=== PATIENT | female | born 1975 | race Caucasian/White ===

== ENCOUNTER 2019-09-23 14:25 | Emergency (ER) | payer OTHER, SELFPAY ==
--- NOTE | ~2019-09-23 | XR_ITS ---
EXAMINATION: XR chest 1V portable INDICATION: Chest pain and cough TECHNIQUE: Portable AP chest at 1846 hours COMPARISON: 08/21/2019 FINDINGS: The lungs are free of acute opacities. There is no pleural effusion or pneumothorax. The ca rdiac silhouette is normal for technique. A dual-lead cardiac pacemaker of the left chest wall ends w ith leads in expected locations. IMPRESSION: 1. No acute cardiopulmonary abnormality. Reviewed, dictated and finalized at location A. RANCE OFFICER
[2019-09-23 14:37] VITALS: BP 123/66; PULSE 94; RESP 16; TEMP 36.4; O2SAT 100
--- NOTE | 2019-09-23 16:01 | ED.URI ---
HPI - URI/Sore Throat General Chief Complaint: Upper Respiratory Infection Stated Complaint: Cough/congestion Time Seen by Provider: 09/23/19 16:01 Source: patient Mode of arrival: ambulatory Limitations: no limitations History of Present Illness HPI Narrative: A 43 y/o female presents to the ED with c/o upper CP that radiates to her right and left side of her body that began 30 minutes prior to her arrival. Pt states it feels like an elephant is sitting on my chest. Pt was seen in the ED for the same complaints on 08/21/2019 but her pain now is worse. 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 Pt notes that she has a PSHx of pacemaker placement 5 years ago after pt had an episode in April 2015 where her heartbeat dropped below 25 BPM and she went unconscious. Pt states that she has had a cough for 5 years since her pacemaker was placed. Pt notes that she had a normal angiogram in the past. Pt also has a PMHx of a PE and is on Warfarin. She reports hot and cold flashes, but denies smoking, alcohol use, and drug use. Pt's LNMP was Thursday (4 days ago). Pt also c/o SI stating that she wants to hurt herself with whatever I can get a hold of like pills. Pt does not see a psychiatrist. Pt was seen in 2005 at [place] for SI and has also been seen at [facility]. Related Data Home Medications Medication Instructions Recorded Confirmed alprazolam 1 mg PO TID 06/15/19 06/15/19 gabapentin 600 mg PO TID 06/15/19 06/15/19 lisinopril 20 mg PO DAILY 06/15/19 06/15/19 oxycodone-acetaminophen 1 tablet PO TID 06/15/19 06/15/19 albuterol sulfate [ProAir HFA] INHALATION 08/21/19 atorvastatin 20 mg PO DAILY 08/21/19 gabapentin 300 mg PO TID 08/21/19 glipizide 20 mg PO BID 08/21/19 omeprazole 20 mg PO DAILY 08/21/19 Allergies Allergy/AdvReac Type Severity Reaction Status Date / Time lidocaine Allergy Intermediate HIVES Verified 08/21/19 10:23 nitroglycerin Allergy Intermediate HIVES Verified 08/21/19 10:23 aspirin Allergy Mild Hives Verified 08/21/19 10:23 ibuprofen Allergy Mild Hives Verified 08/21/19 10:23 Penicillins Allergy Mild HIVES PER Verified 08/21/19 10:23 UNCODED ALLERGIES 08/27/12 tramadol Allergy Mild Hives Verified 08/21/19 10:23 doxycycline Allergy Unknown Hives Verified 08/21/19 10:23 meloxicam Allergy Unknown HIVES Verified 08/21/19 10:23 Sulfa (Sulfonamide Allergy Unknown HIVES PER Verified 08/21/19 10:23 Antibiotics) UNCODED ALLERGIES 08/27/12 sulfamethoxazole Allergy Unknown Hives Verified 08/21/19 10:23 trimethoprim Allergy Unknown Hives Verified 08/21/19 10:23 adhesive AdvReac Unknown SILK TAPE= Verified 08/21/19 10:23 HIVES CITALOPRAM HYDROBROMIDE Allergy Mild RASH Uncoded 08/21/19 10:23 ESCITALOPRAM OXALATE Allergy Mild Hives Uncoded 08/21/19 10:23 PROCAINE HCL Allergy Mild Hives Uncoded 08/21/19 10:23 PROPOXYPHENE NAPSYLATE Allergy Mild RASH/HIVES Uncoded 08/21/19 10:23 [facility] Past Medical History Medical History (Updated 08/22/19 @ 00:01 by Junior Richter) Diabetes mellitus GERD (gastroesophageal reflux disease) Hyperlipidemia Obesity Pulmonary embolism Social History Social History Smoking status: Never smoker Alcohol intake: never Gender identity (if verbalized by the patient): Female Course Vital Signs Vital signs: Vital Signs Temperature 36.4 C L 09/23/19 14:37 Pulse Rate 94 09/23/19 14:37 Respiratory Rate 16 09/23/19 14:37 Blood Pressure 123/66 09/23/19 14:37 Pulse Oximetry 100 09/23/19 14:37 Temperature 36.4 C L 09/23/19 14:37 Pulse Rate 94 09/23/19 14:37 Respiratory Rate 16 09/23/19 14:37 Blood Pressure 123/66 09/23/19 14:37 Pulse Oximetry 100 09/23/19 14:37 Discharge Plan Discharge Prescriptions: No Action alprazolam 1 mg tablet 1 mg PO TID RF: 0 lisinopril 20 mg tablet 20 mg PO DAILY RF: 0 oxycodone-acetaminophen 5-325 mg tablet
--- NOTE | 2019-09-23 16:11 | ECG_ITS ---
Measurements Intervals [place] Rate: 84 P: 54 NC: 152 QRS: 19 QRSD: 94 T: 17 QT: 348 QTc: 412 Interpretive Statements SINUS RHYTHM BORDERLINE R WAVE PROGRESSION, ANTERIOR LEADS BASELINE ARTIFACT- I, II, III, V6 BORDERLINE ECG Electronically Signed On 09-23-2019 17:17:37 WAREHOUSE CLERK by Kalin Castorena D.O.
--- NOTE | 2019-09-23 16:24 | ED.CHESTPAIN ---
HPI - Chest Pain General Chief Complaint: Psychiatric Symptoms <Keyla Kenny MD - Last Filed: 09/24/19 18:19> Stated Complaint: Cough/congestion <Keyla Kenny MD - Last Filed: 09/24/19 18:19> Time Seen by Provider: 09/23/19 16:01 <Keyla Kenny MD - Last Filed: 09/24/19 18:19> Source: patient <Keyla Kenny MD - Last Filed: 09/24/19 18:19> Mode of arrival: ambulatory <Keyla Kenny MD - Last Filed: 09/24/19 18:19> Limitations: no limitations <Keyla Kenny MD - Last Filed: 09/24/19 18:19> History of Present Illness HPI narrative: A 43 y/o female presents to the ED with c/o upper CP that radiates to her right and left side of her body that began 30 minutes prior to her arrival. Pt states it feels like an elephant is sitting on my chest. Pt was seen in the ED for the same complaints on 08/21/2019 but her pain now is worse. 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 Pt notes that she has a PSHx of pacemaker placement 5 years ago after pt had an episode in April 2015 where her heartbeat dropped below 25 BPM and she went unconscious. Pt states that she has had a cough for 5 years since her pacemaker was placed. Pt notes that she had a normal angiogram in the past. Pt also has a PMHx of a PE and is on Warfarin. She reports hot and cold flashes, but denies smoking, alcohol use, and drug use. Pt's LNMP was Thursday (4 days ago). Pt also c/o SI stating that she wants to hurt herself with whatever I can get a hold of like pills. Pt does not see a psychiatrist. Pt was seen in 2005 at [place] for SI and has also been seen at [facility]. <Keyla Kenny MD - Last Filed: 09/24/19 18:19> Pertinent past history: other (pacemaker) <Keyla Kenny MD - Last Filed: 09/24/19 18:19> Pain location: other (upper) <Keyla Kenny MD - Last Filed: 09/24/19 18:19> Pain radiation: other (right and left side of body) <Keyla Kenny MD - Last Filed: 09/24/19 18:19> Related Data Home Medications: Home Medications Medication Instructions Recorded Confirmed alprazolam 1 mg PO TID 06/15/19 06/15/19 gabapentin 600 mg PO TID 06/15/19 06/15/19 lisinopril 20 mg PO DAILY 06/15/19 06/15/19 oxycodone-acetaminophen 1 tablet PO TID 06/15/19 06/15/19 albuterol sulfate [ProAir HFA] INHALATION 08/21/19 atorvastatin 20 mg PO DAILY 08/21/19 gabapentin 300 mg PO TID 08/21/19 glipizide 20 mg PO BID 08/21/19 omeprazole 20 mg PO DAILY 08/21/19 sitagliptin [Januvia] 100 mg PO BID 09/24/19 <Keyla Kenny MD - Last Filed: 09/24/19 18:19> Allergies/Adverse Reactions: Allergies Allergy/AdvReac Type Severity Reaction Status Date / Time lidocaine Allergy Intermediate HIVES Verified 09/23/19 16:28 nitroglycerin Allergy Intermediate HIVES Verified 09/23/19 16:28 aspirin Allergy Mild Hives Verified 09/23/19 16:28 ibuprofen Allergy Mild Hives Verified 09/23/19 16:28 Penicillins Allergy Mild HIVES PER Verified 09/23/19 16:28 UNCODED ALLERGIES 08/27/12 tramadol Allergy Mild Hives Verified 09/23/19 16:28 doxycycline Allergy Unknown Hives Verified 09/23/19 16:28 meloxicam Allergy Unknown HIVES Verified 09/23/19 16:28 Sulfa (Sulfonamide Allergy Unknown HIVES PER Verified 09/23/19 16:28 Antibiotics) UNCODED ALLERGIES 08/27/12 sulfamethoxazole Allergy Unknown Hives Verified 09/23/19 16:28 trimethoprim Allergy Unknown Hives Verified 09/23/19 16:28 adhesive AdvReac Unknown SILK TAPE= Verified 09/23/19 16:28 HIVES CITALOPRAM HYDROBROMIDE Allergy Mild RASH Uncoded 08/21/19 10:23 ESCITALOPRAM OXALATE Allergy Mild Hives Uncoded 08/21/19 10:23 PROCAINE HCL Allergy Mild Hives Uncoded 08/21/19 10:23 PROPOXYPHENE NAPSYLATE Allergy Mild RASH/HIVES Uncoded 08/21/19 10:23 <Keyla Kenny MD - Last Filed: 09/24/19 18:19> Review of Systems Review of Systems: All systems reviewed & are unremarkable except as noted in HPI and below <Jm
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
[2019-09-23 17:14] LABS: Basophils Absolute Auto 0.1 K/mm3 (0.0-0.1); Basophils Percent Auto 0.7 % (0.2-1.2); Eosinophils Absolute Auto 0.2 K/mm3 (0-0.3); Eosinophils Percent Auto 2.2 % (0-4.4); Hematocrit 44.7 % (37.0-47.0); Hemoglobin 14.6 g/dL (12.0-15.0); Immature Granulocyte Absolute 0.04 K/mm3 (0.00-0.031); Immature Granulocyte Percent A 0.6 % (0-0.5); Lymphocytes Absolute Auto 1.78 K/mm3 (0.9-3.2); Lymphocytes Percent Auto 24.5 % (18.3-44.2); Mean Corpuscular HGB Conc 32.7 g/dl (32-36); Mean Corpuscular Hemoglobin 28.7 pg (26-34); Mean Corpuscular Volume 87.8 fl (80-100); Mean Platelet Volume 10.9 fl (7.4-10.4); Monocytes Absolute Auto 0.4 K/mm3 (0.1-0.6); Monocytes Percent Auto 5.1 % (2.6-8.5); Neutrophils Absolute Auto 4.9 K/mm3 (1.3-6.7); Neutrophils Percent Auto 66.9 % (45.5-73.1); Platelet Count Result 295 k/mm3 (150-375); Red Blood Count 5.09 M/mm3 (4.2-5.4); Red Cell Distribution Width 12.9 % (11.5-14.5); White Blood Count 7.3 K/mm3 (4.5-10.0)
--- NOTE | 2019-09-23 17:15 | PC.NURSE ---
met with pt to asses situation. pt says she has SI with a plan to overdose on pills if he had them no access to pills pt noted to be malingering and loitering around the hospital prior to arrival to ED.
[2019-09-23 17:28] LABS: Alanine Aminotransferase 15 U/L (4-35); Albumin Level 4.2 g/dL (3.5-5.1); Alkaline Phosphatase 81 U/L (38-126); Aspartate Amino Transferase 17 U/L (14-36); Bilirubin,Total 0.3 mg/dL (0.2-1.3); Blood Urea Nitrogen 26 mg/dL (7-17); Calcium 9.9 mg/dL (8.4-10.2); Carbon Dioxide 25 mmol/L (22-30); Chloride 96 mmol/L (98-107); Estimated Glomerular Filt Rate > 60; Glucose 494 mg/dL (65-105); INR 0.8; Potassium 5.1 mmol/L (3.4-5.0); Sodium 136 mmol/L (137-145)
[2019-09-23 17:29] LABS: Partial Thromboplastin Time 22.4 SECONDS (22.3-36.8)
[2019-09-23 17:40] LABS: Troponin I < 0.012 ng/mL (0.000-0.034)
[2019-09-23 17:42] LABS: Ethanol < 10 mg/dL (<10)
--- NOTE | 2019-09-23 18:15 | PC.NURSE ---
pt in room, eating dinner, no other needs at this time sitter at bedside
[2019-09-23 18:17] LABS: Amphetamine Screen Urine Negative (Negative); Barbiturate Screen Urine Negative (Negative); Benzodiazepines Screen Urine Negative (Negative); Cannabinoid Screen Urine Negative (Negative); Cocaine Screen Urine Negative (Negative); Methadone Screen Urine Negative (Negative); Opiate Screen Urine Negative (Negative); Phencyclidine Screen Urine Negative (Negative)
[2019-09-23 19:00] VITALS: BP 142/78; PULSE 88; RESP 16; O2SAT 98
[2019-09-23] MEDS: glipiZIDE 5 MG TABLET 20 MG PO (19:00)
--- NOTE | 2019-09-23 19:10 | PC.NURSE ---
lights dimmed, watching tv, no needs at this time sitter at bedside
--- NOTE | 2019-09-23 19:36 | PC.NURSE ---
called crisis [phone] they will send someone out to evaluate pt.
[2019-09-23 19:50] LABS: Troponin I < 0.012 ng/mL (0.000-0.034)
--- NOTE | 2019-09-23 20:20 | PC.NURSE ---
awaiting crisis, in room calm, asked for pain med new order for tylenol 650 mg po one time from dr vilchis
--- NOTE | 2019-09-23 20:54 | PC.NURSE ---
assumed care of the pt at 1700
[2019-09-23] MEDS: ACETAMINOPHEN 325 MG TABLET 650 MG (21:36)
--- NOTE | 2019-09-23 23:02 | PC.NURSE ---
awaiting response from [facility] labs and ekg sent to [facility] per their request. pt in room resting, chest rise and fall noted, sitter at bedside
--- NOTE | 2019-09-23 23:45 | PC.NURSE ---
Intake nurse from [facility] called to gather more information on pt.
--- NOTE | 2019-09-23 23:56 | PC.NURSE ---
Makenna at [facility] stated that Dr. Prater will not accept pt.
[2019-09-24 01:35] LABS: Glucose Point of Care 315 (65-105)
[2019-09-24 02:08] VITALS: BP 106/68; PULSE 72; RESP 18; O2SAT 99
--- NOTE | 2019-09-24 03:22 | PC.NURSE ---
assumed care of pt at this time, recieved report from melany goldstein
--- NOTE | 2019-09-24 03:26 | PC.NURSE ---
ekg done 09/23/2019 1755 prior to this rn getting here, not documented.
--- NOTE | 2019-09-24 03:29 | PC.NURSE ---
pt states she just urinated, not able to give urine sample at this time. sitter at bedside.
--- NOTE | 2019-09-24 04:27 | PC.NURSE ---
pt states she isn't able to urinate at this time. notified. sitter at bedside.
--- NOTE | 2019-09-24 05:06 | PC.NURSE ---
pt still unable to give urine sample at this time. refused straight cath.
--- NOTE | 2019-09-24 05:48 | PC.NURSE ---
[facility] called to check on pt status. this rn informed them we are waiting on pt to urinate so we can run a UA and bedside preg and then fax them over the results. pt in bed at this time. sitter at bedside. pt states she isn't able to urinate. refused straight cath.
[2019-09-24 06:00] VITALS: BP 116/82; PULSE 75; RESP 16; O2SAT 95
--- NOTE | 2019-09-24 06:42 | PC.NURSE ---
[facility] called this rn and states they don't have any beds available. notified.
--- NOTE | 2019-09-24 06:42 | PC.NURSE ---
pt in room at this time. sitter at bedside.
--- NOTE | 2019-09-24 07:03 | PC.NURSE ---
this rn called room service for tray at this time.
[2019-09-24 07:21] LABS: Glucose Point of Care 204 (65-105)
[2019-09-24] MEDS: glipiZIDE 5 MG TABLET 20 MG PO (07:44)
[2019-09-24 08:36] LABS: Add Urine Microscopic? YES; Appearance Urine Clear (Clear); Bilirubin Urine Negative (Negative); Blood Urine Negative (Negative); Color Urine Straw (Yellow); Glucose Urine UA 3+ mg/dL (Negative); Ketones Urine Negative (Negative); Leukocyte Esterase Ur Negative LEU/UL (Negative); Mucus Urine Rare /lpf; Nitrate Urine Negative (Negative); Protein Urine Negative (Negative); Specific Grav Ur 1.021 (1.001-1.035); Urobilinogen Urine Negative mg/dL (<2.0); WBC Urine 0-3 /hpf
--- NOTE | 2019-09-24 09:24 | PC.NURSE ---
[facility] notified that pt has been denied by [facility].
--- NOTE | 2019-09-24 13:07 | PC.NURSE ---
called to patients room and asked what the wait was. Patient denies suicidal or homicidal ideations at this time.
== END 2019-09-24 16:35 | disposition home or self-care (01) ==
PROVIDERS: General Practice; Emergency Provider Emergency Medicine; PCP Internal Medicine
DX: R07.89 Other chest pain (principal); R45.851 Suicidal ideations; F41.9 Anxiety disorder, unspecified; M19.90 Unspecified osteoarthritis, unspecified site; F31.9 Bipolar disorder, unspecified; J44.9 Chronic obstructive pulmonary disease, unspecified; Z86.718 Personal history of other venous thrombosis and embolism; G40.909 Epilepsy, unspecified, not intractable, without status epilepticus; K21.9 Gastro-esophageal reflux disease without esophagitis; I10 Essential (primary) hypertension; E78.5 Hyperlipidemia, unspecified; Z86.14 Personal history of Methicillin resistant Staphylococcus aureus infection; Z95.0 Presence of cardiac pacemaker; E11.42 Type 2 diabetes mellitus with diabetic polyneuropathy; E66.9 Obesity, unspecified; Z68.34 Body mass index [BMI] 34.0-34.9, adult; G47.30 Sleep apnea, unspecified; Z87.440 Personal history of urinary (tract) infections; Z96.653 Presence of artificial knee joint, bilateral; Z79.84 Long term (current) use of oral hypoglycemic drugs; R94.31 Abnormal electrocardiogram [ECG] [EKG]
CPT/HCPCS: 36415; 71045; 80053; 80307; 81001; 81025; 82948; 84443; 84484; 85025; 85610; 85730; 93005; 99284; A9270

== ENCOUNTER 2019-11-14 14:41 | Emergency (ER) | payer OTHER, SELFPAY ==
[2019-11-14 14:48] VITALS: BP 148/75; PULSE 94; RESP 18; TEMP 36.2; O2SAT 98
--- NOTE | 2019-11-14 15:06 | ED.GENADULT ---
HPI - General Adult General Chief complaint: Unspecified <SASHA Shrestha Last Filed: 11/14/19 15:21> Stated complaint: toothache on right jaw. <SASHA Shrestha Last Filed: 11/14/19 15:21> Time Seen by Provider: 11/14/19 14:55 <SASHA Shrestha Last Filed: 11/14/19 15:21> Source: patient <SASHA Shrestha Last Filed: 11/14/19 15:21> Mode of arrival: ambulatory <SASHA Shrestha Last Filed: 11/14/19 15:21> Limitations: no limitations <SASHA Shrestha Last Filed: 11/14/19 15:21> History of Present Illness HPI narrative: Patient is a 43-year-old who presents with several days duration of right lower dental pain where she has a history of decay patient denies any fever chills nausea vomiting patient notes moderate aching pain worse with eating patient took cods-hwn-nrfbrwi medications with minimal improvement and notes that she has a scheduled dental appointment in the near future <SASHA Shrestha Last Filed: 11/14/19 15:21> Related Data Home medications: Home Medications Medication Instructions Recorded Confirmed alprazolam 1 mg PO TID 06/15/19 06/15/19 gabapentin 600 mg PO TID 06/15/19 06/15/19 lisinopril 20 mg PO DAILY 06/15/19 06/15/19 oxycodone-acetaminophen 1 tablet PO TID 06/15/19 06/15/19 albuterol sulfate [ProAir HFA] INHALATION 08/21/19 atorvastatin 20 mg PO DAILY 08/21/19 gabapentin 300 mg PO TID 08/21/19 glipizide 20 mg PO BID 08/21/19 omeprazole 20 mg PO DAILY 08/21/19 sitagliptin [Januvia] 100 mg PO BID 09/24/19 <SASHA Shrestha Last Filed: 11/14/19 15:21> Allergies/adverse reactions: Allergies Allergy/AdvReac Type Severity Reaction Status Date / Time lidocaine Allergy Intermediate HIVES Verified 09/23/19 16:28 nitroglycerin Allergy Intermediate HIVES Verified 09/23/19 16:28 aspirin Allergy Mild Hives Verified 09/23/19 16:28 ibuprofen Allergy Mild Hives Verified 09/23/19 16:28 Penicillins Allergy Mild HIVES PER Verified 09/23/19 16:28 UNCODED ALLERGIES 08/27/12 tramadol Allergy Mild Hives Verified 09/23/19 16:28 doxycycline Allergy Unknown Hives Verified 09/23/19 16:28 meloxicam Allergy Unknown HIVES Verified 09/23/19 16:28 Sulfa (Sulfonamide Allergy Unknown HIVES PER Verified 09/23/19 16:28 Antibiotics) UNCODED ALLERGIES 08/27/12 sulfamethoxazole Allergy Unknown Hives Verified 09/23/19 16:28 trimethoprim Allergy Unknown Hives Verified 09/23/19 16:28 adhesive AdvReac Unknown SILK TAPE= Verified 09/23/19 16:28 HIVES CITALOPRAM HYDROBROMIDE Allergy Mild RASH Uncoded 08/21/19 10:23 ESCITALOPRAM OXALATE Allergy Mild Hives Uncoded 08/21/19 10:23 PROCAINE HCL Allergy Mild Hives Uncoded 08/21/19 10:23 PROPOXYPHENE NAPSYLATE Allergy Mild RASH/HIVES Uncoded 08/21/19 10:23 <Gregorio Austin PA-C - Last Filed: 11/14/19 15:21> Review of Systems Review of Systems: All systems reviewed & are unremarkable except as noted in HPI and below <Gregorio Austin PA-C - Last Filed: 11/14/19 15:21> PMFSH Past Medical History Medical History: Medical History Anemia Anxiety Arthritis Asthma Bipolar disorder COPD (chronic obstructive pulmonary disease) Depression Diabetes mellitus DVT (deep venous thrombosis) Eczema Epilepsy Foot fracture, right GERD (gastroesophageal reflux disease) Herniated disc HTN (hypertension) Hyperlipidemia MRSA (methicillin resistant staph aureus) culture positive Obesity Pacemaker Peripheral neuropathy Pulmonary embolism Seizures Sleep apnea Suicide attempt Ulcer UTI (urinary tract infection) <Gregorio Austin PA-C - Last Filed: 11/14/19 15:21> Social History Social History: Social History Smoking status: Former smoker Alcohol intake: never Substance use: former Gender identity (if verbalized b
[2019-11-14 15:27] VITALS: BP 129/78; PULSE 78; RESP 18; O2SAT 96
== END 2019-11-14 15:28 | disposition home or self-care (01) ==
PROVIDERS: Emergency Provider General Practice; PCP Internal Medicine
DX: K08.89 Other specified disorders of teeth and supporting structures (principal); E11.42 Type 2 diabetes mellitus with diabetic polyneuropathy; J44.9 Chronic obstructive pulmonary disease, unspecified; G40.909 Epilepsy, unspecified, not intractable, without status epilepticus; I10 Essential (primary) hypertension; E78.5 Hyperlipidemia, unspecified; K21.9 Gastro-esophageal reflux disease without esophagitis; G47.30 Sleep apnea, unspecified; F31.9 Bipolar disorder, unspecified; F41.9 Anxiety disorder, unspecified; Z86.14 Personal history of Methicillin resistant Staphylococcus aureus infection; M19.90 Unspecified osteoarthritis, unspecified site; Z86.718 Personal history of other venous thrombosis and embolism; Z95.0 Presence of cardiac pacemaker; Z86.711 Personal history of pulmonary embolism; Z87.440 Personal history of urinary (tract) infections; Z86.2 Personal history of diseases of the blood and blood-forming organs and certain disorders involving the immune mechanism; Z87.891 Personal history of nicotine dependence; E66.9 Obesity, unspecified; Z68.35 Body mass index [BMI] 35.0-35.9, adult; Z79.84 Long term (current) use of oral hypoglycemic drugs
CPT/HCPCS: 99283

== ENCOUNTER 2020-01-05 15:15 | Emergency (ER) | payer OTHER, SELFPAY ==
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
[2020-01-05 15:16] VITALS: BP 136/80; PULSE 94; RESP 16; TEMP 37; O2SAT 98
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
[2020-01-05] MEDS: ACETAMINOPHEN 500 MG TABLET 1000 MG PO (15:39)
[2020-01-05] MEDS: DIAZEPAM 5 MG TABLET PO (15:39)
== END 2020-01-05 17:34 | disposition home or self-care (01) ==
PROVIDERS: Emergency Provider Emergency Medicine; PCP Internal Medicine
DX: S16.1XXA Strain of muscle, fascia and tendon at neck level, initial encounter (principal); S39.012A Strain of muscle, fascia and tendon of lower back, initial encounter; Z79.84 Long term (current) use of oral hypoglycemic drugs; E11.42 Type 2 diabetes mellitus with diabetic polyneuropathy; I10 Essential (primary) hypertension; F41.9 Anxiety disorder, unspecified; F31.9 Bipolar disorder, unspecified; J45.909 Unspecified asthma, uncomplicated; Z96.653 Presence of artificial knee joint, bilateral; Z87.891 Personal history of nicotine dependence; V63.6XXA Passenger in heavy transport vehicle injured in collision with car, pick-up truck or van in traffic accident, initial encounter
CPT/HCPCS: 99284; 72100; 72125; A9270

== ENCOUNTER 2020-01-20 14:58 | Emergency (ER) | payer OTHER, SELFPAY ==
--- NOTE | ~2020-01-20 | CT_ITS ---
EXAMINATION: CT lumbar spine wo con DATE: 01/20/2020 17:09 INDICATION: Low back pain. TECHNIQUE: Computed tomography (CT) of the lumbar spine was performed without intravenous contrast. A utomated exposure control and iterative reconstruction technique were employed. The dose-length produ ct was 1075.63 mGy-cm. COMPARISON: CT abdomen and pelvis 06/15/2019, lumbar spine radiographs 01/05/2020 FINDINGS: Bone alignment is normal. There are Schmorl's nodes of the superior endplates of T12-L3. In tervertebral disc heights are normal. The osseous central spinal canal is developmentally small from L2 to L4. The following disc levels are specifically discussed: L1-L2: The disc does not extend beyond the endplate margin. There is mild bilateral facet joint osteo arthritis. There is no neural foraminal stenosis. There is no central canal stenosis. L2-L3: The disc is bulging. There is mild bilateral facet joint osteoarthritis. There is mild bilater al neural foraminal stenosis. There is mild central canal stenosis. L3-L4: The disc is bulging. There is mild bilateral facet joint osteoarthritis. There is mild bilater al neural foraminal stenosis. There is mild central canal stenosis. L4-L5: The disc is bulging. There is mild bilateral facet joint osteoarthritis. There is mild left ne ural foraminal stenosis. There is no central canal stenosis. L5-S1: The disc is bulging. There is mild bilateral facet joint osteoarthritis. There is mild left ne ural foraminal stenosis. There is mild central canal stenosis. IMPRESSION: 1. Mild lumbar spondylosis. Reviewed, dictated and finalized at location A. IMPRESSION: 1. Mild lumbar spondylosis.
--- NOTE | ~2020-01-20 | XR_ITS ---
EXAMINATION: XR hip LT min 3V w AP pelvis DATE: 01/20/2020 17:20 INDICATION: Left hip pain. TECHNIQUE: An anteroposterior view of the pelvis and 3 views of left hip were obtained. COMPARISON: None. FINDINGS: Bone alignment is normal. No fracture. There is mild osteoarthritis of the hips. IMPRESSION: 1. Mild osteoarthritis of the hips. Reviewed, dictated and finalized at location A.
[2020-01-20 15:07] VITALS: BP 151/90; PULSE 80; TEMP 36.8; O2SAT 99
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
[2020-01-20] MEDS: ACETAMINOPHEN 500 MG TABLET 1000 MG PO (17:22)
== END 2020-01-20 18:44 | disposition home or self-care (01) ==
PROVIDERS: Emergency Provider Emergency Medicine; PCP Internal Medicine
DX: S39.012A Strain of muscle, fascia and tendon of lower back, initial encounter (principal); E11.42 Type 2 diabetes mellitus with diabetic polyneuropathy; J44.9 Chronic obstructive pulmonary disease, unspecified; Z86.718 Personal history of other venous thrombosis and embolism; K21.9 Gastro-esophageal reflux disease without esophagitis; I10 Essential (primary) hypertension; E78.5 Hyperlipidemia, unspecified; G47.30 Sleep apnea, unspecified; F41.9 Anxiety disorder, unspecified; F31.9 Bipolar disorder, unspecified; E66.9 Obesity, unspecified; Z68.34 Body mass index [BMI] 34.0-34.9, adult; G40.909 Epilepsy, unspecified, not intractable, without status epilepticus; Z86.14 Personal history of Methicillin resistant Staphylococcus aureus infection; Z79.84 Long term (current) use of oral hypoglycemic drugs; Z87.440 Personal history of urinary (tract) infections; Z95.0 Presence of cardiac pacemaker; Z86.711 Personal history of pulmonary embolism; Z96.653 Presence of artificial knee joint, bilateral; Z87.891 Personal history of nicotine dependence; M47.816 Spondylosis without myelopathy or radiculopathy, lumbar region; M16.0 Bilateral primary osteoarthritis of hip; V63.6XXA Passenger in heavy transport vehicle injured in collision with car, pick-up truck or van in traffic accident, initial encounter
CPT/HCPCS: 72131; 73502; 96372; 99284; A9270; J3360

== ENCOUNTER 2020-02-12 16:03 | Inpatient (IN) | payer OTHER, SELFPAY ==
[2020-02-12] VITALS (11 sets, daily range): BP systolic 100–143; BP diastolic 54–87; PULSE 72–91; RESP 15–22; TEMP 36.6–36.8; O2SAT 97–99; BMI 34.7
--- NOTE | ~2020-02-12 | NM_ITS ---
EXAMINATION: NM pulmonary perfusion DATE: 02/13/2020 11:56 INDICATION: Dyspnea. Prior pulmonary embolism. TECHNIQUE: 5.5 mCi Tc-99m MAA by intravenous route. Scintigraphic images of the chest were obtained . COMPARISON: FINDINGS: There is relatively homogeneous perfusion throughout the lungs with no discrete perfusion defects. IMPRESSION: 1. Normal study. Reviewed, dictated and finalized at location A. IMPRESSION: 1. Normal study.
--- NOTE | ~2020-02-12 | XR_ITS ---
XR chest 1V portable DATE: 02/12/2020 17:29 INDICATION: Chest pain. TECHNIQUE: Portable upright AP chest on 02/12/2020 at 1722 hours COMPARISON: 09/23/2019 portable AP chest FINDINGS: Left-sided pacemaker with leads overlying right atrium and right ventricle. Heart size is not optimally evaluated on AP projection because of magnification. The lungs are clear of infiltrate or consolidation. No pleural effusion or pulmonary vascular congestion or pneumothorax. IMPRESSION: Left-sided pacemaker device No active pulmonary disease Reviewed, dictated and finalized at location A.
--- NOTE | ~2020-02-12 | US_ITS ---
EXAMINATION: US carotid duplex BI DATE: 02/16/2020 16:47 INDICATION: Ataxia TECHNIQUE: Grayscale, color Doppler, and pulsed Doppler images of the cervical carotid arteries were obtained. The degree of vessel stenosis is placed in one of the following categories: normal, <50%, 5 0-69%, >=70% but less than near-occlusion, near-occlusion, or total occlusion. Note that percent sten osis relative to normal distal artery lumen diameter is indirectly measured from velocity measurement s as described by Gerardo, et al. Radiology 2003; 229:340-346. Notes: Normal: Peak systolic velocity <125 centimeters/sec and no plaque <50%. Peak systolic velocity <125 ( EDV <40; ICA/CCA PSV ratio <2.0; used these factors only a tandem lesions or low cardiac output or co ntralateral disease) 50-69 %: PSV 125-230 (EDV 40-100; ratio 2-4) >= 70% but less than near occlusion: PSV greater than 230 (EDV > 100; ratio> 4.0) Near Occlusion: PSV that is variable; markedly narrowed lumen Occlusion: Absent flow on color/spectral Doppler and no lumen on maguire scale. COMPARISON: None. FINDINGS: RIGHT: The right common carotid artery (CCA) peak systolic velocity (PSV) is 70 cm/s. The right internal car otid artery (ICA) PSV is 73 cm/s. The right ICA end-diastolic velocity (EDV) is 19 cm/s. The right IC A/CCA PSV ratio is 1. The external carotid artery (ECA) PSV is 68 cm/s. There is antegrade flow in th e right vertebral artery. LEFT: The left CCA PSV is 90 cm/s. The left ICA PSV is 79 cm/s. The left ICA EDV is 27 cm/s. The left ICA/C CA PSV ratio is 0.9. The ECA PSV is 87 cm/s. There is antegrade flow in the left vertebral artery. IMPRESSION: 1. Less than 50% stenosis in the right internal carotid artery by sonographic criteria. 2. Less than 50% stenosis in the left internal carotid artery by sonographic criteria. Reviewed, dictated and finalized at location A. IMPRESSION: 1. Less than 50% stenosis in the right internal carotid artery by sonographic jose frank. 2. Less than 50% stenosis in the left internal carotid artery by sonographic crista berry.
--- NOTE | ~2020-02-12 | CT_ITS ---
EXAMINATION: CT brain wo con DATE: 02/17/2020 13:26 INDICATION: Dizziness. TECHNIQUE: Computed tomography (CT) of the head was performed without intravenous contrast. The mA wa s adjusted according to patient size. Iterative reconstruction technique was employed. The dose-lengt h product was 605.33 mGy-cm. COMPARISON: Head CT 04/13/2019 FINDINGS: There is no intracranial hemorrhage, acute infarction, or abnormal intracranial mass lesion . The ventricles are normal in size. There is mild mucosal thickening in the ethmoid sinuses. The orb its are normal. The mastoid air cells are normal. IMPRESSION: 1. Normal brain. Reviewed, dictated and finalized at location A. IMPRESSION: 1. Normal brain.
--- NOTE | 2020-02-12 16:41 | ED.GENADULT ---
HPI - General Adult General Chief complaint: Chest Pain <Gerardo Lawrence MD - Last Filed: 02/21/20 14:53> Stated complaint: cp/abd pain/diarrhea <Gerardo Lawrence MD - Last Filed: 02/21/20 14:53> Time Seen by Provider: 02/12/20 16:26 <Gerardo Lawrence MD - Last Filed: 02/21/20 14:53> History of Present Illness HPI narrative: She reports that she is falling apart . Shortly before coming in she developed chest pain, abdominal pain, nausea, vomiting, diarrhea. She has been seen with similar complaints on a number of occasions. She also c/o a spider bite on her left heal. <Gerardo Lawrence MD - Last Filed: 02/21/20 14:53> Related Data Home medications: Home Medications Medication Instructions Recorded Confirmed lisinopril 20 mg PO DAILY 06/15/19 02/12/20 albuterol sulfate [ProAir HFA] 2 puff INHALATION Q4H PRN 08/21/19 02/12/20 atorvastatin 20 mg PO DAILY 08/21/19 02/12/20 glipizide 10 mg PO DAILY 08/21/19 02/12/20 omeprazole 20 mg PO DAILY 08/21/19 02/12/20 Januvia 100 mg PO DAILY 09/24/19 02/12/20 fluticasone propionate 1 spray INTRANASAL BID 02/12/20 02/12/20 gabapentin 800 mg PO QID 02/12/20 02/12/20 glycopyrrolate 1 mg PO DAILY PRN 02/12/20 02/12/20 pioglitazone 30 mg PO DAILY 02/12/20 02/12/20 levetiracetam [Keppra] 500 mg PO BID 02/14/20 02/14/20 <Gerardo Lawrence MD - Last Filed: 02/21/20 14:53> Allergies/adverse reactions: Allergies Allergy/AdvReac Type Severity Reaction Status Date / Time lidocaine Allergy Intermediate HIVES Verified 02/12/20 16:20 nitroglycerin Allergy Intermediate HIVES Verified 02/12/20 16:20 aspirin Allergy Mild Hives Verified 02/12/20 16:20 citalopram Allergy Mild Rash Verified 02/15/20 20:35 escitalopram Allergy Mild Hives Verified 02/15/20 20:38 ibuprofen Allergy Mild Hives Verified 02/12/20 16:20 Penicillins Allergy Mild HIVES PER Verified 02/12/20 16:20 UNCODED ALLERGIES 08/27/12 procaine Allergy Mild Hives Verified 02/15/20 20:39 propoxyphene Allergy Mild Hives Verified 02/15/20 20:41 tramadol Allergy Mild Hives Verified 02/12/20 16:20 doxycycline Allergy Unknown Hives Verified 02/12/20 16:20 meloxicam Allergy Unknown HIVES Verified 02/12/20 16:20 Sulfa (Sulfonamide Allergy Unknown HIVES PER Verified 02/12/20 16:20 Antibiotics) UNCODED ALLERGIES 08/27/12 sulfamethoxazole Allergy Unknown Hives Verified 02/12/20 16:20 trimethoprim Allergy Unknown Hives Verified 02/12/20 16:20 adhesive AdvReac Unknown SILK TAPE= Verified 02/12/20 16:20 HIVES <Gerardo Lawrence MD - Last Filed: 02/21/20 14:53> Review of Systems Review of Systems: All systems reviewed & are unremarkable except as noted in HPI and below <Gerardo Lawrence MD - Last Filed: 02/21/20 14:53> Constitutional: Constitutional: Denies fever(s) <Gerardo Lawrence MD - Last Filed: 02/21/20 14:53> Cardiovascular: Cardiovascular: Reports chest pain and Denies radiating jaw, neck or arm pain <Gerardo Lawrence MD - Last Filed: 02/21/20 14:53> Respiratory: Respiratory: Reports dyspnea <Gerardo Lawrence MD - Last Filed: 02/21/20 14:53> Gastrointestinal: Gastrointestinal: Reports abdominal pain, Reports diarrhea, Reports nausea and Reports vomiting <Gerardo Lawrence MD - Last Filed: 02/21/20 14:53> Genitourinary: Genitourinary: Reports dysuria <Gerardo Lawrence MD - Last Filed: 02/21/20 14:53> Neurologic: Reports weakness <Gerardo Lawrence MD - Last Filed: 02/21/20 14:53> PMFSH Past Medical History Medical History: Medical History Anemia Anxiety Arthritis Asthma Bipolar disorder COPD (chronic obstructive pulmonary disease) Depression Diabetes mellitus DVT (deep venous thrombosis) Eczema Epilepsy Foot fracture, right GERD (gastroesophageal reflux disease) Herniated disc HTN (hypertension) Hyperlipidemia MRSA (methicillin resistant staph aureus) culture
[2020-02-12] MEDS: CLINDAMYCIN HCL 150 MG CAP 300 MG PO (17:00)
[2020-02-12 17:51] LABS: Basophils Percent Auto 0.3 % (0.2-1.2); Eosinophils Absolute Auto 0.3 K/mm3 (0-0.3); Eosinophils Percent Auto 1.8 % (0-4.4); Hematocrit 42.7 % (37.0-47.0); Hemoglobin 14.4 g/dL (12.0-15.0); Immature Granulocyte Absolute 0.07 K/mm3 (0.00-0.031); Immature Granulocyte Percent A 0.5 % (0-0.5); Lymphocytes Absolute Auto 1.84 K/mm3 (0.9-3.2); Lymphocytes Percent Auto 13.2 % (18.3-44.2); Mean Corpuscular HGB Conc 33.7 g/dl (32-36); Mean Corpuscular Hemoglobin 28.8 pg (26-34); Mean Corpuscular Volume 85.4 fl (80-100); Monocytes Absolute Auto 0.9 K/mm3 (0.1-0.6); Monocytes Percent Auto 6.2 % (2.6-8.5); Neutrophils Absolute Auto 10.9 K/mm3 (1.3-6.7); Platelet Count Result 255 k/mm3 (150-375)
[2020-02-12 17:59] LABS: INR 0.9; Prothrombin Time 11.3 Seconds (11.1-14.7)
[2020-02-12 18:00] LABS: Partial Thromboplastin Time 21.1 SECONDS (22.3-36.8)
[2020-02-12 18:06] LABS: Alanine Aminotransferase 13 U/L (4-35); Albumin Level 3.9 g/dL (3.5-5.1); Alkaline Phosphatase 86 U/L (38-126); Aspartate Amino Transferase 16 U/L (14-36); Bilirubin,Total 0.2 mg/dL (0.2-1.3); Blood Urea Nitrogen 20 mg/dL (7-17); Calcium 9.2 mg/dL (8.4-10.2); Carbon Dioxide 22 mmol/L (22-30); Chloride 100 mmol/L (98-107); Estimated Glomerular Filt Rate > 60; Glucose 515 mg/dL (65-105); Lipase 101 U/L (23-300); Potassium 4.5 mmol/L (3.4-5.0); Sodium 130 mmol/L (137-145)
[2020-02-12] MEDS: LOPERAMIDE HCL 2 MG CAPSULE 4 MG PO (18:07)
[2020-02-12 18:13] LABS: Troponin I < 0.012 ng/mL (0.000-0.034)
[2020-02-12] MEDS: INSULIN HUMAN REGULAR (*BKC) 100 UNITS/ML 10 UNITS IV PUSH (18:16)
[2020-02-12] MEDS: SODIUM CHLORIDE 0.9% IV 1,000 ML 999 ML IV CONT (18:17)
[2020-02-12 19:34] LABS: Glucose Point of Care 254 (65-105)
[2020-02-12 19:35] LABS: Magnesium 1.9 mg/dL (1.6-2.3)
--- NOTE | 2020-02-12 19:37 | ECG_ITS ---
Measurements Intervals [place] Rate: 89 P: 50 MT: 155 QRS: 14 QRSD: 81 T: 24 QT: 346 QTc: 422 Interpretive Statements SINUS RHYTHM LOW QRS VOLTAGE IN PRECORDIAL LEADS BASELINE ARTIFACT- I, III, AVR, AVL, AVF BORDERLINE ECG Electronically Signed On 02-12-2020 20:45:43 CDT by Kalin Castorena D.O.
[2020-02-12] MEDS: AMIODARONE 150 MG/D5W 100 ML 150 MG/100 ML BAG 600 MG IV CONT (19:45)
--- NOTE | 2020-02-12 19:54 | PC.NURSE ---
PT STATES SHE THINKS HER PACER IS METRONIC. ATTEMPTED TO INTERROGATE, UNABLE TO FIND HER DEVICE. STATES SHE DOES NOT HAVE HER PACER CARD. DR RAE NOTIFIED
[2020-02-12] MEDS: AMIODARONE 360 MG/D5W 200 ML 360 MG/200 ML BAG 33.3 MG IV CONT (20:02)
[2020-02-12] MEDS: ENOXAPARIN 80 MG/0.8 ML SYRINGE 79 MG SUB-Q (20:03)
--- NOTE | 2020-02-12 20:47 | PC.NURSE ---
PT HAD A SHORT RUN OF VTACH. ALERT AND ORIENTED ASYMPTOMATIC. DR RAE NOTIFIED
[2020-02-12 20:51] LABS: Troponin I < 0.012 ng/mL (0.000-0.034)
--- NOTE | 2020-02-12 21:25 | PM.IMHP ---
H&P: HPI History of Present Illness Chief complaint: Chest pain, abd pain, diarrhea Narrative: This is a 44 year old morbidly obese Diabetic female on chronic coumadin therapy secondary to pulmonary emboli who presented to the hospital today with a complaint of chest pain while sitting at her friends house. She also complains of having abdominal cramping today with associated diarrhea, nausea, and vomiting. The patient claims she has been taking her medications as prescribed. Today she also reports a sore on her left heal which she believes is secondary to a spider bite. While in the ER the patient had several runs of Vtach on telemetry. The patient is known to have a pacemaker that was placed secondary to bradycardia. She was also found to have an elevated blood glucose of 151. Her INR came back at 0.9. Cardiology was consulted by ER provider and Amiodarone was started. She also received a dose of clindamycin. She is complaining of diffuse body aches. She denies any fevers, chills, shortness of breath, dysuria, hematuria, rectal bleeding or worsening LE swelling. No other complaints. Review of Systems Review of Systems: All systems reviewed & are unremarkable except as noted in HPI and below PMFSH Past Medical History Medical History Anemia Anxiety Arthritis Asthma Bipolar disorder COPD (chronic obstructive pulmonary disease) Depression Diabetes mellitus DVT (deep venous thrombosis) Eczema Epilepsy Foot fracture, right GERD (gastroesophageal reflux disease) Herniated disc HTN (hypertension) Hyperlipidemia MRSA (methicillin resistant staph aureus) culture positive Obesity Pacemaker Peripheral neuropathy Pulmonary embolism Seizures Sleep apnea Suicide attempt Ulcer UTI (urinary tract infection) Surgical History Surgical History History of bilateral knee replacement History of cholecystectomy Family History Family History Mother Heart disease Acute myocardial infarction Uterine cancer Social History Social History Smoking packs per day: 2.5 Smoking cigarettes per day: 50.0 Years smoked: 9 Smoking pack-years: 22.50 Smoking status: Former smoker Tobacco type: cigarettes Second hand tobacco smoke exposure: Yes Alcohol intake: never Substance use: never Gender identity (if verbalized by the patient): Female Spiritual care concerns: Yes (Father Adriano (anglican)) Meds Home Medications and Allergies Home Medications Medication Instructions Recorded Confirmed Type alprazolam 1 mg PO TID PRN 06/15/19 02/12/20 History lisinopril 20 mg PO DAILY 06/15/19 02/12/20 History oxycodone-acetaminophen 1 tablet PO TID PRN 06/15/19 02/12/20 History albuterol sulfate [ProAir HFA] 2 puff INHALATION Q4H PRN 08/21/19 02/12/20 History atorvastatin 20 mg PO DAILY 08/21/19 02/12/20 History glipizide 10 mg PO DAILY 08/21/19 02/12/20 History omeprazole 20 mg PO DAILY 08/21/19 02/12/20 History sitagliptin [Januvia] 100 mg PO DAILY 09/24/19 02/12/20 History acetaminophen 500 mg PO Q4-6H PRN #7 tablet 11/14/19 02/12/20 Rx clindamycin HCl 150 mg PO Q8H 10 Days #30 cap 11/14/19 02/12/20 Rx fluticasone propionate 1 spray INTRANASAL BID 02/12/20 02/12/20 History gabapentin 400 mg PO TID 02/12/20 02/12/20 History gabapentin 800 mg PO QID 02/12/20 02/12/20 History glycopyrrolate 1 mg PO DAILY PRN 02/12/20 02/12/20 History pioglitazone 30 mg PO DAILY 02/12/20 02/12/20 History topiramate 100 mg PO DAILY 02/12/20 02/12/20 History warfarin 7.5 mg PO DAILY 02/12/20 02/12/20 History Allergies Allergy/AdvReac Type Severity Reaction Status Date / Time lidocaine Allergy Intermediate HIVES Verified 02/12/20 16:20 nitroglycerin Allergy Intermediate HIVES Verified 02/12/20 16:20 aspirin Allergy Mild Hives Verified 02/11
[2020-02-12 22:17] LABS: Glucose Point of Care 259 (65-105)
--- NOTE | 2020-02-12 22:21 | ADMGEN ---
This patient, Valerie Nguyen, was admitted to Intensive Care Unit-7 on 02/12/2020 at 2155. Patient/family oriented to hospital policies and general routines including ID bracelet, bed and alarms, visiting hours, pain management, procedures, bathroom and other care routines, personal items, smoking policy, room service/diet, and visiting hours. Valuables list has been completed. Information on how to activate the Rapid Response Team has been discussed. Patient/Family are encouraged to report perceived risks to care and to ask questions if they do not understand what they are told or what they should do.
[2020-02-12] MEDS: SODIUM CHLORIDE 0.9% IV 1,000 ML 125 ML IV CONT (22:52)
[2020-02-12 23:52] LABS: Troponin I < 0.012 ng/mL (0.000-0.034)
[2020-02-13] VITALS (13 sets, daily range): BP systolic 98–141; BP diastolic 53–76; PULSE 70–78; RESP 12–18; TEMP 36.4–37.2; O2SAT 97–99
--- NOTE | 2020-02-13 01:32 | PC.NURSE ---
Patient noted to be in asystole on groundskeeping maintenance at 0122. Found to have removed all electrode stickers as well as defibrillator pads and was standing at the bedside. Patient teaching on fall precautions and no ambulation without assistance reinforced. distribution driver and defib pads reapplied. Patient assisted onto commode and then back to bed.
[2020-02-13 01:59] LABS: Add Urine Microscopic? YES; Appearance Urine Clear (Clear); Bacteria Urine Trace /hpf; Bilirubin Urine Negative (Negative); Blood Urine 3+ (Negative); Color Urine Straw (Yellow); Glucose Urine UA 3+ mg/dL (Negative); Ketones Urine Negative (Negative); Leukocyte Esterase Ur Trace LEU/UL (Negative); Mucus Urine Rare /lpf; Nitrate Urine Negative (Negative); Protein Urine Negative (Negative); Squamous Epithelial Cell Urine Few /hpf (Few); Urobilinogen Urine Negative mg/dL (<2.0); WBC Urine 16-20 /hpf
[2020-02-13 02:00] LABS: Specific Grav Ur 1.031 (1.001-1.035)
[2020-02-13] MEDS: AMIODARONE 360 MG/D5W 200 ML 360 MG/200 ML BAG 16.7 MG IV CONT ×2 (02:00→12:05)
[2020-02-13 03:01] LABS: Blood Urea Nitrogen 18 mg/dL (7-17); Calcium 7.8 mg/dL (8.4-10.2); Carbon Dioxide 21 mmol/L (22-30); Chloride 103 mmol/L (98-107); Estimated Glomerular Filt Rate > 60; Glucose 399 mg/dL (65-105); Potassium 3.6 mmol/L (3.4-5.0); Sodium 132 mmol/L (137-145)
[2020-02-13 03:02] LABS: Basophils Percent Auto 0.3 % (0.2-1.2); Eosinophils Absolute Auto 0.3 K/mm3 (0-0.3); Eosinophils Percent Auto 3.7 % (0-4.4); Hematocrit 36.7 % (37.0-47.0); Hemoglobin 12.2 g/dL (12.0-15.0); Immature Granulocyte Absolute 0.04 K/mm3 (0.00-0.031); Immature Granulocyte Percent A 0.4 % (0-0.5); Lymphocytes Absolute Auto 2.47 K/mm3 (0.9-3.2); Lymphocytes Percent Auto 27.1 % (18.3-44.2); Mean Corpuscular HGB Conc 33.2 g/dl (32-36); Mean Corpuscular Hemoglobin 28.7 pg (26-34); Mean Corpuscular Volume 86.4 fl (80-100); Mean Platelet Volume 10.3 fl (7.4-10.4); Monocytes Absolute Auto 0.6 K/mm3 (0.1-0.6); Monocytes Percent Auto 6.1 % (2.6-8.5); Neutrophils Absolute Auto 5.7 K/mm3 (1.3-6.7); Neutrophils Percent Auto 62.4 % (45.5-73.1); Platelet Count Result 202 k/mm3 (150-375); Red Blood Count 4.25 M/mm3 (4.2-5.4); Red Cell Distribution Width 13.1 % (11.5-14.5); White Blood Count 9.1 K/mm3 (4.5-10.0)
[2020-02-13 03:12] LABS: Troponin I < 0.012 ng/mL (0.000-0.034)
[2020-02-13] MEDS: SODIUM CHLORIDE 0.9% IV 1,000 ML 125 ML IV CONT (06:22)
[2020-02-13] MEDS: INSULIN ASPART (*BKC) 100 UNITS/ML SUB-Q ×3 (08:12→17:00)
[2020-02-13] MEDS: ENOXAPARIN 80 MG/0.8 ML SYRINGE SUB-Q ×2 (08:19→20:07)
[2020-02-13 08:21] LABS: Glucose Point of Care 375 (65-105)
[2020-02-13] MEDS: POTASSIUM CHLORIDE 20 MEQ TABLET 40 MEQ PO (08:23)
[2020-02-13] MEDS: INSULIN DETEMIR 100 UNITS/ML SUB-Q (08:24)
--- NOTE | 2020-02-13 08:45 | WPDCNINT ---
Assessment and Plan Assessment and plan (1) Ventricular tachycardia: Code(s): I47.2 - Ventricular tachycardia Status: Acute Assessment and Plan: Patient presented with chest pain, nausea, vomiting. Patient was found to have runs of V-tach in the ED on the monitor, cardiology was notified and recommended starting amiodarone infusion. -patient remains on amiodarone at 0.5 mg infusion -no more V-tach episodes overnight -patient has a pacemaker which needs to be interrogated -will optimize potassium close to 4.0 (2) Chest pain: Qualifiers: Chest pain type: unspecified Qualified Code(s): R07.9 - Chest pain, unspecified Code(s): R07.9 - Chest pain, unspecified Status: Acute Assessment and Plan: Resolved -could be related to ventricular tachycardia -troponins negative x3 -patient also has history of pulmonary embolism, INR is subtherapeutic, patient started on therapeutic Lovenox. Is allergic to contrast dye therefore V/Q scan has been ordered (3) Diabetes mellitus: Qualifiers: Diabetes mellitus type: type 2 Diabetes mellitus fci insulin use: without terminologist use Diabetes mellitus complication status: without complication Qualified Code(s): E11.9 - Type 2 diabetes mellitus without complications Code(s): E11.9 - Type 2 diabetes mellitus without complications Status: Acute Assessment and Plan: Patient hyperglycemic in the ED with blood sugars of 515 -patient given IV fluids, stone sliding-scale insulin. -added detemir this morning (4) Subtherapeutic anticoagulation: Code(s): Z51.81 - Encounter for therapeutic drug level monitoring; Z79.01 - skilled nursing (current) use of anticoagulants Status: Acute Assessment and Plan: Patient on Coumadin for pulmonary embolism, INR is subtherapeutic -started on therapeutic Lovenox (5) Pressure sore on heel, left, unstageable: Code(s): L89.620 - Pressure ulcer of left heel, unstageable Status: Acute Assessment and Plan: Patient states that the wound left heel is probably an insect bite which could be a spider bite. -wound Care has been consulted and await recommendations (6) DVT prophylaxis: Code(s): Z29.9 - Encounter for prophylactic measures, unspecified Status: Acute Assessment and Plan: Therapeutic Lovenox Additional Plan Discussed with patient updated with her condition and plan of care. She is aware that cardiology will be evaluating at this morning Code status: Full code Critical care time spent: 42 minutes Due to a high probability of clinically significant, life threatening deterioration, the patient required my highest level of preparedness to intervene emergently and I personally spent this critical care time directly and personally managing the patient. This critical care time included obtaining a history; examining the patient; pulse oximetry; ordering and review of studies; arranging urgent treatment with development of a management plan; evaluation of patient's response to treatment; frequent reassessment; and discussions with other providers. It was exclusive of separately billable procedures and treating other patients and teaching time. Please see Assessment and Plan section and the rest of the note for further information on patient assessment and treatment [place] Consult Note Consult date: 02/13/20 Time Seen: 07:04 Reason for consult: Nausea, vomiting, body aches, elevated blood sugar, V-tach HPI: Valerie Nguyen is a 44 year old female with past medical history COPD, DVT, seizures, GERD, essential hypertension, asthma, arthritis, anemia, anxiety and depression, hyperlipidemia, sleep apnea, UTI presented to the ED on 02/12/2020 with complains of chest pain, nausea, abdominal pain and vomiting. Symptoms started when she was sitting at her friend's has. In the ED patient was found to have several runs of V-tach on the telemetry, also staci
[2020-02-13 09:44] LABS: Hemoglobin A1C > 14.0 % (<5.7)
[2020-02-13 12:03] LABS: Glucose Point of Care 251 (65-105)
--- NOTE | 2020-02-13 13:27 | PM.CNCAR ---
Assessment and Plan Additional Plan 44-year-old female with: Erroneous diagnosis of ventricular tachycardia. Careful review of the rhythm strips in question demonstrate sinus rhythm and sinus activity persisting through these runs of ventricular tachycardia . Since it is impossible for the heart to have 2 rhythms simultaneously it is my impression that these are artifactual in nature and not legitimate runs of ventricular tachycardia. Furthermore she had a complete cardiac workup at [place] several months ago demonstrating normal left ventricular systolic function, no evidence of coronary or valvular heart disease therefore really no substrate for these kinds of ventricular arrhythmias. I would discontinue IV amiodarone, discontinue telemetry. No further cardio workup of this is necessary Timmy Mcelroy MD [facility] History of Present Illness History of Present Illness Consult date/time: 02/13/20 13:27 Reason For Visit: Chest pain, abd pain, diarrhea Narrative: This is a 44-year-old female that I am seeing at the request of the hospitalist because of ventricular tachycardia which according to the chart occurred last evening when she was being evaluated in the emergency room. The patient came to the emergency room with a variety of clinic complaints including nausea abdominal pain diarrhea chest pain and according to the records when she was in the emergency room it was felt she was having runs of ventricular tachycardia. If she was having ventricular tachycardia she was asymptomatic with it but this triggered a call to my partner who was school transportation supervisor last night started the patient on intravenous amiodarone infusion and she was admitted into the intensive care unit. In this setting I am seeing her in consultation this afternoon. She is asymptomatic currently with respect to any cardiac complaints and does not have any other history to report from last night. She is a lady who has a history of a arrhythmias according to the record she has a chronically implanted pacemaker which was implanted by 1 of the physicians at [facility] and is followed by them. She also has a history of chest pain/arrhythmia evaluation that occurred at [facility] in September and October of this past year. Apparently she was transferred there from [place] with a concern regarding chest pain she was intoxicated with cocaine at that time. Evaluation included echocardiography as well as coronary angiography with negative findings. The patient has an EKG here at [facility] that either shows intrinsic sinus rhythm or atrial pacing but otherwise is an unremarkable electrocardiogram. The telemetry strips that were being interpreted as ventricular tachycardia are clearly sinus rhythm with motion artifact. Review of Systems Constitutional: Constitutional: Reports no additional constitutional complaints Eyes: Eyes: Reports no additional eye complaints ENT: Reports system reviewed and no additional complaints, except as documented Cardiovascular: Cardiovascular: Reports as per HPI Respiratory: Respiratory: Reports no additional respiratory complaints Gastrointestinal: Gastrointestinal: Reports as per HPI Genitourinary: Genitourinary: Reports no additional female genitourinary complaints Musculoskeletal: Musculoskeletal: Reports no additional musculoskeletal complaints Integumentary/Breasts: Skin/Breast: Reports system reviewed and no additional complaints, except as docu Neurologic: Reports system reviewed and no additional complaints, except as documented Psychiatric: Psychiatric: Reports as per HPI Endocrine: Endocrine: Reports no additional endocrine complaints Hematologic/Lymphatic: Hematologic/Lymphatic: Reports no additional hematologic/lymphatic complaints Allergic/Immunologic: Allergic/Immunologic: Reports no additional allergic/immunologic complaints [facility] Past Medical History Medical History (Reviewed 02/13/20 @ 06:
--- NOTE | 2020-02-13 14:00 | PC.NURSE ---
Call placed to [employer] for pacer interrogation @ [phone] 02/13/20. Cancelled call per MD order @ [phone]
[2020-02-13 14:37] LABS: Basophils Absolute Auto 0.1 K/mm3 (0.0-0.1); Basophils Percent Auto 0.7 % (0.2-1.2); Eosinophils Absolute Auto 0.3 K/mm3 (0-0.3); Eosinophils Percent Auto 4.4 % (0-4.4); Hematocrit 37.5 % (37.0-47.0); Hemoglobin 12.7 g/dL (12.0-15.0); Immature Granulocyte Absolute 0.04 K/mm3 (0.00-0.031); Immature Granulocyte Percent A 0.6 % (0-0.5); Lymphocytes Absolute Auto 2.06 K/mm3 (0.9-3.2); Lymphocytes Percent Auto 28.9 % (18.3-44.2); Mean Corpuscular HGB Conc 33.9 g/dl (32-36); Mean Corpuscular Hemoglobin 29.3 pg (26-34); Mean Corpuscular Volume 86.6 fl (80-100); Mean Platelet Volume 10.1 fl (7.4-10.4); Monocytes Absolute Auto 0.5 K/mm3 (0.1-0.6); Neutrophils Absolute Auto 4.2 K/mm3 (1.3-6.7); Neutrophils Percent Auto 58.4 % (45.5-73.1); Platelet Count Result 232 k/mm3 (150-375); Red Blood Count 4.33 M/mm3 (4.2-5.4); Red Cell Distribution Width 13.2 % (11.5-14.5); White Blood Count 7.1 K/mm3 (4.5-10.0)
[2020-02-13] MEDS: ACETAMINOPHEN 325 MG TABLET 650 MG PO (15:46)
[2020-02-13 17:01] LABS: Glucose Point of Care 283 (65-105)
[2020-02-13] MEDS: WARFARIN (*PBKC) 7.5 MG TABLET PO (17:01)
--- NOTE | 2020-02-13 18:07 | PM.IMPN ---
Progress Note: A&P Assessment and Plan (1) Ventricular tachycardia: Code(s): I47.2 - Ventricular tachycardia Status: Acute Assessment and Plan: ACS. Ruled out with negative troponins. Cardiology has has seen and feels that there was no malignant arrhythmia and patient has had recent evaluation at [place] with no further intervention needed. (2) Chest pain: Qualifiers: Chest pain type: unspecified Qualified Code(s): R07.9 - Chest pain, unspecified Code(s): R07.9 - Chest pain, unspecified Status: Acute Assessment and Plan: As above troponin. Negative. Had V/Q lung scan done since patient is sensitive to IV a dying contrast and results are low probability (3) Subtherapeutic anticoagulation: Code(s): Z51.81 - Encounter for therapeutic drug level monitoring; Z79.01 - retirement (current) use of anticoagulants Status: Acute Assessment and Plan: Continue Lovenox, full dose for now. Continue coumadin. At usual dose because there is question as to whether patient was even taking her warfarin. Follow INR (4) Pressure sore on heel, left, unstageable: Code(s): L89.620 - Pressure ulcer of left heel, unstageable Status: Acute Assessment and Plan: Wound care has assessed and small diabetic ulcer (5) Diabetes mellitus: Qualifiers: Diabetes mellitus type: type 2 Diabetes mellitus watermelon harvesting supervisor insulin use: without watermelon harvesting supervisor use Diabetes mellitus complication status: without complication Qualified Code(s): E11.9 - Type 2 diabetes mellitus without complications Code(s): E11.9 - Type 2 diabetes mellitus without complications Status: Acute Assessment and Plan: A1c greater than 14 and with degree of hyperglycemia insulin has been started and oral hypoglycemics held Subjective Date/time seen: 02/13/20 18:07 Interval history: Date of visit 02/12. 44-year-old hypertensive type 2 diabetic with history of pulmonary emboli admitted with chest discomfort, subtherapeutic INR, and what was thought to be ventricular tachycardia. Seen by Cardiology and rhythm was not ventricular tachycardia. Ventilation perfusion lung scan was negative and has had cardiac evaluation [place] recently as enumerated by Cardiology. Feels better at present time with no shortness of breath or chest pain Exam Narrative: Exam Narrative: Blood pressure 118/64 pulse 70 and regular afebrile Lungs clear CV regular rate rhythm Abdomen is soft nontender Extremities without edema good distal pulses, right heel medial aspect small about 1-2 cm clean diabetic ulcer seen by wound care Neuro alert no focal deficits Objective Data Vital Signs Vital Signs: Vital Signs - 24 hr 02/12/20 19:09 02/12/20 19:45 02/12/20 19:55 Temperature Pulse Rate 90 90 91 Respiratory Rate 20 22 H Blood Pressure 122/55 L 123/87 123/87 Pulse Oximetry 99 98 02/12/20 20:02 02/12/20 20:22 02/12/20 20:47 Temperature Pulse Rate 86 83 79 Respiratory Rate 20 20 Blood Pressure 104/62 109/66 103/54 L Pulse Oximetry 99 98 02/12/20 21:03 02/12/20 21:41 02/12/20 21:55 Temperature 36.6 C Pulse Rate 79 73 72 Respiratory Rate 20 20 15 Blood Pressure 118/65 100/61 116/76 Pulse Oximetry 98 97 98 02/12/20 22:00 02/13/20 00:00 02/13/20 02:00 Temperature 36.4 C Pulse Rate 74 70 70 Respiratory Rate 19 12 12 Blood Pressure 108/67 110/61 102/53 L Pulse Oximetry 98 99 98 02/13/20 04:00 02/13/20 06:00 02/13/20 06:27 Temperature Pulse Rate 70 70 70 Respiratory Rate 12 12 Blood Pressure 113/71 98/70 L 98/70 L Pulse Oximetry 99 97 02/13/20 08:00 02/13/20 10:03 02/13/20 10:04 Temperature 37.1 C Pulse Rate 71 70 70 Respiratory Rate 14 16 Blood Pressure 117/67 117/67 Pulse Oximetry 97 02/13/20 12:00 02/13/20 12:05 02/13/20 14:00 Temperature 37.2 C Pulse Rate 70 76 70 Respiratory Rate 16 16 Blood Pressure 121/66 119/67 Pulse Oximetry 97
[2020-02-13] MEDS: GABAPENTIN 400 MG CAPSULE 800 MG PO (20:06)
[2020-02-13] MEDS: INSULIN DETEMIR 100 UNITS/ML 10 UNITS SUB-Q (20:07)
[2020-02-13 20:14] LABS: Glucose Point of Care 280 (65-105)
--- NOTE | 2020-02-13 21:00 | PC.NURSE ---
This patient, Valerie Nguyen, was transferred to [[id number]] on 02/13/20 at 2100. Personal belongings sent with patient. Belongings list checked and signed with receiving Simran. Report given to Simran. Appropriate documentation sent with patient.
--- NOTE | 2020-02-13 21:05 | PC.NURSE ---
This patient, Valerie Nguyen, was received from [ICU ] on 02/13/20 at 2105. Personal belongings list checked and signed. Patient/family oriented to unit policies and routines
[2020-02-14 05:50] LABS: Glucose Point of Care 257 (65-105)
[2020-02-14 06:00] VITALS: BP 136/73; PULSE 72; RESP 18; TEMP 36.4; O2SAT 100
[2020-02-14 06:45] LABS: Blood Urea Nitrogen 22 mg/dL (7-17); Calcium 8.9 mg/dL (8.4-10.2); Carbon Dioxide 24 mmol/L (22-30); Chloride 103 mmol/L (98-107); Estimated Glomerular Filt Rate > 60; Glucose 284 mg/dL (65-105); Potassium 3.9 mmol/L (3.4-5.0); Sodium 135 mmol/L (137-145)
[2020-02-14 07:00] LABS: INR 0.9
[2020-02-14 08:15] LABS: Glucose Point of Care 271 (65-105)
[2020-02-14] MEDS: FLUTICASONE PROPIONATE 0.05% NA SPR 16 GM BTL (*BKC) 1 SPRAY NASAL ×2 (08:54→18:02)
[2020-02-14] MEDS: PANTOPRAZOLE 40 MG TABLET PO (08:55)
[2020-02-14] MEDS: lisinopriL 20 MG TABLET PO (08:56)
[2020-02-14] MEDS: GABAPENTIN 400 MG CAPSULE 800 MG PO ×4 (08:56→20:29)
[2020-02-14] MEDS: TOPIRAMATE 100 MG TABLET PO (08:56)
[2020-02-14] MEDS: ENOXAPARIN 80 MG/0.8 ML SYRINGE SUB-Q ×2 (08:57→20:29)
[2020-02-14] MEDS: INSULIN ASPART (*BKC) 100 UNITS/ML SUB-Q ×3 (09:00→18:03)
[2020-02-14] MEDS: INSULIN DETEMIR 100 UNITS/ML 10 UNITS SUB-Q (09:01)
[2020-02-14] MEDS: oxyCODONE/ACETAMINOPHEN 5-325 MG TABLET 1 TABLET PO ×2 (09:07→18:03)
[2020-02-14 12:22] LABS: Glucose Point of Care 346 (65-105)
--- NOTE | 2020-02-14 12:38 | PC.NURSE ---
Called the wound care clinic at the request of the patient. I spoke with TYRELL Benton regarding the patient's closed scab on her left heel. The wound is to be kept open to air per Wound Care, RN.
[2020-02-14 14:00] VITALS: BP 138/74; PULSE 87; RESP 18; TEMP 36.5; O2SAT 99
[2020-02-14] MEDS: polyethylene glycoL 3350 17 GM POWD.PACK PO (15:23)
[2020-02-14] MEDS: GABAPENTIN 400 MG CAPSULE PO ×2 (15:24→22:15)
--- NOTE | 2020-02-14 16:14 | PM.IMPN ---
Progress Note: A&P Assessment and Plan (1) Ventricular tachycardia: Code(s): I47.2 - Ventricular tachycardia Status: Acute Assessment and Plan: It was felt that the concerning cardiac rhythm was artifact. Cardiology has has seen and feels that there was no malignant arrhythmia and patient has had recent evaluation at [place] with no further intervention needed. Amiodarone stopped. Telemetry stopped. (2) Chest pain: Qualifiers: Chest pain type: unspecified Qualified Code(s): R07.9 - Chest pain, unspecified Code(s): R07.9 - Chest pain, unspecified Status: Acute Assessment and Plan: Atypical chest pain. Troponins negative x3. EKG showing no acute findings. Patient with a normal V/Q scan. Chest x-ray was clear. (3) Subtherapeutic anticoagulation: Code(s): Z51.81 - Encounter for therapeutic drug level monitoring; Z79.01 - nursing home (current) use of anticoagulants Status: Acute Assessment and Plan: Patient currently on full-dose Lovenox. She has no history of atrial fibrillation. She relates to me that she has had multiple pulmonary emboli and that her last pulmonary embolism was in August. Patient appears to be high risk for recurrent VTE. It is unclear if she is taking her Coumadin. INR remains subtherapeutic. I have discussed with case management about obtaining Eliquis since patient has failed Coumadin. Continue coumadin. Follow INR. Home with Lovenox injections if unable to get Eliquis. (4) Pressure sore on heel, left, unstageable: Code(s): L89.620 - Pressure ulcer of left heel, unstageable Status: Acute Assessment and Plan: Wound care has assessed and small diabetic ulcer. Continue to monitor. Will add triple antibiotic ointment. Consider oral antibiotics if the erythema spreads further. (5) Diabetes mellitus: Qualifiers: Diabetes mellitus complication status: without complication Diabetes mellitus jail insulin use: without termite treater helper use Diabetes mellitus type: type 2 Qualified Code(s): E11.9 - Type 2 diabetes mellitus without complications Code(s): E11.9 - Type 2 diabetes mellitus without complications Status: Acute Assessment and Plan: A1c greater than 14. Reviewed on 02/14/2020. Glucose mostly in the 200 range. On Levemir. 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 Continue Accu-Cheks and sliding scale protocol. Subjective Date/time seen: 02/14/20 16:14 Interval history: Date of visit 02/13. 44-year-old hypertensive type 2 diabetic with history of pulmonary emboli admitted with chest discomfort, subtherapeutic INR, and what was thought to be ventricular tachycardia. Seen by Cardiology and rhythm was not ventricular tachycardia. Ventilation perfusion lung scan was negative and has had cardiac evaluation [place] recently as enumerated by Cardiology. Assuming care. Chart reviewed. Patient feels constipated. Last bowel movement was yesterday. She denies chest pain shortness of breath. She does have dyspnea on exertion when she does mild activity. She quit tobacco about 19 years ago. Exam Narrative: Exam Narrative: AF 97.7 138/74 87 18 99% ra Gen - NARD Chest - CTA bilaterally, nml RR CV - RRR S1/S2 Abd - Soft, NT/ND, Positive BS Ext - No pedal edema Psych - Nml mood with odd affect Skin - Warm and dry; left heel medial aspect with small about 1 cm clean diabetic ulcer with mild surrounding erythema Objective Data Vital Signs Vital Signs: Vital Signs - 24 hr 02/13/20 21:05 02/14/20 06:00 02/14/20 14:00 Temperature 97.8 F 97.6 F 97.7 F Pulse Rate 78 72 87 Respiratory Rate 18 18 18 Blood Pressure 141/70 H 136/73 138/74 Pulse Oximetry 98 100 99 Intake/Output Intake/Output: Intake & Output 02/11/20 02/12/20 02/13/20 02/14/20 23:59 23:59 23:59 23:59 Intake Total 1200 2722 3360 Output Total 650 Balance 1200 2072 3360 Meds/Results Medications: Act
[2020-02-14 17:45] LABS: Glucose Point of Care 240 (65-105)
[2020-02-14] MEDS: WARFARIN (*PBKC) 7.5 MG TABLET PO (18:02)
[2020-02-14] MEDS: levETIRAcetam 500 MG TABLET PO ×2 (18:03→20:29)
[2020-02-14] MEDS: TRIAMCINOLONE ACET 0.1% CREAM 15 GM TUBE 1 APPLIC TOPICAL (20:30)
[2020-02-14] MEDS: INSULIN DETEMIR 100 UNITS/ML 20 UNITS SUB-Q (20:34)
[2020-02-14 21:22] LABS: Glucose Point of Care 282 (65-105)
[2020-02-14 21:31] VITALS: BP 112/63; PULSE 85; RESP 16; TEMP 36.7; O2SAT 98
[2020-02-15] MEDS: GABAPENTIN 400 MG CAPSULE PO (05:41)
[2020-02-15 06:00] VITALS: BP 99/58; PULSE 85; RESP 16; TEMP 36.6; O2SAT 99
[2020-02-15 06:25] LABS: INR 0.9; Prothrombin Time 11.9 Seconds (11.1-14.7)
[2020-02-15] MEDS: GABAPENTIN 400 MG CAPSULE 800 MG PO ×3 (09:05→19:33)
[2020-02-15] MEDS: lisinopriL 20 MG TABLET PO (09:06)
[2020-02-15] MEDS: levETIRAcetam 500 MG TABLET PO ×2 (09:06→20:19)
[2020-02-15] MEDS: PANTOPRAZOLE 40 MG TABLET PO (09:06)
[2020-02-15] MEDS: FLUTICASONE PROPIONATE 0.05% NA SPR 16 GM BTL (*BKC) 1 SPRAY NASAL ×2 (09:09→19:32)
[2020-02-15] MEDS: INSULIN ASPART (*BKC) 100 UNITS/ML SUB-Q ×2 (09:10→12:34)
[2020-02-15] MEDS: ENOXAPARIN 80 MG/0.8 ML SYRINGE SUB-Q ×2 (09:10→20:19)
[2020-02-15] MEDS: oxyCODONE/ACETAMINOPHEN 5-325 MG TABLET 1 TABLET PO ×2 (09:18→14:43)
[2020-02-15] MEDS: TRIAMCINOLONE ACET 0.1% CREAM 15 GM TUBE 1 APPLIC TOPICAL ×2 (09:20→20:21)
[2020-02-15] MEDS: PIOGLITAZONE HCL 30 MG TABLET PO (09:26)
[2020-02-15] MEDS: ATORVASTATIN 20 MG TABLET PO (09:26)
[2020-02-15] MEDS: INSULIN DETEMIR 100 UNITS/ML 25 UNITS SUB-Q ×2 (09:27→20:20)
[2020-02-15 09:59] LABS: Glucose Point of Care 221 (65-105)
[2020-02-15 12:00] VITALS: BP 105/42; PULSE 96; RESP 20; TEMP 36.3; O2SAT 100
[2020-02-15 12:10] LABS: Glucose Point of Care 291 (65-105)
--- NOTE | 2020-02-15 12:22 | PM.IMPN ---
Progress Note: A&P Assessment and Plan (1) Dizzy: Code(s): R42 - Dizziness and giddiness Status: Acute Assessment and Plan: Etiolgoy unclear. No focal findings on exam. Did increase her Gabapentin back to her home dose but she may not have been taking this dose regularly. Will check orthostatic BP. Check HH and BMP. Consider CT or MRI. Cut Marlena dose back and monitor. Orthostatic BP showing BP low while lying and better when she stands. CBC normal. BMP showing Na 134 and BUN 41 with glucose 361. Continue to monitor. (2) Chest pain: Qualifiers: Chest pain type: unspecified Qualified Code(s): R07.9 - Chest pain, unspecified Code(s): R07.9 - Chest pain, unspecified Status: Acute Assessment and Plan: Atypical chest pain. Troponins negative x3. EKG showing no acute findings. Patient with a normal V/Q scan. Chest x-ray was clear. (3) Subtherapeutic anticoagulation: Code(s): Z51.81 - Encounter for therapeutic drug level monitoring; Z79.01 - retirement (current) use of anticoagulants Status: Acute Assessment and Plan: Patient currently on full-dose Lovenox. She has no history of atrial fibrillation. She relates to me that she has had multiple pulmonary emboli and that her last pulmonary embolism was in August. Discussed with PCP who felt patient does not need to be bridged with Coumadin. Long hx of noncompliance with the Coumadin. Patient's INR 0.9 on admission. She has received two days of Warfarin 7.5mg with INR unchanged. Will advance to 10mg daily. Follow INR. Continue with Lovenox injections while hospitalized but no plans for home injections. (4) Pressure sore on heel, left, unstageable: Code(s): L89.620 - Pressure ulcer of left heel, unstageable Status: Acute Assessment and Plan: Wound care has assessed and small diabetic ulcer. Continue to monitor. Plan is to keep open to air. (5) Diabetes mellitus: Qualifiers: Diabetes mellitus complication status: without complication Diabetes mellitus termite treater helper insulin use: without shelter use Diabetes mellitus type: type 2 Qualified Code(s): E11.9 - Type 2 diabetes mellitus without complications Code(s): E11.9 - Type 2 diabetes mellitus without complications Status: Acute Assessment and Plan: A1c greater than 14. Glucose reviewed on 02/15/2020. Glucose mostly in the 200 range still. On Levemir. Will advance Levemir dose again. Januvia and Actos to be resumed today. Continue Accu-Cheks and sliding scale protocol. inclusion paraeducator. (6) Ventricular tachycardia: Code(s): I47.2 - Ventricular tachycardia Status: Acute Assessment and Plan: It was felt that the concerning cardiac rhythm was artifact. Cardiology has has seen and feels that there was no malignant arrhythmia and patient has had recent evaluation at [place] with no further intervention needed. Amiodarone stopped. Telemetry stopped. Subjective Date/time seen: 02/15/20 12:22 Interval history: Date of visit 02/14. 44yo female with HTN, hx of PE and DM here for chest pain and what thought to be ventricular tachycardia. Seen by Cardiology and rhythm was not ventricular tachycardia. Has had cardiac evaluation [place] recently as enumerated by Cardiology. Patient feels weak and dizzy since waking up this morning. She is also having bilateral blurry visiion and feels off-balance when walking. She feels weak all over but no focal weakness. Eating okay and no problems with swallowing. Slight chest pain but more of a chronic symptom. Exam Narrative: Exam Narrative: AF 97.9 99/58 85 16 99% ra Gen - NARD sitting at the side of the bed feeding herself Chest - CTA bilaterally, nml RR CV - RRR S1/S2 Abd - Soft, NT/ND, Positive BS Ext - No pedal edema Neuro - AOx4, CN intact, nml strength. Heel to hare okay. mildly unsteady when walking but
[2020-02-15 14:00] VITALS: BP 132/80; PULSE 100; RESP 20; TEMP 36.4; O2SAT 100
[2020-02-15 14:00] LABS: Hematocrit 41.7 % (37.0-47.0); Hemoglobin 13.6 g/dL (12.0-15.0); Mean Corpuscular HGB Conc 32.6 g/dl (32-36); Mean Corpuscular Hemoglobin 28.8 pg (26-34); Mean Corpuscular Volume 88.3 fl (80-100); Mean Platelet Volume 11.1 fl (7.4-10.4); Platelet Count Result 219 k/mm3 (150-375); Red Blood Count 4.72 M/mm3 (4.2-5.4); Red Cell Distribution Width 13.7 % (11.5-14.5); White Blood Count 7.7 K/mm3 (4.5-10.0)
[2020-02-15 14:19] LABS: Blood Urea Nitrogen 41 mg/dL (7-17); Calcium 9.1 mg/dL (8.4-10.2); Carbon Dioxide 22 mmol/L (22-30); Chloride 103 mmol/L (98-107); Estimated Glomerular Filt Rate > 60; Glucose 361 mg/dL (65-105); Potassium 4.8 mmol/L (3.4-5.0); Sodium 134 mmol/L (137-145)
[2020-02-15 16:42] VITALS: BP 86/43
[2020-02-15 16:43] VITALS: BP 101/51; BP 115/64
--- NOTE | 2020-02-15 19:11 | PC.NURSE ---
Pt is A&O x4. Pt has been yelling and cussing at all staff, due to not getting a second dinner tray. Pt has been complaining her meal trays have been wrong throughout the day, then ordering a second tray and eating both. Kitchen notified to provide pt with one tray, due to pt being diabetic and having a high blood sugar. Pt has been calling all different numbers throughout the hospital, including security, to complain that she was given a chicken potpie, but wants a salad. The kitchen was already closed when pt started yelling. Pt stated we were trying to starve her. Pt continues to call the manager fixed income, and scream from down in her room, over her food tray. Pt has been very disruptive to the other pt's and staff. Pt has been difficult to re-direct and will not allow staff to talk, she just continues to argue and yell over us. Pt has now called the house director over her meal tray.
[2020-02-15] MEDS: WARFARIN (*PBKC) 10 MG TABLET PO (19:33)
[2020-02-15 20:35] LABS: Glucose Point of Care 323 (65-105)
[2020-02-15] MEDS: ALPRAZolam 0.5 MG TABLET 1 MG PO (21:24)
[2020-02-15 22:00] VITALS: BP 158/47; PULSE 100; RESP 18; TEMP 36.5; O2SAT 99
[2020-02-15] MEDS: NEOMYCIN/POLYMYXIN/BACITRACIN OINTMENT 15 GM TUBE 1 APPLIC TOPICAL (23:21)
--- NOTE | 2020-02-16 | ECHO_ITS ---
Patient Info Name: Valerie Nguyen Age: 44 years : 1975 Gender: Female Ht: 59 in Wt: 179 lbs BSA: 1.88 m2 HR: 93 bpm BP: 153 / 51 mmHg Heart Rhythm: Sinus Rhythm Technical Quality: Fair Exam Date: 02/16/2020 2:48 PM Exam Location: [facility] Exam Room: 309 Patient Status: Inpatient Admit Date: 02/12/2020 Staff Ordering Physician: Manas Gaytan MD [employer] Curer: Caitlin Lombardo RCS Attending Provider: Manas Gaytan MD Exam Type: CA echo dop bubble study w con Study Info Indications - ataxia hx/o ppm Complete two-dimensional, color flow and Doppler transthoracic echocardiogram is performed with contrast to opacify the left ventricle and to improve the deliniation of the left ventricle endocardial borders. Complete two-dimensional, color flow and Doppler transthoracic echocardiogram is performed with agitated saline. Contrast/Agitated Saline Contrast/Ag. Saline: Definity Amount: 2.00 ml Administered By: Lenin Ty RN Existing IV Access: Yes IV Access Condition: patent with no signs of infiltration Contrast/Ag. Saline: Agitated Saline Amount: 20.00 ml Summary 1. Left ventricular systolic function is hyperdynamic, estimated at 75%. 2. There is no increased left ventricular wall thickness. 3. The left ventricular diastolic function is normal. 4. Left ventricular chamber dimension is normal. 5. No evidence of intracardiac shunt with injection of agitated saline with and without Valsalva. 6. There is no aortic valve stenosis. 7. There is mild tricuspid valve regurgitation. 8. Mild pulmonary hypertension, estimated pulmonary arterial systolic pressure is 36 mmHg. 9. Normal inferior vena cava with >50% collapse upon inspiration consistent with normal right atrial pressure, 5 mmHg. Left Ventricle Left ventricular chamber dimension is normal. Left ventricular systolic function is hyperdynamic, estimated at 75%. There is no increased left ventricular wall thickness. The left ventricular diastolic function is normal. Right Ventricle Right ventricular chamber dimension is normal. Right ventricular systolic function is normal. Linear artifact in right ventricle suggestive of catheter(s), pacemaker lead(s), or ICD lead(s). Left Atria Left atrial chamber dimension is normal. Right Atria Right atrial chamber dimension is normal. Linear artifact in the right atrium suggestive of catheter(s), pacemaker lead(s), or ICD lead(s). Atrial Septum No evidence of intracardiac shunt with injection of agitated saline with and without Valsalva. Aortic Valve The aortic valve is probable trileaflet. There is no aortic valve stenosis. There is no aortic valve regurgitation. Pulmonic Valve The pulmonic valve is not well visualized. There is trace pulmonic regurgitation. Mitral Valve The mitral valve has normal leaflets. There is trace mitral valve regurgitation. Tricuspid Valve The tricuspid valve leaflets are normal. There is mild tricuspid valve regurgitation. Mild pulmonary hypertension, estimated pulmonary arterial systolic pressure is 36 mmHg. Pericardium/Pleural The pericardium appears normal. There is no pericardial effusion. Inferior Vena Cava Normal inferior vena cava with >50% collapse upon inspiration consistent with normal right atrial pressure, 5 mmHg. Aorta The aortic root size at the sinus of Valsal
[2020-02-16 06:00] VITALS: BP 153/51; PULSE 92; RESP 18; TEMP 36.5; O2SAT 100
[2020-02-16] MEDS: oxyCODONE/ACETAMINOPHEN 5-325 MG TABLET 1 TABLET PO ×2 (06:31→17:45)
[2020-02-16] MEDS: FLUTICASONE PROPIONATE 0.05% NA SPR 16 GM BTL (*BKC) 1 SPRAY NASAL ×2 (06:33→17:40)
[2020-02-16 06:51] LABS: INR 1.2; Prothrombin Time 14.7 Seconds (11.1-14.7)
[2020-02-16] MEDS: ENOXAPARIN 80 MG/0.8 ML SYRINGE SUB-Q ×2 (08:42→21:36)
[2020-02-16] MEDS: PANTOPRAZOLE 40 MG TABLET PO (08:42)
[2020-02-16] MEDS: GABAPENTIN 400 MG CAPSULE 800 MG PO ×4 (08:42→21:33)
[2020-02-16] MEDS: ATORVASTATIN 20 MG TABLET PO (08:42)
[2020-02-16 08:43] LABS: Glucose Point of Care 290 (65-105)
[2020-02-16] MEDS: NEOMYCIN/POLYMYXIN/BACITRACIN OINTMENT 15 GM TUBE 1 APPLIC TOPICAL (08:43)
[2020-02-16] MEDS: TRIAMCINOLONE ACET 0.1% CREAM 15 GM TUBE 1 APPLIC TOPICAL ×2 (08:43→21:38)
[2020-02-16] MEDS: lisinopriL 20 MG TABLET PO (08:43)
[2020-02-16] MEDS: levETIRAcetam 500 MG TABLET PO ×2 (08:43→21:33)
[2020-02-16] MEDS: PIOGLITAZONE HCL 30 MG TABLET PO (08:43)
[2020-02-16] MEDS: ALPRAZolam 0.5 MG TABLET 1 MG PO (08:47)
[2020-02-16] MEDS: INSULIN DETEMIR 100 UNITS/ML 25 UNITS SUB-Q (08:49)
[2020-02-16] MEDS: INSULIN ASPART (*BKC) 100 UNITS/ML SUB-Q ×3 (08:49→17:40)
--- NOTE | 2020-02-16 10:23 | PM.IMPN ---
Progress Note: A&P Assessment and Plan (1) Dizzy: Code(s): R42 - Dizziness and giddiness Status: Acute Assessment and Plan: Etiology unclear. Seems better. Did increase her Gabapentin back to her home dose but she may not have been taking this dose regularly so Marlena dose decreased. Orthostatic BP showing BP low while lying and better when she stands. CBC normal. BMP showing Na 134 and BUN 41. Consider CVA but also consider malingering (no place to live until tomorrow and has concerns about discharge). Will check MRI brain to exclude cerebellar CVA. Check carotids and Echo. Tele. Allergic to ASA. Add Plavix if +CVA. (2) Chest pain: Qualifiers: Chest pain type: unspecified Qualified Code(s): R07.9 - Chest pain, unspecified Code(s): R07.9 - Chest pain, unspecified Status: Acute Assessment and Plan: Atypical chest pain. Troponins negative x3. EKG showing no acute findings. Patient with a normal V/Q scan. Chest x-ray was clear. New left flank pain is musculoskeletal. Treat symptomatically. Watch for evidence of shingles. 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 She has no history of atrial fibrillation. She relates to me that she has had multiple pulmonary emboli and that her last pulmonary embolism was in August. Discussed with PCP who felt patient does not need to be bridged with Coumadin. Long hx of noncompliance with the Coumadin. Patient's INR 0.9 on admission. She has received two days of Warfarin 7.5mg with INR unchanged so Coumadin advanced to 10mg. INR 1.2 today. Continue with Lovenox injections while hospitalized but no plans for home injections. (4) Pressure sore on heel, left, unstageable: Code(s): L89.620 - Pressure ulcer of left heel, unstageable Status: Acute Assessment and Plan: Wound care has assessed and small diabetic ulcer. Continue to monitor. Plan is to keep open to air. (5) Diabetes mellitus: Qualifiers: Diabetes mellitus type: type 2 Diabetes mellitus assisted insulin use: without assisted use Diabetes mellitus complication status: without complication Qualified Code(s): E11.9 - Type 2 diabetes mellitus without complications Code(s): E11.9 - Type 2 diabetes mellitus without complications Status: Acute Assessment and Plan: A1c greater than 14. Glucose reviewed on 02/16/2020. Glucose mostly in the 200 range still. On Levemir, Januvia and Actos. 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 (6) Ventricular tachycardia: Code(s): I47.2 - Ventricular tachycardia Status: Acute Assessment and Plan: It was felt that the concerning cardiac rhythm was artifact. Cardiology has has seen and feels that there was no malignant arrhythmia and patient has had recent evaluation at [place] with no further intervention needed. Amiodarone stopped. (7) HTN (hypertension): Code(s): I10 - Essential (primary) hypertension Status: Acute Assessment and Plan: BP reviewed on 02/16/20. BP up and down at times. Continue lisinopril. Subjective Date/time seen: 02/16/20 10:23 Interval history: 44yo female with HTN, hx of PE and DM here for chest pain and what thought to be ventricular tachycardia. Seen by Cardiology and rhythm was not ventricular tachycardia. Has had cardiac evaluation [facility] recently as enumerated by Cardiology. Date of visit 02/15: Patient still feels weak and dizzy. still with bilateral blurry vision but she states she may have glaucoma. She continues to feel off balance. also now complains of left flank pain brought on by movement/activity. nml BMs now. No dysuria or h
[2020-02-16 12:00] VITALS: PULSE 82
[2020-02-16 14:00] VITALS: BP 92/48; PULSE 92; RESP 16; TEMP 37.2; O2SAT 100
[2020-02-16] MEDS: PERFLUTREN LIPID MICROSPHERES 1.5 ML VIAL DILUTED TO 10 ML TOTAL VOLUME IV PUSH (15:43)
[2020-02-16 16:26] VITALS: BP 125/63; PULSE 97; TEMP 36.3; O2SAT 100
[2020-02-16 17:10] LABS: Glucose Point of Care 300 (65-105)
[2020-02-16] MEDS: WARFARIN (*PBKC) 10 MG TABLET PO (17:37)
[2020-02-16 17:51] LABS: Glucose Point of Care 212 (65-105)
[2020-02-16 20:00] VITALS: PULSE 92
[2020-02-16] MEDS: INSULIN DETEMIR 100 UNITS/ML 32 UNITS SUB-Q (21:37)
[2020-02-16 22:00] VITALS: BP 94/59; PULSE 88; RESP 16; TEMP 36.4; O2SAT 99
[2020-02-16 22:45] LABS: Glucose Point of Care 262 (65-105)
[2020-02-17] VITALS (7 sets, daily range): BP systolic 105–145; BP diastolic 47–76; PULSE 82–107; RESP 16; TEMP 36.3–36.5; O2SAT 95–100
[2020-02-17] MEDS: oxyCODONE/ACETAMINOPHEN 5-325 MG TABLET 1 TABLET PO ×2 (05:25→12:53)
[2020-02-17 06:47] LABS: Hematocrit 37.5 % (37.0-47.0); Mean Corpuscular Hemoglobin 28.7 pg (26-34); Mean Corpuscular Volume 89.7 fl (80-100); Mean Platelet Volume 10.7 fl (7.4-10.4); Platelet Count Result 205 k/mm3 (150-375); Red Blood Count 4.18 M/mm3 (4.2-5.4); Red Cell Distribution Width 14.2 % (11.5-14.5); White Blood Count 7.4 K/mm3 (4.5-10.0)
[2020-02-17 06:54] LABS: INR 1.4; Prothrombin Time 16.5 Seconds (11.1-14.7)
[2020-02-17 08:21] LABS: Albumin Level 3.6 g/dL (3.5-5.1); Blood Urea Nitrogen 53 mg/dL (7-17); Carbon Dioxide 23 mmol/L (22-30); Chloride 105 mmol/L (98-107); Estimated Glomerular Filt Rate > 60; Glucose 299 mg/dL (65-105); Magnesium 2.1 mg/dL (1.6-2.3); Phosphorus 5.6 mg/dL (2.5-4.5); Potassium 4.9 mmol/L (3.4-5.0); Sodium 135 mmol/L (137-145)
[2020-02-17 08:37] LABS: Glucose Point of Care 366 (65-105)
[2020-02-17] MEDS: INSULIN ASPART (*BKC) 100 UNITS/ML SUB-Q ×2 (08:47→12:47)
[2020-02-17] MEDS: INSULIN DETEMIR 100 UNITS/ML 32 UNITS SUB-Q (08:48)
[2020-02-17] MEDS: ENOXAPARIN 80 MG/0.8 ML SYRINGE SUB-Q ×2 (08:52→21:20)
[2020-02-17] MEDS: FLUTICASONE PROPIONATE 0.05% NA SPR 16 GM BTL (*BKC) 1 SPRAY NASAL ×2 (08:54→17:00)
[2020-02-17] MEDS: lisinopriL 20 MG TABLET PO (08:54)
[2020-02-17] MEDS: GABAPENTIN 400 MG CAPSULE 800 MG PO ×4 (08:54→21:20)
[2020-02-17] MEDS: ATORVASTATIN 20 MG TABLET PO (08:54)
[2020-02-17] MEDS: levETIRAcetam 500 MG TABLET PO ×2 (08:54→21:20)
[2020-02-17] MEDS: NEOMYCIN/POLYMYXIN/BACITRACIN OINTMENT 15 GM TUBE 1 APPLIC TOPICAL (08:55)
[2020-02-17] MEDS: PIOGLITAZONE HCL 30 MG TABLET PO (08:56)
[2020-02-17] MEDS: PANTOPRAZOLE 40 MG TABLET PO (08:56)
[2020-02-17] MEDS: TRIAMCINOLONE ACET 0.1% CREAM 15 GM TUBE 1 APPLIC TOPICAL ×2 (08:59→21:22)
[2020-02-17] MEDS: ALPRAZolam 0.5 MG TABLET 1 MG PO (09:10)
[2020-02-17 09:43] LABS: Folic Acid 9.1 ng/mL (2.76->20)
[2020-02-17 12:46] LABS: Glucose Point of Care 289 (65-105)
--- NOTE | 2020-02-17 15:39 | PM.DS ---
DS: Admitting Diagnosis Admitting Diagnosis Admitting Diagnosis: Ventricular tachycardia DS: Discharge Diagnosis Discharge Diagnosis (1) Dizzy: Code(s): R42 - Dizziness and giddiness Status: Acute Assessment and Plan: Etiology unclear. CT brain showing no acute findings. Carotid US showing no significant stenosis. Echo showing EF 75% without evidence of shunt. She was resumed on Gabapentin 800mg TID but later she stated she should be on 1200mg TID so dose increased (after verified by pharmacy). Her symptoms came on shortly after the change iin dose so Marlena dose cut back to 800mg TID. SHe may be nocompliant and not use to the higher dose consistently. Her dizziness improved. She was up walking in the halls unassisted. Today, she walked up to the nurses station asking for linens so she can make her own bed. Tele showing no significnat dysrhythmias. (2) Chest pain: Qualifiers: Chest pain type: unspecified Qualified Code(s): R07.9 - Chest pain, unspecified Code(s): R07.9 - Chest pain, unspecified Status: Acute Assessment and Plan: Atypical chest pain. Troponins negative x3. EKG showing no acute findings. Patient with a normal V/Q scan. Chest x-ray was clear. New left flank pain is musculoskeletal. 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 Patient has hx of noncompliance with treatment. Patient started on full-dose Lovenox. She has no history of atrial fibrillation. She relates to me that she has had multiple pulmonary emboli and that her last pulmonary embolism was in August. Discussed with PCP who felt patient does not need to be bridged with Coumadin. Long hx of noncompliance with the Coumadin. She was started on Warfarin 7.5mg with INR unchanged so advanced to 10mg. INR 1.4 today. BUN higher at 55 but Hgb remained normal and no evidence of GI bleed. Continue Warfarin at current dose with repeat INR as outpatient. (4) Pressure sore on heel, left, unstageable: Code(s): L89.620 - Pressure ulcer of left heel, unstageable Status: Acute Assessment and Plan: Wound care has assessed and small diabetic ulcer. Not topical treatment recommended but only to keep open to air. (5) Diabetes mellitus: Qualifiers: Diabetes mellitus type: type 2 Diabetes mellitus skilled nursing insulin use: without exterminator termite use Diabetes mellitus complication status: without complication Qualified Code(s): E11.9 - Type 2 diabetes mellitus without complications Code(s): E11.9 - Type 2 diabetes mellitus without complications Status: Acute Assessment and Plan: A1c greater than 14. Glucose monitored closely. She was started on Levemir and dose advanced daily. Glucose still in the 200 range. Home Januvia and Actos resumed. Monitored with Accu-Cheks and sliding scale protocol. She was educated about the benefits of diabetic diet. RN states patient with multiple snacks in the room including regular soda. (6) Ventricular tachycardia: Code(s): I47.2 - Ventricular tachycardia Status: Acute Assessment and Plan: It was felt that the concerning cardiac rhythm was artifact. Cardiology did evaluate and felt that there was no malignant arrhythmia and patient has had recent evaluation at [facility] with no further intervention needed. Amiodarone stopped. (7) HTN (hypertension): Code(s): I10 - Essential (primary) hypertension Status: Acute Assessment and Plan: BP monitored closely. BP mostly well controlled. We continued lisinopril. DS: Summary Hospital Course Reason for hospitalization: 44yo female with DM here for chest pain and possible ventricular tachycardia. Please see H&P for details. Hospital Course
[2020-02-17] MEDS: WARFARIN (*PBKC) 10 MG TABLET PO (17:00)
[2020-02-17 17:32] LABS: Glucose Point of Care 198 (65-105)
[2020-02-17] MEDS: INSULIN DETEMIR 100 UNITS/ML 35 UNITS SUB-Q (21:21)
[2020-02-17 21:33] LABS: Glucose Point of Care 171 (65-105)
[2020-02-18 06:00] VITALS: BP 117/74; PULSE 96; RESP 20; TEMP 36.4; O2SAT 100
[2020-02-18] MEDS: oxyCODONE/ACETAMINOPHEN 5-325 MG TABLET 1 TABLET PO (06:27)
[2020-02-18 07:01] LABS: INR 1.6; Prothrombin Time 18.5 Seconds (11.1-14.7)
[2020-02-18 07:39] LABS: Glucose Point of Care 176 (65-105)
[2020-02-18] MEDS: INSULIN DETEMIR 100 UNITS/ML 35 UNITS SUB-Q (09:32)
[2020-02-18] MEDS: ALPRAZolam 0.5 MG TABLET 1 MG PO (09:34)
[2020-02-18] MEDS: ENOXAPARIN 80 MG/0.8 ML SYRINGE SUB-Q (09:34)
[2020-02-18] MEDS: lisinopriL 20 MG TABLET PO (09:35)
[2020-02-18] MEDS: GABAPENTIN 400 MG CAPSULE 800 MG PO (09:35)
[2020-02-18] MEDS: levETIRAcetam 500 MG TABLET PO (09:35)
[2020-02-18] MEDS: PANTOPRAZOLE 40 MG TABLET PO (09:35)
[2020-02-18] MEDS: ATORVASTATIN 20 MG TABLET PO (09:35)
[2020-02-18] MEDS: PIOGLITAZONE HCL 30 MG TABLET PO (09:38)
[2020-02-18] MEDS: polyethylene glycoL 3350 17 GM POWD.PACK PO (09:38)
--- NOTE | 2020-02-18 11:01 | PM.DS ---
DS: Admitting Diagnosis Admitting Diagnosis Admitting Diagnosis: Ventricular tachycardia DS: Discharge Diagnosis Discharge Diagnosis (1) Dizzy: Code(s): R42 - Dizziness and giddiness Status: Acute Assessment and Plan: Etiology unclear. CT brain showing no acute findings. Carotid US showing no significant stenosis. Echo showing EF 75% without evidence of shunt. She was resumed on Gabapentin 800mg but later stated she should be on a higher dose so Marlena was increased (after verified by pharmacy). Her symptoms came on shortly after the increase in Marlena dose so this was cut back. She may be noncompliant and not use to the higher dose consistently. Her dizziness improved. She was up walking in the halls unassisted and asking for linens so she can make her own bed. Tele showing no significant dysrhythmias. After discharge was complete, patient had recurrent dizzy spell. RN states patient walked to the BR with steady gait and sat on toilet. While RN in the BR, the patient fell forward but was caught by the RN and lowered to the ground. No LOC. No head injury. She was eventually able to stand with two person assist. Glucose 198 and BP and pulse normal. Patient able to ambulate back to her bed without standby assist. Patient's discharge was held and she was monitored overnight without issue. She has been up walking in the room. (2) Chest pain: Qualifiers: Chest pain type: unspecified Qualified Code(s): R07.9 - Chest pain, unspecified Code(s): R07.9 - Chest pain, unspecified Status: Acute Assessment and Plan: Atypical chest pain. Troponins negative x3. EKG showing no acute findings. Patient with a normal V/Q scan. Chest x-ray was clear. New left flank pain is musculoskeletal. (3) Subtherapeutic anticoagulation: Code(s): Z51.81 - Encounter for therapeutic drug level monitoring; Z79.01 - intermediate (current) use of anticoagulants Status: Acute Assessment and Plan: INR 0.9 on admission. Patient has hx of noncompliance with treatment. Patient started on full-dose Lovenox. She has no history of atrial fibrillation. She relates to me that she has had multiple pulmonary emboli and that her last pulmonary embolism was in August. Discussed with PCP who felt patient does not need to be bridged with Coumadin. Long hx of noncompliance with the Coumadin. She was started on Warfarin 7.5mg with INR unchanged so advanced to 10mg. INR 1.6 today. BUN higher at 55 but Hgb remained normal and no evidence of GI bleed. Stools are brown in color without evidence of blood loss. Continue Warfarin at current dose with repeat INR, CBC, BMP as outpatient. (4) Pressure sore on heel, left, unstageable: Code(s): L89.620 - Pressure ulcer of left heel, unstageable Status: Acute Assessment and Plan: Wound care has assessed and small diabetic ulcer. Not topical treatment recommended but only to keep open to air. (5) Diabetes mellitus: Qualifiers: Diabetes mellitus type: type 2 Diabetes mellitus custodial insulin use: without custodial use Diabetes mellitus complication status: without complication Qualified Code(s): E11.9 - Type 2 diabetes mellitus without complications Code(s): E11.9 - Type 2 diabetes mellitus without complications Status: Acute Assessment and Plan: A1c greater than 14. Glucose monitored closely. She was started on Levemir and dose advanced daily. Glucose still in the 200 range. Home Januvia and Actos resumed. Monitored with Accu-Cheks and sliding scale protocol. She was educated about the benefits of diabetic diet. RN states patient with multiple snacks in the room including regular soda. (6) Ventricular tachycardia: Code(s): I47.2 - Ventricular tachycardia Status: Acute Assessment and Plan: It was felt that the concerning cardiac rhythm was artifact. Cardiology did evalu
[2020-02-18] MEDS: NEOMYCIN/POLYMYXIN/BACITRACIN OINTMENT 15 GM TUBE 1 APPLIC TOPICAL (11:16)
[2020-02-18] MEDS: FLUTICASONE PROPIONATE 0.05% NA SPR 16 GM BTL (*BKC) 1 SPRAY NASAL (11:16)
[2020-02-18] MEDS: TRIAMCINOLONE ACET 0.1% CREAM 15 GM TUBE 1 APPLIC TOPICAL (11:16)
[2020-02-18] MEDS: INSULIN ASPART (*BKC) 100 UNITS/ML SUB-Q (11:30)
[2020-02-18 11:32] LABS: Glucose Point of Care 294 (65-105)
--- NOTE | 2020-02-20 07:04 | PC.NURSE ---
Outpatient referral for Initial DSMT and MNT initiated. [facility] and to Dr. Painter.
== END 2020-02-18 11:57 | disposition home or self-care (01) | DRG 201 ==
LOC: ANHED 20:23 → ANHIMU 20:55 → ANHICU 02-13 05:04 → ANH3MEDSUR 02-13 22:31 → ANHICU 02-21 14:42 → ANHIMU 02-21 14:42
PROVIDERS: Emergency Medicine; Internal Medicine; Admitting Provider Family Medicine; Emergency Provider Emergency Medicine; PCP Internal Medicine; Visit Provider Internal Medicine
DX: I47.2 Ventricular tachycardia (principal); E11.65 Type 2 diabetes mellitus with hyperglycemia; E66.01 Morbid (severe) obesity due to excess calories; Z68.41 Body mass index [BMI] 40.0-44.9, adult; R07.89 Other chest pain; L89.620 Pressure ulcer of left heel, unstageable; I10 Essential (primary) hypertension; Z95.0 Presence of cardiac pacemaker; Z86.711 Personal history of pulmonary embolism; Z79.01 Long term (current) use of anticoagulants; J44.9 Chronic obstructive pulmonary disease, unspecified; G40.909 Epilepsy, unspecified, not intractable, without status epilepticus; E78.5 Hyperlipidemia, unspecified; K21.9 Gastro-esophageal reflux disease without esophagitis; F31.9 Bipolar disorder, unspecified; F41.9 Anxiety disorder, unspecified; Z96.653 Presence of artificial knee joint, bilateral; Z87.891 Personal history of nicotine dependence; R42 Dizziness and giddiness
CPT/HCPCS: 36415; 70450; 71045; 78580; 80048; 80053; 80069; 81001; 82607; 82746; 82948; 83036; 83690; 83735; 84443; 84484; 85025; 85027; 85610; 85730; 87086; 87088; 87147; 93005; 93880; 96361; 96365; 96367; 96372; 96375; 99285; A9270; A9540; C8929; J0131; J0282; J1650; J1815; J7030; Q9957

== ENCOUNTER 2020-02-28 16:21 | Emergency (ER) | payer OTHER, SELFPAY ==
--- NOTE | ~2020-02-28 | XR_ITS ---
EXAMINATION: XR chest 2V DATE: 02/28/2020 17:59 INDICATION: Generalized chest pain TECHNIQUE: AP and lateral views of the chest are obtained. COMPARISON: 02/12/2020 FINDINGS: There are opacities of the mid and lower lung zones. There is no pleural effusion or pneumo thorax. The heart size is normal for technique. A dual-lead cardiac pacemaker of the left chest wall ends with leads in expected locations. IMPRESSION: 1. Opacities of the mid and lower lung zones which may reflect atelectasis and/or pneumonia and/or pu lmonary edema. Reviewed, dictated and finalized at location A. IMPRESSION: 1. Opacities of the mid and lower lung zones which may reflect atelectasis and/ or pneumonia and/or pulmonary edema.
[2020-02-28 16:36] VITALS: BP 125/63; PULSE 75; RESP 18; TEMP 36.8; O2SAT 100
--- NOTE | 2020-02-28 16:41 | ECG_ITS ---
Measurements Intervals [place] Rate: 72 P: 42 MA: 163 QRS: 24 QRSD: 75 T: 6 QT: 368 QTc: 405 Interpretive Statements SINUS RHYTHM LOW QRS VOLTAGE IN PRECORDIAL LEADS ANTEROSEPTAL INFARCT, AGE INDETERMINATE BASELINE WANDER- AVL, AVF ABNORMAL ECG Electronically Signed On 02-29-2020 7:21:06 CDT by Kalin Castorena D.O.
[2020-02-28 17:05] LABS: Basophils Percent Auto 0.6 % (0.2-1.2); Eosinophils Absolute Auto 0.2 K/mm3 (0-0.3); Eosinophils Percent Auto 2.9 % (0-4.4); Hematocrit 31.7 % (37.0-47.0); Hemoglobin 10.2 g/dL (12.0-15.0); Immature Granulocyte Absolute 0.03 K/mm3 (0.00-0.031); Immature Granulocyte Percent A 0.6 % (0-0.5); Lymphocytes Absolute Auto 1.45 K/mm3 (0.9-3.2); Lymphocytes Percent Auto 27.9 % (18.3-44.2); Mean Corpuscular HGB Conc 32.2 g/dl (32-36); Mean Corpuscular Hemoglobin 28.9 pg (26-34); Mean Corpuscular Volume 89.8 fl (80-100); Monocytes Absolute Auto 0.6 K/mm3 (0.1-0.6); Platelet Count Result 278 k/mm3 (150-375); Red Blood Count 3.53 M/mm3 (4.2-5.4); Red Cell Distribution Width 14.1 % (11.5-14.5); White Blood Count 5.2 K/mm3 (4.5-10.0)
[2020-02-28 17:15] LABS: Partial Thromboplastin Time 23.2 SECONDS (22.3-36.8); Prothrombin Time 13.3 Seconds (11.1-14.7)
[2020-02-28 17:16] LABS: Blood Urea Nitrogen 11 mg/dL (7-17); Calcium 8.2 mg/dL (8.4-10.2); Carbon Dioxide 29 mmol/L (22-30); Chloride 103 mmol/L (98-107); Estimated Glomerular Filt Rate > 60; Glucose 291 mg/dL (65-105); Potassium 3.8 mmol/L (3.4-5.0); Sodium 135 mmol/L (137-145)
[2020-02-28 17:28] LABS: NT Pro B Type Natriuretic Pept 327 PG/ML (5-100); Troponin I < 0.012 ng/mL (0.000-0.034)
--- NOTE | 2020-02-28 17:41 | PC.NURSE ---
PT IN WAITING ROOM W/ SHOES OFF, LEANED BACK IN WHEELCHAIR C/O INCREASING ABD PAIN. INFORMED PT THAT WE HAVE SENT BLOOD AND ARE AWAITING RESULTS, SHE WILL BE COLLECTED FOR A CHEST XRAY, VSS AT THIS TIME.
[2020-02-28 17:42] VITALS: BP 136/80; PULSE 73; RESP 19; TEMP 36.6; O2SAT 99
--- NOTE | 2020-02-28 19:13 | ED.GENADULT ---
HPI - General Adult General Chief complaint: Unspecified Stated complaint: everything Time Seen by Provider: 02/28/20 19:10 History of Present Illness HPI narrative: She reports that she hurts everywhere from her ankles to her chest. She says that she has had that pain since she was discharged from the hospital 4 days ago. On chart review she was admitted at that time for possible arrythmia, although this was later determined to be artifact. Related Data Home Medications Medication Instructions Recorded Confirmed lisinopril 20 mg PO DAILY 06/15/19 02/12/20 albuterol sulfate [ProAir HFA] 2 puff INHALATION Q4H PRN 08/21/19 02/12/20 atorvastatin 20 mg PO DAILY 08/21/19 02/12/20 glipizide 10 mg PO DAILY 08/21/19 02/12/20 omeprazole 20 mg PO DAILY 08/21/19 02/12/20 Januvia 100 mg PO DAILY 09/24/19 02/12/20 fluticasone propionate 1 spray INTRANASAL BID 02/12/20 02/12/20 gabapentin 800 mg PO QID 02/12/20 02/12/20 glycopyrrolate 1 mg PO DAILY PRN 02/12/20 02/12/20 pioglitazone 30 mg PO DAILY 02/12/20 02/12/20 levetiracetam [Keppra] 500 mg PO BID 02/14/20 02/14/20 Allergies Allergy/AdvReac Type Severity Reaction Status Date / Time lidocaine Allergy Intermediate HIVES Verified 02/12/20 16:20 nitroglycerin Allergy Intermediate HIVES Verified 02/12/20 16:20 aspirin Allergy Mild Hives Verified 02/12/20 16:20 citalopram Allergy Mild Rash Verified 02/15/20 20:35 escitalopram Allergy Mild Hives Verified 02/15/20 20:38 ibuprofen Allergy Mild Hives Verified 02/12/20 16:20 Penicillins Allergy Mild HIVES PER Verified 02/12/20 16:20 UNCODED ALLERGIES 08/27/12 procaine Allergy Mild Hives Verified 02/15/20 20:39 propoxyphene Allergy Mild Hives Verified 02/15/20 20:41 tramadol Allergy Mild Hives Verified 02/12/20 16:20 doxycycline Allergy Unknown Hives Verified 02/12/20 16:20 meloxicam Allergy Unknown HIVES Verified 02/12/20 16:20 Sulfa (Sulfonamide Allergy Unknown HIVES PER Verified 02/12/20 16:20 Antibiotics) UNCODED ALLERGIES 08/27/12 sulfamethoxazole Allergy Unknown Hives Verified 02/12/20 16:20 trimethoprim Allergy Unknown Hives Verified 02/12/20 16:20 adhesive AdvReac Unknown SILK TAPE= Verified 02/12/20 16:20 HIVES Review of Systems Review of Systems: All systems reviewed & are unremarkable except as noted in HPI and below Constitutional: Constitutional: Reports weakness Cardiovascular: Cardiovascular: Reports chest pain and Reports rapid heart rate Respiratory: Respiratory: Reports dyspnea Gastrointestinal: Gastrointestinal: Reports abdominal pain Musculoskeletal: Musculoskeletal: Reports back pain Neurologic: Reports weakness PMFSH Past Medical History Medical History Anemia Anxiety Arthritis Asthma Bipolar disorder COPD (chronic obstructive pulmonary disease) Depression Diabetes mellitus DVT (deep venous thrombosis) Eczema Epilepsy Foot fracture, right GERD (gastroesophageal reflux disease) Herniated disc HTN (hypertension) Hyperlipidemia MRSA (methicillin resistant staph aureus) culture positive Obesity Pacemaker Peripheral neuropathy Pulmonary embolism Seizures Sleep apnea Suicide attempt Ulcer UTI (urinary tract infection) Surgical History Surgical History History of bilateral knee replacement History of cholecystectomy Family History Family History Mother Heart disease Acute myocardial infarction Uterine cancer Social History Social History Smoking packs per day: 2.5 Smoking cigarettes per day: 50.0 Years smoked: 9 Smoking pack-years: 22.50 Smoking status: Former smoker Tobacco type: cigarettes Second hand tobacco smoke exposure: Yes Alcohol intake: never Substance use: never Gender identity (if verbalized by the evelia
[2020-02-28 19:30] VITALS: BP 123/69; PULSE 78; RESP 15; O2SAT 99
[2020-02-28 20:18] VITALS: PULSE 83
[2020-02-28 20:32] LABS: Troponin I < 0.012 ng/mL (0.000-0.034)
--- NOTE | 2020-02-28 20:51 | PC.NURSE ---
Due to monitor showing pt in V-tach and having HR in upper 170s then falling down to having a HR in the 80's, this nurse went to assess the Pt. Upon entering room pt looked to have been rubbing hand against area where her pacemaker is located. This nurse stayed in Pt room for about 10 min asking questions about pain and updating vitals, while in the room Pt states her legs back and stomach hurts, she denies feel any chest pain or feeling her heart race at any time. MD Chaparro notified, he assessed rhythm and states it looked inaccurate due to the P wave being shown.
--- NOTE | 2020-02-28 20:55 | PC.NURSE ---
ERP in room to talk to pt before discharge at this time.
[2020-02-28 20:59] VITALS: BP 133/68; PULSE 78; RESP 18; O2SAT 99
[2020-02-28 21:15] VITALS: BP 133/77; PULSE 78; RESP 18; O2SAT 98
== END 2020-02-28 21:15 | disposition home or self-care (01) ==
PROVIDERS: Emergency Medicine; Emergency Provider Emergency Medicine; PCP Internal Medicine
DX: E11.42 Type 2 diabetes mellitus with diabetic polyneuropathy (principal); J44.9 Chronic obstructive pulmonary disease, unspecified; M19.90 Unspecified osteoarthritis, unspecified site; Z86.718 Personal history of other venous thrombosis and embolism; G40.909 Epilepsy, unspecified, not intractable, without status epilepticus; K21.9 Gastro-esophageal reflux disease without esophagitis; I10 Essential (primary) hypertension; E78.5 Hyperlipidemia, unspecified; Z95.0 Presence of cardiac pacemaker; Z86.711 Personal history of pulmonary embolism; G47.30 Sleep apnea, unspecified
CPT/HCPCS: 36415; 71046; 80048; 83880; 84484; 85025; 85610; 85730; 93005; 99284

== ENCOUNTER 2020-03-06 18:24 | Observation (INO) | payer OTHER, SELFPAY ==
[2020-03-06] VITALS (11 sets, daily range): BP systolic 110–171; BP diastolic 56–98; PULSE 70–83; RESP 13–22; TEMP 36.4–36.7; O2SAT 94–100; BMI 42.6
--- NOTE | ~2020-03-06 | CT_ITS ---
EXAMINATION: CT cervical spine wo con DATE: 03/06/2020 19:35 INDICATION: Syncope. Head and neck pain. TECHNIQUE: Computed tomography (CT) of the cervical spine was performed without intravenous contrast. The dose-length product was 525 mGy-cm. Automated exposure control and iterative reconstruction tech nique were employed. COMPARISON: None FINDINGS: No acute fracture or traumatic malalignment. Vertebral body and disc heights are preserved. There are bilateral pleural effusions. Odontoid process is normal. Mild levocurvature of the cervica l spine. No significant paraspinal soft tissue abnormality. IMPRESSION: 1. No acute abnormality of the cervical spine. 2: Small pleural effusions. Reviewed, dictated and finalized at location A.
--- NOTE | ~2020-03-06 | CT_ITS ---
EXAMINATION: CT BRAIN W/O DATE: 03/06/2020 19:35 INDICATION: Headache after fall TECHNIQUE: Computed tomography (CT) of the head was performed without intravenous contrast. The dose- length product was 605.33 mGy-cm. The mA was adjusted according to patient size. Iterative reconstruc tion technique was employed. COMPARISON: CT dated 02/17/2020 FINDINGS: Normal brain parenchymal volume for age. Normal maguire-white differentiation. No acute intrac ranial hemorrhage, infarction, mass or mass effect. No ventriculomegaly or midline shift. Midline sagittal images demonstrate a normal corpus callosum, c raniovertebral junction and sella turcica. Basilar cisterns are patent. Paranasal sinuses and mastoids are pneumatized. No depressed skull fractures. IMPRESSION: 1. No acute intracranial abnormality. Reviewed, dictated and finalized at location A.
--- NOTE | ~2020-03-06 | XR_ITS ---
XR chest 1V portable 03/06/2020 20:49 Indication: Syncope. Hypertension. Ventricular tachycardia. Procedure: AP portable chest Comparison: 02/28/2020 Findings: Pacemaker leads are stable. There is mild interstitial edema. Stable cardiomediastinal silh ouette. No pleural effusion or pneumothorax. Impression: 1: Mild interstitial edema. Reviewed, dictated and finalized at location A. Impression: 1: Mild interstitial edema.
--- NOTE | 2020-03-06 08:31 | ECG_ITS ---
Measurements Intervals [place] Rate: 80 P: 46 [place]: 155 QRS: 22 QRSD: 78 T: 16 QT: 360 QTc: 418 Interpretive Statements SINUS RHYTHM LOW QRS VOLTAGE IN PRECORDIAL LEADS BORDERLINE ECG Electronically Signed On 03-07-2020 6:46:33 CDT by Kalin Castorena D.O.
[2020-03-06 18:54] LABS: Basophils Percent Auto 0.3 % (0.2-1.2); Eosinophils Absolute Auto 0.1 K/mm3 (0-0.3); Eosinophils Percent Auto 2.6 % (0-4.4); Hematocrit 37.3 % (37.0-47.0); Immature Granulocyte Absolute 0.02 K/mm3 (0.00-0.031); Immature Granulocyte Percent A 0.6 % (0-0.5); Lymphocytes Absolute Auto 1.33 K/mm3 (0.9-3.2); Lymphocytes Percent Auto 38.1 % (18.3-44.2); Mean Corpuscular HGB Conc 32.2 g/dl (32-36); Mean Corpuscular Hemoglobin 29.1 pg (26-34); Mean Corpuscular Volume 90.3 fl (80-100); Mean Platelet Volume 10.4 fl (7.4-10.4); Monocytes Absolute Auto 0.4 K/mm3 (0.1-0.6); Monocytes Percent Auto 10.9 % (2.6-8.5); Neutrophils Absolute Auto 1.7 K/mm3 (1.3-6.7); Neutrophils Percent Auto 47.5 % (45.5-73.1); Platelet Count Result 195 k/mm3 (150-375); Red Blood Count 4.13 M/mm3 (4.2-5.4); Red Cell Distribution Width 14.1 % (11.5-14.5); White Blood Count 3.5 K/mm3 (4.5-10.0)
[2020-03-06 18:57] LABS: Add Urine Microscopic? YES; Appearance Urine Clear (Clear); Bacteria Urine Trace /hpf; Bilirubin Urine Negative (Negative); Blood Urine Negative (Negative); Color Urine Colorless (Yellow); Glucose Urine UA 3+ mg/dL (Negative); Ketones Urine Negative (Negative); Leukocyte Esterase Ur Trace LEU/UL (Negative); Mucus Urine Rare /lpf; Nitrate Urine Negative (Negative); Protein Urine 1+ mg/dL (Negative); RBC Urine 0-2 /hpf (0-2); Squamous Epithelial Cell Urine Occasional /hpf (Few); Urobilinogen Urine Negative mg/dL (<2.0); WBC Urine 0-3 /hpf
--- NOTE | 2020-03-06 18:58 | PC.NURSE ---
185 PT NOTED TO BE IN VTACH ON MONITOR, SELF CONVERTED BACK TO NORMAL SR IN 10 SECONDS, PT PLACED ON PADS AND CRASH CART AT BEDSIDE, MEGAN MOLINA INFORMED, STATES HE WILL PLACE ORDER FOR AMIODARONE.
[2020-03-06] MEDS: AMIODARONE 150 MG/D5W 100 ML 150 MG/100 ML BAG 600 MG IV CONT (19:02)
[2020-03-06 19:04] LABS: Anion Gap 9.6 mmol/L (7-16); Blood Urea Nitrogen 19 mg/dL (7-17); Calcium 8.8 mg/dL (8.4-10.2); Carbon Dioxide 32 mmol/L (22-30); Chloride 101 mmol/L (98-107); Estimated Glomerular Filt Rate > 60; Glucose 230 mg/dL (65-105); Potassium 4.6 mmol/L (3.4-5.0); Sodium 138 mmol/L (137-145)
[2020-03-06] MEDS: AMIODARONE 360 MG/D5W 200 ML 360 MG/200 ML BAG 33.3 MG IV CONT (19:06)
--- NOTE | 2020-03-06 19:09 | ED.SYNCOPE ---
HPI - Syncope General Chief Complaint: Syncope Stated Complaint: SYNCOPE Time Seen by Provider: 03/06/20 18:50 Source: patient History of Present Illness HPI narrative: 44 years old white female found un[place] In the emergency room patient denying any symptoms except chronic back pain. Patient does not recall any pain. MD complaint: loss of consciousness Related Data Home Medications Medication Instructions Recorded Confirmed lisinopril 20 mg PO DAILY 06/15/19 02/12/20 albuterol sulfate [ProAir HFA] 2 puff INHALATION Q4H PRN 08/21/19 02/12/20 atorvastatin 20 mg PO DAILY 08/21/19 02/12/20 glipizide 10 mg PO DAILY 08/21/19 02/12/20 omeprazole 20 mg PO DAILY 08/21/19 02/12/20 Januvia 100 mg PO DAILY 09/24/19 02/12/20 fluticasone propionate 1 spray INTRANASAL BID 02/12/20 02/12/20 gabapentin 800 mg PO QID 02/12/20 02/12/20 glycopyrrolate 1 mg PO DAILY PRN 02/12/20 02/12/20 pioglitazone 30 mg PO DAILY 02/12/20 02/12/20 levetiracetam [Keppra] 500 mg PO BID 02/14/20 02/14/20 furosemide 20 mg PO BID 03/06/20 potassium chloride 8 meq PO DAILY 03/06/20 Allergies Allergy/AdvReac Type Severity Reaction Status Date / Time lidocaine Allergy Intermediate HIVES Verified 03/06/20 18:59 nitroglycerin Allergy Intermediate HIVES Verified 03/06/20 18:59 aspirin Allergy Mild Hives Verified 03/06/20 18:59 citalopram Allergy Mild Rash Verified 03/06/20 18:59 escitalopram Allergy Mild Hives Verified 03/06/20 18:59 ibuprofen Allergy Mild Hives Verified 03/06/20 18:59 Penicillins Allergy Mild HIVES PER Verified 03/06/20 18:59 UNCODED ALLERGIES 08/27/12 procaine Allergy Mild Hives Verified 03/06/20 18:59 propoxyphene Allergy Mild Hives Verified 03/06/20 18:59 tramadol Allergy Mild Hives Verified 03/06/20 18:59 doxycycline Allergy Unknown Hives Verified 03/06/20 18:59 meloxicam Allergy Unknown HIVES Verified 03/06/20 18:59 Sulfa (Sulfonamide Allergy Unknown HIVES PER Verified 03/06/20 18:59 Antibiotics) UNCODED ALLERGIES 08/27/12 sulfamethoxazole Allergy Unknown Hives Verified 03/06/20 18:59 trimethoprim Allergy Unknown Hives Verified 03/06/20 18:59 adhesive AdvReac Unknown SILK TAPE= Verified 03/06/20 18:59 HIVES Review of Systems Review of Systems: Narrative: CONSTITUTIONAL: Denies fever, chills, or sweats. EYES: Denies visual changes, redness, or discharge. ENT: Denies rhinorrhea, congestion, sore throat, or otalgia. CARDIOVASCULAR: Denies chest pain, palpitations, or edema. RESPIRATORY: Denies cough or dyspnea. GASTROINTESTINAL: Denies abdominal pain, nausea, vomiting, or diarrhea. GENITOURINARY: Denies dysuria or hematuria. SKIN: Denies rash or itching. MUSCULOSKELETAL: Denies back pain, joint pain, or myalgia. NEUROLOGIC: Denies headache, numbness, or weakness. PSYCHIATRIC: Denies anxiety or depression. [facility] Past Medical History Medical History Anemia Anxiety Arthritis Asthma Bipolar disorder COPD (chronic obstructive pulmonary disease) Depression Diabetes mellitus DVT (deep venous thrombosis) Eczema Epilepsy Foot fracture, right GERD (gastroesophageal reflux disease) Herniated disc HTN (hypertension) Hyperlipidemia MRSA (methicillin resistant staph aureus) culture positive Obesity Pacemaker Peripheral neuropathy Pulmonary embolism Seizures Sleep apnea Suicide attempt Ulcer UTI (urinary tract infection) Surgical History Surgical History History of bilateral knee replacement History of cholecystectomy Family History Family History Mother Heart disease Acute myocardial infarction Uterine cancer Social History Social History Smoking packs per day: 2.5 Smoking cigarettes per day: 50.0 Years smoked: 9 Smoking pack-years: 22.[address]
--- NOTE | 2020-03-06 19:16 | PC.NURSE ---
PT REPORT GIVEN TO TYRELL CHANEY AT THIS TIME, SHE HAS ASSUMED PT CARE.
[2020-03-06] MEDS: MORPHINE SULFATE 4 MG/ML INJ IV PUSH (20:03)
[2020-03-06] MEDS: ONDANSETRON INJ 4 MG/2 ML VIAL IV PUSH (20:03)
--- NOTE | 2020-03-06 22:36 | ADMGEN ---
This patient, Valerie Nguyen, was admitted to IMU Room 203-01 from ER 03/06/20 [id number].. Patient/family oriented to hospital policies and general routines including ID bracelet, bed and alarms, visiting hours, pain management, procedures, bathroom and other care routines, personal items, smoking policy, room service/diet, and visiting hours. Valuables list has been completed. Information on how to activate the Rapid Response Team has been discussed. Patient/Family are encouraged to report perceived risks to care and to ask questions if they do not understand what they are told or what they should do.
[2020-03-06] MEDS: AMIODARONE 360 MG/D5W 200 ML 360 MG/200 ML BAG 16.7 MG IV CONT (23:45)
[2020-03-07] VITALS (10 sets, daily range): BP systolic 111–145; BP diastolic 59–87; PULSE 70–71; RESP 14–20; TEMP 36.2–36.7; O2SAT 96–100
[2020-03-07] MEDS: oxyCODONE/ACETAMINOPHEN 5-325 MG TABLET 1 TABLET PO (05:10)
[2020-03-07 08:08] LABS: Glucose Point of Care 223 (65-105)
[2020-03-07] MEDS: diphenhydrAMINE HCl CAP 25 MG CAPSULE PO (09:01)
--- NOTE | 2020-03-07 09:35 | PM.CNCAR ---
Assessment and Plan Assessment and plan (1) Ventricular tachycardia (paroxysmal): Code(s): I47.2 - Ventricular tachycardia Status: Acute Assessment and Plan: Reported ventricular tachycardia is again artifact. This is not real. Last hospitalization early February with consult for the same reason also confirm arrhythmia. We have no documentation of a ventricular arrhythmia today. Interrogation of pacemaker once again today also confirms the absence of any tachyarrhythmias (SVT or VT), 58% AP, no OCCUPATIONAL THERAPY DIRECTOR, HR <100bpm overall. Review of telemetry strips in question clearly show sinus mechanism marching through artifact with appropriately corresponding plethysmography with an unchanged consistent sinus rhythm emerging upon clearing of the artifact. DISCONTINUE AMIODARONE. There needs to be more careful assessment of telemetry strips. No further workup or evaluation in this regard. She has had multiple cardiac evaluations including Echo and LHC which were unremarkable with preserved LV systolic function without significant valvular pathology or outflow tract obstruction. There is no clear cardiac contribution, other than possible orthostasis. (2) Syncope: Qualifiers: Syncope type: unspecified Qualified Code(s): R55 - Syncope and collapse Code(s): R55 - Syncope and collapse Status: Acute Assessment and Plan: Questionable syncopal episode. Patient account variable and inconsistent. Patient states she initially has no recollection of any preceding events in states she had previously been feeling dizzy but not right before this episode. She later admits she was sat down on a bench and next thing she recalls is EMS waking her up. EMS reports she was alert and orient x3 upon arrival lying on her right side. Lasix is not advised. Check orthostatics. (3) Pacemaker: Code(s): Z95.0 - Presence of cardiac pacemaker Status: Acute Assessment and Plan: Implanted for reported bradyarrhythmia with associated loss of consciousness. Followed by with heart and vascular Dr. Felton. She will return to his care upon discharge. PPM interrogation Normal. She has had multiple device interrogations in the past few weeks which have all been unremarkable. 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 (4) Frequent falls: Code(s): R29.6 - Repeated falls Status: Acute Assessment and Plan: Deferred to primary service. Clearly, this is a problem given systemic anticoagulation. I discussed this with the patient in detail. Clinically, I feel her risk far outweighs benefit but as she is on anticoagulation for DVT/PE history I will defer this to the primary service regarding appropriate ongoing use of anticoagulation in this patient. (5) Chronic anticoagulation: Code(s): Z79.01 - long term care pharmacist (current) use of anticoagulants Status: Acute Assessment and Plan: As above. Patient switched to Eliquis due to noncompliance with warfarin. (6) History of pulmonary embolism: Code(s): Z86.711 - Personal history of pulmonary embolism Status: Acute Assessment and Plan: She has had 2 normal ventilation perfusion scans so far this year in our system. Defer to primary service. (7) Noncompliance: Code(s): Z91.19 - Patient's noncompliance with other medical treatment and regimen Status: Acute Assessment and Plan: There has been report patient is homeless and patient indicates she was just discharged from inpatient psychiatric care 2 days prior to admission and now reports once again to the ER. She has multiple margin department visits here at [facility] as well as several other hospitals and emergency departments including [facility] (where she was apparently intoxicated with cocaine) she has visited spans a fairly large swath of the surrounding area. 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 History of Pr
[2020-03-07 10:15] LABS: Hematocrit 33.3 % (37.0-47.0); Hemoglobin 10.5 g/dL (12.0-15.0); Mean Corpuscular HGB Conc 31.5 g/dl (32-36); Mean Corpuscular Hemoglobin 28.6 pg (26-34); Mean Corpuscular Volume 90.7 fl (80-100); Mean Platelet Volume 10.4 fl (7.4-10.4); Platelet Count Result 158 k/mm3 (150-375); Red Blood Count 3.67 M/mm3 (4.2-5.4); Red Cell Distribution Width 14.6 % (11.5-14.5); White Blood Count 2.4 K/mm3 (4.5-10.0)
[2020-03-07 11:54] LABS: Glucose Point of Care 311 (65-105)
--- NOTE | 2020-03-07 14:53 | PM.IMHP ---
H&P: HPI History of Present Illness Chief complaint: Syncope, paroxysman V. tach Narrative: Valerie Nguyen is a 44 year old female patient is a 44 year old unfortunate female with history of diabetes, coronary artery disease, history of ventricle tachycardia, homelessness, history of drug abuse including cocaine, patient was found at the bus stop laying down there was a concern the patient was unresponsive and and ventricle tachycardia will brought to emergency department further evaluate, started on amiodarone drip, patient was seen by Cardiology and did not suspect the patient had ventricular tachycardia, and amiodarone was stopped, patient clinically stable at the present denies any complaint of chest pain shortness of breath palpitation fever or chills. [facility] Past Medical History Medical History Anemia Anxiety Arthritis Asthma Bipolar disorder COPD (chronic obstructive pulmonary disease) Depression Diabetes mellitus DVT (deep venous thrombosis) Eczema Epilepsy Foot fracture, right GERD (gastroesophageal reflux disease) Herniated disc HTN (hypertension) Hyperlipidemia MRSA (methicillin resistant staph aureus) culture positive Obesity Pacemaker Peripheral neuropathy Pulmonary embolism Seizures Sleep apnea Suicide attempt Ulcer UTI (urinary tract infection) Surgical History Surgical History History of bilateral knee replacement History of cholecystectomy Family History Family History Mother Heart disease Acute myocardial infarction Uterine cancer Social History Social History Smoking packs per day: 2.5 Smoking cigarettes per day: 50.0 Years smoked: 9 Smoking pack-years: 22.50 Smoking status: Former smoker Tobacco type: cigarettes Second hand tobacco smoke exposure: Yes Smoking end date: 08/10/19 Alcohol intake: never Substance use: never Gender identity (if verbalized by the patient): Female Spiritual care concerns: Yes (Father Adriano (christianity)) Meds Home Medications and Allergies Home Medications Medication Instructions Recorded Confirmed Type lisinopril 20 mg PO DAILY 06/15/19 03/07/20 History albuterol sulfate [ProAir HFA] 2 puff INHALATION Q4H PRN 08/21/19 03/07/20 History atorvastatin 20 mg PO DAILY 08/21/19 03/07/20 History glipizide 10 mg PO DAILY 08/21/19 03/07/20 History omeprazole 20 mg PO DAILY 08/21/19 03/07/20 History Januvia 100 mg PO DAILY 09/24/19 03/07/20 History acetaminophen 500 mg PO Q4-6H PRN #7 tablet 11/14/19 03/07/20 Rx fluticasone propionate 1 spray INTRANASAL BID 02/12/20 03/07/20 History gabapentin 800 mg PO QID 02/12/20 03/07/20 History glycopyrrolate 1 mg PO DAILY PRN 02/12/20 03/07/20 History pioglitazone 30 mg PO DAILY 02/12/20 03/07/20 History levetiracetam [Keppra] 500 mg PO BID 02/14/20 03/07/20 History blood sugar diagnostic [Pharmacist #10 each 02/17/20 03/07/20 Rx Choice] pen needle, diabetic #30 each 02/17/20 03/07/20 Rx alprazolam 1 mg PO TID PRN #10 tablet 02/18/20 03/07/20 Rx furosemide 20 mg PO BID 03/06/20 03/07/20 History potassium chloride 20 meq PO DAILY 03/06/20 03/06/20 History oxycodone-acetaminophen 1 tablet PO TID PRN 03/07/20 03/07/20 History Allergies Allergy/AdvReac Type Severity Reaction Status Date / Time lidocaine Allergy Intermediate HIVES Verified 03/06/20 18:59 nitroglycerin Allergy Intermediate HIVES Verified 03/06/20 18:59 aspirin Allergy Mild Hives Verified 03/06/20 18:59 citalopram Allergy Mild Rash Verified 03/06/20 18:59 escitalopram Allergy Mild Hives Verified 03/06/20 18:59 ibuprofen Allergy Mild Hives Verified 03/06/20 18:59 Penicillins Allergy Mild HIVES PER Verified 03/06/20 18:59 UNCODED ALLERGIES 08/27/12 procaine Allergy Mild Hives Verified 03/06/20 18:59 propoxyp
[2020-03-07 15:59] LABS: Glucose Point of Care 284 (65-105)
[2020-03-07] MEDS: FUROSEMIDE 20 MG TABLET PO (16:10)
[2020-03-07] MEDS: GABAPENTIN 400 MG CAPSULE 800 MG PO ×3 (16:10→21:45)
[2020-03-07] MEDS: FLUTICASONE PROPIONATE 0.05% NA SPR 16 GM BTL (*BKC) 1 SPRAY NASAL (16:11)
[2020-03-07] MEDS: INSULIN ASPART (*BKC) 100 UNITS/ML SUB-Q (16:11)
[2020-03-07 21:06] LABS: Glucose Point of Care 332 (65-105)
[2020-03-07] MEDS: levETIRAcetam 500 MG TABLET PO (21:45)
[2020-03-07] MEDS: APIXABAN 5 MG TABLET PO (21:45)
[2020-03-07] MEDS: ALPRAZolam 0.5 MG TABLET 1 MG PO (21:47)
[2020-03-08] VITALS: PULSE 70
[2020-03-08 04:00] VITALS: BP 143/90; PULSE 70; PULSE 71; RESP 20; TEMP 36.6; O2SAT 97
[2020-03-08 04:59] LABS: Hematocrit 33.2 % (37.0-47.0); Hemoglobin 10.2 g/dL (12.0-15.0); Mean Corpuscular HGB Conc 30.7 g/dl (32-36); Mean Corpuscular Hemoglobin 27.9 pg (26-34); Mean Corpuscular Volume 90.7 fl (80-100); Mean Platelet Volume 10.3 fl (7.4-10.4); Platelet Count Result 174 k/mm3 (150-375); Red Blood Count 3.66 M/mm3 (4.2-5.4); Red Cell Distribution Width 14.2 % (11.5-14.5); White Blood Count 2.3 K/mm3 (4.5-10.0)
[2020-03-08 05:18] LABS: Anion Gap 8.1 mmol/L (7-16); Blood Urea Nitrogen 17 mg/dL (7-17); Calcium 8.7 mg/dL (8.4-10.2); Carbon Dioxide 32 mmol/L (22-30); Chloride 101 mmol/L (98-107); Estimated Glomerular Filt Rate > 60; Glucose 320 mg/dL (65-105); Potassium 4.1 mmol/L (3.4-5.0); Sodium 137 mmol/L (137-145)
[2020-03-08] MEDS: glipiZIDE 5 MG TABLET 10 MG PO (06:46)
[2020-03-08 08:00] VITALS: BP 149/68; PULSE 71; PULSE 72; RESP 16; TEMP 36.5; O2SAT 99
[2020-03-08 08:09] LABS: Glucose Point of Care 343 (65-105)
[2020-03-08] MEDS: INSULIN ASPART (*BKC) 100 UNITS/ML 6 UNITS SUB-Q (08:26)
[2020-03-08] MEDS: POTASSIUM CHLORIDE 20 MEQ TABLET PO (08:27)
[2020-03-08] MEDS: GABAPENTIN 400 MG CAPSULE 800 MG PO ×2 (08:27→12:51)
[2020-03-08] MEDS: PANTOPRAZOLE 40 MG TABLET PO (08:27)
[2020-03-08] MEDS: levETIRAcetam 500 MG TABLET PO (08:27)
[2020-03-08] MEDS: GLYCOPYRROLATE 1 MG TABLET PO (08:27)
[2020-03-08] MEDS: PIOGLITAZONE HCL 30 MG TABLET PO (08:28)
[2020-03-08] MEDS: APIXABAN 5 MG TABLET PO (08:28)
[2020-03-08] MEDS: lisinopriL 20 MG TABLET PO (08:28)
[2020-03-08] MEDS: ATORVASTATIN 20 MG TABLET PO (08:28)
[2020-03-08] MEDS: FUROSEMIDE 20 MG TABLET PO (08:28)
[2020-03-08] MEDS: FLUTICASONE PROPIONATE 0.05% NA SPR 16 GM BTL (*BKC) 1 SPRAY NASAL (08:28)
[2020-03-08] MEDS: oxyCODONE/ACETAMINOPHEN 5-325 MG TABLET 1 TABLET PO (08:33)
[2020-03-08 10:00] VITALS: PULSE 77
--- NOTE | 2020-03-08 11:48 | PM.DS ---
DS: Admitting Diagnosis Admitting Diagnosis Admitting Diagnosis: Ventricular tachycardia DS: Discharge Diagnosis Discharge Diagnosis (1) Ventricular tachycardia (paroxysmal): Code(s): I47.2 - Ventricular tachycardia Status: Acute Assessment and Plan: Valerie Nguyen is a 44 year old female patient is a 44 year old unfortunate female with history of diabetes, coronary artery disease, history of ventricle tachycardia, homelessness, history of drug abuse including cocaine, patient was found at the bus stop laying down there was a concern the patient was unresponsive and and ventricle tachycardia will brought to emergency department further evaluate, started on amiodarone drip, patient was seen by Cardiology and did not suspect the patient had ventricular tachycardia, and amiodarone was stopped, patient clinically stable at the present denies any complaint of chest pain shortness of breath palpitation fever or chills. (2) Pacemaker: Code(s): Z95.0 - Presence of cardiac pacemaker Status: Acute Assessment and Plan: patient pacemaker was interrogated is functioning normally (3) Syncope: Qualifiers: Syncope type: unspecified Qualified Code(s): R55 - Syncope and collapse Code(s): R55 - Syncope and collapse Status: Acute Assessment and Plan: etiology uncertain most likely secondary to brief ventricular tachycardia patient has history frequent fall (4) Diabetes mellitus: Qualifiers: Diabetes mellitus type: type 2 Diabetes mellitus exterminator helper insulin use: without exterminator helper use Diabetes mellitus complication status: without complication Qualified Code(s): E11.9 - Type 2 diabetes mellitus without complications Code(s): E11.9 - Type 2 diabetes mellitus without complications Status: Acute Assessment and Plan: will continue home regimen and monitor (5) History of pulmonary embolism: Code(s): Z86.711 - Personal history of pulmonary embolism Status: Acute Assessment and Plan: did not see Rhonda in her medication will get more details and if needed will add to her medication DS: Summary Hospital Course Reason for hospitalization: Chief complaint: Syncope, paroxysman V. tach Narrative: Valerie Nguyen is a 44 year old female patient is a 44 year old unfortunate female with history of diabetes, coronary artery disease, history of ventricle tachycardia, homelessness, history of drug abuse including cocaine, patient was found at the bus stop laying down there was a concern the patient was unresponsive and and ventricle tachycardia will brought to emergency department further evaluate, started on amiodarone drip, patient was seen by Cardiology and did not suspect the patient had ventricular tachycardia, and amiodarone was stopped, patient clinically stable at the present denies any complaint of chest pain shortness of breath palpitation fever or chills. Hospital Course: Valerie gNuyen is a 44 year old female patient is a 44 year old unfortunate female with history of diabetes, coronary artery disease, history of ventricle tachycardia, homelessness, history of drug abuse including cocaine, patient was found at the bus stop laying down there was a concern the patient was unresponsive and and ventricle tachycardia will brought to emergency department further evaluate, started on amiodarone drip, patient was seen by Cardiology and did not suspect the patient had ventricular tachycardia, and amiodarone was stopped, patient clinically stable at the present denies any complaint of chest pain shortness of breath palpitation fever or chills. today patient is clinically stable heart rate is controlled will discharge her today Status at Discharge Functional status at discharge: independent ambulation Overall status at discharge: patient is back to baseline Time Spent with Patient Time attestation: Total time spent providing and/or coordinating d
== END 2020-03-08 13:06 | disposition home or self-care (01) ==
LOC: ANHED 22:06 → ANHIMU 23:14
PROVIDERS: Emergency Medicine; Admitting Provider Internal Medicine; Emergency Provider Emergency Medicine; PCP Internal Medicine; Visit Provider Family Medicine
DX: I47.2 Ventricular tachycardia (principal); R55 Syncope and collapse; E11.9 Type 2 diabetes mellitus without complications; J90 Pleural effusion, not elsewhere classified; R29.6 Repeated falls; R51 Headache; Z86.711 Personal history of pulmonary embolism; Z91.19 Patient's noncompliance with other medical treatment and regimen; Z95.0 Presence of cardiac pacemaker; Z96.653 Presence of artificial knee joint, bilateral; Z79.01 Long term (current) use of anticoagulants; Z87.891 Personal history of nicotine dependence; Z79.4 Long term (current) use of insulin
CPT/HCPCS: 36415; 70450; 71045; 72125; 80048; 80299; 81001; 81025; 83036; 85025; 85027; 93005; 96360; 96361; 96365; 96366; 96375; 97161; 99285; A9270; G0378; G0379; J0282; J1815; J2270; J2405

== ENCOUNTER 2020-03-20 14:54 | Emergency (ER) | payer OTHER, SELFPAY ==
--- NOTE | ~2020-03-20 | XR_ITS ---
EXAMINATION: XR chest 2V EXAM DATE: 03/20/2020 16:39 INDICATION: Mid chest pain. Diarrhea and dizziness. History of hypertension. TECHNIQUE: Portable AP frontal chest x-ray was obtained. Comparison is made to prior examination from 03/06/2020. FINDINGS: There is a dual lead pacemaker/AICD seen with leads projecting over the expected locations of the right atrial appendage and right ventricle. The lungs are clear. There are no pleural effusio ns. Cardiac silhouette is prominent but magnified on this AP technique. There is no pneumothorax s uspected. The bones and soft tissues are unremarkable. IMPRESSION: No acute cardiopulmonary findings. Reviewed, dictated and finalized at location A.
--- NOTE | ~2020-03-20 | CT_ITS ---
EXAMINATION: CT brain wo con EXAM DATE: 03/20/2020 18:05 INDICATION: Right-sided paresthesia. TECHNIQUE: Spiral CT of the head was performed without contrast. Axial, coronal and sagittal images were reviewed. The dose-length product (DLP) for this examination was 605.33 mGy-cm. The exposure w as tailored according to patient size, and iterative reconstruction (ASIR) was used as additional dos e reduction technique. Comparison is made to prior examination from 03/06/2020. FINDINGS: There is no acute intraparenchymal hemorrhage. No evidence of intraparenchymal brain mass lesion. No evidence of acute infarction. There is no mass effect or midline shift. The ventricles are normal in size. There are no extra-axial collections. There are no acute calvarial fractures. T he orbits are unremarkable. Soft tissue is unremarkable. The visualized sinuses and mastoid air parish ls are well aerated. IMPRESSION: 1. Normal head CT examination. Reviewed, dictated and finalized at location A.
[2020-03-20 15:26] VITALS: BP 139/70; PULSE 91; RESP 16; TEMP 36.8; O2SAT 100
--- NOTE | 2020-03-20 15:39 | ECG_ITS ---
Measurements Intervals [place] Rate: 87 P: 43 TN: 158 QRS: 17 QRSD: 84 T: 13 QT: 366 QTc: 441 Interpretive Statements SINUS RHYTHM CANNOT RULE OUT SEPTAL INFARCT, AGE INDETERMINATE BASELINE ARTIFACT- I, III, AVL ABNORMAL ECG Electronically Signed On 03-20-2020 19:35:42 CDT by Kalin Castorena D.O.
[2020-03-20 15:59] LABS: Basophils Percent Auto 0.5 % (0.2-1.2); Eosinophils Absolute Auto 0.1 K/mm3 (0-0.3); Eosinophils Percent Auto 0.9 % (0-4.4); Hematocrit 45.6 % (37.0-47.0); Immature Granulocyte Absolute 0.03 K/mm3 (0.00-0.031); Immature Granulocyte Percent A 0.4 % (0-0.5); Lymphocytes Absolute Auto 1.57 K/mm3 (0.9-3.2); Lymphocytes Percent Auto 21.2 % (18.3-44.2); Mean Corpuscular HGB Conc 32.9 g/dl (32-36); Mean Corpuscular Hemoglobin 28.5 pg (26-34); Mean Corpuscular Volume 86.5 fl (80-100); Mean Platelet Volume 11.1 fl (7.4-10.4); Monocytes Absolute Auto 0.7 K/mm3 (0.1-0.6); Monocytes Percent Auto 9.6 % (2.6-8.5); Neutrophils Percent Auto 67.4 % (45.5-73.1); Platelet Count Result 282 k/mm3 (150-375); Red Blood Count 5.27 M/mm3 (4.2-5.4); Red Cell Distribution Width 13.6 % (11.5-14.5); White Blood Count 7.4 K/mm3 (4.5-10.0)
[2020-03-20 16:10] LABS: Anion Gap 9 mmol/L (8-16); Blood Urea Nitrogen 18 mg/dL (7-17); Calcium 8.9 mg/dL (8.4-10.2); Carbon Dioxide 26 mmol/L (22-30); Chloride 98 mmol/L (98-107); Estimated Glomerular Filt Rate > 60; Glucose 442 mg/dL (65-105); Potassium 4.5 mmol/L (3.4-5.0); Sodium 133 mmol/L (137-145)
[2020-03-20 16:14] LABS: Prothrombin Time 12.4 Seconds (11.1-14.7)
[2020-03-20 16:22] LABS: Troponin I < 0.012 ng/mL (0.000-0.034)
[2020-03-20 17:01] VITALS: PULSE 98; RESP 18; O2SAT 100
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
[2020-03-20] MEDS: SODIUM CHLORIDE 0.9% IV 500 ML 999 ML IV CONT (17:38)
[2020-03-20 18:07] VITALS: TEMP 36.8
[2020-03-20 18:18] LABS: NT Pro B Type Natriuretic Pept 179 PG/ML (5-100)
[2020-03-20 18:47] VITALS: BP 152/70; PULSE 82; RESP 18; O2SAT 98
[2020-03-20 18:49] LABS: Add Urine Microscopic? YES; Appearance Urine Clear (Clear); Bacteria Urine Trace /hpf; Bilirubin Urine Negative (Negative); Blood Urine 1+ (Negative); Color Urine Yellow (Yellow); Glucose Urine UA 3+ mg/dL (Negative); Ketones Urine Trace mg/dL (Negative); Leukocyte Esterase Ur Negative LEU/UL (Negative); Mucus Urine Rare /lpf; Nitrate Urine Negative (Negative); Protein Urine 2+ mg/dL (Negative); Squamous Epithelial Cell Urine Moderate /hpf (Few); Urobilinogen Urine Negative mg/dL (<2.0)
[2020-03-20 18:50] LABS: Specific Grav Ur 1.038 (1.001-1.035)
[2020-03-20 19:10] LABS: Troponin I < 0.012 ng/mL (0.000-0.034)
[2020-03-20 19:43] VITALS: BP 122/75; PULSE 76; RESP 20; O2SAT 99
== END 2020-03-20 20:04 | disposition home or self-care (01) ==
PROVIDERS: Physician Assistant; Emergency Provider Emergency Medicine; PCP Internal Medicine
DX: R20.2 Paresthesia of skin (principal); R07.9 Chest pain, unspecified; Z87.891 Personal history of nicotine dependence; I50.9 Heart failure, unspecified; Z86.711 Personal history of pulmonary embolism; Z79.01 Long term (current) use of anticoagulants; Z79.84 Long term (current) use of oral hypoglycemic drugs; S29.9XXD Unspecified injury of thorax, subsequent encounter; V69.9XXD Occupant (driver) (passenger) of heavy transport vehicle injured in unspecified traffic accident, subsequent encounter
CPT/HCPCS: 36415; 70450; 71046; 80048; 81001; 81025; 83880; 84484; 85025; 85610; 85730; 87086; 87088; 93005; 96361; 96365; 96375; 99284; J0131; J3360; J7040

== ENCOUNTER 2020-06-25 11:54 | Emergency (ER) | payer OTHER, SELFPAY ==
--- NOTE | ~2020-06-25 | US_ITS ---
EXAMINATION: US venous doppler [facility] EXAM DATE: 06/25/2020 15:03 INDICATION: lower extremity swelling, elevated dimer TECHNIQUE: Multiple grayscale, color flow and Doppler images of the lower extremity deep venous syste ms bilaterally were obtained and reviewed. Comparison is made to prior examination from 02/06/2018. FINDINGS: Right side: The right common femoral, femoral and profunda veins demonstrate normal color flow, respi ratory variation, augmentation and compressibility. Compressibility, color flow confirmed within the right popliteal, posterior tibial, peroneal, and greater saphenous veins. Left side: The left common femoral, femoral and profunda veins demonstrate normal color flow, respira tory variation, augmentation and compressibility. Compressibility, color flow confirmed within the l eft popliteal, posterior tibial, peroneal, and greater saphenous veins. IMPRESSION: 1. No lower extremity deep venous thrombosis bilaterally. Reviewed, dictated and finalized at location A. ICULTURE PROFESSOR
--- NOTE | ~2020-06-25 | CT_ITS ---
EXAMINATION: CTA chest PE protocol EXAM DATE: 06/25/2020 17:14 INDICATION: Pleuritic chest pain, elevated dimer, hx PE . TECHNIQUE: Spiral CTA of the chest (pulmonary arteries) was performed with 100 cc Omnipaque 350 intr avenous contrast injection. Images were acquired during the pulmonary arterial phase. Coronal maxi mum intensity projection 3D-reconstructions were created by the technologist on dedicated workstation . Axial, coronal and sagittal reformatted images were reviewed. The dose-length product (DLP) for t his examination was 596.37 mGy-cm. The exposure was tailored according to patient size (auto mA exp osure control), and iterative reconstruction (ASIR) was used as additional dose reduction technique. Comparison is made to prior examination from 04/13/2019. FINDINGS: There are no pulmonary emboli in the 1st through 3rd order (central and interlobar) pulmon chirag arteries. Some loss of attenuation in the segmental pulmonary arteries due to respiratory motion , but no intraluminal filling defects suspected. No thoracic aortic dissection. The lungs are samantha r. There are no pleural or pericardial effusions. Tracheobronchial tree is patent. There is no mediastinal, hilar or axillary lymphadenopathy. There is no pneumothorax. Pacemaker/AICD device. Th ere is cardiomegaly. No evidence of coronary arterial calcification. There are cholecystectomy clip s. There is thoracic spondylosis without osteoblastic or osteolytic lesions identified. IMPRESSION: 1. Limited segmental evaluation, but no pulmonary emboli are suspected. 2. Mild cardiomegaly. Reviewed, dictated and finalized at location A. IALTY DEPARTMENT SUPERVISOR
--- NOTE | ~2020-06-25 | XR_ITS ---
EXAMINATION: XR chest 2V EXAM DATE: 06/25/2020 13:16 INDICATION: Anterior chest pain, dizziness, history COPD and asthma. Hypertension. TECHNIQUE: Frontal and lateral projections of the chest obtained and reviewed. Comparison is made to prior examination from 03/20/2020. FINDINGS: The lungs are clear. There are no pleural effusions. The cardiomediastinal silhouette is within normal limits. There is no pneumothorax suspected. The bones and soft tissues are unremarkab le. There is a dual lead pacemaker/AICD seen with leads projecting over the expected locations of t he right atrial appendage and right ventricle. There are cholecystectomy clips. There is no signific ant interval change. IMPRESSION: No acute cardiopulmonary findings. Reviewed, dictated and finalized at location A. ET TRIMMER
--- NOTE | 2020-06-25 11:57 | ECG_ITS ---
Measurements Intervals [place] Rate: 96 P: 47 MN: 150 QRS: 7 QRSD: 94 T: 9 QT: 358 QTc: 454 Interpretive Statements SINUS RHYTHM CONSIDER ANTERIOR INFARCT, AGE INDETERMINATE ABNORMAL ECG Electronically Signed On 06-25-2020 14:54:39 ENGINE ROOM HELPER by Kalin Castorena D.O.
[2020-06-25 12:11] VITALS: BP 140/92; PULSE 99; RESP 15; TEMP 36.2; O2SAT 100
[2020-06-25 12:41] LABS: Basophils Absolute Auto 0.1 K/mm3 (0.0-0.1); Basophils Percent Auto 0.9 % (0.2-1.2); Eosinophils Absolute Auto 0.2 K/mm3 (0-0.3); Eosinophils Percent Auto 2.8 % (0-4.4); Hematocrit 46.2 % (37.0-47.0); Hemoglobin 15.7 g/dL (12.0-15.0); Immature Granulocyte Absolute 0.03 K/mm3 (0.00-0.031); Immature Granulocyte Percent A 0.4 % (0-0.5); Lymphocytes Absolute Auto 1.75 K/mm3 (0.9-3.2); Lymphocytes Percent Auto 24.8 % (18.3-44.2); Mean Corpuscular Hemoglobin 29.3 pg (26-34); Mean Corpuscular Volume 86.4 fl (80-100); Mean Platelet Volume 10.7 fl (7.4-10.4); Monocytes Absolute Auto 0.4 K/mm3 (0.1-0.6); Monocytes Percent Auto 5.7 % (2.6-8.5); Neutrophils Absolute Auto 4.6 K/mm3 (1.3-6.7); Neutrophils Percent Auto 65.4 % (45.5-73.1); Platelet Count Result 257 k/mm3 (150-375); Red Blood Count 5.35 M/mm3 (4.2-5.4); Red Cell Distribution Width 13.4 % (11.5-14.5); White Blood Count 7.1 K/mm3 (4.5-10.0)
[2020-06-25 12:50] LABS: Add Urine Microscopic? YES; Appearance Urine Cloudy (Clear); Bacteria Urine 1+ /hpf; Bilirubin Urine Negative (Negative); Blood Urine 1+ (Negative); Budding Yeast Urine Present /hpf; Color Urine Straw (Yellow); Glucose Urine UA 3+ mg/dL (Negative); Ketones Urine Negative (Negative); Leukocyte Esterase Ur 2+ LEU/UL (Negative); Mucus Urine Rare /lpf; Nitrate Urine Negative (Negative); Protein Urine Negative (Negative); Squamous Epithelial Cell Urine Many /hpf (Few); Urobilinogen Urine Negative mg/dL (<2.0)
[2020-06-25 12:57] LABS: Specific Grav Ur 1.032 (1.001-1.035)
[2020-06-25 13:26] LABS: INR 0.8; Prothrombin Time 11.6 Seconds (11.1-14.7)
--- NOTE | 2020-06-25 13:41 | ED.CHESTPAIN ---
HPI - Chest Pain General Chief Complaint: Chest Pain Stated Complaint: my chest is hurting Time Seen by Provider: 06/25/20 13:12 Source: patient Mode of arrival: ambulatory Limitations: no limitations History of Present Illness HPI narrative: This is a 44 year old female that presents to the ER for left sided chest pain x 1 week. Reports the pain is constant. Worse with breathing. Also reports swelling in her legs. Denies fever, cough or shortness of breath. Related Data Home Medications Medication Instructions Recorded Confirmed lisinopril 20 mg PO DAILY 06/15/19 03/07/20 albuterol sulfate [ProAir HFA] 2 puff INHALATION Q4H PRN 08/21/19 03/07/20 atorvastatin 20 mg PO DAILY 08/21/19 03/07/20 glipizide 10 mg PO DAILY 08/21/19 03/07/20 omeprazole 20 mg PO DAILY 08/21/19 03/07/20 Januvia 100 mg PO DAILY 09/24/19 03/07/20 fluticasone propionate 1 spray INTRANASAL BID 02/12/20 03/07/20 gabapentin 800 mg PO QID 02/12/20 03/07/20 glycopyrrolate 1 mg PO DAILY PRN 02/12/20 03/07/20 pioglitazone 30 mg PO DAILY 02/12/20 03/07/20 levetiracetam [Keppra] 500 mg PO BID 02/14/20 03/07/20 potassium chloride 20 meq PO DAILY 03/06/20 03/06/20 oxycodone-acetaminophen 1 tablet PO TID PRN 03/07/20 03/07/20 Allergies Allergy/AdvReac Type Severity Reaction Status Date / Time lidocaine Allergy Intermediate HIVES Verified 03/06/20 18:59 nitroglycerin Allergy Intermediate HIVES Verified 03/06/20 18:59 aspirin Allergy Mild Hives Verified 03/06/20 18:59 citalopram Allergy Mild Rash Verified 03/06/20 18:59 escitalopram Allergy Mild Hives Verified 03/06/20 18:59 ibuprofen Allergy Mild Hives Verified 03/06/20 18:59 Penicillins Allergy Mild HIVES PER Verified 03/06/20 18:59 UNCODED ALLERGIES 08/27/12 procaine Allergy Mild Hives Verified 03/06/20 18:59 propoxyphene Allergy Mild Hives Verified 03/06/20 18:59 tramadol Allergy Mild Hives Verified 03/06/20 18:59 doxycycline Allergy Unknown Hives Verified 03/06/20 18:59 meloxicam Allergy Unknown HIVES Verified 03/06/20 18:59 Sulfa (Sulfonamide Allergy Unknown HIVES PER Verified 03/06/20 18:59 Antibiotics) UNCODED ALLERGIES 08/27/12 sulfamethoxazole Allergy Unknown Hives Verified 03/06/20 18:59 trimethoprim Allergy Unknown Hives Verified 03/06/20 18:59 adhesive AdvReac Unknown SILK TAPE= Verified 03/06/20 18:59 HIVES Review of Systems Review of Systems: Narrative: CONSTITUTIONAL: Denies fever CARDIOVASCULAR: Reports chest pain, edema. RESPIRATORY: Denies cough or dyspnea. MUSCULOSKELETAL: Reports back pain, joint pain, and myalgia. NEUROLOGIC: Denies numbness, or weakness. All systems reviewed & are unremarkable except as noted in HPI and below PMFSH Past Medical History Medical History (Updated 06/25/20 @ 18:07 by Jayne Gomez PA-C) Anemia Anxiety Arthritis Asthma Bipolar disorder COPD (chronic obstructive pulmonary disease) Depression Diabetes mellitus DVT (deep venous thrombosis) Eczema Epilepsy Foot fracture, right GERD (gastroesophageal reflux disease) Herniated disc HTN (hypertension) Hyperlipidemia MRSA (methicillin resistant staph aureus) culture positive Obesity Pacemaker Peripheral neuropathy Pulmonary embolism Seizures Sleep apnea Suicide attempt Ulcer UTI (urinary tract infection) Surgical History Surgical History History of bilateral knee replacement History of cholecystectomy Family History Family History Mother Heart disease Acute myocardial infarction Uterine cancer Social History Social History Smoking packs per day: 2.5 Smoking cigarettes per day: 50.0 Years smoked: 9 Smoking pack-years: 22.50 Smoking status: Former smoker Tobacco type: cigarettes Second hand tobacco smoke exposure: Yes Smoking end date: 08/10/19 Alcohol intake: never Sub
--- NOTE | 2020-06-25 13:43 | PC.NURSE ---
Called [email or web address] and spoke with Zenaida. States she will interrogate pacemaker and have an agent call back. Gave Zenaida Gomez's name and phone number to ED.
[2020-06-25 13:48] LABS: Anion Gap 8 mmol/L (8-16); Blood Urea Nitrogen 16 mg/dL (7-17); Calcium 8.4 mg/dL (8.4-10.2); Carbon Dioxide 27 mmol/L (22-30); Chloride 98 mmol/L (98-107); Estimated Glomerular Filt Rate > 60; Glucose 603 mg/dL (65-105); Potassium 4.2 mmol/L (3.4-5.0); Sodium 133 mmol/L (137-145)
[2020-06-25 13:53] LABS: NT Pro B Type Natriuretic Pept 115 PG/ML (5-100)
[2020-06-25 13:58] LABS: Troponin I < 0.012 ng/mL (0.000-0.034)
[2020-06-25 14:08] LABS: D Dimer 15.31 ug/mL (<0.48)
[2020-06-25] MEDS: SODIUM CHLORIDE 0.9% IV 1,000 ML 999 ML IV CONT (14:23)
[2020-06-25] MEDS: INSULIN HUMAN REGULAR (*BKC) 100 UNITS/ML 12 UNITS IV PUSH (14:24)
--- NOTE | 2020-06-25 14:36 | PC.NURSE ---
[employer] member here, IN pts room
[2020-06-25 15:30] VITALS: BP 126/84; PULSE 78; RESP 16; O2SAT 98
[2020-06-25 15:50] LABS: Troponin I < 0.012 ng/mL (0.000-0.034)
[2020-06-25] MEDS: diphenhydrAMINE HCl INJ 50 MG/ML VIAL IV PUSH (15:56)
[2020-06-25 16:06] VITALS: BP 117/54; PULSE 84; RESP 17; O2SAT 98
[2020-06-25 16:07] VITALS: PULSE 83
[2020-06-25 16:39] VITALS: BP 112/72; PULSE 83; RESP 16; O2SAT 97
[2020-06-25 17:51] LABS: Glucose Point of Care 342 (65-105)
[2020-06-25 18:01] VITALS: BP 129/83; PULSE 78; RESP 16; O2SAT 97
[2020-06-25] MEDS: FLUCONAZOLE 150 MG TABLET PO (18:13)
== END 2020-06-25 18:10 | disposition home or self-care (01) ==
PROVIDERS: Emergency Medicine; Family Medicine; Physician Assistant; Emergency Provider Emergency Medicine; PCP Internal Medicine
DX: E11.65 Type 2 diabetes mellitus with hyperglycemia (principal); N30.00 Acute cystitis without hematuria; R07.89 Other chest pain; B37.3 Candidiasis of vulva and vagina; J44.9 Chronic obstructive pulmonary disease, unspecified; G40.909 Epilepsy, unspecified, not intractable, without status epilepticus; E78.5 Hyperlipidemia, unspecified; I10 Essential (primary) hypertension; K21.9 Gastro-esophageal reflux disease without esophagitis; E11.42 Type 2 diabetes mellitus with diabetic polyneuropathy; G47.30 Sleep apnea, unspecified; Z79.01 Long term (current) use of anticoagulants; Z79.84 Long term (current) use of oral hypoglycemic drugs; M19.90 Unspecified osteoarthritis, unspecified site; Z86.14 Personal history of Methicillin resistant Staphylococcus aureus infection; Z86.718 Personal history of other venous thrombosis and embolism; Z86.711 Personal history of pulmonary embolism; Z95.0 Presence of cardiac pacemaker; Z86.2 Personal history of diseases of the blood and blood-forming organs and certain disorders involving the immune mechanism; Z96.653 Presence of artificial knee joint, bilateral; Z87.891 Personal history of nicotine dependence; I51.7 Cardiomegaly; R94.31 Abnormal electrocardiogram [ECG] [EKG]
CPT/HCPCS: 36415; 71046; 71275; 80048; 81001; 81025; 82948; 83880; 84484; 85025; 85380; 85610; 85730; 93005; 93970; 96365; 96375; 99284; A9270; J0131; J1200; J1815; J7030; Q9967

== ENCOUNTER 2020-09-01 10:09 | Emergency (ER) | payer OTHER, SELFPAY ==
--- NOTE | ~2020-09-01 | XR_ITS ---
EXAMINATION: XR chest 1V portable INDICATION: Cough TECHNIQUE: Portable AP chest at 1058 hours COMPARISON: 06/25/2020 FINDINGS: There are opacities of the mid and lower lung zones. The heart size is upper limits of norm al for technique. No pleural effusion or pneumothorax is identified. A dual-lead cardiac pacemaker of the left chest wall ends with leads in expected locations. Surgical clips in the right upper quadran t are likely from prior cholecystectomy. IMPRESSION: 1. Opacities of the mid and lower lung zones which could reflect pneumonia and/or pulmonary edema. Reviewed, dictated and finalized at location A. N ORGANISER IMPRESSION: 1. Opacities of the mid and lower lung zones which could reflect pneumonia and/ or pulmonary edema.
[2020-09-01 10:11] VITALS: BP 118/87; PULSE 92; RESP 20; TEMP 36.8; O2SAT 100
[2020-09-01 10:31] VITALS: O2SAT 99
--- NOTE | 2020-09-01 10:35 | ECG_ITS ---
Measurements Intervals Surveyor Rate: 91 P: 50 IL: 153 QRS: 19 QRSD: 84 T: 42 QT: 364 QTc: 450 Interpretive Statements SINUS RHYTHM BORDERLINE R WAVE PROGRESSION, ANTERIOR LEADS BASELINE ARTIFACT- I, II, III, AVR, AVL, V1-V3 BORDERLINE ECG Electronically Signed On 09-01-2020 15:52:49 CHARGE ENTRY CLERK by Kalin Castorena D.O.
[2020-09-01 11:09] LABS: Basophils Absolute Auto 0.1 K/mm3 (0.0-0.1); Eosinophils Absolute Auto 0.2 K/mm3 (0-0.3); Eosinophils Percent Auto 3.1 % (0-4.4); Hematocrit 38.7 % (37.0-47.0); Hemoglobin 12.5 g/dL (12.0-15.0); Immature Granulocyte Absolute 0.01 K/mm3 (0.00-0.031); Immature Granulocyte Percent A 0.2 % (0-0.5); Lymphocytes Absolute Auto 1.69 K/mm3 (0.9-3.2); Lymphocytes Percent Auto 27.3 % (18.3-44.2); Mean Corpuscular HGB Conc 32.3 g/dl (32-36); Mean Corpuscular Volume 86.8 fl (80-100); Mean Platelet Volume 9.9 fl (7.4-10.4); Monocytes Absolute Auto 0.4 K/mm3 (0.1-0.6); Monocytes Percent Auto 6.6 % (2.6-8.5); Neutrophils Absolute Auto 3.8 K/mm3 (1.3-6.7); Neutrophils Percent Auto 61.8 % (45.5-73.1); Platelet Count Result 315 k/mm3 (150-375); Red Blood Count 4.46 M/mm3 (4.2-5.4); Red Cell Distribution Width 13.6 % (11.5-14.5); White Blood Count 6.2 K/mm3 (4.5-10.0)
[2020-09-01 11:22] LABS: INR 0.9; Prothrombin Time 12.4 Seconds (11.1-14.7)
[2020-09-01 11:23] LABS: Add Urine Microscopic? YES; Appearance Urine Clear (Clear); Bilirubin Urine Negative (Negative); Blood Urine 1+ (Negative); Color Urine Colorless (Yellow); Glucose Urine UA 3+ mg/dL (Negative); Ketones Urine Negative (Negative); Leukocyte Esterase Ur Negative LEU/UL (Negative); Mucus Urine Rare /lpf; Nitrate Urine Negative (Negative); Partial Thromboplastin Time 23.5 SECONDS (22.3-36.8); Protein Urine 2+ mg/dL (Negative); RBC Urine 0-2 /hpf (0-2); Specific Grav Ur 1.029 (1.001-1.035); Squamous Epithelial Cell Urine Few /hpf (Few); Urobilinogen Urine Negative mg/dL (<2.0); WBC Urine 0-3 /hpf
[2020-09-01 11:25] LABS: Alanine Aminotransferase 13 U/L (4-35); Albumin Level 3.7 g/dL (3.5-5.1); Alkaline Phosphatase 62 U/L (38-126); Anion Gap 7 mmol/L (8-16); Aspartate Amino Transferase 21 U/L (14-36); Bilirubin,Total 0.4 mg/dL (0.2-1.3); Blood Urea Nitrogen 22 mg/dL (7-17); CRP 1.2 mg/dL (<1.0); Calcium 8.7 mg/dL (8.4-10.2); Carbon Dioxide 25 mmol/L (22-30); Chloride 103 mmol/L (98-107); Estimated Glomerular Filt Rate > 60; Glucose 417 mg/dL (65-105); Potassium 4.5 mmol/L (3.4-5.0); Sodium 135 mmol/L (137-145)
--- NOTE | 2020-09-01 11:31 | ED.GENADULT ---
HPI - General Adult General Chief complaint: Upper Respiratory Infection Stated complaint: MULTIPLE C/O Time Seen by Provider: 09/01/20 10:14 Source: patient Mode of arrival: ambulatory Limitations: no limitations History of Present Illness HPI narrative: Patient is a 44-year-old female who presents to emergency department for evaluation of upper respiratory symptoms for the last 2 days patient notes cough congestion rhinorrhea body aches with some mild shortness of breath patient also admits to having smoked crack cocaine with a friend prior evening patient on arrival to emergency department is not distressed does not appear uncomfortable patient denies any current pain but notes that she does get some discomfort with coughing in the chest described as clear phlegm Related Data Home Medications Medication Instructions Recorded Confirmed lisinopril 20 mg PO DAILY 06/15/19 03/07/20 albuterol sulfate [ProAir HFA] 2 puff INHALATION Q4H PRN 08/21/19 03/07/20 atorvastatin 20 mg PO DAILY 08/21/19 03/07/20 glipizide 10 mg PO DAILY 08/21/19 03/07/20 omeprazole 20 mg PO DAILY 08/21/19 03/07/20 Januvia 100 mg PO DAILY 09/24/19 03/07/20 fluticasone propionate 1 spray INTRANASAL BID 02/12/20 03/07/20 gabapentin 800 mg PO QID 02/12/20 03/07/20 glycopyrrolate 1 mg PO DAILY PRN 02/12/20 03/07/20 pioglitazone 30 mg PO DAILY 02/12/20 03/07/20 levetiracetam [Keppra] 500 mg PO BID 02/14/20 03/07/20 insulin glargine [Basaglar KwikPen 30 unit SUBCUT QPM 09/01/20 U-100 Insulin] metoprolol succinate PO 09/01/20 oxycodone-acetaminophen [Percocet] 1 tablet PO Q6H PRN 09/01/20 Allergies Allergy/AdvReac Type Severity Reaction Status Date / Time lidocaine Allergy Intermediate HIVES Verified 03/06/20 18:59 nitroglycerin Allergy Intermediate HIVES Verified 03/06/20 18:59 aspirin Allergy Mild Hives Verified 03/06/20 18:59 citalopram Allergy Mild Rash Verified 03/06/20 18:59 escitalopram Allergy Mild Hives Verified 03/06/20 18:59 ibuprofen Allergy Mild Hives Verified 03/06/20 18:59 Penicillins Allergy Mild HIVES PER Verified 03/06/20 18:59 UNCODED ALLERGIES 08/27/12 procaine Allergy Mild Hives Verified 03/06/20 18:59 propoxyphene Allergy Mild Hives Verified 03/06/20 18:59 doxycycline Allergy Unknown Hives Verified 03/06/20 18:59 meloxicam Allergy Unknown HIVES Verified 03/06/20 18:59 Sulfa (Sulfonamide Allergy Unknown HIVES PER Verified 03/06/20 18:59 Antibiotics) UNCODED ALLERGIES 08/27/12 sulfamethoxazole Allergy Unknown Hives Verified 03/06/20 18:59 trimethoprim Allergy Unknown Hives Verified 03/06/20 18:59 codeine Allergy Hives Verified 09/01/20 13:06 adhesive AdvReac Unknown SILK TAPE= Verified 03/06/20 18:59 HIVES Review of Systems Review of Systems: All systems reviewed & are unremarkable except as noted in HPI and below PMFSH Past Medical History Medical History (Updated 09/01/20 @ 13:28 by Gregorio Austin PA-C) Anemia Anxiety Arthritis Asthma Bipolar disorder COPD (chronic obstructive pulmonary disease) Depression Diabetes mellitus DVT (deep venous thrombosis) Eczema Epilepsy Foot fracture, right GERD (gastroesophageal reflux disease) Herniated disc HTN (hypertension) Hyperlipidemia MRSA (methicillin resistant staph aureus) culture positive Obesity Pacemaker Peripheral neuropathy Pulmonary embolism Seizures Sleep apnea Suicide attempt Ulcer UTI (urinary tract infection) Surgical History Surgical History History of bilateral knee replacement History of cholecystectomy Family History Family History Mother Heart disease Acute myocardial infarction Uterine cancer Social History Social History Smoking packs per day: 2.5 Smoking cigarettes per day: 50.0 Years smoked: 9 Smoking pack-years: 22.50 Smoking sta
[2020-09-01 11:34] LABS: Troponin I < 0.012 ng/mL (0.000-0.034)
[2020-09-01 11:52] LABS: Lactic Acid Reflex 1.4 mmol/L (0.7-2.1)
[2020-09-01 13:00] VITALS: BP 125/72; PULSE 92; RESP 18; TEMP 36.7; O2SAT 98
--- NOTE | 2020-09-01 13:16 | PC.NURSE ---
EDPA in room to discuss plan to discharge patient. Pain medication was requested and order received. Patient in agreement with EDPA on plan to discharge home.
[2020-09-01 13:41] VITALS: BP 135/53; PULSE 88; RESP 18; O2SAT 99
--- NOTE | 2020-09-01 13:43 | PC.NURSE ---
Pt asking while appearing in no distress watching TV is the dr going to give me anything stronger for pain this RN states that there are no other orders
[2020-09-02 00:20] LABS: SARS-CoV-2 RNA PCR Negative
== END 2020-09-01 13:49 | disposition home or self-care (01) ==
PROVIDERS: Emergency Medicine Emergency Medical Services; Emergency Provider Family Medicine; Family Provider Family Medicine; PCP Internal Medicine
DX: J18.9 Pneumonia, unspecified organism (principal); J06.9 Acute upper respiratory infection, unspecified; E11.65 Type 2 diabetes mellitus with hyperglycemia; Z20.822 Contact with and (suspected) exposure to COVID-19; J44.9 Chronic obstructive pulmonary disease, unspecified; G40.909 Epilepsy, unspecified, not intractable, without status epilepticus; K21.9 Gastro-esophageal reflux disease without esophagitis; E78.5 Hyperlipidemia, unspecified; G47.30 Sleep apnea, unspecified; E11.42 Type 2 diabetes mellitus with diabetic polyneuropathy; M19.90 Unspecified osteoarthritis, unspecified site; E66.9 Obesity, unspecified; Z68.34 Body mass index [BMI] 34.0-34.9, adult; Z86.14 Personal history of Methicillin resistant Staphylococcus aureus infection; Z86.2 Personal history of diseases of the blood and blood-forming organs and certain disorders involving the immune mechanism; Z87.440 Personal history of urinary (tract) infections; Z86.711 Personal history of pulmonary embolism; Z86.718 Personal history of other venous thrombosis and embolism; Z95.0 Presence of cardiac pacemaker; Z96.653 Presence of artificial knee joint, bilateral; Z87.891 Personal history of nicotine dependence; Z79.4 Long term (current) use of insulin; R94.31 Abnormal electrocardiogram [ECG] [EKG]
CPT/HCPCS: 36415; 71045; 80053; 81001; 81025; 83605; 84484; 85025; 85610; 85730; 86140; 93005; 96365; 99284; C9803; J0131; U0003; U0005

== ENCOUNTER 2020-09-24 12:04 | Observation (INO) | payer OTHER, SELFPAY ==
[2020-09-24] VITALS (12 sets, daily range): BP systolic 111–154; BP diastolic 69–101; PULSE 68–100; RESP 14–25; TEMP 36.1–36.6; O2SAT 97–100; BMI 34.2
--- NOTE | ~2020-09-24 | XR_ITS ---
EXAMINATION: XR chest 2V DATE: 09/24/2020 13:22 INDICATION: Chest pain and shortness of breath TECHNIQUE: AP and lateral views of the chest are obtained. COMPARISON: 09/01/2020 FINDINGS: There are minimal opacities of the mid and lower lung zones. There is no pleural effusion o r pneumothorax. The heart size is normal. A dual-lead cardiac pacemaker of the left chest wall ends w ith leads in expected locations. There is mild thoracic spondylosis. IMPRESSION: 1. Minimal opacities of the mid and lower lung zones, consistent with pulmonary edema and/or pneumoni a. Reviewed, dictated and finalized at location A. WORK CIGAR MACHINE OPERATOR IMPRESSION: 1. Minimal opacities of the mid and lower lung zones, consistent with pulmonary edema and/or pneumonia.
--- NOTE | ~2020-09-24 | NM_ITS ---
EXAMINATION: NM hannah stress w perfusion DATE: 09/25/2020 15:17 INDICATION: Epigastric pain in a diabetic. TECHNIQUE: Rest images were obtained following intravenous administration of 8.86 mCi Tc99m tetrofosm in (Myoview). The patient was infused intravenously with Lexiscan (Regadenoson). Then, 29.9 mCi Tc99m tetrofosmin (Myoview) was administered intravenously, and stress images were obtained. Data was kassandra nstructed into short axis and horizontal and vertical long axis SPECT images. Gated SPECT images were also obtained. COMPARISON: None. FINDINGS: There is no definite reversible or fixed perfusion abnormality to suggest ischemia or infar ction. There is normal left ventricular chamber size, wall motion and ejection fraction. Left ventr icular ejection fraction measures 48%. IMPRESSION: 1. Normal myocardial perfusion at rest and during stress. 2. Left ventricular ejection fraction measuring 48%. Reviewed, dictated and finalized at location A. ETIC TRAINING INTERNSHIP
--- NOTE | ~2020-09-24 | CT_ITS ---
EXAMINATION: CTA chest abdomen pelvis EXAM DATE: 09/24/2020 15:09 INDICATION: Chest pain, shortness of breath. Abdominal pain. TECHNIQUE: Spiral CT of the chest, abdomen and pelvis was performed following intravenous injection o f 100 mL Omnipaque 350. Axial, coronal and sagittal images were reviewed. Maximum intensity projecti on 3-D reconstructions of the aorta were created by the technologist on dedicated workstation. Coron al maximum intensity pixel images of chest reviewed. The dose-length product (DLP) for this examinat ion was 1483.84 mGy-cm. The exposure was tailored according to patient size (auto mA exposure contro l), and iterative reconstruction (ASIR) was used as additional dose reduction technique. Correlation is made to pulmonary CT 06/25/2020. FINDINGS: Study is limited due to patient motion. AORTA: Normal in caliber and there is no dissection. Mesenteric arteries widely patent. CHEST: Main pulmonary arteries are without filling defects. The lungs are clear. There are no pleur al or pericardial effusions. Tracheobronchial tree is patent. There is no mediastinal, hilar or a xillary lymphadenopathy. There is no pneumothorax. Heart is within normal size less. There is a p acemaker/AICD device. No evidence of coronary arterial calcification. ABDOMEN PELVIS: The liver, spleen, adrenal glands and pancreas are unremarkable. There are cholecyst ectomy clips. Portal and splenic veins are patent. Kidneys enhance symmetrically. There is no hydr onephrosis. The uterus is unremarkable. The bladder is unremarkable. There is no retroperitoneal or pelvic lymphadenopathy. Small umbilical fat-containing hernia. There are no findings to suggest appendicitis. Stomach is significantly distended to the duodenal bu lb. Could be that patient is recently postprandial. Difficult to exclude duodenal edema/peptic ulcer disease causing this appearance. There is expected amount of colonic stool. No free intraperitonea l gas. There are no osteoblastic or osteolytic lesions identified. IMPRESSION: 1. Distended stomach, could be from postprandial status with duodenum collapsed and can't exclude wa ll edema from peptic ulcer disease. 2. Small umbilical fat-containing hernia. 3. Unremarkable aorta. Reviewed, dictated and finalized at location G. PATROL OFFICER IMPRESSION: 1. Distended stomach, could be from postprandial status with duodenum collapse d and can't exclude wall edema from peptic ulcer disease. 2. Small umbilical fat-containing hernia. 3. Unremarkable aorta.
--- NOTE | 2020-09-24 12:23 | ECG_ITS ---
Measurements Intervals [place] Rate: 94 P: 55 DC: 141 QRS: 11 QRSD: 94 T: 43 QT: 365 QTc: 458 Interpretive Statements SINUS RHYTHM BORDERLINE R WAVE PROGRESSION, ANTERIOR LEADS BASELINE WANDER- I, II, III, AVF, V4-V6 BORDERLINE ECG Electronically Signed On 09-24-2020 13:51:30 TEACHER ADVENTURE EDUCATION by Kalin Castorena D.O.
--- NOTE | 2020-09-24 12:33 | PC.NURSE ---
Difficulty with EKG due to pt shaking. EDP at bedside. New machine used in order to capture reading.
--- NOTE | 2020-09-24 13:49 | PC.NURSE ---
Mult attempts for IV unsuccessful, called Ron[facility] w/ IV access.
[2020-09-24 13:50] LABS: Add Urine Microscopic? YES; Appearance Urine Clear (Clear); Bilirubin Urine Negative (Negative); Blood Urine Negative (Negative); Color Urine Colorless (Yellow); Glucose Urine UA 3+ mg/dL (Negative); Ketones Urine Negative (Negative); Leukocyte Esterase Ur Negative LEU/UL (Negative); Mucus Urine Rare /lpf; Nitrate Urine Negative (Negative); Protein Urine 1+ mg/dL (Negative); RBC Urine 0-2 /hpf (0-2); Squamous Epithelial Cell Urine Rare /hpf (Few); Urobilinogen Urine Negative mg/dL (<2.0); WBC Urine 0-3 /hpf
[2020-09-24 13:54] LABS: Specific Grav Ur 1.033 (1.001-1.035)
[2020-09-24 14:20] LABS: Basophils Percent Auto 0.5 % (0.2-1.2); Eosinophils Absolute Auto 0.1 K/mm3 (0-0.3); Eosinophils Percent Auto 2.2 % (0-4.4); Hematocrit 41.3 % (37.0-47.0); Hemoglobin 14.2 g/dL (12.0-15.0); Immature Granulocyte Absolute 0.03 K/mm3 (0.00-0.031); Immature Granulocyte Percent A 0.5 % (0-0.5); Lymphocytes Absolute Auto 1.32 K/mm3 (0.9-3.2); Lymphocytes Percent Auto 20.7 % (18.3-44.2); Mean Corpuscular HGB Conc 34.4 g/dl (32-36); Mean Corpuscular Hemoglobin 28.9 pg (26-34); Mean Corpuscular Volume 83.9 fl (80-100); Mean Platelet Volume 10.4 fl (7.4-10.4); Monocytes Absolute Auto 0.3 K/mm3 (0.1-0.6); Monocytes Percent Auto 5.2 % (2.6-8.5); Neutrophils Absolute Auto 4.5 K/mm3 (1.3-6.7); Neutrophils Percent Auto 70.9 % (45.5-73.1); Platelet Count Result 252 k/mm3 (150-375); Red Blood Count 4.92 M/mm3 (4.2-5.4); Red Cell Distribution Width 12.9 % (11.5-14.5); White Blood Count 6.4 K/mm3 (4.5-10.0)
[2020-09-24 14:28] LABS: INR 0.8; Prothrombin Time 11.9 Seconds (11.1-14.7)
[2020-09-24 14:29] LABS: Partial Thromboplastin Time 22.4 SECONDS (22.3-36.8)
--- NOTE | 2020-09-24 14:29 | PC.NURSE ---
EDP to room 12 w/ crash cart for runs of VTACH, crash cart taken to room. Pt alert and talking at this time.
[2020-09-24] MEDS: MORPHINE SULFATE (*CRX) 4 MG/ML INJ IV PUSH (14:30)
[2020-09-24 14:32] LABS: Alanine Aminotransferase 14 U/L (4-35); Albumin Level 3.3 g/dL (3.5-5.1); Alkaline Phosphatase 67 U/L (38-126); Aspartate Amino Transferase 17 U/L (14-36); Bilirubin,Total 0.3 mg/dL (0.2-1.3); Lipase 97 U/L (23-300)
[2020-09-24 14:35] LABS: Anion Gap 8 mmol/L (8-16); Blood Urea Nitrogen 16 mg/dL (7-17); Calcium 8.2 mg/dL (8.4-10.2); Carbon Dioxide 24 mmol/L (22-30); Chloride 103 mmol/L (98-107); Estimated Glomerular Filt Rate > 60; Potassium 4.3 mmol/L (3.4-5.0); Sodium 135 mmol/L (137-145)
[2020-09-24 14:43] LABS: Troponin I < 0.012 ng/mL (0.000-0.034)
--- NOTE | 2020-09-24 14:44 | PC.NURSE ---
Pt to CT scan via stretcher, pt on surveillance monitor.
[2020-09-24 14:48] LABS: Glucose 620 mg/dL (65-105)
[2020-09-24] MEDS: INSULIN HUMAN REGULAR (*BKC) 100 UNITS/ML 10 UNITS IV PUSH (15:26)
[2020-09-24] MEDS: SODIUM CHLORIDE 0.9% IV 1,000 ML 999 ML IV CONT (15:27)
--- NOTE | 2020-09-24 16:05 | ED.GENADULT ---
HPI - General Adult General Chief complaint: Chest Pain Stated complaint: abd pain, chest pain and numbness Time Seen by Provider: 09/24/20 12:18 History of Present Illness HPI narrative: Patient is a 44-year-old female who presents ER with multiple medical issues. Patient reports she developed epigastric pain today that is sharp nonradiating. Is worse with palpation. She then began to walk to get her diabetic medication from her pharmacy when she began to develop central chest pain that was sharp and radiating down her right side. She became short of breath with this as well. Patient has a pacemaker for a slow heart rate. Her primary buckle wire inserter is located at [facility]. Patient also reports that she has not been on her Coumadin for over a month because her doctor was [facility] but her insurance would not cover it. Related Data Home Medications Medication Instructions Recorded Confirmed lisinopril 20 mg PO DAILY 06/15/19 03/07/20 albuterol sulfate [ProAir HFA] 2 puff INHALATION Q4H PRN 08/21/19 03/07/20 atorvastatin 20 mg PO DAILY 08/21/19 03/07/20 glipizide 10 mg PO DAILY 08/21/19 03/07/20 omeprazole 20 mg PO DAILY 08/21/19 03/07/20 Januvia 100 mg PO DAILY 09/24/19 03/07/20 fluticasone propionate 1 spray INTRANASAL BID 02/12/20 03/07/20 gabapentin 800 mg PO QID 02/12/20 03/07/20 glycopyrrolate 1 mg PO DAILY PRN 02/12/20 03/07/20 pioglitazone 30 mg PO DAILY 02/12/20 03/07/20 levetiracetam [Keppra] 500 mg PO BID 02/14/20 03/07/20 insulin glargine [Basaglar KwikPen 30 unit SUBCUT QPM 09/01/20 U-100 Insulin] metoprolol succinate PO 09/01/20 oxycodone-acetaminophen [Percocet] 1 tablet PO Q6H PRN 09/01/20 Allergies Allergy/AdvReac Type Severity Reaction Status Date / Time lidocaine Allergy Intermediate HIVES Verified 09/24/20 12:29 nitroglycerin Allergy Intermediate HIVES Verified 09/24/20 12:29 aspirin Allergy Mild Hives Verified 09/24/20 12:29 citalopram Allergy Mild Rash Verified 09/24/20 12:29 escitalopram Allergy Mild Hives Verified 09/24/20 12:29 ibuprofen Allergy Mild Hives Verified 09/24/20 12:29 Penicillins Allergy Mild HIVES PER Verified 09/24/20 12:29 UNCODED ALLERGIES 08/27/12 procaine Allergy Mild Hives Verified 09/24/20 12:29 propoxyphene Allergy Mild Hives Verified 09/24/20 12:29 doxycycline Allergy Unknown Hives Verified 09/24/20 12:29 meloxicam Allergy Unknown HIVES Verified 09/24/20 12:29 Sulfa (Sulfonamide Allergy Unknown HIVES PER Verified 09/24/20 12:29 Antibiotics) UNCODED ALLERGIES 08/27/12 sulfamethoxazole Allergy Unknown Hives Verified 09/24/20 12:29 trimethoprim Allergy Unknown Hives Verified 09/24/20 12:29 codeine Allergy Hives Verified 09/24/20 12:29 adhesive AdvReac Unknown SILK TAPE= Verified 09/24/20 12:29 HIVES Review of Systems Review of Systems: All systems reviewed & are unremarkable except as noted in HPI and below Constitutional: Constitutional: Denies chills, Denies fever(s) and Denies weakness ENT: Denies nasal congestion and Denies sore throat Cardiovascular: Cardiovascular: Reports chest pain, Denies rapid heart rate and Reports radiating jaw, neck or arm pain Respiratory: Respiratory: Denies cough, Reports dyspnea and Denies wheezing Gastrointestinal: Gastrointestinal: Reports abdominal pain, Denies diarrhea, Denies nausea and Denies vomiting Genitourinary: Genitourinary: Denies nocturia and Denies dysuria Neurologic: Denies syncope, Denies focal weakness and Denies numbness [facility] Past Medical History Medical History (Updated 09/24/20 @ 16:51 by John An MD) Anemia Anxiety Arthritis Asthma Bipolar disorder COPD (chronic obstructive pulmonary disease) Depression Diabetes mellitus DVT (deep venous thrombosis) Eczema Epilepsy Foot fracture, right GERD (gastroesophageal reflux disease) Herniated disc HTN (hypertension) Hyperlipidemia MRSA (methicillin resistant staph aureus)
[2020-09-24 16:34] LABS: Glucose Point of Care 368 (65-105)
[2020-09-24 16:51] LABS: Magnesium 2.1 mg/dL (1.6-2.3)
[2020-09-24 17:01] LABS: Troponin I < 0.012 ng/mL (0.000-0.034)
--- NOTE | 2020-09-24 19:02 | PC.NURSE ---
Patient arrived 1837. This patient, Valerie Nguyen, was admitted to IMU Room 200-01. Patient/family oriented to hospital policies and general routines including ID bracelet, bed and alarms, visiting hours, pain management, procedures, bathroom and other care routines, personal items, smoking policy, room service/diet, and visiting hours. Information on how to activate the Rapid Response Team has been discussed. Patient/Family are encouraged to report perceived risks to care and to ask questions if they do not understand what they are told or what they should do.
[2020-09-24 19:51] LABS: Troponin I < 0.012 ng/mL (0.000-0.034)
--- NOTE | 2020-09-24 20:55 | PM.IMHP ---
H&P: HPI History of Present Illness Date/Time: 09/24/20 20:55 Chief Complaint: Chest pain Narrative: Valerie Nguyen is a 44 year old female who came to the emergency room due to epigastric discomfort. Worse with palpation. The patient was walking to get her diabetic medication and she developed central chest pain that was radiating down her right side. She became short of breath. Patient stated that she was going to get a stress test in the past but was not able to tolerate being on a treadmill and stated that she is going to have a chemical induced stress test. She tells me she had a heart attack in the past but did not have any cardiac stents. She states that she has a pacemaker because she has had a myocardial infarction per patient. Her mainspring strip inspector is at [facility]. The patient tells me that she sees Dr. Hathaway at [facility] and that she was told to stop taking her Coumadin and start taking Eliquis however her Eliquis has not been covered by her insurance. She has not been able to get her Eliquis. She tells me that she has had PEs and DVTs in the past and she is not able to take her blood thinners because it is not covered by her insurance. She stated that Dr. Hathaway attempted to get her qualified for it but was not able to do so as of yet. She tells me that her pain is sharp today and and is nonradiating. Troponins are negative so far. Borderline R-wave progression. There was a moment in the emergency room were her heart rate appeared to be fast but it looks like it was most likely interference a not true tachycardia. The patient stated that her chest pain started in the epigastric area and radiated down the middle of her abdomen went to her lower pelvic area. She states that she has been having frequent periods as well. CTA of the chest abdomen and pelvis was read by radiology as distended stomach, could be from postprandial status with duodenum collapse and can't exclude wall edema from peptic ulcer disease. Small umbilical fat containing hernia. Unremarkable aorta. Place disease of the mid and lower lung zones consistent with pulmonary edema and or pneumonia. The patient does tell me that she has congestive heart failure. She states that her feet do swell. Was given IV insulin, and Protonix. Blood sugar was 620 and then 368 and then greater than 500. The patient had been started on IV fluids due to the high blood sugar. Magnesium was normal at 2.1. Admitted to observation on the date of service of 09/24/2020. Review of Systems Review of Systems: All systems reviewed & are unremarkable except as noted in HPI and below Constitutional: Constitutional: Reports as per HPI and Reports no additional constitutional complaints Eyes: Eyes: Reports as per HPI and Reports no additional eye complaints ENT: Reports system reviewed and no additional complaints, except as documented and Reports Normal hearing present Cardiovascular: Cardiovascular: Reports no additional cardiovascular complaints Respiratory: Respiratory: Reports no additional respiratory complaints and Reports no additional respiratory complaints Gastrointestinal: Gastrointestinal: Reports as per HPI and Reports no additional gastrointestinal complaints Musculoskeletal: Musculoskeletal: Reports no additional musculoskeletal complaints Integumentary/Breasts: Skin/Breast: Reports system reviewed and no additional complaints, except as docu and Reports as per HPI Neurologic: Reports system reviewed and no additional complaints, except as documented, Reports as per HPI and Reports Normal hearing present Psychiatric: Psychiatric: Reports no additional psychiatric complaints and Reports as per HPI Endocrine: Endocrine: Reports no additional endocrine complaints Hematologic/Lymphatic: Hematologic/Lymphatic: Reports no additional hematologic/lymphatic complaints Allergic/Immunologic: Allergic/Immunologic: Reports no additional allergic/immunologic complai
[2020-09-24 21:00] LABS: Glucose Point of Care > 500 (65-105)
[2020-09-24] MEDS: SUCRALFATE 1 GM TABLET PO (21:50)
[2020-09-24] MEDS: FAMOTIDINE 20 MG/2 ML VIAL IV PUSH (21:50)
[2020-09-24] MEDS: INSULIN ASPART (*BKC) 100 UNITS/ML 10 UNITS SUB-Q (21:50)
[2020-09-24] MEDS: ENOXAPARIN 80 MG/0.8 ML SYRINGE 78 MG SUB-Q (21:51)
[2020-09-24] MEDS: HYDROcodone/acetaminophen (*CRX) 5-325 MG TABLET 1 TAB PO (22:18)
[2020-09-25] VITALS (24 sets, daily range): BP systolic 59–145; BP diastolic 27–80; PULSE 70–90; RESP 10–20; TEMP 36.1–36.6; O2SAT 97–100
[2020-09-25] MEDS: HYDROcodone/acetaminophen (*CRX) 5-325 MG TABLET 1 TAB PO ×2 (02:24→09:47)
[2020-09-25 02:32] LABS: Glucose Point of Care 190 (65-105)
[2020-09-25 05:00] LABS: Basophils Absolute Auto 0.1 K/mm3 (0.0-0.1); Basophils Percent Auto 0.8 % (0.2-1.2); Eosinophils Absolute Auto 0.2 K/mm3 (0-0.3); Eosinophils Percent Auto 3.7 % (0-4.4); Hematocrit 35.7 % (37.0-47.0); Immature Granulocyte Absolute 0.01 K/mm3 (0.00-0.031); Immature Granulocyte Percent A 0.2 % (0-0.5); Lymphocytes Absolute Auto 2.32 K/mm3 (0.9-3.2); Lymphocytes Percent Auto 35.9 % (18.3-44.2); Mean Corpuscular HGB Conc 33.6 g/dl (32-36); Mean Corpuscular Volume 83.2 fl (80-100); Mean Platelet Volume 10.3 fl (7.4-10.4); Monocytes Absolute Auto 0.5 K/mm3 (0.1-0.6); Monocytes Percent Auto 7.7 % (2.6-8.5); Neutrophils Absolute Auto 3.4 K/mm3 (1.3-6.7); Neutrophils Percent Auto 51.7 % (45.5-73.1); Platelet Count Result 246 k/mm3 (150-375); Red Blood Count 4.29 M/mm3 (4.2-5.4); Red Cell Distribution Width 12.9 % (11.5-14.5); White Blood Count 6.5 K/mm3 (4.5-10.0)
[2020-09-25 05:12] LABS: Lactic Acid Reflex 1.2 mmol/L (0.7-2.1)
[2020-09-25 05:13] LABS: Magnesium 1.8 mg/dL (1.6-2.3)
[2020-09-25 05:19] LABS: Hemoglobin A1C 11.6 % (<5.7)
[2020-09-25] MEDS: SUCRALFATE 1 GM TABLET PO ×2 (06:12→12:36)
[2020-09-25 09:02] LABS: Glucose Point of Care 346 (65-105)
[2020-09-25] MEDS: levETIRAcetam 500 MG TABLET PO (09:48)
[2020-09-25] MEDS: GABAPENTIN 400 MG CAPSULE 800 MG PO ×2 (09:48→12:36)
[2020-09-25] MEDS: METOPROLOL SUCCINATE EXT REL 50 MG TABCR PO (09:48)
[2020-09-25] MEDS: FAMOTIDINE 20 MG/2 ML VIAL IV PUSH ×2 (09:48→21:59)
[2020-09-25] MEDS: ENOXAPARIN 80 MG/0.8 ML SYRINGE 78 MG SUB-Q ×2 (09:49→21:56)
[2020-09-25] MEDS: POTASSIUM CHLORIDE 20 MEQ TABLET.ER PO (09:49)
[2020-09-25] MEDS: glipiZIDE 5 MG TABLET 10 MG PO (09:49)
[2020-09-25] MEDS: lisinopriL 20 MG TABLET PO (09:50)
[2020-09-25] MEDS: LORATADINE 10 MG TABLET PO (09:50)
[2020-09-25] MEDS: ATORVASTATIN 20 MG TABLET PO (09:50)
[2020-09-25] MEDS: GLYCOPYRROLATE 1 MG TABLET PO (09:50)
[2020-09-25] MEDS: FUROSEMIDE 20 MG TABLET PO (09:50)
[2020-09-25] MEDS: PIOGLITAZONE HCL 30 MG TABLET PO (09:50)
[2020-09-25] MEDS: FLUTICASONE PROPIONATE 0.05% NA SPR 16 GM BTL (*BKC) 2 SPRAY NASAL (09:51)
--- NOTE | 2020-09-25 09:54 | EST_ITS ---
Patient Info Name: Valerie Nguyen Age: 44 years : 1975 Gender: Female Ht: 59 in Wt: 169 lbs BSA: 1.82 m2 HR: 72 bpm BP: 85 / 51 mmHg Exam Date: 09/25/2020 1:51 PM Exam Location: [facility] Stress Patient Status: Inpatient Admit Date: 09/24/2020 Staff Ordering Physician: Gurjit Feliciano MD Attending Provider: Manas Gaytan MD Exercise Technologist: Salome Díaz NICKI Exercise Physician: Kalin Castorena DO Exam Type: CA stress hannah w NM Study Info Indications - EPIGASTRIC PAIN IN DIABETIC A regadenoson stress test was performed. Summary 1. 1. Negative lexiscan stress test for ischemic ST changes by ECG criteria. 2. 2. Relative hypotension. 3. 3. Nuclear scan to follow and will be reported separately. Please correlate with it. 4. 4. Patient informed of the above results. Protocol: Lexiscan Stress ECG Details Stage: REST Duration (min): 1 min : 15 sec HR (bpm): 70 SBP (mmHg): 82 DBP (mmHg): 51 Stage: REST Duration (min): 4 min : 7 sec HR (bpm): 70 SBP (mmHg): 82 DBP (mmHg): 51 Stage: STAGE 1 Duration (min): 0 min : 59 sec HR (bpm): 75 SBP (mmHg): 91 DBP (mmHg): 58 Stage: RECOVERY Duration (min): 1 min : 0 sec HR (bpm): 87 SBP (mmHg): 75 DBP (mmHg): 56 Stage: RECOVERY Duration (min): 2 min : 0 sec HR (bpm): 83 SBP (mmHg): 75 DBP (mmHg): 56 Stage: RECOVERY Duration (min): 3 min : 0 sec HR (bpm): 80 SBP (mmHg): 75 DBP (mmHg): 56 Stage: RECOVERY Duration (min): 3 min : 18 sec HR (bpm): --- SBP (mmHg): 75 DBP (mmHg): 56 Rest HR: 70 bpm Peak HR: 87 bpm Rest Sys BP: 82 mmHg Peak Sys BP: 91 mmHg Max Pred HR: 176 bpm % Max Pred HR: 49 % Target HR: 150 bpm Max RPP: 7,917 bpm*mmHg Termination Reason: Completed protocol Cardiac Symptoms: Shortness of breath, Dizziness Total Time: 1 min : 0 sec Rest Puente BP: 51 mmHg Peak Puente BP: 58 mmHg Total Dose: 0.4 mg Resting ECG Electronic atrial pacemaker, IRBBB, low voltage in precordia leads. Stress ECG No ST changes. Arrhythmias None. Report Signatures
[2020-09-25] MEDS: INSULIN ASPART (*BKC) 100 UNITS/ML SUB-Q (10:01)
[2020-09-25] MEDS: ALPRAZolam (*CRX) 0.5 MG TABLET 1 MG PO (10:09)
[2020-09-25 12:34] LABS: Glucose Point of Care 263 (65-105)
--- NOTE | 2020-09-25 15:02 | WPDGICN ---
Assessment and Plan Assessment and plan (1) Acute epigastric pain: Code(s): R10.13 - Epigastric pain Status: Acute Assessment and Plan: with abnormal CT scan, will assess with egd tomorrow (2) Uncontrolled diabetes mellitus: Code(s): E11.65 - Type 2 diabetes mellitus with hyperglycemia Status: Acute Assessment and Plan: by primary team, history of non-compliance (3) Family history of colon cancer in father: Code(s): Z80.0 - Family history of malignant neoplasm of digestive organs Status: Acute Assessment and Plan: will do a colonoscopy tomorrow also intermittent abdominal pain (4) Pacemaker: Code(s): Z95.0 - Presence of cardiac pacemaker Status: Acute GI Consult Note Consult date/time: 09/25/20 15:02 Reason for consult: abdominal pain, abnormal CT scan abdomen HPI: Valerie Nguyen is a 44 year old female with history of diabetes, coronary artery disease, history of ventricular tachycardia s/p pacemaker, non-compliance (she was supposed to be on anticoagulation but could not afford it), history of drug abuse including cocaine who came here with chest pain that started in the epigastric area and radiated down the middle of her abdomen went to her lower pelvic area, moderate intensity, more frequent last 2-3 days. ER evaluation had CT scan reviewed and showed distended stomach, could be from postprandial status with duodenum collapsed and can't exclude wall edema from peptic ulcer disease, small umbilical fat-containing hernia. Recent stress test was negative. She also says that father had colon cancer at early 50's, she never had scopes. She is worried about cancer. Review of Systems Constitutional: Constitutional: Denies lethargy Eyes: Eyes: Reports no additional eye complaints ENT: Reports system reviewed and no additional complaints, except as documented Cardiovascular: Cardiovascular: Denies lightheadedness Respiratory: Respiratory: Denies cough Gastrointestinal: Gastrointestinal: Reports abdominal pain and Denies hematochezia Genitourinary: Genitourinary: Denies hematuria Musculoskeletal: Musculoskeletal: Denies neck pain Integumentary/Breasts: Skin/Breast: Denies dry skin Neurologic: Reports system reviewed and no additional complaints, except as documented Psychiatric: Psychiatric: Reports anxiety [facility] Past Medical History Medical History (Updated 09/25/20 @ 15:20 by Yvan Marinelli MD) Anemia Anxiety Arthritis Asthma Bipolar disorder COPD (chronic obstructive pulmonary disease) Depression Diabetes mellitus DVT (deep venous thrombosis) Eczema Of the scalp Epilepsy Family history of colon cancer in father Foot fracture, right GERD (gastroesophageal reflux disease) Herniated disc HTN (hypertension) Hyperlipidemia MRSA (methicillin resistant staph aureus) culture positive Obesity Pacemaker Peripheral neuropathy Pulmonary embolism Seizures Sleep apnea Suicide attempt Ulcer Uncontrolled diabetes mellitus UTI (urinary tract infection) Surgical History Surgical History History of bilateral knee replacement History of cholecystectomy Family History Family History Mother Heart disease Acute myocardial infarction Uterine cancer COVID-19 Diabetes mellitus Hypertension Kidney disease Father Heart disease Social History Social History (Updated 09/24/20 @ 21:19 by Misty Holman NP) Social History: The patient is . She has 4 children. She is living with her ex [id number]. Her children are being raised by her sister. She does not have a durable power civil attorney for healthcare. She was noted to smoke crack in the past. She said she quit smoking cigarettes. She denies any drug involvement at this time. Smoking packs per day: 2.5 Smoking cigarettes per day: 50.0 Years smok
--- NOTE | 2020-09-25 15:30 | PC.NURSE ---
RECEIVED TO CHIEF CARDIOPULMONARY TECHNOLOGIST 6 VIA WC FROM IMU 200.1 MED/SURG STATUS OVERFLOW. REPORT HAS BEEN RECEIVED FROM FERN SANTILLAN. ON ARRIVAL, PT DROWSY, AROUSABLE TO NAME. ASSISTED TO BED, LEANING SITTING EDGE OF BED. ORIENTED TO NEW ROOM AND PLAN OF CARE. SLOW TO RESPOND TO QUESTIONS. PLACED ON BEDSIDE MONITOR. MONITOR IS APACED AT 70. SAT 100% ON ROOM AIR, BUT RR 12. BP 79/53 FAR LEFT SIDE-LYING. DENIES PAIN OR SOB OR ABDOMINAL PAIN. WILL REPOSITION, ASSESS, AND RECHECK BP.
--- NOTE | 2020-09-25 15:50 | PC.NURSE ---
REMAINS SLEEPY AND LETHARGIC. ASSESSMENT COMPLETE. LUNGS CLEAR. SAT 100% ON ROOM AIR, BUT RR SLOW. REQUESTED RESPIRATORY TO COME PLACE BIPAP ON PT DUE TO SLEEPINESS. REPOSITIONED AND ATTEMPTED TO STIMULATE. PUPILS EQUAL AND SLUGGISH. HAND REELING AND TUBING MACHINE OPERATOR EQUAL AND WEAK. SKIN COOL.
--- NOTE | 2020-09-25 16:10 | PC.NURSE ---
NOTIFIED DR. PARSONS OF PT'S ARRIVAL TO [facility] AT 1530 AND HAVING CONTINUED LOW BP AND LETHARGY DESPITE REPOSITION OF PT, STIMULATION, RECHECKS OF BP, FULL ASSESSMENT. BLOOD GLUCOSE CHECK AT 1607 IS 68. LAST NOTED PAIN MED AND ANXIETY MED GIVEN AT 0947 AND 1009 RESPECTIVELY. ORDERS RECEIVED FOR 0.4MG NARCAN IVP AND START 1L NS BOLUS IV AT 999ML/HR. DR. PARSONS TO BE OVER TO SEE PT.
[2020-09-25 16:13] LABS: Glucose Point of Care 68 (65-105)
--- NOTE | 2020-09-25 16:25 | PC.NURSE ---
DR. PARSONS HERE AT BEDSIDE. NARCAN 0.4MG IVP JUST GIVEN AND NS BOLUS STARTED AT 999ML/HR. PT. BECAME ANIMATED AND AGITATED, VERBAL. PULLED BIPAP MASK OFF FACE. BP TO 85/60. PT. VOIDED AND HAD BM. REASSURANCE GIVEN. WILL CONTINUE TO MONITOR.
--- NOTE | 2020-09-25 16:35 | PC.NURSE ---
NOTIFIED SOCIAL MEDIA CONTENT SPECIALIST DIRECTOR GENOVEVA NÚÑEZ RN OF PT'S CONDITION SINCE ARRIVAL AND IS NOT DESCRIBED IN RECEIVED REPORT FROM PREVIOUS RN. HOSPITAL ENVIRONMENTAL CONTROL ADMINISTRATOR ALSO NOTIFIED. 120ML APPLE JUICE GIVEN FOR BLOOD GLUCOSE OF 68
--- NOTE | 2020-09-25 16:38 | PC.NURSE ---
This patient, Valerie Nguyen, was transferred to [facility] Bed 6 on 09/25/20 at 1530. Personal belongings sent with patient. Report given to Jeanie. Appropriate documentation sent with patient.
--- NOTE | 2020-09-25 16:45 | PC.NURSE ---
CONDITION UPDATE AGAIN CALLED TO DR. PARSONS. PT. HAS BECOME LETHARGIC AND SLEEPY AGAIN. BP AT 67/47. ORDERS AND PLAN REQUESTED. ORDERS RECEIVED TO GIVE 0.4MG NARCAN IVP AGAIN AND ASK RESPIRATORY TO PLACE BACK ON BIPAP. TRANSFER PT. TO ICU. HOSPITAL MOLECULAR BIOLOGY PROFESSOR NOTIFIED.
[2020-09-25] MEDS: NALOXONE HCL 0.4 MG/ML VIAL 0.1 MG IV PUSH ×2 (16:55→17:59)
[2020-09-25] MEDS: NALOXONE HCL 0.4 MG/ML VIAL IV PUSH (16:57)
--- NOTE | 2020-09-25 17:00 | PC.NURSE ---
NARCAN 0.4MG IVP HAS BEEN GIVEN AT 1657. REPORT CALLED TO TORIBIO Sahu RN IN ICU. PT. IS TO TRANSFER TO ICU 9. IVF BOLUS CONTINUES.
[2020-09-25] MEDS: NALOXONE HCL 0.4 MG/ML VIAL 0.8 MG IV PUSH (17:10)
--- NOTE | 2020-09-25 17:10 | PC.NURSE ---
DR. PARSONS, ICU CHARGE NURSE AND DIRECTOR AT BEDSIDE. 0.8MG NARCAN IV GIVEN AT THIS TIME. RESP THERAPY ATTEMPTING ABG'S. AFTER NARCAN, PT. AWAKE, AGITATED, CUSSING, RESTLESS. BP NOW AT 101/80.
--- NOTE | 2020-09-25 17:20 | PC.NURSE ---
TRANSFERRED TO ICU 9 VIA BED ON MONITOR PER ORDER FROM DR. PARSONS. REPORT UPDATES GIVEN TO TORIBIO Sahu RN ON ARRIVAL
[2020-09-25] MEDS: DEXTROSE 50% 25 GM/50 ML SYRINGE IV PUSH (17:26)
--- NOTE | 2020-09-25 17:28 | PM.IMPN ---
Progress Note: A&P Assessment and Plan (1) Altered mental status: Code(s): R41.82 - Altered mental status, unspecified Status: Acute Assessment and Plan: Patient became obtunded Responded to Narcan 0.4 mg first then had another episode for which she was given another 0.4 mg of Narcan to receive a total of 1.6 of Narcan. All opiates have been discontinued Suspect meds as patient on various psychotropics which have been discontinued for now Caution when re starting. Transferred to ICU. CMP, CBC, Lactic acid, ABG. Discussed with Int/CC (2) Hypotension: Code(s): I95.9 - Hypotension, unspecified Status: Acute Assessment and Plan: Likely secondary to meds Doubtful of sepsis Will send blood cx as well. (3) Ventricular tachycardia (paroxysmal): Code(s): I47.2 - Ventricular tachycardia Status: Acute Assessment and Plan: Patient has pacemaker in situ. ECG and Telemetry with paced rhythm spikes (4) Sleep apnea: Code(s): G47.30 - Sleep apnea, unspecified Status: Acute Assessment and Plan: On CPAP (5) COPD (chronic obstructive pulmonary disease): Code(s): J44.9 - Chronic obstructive pulmonary disease, unspecified Status: Acute Assessment and Plan: Continue breathing treatments. Pulse ox is good. Defending airway CPAP for back up and sleep (6) Peripheral neuropathy: Code(s): G62.9 - Polyneuropathy, unspecified Status: Acute Assessment and Plan: Holding Gabapentin (7) Epilepsy: Code(s): G40.909 - Epilepsy, unspecified, not intractable, without status epilepticus Status: Acute Assessment and Plan: Seizure free while on this admission and according to history at home (8) Acute epigastric pain: Code(s): R10.13 - Epigastric pain Status: Acute Assessment and Plan: Patient had Lexiscan today which did not showed any ischemia. GI consult has been obtained Patient was supposed to get EGD in am but will hold off due to 1 Appreciate GI note. (9) Chronic anticoagulation: Code(s): Z79.01 - outsole tacker (current) use of anticoagulants Status: Acute Assessment and Plan: INR noted Patient not on anticoagulation as per home meds. (10) Frequent falls: Code(s): R29.6 - Repeated falls Status: Acute Assessment and Plan: No complains while on this admission No signs at physical exam either (11) Eczema: Code(s): L30.9 - Dermatitis, unspecified Status: Acute Assessment and Plan: Psoriasis Follow up in the outpatient setting. (12) Anxiety: Code(s): F41.9 - Anxiety disorder, unspecified Status: Chronic Assessment and Plan: Holding Xanax Subjective Date/time seen: 09/25/20 17:28 Unresponsive at this time. When seen earlier today patient was awake, alert Ox 3 Review of Systems Review of Systems: Narrative: Initially presented to hospital due to epigastric pain now she is obtunded upon arrival to the room Exam Narrative: Exam Narrative: Lying in bed, obtunded. Const: General: patient obtunded Orientation/consciousness: patient obtunded Limitations: altered mental status HENMT: Head: normal to inspection and normocephalic Ears: hearing grossly normal bilaterally General nose exam: Normal external nose present Face and sinus: normal facial exam Teeth and gingiva: dentition normal Eyes: General: appearance normal, both eyes and all related structures Pupils: Equal, round and reactive pupils present EOM: EOMs intact bilaterally Neck: Neck: normal visual inspection, no lymphadenopathy, supple and no JVD Resp: Auscultation: clear to auscultation bilaterally Cardio: Jugular venous distension: no JVD Rate: regular rate Rhythm: regular rhythm and other (paced rhythm.) GI: Inspection: normal to inspection GI Palp: Yes Soft to palpation and Yes No hepatosplenomegaly present Skin: General skin exa
[2020-09-25 17:36] LABS: Alveolar/Arterial O2 Gradient 21.8 mmHg; Base Excess ABG -3.3 mEq/l (+/-2.0); Fractional Inspired Oxygen 21 %; HCO3 ABG 21.9 mEq/l (22.0-26.0); Oxygen Content ABG 16.5 %vol (16.0-22.0); Oxygen Saturation ABG 95.4 % (95.0-100.0); Oxyhemoglobin 94.1 % THb (90.0-100.0); PO2 FiO2 Ratio Arterial Blood 3.81 %; Total Hemoglobin 12.4 g/dL (12.0-18.0); pH ABG 7.357 (7.350-7.450)
[2020-09-25 17:37] LABS: Device ROOM AIR; Site Drawn RIGHT BRACHIAL
[2020-09-25 18:01] LABS: Glucose Point of Care 65 (65-105)
[2020-09-25 18:01] LABS: Glucose Point of Care 131 (65-105)
[2020-09-25 18:01] LABS: Glucose Point of Care 134 (65-105)
[2020-09-25] MEDS: SODIUM CHLORIDE 0.9% IV 1,000 ML 999 ML IV CONT ×2 (18:15→18:29)
[2020-09-25 18:30] LABS: Lactic Acid Reflex 1.3 mmol/L (0.7-2.1)
[2020-09-25] MEDS: flumazeniL 0.5 MG/5 ML VIAL 0.1 MG IV PUSH ×2 (18:30→18:37)
[2020-09-25 18:32] LABS: Alanine Aminotransferase 9 U/L (4-35); Albumin Level 2.5 g/dL (3.5-5.1); Alkaline Phosphatase 46 U/L (38-126); Anion Gap 2 mmol/L (8-16); Aspartate Amino Transferase 19 U/L (14-36); Bilirubin,Total 0.2 mg/dL (0.2-1.3); Blood Urea Nitrogen 22 mg/dL (7-17); Calcium 7.6 mg/dL (8.4-10.2); Carbon Dioxide 25 mmol/L (22-30); Chloride 108 mmol/L (98-107); Estimated Glomerular Filt Rate > 60; Glucose 112 mg/dL (65-105); Sodium 135 mmol/L (137-145)
--- NOTE | 2020-09-25 18:38 | PC.NURSE ---
This patient, Valerie Nguyen, was received from [[facility] ] on 09/25/20 at 1715. Patient/family oriented to unit policies and routines. Narcan and bolus given prior to arrival.
[2020-09-25 21:32] LABS: Glucose Point of Care 93 (65-105)
[2020-09-25] MEDS: SODIUM CHLORIDE 0.9% IV 1,000 ML 75 ML IV CONT (23:25)
[2020-09-26] VITALS: BP 93/64; PULSE 70; RESP 15; TEMP 36.9; O2SAT 99
[2020-09-26 00:27] LABS: Glucose Point of Care 78 (65-105)
[2020-09-26 02:00] VITALS: BP 88/56; PULSE 70; RESP 10; O2SAT 100
[2020-09-26 02:05] LABS: Glucose Point of Care 67 (65-105)
[2020-09-26] MEDS: DEXTROSE 50% 25 GM/50 ML SYRINGE IV PUSH (02:06)
[2020-09-26 02:30] LABS: Glucose Point of Care 124 (65-105)
[2020-09-26 03:36] LABS: Glucose Point of Care 93 (65-105)
[2020-09-26 04:00] VITALS: BP 96/68; PULSE 76; RESP 12; TEMP 36.6; O2SAT 100
[2020-09-26 06:00] VITALS: BP 90/64; PULSE 77; RESP 14; O2SAT 99
[2020-09-26 06:25] LABS: Glucose Point of Care 70 (65-105)
[2020-09-26 07:55] LABS: Glucose Point of Care 73 (65-105)
[2020-09-26 08:00] VITALS: BP 97/75; PULSE 85; RESP 11; TEMP 36.1; O2SAT 97
[2020-09-26] MEDS: SODIUM CHLORIDE 0.9% IV 1,000 ML 999 ML IV CONT (08:17)
--- NOTE | 2020-09-26 08:44 | WPDCNINT ---
Assessment and Plan Assessment and plan (1) Encephalopathy: Code(s): G93.40 - Encephalopathy, unspecified Status: Acute Assessment and Plan: Encephalopathy of unknown etiology -could be related to pain medications, Xanax other psychotropic medication -patient was hydrated, will give additional IV fluids at this time -patient did respond to Narcan. -currently awake, alert, oriented x3, nonfocal -will check urine tox screen (2) Hypotension: Code(s): I95.9 - Hypotension, unspecified Status: Acute Assessment and Plan: Hypotension could be related to medications, sepsis, infection -patient has normal white blood cell count, normal lactic acid level. -blood cultures have been obtained and pending (3) Chest pain: Code(s): R07.9 - Chest pain, unspecified Status: Acute Assessment and Plan: Chest pain status post Lexiscan stress test on 09/24/2020: Negative Lexiscan test for ischemic ST changes by EKG criteria normal myocardial perfusion at rest and during stress. LV ejection fraction measuring 48% -cardiology following the patient -will order echocardiogram (4) COPD (chronic obstructive pulmonary disease): Code(s): J44.9 - Chronic obstructive pulmonary disease, unspecified Status: Acute Assessment and Plan: Continue bronchodilators (5) Anxiety: Code(s): F41.9 - Anxiety disorder, unspecified Status: Chronic Assessment and Plan: Hold all psychotropic medications (6) Pacemaker: Code(s): Z95.0 - Presence of cardiac pacemaker Status: Acute Assessment and Plan: History of pacemaker Additional Plan Discussed with patient updated with her condition and plan of care. I answered all questions Code status: Full code Critical care time spent: 38 minutes Due to a high probability of clinically significant, life threatening deterioration, the patient required my highest level of preparedness to intervene emergently and I personally spent this critical care time directly and personally managing the patient. This critical care time included obtaining a history; examining the patient; pulse oximetry; ordering and review of studies; arranging urgent treatment with development of a management plan; evaluation of patient's response to treatment; frequent reassessment; and discussions with other providers. It was exclusive of separately billable procedures and treating other patients and teaching time. Please see Assessment and Plan section and the rest of the note for further information on patient assessment and treatment Studio Camera Operator Consult Note Consult date: 09/26/20 Time Seen: 07:22 Reason for consult: Encephalopathy, hypotension HPI: Valerie Nguyen is a 44 year old female With past medical history of anemia, anxiety, asthma, bipolar disorder, COPD, depression, diabetes, DVT, eczema, GERD, essential hypertension, hyperlipidemia, pacemaker, peripheral neuropathy, history of pulmonary embolism, seizures, suicide attempt, UTIs presented the ED on 09/24/2020 with complains of chest pain, abdominal pain. Patient stated she developed epigastric pain on the day of admission which was sharp and nonradiating. Worse with palpation. She also complained of central chest pain that was sharp and radiating down the right side. Also complained of some dyspnea. Troponins were negative CT of the chest abdomen and pelvis showed distended stomach, we from postprandial status with duodenal collapse, cannot exclude wall edema from peptic ulcer disease. Small umbilical fat containing hernia. Unremarkable aorta. Pulmonary arteries are without filling defects. The lungs are clear. Lexiscan stress test on 09/25/2020: Negative Lexiscan test for ischemic ST changes by EKG criteria normal myocardial perfusion at rest and during stress. LV ejection fraction measuring 48%. patient was scheduled for an EGD today, but on the evening of 09/25/2020, patient was fou
[2020-09-26] MEDS: GABAPENTIN 400 MG CAPSULE 800 MG PO (08:52)
[2020-09-26] MEDS: FAMOTIDINE 20 MG/2 ML VIAL IV PUSH (08:52)
[2020-09-26] MEDS: ATORVASTATIN 20 MG TABLET PO (08:52)
[2020-09-26] MEDS: POTASSIUM CHLORIDE 20 MEQ TABLET.ER PO (08:52)
[2020-09-26] MEDS: ENOXAPARIN 80 MG/0.8 ML SYRINGE 78 MG SUB-Q (08:53)
[2020-09-26] MEDS: FLUTICASONE PROPIONATE 0.05% NA SPR 16 GM BTL (*BKC) 2 SPRAY NASAL (08:54)
[2020-09-26] MEDS: METOPROLOL SUCCINATE EXT REL 50 MG TABCR PO (08:55)
[2020-09-26] MEDS: levETIRAcetam 500 MG TABLET PO (08:55)
[2020-09-26 12:39] LABS: Glucose Point of Care 179 (65-105)
[2020-09-26] MEDS: SUCRALFATE 1 GM TABLET PO (13:06)
--- NOTE | 2020-09-26 15:39 | WPDGIPROGNO ---
Progress Note: A&P Assessment and Plan (1) Acute epigastric pain: Code(s): R10.13 - Epigastric pain Status: Acute Assessment and Plan: she is eating now, no much of abdominal pain she does not want to have scopes yet. She does not need to stay in the hospital, I can see her in office as outpatient and then schedule at a later time. will sign off (2) Encephalopathy: Code(s): G93.40 - Encephalopathy, unspecified Status: Acute Assessment and Plan: resolved, ? narcotic/bipolar meds related she is back to her baseline (3) Uncontrolled diabetes mellitus: Code(s): E11.65 - Type 2 diabetes mellitus with hyperglycemia Status: Acute (4) Family history of colon cancer in father: Code(s): Z80.0 - Family history of malignant neoplasm of digestive organs Status: Acute Assessment and Plan: colonoscopy as outpatient (5) Bipolar disorder: Code(s): F31.9 - Bipolar disorder, unspecified Status: Acute Subjective Date/time seen: 09/26/20 15:39 Interval history: she was found almost unresponsive yesterday, transferred to icu (apparently responded to narcan). Now she is fully awake, ate regular diet. Review of Systems Review of Systems: All systems reviewed & are unremarkable except as noted in HPI and below Exam Const: General: comfortable and no acute distress HENMT: General nose exam: Normal nares present Eyes: General: appearance normal, both eyes and all related structures Neck: Neck: no JVD Resp: Auscultation: clear to auscultation bilaterally Cardio: Rate: regular rate Rhythm: regular rhythm GI: Inspection: non-distended GI Palp: Yes Soft to palpation Skin: General skin exam: normal color Neuro: Speech: normal speech Motor exam (neuro): Normal motor muscle tone present throughout Extrem: General: normal to inspection Psych: Affect: Anxious affect present Objective Data Vital Signs Vital Signs: Vital Signs - 24 hr 09/25/20 15:45 09/25/20 15:50 09/25/20 16:00 Temperature Pulse Rate 70 70 Respiratory Rate 10 L 16 Blood Pressure 80/51 L 81/53 L Pulse Oximetry 100 100 100 09/25/20 16:15 09/25/20 16:30 09/25/20 16:45 Temperature Pulse Rate 70 70 70 Respiratory Rate 14 12 10 L Blood Pressure 75/52 L 85/60 L 70/38 L Pulse Oximetry 100 100 97 09/25/20 16:55 09/25/20 17:01 09/25/20 17:10 Temperature Pulse Rate 70 73 73 Respiratory Rate 16 20 16 Blood Pressure 59/27 L 90/58 L 101/80 Pulse Oximetry 98 100 100 09/25/20 17:33 09/25/20 17:53 09/25/20 18:00 Temperature 97.1 F L Pulse Rate 70 70 70 Respiratory Rate 12 10 L 10 L Blood Pressure 145/52 H 70/47 L 76/58 L Pulse Oximetry 100 100 100 09/25/20 20:00 09/25/20 22:00 09/25/20 22:10 Temperature 97.6 F Pulse Rate 70 70 Respiratory Rate 18 12 Blood Pressure 86/52 L 81/54 L Pulse Oximetry 97 99 99 09/26/20 00:00 09/26/20 02:00 09/26/20 04:00 Temperature 98.4 F 97.9 F Pulse Rate 70 70 76 Respiratory Rate 15 10 L 12 Blood Pressure 93/64 L 88/56 L 96/68 L Pulse Oximetry 99 100 100 09/26/20 06:00 09/26/20 08:00 Temperature 97 F L Pulse Rate 77 85 Respiratory Rate 14 11 L Blood Pressure 90/64 L 97/75 L Pulse Oximetry 99 97 Intake/Output Intake/Output: Intake & Output 09/23/20 09/24/20 09/25/20 09/26/20 23:59 23:59 23:59 23:59 Intake Total 1000 2480 1750 Output Total 1350 500 Balance 1000 1130 1250 Meds/Results Medications: Active Medications Generic Name Dose Route Start Last Admin Trade Name Freq PRN Reason Stop Dose Admin Acetaminophen 650 mg 09/24/20 16:05 Acetaminophen 325 Mg Tablet PO Q4H PRN Mild Pain (1-3) or Fever Albuterol 2 puff 09/25/20 00:12 Albuterol Sulfate (*Sp) Aerosol 1 Puff INHALATION QID PRN shortness of breath or wheezing Atorvastatin Calcium 20 mg 09/25/20 09:00 09/26/20 08:52 Atorvastatin 20 Mg Tablet PO 20 mg DAILY RAMONE Adminis
--- NOTE | 2020-09-26 15:43 | PM.DS ---
DS: Admitting Diagnosis Admitting Diagnosis Admitting Diagnosis: (1) Acute epigastric pain: (2) History of pulmonary embolism: (3) Diabetes mellitus: . (4) HTN (hypertension): (5) Anxiety: DS: Discharge Diagnosis Discharge Diagnosis (1) Acute epigastric pain: Code(s): R10.13 - Epigastric pain Status: Acute Assessment and Plan: Patient was ruled out for MT A GI consult was requested (2) Encephalopathy: Code(s): G93.40 - Encephalopathy, unspecified Status: Acute Assessment and Plan: Secondary to drug toxicity (3) Altered mental status: Code(s): R41.82 - Altered mental status, unspecified Status: Acute Assessment and Plan: Resolved at time of discharge (4) COPD (chronic obstructive pulmonary disease): Code(s): J44.9 - Chronic obstructive pulmonary disease, unspecified Status: Acute Assessment and Plan: Stable Patient a current every day smoker (5) Sleep apnea: Code(s): G47.30 - Sleep apnea, unspecified Status: Acute Assessment and Plan: On CPAP at night time (6) Peripheral neuropathy: Code(s): G62.9 - Polyneuropathy, unspecified Status: Acute Assessment and Plan: Unchanged. (7) Chronic anticoagulation: Code(s): Z79.01 - half-way (current) use of anticoagulants Status: Acute Assessment and Plan: Continue to monitor (8) Frequent falls: Code(s): R29.6 - Repeated falls Status: Acute Assessment and Plan: Likely secondary to polypharmacy (9) Pacemaker: Code(s): Z95.0 - Presence of cardiac pacemaker Status: Acute Assessment and Plan: Continue to monitor (10) Ventricular tachycardia (paroxysmal): Code(s): I47.2 - Ventricular tachycardia Status: Acute Assessment and Plan: S/p pacemaker placement (11) Bipolar disorder: Code(s): F31.9 - Bipolar disorder, unspecified Status: Acute Assessment and Plan: Continue home meds DS: Summary Hospital Course Reason for hospitalization: Epigastric discomfort. Hospital Course: Valerie Nguyen is a 44 year old female who came to the emergency room due to epigastric discomfort. Worse with palpation. The patient was walking to get her diabetic medication and she developed central chest pain that was radiating down her right side. She became short of breath. She was supposed to get a stress test in the past but was not able to tolerate being on a treadmill then was scheduled for chemical induced stress test. Has had a heart attack in the past but did not have any cardiac stents. She states that she has a pacemaker because she has had a myocardial infarction per patient. Her class b driver is at [facility]. The patient sees Dr. Hathaway at [facility] and that she was told to stop taking her Coumadin and start taking Eliquis however her Eliquis has not been covered by her insurance. She has not been able to get her Eliquis. She has had PEs and DVTs in the past and she is not able to take her blood thinners because it is not covered by her insurance. She stated that Dr. Hathaway attempted to get her qualified for it but was not able to do so as of yet. Pain is sharp today and and is nonradiating. Troponins are wnl. Patient was ruled out for MT with serial cardiac enzymes and had a nuclear stress test done which did not showed any acute abnormalities for perfusion and was sent to chest pain center post test when she became unresponsive shortly after and received Narcan x 1 about 1/2 hour later I was called to patient's bedside due to unresponsiveness as well and had Narcan a total of 1.6 mg and was transferred to the ICU for close monitoring overnight while in the unit she required Romazicom x 2 . She was back to her usual in the morning, all her opiates had being held up to this point. GI consult was requested for epiga
--- NOTE | 2020-09-26 15:51 | PC.NURSE ---
This patient, Valerie Nguyen, was transferred to [facility] on 09/26/20 at 1530. Personal belongings sent with patient. Report given to Ruth SANTILLAN. Appropriate documentation sent with patient.
== END 2020-09-26 18:10 | disposition home or self-care (01) ==
LOC: ANHED 16:51 → ANHIMU 09-25 02:58 → ANHICU 09-26 10:43 → ANH3MEDSUR 09-26 15:32 → ANHCPC 09-27 14:15 → ANHICU 09-27 14:15 → ANHIMU 09-27 14:15
PROVIDERS: Nurse Practitioner; Admitting Provider Internal Medicine; Emergency Provider Emergency Medicine; PCP Internal Medicine; Visit Provider Internal Medicine
DX: R10.13 Epigastric pain (principal); G93.40 Encephalopathy, unspecified; T50.905A Adverse effect of unspecified drugs, medicaments and biological substances, initial encounter; I95.9 Hypotension, unspecified; R07.9 Chest pain, unspecified; J44.9 Chronic obstructive pulmonary disease, unspecified; I47.2 Ventricular tachycardia; R29.6 Repeated falls; L30.9 Dermatitis, unspecified; E11.65 Type 2 diabetes mellitus with hyperglycemia; R06.02 Shortness of breath; R20.0 Anesthesia of skin; E11.42 Type 2 diabetes mellitus with diabetic polyneuropathy; I10 Essential (primary) hypertension; E78.5 Hyperlipidemia, unspecified; G40.909 Epilepsy, unspecified, not intractable, without status epilepticus; D64.9 Anemia, unspecified; F41.9 Anxiety disorder, unspecified; F31.9 Bipolar disorder, unspecified; K21.9 Gastro-esophageal reflux disease without esophagitis; G47.30 Sleep apnea, unspecified; F14.90 Cocaine use, unspecified, uncomplicated; F17.200 Nicotine dependence, unspecified, uncomplicated; Z95.0 Presence of cardiac pacemaker; Z79.4 Long term (current) use of insulin; Z86.718 Personal history of other venous thrombosis and embolism; Z86.711 Personal history of pulmonary embolism; Z86.14 Personal history of Methicillin resistant Staphylococcus aureus infection; Z91.5 Personal history of self-harm; Z80.0 Family history of malignant neoplasm of digestive organs; Z91.120 Patient's intentional underdosing of medication regimen due to financial hardship; Z79.01 Long term (current) use of anticoagulants
CPT/HCPCS: 36415; 36600; 71046; 71275; 74174; 78452; 80048; 80053; 80076; 81001; 82805; 82948; 83036; 83605; 83690; 83735; 84443; 84484; 85025; 85610; 85730; 87040; 93005; 93017; 96361; 96372; 96374; 96375; 96376; 99285; A9270; A9502; G0378; G0379; J1650; J1815; J2270; J2310; J2785; J7030; Q9967

== ENCOUNTER 2020-10-18 11:40 | Emergency (ER) | payer OTHER, SELFPAY ==
[2020-10-18] VITALS (11 sets, daily range): BP systolic 117–131; BP diastolic 42–80; PULSE 83–93; RESP 12–22; TEMP 35.9; O2SAT 97–100
--- NOTE | ~2020-10-18 | XR_ITS ---
EXAMINATION: XR chest 2V EXAM DATE: 10/18/2020 12:15 INDICATION: Mid chest pain. TECHNIQUE: Frontal and lateral projections of the chest obtained and reviewed. Comparison is made to prior examination from 09/24/2020. FINDINGS: There is a dual lead pacemaker/AICD seen with leads projecting over the expected locations of the right atrial appendage and right ventricle. Loop in the ventricular lead is unchanged. The nilson ngs are clear. There are no pleural effusions. Cardiac silhouette is prominent but magnified on thi s AP technique. There is no pneumothorax suspected. The bones and soft tissues are unremarkable. There is no significant interval change. IMPRESSION: No acute cardiopulmonary findings. Reviewed, dictated and finalized at location B. CLOSURE CLERK
--- NOTE | 2020-10-18 11:43 | ECG_ITS ---
Measurements Intervals [place] Rate: 89 P: 41 RI: 145 QRS: -3 QRSD: 92 T: 7 QT: 357 QTc: 437 Interpretive Statements SINUS RHYTHM LOW QRS VOLTAGE IN PRECORDIAL LEADS BORDERLINE R WAVE PROGRESSION, ANTERIOR LEADS BORDERLINE ST-T WAVE ABNORMALITY- INF/HIGH LAT LEADS BASELINE ARTIFACT- I, III, AVR, AVL, AVF, V1-V4 BORDERLINE ECG Electronically Signed On 10-18-2020 11:57:00 MUSIC VIDEO PRODUCER by Kalin Castorena D.O.
--- NOTE | 2020-10-18 12:12 | PC.NURSE ---
Pt refusing blood draw, requests IV and labs at same time. Called IV Access (Ronit SANTILLAN) and requested u/s placement due to pt PMH of difficultly gaining access and pt request.
[2020-10-18 12:46] LABS: Basophils Percent Auto 0.4 % (0.2-1.2); Eosinophils Absolute Auto 0.2 K/mm3 (0-0.3); Eosinophils Percent Auto 2.7 % (0-4.4); Hematocrit 40.2 % (37.0-47.0); Hemoglobin 13.5 g/dL (12.0-15.0); Immature Granulocyte Absolute 0.03 K/mm3 (0.00-0.031); Immature Granulocyte Percent A 0.4 % (0-0.5); Lymphocytes Absolute Auto 1.72 K/mm3 (0.9-3.2); Lymphocytes Percent Auto 25.7 % (18.3-44.2); Mean Corpuscular HGB Conc 33.6 g/dl (32-36); Mean Corpuscular Hemoglobin 28.8 pg (26-34); Mean Corpuscular Volume 85.9 fl (80-100); Mean Platelet Volume 10.1 fl (7.4-10.4); Monocytes Absolute Auto 0.5 K/mm3 (0.1-0.6); Monocytes Percent Auto 7.3 % (2.6-8.5); Neutrophils Absolute Auto 4.2 K/mm3 (1.3-6.7); Neutrophils Percent Auto 63.5 % (45.5-73.1); Platelet Count Result 250 k/mm3 (150-375); Red Blood Count 4.68 M/mm3 (4.2-5.4); Red Cell Distribution Width 13.6 % (11.5-14.5); White Blood Count 6.7 K/mm3 (4.5-10.0)
[2020-10-18 12:58] LABS: INR 0.8; Prothrombin Time 11.4 Seconds (11.1-14.7)
[2020-10-18 12:59] LABS: Partial Thromboplastin Time 21.3 SECONDS (22.3-36.8)
[2020-10-18 13:12] LABS: Anion Gap 5 mmol/L (8-16); Blood Urea Nitrogen 19 mg/dL (7-17); Calcium 9.1 mg/dL (8.4-10.2); Carbon Dioxide 32 mmol/L (22-30); Chloride 96 mmol/L (98-107); Estimated Glomerular Filt Rate > 60; Glucose 515 mg/dL (65-105); Potassium 4.3 mmol/L (3.4-5.0); Sodium 133 mmol/L (137-145)
[2020-10-18 13:19] LABS: Troponin I < 0.012 ng/mL (0.000-0.034)
[2020-10-18] MEDS: INSULIN HUMAN REGULAR (*BKC) 100 UNITS/ML 10 UNITS IV PUSH (14:00)
[2020-10-18 14:13] LABS: Alveolar/Arterial O2 Gradient 17.3 mmHg; Base Excess ABG 0.6 mEq/l (+/-2.0); Carboxyhemoglobin 0.5 % THb (0-2.0); Fractional Inspired Oxygen 21 %; Methemoglobin ABG 0.4 %THb (0-1.5); Oxygen Content ABG 17.5 %vol (16.0-22.0); Oxygen Saturation ABG 96.6 % (95.0-100.0); Oxyhemoglobin 94.9 % THb (90.0-100.0); PCO2 ABG 39.3 mmHg (35.0-45.0); PO2 ABG 85.4 mmHg (80.0-100.0); PO2 FiO2 Ratio Arterial Blood 4.07 %; Reduced Hemoglobin 4.2 %THb (0-5.0); Total Hemoglobin 13.1 g/dL (12.0-18.0); pH ABG 7.421 (7.350-7.450)
[2020-10-18 14:14] LABS: Device ROOM AIR; Site Drawn LEFT BRACHIAL
[2020-10-18 15:33] LABS: Troponin I < 0.012 ng/mL (0.000-0.034)
--- NOTE | 2020-10-18 15:39 | ED.CHESTPAIN ---
HPI - Chest Pain General Chief Complaint: Chest Pain Stated Complaint: chest pain Time Seen by Provider: 10/18/20 11:59 History of Present Illness HPI narrative: Patient is a 44-year-old female who presents ER with reports of chest pain. Reports it occurred 2030 minutes prior to arrival in the ER while she was coming to the hospital anyways to pecan picker some imaging reports. Pain is in the center of her chest and goes to both of her shoulders. No fevers or sweats or chills. No nausea/vomiting/dyspnea. Patient recently hospitalized and had a negative stress test. Patient has history of noncompliance with medications. Related Data Home Medications Medication Instructions Recorded Confirmed lisinopril 20 mg PO DAILY 06/15/19 09/24/20 albuterol sulfate [ProAir HFA] 2 puff INHALATION Q4H PRN 08/21/19 09/24/20 atorvastatin 20 mg PO DAILY 08/21/19 09/24/20 glipizide 10 mg PO DAILY 08/21/19 09/24/20 omeprazole 20 mg PO DAILY 08/21/19 09/24/20 Januvia 100 mg PO DAILY 09/24/19 09/24/20 gabapentin 800 mg PO QID 02/12/20 09/24/20 glycopyrrolate 1 mg PO DAILY PRN 02/12/20 09/24/20 pioglitazone 30 mg PO DAILY 02/12/20 09/24/20 levetiracetam [Keppra] 500 mg PO BID 02/14/20 09/24/20 Basaglar KwikPen U-100 Insulin 30 unit SUBCUT QPM 09/01/20 09/24/20 metoprolol succinate 50 mg PO DAILY 09/01/20 09/24/20 oxycodone-acetaminophen [Percocet] 1 tablet PO Q6H PRN 09/01/20 09/24/20 Allergies Allergy/AdvReac Type Severity Reaction Status Date / Time lidocaine Allergy Intermediate HIVES Verified 10/18/20 12:30 nitroglycerin Allergy Intermediate HIVES Verified 10/18/20 12:30 aspirin Allergy Mild Hives Verified 10/18/20 12:30 citalopram Allergy Mild Rash Verified 10/18/20 12:30 escitalopram Allergy Mild Hives Verified 10/18/20 12:30 ibuprofen Allergy Mild Hives Verified 10/18/20 12:30 Penicillins Allergy Mild HIVES PER Verified 10/18/20 12:30 UNCODED ALLERGIES 08/27/12 procaine Allergy Mild Hives Verified 10/18/20 12:30 propoxyphene Allergy Mild Hives Verified 10/18/20 12:30 doxycycline Allergy Unknown Hives Verified 10/18/20 12:30 meloxicam Allergy Unknown HIVES Verified 10/18/20 12:30 Sulfa (Sulfonamide Allergy Unknown HIVES PER Verified 10/18/20 12:30 Antibiotics) UNCODED ALLERGIES 08/27/12 sulfamethoxazole Allergy Unknown Hives Verified 10/18/20 12:30 trimethoprim Allergy Unknown Hives Verified 10/18/20 12:30 codeine Allergy Hives Verified 10/18/20 12:30 adhesive AdvReac Unknown SILK TAPE= Verified 10/18/20 12:30 HIVES Review of Systems Review of Systems: All systems reviewed & are unremarkable except as noted in HPI and below Constitutional: Constitutional: Denies chills, Denies fever(s) and Denies weakness ENT: Denies nasal congestion and Denies sore throat Cardiovascular: Cardiovascular: Reports chest pain, Denies rapid heart rate and Reports radiating jaw, neck or arm pain Respiratory: Respiratory: Denies cough and Denies dyspnea Gastrointestinal: Gastrointestinal: Denies abdominal pain, Denies nausea and Denies vomiting PMFSH Past Medical History Medical History (Updated 10/18/20 @ 16:21 by John An MD) Anemia Anxiety Arthritis Asthma Bipolar disorder COPD (chronic obstructive pulmonary disease) Depression Diabetes mellitus DVT (deep venous thrombosis) Eczema Of the scalp Epilepsy Family history of colon cancer in father Foot fracture, right GERD (gastroesophageal reflux disease) Herniated disc HTN (hypertension) Hyperlipidemia MRSA (methicillin resistant staph aureus) culture positive Obesity Pacemaker Peripheral neuropathy Pulmonary embolism Seizures Sleep apnea Suicide attempt Ulcer Uncontrolled diabetes mellitus UTI (urinary tract infection) Surgical History Surgical History History of bilateral knee replacement History of cholecystectomy Family History Family History (Reviewed 09/24/20 @ 22:14 by Jayne Reaves
[2020-10-18 15:42] LABS: Glucose Point of Care 264 (65-105)
== END 2020-10-18 16:38 | disposition home or self-care (01) ==
PROVIDERS: General Practice; Emergency Provider Emergency Medicine; PCP Internal Medicine
DX: R07.9 Chest pain, unspecified (principal); E11.65 Type 2 diabetes mellitus with hyperglycemia; J44.9 Chronic obstructive pulmonary disease, unspecified; G40.909 Epilepsy, unspecified, not intractable, without status epilepticus; K21.9 Gastro-esophageal reflux disease without esophagitis; E78.5 Hyperlipidemia, unspecified; I10 Essential (primary) hypertension; E66.9 Obesity, unspecified; Z68.35 Body mass index [BMI] 35.0-35.9, adult; Z95.0 Presence of cardiac pacemaker; Z86.14 Personal history of Methicillin resistant Staphylococcus aureus infection; Z86.2 Personal history of diseases of the blood and blood-forming organs and certain disorders involving the immune mechanism; Z86.718 Personal history of other venous thrombosis and embolism; Z86.711 Personal history of pulmonary embolism; Z87.440 Personal history of urinary (tract) infections; Z96.653 Presence of artificial knee joint, bilateral; F17.210 Nicotine dependence, cigarettes, uncomplicated; Z79.4 Long term (current) use of insulin
CPT/HCPCS: 36415; 36600; 71046; 80048; 82375; 82805; 82948; 83050; 84484; 85025; 85610; 85730; 93005; 96365; 96375; 99284; J0131; J1815

== ENCOUNTER 2020-11-06 12:06 | Emergency (ER) | payer OTHER, SELFPAY ==
--- NOTE | ~2020-11-06 | US_ITS ---
EXAMINATION: US venous doppler [facility] DATE: 11/06/2020 17:08 INDICATION: Lower limb swelling. TECHNIQUE: Grayscale ultrasound images without and with compression and Doppler ultrasound images of the bilateral lower extremity veins were obtained. COMPARISON: Ultrasound 06/25/2020 FINDINGS: The visualized portions of right common femoral vein, profunda (deep) femoral vein, femoral vein, pop liteal vein, peroneal veins, posterior tibial veins, and greater saphenous vein outflow are patent. The visualized portions of left common femoral vein, profunda femoral vein, femoral vein, popliteal v ein, peroneal veins, posterior tibial veins, and greater saphenous vein outflow are patent. There is a small left Mejia's cyst. IMPRESSION: 1. No deep venous thrombosis. 2. Small left Mejia's cyst. Reviewed, dictated and finalized at location A.
--- NOTE | ~2020-11-06 | XR_ITS ---
EXAMINATION: XR chest 2V 11/06/2020 13:49 INDICATION: Chest and abdomen pain. PROCEDURE: PA and lateral views of the chest COMPARISON: Comparison to multiple prior studies sequentially, with oldest reviewed study dated 06/10. FINDINGS: The lungs are clear. The cardiomediastinal silhouette is within normal limits. There are no pleural effusions. There is no pneumothorax suspected. Pacemaker lead appearance is unchanged. IMPRESSION: 1: NO ACUTE CARDIOPULMONARY DISEASE. Reviewed, dictated and finalized at location B.
--- NOTE | ~2020-11-06 | NM_ITS ---
EXAMINATION: NM pulmonary perfusion DATE: 11/06/2020 19:52 INDICATION: Chest pain. TECHNIQUE: 2.54 mCi Tc-99m MAA was administered intravenously for perfusion images. Scintigraphic im ages of the chest were obtained. COMPARISON: Chest 2 views 11/06/2020 FINDINGS: Perfusion images show no defects. IMPRESSION: 1. Normal pulmonary perfusion. Pulmonary embolism absent. Reviewed, dictated and finalized at location A.
[2020-11-06 13:23] VITALS: BP 149/71; PULSE 82; RESP 18; TEMP 35.7; O2SAT 100
--- NOTE | 2020-11-06 13:29 | ECG_ITS ---
Measurements Intervals [place] Rate: 81 P: 43 OR: 152 QRS: -18 QRSD: 102 T: 37 QT: 380 QTc: 441 Interpretive Statements SINUS RHYTHM BORDERLINE R WAVE PROGRESSION, ANTERIOR LEADS BASELINE ARTIFACT- I, II, III, AVR, AVL, AVF, V1-V6 BORDERLINE ECG Electronically Signed On 11-06-2020 14:02:12 CDT by Kalin Castorena D.O.
--- NOTE | 2020-11-06 13:42 | PC.NURSE ---
Attempt x2 to draw blood unsuccessful.
--- NOTE | 2020-11-06 15:33 | PC.NURSE ---
Ambulatory to exam room accompanied by social worker delinquency prevention.
[2020-11-06 16:01] LABS: Basophils Percent Auto 0.5 % (0.2-1.2); Eosinophils Absolute Auto 0.2 K/mm3 (0-0.3); Eosinophils Percent Auto 2.6 % (0-4.4); Hematocrit 40.5 % (37.0-47.0); Hemoglobin 13.5 g/dL (12.0-15.0); Immature Granulocyte Absolute 0.04 K/mm3 (0.00-0.031); Immature Granulocyte Percent A 0.6 % (0-0.5); Lymphocytes Percent Auto 24.3 % (18.3-44.2); Mean Corpuscular HGB Conc 33.3 g/dl (32-36); Mean Corpuscular Hemoglobin 28.8 pg (26-34); Mean Corpuscular Volume 86.4 fl (80-100); Monocytes Absolute Auto 0.4 K/mm3 (0.1-0.6); Neutrophils Absolute Auto 4.1 K/mm3 (1.3-6.7); Platelet Count Result 270 k/mm3 (150-375); Red Blood Count 4.69 M/mm3 (4.2-5.4); Red Cell Distribution Width 13.2 % (11.5-14.5); White Blood Count 6.2 K/mm3 (4.5-10.0)
--- NOTE | 2020-11-06 16:03 | ED.GENADULT ---
HPI - General Adult General Chief complaint: Unspecified Stated complaint: abd pain/chest/back/leg pain/wants to see social w Time Seen by Provider: 11/06/20 16:01 Source: patient Mode of arrival: ambulatory Limitations: no limitations History of Present Illness HPI narrative: Patient is a 44-year-old female with a history of type 2 diabetes, asthma, hypertension who presents for evaluation of multiple complaints. She was reporting chest pain that began approximately 9:45 AM this morning and has been constant, described as a pressure like sensation in her chest. No radiation to the jaw, arm, shoulder, back or lower flanks. No associated nausea or vomiting. She reports chills without fever. She denies rhinorrhea, or congestion. She does report dry cough. She states this is consistent with her history of asthma. Patient states she is homeless and has not had much food today. She has been without her anticoagulation since September, previously had been on warfarin for history of DVT and PE. Patient states she has been having leg swelling and leg pain. She denies any redness, denies fall or injury. The chest pain is not exacerbated by anything. No current shortness of breath. Related Data Home Medications Medication Instructions Recorded Confirmed lisinopril 20 mg PO DAILY 06/15/19 09/24/20 albuterol sulfate [ProAir HFA] 2 puff INHALATION Q4H PRN 08/21/19 09/24/20 atorvastatin 20 mg PO DAILY 08/21/19 09/24/20 glipizide 10 mg PO DAILY 08/21/19 09/24/20 omeprazole 20 mg PO DAILY 08/21/19 09/24/20 Januvia 100 mg PO DAILY 09/24/19 09/24/20 gabapentin 800 mg PO QID 02/12/20 09/24/20 glycopyrrolate 1 mg PO DAILY PRN 02/12/20 09/24/20 pioglitazone 30 mg PO DAILY 02/12/20 09/24/20 levetiracetam [Keppra] 500 mg PO BID 02/14/20 09/24/20 Basaglar KwikPen U-100 Insulin 30 unit SUBCUT QPM 09/01/20 09/24/20 metoprolol succinate 50 mg PO DAILY 09/01/20 09/24/20 oxycodone-acetaminophen [Percocet] 1 tablet PO Q6H PRN 09/01/20 09/24/20 Allergies Allergy/AdvReac Type Severity Reaction Status Date / Time lidocaine Allergy Intermediate HIVES Verified 11/06/20 17:22 nitroglycerin Allergy Intermediate HIVES Verified 11/06/20 17:22 aspirin Allergy Mild Hives Verified 11/06/20 17:22 citalopram Allergy Mild Rash Verified 11/06/20 17:22 escitalopram Allergy Mild Hives Verified 11/06/20 17:22 ibuprofen Allergy Mild Hives Verified 11/06/20 17:22 Penicillins Allergy Mild HIVES PER Verified 11/06/20 17:22 UNCODED ALLERGIES 08/27/12 procaine Allergy Mild Hives Verified 11/06/20 17:22 propoxyphene Allergy Mild Hives Verified 11/06/20 17:22 doxycycline Allergy Unknown Hives Verified 11/06/20 17:22 meloxicam Allergy Unknown HIVES Verified 11/06/20 17:22 Sulfa (Sulfonamide Allergy Unknown HIVES PER Verified 11/06/20 17:22 Antibiotics) UNCODED ALLERGIES 08/27/12 sulfamethoxazole Allergy Unknown Hives Verified 11/06/20 17:22 trimethoprim Allergy Unknown Hives Verified 11/06/20 17:22 codeine Allergy Hives Verified 11/06/20 17:22 iohexol Allergy Hives Verified 11/06/20 17:29 [From contrast - CT, X-RAY] adhesive AdvReac Unknown SILK TAPE= Verified 11/06/20 17:22 HIVES Review of Systems Review of Systems: Narrative: CONSTITUTIONAL: Denies fever, reports chills EYES: Denies visual changes, redness, or discharge. ENT: Denies rhinorrhea, congestion, sore throat, or otalgia. CARDIOVASCULAR: Reports chest pain without palpitations RESPIRATORY: Reports chronic cough, denies dyspnea GASTROINTESTINAL: Denies abdominal pain, nausea, vomiting, or diarrhea. GENITOURINARY: Reports dysuria SKIN: Reports psoriasis type rash which she has chronically MUSCULOSKELETAL: Denies back pain, joint pain, reports myalgias NEUROLOGIC: Denies headache, numbness, or weakness. [facility] Past Medical History Medical History Anemia Anxiety Arthritis Asthma Bipolar disorder COPD (chronic obstructive
[2020-11-06 16:06] LABS: INR 0.8; Prothrombin Time 11.2 Seconds (11.1-14.7)
[2020-11-06 16:07] LABS: Partial Thromboplastin Time 21.6 SECONDS (22.3-36.8)
--- NOTE | 2020-11-06 16:14 | PCCCNOTE ---
Received call from sugar house supervisor that pt. requested [facility] [employer] while waiting in the ED waiting room. Met with pt. who said she was homeless and needed a place to stay. She is known to Care Coordination and has been homeless for quite sometime. I asked her about her appointment with [facility] for housing that was supposed to be at the beginning of October. She reports that it was rescheduled for tomorrow. Called [facility] and she confirmed her appointment for 1300 on Thursday. She also said she had called the [facility] hotline this morning but had not received a call back. She was wanting to go to the [facility] in [place], but a referral was required from the [facility] Hotline. I called the [facility] and confirmed this. I was able to get a call back from the hotline and pt. spoke with them for referral. She then went through intake with the [facility]. They told her that she would need 30 days of medication and would have to be there by 1400 (this was around 1530). I called back to [facility] and they made a referral for the [facility]. I called and left message at the [facility] but did not receive a call back. I called [facility] for availability at the Crisis Unit, but they are full with a waiting list. I called [facility] in [facility] and they did not have any resources to assist pt. at this time, but did suggest the [facility] at [facility] in [place]. Pt. was given this information. A cab voucher has also been given to pt.'s nurse, in the event that she chooses to go there [place]. Pt. is aware that she will need to call back to the hotline tomorrow after her appointment at [facility] for a new referral for the [facility].
[2020-11-06 16:20] LABS: Anion Gap 4 mmol/L (8-16); Blood Urea Nitrogen 14 mg/dL (7-17); Calcium 8.9 mg/dL (8.4-10.2); Carbon Dioxide 31 mmol/L (22-30); Chloride 101 mmol/L (98-107); Estimated Glomerular Filt Rate > 60; Glucose 520 mg/dL (65-105); Lipase 168 U/L (23-300); Potassium 3.7 mmol/L (3.4-5.0); Sodium 136 mmol/L (137-145)
[2020-11-06 16:28] LABS: Troponin I < 0.012 ng/mL (0.000-0.034)
[2020-11-06 16:59] LABS: D Dimer 0.86 ug/mL (<0.48)
[2020-11-06] MEDS: SODIUM CHLORIDE 0.9% IV 1,000 ML 999 ML IV CONT (17:11)
[2020-11-06] MEDS: INSULIN HUMAN REGULAR (*BKC) 100 UNITS/ML 7 UNITS SUB-Q (17:12)
[2020-11-06 17:20] VITALS: PULSE 84
[2020-11-06 17:23] LABS: Creatine Kinase 53 U/L (30-135)
[2020-11-06 17:47] VITALS: BP 152/86; PULSE 86; RESP 16; O2SAT 97
[2020-11-06 18:12] LABS: Glucose 526 mg/dL (65-105)
[2020-11-06 18:34] LABS: Glucose Point of Care 295 (65-105)
[2020-11-06 19:59] LABS: Troponin I < 0.012 ng/mL (0.000-0.034)
== END 2020-11-06 21:11 | disposition home or self-care (01) ==
PROVIDERS: Emergency Medicine; Emergency Provider Emergency Medicine; PCP Internal Medicine
DX: R07.89 Other chest pain (principal); M79.10 Myalgia, unspecified site; E11.65 Type 2 diabetes mellitus with hyperglycemia; I10 Essential (primary) hypertension; J44.9 Chronic obstructive pulmonary disease, unspecified; M19.90 Unspecified osteoarthritis, unspecified site; G40.909 Epilepsy, unspecified, not intractable, without status epilepticus; E78.5 Hyperlipidemia, unspecified; E11.42 Type 2 diabetes mellitus with diabetic polyneuropathy; K21.9 Gastro-esophageal reflux disease without esophagitis; Z86.14 Personal history of Methicillin resistant Staphylococcus aureus infection; Z87.440 Personal history of urinary (tract) infections; Z86.718 Personal history of other venous thrombosis and embolism; Z86.711 Personal history of pulmonary embolism; Z95.0 Presence of cardiac pacemaker; Z86.2 Personal history of diseases of the blood and blood-forming organs and certain disorders involving the immune mechanism; Z79.4 Long term (current) use of insulin; G47.30 Sleep apnea, unspecified; Z96.653 Presence of artificial knee joint, bilateral; F17.210 Nicotine dependence, cigarettes, uncomplicated
CPT/HCPCS: 36415; 71046; 78580; 80048; 81025; 82550; 82947; 82948; 83690; 84484; 85025; 85380; 85610; 85730; 93005; 93970; 96360; 99284; A9540; J1815; J7030

== ENCOUNTER 2020-11-21 17:49 | Emergency (ER) | payer OTHER, SELFPAY ==
--- NOTE | ~2020-11-21 | XR_ITS ---
XR chest 2V DATE: 11/21/2020 18:48 INDICATION: Left-sided chest pain, left facial swelling TECHNIQUE: AP and lateral views COMPARISON: 11/06/2020 2 view chest 11/06/2020 pulmonary perfusion scan FINDINGS: Left-sided pacemaker with leads overlying right atrium and right ventricle. There is suboptimal expansion of the lungs with likely associated atelectasis at the lung bases. Othe rwise no pulmonary consolidation, pleural effusion, pulmonary vascular congestion or pneumothorax is evident. IMPRESSION: Suboptimal expansion of lungs; no significant abnormality or change otherwise since 2020 Reviewed, dictated and finalized at location A. IMPRESSION: Suboptimal expansion of lungs; no significant abnormality or change otherwise since 11/06/2020
--- NOTE | 2020-11-21 17:51 | ECG_ITS ---
Measurements Intervals [place] Rate: 93 P: 47 OR: 151 QRS: -3 QRSD: 88 T: 30 QT: 362 QTc: 451 Interpretive Statements SINUS RHYTHM BORDERLINE R WAVE PROGRESSION, ANTERIOR LEADS BORDERLINE ECG Electronically Signed On 11-21-2020 20:00:19 CDT by Kalin Castorena D.O.
[2020-11-21 17:52] VITALS: BP 149/82; PULSE 93; RESP 16; TEMP 36.3; O2SAT 100
--- NOTE | 2020-11-21 18:08 | PC.NURSE ---
Unable to get blood after attempts. Pt will only allow nurse to look in certain areas.
[2020-11-21 20:02] VITALS: BP 101/86; PULSE 96; RESP 18; TEMP 36.9; O2SAT 100; O2SAT 98
--- NOTE | 2020-11-21 20:07 | PC.NURSE ---
Pt presents to ED with complaints of right chest pain that radiates across and down left arm. Pt also complains of left jaw pain. Pt states both onset approx 4 days ago. Pt rates pain to chest and jaw 10/10 and states she tx with 800mg ibuprofen at 1400 with no relief. Pt states chest pain can not be reproduced. Left jaw pain with eating and drinking cold items. Pt noted with multiple dental caries. Vitals are stable and pt in no obvious distress. Pt alert and oriented x4. Breathing even and unlabored. Pt resting with call button and personal items within reach. Pt advised to press call button for assistance.
--- NOTE | 2020-11-21 20:18 | PC.NURSE ---
Pt refuses to take Aspirin and states that she has an allergy that results in hives and itching.
--- NOTE | 2020-11-21 21:19 | ED.CHESTPAIN ---
HPI - Chest Pain General Chief Complaint: Chest Pain Stated Complaint: chest pain, facial pain Time Seen by Provider: 11/21/20 17:53 History of Present Illness HPI narrative: Patient is a 44-year-old female who presents ER for multiple issues. She reports treatments prior to arrival in the ER by ambulance which was over 3 hours ago. Pain is central nonradiating. No aggravating or alleviating factors. It has come down on its own. Patient also reports left side face shoulder pain that she thinks is related to infected tooth. She has pain with eating and drinking. No swelling. No drainage. Denies fevers or chills or sweats. Patient is well-known to [facility]. Related Data Home Medications Medication Instructions Recorded Confirmed lisinopril 20 mg PO DAILY 06/15/19 09/24/20 albuterol sulfate [ProAir HFA] 2 puff INHALATION Q4H PRN 08/21/19 09/24/20 atorvastatin 20 mg PO DAILY 08/21/19 09/24/20 glipizide 10 mg PO DAILY 08/21/19 09/24/20 omeprazole 20 mg PO DAILY 08/21/19 09/24/20 Januvia 100 mg PO DAILY 09/24/19 09/24/20 gabapentin 800 mg PO QID 02/12/20 09/24/20 glycopyrrolate 1 mg PO DAILY PRN 02/12/20 09/24/20 pioglitazone 30 mg PO DAILY 02/12/20 09/24/20 levetiracetam [Keppra] 500 mg PO BID 02/14/20 09/24/20 Basaglar ReynaldoPen U-100 Insulin 30 unit SUBCUT QPM 09/01/20 09/24/20 metoprolol succinate 50 mg PO DAILY 09/01/20 09/24/20 oxycodone-acetaminophen [Percocet] 1 tablet PO Q6H PRN 09/01/20 09/24/20 Allergies Allergy/AdvReac Type Severity Reaction Status Date / Time lidocaine Allergy Intermediate HIVES Verified 11/06/20 17:22 nitroglycerin Allergy Intermediate HIVES Verified 11/06/20 17:22 aspirin Allergy Mild Hives Verified 11/06/20 17:22 citalopram Allergy Mild Rash Verified 11/06/20 17:22 escitalopram Allergy Mild Hives Verified 11/06/20 17:22 ibuprofen Allergy Mild Hives Verified 11/06/20 17:22 Penicillins Allergy Mild HIVES PER Verified 11/06/20 17:22 UNCODED ALLERGIES 08/27/12 procaine Allergy Mild Hives Verified 11/06/20 17:22 propoxyphene Allergy Mild Hives Verified 11/06/20 17:22 doxycycline Allergy Unknown Hives Verified 11/06/20 17:22 meloxicam Allergy Unknown HIVES Verified 11/06/20 17:22 Sulfa (Sulfonamide Allergy Unknown HIVES PER Verified 11/06/20 17:22 Antibiotics) UNCODED ALLERGIES 08/27/12 sulfamethoxazole Allergy Unknown Hives Verified 11/06/20 17:22 trimethoprim Allergy Unknown Hives Verified 11/06/20 17:22 codeine Allergy Hives Verified 11/06/20 17:22 iohexol Allergy Hives Verified 11/06/20 17:29 [From contrast - CT, X-RAY] adhesive AdvReac Unknown SILK TAPE= Verified 11/06/20 17:22 HIVES Review of Systems Review of Systems: All systems reviewed & are unremarkable except as noted in HPI and below Constitutional: Constitutional: Denies chills, Denies fever(s) and Denies weakness ENT: Comments: Dental pain Cardiovascular: Cardiovascular: Reports chest pain, Denies rapid heart rate and Denies radiating jaw, neck or arm pain Respiratory: Respiratory: Denies cough, Denies dyspnea and Denies wheezing PMFSH Past Medical History Medical History Anemia Anxiety Arthritis Asthma Bipolar disorder COPD (chronic obstructive pulmonary disease) Depression Diabetes mellitus DVT (deep venous thrombosis) Eczema Of the scalp Epilepsy Family history of colon cancer in father Foot fracture, right GERD (gastroesophageal reflux disease) Herniated disc HTN (hypertension) Hyperlipidemia MRSA (methicillin resistant staph aureus) culture positive Obesity Pacemaker Peripheral neuropathy Pulmonary embolism Seizures Sleep apnea Suicide attempt Ulcer Uncontrolled diabetes mellitus UTI (urinary tract infection) Surgical History Surgical History History of bilateral knee replacement History of cholecystectomy Family History Family History (Reviewed
[2020-11-21 21:33] LABS: Basophils Percent Auto 0.6 % (0.2-1.2); Eosinophils Absolute Auto 0.2 K/mm3 (0-0.3); Hematocrit 38.7 % (37.0-47.0); Hemoglobin 12.8 g/dL (12.0-15.0); Immature Granulocyte Absolute 0.04 K/mm3 (0.00-0.031); Immature Granulocyte Percent A 0.6 % (0-0.5); Lymphocytes Absolute Auto 1.89 K/mm3 (0.9-3.2); Lymphocytes Percent Auto 26.9 % (18.3-44.2); Mean Corpuscular HGB Conc 33.1 g/dl (32-36); Mean Corpuscular Hemoglobin 28.6 pg (26-34); Mean Corpuscular Volume 86.4 fl (80-100); Mean Platelet Volume 10.3 fl (7.4-10.4); Monocytes Absolute Auto 0.6 K/mm3 (0.1-0.6); Monocytes Percent Auto 7.8 % (2.6-8.5); Neutrophils Absolute Auto 4.3 K/mm3 (1.3-6.7); Neutrophils Percent Auto 61.1 % (45.5-73.1); Platelet Count Result 219 k/mm3 (150-375); Red Blood Count 4.48 M/mm3 (4.2-5.4); Red Cell Distribution Width 13.3 % (11.5-14.5)
[2020-11-21 21:41] LABS: INR 0.8; Prothrombin Time 11.7 Seconds (11.1-14.7)
[2020-11-21 21:43] LABS: Anion Gap 2 mmol/L (8-16); Blood Urea Nitrogen 22 mg/dL (7-17); Carbon Dioxide 31 mmol/L (22-30); Chloride 99 mmol/L (98-107); Estimated Glomerular Filt Rate > 60; Glucose 408 mg/dL (65-105); Potassium 4.9 mmol/L (3.4-5.0); Sodium 132 mmol/L (137-145)
[2020-11-21 21:44] VITALS: BP 121/64; PULSE 83; RESP 18; O2SAT 98
[2020-11-21] MEDS: HYDROcodone/acetaminophen (*CRX) 5-325 MG TABLET 1 TAB PO (21:45)
[2020-11-21] MEDS: CLINDAMYCIN HCL 150 MG CAP 300 MG PO (21:46)
[2020-11-21 21:56] LABS: Troponin I < 0.012 ng/mL (0.000-0.034)
== END 2020-11-21 22:31 | disposition home or self-care (01) ==
PROVIDERS: Emergency Provider Emergency Medicine; PCP Internal Medicine
DX: R07.9 Chest pain, unspecified (principal); K08.89 Other specified disorders of teeth and supporting structures; J44.9 Chronic obstructive pulmonary disease, unspecified; E11.42 Type 2 diabetes mellitus with diabetic polyneuropathy; G40.909 Epilepsy, unspecified, not intractable, without status epilepticus; I10 Essential (primary) hypertension; E78.5 Hyperlipidemia, unspecified; K21.9 Gastro-esophageal reflux disease without esophagitis; F31.9 Bipolar disorder, unspecified; F41.9 Anxiety disorder, unspecified; Z86.14 Personal history of Methicillin resistant Staphylococcus aureus infection; Z86.718 Personal history of other venous thrombosis and embolism; Z86.711 Personal history of pulmonary embolism; Z87.440 Personal history of urinary (tract) infections; G47.30 Sleep apnea, unspecified; E66.9 Obesity, unspecified; Z68.35 Body mass index [BMI] 35.0-35.9, adult; Z79.4 Long term (current) use of insulin
CPT/HCPCS: 36415; 71046; 80048; 84484; 85025; 85610; 85730; 93005; 99284; A9270

== ENCOUNTER 2021-01-07 19:13 | Emergency (ER) | payer OTHER, SELFPAY ==
[2021-01-07] VITALS (11 sets, daily range): BP systolic 110–141; BP diastolic 60–83; PULSE 87–97; RESP 14–20; TEMP 36.7; O2SAT 95–100
--- NOTE | ~2021-01-07 | XR_ITS ---
XR chest 2V 01/07/2021 20:19 Indication: Right-sided chest pain. History of CHF and asthma. Procedure: AP and lateral views of the chest Comparison: Comparison to multiple prior studies sequentially, with oldest reviewed study dated 09/24. Findings: Right basilar airspace disease. Pacemaker leads are stable. Stable cardiomediastinal silhou ette. No significant effusion or pneumothorax. Impression: 1: Right basilar airspace disease, consistent with pneumonia. Reviewed, dictated and finalized at location A. Impression: 1: Right basilar airspace disease, consistent with pneumonia.
--- NOTE | 2021-01-07 19:45 | ECG_ITS ---
Measurements Intervals [place] Rate: 93 P: 49 MT: 151 QRS: 12 QRSD: 92 T: 3 QT: 380 QTc: 474 Interpretive Statements SINUS RHYTHM BORDERLINE ST-T WAVE ABNORMALITY- INFERIOR LEADS BASELINE ARTIFACT- I, III, AVR, AVL, AVF BORDERLINE ECG Electronically Signed On 01-10-2021 15:50:55 CDT by Kalin Castorena D.O.
[2021-01-07 19:53] LABS: Basophils Percent Auto 0.4 % (0.2-1.2); Eosinophils Absolute Auto 0.2 K/mm3 (0-0.3); Eosinophils Percent Auto 3.2 % (0-4.4); Hematocrit 37.5 % (37.0-47.0); Hemoglobin 12.2 g/dL (12.0-15.0); Immature Granulocyte Absolute 0.02 K/mm3 (0.00-0.031); Immature Granulocyte Percent A 0.3 % (0-0.5); Lymphocytes Absolute Auto 1.51 K/mm3 (0.9-3.2); Lymphocytes Percent Auto 21.7 % (18.3-44.2); Mean Corpuscular HGB Conc 32.5 g/dl (32-36); Mean Corpuscular Hemoglobin 28.8 pg (26-34); Mean Corpuscular Volume 88.4 fl (80-100); Monocytes Absolute Auto 0.5 K/mm3 (0.1-0.6); Monocytes Percent Auto 7.5 % (2.6-8.5); Neutrophils Absolute Auto 4.7 K/mm3 (1.3-6.7); Neutrophils Percent Auto 66.9 % (45.5-73.1); Platelet Count Result 276 k/mm3 (150-375); Red Blood Count 4.24 M/mm3 (4.2-5.4); Red Cell Distribution Width 13.5 % (11.5-14.5)
[2021-01-07 20:03] LABS: INR 0.9; Prothrombin Time 12.2 Seconds (11.1-14.7)
[2021-01-07 20:05] LABS: Partial Thromboplastin Time 22.7 SECONDS (22.3-36.8)
[2021-01-07 20:15] LABS: Anion Gap 10 mmol/L (8-16); Blood Urea Nitrogen 11 mg/dL (7-17); Calcium 9.7 mg/dL (8.4-10.2); Carbon Dioxide 26 mmol/L (22-30); Chloride 100 mmol/L (98-107); Estimated Glomerular Filt Rate > 60; Potassium 3.9 mmol/L (3.4-5.0); Sodium 136 mmol/L (137-145); Troponin I < 0.012 ng/mL (0.000-0.034)
[2021-01-07 20:25] LABS: Glucose 630 mg/dL (65-105)
[2021-01-07] MEDS: INSULIN HUMAN REGULAR (*BKC) 100 UNITS/ML 10 UNITS IV PUSH (20:40)
[2021-01-07 20:52] LABS: Glucose Point of Care 493 mg/dl (65-105)
[2021-01-07 21:29] LABS: Glucose Point of Care 372 mg/dl (65-105)
--- NOTE | 2021-01-07 22:46 | PC.NURSE ---
2 unsuccessful attempts to collect blood sample at this time. Will get another RN to attempt.
--- NOTE | 2021-01-07 22:52 | PC.NURSE ---
TYRELL Del Angel to attempt collecting troponin level at this time.
--- NOTE | 2021-01-07 22:57 | ED.GENADULT ---
HPI - General Adult General Chief complaint: Chest Pain Stated complaint: CP X 30 MINUTES MEDIAL AND RADIATES LEFT ARM Time Seen by Provider: 01/07/21 19:26 History of Present Illness HPI narrative: Patient is a 45-year-old female who presents ER by EMS with reports of chest pain. For me she reports no chest pain reports she has had a cough for over a week that is productive of green sputum and she is concerned she has pneumonia. No fevers or chills or sweats. No exertional dyspnea. She reports that her blood sugar is high but she did take her insulin earlier in the day. No additional complaints at this time. Related Data Home Medications Medication Instructions Recorded Confirmed lisinopril 20 mg PO DAILY 06/15/19 09/24/20 albuterol sulfate [ProAir HFA] 2 puff INHALATION Q4H PRN 08/21/19 09/24/20 atorvastatin 20 mg PO DAILY 08/21/19 09/24/20 glipizide 10 mg PO DAILY 08/21/19 09/24/20 omeprazole 20 mg PO DAILY 08/21/19 09/24/20 Januvia 100 mg PO DAILY 09/24/19 09/24/20 gabapentin 800 mg PO QID 02/12/20 09/24/20 glycopyrrolate 1 mg PO DAILY PRN 02/12/20 09/24/20 pioglitazone 30 mg PO DAILY 02/12/20 09/24/20 levetiracetam [Keppra] 500 mg PO BID 02/14/20 09/24/20 Basaglar KwikPen U-100 Insulin 30 unit SUBCUT QPM 09/01/20 09/24/20 metoprolol succinate 50 mg PO DAILY 09/01/20 09/24/20 oxycodone-acetaminophen [Percocet] 1 tablet PO Q6H PRN 09/01/20 09/24/20 Allergies Allergy/AdvReac Type Severity Reaction Status Date / Time lidocaine Allergy Intermediate HIVES Verified 11/06/20 17:22 nitroglycerin Allergy Intermediate HIVES Verified 11/06/20 17:22 aspirin Allergy Mild Hives Verified 11/06/20 17:22 citalopram Allergy Mild Rash Verified 11/06/20 17:22 escitalopram Allergy Mild Hives Verified 11/06/20 17:22 ibuprofen Allergy Mild Hives Verified 11/06/20 17:22 Penicillins Allergy Mild HIVES PER Verified 11/06/20 17:22 UNCODED ALLERGIES 08/27/12 procaine Allergy Mild Hives Verified 11/06/20 17:22 propoxyphene Allergy Mild Hives Verified 11/06/20 17:22 doxycycline Allergy Unknown Hives Verified 11/06/20 17:22 meloxicam Allergy Unknown HIVES Verified 11/06/20 17:22 Sulfa (Sulfonamide Allergy Unknown HIVES PER Verified 11/06/20 17:22 Antibiotics) UNCODED ALLERGIES 08/27/12 sulfamethoxazole Allergy Unknown Hives Verified 11/06/20 17:22 trimethoprim Allergy Unknown Hives Verified 11/06/20 17:22 codeine Allergy Hives Verified 11/06/20 17:22 iohexol Allergy Hives Verified 11/06/20 17:29 [From contrast - CT, X-RAY] adhesive AdvReac Unknown SILK TAPE= Verified 11/06/20 17:22 HIVES Review of Systems Review of Systems: All systems reviewed & are unremarkable except as noted in HPI and below Constitutional: Constitutional: Denies chills, Denies fever(s) and Denies weakness ENT: Denies nasal congestion and Denies sore throat Cardiovascular: Cardiovascular: Denies chest pain and Denies radiating jaw, neck or arm pain Respiratory: Respiratory: Reports chest congestion, Reports cough, Denies dyspnea and Denies wheezing Gastrointestinal: Gastrointestinal: Denies abdominal pain, Denies nausea and Denies vomiting PMFSH Past Medical History Medical History Anemia Anxiety Arthritis Asthma Bipolar disorder COPD (chronic obstructive pulmonary disease) Depression Diabetes mellitus DVT (deep venous thrombosis) Eczema Of the scalp Epilepsy Family history of colon cancer in father Foot fracture, right GERD (gastroesophageal reflux disease) Herniated disc HTN (hypertension) Hyperlipidemia MRSA (methicillin resistant staph aureus) culture positive Obesity Pacemaker Peripheral neuropathy Pulmonary embolism Seizures Sleep apnea Suicide attempt Ulcer Uncontrolled diabetes mellitus UTI (urinary tract infection) Surgical History Surgical History History of bilateral knee replacement History of cho
[2021-01-07 23:29] LABS: Troponin I < 0.012 ng/mL (0.000-0.034)
[2021-01-08 06:03] LABS: Glucose Point of Care 248 mg/dl (65-105)
== END 2021-01-07 23:59 | disposition home or self-care (01) ==
PROVIDERS: Emergency Provider Emergency Medicine; PCP Internal Medicine
DX: J18.9 Pneumonia, unspecified organism (principal); J44.9 Chronic obstructive pulmonary disease, unspecified; G40.909 Epilepsy, unspecified, not intractable, without status epilepticus; E11.42 Type 2 diabetes mellitus with diabetic polyneuropathy; I10 Essential (primary) hypertension; E78.5 Hyperlipidemia, unspecified; G47.30 Sleep apnea, unspecified; K21.9 Gastro-esophageal reflux disease without esophagitis; F17.210 Nicotine dependence, cigarettes, uncomplicated; Z95.0 Presence of cardiac pacemaker; Z86.2 Personal history of diseases of the blood and blood-forming organs and certain disorders involving the immune mechanism; Z86.718 Personal history of other venous thrombosis and embolism; Z79.84 Long term (current) use of oral hypoglycemic drugs; Z86.14 Personal history of Methicillin resistant Staphylococcus aureus infection; Z79.899 Other long term (current) drug therapy; Z87.440 Personal history of urinary (tract) infections; R94.31 Abnormal electrocardiogram [ECG] [EKG]
CPT/HCPCS: 36415; 71046; 80048; 82948; 84484; 85025; 85610; 85730; 93005; 96374; 99284; J1815

== ENCOUNTER 2021-03-11 17:31 | Emergency (ER) | payer OTHER, SELFPAY ==
--- NOTE | ~2021-03-11 | XR_ITS ---
EXAMINATION: XR chest 2V DATE: 03/11/2021 18:20 INDICATION: Upper chest pain. TECHNIQUE: Frontal and lateral views of the chest were obtained. COMPARISON: Chest 2 views 01/07/2021 FINDINGS: The chest demonstrates clear lungs without pneumonia, pleural effusion, or pneumothorax. Th e heart size is normal. There is a left chest wall pacer with leads in the right atrium and right rachel tricle. Surgical clips in the right upper quadrant are likely from cholecystectomy. IMPRESSION: 1. No acute cardiopulmonary disease. Reviewed, dictated and finalized at location A.
[2021-03-11 17:52] VITALS: BP 130/66; PULSE 93; RESP 14; TEMP 36.6; O2SAT 99
--- NOTE | 2021-03-11 17:54 | ECG_ITS ---
Measurements Intervals [place] Rate: 90 P: 47 OR: 155 QRS: 0 QRSD: 85 T: 12 QT: 349 QTc: 428 Interpretive Statements SINUS RHYTHM BORDERLINE R WAVE PROGRESSION, ANTERIOR LEADS BORDERLINE T WAVE ABNORMALITY- INFERIOR LEADS BASELINE ARTIFACT- I, III, AVR, AVL, AVF BORDERLINE ECG Electronically Signed On 03-11-2021 21:08:33 CDT by Kalin Castorena D.O.
[2021-03-11 19:59] VITALS: BP 145/49; PULSE 87
[2021-03-11 20:01] VITALS: BP 131/67; PULSE 83; RESP 11
[2021-03-11 20:05] VITALS: BP 131/67; PULSE 81; PULSE 87; RESP 12; TEMP 36.8; O2SAT 99
--- NOTE | 2021-03-11 20:10 | PC.NURSE ---
Sitter not required
[2021-03-11 20:34] LABS: Basophils Percent Auto 0.4 % (0.2-1.2); Eosinophils Absolute Auto 0.1 K/mm3 (0-0.3); Eosinophils Percent Auto 1.8 % (0-4.4); Hematocrit 41.9 % (37.0-47.0); Hemoglobin 13.7 g/dL (12.0-15.0); Immature Granulocyte Absolute 0.02 K/mm3 (0.00-0.031); Immature Granulocyte Percent A 0.4 % (0-0.5); Lymphocytes Absolute Auto 1.29 K/mm3 (0.9-3.2); Lymphocytes Percent Auto 22.9 % (18.3-44.2); Mean Corpuscular HGB Conc 32.7 g/dl (32-36); Mean Corpuscular Volume 85.7 fl (80-100); Monocytes Absolute Auto 0.4 K/mm3 (0.1-0.6); Monocytes Percent Auto 6.9 % (2.6-8.5); Neutrophils Absolute Auto 3.8 K/mm3 (1.3-6.7); Neutrophils Percent Auto 67.6 % (45.5-73.1); Platelet Count Result 210 k/mm3 (150-375); Red Blood Count 4.89 M/mm3 (4.2-5.4); Red Cell Distribution Width 12.9 % (11.5-14.5); White Blood Count 5.6 K/mm3 (4.5-10.0)
[2021-03-11 20:42] LABS: INR 0.8; Prothrombin Time 10.9 Seconds (11.1-14.7)
[2021-03-11 20:43] LABS: Partial Thromboplastin Time 20.5 SECONDS (22.3-36.8)
[2021-03-11 20:54] LABS: Anion Gap 8 mmol/L (8-16); Blood Urea Nitrogen 19 mg/dL (7-17); Calcium 8.8 mg/dL (8.4-10.2); Carbon Dioxide 23 mmol/L (22-30); Chloride 103 mmol/L (98-107); Estimated Glomerular Filt Rate > 60; Glucose 549 mg/dL (65-110); Potassium 4.3 mmol/L (3.4-5.0); Sodium 134 mmol/L (137-145)
[2021-03-11 20:57] LABS: Troponin I < 0.012 ng/mL (0.000-0.034)
[2021-03-11] MEDS: SODIUM CHLORIDE 0.9% IV 1,000 ML 999 ML IV CONT (21:37)
[2021-03-11 22:52] LABS: Add Urine Microscopic? YES; Appearance Urine Clear (Clear); Bilirubin Urine Negative (Negative); Blood Urine 1+ (Negative); Color Urine Straw (Yellow); Glucose Urine UA 3+ mg/dL (Negative); Ketones Urine Trace mg/dL (Negative); Leukocyte Esterase Ur 1+ LEU/UL (Negative); Mucus Urine Rare /lpf; Nitrate Urine Negative (Negative); Protein Urine 1+ mg/dL (Negative); RBC Urine 0-2 /hpf (0-2); Squamous Epithelial Cell Urine Rare /hpf (Few); Urobilinogen Urine Negative mg/dL (<2.0); WBC Urine 0-3 /hpf
[2021-03-11 22:53] LABS: Specific Grav Ur 1.031 (1.001-1.035)
[2021-03-11 23:12] LABS: Amphetamine Screen Urine Negative (Negative); Barbiturate Screen Urine Negative (Negative); Benzodiazepines Screen Urine Negative (Negative); Cannabinoid Screen Urine Negative (Negative); Cocaine Screen Urine Positive (Negative); Methadone Screen Urine Negative (Negative); Opiate Screen Urine Negative (Negative); Phencyclidine Screen Urine Negative (Negative)
[2021-03-11 23:12] LABS: Troponin I < 0.012 ng/mL (0.000-0.034)
[2021-03-11 23:14] VITALS: BP 137/83; PULSE 82; RESP 14; O2SAT 99
[2021-03-11 23:18] LABS: Ethanol < 10 mg/dL (<10)
--- NOTE | 2021-03-11 23:20 | PC.NURSE ---
Pt had bowel movement, enema no longer needed.
--- NOTE | 2021-03-11 23:31 | ED.GENADULT ---
HPI - General Adult General Chief complaint: Unspecified Stated complaint: constipated, posssible syncopal Time Seen by Provider: 03/11/21 21:17 History of Present Illness HPI narrative: Patient is a 45-year-old female who presents the emergency department with chief complaint of constipation. The patient states that she has been constipated and has not had a bowel movements over several days she was to have trying to have a bowel movement this evening and was straining forcefully and noticed that she then started having chest discomfort whenever she was straining hard. The patient states that she is also been feeling lightheaded at times and reports that she is also been depressed and has intermittent thoughts of harming herself the patient does not have an actual plan patient also reports that she has been extremely hungry and is requesting food. Related Data Home Medications Medication Instructions Recorded Confirmed lisinopril 20 mg PO DAILY 06/15/19 09/24/20 albuterol sulfate [ProAir HFA] 2 puff INHALATION Q4H PRN 08/21/19 09/24/20 atorvastatin 20 mg PO DAILY 08/21/19 09/24/20 glipizide 10 mg PO DAILY 08/21/19 09/24/20 omeprazole 20 mg PO DAILY 08/21/19 09/24/20 Januvia 100 mg PO DAILY 09/24/19 09/24/20 gabapentin 800 mg PO QID 02/12/20 09/24/20 glycopyrrolate 1 mg PO DAILY PRN 02/12/20 09/24/20 pioglitazone 30 mg PO DAILY 02/12/20 09/24/20 levetiracetam [Keppra] 500 mg PO BID 02/14/20 09/24/20 Basaglar KwikPen U-100 Insulin 30 unit SUBCUT QPM 09/01/20 09/24/20 metoprolol succinate 50 mg PO DAILY 09/01/20 09/24/20 oxycodone-acetaminophen [Percocet] 1 tablet PO Q6H PRN 09/01/20 09/24/20 Allergies Allergy/AdvReac Type Severity Reaction Status Date / Time lidocaine Allergy Intermediate HIVES Verified 03/11/21 20:13 nitroglycerin Allergy Intermediate HIVES Verified 03/11/21 20:13 aspirin Allergy Mild Hives Verified 03/11/21 20:13 citalopram Allergy Mild Rash Verified 03/11/21 20:13 escitalopram Allergy Mild Hives Verified 03/11/21 20:13 ibuprofen Allergy Mild Hives Verified 03/11/21 20:13 Penicillins Allergy Mild HIVES PER Verified 03/11/21 20:13 UNCODED ALLERGIES 08/27/12 procaine Allergy Mild Hives Verified 03/11/21 20:13 propoxyphene Allergy Mild Hives Verified 03/11/21 20:13 doxycycline Allergy Unknown Hives Verified 03/11/21 20:13 meloxicam Allergy Unknown HIVES Verified 03/11/21 20:13 Sulfa (Sulfonamide Allergy Unknown HIVES PER Verified 03/11/21 20:13 Antibiotics) UNCODED ALLERGIES 08/27/12 sulfamethoxazole Allergy Unknown Hives Verified 03/11/21 20:13 trimethoprim Allergy Unknown Hives Verified 03/11/21 20:13 codeine Allergy Hives Verified 03/11/21 20:13 iohexol Allergy Hives Verified 03/11/21 20:13 [From contrast - CT, X-RAY] adhesive AdvReac Unknown SILK TAPE= Verified 03/11/21 20:13 HIVES Review of Systems Review of Systems: A 10 system review of systems was completed on the patient and is negative except for what is stated in the HPI. Nursing and ancillary documentation was reviewed. [facility] Past Medical History Medical History Anemia Anxiety Arthritis Asthma Bipolar disorder COPD (chronic obstructive pulmonary disease) Depression Diabetes mellitus DVT (deep venous thrombosis) Eczema Of the scalp Epilepsy Family history of colon cancer in father Foot fracture, right GERD (gastroesophageal reflux disease) Herniated disc HTN (hypertension) Hyperlipidemia MRSA (methicillin resistant staph aureus) culture positive Obesity Pacemaker Peripheral neuropathy Pulmonary embolism Seizures Sleep apnea Suicide attempt Ulcer Uncontrolled diabetes mellitus UTI (urinary tract infection) Surgical History Surgical History History of bilateral knee replacement History of cholecystectomy Family History Family History (Reviewed 03/12/21 @ 02:28 by
[2021-03-11 23:46] VITALS: BP 144/77; PULSE 87; RESP 22
[2021-03-11 23:47] LABS: Acetaminophen < 10 ug/mL (10-30); Salicylate < 1.0 mg/dL (2-20)
[2021-03-12] LABS: Glucose Point of Care 372 mg/dl (65-105)
[2021-03-12 00:01] VITALS: BP 129/83; PULSE 109; RESP 29
--- NOTE | 2021-03-12 00:24 | PC.NURSE ---
Crisis to room at this time.
[2021-03-12 00:31] VITALS: BP 138/69; PULSE 86; RESP 19
[2021-03-12 00:46] VITALS: BP 138/72; PULSE 83; RESP 17
[2021-03-12 01:53] LABS: Troponin I < 0.012 ng/mL (0.000-0.034)
[2021-03-12 02:01] VITALS: BP 149/84; PULSE 82; RESP 17
--- NOTE | 2021-03-12 02:22 | PC.NURSE ---
Touche requesting more information from pt chart at this time. Info to be faxed over.
[2021-03-12 03:05] VITALS: BP 143/78; PULSE 77; RESP 12; O2SAT 98
--- NOTE | 2021-03-12 03:46 | PC.NURSE ---
Call from [facility]ady at [phone]. Accepting physician Dr. Torres, nurse to call ED for report shortly.
[2021-03-12 04:45] VITALS: BP 137/82; PULSE 76; RESP 13; O2SAT 99
--- NOTE | 2021-03-12 05:12 | PC.NURSE ---
Spoke with Giselle at [phone] for report. Giselle is having charge nurse give us a call due to COVID swab. Will be receiving phone call shortly.
--- NOTE | 2021-03-12 05:18 | PC.NURSE ---
IV removed at this time. Cannula intact, covered in gauze and tape.
--- NOTE | 2021-03-12 05:19 | PC.NURSE ---
Giselle Shrestha called, rapid COVID swab ordered at this time.
--- NOTE | 2021-03-12 05:57 | PC.NURSE ---
Final report given to Giselle at [facility] at [phone]. COVID results faxed to facility.
--- NOTE | 2021-03-12 06:04 | PC.NURSE ---
Called [facility] to transport patient to [facility] (trip #[id number])...ETA approximately [phone]
--- NOTE | 2021-03-12 06:12 | PC.NURSE ---
Belongings do not need to be removed at this time due to current [place] scoring guidelines.
== END 2021-03-12 07:05 ==
PROVIDERS: Emergency Medicine; Emergency Provider Emergency Medicine; PCP Internal Medicine
DX: K59.00 Constipation, unspecified (principal); E11.65 Type 2 diabetes mellitus with hyperglycemia; R07.89 Other chest pain; F31.9 Bipolar disorder, unspecified; F14.10 Cocaine abuse, uncomplicated; Z91.14 Patient's other noncompliance with medication regimen; Z20.822 Contact with and (suspected) exposure to COVID-19; M19.90 Unspecified osteoarthritis, unspecified site; J44.9 Chronic obstructive pulmonary disease, unspecified; E11.42 Type 2 diabetes mellitus with diabetic polyneuropathy; G40.909 Epilepsy, unspecified, not intractable, without status epilepticus; I10 Essential (primary) hypertension; E78.5 Hyperlipidemia, unspecified; G47.30 Sleep apnea, unspecified; F41.9 Anxiety disorder, unspecified; Z86.718 Personal history of other venous thrombosis and embolism; Z86.711 Personal history of pulmonary embolism; Z86.2 Personal history of diseases of the blood and blood-forming organs and certain disorders involving the immune mechanism; Z86.14 Personal history of Methicillin resistant Staphylococcus aureus infection; Z95.0 Presence of cardiac pacemaker; Z96.653 Presence of artificial knee joint, bilateral; Z87.440 Personal history of urinary (tract) infections; Z79.4 Long term (current) use of insulin; Z79.899 Other long term (current) drug therapy; Z87.891 Personal history of nicotine dependence; R94.31 Abnormal electrocardiogram [ECG] [EKG]
CPT/HCPCS: 36415; 71046; 80048; 80307; 81001; 81025; 82948; 84443; 84484; 85025; 85610; 85730; 87426; 93005; 96360; 96361; 99285; C9803; J7030

== ENCOUNTER 2021-04-17 13:22 | Emergency (ER) | payer OTHER, SELFPAY ==
--- NOTE | ~2021-04-17 | CT_ITS ---
EXAMINATION: CT brain wo con DATE: 04/17/2021 14:17 INDICATION: Syncope. TECHNIQUE: Computed tomography (CT) of the head was performed without intravenous contrast. The mA wa s adjusted according to patient size. Iterative reconstruction technique was employed. The dose-lengt h product was 529.67 mGy-cm. COMPARISON: Head CT 03/20/2020 FINDINGS: There is no intracranial hemorrhage, acute infarction, or abnormal intracranial mass lesion . The ventricles are normal in size. The orbits are normal. There is mucosal thickening in the parana steffi sinuses. The mastoid air cells are normal. IMPRESSION: 1. Normal brain. Reviewed, dictated and finalized at location A. IMPRESSION: 1. Normal brain.
--- NOTE | ~2021-04-17 | XR_ITS ---
EXAMINATION: XR chest 2V EXAM DATE: 04/17/2021 14:14 INDICATION: syncope, HX: COPD, asthma. TECHNIQUE: Frontal and lateral projections of the chest obtained and reviewed. Comparison is made to prior examination from 03/11/2021. FINDINGS: Dual lead pacemaker with some redundancy in the right ventricular lead. Appearance is uncha nged compared to prior study. There is mild cardiomegaly. Pulmonary vascular congestion. No confluent consolidation, pneumothorax or pleural effusion suspected. There are mild bony degenerative changes. There are cholecystectomy clips. IMPRESSION: 1. No acute cardiopulmonary findings. Reviewed, dictated and finalized at location A.
[2021-04-17 13:48] LABS: Glucose Point of Care > 500 mg/dl (65-105)
--- NOTE | 2021-04-17 13:49 | ECG_ITS ---
Measurements Intervals [place] Rate: 88 P: 45 GA: 159 QRS: 21 QRSD: 82 T: 16 QT: 338 QTc: 409 Interpretive Statements SINUS RHYTHM LOW QRS VOLTAGE IN PRECORDIAL LEADS BASELINE ARTIFACT- I, II, III, AVR, AVL, V1 BORDERLINE ECG Electronically Signed On 04-18-2021 10:00:45 CDT by Kalin Castorena D.O.
[2021-04-17 13:54] VITALS: BP 119/97; PULSE 102; RESP 23; TEMP 36.9; O2SAT 100
[2021-04-17 13:58] VITALS: PULSE 96; RESP 22; O2SAT 100
[2021-04-17 14:00] VITALS: PULSE 96; RESP 24; O2SAT 100
[2021-04-17] MEDS: SODIUM CHLORIDE 0.9% IV 1,000 ML 999 ML IV CONT ×2 (14:00→16:59)
[2021-04-17 14:01] VITALS: BP 135/76; PULSE 94; PULSE 95; RESP 18; O2SAT 100
--- NOTE | 2021-04-17 14:07 | PC.NURSE ---
Pt off floor to radiology
[2021-04-17 14:36] LABS: Add Urine Microscopic? YES; Appearance Urine Clear (Clear); Bacteria Urine Trace /hpf; Bilirubin Urine Negative (Negative); Blood Urine 1+ (Negative); Color Urine Straw (Yellow); Glucose Urine UA 3+ mg/dL (Negative); Ketones Urine Trace mg/dL (Negative); Leukocyte Esterase Ur Negative LEU/UL (Negative); Mucus Urine Rare /lpf; Nitrate Urine Negative (Negative); Protein Urine 1+ mg/dL (Negative); Squamous Epithelial Cell Urine Occasional /hpf (Few); Urobilinogen Urine Negative mg/dL (<2.0); WBC Urine 0-3 /hpf
[2021-04-17 14:57] LABS: Amphetamine Screen Urine Negative (Negative); Barbiturate Screen Urine Negative (Negative); Benzodiazepines Screen Urine Negative (Negative); Cannabinoid Screen Urine Negative (Negative); Cocaine Screen Urine Positive (Negative); Methadone Screen Urine Negative (Negative); Opiate Screen Urine Negative (Negative); Phencyclidine Screen Urine Negative (Negative); Specific Grav Ur 1.031 (1.001-1.035)
[2021-04-17 15:20] LABS: Alanine Aminotransferase 16 U/L (4-35); Albumin Level 3.3 g/dL (3.5-5.1); Alkaline Phosphatase 87 U/L (38-126); Anion Gap 5 mmol/L (8-16); Aspartate Amino Transferase 25 U/L (14-36); Bilirubin,Total 0.4 mg/dL (0.2-1.3); Blood Urea Nitrogen 23 mg/dL (7-17); Calcium 8.3 mg/dL (8.4-10.2); Carbon Dioxide 25 mmol/L (22-30); Chloride 96 mmol/L (98-107); Estimated Glomerular Filt Rate > 60; Potassium 4.9 mmol/L (3.4-5.0); Sodium 126 mmol/L (137-145)
[2021-04-17 15:34] LABS: Glucose 673 mg/dL (65-110)
[2021-04-17 15:43] LABS: Glucose Point of Care > 500 mg/dl (65-105)
--- NOTE | 2021-04-17 16:06 | ED.GENADULT ---
HPI - General Adult General Chief complaint: Syncope Stated complaint: syncopal episode - high blood sugar Time Seen by Provider: 04/17/21 13:39 History of Present Illness HPI narrative: Patient is a 45-year-old female who presents ER with syncope. She was inside a local gas station when she walked outside down on the ground and laid backwards and was reportedly unconscious until EMS arrived. Patient has been seen recurrently for episodes like this. She was found to be hyperglycemic which also tends to be her basic presentation as she is quite noncompliant with her medication. Chart review shows patient is frequently positive for cocaine. Patient has no reports of pain at this time. Is unsure why she may have lost consciousness. Related Data Home Medications Medication Instructions Recorded Confirmed lisinopril 20 mg PO DAILY 06/15/19 09/24/20 albuterol sulfate [ProAir HFA] 2 puff INHALATION Q4H PRN 08/21/19 09/24/20 atorvastatin 20 mg PO DAILY 08/21/19 09/24/20 glipizide 10 mg PO DAILY 08/21/19 09/24/20 omeprazole 20 mg PO DAILY 08/21/19 09/24/20 Januvia 100 mg PO DAILY 09/24/19 09/24/20 gabapentin 800 mg PO QID 02/12/20 09/24/20 glycopyrrolate 1 mg PO DAILY PRN 02/12/20 09/24/20 pioglitazone 30 mg PO DAILY 02/12/20 09/24/20 levetiracetam [Keppra] 500 mg PO BID 02/14/20 09/24/20 Basaglshadia Sun U-100 Insulin 30 unit SUBCUT QPM 09/01/20 09/24/20 metoprolol succinate 50 mg PO DAILY 09/01/20 09/24/20 oxycodone-acetaminophen [Percocet] 1 tablet PO Q6H PRN 09/01/20 09/24/20 Allergies Allergy/AdvReac Type Severity Reaction Status Date / Time lidocaine Allergy Intermediate HIVES Verified 03/11/21 20:13 nitroglycerin Allergy Intermediate HIVES Verified 03/11/21 20:13 aspirin Allergy Mild Hives Verified 03/11/21 20:13 citalopram Allergy Mild Rash Verified 03/11/21 20:13 escitalopram Allergy Mild Hives Verified 03/11/21 20:13 ibuprofen Allergy Mild Hives Verified 03/11/21 20:13 Penicillins Allergy Mild HIVES PER Verified 03/11/21 20:13 UNCODED ALLERGIES 08/27/12 procaine Allergy Mild Hives Verified 03/11/21 20:13 propoxyphene Allergy Mild Hives Verified 03/11/21 20:13 doxycycline Allergy Unknown Hives Verified 03/11/21 20:13 meloxicam Allergy Unknown HIVES Verified 03/11/21 20:13 Sulfa (Sulfonamide Allergy Unknown HIVES PER Verified 03/11/21 20:13 Antibiotics) UNCODED ALLERGIES 08/27/12 sulfamethoxazole Allergy Unknown Hives Verified 03/11/21 20:13 trimethoprim Allergy Unknown Hives Verified 03/11/21 20:13 codeine Allergy Hives Verified 03/11/21 20:13 iohexol Allergy Hives Verified 03/11/21 20:13 [From contrast - CT, X-RAY] adhesive AdvReac Unknown SILK TAPE= Verified 03/11/21 20:13 HIVES Review of Systems Review of Systems: All systems reviewed & are unremarkable except as noted in HPI and below Constitutional: Constitutional: Denies chills, Denies fever(s) and Reports weakness ENT: Denies nasal congestion and Denies sore throat Cardiovascular: Cardiovascular: Denies chest pain and Denies radiating jaw, neck or arm pain Respiratory: Respiratory: Denies cough, Denies dyspnea and Denies wheezing Gastrointestinal: Gastrointestinal: Denies abdominal pain, Denies nausea and Denies vomiting Neurologic: Reports syncope, Denies headache(s), Denies focal weakness and Denies numbness PMFSH Past Medical History Medical History Anemia Anxiety Arthritis Asthma Bipolar disorder COPD (chronic obstructive pulmonary disease) Depression Diabetes mellitus DVT (deep venous thrombosis) Eczema Of the scalp Epilepsy Family history of colon cancer in father Foot fracture, right GERD (gastroesophageal reflux disease) Herniated disc HTN (hypertension) Hyperlipidemia MRSA (methicillin resistant staph aureus) culture positive Obesity Pacemaker Peripheral neuropathy Pulmonary embolism Seizures Sleep apnea Suicide attempt Ulcer Uncontrolle
[2021-04-17] MEDS: ACETAMINOPHEN 500 MG TABLET 1000 MG PO (16:26)
[2021-04-17 16:35] LABS: Glucose Point of Care > 500 mg/dl (65-105)
[2021-04-17] MEDS: INSULIN HUMAN REGULAR (*BKC) 100 UNITS/ML IV PUSH ×2 (17:32→17:48)
[2021-04-17 17:43] LABS: Glucose Point of Care 441 mg/dl (65-105)
[2021-04-17 17:46] LABS: Basophils Absolute Auto 0.1 K/mm3 (0.0-0.1); Basophils Percent Auto 0.6 % (0.2-1.2); Eosinophils Absolute Auto 0.1 K/mm3 (0-0.3); Eosinophils Percent Auto 1.6 % (0-4.4); Hematocrit 38.2 % (37.0-47.0); Hemoglobin 12.5 g/dL (12.0-15.0); Immature Granulocyte Absolute 0.04 K/mm3 (0.00-0.031); Immature Granulocyte Percent A 0.5 % (0-0.5); Lymphocytes Absolute Auto 1.72 K/mm3 (0.9-3.2); Lymphocytes Percent Auto 21.3 % (18.3-44.2); Mean Corpuscular HGB Conc 32.7 g/dl (32-36); Mean Corpuscular Hemoglobin 27.8 pg (26-34); Mean Corpuscular Volume 84.9 fl (80-100); Mean Platelet Volume 10.8 fl (7.4-10.4); Monocytes Absolute Auto 0.5 K/mm3 (0.1-0.6); Monocytes Percent Auto 6.2 % (2.6-8.5); Neutrophils Absolute Auto 5.6 K/mm3 (1.3-6.7); Neutrophils Percent Auto 69.8 % (45.5-73.1); Platelet Count Result 259 k/mm3 (150-375); Red Cell Distribution Width 13.2 % (11.5-14.5); White Blood Count 8.1 K/mm3 (4.5-10.0)
--- NOTE | 2021-04-17 17:58 | PC.NURSE ---
called to room by pt - Pt upset that nobody cares and nothing has been done for her and nobody has seen her. Explained to pt that she has had a medical exam per Dr An, labs drawn, and IV fluids and medications given. Pt remains upset. House Sup at bedside to witness interaction
--- NOTE | 2021-04-17 18:12 | PC.NURSE ---
Pt upset, refusing further treatment and wanting to leave immediately. Pt told her blood sugar will be check in 10min but she does not want to wait. Pt signed AMA paperwork and verbalized understanding of risks of leaving. Pt ambulatory on d/c. IV removed.
== END 2021-04-17 18:06 | disposition left against medical advice (07) ==
LOC: ANHED 14:52
PROVIDERS: Emergency Provider Emergency Medicine; PCP Internal Medicine
DX: E11.65 Type 2 diabetes mellitus with hyperglycemia (principal); J44.9 Chronic obstructive pulmonary disease, unspecified; G40.909 Epilepsy, unspecified, not intractable, without status epilepticus; K21.9 Gastro-esophageal reflux disease without esophagitis; I10 Essential (primary) hypertension; E78.5 Hyperlipidemia, unspecified; E11.42 Type 2 diabetes mellitus with diabetic polyneuropathy; M19.90 Unspecified osteoarthritis, unspecified site; Z86.2 Personal history of diseases of the blood and blood-forming organs and certain disorders involving the immune mechanism; Z95.0 Presence of cardiac pacemaker; Z86.718 Personal history of other venous thrombosis and embolism; Z86.711 Personal history of pulmonary embolism; Z79.4 Long term (current) use of insulin; G47.30 Sleep apnea, unspecified; Z87.440 Personal history of urinary (tract) infections; Z86.14 Personal history of Methicillin resistant Staphylococcus aureus infection; Z96.653 Presence of artificial knee joint, bilateral; F17.210 Nicotine dependence, cigarettes, uncomplicated; R94.31 Abnormal electrocardiogram [ECG] [EKG]
CPT/HCPCS: 36415; 70450; 71046; 80053; 80307; 81001; 82948; 85025; 93005; 96361; 96374; 99284; A9270; J1815; J7030

== ENCOUNTER 2021-06-01 02:21 | Emergency (ER) | payer OTHER, SELFPAY ==
--- NOTE | ~2021-06-01 | CT_ITS ---
EXAMINATION: CT abdomen pelvis wo con DATE: 06/01/2021 03:44 INDICATION: Generalized abdominal pain TECHNIQUE: Computed tomography (CT) of the abdomen and pelvis was performed without intravenous contr ast. The dose-length product (DLP) was 1047.52 mGy-cm. Automated exposure control and iterative recon struction technique were employed. COMPARISON: 09/24/2020 FINDINGS: Cardiomegaly is noted. Pacemaker leads are noted in the heart. The gallbladder is surgicall y absent. There is mild enlargement of the common bile duct and central intrahepatic ducts which is l ikely due to post cholecystectomy state. The spleen, pancreas, and adrenal glands are normal. The kid neys are unremarkable. No pathologically enlarged abdominal or pelvic lymph nodes are identified. The re is no free intraperitoneal gas or evidence of bowel obstruction. The appendix is normal. There is a fat-containing umbilical hernia. IMPRESSION: 1. No CT correlate for the patient's symptoms. Reviewed, dictated and finalized at location A.
[2021-06-01 02:25] VITALS: BP 163/76; PULSE 97; RESP 16; TEMP 36.6; O2SAT 96
--- NOTE | 2021-06-01 02:42 | PC.NURSE ---
BS High in ED.
[2021-06-01 02:44] LABS: Glucose Point of Care > 500 mg/dl (65-105)
[2021-06-01 03:05] LABS: Basophils Absolute Auto 0.1 K/mm3 (0.0-0.1); Basophils Percent Auto 0.7 % (0.2-1.2); Eosinophils Absolute Auto 0.2 K/mm3 (0-0.3); Eosinophils Percent Auto 2.2 % (0-4.4); Hematocrit 41.8 % (37.0-47.0); Hemoglobin 13.4 g/dL (12.0-15.0); Immature Granulocyte Absolute 0.03 K/mm3 (0.00-0.031); Immature Granulocyte Percent A 0.4 % (0-0.5); Lymphocytes Absolute Auto 0.98 K/mm3 (0.9-3.2); Lymphocytes Percent Auto 14.1 % (18.3-44.2); Mean Corpuscular HGB Conc 32.1 g/dl (32-36); Mean Corpuscular Hemoglobin 28.6 pg (26-34); Mean Corpuscular Volume 89.3 fl (80-100); Mean Platelet Volume 10.4 fl (7.4-10.4); Monocytes Absolute Auto 0.6 K/mm3 (0.1-0.6); Monocytes Percent Auto 7.9 % (2.6-8.5); Neutrophils Absolute Auto 5.2 K/mm3 (1.3-6.7); Neutrophils Percent Auto 74.7 % (45.5-73.1); Platelet Count Result 263 k/mm3 (150-375); Red Blood Count 4.68 M/mm3 (4.2-5.4); White Blood Count 6.9 K/mm3 (4.5-10.0)
[2021-06-01] MEDS: ONDANSETRON INJ 4 MG/2 ML VIAL IV PUSH (03:06)
[2021-06-01] MEDS: MORPHINE SULFATE (*CRX) 4 MG/ML INJ IV PUSH (03:07)
--- NOTE | 2021-06-01 03:07 | ED.GENADULT ---
HPI - General Adult General Chief complaint: Abdominal Pain Stated complaint: abd pain, BS > 600 Time Seen by Provider: 06/01/21 02:35 History of Present Illness HPI narrative: Patient 45-year-old female presents the emergency department with chief complaint of abdominal pain constipation and hyperglycemia. The patient has a long running history of diabetes and has problems with hyperglycemia today she presented to the emergency department if she has not been amount of bowel movement and is attempted to strain to have a bowel movement. Patient reports she had a bowel movement this had some blood with it and reports that she has pain in her abdomen. Incidentally the patient has noticed that her blood sugars been running extremely high patient denies fever denies chills reports that the pain is cramping throughout her entire abdomen. Related Data Home Medications Medication Instructions Recorded Confirmed lisinopril 20 mg PO DAILY 06/15/19 09/24/20 albuterol sulfate [ProAir HFA] 2 puff INHALATION Q4H PRN 08/21/19 09/24/20 atorvastatin 20 mg PO DAILY 08/21/19 09/24/20 glipizide 10 mg PO DAILY 08/21/19 09/24/20 omeprazole 20 mg PO DAILY 08/21/19 09/24/20 Januvia 100 mg PO DAILY 09/24/19 09/24/20 gabapentin 800 mg PO QID 02/12/20 09/24/20 glycopyrrolate 1 mg PO DAILY PRN 02/12/20 09/24/20 pioglitazone 30 mg PO DAILY 02/12/20 09/24/20 levetiracetam [Keppra] 500 mg PO BID 02/14/20 09/24/20 Irajaglshadia Sun U-100 Insulin 30 unit SUBCUT QPM 09/01/20 09/24/20 metoprolol succinate 50 mg PO DAILY 09/01/20 09/24/20 oxycodone-acetaminophen [Percocet] 1 tablet PO Q6H PRN 09/01/20 09/24/20 Allergies Allergy/AdvReac Type Severity Reaction Status Date / Time lidocaine Allergy Intermediate HIVES Verified 06/01/21 02:58 nitroglycerin Allergy Intermediate HIVES Verified 06/01/21 02:58 aspirin Allergy Mild Hives Verified 06/01/21 02:58 citalopram Allergy Mild Rash Verified 06/01/21 02:58 escitalopram Allergy Mild Hives Verified 06/01/21 02:58 ibuprofen Allergy Mild Hives Verified 06/01/21 02:58 Penicillins Allergy Mild HIVES PER Verified 06/01/21 02:58 UNCODED ALLERGIES 08/27/12 procaine Allergy Mild Hives Verified 06/01/21 02:58 propoxyphene Allergy Mild Hives Verified 06/01/21 02:58 doxycycline Allergy Unknown Hives Verified 06/01/21 02:58 meloxicam Allergy Unknown HIVES Verified 06/01/21 02:58 Sulfa (Sulfonamide Allergy Unknown HIVES PER Verified 06/01/21 02:58 Antibiotics) UNCODED ALLERGIES 08/27/12 sulfamethoxazole Allergy Unknown Hives Verified 06/01/21 02:58 trimethoprim Allergy Unknown Hives Verified 06/01/21 02:58 codeine Allergy Hives Verified 06/01/21 02:58 iohexol Allergy Hives Verified 06/01/21 02:58 [From contrast - CT, X-RAY] adhesive AdvReac Unknown SILK TAPE= Verified 06/01/21 02:58 HIVES Review of Systems Review of Systems: A 10 system review of systems was completed on the patient and is negative except for what is stated in the HPI. Nursing and ancillary documentation was reviewed. PMFSH Past Medical History Medical History Anemia Anxiety Arthritis Asthma Bipolar disorder COPD (chronic obstructive pulmonary disease) Depression Diabetes mellitus DVT (deep venous thrombosis) Eczema Of the scalp Epilepsy Family history of colon cancer in father Foot fracture, right GERD (gastroesophageal reflux disease) Herniated disc HTN (hypertension) Hyperlipidemia MRSA (methicillin resistant staph aureus) culture positive Obesity Pacemaker Peripheral neuropathy Pulmonary embolism Seizures Sleep apnea Suicide attempt Ulcer Uncontrolled diabetes mellitus UTI (urinary tract infection) Surgical History Surgical History History of bilateral knee replacement History of cholecystectomy Family History Family History (Reviewed 06/01/21 @ 03:08 by Manas Dean
[2021-06-01 03:08] LABS: Add Urine Microscopic? YES; Appearance Urine Clear (Clear); Bilirubin Urine Negative (Negative); Blood Urine 1+ (Negative); Color Urine Straw (Yellow); Glucose Urine UA 3+ mg/dL (Negative); Ketones Urine Negative (Negative); Leukocyte Esterase Ur Negative LEU/UL (Negative); Mucus Urine Rare /lpf; Nitrate Urine Negative (Negative); Protein Urine 1+ mg/dL (Negative); RBC Urine 0-2 /hpf (0-2); Squamous Epithelial Cell Urine Rare /hpf (Few); Urobilinogen Urine Negative mg/dL (<2.0); WBC Urine 0-3 /hpf
[2021-06-01] MEDS: SODIUM CHLORIDE 0.9% IV 1,000 ML 999 ML IV CONT ×2 (03:08→03:56)
[2021-06-01 03:13] LABS: Specific Grav Ur 1.031 (1.001-1.035)
[2021-06-01 03:20] LABS: Lactic Acid Reflex 1.2 mmol/L (0.7-2.1)
[2021-06-01 03:30] LABS: Alanine Aminotransferase 15 U/L (4-35); Albumin Level 3.6 g/dL (3.5-5.1); Alkaline Phosphatase 87 U/L (38-126); Anion Gap 5 mmol/L (8-16); Aspartate Amino Transferase 27 U/L (14-36); Bilirubin,Total 0.5 mg/dL (0.2-1.3); Blood Urea Nitrogen 24 mg/dL (7-17); Calcium 9.1 mg/dL (8.4-10.2); Carbon Dioxide 30 mmol/L (22-30); Chloride 94 mmol/L (98-107); Estimated Glomerular Filt Rate > 60; Lipase 308 U/L (23-300); Sodium 129 mmol/L (137-145)
[2021-06-01 03:34] LABS: Beta-Hydroxybutyrate/Acetoacetate 0.18 mmol/L (0.02-0.27)
[2021-06-01 03:49] LABS: Glucose 796 mg/dL (65-110); Potassium 4.9 mmol/L (3.4-5.0)
[2021-06-01] MEDS: INSULIN HUMAN REGULAR (*BKC) 100 UNITS/ML 8 UNITS IV PUSH (03:55)
[2021-06-01 03:57] VITALS: BP 145/94; PULSE 88; RESP 14; O2SAT 95
[2021-06-01 04:37] LABS: Glucose Point of Care > 500 mg/dl (65-105)
[2021-06-01 04:44] VITALS: BP 159/84; PULSE 95; RESP 14; O2SAT 99
[2021-06-01 05:42] LABS: Glucose Point of Care 356 mg/dl (65-105)
[2021-06-01 06:11] VITALS: BP 144/81; PULSE 90; RESP 18; O2SAT 98
== END 2021-06-01 06:13 | disposition home or self-care (01) ==
PROVIDERS: Emergency Provider Emergency Medicine; PCP Internal Medicine
DX: E11.65 Type 2 diabetes mellitus with hyperglycemia (principal); R10.84 Generalized abdominal pain; J44.9 Chronic obstructive pulmonary disease, unspecified; E11.42 Type 2 diabetes mellitus with diabetic polyneuropathy; G40.909 Epilepsy, unspecified, not intractable, without status epilepticus; K21.9 Gastro-esophageal reflux disease without esophagitis; I10 Essential (primary) hypertension; E78.5 Hyperlipidemia, unspecified; E66.9 Obesity, unspecified; Z68.33 Body mass index [BMI] 33.0-33.9, adult; M19.90 Unspecified osteoarthritis, unspecified site; Z95.0 Presence of cardiac pacemaker; Z86.718 Personal history of other venous thrombosis and embolism; Z86.711 Personal history of pulmonary embolism; Z86.14 Personal history of Methicillin resistant Staphylococcus aureus infection; Z87.440 Personal history of urinary (tract) infections; Z79.4 Long term (current) use of insulin; Z79.84 Long term (current) use of oral hypoglycemic drugs; Z96.653 Presence of artificial knee joint, bilateral; Z87.891 Personal history of nicotine dependence
CPT/HCPCS: 36415; 74176; 80053; 81001; 81025; 82010; 82948; 83605; 83690; 85025; 96361; 96374; 96375; 99284; J1815; J2270; J2405; J7030

== ENCOUNTER 2021-06-12 17:34 | Emergency (ER) | payer OTHER, SELFPAY ==
--- NOTE | ~2021-06-12 | XR_ITS ---
XR chest 2V DATE: 06/12/2021 18:11 INDICATION: Mid sternal chest pain, shortness of breath TECHNIQUE: AP and lateral views COMPARISON: 04/17/2021 AP and lateral chest FINDINGS: Left sided pacemaker with 2 pacemaker leads are noted. Heart size appears prominent but is not optimally evaluated on AP projection because of magnification. No pulmonary infiltrate or consolidation, pulmonary vascular congestion or pleural effusion or pneumo thorax. IMPRESSION: No active pulmonary disease Reviewed, dictated and finalized at location A. IMPRESSION: No active pulmonary disease
[2021-06-12 17:38] VITALS: BP 139/75; PULSE 90; RESP 18; TEMP 36.8; O2SAT 99
[2021-06-12 17:50] VITALS: PULSE 88
[2021-06-12 17:51] VITALS: BP 139/75; PULSE 88; RESP 18; O2SAT 99
[2021-06-12] MEDS: ACETAMINOPHEN 500 MG TABLET 1000 MG PO (17:59)
--- NOTE | 2021-06-12 18:00 | PC.NURSE ---
Pt gone to Xray
[2021-06-12 18:40] LABS: Basophils Percent Auto 0.3 % (0.2-1.2); Eosinophils Absolute Auto 0.2 K/mm3 (0-0.3); Eosinophils Percent Auto 2.1 % (0-4.4); Hematocrit 38.3 % (37.0-47.0); Hemoglobin 12.5 g/dL (12.0-15.0); Immature Granulocyte Absolute 0.03 K/mm3 (0.00-0.031); Immature Granulocyte Percent A 0.4 % (0-0.5); Lymphocytes Absolute Auto 1.64 K/mm3 (0.9-3.2); Lymphocytes Percent Auto 22.7 % (18.3-44.2); Mean Corpuscular HGB Conc 32.6 g/dl (32-36); Mean Corpuscular Hemoglobin 28.4 pg (26-34); Mean Platelet Volume 10.1 fl (7.4-10.4); Monocytes Absolute Auto 0.4 K/mm3 (0.1-0.6); Monocytes Percent Auto 5.9 % (2.6-8.5); Neutrophils Percent Auto 68.6 % (45.5-73.1); Platelet Count Result 202 k/mm3 (150-375); Red Cell Distribution Width 13.1 % (11.5-14.5); White Blood Count 7.2 K/mm3 (4.5-10.0)
--- NOTE | 2021-06-12 18:49 | PC.NURSE ---
Pt states to call Father Adriano [phone] to inform him she is in the hospital, informed pt there was no answer
[2021-06-12 18:53] LABS: Acetaminophen 12 ug/mL (10-30)
[2021-06-12 19:01] LABS: Anion Gap 7 mmol/L (8-16); Blood Urea Nitrogen 12 mg/dL (7-17); Calcium 8.5 mg/dL (8.4-10.2); Carbon Dioxide 25 mmol/L (22-30); Chloride 100 mmol/L (98-107); Estimated Glomerular Filt Rate > 60; Glucose 606 mg/dL (65-110); Potassium 4.6 mmol/L (3.4-5.0); Sodium 132 mmol/L (137-145)
--- NOTE | 2021-06-12 19:13 | PC.NURSE ---
lab states they will add on trop to blood that was recently sent down
--- NOTE | 2021-06-12 19:21 | ED.GENADULT ---
HPI - General Adult General Chief complaint: Chest Pain Stated complaint: CHEST PAIN History of Present Illness HPI narrative: Patient is a 45-year-old female who presents to the ER with chest pain. She was on a motor scooter at a local grocery store when she developed central chest pain. Sharp nonradiating. No nausea or vomiting. No shortness of breath. Patient does not have history of coronary disease. She had a negative stress test in the last year and has had a negative heart catheterization last 2 years. She does have a pacemaker for low heart rate. Patient also reports total compliance with her medications at home and assures me that she will not have an elevated blood sugar despite the fact that she usually ends up your with a critically elevated blood sugar. Patient has a long history of noncompliance and is well-known to this facility. Related Data Home Medications Medication Instructions Recorded Confirmed lisinopril 20 mg PO DAILY 06/15/19 09/24/20 albuterol sulfate [ProAir HFA] 2 puff INHALATION Q4H PRN 08/21/19 09/24/20 atorvastatin 20 mg PO DAILY 08/21/19 09/24/20 glipizide 10 mg PO DAILY 08/21/19 09/24/20 omeprazole 20 mg PO DAILY 08/21/19 09/24/20 Januvia 100 mg PO DAILY 09/24/19 09/24/20 gabapentin 800 mg PO QID 02/12/20 09/24/20 glycopyrrolate 1 mg PO DAILY PRN 02/12/20 09/24/20 pioglitazone 30 mg PO DAILY 02/12/20 09/24/20 levetiracetam [Keppra] 500 mg PO BID 02/14/20 09/24/20 Basaglar KwikPen U-100 Insulin 30 unit SUBCUT QPM 09/01/20 09/24/20 metoprolol succinate 50 mg PO DAILY 09/01/20 09/24/20 oxycodone-acetaminophen [Percocet] 1 tablet PO Q6H PRN 09/01/20 09/24/20 Allergies Allergy/AdvReac Type Severity Reaction Status Date / Time lidocaine Allergy Intermediate HIVES Verified 06/01/21 02:58 nitroglycerin Allergy Intermediate HIVES Verified 06/01/21 02:58 aspirin Allergy Mild Hives Verified 06/01/21 02:58 citalopram Allergy Mild Rash Verified 06/01/21 02:58 escitalopram Allergy Mild Hives Verified 06/01/21 02:58 ibuprofen Allergy Mild Hives Verified 06/01/21 02:58 Penicillins Allergy Mild HIVES PER Verified 06/01/21 02:58 UNCODED ALLERGIES 08/27/12 procaine Allergy Mild Hives Verified 06/01/21 02:58 propoxyphene Allergy Mild Hives Verified 06/01/21 02:58 doxycycline Allergy Unknown Hives Verified 06/01/21 02:58 meloxicam Allergy Unknown HIVES Verified 06/01/21 02:58 Sulfa (Sulfonamide Allergy Unknown HIVES PER Verified 06/01/21 02:58 Antibiotics) UNCODED ALLERGIES 08/27/12 sulfamethoxazole Allergy Unknown Hives Verified 06/01/21 02:58 trimethoprim Allergy Unknown Hives Verified 06/01/21 02:58 codeine Allergy Hives Verified 06/01/21 02:58 iohexol Allergy Hives Verified 06/01/21 02:58 [From contrast - CT, X-RAY] adhesive AdvReac Unknown SILK TAPE= Verified 06/01/21 02:58 HIVES Review of Systems Review of Systems: All systems reviewed & are unremarkable except as noted in HPI and below Constitutional: Constitutional: Denies chills, Denies fever(s) and Denies weakness ENT: Denies nasal congestion and Denies sore throat Cardiovascular: Cardiovascular: Reports chest pain, Denies rapid heart rate and Denies radiating jaw, neck or arm pain Respiratory: Respiratory: Denies cough, Denies dyspnea and Denies wheezing Gastrointestinal: Gastrointestinal: Denies abdominal pain, Denies nausea and Denies vomiting PMFSH Past Medical History Medical History Anemia Anxiety Arthritis Asthma Bipolar disorder COPD (chronic obstructive pulmonary disease) Depression Diabetes mellitus DVT (deep venous thrombosis) Eczema Of the scalp Epilepsy Family history of colon cancer in father Foot fracture, right GERD (gastroesophageal reflux disease) Herniated disc HTN (hypertension) Hyperlipidemia MRSA (methicillin resistant staph aureus) culture positive Obesity Pacemaker Peripheral neuropathy Pulmonary embolism
[2021-06-12 19:37] LABS: Troponin I < 0.012 ng/mL (0.000-0.034)
[2021-06-12] MEDS: SODIUM CHLORIDE 0.9% IV 1,000 ML 999 ML IV CONT (19:47)
[2021-06-12] MEDS: INSULIN HUMAN REGULAR (*BKC) 100 UNITS/ML 8 UNITS IV PUSH (19:48)
--- NOTE | 2021-06-12 19:59 | PC.NURSE ---
During intial introduction and medication administration patient was very rude and continued to belittle and yell at this nurse multiple times.
[2021-06-12 20:26] VITALS: BP 136/78; PULSE 78; RESP 18; O2SAT 99
[2021-06-12 20:48] LABS: Glucose Point of Care 475 mg/dl (65-105)
--- NOTE | 2021-06-12 21:27 | ECG_ITS ---
Measurements Intervals [place] Rate: 84 P: 49 [place]: 152 QRS: 19 QRSD: 90 T: 27 QT: 366 QTc: 434 Interpretive Statements SINUS RHYTHM DELAYED PRECORDIAL R/S TRANSITION BORDERLINE ECG Electronically Signed On 06-13-2021 6:34:41 CDT by Kalin Castorena D.O.
[2021-06-12 22:03] LABS: Troponin I < 0.012 ng/mL (0.000-0.034)
[2021-06-12 23:09] VITALS: BP 130/70; PULSE 78; RESP 16; O2SAT 99
== END 2021-06-12 23:10 | disposition home or self-care (01) ==
PROVIDERS: Emergency Provider Emergency Medicine; PCP Internal Medicine
DX: R07.9 Chest pain, unspecified (principal); E11.65 Type 2 diabetes mellitus with hyperglycemia; Z79.4 Long term (current) use of insulin; D64.9 Anemia, unspecified; F41.9 Anxiety disorder, unspecified; M19.90 Unspecified osteoarthritis, unspecified site; J45.909 Unspecified asthma, uncomplicated; F31.9 Bipolar disorder, unspecified; G40.909 Epilepsy, unspecified, not intractable, without status epilepticus; K21.9 Gastro-esophageal reflux disease without esophagitis; I10 Essential (primary) hypertension; E78.5 Hyperlipidemia, unspecified; G47.30 Sleep apnea, unspecified; Z95.0 Presence of cardiac pacemaker
CPT/HCPCS: 36415; 71046; 80048; 80307; 82948; 84484; 85025; 93005; 96361; 96374; 99284; A9270; J1815; J7030

== ENCOUNTER 2021-09-11 16:54 | Emergency (ER) | payer OTHER, SELFPAY ==
[2021-09-11 16:52] VITALS: BP 150/89; PULSE 89; RESP 16; O2SAT 98
[2021-09-11 16:57] VITALS: PULSE 90
--- NOTE | 2021-09-11 16:58 | ECG_ITS ---
Measurements Intervals [place] Rate: 85 P: 48 [place]: 163 QRS: -2 QRSD: 89 T: 12 QT: 357 QTc: 425 Interpretive Statements SINUS RHYTHM BORDERLINE R WAVE PROGRESSION, ANTERIOR LEADS BASELINE ARTIFACT- I, II, III, AVR, AVF, V1, V3-V6 BORDERLINE ECG Electronically Signed On 09-11-2021 20:02:36 [employer]PER[employer] by Kalin Castorena D.O.
[2021-09-11 17:13] LABS: Basophils Absolute Auto 0.1 K/mm3 (0.0-0.1); Basophils Percent Auto 0.9 % (0.2-1.2); Eosinophils Absolute Auto 0.2 K/mm3 (0-0.3); Eosinophils Percent Auto 2.4 % (0-4.4); Hematocrit 38.5 % (37.0-47.0); Hemoglobin 12.9 g/dL (12.0-15.0); Immature Granulocyte Absolute 0.02 K/mm3 (0.00-0.031); Immature Granulocyte Percent A 0.3 % (0-0.5); Lymphocytes Absolute Auto 1.77 K/mm3 (0.9-3.2); Lymphocytes Percent Auto 26.9 % (18.3-44.2); Mean Corpuscular HGB Conc 33.5 g/dl (32-36); Mean Corpuscular Hemoglobin 29.3 pg (26-34); Mean Corpuscular Volume 87.3 fl (80-100); Mean Platelet Volume 10.4 fl (7.4-10.4); Monocytes Absolute Auto 0.4 K/mm3 (0.1-0.6); Monocytes Percent Auto 6.7 % (2.6-8.5); Neutrophils Absolute Auto 4.1 K/mm3 (1.3-6.7); Neutrophils Percent Auto 62.8 % (45.5-73.1); Platelet Count Result 250 k/mm3 (150-375); Red Blood Count 4.41 M/mm3 (4.2-5.4); Red Cell Distribution Width 12.7 % (11.5-14.5); White Blood Count 6.6 K/mm3 (4.5-10.0)
[2021-09-11 17:26] LABS: Alanine Aminotransferase 16 U/L (4-35); Albumin Level 3.2 g/dL (3.5-5.1); Alkaline Phosphatase 81 U/L (38-126); Anion Gap 3 mmol/L (8-16); Aspartate Amino Transferase 18 U/L (14-36); Bilirubin,Total 0.3 mg/dL (0.2-1.3); Blood Urea Nitrogen 20 mg/dL (7-17); Calcium 8.7 mg/dL (8.4-10.2); Carbon Dioxide 28 mmol/L (22-30); Chloride 97 mmol/L (98-107); Estimated Glomerular Filt Rate 60; Glucose 618 mg/dL (65-110); Potassium 4.4 mmol/L (3.4-5.0); Sodium 128 mmol/L (137-145)
[2021-09-11 17:34] LABS: Troponin I < 0.012 ng/mL (0.000-0.034)
[2021-09-11 17:53] LABS: Amphetamine Screen Urine Negative (Negative); Barbiturate Screen Urine Negative (Negative); Benzodiazepines Screen Urine Negative (Negative); Cannabinoid Screen Urine Negative (Negative); Cocaine Screen Urine Positive (Negative); Methadone Screen Urine Negative (Negative); Opiate Screen Urine Negative (Negative); Phencyclidine Screen Urine Negative (Negative)
[2021-09-11] MEDS: INSULIN HUMAN REGULAR (*BKC) 100 UNITS/ML 12 UNITS IV PUSH (18:24)
[2021-09-11] MEDS: SODIUM CHLORIDE 0.9% IV 1,000 ML 150 ML IV CONT (18:24)
[2021-09-11 18:37] LABS: Add Urine Microscopic? YES; Appearance Urine Cloudy (Clear); Bacteria Urine Trace /hpf; Bilirubin Urine Negative (Negative); Blood Urine 1+ (Negative); Budding Yeast Urine Present /hpf; Color Urine Straw (Yellow); Glucose Urine UA 3+ mg/dL (Negative); Ketones Urine Negative (Negative); Leukocyte Esterase Ur 3+ LEU/UL (Negative); Mucus Urine Rare /lpf; Nitrate Urine Negative (Negative); Protein Urine 2+ mg/dL (Negative); RBC Urine 21-50 /hpf (0-2); Specific Grav Ur 1.029 (1.001-1.035); Squamous Epithelial Cell Urine Moderate /hpf (Few); Urobilinogen Urine Negative mg/dL (<2.0); WBC Urine >75 /hpf
[2021-09-11 19:30] LABS: Glucose Point of Care 294 mg/dl (65-105)
--- NOTE | 2021-09-11 19:33 | ED.CHESTPAIN ---
HPI - Chest Pain General Chief Complaint: Chest Pain Stated Complaint: CP Time Seen by Provider: 09/11/21 16:55 Source: patient Mode of arrival: EMS Limitations: no limitations History of Present Illness HPI narrative: 45-year-old with a history of hypertension, diabetes, asthma, peripheral neuropathy here with complaints of chest pain started this morning which is ongoing, right arm and leg tingling numbness. She denies any headache, shortness of breath no history of fever or chills. Denies drug use. MD complaint: chest pain Pertinent past history: coronary artery disease Onset (ago): day(s) (1) Timing of current episode: constant Pain location: left chest Pain radiation: none Severity: moderate Pain scale (0-10): 9 Risk Factors Coronary artery disease risk factors: diabetes and cocaine use Related Data Home Medications Medication Instructions Recorded Confirmed lisinopril 20 mg PO DAILY 06/15/19 09/24/20 albuterol sulfate [ProAir HFA] 2 puff INHALATION Q4H PRN 08/21/19 09/24/20 atorvastatin 20 mg PO DAILY 08/21/19 09/24/20 glipizide 10 mg PO DAILY 08/21/19 09/24/20 omeprazole 20 mg PO DAILY 08/21/19 09/24/20 Januvia 100 mg PO DAILY 09/24/19 09/24/20 gabapentin 800 mg PO QID 02/12/20 09/24/20 glycopyrrolate 1 mg PO DAILY PRN 02/12/20 09/24/20 pioglitazone 30 mg PO DAILY 02/12/20 09/24/20 levetiracetam [Keppra] 500 mg PO BID 02/14/20 09/24/20 Basaglar KwikPen U-100 Insulin 30 unit SUBCUT QPM 09/01/20 09/24/20 metoprolol succinate 50 mg PO DAILY 09/01/20 09/24/20 oxycodone-acetaminophen [Percocet] 1 tablet PO Q6H PRN 09/01/20 09/24/20 Allergies Allergy/AdvReac Type Severity Reaction Status Date / Time lidocaine Allergy Intermediate HIVES Verified 06/01/21 02:58 nitroglycerin Allergy Intermediate HIVES Verified 06/01/21 02:58 aspirin Allergy Mild Hives Verified 06/01/21 02:58 citalopram Allergy Mild Rash Verified 06/01/21 02:58 escitalopram Allergy Mild Hives Verified 06/01/21 02:58 ibuprofen Allergy Mild Hives Verified 06/01/21 02:58 Penicillins Allergy Mild HIVES PER Verified 06/01/21 02:58 UNCODED ALLERGIES 08/27/12 procaine Allergy Mild Hives Verified 06/01/21 02:58 propoxyphene Allergy Mild Hives Verified 06/01/21 02:58 doxycycline Allergy Unknown Hives Verified 06/01/21 02:58 meloxicam Allergy Unknown HIVES Verified 06/01/21 02:58 Sulfa (Sulfonamide Allergy Unknown HIVES PER Verified 06/01/21 02:58 Antibiotics) UNCODED ALLERGIES 08/27/12 sulfamethoxazole Allergy Unknown Hives Verified 06/01/21 02:58 trimethoprim Allergy Unknown Hives Verified 06/01/21 02:58 codeine Allergy Hives Verified 06/01/21 02:58 iohexol Allergy Hives Verified 06/01/21 02:58 [From contrast - CT, X-RAY] adhesive AdvReac Unknown SILK TAPE= Verified 06/01/21 02:58 HIVES Review of Systems Review of Systems: All systems reviewed & are unremarkable except as noted in HPI and below Constitutional: Constitutional: Reports no additional constitutional complaints Eyes: Eyes: Reports no additional eye complaints ENT: Reports system reviewed and no additional complaints, except as documented Cardiovascular: Cardiovascular: Reports as per HPI Respiratory: Respiratory: Reports no additional respiratory complaints Gastrointestinal: Gastrointestinal: Reports no additional gastrointestinal complaints Genitourinary: Genitourinary: Reports no additional female genitourinary complaints Musculoskeletal: Musculoskeletal: Reports no additional musculoskeletal complaints Neurologic: Reports as per HPI Psychiatric: Psychiatric: Reports no additional psychiatric complaints [facility] Past Medical History Medical History Anemia Anxiety Arthritis Asthma Bipolar disorder COPD (chronic obstructive pulmonary disease) Depression Diabetes mellitus DVT (deep venous thrombosis) Eczema Of the scalp Epilepsy Family history of colon cancer in father Foot fracture, ri
[2021-09-11 20:01] VITALS: BP 97/68; PULSE 93; RESP 16; O2SAT 98
== END 2021-09-11 20:03 | disposition home or self-care (01) ==
PROVIDERS: Emergency Provider Family Medicine; PCP Internal Medicine
DX: E11.65 Type 2 diabetes mellitus with hyperglycemia (principal); F14.10 Cocaine abuse, uncomplicated; R07.9 Chest pain, unspecified; G62.89 Other specified polyneuropathies; D64.9 Anemia, unspecified; F41.9 Anxiety disorder, unspecified; M19.90 Unspecified osteoarthritis, unspecified site; J45.909 Unspecified asthma, uncomplicated; F32.9 Major depressive disorder, single episode, unspecified; G40.909 Epilepsy, unspecified, not intractable, without status epilepticus; I10 Essential (primary) hypertension; E78.5 Hyperlipidemia, unspecified; Z95.0 Presence of cardiac pacemaker
CPT/HCPCS: 36415; 80053; 80307; 81001; 82948; 84484; 85025; 87086; 87088; 93005; 96374; 99284; J1815; J7030

== ENCOUNTER 2021-12-16 14:34 | Emergency (ER) | payer OTHER, SELFPAY ==
--- NOTE | ~2021-12-16 | CT_ITS ---
EXAMINATION: CT cervical spine wo con DATE: 12/16/2021 15:43 INDICATION: fall, back pain TECHNIQUE: Computed tomography (CT) of the cervical spine was performed without intravenous contrast. Automated exposure control and iterative reconstruction technique were employed. The dose-length pro duct was 435.13 mGy-cm. COMPARISON: None FINDINGS: Counting reference: Craniocervical junction. There are seven cervical type vertebral bodies. Anatomic Variants: None. Vertebral Body Alignment: Straightening of the lower cervical spine as can occur with spasm or pos itioning. Stable trace C4 on C5 anterolisthesis, likely degenerative. Craniocervical junction: Mild degenerative change. Alignment intact. Base of skull/C1 fusion. Osseous structures/fracture: No evidence of a lytic or blastic process in the visualized spine. N o evidence of acute fracture. Cervical soft tissues: The paraspinal soft tissues planes are maintained. Patulous esophagus. Degenerative changes: Degenerative changes, without severe neural foraminal or central canal narrowin g. IMPRESSION: No acute fracture or traumatic malalignment in the cervical spine. Reviewed, dictated and finalized at location K.
--- NOTE | ~2021-12-16 | CT_ITS ---
EXAMINATION: CT brain wo con DATE: 12/16/2021 15:43 INDICATION: head injury, on xarelto TECHNIQUE: Computed tomography (CT) of the head was performed without intravenous contrast. The mA wa s adjusted according to patient size. Iterative reconstruction technique was employed. The dose-lengt h product was 529.67 mGy-cm. COMPARISON: 04/17/2021. FINDINGS: No acute intracranial hemorrhage or extra-axial fluid collection. No hydrocephalus, mass, or herniation. No acute ischemic infarct. Unremarkable dural venous sinus attenuation. No acute osseous abnormality. The aerated spaces are clear. IMPRESSION: No acute intracranial process. Reviewed, dictated and finalized at location K.
--- NOTE | ~2021-12-16 | CT_ITS ---
EXAMINATION: CT thoracic spine wo con DATE: 12/16/2021 15:43 INDICATION: Pain, status post fall. TECHNIQUE: Computed tomography (CT) of the thoracic spine was performed without intravenous contrast. Automated exposure control and iterative reconstruction technique were employed. The dose-length pro duct was 1111.34 mGy-cm. COMPARISON: None FINDINGS: Pedicles intact. Normal vertebral body alignment. Vertebral body heights preserved, with mi ld physiologic thoracolumbar wedging. Multilevel disc space narrowing, with prominent marginal osteop hytosis at multiple levels. Nondisplaced fracture of the right inferior articulating facet of T11. No other fracture. Otherwise normal facets and posterior elements. Incompletely visualized pacemaker le ads. Patulous esophagus. IMPRESSION: 1. Nondisplaced fracture of the right T11 inferior articulating facet. 2. No other acute fracture or traumatic malalignment detected in the thoracic spine. Reviewed, dictated and finalized at location K. IMPRESSION: 1. Nondisplaced fracture of the right T11 inferior articulating facet. 2. No other acute fracture or traumatic malalignment detected in the thoracic s pine.
[2021-12-16 14:35] VITALS: BP 147/72; PULSE 85; RESP 18; TEMP 36.6; O2SAT 96
--- NOTE | 2021-12-16 15:24 | ECG_ITS ---
Measurements Intervals Epes Rate: 82 P: 46 AR: 146 QRS: 9 QRSD: 91 T: 40 QT: 372 QTc: 435 Interpretive Statements SINUS RHYTHM BORDERLINE R WAVE PROGRESSION, ANTERIOR LEADS BORDERLINE ECG Electronically Signed On 12-16-2021 15:28:03 CDT by Kalin Castorena D.O.
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
--- NOTE | 2021-12-16 17:16 | PC.NURSE ---
house sup notified of bls transfer to [facility] er per house sup eta would be after 1800
[2021-12-16] MEDS: HYDROcodone/acetaminophen (*CRX) 7.5-325 MG TABLET 1 TAB PO (17:23)
[2021-12-16 17:26] VITALS: BP 108/79; PULSE 91; RESP 18; O2SAT 97
[2021-12-16 18:30] VITALS: BP 160/93; PULSE 60; RESP 18; O2SAT 100
== END 2021-12-16 18:38 | disposition short-term general hospital (02) ==
PROVIDERS: Emergency Provider Emergency Medicine; PCP Internal Medicine
DX: S22.081A Stable burst fracture of T11-T12 vertebra, initial encounter for closed fracture (principal); J44.9 Chronic obstructive pulmonary disease, unspecified; G40.909 Epilepsy, unspecified, not intractable, without status epilepticus; E78.5 Hyperlipidemia, unspecified; I10 Essential (primary) hypertension; E11.42 Type 2 diabetes mellitus with diabetic polyneuropathy; G47.30 Sleep apnea, unspecified; Z87.440 Personal history of urinary (tract) infections; F41.9 Anxiety disorder, unspecified; F32.A Depression, unspecified; Z86.2 Personal history of diseases of the blood and blood-forming organs and certain disorders involving the immune mechanism; Z86.14 Personal history of Methicillin resistant Staphylococcus aureus infection; Z86.718 Personal history of other venous thrombosis and embolism; Z86.711 Personal history of pulmonary embolism; Z95.0 Presence of cardiac pacemaker; Z79.01 Long term (current) use of anticoagulants; Z79.4 Long term (current) use of insulin; Z79.84 Long term (current) use of oral hypoglycemic drugs; Z96.653 Presence of artificial knee joint, bilateral; F17.210 Nicotine dependence, cigarettes, uncomplicated; R94.31 Abnormal electrocardiogram [ECG] [EKG]; W18.39XA Other fall on same level, initial encounter
CPT/HCPCS: 70450; 72125; 72128; 81025; 93005; 99285; A9270

== ENCOUNTER 2021-12-18 14:24 | Emergency (ER) | payer OTHER, SELFPAY ==
--- NOTE | 2021-12-18 15:14 | PC.NURSE ---
when calling pt name she states she changed her mind and does not want to be seen.
== END 2021-12-19 00:43 | disposition left against medical advice (07) ==
PROVIDERS: PCP Internal Medicine
DX: Z53.21 Procedure and treatment not carried out due to patient leaving prior to being seen by health care provider (principal)
CPT/HCPCS: 99199

== ENCOUNTER 2021-12-22 10:10 | Emergency (ER) | payer OTHER, SELFPAY ==
[2021-12-22 10:13] VITALS: BP 144/72; PULSE 90; RESP 18; TEMP 36.5; O2SAT 100
[2021-12-22 10:46] VITALS: O2SAT 100
[2021-12-22 10:48] VITALS: O2SAT 100
[2021-12-22 10:49] VITALS: BP 145/98; PULSE 87; RESP 18; O2SAT 100
[2021-12-22 12:13] LABS: Basophils Absolute Auto 0.1 K/mm3 (0.0-0.1); Basophils Percent Auto 0.7 % (0.2-1.2); Eosinophils Absolute Auto 0.2 K/mm3 (0-0.3); Eosinophils Percent Auto 2.2 % (0-4.4); Hemoglobin 12.5 g/dL (12.0-15.0); Immature Granulocyte Absolute 0.05 K/mm3 (0.00-0.031); Immature Granulocyte Percent A 0.7 % (0-0.5); Lymphocytes Absolute Auto 1.41 K/mm3 (0.9-3.2); Lymphocytes Percent Auto 19.6 % (18.3-44.2); Mean Corpuscular HGB Conc 33.8 g/dl (32-36); Mean Corpuscular Hemoglobin 28.8 pg (26-34); Mean Corpuscular Volume 85.3 fl (80-100); Mean Platelet Volume 10.3 fl (7.4-10.4); Monocytes Absolute Auto 0.5 K/mm3 (0.1-0.6); Monocytes Percent Auto 6.8 % (2.6-8.5); Platelet Count Result 222 k/mm3 (150-375); Red Blood Count 4.34 M/mm3 (4.2-5.4); Red Cell Distribution Width 12.8 % (11.5-14.5); White Blood Count 7.2 K/mm3 (4.5-10.0)
[2021-12-22 12:28] LABS: Anion Gap 2 mmol/L (8-16); Blood Urea Nitrogen 15 mg/dL (7-17); Calcium 8.4 mg/dL (8.4-10.2); Carbon Dioxide 30 mmol/L (22-30); Chloride 98 mmol/L (98-107); Estimated Glomerular Filt Rate > 60; Glucose 571 mg/dL (65-110); Potassium 3.8 mmol/L (3.4-5.0); Sodium 130 mmol/L (137-145)
[2021-12-22 14:11] LABS: Appearance Urine Cloudy (Clear); Bilirubin Urine Negative (Negative); Blood Urine 3+ (Negative); Glucose Urine UA 3+ mg/dL (Negative); Ketones Urine Negative (Negative); Leukocyte Esterase Ur 1+ LEU/UL (Negative); Nitrate Urine Negative (Negative); Protein Urine 2+ mg/dL (Negative); Urobilinogen Urine 0.2 mg/dL (<2.0)
[2021-12-22 14:22] LABS: Bacteria Urine 1+ /hpf; RBC Urine >75 /hpf (0-2); Squamous Epithelial Cell Urine Many /hpf (Few); WBC Urine >75 /hpf
[2021-12-22 14:25] LABS: Add Urine Microscopic? YES; Color Urine Light Yellow (Yellow)
--- NOTE | 2021-12-22 14:34 | ED.GENADULT ---
HPI - General Adult General Chief complaint: Shortness of Breath/Dyspnea Stated complaint: can't breathe Time Seen by Provider: 12/22/21 11:01 History of Present Illness HPI narrative: Patient is a 46-year-old female who presents ER for general fatigue. She reports she has been feeling tired over the last couple days. Reports when she exerts herself she will feel short of breath. No fevers sweats or chills. No productive cough. No chest pain or chest pressure. She does report some residual back pain from a recent fracture. It was a T11 articulating facet that was fractured. She was seen at a tertiary care center and no intervention was required. Patient has no new numbness or tingling arms or legs. She does report occasional urinary incontinence and is having some dysuria. She reports she has a sensation to urinate but she will accidentally go before she makes it to the bathroom. No saddle anesthesia. No incontinence of stool. Related Data Home Medications Medication Instructions Recorded Confirmed lisinopril 20 mg PO DAILY 06/15/19 09/24/20 albuterol sulfate [ProAir HFA] 2 puff INHALATION Q4H PRN 08/21/19 09/24/20 atorvastatin 20 mg PO DAILY 08/21/19 09/24/20 glipizide 10 mg PO DAILY 08/21/19 09/24/20 omeprazole 20 mg PO DAILY 08/21/19 09/24/20 Januvia 100 mg PO DAILY 09/24/19 09/24/20 gabapentin 800 mg PO QID 02/12/20 09/24/20 glycopyrrolate 1 mg PO DAILY PRN 02/12/20 09/24/20 pioglitazone 30 mg PO DAILY 02/12/20 09/24/20 levetiracetam [Keppra] 500 mg PO BID 02/14/20 09/24/20 Basaglar KwikPen U-100 Insulin 30 unit SUBCUT QPM 09/01/20 09/24/20 metoprolol succinate 50 mg PO DAILY 09/01/20 09/24/20 oxycodone-acetaminophen [Percocet] 1 tablet PO Q6H PRN 09/01/20 09/24/20 Allergies Allergy/AdvReac Type Severity Reaction Status Date / Time lidocaine Allergy Intermediate HIVES Verified 12/22/21 10:45 nitroglycerin Allergy Intermediate HIVES Verified 12/22/21 10:45 aspirin Allergy Mild Hives Verified 12/22/21 10:45 citalopram Allergy Mild Rash Verified 12/22/21 10:45 escitalopram Allergy Mild Hives Verified 12/22/21 10:45 ibuprofen Allergy Mild Hives Verified 12/22/21 10:45 Penicillins Allergy Mild HIVES PER Verified 12/22/21 10:45 UNCODED ALLERGIES 08/27/12 procaine Allergy Mild Hives Verified 12/22/21 10:45 propoxyphene Allergy Mild Hives Verified 12/22/21 10:45 doxycycline Allergy Unknown Hives Verified 12/22/21 10:45 meloxicam Allergy Unknown HIVES Verified 12/22/21 10:45 Sulfa (Sulfonamide Allergy Unknown HIVES PER Verified 12/22/21 10:45 Antibiotics) UNCODED ALLERGIES 08/27/12 sulfamethoxazole Allergy Unknown Hives Verified 12/22/21 10:45 trimethoprim Allergy Unknown Hives Verified 12/22/21 10:45 codeine Allergy Hives Verified 12/22/21 10:45 iohexol Allergy Hives Verified 12/22/21 10:45 [From contrast - CT, X-RAY] adhesive AdvReac Unknown SILK TAPE= Verified 12/22/21 10:45 HIVES Review of Systems Review of Systems: All systems reviewed & are unremarkable except as noted in HPI and below Constitutional: Constitutional: Denies chills, Reports fatigue, Denies fever(s) and Reports weakness Cardiovascular: Cardiovascular: Denies chest pain, Denies rapid heart rate and Denies radiating jaw, neck or arm pain Respiratory: Respiratory: Denies cough and Denies dyspnea Gastrointestinal: Gastrointestinal: Denies abdominal pain, Denies nausea and Denies vomiting Genitourinary: Genitourinary: Reports nocturia, Reports dysuria, Denies flank pain and Reports urinary incontinence Musculoskeletal: Musculoskeletal: Reports back pain Neurologic: Denies focal weakness and Denies numbness PMFSH Past Medical History Medical History Anemia Anxiety Arthritis Asthma Bipolar disorder COPD (chronic obstructive pulmonary disease) Depression Diabetes mellitus DVT (deep venous thrombosis) Eczema Of the scalp Epilepsy Family histor
[2021-12-22] MEDS: NITROFURANTOIN MONOHYD MACROCR 100 MG CAP PO (15:01)
== END 2021-12-22 15:05 | disposition home or self-care (01) ==
PROVIDERS: Emergency Provider Emergency Medicine; PCP Internal Medicine
DX: N39.0 Urinary tract infection, site not specified (principal); E11.65 Type 2 diabetes mellitus with hyperglycemia; T38.3X6A Underdosing of insulin and oral hypoglycemic [antidiabetic] drugs, initial encounter; J44.9 Chronic obstructive pulmonary disease, unspecified; G40.909 Epilepsy, unspecified, not intractable, without status epilepticus; E78.5 Hyperlipidemia, unspecified; I10 Essential (primary) hypertension; E11.42 Type 2 diabetes mellitus with diabetic polyneuropathy; Z95.0 Presence of cardiac pacemaker; E66.9 Obesity, unspecified; Z68.34 Body mass index [BMI] 34.0-34.9, adult; K21.9 Gastro-esophageal reflux disease without esophagitis; Z87.440 Personal history of urinary (tract) infections; Z86.14 Personal history of Methicillin resistant Staphylococcus aureus infection; Z86.718 Personal history of other venous thrombosis and embolism; Z86.2 Personal history of diseases of the blood and blood-forming organs and certain disorders involving the immune mechanism; Z79.4 Long term (current) use of insulin; Z79.84 Long term (current) use of oral hypoglycemic drugs; Z96.653 Presence of artificial knee joint, bilateral; Z87.891 Personal history of nicotine dependence
CPT/HCPCS: 36415; 80048; 81001; 85025; 87086; 87088; 99283; A9270

== ENCOUNTER 2021-12-29 06:45 | Inpatient (IN) | payer OTHER, SELFPAY ==
[2021-12-29] VITALS (12 sets, daily range): BP systolic 89–153; BP diastolic 45–76; PULSE 62–103; RESP 9–19; TEMP 35.7–36.9; O2SAT 92–100; BMI 34.7
--- NOTE | ~2021-12-29 | US_ITS ---
US breast LT limited DATE: 12/29/2021 08:03 INDICATION: Palpable red painful left breast mass TECHNIQUE: Real-time imaging was performed on 12/29/2021, targeted to the area of clinical complaint a t the left breast at 2-4:00 COMPARISON: None FINDINGS: There is prominent communicating serpiginous fluid accumulation within the soft tissues of the left breast at 2-4:00. No soft tissue mass or suspicious shadowing is identified. Differential diagnosis includes edema, hematoma, seroma, abscess. No current or past mammograms are available for comparison. Diagnostic mammography should be consider ed. IMPRESSION: BI-RADS Category 0: Incomplete; need additional imaging evaluation Recommendations: Diagnostic mammography should be considered. Reviewed, dictated and finalized at [facility]. Reviewed, dictated and finalized at [facility].
--- NOTE | ~2021-12-29 | CT_ITS ---
EXAMINATION: CT brain wo con DATE: 12/29/2021 22:08 INDICATION: Unresponsive. TECHNIQUE: Computed tomography (CT) of the head was performed without intravenous contrast. The mA wa s adjusted according to patient size. Iterative reconstruction technique was employed. The dose-lengt h product was 529.67 mGy-cm. COMPARISON: Head CT 12/16/2021 FINDINGS: There is no intracranial hemorrhage, acute infarction, or abnormal intracranial mass lesion . The ventricles are normal in size. The orbits are normal. There is mild mucosal thickening in the p aranasal sinuses. The mastoid air cells are normal. IMPRESSION: 1. Normal brain. Reviewed, dictated and finalized at [facility]. IMPRESSION: 1. Normal brain.
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
[2021-12-29] MEDS: ONDANSETRON INJ 4 MG/2 ML VIAL IV PUSH (08:53)
[2021-12-29] MEDS: SODIUM CHLORIDE 0.9% IV 1,000 ML 999 ML IV CONT ×3 (08:54→13:19)
[2021-12-29 08:56] LABS: Basophils Absolute Auto 0.1 K/mm3 (0.0-0.1); Basophils Percent Auto 0.4 % (0.2-1.2); Eosinophils Absolute Auto 0.1 K/mm3 (0-0.3); Eosinophils Percent Auto 0.5 % (0-4.4); Hemoglobin 12.7 g/dL (12.0-15.0); Immature Granulocyte Absolute 0.07 K/mm3 (0.00-0.031); Immature Granulocyte Percent A 0.6 % (0-0.5); Lymphocytes Absolute Auto 0.76 K/mm3 (0.9-3.2); Lymphocytes Percent Auto 6.1 % (18.3-44.2); Mean Corpuscular HGB Conc 32.6 g/dl (32-36); Mean Corpuscular Hemoglobin 28.8 pg (26-34); Mean Corpuscular Volume 88.4 fl (80-100); Mean Platelet Volume 11.1 fl (7.4-10.4); Monocytes Absolute Auto 0.7 K/mm3 (0.1-0.6); Monocytes Percent Auto 5.4 % (2.6-8.5); Neutrophils Absolute Auto 10.8 K/mm3 (1.3-6.7); Platelet Count Result 201 k/mm3 (150-375); Red Blood Count 4.41 M/mm3 (4.2-5.4); Red Cell Distribution Width 12.8 % (11.5-14.5); White Blood Count 12.4 K/mm3 (4.5-10.0)
[2021-12-29 09:08] LABS: Lactic Acid Reflex 1.4 mmol/L (0.7-2.0)
[2021-12-29 09:10] LABS: Alanine Aminotransferase 14 U/L (6-35); Albumin Level 3.1 g/dL (3.5-5.1); Alkaline Phosphatase 156 U/L (38-126); Anion Gap 7 mmol/L (8-16); Aspartate Amino Transferase 20 U/L (14-36); Bilirubin,Total 0.4 mg/dL (0.2-1.3); Blood Urea Nitrogen 15 mg/dL (7-17); Calcium 8.3 mg/dL (8.4-10.2); Carbon Dioxide 30 mmol/L (22-30); Chloride 89 mmol/L (98-107); Estimated Glomerular Filt Rate > 60; Partial Thromboplastin Time 22.7 SECONDS (22.3-36.8); Potassium 4.5 mmol/L (3.4-5.0); Sodium 126 mmol/L (137-145)
[2021-12-29 09:14] LABS: Prothrombin Time 12.3 Seconds (11.1-14.7)
[2021-12-29 09:22] LABS: Glucose 1040 mg/dL (65-110)
--- NOTE | 2021-12-29 09:29 | PM.CNGS ---
Assessment and Plan Assessment and plan (1) Cellulitis of left breast: Code(s): N61.0 - Mastitis without abscess Status: Acute Assessment and Plan: Ultrasound reviewed with Radiology, no drainable collections noted, will need IV antibiotics and serial exams, will ask Wound Care to see regarding bilateral yeast infection (2) Uncontrolled diabetes mellitus: Code(s): E11.65 - Type 2 diabetes mellitus with hyperglycemia Status: Acute Assessment and Plan: will be managed by primary team, will need tight control given infection History of Present Illness Consult details Consult date: 12/29/21 Reason for consult: other ( Left breast cellulitis) Requesting physician: Tra Bunch DO Narrative: The patient is a 46 year female with multiple medical issues including diabetes presenting to the emergency complaining left breast pain, swelling, redness over the last few days. The patient reports that the pain and swelling have been progressively worsening. The patient denies any draining or open wounds. The patient does describe a bilateral fungal infection in her inframammary folds. The patient reports that she has felt generalized malaise and has had subjective fevers and chills at home. Review of Systems Constitutional: Constitutional: Reports as per HPI, Denies anorexia, Reports chills, Reports fatigue, Reports fever(s), Reports lethargy, Reports malaise, Reports poor appetite, Reports weakness, Denies weight gain and Denies weight loss Eyes: Eyes: Reports no additional eye complaints ENT: Reports system reviewed and no additional complaints, except as documented Cardiovascular: Cardiovascular: Reports no additional cardiovascular complaints Respiratory: Respiratory: Reports no additional respiratory complaints Gastrointestinal: Gastrointestinal: Reports as per HPI, Reports nausea and Reports vomiting Genitourinary: Genitourinary: Reports no additional female genitourinary complaints Musculoskeletal: Musculoskeletal: Reports no additional musculoskeletal complaints Integumentary/Breasts: Skin/Breast: Reports as per HPI Neurologic: Reports system reviewed and no additional complaints, except as documented Psychiatric: Psychiatric: Reports no additional psychiatric complaints Endocrine: Endocrine: Reports no additional endocrine complaints Hematologic/Lymphatic: Hematologic/Lymphatic: Reports no additional hematologic/lymphatic complaints Allergic/Immunologic: Allergic/Immunologic: Reports no additional allergic/immunologic complaints PMFSH Past Medical History Medical History Anemia Anxiety Arthritis Asthma Bipolar disorder COPD (chronic obstructive pulmonary disease) Depression Diabetes mellitus DVT (deep venous thrombosis) Eczema Of the scalp Epilepsy Family history of colon cancer in father Foot fracture, right GERD (gastroesophageal reflux disease) Herniated disc HTN (hypertension) Hyperlipidemia MRSA (methicillin resistant staph aureus) culture positive Obesity Pacemaker Peripheral neuropathy Pulmonary embolism Seizures Sleep apnea Suicide attempt Ulcer Uncontrolled diabetes mellitus UTI (urinary tract infection) Surgical History Surgical History History of bilateral knee replacement History of cholecystectomy Family History Family History Mother Heart disease Acute myocardial infarction Uterine cancer COVID-19 Diabetes mellitus Hypertension Kidney disease Father Heart disease Social History Social History Social History: The patient is . She has 4 children. She is living with her ex [id number]. Her children are being raised by her sister. 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 She was noted to smo
[2021-12-29] MEDS: diphenhydrAMINE HCl INJ 50 MG/ML VIAL 25 MG IV PUSH (09:36)
[2021-12-29] MEDS: INSULIN HUMAN REGULAR (*BKC) 100 UNITS/ML 8 UNITS IV PUSH (09:38)
[2021-12-29 09:40] LABS: SARS-CoV-2 RNA PCR Negative
[2021-12-29] MEDS: FAMOTIDINE 20 MG/2 ML VIAL IV PUSH (10:42)
[2021-12-29] MEDS: SODIUM CHLORIDE 0.9% IV 1,000 ML 125 ML IV CONT ×2 (10:42→19:30)
[2021-12-29] MEDS: INSULIN HUMAN REGULAR (*BKC) 100 UNITS in SODIUM CHLORIDE 0.9% IV 99 ML 19.6 UNITS IV CONT (10:46)
[2021-12-29 11:02] LABS: Glucose Point of Care > 500 mg/dl (65-105)
--- NOTE | 2021-12-29 11:46 | WPDCNINT ---
Assessment and Plan Assessment and plan (1) Cellulitis of left breast: Code(s): N61.0 - Mastitis without abscess Status: Acute Assessment and Plan: Cellulitis of the left breast, ultrasound of the left breast did not show any drainable fluid collection. Surgery following the patient -continue vancomycin and aztreonam (patient allergic to multiple medications/antibiotics) -blood cultures have been obtained and pending -since he will continue to follow (2) Acute hyperglycemia: Code(s): R73.9 - Hyperglycemia, unspecified Status: Acute Assessment and Plan: Acute hyperglycemia likely related to hyperosmolar hyperglycemic state secondary to infection and control diabetes -patient given 2 L IV fluids in the ER and started on insulin infusion -will give additional IV fluid bolus as patient looks hypovolemic -continue insulin infusion for hyperglycemia protocol (3) Acute hyponatremia: Code(s): E87.1 - Hypo-osmolality and hyponatremia Status: Acute Assessment and Plan: Pseudohyponatremia is likely secondary to significant hyperglycemia, with blood sugars of 1040 -continue to monitor BMP and sodium levels (4) COPD (chronic obstructive pulmonary disease): Code(s): J44.9 - Chronic obstructive pulmonary disease, unspecified Status: Acute Assessment and Plan: Will add home bronchodilators (5) Bipolar disorder: Code(s): F31.9 - Bipolar disorder, unspecified Status: Acute Assessment and Plan: Continue p.r.n. Xanax, which the patient takes at home (6) Peripheral neuropathy: Qualifiers: Peripheral neuropathy type: polyneuropathy, other Qualified Code(s): G62.89 - Other specified polyneuropathies Code(s): G62.9 - Polyneuropathy, unspecified Status: Acute Assessment and Plan: Continue gabapentin and Percocet p.r.n. (7) Epilepsy: Code(s): G40.909 - Epilepsy, unspecified, not intractable, without status epilepticus Status: Acute Assessment and Plan: Will continue Keppra which patient takes at home (8) Uncontrolled diabetes mellitus: Code(s): E11.65 - Type 2 diabetes mellitus with hyperglycemia Status: Acute Assessment and Plan: Obtain hemoglobin A1c -patient is on oral hypoglycemics and Basaglar at home, will hold for now and once patient is ready for transition will start her on home meds - (9) Pacemaker: Code(s): Z95.0 - Presence of cardiac pacemaker Status: Acute Assessment and Plan: Patient has a pacemaker for paroxysmal ventricular arrhythmia/tachycardia (10) History of pulmonary embolism: Code(s): Z86.711 - Personal history of pulmonary embolism Status: Acute Assessment and Plan: History of pulmonary embolism and DVTs -continue home Eliquis (11) DVT prophylaxis: Code(s): Z29.9 - Encounter for prophylactic measures, unspecified Status: Acute Assessment and Plan: On Eliquis Additional Plan Stress ulcer prophylaxis: Famotidine Nutrition: NPO except ice chips and sips with meds for now until patient is on insulin infusion Code status: Full code Critical care time spent: 44 minutes This dictation may have been done utilizing a voice recognition system. Attempts have been made to correct errors. However, there may be uncorrected grammatical, spelling, and recognition errors present. Due to a high probability of clinically significant, life threatening deterioration, the patient required my highest level of preparedness to intervene emergently and I personally spent this critical care time directly and personally managing the patient. This critical care time included obtaining a history; examining the patient; pulse oximetry; ordering and review of studies; arranging urgent treatment with development of a management plan; evaluation of patient's response to treatment; frequent reassessment; and discussions with oth
[2021-12-29 12:22] LABS: Glucose Point of Care 416 mg/dl (65-105)
--- NOTE | 2021-12-29 12:30 | PC.NURSE ---
This patient, Valerie Nguyen, was admitted to Intensive Care Unit-7. Patient/family oriented to hospital policies and general routines including ID bracelet, bed and alarms, visiting hours, pain management, procedures, bathroom and other care routines, personal items, smoking policy, room service/diet, and visiting hours. Information on how to activate the Rapid Response Team has been discussed. Patient/Family are encouraged to report perceived risks to care and to ask questions if they do not understand what they are told or what they should do.
[2021-12-29 13:19] LABS: Glucose Point of Care 288 mg/dl (65-105)
[2021-12-29] MEDS: oxyCODONE/ACETAMINOPHEN (*CRX) 5-325 MG TABLET 1 TABLET PO (13:24)
[2021-12-29] MEDS: oxyCODONE HCL (*CRX) 2.5 MG TAB IR PO (13:24)
[2021-12-29] MEDS: ATORVASTATIN 20 MG TABLET PO (13:25)
[2021-12-29] MEDS: APIXABAN 5 MG TABLET PO (13:25)
[2021-12-29] MEDS: lisinopriL 20 MG TABLET PO (13:25)
[2021-12-29] MEDS: GABAPENTIN 400 MG CAPSULE 800 MG PO (13:25)
[2021-12-29] MEDS: METOPROLOL SUCCINATE EXT REL 50 MG TABCR PO (13:26)
[2021-12-29 13:42] LABS: Anion Gap 5 mmol/L (8-16); Blood Urea Nitrogen 11 mg/dL (7-17); Calcium 7.7 mg/dL (8.4-10.2); Carbon Dioxide 28 mmol/L (22-30); Chloride 103 mmol/L (98-107); Estimated Glomerular Filt Rate > 60; Glucose 214 mg/dL (65-110); Potassium 3.4 mmol/L (3.4-5.0); Sodium 136 mmol/L (137-145)
[2021-12-29 13:47] LABS: Hemoglobin A1C > 14.0 % (<5.7)
[2021-12-29] MEDS: AZTREONAM 2 GM in SODIUM CHLORIDE 0.9% IV 100 ML 200 ML IVPB ×2 (14:07→22:11)
[2021-12-29 14:24] LABS: Glucose Point of Care 197 mg/dl (65-105)
[2021-12-29 15:19] LABS: Glucose Point of Care 163 mg/dl (65-105)
[2021-12-29] MEDS: SODIUM CHLORIDE 0.9% IV 500 ML IV CONT (17:08)
--- NOTE | 2021-12-29 17:15 | PM.IMHP ---
H&P: HPI History of Present Illness Date/Time: 12/29/21 17:15 Chief Complaint: Left breast redness and tenderness. Narrative: This is 46-year-old female with multiple medical problems including poorly-controlled insulin-dependent diabetes, hypertension, GERD, seizures, DVT and PE on chronic anticoagulation, bipolar disorder, sleep apnea, noncompliance, and other comorbidities who presented to the emergency department from home for evaluation of left breast redness and tenderness. Currently the patient is unable to provide an accurate history and as such all of the following is obtained via a review of her electronic medical records. She reportedly presented to triage today for evaluation of a painful lump on her left breast that she 1st noted approximately 4 days ago. She was apparently also complaining of numbness throughout her whole body which has been ongoing for 1 year or more. Pertinent labs today include a white blood cell count of 12.4, sodium 126, potassium 4.5, glucose 1040! On exam she was noted to have cellulitis of the left breast; no organizing abscess was noted on ultrasound. She was admitted to the ICU on insulin drip due to her severe hyperglycemia and she has also been started on broad-spectrum antibiotics. According to the nurse, the patient was awake and talking on admission. She was given Percocet 7.5/325 mg (reported as a home medication however she has never been prescribed this medication on review of her PMDP) after rating her pain 10/10. On reassessment she reports significant improvement in her pain and she slept off and on for couple of hours. She had a visitor in her room at 16:30 and fell back asleep. A proximally 45 minutes thereafter I came to evaluate her at which time she was asleep with a respiratory rate ranging between 8 and 10 breaths per minute. She was not responsive to deep sternal rub but I was able to get her to open her eyes and talk briefly with 0.4 mg of Narcan. Another 0.4 mg of Narcan was given and she did become more responsive though fell back asleep when she was no longer being asked questions. She had witnessed episodes of apnea and was placed on her CPAP with improvement in both her breathing and alertness. ABG and brain CT were unremarkable. Urine was sent for toxicology screen and came back positive for cocaine. Review of Systems Review of Systems: Unable to assess at this time. ROS unobtainable: Yes unobtainable due to medical condition [facility] Past Medical History Medical History (Updated 12/30/21 @ 00:49 by Suzy Melgar PA-C) Anemia Anxiety Arthritis Asthma Bipolar disorder Chronic anticoagulation For history of DVT and PE. Chronic obstructive pulmonary disease Chronic pain syndrome Deep venous thrombosis Depression Eczema Gastroesophageal reflux disease Herniated disc History of MRSA infection Hyperlipidemia Hypertension Insulin dependent diabetes mellitus Historically poorly controlled. Obesity Obstructive sleep apnea Non compliant with treatment. Peripheral neuropathy Pulmonary embolism Seizures Sleep apnea Suicide attempt T11 vertebral fracture Nondisplaced fracture of the right T11 inferior articulating facet. No surgical intervention required. Surgical History Surgical History (Updated 12/29/21 @ 13:45 by Suzy Melgar PA-C) History of bilateral knee replacement History of cardiac catheterization History of cardiac pacemaker For paroxysmal ventricular arrhythmia/tachycardia. History of cholecystectomy Family History Family History Mother Heart disease Acute myocardial infarction Uterine cancer COVID-19 Diabetes mellitus Hypertension Kidney disease Father Heart disease Social History Social History (Updated 12/30/21 @ 00:45 by Suzy Melgar PA-C) Social History: Code status: Full code. Smoking packs per day: 3 Smoking cigarettes per day: 60.0 Years smoked: 9 Smoking
[2021-12-29] MEDS: NALOXONE HCL 0.4 MG/ML VIAL (17:25)
[2021-12-29] MEDS: NALOXONE HCL 0.4 MG/ML VIAL IV PUSH (17:44)
[2021-12-29 17:55] LABS: Alveolar/Arterial O2 Gradient 20.4 mmHg; Base Excess ABG -1.6 mEq/l (+/-2.0); Fractional Inspired Oxygen 21 %; HCO3 ABG 23.6 mEq/l (22.0-26.0); Oxygen Content ABG 16.6 %vol (16.0-22.0); Oxygen Saturation ABG 95.6 % (95.0-100.0); PCO2 ABG 41.3 mmHg (35.0-45.0); PO2 ABG 79.9 mmHg (80.0-100.0); Total Hemoglobin 12.4 g/dL (12.0-18.0); pH ABG 7.374 (7.350-7.450)
[2021-12-29 17:57] LABS: Modified Allen's Test Pass; Site Drawn LEFT RADIAL
[2021-12-29 18:00] LABS: Glucose Point of Care 71 mg/dl (65-105)
[2021-12-29 18:00] LABS: Glucose Point of Care 97 mg/dl (65-105)
[2021-12-29 18:07] LABS: Glucose Point of Care 94 mg/dl (65-105)
[2021-12-29] MEDS: DEXTROSE 50% 25 GM/50 ML SYRINGE IV PUSH (18:16)
[2021-12-29 18:17] LABS: Anion Gap 2 mmol/L (8-16); Blood Urea Nitrogen 12 mg/dL (7-17); Calcium 7.2 mg/dL (8.4-10.2); Carbon Dioxide 27 mmol/L (22-30); Chloride 104 mmol/L (98-107); Estimated Glomerular Filt Rate > 60; Glucose 59 mg/dL (65-110); Potassium 3.7 mmol/L (3.4-5.0); Sodium 133 mmol/L (137-145)
[2021-12-29 18:35] LABS: Glucose Point of Care 150 mg/dl (65-105)
[2021-12-29 19:23] LABS: Glucose Point of Care 200 mg/dl (65-105)
[2021-12-29] MEDS: hetaSTARCH 6%/NACL 500 ML 250 ML IV CONT (21:10)
[2021-12-29] MEDS: levETIRAcetam 500MG/NACL 100ML 500 MG/100 ML BAG 400 MG IVPB (21:31)
[2021-12-29 21:37] LABS: Anion Gap 6 mmol/L (8-16); Blood Urea Nitrogen 13 mg/dL (7-17); Calcium 6.8 mg/dL (8.4-10.2); Carbon Dioxide 25 mmol/L (22-30); Chloride 100 mmol/L (98-107); Estimated Glomerular Filt Rate 60; Glucose 212 mg/dL (65-110); Potassium 4.2 mmol/L (3.4-5.0); Sodium 131 mmol/L (137-145)
[2021-12-29 21:38] LABS: Lactic Acid Reflex 1.5 mmol/L (0.7-2.0)
[2021-12-29 21:43] LABS: Appearance Urine Slightly Cloudy (Clear); Bilirubin Urine Negative (Negative); Blood Urine Trace-lysed (Negative); Color Urine Yellow (Yellow); Glucose Urine UA 2+ mg/dL (Negative); Ketones Urine Negative (Negative); Leukocyte Esterase Ur Negative LEU/UL (Negative); Nitrate Urine Negative (Negative); Protein Urine 2+ mg/dL (Negative); Specific Grav Ur <= 1.005 (1.001-1.035); Urobilinogen Urine 0.2 mg/dL (<2.0)
[2021-12-29 21:48] LABS: Amorphous Sediment Urine Few; Bacteria Urine Trace /hpf; Mucus Urine Rare /lpf; Squamous Epithelial Cell Urine Few /hpf (Few)
[2021-12-29 21:49] LABS: Add Urine Microscopic? YES
[2021-12-29 22:00] LABS: Amphetamine Screen Urine Negative (Negative); Barbiturate Screen Urine Negative (Negative); Benzodiazepines Screen Urine Negative (Negative); Cannabinoid Screen Urine Negative (Negative); Cocaine Screen Urine Positive (Negative); Methadone Screen Urine Negative (Negative); Opiate Screen Urine Negative (Negative); Phencyclidine Screen Urine Negative (Negative)
[2021-12-30] VITALS (19 sets, daily range): BP systolic 94–137; BP diastolic 5–86; PULSE 69–94; RESP 9–20; TEMP 36.6–37.8; O2SAT 91–100; BMI 11.0
[2021-12-30] MEDS: INSULIN ASPART (*BKC) 100 UNITS/ML SUB-Q ×2 (01:07→05:15)
[2021-12-30 01:13] LABS: Glucose Point of Care 317 mg/dl (65-105)
[2021-12-30 05:02] LABS: Basophils Absolute Auto 0.1 K/mm3 (0.0-0.1); Basophils Percent Auto 0.4 % (0.2-1.2); Eosinophils Absolute Auto 0.1 K/mm3 (0-0.3); Hematocrit 32.7 % (37.0-47.0); Hemoglobin 10.4 g/dL (12.0-15.0); Immature Granulocyte Absolute 0.07 K/mm3 (0.00-0.031); Immature Granulocyte Percent A 0.5 % (0-0.5); Lymphocytes Absolute Auto 1.52 K/mm3 (0.9-3.2); Lymphocytes Percent Auto 11.1 % (18.3-44.2); Mean Corpuscular HGB Conc 31.8 g/dl (32-36); Mean Corpuscular Hemoglobin 28.9 pg (26-34); Mean Corpuscular Volume 90.8 fl (80-100); Mean Platelet Volume 10.9 fl (7.4-10.4); Monocytes Absolute Auto 1.1 K/mm3 (0.1-0.6); Monocytes Percent Auto 7.9 % (2.6-8.5); Neutrophils Absolute Auto 10.9 K/mm3 (1.3-6.7); Neutrophils Percent Auto 79.1 % (45.5-73.1); Platelet Count Result 215 k/mm3 (150-375); Red Cell Distribution Width 13.2 % (11.5-14.5); White Blood Count 13.8 K/mm3 (4.5-10.0)
[2021-12-30] MEDS: SODIUM CHLORIDE 0.9% IV 1,000 ML 125 ML IV CONT ×3 (05:03→22:40)
[2021-12-30 05:14] LABS: Lactic Acid Reflex 1.6 mmol/L (0.7-2.0)
[2021-12-30] MEDS: AZTREONAM 2 GM in SODIUM CHLORIDE 0.9% IV 100 ML 200 ML IVPB ×3 (05:15→21:36)
[2021-12-30 05:17] LABS: Alanine Aminotransferase 16 U/L (6-35); Albumin Level 2.3 g/dL (3.5-5.1); Alkaline Phosphatase 126 U/L (38-126); Anion Gap 7 mmol/L (8-16); Aspartate Amino Transferase 34 U/L (14-36); Bilirubin,Total 0.2 mg/dL (0.2-1.3); Blood Urea Nitrogen 15 mg/dL (7-17); Calcium 6.4 mg/dL (8.4-10.2); Carbon Dioxide 22 mmol/L (22-30); Chloride 102 mmol/L (98-107); Estimated Glomerular Filt Rate 48; Glucose 259 mg/dL (65-110); Magnesium 2.1 mg/dL (1.6-2.3); Potassium 3.9 mmol/L (3.4-5.0); Sodium 131 mmol/L (137-145)
[2021-12-30 05:22] LABS: Glucose Point of Care 273 mg/dl (65-105)
--- NOTE | 2021-12-30 08:06 | PCRCNOTE ---
Unable to obtain ABG at this time, Physician aware.
[2021-12-30 08:11] LABS: Glucose Point of Care 185 mg/dl (65-105)
[2021-12-30] MEDS: CALCIUM GLUC 2,000 MG/NS 100ML 2,000 MG/100 ML BAG 100 MG IVPB (08:19)
[2021-12-30] MEDS: INSULIN GLARGINE (*BKC) 100 UNITS/ML 20 UNITS SUB-Q (09:30)
[2021-12-30] MEDS: levETIRAcetam 500MG/NACL 100ML 500 MG/100 ML BAG 400 MG IVPB ×2 (09:31→22:39)
--- NOTE | 2021-12-30 11:02 | PCOTNOTE ---
Attempted OT evaluation, unable to arouse patient at this time, will follow and attempt at later time.
[2021-12-30] MEDS: SODIUM CHLORIDE 0.9% XX (11:40)
[2021-12-30] MEDS: DIPHENHYDRAMINE HCL 50 MG XX (11:40)
[2021-12-30] MEDS: LIDOCAINE HCL 1% PF INJ 5 ML VIAL INFILTRATE (11:43)
[2021-12-30] MEDS: TOLNAFTATE 1% POWDER 45 GM BTL 1 APPLIC TOPICAL ×2 (13:00→22:39)
[2021-12-30 13:02] LABS: Glucose Point of Care 199 mg/dl (65-105)
[2021-12-30 13:11] LABS: Ammonia < 9 umol/L (9-30)
--- NOTE | 2021-12-30 13:11 | PM.IMPN ---
Progress Note: A&P Assessment and Plan (1) Cellulitis of left breast: Code(s): N61.0 - Mastitis without abscess Status: Acute Assessment and Plan: On aztreonam and vancomycin. Wound nurse consulted for recommendations regarding yeast. (2) Diabetes mellitus with hyperglycemia: Code(s): E11.65 - Type 2 diabetes mellitus with hyperglycemia Status: Acute Assessment and Plan: bs improved non compliant (3) Hyponatremia: Code(s): E87.1 - Hypo-osmolality and hyponatremia Status: Acute Assessment and Plan: improved (4) Chronic anticoagulation: Code(s): Z79.01 - custodial (current) use of anticoagulants Status: Acute Assessment and Plan: continue AC (5) Accidental overdose: Code(s): T50.901A - Poisoning by unspecified drugs, medicaments and biological substances, accidental (unintentional), initial encounter Status: Acute Assessment and Plan: Possible accidental overdose. Patient report taking Percocet 7.5/325 mg when medications were being reconciled. was more responsive this am but when i saw her she was sleeping (6) Obstructive sleep apnea: Code(s): G47.33 - Obstructive sleep apnea (adult) (pediatric) Status: Acute Assessment and Plan: CPAP will be provided for the patient to use while hospitalized. (7) COPD (chronic obstructive pulmonary disease): Code(s): J44.9 - Chronic obstructive pulmonary disease, unspecified Status: Acute Assessment and Plan: No acute issues. Continue maintenance inhalers. (8) Epilepsy: Code(s): G40.909 - Epilepsy, unspecified, not intractable, without status epilepticus Status: Acute Assessment and Plan: Continue levetiracetam. Subjective Date/time seen: 12/30/21 13:11 sleeping when i saw patient Exam Narrative: General: Unresponsive to deep sternal rub. HEENT: Pinpoint pupils. Tacky mucous membranes. Neck: Supple. Exam difficult due to neck circumference. Respiratory: 9-12 respirations a minute. Cardiovascular: Paced at 70. Chest: Left lateral breast is red, warm, and indurated. Gastrointestinal: Abdomen is soft and obese. Positive bowel sounds. Skin: Warm and dry. Yeast underneath breasts and inguinal creases. Dirty between toes. Extremities: No cyanosis, clubbing, or edema. Peripheral pulses intact. Neurological: Unresponsive to deep sternal rub. Not withdrawing to pain. Psychiatric: Unable to assess as she is unresponsive. Objective Data Vital Signs Vital Signs: Vital Signs - 24 hr 12/29/21 13:26 12/29/21 14:00 12/29/21 16:00 Temperature 96.2 F L 96.2 F L Pulse Rate 79 70 70 Respiratory Rate 18 12 Blood Pressure 90/55 L Pulse Oximetry 96 98 12/29/21 18:00 12/29/21 18:10 12/29/21 20:00 Temperature 97.4 F L Pulse Rate 79 62 70 Respiratory Rate 10 L 19 10 L Blood Pressure 89/52 L 92/45 L Pulse Oximetry 97 100 12/29/21 20:05 12/29/21 22:00 12/29/21 23:42 Temperature 98.5 F Pulse Rate 70 79 72 Respiratory Rate 12 12 9 L Blood Pressure 117/67 Pulse Oximetry 99 100 100 12/30/21 00:00 12/30/21 02:00 12/30/21 02:36 Temperature 98 F 98.2 F Pulse Rate 70 78 70 Respiratory Rate 11 L 11 L 11 L Blood Pressure 118/64 115/66 Pulse Oximetry 100 100 100 12/30/21 04:00 12/30/21 05:35 12/30/21 06:00 Temperature 98.7 F 99.4 F Pulse Rate 73 69 70 Respiratory Rate 15 9 L 11 L Blood Pressure 105/86 94/53 L Pulse Oximetry 100 100 100 12/30/21 08:00 12/30/21 08:09 12/30/21 10:00 Temperature 99.7 F H 100.0 F H Pulse Rate 73 75 75 Respiratory Rate 18 15 13 Blood Pressure 101/75 121/63 Pulse Oximetry 100 100 100 12/30/21 10:46 12/30/21 11:13 Temperature Pulse Rate 70 76 Respiratory Rate Blood Pressure Pulse Oximetry 100 Intake/Output Intake/Output: Intake & Output 12/27/21 12/28/21 12/29/21 12/30/21 23:59 23:59 23:59 23:59 Intake
--- NOTE | 2021-12-30 13:54 | WPDINTPN ---
Progress Note: A&P Assessment and Plan (1) Cellulitis of left breast: Code(s): N61.0 - Mastitis without abscess Status: Acute Assessment and Plan: Cellulitis of the left breast, ultrasound of the left breast did not show any drainable fluid collection. Surgery following the patient -continue vancomycin and aztreonam (patient allergic to multiple medications/antibiotics) -blood cultures have been obtained and pending -since he will continue to follow (2) Acute hyperglycemia: Code(s): R73.9 - Hyperglycemia, unspecified Status: Acute Assessment and Plan: Acute hyperglycemia likely related to hyperosmolar hyperglycemic state secondary to infection and control diabetes -patient given 2 L IV fluids in the ER and started on insulin infusion -will give additional IV fluid bolus as patient looks hypovolemic -patient was transition to long-acting insulin and sliding scale insulin on 12/29/2021. (3) Acute hyponatremia: Code(s): E87.1 - Hypo-osmolality and hyponatremia Status: Acute Assessment and Plan: Pseudohyponatremia is likely secondary to significant hyperglycemia, with blood sugars of 1040 -sodium levels improving -continue to monitor BMP and sodium levels (4) COPD (chronic obstructive pulmonary disease): Code(s): J44.9 - Chronic obstructive pulmonary disease, unspecified Status: Acute Assessment and Plan: Continue bronchodilators (5) Bipolar disorder: Code(s): F31.9 - Bipolar disorder, unspecified Status: Acute Assessment and Plan: Continue p.r.n. Xanax, which the patient takes at home (6) Peripheral neuropathy: Qualifiers: Peripheral neuropathy type: polyneuropathy, other Qualified Code(s): G62.89 - Other specified polyneuropathies Code(s): G62.9 - Polyneuropathy, unspecified Status: Acute Assessment and Plan: Patient states that her gabapentin makes her very sleepy, will continue to hold gabapentin and Percocet (7) Epilepsy: Code(s): G40.909 - Epilepsy, unspecified, not intractable, without status epilepticus Status: Acute Assessment and Plan: Continue Keppra which patient takes at home (8) Uncontrolled diabetes mellitus: Code(s): E11.65 - Type 2 diabetes mellitus with hyperglycemia Status: Acute Assessment and Plan: Hemoglobin A1c is >14., seems like patient is noncompliant -patient is on oral hypoglycemics and Basaglar at home, will hold for now and once patient is ready to take p.o. will start her on home meds - (9) Pacemaker: Code(s): Z95.0 - Presence of cardiac pacemaker Status: Acute Assessment and Plan: Patient has a pacemaker for paroxysmal ventricular arrhythmia/tachycardia (10) History of pulmonary embolism: Code(s): Z86.711 - Personal history of pulmonary embolism Status: Acute Assessment and Plan: History of pulmonary embolism and DVTs -continue home Eliquis (11) DVT prophylaxis: Code(s): Z29.9 - Encounter for prophylactic measures, unspecified Status: Acute Assessment and Plan: On Eliquis Additional Plan Stress ulcer prophylaxis: Famotidine Nutrition: Diabetic diet has been ordered but patient has been somnolent again this morning Code status: Full code Critical care time spent: 34 minutes This dictation may have been done utilizing a voice recognition system. Attempts have been made to correct errors. However, there may be uncorrected grammatical, spelling, and recognition errors present. Due to a high probability of clinically significant, life threatening deterioration, the patient required my highest level of preparedness to intervene emergently and I personally spent this critical care time directly and personally managing the patient. This critical care time included obtaining a history; examining the patient; pulse oximetry; ordering and review of studies; arranging urgent t
--- NOTE | 2021-12-30 15:12 | PM.PNGS ---
Progress Note: A&P Assessment and Plan (1) Cellulitis of left breast: Code(s): N61.0 - Mastitis without abscess Status: Acute Assessment and Plan: cont IV abx and serial exams, no drainable collection on exam today (2) Diabetes mellitus with hyperglycemia: Code(s): E11.65 - Type 2 diabetes mellitus with hyperglycemia Status: Acute Assessment and Plan: needs good control given infection Subjective Subjective Date/Time Seen: 12/30/21 15:12 no acute issues yesterday, L breast pain, swelling better Review of Systems Review of Systems: All systems reviewed & are unremarkable except as noted in HPI and below Exam Const: General: ill appearing Nutritional Appearance: obese Chest: Other: L breast cellulitis - improved, decreased pain Resp: Auscultation: clear to auscultation bilaterally Cardio: Rate: regular rate Rhythm: regular rhythm GI: Inspection: normal to inspection GI Palp: Yes Soft to palpation and No Tenderness to palpation present (GI) Objective Data Vital Signs Vital Signs: Vital Signs - 24 hr 12/29/21 16:00 12/29/21 18:00 12/29/21 18:10 Temperature 35.7 C L Pulse Rate 70 79 62 Respiratory Rate 12 10 L 19 Blood Pressure 90/55 L 89/52 L Pulse Oximetry 98 97 12/29/21 20:00 12/29/21 20:05 12/29/21 22:00 Temperature 36.3 C L 36.9 C Pulse Rate 70 70 79 Respiratory Rate 10 L 12 12 Blood Pressure 92/45 L 117/67 Pulse Oximetry 100 99 100 12/29/21 23:42 12/30/21 00:00 12/30/21 02:00 Temperature 36.6 C 36.8 C Pulse Rate 72 70 78 Respiratory Rate 9 L 11 L 11 L Blood Pressure 118/64 115/66 Pulse Oximetry 100 100 100 12/30/21 02:36 12/30/21 04:00 12/30/21 05:35 Temperature 37.1 C Pulse Rate 70 73 69 Respiratory Rate 11 L 15 9 L Blood Pressure 105/86 Pulse Oximetry 100 100 100 12/30/21 06:00 12/30/21 08:00 12/30/21 08:09 Temperature 37.4 C 37.6 C H Pulse Rate 70 73 75 Respiratory Rate 11 L 18 15 Blood Pressure 94/53 L 101/75 Pulse Oximetry 100 100 100 12/30/21 10:00 12/30/21 10:46 12/30/21 11:13 Temperature 37.8 C H Pulse Rate 75 70 76 Respiratory Rate 13 Blood Pressure 121/63 Pulse Oximetry 100 100 12/30/21 12:00 12/30/21 14:00 Temperature 37.7 C H Pulse Rate 77 79 Respiratory Rate 12 Blood Pressure 108/79 Pulse Oximetry 100 Intake/Output Intake/Output: Intake & Output 12/27/21 12/28/21 12/29/21 12/30/21 23:59 23:59 23:59 23:59 Intake Total 5500 2100 Output Total 650 Balance 5500 1450 Meds/Results Medications: Active Medications Generic Name Dose Route Start Last Admin Trade Name Freq PRN Reason Stop Dose Admin Albuterol 2 puff 12/29/21 12:32 Albuterol Sulfate (*Sp) Aerosol 1 Puff INHALATION Q6H PRN shortness of breath or wheezing Alprazolam 1 mg 12/29/21 12:32 Alprazolam (*Crx) 0.5 Mg Tablet PO TID PRN Anxiety Apixaban 5 mg 12/29/21 12:50 12/29/21 13:25 Apixaban 5 Mg Tablet PO 5 mg DAILY RAMONE Administration Atorvastatin Calcium 20 mg 12/29/21 12:50 12/29/21 13:25 Atorvastatin 20 Mg Tablet PO 20 mg DAILY RAMONE Administration Dextrose 12.5 gm 12/29/21 18:04 12/29/21 18:16 Dextrose 50% 25 Gm/50 Ml Syringe IV PUSH 12.5 gm PRN PRN Administration Hypoglycemia Protocol Famotidine 20 mg 12/29/21 17:00 12/29/21 19:20 Famotidine 20 Mg Tablet PO Not Given BID RAMONE Fluticasone Propionate 2 spray 12/29/21 12:50 12/29/21 13:25 Fluticasone Propionate 0.05% Na Spr 16 Gm Btl (*Bkc) NASAL Not Given DAILY RAMONE Gabapentin 800 mg 12/29/21 13:00 12/30/21 11:13 Gabapentin 400 Mg Capsule PO Not Given QID RAMONE Glucagon 1 mg 12/29/21 18:04 Glucagon For Inj 1 Mg Vial IM PRN PRN Hypoglycemia Protocol Glucose 15 gm 12/29/21 18:04 Glucose Oral Gel 15 Gm Of Glucse In 37.5 Gm Tube PO PRN PRN Hypoglycemia Protocol Sodium Chloride 1,000 mls @ 125 mls/h
[2021-12-30] MEDS: ATORVASTATIN 20 MG TABLET PO (16:17)
[2021-12-30] MEDS: APIXABAN 5 MG TABLET PO (16:17)
[2021-12-30] MEDS: FAMOTIDINE 20 MG TABLET PO (16:18)
[2021-12-30] MEDS: CENTRAL LINE FLUSH 10 ML IV PUSH ×2 (16:18→22:41)
[2021-12-30 17:25] LABS: Glucose Point of Care 167 mg/dl (65-105)
[2021-12-30 20:09] LABS: Glucose Point of Care 272 mg/dl (65-105)
--- NOTE | 2021-12-30 20:27 | PC.NURSE ---
patients o2 sat dropped down into the upper 30's and 40's on room air. patient is lethargic. called respiratory to place patient on c-pap. patient started screaming and yelling, cursing. patient was refusing to wear c-pap. but then she would become lethargic again. every time we tried to place c-pap she would refuse. had the talk about dnr status since patient was being uncooperative. patient was stating that she didn't want to . wanted us to do everything for her but was refusing to wear c-pap. finally convinced her to wear for a while. will continue to monitor. 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
--- NOTE | 2021-12-30 22:42 | PCRCNOTE ---
Rt got called into room due to Patients 02 saturation dropping into the 40's while sleeping. Patient was very lethargic & CPAP mask was attempted due to the patients sleep apnea, Patient then showed singes of aggression by screaming and cursing out that she did not want the help and would not wear CPAP. Patient eventually agreed to the CPAP, but did not stay on long. Since refusing CPAP, a 2 L NC was placed for oxygenation at this time. Nurse & notified at this time.
[2021-12-31] VITALS (13 sets, daily range): BP systolic 102–131; BP diastolic 46–61; PULSE 62–92; RESP 16–21; TEMP 36.1–36.8; O2SAT 96–100
[2021-12-31] MEDS: AZTREONAM 2 GM in SODIUM CHLORIDE 0.9% IV 100 ML 200 ML IVPB ×3 (06:05→20:26)
[2021-12-31] MEDS: CENTRAL LINE FLUSH 10 ML IV PUSH ×3 (06:06→20:25)
[2021-12-31 06:10] LABS: Basophils Percent Auto 0.3 % (0.2-1.2); Eosinophils Absolute Auto 0.1 K/mm3 (0-0.3); Eosinophils Percent Auto 0.8 % (0-4.4); Hematocrit 28.9 % (37.0-47.0); Hemoglobin 9.3 g/dL (12.0-15.0); Immature Granulocyte Absolute 0.06 K/mm3 (0.00-0.031); Immature Granulocyte Percent A 0.6 % (0-0.5); Lymphocytes Absolute Auto 1.25 K/mm3 (0.9-3.2); Lymphocytes Percent Auto 12.5 % (18.3-44.2); Mean Corpuscular HGB Conc 32.2 g/dl (32-36); Mean Corpuscular Hemoglobin 29.1 pg (26-34); Mean Corpuscular Volume 90.3 fl (80-100); Mean Platelet Volume 10.7 fl (7.4-10.4); Monocytes Absolute Auto 0.7 K/mm3 (0.1-0.6); Neutrophils Absolute Auto 7.9 K/mm3 (1.3-6.7); Neutrophils Percent Auto 78.8 % (45.5-73.1); Platelet Count Result 208 k/mm3 (150-375); Red Cell Distribution Width 13.3 % (11.5-14.5)
[2021-12-31 06:16] LABS: Alanine Aminotransferase 12 U/L (6-35); Alkaline Phosphatase 112 U/L (38-126); Ammonia < 9 umol/L (9-30); Anion Gap 2 mmol/L (8-16); Aspartate Amino Transferase 15 U/L (14-36); Bilirubin,Total 0.1 mg/dL (0.2-1.3); Blood Urea Nitrogen 24 mg/dL (7-17); Carbon Dioxide 20 mmol/L (22-30); Chloride 108 mmol/L (98-107); Estimated Glomerular Filt Rate 48; Glucose 282 mg/dL (65-110); Magnesium 1.9 mg/dL (1.6-2.3); Phosphorus 2.8 mg/dL (2.5-4.5); Potassium 4.1 mmol/L (3.4-5.0); Sodium 130 mmol/L (137-145)
[2021-12-31] MEDS: INSULIN ASPART (*BKC) 100 UNITS/ML SUB-Q ×3 (06:45→17:30)
[2021-12-31 07:59] LABS: Glucose Point of Care 290 mg/dl (65-105)
[2021-12-31] MEDS: FAMOTIDINE 20 MG TABLET PO ×2 (09:35→17:30)
[2021-12-31] MEDS: APIXABAN 5 MG TABLET PO (09:37)
[2021-12-31] MEDS: ATORVASTATIN 20 MG TABLET PO (09:37)
[2021-12-31] MEDS: levETIRAcetam 500MG/NACL 100ML 500 MG/100 ML BAG 400 MG IVPB ×2 (09:37→20:24)
[2021-12-31] MEDS: INSULIN GLARGINE (*BKC) 100 UNITS/ML 20 UNITS SUB-Q (09:38)
[2021-12-31] MEDS: TOLNAFTATE 1% POWDER 45 GM BTL 1 APPLIC TOPICAL ×2 (09:38→20:27)
[2021-12-31] MEDS: FLUTICASONE PROPIONATE 0.05% NA SPR 16 GM BTL (*BKC) 2 SPRAY NASAL (09:40)
--- NOTE | 2021-12-31 10:52 | PM.PNGS ---
Progress Note: A&P Assessment and Plan (1) Cellulitis of left breast: Code(s): N61.0 - Mastitis without abscess Status: Acute Assessment and Plan: improving, ok to change to po abx and plan for discharge, cont local wound care Subjective Subjective Date/Time Seen: 12/31/21 10:52 c/o weakness, swelling Review of Systems Review of Systems: All systems reviewed & are unremarkable except as noted in HPI and below Exam Const: General: cooperative, comfortable, no acute distress and ill appearing Chest: Other: L breast - induration and cellulitis improved, mod TTP Resp: Auscultation: clear to auscultation bilaterally Cardio: Rate: regular rate Rhythm: regular rhythm GI: Inspection: normal to inspection and non-distended Objective Data Vital Signs Vital Signs: Vital Signs - 24 hr 12/30/21 11:13 12/30/21 12:00 12/30/21 12:00 Temperature 37.7 C H Pulse Rate 76 77 77 Respiratory Rate 12 Blood Pressure 108/79 Pulse Oximetry 100 Oxygen Delivery Oxygen Flow Rate Fraction of Inspired Oxygen 12/30/21 12:00 12/30/21 14:00 12/30/21 15:10 Temperature Pulse Rate 79 Respiratory Rate Blood Pressure Pulse Oximetry 100 Oxygen Delivery CPAP Room Air Oxygen Flow Rate Fraction of Inspired Oxygen 12/30/21 15:10 12/30/21 16:00 12/30/21 16:00 Temperature 37.2 C Pulse Rate 84 72 Respiratory Rate 18 Blood Pressure 137/62 Pulse Oximetry 98 Oxygen Delivery Nasal Cannula Oxygen Flow Rate 2 Fraction of Inspired Oxygen 12/30/21 16:00 12/30/21 18:00 12/30/21 19:59 Temperature Pulse Rate 93 Respiratory Rate 14 Blood Pressure Pulse Oximetry 100 97 Oxygen Delivery CPAP CPAP Oxygen Flow Rate Fraction of Inspired Oxygen 12/30/21 20:12 12/30/21 20:00 12/30/21 20:00 Temperature 36.7 C Pulse Rate 88 94 Respiratory Rate 20 20 Blood Pressure 102/5 L Pulse Oximetry 96 91 96 Oxygen Delivery Room Air Room Air Oxygen Flow Rate Fraction of Inspired Oxygen 12/30/21 20:00 12/30/21 22:00 12/31/21 00:00 Temperature Pulse Rate 94 85 81 Respiratory Rate Blood Pressure Pulse Oximetry Oxygen Delivery Oxygen Flow Rate Fraction of Inspired Oxygen 12/31/21 00:00 12/31/21 00:00 12/31/21 02:00 Temperature 36.7 C Pulse Rate 81 62 78 Respiratory Rate 20 18 Blood Pressure 110/61 Pulse Oximetry 96 96 Oxygen Delivery Nasal Cannula Oxygen Flow Rate 2 Fraction of Inspired Oxygen 12/31/21 02:38 12/31/21 02:42 12/31/21 04:00 Temperature 36.5 C Pulse Rate 77 77 77 Respiratory Rate 18 20 Blood Pressure 106/58 L Pulse Oximetry 96 98 Oxygen Delivery Nasal Cannula Oxygen Flow Rate 2 Fraction of Inspired Oxygen 12/31/21 06:00 12/31/21 08:17 Temperature 36.3 C L Pulse Rate 72 74 Respiratory Rate 21 H Blood Pressure 102/60 Pulse Oximetry 100 Oxygen Delivery Oxygen Flow Rate Fraction of Inspired Oxygen Intake/Output Intake/Output: Intake & Output 12/28/21 12/29/21 12/30/21 12/31/21 23:59 23:59 23:59 23:59 Intake Total 5500 3870 490 Output Total 800 250 Balance 5500 3070 240 Meds/Results Medications: Active Medications Generic Name Dose Route Start Last Admin Trade Name Freq PRN Reason Stop Dose Admin Albuterol 2 puff 12/29/21 12:32 Albuterol Sulfate (*Sp) Aerosol 1 Puff INHALATION Q6H PRN shortness of breath or wheezing Alprazolam 1 mg 12/29/21 12:32 Alprazolam (*Crx) 0.5 Mg Tablet PO TID PRN Anxiety Apixaban 5 mg 12/29/21 12:50 12/31/21 09:37 Apixaban 5 Mg Tablet PO 5 mg DAILY RAMONE Administration Atorvastatin Calcium 20 mg 12/29/21 12:50 12/31/21 09:37 Atorvastatin 20 Mg Tablet PO 20 mg DAILY RAMONE Administration Dextrose 12.5 gm 12/29/21 18:04 12/29/21 18:16 Dextrose 50% 25 Gm/50 Ml Syringe IV PUSH 12.5 gm PRN PRN Administration Hypoglyce
[2021-12-31 12:07] LABS: Glucose Point of Care 298 mg/dl (65-105)
--- NOTE | 2021-12-31 12:14 | PM.IMPN ---
Progress Note: A&P Assessment and Plan (1) Cellulitis of left breast: Code(s): N61.0 - Mastitis without abscess Status: Acute Assessment and Plan: Cellulitis of the left breast, ultrasound of the left breast did not show any drainable fluid collection. Surgery following the patient -continue vancomycin and aztreonam (patient allergic to multiple medications/antibiotics) -blood cultures have been obtained and pending -since he will continue to follow - Monitor labs leukocytosis improved (2) Acute hyperglycemia: Code(s): R73.9 - Hyperglycemia, unspecified Status: Acute Assessment and Plan: improved, monitor blood sugars and give insulin as needed. (3) Acute hyponatremia: Code(s): E87.1 - Hypo-osmolality and hyponatremia Status: Acute Assessment and Plan: Pseudohyponatremia is likely secondary to significant hyperglycemia, with blood sugars of 1040 -sodium levels improving -continue to monitor BMP and sodium levels (4) COPD (chronic obstructive pulmonary disease): Code(s): J44.9 - Chronic obstructive pulmonary disease, unspecified Status: Acute Assessment and Plan: Continue bronchodilators (5) Bipolar disorder: Code(s): F31.9 - Bipolar disorder, unspecified Status: Acute Assessment and Plan: Continue p.r.n. Xanax, which the patient takes at home (6) Peripheral neuropathy: Qualifiers: Peripheral neuropathy type: polyneuropathy, other Qualified Code(s): G62.89 - Other specified polyneuropathies Code(s): G62.9 - Polyneuropathy, unspecified Status: Acute Assessment and Plan: Patient states that her gabapentin makes her very sleepy, will continue to hold gabapentin and Percocet (7) Epilepsy: Code(s): G40.909 - Epilepsy, unspecified, not intractable, without status epilepticus Status: Acute Assessment and Plan: Continue Keppra which patient takes at home (8) Uncontrolled diabetes mellitus: Code(s): E11.65 - Type 2 diabetes mellitus with hyperglycemia Status: Acute Assessment and Plan: Hemoglobin A1c is >14., seems like patient is noncompliant -patient is on oral hypoglycemics and Basaglar at home, will hold for now and once patient is ready to take p.o. will start her on home meds - (9) Pacemaker: Code(s): Z95.0 - Presence of cardiac pacemaker Status: Acute Assessment and Plan: Patient has a pacemaker for paroxysmal ventricular arrhythmia/tachycardia (10) History of pulmonary embolism: Code(s): Z86.711 - Personal history of pulmonary embolism Status: Acute Assessment and Plan: History of pulmonary embolism and DVTs -continue home Eliquis (11) DVT prophylaxis: Code(s): Z29.9 - Encounter for prophylactic measures, unspecified Status: Acute Assessment and Plan: On Eliquis Additional Plan Stress ulcer prophylaxis: Famotidine Nutrition: Diabetic diet has been ordered but patient has been somnolent again this morning Code status: Full code Critical care time spent: 34 minutes This dictation may have been done utilizing a voice recognition system. Attempts have been made to correct errors. However, there may be uncorrected grammatical, spelling, and recognition errors present. Due to a high probability of clinically significant, life threatening deterioration, the patient required my highest level of preparedness to intervene emergently and I personally spent this critical care time directly and personally managing the patient. This critical care time included obtaining a history; examining the patient; pulse oximetry; ordering and review of studies; arranging urgent treatment with development of a management plan; evaluation of patient's response to treatment; frequent reassessment; and discussions with other providers. It was exclusive of separately billable procedures and treating other patients and tea
--- NOTE | 2021-12-31 15:16 | PC.NURSE ---
This patient, Valerie Nguyen, was transferred to [[id number] ] on 12/31/21 at 1447. Personal belongings sent with patient. Report given to [Spencer SANTILLAN ]. Appropriate documentation sent with patient.
[2021-12-31] MEDS: FUROSEMIDE 20 MG TABLET PO (15:18)
[2021-12-31 16:38] LABS: Glucose Point of Care 328 mg/dl (65-105)
[2021-12-31] MEDS: HYDROcodone/acetaminophen (*CRX) 5-325 MG TABLET 1 TAB PO (19:01)
[2021-12-31 21:15] LABS: Glucose Point of Care 334 mg/dl (65-105)
[2022-01-01 04:22] VITALS: BP 102/78; PULSE 89; RESP 18; TEMP 36.6; O2SAT 100
[2022-01-01] MEDS: AZTREONAM 2 GM in SODIUM CHLORIDE 0.9% IV 100 ML 200 ML IVPB (06:54)
[2022-01-01] MEDS: CENTRAL LINE FLUSH 10 ML IV PUSH ×2 (06:54→20:25)
[2022-01-01 07:33] LABS: Glucose Point of Care 262 mg/dl (65-105)
[2022-01-01] MEDS: ALPRAZolam (*CRX) 0.5 MG TABLET 1 MG PO ×2 (07:46→20:06)
[2022-01-01] MEDS: INSULIN ASPART (*BKC) 100 UNITS/ML SUB-Q (08:24)
[2022-01-01] MEDS: INSULIN GLARGINE (*BKC) 100 UNITS/ML 20 UNITS SUB-Q (08:25)
[2022-01-01] MEDS: TOLNAFTATE 1% POWDER 45 GM BTL 1 APPLIC TOPICAL ×2 (08:25→20:04)
[2022-01-01] MEDS: APIXABAN 5 MG TABLET PO (08:26)
[2022-01-01] MEDS: FAMOTIDINE 20 MG TABLET PO (08:26)
[2022-01-01] MEDS: FLUTICASONE PROPIONATE 0.05% NA SPR 16 GM BTL (*BKC) 2 SPRAY NASAL (08:26)
[2022-01-01] MEDS: ATORVASTATIN 20 MG TABLET PO (08:26)
[2022-01-01] MEDS: levETIRAcetam 500MG/NACL 100ML 500 MG/100 ML BAG 400 MG IVPB (09:27)
--- NOTE | 2022-01-01 09:54 | PM.PNGS ---
Progress Note: A&P Assessment and Plan (1) Cellulitis of left breast: Code(s): N61.0 - Mastitis without abscess Status: Acute Assessment and Plan: improved, cont abx as outpt, f/u 2 wks p dc Subjective Subjective Date/Time Seen: 01/01/22 09:54 feels better today, less pain, swelling Review of Systems Review of Systems: All systems reviewed & are unremarkable except as noted in HPI and below Exam Chest: Other: L breast - induration largely unchanged, cellulitis better, decreased TTP, no fluctuance Resp: Auscultation: clear to auscultation bilaterally Cardio: Rate: regular rate Rhythm: regular rhythm GI: Other: soft, NT Objective Data Vital Signs Vital Signs: Vital Signs - 24 hr 12/31/21 10:00 12/31/21 12:10 12/31/21 12:00 Temperature 36.1 C L Pulse Rate 82 86 75 Respiratory Rate 18 Blood Pressure 112/58 L Pulse Oximetry 100 12/31/21 16:00 12/31/21 20:18 01/01/22 04:22 Temperature 36.5 C 36.8 C 36.6 C Pulse Rate 92 80 89 Respiratory Rate 16 16 18 Blood Pressure 131/46 L 111/57 L 102/78 Pulse Oximetry 98 99 100 Intake/Output Intake/Output: Intake & Output 12/29/21 12/30/21 12/31/21 01/01/22 23:59 23:59 23:59 23:59 Intake Total 5500 3870 2260 730 Output Total 800 850 950 Balance 5500 3070 1410 -220 Meds/Results Medications: Active Medications Generic Name Dose Route Start Last Admin Trade Name Freq PRN Reason Stop Dose Admin Albuterol 2 puff 12/29/21 12:32 Albuterol Sulfate (*Sp) Aerosol 1 Puff INHALATION Q6H PRN shortness of breath or wheezing Alprazolam 1 mg 12/29/21 12:32 01/01/22 07:46 Alprazolam (*Crx) 0.5 Mg Tablet PO 1 mg TID PRN Administration Anxiety Apixaban 5 mg 12/29/21 12:50 01/01/22 08:26 Apixaban 5 Mg Tablet PO 5 mg DAILY RAMONE Administration Atorvastatin Calcium 20 mg 12/29/21 12:50 01/01/22 08:26 Atorvastatin 20 Mg Tablet PO 20 mg DAILY RAMONE Administration Dextrose 12.5 gm 12/29/21 18:04 12/29/21 18:16 Dextrose 50% 25 Gm/50 Ml Syringe IV PUSH 12.5 gm PRN PRN Administration Hypoglycemia Protocol Famotidine 20 mg 12/29/21 17:00 01/01/22 08:26 Famotidine 20 Mg Tablet PO 20 mg BID RAMONE Administration Fluticasone Propionate 2 spray 12/29/21 12:50 01/01/22 08:26 Fluticasone Propionate 0.05% Na Spr 16 Gm Btl (*Bkc) NASAL 2 spray DAILY RAMONE Administration Gabapentin 800 mg 12/29/21 13:00 12/30/21 11:13 Gabapentin 400 Mg Capsule PO Not Given QID RAMONE Glucagon 1 mg 12/29/21 18:04 Glucagon For Inj 1 Mg Vial IM PRN PRN Hypoglycemia Protocol Glucose 15 gm 12/29/21 18:04 Glucose Oral Gel 15 Gm Of Glucse In 37.5 Gm Tube PO PRN PRN Hypoglycemia Protocol Aztreonam 2 gm/ Sodium 100 mls @ 200 mls/hr 12/29/21 14:00 01/01/22 06:54 Chloride IVPB 200 mls/hr Q8H RAMONE Administration Dextrose 1,000 mls @ 100 mls/hr 12/29/21 18:04 Dextrose 5% 1,000 Ml IVPB PRN PRN Hypoglycemia Protocol Levetiracetam 500 mg in 100 mls @ 400 mls/hr 12/29/21 21:00 01/01/22 09:27 Keppra Iv IVPB 400 mls/hr Q12HR RAMONE Administration Vancomycin HCl 1,250 mg in 250 mls @ 200 mls/hr 12/30/21 23:00 12/31/21 17:31 Vancomycin 1,250 Mg/D5w 250 Ml IVPB 250 mls/hr Q18H RAMONE Administration Insulin Aspart 3 - 6 units 12/31/21 17:00 01/01/22 08:24 Insulin Aspart (*Bkc) 100 Units/Ml SUB-Q 4 units TIDWM RAMONE Administration Protocol Insulin Glargine 20 units 12/30/21 09:00 01/01/22 08:25 Insulin Glargine (*Bkc) 100 Units/Ml SUB-Q 20 units DAILY RAMONE Administration Lisinopril 20 mg 12/29/21 12:50 12/30/21 11:13 Lisinopril 20 Mg Tablet PO Not Given DAILY RAMONE Loratadine 10 mg 12/29/21 12:32 Loratadine 10 Mg Tablet PO DAILY PRN allergy symptoms Metoprolol Succinate 50 mg 12/29/21 12:50 12/30/21 11:13 Metoprolol Succinate Ext Rel
--- NOTE | 2022-01-01 13:26 | PCPTNOTE ---
Patient very verbally agitated cursing at staff when staff attempts to educate and explain medical and safety concerns with patient. 35 min spent with patient trying to educate patient and instruct patient in safety while patient continuously made phone calls, cursed at staff, and c/o not being discharge. PUBLIC HEALTH ASSISTANT and Personal Caregiver also present at this time.
[2022-01-01 14:00] VITALS: BP 149/83; PULSE 109; RESP 16; TEMP 36.6; O2SAT 100
[2022-01-01 14:17] LABS: Glucose Point of Care 179 mg/dl (65-105)
--- NOTE | 2022-01-01 16:30 | PM.IMPN ---
Progress Note: A&P Assessment and Plan (1) Cellulitis of left breast: Code(s): N61.0 - Mastitis without abscess Status: Acute Assessment and Plan: Cellulitis of the left breast, ultrasound of the left breast did not show any drainable fluid collection. Surgery following the patient -continue vancomycin and aztreonam (patient allergic to multiple medications/antibiotics) -blood cultures have been obtained and pending -since he will continue to follow - Monitor labs leukocytosis improved 01/01/2022 interval history: patient remains clinically stable, seen by surgery there is no abscess in the left breast, blood culture culture is not growing so far seen by surgery service recommended to deescalate antibiotic to oral, will stop aztreonam and vancomycin,will start the patient on Levaquin, patient blood sugars are trending down and control, now on now on long-acting Lantus 20 units at the bedtime, and sliding scale plan was to discharge the patient home today, however patient is very unsteady in her feet and patient is not very keen to work with Physical exam nor patient wants to be discharged to [facility]iary, will continue to monitor and further recommendation to follow (2) Acute hyperglycemia: Code(s): R73.9 - Hyperglycemia, unspecified Status: Acute Assessment and Plan: improved, monitor blood sugars and give insulin as needed. (3) Acute hyponatremia: Code(s): E87.1 - Hypo-osmolality and hyponatremia Status: Acute Assessment and Plan: Pseudohyponatremia is likely secondary to significant hyperglycemia, with blood sugars of 1040 -sodium levels improving -continue to monitor BMP and sodium levels (4) COPD (chronic obstructive pulmonary disease): Code(s): J44.9 - Chronic obstructive pulmonary disease, unspecified Status: Acute Assessment and Plan: Continue bronchodilators (5) Bipolar disorder: Code(s): F31.9 - Bipolar disorder, unspecified Status: Acute Assessment and Plan: Continue p.r.n. Xanax, which the patient takes at home (6) Peripheral neuropathy: Qualifiers: Peripheral neuropathy type: polyneuropathy, other Qualified Code(s): G62.89 - Other specified polyneuropathies Code(s): G62.9 - Polyneuropathy, unspecified Status: Acute Assessment and Plan: Patient states that her gabapentin makes her very sleepy, will continue to hold gabapentin and Percocet (7) Epilepsy: Code(s): G40.909 - Epilepsy, unspecified, not intractable, without status epilepticus Status: Acute Assessment and Plan: Continue Keppra which patient takes at home (8) Uncontrolled diabetes mellitus: Code(s): E11.65 - Type 2 diabetes mellitus with hyperglycemia Status: Acute Assessment and Plan: Hemoglobin A1c is >14., seems like patient is noncompliant -patient is on oral hypoglycemics and Basaglar at home, will hold for now and once patient is ready to take p.o. will start her on home meds - (9) Pacemaker: Code(s): Z95.0 - Presence of cardiac pacemaker Status: Acute Assessment and Plan: Patient has a pacemaker for paroxysmal ventricular arrhythmia/tachycardia (10) History of pulmonary embolism: Code(s): Z86.711 - Personal history of pulmonary embolism Status: Acute Assessment and Plan: History of pulmonary embolism and DVTs -continue home Eliquis (11) DVT prophylaxis: Code(s): Z29.9 - Encounter for prophylactic measures, unspecified Status: Acute Assessment and Plan: On Eliquis Subjective Date/time seen: 01/01/22 16:31 Cellulitis of the left breast, ultrasound of the left breast did not show any drainable fluid collection.? Surgery following the patient -continue vancomycin and aztreonam (patient allergic to multiple medications/antibiotics) -blood cultures have been obtained and pending -since he will continue to follow -? M
[2022-01-01 16:38] LABS: Glucose Point of Care 196 mg/dl (65-105)
[2022-01-01 19:57] VITALS: BP 135/67; PULSE 111; RESP 18; TEMP 36.2; O2SAT 96
[2022-01-01] MEDS: levETIRAcetam 500 MG TABLET PO (20:02)
[2022-01-01 20:09] VITALS: O2SAT 96
--- NOTE | 2022-01-01 20:11 | PCRCNOTE ---
Pt refusing CPAP. Nurse is aware that pt is refusing and will call if CPAP becomes necessary due to overnight O2 desaturation.
[2022-01-01 20:51] LABS: Glucose Point of Care 203 mg/dl (65-105)
[2022-01-02 04:44] VITALS: BP 143/66; PULSE 87; RESP 18; TEMP 36.6; O2SAT 96
[2022-01-02] MEDS: CENTRAL LINE FLUSH 20 ML IV PUSH (04:53)
[2022-01-02] MEDS: CENTRAL LINE FLUSH 10 ML IV PUSH ×2 (04:53→13:45)
[2022-01-02 05:22] LABS: Estimated Glomerular Filt Rate > 60
[2022-01-02 07:43] LABS: Glucose Point of Care 164 mg/dl (65-105)
[2022-01-02] MEDS: LORATADINE 10 MG TABLET PO (09:35)
[2022-01-02] MEDS: FAMOTIDINE 20 MG TABLET PO (09:35)
[2022-01-02] MEDS: levoFLOXacin 500 MG TABLET PO (09:35)
[2022-01-02] MEDS: levETIRAcetam 500 MG TABLET PO (09:35)
[2022-01-02] MEDS: ATORVASTATIN 20 MG TABLET PO (09:36)
[2022-01-02] MEDS: APIXABAN 5 MG TABLET PO (09:36)
[2022-01-02] MEDS: FLUTICASONE PROPIONATE 0.05% NA SPR 16 GM BTL (*BKC) 2 SPRAY NASAL (09:37)
[2022-01-02] MEDS: TOLNAFTATE 1% POWDER 45 GM BTL 1 APPLIC TOPICAL (09:37)
[2022-01-02] MEDS: INSULIN GLARGINE (*BKC) 100 UNITS/ML 20 UNITS SUB-Q (09:40)
[2022-01-02 11:37] LABS: Glucose Point of Care 204 mg/dl (65-105)
[2022-01-02] MEDS: INSULIN ASPART (*BKC) 100 UNITS/ML SUB-Q (11:57)
--- NOTE | 2022-01-02 12:56 | PM.PNGS ---
Progress Note: A&P Assessment and Plan (1) Cellulitis of left breast: Code(s): N61.0 - Mastitis without abscess Status: Acute Assessment and Plan: improved, cont local wound care, abx as outpt, f/u 2 wks (2) Insulin dependent diabetes mellitus: Status: Acute Assessment and Plan: will need better control, mgmt per PCP Subjective Subjective Date/Time Seen: 01/02/22 12:56 feels ok, still c some breast pain but improved Review of Systems Review of Systems: All systems reviewed & are unremarkable except as noted in HPI and below Exam Const: General: comfortable, no acute distress and ill appearing Chest: Other: R breast - area of induration still present but sl improved, cellulitis largely resolved, mild TTP, no fluctuance Resp: Auscultation: clear to auscultation bilaterally Cardio: Rate: regular rate Rhythm: regular rhythm GI: Inspection: normal to inspection Objective Data Vital Signs Vital Signs: Vital Signs - 24 hr 01/01/22 14:00 01/01/22 19:57 01/01/22 20:09 Temperature 36.6 C 36.2 C L Pulse Rate 109 H 111 H Respiratory Rate 16 18 Blood Pressure 149/83 H 135/67 Pulse Oximetry 100 96 96 Oxygen Delivery Room Air 01/02/22 04:44 01/02/22 09:49 Temperature 36.6 C Pulse Rate 87 Respiratory Rate 18 Blood Pressure 143/66 H Pulse Oximetry 96 Oxygen Delivery Room Air Intake/Output Intake/Output: Intake & Output 12/30/21 12/31/21 01/01/22 01/02/22 23:59 23:59 23:59 23:59 Intake Total 3870 2260 1730 920 Output Total 800 850 950 Balance 3070 1410 780 920 Meds/Results Medications: Active Medications Generic Name Dose Route Start Last Admin Trade Name Freq PRN Reason Stop Dose Admin Albuterol 2 puff 12/29/21 12:32 Albuterol Sulfate (*Sp) Aerosol 1 Puff INHALATION Q6H PRN shortness of breath or wheezing Alprazolam 1 mg 12/29/21 12:32 01/01/22 20:06 Alprazolam (*Crx) 0.5 Mg Tablet PO 1 mg TID PRN Administration Anxiety Apixaban 5 mg 12/29/21 12:50 01/02/22 09:36 Apixaban 5 Mg Tablet PO 5 mg DAILY RAMONE Administration Atorvastatin Calcium 20 mg 12/29/21 12:50 01/02/22 09:36 Atorvastatin 20 Mg Tablet PO 20 mg DAILY RAMONE Administration Dextrose 12.5 gm 12/29/21 18:04 12/29/21 18:16 Dextrose 50% 25 Gm/50 Ml Syringe IV PUSH 12.5 gm PRN PRN Administration Hypoglycemia Protocol Famotidine 20 mg 12/29/21 17:00 01/02/22 09:35 Famotidine 20 Mg Tablet PO 20 mg BID RAMONE Administration Fluticasone Propionate 2 spray 12/29/21 12:50 01/02/22 09:37 Fluticasone Propionate 0.05% Na Spr 16 Gm Btl (*Bkc) NASAL 2 spray DAILY RAMONE Administration Gabapentin 800 mg 12/29/21 13:00 12/30/21 11:13 Gabapentin 400 Mg Capsule PO Not Given QID RAMONE Glucagon 1 mg 12/29/21 18:04 Glucagon For Inj 1 Mg Vial IM PRN PRN Hypoglycemia Protocol Glucose 15 gm 12/29/21 18:04 Glucose Oral Gel 15 Gm Of Glucse In 37.5 Gm Tube PO PRN PRN Hypoglycemia Protocol Dextrose 1,000 mls @ 100 mls/hr 12/29/21 18:04 Dextrose 5% 1,000 Ml IVPB PRN PRN Hypoglycemia Protocol Insulin Aspart 3 - 6 units 12/31/21 17:00 01/02/22 11:57 Insulin Aspart (*Bkc) 100 Units/Ml SUB-Q 3 units TIDWM RAMONE Administration Protocol Insulin Glargine 20 units 12/30/21 09:00 01/02/22 09:40 Insulin Glargine (*Bkc) 100 Units/Ml SUB-Q 20 units DAILY RAMONE Administration Levetiracetam 500 mg 01/01/22 21:00 01/02/22 09:35 Levetiracetam 500 Mg Tablet PO 500 mg Q12HR RAMONE Administration Levofloxacin 500 mg 01/02/22 09:00 01/02/22 09:35 Levofloxacin 500 Mg Tablet PO 500 mg DAILY RAMONE Administration Lisinopril 20 mg 12/29/21 12:50 12/30/21 11:13 Lisinopril 20 Mg Tablet PO Not Given DAILY RAMONE Loratadine 10 mg 12/29/21 12:32 01/02/22 09:35 Loratadine 10 Mg Tablet PO 10 mg DAILY PRN Adm
--- NOTE | 2022-01-02 15:11 | PM.DS ---
DS: Admitting Diagnosis Discharge Date 01/02/2022 Admitting Diagnosis left breast pain, DKA DS: Discharge Diagnosis Discharge Diagnosis (1) Cellulitis of left breast: Code(s): N61.0 - Mastitis without abscess Status: Acute Assessment and Plan: Cellulitis of the left breast, ultrasound of the left breast did not show any drainable fluid collection. Surgery following the patient -continue vancomycin and aztreonam (patient allergic to multiple medications/antibiotics) -blood cultures have been obtained and pending -since he will continue to follow - Monitor labs leukocytosis improved 01/01/2022 interval history: patient remains clinically stable, seen by surgery there is no abscess in the left breast, blood culture culture is not growing so far seen by surgery service recommended to deescalate antibiotic to oral, will stop aztreonam and vancomycin,will start the patient on Levaquin, patient blood sugars are trending down and control, now on now on long-acting Lantus 20 units at the bedtime, and sliding scale plan was to discharge the patient home today, however patient is very unsteady in her feet and patient is not very keen to work with Physical exam nor patient wants to be discharged to alf, will continue to monitor and further recommendation to follow (2) Acute hyperglycemia: Code(s): R73.9 - Hyperglycemia, unspecified Status: Acute Assessment and Plan: improved, monitor blood sugars and give insulin as needed. (3) Acute hyponatremia: Code(s): E87.1 - Hypo-osmolality and hyponatremia Status: Acute Assessment and Plan: Pseudohyponatremia is likely secondary to significant hyperglycemia, with blood sugars of 1040 -sodium levels improving -continue to monitor BMP and sodium levels (4) COPD (chronic obstructive pulmonary disease): Code(s): J44.9 - Chronic obstructive pulmonary disease, unspecified Status: Acute Assessment and Plan: Continue bronchodilators (5) Bipolar disorder: Code(s): F31.9 - Bipolar disorder, unspecified Status: Acute Assessment and Plan: Continue p.r.n. Xanax, which the patient takes at home (6) Peripheral neuropathy: Qualifiers: Peripheral neuropathy type: polyneuropathy, other Qualified Code(s): G62.89 - Other specified polyneuropathies Code(s): G62.9 - Polyneuropathy, unspecified Status: Acute Assessment and Plan: Patient states that her gabapentin makes her very sleepy, will continue to hold gabapentin and Percocet (7) Epilepsy: Code(s): G40.909 - Epilepsy, unspecified, not intractable, without status epilepticus Status: Acute Assessment and Plan: Continue Keppra which patient takes at home (8) Uncontrolled diabetes mellitus: Code(s): E11.65 - Type 2 diabetes mellitus with hyperglycemia Status: Acute Assessment and Plan: Hemoglobin A1c is >14., seems like patient is noncompliant -patient is on oral hypoglycemics and Basaglar at home, will hold for now and once patient is ready to take p.o. will start her on home meds - (9) Pacemaker: Code(s): Z95.0 - Presence of cardiac pacemaker Status: Acute Assessment and Plan: Patient has a pacemaker for paroxysmal ventricular arrhythmia/tachycardia (10) History of pulmonary embolism: Code(s): Z86.711 - Personal history of pulmonary embolism Status: Acute Assessment and Plan: History of pulmonary embolism and DVTs -continue home Eliquis (11) DVT prophylaxis: Code(s): Z29.9 - Encounter for prophylactic measures, unspecified Status: Acute Assessment and Plan: On Eliquis DS: Summary Hospital Course Reason for hospitalization: Chief Complaint: Left breast redness and tenderness. Narrative: This is 46-year-old female with multiple medical problems including poorly-controlled insulin-dependent diabetes, hypertension, GERD,
[2022-01-02] MEDS: NEOMYCIN/POLYMYXIN/BACITRACIN OINTMENT PACKET 1 PACKET (15:24)
== END 2022-01-02 15:55 | disposition home or self-care (01) | DRG 385 ==
LOC: ANHED 08:27 → ANHICU 10:31 → ANH3MED 01-01 08:22 → ANHICU 01-03 13:56 → ANHIMU 01-03 13:56
PROVIDERS: Internal Medicine; Physician Assistant; Admitting Provider Family Medicine; Emergency Provider Emergency Medicine; PCP Internal Medicine; Visit Provider Family Medicine
DX: N61.0 Mastitis without abscess (principal); Z20.822 Contact with and (suspected) exposure to COVID-19; E11.65 Type 2 diabetes mellitus with hyperglycemia; E11.42 Type 2 diabetes mellitus with diabetic polyneuropathy; K21.9 Gastro-esophageal reflux disease without esophagitis; J44.9 Chronic obstructive pulmonary disease, unspecified; I10 Essential (primary) hypertension; G89.4 Chronic pain syndrome; E78.5 Hyperlipidemia, unspecified; G40.909 Epilepsy, unspecified, not intractable, without status epilepticus; G47.33 Obstructive sleep apnea (adult) (pediatric); F41.9 Anxiety disorder, unspecified; F31.9 Bipolar disorder, unspecified; R82.5 Elevated urine levels of drugs, medicaments and biological substances; Z79.01 Long term (current) use of anticoagulants; Z79.4 Long term (current) use of insulin; Z79.84 Long term (current) use of oral hypoglycemic drugs; Z86.14 Personal history of Methicillin resistant Staphylococcus aureus infection; Z86.711 Personal history of pulmonary embolism; Z86.718 Personal history of other venous thrombosis and embolism; Z87.891 Personal history of nicotine dependence; Z88.0 Allergy status to penicillin; Z88.2 Allergy status to sulfonamides; Z88.8 Allergy status to other drugs, medicaments and biological substances; Z91.19 Patient's noncompliance with other medical treatment and regimen; Z95.0 Presence of cardiac pacemaker
CPT/HCPCS: 36415; 36569; 36600; 70450; 76642; 80048; 80053; 80202; 80307; 81001; 82140; 82565; 82805; 82948; 83036; 83605; 83735; 84100; 85025; 85610; 85730; 87040; 87086; 87088; 94002; 94003; 96361; 96365; 96366; 96367; 96375; 97116; 97162; 97166; 97530; 97535; 99285; A9270; C1751; C9803; G0378; G0379; J0131; J0610; J0743; J1200; J1815; J1953; J2310; J2405; J3370; J7030; J7040; U0003; U0005

== ENCOUNTER 2022-01-03 12:23 | Emergency (ER) | payer OTHER, SELFPAY ==
[2022-01-03] VITALS (14 sets, daily range): BP systolic 130–159; BP diastolic 68–89; PULSE 78–91; RESP 11–27; TEMP 37.1; O2SAT 98–100
--- NOTE | ~2022-01-03 | XR_ITS ---
EXAMINATION: XR hand LT min 3V DATE: 01/03/2022 13:39 INDICATION: Left hand pain and swelling post fall from couch. TECHNIQUE: Posteroanterior, oblique and lateral views of the left hand were obtained. COMPARISON: None. FINDINGS: Alignment is normal. No fracture. Joint spaces are normal. Prominent soft tissue swelling throughout the left hand most prominent over the dorsum of the hand. IMPRESSION: 1. No osseous abnormality. Reviewed, dictated and finalized at location B. IMPRESSION: 1. No osseous abnormality.
--- NOTE | ~2022-01-03 | CT_ITS ---
EXAMINATION: CT thoracic spine wo con DATE: 01/03/2022 13:49 INDICATION: Mid back pain. Fall. TECHNIQUE: Computed tomography (CT) of the thoracic spine was performed without intravenous contrast. Automated exposure control and iterative reconstruction technique were employed. The dose-length pro duct was 1348.02 mGy-cm. COMPARISON: Thoracic spine CT 12/16/2021 FINDINGS: There are small pleural effusions. There is a left chest wall pacer with leads in the right atrium and right ventricle. There is 4 degrees levocurvature of cervicothoracic spine. There is 5 de grees dextrocurvature of thoracic spine. There is 9 degrees levocurvature of thoracolumbar spine. The re is mild chronic anterior wedging of T11 vertebral body. There are Schmorl's nodes at T11-T12. Inte rvertebral disc heights are normal. There are bridging endplate osteophytes at T8-T9. There is multil evel mild facet joint osteoarthritis. On the left, there is mild neural foraminal stenosis at T10-T11 . There is a nondisplaced fracture of right T11 pars interarticularis. IMPRESSION: 1. Nondisplaced subacute fracture of right T11 pars interarticularis again seen. 2. Mild thoracic spondylosis. 3. Small pleural effusions. Reviewed, dictated and finalized at location A. IMPRESSION: 1. Nondisplaced subacute fracture of right T11 pars interarticularis again seen . 2. Mild thoracic spondylosis. 3. Small pleural effusions.
--- NOTE | ~2022-01-03 | CT_ITS ---
EXAMINATION: CT brain wo con DATE: 01/03/2022 13:48 INDICATION: Head injury. TECHNIQUE: Computed tomography (CT) of the head was performed without intravenous contrast. The mA wa s adjusted according to patient size. Iterative reconstruction technique was employed. The dose-lengt h product was 605.33 mGy-cm. COMPARISON: Head CT 12/29/2021 FINDINGS: There is no intracranial hemorrhage, acute infarction, or abnormal intracranial mass lesion . The ventricles are normal in size. There is mucosal thickening in the paranasal sinuses. There are old fracture deformities of the nasal bones. The mastoid air cells are normal. There are multiple are as of skin thickening. IMPRESSION: 1. Normal brain. Reviewed, dictated and finalized at location A. IMPRESSION: 1. Normal brain.
--- NOTE | 2022-01-03 13:28 | ED.FALL ---
HPI - Fall General Chief Complaint: Fall Stated Complaint: arm leg numbness after back surgery Time Seen by Provider: 01/03/22 12:29 History of Present Illness HPI Narrative: Patient is a 46-year-old female complaining of head pain, mid back pain and left hand pain after she rolled off the couch and fell on a carpeted floor. Patient denies any symptoms prior to fall, states that she was sleeping and rolled off. Patient states that her pain is a 7 out of 10, dull, nonradiating. Patient is on Eliquis due to her history of PE. Patient denies neck, chest, abdomen, back or any extremity pain/injury. Related Data Home Medications Medication Instructions Recorded Confirmed lisinopril 20 mg tablet 20 mg PO DAILY 06/15/19 12/29/21 albuterol sulfate 90 mcg/actuation 2 puff inhalation Q4H PRN Wheezing 08/21/19 12/29/21 aerosol inhaler (ProAir HFA) atorvastatin 20 mg tablet 20 mg PO DAILY 08/21/19 12/29/21 glipizide 10 mg tablet 10 mg PO DAILY 08/21/19 12/29/21 omeprazole 20 mg capsule,delayed 20 mg PO DAILY 08/21/19 12/29/21 release sitagliptin 100 mg tablet (Januvia) 100 mg PO DAILY 09/24/19 12/29/21 gabapentin 800 mg tablet 800 mg PO QID 02/12/20 12/29/21 glycopyrrolate 1 mg tablet 1 mg PO DAILY PRN Diarrhea 02/12/20 12/29/21 pioglitazone 30 mg tablet 30 mg PO DAILY 02/12/20 12/29/21 levetiracetam 500 mg tablet 500 mg PO BID 02/14/20 12/29/21 (Keppra) insulin glargine 100 unit/mL (3 30 unit subcut QPM 09/01/20 12/29/21 mL) subcutaneous pen (Basaglar KwikPen U-100 Insulin) metoprolol succinate 50 mg 50 mg PO DAILY 09/01/20 12/29/21 tablet,extended release 24 hr apixaban 5 mg tablet (Eliquis) 5 mg PO DAILY 12/29/21 12/29/21 Allergies Allergy/AdvReac Type Severity Reaction Status Date / Time lidocaine Allergy Intermediate HIVES Verified 01/03/22 12:52 nitroglycerin Allergy Intermediate HIVES Verified 01/03/22 12:52 aspirin Allergy Mild Hives Verified 01/03/22 12:52 citalopram Allergy Mild Rash Verified 01/03/22 12:52 escitalopram Allergy Mild Hives Verified 01/03/22 12:52 ibuprofen Allergy Mild Hives Verified 01/03/22 12:52 Penicillins Allergy Mild HIVES PER Verified 01/03/22 12:52 UNCODED ALLERGIES 08/27/12 procaine Allergy Mild Hives Verified 01/03/22 12:52 propoxyphene Allergy Mild Hives Verified 01/03/22 12:52 doxycycline Allergy Unknown Hives Verified 01/03/22 12:52 meloxicam Allergy Unknown HIVES Verified 01/03/22 12:52 Sulfa (Sulfonamide Allergy Unknown HIVES PER Verified 01/03/22 12:52 Antibiotics) UNCODED ALLERGIES 08/27/12 sulfamethoxazole Allergy Unknown Hives Verified 01/03/22 12:52 trimethoprim Allergy Unknown Hives Verified 01/03/22 12:52 codeine Allergy Hives Verified 01/03/22 12:52 iohexol Allergy Hives Verified 01/03/22 12:52 [From contrast - CT, X-RAY] adhesive AdvReac Unknown SILK TAPE= Verified 01/03/22 12:52 HIVES imipenem AdvReac Itching Verified 01/03/22 12:52 Review of Systems Review of Systems: All systems reviewed & are unremarkable except as noted in HPI and below Constitutional: Constitutional: Denies body ache(s), Denies chills, Denies excessive sweating, Denies fatigue, Denies fever(s), Denies headache(s), Denies lethargy, Denies malaise, Denies weakness and Denies weight loss Eyes: Eyes: Denies blurry vision, Denies change in vision and Denies loss of vision ENT: Denies dizziness, Denies ear discharge, Denies lip swelling, Denies epistaxis, Denies nasal congestion, Denies neck pain, Denies throat swelling and Denies tongue swelling Cardiovascular: Cardiovascular: Denies chest pain, Denies chest pain at rest, Denies chest pain with activity, Denies diaphoresis, Denies rapid heart rate, Denies edema, Denies irregular heart rhythm, Denies lightheadedness, Denies palpitations, Denies dyspnea and Denies dyspnea on exertion Respiratory: Respiratory: Denies chest congestion, Denies cough, Denies hemoptysis, Denies dyspnea and Denies dyspnea on exertion Ga
--- NOTE | 2022-01-03 13:36 | PC.NURSE ---
Pt in xray
[2022-01-03] MEDS: HYDROcodone/acetaminophen (*CRX) 5-325 MG TABLET 1 TAB PO (13:50)
--- NOTE | 2022-01-03 14:34 | PC.NURSE ---
Upon attempting to dc pt, pt reports not feeling safe to go home, pt asking for placement, Care Coordinatory Carmen informed and is on her way to bedside.
--- NOTE | 2022-01-03 14:49 | PC.NURSE ---
Care Coordination working on placing pt.
--- NOTE | 2022-01-03 14:58 | PC.NURSE ---
Lunch tray requested for pt.
--- NOTE | 2022-01-03 15:38 | PC.NURSE ---
pt sitting up eating meal tray
[2022-01-03 15:42] LABS: SARS-CoV-2 RNA PCR Negative
--- NOTE | 2022-01-03 16:28 | PCCCNOTE ---
met with patient bedside, patient is alert and oriented x 4, patient lives with friend, patient was dc yesterday, to home with a wheeled walker. patient would like to dc to [facility], CC cancelled rep Maggie patient has been accepted to facility.
--- NOTE | 2022-01-03 16:44 | PC.NURSE ---
Pt report called to TYRELL Metcalf at this time.
--- NOTE | 2022-01-03 16:45 | PC.NURSE ---
EDP filling out pt orders for [facility] at this time.
--- NOTE | 2022-01-03 16:55 | PC.NURSE ---
Pt awaiting transport.
--- NOTE | 2022-01-03 17:00 | PC.NURSE ---
per house sup eta for [facility] is approx 1.5hrs
--- NOTE | 2022-01-03 17:01 | PCCCNOTE ---
patient has been accepted by [facility]. patient will dc and travel via ambulance as patient has no family to transport her.
--- NOTE | 2022-01-03 17:32 | PC.NURSE ---
Pt dressed and awaiting transport.
== END 2022-01-03 18:54 ==
PROVIDERS: Emergency Provider Emergency Medicine; PCP Internal Medicine
DX: S09.90XA Unspecified injury of head, initial encounter (principal); S29.012A Strain of muscle and tendon of back wall of thorax, initial encounter; S63.92XA Sprain of unspecified part of left wrist and hand, initial encounter; F41.9 Anxiety disorder, unspecified; M19.90 Unspecified osteoarthritis, unspecified site; F31.9 Bipolar disorder, unspecified; J44.9 Chronic obstructive pulmonary disease, unspecified; K21.9 Gastro-esophageal reflux disease without esophagitis; E78.5 Hyperlipidemia, unspecified; I10 Essential (primary) hypertension; G40.909 Epilepsy, unspecified, not intractable, without status epilepticus; E11.9 Type 2 diabetes mellitus without complications; Z79.4 Long term (current) use of insulin; W08.XXXA Fall from other furniture, initial encounter
CPT/HCPCS: 70450; 72128; 73130; 81025; 99284; A9270; C9803; U0003; U0005

== ENCOUNTER 2022-01-04 04:44 | Emergency (ER) | payer OTHER, SELFPAY ==
--- NOTE | ~2022-01-04 | CT_ITS ---
EXAMINATION: CT brain wo con DATE: 01/04/2022 05:11 INDICATION: Head injury from fall TECHNIQUE: Computed tomography (CT) of the head was performed without intravenous contrast. The mA wa s adjusted according to patient size. Iterative reconstruction technique was employed. Exam dose: 60 5.33 mGy-cm total exam DLP. COMPARISON: 01/03/2022 CT brain FINDINGS: No intracranial mass lesion or hemorrhage or cerebrovascular accident. No midline shift or mass effect. No subdural or epidural hematoma. No fracture or bone destruction of the cranial vault. Mild mucoperiosteal thickening of the maxillary sinuses and ethmoid air cells. IMPRESSION: No significant abnormality Reviewed, dictated and finalized at Location A. Reviewed, dictated and finalized at location A. IMPRESSION: No significant abnormality
[2022-01-04 04:28] VITALS: BP 158/84; PULSE 87; RESP 16; TEMP 36.1; O2SAT 100
--- NOTE | 2022-01-04 06:11 | ED.FALL ---
HPI - Fall General Chief Complaint: Fall Stated Complaint: GLF , HIT HEAD, TAKES ELIQUIS Time Seen by Provider: 01/04/22 04:45 History of Present Illness HPI Narrative: Patient is a 46-year-old female who presents ER status post fall. Patient was sent to a shelter yesterday. Apparently she got up and was walking around got dressed and then had a fall. She did not lose consciousness. She did hit her head. She takes Eliquis. Facility was concerned patient could have a head bleed so they sent her here for further evaluation. Patient denies change in vision or hearing. No focal weakness or numbness in arm or leg. No neck pain or other concerns. Related Data Home Medications Medication Instructions Recorded Confirmed lisinopril 20 mg tablet 20 mg PO DAILY 06/15/19 12/29/21 albuterol sulfate 90 mcg/actuation 2 puff inhalation Q4H PRN Wheezing 08/21/19 12/29/21 aerosol inhaler (ProAir HFA) atorvastatin 20 mg tablet 20 mg PO DAILY 08/21/19 12/29/21 glipizide 10 mg tablet 10 mg PO DAILY 08/21/19 12/29/21 omeprazole 20 mg capsule,delayed 20 mg PO DAILY 08/21/19 12/29/21 release sitagliptin 100 mg tablet (Januvia) 100 mg PO DAILY 09/24/19 12/29/21 gabapentin 800 mg tablet 800 mg PO QID 02/12/20 12/29/21 glycopyrrolate 1 mg tablet 1 mg PO DAILY PRN Diarrhea 02/12/20 12/29/21 pioglitazone 30 mg tablet 30 mg PO DAILY 02/12/20 12/29/21 levetiracetam 500 mg tablet 500 mg PO BID 02/14/20 12/29/21 (Keppra) insulin glargine 100 unit/mL (3 30 unit subcut QPM 09/01/20 12/29/21 mL) subcutaneous pen (Basaglar KwikPen U-100 Insulin) metoprolol succinate 50 mg 50 mg PO DAILY 09/01/20 12/29/21 tablet,extended release 24 hr apixaban 5 mg tablet (Eliquis) 5 mg PO DAILY 12/29/21 12/29/21 Allergies Allergy/AdvReac Type Severity Reaction Status Date / Time lidocaine Allergy Intermediate HIVES Verified 01/04/22 04:48 nitroglycerin Allergy Intermediate HIVES Verified 01/04/22 04:48 aspirin Allergy Mild Hives Verified 01/04/22 04:48 citalopram Allergy Mild Rash Verified 01/04/22 04:48 escitalopram Allergy Mild Hives Verified 01/04/22 04:48 ibuprofen Allergy Mild Hives Verified 01/04/22 04:48 Penicillins Allergy Mild HIVES PER Verified 01/04/22 04:48 UNCODED ALLERGIES 08/27/12 procaine Allergy Mild Hives Verified 01/04/22 04:48 propoxyphene Allergy Mild Hives Verified 01/04/22 04:48 doxycycline Allergy Unknown Hives Verified 01/04/22 04:48 meloxicam Allergy Unknown HIVES Verified 01/04/22 04:48 Sulfa (Sulfonamide Allergy Unknown HIVES PER Verified 01/04/22 04:48 Antibiotics) UNCODED ALLERGIES 08/27/12 sulfamethoxazole Allergy Unknown Hives Verified 01/04/22 04:48 trimethoprim Allergy Unknown Hives Verified 01/04/22 04:48 codeine Allergy Hives Verified 01/04/22 04:48 iohexol Allergy Hives Verified 01/04/22 04:48 [From contrast - CT, X-RAY] adhesive AdvReac Unknown SILK TAPE= Verified 01/04/22 04:48 HIVES imipenem AdvReac Itching Verified 01/04/22 04:48 Review of Systems Review of Systems: All systems reviewed & are unremarkable except as noted in HPI and below Constitutional: Constitutional: Denies chills and Denies fever(s) Gastrointestinal: Gastrointestinal: Denies abdominal pain Musculoskeletal: Musculoskeletal: Denies myalgias, Denies arthralgias and Denies joint swelling Neurologic: Denies syncope, Denies headache(s), Denies focal weakness and Denies numbness PMFSH Past Medical History Medical History (Updated 01/04/22 @ 06:35 by John An MD) Anemia Anxiety Arthritis Asthma Bipolar disorder Chronic anticoagulation For history of DVT and PE. Chronic obstructive pulmonary disease Chronic pain syndrome Deep venous thrombosis Depression Eczema Gastroesophageal reflux disease Herniated disc History of MRSA infection Hyperlipidemia Hypertension Insulin dependent diabetes mellitus Historically poorly controlled. Obesity Obstructive sleep apnea Non compliant w
[2022-01-04 07:15] VITALS: BP 150/80; PULSE 84; RESP 18; O2SAT 98
== END 2022-01-04 07:00 ==
PROVIDERS: Emergency Provider Emergency Medicine; PCP Internal Medicine
DX: E11.42 Type 2 diabetes mellitus with diabetic polyneuropathy (principal); D64.9 Anemia, unspecified; J44.9 Chronic obstructive pulmonary disease, unspecified; G89.4 Chronic pain syndrome; K21.9 Gastro-esophageal reflux disease without esophagitis; E66.9 Obesity, unspecified; Z68.34 Body mass index [BMI] 34.0-34.9, adult; M19.90 Unspecified osteoarthritis, unspecified site; G47.30 Sleep apnea, unspecified; Z86.14 Personal history of Methicillin resistant Staphylococcus aureus infection; Z86.718 Personal history of other venous thrombosis and embolism; Z86.711 Personal history of pulmonary embolism; Z96.653 Presence of artificial knee joint, bilateral; Z95.0 Presence of cardiac pacemaker; Z87.891 Personal history of nicotine dependence; Z79.84 Long term (current) use of oral hypoglycemic drugs; Z79.01 Long term (current) use of anticoagulants; Z79.4 Long term (current) use of insulin; W19.XXXA Unspecified fall, initial encounter
CPT/HCPCS: 70450; 99284

== ENCOUNTER 2022-01-07 13:27 | Emergency (ER) | payer OTHER, SELFPAY ==
--- NOTE | ~2022-01-07 | CT_ITS ---
EXAMINATION: CT brain wo con INDICATION: Witnessed fall, history of seizures, head injury COMPARISON: 01/04/2022 TECHNIQUE: Standard unenhanced head CT. The dose-length product (DLP) was 605.33 mGy-cm. The mA was a djusted according to patient size. Iterative reconstruction technique was employed. FINDINGS: There is no intracranial hemorrhage, acute infarction, or abnormal mass lesion. The ventric les are normal. There is no abnormal mass effect or midline shift. The maguire-white matter differentiat ion is normal. The basal cisterns are patent. The orbits are normal. There is mild mucosal thickening of the paranasal sinuses. IMPRESSION: 1. No acute intracranial abnormality. Reviewed, dictated and finalized at location F.
--- NOTE | ~2022-01-07 | XR_ITS ---
EXAMINATION: XR chest 1V portable INDICATION: Transient alteration of awareness, history of asthma TECHNIQUE: Portable AP chest at 1525 hours COMPARISON: 06/12/2021 FINDINGS: There is a mild diffuse interstitial pattern. A small left pleural effusion is suggested. T here is no pneumothorax. The heart size is upper limits of normal for technique. A dual-lead cardiac pacemaker of the left chest wall ends with leads in expected locations. IMPRESSION: 1. Mild diffuse interstitial pattern, possible pulmonary edema. 2. Possible small left pleural effusion. Reviewed, dictated and finalized at location F.
[2022-01-07 13:27] VITALS: BP 148/91; PULSE 88; RESP 17; TEMP 37.1; O2SAT 100
--- NOTE | 2022-01-07 13:34 | PC.NURSE ---
PT REMOVED OWN C COLLAR. REFUSING TO WEAR.
[2022-01-07] MEDS: ACETAMINOPHEN 325 MG TABLET 650 MG PO (14:37)
[2022-01-07 15:49] VITALS: BP 137/84; PULSE 81; RESP 15; O2SAT 99
--- NOTE | 2022-01-07 16:14 | ED.FALL ---
HPI - Fall General Chief Complaint: Fall Stated Complaint: fall, hi glucose Time Seen by Provider: 01/07/22 14:00 History of Present Illness HPI Narrative: 46yoF h/o freq presentations to ER for falls presents today after falling at her rehab facility, she had been trying to use her walker but it slid away from her and she landed on the ground, she states that she has pain in her head and neck and her ribs especially on her left side. Denies any pain in her chest, abd, legs. Claims she had LOC. Related Data Home Medications Medication Instructions Recorded Confirmed lisinopril 20 mg tablet 20 mg PO DAILY 06/15/19 12/29/21 albuterol sulfate 90 mcg/actuation 2 puff inhalation Q4H PRN Wheezing 08/21/19 12/29/21 aerosol inhaler (ProAir HFA) atorvastatin 20 mg tablet 20 mg PO DAILY 08/21/19 12/29/21 glipizide 10 mg tablet 10 mg PO DAILY 08/21/19 12/29/21 omeprazole 20 mg capsule,delayed 20 mg PO DAILY 08/21/19 12/29/21 release sitagliptin 100 mg tablet (Januvia) 100 mg PO DAILY 09/24/19 12/29/21 gabapentin 800 mg tablet 800 mg PO QID 02/12/20 12/29/21 glycopyrrolate 1 mg tablet 1 mg PO DAILY PRN Diarrhea 02/12/20 12/29/21 pioglitazone 30 mg tablet 30 mg PO DAILY 02/12/20 12/29/21 levetiracetam 500 mg tablet 500 mg PO BID 02/14/20 12/29/21 (Keppra) insulin glargine 100 unit/mL (3 30 unit subcut QPM 09/01/20 12/29/21 mL) subcutaneous pen (Basaglar KwikPen U-100 Insulin) metoprolol succinate 50 mg 50 mg PO DAILY 09/01/20 12/29/21 tablet,extended release 24 hr apixaban 5 mg tablet (Eliquis) 5 mg PO DAILY 12/29/21 12/29/21 Allergies Allergy/AdvReac Type Severity Reaction Status Date / Time lidocaine Allergy Intermediate HIVES Verified 01/07/22 13:35 nitroglycerin Allergy Intermediate HIVES Verified 01/07/22 13:35 aspirin Allergy Mild Hives Verified 01/07/22 13:35 citalopram Allergy Mild Rash Verified 01/07/22 13:35 escitalopram Allergy Mild Hives Verified 01/07/22 13:35 ibuprofen Allergy Mild Hives Verified 01/07/22 13:35 Penicillins Allergy Mild HIVES PER Verified 01/07/22 13:35 UNCODED ALLERGIES 08/27/12 procaine Allergy Mild Hives Verified 01/07/22 13:35 propoxyphene Allergy Mild Hives Verified 01/07/22 13:35 doxycycline Allergy Unknown Hives Verified 01/07/22 13:35 meloxicam Allergy Unknown HIVES Verified 01/07/22 13:35 Sulfa (Sulfonamide Allergy Unknown HIVES PER Verified 01/07/22 13:35 Antibiotics) UNCODED ALLERGIES 08/27/12 sulfamethoxazole Allergy Unknown Hives Verified 01/07/22 13:35 trimethoprim Allergy Unknown Hives Verified 01/07/22 13:35 codeine Allergy Hives Verified 01/07/22 13:35 iohexol Allergy Hives Verified 01/07/22 13:35 [From contrast - CT, X-RAY] adhesive AdvReac Unknown SILK TAPE= Verified 01/07/22 13:35 HIVES imipenem AdvReac Itching Verified 01/07/22 13:35 Review of Systems Review of Systems: CONST: No fever. HEENT: Head trauma C/V:? No chest pain RESP: Rib pain GI: No nausea : No dysuria. M/S: Chronic arm/leg pain. SKIN: Old abrasions NEURO: [Headache without focal numbness or weakness] PSYCH: [No depression] [facility] Past Medical History Medical History Anemia Anxiety Arthritis Asthma Bipolar disorder Chronic anticoagulation For history of DVT and PE. Chronic obstructive pulmonary disease Chronic pain syndrome Deep venous thrombosis Depression Eczema Gastroesophageal reflux disease Herniated disc History of MRSA infection Hyperlipidemia Hypertension Insulin dependent diabetes mellitus Historically poorly controlled. Obesity Obstructive sleep apnea Non compliant with treatment. Peripheral neuropathy Pulmonary embolism Seizures Sleep apnea Suicide attempt T11 vertebral fracture Nondisplaced fracture of the right T11 inferior articulating facet. No surgical intervention required. Surgical History Surgical History (Reviewed 01/08/22 @ 20:44 by Juhi Maher
== END 2022-01-07 17:00 ==
PROVIDERS: Emergency Provider Emergency Medicine; PCP Internal Medicine
DX: R07.81 Pleurodynia (principal); E11.9 Type 2 diabetes mellitus without complications; E78.5 Hyperlipidemia, unspecified; J44.9 Chronic obstructive pulmonary disease, unspecified; Z79.4 Long term (current) use of insulin; Z86.718 Personal history of other venous thrombosis and embolism; Z87.891 Personal history of nicotine dependence; W19.XXXA Unspecified fall, initial encounter
CPT/HCPCS: 70450; 71045; 99284; A9270

== ENCOUNTER 2022-01-11 02:11 | Emergency (ER) | payer OTHER, SELFPAY ==
[2022-01-11] VITALS (9 sets, daily range): BP systolic 94–115; BP diastolic 45–62; PULSE 70–103; RESP 13–18; TEMP 36.8; O2SAT 96–99
--- NOTE | ~2022-01-11 | XR_ITS ---
EXAMINATION: XR chest 2V DATE: 01/11/2022 03:16 INDICATION: Chest pain TECHNIQUE: Frontal and lateral views of the chest are obtained COMPARISON: 01/07/2022 FINDINGS: A mild diffuse interstitial pattern persists but has improved. There is no pleural effusion or pneumothorax. The cardiomediastinal silhouette is stable. A dual-lead cardiac pacemaker of the le ft chest wall ends with leads in expected locations. There is mild thoracic spondylosis. IMPRESSION: 1. Mild diffuse interstitial pattern with improvement, likely improving pulmonary edema. Reviewed, dictated and finalized at location A. IMPRESSION: 1. Mild diffuse interstitial pattern with improvement, likely improving pulmona ry edema.
--- NOTE | 2022-01-11 02:27 | ECG_ITS ---
Measurements Intervals [place] Rate: 100 P: 47 NH: 153 QRS: 13 QRSD: 90 T: 33 QT: 336 QTc: 435 Interpretive Statements SINUS TACHYCARDIA LOW QRS VOLTAGE IN PRECORDIAL LEADS [QRS DEFLECTION < 1.0 mV IN CHEST LEADS] POOR R-WAVE PROGRESSION, CANNOT RULE OUT OLD ANTEROSEPTAL KS SINUS TACHYCARDIA NOW PRESENT Electronically Signed On 01-11-2022 9:27:22 CDT by Aletha Harrison M.D.
[2022-01-11 02:54] LABS: Basophils Percent Auto 0.4 % (0.2-1.2); Eosinophils Absolute Auto 0.2 K/mm3 (0-0.3); Eosinophils Percent Auto 3.3 % (0-4.4); Hematocrit 31.5 % (37.0-47.0); Hemoglobin 9.6 g/dL (12.0-15.0); Immature Granulocyte Absolute 0.09 K/mm3 (0.00-0.031); Immature Granulocyte Percent A 1.2 % (0-0.5); Lymphocytes Absolute Auto 1.22 K/mm3 (0.9-3.2); Lymphocytes Percent Auto 16.9 % (18.3-44.2); Mean Corpuscular HGB Conc 30.5 g/dl (32-36); Mean Corpuscular Hemoglobin 28.2 pg (26-34); Mean Corpuscular Volume 92.6 fl (80-100); Mean Platelet Volume 9.5 fl (7.4-10.4); Monocytes Absolute Auto 0.5 K/mm3 (0.1-0.6); Monocytes Percent Auto 7.3 % (2.6-8.5); Neutrophils Absolute Auto 5.1 K/mm3 (1.3-6.7); Neutrophils Percent Auto 70.9 % (45.5-73.1); Platelet Count Result 339 k/mm3 (150-375); Red Cell Distribution Width 13.2 % (11.5-14.5); White Blood Count 7.2 K/mm3 (4.5-10.0)
[2022-01-11 03:05] LABS: Alanine Aminotransferase 12 U/L (6-35); Albumin Level 2.9 g/dL (3.5-5.1); Alkaline Phosphatase 110 U/L (38-126); Anion Gap 3 mmol/L (8-16); Aspartate Amino Transferase 20 U/L (14-36); Bilirubin,Total 0.1 mg/dL (0.2-1.3); Blood Urea Nitrogen 28 mg/dL (7-17); Calcium 8.3 mg/dL (8.4-10.2); Carbon Dioxide 34 mmol/L (22-30); Chloride 102 mmol/L (98-107); Estimated CRCL calculation 77 ml/min; Estimated Glomerular Filt Rate > 60; Glucose 369 mg/dL (65-110); Lipase 79 U/L (23-300); Potassium 4.3 mmol/L (3.4-5.0); Sodium 139 mmol/L (137-145)
[2022-01-11 03:16] LABS: Troponin I < 0.012 ng/mL (0.000-0.034)
--- NOTE | 2022-01-11 03:34 | ED.CHESTPAIN ---
HPI - Chest Pain General Chief Complaint: Chest Pain Stated Complaint: chest pain Time Seen by Provider: 01/11/22 03:15 Source: patient, RN notes reviewed and old records reviewed Mode of arrival: EMS Limitations: no limitations History of Present Illness HPI narrative: This is a 46 year old female with history of chronic pain, DM, hypertension who presents for evaluation of chest pain. PAtient reports chest pain that starts on left chest and goes across to her right. She also reports pain radiates to her left leg. She thinks she may have shortness of breath. PAtient frequently comes to ER with complaint of chest pain. she also reports non productive cough and congestion. She denies fever, chills, nausea, vomiting. She states she has been started on lasix for leg edema. Patient reports pain woke her up. She does not appear to be in distress. Patient had cardiac catherization in 2014 that was normal with no disease. She had stress test 1 year ago that was negative. Timing of current episode: episodic Related Data Home Medications Medication Instructions Recorded Confirmed lisinopril 20 mg tablet 20 mg PO DAILY 06/15/19 12/29/21 albuterol sulfate 90 mcg/actuation 2 puff inhalation Q4H PRN Wheezing 08/21/19 12/29/21 aerosol inhaler (ProAir HFA) atorvastatin 20 mg tablet 20 mg PO DAILY 08/21/19 12/29/21 glipizide 10 mg tablet 10 mg PO DAILY 08/21/19 12/29/21 omeprazole 20 mg capsule,delayed 20 mg PO DAILY 08/21/19 12/29/21 release sitagliptin 100 mg tablet (Januvia) 100 mg PO DAILY 09/24/19 12/29/21 gabapentin 800 mg tablet 800 mg PO QID 02/12/20 12/29/21 glycopyrrolate 1 mg tablet 1 mg PO DAILY PRN Diarrhea 02/12/20 12/29/21 pioglitazone 30 mg tablet 30 mg PO DAILY 02/12/20 12/29/21 levetiracetam 500 mg tablet 500 mg PO BID 02/14/20 12/29/21 (Keppra) insulin glargine 100 unit/mL (3 30 unit subcut QPM 09/01/20 12/29/21 mL) subcutaneous pen (Mina Sun U-100 Insulin) metoprolol succinate 50 mg 50 mg PO DAILY 09/01/20 12/29/21 tablet,extended release 24 hr apixaban 5 mg tablet (Eliquis) 5 mg PO DAILY 12/29/21 12/29/21 Allergies Allergy/AdvReac Type Severity Reaction Status Date / Time lidocaine Allergy Intermediate HIVES Verified 01/07/22 13:35 nitroglycerin Allergy Intermediate HIVES Verified 01/07/22 13:35 aspirin Allergy Mild Hives Verified 01/07/22 13:35 citalopram Allergy Mild Rash Verified 01/07/22 13:35 escitalopram Allergy Mild Hives Verified 01/07/22 13:35 ibuprofen Allergy Mild Hives Verified 01/07/22 13:35 Penicillins Allergy Mild HIVES PER Verified 01/07/22 13:35 UNCODED ALLERGIES 08/27/12 procaine Allergy Mild Hives Verified 01/07/22 13:35 propoxyphene Allergy Mild Hives Verified 01/07/22 13:35 doxycycline Allergy Unknown Hives Verified 01/07/22 13:35 meloxicam Allergy Unknown HIVES Verified 01/07/22 13:35 Sulfa (Sulfonamide Allergy Unknown HIVES PER Verified 01/07/22 13:35 Antibiotics) UNCODED ALLERGIES 08/27/12 sulfamethoxazole Allergy Unknown Hives Verified 01/07/22 13:35 trimethoprim Allergy Unknown Hives Verified 01/07/22 13:35 codeine Allergy Hives Verified 01/07/22 13:35 iohexol Allergy Hives Verified 01/07/22 13:35 [From contrast - CT, X-RAY] adhesive AdvReac Unknown SILK TAPE= Verified 01/07/22 13:35 HIVES imipenem AdvReac Itching Verified 01/07/22 13:35 Review of Systems Review of Systems: All systems reviewed & are unremarkable except as noted in HPI and below Constitutional: Constitutional: Denies chills, Denies fatigue and Denies fever(s) ENT: Reports nasal congestion Cardiovascular: Cardiovascular: Reports chest pain and Denies radiating jaw, neck or arm pain Respiratory: Respiratory: Reports cough Gastrointestinal: Gastrointestinal: Denies abdominal pain, Denies nausea and Denies vomiting PMFSH Past Medical History Medical History Anemia Anxiety Arthritis
[2022-01-11 03:38] LABS: INR 1.1; Partial Thromboplastin Time 30.5 SECONDS (22.3-36.8); Prothrombin Time 13.4 Seconds (11.1-14.7)
[2022-01-11 03:59] LABS: NT Pro B Type Natriuretic Pept 375 pg/mL (5-100)
[2022-01-11 05:57] LABS: Troponin I < 0.012 ng/mL (0.000-0.034)
--- NOTE | 2022-01-11 06:49 | PC.NURSE ---
Maricruz Lopez RN gave report to [facility] to Leeann SANTILLAN.
[2022-01-11 10:02] LABS: SARS-CoV-2 RNA PCR Negative
== END 2022-01-11 07:29 ==
PROVIDERS: Emergency Provider General Practice; PCP Internal Medicine
DX: R07.89 Other chest pain (principal); E11.65 Type 2 diabetes mellitus with hyperglycemia; Z20.822 Contact with and (suspected) exposure to COVID-19; J44.9 Chronic obstructive pulmonary disease, unspecified; E78.5 Hyperlipidemia, unspecified; I10 Essential (primary) hypertension; E11.42 Type 2 diabetes mellitus with diabetic polyneuropathy; D64.9 Anemia, unspecified; M19.90 Unspecified osteoarthritis, unspecified site; G89.4 Chronic pain syndrome; K21.9 Gastro-esophageal reflux disease without esophagitis; G47.30 Sleep apnea, unspecified; E66.9 Obesity, unspecified; Z68.25 Body mass index [BMI] 25.0-25.9, adult; F31.9 Bipolar disorder, unspecified; F41.9 Anxiety disorder, unspecified; Z96.653 Presence of artificial knee joint, bilateral; Z95.0 Presence of cardiac pacemaker; Z86.14 Personal history of Methicillin resistant Staphylococcus aureus infection; Z86.718 Personal history of other venous thrombosis and embolism; Z86.711 Personal history of pulmonary embolism; Z87.891 Personal history of nicotine dependence; Z79.4 Long term (current) use of insulin; Z79.01 Long term (current) use of anticoagulants; Z79.84 Long term (current) use of oral hypoglycemic drugs
CPT/HCPCS: 36415; 71046; 80053; 83690; 83880; 84484; 85025; 85610; 85730; 93005; 96365; 99284; C9803; J0131; U0003; U0005

== ENCOUNTER 2022-01-18 20:10 | Emergency (ER) | payer OTHER, SELFPAY ==
[2022-01-18 20:10] VITALS: BP 129/62; PULSE 94; RESP 18; TEMP 36.7; O2SAT 97
[2022-01-18 20:11] LABS: Glucose Point of Care 287 mg/dl (65-105)
--- NOTE | 2022-01-18 20:40 | PC.NURSE ---
This RN called [facility], where EMS reports they picked pt up in front of today. Per facility staff, pt has not been a resident there for over 1 week. They report she signed AMA and they sent pt to [place] for psych, and pt signed herself out of that facility but did not return to half-way. She wound up at [facility] ER today, where she was d/c in a cab and gave them [facility]'s address, however they would not let her in as she is no longer a resident. She then called EMS, who brought her to [place] ED.
--- NOTE | 2022-01-18 20:57 | PC.NURSE ---
Pt upon introduction states she wants to hurt someone, but not me , because your Nice ERMD wale advised. ER Charge moved Pt to room 15 after removing all her personal belongings.
--- NOTE | 2022-01-18 21:08 | ED.RECABL ---
HPI - Recheck/Abnormal Lab/Rx General Chief Complaint: Psychiatric Symptoms <All Tello MD - Last Filed: 01/19/22 08:04> Stated Complaint: high blood sugar <All Tello MD - Last Filed: 01/19/22 08:04> Time Seen by Provider: 01/18/22 20:43 <All Tello MD - Last Filed: 01/19/22 08:04> Source: patient <All Tello MD - Last Filed: 01/19/22 08:04> History of Present Illness HPI narrative: Patient presents with high blood sugar. Patient reports she fell earlier today went to [facility] had imaging and blood test and she was discharged. She presented to [facility] where she signed out AMA approximately 1 week ago EMS was called and she was transferred to the ER for further evaluation. Patient ports some back pain but reports sensation versus that her imaging was normal. Patient also reports she has been having elevated blood sugars. Patient also states she wants to hurt people and states she wants to hurt anyone in her way. She denies any suicidal ideation. <All Tello MD - Last Filed: 01/19/22 08:04> Related Data Home Medications: Home Medications Medication Instructions Recorded Confirmed atorvastatin 20 mg tablet 20 mg PO DAILY 08/21/19 12/29/21 glipizide 10 mg tablet 10 mg PO DAILY 08/21/19 12/29/21 gabapentin 800 mg tablet 800 mg PO DAILY 02/12/20 12/29/21 levetiracetam 500 mg tablet 500 mg PO BID 02/14/20 12/29/21 (Keppra) apixaban 5 mg tablet (Eliquis) 5 mg PO DAILY 12/29/21 12/29/21 furosemide 20 mg tablet 40 mg PO DAILY 01/18/22 glycopyrrolate 1 mg tablet 1 mg PO DAILY 01/18/22 linagliptin 5 mg tablet (Tradjenta) 1 tablet PO DAILY 01/18/22 pioglitazone 30 mg tablet 1 tablet PO DAILY 01/18/22 clindamycin HCl 150 mg capsule cap 01/19/22 insulin glargine 100 unit/mL (3 ea subcut 01/19/22 mL) subcutaneous pen (Basaglar KwikPen U-100 Insulin) metoprolol succinate 50 mg 50 mg PO DAILY 01/19/22 tablet,extended release 24 hr potassium chloride 20 mEq 1 tablet PO DAILY 01/19/22 tablet,extended release(part/cryst) quetiapine 100 mg tablet 100 mg PO DAILY 01/19/22 <All Tello MD - Last Filed: 01/19/22 08:04> Allergies/Adverse Reactions: Allergies Allergy/AdvReac Type Severity Reaction Status Date / Time lidocaine Allergy Intermediate HIVES Verified 01/18/22 20:14 nitroglycerin Allergy Intermediate HIVES Verified 01/18/22 20:14 aspirin Allergy Mild Hives Verified 01/18/22 20:14 citalopram Allergy Mild Rash Verified 01/18/22 20:14 escitalopram Allergy Mild Hives Verified 01/18/22 20:14 ibuprofen Allergy Mild Hives Verified 01/18/22 20:14 Penicillins Allergy Mild HIVES PER Verified 01/18/22 20:14 UNCODED ALLERGIES 08/27/12 procaine Allergy Mild Hives Verified 01/18/22 20:14 propoxyphene Allergy Mild Hives Verified 01/18/22 20:14 doxycycline Allergy Unknown Hives Verified 01/18/22 20:14 meloxicam Allergy Unknown HIVES Verified 01/18/22 20:14 Sulfa (Sulfonamide Allergy Unknown HIVES PER Verified 01/18/22 20:14 Antibiotics) UNCODED ALLERGIES 08/27/12 sulfamethoxazole Allergy Unknown Hives Verified 01/18/22 20:14 trimethoprim Allergy Unknown Hives Verified 01/18/22 20:14 codeine Allergy Hives Verified 01/18/22 20:14 iohexol Allergy Hives Verified 01/18/22 20:14 [From contrast - CT, X-RAY] adhesive AdvReac Unknown SILK TAPE= Verified 01/18/22 20:14 HIVES imipenem AdvReac Itching Verified 01/18/22 20:14 <All Tello MD - Last Filed: 01/19/22 08:04> Review of Systems Review of Systems: CONSTITUTIONAL: Denies fever, chills, or sweats. EYES: Denies visual changes, redness, or discharge. ENT: Denies rhinorrhea, congestion, sore throat, or otalgia. CARDIOVASCULAR: Denies chest pain, palpitations, or edema. RESPIRATORY: Denies cough or dyspnea. GASTROINTESTINAL: Denies abdominal pain, nausea, vomiting, or diarrhea. GENITOURINARY: Denies dysuria or hematuria. SKIN:
[2022-01-18 21:42] LABS: Basophils Percent Auto 0.7 % (0.2-1.2); Eosinophils Absolute Auto 0.1 K/mm3 (0-0.3); Eosinophils Percent Auto 2.5 % (0-4.4); Hematocrit 28.5 % (37.0-47.0); Hemoglobin 8.7 g/dL (12.0-15.0); Immature Granulocyte Absolute 0.02 K/mm3 (0.00-0.031); Immature Granulocyte Percent A 0.5 % (0-0.5); Lymphocytes Absolute Auto 0.71 K/mm3 (0.9-3.2); Lymphocytes Percent Auto 16.1 % (18.3-44.2); Mean Corpuscular HGB Conc 30.5 g/dl (32-36); Mean Corpuscular Hemoglobin 27.9 pg (26-34); Mean Corpuscular Volume 91.3 fl (80-100); Mean Platelet Volume 9.6 fl (7.4-10.4); Monocytes Absolute Auto 0.6 K/mm3 (0.1-0.6); Monocytes Percent Auto 13.2 % (2.6-8.5); Platelet Count Result 255 k/mm3 (150-375); Red Blood Count 3.12 M/mm3 (4.2-5.4); Red Cell Distribution Width 13.2 % (11.5-14.5); White Blood Count 4.4 K/mm3 (4.5-10.0)
[2022-01-18 21:51] LABS: Acetaminophen < 10 ug/mL (10-30); Ethanol < 10 mg/dL (<10); Salicylate < 1.0 mg/dL (2-20)
[2022-01-18 21:52] LABS: Alanine Aminotransferase 20 U/L (6-35); Albumin Level 3.1 g/dL (3.5-5.1); Alkaline Phosphatase 117 U/L (38-126); Anion Gap 5 mmol/L (8-16); Aspartate Amino Transferase 24 U/L (14-36); Bilirubin,Total 0.3 mg/dL (0.2-1.3); Blood Urea Nitrogen 17 mg/dL (7-17); Calcium 8.1 mg/dL (8.4-10.2); Carbon Dioxide 30 mmol/L (22-30); Chloride 104 mmol/L (98-107); Estimated Glomerular Filt Rate > 60; Glucose 306 mg/dL (65-110); Potassium 3.8 mmol/L (3.4-5.0); Sodium 139 mmol/L (137-145)
[2022-01-18 22:04] LABS: Beta-Hydroxybutyrate/Acetoacetate 0.79 mmol/L (0.02-0.27)
[2022-01-18 22:36] LABS: Appearance Urine Clear (Clear); Bilirubin Urine 1+ (Negative); Blood Urine 2+ (Negative); Color Urine Yellow (Yellow); Glucose Urine UA 3+ mg/dL (Negative); Ketones Urine Trace mg/dL (Negative); Leukocyte Esterase Ur 1+ LEU/UL (Negative); Nitrate Urine Negative (Negative); Protein Urine 3+ mg/dL (Negative); Specific Grav Ur >= 1.030 (1.001-1.035); Urobilinogen Urine 0.2 mg/dL (<2.0)
[2022-01-18 22:43] LABS: Bacteria Urine Trace /hpf; Mucus Urine Few /lpf; RBC Urine >75 /hpf (0-2); Squamous Epithelial Cell Urine Many /hpf (Few); WBC Clumps Urine Present /HPF; WBC Urine >75 /hpf
[2022-01-18 22:51] LABS: Amphetamine Screen Urine Negative (Negative); Barbiturate Screen Urine Negative (Negative); Benzodiazepines Screen Urine Positive (Negative); Cannabinoid Screen Urine Negative (Negative); Cocaine Screen Urine Negative (Negative); Methadone Screen Urine Negative (Negative); Opiate Screen Urine Positive (Negative); Phencyclidine Screen Urine Negative (Negative)
--- NOTE | 2022-01-18 22:52 | PC.NURSE ---
Per EDP Dr. Tello, pt medically clear for eval. by crisis who is present in ED at this time.
--- NOTE | 2022-01-18 23:12 | PC.NURSE ---
Mental Health at the bedside for assessment at this time.
[2022-01-18 23:18] LABS: Add Urine Microscopic? YES
--- NOTE | 2022-01-18 23:22 | PC.NURSE ---
Mental Health left at this time. They demed Pt dose not meet Criteria for involuntary Addmission. However Pt has agreeded to Voluntarily admit herself. Looking for placemet.
--- NOTE | 2022-01-18 23:42 | PC.NURSE ---
Per JULIA Tello, pt does NOT require environmental health and safety intern.
--- NOTE | 2022-01-19 00:35 | PC.NURSE ---
This RN updated pt's med rec using external medication hx: Parvin.
--- NOTE | 2022-01-19 01:58 | PC.NURSE ---
[facility] called to talk to Pt. at this time.
[2022-01-19 02:14] LABS: Glucose Point of Care 305 mg/dl (65-105)
--- NOTE | 2022-01-19 05:03 | PC.NURSE ---
[facility] called for brief report on pt, which this RN provided. She reports she will speak with her attending and get back to us.
--- NOTE | 2022-01-19 05:58 | PC.NURSE ---
Accu Checks thru the night 305 and this AM Now 291.
[2022-01-19 05:59] LABS: Glucose Point of Care 291 mg/dl (65-105)
[2022-01-19] MEDS: INSULIN HUMAN NPH (*BKC) 100 UNITS/ML 11 UNITS SUB-Q ×2 (06:11→17:50)
[2022-01-19 06:44] LABS: SARS-CoV-2 RNA PCR Negative
--- NOTE | 2022-01-19 07:27 | PC.NURSE ---
ordered pt diabetic breakfast tray.
[2022-01-19] MEDS: glipiZIDE 5 MG TABLET 10 MG PO (07:37)
[2022-01-19] MEDS: lisinopriL 20 MG TABLET PO (07:38)
[2022-01-19] MEDS: PIOGLITAZONE HCL 30 MG TABLET PO (07:38)
[2022-01-19 07:42] LABS: Glucose Point of Care 262 mg/dl (65-105)
[2022-01-19 09:24] LABS: Glucose Point of Care 246 mg/dl (65-105)
[2022-01-19] MEDS: CEPHALEXIN 500 MG CAPSULE PO ×2 (09:44→21:55)
[2022-01-19 11:04] LABS: Glucose Point of Care 193 mg/dl (65-105)
--- NOTE | 2022-01-19 11:14 | PC.NURSE ---
[facility] requesting pt's blood sugar to be below 200. pt's blood sugar is now at 193. faxed over results per their request.
[2022-01-19 12:05] VITALS: BP 129/67; PULSE 91; RESP 17; O2SAT 97
--- NOTE | 2022-01-19 13:29 | PC.NURSE ---
Called [facility] to see if they received Voluntary Paperwork and labs. They state they received the fax and have no beds available at this time. She is on the waitlist.
--- NOTE | 2022-01-19 15:29 | PC.NURSE ---
[facility] called and states [facility] denied pt. pt's chart faxed over to [facility] per request.
[2022-01-19 15:46] LABS: Glucose Point of Care 132 mg/dl (65-105)
--- NOTE | 2022-01-19 16:17 | PC.NURSE ---
ordered pt diabetic dinner tray.
[2022-01-19 17:30] LABS: Glucose Point of Care 154 mg/dl (65-105)
--- NOTE | 2022-01-19 19:05 | PC.NURSE ---
This RN called [facility] for update on pt being accepted. Per Intake @ [phone] pt has been accepted and they are currently waiting an available bed. Per facility, no likely acceptance tonight, but possibly tomorrow (Saturday 01/20).
--- NOTE | 2022-01-19 19:49 | PC.NURSE ---
When pt asked about homicidal thoughts, she stated she will hurt anyone who gets in her way . She does not currently have a plan for said actions.
[2022-01-19 19:52] VITALS: BP 130/68; PULSE 86; RESP 16; TEMP 36.6; O2SAT 96
--- NOTE | 2022-01-19 20:01 | PC.NURSE ---
Patient face sheet faxed to [facility] upon Crisis request. Faxed to [phone].
--- NOTE | 2022-01-19 21:29 | PC.NURSE ---
Bedside glucose is 116.
[2022-01-19 21:31] LABS: Glucose Point of Care 116 mg/dl (65-105)
[2022-01-19] MEDS: FUROSEMIDE 20 MG TABLET PO (21:55)
[2022-01-19] MEDS: levETIRAcetam 500 MG TABLET PO (21:55)
--- NOTE | 2022-01-19 22:00 | PC.NURSE ---
[facility] called and requested that we fax pt's entire chart for review. Done by ED paralegal legal secretary.
--- NOTE | 2022-01-19 23:00 | PC.NURSE ---
Report received from TYRELL Morales. This nurse assumed care of patient at this time.
--- NOTE | 2022-01-19 23:08 | PC.NURSE ---
[id number] Called Crisis to have them come re-evaluate patient, she stated she will come to evaluate the patient.
--- NOTE | 2022-01-20 00:19 | PC.NURSE ---
Crisis arrives for patient.
[2022-01-20 06:15] VITALS: BP 110/69; PULSE 80; RESP 14; TEMP 36.8; O2SAT 97
--- NOTE | 2022-01-20 06:16 | PC.NURSE ---
Bedside glucose is 117.
[2022-01-20 06:17] LABS: Glucose Point of Care 117 mg/dl (65-105)
--- NOTE | 2022-01-20 07:30 | PC.NURSE ---
Report received from the psychological science professor nurse, assumed care, pt sleeping at this me, no s/s of distress.
[2022-01-20 07:48] LABS: Glucose Point of Care 112 mg/dl (65-105)
[2022-01-20 09:55] LABS: Glucose Point of Care 114 mg/dl (65-105)
[2022-01-20] MEDS: INSULIN HUMAN NPH (*BKC) 100 UNITS/ML 11 UNITS SUB-Q ×2 (10:02→17:28)
[2022-01-20] MEDS: APIXABAN 5 MG TABLET PO (10:04)
[2022-01-20] MEDS: CEPHALEXIN 500 MG CAPSULE PO (10:04)
[2022-01-20] MEDS: FUROSEMIDE 20 MG TABLET PO ×2 (10:04→18:08)
[2022-01-20] MEDS: levETIRAcetam 500 MG TABLET PO (10:04)
--- NOTE | 2022-01-20 12:21 | PC.NURSE ---
Blood sugar 170
[2022-01-20 12:33] LABS: Glucose Point of Care 170 mg/dl (65-105)
--- NOTE | 2022-01-20 13:01 | PC.NURSE ---
lunch ordered for the pt
[2022-01-20 13:07] VITALS: BP 136/70; PULSE 79; RESP 18; O2SAT 98
[2022-01-20 17:06] LABS: Glucose Point of Care 166 mg/dl (65-105)
[2022-01-20 19:18] VITALS: BP 139/89; PULSE 91; RESP 18; O2SAT 96
== END 2022-01-20 18:45 ==
PROVIDERS: Emergency Medicine; Emergency Provider General Practice; PCP Internal Medicine
DX: N39.0 Urinary tract infection, site not specified (principal); R45.850 Homicidal ideations; E11.65 Type 2 diabetes mellitus with hyperglycemia; Z20.822 Contact with and (suspected) exposure to COVID-19; E78.5 Hyperlipidemia, unspecified; I10 Essential (primary) hypertension; Z79.01 Long term (current) use of anticoagulants; Z79.4 Long term (current) use of insulin; Z86.718 Personal history of other venous thrombosis and embolism
CPT/HCPCS: 36415; 80053; 80307; 81001; 81025; 82010; 82948; 85025; 87086; 87088; 99285; A9270; C9803; J1815; U0003; U0005

== ENCOUNTER 2022-03-08 06:56 | Emergency (ER) | payer OTHER, SELFPAY ==
--- NOTE | ~2022-03-08 | CT_ITS ---
EXAMINATION: CT brain wo con DATE: 03/08/2022 07:23 INDICATION: Patient fell backwards and struck head on floor TECHNIQUE: Computed tomography (CT) of the head was performed without intravenous contrast. The mA wa s adjusted according to patient size. Iterative reconstruction technique was employed. Exam dose: 60 5.33 mGy-cm total exam DLP. COMPARISON: 01/07/2022 CT brain FINDINGS: There is posterior midline cephalohematoma relatively high over the convexity. No skull fra cture. Chronic right nasal plate fracture, present on 01/07/2022. No coup or contrecoup intracranial injury is noted. No intracranial mass lesion or hemorrhage or cerebrovascular accident, midline shift or mass effect. Normal ventricular size. No subdural or epidural hematoma. IMPRESSION: High posterior midline cephalohematoma; no skull fracture or acute intracranial finding Reviewed, dictated and finalized at [facility]. Reviewed, dictated and finalized at [facility].
--- NOTE | ~2022-03-08 | XR_ITS ---
XR chest 1V DATE: 03/08/2022 07:25 INDICATION: Dyspnea TECHNIQUE: Portable AP chest on 03/08/2022 at 0723 hours COMPARISON: 01/2022 2 view chest FINDINGS: Limited portable study. Bibasilar infiltrate or atelectasis, greater on the left and blunti ng of the costophrenic angles, suggesting small pleural effusions. No pneumothorax is noted. Left-sided dual-lead pacemaker device with leads overlying right atrium and right ventricle. Heart si ze is likely within normal range. Osteopenia. IMPRESSION: Bibasilar infiltrate or atelectasis, left greater than right and small bilateral pleural effusions Reviewed, dictated and finalized at location [facility]. IMPRESSION: Bibasilar infiltrate or atelectasis, left greater than right and sm all bilateral pleural effusions
[2022-03-08 06:55] VITALS: BP 147/105; PULSE 93; RESP 20; TEMP 37.1; O2SAT 97
--- NOTE | 2022-03-08 07:05 | PC.NURSE ---
Pt states that fell yesterday. States she was at [facility] and lost balance and fell backwards hitting her head on the floor. Pt has matted dried blood to the back of her head with some swelling.
--- NOTE | 2022-03-08 07:07 | ECG_ITS ---
Measurements Intervals [place] Rate: 93 P: 69 OK: 165 QRS: 31 QRSD: 71 T: 7 QT: 331 QTc: 413 Interpretive Statements SINUS RHYTHM LOW QRS VOLTAGE IN PRECORDIAL LEADS CONSIDER ANTERIOR INFARCT, AGE INDETERMINATE BORDERLINE ST-T WAVE ABNORMALITY- INFERIOR LEADS BASELINE ARTIFACT- I, II, III, AVR, AVL, AVF, V1-V2, V4-V6 ABNORMAL ECG Electronically Signed On 03-08-2022 11:19:36 CDT by Kalin Castorena D.O.
--- NOTE | 2022-03-08 07:36 | ED.GENADULT ---
HPI - General Adult General Chief complaint: Anxiety Stated complaint: SOB Time Seen by Provider: 03/08/22 07:00 Source: RN notes reviewed History of Present Illness HPI narrative: Patient presents emergency department from the bus for shortness of breath. Patient states shortness of breath began approximate 45 minutes prior to arrival states that shortness of breath with exertion states she is feeling better at this time states she has a history of heart failure was recently admitted to the hospital for her CHF she denies any fevers or chills chest pain abdominal pain nausea or vomiting states she did fall yesterday and hit the back of her head and was seen at [facility] but states she is still having pain in her head states she has been taking her medications as prescribed Related Data Home Medications Medication Instructions Recorded Confirmed atorvastatin 20 mg tablet 20 mg PO DAILY 08/21/19 12/29/21 glipizide 10 mg tablet 10 mg PO DAILY 08/21/19 12/29/21 gabapentin 800 mg tablet 800 mg PO DAILY 02/12/20 12/29/21 levetiracetam 500 mg tablet 500 mg PO BID 02/14/20 12/29/21 (Keppra) apixaban 5 mg tablet (Eliquis) 5 mg PO DAILY 12/29/21 12/29/21 furosemide 20 mg tablet 40 mg PO DAILY 01/18/22 glycopyrrolate 1 mg tablet 1 mg PO DAILY 01/18/22 linagliptin 5 mg tablet (Tradjenta) 1 tablet PO DAILY 01/18/22 pioglitazone 30 mg tablet 1 tablet PO DAILY 01/18/22 clindamycin HCl 150 mg capsule cap 01/19/22 insulin glargine 100 unit/mL (3 ea subcut 01/19/22 mL) subcutaneous pen (Basaglar KwikPen U-100 Insulin) metoprolol succinate 50 mg 50 mg PO DAILY 01/19/22 tablet,extended release 24 hr potassium chloride 20 mEq 1 tablet PO DAILY 01/19/22 tablet,extended release(part/cryst) quetiapine 100 mg tablet 100 mg PO DAILY 01/19/22 Allergies Allergy/AdvReac Type Severity Reaction Status Date / Time lidocaine Allergy Intermediate HIVES Verified 01/18/22 20:14 nitroglycerin Allergy Intermediate HIVES Verified 01/18/22 20:14 aspirin Allergy Mild Hives Verified 01/18/22 20:14 citalopram Allergy Mild Rash Verified 01/18/22 20:14 escitalopram Allergy Mild Hives Verified 01/18/22 20:14 ibuprofen Allergy Mild Hives Verified 01/18/22 20:14 Penicillins Allergy Mild HIVES PER Verified 01/18/22 20:14 UNCODED ALLERGIES 08/27/12 procaine Allergy Mild Hives Verified 01/18/22 20:14 propoxyphene Allergy Mild Hives Verified 01/18/22 20:14 doxycycline Allergy Unknown Hives Verified 01/18/22 20:14 meloxicam Allergy Unknown HIVES Verified 01/18/22 20:14 Sulfa (Sulfonamide Allergy Unknown HIVES PER Verified 01/18/22 20:14 Antibiotics) UNCODED ALLERGIES 08/27/12 sulfamethoxazole Allergy Unknown Hives Verified 01/18/22 20:14 trimethoprim Allergy Unknown Hives Verified 01/18/22 20:14 codeine Allergy Hives Verified 01/18/22 20:14 iohexol Allergy Hives Verified 01/18/22 20:14 [From contrast - CT, X-RAY] adhesive AdvReac Unknown SILK TAPE= Verified 01/18/22 20:14 HIVES imipenem AdvReac Itching Verified 01/18/22 20:14 Review of Systems Review of Systems: Gen.: Denies fevers or chills Eyes: Denies eye pain or visual change ENT: See HPI Respiratory: Reports shortness of breath CV: Denies chest pain or palpitations GI: Denies abdominal pain nausea, emesis or diarrhea Musculoskeletal: Denies back pain or muscle pain Neuro: Denies numbness, tingling, weakness or focal weakness Skin: Denies rash Except as documented, all other systems reviewed and negative PMFSH Past Medical History Medical History Anemia Anxiety Arthritis Asthma Bipolar disorder Chronic anticoagulation For history of DVT and PE. Chronic obstructive pulmonary disease Chronic pain syndrome Deep venous thrombosis Depression Eczema Gastroesophageal reflux disease Herniated disc History of MRSA infection Hyperlipidemia Hypertension Insulin dependent diabetes mellit
[2022-03-08 08:19] LABS: Basophils Percent Auto 0.7 % (0.2-1.2); Eosinophils Absolute Auto 0.3 K/mm3 (0-0.3); Eosinophils Percent Auto 5.6 % (0-4.4); Hematocrit 30.8 % (37.0-47.0); Hemoglobin 9.2 g/dL (12.0-15.0); Immature Granulocyte Absolute 0.01 K/mm3 (0.00-0.031); Immature Granulocyte Percent A 0.2 % (0-0.5); Lymphocytes Absolute Auto 1.09 K/mm3 (0.9-3.2); Lymphocytes Percent Auto 20.3 % (18.3-44.2); Mean Corpuscular HGB Conc 29.9 g/dl (32-36); Mean Corpuscular Hemoglobin 27.1 pg (26-34); Mean Corpuscular Volume 90.6 fl (80-100); Mean Platelet Volume 9.9 fl (7.4-10.4); Monocytes Absolute Auto 0.5 K/mm3 (0.1-0.6); Monocytes Percent Auto 9.5 % (2.6-8.5); Neutrophils Absolute Auto 3.4 K/mm3 (1.3-6.7); Neutrophils Percent Auto 63.7 % (45.5-73.1); Platelet Count Result 228 k/mm3 (150-375); Red Cell Distribution Width 14.4 % (11.5-14.5); White Blood Count 5.4 K/mm3 (4.5-10.0)
[2022-03-08 08:27] LABS: Alanine Aminotransferase 17 U/L (6-35); Albumin Level 3.7 g/dL (3.5-5.1); Alkaline Phosphatase 132 U/L (38-126); Anion Gap 3 mmol/L (8-16); Aspartate Amino Transferase 26 U/L (14-36); Bilirubin,Total 0.7 mg/dL (0.2-1.3); Blood Urea Nitrogen 20 mg/dL (7-17); Calcium 8.4 mg/dL (8.4-10.2); Carbon Dioxide 36 mmol/L (22-30); Chloride 104 mmol/L (98-107); Estimated Glomerular Filt Rate > 60; Glucose 178 mg/dL (65-110); Potassium 3.8 mmol/L (3.4-5.0); Sodium 143 mmol/L (137-145)
[2022-03-08 08:39] LABS: NT Pro B Type Natriuretic Pept 1160 pg/mL (5-100); Troponin I < 0.012 ng/mL (0.000-0.034)
[2022-03-08 08:42] LABS: Anisocytosis 1+ (NORMAL); Hypochromasia 1+ (NORMAL); Ovalocytes 1+ (NORMAL); Platelet Estimate Adequate (Adequate)
[2022-03-08] MEDS: FUROSEMIDE 40 MG TABLET PO (10:58)
--- NOTE | 2022-03-08 12:04 | PCCCNOTE ---
Late entry: Phone call received from ER to meet the patient about safety. Met with patient at bedside Room 1 ER. Met with patient she states that she feels unsafe at home. Asked her what home is - [facility] [place] [facility] [facility]). Asked about Caitlin Al that she has stayed with before and she states that she has too much going on at her house and she cannot go there. Patient has not been able to get a hold of Father Adriano [place]. Asked her about discharge plan as she states she was at [facility] and Discharged Thursday. She states that they discharged her back to the streets of [place]. Asked if they had given her any resources for homeless shelters and she states no. Called resources [facility] homeless hotline is only available -Thursday 8:30-4:30. [facility] to [facility], no answer, called to [facility] no answer. Called to [place] [facility] they do not have any openings for today but encouraged for patient to call daily. Called to [facility] she states that she has an availability at 3pm -3:30 for a patient. Confirmed address and that patient can be there as a single woman, which she confirms. Asked for her name to confirm her name but she states just to write down [facility]. Update provided to ER Dr. Bunch, and bedside TYRELL Bello. Met with patient and provided written homeless residential resources. Advised that we can cab her to the [facility] walk in residential [facility] that is both genders. If she would prefer women only [facility] has a spot at 3pm. Patient has address for [facility] and provided bus tokens if needed. Advised that if she feels comfortable at [facility] she can certainly stay there. Patient verbalized understanding. Provided cab voucher to bedside TYRELL Jay.
[2022-03-08 12:29] VITALS: BP 140/77; PULSE 95; RESP 14; O2SAT 95
== END 2022-03-08 12:45 | disposition home or self-care (01) ==
PROVIDERS: Emergency Provider Emergency Medicine; PCP Internal Medicine
DX: I11.0 Hypertensive heart disease with heart failure (principal); I50.9 Heart failure, unspecified; S00.93XA Contusion of unspecified part of head, initial encounter; E11.42 Type 2 diabetes mellitus with diabetic polyneuropathy; D64.9 Anemia, unspecified; J44.9 Chronic obstructive pulmonary disease, unspecified; E78.5 Hyperlipidemia, unspecified; K21.9 Gastro-esophageal reflux disease without esophagitis; G89.4 Chronic pain syndrome; G47.33 Obstructive sleep apnea (adult) (pediatric); E66.9 Obesity, unspecified; Z68.41 Body mass index [BMI] 40.0-44.9, adult; Z86.14 Personal history of Methicillin resistant Staphylococcus aureus infection; Z86.711 Personal history of pulmonary embolism; Z86.718 Personal history of other venous thrombosis and embolism; Z79.4 Long term (current) use of insulin; Z79.01 Long term (current) use of anticoagulants; Z79.84 Long term (current) use of oral hypoglycemic drugs; Z96.653 Presence of artificial knee joint, bilateral; Z95.0 Presence of cardiac pacemaker; Z87.891 Personal history of nicotine dependence; R94.31 Abnormal electrocardiogram [ECG] [EKG]; W19.XXXA Unspecified fall, initial encounter
CPT/HCPCS: 36415; 70450; 71045; 80053; 83880; 84484; 85025; 93005; 99284; A9270

== ENCOUNTER 2022-03-26 13:32 | Emergency (ER) | payer OTHER, SELFPAY ==
[2022-03-26] VITALS (8 sets, daily range): BP systolic 135–149; BP diastolic 76–106; PULSE 91–100; RESP 11–17; TEMP 36.4; O2SAT 97–98
--- NOTE | ~2022-03-26 | CT_ITS ---
EXAMINATION: CT brain wo con INDICATION: Head injury COMPARISON: 03/08/2022 TECHNIQUE: Standard unenhanced head CT. The dose-length product (DLP) was 605.33 mGy-cm. The mA was a djusted according to patient size. Iterative reconstruction technique was employed. FINDINGS: There is a midline posterior scalp hematoma. There is no intracranial hemorrhage, acute inf arction, or abnormal mass lesion. The ventricles are normal. There is no abnormal mass effect or midl ine shift. The maguire-white matter differentiation is normal. The basal cisterns are patent. The orbits are normal. The paranasal sinuses, mastoids and calvarium are normal. IMPRESSION: 1. Posterior scalp hematoma without acute intracranial abnormality. Reviewed, dictated and finalized at location [facility].
--- NOTE | 2022-03-26 14:31 | ED.FALL ---
HPI - Fall General Chief Complaint: Fall Stated Complaint: back/neck pain s/p fall out of bed Time Seen by Provider: 03/26/22 13:46 History of Present Illness HPI Narrative: 46-year-old female with history of frequent falls on Eliquis presents after she slipped and fell at her facility from standing, she states that she did hit the back of her head and has some tenderness there otherwise denies any new focal numbness or or neck pain. Related Data Home Medications Medication Instructions Recorded Confirmed atorvastatin 20 mg tablet 20 mg PO DAILY 08/21/19 12/29/21 glipizide 10 mg tablet 10 mg PO DAILY 08/21/19 12/29/21 gabapentin 800 mg tablet 800 mg PO DAILY 02/12/20 12/29/21 levetiracetam 500 mg tablet 500 mg PO BID 02/14/20 12/29/21 (Keppra) apixaban 5 mg tablet (Eliquis) 5 mg PO DAILY 12/29/21 12/29/21 furosemide 20 mg tablet 40 mg PO DAILY 01/18/22 glycopyrrolate 1 mg tablet 1 mg PO DAILY 01/18/22 linagliptin 5 mg tablet (Tradjenta) 1 tablet PO DAILY 01/18/22 pioglitazone 30 mg tablet 1 tablet PO DAILY 01/18/22 clindamycin HCl 150 mg capsule cap 01/19/22 insulin glargine 100 unit/mL (3 ea subcut 01/19/22 mL) subcutaneous pen (Basaglar KwikPen U-100 Insulin) metoprolol succinate 50 mg 50 mg PO DAILY 01/19/22 tablet,extended release 24 hr potassium chloride 20 mEq 1 tablet PO DAILY 01/19/22 tablet,extended release(part/cryst) quetiapine 100 mg tablet 100 mg PO DAILY 01/19/22 Allergies Allergy/AdvReac Type Severity Reaction Status Date / Time lidocaine Allergy Intermediate HIVES Verified 01/18/22 20:14 nitroglycerin Allergy Intermediate HIVES Verified 01/18/22 20:14 aspirin Allergy Mild Hives Verified 01/18/22 20:14 citalopram Allergy Mild Rash Verified 01/18/22 20:14 escitalopram Allergy Mild Hives Verified 01/18/22 20:14 ibuprofen Allergy Mild Hives Verified 01/18/22 20:14 Penicillins Allergy Mild HIVES PER Verified 01/18/22 20:14 UNCODED ALLERGIES 08/27/12 procaine Allergy Mild Hives Verified 01/18/22 20:14 propoxyphene Allergy Mild Hives Verified 01/18/22 20:14 doxycycline Allergy Unknown Hives Verified 01/18/22 20:14 meloxicam Allergy Unknown HIVES Verified 01/18/22 20:14 Sulfa (Sulfonamide Allergy Unknown HIVES PER Verified 01/18/22 20:14 Antibiotics) UNCODED ALLERGIES 08/27/12 sulfamethoxazole Allergy Unknown Hives Verified 01/18/22 20:14 trimethoprim Allergy Unknown Hives Verified 01/18/22 20:14 codeine Allergy Hives Verified 01/18/22 20:14 iohexol Allergy Hives Verified 01/18/22 20:14 [From contrast - CT, X-RAY] adhesive AdvReac Unknown SILK TAPE= Verified 01/18/22 20:14 HIVES imipenem AdvReac Itching Verified 01/18/22 20:14 Review of Systems Review of Systems: CONST: No fever. HEENT: Head trauma C/V: No chest pain RESP: No cough GI: No nausea vomiting : No dysuria. M/S: No new joint pain. SKIN: No rash. NEURO: [Headache without focal numbness or weakness] PSYCH: [No depression] PMFSH Past Medical History Medical History Anemia Anxiety Arthritis Asthma Bipolar disorder Chronic anticoagulation For history of DVT and PE. Chronic obstructive pulmonary disease Chronic pain syndrome Deep venous thrombosis Depression Eczema Gastroesophageal reflux disease Herniated disc History of MRSA infection Hyperlipidemia Hypertension Insulin dependent diabetes mellitus Historically poorly controlled. Obesity Obstructive sleep apnea Non compliant with treatment. Peripheral neuropathy Pulmonary embolism Seizures Sleep apnea Suicide attempt T11 vertebral fracture Nondisplaced fracture of the right T11 inferior articulating facet. No surgical intervention required. Surgical History Surgical History History of bilateral knee replacement History of cardiac catheterization History of cardiac pacemaker For paroxysmal ventricular arrhythmia/
[2022-03-26] MEDS: ACETAMINOPHEN 500 MG TABLET 1000 MG PO (15:31)
--- NOTE | 2022-03-26 15:34 | PC.NURSE ---
pt asking to not go back to [facility], does not have a reason to be admitted here. pt angry about about her Percocet prescriptions. angry that she can not have Percocet on her demand. educated the pt to speak to her staff at [facility] about her complaints and come up with a solution.
== END 2022-03-26 15:48 | disposition home or self-care (01) ==
PROVIDERS: Emergency Provider Emergency Medicine; PCP Internal Medicine
DX: S09.90XA Unspecified injury of head, initial encounter (principal); R29.6 Repeated falls; E11.42 Type 2 diabetes mellitus with diabetic polyneuropathy; J44.9 Chronic obstructive pulmonary disease, unspecified; E78.5 Hyperlipidemia, unspecified; I10 Essential (primary) hypertension; G47.33 Obstructive sleep apnea (adult) (pediatric); K21.9 Gastro-esophageal reflux disease without esophagitis; E66.9 Obesity, unspecified; Z68.42 Body mass index [BMI] 45.0-49.9, adult; F41.9 Anxiety disorder, unspecified; F31.9 Bipolar disorder, unspecified; Z95.0 Presence of cardiac pacemaker; Z96.653 Presence of artificial knee joint, bilateral; Z86.2 Personal history of diseases of the blood and blood-forming organs and certain disorders involving the immune mechanism; Z86.718 Personal history of other venous thrombosis and embolism; Z86.14 Personal history of Methicillin resistant Staphylococcus aureus infection; Z86.711 Personal history of pulmonary embolism; Z79.4 Long term (current) use of insulin; Z79.84 Long term (current) use of oral hypoglycemic drugs; Z79.01 Long term (current) use of anticoagulants; Z87.891 Personal history of nicotine dependence; W06.XXXA Fall from bed, initial encounter
CPT/HCPCS: 70450; 99284; A9270

== ENCOUNTER 2022-04-09 13:59 | Emergency (ER) | payer OTHER, SELFPAY ==
[2022-04-09] VITALS (24 sets, daily range): BP systolic 123–167; BP diastolic 61–100; PULSE 63–95; RESP 11–22; TEMP 36.6–36.8; O2SAT 90–99
--- NOTE | ~2022-04-09 | XR_ITS ---
EXAMINATION: XR chest 2V Exam Date/Time: 04/09/2022 14:20 CDT HISTORY: DULL NON RADIATING chest pain Comparison: 03/08/2022. RESULT: Lines, tubes, and devices: Left chest pacer with intact leads. Lungs and pleura: Diffuse mild groundglass and reticular opacities. Left basilar consolidation. Left lateral costophrenic angle blunting Cardiomediastinal silhouette: Stable. Possible moderate hiatal hernia. Other: No acute osseous or upper abdominal finding. IMPRESSION: Small left pleural effusion with left basilar atelectasis or consolidation. Diffuse opacities may rep resent mild interstitial edema versus crowding and summation artifact. Reviewed, dictated and finalized at location K. IMPRESSION: Small left pleural effusion with left basilar atelectasis or consolidation. Dif fuse opacities may represent mild interstitial edema versus crowding and summat ion artifact.
--- NOTE | 2022-04-09 14:00 | ECG_ITS ---
Measurements Intervals [place] Rate: 89 P: 53 IA: 155 QRS: 47 QRSD: 89 T: 28 QT: 373 QTc: 454 Interpretive Statements SINUS RHYTHM WITH OCCASIONAL VENTRICULAR PREMATURE COMPLEXES LOW QRS VOLTAGE [QRS DEFLECTION < 0.5/1.0 mV IN LIMB/CHEST LEADS] POOR R-WAVE PROGRESSION COMPARED TO ECG 03/08/2022 07:32:56 NO SIGNIFICANT CHANGES Electronically Signed On 04-09-2022 20:01:25 CDT by Aletha Harrison M.D.
--- NOTE | 2022-04-09 16:41 | ED.CHESTPAIN ---
HPI - Chest Pain General Chief Complaint: Chest Pain <Lily Cox MD - Last Filed: 04/09/22 19:56> Stated Complaint: chest pain <Lily Cox MD - Last Filed: 04/09/22 19:56> Time Seen by Provider: 04/09/22 16:41 <Lily Cox MD - Last Filed: 04/09/22 19:56> Source: patient <Lily Cox MD - Last Filed: 04/09/22 19:56> Mode of arrival: ambulatory <Lily Cox MD - Last Filed: 04/09/22 19:56> Limitations: no limitations <Lily Cox MD - Last Filed: 04/09/22 19:56> History of Present Illness HPI narrative: The patient is a 46 year old female who is well known to our facility with history of chronic pain, insulin dependent diabetes, hypertension, presenting to our facility for evaluation of chest pain and shortness of breath. Patient states that she has been compliant with her medications aside from her Lasix which she states that the nursing care facility is refusing to administer to her. She denies fever, chills, she reports dry cough and shortness of breath. She reports leg swelling that is chronic. She denies redness, lesions or rashes. She denies abdominal pain. She states that she has had significant chest pain over the past 30 minutes. <Lily Cox MD - Last Filed: 04/09/22 19:56> Related Data Home Medications: Home Medications Medication Instructions Recorded Confirmed atorvastatin 20 mg tablet 20 mg PO DAILY 08/21/19 12/29/21 glipizide 10 mg tablet 10 mg PO DAILY 08/21/19 12/29/21 gabapentin 800 mg tablet 800 mg PO DAILY 02/12/20 12/29/21 levetiracetam 500 mg tablet 500 mg PO BID 02/14/20 12/29/21 (Keppra) apixaban 5 mg tablet (Eliquis) 5 mg PO DAILY 12/29/21 12/29/21 furosemide 20 mg tablet 40 mg PO DAILY 01/18/22 glycopyrrolate 1 mg tablet 1 mg PO DAILY 01/18/22 linagliptin 5 mg tablet (Tradjenta) 1 tablet PO DAILY 01/18/22 pioglitazone 30 mg tablet 1 tablet PO DAILY 01/18/22 clindamycin HCl 150 mg capsule cap 01/19/22 insulin glargine 100 unit/mL (3 ea subcut 01/19/22 mL) subcutaneous pen (Basaglar KwikPen U-100 Insulin) metoprolol succinate 50 mg 50 mg PO DAILY 01/19/22 tablet,extended release 24 hr potassium chloride 20 mEq 1 tablet PO DAILY 01/19/22 tablet,extended release(part/cryst) quetiapine 100 mg tablet 100 mg PO DAILY 01/19/22 <Lily Cox MD - Last Filed: 04/09/22 19:56> Allergies/Adverse Reactions: Allergies Allergy/AdvReac Type Severity Reaction Status Date / Time lidocaine Allergy Intermediate HIVES Verified 04/09/22 19:00 nitroglycerin Allergy Intermediate HIVES Verified 04/09/22 19:00 aspirin Allergy Mild Hives Verified 04/09/22 19:00 citalopram Allergy Mild Rash Verified 04/09/22 19:00 escitalopram Allergy Mild Hives Verified 04/09/22 19:00 ibuprofen Allergy Mild Hives Verified 04/09/22 19:00 Penicillins Allergy Mild HIVES PER Verified 04/09/22 19:00 UNCODED ALLERGIES 08/27/12 procaine Allergy Mild Hives Verified 04/09/22 19:00 propoxyphene Allergy Mild Hives Verified 04/09/22 19:00 doxycycline Allergy Unknown Hives Verified 04/09/22 19:00 meloxicam Allergy Unknown HIVES Verified 04/09/22 19:00 Sulfa (Sulfonamide Allergy Unknown HIVES PER Verified 04/09/22 19:00 Antibiotics) UNCODED ALLERGIES 08/27/12 sulfamethoxazole Allergy Unknown Hives Verified 04/09/22 19:00 trimethoprim Allergy Unknown Hives Verified 04/09/22 19:00 codeine Allergy Hives Verified 04/09/22 19:00 iohexol Allergy Hives Verified 04/09/22 19:00 [From contrast - CT, X-RAY] adhesive AdvReac Unknown SILK TAPE= Verified 04/09/22 19:00 HIVES imipenem AdvReac Itching Verified 04/09/22 19:00 <Lily Cox MD - Last Filed: 04/09/22 19:56> Review of Systems Review of Systems: CONSTITUTIONAL: Denies fever, chills, or sweats. CARDIOVASCULAR: Reports chest pain and leg edema RESPIRATORY: She reports cough and dyspnea GASTROINTESTINAL: Denies abdominal pain, n
[2022-04-09 17:12] LABS: Basophils Percent Auto 0.4 % (0.2-1.2); Eosinophils Absolute Auto 0.4 K/mm3 (0-0.3); Eosinophils Percent Auto 6.5 % (0-4.4); Hematocrit 29.7 % (37.0-47.0); Immature Granulocyte Absolute 0.02 K/mm3 (0.00-0.031); Immature Granulocyte Percent A 0.4 % (0-0.5); Lymphocytes Absolute Auto 1.34 K/mm3 (0.9-3.2); Lymphocytes Percent Auto 23.7 % (18.3-44.2); Mean Corpuscular HGB Conc 30.3 g/dl (32-36); Mean Corpuscular Hemoglobin 26.3 pg (26-34); Mean Corpuscular Volume 86.8 fl (80-100); Mean Platelet Volume 10.2 fl (7.4-10.4); Monocytes Absolute Auto 0.5 K/mm3 (0.1-0.6); Neutrophils Absolute Auto 3.4 K/mm3 (1.3-6.7); Platelet Count Result 199 k/mm3 (150-375); Red Blood Count 3.42 M/mm3 (4.2-5.4); Red Cell Distribution Width 14.5 % (11.5-14.5); White Blood Count 5.7 K/mm3 (4.5-10.0)
[2022-04-09 17:24] LABS: Alanine Aminotransferase 20 U/L (6-35); Albumin Level 3.6 g/dL (3.5-5.1); Alkaline Phosphatase 121 U/L (38-126); Anion Gap 8 mmol/L (8-16); Aspartate Amino Transferase 29 U/L (14-36); Bilirubin,Total 0.4 mg/dL (0.2-1.3); Blood Urea Nitrogen 42 mg/dL (7-17); Calcium 8.8 mg/dL (8.4-10.2); Carbon Dioxide 33 mmol/L (22-30); Chloride 102 mmol/L (98-107); Estimated Glomerular Filt Rate > 60; Glucose 149 mg/dL (65-110); Lipase 75 U/L (23-300); Potassium 4.3 mmol/L (3.4-5.0); Sodium 143 mmol/L (137-145)
[2022-04-09 17:36] LABS: NT Pro B Type Natriuretic Pept 918 pg/mL (5-100); Troponin I < 0.012 ng/mL (0.000-0.034)
[2022-04-09] MEDS: FUROSEMIDE INJ 40 MG/4 ML VIAL IV PUSH (17:39)
[2022-04-09 17:46] LABS: INR 1.2; Prothrombin Time 14.7 Seconds (11.1-14.7)
[2022-04-09 17:48] LABS: Partial Thromboplastin Time 26.7 SECONDS (22.3-36.8)
[2022-04-09 20:19] LABS: Troponin I < 0.012 ng/mL (0.000-0.034)
[2022-04-09 21:01] LABS: Appearance Urine Clear (Clear); Bilirubin Urine Negative (Negative); Blood Urine 1+ (Negative); Color Urine Yellow (Yellow); Glucose Urine UA Negative (Negative); Ketones Urine Negative (Negative); Leukocyte Esterase Ur 1+ LEU/UL (Negative); Nitrate Urine Negative (Negative); Protein Urine 2+ mg/dL (Negative); Specific Grav Ur 1.015 (1.001-1.035); Urobilinogen Urine 0.2 mg/dL (<2.0); pH Urine 5.5 (5.0-9.0)
[2022-04-09 21:09] LABS: Add Urine Microscopic? YES; WBC Urine 21-30 /hpf
[2022-04-09] MEDS: CEPHALEXIN 500 MG CAPSULE PO (21:22)
--- NOTE | 2022-04-09 22:54 | PC.NURSE ---
[facility]
--- NOTE | 2022-04-09 23:09 | PC.NURSE ---
Fernanda called and notified of rx paperwork and dx. Spoke to TYRELL Aguilar at this time.
== END 2022-04-09 23:06 ==
PROVIDERS: Emergency Medicine; Emergency Provider Emergency Medicine; PCP Internal Medicine
DX: R07.89 Other chest pain (principal); N39.0 Urinary tract infection, site not specified; R33.9 Retention of urine, unspecified; N31.9 Neuromuscular dysfunction of bladder, unspecified; E11.42 Type 2 diabetes mellitus with diabetic polyneuropathy; J44.9 Chronic obstructive pulmonary disease, unspecified; E78.5 Hyperlipidemia, unspecified; I10 Essential (primary) hypertension; G47.33 Obstructive sleep apnea (adult) (pediatric); K21.9 Gastro-esophageal reflux disease without esophagitis; E66.9 Obesity, unspecified; Z68.42 Body mass index [BMI] 45.0-49.9, adult; F41.9 Anxiety disorder, unspecified; F31.9 Bipolar disorder, unspecified; Z95.0 Presence of cardiac pacemaker; Z96.653 Presence of artificial knee joint, bilateral; Z86.2 Personal history of diseases of the blood and blood-forming organs and certain disorders involving the immune mechanism; Z86.718 Personal history of other venous thrombosis and embolism; Z86.14 Personal history of Methicillin resistant Staphylococcus aureus infection; Z86.711 Personal history of pulmonary embolism; Z79.4 Long term (current) use of insulin; Z79.84 Long term (current) use of oral hypoglycemic drugs; Z79.01 Long term (current) use of anticoagulants; Z87.891 Personal history of nicotine dependence; R94.31 Abnormal electrocardiogram [ECG] [EKG]
CPT/HCPCS: 36415; 51702; 71046; 80053; 81001; 83690; 83880; 84484; 85025; 85610; 85730; 87086; 93005; 96374; 99284; A9270; J1940

== ENCOUNTER 2022-04-21 15:04 | Inpatient (IN) | payer OTHER, SELFPAY ==
[2022-04-21] VITALS (7 sets, daily range): BP systolic 118–169; BP diastolic 60–91; PULSE 80–85; RESP 16–18; TEMP 36.3–36.8; O2SAT 94–100
--- NOTE | ~2022-04-21 | XR_ITS ---
XR chest 2V DATE: 04/28/2022 14:46 INDICATION: Congestive heart failure, hypertension, COPD, asthma TECHNIQUE: AP and lateral chest views COMPARISON: 04/21/2022 portable AP chest FINDINGS: Examination is limited, partly 2 2 body habitus and suboptimal lung expansion. Infiltrates and/atelectasis are suggested in the lower lung zones. Borderline or increased heart size. Left-sided transvenous pacemaker with leads overlying right atriu m and right ventricle. No pneumothorax. IMPRESSION: Limited examination suggesting infiltrate or atelectasis in the lower lung zones Reviewed, dictated and finalized at location B. IMPRESSION: Limited examination suggesting infiltrate or atelectasis in the low er lung zones
--- NOTE | ~2022-04-21 | XR_ITS ---
XR abdomen/kub 1V 04/28/2022 14:46 INDICATION: Abdominal pain and distention TECHNIQUE: KUB COMPARISON: 04/22/2022 FINDINGS: Bowel gas pattern is normal. There is no evidence of free air, mass, organomegaly, ascites or obstruction. No abnormal calculi are seen. The bones appear intact. Moderate gastric distention . There are cholecystectomy clips. Moderate colonic fecal loading. IMPRESSION: 1: No acute abdominal abnormality identified. Reviewed, dictated and finalized at location A.
--- NOTE | ~2022-04-21 | US_ITS ---
EXAMINATION: US venous doppler [facility] DATE: 04/24/2022 08:43 INDICATION: Bilateral lower limb edema TECHNIQUE: Rooney scale images without and with compression and Doppler images of the bilateral lower e xtremity veins were obtained. COMPARISON: 11/06/2020 FINDINGS: The right common femoral vein, profunda femoral vein, femoral vein, popliteal vein, peroneal trunk, p osterior tibial veins, and greater saphenous vein are patent. The left common femoral vein, profunda femoral vein, femoral vein, popliteal vein, peroneal trunk, po sterior tibial veins, and greater saphenous vein are patent. IMPRESSION: 1. Patent bilateral lower extremity veins. No evidence of deep venous thrombosis. Reviewed, dictated and finalized at location B. IMPRESSION: 1. Patent bilateral lower extremity veins. No evidence of deep venous thrombosi s.
--- NOTE | ~2022-04-21 | XR_ITS ---
EXAMINATION: XR abdomen/kub 1V INDICATION: Abdominal pain and distention TECHNIQUE: Supine views of the abdomen were obtained on 2 radiographs. COMPARISON: None FINDINGS: Surgical clips in the right upper quadrant are likely from prior cholecystectomy. The exami nation is limited by the patient's body habitus. No dilated loops of bowel are identified. A moderat e volume of colonic stool is present. There is moderate osteoarthritis of the hips. IMPRESSION: 1. Moderate volume of colonic stool. Reviewed, dictated and finalized at location B.
--- NOTE | ~2022-04-21 | XR_ITS ---
EXAMINATION: XR chest 1V portable Exam Date/Time: 04/21/2022 20:05 CDT HISTORY: weakness, HX COPD, HX PE, HX TACHYCARDIA Comparison: 04/09/2022. RESULT: Exam limited by rotation and degree of inspiration. Lines, tubes, and devices: Left chest pacer with intact leads. Lungs and pleura: Diffuse hazy groundglass opacities and indistinct vessels. Patchy left lower lobe airspace disease. Blunting of the left lateral costophrenic angle. Cardiomediastinal silhouette: Stable. Other: No acute osseous or upper abdominal finding. IMPRESSION: Limited exam. Persistent left basilar atelectasis/consolidation. Likely interstitial pulmonary edema. Likely small left pleural effusion. Reviewed, dictated and finalized at location K. IMPRESSION: Limited exam. Persistent left basilar atelectasis/consolidation. Likely interst itial pulmonary edema. Likely small left pleural effusion.
[2022-04-21 16:25] LABS: Basophils Percent Auto 0.5 % (0.2-1.2); Eosinophils Absolute Auto 0.4 K/mm3 (0-0.3); Hemoglobin 8.5 g/dL (12.0-15.0); Immature Granulocyte Absolute 0.01 K/mm3 (0.00-0.031); Immature Granulocyte Percent A 0.2 % (0-0.5); Lymphocytes Absolute Auto 1.06 K/mm3 (0.9-3.2); Lymphocytes Percent Auto 17.2 % (18.3-44.2); Mean Corpuscular HGB Conc 29.3 g/dl (32-36); Mean Corpuscular Volume 88.7 fl (80-100); Mean Platelet Volume 9.6 fl (7.4-10.4); Monocytes Absolute Auto 0.6 K/mm3 (0.1-0.6); Monocytes Percent Auto 9.7 % (2.6-8.5); Neutrophils Absolute Auto 4.1 K/mm3 (1.3-6.7); Neutrophils Percent Auto 66.4 % (45.5-73.1); Platelet Count Result 201 k/mm3 (150-375); Red Blood Count 3.27 M/mm3 (4.2-5.4); Red Cell Distribution Width 14.5 % (11.5-14.5); White Blood Count 6.2 K/mm3 (4.5-10.0)
[2022-04-21 16:38] LABS: Alanine Aminotransferase 17 U/L (6-35); Albumin Level 3.4 g/dL (3.5-5.1); Alkaline Phosphatase 104 U/L (38-126); Anion Gap 8 mmol/L (8-16); Aspartate Amino Transferase 27 U/L (14-36); Bilirubin,Total 0.4 mg/dL (0.2-1.3); Blood Urea Nitrogen 47 mg/dL (7-17); Calcium 8.5 mg/dL (8.4-10.2); Carbon Dioxide 34 mmol/L (22-30); Chloride 100 mmol/L (98-107); Estimated Glomerular Filt Rate > 60; Glucose 182 mg/dL (65-110); Lipase 54 U/L (23-300); Potassium 3.9 mmol/L (3.4-5.0); Sodium 142 mmol/L (137-145)
[2022-04-21 16:49] LABS: NT Pro B Type Natriuretic Pept 1050 pg/mL (5-100)
[2022-04-21 16:57] LABS: Hypochromasia 1+ (NORMAL); Platelet Estimate Adequate (Adequate)
--- NOTE | 2022-04-21 18:03 | PC.NURSE ---
patiet was no answer x2 at triage
[2022-04-21] MEDS: FUROSEMIDE INJ 40 MG/4 ML VIAL IV PUSH (20:33)
[2022-04-21 20:47] LABS: Appearance Urine Clear (Clear); Bilirubin Urine Negative (Negative); Blood Urine 2+ (Negative); Color Urine Yellow (Yellow); Glucose Urine UA Negative (Negative); Ketones Urine Negative (Negative); Leukocyte Esterase Ur 1+ LEU/UL (Negative); Nitrate Urine Negative (Negative); Protein Urine 2+ mg/dL (Negative); Urobilinogen Urine 0.2 mg/dL (<2.0); pH Urine 5.5 (5.0-9.0)
[2022-04-21 20:54] LABS: Add Urine Microscopic? YES; Bacteria Urine Trace /hpf; Mucus Urine Rare /lpf; Squamous Epithelial Cell Urine Rare /hpf (Few); WBC Clumps Urine Present /HPF; WBC Urine 31-50 /hpf
--- NOTE | 2022-04-21 21:09 | ED.GENADULT ---
HPI - General Adult General Chief complaint: Abdominal Pain Stated complaint: epigastic pain Time Seen by Provider: 04/21/22 19:27 History of Present Illness HPI narrative: Patient is a 46-year-old female who presents ER with concerns that she may be having a heart failure exacerbation. Patient sent here by her [facility] due to includes fluid retention. Patient reports she is taking 60 of Lasix. No chest pain or chest pressure. Reports some abdominal discomfort due to the edema. No fevers or chills or sweats. No new cough. Short breath with laying back. Related Data Home Medications Medication Instructions Recorded Confirmed atorvastatin 20 mg tablet 20 mg PO DAILY 08/21/19 12/29/21 glipizide 10 mg tablet 10 mg PO DAILY 08/21/19 12/29/21 gabapentin 800 mg tablet 800 mg PO DAILY 02/12/20 12/29/21 levetiracetam 500 mg tablet 500 mg PO BID 02/14/20 12/29/21 (Keppra) apixaban 5 mg tablet (Eliquis) 5 mg PO DAILY 12/29/21 12/29/21 furosemide 20 mg tablet 40 mg PO DAILY 01/18/22 glycopyrrolate 1 mg tablet 1 mg PO DAILY 01/18/22 linagliptin 5 mg tablet (Tradjenta) 1 tablet PO DAILY 01/18/22 pioglitazone 30 mg tablet 1 tablet PO DAILY 01/18/22 clindamycin HCl 150 mg capsule cap 01/19/22 insulin glargine 100 unit/mL (3 ea subcut 01/19/22 mL) subcutaneous pen (Basaglar KwikPen U-100 Insulin) metoprolol succinate 50 mg 50 mg PO DAILY 01/19/22 tablet,extended release 24 hr potassium chloride 20 mEq 1 tablet PO DAILY 01/19/22 tablet,extended release(part/cryst) quetiapine 100 mg tablet 100 mg PO DAILY 01/19/22 Allergies Allergy/AdvReac Type Severity Reaction Status Date / Time lidocaine Allergy Intermediate HIVES Verified 04/09/22 19:00 nitroglycerin Allergy Intermediate HIVES Verified 04/09/22 19:00 aspirin Allergy Mild Hives Verified 04/09/22 19:00 citalopram Allergy Mild Rash Verified 04/09/22 19:00 escitalopram Allergy Mild Hives Verified 04/09/22 19:00 ibuprofen Allergy Mild Hives Verified 04/09/22 19:00 Penicillins Allergy Mild HIVES PER Verified 04/09/22 19:00 UNCODED ALLERGIES 08/27/12 procaine Allergy Mild Hives Verified 04/09/22 19:00 propoxyphene Allergy Mild Hives Verified 04/09/22 19:00 doxycycline Allergy Unknown Hives Verified 04/09/22 19:00 meloxicam Allergy Unknown HIVES Verified 04/09/22 19:00 Sulfa (Sulfonamide Allergy Unknown HIVES PER Verified 04/09/22 19:00 Antibiotics) UNCODED ALLERGIES 08/27/12 sulfamethoxazole Allergy Unknown Hives Verified 04/09/22 19:00 trimethoprim Allergy Unknown Hives Verified 04/09/22 19:00 codeine Allergy Hives Verified 04/09/22 19:00 iohexol Allergy Hives Verified 04/09/22 19:00 [From contrast - CT, X-RAY] adhesive AdvReac Unknown SILK TAPE= Verified 04/09/22 19:00 HIVES imipenem AdvReac Itching Verified 04/09/22 19:00 Review of Systems Review of Systems: All systems reviewed & are unremarkable except as noted in HPI and below Constitutional: Constitutional: Denies chills, Reports fatigue and Denies fever(s) ENT: Denies nasal congestion and Denies sore throat Cardiovascular: Cardiovascular: Denies chest pain, Denies rapid heart rate and Denies radiating jaw, neck or arm pain Respiratory: Respiratory: Denies cough, Reports dyspnea and Denies wheezing Gastrointestinal: Gastrointestinal: Denies abdominal pain, Denies nausea and Denies vomiting PMFSH Past Medical History Medical History Anemia Anxiety Arthritis Asthma Bipolar disorder Chronic anticoagulation For history of DVT and PE. Chronic obstructive pulmonary disease Chronic pain syndrome Deep venous thrombosis Depression Eczema Gastroesophageal reflux disease Herniated disc History of MRSA infection Hyperlipidemia Hypertension Insulin dependent diabetes mellitus Historically poorly controlled. Obesity Obstructive sleep apnea Non compliant with treatment. Peripheral neuropathy Pulmonary
--- NOTE | 2022-04-21 21:28 | PC.NURSE ---
Pt was sleeping and SPO2 dropped to 78% O2 applied at 2L/NC SPO2 now 100
--- NOTE | 2022-04-21 21:29 | PM.IMHP ---
H&P: HPI History of Present Illness Date/Time: 04/21/22 21:29 Chief Complaint: epigastric pain Narrative: This is a 46-year-old female with past medical history significant for congestive heart failure, type 2 diabetes mellitus, bipolar disorder, drug abuse, obstructive sleep apnea, morbid obesity, hypertension. patient is currently residing at a residential. She was brought for evaluation of epigastric pain clear at the time of my visit I was unable to give any history from the patient most of the history has been obtained upon reviewing medical records and speaking with emergency room physician preliminary workup was significant for urine with many wbc's present. a chest x-ray was reported as: IMPRESSION: Limited exam. Persistent left basilar atelectasis/consolidation. Likely interstitial pulmonary edema. Likely small left pleural effusion. patient had a BNP of 1050 Review of Systems Review of Systems: ROS unobtainable: Yes unobtainable due to mental status ( obtunded) PMFSH Past Medical History Medical History Anemia Anxiety Arthritis Asthma Bipolar disorder Chronic anticoagulation For history of DVT and PE. Chronic obstructive pulmonary disease Chronic pain syndrome Deep venous thrombosis Depression Eczema Gastroesophageal reflux disease Herniated disc History of MRSA infection Hyperlipidemia Hypertension Insulin dependent diabetes mellitus Historically poorly controlled. Obesity Obstructive sleep apnea Non compliant with treatment. Peripheral neuropathy Pulmonary embolism Seizures Sleep apnea Suicide attempt T11 vertebral fracture Nondisplaced fracture of the right T11 inferior articulating facet. No surgical intervention required. Surgical History Surgical History History of bilateral knee replacement History of cardiac catheterization History of cardiac pacemaker For paroxysmal ventricular arrhythmia/tachycardia. History of cholecystectomy Family History Family History Mother Heart disease Acute myocardial infarction Uterine cancer COVID-19 Diabetes mellitus Hypertension Kidney disease Father Heart disease Social History Social History Social History: Code status: Full code. Smoking packs per day: 3 Smoking cigarettes per day: 60.0 Years smoked: 9 Smoking pack-years: 27.00 Smoking status: Never smoker Tobacco type: cigarettes Second hand tobacco smoke exposure: Yes Smoking end date: 01/07/01 Alcohol intake: never Substance use: never Substance use type: does not use Additional living arrangements comments: . Four children being raised by her sister. Additional occupation/education comments: Disabled. Spiritual care concerns: No Meds Home Medications and Allergies Home Medications Medication Instructions Recorded Confirmed Type atorvastatin 20 mg tablet 20 mg PO HS 08/21/19 04/22/22 History glipizide 10 mg tablet 10 mg PO DAILY 08/21/19 04/22/22 History gabapentin 800 mg tablet 300 mg PO TID 02/12/20 04/22/22 History levetiracetam 500 mg tablet 500 mg PO BID 02/14/20 04/22/22 History (Keppra) apixaban 5 mg tablet (Eliquis) 5 mg PO BID 12/29/21 04/22/22 History furosemide 20 mg tablet 60 mg PO BID 01/18/22 04/22/22 History insulin glargine 100 unit/mL (3 30 unit subcut HS 01/19/22 04/22/22 History mL) subcutaneous pen (Irajaglar Dino U-100 Insulin) albuterol sulfate 90 mcg/actuation 2 puff inhalation Q4H PRN 04/22/22 04/22/22 History aerosol inhaler Shortness Of Breath alprazolam 0.5 mg tablet 0.5 mg PO TID 04/22/22 04/22/22 History buspirone 7.5 mg tablet 7.5 mg PO BID 04/22/22 04/22/22 History docusate sodium 100 mg capsule 100 mg PO DAILY 04/22/22 04/22/22 History famotidine 20 mg tablet (Pepci
[2022-04-22] VITALS (16 sets, daily range): BP systolic 133–148; BP diastolic 59–85; PULSE 72–100; RESP 12–21; TEMP 36.1–37.1; O2SAT 92–100
--- NOTE | 2022-04-22 | ECHO_ITS ---
Patient Info Name: Valerie Nguyen Age: 46 years : 1975 Gender: Female Ht: 50 in Wt: 220 lbs BSA: 1.97 m2 HR: 74 bpm BP: 133 / 74 mmHg Heart Rhythm: Sinus Rhythm Technical Quality: Fair Exam Date: 04/22/2022 9:34 AM Exam Location: [facility] Pulmonary Patient Status: Inpatient Admit Date: 04/22/2022 Staff Ordering Physician: Fredy Pressley Gameplay Engineer: Rena Pettit RDCS Attending Provider: Gurjit Feliciano MD Referring Physician: Huan GARCIA; Exam Type: CA echo doppler color flow Study Info Indications - edema Complete two-dimensional, color flow and Doppler transthoracic echocardiogram is performed with contrast to opacify the left ventricle and to improve the deliniation of the left ventricle endocardial borders. Contrast/Agitated Saline Contrast/Ag. Saline: Definity Amount: 2.00 ml Administered By: Rena Pettit RDCS Existing IV Access: Yes IV Access Condition: patent with no signs of infiltration Summary 1. Left ventricular chamber dimension is normal. 2. Left ventricular systolic function is probably normal, estimated at 60-65%. 3. There is mildly increased left ventricular wall thickness. 4. The left ventricular diastolic function is normal. 5. Technically difficult study with limited views. Regional wall motion assessment limited due to poor endomyocardial border definition despite definity contrast enhancement. 6. There is mild tricuspid valve regurgitation. 7. Mild pulmonary hypertension, estimated pulmonary arterial systolic pressure is 37 mmHg. Left Ventricle Technically difficult study with limited views. Regional wall motion assessment limited due to poor endomyocardial border definition despite definity contrast enhancement. Left ventricular chamber dimension is normal. Left ventricular systolic function is probably normal, estimated at 60-65%. There is mildly increased left ventricular wall thickness. The left ventricular diastolic function is normal. Right Ventricle Right ventricular chamber dimension is not well visualized. Linear artifact in right ventricle suggestive of catheter(s), pacemaker lead(s), or ICD lead(s). Left Atria Left atrial chamber dimension is not well visualized. Right Atria Right atrial chamber dimension is not well visualized. Aortic Valve The aortic valve is not well visualized. There is no aortic valve stenosis. There is no aortic valve regurgitation. Pulmonic Valve The pulmonic valve is not well visualized. Mitral Valve The mitral valve has not well visualized. There is no mitral valve regurgitation. Tricuspid Valve The tricuspid valve leaflets are not well visualized. There is mild tricuspid valve regurgitation. Mild pulmonary hypertension, estimated pulmonary arterial systolic pressure is 37 mmHg. Pericardium/Pleural The pericardium appears not well visualized. There is trivial pericardial effusion. Aorta The aortic root size at the sinus of Valsalva is normal. Left Ventricular Outflow Tract Name Value Normal LVOT 2D LVOT Diameter 2.0 cm LVOT Doppler
--- NOTE | 2022-04-22 00:28 | ADMGEN ---
This patient, Valerie Nguyen, was admitted to Medical Room 248-. Patient/family oriented to hospital policies and general routines including ID bracelet, bed and alarms, visiting hours, pain management, procedures, bathroom and other care routines, personal items, smoking policy, room service/diet, and visiting hours. Information on how to activate the Rapid Response Team has been discussed. Patient/Family are encouraged to report perceived risks to care and to ask questions if they do not understand what they are told or what they should do.
[2022-04-22] MEDS: HYDROcodone/acetaminophen (*CRX) 5-325 MG TABLET 1 TAB PO ×4 (06:36→21:33)
[2022-04-22] MEDS: ALPRAZolam (*CRX) 0.5 MG TABLET PO ×3 (07:59→17:00)
[2022-04-22] MEDS: FAMOTIDINE 20 MG TABLET PO (08:00)
[2022-04-22] MEDS: APIXABAN 5 MG TABLET PO ×2 (08:00→17:01)
[2022-04-22] MEDS: DOCUSATE SODIUM 100 MG CAPSULE PO (08:00)
[2022-04-22] MEDS: LORATADINE 10 MG TABLET PO (08:00)
[2022-04-22] MEDS: lisinopriL 20 MG TABLET PO (08:00)
[2022-04-22] MEDS: busPIRone HCL 2.5 MG TABLET PO ×2 (08:00→17:00)
[2022-04-22] MEDS: GABAPENTIN 300 MG CAPSULE PO ×3 (08:00→17:00)
[2022-04-22] MEDS: busPIRone HCL 5 MG TABLET PO ×2 (08:01→17:01)
[2022-04-22] MEDS: METOPROLOL TARTRATE 25 MG TABLET PO ×2 (08:01→21:33)
[2022-04-22] MEDS: levETIRAcetam 500 MG TABLET PO ×2 (08:01→17:01)
[2022-04-22 08:09] LABS: Basophils Percent Auto 0.8 % (0.2-1.2); Eosinophils Absolute Auto 0.3 K/mm3 (0-0.3); Eosinophils Percent Auto 7.6 % (0-4.4); Hematocrit 27.6 % (37.0-47.0); Hemoglobin 7.9 g/dL (12.0-15.0); Immature Granulocyte Absolute 0.01 K/mm3 (0.00-0.031); Immature Granulocyte Percent A 0.3 % (0-0.5); Lymphocytes Absolute Auto 0.91 K/mm3 (0.9-3.2); Lymphocytes Percent Auto 23.7 % (18.3-44.2); Mean Corpuscular HGB Conc 28.6 g/dl (32-36); Mean Corpuscular Hemoglobin 25.6 pg (26-34); Mean Corpuscular Volume 89.3 fl (80-100); Mean Platelet Volume 9.6 fl (7.4-10.4); Monocytes Absolute Auto 0.4 K/mm3 (0.1-0.6); Monocytes Percent Auto 9.6 % (2.6-8.5); Neutrophils Absolute Auto 2.2 K/mm3 (1.3-6.7); Platelet Count Result 180 k/mm3 (150-375); Red Blood Count 3.09 M/mm3 (4.2-5.4); Red Cell Distribution Width 14.6 % (11.5-14.5); White Blood Count 3.8 K/mm3 (4.5-10.0)
[2022-04-22 08:42] LABS: Hypochromasia 1+ (NORMAL); Microcytosis 1+ (NORMAL); Ovalocytes 1+ (NORMAL); Platelet Estimate Adequate (Adequate)
[2022-04-22 08:52] LABS: Glucose Point of Care 92 mg/dl (65-105)
[2022-04-22 09:02] LABS: Hemoglobin A1C 7.9 % (<5.7)
[2022-04-22 09:37] LABS: Iron 37 ug/dL (37-170)
[2022-04-22 09:39] LABS: Alanine Aminotransferase 15 U/L (6-35); Albumin Level 2.9 g/dL (3.5-5.1); Alkaline Phosphatase 90 U/L (38-126); Anion Gap 7 mmol/L (8-16); Aspartate Amino Transferase 20 U/L (14-36); Bilirubin,Total 0.4 mg/dL (0.2-1.3); Blood Urea Nitrogen 43 mg/dL (7-17); Calcium 8.5 mg/dL (8.4-10.2); Carbon Dioxide 33 mmol/L (22-30); Chloride 103 mmol/L (98-107); Estimated Glomerular Filt Rate > 60; Glucose 104 mg/dL (65-110); Potassium 3.9 mmol/L (3.4-5.0); Sodium 143 mmol/L (137-145)
[2022-04-22 09:47] LABS: Transferrin 241 mg/dL (206-381)
[2022-04-22 09:48] LABS: Percent Iron Saturation 11 % (20-50)
[2022-04-22] MEDS: PERFLUTREN LIPID MICROSPHERES 1.5 ML VIAL DILUTED TO 10 ML TOTAL VOLUME IV PUSH (10:11)
--- NOTE | 2022-04-22 10:11 | IVDEFINITY ---
Prior to administration of IV Definity the patient was educated on the risks and benefits of the imaging enhancing agent including potential adverse side effects. The patient verbalized understanding. Allergies were verified. No exclusion criteria were identified and at least one of the following inclusion criteria were met: 1) physician request, 2) patient technically difficult to image (per the [place] [employer] Echocardi[employer] guidelines of two or more segments not discernable within the apical view), or 3) questionable left ventricular function. ?
[2022-04-22] MEDS: FUROSEMIDE INJ 40 MG/4 ML VIAL IV PUSH (10:39)
[2022-04-22 10:45] LABS: Folic Acid 19.6 ng/mL (2.76->20)
--- NOTE | 2022-04-22 11:30 | P.PNIM_ITS ---
Progress Note: A&P Assessment and Plan (1) Acute exacerbation of CHF (congestive heart failure): Code(s): I50.9 - Heart failure, unspecified Status: Acute Assessment and Plan: * Appears to be acute on chronic diastolic heart failure * BNP 1050 * Daily weights * Repeat Echo * Lasix 60mg IV BID, take 60mg PO BID at home * Trend output * Chest xray indicates pulmonary edema with pleural effusions * Supplemental oxygen (2) Obstructive sleep apnea: Code(s): G47.33 - Obstructive sleep apnea (adult) (pediatric) Status: Acute Assessment and Plan: * continue CPAP at nighttime (3) Insulin dependent diabetes mellitus: Status: Acute Assessment and Plan: * Current glucose 182 * Continue glipizide 10mg PO daily, Lantus 30 units HS * Trend glucose * A1c 7.9 * Adjust therapy as indicated * Diabetic diet * Accu cheks AC/HS * hypoglycemic protocol (4) Gastroesophageal reflux disease: Code(s): K21.9 - Gastro-esophageal reflux disease without esophagitis Status: Acute Assessment and Plan: * PPI as needed (5) COPD (chronic obstructive pulmonary disease): Code(s): J44.9 - Chronic obstructive pulmonary disease, unspecified Status: Acute Assessment and Plan: * stable * Does not appear to be in acute exacerbation * Continue albuterol inhaler (6) UTI (urinary tract infection): Code(s): N39.0 - Urinary tract infection, site not specified Status: Acute Assessment and Plan: * UA appears infectious * Continue Levaquin for now * Trend urine output * Adjust antibiotics to culture results (7) Morbidly obese: Code(s): E66.01 - Morbid (severe) obesity due to excess calories Status: Acute Assessment and Plan: * lifestyle and diet modifications (8) Infiltrate of lung present on chest x-ray: Code(s): R91.8 - Other nonspecific abnormal finding of lung field Status: Acute Assessment and Plan: * Chest xray found ground glass opacities * Continue levaquin for now * WBC ok * Trend labs * Sputum culture ordered (9) Anemia: Code(s): D64.9 - Anemia, unspecified Status: Acute Assessment and Plan: * H/H 8.5/29.0 * Anemia labs iron 37, TIBC 349,% saturation 11, transferrin 214, ferritin 22.50, B12 607 folate 19.6 * Supplement ferrous sulfate 324mg p.o. b.i.d. * Trend labs * Transfuse as indicated Plan Patient is complaining of some abdominal pain. KUB ordered. Time Spent With Patient Time with patient: Greater than 35 minutes Subjective Date/time seen: 04/22/22 1130 Interval history: 04/22/22 113 Patient stated that she is having a lot of pain. She stated that sent her legs in her thighs. She does state that she still having abdominal pain which is in the middle of her belly. She complains of chest pain however she states that is from her congestive heart failure. She denies any nausea, vomiting, diarrhea, constipation. She stated that she has been working with PT and OT at the other place and would like to continue. She also stated that she has been short of breath however that is nothing new for her. It was noted that upon examination patient does have edema up to the middle of her abdomen that is pitting. 04/21/22?
--- NOTE | 2022-04-22 11:30 | PM.IMPN ---
Progress Note: A&P Assessment and Plan (1) Acute exacerbation of CHF (congestive heart failure): Code(s): I50.9 - Heart failure, unspecified Status: Acute Assessment and Plan: Appears to be acute on chronic diastolic heart failure BNP 1050 Daily weights Repeat Echo Lasix 60mg IV BID, take 60mg PO BID at home Trend output Chest xray indicates pulmonary edema with pleural effusions Supplemental oxygen (2) Obstructive sleep apnea: Code(s): G47.33 - Obstructive sleep apnea (adult) (pediatric) Status: Acute Assessment and Plan: continue CPAP at nighttime (3) Insulin dependent diabetes mellitus: Status: Acute Assessment and Plan: Current glucose 182 Continue glipizide 10mg PO daily, Lantus 30 units HS Trend glucose A1c 7.9 Adjust therapy as indicated Diabetic diet Accu cheks AC/HS hypoglycemic protocol (4) Gastroesophageal reflux disease: Code(s): K21.9 - Gastro-esophageal reflux disease without esophagitis Status: Acute Assessment and Plan: PPI as needed (5) COPD (chronic obstructive pulmonary disease): Code(s): J44.9 - Chronic obstructive pulmonary disease, unspecified Status: Acute Assessment and Plan: stable Does not appear to be in acute exacerbation Continue albuterol inhaler (6) UTI (urinary tract infection): Code(s): N39.0 - Urinary tract infection, site not specified Status: Acute Assessment and Plan: UA appears infectious Continue Levaquin for now Trend urine output Adjust antibiotics to culture results (7) Morbidly obese: Code(s): E66.01 - Morbid (severe) obesity due to excess calories Status: Acute Assessment and Plan: lifestyle and diet modifications (8) Infiltrate of lung present on chest x-ray: Code(s): R91.8 - Other nonspecific abnormal finding of lung field Status: Acute Assessment and Plan: Chest xray found ground glass opacities Continue levaquin for now WBC ok Trend labs Sputum culture ordered (9) Anemia: Code(s): D64.9 - Anemia, unspecified Status: Acute Assessment and Plan: H/H 8.5/29.0 Anemia labs iron 37, TIBC 349,% saturation 11, transferrin 214, ferritin 22.50, B12 607 folate 19.6 Supplement ferrous sulfate 324mg p.o. b.i.d. Trend labs Transfuse as indicated Plan Patient is complaining of some abdominal pain. KUB ordered. Time Spent With Patient Time with patient: Greater than 35 minutes Subjective Date/time seen: 04/22/22 113 Interval history: 04/22/221129 Patient stated that she is having a lot of pain. She stated that sent her legs in her thighs. She does state that she still having abdominal pain which is in the middle of her belly. She complains of chest pain however she states that is from her congestive heart failure. She denies any nausea, vomiting, diarrhea, constipation. She stated that she has been working with PT and OT at the other place and would like to continue. She also stated that she has been short of breath however that is nothing new for her. It was noted that upon examination patient does have edema up to the middle of her abdomen that is pitting. 04/21/22? 21:29 ?This is a 46-year-old female with past medical history significant for congestive heart failure, type 2 diabetes mellitus, bipolar disorder, drug abuse, obstructive sleep apnea, morbid obesity, hypertension. patient is currently residing at a alf.? She was brought for evaluation of epigastric pain clear at the time of my visit I was unable to give any history from the patient most of the history has been obtained upon reviewing medical records and speaking with emergency room physician preliminary workup was significant for? urine with many wbc's present. a chest x-ray was reported as: IM
[2022-04-22 11:52] LABS: Glucose Point of Care 160 mg/dl (65-105)
[2022-04-22] MEDS: FERROUS SULFATE 324 MG TABLET PO (17:00)
[2022-04-22 17:14] LABS: Glucose Point of Care 220 mg/dl (65-105)
[2022-04-22 20:56] LABS: Glucose Point of Care 181 mg/dl (65-105)
[2022-04-22] MEDS: INSULIN GLARGINE (*BKC) 100 UNITS/ML 30 UNITS SUB-Q (21:23)
[2022-04-22] MEDS: FUROSEMIDE INJ 100 MG/10 ML VIAL 60 MG IV PUSH (21:31)
[2022-04-22] MEDS: ATORVASTATIN 20 MG TABLET PO (21:33)
[2022-04-22] MEDS: MELATONIN 5 MG TABLET PO (21:33)
[2022-04-23] VITALS (11 sets, daily range): BP systolic 112–135; BP diastolic 58–75; PULSE 70–74; RESP 14–18; TEMP 36–36.5; O2SAT 91–99
[2022-04-23] MEDS: HYDROcodone/acetaminophen (*CRX) 5-325 MG TABLET 1 TAB PO ×5 (02:01→21:03)
[2022-04-23] MEDS: levETIRAcetam 500 MG TABLET PO ×2 (08:02→16:48)
[2022-04-23] MEDS: FAMOTIDINE 20 MG TABLET PO (08:02)
[2022-04-23] MEDS: GABAPENTIN 300 MG CAPSULE PO ×3 (08:03→16:48)
[2022-04-23] MEDS: METOPROLOL TARTRATE 25 MG TABLET PO ×2 (08:03→20:56)
[2022-04-23] MEDS: DOCUSATE SODIUM 100 MG CAPSULE PO (08:03)
[2022-04-23] MEDS: APIXABAN 5 MG TABLET PO ×2 (08:03→16:48)
[2022-04-23] MEDS: busPIRone HCL 2.5 MG TABLET PO ×2 (08:03→16:48)
[2022-04-23] MEDS: LORATADINE 10 MG TABLET PO (08:03)
[2022-04-23] MEDS: busPIRone HCL 5 MG TABLET PO ×2 (08:03→16:48)
[2022-04-23] MEDS: FUROSEMIDE INJ 100 MG/10 ML VIAL 60 MG IV PUSH ×2 (08:04→20:57)
[2022-04-23] MEDS: ALPRAZolam (*CRX) 0.5 MG TABLET PO ×3 (08:04→16:48)
[2022-04-23] MEDS: FERROUS SULFATE 324 MG TABLET PO ×2 (08:04→16:48)
[2022-04-23] MEDS: lisinopriL 20 MG TABLET PO (08:04)
[2022-04-23 08:40] LABS: Glucose Point of Care 171 mg/dl (65-105)
[2022-04-23 08:46] LABS: Basophils Percent Auto 0.4 % (0.2-1.2); Eosinophils Absolute Auto 0.3 K/mm3 (0-0.3); Eosinophils Percent Auto 6.8 % (0-4.4); Hematocrit 27.8 % (37.0-47.0); Hemoglobin 8.1 g/dL (12.0-15.0); Immature Granulocyte Absolute 0.02 K/mm3 (0.00-0.031); Immature Granulocyte Percent A 0.4 % (0-0.5); Lymphocytes Absolute Auto 1.07 K/mm3 (0.9-3.2); Lymphocytes Percent Auto 22.9 % (18.3-44.2); Mean Corpuscular HGB Conc 29.1 g/dl (32-36); Mean Corpuscular Hemoglobin 25.6 pg (26-34); Mean Platelet Volume 10.2 fl (7.4-10.4); Monocytes Absolute Auto 0.5 K/mm3 (0.1-0.6); Monocytes Percent Auto 11.5 % (2.6-8.5); Neutrophils Absolute Auto 2.7 K/mm3 (1.3-6.7); Platelet Count Result 196 k/mm3 (150-375); Red Blood Count 3.16 M/mm3 (4.2-5.4); Red Cell Distribution Width 14.4 % (11.5-14.5); White Blood Count 4.7 K/mm3 (4.5-10.0)
[2022-04-23 08:57] LABS: Alanine Aminotransferase 13 U/L (6-35); Albumin Level 3.3 g/dL (3.5-5.1); Alkaline Phosphatase 85 U/L (38-126); Anion Gap 10 mmol/L (8-16); Aspartate Amino Transferase 16 U/L (14-36); Bilirubin,Total 0.2 mg/dL (0.2-1.3); Blood Urea Nitrogen 45 mg/dL (7-17); Calcium 7.9 mg/dL (8.4-10.2); Carbon Dioxide 35 mmol/L (22-30); Chloride 97 mmol/L (98-107); Estimated Glomerular Filt Rate 60; Glucose 176 mg/dL (65-110); Magnesium 2.1 mg/dL (1.6-2.3); Sodium 142 mmol/L (137-145)
[2022-04-23 10:58] LABS: Hypochromasia 1+ (NORMAL); Platelet Estimate Adequate (Adequate)
[2022-04-23 10:59] LABS: Anisocytosis 1+ (NORMAL); Ovalocytes 1+ (NORMAL)
[2022-04-23 11:40] LABS: Glucose Point of Care 176 mg/dl (65-105)
--- NOTE | 2022-04-23 16:20 | PM.IMPN ---
Progress Note: A&P Assessment and Plan (1) Acute exacerbation of CHF (congestive heart failure): Code(s): I50.9 - Heart failure, unspecified Status: Acute Assessment and Plan: questionable. Imaging and physical exam consistent with pulmonary edema and hypervolemia, however echocardiogram shows normal systolic and diastolic function. Continue to diurese with Lasix 60 mg IV b.i.d. monitor intake and output and daily weights (2) Obstructive sleep apnea: Code(s): G47.33 - Obstructive sleep apnea (adult) (pediatric) Status: Acute Assessment and Plan: Continue CPAP at nighttime (3) Insulin dependent diabetes mellitus: Status: Acute Assessment and Plan: A1c is 7.9 genu Accu-Cheks, sliding scale insulin, hypoglycemic protocol continue home Lantus 30 units q.h.s. continue home glipizide (4) Gastroesophageal reflux disease: Code(s): K21.9 - Gastro-esophageal reflux disease without esophagitis Status: Acute Assessment and Plan: no acute issues PPI as needed (5) COPD (chronic obstructive pulmonary disease): Code(s): J44.9 - Chronic obstructive pulmonary disease, unspecified Status: Acute Assessment and Plan: not in acute exacerbation Continue albuterol inhaler (6) UTI (urinary tract infection): Code(s): N39.0 - Urinary tract infection, site not specified Status: Acute Assessment and Plan: ruled out. Urine culture is negative discontinue levofloxacin (7) Infiltrate of lung present on chest x-ray: Code(s): R91.8 - Other nonspecific abnormal finding of lung field Status: Acute Assessment and Plan: CXR demonstrated left basilar atelectasis versus consolidation no indication of pneumonia. No indication for antibiotics continue incentive spirometry likely related to pulmonary edema (8) Anemia: Code(s): D64.9 - Anemia, unspecified Status: Acute Assessment and Plan: H&H remaining stable Supplement ferrous sulfate 324mg p.o. b.i.d. monitor H&H Subjective Date/time seen: 04/23/22 16:20 Interval history: date of service: 04/23/2022 Valerie Nguyen is a 46-year-old female with a history of asthma, anemia, bipolar disorder, COPD, DVT and PE on chronic anticoagulation, seizure disorder, EAMON, multiple other medical problems who is seen in follow-up for edema. She states she has had no improvement of her swelling in her legs, or stomach, or feet. States she is short of breath and this is worse at night. She does endorse orthopnea. she denies chest pain or palpitations. No nausea or vomiting. States her appetite is good. Denies fevers but does endorse chills. States she has not had a bowel movement in 2 days. No issues with her Jenkins catheter. She had a mild headache yesterday but this has resolved today. Review of Systems Review of Systems: All systems reviewed & are unremarkable except as noted in HPI and below Exam Narrative: General: Obese, chronically ill-appearing 46-year-old female, sitting up in bed, comfortable, NARD Neuro: awake, alert and oriented x4, speech clear, no focal neuro deficits noted HEENMT: normocephalic, atraumatic, EOMI, sclerae anicteric Respiratory: clear to auscultation bilaterally, nonlabored breathing Cardio: regular rate, regular rhythm with S1-S2 Abdomen: nondistended, normoactive bowel sounds, soft, nontender to palpation Extremities: bilateral lower extremities are taut, 1+ pitting edema, no erythema or tenderness to palpation, DP pulses 2+ bilaterally Skin: no rashes or lesions, warm and dry Psych: appropriate mood and affect, judgment and insight intact Objective Data Vital Signs Vital Signs: Vital Signs - 24 hr 04/22/22 20:40 04/22/22 21:33 04/22/22 20:45 Temperature 97.6 F Pulse Rate 84 84 84 Respiratory Rate 16 Blood Pressure 145/85 H Pulse Oximetry 9
[2022-04-23 16:54] LABS: Glucose Point of Care 253 mg/dl (65-105)
[2022-04-23] MEDS: INSULIN ASPART (*BKC) 100 UNITS/ML SUB-Q (17:19)
[2022-04-23] MEDS: ATORVASTATIN 20 MG TABLET PO (20:56)
[2022-04-23] MEDS: MELATONIN 5 MG TABLET PO (20:57)
[2022-04-23] MEDS: INSULIN GLARGINE (*BKC) 100 UNITS/ML 30 UNITS SUB-Q (21:13)
[2022-04-23 21:20] LABS: Glucose Point of Care 212 mg/dl (65-105)
[2022-04-24] VITALS (7 sets, daily range): BP systolic 100–137; BP diastolic 55–84; PULSE 77–81; RESP 16–18; TEMP 36.5–37.1; O2SAT 90–97
[2022-04-24 05:52] LABS: Hematocrit 31.4 % (37.0-47.0); Hemoglobin 8.9 g/dL (12.0-15.0); Mean Corpuscular HGB Conc 28.3 g/dl (32-36); Mean Corpuscular Hemoglobin 25.7 pg (26-34); Mean Corpuscular Volume 90.8 fl (80-100); Mean Platelet Volume 10.6 fl (7.4-10.4); Platelet Count Result 210 k/mm3 (150-375); Red Blood Count 3.46 M/mm3 (4.2-5.4); Red Cell Distribution Width 14.7 % (11.5-14.5); White Blood Count 5.6 K/mm3 (4.5-10.0)
[2022-04-24 06:03] LABS: Anion Gap 13 mmol/L (8-16); Blood Urea Nitrogen 57 mg/dL (7-17); Calcium 7.9 mg/dL (8.4-10.2); Carbon Dioxide 32 mmol/L (22-30); Chloride 94 mmol/L (98-107); Estimated Glomerular Filt Rate 37; Glucose 138 mg/dL (65-110); Potassium 4.9 mmol/L (3.4-5.0); Sodium 139 mmol/L (137-145)
[2022-04-24] MEDS: ALPRAZolam (*CRX) 0.5 MG TABLET PO ×3 (08:03→17:03)
[2022-04-24] MEDS: HYDROcodone/acetaminophen (*CRX) 5-325 MG TABLET 1 TAB PO ×3 (08:03→17:45)
[2022-04-24] MEDS: busPIRone HCL 2.5 MG TABLET PO ×2 (08:04→17:04)
[2022-04-24] MEDS: LORATADINE 10 MG TABLET PO (08:04)
[2022-04-24] MEDS: GABAPENTIN 300 MG CAPSULE PO ×3 (08:04→17:05)
[2022-04-24] MEDS: busPIRone HCL 5 MG TABLET PO ×2 (08:04→17:04)
[2022-04-24] MEDS: DOCUSATE SODIUM 100 MG CAPSULE PO (08:04)
[2022-04-24] MEDS: levETIRAcetam 500 MG TABLET PO ×2 (08:04→17:05)
[2022-04-24] MEDS: APIXABAN 5 MG TABLET PO ×2 (08:05→17:03)
[2022-04-24] MEDS: FERROUS SULFATE 324 MG TABLET PO ×2 (08:05→17:05)
[2022-04-24] MEDS: FAMOTIDINE 20 MG TABLET PO (08:05)
[2022-04-24] MEDS: polyethylene glycoL 3350 17 GM POWD.PACK PO (08:05)
[2022-04-24] MEDS: METOPROLOL TARTRATE 25 MG TABLET PO ×2 (08:08→22:04)
[2022-04-24] MEDS: lisinopriL 20 MG TABLET PO (08:08)
[2022-04-24 09:09] LABS: Glucose Point of Care 131 mg/dl (65-105)
[2022-04-24 12:12] LABS: Glucose Point of Care 160 mg/dl (65-105)
--- NOTE | 2022-04-24 15:46 | P.PNIM_ITS ---
Progress Note: A&P Assessment and Plan (1) Acute exacerbation of CHF (congestive heart failure): Code(s): I50.9 - Heart failure, unspecified Status: Acute Assessment and Plan: Imaging and physical exam consistent with pulmonary edema and hypervolemia, however echocardiogram shows normal systolic and diastolic function. * Will obtain records including recent echocardiogram from her collection analyst Dr. Diaz * Continue to diurese with Lasix 60 mg daily (reduced dose due to kidney injury) * Minimal diuresis thus far. Will implement 1200 cc fluid restriction. * monitor intake and output and daily weights (2) Obstructive sleep apnea: Code(s): G47.33 - Obstructive sleep apnea (adult) (pediatric) Status: Acute Assessment and Plan: Continue CPAP at nighttime (3) Insulin dependent diabetes mellitus: Status: Acute Assessment and Plan: A1c is 7.9 * continue Accu-Cheks, sliding scale insulin, hypoglycemic protocol * continue home Lantus 30 units q.h.s. * continue home glipizide (4) Gastroesophageal reflux disease: Code(s): K21.9 - Gastro-esophageal reflux disease without esophagitis Status: Acute Assessment and Plan: no acute issues * PPI as needed (5) COPD (chronic obstructive pulmonary disease): Code(s): J44.9 - Chronic obstructive pulmonary disease, unspecified Status: Acute Assessment and Plan: not in acute exacerbation * Continue albuterol inhaler (6) Infiltrate of lung present on chest x-ray: Code(s): R91.8 - Other nonspecific abnormal finding of lung field Status: Acute Assessment and Plan: CXR demonstrated left basilar atelectasis versus consolidation * no signs/symptoms to suggest pneumonia. No indication for antibiotics * continue incentive spirometry * likely related to pulmonary edema (7) Anemia: Code(s): D64.9 - Anemia, unspecified Status: Acute Assessment and Plan: H&H remaining stable * Supplement ferrous sulfate 324mg p.o. b.i.d. * monitor H&H (8) Acute kidney injury: Code(s): N17.9 - Acute kidney failure, unspecified Status: Acute Assessment and Plan: Increase in creatinine to 1.5 today * likely due to need for diuresis * decrease Lasix dose to 60 mg daily * monitor renal function closely * consider renal ultrasound and nephrology consultation if no improvement/worsening Subjective Date/time seen: 09/15/22 15:46 Interval history: date of service: 04/23/2022 Valerie Nguyen is a 46-year-old female with a history of asthma, anemia, bipolar disorder, COPD, DVT and PE on chronic anticoagulation, seizure disorder, EAMON, CHF, CAD, and multiple other medical problems who is seen in follow-up for CHF. She states that her lower extremity edema is worse today. She endorses abdominal discomfort due to swelling in her abdomen. Reports having a regular bowel movement yesterday. Denies nausea or vomiting. She is tolerating her appetite. She endorses shortness of breath and occasional wh eezing. Denies cough or chest pain. Review of Systems Review of Systems: All systems reviewed & are unremarkable except as noted in HPI and below Exam Narrative: General: Obese, chronically ill-appearing 46-year-old female, sitting up in bed, comfortable, NARD Neuro: awake, alert and oriented x4, speech clear, no focal neuro deficits noted HEENMT: norm
--- NOTE | 2022-04-24 15:46 | PM.IMPN ---
Progress Note: A&P Assessment and Plan (1) Acute exacerbation of CHF (congestive heart failure): Code(s): I50.9 - Heart failure, unspecified Status: Acute Assessment and Plan: Imaging and physical exam consistent with pulmonary edema and hypervolemia, however echocardiogram shows normal systolic and diastolic function. 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 Diaz Continue to diurese with Lasix 60 mg daily (reduced dose due to kidney injury) Minimal diuresis thus far. Will implement 1200 cc fluid restriction. monitor intake and output and daily weights (2) Obstructive sleep apnea: Code(s): G47.33 - Obstructive sleep apnea (adult) (pediatric) Status: Acute Assessment and Plan: Continue CPAP at nighttime (3) Insulin dependent diabetes mellitus: Status: Acute Assessment and Plan: A1c is 7.9 continue Accu-Cheks, sliding scale insulin, hypoglycemic protocol continue home Lantus 30 units q.h.s. continue home glipizide (4) Gastroesophageal reflux disease: Code(s): K21.9 - Gastro-esophageal reflux disease without esophagitis Status: Acute Assessment and Plan: no acute issues PPI as needed (5) COPD (chronic obstructive pulmonary disease): Code(s): J44.9 - Chronic obstructive pulmonary disease, unspecified Status: Acute Assessment and Plan: not in acute exacerbation Continue albuterol inhaler (6) Infiltrate of lung present on chest x-ray: Code(s): R91.8 - Other nonspecific abnormal finding of lung field Status: Acute Assessment and Plan: CXR demonstrated left basilar atelectasis versus consolidation no signs/symptoms to suggest pneumonia. No indication for antibiotics continue incentive spirometry likely related to pulmonary edema (7) Anemia: Code(s): D64.9 - Anemia, unspecified Status: Acute Assessment and Plan: H&H remaining stable Supplement ferrous sulfate 324mg p.o. b.i.d. monitor H&H (8) Acute kidney injury: Code(s): N17.9 - Acute kidney failure, unspecified Status: Acute Assessment and Plan: Increase in creatinine to 1.5 today likely due to need for diuresis decrease Lasix dose to 60 mg daily monitor renal function closely consider renal ultrasound and nephrology consultation if no improvement/worsening Subjective Date/time seen: 04/24/22 15:46 Interval history: date of service: 04/23/2022 Valerie Nguyen is a 46-year-old female with a history of asthma, anemia, bipolar disorder, COPD, DVT and PE on chronic anticoagulation, seizure disorder, EAMON, CHF, CAD, and multiple other medical problems who is seen in follow-up for CHF. She states that her lower extremity edema is worse today. She endorses abdominal discomfort due to swelling in her abdomen. Reports having a regular bowel movement yesterday. Denies nausea or vomiting. She is tolerating her appetite. She endorses shortness of breath and occasional wheezing. Denies cough or chest pain. Review of Systems Review of Systems: All systems reviewed & are unremarkable except as noted in HPI and below Exam Narrative: General: Obese, chronically ill-appearing 46-year-old female, sitting up in bed, comfortable, NARD Neuro: awake, alert and oriented x4, speech clear, no focal neuro deficits noted HEENMT: normocephalic, atraumatic, EOMI, sclerae anicteric Respiratory: clear to auscultation bilaterally, nonlabored breathing Cardio: regular rate, regular rhythm with S1-S2 Abdomen: nondistended, normoactive bowel sounds, soft, nontender to palpation Extremities: bilateral lower extremities are taut, 1+ pitting edema, no erythema or tenderness to palpation, DP pulses 2+ bilaterally Skin: no rashes or lesions, warm and dry Psych: appropriate mood and affect, judgment and insight intact Objective [place]
[2022-04-24] MEDS: INSULIN ASPART (*BKC) 100 UNITS/ML SUB-Q (17:45)
[2022-04-24 17:58] LABS: Glucose Point of Care 217 mg/dl (65-105)
[2022-04-24] MEDS: MELATONIN 5 MG TABLET PO (22:04)
[2022-04-24] MEDS: INSULIN GLARGINE (*BKC) 100 UNITS/ML 30 UNITS SUB-Q (22:05)
[2022-04-24] MEDS: ATORVASTATIN 20 MG TABLET PO (22:05)
[2022-04-24 22:24] LABS: Glucose Point of Care 220 mg/dl (65-105)
[2022-04-25] VITALS (7 sets, daily range): BP systolic 110–152; BP diastolic 53–83; PULSE 70–79; RESP 15–21; TEMP 36.7–37.1; O2SAT 88–98
[2022-04-25 06:08] LABS: Hematocrit 30.1 % (37.0-47.0); Hemoglobin 8.9 g/dL (12.0-15.0); Mean Corpuscular HGB Conc 29.6 g/dl (32-36); Mean Corpuscular Hemoglobin 25.8 pg (26-34); Mean Corpuscular Volume 87.2 fl (80-100); Mean Platelet Volume 10.4 fl (7.4-10.4); Platelet Count Result 216 k/mm3 (150-375); Red Blood Count 3.45 M/mm3 (4.2-5.4); Red Cell Distribution Width 14.7 % (11.5-14.5); White Blood Count 5.2 K/mm3 (4.5-10.0)
[2022-04-25 08:19] LABS: Glucose Point of Care 194 mg/dl (65-105)
[2022-04-25] MEDS: METOPROLOL TARTRATE 25 MG TABLET PO ×2 (08:50→20:21)
[2022-04-25] MEDS: FAMOTIDINE 20 MG TABLET PO (08:50)
[2022-04-25] MEDS: polyethylene glycoL 3350 17 GM POWD.PACK PO (08:50)
[2022-04-25] MEDS: busPIRone HCL 2.5 MG TABLET PO ×2 (08:50→17:57)
[2022-04-25] MEDS: APIXABAN 5 MG TABLET PO ×2 (08:50→17:57)
[2022-04-25] MEDS: busPIRone HCL 5 MG TABLET PO ×2 (08:50→17:58)
[2022-04-25] MEDS: GABAPENTIN 300 MG CAPSULE PO ×3 (08:50→17:57)
[2022-04-25] MEDS: levETIRAcetam 500 MG TABLET PO ×2 (08:51→17:57)
[2022-04-25] MEDS: HYDROcodone/acetaminophen (*CRX) 5-325 MG TABLET 1 TAB PO ×3 (08:51→20:21)
[2022-04-25] MEDS: LORATADINE 10 MG TABLET PO (08:51)
[2022-04-25] MEDS: FERROUS SULFATE 324 MG TABLET PO ×2 (08:51→17:58)
[2022-04-25] MEDS: lisinopriL 20 MG TABLET PO (08:51)
[2022-04-25] MEDS: DOCUSATE SODIUM 100 MG CAPSULE PO (08:51)
[2022-04-25] MEDS: ALPRAZolam (*CRX) 0.5 MG TABLET PO ×3 (08:52→17:56)
[2022-04-25] MEDS: FUROSEMIDE INJ 100 MG/10 ML VIAL 60 MG IV PUSH (09:24)
[2022-04-25 12:32] LABS: Glucose Point of Care 222 mg/dl (65-105)
[2022-04-25] MEDS: INSULIN ASPART (*BKC) 100 UNITS/ML SUB-Q ×2 (12:53→17:48)
--- NOTE | 2022-04-25 13:24 | PM.IMPN ---
Progress Note: A&P Assessment and Plan (1) Acute exacerbation of CHF (congestive heart failure): Code(s): I50.9 - Heart failure, unspecified Status: Acute Assessment and Plan: Imaging and physical exam consistent with pulmonary edema and hypervolemia, however echocardiogram shows normal systolic and diastolic function. 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 Diaz Continue to diurese with Lasix 60 mg daily (reduced dose due to kidney injury) Minimal diuresis thus far. Continue 1200 cc fluid restriction. Monitor intake and output and daily weights Consider cardiology consultation if no improvement (2) Obstructive sleep apnea: Code(s): G47.33 - Obstructive sleep apnea (adult) (pediatric) Status: Acute Assessment and Plan: Continue CPAP at nighttime (3) Insulin dependent diabetes mellitus: Status: Acute Assessment and Plan: A1c is 7.9. Blood sugars slightly elevated this admission continue Accu-Cheks, sliding scale insulin, hypoglycemic protocol continue home Lantus 30 units q.h.s. add scheduled novolog 6 units with meals continue home glipizide (4) Gastroesophageal reflux disease: Code(s): K21.9 - Gastro-esophageal reflux disease without esophagitis Status: Acute Assessment and Plan: no acute issues PPI as needed (5) COPD (chronic obstructive pulmonary disease): Code(s): J44.9 - Chronic obstructive pulmonary disease, unspecified Status: Acute Assessment and Plan: not in acute exacerbation Continue albuterol inhaler (6) Anemia: Code(s): D64.9 - Anemia, unspecified Status: Acute Assessment and Plan: H&H remaining stable Supplement ferrous sulfate 324mg p.o. b.i.d. monitor H&H (7) Acute kidney injury: Code(s): N17.9 - Acute kidney failure, unspecified Status: Acute Assessment and Plan: Improving. Creatinine 1.3 today likely due to need for diuresis decreased Lasix dose to 60 mg daily monitor renal function closely consider renal ultrasound and nephrology consultation if no improvement/worsening Subjective Date/time seen: 04/25/22 13:24 Interval history: date of service: 04/23/2022 Valerie Nguyen is a 46-year-old female with a history of asthma, anemia, bipolar disorder, COPD, DVT and PE on chronic anticoagulation, seizure disorder, EAMON, CHF, CAD, and multiple other medical problems who is seen in follow-up for CHF. She continues to endorse unchanged swelling in her legs and abdomen. Otherwise has no concerns. Denies shortness of breath. No cough. Appetite is good. She endorses discomfort related to Garner catheter and would like to have this removed. Explained need for monitoring of urine output and patient agreeable to proceed with Garner. Review of Systems Review of Systems: All systems reviewed & are unremarkable except as noted in HPI and below Exam Narrative: General: Obese, chronically ill-appearing 46-year-old female, sitting up in bed eating lunch (spilled lots of food on herself), comfortable, NARD Neuro: awake, alert and oriented x4, speech clear, no focal neuro deficits noted HEENMT: normocephalic, atraumatic, EOMI, sclerae anicteric Respiratory: clear to auscultation bilaterally, nonlabored breathing Cardio: regular rate, regular rhythm with S1-S2 Abdomen: Protuberant, normoactive bowel sounds, soft, nontender to palpation : garner catheter patent and draining straw colored urine Extremities: bilateral lower extremities are taut, 1+ pitting edema, no erythema or tenderness to palpation, DP pulses 2+ bilaterally Skin: no rashes or lesions, warm and dry Psych: appropriate mood and affect, judgment and insight intact Objective Data Vital Signs Vital Signs: Vital Signs - 24 hr 04/24/22 16:55 04/24/22 19:50 04/24/22 22:04 Temperature 98.7 F 97.8 F Puls
[2022-04-25 13:46] LABS: Alanine Aminotransferase 15 U/L (6-35); Albumin Level 3.5 g/dL (3.5-5.1); Alkaline Phosphatase 102 U/L (38-126); Anion Gap 12 mmol/L (8-16); Aspartate Amino Transferase 30 U/L (14-36); Bilirubin,Total 0.5 mg/dL (0.2-1.3); Blood Urea Nitrogen 63 mg/dL (7-17); Carbon Dioxide 33 mmol/L (22-30); Chloride 95 mmol/L (98-107); Estimated Glomerular Filt Rate 44; Glucose 192 mg/dL (65-110); Magnesium 2.4 mg/dL (1.6-2.3); Potassium 4.8 mmol/L (3.4-5.0); Sodium 140 mmol/L (137-145)
[2022-04-25] MEDS: TOLNAFTATE 1% POWDER 45 GM BTL 1 APPLIC TOPICAL ×2 (13:57→20:22)
[2022-04-25 17:26] LABS: Glucose Point of Care 223 mg/dl (65-105)
[2022-04-25] MEDS: INSULIN ASPART (*BKC) 100 UNITS/ML 6 UNITS SUB-Q (17:47)
[2022-04-25] MEDS: ATORVASTATIN 20 MG TABLET PO (20:21)
[2022-04-25] MEDS: MELATONIN 5 MG TABLET PO (20:21)
[2022-04-25] MEDS: INSULIN GLARGINE (*BKC) 100 UNITS/ML 30 UNITS SUB-Q (20:22)
[2022-04-25 20:47] LABS: Glucose Point of Care 203 mg/dl (65-105)
[2022-04-26] VITALS (8 sets, daily range): BP systolic 111–140; BP diastolic 60–100; PULSE 72–98; RESP 18–20; TEMP 36.9–37.1; O2SAT 95–99
[2022-04-26 05:52] LABS: Hematocrit 30.8 % (37.0-47.0); Hemoglobin 8.9 g/dL (12.0-15.0); Mean Corpuscular HGB Conc 28.9 g/dl (32-36); Mean Corpuscular Hemoglobin 25.7 pg (26-34); Platelet Count Result 212 k/mm3 (150-375); Red Blood Count 3.46 M/mm3 (4.2-5.4); Red Cell Distribution Width 14.6 % (11.5-14.5); White Blood Count 5.3 K/mm3 (4.5-10.0)
[2022-04-26 06:03] LABS: Anion Gap 8 mmol/L (8-16); Blood Urea Nitrogen 70 mg/dL (7-17); Calcium 8.5 mg/dL (8.4-10.2); Carbon Dioxide 35 mmol/L (22-30); Chloride 98 mmol/L (98-107); Estimated Glomerular Filt Rate 48; Glucose 125 mg/dL (65-110); Potassium 4.8 mmol/L (3.4-5.0); Sodium 141 mmol/L (137-145)
[2022-04-26 08:49] LABS: Glucose Point of Care 104 mg/dl (65-105)
[2022-04-26] MEDS: INSULIN ASPART (*BKC) 100 UNITS/ML 6 UNITS SUB-Q (09:07)
[2022-04-26] MEDS: TOLNAFTATE 1% POWDER 45 GM BTL 1 APPLIC TOPICAL ×2 (09:09→21:10)
[2022-04-26] MEDS: polyethylene glycoL 3350 17 GM POWD.PACK PO (09:09)
[2022-04-26] MEDS: LORATADINE 10 MG TABLET PO (09:09)
[2022-04-26] MEDS: busPIRone HCL 5 MG TABLET PO ×2 (09:09→17:04)
[2022-04-26] MEDS: FERROUS SULFATE 324 MG TABLET PO ×2 (09:10→17:03)
[2022-04-26] MEDS: busPIRone HCL 2.5 MG TABLET PO ×2 (09:10→17:03)
[2022-04-26] MEDS: lisinopriL 20 MG TABLET PO (09:10)
[2022-04-26] MEDS: DOCUSATE SODIUM 100 MG CAPSULE PO (09:10)
[2022-04-26] MEDS: GABAPENTIN 300 MG CAPSULE PO ×3 (09:11→17:03)
[2022-04-26] MEDS: METOPROLOL TARTRATE 25 MG TABLET PO ×2 (09:11→21:25)
[2022-04-26] MEDS: levETIRAcetam 500 MG TABLET PO ×2 (09:11→17:04)
[2022-04-26] MEDS: FUROSEMIDE INJ 100 MG/10 ML VIAL 60 MG IV PUSH (09:12)
[2022-04-26] MEDS: APIXABAN 5 MG TABLET PO ×2 (09:13→17:03)
[2022-04-26] MEDS: methocarbamoL 750 MG TABLET PO (09:13)
[2022-04-26] MEDS: FAMOTIDINE 20 MG TABLET PO (09:13)
[2022-04-26] MEDS: ALPRAZolam (*CRX) 0.5 MG TABLET PO ×3 (09:17→17:03)
--- NOTE | 2022-04-26 11:06 | PM.IMPN ---
Progress Note: A&P Assessment and Plan (1) Acute exacerbation of CHF (congestive heart failure): Code(s): I50.9 - Heart failure, unspecified Status: Acute Assessment and Plan: Imaging and physical exam consistent with pulmonary edema and hypervolemia, however echocardiogram shows normal systolic and diastolic function. 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 Diaz Continue to diurese with IV Lasix 60 mg daily (reduced dose due to kidney injury) Has had very poor diuresis thus far. Finally yesterday made some progress and diuresed about 1 L. Pt feels slightly improved and lower extremity edema also appears better. Continue 1200 cc fluid restriction. Monitor intake and output and daily weights Consider cardiology consultation if no improvement (2) Obstructive sleep apnea: Code(s): G47.33 - Obstructive sleep apnea (adult) (pediatric) Status: Acute Assessment and Plan: Continue CPAP at nighttime (3) Insulin dependent diabetes mellitus: Status: Acute Assessment and Plan: A1c is 7.9. Blood sugars stable today 104-125 continue Accu-Cheks, sliding scale insulin, hypoglycemic protocol continue home Lantus 30 units q.h.s. blood sugars had been running high so scheduled novolog 6 units with meals was added. Continue and monitor glucose trends closely continue home glipizide (4) COPD (chronic obstructive pulmonary disease): Code(s): J44.9 - Chronic obstructive pulmonary disease, unspecified Status: Acute Assessment and Plan: not in acute exacerbation Continue albuterol inhaler (5) Anemia: Code(s): D64.9 - Anemia, unspecified Status: Acute Assessment and Plan: H&H remaining stable Supplement ferrous sulfate 324mg p.o. b.i.d. monitor H&H (6) Acute kidney injury: Code(s): N17.9 - Acute kidney failure, unspecified Status: Acute Assessment and Plan: Improving. Creatinine 1.2 today likely due to need for diuresis decreased Lasix dose to 60 mg daily monitor renal function closely consider renal ultrasound and nephrology consultation if no improvement/worsening Subjective Date/time seen: 04/26/22 11:06 Interval history: date of service: 04/24/2022 Valerie Nguyen is a 46-year-old female with a history of asthma, anemia, bipolar disorder, COPD, DVT and PE on chronic anticoagulation, seizure disorder, EAMON, CHF, CAD, and multiple other medical problems who is seen in follow-up for CHF. she is feeling poorly today. She states I just don't feel good. she did become tearful during my encounter but was not able to elaborate on was making her feel upset. she states that her breathing is a bit better today. She also feels that her lower extremity swelling might be just a bit improved. She denies chest pain. denies abdominal pain. States she has not had a bowel movement because she is not able to get up and go on the toilet. She has no issues with her Garner. She denies nausea, vomiting, fever, or chills. Review of Systems Review of Systems: All systems reviewed & are unremarkable except as noted in HPI and below Exam Narrative: General: Obese, chronically ill-appearing 46-year-old female, sitting up in bed eating breakfast, comfortable, NARD Neuro: awake, alert and oriented x4, speech clear, no focal neuro deficits noted HEENMT: normocephalic, atraumatic, EOMI, sclerae anicteric Respiratory: clear to auscultation bilaterally, nonlabored breathing Cardio: regular rate, regular rhythm with S1-S2 Abdomen: Protuberant, normoactive bowel sounds, soft, nontender to palpation : garner catheter patent and draining straw colored urine Extremities: bilateral lower extremities are taut, 1+ pitting edema, no erythema or tenderness to palpation, DP pulses 2+ bilaterally Skin: no rashes or lesions, warm and dry Psych: appropriate mood a
[2022-04-26] MEDS: HYDROcodone/acetaminophen (*CRX) 5-325 MG TABLET 1 TAB PO (12:01)
[2022-04-26 12:17] LABS: Glucose Point of Care 88 mg/dl (65-105)
[2022-04-26 17:13] LABS: Glucose Point of Care 42 mg/dl (65-105)
[2022-04-26] MEDS: DEXTROSE 50% 25 GM/50 ML SYRINGE IV PUSH (17:15)
--- NOTE | 2022-04-26 17:20 | PC.NURSE ---
Dr Winn notified of blood sugar of 42 and 12.5 mg of Dextrose 50% administered IV.
[2022-04-26 17:55] LABS: Glucose Point of Care 90 mg/dl (65-105)
[2022-04-26] MEDS: ATORVASTATIN 20 MG TABLET PO (21:09)
[2022-04-26] MEDS: MELATONIN 5 MG TABLET PO (21:09)
[2022-04-26 21:16] LABS: Glucose Point of Care 104 mg/dl (65-105)
[2022-04-27] MEDS: HYDROcodone/acetaminophen (*CRX) 5-325 MG TABLET 1 TAB PO ×4 (01:07→16:43)
[2022-04-27 04:20] VITALS: BP 122/89; PULSE 70; RESP 20; TEMP 36.6; O2SAT 92
[2022-04-27 05:31] LABS: Hematocrit 30.8 % (37.0-47.0); Hemoglobin 9.1 g/dL (12.0-15.0); Mean Corpuscular HGB Conc 29.5 g/dl (32-36); Platelet Count Result 214 k/mm3 (150-375); White Blood Count 4.3 K/mm3 (4.5-10.0)
[2022-04-27 06:02] LABS: Alanine Aminotransferase 16 U/L (6-35); Alkaline Phosphatase 109 U/L (38-126); Anion Gap 10 mmol/L (8-16); Aspartate Amino Transferase 21 U/L (14-36); Bilirubin,Total 0.2 mg/dL (0.2-1.3); Blood Urea Nitrogen 63 mg/dL (7-17); Calcium 8.3 mg/dL (8.4-10.2); Carbon Dioxide 33 mmol/L (22-30); Chloride 99 mmol/L (98-107); Estimated Glomerular Filt Rate 60; Glucose 72 mg/dL (65-110); Potassium 4.1 mmol/L (3.4-5.0); Sodium 142 mmol/L (137-145)
[2022-04-27 08:48] LABS: Glucose Point of Care 50 mg/dl (65-105)
[2022-04-27] MEDS: GLUCOSE ORAL GEL 15 GM OF GLUCSE IN 37.5 GM TUBE PO (08:49)
[2022-04-27] MEDS: ALPRAZolam (*CRX) 0.5 MG TABLET PO ×3 (08:50→16:44)
[2022-04-27] MEDS: APIXABAN 5 MG TABLET PO ×2 (08:50→16:44)
[2022-04-27] MEDS: DOCUSATE SODIUM 100 MG CAPSULE PO (08:51)
[2022-04-27] MEDS: FAMOTIDINE 20 MG TABLET PO (08:51)
[2022-04-27] MEDS: busPIRone HCL 5 MG TABLET PO ×2 (08:51→16:45)
[2022-04-27] MEDS: lisinopriL 20 MG TABLET PO (08:51)
[2022-04-27] MEDS: GABAPENTIN 300 MG CAPSULE PO ×3 (08:51→16:44)
[2022-04-27] MEDS: busPIRone HCL 2.5 MG TABLET PO ×2 (08:51→16:45)
[2022-04-27] MEDS: FUROSEMIDE INJ 100 MG/10 ML VIAL 60 MG IV PUSH (08:52)
[2022-04-27] MEDS: polyethylene glycoL 3350 17 GM POWD.PACK PO (08:52)
[2022-04-27] MEDS: FERROUS SULFATE 324 MG TABLET PO ×2 (08:52→16:44)
[2022-04-27 08:53] VITALS: PULSE 70
[2022-04-27] MEDS: METOPROLOL TARTRATE 25 MG TABLET PO ×2 (08:53→21:08)
[2022-04-27] MEDS: levETIRAcetam 500 MG TABLET PO ×2 (08:53→16:45)
[2022-04-27] MEDS: LORATADINE 10 MG TABLET PO (08:53)
[2022-04-27 08:54] VITALS: RESP 20; O2SAT 92
[2022-04-27] MEDS: TOLNAFTATE 1% POWDER 45 GM BTL 1 APPLIC TOPICAL ×2 (08:54→21:06)
[2022-04-27 09:18] LABS: Glucose Point of Care 84 mg/dl (65-105)
--- NOTE | 2022-04-27 11:13 | PM.IMPN ---
Progress Note: A&P Assessment and Plan (1) Acute exacerbation of CHF (congestive heart failure): Code(s): I50.9 - Heart failure, unspecified Status: Acute Assessment and Plan: Imaging and physical exam consistent with pulmonary edema and hypervolemia, however echocardiogram shows normal systolic and diastolic function. 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 Diaz Continue to diurese with IV Lasix 60 mg daily (reduced dose due to kidney injury) Has had very poor diuresis thus far. 04/25 made some progress and diuresed about 1 L. Yesterday one additional liter. Pt feels slightly improved and lower extremity edema also appears better. Continue 1200 cc fluid restriction. Monitor intake and output and daily weights (2) Obstructive sleep apnea: Code(s): G47.33 - Obstructive sleep apnea (adult) (pediatric) Status: Acute Assessment and Plan: Continue CPAP at nighttime (3) Insulin dependent diabetes mellitus: Status: Acute Assessment and Plan: A1c is 7.9. Hypoglycemic episode today, pt was asymptomatic. continue Accu-Cheks, sliding scale insulin, hypoglycemic protocol hold Lantus discontinue scheduled novolog (added bc blood sugars had been running quite high - now too low). hold home glipizide due to hypoglycemia (4) COPD (chronic obstructive pulmonary disease): Code(s): J44.9 - Chronic obstructive pulmonary disease, unspecified Status: Acute Assessment and Plan: not in acute exacerbation Continue albuterol inhaler (5) Anemia: Code(s): D64.9 - Anemia, unspecified Status: Acute Assessment and Plan: H&H remaining stable Supplement ferrous sulfate 324mg p.o. b.i.d. monitor H&H (6) Acute kidney injury: Code(s): N17.9 - Acute kidney failure, unspecified Status: Acute Assessment and Plan: Resolved. Creatinine 1.0 today likely due to need for diuresis decreased Lasix dose to 60 mg daily monitor renal function closely Subjective Date/time seen: 04/27/22 11:13 Interval history: date of service: 04/27/2022 Valerie Nguyen is a 46-year-old female with a history of asthma, anemia, bipolar disorder, COPD, DVT and PE on chronic anticoagulation, seizure disorder, EAMON, CHF, CAD, and multiple other medical problems who is seen in follow-up for CHF. she states she is doing okay today. She did have an episode of hypoglycemia this morning but states she was asymptomatic with this. She states that her breathing is better. She feels that her lower extremity edema is worse today. Notes no change an abdominal swelling. Denies chest pain. No palpitations. No nausea or vomiting. No urinary symptoms. Review of Systems Review of Systems: All systems reviewed & are unremarkable except as noted in HPI and below Exam Narrative: General: Obese, chronically ill-appearing 46-year-old female, sitting up in bed eating breakfast, comfortable, NARD Neuro: awake, alert and oriented x4, speech clear, no focal neuro deficits noted HEENMT: normocephalic, atraumatic, EOMI, sclerae anicteric Respiratory: clear to auscultation bilaterally, nonlabored breathing Cardio: regular rate, regular rhythm with S1-S2 Abdomen: Distended, normoactive bowel sounds, soft, nontender to palpation Extremities: bilateral lower extremities are taut, 1+ pitting edema, no erythema or tenderness to palpation, DP pulses 2+ bilaterally Skin: no rashes or lesions, warm and dry Psych: appropriate mood and affect, judgment and insight intact Objective Data Vital Signs Vital Signs: Vital Signs - 24 hr 04/26/22 12:00 04/26/22 16:00 04/26/22 20:00 Temperature 98.7 F 98.7 F 98.5 F Pulse Rate 88 72 98 Respiratory Rate 20 18 20 Blood Pressure 114/62 111/60 140/100 H Pulse Oximetry 99 98 95 04/26/22 21:25 04/27/22 04:20 04/27/22 08:53 Temperature 97.9 F Puls
[2022-04-27 12:23] LABS: Glucose Point of Care 158 mg/dl (65-105)
[2022-04-27 14:31] VITALS: BP 150/77; PULSE 75; RESP 18; TEMP 36.5; O2SAT 92
[2022-04-27] MEDS: methocarbamoL 750 MG TABLET PO (16:02)
[2022-04-27 17:10] LABS: Glucose Point of Care 202 mg/dl (65-105)
[2022-04-27 17:41] LABS: Glucose Point of Care 233 mg/dl (65-105)
[2022-04-27] MEDS: INSULIN ASPART (*BKC) 100 UNITS/ML SUB-Q (17:47)
[2022-04-27 21:05] VITALS: BP 108/61; PULSE 73; RESP 20; TEMP 36.4; O2SAT 92
[2022-04-27] MEDS: ATORVASTATIN 20 MG TABLET PO (21:06)
[2022-04-27] MEDS: MELATONIN 5 MG TABLET PO (21:06)
[2022-04-27 21:08] VITALS: PULSE 73
[2022-04-27 21:15] LABS: Glucose Point of Care 232 mg/dl (65-105)
[2022-04-28] MEDS: HYDROcodone/acetaminophen (*CRX) 5-325 MG TABLET 1 TAB PO ×3 (05:30→23:03)
[2022-04-28 05:36] VITALS: BP 123/64; PULSE 74; RESP 20; TEMP 36.6; O2SAT 95
[2022-04-28 07:37] LABS: Hematocrit 29.9 % (37.0-47.0); Hemoglobin 8.9 g/dL (12.0-15.0); Mean Corpuscular HGB Conc 29.8 g/dl (32-36); Mean Corpuscular Hemoglobin 26.2 pg (26-34); Mean Corpuscular Volume 87.9 fl (80-100); Mean Platelet Volume 10.5 fl (7.4-10.4); Platelet Count Result 218 k/mm3 (150-375); Red Cell Distribution Width 15.6 % (11.5-14.5); White Blood Count 5.1 K/mm3 (4.5-10.0)
[2022-04-28 07:49] LABS: Anion Gap 11 mmol/L (8-16); Blood Urea Nitrogen 61 mg/dL (7-17); Calcium 8.2 mg/dL (8.4-10.2); Carbon Dioxide 34 mmol/L (22-30); Chloride 99 mmol/L (98-107); Estimated Glomerular Filt Rate 53; Glucose 248 mg/dL (65-110); Potassium 4.1 mmol/L (3.4-5.0); Sodium 144 mmol/L (137-145)
[2022-04-28] MEDS: FERROUS SULFATE 324 MG TABLET PO ×2 (08:01→17:35)
[2022-04-28] MEDS: busPIRone HCL 2.5 MG TABLET PO ×2 (08:02→17:34)
[2022-04-28] MEDS: ALPRAZolam (*CRX) 0.5 MG TABLET PO ×3 (08:02→17:34)
[2022-04-28] MEDS: busPIRone HCL 5 MG TABLET PO ×2 (08:02→17:34)
[2022-04-28] MEDS: DOCUSATE SODIUM 100 MG CAPSULE PO (08:02)
[2022-04-28] MEDS: APIXABAN 5 MG TABLET PO ×2 (08:02→17:34)
[2022-04-28] MEDS: FUROSEMIDE INJ 100 MG/10 ML VIAL 60 MG IV PUSH (08:03)
[2022-04-28] MEDS: FAMOTIDINE 20 MG TABLET PO (08:03)
[2022-04-28] MEDS: GABAPENTIN 300 MG CAPSULE PO ×3 (08:04→17:35)
[2022-04-28] MEDS: LORATADINE 10 MG TABLET PO (08:04)
[2022-04-28] MEDS: levETIRAcetam 500 MG TABLET PO ×2 (08:04→17:36)
[2022-04-28] MEDS: lisinopriL 20 MG TABLET PO (08:05)
[2022-04-28] MEDS: polyethylene glycoL 3350 17 GM POWD.PACK PO (08:05)
[2022-04-28 08:06] VITALS: PULSE 74
[2022-04-28] MEDS: TOLNAFTATE 1% POWDER 45 GM BTL 1 APPLIC TOPICAL ×2 (08:06→20:57)
[2022-04-28] MEDS: METOPROLOL TARTRATE 25 MG TABLET PO ×2 (08:06→20:56)
[2022-04-28 08:47] LABS: Glucose Point of Care 283 mg/dl (65-105)
[2022-04-28] MEDS: INSULIN ASPART (*BKC) 100 UNITS/ML SUB-Q ×3 (09:12→17:35)
[2022-04-28 12:19] LABS: Glucose Point of Care 294 mg/dl (65-105)
[2022-04-28 14:00] VITALS: BP 119/61; PULSE 72; RESP 20; TEMP 36.6; O2SAT 94
--- NOTE | 2022-04-28 16:58 | PM.IMPN ---
Progress Note: A&P Assessment and Plan (1) Acute exacerbation of CHF (congestive heart failure): Code(s): I50.9 - Heart failure, unspecified Status: Acute Assessment and Plan: Imaging and physical exam consistent with pulmonary edema and hypervolemia, however echocardiogram shows normal systolic and diastolic function. 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 Diaz Some improvement following IV diuresis Will transition back to home Lasix 60 mg b.i.d. Continue 1200 cc fluid restriction. Repeat CXR today with resolution of jason left pleural effusion, no evidence of pulmonary edema. Monitor intake and output and daily weights (2) Obstructive sleep apnea: Code(s): G47.33 - Obstructive sleep apnea (adult) (pediatric) Status: Acute Assessment and Plan: Continue CPAP at nighttime (3) Insulin dependent diabetes mellitus: Status: Acute Assessment and Plan: A1c is 7.9. Hypoglycemic episode 04/27, pt was asymptomatic. continue Accu-Cheks, sliding scale insulin, hypoglycemic protocol blood suars running high today after lantus held (due to hypoglycemic episode) resume Lantus at reduced dose, 20 mg HS hold home glipizide due to hypoglycemia (4) COPD (chronic obstructive pulmonary disease): Code(s): J44.9 - Chronic obstructive pulmonary disease, unspecified Status: Acute Assessment and Plan: not in acute exacerbation Continue albuterol inhaler (5) Anemia: Code(s): D64.9 - Anemia, unspecified Status: Acute Assessment and Plan: H&H remaining stable Supplement ferrous sulfate 324mg p.o. b.i.d. monitor H&H (6) Acute kidney injury: Code(s): N17.9 - Acute kidney failure, unspecified Status: Acute Assessment and Plan: Resolved. likely due to need for diuresis resume home PO lasix monitor renal function closely Plan Pt with abdominal distension. KUB unremarkable. Moderate colonic fecal loading. Continue miralax and colace. Subjective Date/time seen: 04/28/22 16:58 Interval history: date of service: 04/28/2022 Valerie Nguyen is a 46-year-old female with a history of asthma, anemia, bipolar disorder, COPD, DVT and PE on chronic anticoagulation, seizure disorder, EAMON, CHF, CAD, and multiple other medical problems who is seen in follow-up for CHF. She states she does not feel well today but does not elaborate on this. She states she has not had a bowel movement, however it is noted that she had 2 bowel movements yesterday. She also states she did not get breakfast, however she had brown sugar and potato crumbs on her gown. she has nausea or vomiting. Endorses shortness breath. States no change in her lower extremity edema. Review of Systems Review of Systems: All systems reviewed & are unremarkable except as noted in HPI and below Exam Narrative: General: Obese, chronically ill-appearing 46-year-old female, sitting up in bed eating breakfast, comfortable, NARD Neuro: awake, alert and oriented x4, speech clear, no focal neuro deficits noted HEENMT: normocephalic, atraumatic, EOMI, sclerae anicteric Respiratory: clear to auscultation bilaterally, nonlabored breathing Cardio: regular rate, regular rhythm with S1-S2 Abdomen: Protuberant, normoactive bowel sounds, soft, nontender to palpation Extremities: bilateral lower extremities with 1+ pitting edema (seems improved from prior exams, skin is less taut), no erythema or tenderness to palpation, DP pulses 2+ bilaterally Skin: no rashes or lesions, warm and dry Psych: appropriate mood and affect, judgment and insight fair Objective Data Vital Signs Vital Signs: Vital Signs - 24 hr 04/27/22 21:05 04/27/22 21:08 04/28/22 05:36 Temperature 97.6 F 97.8 F Pulse Rate 73 73 74 Respiratory Rate 20 20 Blood Pressure 108/61 123/64 Pulse Oximetry 92 95 Oxygen Elizabet
[2022-04-28 17:24] LABS: Glucose Point of Care 377 mg/dl (65-105)
[2022-04-28 20:56] VITALS: PULSE 75
[2022-04-28] MEDS: ATORVASTATIN 20 MG TABLET PO (20:56)
[2022-04-28] MEDS: MELATONIN 5 MG TABLET PO (20:57)
[2022-04-28] MEDS: INSULIN GLARGINE (*BKC) 100 UNITS/ML 20 UNITS SUB-Q (20:57)
[2022-04-28 21:05] LABS: Glucose Point of Care 334 mg/dl (65-105)
[2022-04-28 21:17] VITALS: BP 100/46; PULSE 75; RESP 12; TEMP 37.6; O2SAT 95
[2022-04-29 06:00] VITALS: BP 100/58; PULSE 70; RESP 16; TEMP 36.5; O2SAT 90
[2022-04-29 07:51] LABS: Hematocrit 31.3 % (37.0-47.0); Hemoglobin 9.1 g/dL (12.0-15.0); Mean Corpuscular HGB Conc 29.1 g/dl (32-36); Mean Corpuscular Hemoglobin 25.9 pg (26-34); Mean Corpuscular Volume 88.9 fl (80-100); Platelet Count Result 210 k/mm3 (150-375); Red Blood Count 3.52 M/mm3 (4.2-5.4); Red Cell Distribution Width 15.9 % (11.5-14.5); White Blood Count 5.1 K/mm3 (4.5-10.0)
[2022-04-29 08:09] LABS: Anion Gap 9 mmol/L (8-16); Blood Urea Nitrogen 62 mg/dL (7-17); Calcium 8.2 mg/dL (8.4-10.2); Carbon Dioxide 33 mmol/L (22-30); Chloride 99 mmol/L (98-107); Estimated Glomerular Filt Rate 53; Glucose 249 mg/dL (65-110); Potassium 4.4 mmol/L (3.4-5.0); Sodium 141 mmol/L (137-145)
[2022-04-29 08:44] LABS: Glucose Point of Care 244 mg/dl (65-105)
[2022-04-29] MEDS: INSULIN ASPART (*BKC) 100 UNITS/ML SUB-Q ×2 (08:45→12:42)
[2022-04-29] MEDS: FERROUS SULFATE 324 MG TABLET PO (08:47)
[2022-04-29] MEDS: ALPRAZolam (*CRX) 0.5 MG TABLET PO ×2 (08:48→12:45)
[2022-04-29] MEDS: APIXABAN 5 MG TABLET PO (08:48)
[2022-04-29] MEDS: DOCUSATE SODIUM 100 MG CAPSULE PO (08:49)
[2022-04-29] MEDS: busPIRone HCL 2.5 MG TABLET PO (08:49)
[2022-04-29] MEDS: FAMOTIDINE 20 MG TABLET PO (08:49)
[2022-04-29] MEDS: busPIRone HCL 5 MG TABLET PO (08:49)
[2022-04-29] MEDS: GABAPENTIN 300 MG CAPSULE PO ×2 (08:50→12:45)
[2022-04-29] MEDS: levETIRAcetam 500 MG TABLET PO (08:50)
[2022-04-29] MEDS: FUROSEMIDE 20 MG TABLET 60 MG PO (08:50)
[2022-04-29 08:51] VITALS: PULSE 72
[2022-04-29] MEDS: LORATADINE 10 MG TABLET PO (08:51)
[2022-04-29] MEDS: METOPROLOL TARTRATE 25 MG TABLET PO (08:51)
[2022-04-29] MEDS: lisinopriL 20 MG TABLET PO (08:51)
[2022-04-29] MEDS: TOLNAFTATE 1% POWDER 45 GM BTL 1 APPLIC TOPICAL (08:53)
[2022-04-29] MEDS: polyethylene glycoL 3350 17 GM POWD.PACK PO (08:53)
[2022-04-29] MEDS: HYDROcodone/acetaminophen (*CRX) 5-325 MG TABLET 1 TAB PO (09:23)
--- NOTE | 2022-04-29 10:22 | PCNWS ---
Weekly nutritional screen. Patient is tolerating current diet with adequate intake. No weight loss reported. No nutritional needs at this time.
[2022-04-29 12:22] LABS: Glucose Point of Care 296 mg/dl (65-105)
--- NOTE | 2022-04-29 12:42 | PM.DS ---
DS: Admitting Diagnosis Discharge Date 04/29/2022 Admitting Diagnosis CHF exacerbation DS: Discharge Diagnosis Discharge Diagnosis (1) Acute exacerbation of CHF (congestive heart failure): Code(s): I50.9 - Heart failure, unspecified Status: Acute Assessment and Plan: Imaging and physical exam consistent with pulmonary edema and hypervolemia, however echocardiogram (technically difficult with limited views) shows normal systolic and diastolic function. 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 Diaz, however not received during admission. Pt had clinical improvement following IV diuresis following fluid restriction diet Continue fluid restriction diet 1500 cc daily Conintue PO lasix 60 mg BID Repeat CXR with resolution of jason left pleural effusion, no evidence of pulmonary edema. Monitor daily weights at nursing facility Outpt follow up with rolled seat trimmer (2) Obstructive sleep apnea: Code(s): G47.33 - Obstructive sleep apnea (adult) (pediatric) Status: Acute Assessment and Plan: Continue CPAP at nighttime (3) Insulin dependent diabetes mellitus: Status: Acute Assessment and Plan: A1c is 7.9. Hypoglycemic episode 04/27, pt was asymptomatic. managed during admission with Accu-Cheks, sliding scale insulin, hypoglycemic protocol continue home lantus glipizide held due to hypoglycemic episode. blood sugar will be monitored at outside facility and will need follow up with PCP for review. (4) COPD (chronic obstructive pulmonary disease): Code(s): J44.9 - Chronic obstructive pulmonary disease, unspecified Status: Acute Assessment and Plan: not in acute exacerbation Continue albuterol inhaler (5) Anemia: Code(s): D64.9 - Anemia, unspecified Status: Acute Assessment and Plan: H&H remained stable ferrous sulfate 324mg p.o. b.i.d. monitor H&H (6) Acute kidney injury: Code(s): N17.9 - Acute kidney failure, unspecified Status: Acute Assessment and Plan: Resolved. likely due to need for IV diuresis continue home PO lasix DS: Summary Hospital Course Hospital Course: date of admission: 04/21/2022 date of discharge: 04/29/2022 Valerie Gay is a 46-year-old female with a history of asthma, anemia, bipolar disorder, COPD, DVT and PE on chronic anticoagulation, seizure disorder, EAMON, CHF, CAD, and multiple other medical problems who presented to the emergency department from her senior living due to concerns of CHF exacerbation. reportedly patient was retaining fluid in her lower extremities and abdomen and had orthopnea. On presentation to the ED, her vital signs were stable, she was afebrile, BNP 1050, and CXR showed left basilar atelectasis vs consolidation with interstitial pulmonary edema and likely small left pleural effusion. She was admitted to the hospitalist service for further evaluation and management. She was diuresed with IV Lasix and had very slow improvement with this. Eventually, may progress with diuresis and had some symptomatic improvement. Repeat CXR showed improvement of edema. Based on this, she was determined to no longer require inpatient care and was discharged in hemodynamically stable condition on 04/29/2022. Status at Discharge Overall status at discharge: patient is progressing back to baseline Time Spent with Patient Time attestation: Total time spent providing and/or coordinating discharge services: 42 minutes Time spent: Greater than 30 minutes Exam Narrative: General: Obese, chronically ill-appearing 46-year-old female, sitting up in bed, comfortable, NARD Neuro: awake, alert and oriented x4, speech clear, no focal neuro deficits noted HEENMT: normocephalic, atraumatic, EOMI, sclerae anicteric Respiratory: clear to auscultation bilaterally, nonlabored breathing Cardio: regular rat
[2022-04-29 14:14] LABS: EDCOVIDSCREEN Negative (Negative)
[2022-04-29 14:46] VITALS: BP 109/61; PULSE 80; RESP 16; TEMP 36.2; O2SAT 99
== END 2022-04-29 15:09 | DRG 194 ==
LOC: ANHED 22:17 → ANH2MED 23:58
PROVIDERS: Emergency Medicine; Nurse Practitioner; Physician Assistant; Admitting Provider Internal Medicine; Emergency Provider Emergency Medicine; PCP Internal Medicine; Visit Provider Family Medicine
DX: I11.0 Hypertensive heart disease with heart failure (principal); N17.9 Acute kidney failure, unspecified; E66.01 Morbid (severe) obesity due to excess calories; Z79.01 Long term (current) use of anticoagulants; D64.9 Anemia, unspecified; E11.9 Type 2 diabetes mellitus without complications; F31.9 Bipolar disorder, unspecified; E78.5 Hyperlipidemia, unspecified; I50.9 Heart failure, unspecified; F41.9 Anxiety disorder, unspecified; G40.909 Epilepsy, unspecified, not intractable, without status epilepticus; G47.33 Obstructive sleep apnea (adult) (pediatric); M19.90 Unspecified osteoarthritis, unspecified site; J44.9 Chronic obstructive pulmonary disease, unspecified; G89.4 Chronic pain syndrome; Z20.822 Contact with and (suspected) exposure to COVID-19; I25.10 Atherosclerotic heart disease of native coronary artery without angina pectoris; K21.9 Gastro-esophageal reflux disease without esophagitis; R91.8 Other nonspecific abnormal finding of lung field; Z96.653 Presence of artificial knee joint, bilateral; Z86.718 Personal history of other venous thrombosis and embolism; Z86.711 Personal history of pulmonary embolism; Z68.42 Body mass index [BMI] 45.0-49.9, adult; Z91.19 Patient's noncompliance with other medical treatment and regimen; Z90.49 Acquired absence of other specified parts of digestive tract; Z95.0 Presence of cardiac pacemaker
CPT/HCPCS: 36415; 71045; 71046; 74018; 80048; 80053; 81001; 81025; 82607; 82728; 82746; 82948; 83036; 83540; 83550; 83690; 83735; 83880; 84443; 84466; 85025; 85027; 87086; 87426; 93970; 96365; 96374; 99285; A9270; C8929; C9803; G0378; G0379; J1815; J1940; J1956; Q9957

== ENCOUNTER 2022-08-05 18:27 | Emergency (ER) | payer OTHER, SELFPAY ==
--- NOTE | ~2022-08-05 | XR_ITS ---
EXAMINATION: XR chest 2V Exam Date/Time: 08/05/2022 19:00 ASSEMBLY INSPECTOR HISTORY: MID CHEST PAIN Comparison: 04/28/2022. RESULT: Lines, tubes, and devices: Left chest pacer with intact leads. Lungs and pleura: Low lung volumes with crowding and bibasilar atelectasis. Cardiomediastinal silhouette: Stable. Other: No acute osseous or upper abdominal finding. IMPRESSION: No acute cardiopulmonary process. Reviewed, dictated and finalized at location K. MBLY INSPECTOR
[2022-08-05 18:31] VITALS: BP 118/43; PULSE 73; RESP 17; TEMP 37.2; O2SAT 98
[2022-08-05 18:33] VITALS: BP 118/43; RESP 23; O2SAT 99
--- NOTE | 2022-08-05 18:38 | ECG_ITS ---
Measurements Intervals [place] Rate: 69 P: 93 TX: 171 QRS: 24 QRSD: 81 T: 29 QT: 368 QTc: 397 Interpretive Statements ELECTRONIC ATRIAL PACEMAKER LOW QRS VOLTAGE IN PRECORDIAL LEADS [QRS DEFLECTION < 1.0 mV IN CHEST LEADS] COMPARED TO ECG 04/09/2022 14:39:26 ATRIAL-PACED RHYTHM IS NOW PRESENT Electronically Signed On 08-06-2022 13:14:15 OPAL MINER by Lilli Monet M.D.
[2022-08-05 18:39] VITALS: PULSE 71
[2022-08-05 19:06] LABS: Basophils Percent Auto 0.5 % (0.2-1.2); Eosinophils Absolute Auto 0.4 K/mm3 (0-0.3); Eosinophils Percent Auto 5.2 % (0-4.4); Hemoglobin 11.4 g/dL (12.0-15.0); Immature Granulocyte Absolute 0.07 K/mm3 (0.00-0.031); Immature Granulocyte Percent A 0.9 % (0-0.5); Lymphocytes Absolute Auto 1.78 K/mm3 (0.9-3.2); Lymphocytes Percent Auto 23.8 % (18.3-44.2); Mean Corpuscular HGB Conc 31.7 g/dl (32-36); Mean Corpuscular Hemoglobin 27.3 pg (26-34); Mean Corpuscular Volume 86.1 fl (80-100); Mean Platelet Volume 10.2 fl (7.4-10.4); Monocytes Absolute Auto 0.5 K/mm3 (0.1-0.6); Monocytes Percent Auto 6.2 % (2.6-8.5); Neutrophils Absolute Auto 4.7 K/mm3 (1.3-6.7); Neutrophils Percent Auto 63.4 % (45.5-73.1); Platelet Count Result 256 k/mm3 (150-375); Red Blood Count 4.18 M/mm3 (4.2-5.4); Red Cell Distribution Width 15.4 % (11.5-14.5); White Blood Count 7.5 K/mm3 (4.5-10.0)
[2022-08-05 19:22] LABS: Partial Thromboplastin Time 20.7 SECONDS (22.3-36.8); Prothrombin Time 13.2 Seconds (11.1-14.7)
--- NOTE | 2022-08-05 19:29 | PC.NURSE ---
Pt placed on bed alarm as precaution
[2022-08-05 19:52] LABS: Alanine Aminotransferase 31 U/L (6-35); Albumin Level 3.8 g/dL (3.5-5.1); Alkaline Phosphatase 91 U/L (38-126); Anion Gap 3 mmol/L (8-16); Aspartate Amino Transferase 30 U/L (14-36); Bilirubin,Total 0.4 mg/dL (0.2-1.3); Blood Urea Nitrogen 57 mg/dL (7-17); Calcium 8.5 mg/dL (8.4-10.2); Carbon Dioxide 23 mmol/L (22-30); Chloride 110 mmol/L (98-107); Estimated Glomerular Filt Rate 60; Glucose 283 mg/dL (65-110); Lipase 64 U/L (23-300); Potassium 5.9 mmol/L (3.4-5.0); Sodium 136 mmol/L (137-145)
[2022-08-05 20:02] LABS: Troponin I < 0.012 ng/mL (0.000-0.034)
[2022-08-05] MEDS: INSULIN HUMAN REGULAR (*BKC) 100 UNITS/ML IV PUSH (20:56)
[2022-08-05] MEDS: ACETAMINOPHEN 325 MG TABLET 650 MG PO (20:57)
[2022-08-05] MEDS: SODIUM CHLORIDE 0.9% IV 1,000 ML 999 ML IV CONT (20:57)
--- NOTE | 2022-08-05 21:52 | ED.CHESTPAIN ---
HPI - Chest Pain General Chief Complaint: Chest Pain Stated Complaint: CHEST PAIN Time Seen by Provider: 08/05/22 19:07 History of Present Illness HPI narrative: Patient is a 46-year-old female who presents ER with chest pain. Began 30 minutes prior to arrival here. Central. Pressure. No radiation. No association with nausea or vomiting or sweats. Has history of heart failure but no coronary disease. Denies epigastric pain. Related Data Home Medications Medication Instructions Recorded Confirmed atorvastatin 20 mg tablet 20 mg PO HS 08/21/19 04/22/22 glipizide 10 mg tablet 10 mg PO DAILY 08/21/19 04/22/22 gabapentin 800 mg tablet 300 mg PO TID 02/12/20 04/22/22 levetiracetam 500 mg tablet 500 mg PO BID 02/14/20 04/22/22 (Keppra) apixaban 5 mg tablet (Eliquis) 5 mg PO BID 12/29/21 04/22/22 furosemide 20 mg tablet 60 mg PO BID 01/18/22 04/22/22 insulin glargine 100 unit/mL (3 30 unit subcut HS 01/19/22 04/22/22 mL) subcutaneous pen (Basaglar KwikPen U-100 Insulin) albuterol sulfate 90 mcg/actuation 2 puff inhalation Q4H PRN 04/22/22 04/22/22 aerosol inhaler Shortness Of Breath alprazolam 0.5 mg tablet 0.5 mg PO TID 04/22/22 04/22/22 buspirone 7.5 mg tablet 7.5 mg PO BID 04/22/22 04/22/22 docusate sodium 100 mg capsule 100 mg PO DAILY 04/22/22 04/22/22 famotidine 20 mg tablet (Pepcid) 20 mg PO DAILY 04/22/22 04/22/22 lisinopril 20 mg tablet 20 mg PO DAILY 04/22/22 04/22/22 loratadine 10 mg tablet 10 mg PO DAILY 04/22/22 04/22/22 melatonin 5 mg tablet 5 mg PO HS 04/22/22 04/22/22 methocarbamol 750 mg tablet 750 mg PO Q8H PRN Muscle Pain 04/22/22 04/22/22 metoprolol tartrate 25 mg tablet 25 mg PO BID 04/22/22 04/22/22 Allergies Allergy/AdvReac Type Severity Reaction Status Date / Time lidocaine Allergy Intermediate HIVES Verified 08/05/22 18:30 nitroglycerin Allergy Intermediate HIVES Verified 08/05/22 18:30 aspirin Allergy Mild Hives Verified 08/05/22 18:30 citalopram Allergy Mild Rash Verified 08/05/22 18:30 escitalopram Allergy Mild Hives Verified 08/05/22 18:30 ibuprofen Allergy Mild Hives Verified 08/05/22 18:30 Penicillins Allergy Mild HIVES PER Verified 08/05/22 18:30 UNCODED ALLERGIES 08/27/12 procaine Allergy Mild Hives Verified 08/05/22 18:30 propoxyphene Allergy Mild Hives Verified 08/05/22 18:30 doxycycline Allergy Unknown Hives Verified 08/05/22 18:30 meloxicam Allergy Unknown HIVES Verified 08/05/22 18:30 Sulfa (Sulfonamide Allergy Unknown HIVES PER Verified 08/05/22 18:30 Antibiotics) UNCODED ALLERGIES 08/27/12 sulfamethoxazole Allergy Unknown Hives Verified 08/05/22 18:30 trimethoprim Allergy Unknown Hives Verified 08/05/22 18:30 codeine Allergy Hives Verified 08/05/22 18:30 iohexol Allergy Hives Verified 08/05/22 18:30 [From contrast - CT, X-RAY] adhesive AdvReac Unknown SILK TAPE= Verified 08/05/22 18:30 HIVES imipenem AdvReac Itching Verified 08/05/22 18:30 Review of Systems Review of Systems: All systems reviewed & are unremarkable except as noted in HPI and below Constitutional: Constitutional: Denies chills, Denies fatigue and Denies fever(s) ENT: Denies nasal congestion and Denies sore throat Cardiovascular: Cardiovascular: Reports chest pain, Denies rapid heart rate and Denies radiating jaw, neck or arm pain Respiratory: Respiratory: Denies cough and Denies dyspnea Gastrointestinal: Gastrointestinal: Denies abdominal pain, Denies nausea and Denies vomiting PMFSH Past Medical History Medical History Anemia Anxiety Arthritis Asthma Bipolar disorder Chronic anticoagulation For history of DVT and PE. Chronic obstructive pulmonary disease Chronic pain syndrome Deep venous thrombosis Depression Eczema Gastroesophageal reflux disease Herniated disc History of MRSA infection Hyperlipidemia Hypertension Insulin dependent diabetes mellitus Historically poorly controlled. Obesity Obs
[2022-08-05 21:56] LABS: Influenza A QL RT-PCR Negative (Negative); Influenza B QL RT-PCR Negative (Negative); RSV RNA, RT-PCR Negative (Negative); SARS-CoV-2 RNA PCR Negative
[2022-08-05 22:02] VITALS: BP 106/70; PULSE 70; RESP 13; O2SAT 97
[2022-08-05 22:07] LABS: Troponin I < 0.012 ng/mL (0.000-0.034)
[2022-08-06 01:00] VITALS: BP 117/71; PULSE 78; RESP 24; O2SAT 98
[2022-08-06 01:24] LABS: Troponin I < 0.012 ng/mL (0.000-0.034)
[2022-08-06 02:44] VITALS: BP 113/68; PULSE 78; RESP 18; O2SAT 100
== END 2022-08-06 03:14 ==
PROVIDERS: Family Medicine; Emergency Provider Emergency Medicine; PCP Internal Medicine
DX: R07.9 Chest pain, unspecified (principal); Z20.822 Contact with and (suspected) exposure to COVID-19; Z87.891 Personal history of nicotine dependence; D64.9 Anemia, unspecified; F41.9 Anxiety disorder, unspecified; M19.90 Unspecified osteoarthritis, unspecified site; J45.909 Unspecified asthma, uncomplicated; F31.9 Bipolar disorder, unspecified; Z79.01 Long term (current) use of anticoagulants; I10 Essential (primary) hypertension; E78.5 Hyperlipidemia, unspecified; K21.9 Gastro-esophageal reflux disease without esophagitis; E11.9 Type 2 diabetes mellitus without complications; Z79.4 Long term (current) use of insulin; G47.30 Sleep apnea, unspecified; G40.909 Epilepsy, unspecified, not intractable, without status epilepticus
CPT/HCPCS: 36415; 71046; 80053; 83690; 84484; 85025; 85610; 85730; 87637; 93005; 96361; 96374; 99284; A9270; J1815; J7030

== ENCOUNTER 2022-08-10 12:19 | Inpatient (IN) | payer OTHER, SELFPAY ==
--- NOTE | ~2022-08-10 | XR_ITS ---
Clinical Indication: Fever AP and lateral views of the chest: Comparison: 08/10/2022 Findings: The lungs are clear, without evidence of focal consolidation or pleural effusion. Cardiome diastinal silhouette is stable, with pacemaker device. Bones and soft tissues are unremarkable. Impression: Clear lungs. Reviewed, dictated and finalized at [facility]. IAL SERVICES SUPERVISOR Impression: Clear lungs.
--- NOTE | ~2022-08-10 | US_ITS ---
EXAMINATION: US renal BI DATE: 08/11/2022 09:51 INDICATION: Acute kidney injury. TECHNIQUE: Multiple ultrasound grayscale images of the kidneys were obtained. COMPARISON: CT abdomen and pelvis 06/01/2021 FINDINGS: The right kidney measures 11.3 x 4.9 x 4.7 cm. The left kidney measures 12.0 x 5.3 x 5.1 cm. The kidn eys demonstrate normal parenchymal echogenicity. There is no hydronephrosis. The bladder is normal. IMPRESSION: 1. Normal kidney sizes. No hydronephrosis. Reviewed, dictated and finalized at location A. MASTER/MISTRESS
--- NOTE | ~2022-08-10 | XR_ITS ---
EXAMINATION: XR chest 1V portable DATE: 08/10/2022 13:00 INDICATION: Cough. TECHNIQUE: A single frontal view of the chest was obtained. COMPARISON: Chest 2 views 08/05/2022 FINDINGS: There is no pneumonia, pleural effusion, or pneumothorax. Cardiomegaly is noted. There is a left chest wall pacer with leads in the right atrium and right ventricle. IMPRESSION: 1. Cardiomegaly. Reviewed, dictated and finalized at location A. OGRAPHIC ENGINEER IMPRESSION: 1. Cardiomegaly.
--- NOTE | ~2022-08-10 | CT_ITS ---
EXAMINATION: CT abdomen pelvis wo con DATE: 08/12/2022 17:47 INDICATION: rlq pain and emesis TECHNIQUE: Computed tomography (CT) of the abdomen and pelvis was performed without intravenous contr ast. Automated exposure control and iterative reconstruction technique were employed. The dose-length product was 1405.26 mGy-cm. COMPARISON: 06/01/2021. FINDINGS: Lower thorax: Dependent atelectasis. Partially visualized pacing wires. Liver: Normal. Biliary/Gallbladder: Gallbladder is absent. No bile duct dilation. Pancreas: Fatty infiltration. Spleen: Normal. Adrenals:No mass. Kidneys: No mass, stone, or hydronephrosis. Mild bilateral perinephric stranding. GI tract: No small or large bowel dilation. Normal appendix. Mesentery/Peritoneum: No ascites, mass, or free air. Retroperitoneum: No mass. Pelvis: Bladder wall thickening. Normal uterus and ovaries. Small volume free pelvic fluid, within ph ysiologic range.. Soft Tissues: Uncomplicated small fat-containing umbilical hernia. Mild subcutaneous edema in the bhavya nk. Bones: No acute osseous finding. IMPRESSION: Bladder wall thickening as can be seen with cystitis. Otherwise, no acute abdominopelvic process dete cted. Reviewed, dictated and finalized at location K. RE CLERK IMPRESSION: Bladder wall thickening as can be seen with cystitis. Otherwise, no acute abdom inopelvic process detected.
[2022-08-10 12:20] VITALS: BP 123/60; PULSE 82; RESP 18; TEMP 37.3; O2SAT 100
[2022-08-10 12:25] VITALS: O2SAT 100
--- NOTE | 2022-08-10 13:04 | ED.URI ---
HPI - URI/Sore Throat General Chief Complaint: Upper Respiratory Infection Stated Complaint: fever, body aches History of Present Illness HPI Narrative: 46-year-old female who presents the ER with concerns for COVID-19. She reports over the last day she has developed fever and body aches as well as some cough. No chest pain or chest pressure. No hypoxia. She was sent from her retirement for evaluation. Patient denies orthopnea. Related Data Home Medications Medication Instructions Recorded Confirmed atorvastatin 20 mg tablet 20 mg PO HS 08/21/19 04/22/22 glipizide 10 mg tablet 10 mg PO DAILY 08/21/19 04/22/22 gabapentin 800 mg tablet 300 mg PO TID 02/12/20 04/22/22 levetiracetam 500 mg tablet 500 mg PO BID 02/14/20 04/22/22 (Keppra) apixaban 5 mg tablet (Eliquis) 5 mg PO BID 12/29/21 04/22/22 furosemide 20 mg tablet 60 mg PO BID 01/18/22 04/22/22 insulin glargine 100 unit/mL (3 30 unit subcut HS 01/19/22 04/22/22 mL) subcutaneous pen (Basaglar KwikPen U-100 Insulin) albuterol sulfate 90 mcg/actuation 2 puff inhalation Q4H PRN 04/22/22 04/22/22 aerosol inhaler Shortness Of Breath alprazolam 0.5 mg tablet 0.5 mg PO TID 04/22/22 04/22/22 buspirone 7.5 mg tablet 7.5 mg PO BID 04/22/22 04/22/22 docusate sodium 100 mg capsule 100 mg PO DAILY 04/22/22 04/22/22 famotidine 20 mg tablet (Pepcid) 20 mg PO DAILY 04/22/22 04/22/22 lisinopril 20 mg tablet 20 mg PO DAILY 04/22/22 04/22/22 loratadine 10 mg tablet 10 mg PO DAILY 04/22/22 04/22/22 melatonin 5 mg tablet 5 mg PO HS 04/22/22 04/22/22 methocarbamol 750 mg tablet 750 mg PO Q8H PRN Muscle Pain 04/22/22 04/22/22 metoprolol tartrate 25 mg tablet 25 mg PO BID 04/22/22 04/22/22 Allergies Allergy/AdvReac Type Severity Reaction Status Date / Time lidocaine Allergy Intermediate HIVES Verified 08/10/22 12:26 nitroglycerin Allergy Intermediate HIVES Verified 08/10/22 12:26 aspirin Allergy Mild Hives Verified 08/10/22 12:26 citalopram Allergy Mild Rash Verified 08/10/22 12:26 escitalopram Allergy Mild Hives Verified 08/10/22 12:26 ibuprofen Allergy Mild Hives Verified 08/10/22 12:26 Penicillins Allergy Mild HIVES PER Verified 08/10/22 12:26 UNCODED ALLERGIES 08/27/12 procaine Allergy Mild Hives Verified 08/10/22 12:26 propoxyphene Allergy Mild Hives Verified 08/10/22 12:26 doxycycline Allergy Unknown Hives Verified 08/10/22 12:26 meloxicam Allergy Unknown HIVES Verified 08/10/22 12:26 Sulfa (Sulfonamide Allergy Unknown HIVES PER Verified 08/10/22 12:26 Antibiotics) UNCODED ALLERGIES 08/27/12 sulfamethoxazole Allergy Unknown Hives Verified 08/10/22 12:26 trimethoprim Allergy Unknown Hives Verified 08/10/22 12:26 codeine Allergy Hives Verified 08/10/22 12:26 iohexol Allergy Hives Verified 08/10/22 12:26 [From contrast - CT, X-RAY] adhesive AdvReac Unknown SILK TAPE= Verified 08/10/22 12:26 HIVES imipenem AdvReac Itching Verified 08/10/22 12:26 Review of Systems Constitutional: Constitutional: Reports no additional constitutional complaints ENT: Reports system reviewed and no additional complaints, except as documented Cardiovascular: Cardiovascular: Reports no additional cardiovascular complaints Respiratory: Respiratory: Reports no additional respiratory complaints [facility] Past Medical History Medical History Anemia Anxiety Arthritis Asthma Bipolar disorder Chronic anticoagulation For history of DVT and PE. Chronic obstructive pulmonary disease Chronic pain syndrome Deep venous thrombosis Depression Eczema Gastroesophageal reflux disease Herniated disc History of MRSA infection Hyperlipidemia Hypertension Insulin dependent diabetes mellitus Historically poorly controlled. Obesity Obstructive sleep apnea Non compliant with treatment. Peripheral neuropathy Pulmonary embolism Seizures Sleep apnea Suicide attempt T11 vertebral fracture Nondisplaced fracture of t
[2022-08-10 13:37] LABS: Basophils Percent Auto 0.3 % (0.2-1.2); Eosinophils Absolute Auto 0.1 K/mm3 (0-0.3); Eosinophils Percent Auto 0.8 % (0-4.4); Hemoglobin 11.4 g/dL (12.0-15.0); Immature Granulocyte Absolute 0.09 K/mm3 (0.00-0.031); Immature Granulocyte Percent A 0.7 % (0-0.5); Immature Platelet Fraction Pct 2.8 % (0.9-11.2); Lymphocytes Absolute Auto 1.13 K/mm3 (0.9-3.2); Lymphocytes Percent Auto 8.5 % (18.3-44.2); Mean Corpuscular HGB Conc 32.6 g/dl (32-36); Mean Corpuscular Hemoglobin 27.7 pg (26-34); Mean Platelet Volume 9.8 fl (7.4-10.4); Monocytes Absolute Auto 0.7 K/mm3 (0.1-0.6); Monocytes Percent Auto 5.6 % (2.6-8.5); Neutrophils Absolute Auto 11.1 K/mm3 (1.3-6.7); Neutrophils Percent Auto 84.1 % (45.5-73.1); Platelet Count Result 216 k/mm3 (150-375); Red Blood Count 4.12 M/mm3 (4.2-5.4); Red Cell Distribution Width 14.9 % (11.5-14.5); White Blood Count 13.2 K/mm3 (4.5-10.0)
[2022-08-10 13:54] LABS: Anion Gap 10 mmol/L (8-16); Blood Urea Nitrogen 64 mg/dL (7-17); Calcium 8.5 mg/dL (8.4-10.2); Carbon Dioxide 19 mmol/L (22-30); Chloride 102 mmol/L (98-107); Estimated Glomerular Filt Rate 27; Glucose 121 mg/dL (65-110); Potassium 5.3 mmol/L (3.4-5.0); Sodium 131 mmol/L (137-145)
[2022-08-10 14:11] LABS: Influenza A QL RT-PCR Negative (Negative); Influenza B QL RT-PCR Negative (Negative); SARS-CoV-2 RNA PCR Negative
[2022-08-10] MEDS: SODIUM CHLORIDE 0.9% IV 1,000 ML 999 ML IV CONT (14:23)
[2022-08-10 14:56] VITALS: BP 108/55; PULSE 86; RESP 18; O2SAT 100
[2022-08-10] MEDS: ACETAMINOPHEN 325 MG TABLET 650 MG PO ×2 (15:00→17:27)
[2022-08-10 15:04] LABS: Add Urine Microscopic? YES; Appearance Urine Clear (Clear); Bilirubin Urine Negative (Negative); Blood Urine Negative (Negative); Color Urine Yellow (Yellow); Glucose Urine UA Negative (Negative); Ketones Urine Negative (Negative); Leukocyte Esterase Ur Trace LEU/UL (Negative); Nitrate Urine Negative (Negative); Protein Urine Negative (Negative); Specific Grav Ur 1.015 (1.001-1.035); Urobilinogen Urine 0.2 mg/dL (<2.0); pH Urine 5.5 (5.0-9.0)
[2022-08-10 15:29] LABS: Hyaline Casts Urine 20-29 /lpf; Mucus Urine Rare /lpf; RBC Urine 0-2 /hpf (0-2); Squamous Epithelial Cell Urine Rare /hpf (Few); WBC Urine 0-3 /hpf
--- NOTE | 2022-08-10 16:34 | PC.NURSE ---
heart health food dinner tray ordered
[2022-08-10 16:52] VITALS: BP 103/57; PULSE 80; RESP 18; O2SAT 100
[2022-08-10 17:00] VITALS: BMI 32.5
--- NOTE | 2022-08-10 17:16 | ADMGEN ---
This patient, Valerie Nguyen, was admitted to Medical Room 344-01. Patient/family oriented to hospital policies and general routines including ID bracelet, bed and alarms, visiting hours, pain management, procedures, bathroom and other care routines, personal items, smoking policy, room service/diet, and visiting hours. Information on how to activate the Rapid Response Team has been discussed. Patient/Family are encouraged to report perceived risks to care and to ask questions if they do not understand what they are told or what they should do.
[2022-08-10 17:18] VITALS: BP 102/55; PULSE 81; RESP 16; TEMP 37.1; O2SAT 100
[2022-08-10] MEDS: SODIUM CHLORIDE 0.9% IV 1,000 ML 125 ML IV CONT (17:27)
[2022-08-10 17:40] LABS: Glucose Point of Care 134 mg/dl (65-105)
[2022-08-10 19:40] VITALS: BP 97/45; PULSE 75; RESP 16; TEMP 36.6; O2SAT 99
[2022-08-10 22:10] LABS: Glucose Point of Care 257 mg/dl (65-105)
--- NOTE | 2022-08-10 23:49 | PM.IMHP ---
H&P: HPI History of Present Illness Date/Time: 08/10/22 23:49 Chief Complaint: Upper respiratory infection the body Narrative: this is a 46-year-old patient who resides at [facility]. She presented to the emergency room with concern for COVID. The patient has been complaining of fever chills and body aches for the last day. No chest pain. The patient stated that she had nausea and vomiting and diarrhea. He is on room air and denies any shortness of breath . White count is 13.2. H&H is 11.4 And 35.0. sodium is 131. Potassium 5.3. BUN 64 creatinine 2.0. Blood sugar was 257. Urine is negative. The patient was negative for influenza A/B and COVID. The patient was started on IV fluids and given Tylenol in the emergency room. The patient is being admitted to observation status on the date of service of 08/10/2022. Review of Systems Review of Systems: See HPI All systems reviewed & are unremarkable except as noted in HPI and below Constitutional: Constitutional: Reports as per HPI and Reports no additional constitutional complaints Eyes: Eyes: Reports as per HPI and Reports no additional eye complaints ENT: Reports system reviewed and no additional complaints, except as documented and Reports Normal hearing present Cardiovascular: Cardiovascular: Reports no additional cardiovascular complaints Respiratory: Respiratory: Reports no additional respiratory complaints and Reports no additional respiratory complaints Gastrointestinal: Gastrointestinal: Reports as per HPI and Reports no additional gastrointestinal complaints Musculoskeletal: Musculoskeletal: Reports no additional musculoskeletal complaints Integumentary/Breasts: Skin/Breast: Reports system reviewed and no additional complaints, except as docu and Reports as per HPI Neurologic: Reports system reviewed and no additional complaints, except as documented, Reports as per HPI and Reports Normal hearing present Psychiatric: Psychiatric: Reports no additional psychiatric complaints and Reports as per HPI Endocrine: Endocrine: Reports no additional endocrine complaints Hematologic/Lymphatic: Hematologic/Lymphatic: Reports no additional hematologic/lymphatic complaints Allergic/Immunologic: Allergic/Immunologic: Reports no additional allergic/immunologic complaints [facility] Past Medical History Medical History (Updated 08/11/22 @ 00:14 by Misty Holman NP) Anemia Anxiety Arthritis Asthma Bipolar disorder Chronic anticoagulation For history of DVT and PE. Chronic obstructive pulmonary disease Chronic pain syndrome Deep venous thrombosis Depression Eczema Gastroesophageal reflux disease Herniated disc History of MRSA infection Hyperlipidemia Hypertension Insulin dependent diabetes mellitus Historically poorly controlled. Obesity Obstructive sleep apnea Non compliant with treatment. Peripheral neuropathy Pulmonary embolism Seizures Sleep apnea Suicide attempt T11 vertebral fracture Nondisplaced fracture of the right T11 inferior articulating facet. No surgical intervention required. Surgical History Surgical History History of bilateral knee replacement History of cardiac catheterization History of cardiac pacemaker For paroxysmal ventricular arrhythmia/tachycardia. History of cholecystectomy Family History Family History Mother Heart disease Acute myocardial infarction Uterine cancer COVID-19 Diabetes mellitus Hypertension Kidney disease Father Heart disease Social History Social History (Updated 08/10/22 @ 23:59 by Misty Holman NP) Social History: The patient is disabled. The patient resides at [facility]. She is a former smoker. She has also used drugs in the past. Code status: Full code. Smoking packs per day: 1.5 Smoking cigarettes per day: 30.0 Years smoked: 9 Smok
[2022-08-11] VITALS (7 sets, daily range): BP systolic 100–123; BP diastolic 53–76; PULSE 74–99; RESP 16–18; TEMP 36.7–38.1; O2SAT 97–100
[2022-08-11] MEDS: MELATONIN 5 MG TABLET PO ×2 (00:33→21:01)
[2022-08-11] MEDS: METOPROLOL TARTRATE 25 MG TABLET PO ×3 (00:33→21:01)
[2022-08-11] MEDS: ATORVASTATIN 20 MG TABLET PO ×2 (00:33→21:02)
[2022-08-11] MEDS: OXYBUTYNIN CHLORIDE 5 MG TABLET PO ×2 (00:33→21:01)
[2022-08-11] MEDS: SODIUM CHLORIDE 0.9% IV 1,000 ML 125 ML IV CONT ×3 (00:35→17:54)
[2022-08-11] MEDS: traMADol HCL (*CRX) 50 MG TABLET PO (02:51)
[2022-08-11] MEDS: ONDANSETRON INJ 4 MG/2 ML VIAL IV PUSH (05:29)
[2022-08-11 05:51] LABS: Basophils Percent Auto 0.2 % (0.2-1.2); Eosinophils Absolute Auto 0.1 K/mm3 (0-0.3); Eosinophils Percent Auto 0.5 % (0-4.4); Hematocrit 28.4 % (37.0-47.0); Hemoglobin 9.5 g/dL (12.0-15.0); Immature Granulocyte Absolute 0.04 K/mm3 (0.00-0.031); Immature Granulocyte Percent A 0.4 % (0-0.5); Lymphocytes Absolute Auto 0.84 K/mm3 (0.9-3.2); Lymphocytes Percent Auto 9.1 % (18.3-44.2); Mean Corpuscular HGB Conc 33.5 g/dl (32-36); Mean Corpuscular Hemoglobin 27.8 pg (26-34); Mean Platelet Volume 9.8 fl (7.4-10.4); Monocytes Absolute Auto 0.5 K/mm3 (0.1-0.6); Monocytes Percent Auto 5.7 % (2.6-8.5); Neutrophils Absolute Auto 7.8 K/mm3 (1.3-6.7); Neutrophils Percent Auto 84.1 % (45.5-73.1); Platelet Count Result 181 k/mm3 (150-375); Red Blood Count 3.42 M/mm3 (4.2-5.4); Red Cell Distribution Width 14.9 % (11.5-14.5); White Blood Count 9.3 K/mm3 (4.5-10.0)
[2022-08-11 05:57] LABS: Alanine Aminotransferase 17 U/L (6-35); Albumin Level 3.4 g/dL (3.5-5.1); Alkaline Phosphatase 83 U/L (38-126); Anion Gap 6 mmol/L (8-16); Aspartate Amino Transferase 15 U/L (14-36); Bilirubin,Total 0.3 mg/dL (0.2-1.3); Blood Urea Nitrogen 52 mg/dL (7-17); Calcium 8.3 mg/dL (8.4-10.2); Carbon Dioxide 20 mmol/L (22-30); Chloride 106 mmol/L (98-107); Estimated Glomerular Filt Rate 44; Glucose 236 mg/dL (65-110); Lactic Acid Reflex 0.8 mmol/L (0.7-2.0); Magnesium 1.7 mg/dL (1.6-2.3); Potassium 4.2 mmol/L (3.4-5.0); Sodium 132 mmol/L (137-145)
[2022-08-11 06:38] LABS: Thyroid Stimulating Hormone Reflex 0.904 uIU/mL (0.465-4.68)
[2022-08-11] MEDS: polyethylene glycoL 3350 17 GM POWD.PACK PO (08:40)
[2022-08-11 08:41] LABS: Glucose Point of Care 232 mg/dl (65-105)
[2022-08-11] MEDS: TOLNAFTATE 1% POWDER 45 GM BTL 1 APPLIC TOPICAL ×2 (08:41→21:06)
[2022-08-11] MEDS: FERROUS SULFATE 324 MG TABLET PO ×2 (08:41→17:55)
[2022-08-11] MEDS: busPIRone HCL 5 MG TABLET PO ×2 (08:42→21:01)
[2022-08-11] MEDS: FAMOTIDINE 20 MG TABLET PO (08:42)
[2022-08-11] MEDS: busPIRone HCL 2.5 MG TABLET PO ×2 (08:42→21:01)
[2022-08-11] MEDS: ZIPRASIDONE HCL 20 MG CAPSULE PO ×2 (08:42→21:02)
[2022-08-11] MEDS: ALPRAZolam (*CRX) 0.5 MG TABLET PO ×3 (08:42→17:55)
[2022-08-11] MEDS: LORATADINE 10 MG TABLET PO (08:42)
[2022-08-11] MEDS: DOCUSATE SODIUM 100 MG CAPSULE PO (08:42)
[2022-08-11] MEDS: INSULIN ASPART (*BKC) 100 UNITS/ML SUB-Q ×2 (09:31→17:57)
[2022-08-11 11:21] LABS: Hemoglobin A1C 9.3 % (<5.7)
[2022-08-11 13:09] LABS: Glucose Point of Care 179 mg/dl (65-105)
[2022-08-11] MEDS: ACETAMINOPHEN 325 MG TABLET 650 MG PO (13:28)
--- NOTE | 2022-08-11 14:13 | PM.IMPN ---
Progress Note: A&P Assessment and Plan (1) Abdominal pain: Code(s): R10.9 - Unspecified abdominal pain Status: Acute Assessment and Plan: Check CT abdomen and pelvis, unsure of etiology, could be inflammatory versus infectious (2) Acute kidney injury: Code(s): N17.9 - Acute kidney failure, unspecified Status: Acute Assessment and Plan: Hold Lasix lisinopril, renal ultrasound within normal limits Improving with IV fluids (3) Anemia: Code(s): D64.9 - Anemia, unspecified Status: Acute Assessment and Plan: Stable (4) Bipolar disorder: Code(s): F31.9 - Bipolar disorder, unspecified Status: Acute Assessment and Plan: Continue home meds, stable (5) Chronic anticoagulation: Code(s): Z79.01 - FDC (current) use of anticoagulants Status: Acute Assessment and Plan: Continue Xarelto, history of PE/DVT (6) COPD (chronic obstructive pulmonary disease): Code(s): J44.9 - Chronic obstructive pulmonary disease, unspecified Status: Acute Assessment and Plan: Stable (7) Diabetes mellitus: Qualifiers: Diabetes mellitus complication status: without complication Diabetes mellitus usp insulin use: with usp use Diabetes mellitus type: type 2 Qualified Code(s): E11.9 - Type 2 diabetes mellitus without complications; Z79.4 - FDC (current) use of insulin Code(s): E11.9 - Type 2 diabetes mellitus without complications Status: Chronic Assessment and Plan: Accu-Cheks, sliding scale insulin, continue home long-acting insulin, A1c is 9.3 (8) Eczema: Code(s): L30.9 - Dermatitis, unspecified Status: Acute Assessment and Plan: Stable (9) HTN (hypertension): Code(s): I10 - Essential (primary) hypertension Status: Acute Assessment and Plan: Stable, hold lisinopril (10) Epilepsy: Code(s): G40.909 - Epilepsy, unspecified, not intractable, without status epilepticus Status: Acute Assessment and Plan: Continue Keppra (11) Hyperlipidemia: Code(s): E78.5 - Hyperlipidemia, unspecified Status: Acute Assessment and Plan: Continue statin Plan DVT prophylaxis with Xarelto GI prophylaxis with Pepcid Code status full code Subjective Date/time seen: 01/02/23 14:13 Interval history: No overnight events noted. No chest pain or shortness of breath. No nausea, vomiting or diarrhea. No fevers or chills. Complaining of right lower quadrant abdominal pain. Review of Systems Review of Systems: 12 point review of systems was assessed and was negative except as noted in the HPI Exam Narrative: General: No acute distress, alert and oriented per baseline HEENT: Atraumatic, normocephalic, mucous membranes moist CV: Regular rate and rhythm, S1, S2 Lungs: Clear to auscultation bilaterally, no rales or crackles noted, no wheezes, good air entry Abdomen: Soft, tender to palpation diffusely, especially right lower quadrant, no rebounding or guarding Extremities: Normal to inspection Skin: No rashes noted, no lesions or wounds seen Psych: Euthymic, normal affect Objective Data Vital Signs Vital Signs: Vital Signs - 24 hr 08/10/22 14:56 08/10/22 16:52 08/10/22 17:18 Temperature 98.7 F Pulse Rate 86 80 81 Respiratory Rate 18 18 16 Blood Pressure 108/55 L 103/57 L 102/55 L Pulse Oximetry 100 100 100 Oxygen Delivery 08/10/22 19:40 08/10/22 20:00 08/11/22 00:33 Temperature 97.9 F Pulse Rate 75 74 Respiratory Rate 16 Blood Pressure 97/45 L Pulse Oximetry 99 Oxygen Delivery Room Air 08/11/22 05:19 08/11/22 09:31 Temperature 100.6 F H Pulse Rate 99 98 Respiratory Rate 18 Blood Pressure 100/70 Pulse Oximetry 97 Oxygen Delivery Intake/Output Intake/Output: Intake & Output 08/08/22 08/09/22 08/10/22 08/11/22 23:59 23:59 23:59 23:59 Intake Total 124
[2022-08-11 17:31] LABS: Glucose Point of Care 264 mg/dl (65-105)
[2022-08-11] MEDS: RIVAROXABAN 10 MG TABLET PO (17:56)
[2022-08-11 20:20] LABS: Glucose Point of Care 232 mg/dl (65-105)
[2022-08-11] MEDS: levETIRAcetam 500 MG TABLET PO (21:01)
[2022-08-11] MEDS: methocarbamoL 750 MG TABLET PO (21:01)
[2022-08-11] MEDS: INSULIN GLARGINE (*BKC) 100 UNITS/ML 30 UNITS SUB-Q (21:02)
[2022-08-12] MEDS: traMADol HCL (*CRX) 50 MG TABLET PO ×2 (00:10→22:33)
[2022-08-12 06:00] VITALS: BP 110/74; PULSE 90; RESP 16; TEMP 36.7; O2SAT 99
[2022-08-12 08:51] LABS: Glucose Point of Care 137 mg/dl (65-105)
[2022-08-12 08:57] LABS: Basophils Percent Auto 0.3 % (0.2-1.2); Eosinophils Percent Auto 0.1 % (0-4.4); Hematocrit 26.4 % (37.0-47.0); Hemoglobin 8.6 g/dL (12.0-15.0); Immature Granulocyte Absolute 0.04 K/mm3 (0.00-0.031); Immature Granulocyte Percent A 0.4 % (0-0.5); Lymphocytes Percent Auto 15.5 % (18.3-44.2); Mean Corpuscular HGB Conc 32.6 g/dl (32-36); Mean Corpuscular Hemoglobin 27.9 pg (26-34); Mean Corpuscular Volume 85.7 fl (80-100); Mean Platelet Volume 9.6 fl (7.4-10.4); Monocytes Percent Auto 11.1 % (2.6-8.5); Neutrophils Absolute Auto 6.6 K/mm3 (1.3-6.7); Neutrophils Percent Auto 72.6 % (45.5-73.1); Platelet Count Result 155 k/mm3 (150-375); Red Blood Count 3.08 M/mm3 (4.2-5.4); Red Cell Distribution Width 15.1 % (11.5-14.5); White Blood Count 9.1 K/mm3 (4.5-10.0)
[2022-08-12] MEDS: levETIRAcetam 500 MG TABLET PO ×2 (09:11→20:08)
[2022-08-12] MEDS: LORATADINE 10 MG TABLET PO (09:11)
[2022-08-12] MEDS: busPIRone HCL 2.5 MG TABLET PO ×2 (09:11→20:08)
[2022-08-12] MEDS: busPIRone HCL 5 MG TABLET PO ×2 (09:11→20:08)
[2022-08-12] MEDS: FERROUS SULFATE 324 MG TABLET PO ×2 (09:11→17:00)
[2022-08-12] MEDS: polyethylene glycoL 3350 17 GM POWD.PACK PO (09:11)
[2022-08-12] MEDS: DOCUSATE SODIUM 100 MG CAPSULE PO (09:11)
[2022-08-12] MEDS: FAMOTIDINE 20 MG TABLET PO (09:11)
[2022-08-12] MEDS: ZIPRASIDONE HCL 20 MG CAPSULE PO ×2 (09:12→20:08)
[2022-08-12] MEDS: TOLNAFTATE 1% POWDER 45 GM BTL 1 APPLIC TOPICAL ×2 (09:12→20:09)
[2022-08-12] MEDS: SODIUM CHLORIDE 0.9% IV 1,000 ML 125 ML IV CONT ×2 (09:13→20:14)
[2022-08-12 09:14] VITALS: PULSE 72
[2022-08-12] MEDS: ALPRAZolam (*CRX) 0.5 MG TABLET PO ×3 (09:14→17:00)
[2022-08-12] MEDS: METOPROLOL TARTRATE 25 MG TABLET PO ×2 (09:14→20:08)
--- NOTE | 2022-08-12 11:08 | PM.IMPN ---
Progress Note: A&P Assessment and Plan (1) Abdominal pain: Code(s): R10.9 - Unspecified abdominal pain Status: Acute Assessment and Plan: Check CT abdomen and pelvis, unsure of etiology, could be inflammatory versus infectious Cannot rule out infection, no leukocytosis, no fevers or chills, vital signs stable, will continue to observe off antibiotics until CT comes back Will check CRP, lactate and procalcitonin for possible infectious etiology (2) Acute kidney injury: Code(s): N17.9 - Acute kidney failure, unspecified Status: Acute Assessment and Plan: Hold Lasix, lisinopril, renal ultrasound within normal limits Improving with IV fluids (3) Anemia: Code(s): D64.9 - Anemia, unspecified Status: Acute Assessment and Plan: Stable (4) Bipolar disorder: Code(s): F31.9 - Bipolar disorder, unspecified Status: Acute Assessment and Plan: Continue home meds, stable (5) Chronic anticoagulation: Code(s): Z79.01 - computer terminal operator (current) use of anticoagulants Status: Acute Assessment and Plan: Continue Xarelto, history of PE/DVT (6) COPD (chronic obstructive pulmonary disease): Code(s): J44.9 - Chronic obstructive pulmonary disease, unspecified Status: Acute Assessment and Plan: Stable (7) Diabetes mellitus: Qualifiers: Diabetes mellitus complication status: without complication Diabetes mellitus jail insulin use: with supervisor long goods use Diabetes mellitus type: type 2 Qualified Code(s): E11.9 - Type 2 diabetes mellitus without complications; Z79.4 - senior living (current) use of insulin Code(s): E11.9 - Type 2 diabetes mellitus without complications Status: Chronic Assessment and Plan: Accu-Cheks, sliding scale insulin, continue home long-acting insulin, A1c is 9.3 (8) Eczema: Code(s): L30.9 - Dermatitis, unspecified Status: Acute Assessment and Plan: Stable (9) HTN (hypertension): Code(s): I10 - Essential (primary) hypertension Status: Acute Assessment and Plan: Stable, hold lisinopril (10) Epilepsy: Code(s): G40.909 - Epilepsy, unspecified, not intractable, without status epilepticus Status: Acute Assessment and Plan: Continue Keppra (11) Hyperlipidemia: Code(s): E78.5 - Hyperlipidemia, unspecified Status: Acute Assessment and Plan: Continue statin Plan DVT prophylaxis with Xarelto GI prophylaxis with Pepcid Code status full code Subjective Date/time seen: 08/12/22 11:08 Interval history: No overnight events noted. No chest pain or shortness of breath. No nausea, vomiting or diarrhea. No fevers, but she is intermittently chilled. Complaining of right lower quadrant abdominal pain. States she feels much worse today than yesterday. Review of Systems Review of Systems: 12 point review of systems was assessed and was negative except as noted in the HPI Exam Narrative: General: No acute distress, alert and oriented per baseline HEENT: Atraumatic, normocephalic, mucous membranes moist CV: Regular rate and rhythm, S1, S2 Lungs: Clear to auscultation bilaterally, no rales or crackles noted, no wheezes, good air entry Abdomen: Soft, tender to mild palpation, no rebounding or guarding or peritoneal signs noted Extremities: Normal to inspection Skin: No rashes noted, no lesions or wounds seen Psych: Euthymic, normal affect Objective Data Vital Signs Vital Signs: Vital Signs - 24 hr 08/11/22 14:00 08/11/22 21:01 08/11/22 21:37 Temperature 98.9 F 98.0 F Pulse Rate 88 80 98 Respiratory Rate 16 16 Blood Pressure 123/53 L 107/76 Pulse Oximetry 100 100 Oxygen Delivery 08/11/22 20:00 08/12/22 06:00 08/12/22 09:14 Temperature 98.0 F Pulse Rate 98 90 72 Respiratory Rate 16 16 Blood Pressure 110/74 Pulse Oximetry 100 99 Oxygen Delivery Room Air Intake/Outpu
--- NOTE | 2022-08-12 12:10 | PC.NURSE ---
Callisthenics Instructor called Hospitalist Ngozi regarding physician to nurse communication. No answer. Will call again.
[2022-08-12 12:48] LABS: Glucose Point of Care 220 mg/dl (65-105)
[2022-08-12 12:48] LABS: Alanine Aminotransferase 14 U/L (6-35); Albumin Level 2.9 g/dL (3.5-5.1); Alkaline Phosphatase 65 U/L (38-126); Anion Gap 5 mmol/L (8-16); Aspartate Amino Transferase 17 U/L (14-36); Bilirubin,Total 0.4 mg/dL (0.2-1.3); Blood Urea Nitrogen 35 mg/dL (7-17); Calcium 8.2 mg/dL (8.4-10.2); Carbon Dioxide 20 mmol/L (22-30); Chloride 110 mmol/L (98-107); Estimated Glomerular Filt Rate 44; Glucose 133 mg/dL (65-110); Potassium 4.1 mmol/L (3.4-5.0); Sodium 135 mmol/L (137-145)
[2022-08-12] MEDS: INSULIN ASPART (*BKC) 100 UNITS/ML SUB-Q (13:38)
[2022-08-12] MEDS: ACETAMINOPHEN 325 MG TABLET 650 MG PO (13:42)
[2022-08-12 14:00] VITALS: BP 100/50; PULSE 80; RESP 16; TEMP 36.8; O2SAT 100
--- NOTE | 2022-08-12 15:13 | PC.NURSE ---
Patient ripped IV access out. Commercial Lines Sales Executive will attempt to regain access.
[2022-08-12 15:54] LABS: Pregnancy On Board Control Positive; Urine Pregnancy Test Negative
[2022-08-12] MEDS: RIVAROXABAN 10 MG TABLET PO (17:00)
[2022-08-12 17:11] LABS: Lactic Acid Reflex 1.2 mmol/L (0.7-2.0)
[2022-08-12 17:28] LABS: Procalcitonin 0.2 ng/mL
[2022-08-12 17:41] LABS: CRP 22.9 mg/dL (<1.0)
[2022-08-12 18:28] LABS: Glucose Point of Care 181 mg/dl (65-105)
[2022-08-12 20:00] VITALS: PULSE 80; RESP 16; O2SAT 100
[2022-08-12 20:04] LABS: Glucose Point of Care 203 mg/dl (65-105)
[2022-08-12 20:08] VITALS: PULSE 80
[2022-08-12] MEDS: ATORVASTATIN 20 MG TABLET PO (20:08)
[2022-08-12] MEDS: MELATONIN 5 MG TABLET PO (20:08)
[2022-08-12] MEDS: methocarbamoL 750 MG TABLET PO (20:09)
[2022-08-12] MEDS: INSULIN GLARGINE (*BKC) 100 UNITS/ML 30 UNITS SUB-Q (20:09)
[2022-08-12] MEDS: OXYBUTYNIN CHLORIDE 5 MG TABLET PO (20:09)
[2022-08-12] MEDS: PROMETHAZINE HCL 25 MG TABLET PO (20:09)
[2022-08-12 21:54] VITALS: BP 110/62; PULSE 80; RESP 16; TEMP 36.8; O2SAT 95
[2022-08-13] MEDS: ONDANSETRON INJ 4 MG/2 ML VIAL IV PUSH (01:54)
[2022-08-13] MEDS: ACETAMINOPHEN 325 MG TABLET 650 MG PO (03:53)
[2022-08-13] MEDS: SODIUM CHLORIDE 0.9% IV 1,000 ML 125 ML IV CONT ×2 (03:53→11:53)
[2022-08-13 09:00] VITALS: BP 94/52; PULSE 69; RESP 16; TEMP 35.6; O2SAT 100
[2022-08-13 09:00] LABS: Glucose Point of Care 118 mg/dl (65-105)
[2022-08-13] MEDS: FERROUS SULFATE 324 MG TABLET PO ×2 (10:12→18:32)
[2022-08-13] MEDS: busPIRone HCL 5 MG TABLET PO ×2 (10:13→20:30)
[2022-08-13] MEDS: ALPRAZolam (*CRX) 0.5 MG TABLET PO ×2 (10:13→18:32)
[2022-08-13] MEDS: busPIRone HCL 2.5 MG TABLET PO ×2 (10:14→20:29)
[2022-08-13] MEDS: DOCUSATE SODIUM 100 MG CAPSULE PO (10:14)
[2022-08-13] MEDS: LORATADINE 10 MG TABLET PO (10:15)
[2022-08-13] MEDS: FAMOTIDINE 20 MG TABLET PO (10:15)
[2022-08-13] MEDS: TOLNAFTATE 1% POWDER 45 GM BTL 1 APPLIC TOPICAL ×2 (10:15→20:30)
[2022-08-13] MEDS: ZIPRASIDONE HCL 20 MG CAPSULE PO ×2 (10:15→20:30)
[2022-08-13] MEDS: polyethylene glycoL 3350 17 GM POWD.PACK PO (10:15)
[2022-08-13] MEDS: levETIRAcetam 500 MG TABLET PO ×2 (10:15→20:30)
[2022-08-13 10:19] VITALS: BP 101/53; PULSE 70
[2022-08-13 12:00] LABS: Basophils Percent Auto 0.3 % (0.2-1.2); Eosinophils Absolute Auto 0.1 K/mm3 (0-0.3); Eosinophils Percent Auto 0.8 % (0-4.4); Hematocrit 23.5 % (37.0-47.0); Hemoglobin 7.7 g/dL (12.0-15.0); Immature Granulocyte Absolute 0.02 K/mm3 (0.00-0.031); Immature Granulocyte Percent A 0.3 % (0-0.5); Lymphocytes Absolute Auto 1.05 K/mm3 (0.9-3.2); Lymphocytes Percent Auto 13.6 % (18.3-44.2); Mean Corpuscular HGB Conc 32.8 g/dl (32-36); Mean Corpuscular Hemoglobin 27.6 pg (26-34); Mean Corpuscular Volume 84.2 fl (80-100); Mean Platelet Volume 9.9 fl (7.4-10.4); Monocytes Absolute Auto 0.9 K/mm3 (0.1-0.6); Monocytes Percent Auto 11.5 % (2.6-8.5); Neutrophils Absolute Auto 5.7 K/mm3 (1.3-6.7); Neutrophils Percent Auto 73.5 % (45.5-73.1); Platelet Count Result 136 k/mm3 (150-375); Red Blood Count 2.79 M/mm3 (4.2-5.4); Red Cell Distribution Width 15.1 % (11.5-14.5); White Blood Count 7.7 K/mm3 (4.5-10.0)
[2022-08-13 12:12] LABS: Anion Gap 6 mmol/L (8-16); Blood Urea Nitrogen 32 mg/dL (7-17); Calcium 7.5 mg/dL (8.4-10.2); Carbon Dioxide 17 mmol/L (22-30); Chloride 110 mmol/L (98-107); Estimated Glomerular Filt Rate 53; Glucose 124 mg/dL (65-110); Potassium 3.7 mmol/L (3.4-5.0); Sodium 133 mmol/L (137-145)
[2022-08-13 14:00] VITALS: BP 103/56; PULSE 90; RESP 18; TEMP 36; O2SAT 100
--- NOTE | 2022-08-13 15:29 | PM.IMPN ---
Progress Note: A&P Assessment and Plan (1) Abdominal pain: Code(s): R10.9 - Unspecified abdominal pain Status: Acute Assessment and Plan: Patient with abdominal pain. White count is normal but CRP is 23; Procalcitonin 0.2 with a normal lactate. CT the abdomen pelvis showing bladder wall thickening. No urinary symptoms. CXR was clear. Urinalysis on admission was essentially negative. now having diarrhea. Not having evidence of bacterial infection but could have gastroenteritis. Follow off abx. If labs improve tomorrow, plan dischrage (2) Acute kidney injury: Code(s): N17.9 - Acute kidney failure, unspecified Status: Acute Assessment and Plan: Cr 2.0 with normal baseline. Lasix, lisinopril held, renal ultrasound within normal limits. Cr 1.1 and she is eating well. Metabolic acidosis noted but probably related to recovery of renal function. Okay to stop IV fluids. Follow. (3) Anemia: Code(s): D64.9 - Anemia, unspecified Status: Acute Assessment and Plan: Hgb low but stable. Iron studies few months ago showing very mild iron deficiency. She is currently on iron. No evidence of acute blood loss. Will continue to follow. (4) Bipolar disorder: Code(s): F31.9 - Bipolar disorder, unspecified Status: Acute Assessment and Plan: Mood stable. Continue home medications. (5) Chronic anticoagulation: Code(s): Z79.01 - manager intermediate (current) use of anticoagulants Status: Acute Assessment and Plan: Continue Xarelto, history of PE/DVT (6) COPD (chronic obstructive pulmonary disease): Code(s): J44.9 - Chronic obstructive pulmonary disease, unspecified Status: Acute Assessment and Plan: Stable (7) Diabetes mellitus: Qualifiers: Diabetes mellitus type: type 2 Diabetes mellitus exterminator termite insulin use: with group home use Diabetes mellitus complication status: without complication Qualified Code(s): E11.9 - Type 2 diabetes mellitus without complications; Z79.4 - manager intermediate (current) use of insulin Code(s): E11.9 - Type 2 diabetes mellitus without complications Status: Chronic Assessment and Plan: A1c is 9.3. The patient's blood glucose was reviewed on 08/13 Glucose remains well controlled at 118 this morning. Continue AccuCheks covering with sliding scale. Hypoglycemia protocol available as needed. Continue to folow (8) Eczema: Code(s): L30.9 - Dermatitis, unspecified Status: Acute Assessment and Plan: Stable (9) HTN (hypertension): Code(s): I10 - Essential (primary) hypertension Status: Acute Assessment and Plan: Patient's blood pressure was reviewed on 08/13 Blood pressure remains well controlled. Will continue current medications. (10) Epilepsy: Code(s): G40.909 - Epilepsy, unspecified, not intractable, without status epilepticus Status: Acute Assessment and Plan: Stable Continue Keppra (11) Hyperlipidemia: Code(s): E78.5 - Hyperlipidemia, unspecified Status: Acute Assessment and Plan: Continue statin Plan DVT prophylaxis with Xarelto GI prophylaxis with Pepcid Code status full code Subjective Date/time seen: 08/13/22 15:29 Interval history: 46yo female with COPD, DM and bipolar disorder [facility] Assuming care. Chart reviewed. Patient states her abdominal pain is improved. She had 2 loose stools today. No nausea or vomiting. Eating better. No urinary sx. Exam Narrative: AF 103/56 90 18 100% ra Gen - NARD Chest - CTA bilaterally, nml RR CV - RRR S1/S2 Abd - Soft, ND, obese, mild diffuse tenderness without guarding. Positive bowel sounds Ext - No pedal edema Psych - Nml mood and affect Skin - Warm and dry. hyper pigmented area noted in her groin. Objective Data Vital Signs Vital Signs: Vital Signs -
[2022-08-13 17:30] LABS: Glucose Point of Care 156 mg/dl (65-105)
[2022-08-13] MEDS: RIVAROXABAN 10 MG TABLET PO (18:32)
[2022-08-13 20:00] VITALS: PULSE 107; RESP 18; O2SAT 100
[2022-08-13 20:28] VITALS: PULSE 107
[2022-08-13] MEDS: METOPROLOL TARTRATE 25 MG TABLET PO (20:28)
[2022-08-13] MEDS: MELATONIN 5 MG TABLET PO (20:29)
[2022-08-13] MEDS: OXYBUTYNIN CHLORIDE 5 MG TABLET PO (20:30)
[2022-08-13] MEDS: ATORVASTATIN 20 MG TABLET PO (20:30)
[2022-08-13] MEDS: INSULIN GLARGINE (*BKC) 100 UNITS/ML 30 UNITS SUB-Q (20:30)
[2022-08-13] MEDS: methocarbamoL 750 MG TABLET PO (20:30)
[2022-08-13 20:39] LABS: Glucose Point of Care 171 mg/dl (65-105)
[2022-08-13 22:00] VITALS: BP 91/64; PULSE 102; RESP 20; TEMP 37.5; O2SAT 99
[2022-08-14] VITALS (7 sets, daily range): BP systolic 97–126; BP diastolic 52–80; PULSE 72–89; RESP 18–22; TEMP 36.5–38.3; O2SAT 99–100
[2022-08-14] MEDS: ACETAMINOPHEN 325 MG TABLET 650 MG PO (02:41)
[2022-08-14] MEDS: traMADol HCL (*CRX) 50 MG TABLET PO ×2 (04:37→23:12)
[2022-08-14] MEDS: PROMETHAZINE HCL 25 MG TABLET PO ×2 (04:55→23:13)
[2022-08-14 05:45] LABS: Hematocrit 23.9 % (37.0-47.0); Hemoglobin 7.6 g/dL (12.0-15.0); Mean Corpuscular HGB Conc 31.8 g/dl (32-36); Mean Corpuscular Hemoglobin 27.2 pg (26-34); Mean Corpuscular Volume 85.7 fl (80-100); Mean Platelet Volume 10.3 fl (7.4-10.4); Platelet Count Result 144 k/mm3 (150-375); Red Blood Count 2.79 M/mm3 (4.2-5.4); Red Cell Distribution Width 15.1 % (11.5-14.5); White Blood Count 8.1 K/mm3 (4.5-10.0)
[2022-08-14 06:03] LABS: Albumin Level 2.7 g/dL (3.5-5.1); Anion Gap 7 mmol/L (8-16); Blood Urea Nitrogen 38 mg/dL (7-17); Calcium 7.5 mg/dL (8.4-10.2); Carbon Dioxide 15 mmol/L (22-30); Chloride 112 mmol/L (98-107); Estimated Glomerular Filt Rate 48; Glucose 168 mg/dL (65-110); Phosphorus 2.5 mg/dL (2.5-4.5); Potassium 4.1 mmol/L (3.4-5.0); Sodium 134 mmol/L (137-145)
[2022-08-14 06:11] LABS: CRP 22.8 mg/dL (<1.0)
[2022-08-14 09:26] LABS: Glucose Point of Care 142 mg/dl (65-105)
[2022-08-14 09:55] LABS: Lactic Acid Reflex 0.9 mmol/L (0.7-2.0)
[2022-08-14] MEDS: FERROUS SULFATE 324 MG TABLET PO ×2 (10:04→17:53)
[2022-08-14] MEDS: busPIRone HCL 2.5 MG TABLET PO ×2 (10:04→23:13)
[2022-08-14] MEDS: levETIRAcetam 500 MG TABLET PO ×2 (10:04→23:13)
[2022-08-14] MEDS: busPIRone HCL 5 MG TABLET PO ×2 (10:04→23:13)
[2022-08-14] MEDS: SODIUM BICARBONATE TAB 650 MG TABLET PO ×2 (10:04→17:53)
[2022-08-14] MEDS: DOCUSATE SODIUM 100 MG CAPSULE PO (10:05)
[2022-08-14] MEDS: LORATADINE 10 MG TABLET PO (10:05)
[2022-08-14] MEDS: FAMOTIDINE 20 MG TABLET PO (10:05)
[2022-08-14] MEDS: TOLNAFTATE 1% POWDER 45 GM BTL 1 APPLIC TOPICAL ×2 (10:06→23:20)
[2022-08-14] MEDS: ZIPRASIDONE HCL 20 MG CAPSULE PO ×2 (10:06→23:12)
[2022-08-14 10:08] LABS: Procalcitonin 1.1 ng/mL
[2022-08-14] MEDS: ALPRAZolam (*CRX) 0.5 MG TABLET PO ×3 (10:11→17:55)
[2022-08-14] MEDS: METOPROLOL TARTRATE 25 MG TABLET PO ×2 (10:16→23:13)
[2022-08-14 11:47] LABS: Influenza A QL RT-PCR Negative (Negative); Influenza B QL RT-PCR Negative (Negative); RSV RNA, RT-PCR Negative (Negative); SARS-CoV-2 RNA PCR Negative
--- NOTE | 2022-08-14 12:16 | PM.IMPN ---
Progress Note: A&P Assessment and Plan (1) Fever: Code(s): R50.9 - Fever, unspecified Status: Acute Assessment and Plan: Patient with fever now. White count is normal. CRP was elevated at 23 yesterday and unchanged today. Chest x-ray was reviewed personally is clear. Cultures obtained. Will check a viral illness given her cough. Will monitor overnight. Hold on antibiotics at this time. (2) Abdominal pain: Code(s): R10.9 - Unspecified abdominal pain Status: Acute Assessment and Plan: Patient with abdominal pain. White count is normal but CRP is 23; Procalcitonin 0.2 with a normal lactate. CT the abdomen pelvis showing bladder wall thickening. No urinary symptoms. Urinalysis on admission was essentially negative. Now having loose stools. As above. Follow off abx. Follow up on results. (3) Acute kidney injury: Code(s): N17.9 - Acute kidney failure, unspecified Status: Acute Assessment and Plan: Cr 2.0 with normal baseline. Lasix, lisinopril held, renal ultrasound within normal limits. Cr 1.2 today. Metabolic acidosis again noted but probably related to recovery of renal function. IV fluids have been stopped. Add Bicarb. Follow. (4) Anemia: Code(s): D64.9 - Anemia, unspecified Status: Acute Assessment and Plan: Hgb low but stable. Iron studies few months ago showing very mild iron deficiency. She is currently on iron. No evidence of acute blood loss. Will continue to follow. (5) Bipolar disorder: Code(s): F31.9 - Bipolar disorder, unspecified Status: Acute Assessment and Plan: Mood stable. Continue home medications. (6) Chronic anticoagulation: Code(s): Z79.01 - keno terminal operator (current) use of anticoagulants Status: Acute Assessment and Plan: History of PE/DVT. Continue Xarelto. (7) COPD (chronic obstructive pulmonary disease): Code(s): J44.9 - Chronic obstructive pulmonary disease, unspecified Status: Acute Assessment and Plan: No wheezing. Stable (8) Diabetes mellitus: Qualifiers: Diabetes mellitus type: type 2 Diabetes mellitus termite control technician insulin use: with termite control technician use Diabetes mellitus complication status: without complication Qualified Code(s): E11.9 - Type 2 diabetes mellitus without complications; Z79.4 - keno terminal operator (current) use of insulin Code(s): E11.9 - Type 2 diabetes mellitus without complications Status: Chronic Assessment and Plan: A1c is 9.3. The patient's blood glucose was reviewed on 08/14 Glucose remains well controlled Continue AccuCheks covering with sliding scale. Hypoglycemia protocol available as needed. Continue to follow (9) HTN (hypertension): Code(s): I10 - Essential (primary) hypertension Status: Acute Assessment and Plan: Patient's blood pressure was reviewed on 08/14 Blood pressure soft today. Will Continue to monitor (10) Epilepsy: Code(s): G40.909 - Epilepsy, unspecified, not intractable, without status epilepticus Status: Acute Assessment and Plan: Stable Continue Keppra Plan DVT prophylaxis with Xarelto Code status full code Subjective Date/time seen: 08/14/22 12:16 Interval history: 46yo female with COPD, DM and bipolar disorder bright in from the skilled nursing for SOB. Patient had fever last night. She is eating well. She does complain of cough productive green sputum. No chest pain or shortness of breath. No nausea or vomiting. She does have some dyspnea on exertion however. She denies any dysuria or hematuria. She had 2 loose stools today but not justyna diarrhea. Exam Narrative: Tm 101.0 98.0 97/52 72 18 99% ra Gen - NARD Chest - Decreased breath sounds in the right base otherwise clear. normal respiratory rate CV - RRR S1/S2 Abd - soft. Obese. Mild mid abdominal pain. no rebound or guarding. Ext
[2022-08-14 12:35] LABS: Glucose Point of Care 257 mg/dl (65-105)
[2022-08-14] MEDS: INSULIN ASPART (*BKC) 100 UNITS/ML SUB-Q ×2 (12:46→17:53)
[2022-08-14 17:48] LABS: Glucose Point of Care 205 mg/dl (65-105)
[2022-08-14] MEDS: RIVAROXABAN 10 MG TABLET PO (17:53)
[2022-08-14] MEDS: ATORVASTATIN 20 MG TABLET PO (23:12)
[2022-08-14] MEDS: MELATONIN 5 MG TABLET PO (23:13)
[2022-08-14] MEDS: INSULIN GLARGINE (*BKC) 100 UNITS/ML 30 UNITS SUB-Q (23:13)
[2022-08-14] MEDS: OXYBUTYNIN CHLORIDE 5 MG TABLET PO (23:13)
[2022-08-14 23:22] LABS: Glucose Point of Care 163 mg/dl (65-105)
[2022-08-15] VITALS (7 sets, daily range): BP systolic 91–139; BP diastolic 58–79; PULSE 72–114; RESP 16–18; TEMP 36.5–37; O2SAT 98–100
[2022-08-15 00:24] LABS: Add Urine Microscopic? YES; Appearance Urine Clear (Clear); Bilirubin Urine Negative (Negative); Blood Urine 1+ (Negative); Color Urine Yellow (Yellow); Glucose Urine UA Negative (Negative); Ketones Urine Negative (Negative); Leukocyte Esterase Ur 1+ LEU/UL (Negative); Nitrate Urine Negative (Negative); Protein Urine 2+ mg/dL (Negative); Urobilinogen Urine 0.2 mg/dL (<2.0)
[2022-08-15 00:35] LABS: Bacteria Urine Trace /hpf; Mucus Urine Rare /lpf; WBC Urine 31-50 /hpf
[2022-08-15] MEDS: ACETAMINOPHEN 325 MG TABLET 650 MG PO (03:51)
[2022-08-15] MEDS: DIPHENHYDRAMINE 1%/ZINC 0.1% CREAM 30 GM TUBE 1 APPLIC TOPICAL ×2 (05:08→17:46)
[2022-08-15 06:35] LABS: Basophils Percent Auto 0.3 % (0.2-1.2); Hematocrit 24.7 % (37.0-47.0); Hemoglobin 7.7 g/dL (12.0-15.0); Immature Granulocyte Absolute 0.11 K/mm3 (0.00-0.031); Immature Granulocyte Percent A 1.1 % (0-0.5); Lymphocytes Absolute Auto 1.01 K/mm3 (0.9-3.2); Lymphocytes Percent Auto 10.5 % (18.3-44.2); Mean Corpuscular HGB Conc 31.2 g/dl (32-36); Mean Corpuscular Volume 89.8 fl (80-100); Mean Platelet Volume 10.6 fl (7.4-10.4); Monocytes Absolute Auto 0.8 K/mm3 (0.1-0.6); Monocytes Percent Auto 8.3 % (2.6-8.5); Neutrophils Absolute Auto 7.7 K/mm3 (1.3-6.7); Neutrophils Percent Auto 79.8 % (45.5-73.1); Platelet Count Result 181 k/mm3 (150-375); Red Blood Count 2.75 M/mm3 (4.2-5.4); Red Cell Distribution Width 15.4 % (11.5-14.5); White Blood Count 9.6 K/mm3 (4.5-10.0)
[2022-08-15 06:43] LABS: Potassium 3.7 mmol/L (3.4-5.0)
[2022-08-15 06:49] LABS: Anion Gap 7 mmol/L (8-16); Blood Urea Nitrogen 39 mg/dL (7-17); Calcium 7.8 mg/dL (8.4-10.2); Carbon Dioxide 17 mmol/L (22-30); Chloride 112 mmol/L (98-107); Estimated Glomerular Filt Rate 44; Glucose 125 mg/dL (65-110); Sodium 136 mmol/L (137-145)
[2022-08-15 07:31] LABS: CRP 31.1 mg/dL (<1.0)
[2022-08-15 08:49] LABS: Glucose Point of Care 137 mg/dl (65-105)
[2022-08-15] MEDS: busPIRone HCL 5 MG TABLET PO ×2 (09:09→20:35)
[2022-08-15] MEDS: METOPROLOL TARTRATE 25 MG TABLET PO (09:10)
[2022-08-15] MEDS: levETIRAcetam 500 MG TABLET PO ×2 (09:11→20:35)
[2022-08-15] MEDS: busPIRone HCL 2.5 MG TABLET PO ×2 (09:11→20:35)
[2022-08-15] MEDS: DOCUSATE SODIUM 100 MG CAPSULE PO (09:11)
[2022-08-15] MEDS: FERROUS SULFATE 324 MG TABLET PO ×2 (09:11→17:45)
[2022-08-15] MEDS: FAMOTIDINE 20 MG TABLET PO (09:12)
[2022-08-15] MEDS: ZIPRASIDONE HCL 20 MG CAPSULE PO ×2 (09:12→20:34)
[2022-08-15] MEDS: LORATADINE 10 MG TABLET PO (09:12)
[2022-08-15] MEDS: SODIUM BICARBONATE TAB 650 MG TABLET PO ×2 (09:12→17:45)
[2022-08-15] MEDS: TOLNAFTATE 1% POWDER 45 GM BTL 1 APPLIC TOPICAL ×2 (09:13→20:39)
[2022-08-15] MEDS: ALPRAZolam (*CRX) 0.5 MG TABLET PO ×3 (09:17→17:45)
[2022-08-15 12:49] LABS: Glucose Point of Care 109 mg/dl (65-105)
[2022-08-15] MEDS: CIPROFLOXACIN 500 MG TAB PO ×2 (13:03→20:35)
--- NOTE | 2022-08-15 14:24 | PM.IMPN ---
Progress Note: A&P Assessment and Plan (1) Fever: Code(s): R50.9 - Fever, unspecified Status: Acute Assessment and Plan: Patient still with fever now. White count is normal. CRP up to 31 now. Chest x-ray was clear. BCx NGTD. UA consistent with UTI so will start abx. Resp viral illness panel negative. Fever probably from UTI. (2) Abdominal pain: Code(s): R10.9 - Unspecified abdominal pain Status: Acute Assessment and Plan: Patient with abdominal pain. White count is normal but CRP elevated; Procalcitonin 0.2 with a normal lactate. CT the abdomen pelvis showing bladder wall thickening. No urinary symptoms. Urinalysis on admission was essentially negative but repeat c/w UTI. As above (3) Acute kidney injury: Code(s): N17.9 - Acute kidney failure, unspecified Status: Acute Assessment and Plan: Cr 2.0 with normal baseline. Lasix, lisinopril held, renal ultrasound within normal limits. Cr 1.3 today. Metabolic acidosis again noted but probably related to recovery of renal function. Continue Bicarb. Follow. (4) Anemia: Code(s): D64.9 - Anemia, unspecified Status: Acute Assessment and Plan: Hgb low but stable. Iron studies few months ago showing very mild iron deficiency. She is currently on iron. No evidence of acute blood loss. Will continue to follow. (5) Bipolar disorder: Code(s): F31.9 - Bipolar disorder, unspecified Status: Acute Assessment and Plan: Mood stable. Continue home medications. (6) Chronic anticoagulation: Code(s): Z79.01 - correction (current) use of anticoagulants Status: Acute Assessment and Plan: History of PE/DVT. Continue Xarelto. (7) COPD (chronic obstructive pulmonary disease): Code(s): J44.9 - Chronic obstructive pulmonary disease, unspecified Status: Acute Assessment and Plan: No wheezing. 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 The patient's blood glucose was reviewed on 08/15 Glucose remains well controlled Continue AccuCheks covering with sliding scale. Hypoglycemia protocol available as needed. Continue to follow (9) HTN (hypertension): Code(s): I10 - Essential (primary) hypertension Status: Acute Assessment and Plan: Patient's blood pressure was reviewed on 08/15 Blood pressure soft today. Not on anti-HTN meds except metoprolol Decrease metoprolol. Will continue to monitor (10) Epilepsy: Code(s): G40.909 - Epilepsy, unspecified, not intractable, without status epilepticus Status: Acute Assessment and Plan: Stable Continue Keppra Plan DVT prophylaxis with Xarelto Code status full code Subjective Date/time seen: 08/15/22 14:24 Interval history: 46yo female with COPD, DM and bipolar disorder bright in from the correction for SOB. Patient again had fever last night. RN states she had fever all night but only documented once with temp 100.0 at 11pm. Pateint slept poorly. no chest pain or shortness of breath. No cough. She has had poor oral intake today. abdominal pain is better today. Exam Narrative: Tm 100.0 97.7 91/58 72 16 100% ra Gen - NARD Chest - Distant but clear breath sounds CV - RRR S1/S2 Abd - soft. Obese. Nontender. positive bowel sounds Ext - No pedal edema Psych - Nml mood and affect. sleepy but arouses easily and answers questions appropriately. Skin - Warm and dry. Objective Data Vital Signs Vital Signs: Vital Sig
[2022-08-15] MEDS: RIVAROXABAN 10 MG TABLET PO (17:45)
[2022-08-15 17:53] LABS: Glucose Point of Care 130 mg/dl (65-105)
[2022-08-15] MEDS: MELATONIN 5 MG TABLET PO (20:35)
[2022-08-15] MEDS: OXYBUTYNIN CHLORIDE 5 MG TABLET PO (20:35)
[2022-08-15] MEDS: ATORVASTATIN 20 MG TABLET PO (20:36)
[2022-08-15] MEDS: PROMETHAZINE HCL 25 MG TABLET PO (20:37)
[2022-08-15] MEDS: METOPROLOL TARTRATE 12.5 MG TABLET PO (20:42)
[2022-08-15] MEDS: INSULIN GLARGINE (*BKC) 100 UNITS/ML 30 UNITS SUB-Q (21:49)
[2022-08-15 22:03] LABS: Glucose Point of Care 186 mg/dl (65-105)
[2022-08-16] VITALS (7 sets, daily range): BP systolic 106–108; BP diastolic 55–64; PULSE 67–75; RESP 18–20; TEMP 36.2–36.6; O2SAT 99–100
[2022-08-16] MEDS: PROMETHAZINE HCL 25 MG TABLET PO ×2 (06:54→08:20)
[2022-08-16] MEDS: ACETAMINOPHEN 325 MG TABLET 650 MG PO (06:55)
[2022-08-16] MEDS: METOPROLOL TARTRATE 12.5 MG TABLET PO ×2 (08:18→20:48)
[2022-08-16] MEDS: ALPRAZolam (*CRX) 0.5 MG TABLET PO ×3 (08:18→17:32)
[2022-08-16] MEDS: LORATADINE 10 MG TABLET PO (08:19)
[2022-08-16] MEDS: methocarbamoL 750 MG TABLET PO (08:19)
[2022-08-16] MEDS: SODIUM BICARBONATE TAB 650 MG TABLET PO ×2 (08:19→17:32)
[2022-08-16] MEDS: busPIRone HCL 5 MG TABLET PO ×2 (08:20→20:48)
[2022-08-16] MEDS: CIPROFLOXACIN 500 MG TAB PO ×2 (08:20→20:47)
[2022-08-16] MEDS: FERROUS SULFATE 324 MG TABLET PO ×2 (08:20→17:33)
[2022-08-16] MEDS: busPIRone HCL 2.5 MG TABLET PO ×2 (08:20→20:48)
[2022-08-16] MEDS: ZIPRASIDONE HCL 20 MG CAPSULE PO ×2 (08:20→20:48)
[2022-08-16] MEDS: FAMOTIDINE 20 MG TABLET PO (08:20)
[2022-08-16] MEDS: levETIRAcetam 500 MG TABLET PO ×2 (08:21→20:48)
[2022-08-16] MEDS: DOCUSATE SODIUM 100 MG CAPSULE PO (08:21)
[2022-08-16] MEDS: TOLNAFTATE 1% POWDER 45 GM BTL 1 APPLIC TOPICAL ×2 (08:22→20:48)
[2022-08-16 09:32] LABS: Glucose Point of Care 186 mg/dl (65-105)
[2022-08-16 09:48] LABS: Basophils Percent Auto 0.2 % (0.2-1.2); Eosinophils Absolute Auto 0.2 K/mm3 (0-0.3); Eosinophils Percent Auto 1.6 % (0-4.4); Hematocrit 23.9 % (37.0-47.0); Hemoglobin 7.7 g/dL (12.0-15.0); Immature Granulocyte Absolute 0.12 K/mm3 (0.00-0.031); Immature Granulocyte Percent A 1.3 % (0-0.5); Lymphocytes Absolute Auto 1.29 K/mm3 (0.9-3.2); Mean Corpuscular HGB Conc 32.2 g/dl (32-36); Mean Corpuscular Volume 86.9 fl (80-100); Mean Platelet Volume 10.6 fl (7.4-10.4); Monocytes Absolute Auto 0.6 K/mm3 (0.1-0.6); Monocytes Percent Auto 6.3 % (2.6-8.5); Neutrophils Absolute Auto 7.1 K/mm3 (1.3-6.7); Neutrophils Percent Auto 76.6 % (45.5-73.1); Platelet Count Result 205 k/mm3 (150-375); Red Blood Count 2.75 M/mm3 (4.2-5.4); Red Cell Distribution Width 15.4 % (11.5-14.5); White Blood Count 9.2 K/mm3 (4.5-10.0)
[2022-08-16 10:24] LABS: Albumin Level 2.8 g/dL (3.5-5.1); Anion Gap 8 mmol/L (8-16); Blood Urea Nitrogen 46 mg/dL (7-17); Carbon Dioxide 17 mmol/L (22-30); Chloride 110 mmol/L (98-107); Estimated Glomerular Filt Rate 44; Glucose 183 mg/dL (65-110); Phosphorus 3.6 mg/dL (2.5-4.5); Potassium 4.1 mmol/L (3.4-5.0); Sodium 135 mmol/L (137-145)
[2022-08-16 10:34] LABS: CRP 26.4 mg/dL (<1.0)
[2022-08-16 12:22] LABS: Glucose Point of Care 179 mg/dl (65-105)
--- NOTE | 2022-08-16 16:18 | PM.IMPN ---
Progress Note: A&P Assessment and Plan (1) Fever: Code(s): R50.9 - Fever, unspecified Status: Acute Assessment and Plan: UA noted and now UCx positive. Abx started yesterday and no longer having fevers. White count is normal and abd pain better. CRP trending down. Chest x-ray was clear. BCx NGTD. Resp viral illness panel negative. Fever probably from UTI. Follow up on UCx results. (2) Abdominal pain: Code(s): R10.9 - Unspecified abdominal pain Status: Acute Assessment and Plan: Patient with abdominal pain. CT the abdomen pelvis showing bladder wall thickening. No urinary symptoms but repeat Urinalysis c/w UTI. Abdominal pain better since starting abx. As above (3) Acute kidney injury: Code(s): N17.9 - Acute kidney failure, unspecified Status: Acute Assessment and Plan: Cr 2.0 with normal baseline. Lasix and lisinopril held. Renal ultrasound within normal limits. Cr 1.3 today and stable. Metabolic acidosis related to recovery of renal function. Continue Bicarb. Elevated Cr could be related to UTI. Follow. (4) Anemia: Code(s): D64.9 - Anemia, unspecified Status: Acute Assessment and Plan: Hgb low but stable. Iron studies few months ago showing very mild iron deficiency. She is currently on iron. No evidence of acute blood loss. Will continue to follow. (5) Bipolar disorder: Code(s): F31.9 - Bipolar disorder, unspecified Status: Acute Assessment and Plan: Mood stable. Continue home medications. (6) Chronic anticoagulation: Code(s): Z79.01 - watermaster (current) use of anticoagulants Status: Acute Assessment and Plan: History of PE/DVT. Continue Xarelto. (7) COPD (chronic obstructive pulmonary disease): Code(s): J44.9 - Chronic obstructive pulmonary disease, unspecified Status: Acute Assessment and Plan: No wheezing. 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 The patient's blood glucose was reviewed on 08/16 Glucose remains well controlled Continue AccuCheks covering with sliding scale. Hypoglycemia protocol available as needed. Continue to follow (9) HTN (hypertension): Code(s): I10 - Essential (primary) hypertension Status: Acute Assessment and Plan: Patient's blood pressure was reviewed on 08/16 Blood pressure soft today. Not on anti-HTN meds except metoprolol Decreased metoprolol and BP remaining stable. Will continue to monitor (10) Epilepsy: Code(s): G40.909 - Epilepsy, unspecified, not intractable, without status epilepticus Status: Acute Assessment and Plan: Stable Continue Keppra Plan DVT prophylaxis with Xarelto Code status full code Subjective Date/time seen: 08/16/22 16:18 Interval history: 46yo female with COPD, DM and bipolar disorder brought in from the [facility] for SOB. Abd pain better. She is sleepy today. No n/v. Exam Narrative: AF 97.1 106/64 67 18 100% ra Gen - NARD Chest - clear BS anteriorly. nml RR CV - RRR S1/S2 Abd - soft. Obese. Nontender. positive bowel sounds Ext - No pedal edema Psych - Nml mood and affect. Skin - Warm and dry. Objective Data Vital Signs Vital Signs: Vital Signs - 24 hr 08/15/22 16:35 08/15/22 20:42 08/15/22 20:40 Temperature 98.1 F Pulse Rate 77 77 Respiratory Rate 18 Blood Pressure 111/70 Pulse Oximetry 98 100 Oxygen Delivery Room Air 08/15/22 20:00 08/16/22 05:03 08/16/22 08:18 Temp
[2022-08-16 16:54] LABS: Glucose Point of Care 162 mg/dl (65-105)
[2022-08-16] MEDS: RIVAROXABAN 10 MG TABLET PO (17:33)
[2022-08-16 17:59] LABS: Glucose Point of Care 149 mg/dl (65-105)
[2022-08-16] MEDS: MELATONIN 5 MG TABLET PO (20:47)
[2022-08-16] MEDS: OXYBUTYNIN CHLORIDE 5 MG TABLET PO (20:47)
[2022-08-16] MEDS: ATORVASTATIN 20 MG TABLET PO (20:48)
[2022-08-16 20:50] LABS: Glucose Point of Care 205 mg/dl (65-105)
[2022-08-16] MEDS: INSULIN GLARGINE (*BKC) 100 UNITS/ML 30 UNITS SUB-Q (20:51)
[2022-08-17 04:40] VITALS: BP 121/71; PULSE 73; RESP 20; TEMP 36.5; O2SAT 97
[2022-08-17] MEDS: ACETAMINOPHEN 325 MG TABLET 650 MG PO (05:24)
[2022-08-17 06:16] LABS: Anion Gap 6 mmol/L (8-16); Blood Urea Nitrogen 37 mg/dL (7-17); Calcium 8.2 mg/dL (8.4-10.2); Carbon Dioxide 21 mmol/L (22-30); Chloride 108 mmol/L (98-107); Estimated Glomerular Filt Rate > 60; Glucose 186 mg/dL (65-110); Sodium 135 mmol/L (137-145)
[2022-08-17 07:40] VITALS: PULSE 70; O2SAT 100
[2022-08-17] MEDS: PROMETHAZINE HCL 25 MG TABLET PO (07:59)
[2022-08-17 08:50] VITALS: BP 118/58; PULSE 70; O2SAT 100
[2022-08-17 08:54] LABS: Glucose Point of Care 171 mg/dl (65-105)
[2022-08-17] MEDS: ALPRAZolam (*CRX) 0.5 MG TABLET PO ×3 (08:54→16:16)
[2022-08-17] MEDS: busPIRone HCL 5 MG TABLET PO (08:54)
[2022-08-17] MEDS: LORATADINE 10 MG TABLET PO (08:54)
[2022-08-17] MEDS: SODIUM BICARBONATE TAB 650 MG TABLET PO ×2 (08:56→16:16)
[2022-08-17] MEDS: CIPROFLOXACIN 500 MG TAB PO (08:56)
[2022-08-17] MEDS: busPIRone HCL 2.5 MG TABLET PO (08:56)
[2022-08-17] MEDS: FAMOTIDINE 20 MG TABLET PO (08:56)
[2022-08-17] MEDS: FERROUS SULFATE 324 MG TABLET PO ×2 (08:56→16:16)
[2022-08-17] MEDS: levETIRAcetam 500 MG TABLET PO (08:56)
[2022-08-17] MEDS: TOLNAFTATE 1% POWDER 45 GM BTL 1 APPLIC TOPICAL (08:58)
[2022-08-17 09:04] VITALS: PULSE 70
[2022-08-17] MEDS: METOPROLOL TARTRATE 12.5 MG TABLET PO (09:04)
[2022-08-17 11:58] LABS: Glucose Point of Care 205 mg/dl (65-105)
[2022-08-17] MEDS: INSULIN ASPART (*BKC) 100 UNITS/ML SUB-Q ×2 (12:35→18:24)
[2022-08-17 12:40] LABS: Glucose Point of Care 240 mg/dl (65-105)
[2022-08-17 14:00] VITALS: BP 119/69; PULSE 100; RESP 20; TEMP 36.3; O2SAT 94
--- NOTE | 2022-08-17 15:20 | PM.IMPN ---
Progress Note: A&P Assessment and Plan (1) UTI (urinary tract infection): Code(s): N39.0 - Urinary tract infection, site not specified Status: Acute Assessment and Plan: UA noted and now UCx positive. Abx started and no longer having fevers. White count is normal and abd pain better. CRP trending down. Chest x-ray was clear. BCx NGTD. Resp viral illness panel negative. Fever probably from UTI. UCx positive with final result pending. (2) Fever: Code(s): R50.9 - Fever, unspecified Status: Acute Assessment and Plan: As above (3) Abdominal pain: Code(s): R10.9 - Unspecified abdominal pain Status: Acute Assessment and Plan: Patient with abdominal pain. CT the abdomen pelvis showing bladder wall thickening. No urinary symptoms but repeat Urinalysis c/w UTI. Abdominal pain better since starting abx. As above. (4) Acute kidney injury: Code(s): N17.9 - Acute kidney failure, unspecified Status: Acute Assessment and Plan: Cr 2.0 with normal baseline. Lasix and lisinopril held. Renal ultrasound within normal limits. Elevated Cr could be related to UTI and/or possibly from HoTN. Cr 0.9 today and stable. Metabolic acidosis better. Continue Bicarb. Follow. (5) Anemia: Code(s): D64.9 - Anemia, unspecified Status: Acute Assessment and Plan: Hgb low but stable. Iron studies few months ago showing very mild iron deficiency. She is currently on iron. No evidence of acute blood loss. Will continue to follow. (6) Bipolar disorder: Code(s): F31.9 - Bipolar disorder, unspecified Status: Acute Assessment and Plan: Mood stable. Continue home medications. (7) Chronic anticoagulation: Code(s): Z79.01 - care home (current) use of anticoagulants Status: Acute Assessment and Plan: History of PE/DVT. Continue Xarelto. (8) COPD (chronic obstructive pulmonary disease): Code(s): J44.9 - Chronic obstructive pulmonary disease, unspecified Status: Acute Assessment and Plan: No wheezing. Stable (9) Diabetes mellitus: Qualifiers: Diabetes mellitus complication status: without complication Diabetes mellitus residential insulin use: with termite treater use Diabetes mellitus type: type 2 Qualified Code(s): E11.9 - Type 2 diabetes mellitus without complications; Z79.4 - care home (current) use of insulin Code(s): E11.9 - Type 2 diabetes mellitus without complications Status: Chronic Assessment and Plan: A1c is 9.3. The patient's blood glucose was reviewed on 08/17 Glucose elevated at times. Continue AccuCheks covering with sliding scale. Hypoglycemia protocol available as needed. Continue to follow (10) HTN (hypertension): Code(s): I10 - Essential (primary) hypertension Status: Acute Assessment and Plan: Patient's blood pressure was reviewed on 08/17 Blood pressure better today. Not on anti-HTN meds except metoprolol at half her home dose. Lisinopril has been held. Will continue to monitor (11) Epilepsy: Code(s): G40.909 - Epilepsy, unspecified, not intractable, without status epilepticus Status: Acute Assessment and Plan: Stable Continue Keppra Plan DVT prophylaxis with Xarelto Code status full code Subjective Date/time seen: 08/17/22 15:20 Interval history: 46yo female with COPD, DM and bipolar disorder brought [facility] for SOB. Still with occasional nausea. No vomiting. Able to tolerate oral intake. No headache. Complains of malaise. No dirrhea. No abd pain. Complains of low back pain but chronic. No CP or SOB. Mild sore throat. Exam Narrative: AF 97.4 119/69 100 20 94% ra Gen - NARD Chest - clear BS anteriorly. nml RR CV - RRR S1/S2 Abd - soft. Obese. Nontender. positive bowel sounds Ext - No pedal edema Psych - Nml mood and affect. Skin - Warm
[2022-08-17 17:07] LABS: Glucose Point of Care 251 mg/dl (65-105)
[2022-08-17 17:55] LABS: Glucose Point of Care 279 mg/dl (65-105)
[2022-08-17] MEDS: RIVAROXABAN 10 MG TABLET PO (18:22)
[2022-08-17] MEDS: ERTAPENEM 1 GM/NS 50 ML 1 GM/50 ML BAG IVPB (18:26)
--- NOTE | 2022-08-17 19:10 | PC.NURSE ---
Patient requesting to be discharged due to cultures resulting. Dr. Gaytan stated patient needed to stay overnight to get IV antibiotics and come up with treatment plan outpatient. I notified him that patient was threatening to leave AMA. She stated she was going home and was not going to the long-term. He requested I try to convince patient to stay one more night. I spoke with patient's and notified him that the patient needed to stay for IV antibiotics and was not being discharged. I notified him that the patient wanted to leave AMA and he stated he will NOT pick patient up because he wants her to stay overnight. The patient stated she will call a cab and the stated he would talk to her. Patient agreed to stay and evening meds were given. Patient received first dose of ertapenem. Patient later decided that she was not going to stay and called a cab. Patient stated she was leaving AMA. Melody SANTILLAN, gave patient AMA form which she signed and was taken to the lobby.
--- NOTE | 2022-08-17 20:07 | PC.NURSE ---
Pt called RN into room IV is beeping. Pt is alert and oriented to self , time, and place. Pt is demanding to sign out AMA, Pt has called a cab and cab is here and pt is wanting to leave now. IV site Dc'ed and AMA papers signed. When pt arrived to [facility] and the cab had already left. stationary engineer supervisor was notified pt was wanting to leave AMA and that she could as long as she is alert and oriented. Pt is now in the lobby and has again called for a cab which her will pay for.
--- NOTE | 2022-08-19 18:49 | PM.DS ---
DS: Admitting Diagnosis Discharge Date 08/17/22 Admitting Diagnosis Shortness of breath DS: Discharge Diagnosis Discharge Diagnosis (1) UTI (urinary tract infection): Code(s): N39.0 - Urinary tract infection, site not specified Status: Acute (2) Fever: Code(s): R50.9 - Fever, unspecified Status: Acute (3) Abdominal pain: Code(s): R10.9 - Unspecified abdominal pain Status: Acute (4) Acute kidney injury: Code(s): N17.9 - Acute kidney failure, unspecified Status: Acute (5) Anemia: Code(s): D64.9 - Anemia, unspecified Status: Acute (6) Bipolar disorder: Code(s): F31.9 - Bipolar disorder, unspecified Status: Acute (7) Chronic anticoagulation: Code(s): Z79.01 - 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 of anticoagulants Status: Acute (8) COPD (chronic obstructive pulmonary disease): Code(s): J44.9 - Chronic obstructive pulmonary disease, unspecified Status: Acute (9) Diabetes mellitus: Qualifiers: Diabetes mellitus type: type 2 Diabetes mellitus fci insulin use: with fci use Diabetes mellitus complication status: without complication Qualified Code(s): E11.9 - Type 2 diabetes mellitus without complications; Z79.4 - intermediate (current) use of insulin Code(s): E11.9 - Type 2 diabetes mellitus without complications Status: Chronic (10) HTN (hypertension): Code(s): I10 - Essential (primary) hypertension Status: Acute (11) Epilepsy: Code(s): G40.909 - Epilepsy, unspecified, not intractable, without status epilepticus Status: Acute DS: Summary Hospital Course Reason for hospitalization: 46yo female with COPD, DM and bipolar [facility] Please see H&P for details Hospital Course: Patient presented with shortness of breath. She was found to have acute kidney injury. Lasix and lisinopril were held. Renal ultrasound was normal. Creatinine normalized. She also metabolic acidosis requiring oral bicarb. She developed abdominal pain then fevers. First urinalysis on admission was not consistent with UTI. Second urinalysis however was consistent with UTI. Urine culture grew Proteus that was had significant resistance pattern. She was switched to ertapenem. Patient left against medical advice on the evening hours of 08/17/2022. I was unavailable to inform the patient of the risks of doing so. Status at Discharge Cognitive/behavioral status at discharge: stable Time Spent with Patient Time attestation: Total time spent providing and/or coordinating discharge services: 34 minutes Time spent: Greater than 30 minutes Exam Narrative: AF 97.4 119/69 100 20 94% ra Gen - NARD Chest - clear BS anteriorly. nml RR CV - RRR S1/S2 Abd - soft. Obese. Nontender. positive bowel sounds Ext - No pedal edema Psych - Nml mood and affect. Skin - Warm and dry. DS: Data Data Completed and Pending Labs on day of discharge: Preliminary micro results at discharge 08/14/22 09:29 Blood Culture - Preliminary Blood 08/14/22 09:27 Blood Culture - Preliminary Blood Discharge Plan Discharge Attending physician on discharge: Manas Gaytan Consulting providers: Misty Holman ; Talha Perez ; Mattie Melvin ; Nnamdi Leo V. ; Lenin Gonzales Discharging Clinician: Manas Gaytan Patient Disposition: Left Against Medical Advice Patient Instructions: Rivaroxaban (By mouth), Heart Failure (DC) Discharge Medications: No Action levetiracetam [Keppra] 500 mg Tablet 500 mg PO BID furosemide 20 mg tablet 40 mg PO BID insulin glargine [Basaglar KwikPen U-100 Insulin] 100 unit/mL (3 mL) insulin pen 30 unit SUBCUT HS atorvastatin 20 mg tablet 20 mg PO HS lisinopril 20 mg tablet 20 mg PO DAILY alprazolam 0.5 mg tablet 0.5 mg PO TID methocarbam
== END 2022-08-17 19:30 | disposition left against medical advice (07) | DRG 469 ==
LOC: ANHED 12:43 → ANH3MED 16:14
PROVIDERS: Nurse Practitioner; Student in an Organized Health Care Education/Training Program; Admitting Provider Internal Medicine; Emergency Provider Emergency Medicine; PCP Internal Medicine; Visit Provider Internal Medicine
DX: N17.9 Acute kidney failure, unspecified (principal); E87.20 Acidosis, unspecified; G62.9 Polyneuropathy, unspecified; N39.0 Urinary tract infection, site not specified; B96.4 Proteus (mirabilis) (morganii) as the cause of diseases classified elsewhere; E11.9 Type 2 diabetes mellitus without complications; D50.9 Iron deficiency anemia, unspecified; E66.9 Obesity, unspecified; E78.5 Hyperlipidemia, unspecified; F31.9 Bipolar disorder, unspecified; F41.9 Anxiety disorder, unspecified; G40.909 Epilepsy, unspecified, not intractable, without status epilepticus; Z20.822 Contact with and (suspected) exposure to COVID-19; J44.9 Chronic obstructive pulmonary disease, unspecified; M19.90 Unspecified osteoarthritis, unspecified site; L30.9 Dermatitis, unspecified; E86.0 Dehydration; K21.9 Gastro-esophageal reflux disease without esophagitis; G47.33 Obstructive sleep apnea (adult) (pediatric); G89.4 Chronic pain syndrome; Z96.653 Presence of artificial knee joint, bilateral; Z79.01 Long term (current) use of anticoagulants; Z79.4 Long term (current) use of insulin; Z86.718 Personal history of other venous thrombosis and embolism; Z86.711 Personal history of pulmonary embolism; Z68.32 Body mass index [BMI] 32.0-32.9, adult; Z91.199 Patient's noncompliance with other medical treatment and regimen due to unspecified reason; Z95.0 Presence of cardiac pacemaker; Z90.49 Acquired absence of other specified parts of digestive tract; Z87.891 Personal history of nicotine dependence
CPT/HCPCS: 36415; 71045; 71046; 74176; 76775; 80048; 80053; 80069; 81001; 81025; 82948; 83036; 83605; 83735; 84145; 84443; 85025; 85027; 85055; 86140; 87040; 87077; 87086; 87186; 87636; 87637; 96360; 96361; 96374; 99285; A9270; G0378; G0379; J1335; J1815; J2405; J7030

== ENCOUNTER 2022-09-20 22:17 | Observation (INO) | payer OTHER, SELFPAY ==
--- NOTE | ~2022-09-20 | XR_ITS ---
XR chest 2V DATE: 09/20/2022 23:05 INDICATION: Shortness of breath, congestive heart failure TECHNIQUE: PA and lateral views COMPARISON: 08/14/2022 2 view chest FINDINGS: Left transvenous pacemaker device with leads overlying right atrium and right ventricle. Th ere is cardiomegaly. Borderline pulmonary vascular prominence. Mild blunting of the right costophreni c angle may indicate mild right pleural effusion. Minimal infiltrate or atelectasis is suggested at the lung bases. Status post cholecystectomy. IMPRESSION: Cardiomegaly, borderline pulmonary vascular congestion, small right pleural effusion. Con compounder sterile products mild congestive heart failure Minimal infiltrate or atelectasis is suggested at the lung bases Left dual-lead pacemaker Reviewed, dictated and finalized at location A. SE DRIVER IMPRESSION: Cardiomegaly, borderline pulmonary vascular congestion, small right pleural effusion. Consider mild congestive heart failure Minimal infiltrate or atelectasis is suggested at the lung bases Left dual-lead pacemaker
--- NOTE | 2022-09-20 22:18 | ECG_ITS ---
Measurements Intervals [place] Rate: 92 P: 55 [place]: 153 QRS: 34 QRSD: 91 T: -4 QT: 382 QTc: 473 Interpretive Statements SINUS RHYTHM LOW QRS VOLTAGE IN PRECORDIAL LEADS [QRS DEFLECTION < 1.0 mV IN CHEST LEADS] NONSPECIFIC ST CHANGES COMPARED TO ECG 08/05/2022 18:36:40 [address] NOW PRESENT [address] (T WAVE) DEVIATION NOW PRESENT Electronically Signed On 09-21-2022 8:28:25 SCIENTIFIC LINGUIST by Aletha Harrison M.D.
[2022-09-20 22:28] VITALS: BP 138/54; PULSE 94; RESP 20; TEMP 36.3; O2SAT 97
[2022-09-20 23:35] VITALS: O2SAT 92
--- NOTE | 2022-09-20 23:37 | PC.NURSE ---
This RN attempted IV access x2, no success. Another RN to try
[2022-09-21] VITALS (16 sets, daily range): BP systolic 131–160; BP diastolic 60–108; PULSE 76–97; RESP 16–20; TEMP 36.2–36.6; O2SAT 88–100; BMI 46.6
[2022-09-21 00:06] LABS: Basophils Percent Auto 0.7 % (0.2-1.2); Eosinophils Absolute Auto 0.2 K/mm3 (0-0.3); Eosinophils Percent Auto 2.5 % (0-4.4); Hematocrit 28.5 % (37.0-47.0); Hemoglobin 8.9 g/dL (12.0-15.0); Immature Granulocyte Absolute 0.02 K/mm3 (0.00-0.031); Immature Granulocyte Percent A 0.3 % (0-0.5); Lymphocytes Percent Auto 14.9 % (18.3-44.2); Mean Corpuscular HGB Conc 31.2 g/dl (32-36); Mean Corpuscular Hemoglobin 28.6 pg (26-34); Mean Corpuscular Volume 91.6 fl (80-100); Mean Platelet Volume 10.7 fl (7.4-10.4); Monocytes Absolute Auto 0.6 K/mm3 (0.1-0.6); Monocytes Percent Auto 10.4 % (2.6-8.5); Neutrophils Absolute Auto 4.3 K/mm3 (1.3-6.7); Neutrophils Percent Auto 71.2 % (45.5-73.1); Platelet Count Result 259 k/mm3 (150-375); Red Blood Count 3.11 M/mm3 (4.2-5.4); Red Cell Distribution Width 15.5 % (11.5-14.5); White Blood Count 6.1 K/mm3 (4.5-10.0)
[2022-09-21 00:19] LABS: INR 1.1; Prothrombin Time 13.6 Seconds (11.1-14.7)
[2022-09-21 00:20] LABS: Partial Thromboplastin Time 20.7 SECONDS (22.3-36.8)
[2022-09-21] MEDS: FUROSEMIDE INJ 100 MG/10 ML VIAL 80 MG IV PUSH (00:20)
[2022-09-21 00:36] LABS: NT Pro B Type Natriuretic Pept 2940 pg/mL (19.9-100); Troponin I < 0.012 ng/mL (0.000-0.034)
[2022-09-21 00:43] LABS: Alanine Aminotransferase 14 U/L (6-35); Albumin Level 3.2 g/dL (3.5-5.1); Alkaline Phosphatase 103 U/L (38-126); Anion Gap 4 mmol/L (8-16); Aspartate Amino Transferase 18 U/L (14-36); Bilirubin,Total 0.9 mg/dL (0.2-1.3); Blood Urea Nitrogen 17 mg/dL (7-17); Carbon Dioxide 34 mmol/L (22-30); Chloride 96 mmol/L (98-107); Estimated Glomerular Filt Rate > 60; Glucose 598 mg/dL (65-110); Potassium 3.5 mmol/L (3.4-5.0); Sodium 134 mmol/L (137-145)
--- NOTE | 2022-09-21 00:56 | PM.IMHP ---
H&P: HPI History of Present Illness Date/Time: 09/21/22 00:56 Chief Complaint: sob PMFSH Past Medical History Medical History Anemia Anxiety Arthritis Asthma Bipolar disorder Chronic anticoagulation For history of DVT and PE. Chronic obstructive pulmonary disease Chronic pain syndrome Deep venous thrombosis Depression Eczema Gastroesophageal reflux disease Herniated disc History of MRSA infection Hyperlipidemia Hypertension Insulin dependent diabetes mellitus Historically poorly controlled. Obesity Obstructive sleep apnea Non compliant with treatment. Peripheral neuropathy Pulmonary embolism Seizures Sleep apnea Suicide attempt T11 vertebral fracture Nondisplaced fracture of the right T11 inferior articulating facet. No surgical intervention required. Surgical History Surgical History History of bilateral knee replacement History of cardiac catheterization History of cardiac pacemaker For paroxysmal ventricular arrhythmia/tachycardia. History of cholecystectomy Family History Family History Mother Heart disease Acute myocardial infarction Uterine cancer COVID-19 Diabetes mellitus Hypertension Kidney disease Father Heart disease Social History Social History Social History: The patient is disabled. The patient resides [facility]. She is a former smoker. She has also used drugs in the past. Code status: Full code. Smoking packs per day: 1.5 Smoking cigarettes per day: 30.0 Years smoked: 9 Smoking pack-years: 13.50 Smoking status: Former smoker Tobacco type: cigarettes Second hand tobacco smoke exposure: Yes Smoking end date: 01/07/01 Alcohol intake: never Substance use: never Substance use type: does not use Lack of Transportation: No Lack of Food: Never True Current Housing: I Have Housing Concerned About Future Housing: Decline to Answer Difficulty Paying Gas/Electric Bills: Decline to Answer Difficulty Paying for Meds: Decline to Answer Currently Unemployed: Decline to Answer Education: Don't Know Difficulty w/ Childcare or Family Care: Decline to Answer Living arrangements: with family Additional living arrangements comments: . Four children being raised by her sister. Additional occupation/education comments: Disabled. Spiritual care concerns: No Meds Home Medications and Allergies Home Medications Medication Instructions Recorded Confirmed Type atorvastatin 20 mg tablet 20 mg PO HS 08/21/19 08/10/22 History furosemide 20 mg tablet 40 mg PO BID 01/18/22 08/10/22 History insulin glargine 100 unit/mL (3 30 unit subcut HS 01/19/22 08/10/22 History mL) subcutaneous pen (Basaglar MckennaikPen U-100 Insulin) albuterol sulfate 90 mcg/actuation 2 puff inhalation Q4H PRN 04/22/22 08/10/22 History aerosol inhaler Shortness Of Breath alprazolam 0.5 mg tablet 0.5 mg PO TID 04/22/22 08/10/22 History docusate sodium 100 mg capsule 100 mg PO DAILY 04/22/22 08/10/22 History famotidine 20 mg tablet (Pepcid) 20 mg PO DAILY 04/22/22 08/10/22 History lisinopril 20 mg tablet 20 mg PO DAILY 04/22/22 08/10/22 History loratadine 10 mg tablet 10 mg PO DAILY 04/22/22 08/10/22 History melatonin 5 mg tablet 5 mg PO HS 04/22/22 08/10/22 History methocarbamol 750 mg tablet 750 mg PO Q8H PRN Muscle Pain 04/22/22 08/10/22 History metoprolol tartrate 25 mg tablet 25 mg PO BID 04/22/22 08/10/22 History ferrous sulfate 325 mg (65 mg 324 mg PO BIDWM #30 tabs 04/29/22 08/10/22 Rx iron) tablet tolnaftate 1 % topical powder 1 applic topical Q12HR #45 grams 04/29/22 08/10/22 Rx promethazine 25 mg tablet 25 mg PO TID PRN Nausea 08/10/22 08/10/22 History apixaban 5 mg tablet (Eliquis) 5 mg PO DAILY 09/21/22 09/21/22 Histor
--- NOTE | 2022-09-21 00:59 | ED.GENADULT ---
HPI - General Adult General Chief complaint: Shortness of Breath/Dyspnea Stated complaint: CHF, SOB Time Seen by Provider: 09/20/22 23:21 History of Present Illness HPI narrative: Is a 46-year-old female history of congestive heart failure presenting to ED with chief complaint of Difficulty breathing andlower extremity edema that has been steadily getting worse over last 4 days. patient says she has been taking her Lasix as directed but she is still having progressively worse swelling of her legs hips and belly. She also has shortness of breath when she lays flat. She denies fever, chills, nausea vomiting, chest pain, abdominal pain or urinary symptoms. Related Data Home Medications Medication Instructions Recorded Confirmed atorvastatin 20 mg tablet 20 mg PO HS 08/21/19 08/10/22 levetiracetam 500 mg tablet 500 mg PO BID 02/14/20 08/10/22 (Keppra) furosemide 20 mg tablet 40 mg PO BID 01/18/22 08/10/22 insulin glargine 100 unit/mL (3 30 unit subcut HS 01/19/22 08/10/22 mL) subcutaneous pen (Basaglar KwikPen U-100 Insulin) albuterol sulfate 90 mcg/actuation 2 puff inhalation Q4H PRN 04/22/22 08/10/22 aerosol inhaler Shortness Of Breath alprazolam 0.5 mg tablet 0.5 mg PO TID 04/22/22 08/10/22 buspirone 7.5 mg tablet 7.5 mg PO BID 04/22/22 08/10/22 docusate sodium 100 mg capsule 100 mg PO DAILY 04/22/22 08/10/22 famotidine 20 mg tablet (Pepcid) 20 mg PO DAILY 04/22/22 08/10/22 lisinopril 20 mg tablet 20 mg PO DAILY 04/22/22 08/10/22 loratadine 10 mg tablet 10 mg PO DAILY 04/22/22 08/10/22 melatonin 5 mg tablet 5 mg PO HS 04/22/22 08/10/22 methocarbamol 750 mg tablet 750 mg PO Q8H PRN Muscle Pain 04/22/22 08/10/22 metoprolol tartrate 25 mg tablet 25 mg PO BID 04/22/22 08/10/22 Xarelto 10 mg PO DAILY 08/10/22 08/10/22 oxybutynin chloride 5 mg tablet 5 mg PO HS 08/10/22 08/10/22 promethazine 25 mg tablet 25 mg PO TID PRN Nausea 08/10/22 08/10/22 tramadol 50 mg tablet 50 mg PO BID PRN Pain 08/10/22 08/10/22 ziprasidone HCl 20 mg capsule 20 mg PO BID 08/10/22 08/10/22 Allergies Allergy/AdvReac Type Severity Reaction Status Date / Time lidocaine Allergy Intermediate HIVES Verified 09/20/22 22:30 nitroglycerin Allergy Intermediate HIVES Verified 09/20/22 22:30 aspirin Allergy Mild Hives Verified 09/20/22 22:30 citalopram Allergy Mild Rash Verified 09/20/22 22:30 escitalopram Allergy Mild Hives Verified 09/20/22 22:30 ibuprofen Allergy Mild Hives Verified 09/20/22 22:30 Penicillins Allergy Mild HIVES PER Verified 09/20/22 22:30 UNCODED ALLERGIES 08/27/12 procaine Allergy Mild Hives Verified 09/20/22 22:30 propoxyphene Allergy Mild Hives Verified 09/20/22 22:30 doxycycline Allergy Unknown Hives Verified 09/20/22 22:30 meloxicam Allergy Unknown HIVES Verified 09/20/22 22:30 Sulfa (Sulfonamide Allergy Unknown HIVES PER Verified 09/20/22 22:30 Antibiotics) UNCODED ALLERGIES 08/27/12 sulfamethoxazole Allergy Unknown Hives Verified 09/20/22 22:30 trimethoprim Allergy Unknown Hives Verified 09/20/22 22:30 codeine Allergy Hives Verified 09/20/22 22:30 iohexol Allergy Hives Verified 09/20/22 22:30 [From contrast - CT, X-RAY] adhesive AdvReac Unknown SILK TAPE= Verified 09/20/22 22:30 HIVES imipenem AdvReac Itching Verified 09/20/22 22:30 PMFSH Past Medical History Medical History Anemia Anxiety Arthritis Asthma Bipolar disorder Chronic anticoagulation For history of DVT and PE. Chronic obstructive pulmonary disease Chronic pain syndrome Deep venous thrombosis Depression Eczema Gastroesophageal reflux disease Herniated disc History of MRSA infection Hyperlipidemia Hypertension Insulin dependent diabetes mellitus Historically poorly controlled. Obesity Obstructive sleep apnea Non compliant with treatment. Peripheral neuropathy Pulmonary embolism Seizures Sleep apnea Suicide attempt T11 vertebral fracture Nondisplaced fractur
--- NOTE | 2022-09-21 01:15 | PC.NURSE ---
Pt requesting pain medication for generalized pain, EDP notified. No new orders
[2022-09-21] MEDS: INSULIN HUMAN REGULAR (*BKC) 100 UNITS/ML 10 UNITS IV PUSH (01:20)
[2022-09-21] MEDS: ACETAMINOPHEN 500 MG TABLET 1000 MG PO (01:31)
[2022-09-21 02:12] LABS: Glucose Point of Care 445 mg/dl (65-105)
--- NOTE | 2022-09-21 03:07 | ADMGEN ---
This patient, Valerie Nguyen, was admitted to [facility] Surg Room 328-01. Patient/family oriented to hospital policies and general routines including ID bracelet, bed and alarms, visiting hours, pain management, procedures, bathroom and other care routines, personal items, smoking policy, room service/diet, and visiting hours. Information on how to activate the Rapid Response Team has been discussed. Patient/Family are encouraged to report perceived risks to care and to ask questions if they do not understand what they are told or what they should do.
[2022-09-21] MEDS: traMADol HCL (*CRX) 50 MG TABLET PO ×3 (05:50→23:04)
[2022-09-21 06:55] LABS: Glucose Point of Care 394 mg/dl (65-105)
[2022-09-21 08:02] LABS: Basophils Percent Auto 0.5 % (0.2-1.2); Eosinophils Absolute Auto 0.2 K/mm3 (0-0.3); Eosinophils Percent Auto 2.9 % (0-4.4); Hematocrit 27.4 % (37.0-47.0); Hemoglobin 8.6 g/dL (12.0-15.0); Immature Granulocyte Absolute 0.03 K/mm3 (0.00-0.031); Immature Granulocyte Percent A 0.5 % (0-0.5); Lymphocytes Absolute Auto 1.11 K/mm3 (0.9-3.2); Mean Corpuscular HGB Conc 31.4 g/dl (32-36); Mean Corpuscular Hemoglobin 28.4 pg (26-34); Mean Corpuscular Volume 90.4 fl (80-100); Mean Platelet Volume 9.9 fl (7.4-10.4); Monocytes Absolute Auto 0.6 K/mm3 (0.1-0.6); Monocytes Percent Auto 10.8 % (2.6-8.5); Neutrophils Absolute Auto 3.6 K/mm3 (1.3-6.7); Neutrophils Percent Auto 65.3 % (45.5-73.1); Platelet Count Result 257 k/mm3 (150-375); Red Blood Count 3.03 M/mm3 (4.2-5.4); Red Cell Distribution Width 15.9 % (11.5-14.5); White Blood Count 5.5 K/mm3 (4.5-10.0)
[2022-09-21 08:11] LABS: Hemoglobin A1C 9.9 % (<5.7)
[2022-09-21 08:21] LABS: Alanine Aminotransferase 14 U/L (6-35); Albumin Level 3.2 g/dL (3.5-5.1); Alkaline Phosphatase 98 U/L (38-126); Anion Gap 2 mmol/L (8-16); Aspartate Amino Transferase 18 U/L (14-36); Bilirubin,Total 0.8 mg/dL (0.2-1.3); Blood Urea Nitrogen 15 mg/dL (7-17); Calcium 8.1 mg/dL (8.4-10.2); Carbon Dioxide 36 mmol/L (22-30); Chloride 94 mmol/L (98-107); Estimated Glomerular Filt Rate > 60; Glucose 413 mg/dL (65-110); Potassium 3.2 mmol/L (3.4-5.0); Sodium 132 mmol/L (137-145)
[2022-09-21] MEDS: INSULIN ASPART (*BKC) 100 UNITS/ML SUB-Q ×3 (08:25→17:16)
[2022-09-21] MEDS: INSULIN ASPART (*BKC) 100 UNITS/ML 6 UNITS SUB-Q ×3 (08:25→17:16)
[2022-09-21] MEDS: FUROSEMIDE INJ 40 MG/4 ML VIAL IV PUSH ×3 (08:26→23:06)
[2022-09-21] MEDS: ALPRAZolam (*CRX) 0.5 MG TABLET 1 MG PO ×3 (08:27→19:42)
[2022-09-21] MEDS: LORATADINE 10 MG TABLET PO (08:27)
[2022-09-21] MEDS: METOPROLOL SUCCINATE EXT REL 25 MG TABCR PO (08:27)
[2022-09-21] MEDS: methocarbamoL 750 MG TABLET PO (08:27)
[2022-09-21] MEDS: FERROUS SULFATE 324 MG TABLET PO ×2 (08:27→15:30)
[2022-09-21] MEDS: APIXABAN 5 MG TABLET PO ×2 (08:28→19:46)
[2022-09-21] MEDS: lisinopriL 20 MG TABLET PO (08:28)
[2022-09-21] MEDS: FAMOTIDINE 20 MG TABLET PO (08:28)
[2022-09-21 11:51] LABS: Glucose Point of Care 357 mg/dl (65-105)
--- NOTE | 2022-09-21 11:53 | PM.IMPN ---
Progress Note: A&P Assessment and Plan (1) Acute exacerbation of CHF (congestive heart failure): Code(s): I50.9 - Heart failure, unspecified Status: Acute Assessment and Plan: IV diuresis with Lasix 40 mg q.8 hours Daily weights, strict I&Os Cardiology consultation not ordered at this time, consider if patient does not improve or echo significantly worsened from previous Echo ordered and pending Echo from April 2022 showed an EF of 60-65% with normal diastolic function and mild pulmonary hypertension, no significant valvular abnormality noted but the study was technically difficult (2) Diabetes: Code(s): E11.9 - Type 2 diabetes mellitus without complications Status: Acute Assessment and Plan: Accu-Cheks, sliding scale insulin, continue home long-acting insulin at 30 units daily plus 6 units with meals as well as Januvia 100 mg twice daily, Actos 10 mg twice daily, hold glipizide A1c 9.9 (3) Morbidly obese: Code(s): E66.01 - Morbid (severe) obesity due to excess calories Status: Acute Assessment and Plan: Diet and exercise modifications recommended (4) Gastroesophageal reflux disease: Code(s): K21.9 - Gastro-esophageal reflux disease without esophagitis Status: Acute Assessment and Plan: Continue home Pepcid (5) Bipolar disorder: Code(s): F31.9 - Bipolar disorder, unspecified Status: Acute Assessment and Plan: Continue home Xanax (6) COPD (chronic obstructive pulmonary disease): Code(s): J44.9 - Chronic obstructive pulmonary disease, unspecified Status: Acute Assessment and Plan: Currently not on any inhalers at home, no PFTs available, current chest x-ray does not appear hyperinflated, pleural effusions noted Unsure of the veracity of diagnosis 100% on 2 L nasal cannula, likely can be weaned (7) Sleep apnea: Code(s): G47.30 - Sleep apnea, unspecified Status: Acute Assessment and Plan: Oxygen started last night, will check an ApneaLink tonight, suspect sleep apnea Plan DVT prophylaxis with Eliquis GI prophylaxis not indicated Code status full code Subjective Date/time seen: 09/21/22 11:53 Interval history: No overnight events noted. No chest pain or shortness of breath. No nausea, vomiting or diarrhea. No fevers or chills. She is complaining of pain all over and states this always happens when she goes into heart failure. She is requesting Percocet. Review of Systems Review of Systems: 12 point review of systems was assessed and was negative except as noted in the HPI Exam Narrative: General: No acute distress, alert and oriented per baseline HEENT: Atraumatic, normocephalic, mucous membranes moist CV: Regular rate and rhythm, S1, S2 Lungs: Diminished throughout with moderate air entry, scattered bibasilar crackles noted Abdomen: Soft, nontender, nondistended Extremities: Normal to inspection, non pitting edema B/L LE Skin: No rashes noted, no lesions or wounds seen Psych: Euthymic, normal affect Objective Data Vital Signs Vital Signs: Vital Signs - 24 hr 09/20/22 22:28 09/20/22 23:35 09/21/22 00:18 Temperature 97.4 F L Pulse Rate 94 97 Respiratory Rate 20 20 Blood Pressure 138/54 L 160/75 H Pulse Oximetry 97 92 95 Oxygen Delivery Room Air Room Air Oxygen Flow Rate 09/21/22 00:56 09/21/22 00:56 09/21/22 01:03 Temperature Pulse Rate 89 Respiratory Rate 18 Blood Pressure 139/75 Pulse Oximetry 88 L 97 99 Oxygen Delivery Nasal Cannula Oxygen Flow Rate 2 09/21/22 02:05 09/21/22 02:34 09/21/22 03:48 Temperature Pulse Rate 91 85 85 Respiratory Rate 16 18 Blood Pressure 144/65 H 133/69 Pulse Oximetry 100 100 Oxygen Delivery Oxygen Flow Rate 09/21/22 03:10 09/21/22 04:00 09/21/22 05:48 Temperature 97.4 F L 97.6 F Pulse Rate 89 85 84 Respiratory Rate 18 18 Blood
[2022-09-21 16:02] LABS: Appearance Urine Slightly Cloudy (Clear); Bilirubin Urine Negative (Negative); Blood Urine Trace-lysed (Negative); Color Urine Yellow (Yellow); Glucose Urine UA 3+ mg/dL (Negative); Ketones Urine Negative (Negative); Leukocyte Esterase Ur Negative LEU/UL (NEGATIVE); Nitrate Urine Negative (Negative); Protein Urine 3+ mg/dL (Negative); Specific Grav Ur 1.015 (1.001-1.035); Urobilinogen Urine 0.2 mg/dL (<2.0); pH Urine 5.5 (5.0-9.0)
[2022-09-21 16:07] LABS: Bacteria Urine Trace /hpf; Mucus Urine Rare /lpf; Squamous Epithelial Cell Urine Moderate /hpf (Few)
[2022-09-21 16:32] LABS: Add Urine Microscopic? YES
[2022-09-21 16:50] LABS: Glucose Point of Care 297 mg/dl (65-105)
[2022-09-21] MEDS: diphenhydrAMINE HCl CAP 25 MG CAPSULE PO (19:42)
[2022-09-21] MEDS: GABAPENTIN 300 MG CAPSULE PO (19:43)
[2022-09-21] MEDS: ATORVASTATIN 20 MG TABLET PO (19:45)
[2022-09-21] MEDS: MELATONIN 5 MG TABLET 10 MG PO (19:46)
[2022-09-21] MEDS: POTASSIUM CHLORIDE 20 MEQ TABLET 40 MEQ PO (23:03)
[2022-09-21] MEDS: HYDROCORTISONE 1% 30 GM CREAM 1 APPLIC TOPICAL (23:05)
[2022-09-21] MEDS: TOLNAFTATE 1% POWDER 45 GM BTL 1 APPLIC TOPICAL (23:06)
[2022-09-21] MEDS: INSULIN GLARGINE (*BKC) 100 UNITS/ML 30 UNITS SUB-Q (23:18)
--- NOTE | 2022-09-21 23:33 | PCRCNOTE ---
unable to perform sleep study on 09/21 due to pt being on IV lasix
[2022-09-22] VITALS (10 sets, daily range): BP systolic 96–123; BP diastolic 55–62; PULSE 70–82; RESP 18; TEMP 35.6–36.2; O2SAT 92–100
--- NOTE | 2022-09-22 | ECHO_ITS ---
Patient Info Name: Valerie Nguyen Age: 46 years : 1975 Gender: Female Ht: 59 in Wt: 231 lbs BSA: 2.16 m2 HR: 75 bpm BP: 108 / 55 mmHg Technical Quality: Poor Exam Date: 09/22/2022 12:49 PM Exam Location: [facility] Pulmonary Exam Room: [facility] Patient Status: Inpatient Admit Date: 09/21/2022 Staff Ordering Physician: Mattie Melvin DO [employer] Wagon Driver: Caitlin Lombardo RDCS Attending Provider: Gurjit Feliciano MD Referring Physician: gNozi RAUSCH; Exam Type: CA echo dop color flow w con Study Info Indications - sob Complete two-dimensional, color flow and Doppler transthoracic echocardiogram is performed with contrast to opacify the left ventricle and to improve the deliniation of the left ventricle endocardial borders. Contrast/Agitated Saline Contrast/Ag. Saline: Definity Amount: 3.00 ml Administered By: Caitlin Lombardo [facility] Existing IV Access: Yes IV Access Condition: patent with no signs of infiltration Summary 1. Technically suboptimal study due to poor sonographic images. 2. Definity contrast administered improved wall motion interpretation. 3. Left ventricular chamber dimension is normal. 4. Left ventricular systolic function is normal, estimated at 60-65%. 5. There is mild concentric increased left ventricular wall thickness. 6. The left ventricular diastolic function is abnormal. 7. E/e' 19 is elevated. 8. There is mild aortic valve sclerosis. 9. The mitral valve has mildly calcified annulus. 10. No pulmonary hypertension, estimated pulmonary arterial systolic pressure is 27 mmHg. 11. There is trivial pericardial effusion. Left Ventricle E/e' 19 is elevated. Definity contrast administered improved wall motion interpretation. Technically suboptimal study due to poor sonographic images. Left ventricular chamber dimension is normal. Left ventricular systolic function is normal, estimated at 60-65%. There is mild concentric increased left ventricular wall thickness. The left ventricular diastolic function is abnormal. Right Ventricle Right ventricular chamber dimension is normal. Right ventricular systolic function is normal. Left Atria Left atrial chamber dimension is normal. Right Atria Right atrial chamber dimension is normal. Aortic Valve The aortic valve is trileaflet. There is mild aortic valve sclerosis. There is no aortic valve stenosis. There is no aortic valve regurgitation. Pulmonic Valve There is no pulmonic regurgitation. Mitral Valve The mitral valve has mildly calcified annulus. There is no mitral valve stenosis. There is no mitral valve regurgitation. Tricuspid Valve There is no tricuspid valve regurgitation. No pulmonary hypertension, estimated pulmonary arterial systolic pressure is 27 mmHg. Pericardium/Pleural There is trivial pericardial effusion. Inferior Vena Cava Normal inferior vena cava with >50% collapse upon inspiration consistent with normal right atrial pressure, 5 mmHg. Aorta The aortic root size at the sinus of Valsalva is normal. Left Ventricular Outflow Tract Name Value Normal LVOT 2D LVOT Diameter 2.03 cm Pulmonic Valve
[2022-09-22 03:09] LABS: Glucose Point of Care 229 mg/dl (65-105)
[2022-09-22] MEDS: GABAPENTIN 300 MG CAPSULE PO (06:10)
[2022-09-22] MEDS: FUROSEMIDE INJ 40 MG/4 ML VIAL IV PUSH ×2 (06:10→14:50)
[2022-09-22 06:20] LABS: Basophils Percent Auto 0.7 % (0.2-1.2); Eosinophils Absolute Auto 0.2 K/mm3 (0-0.3); Eosinophils Percent Auto 4.3 % (0-4.4); Hematocrit 28.3 % (37.0-47.0); Hemoglobin 8.7 g/dL (12.0-15.0); Immature Granulocyte Absolute 0.03 K/mm3 (0.00-0.031); Immature Granulocyte Percent A 0.5 % (0-0.5); Lymphocytes Absolute Auto 1.44 K/mm3 (0.9-3.2); Lymphocytes Percent Auto 25.7 % (18.3-44.2); Mean Corpuscular HGB Conc 30.7 g/dl (32-36); Mean Corpuscular Hemoglobin 28.8 pg (26-34); Mean Corpuscular Volume 93.7 fl (80-100); Mean Platelet Volume 10.5 fl (7.4-10.4); Monocytes Absolute Auto 0.6 K/mm3 (0.1-0.6); Monocytes Percent Auto 10.5 % (2.6-8.5); Neutrophils Absolute Auto 3.3 K/mm3 (1.3-6.7); Neutrophils Percent Auto 58.3 % (45.5-73.1); Platelet Count Result 277 k/mm3 (150-375); Red Blood Count 3.02 M/mm3 (4.2-5.4); Red Cell Distribution Width 16.1 % (11.5-14.5); White Blood Count 5.6 K/mm3 (4.5-10.0)
[2022-09-22 06:23] LABS: Potassium 3.4 mmol/L (3.4-5.0)
[2022-09-22 06:38] LABS: Alanine Aminotransferase 11 U/L (6-35); Alkaline Phosphatase 75 U/L (38-126); Anion Gap 6 mmol/L (8-16); Aspartate Amino Transferase 18 U/L (14-36); Bilirubin,Total 0.6 mg/dL (0.2-1.3); Blood Urea Nitrogen 22 mg/dL (7-17); Calcium 7.7 mg/dL (8.4-10.2); Carbon Dioxide 33 mmol/L (22-30); Chloride 95 mmol/L (98-107); Estimated Glomerular Filt Rate 53; Glucose 240 mg/dL (65-110); Sodium 134 mmol/L (137-145)
[2022-09-22 07:39] LABS: Glucose Point of Care 247 mg/dl (65-105)
--- NOTE | 2022-09-22 08:10 | PM.IMPN ---
Progress Note: A&P Assessment and Plan (1) Acute exacerbation of CHF (congestive heart failure): Code(s): I50.9 - Heart failure, unspecified Status: Acute Assessment and Plan: IV diuresis with Lasix 40 mg q.8 hours, now appears improved, will transition back to home po lasix 40 mg BID Appreciate cardiology consultation, repeat echo pending Echo from April 2022 showed an EF of 60-65% with normal diastolic function and mild pulmonary hypertension, no significant valvular abnormality noted but the study was technically difficult (2) Diabetes: Code(s): E11.9 - Type 2 diabetes mellitus without complications Status: Acute Assessment and Plan: Accu-Cheks, sliding scale insulin, continue home long-acting insulin at 30 units daily plus 6 units with meals as well as Januvia 100 mg twice daily, Actos 10 mg twice daily, hold glipizide A1c 9.9 09/22: Uncontrolled, will increase lantus to 35 units daily, FBG 240 (3) Morbidly obese: Code(s): E66.01 - Morbid (severe) obesity due to excess calories Status: Acute Assessment and Plan: Diet and exercise modifications recommended (4) Gastroesophageal reflux disease: Code(s): K21.9 - Gastro-esophageal reflux disease without esophagitis Status: Acute Assessment and Plan: Continue home Pepcid (5) Bipolar disorder: Code(s): F31.9 - Bipolar disorder, unspecified Status: Acute Assessment and Plan: Continue home Xanax (6) COPD (chronic obstructive pulmonary disease): Code(s): J44.9 - Chronic obstructive pulmonary disease, unspecified Status: Acute Assessment and Plan: Currently not on any inhalers at home, no PFTs available, current chest x-ray does not appear hyperinflated, pleural effusions noted Unsure of the veracity of diagnosis Weaned to room air today (7) Sleep apnea: Code(s): G47.30 - Sleep apnea, unspecified Status: Acute Assessment and Plan: Oxygen weaned, will check an ApneaLink tonight Plan DVT prophylaxis with Eliquis GI prophylaxis not indicated Code status full code Subjective Date/time seen: 09/22/22 08:10 Interval history: No overnight events noted. No chest pain or shortness of breath. No nausea, vomiting or diarrhea. No fevers or chills. States she feels much better than when she came in. Review of Systems Review of Systems: 12 point review of systems was assessed and was negative except as noted in the HPI Exam Narrative: General: No acute distress, alert and oriented per baseline HEENT: Atraumatic, normocephalic, mucous membranes moist CV: Regular rate and rhythm, S1, S2 Lungs: Improved air entry, scattered crackles at bases, somewhat diminished Abdomen: Soft, nontender, nondistended Extremities: Normal to inspection, non pitting edema B/L LE Skin: No rashes noted, no lesions or wounds seen Psych: Euthymic, normal affect Objective Data Vital Signs Vital Signs: Vital Signs - 24 hr 09/21/22 08:27 09/21/22 12:00 09/21/22 14:00 Temperature 97.1 F L Pulse Rate 84 80 76 Respiratory Rate 20 Blood Pressure 144/68 H Pulse Oximetry 100 09/21/22 16:00 09/21/22 21:56 09/21/22 19:50 Temperature 97.9 F Pulse Rate 80 88 88 Respiratory Rate 18 Blood Pressure 155/62 H Pulse Oximetry 100 09/22/22 00:00 09/22/22 03:09 09/22/22 05:57 Temperature 97.1 F L Pulse Rate 75 75 75 Respiratory Rate 18 Blood Pressure 108/55 L Pulse Oximetry 95 Intake/Output Intake/Output: Intake & Output 09/19/22 09/20/22 09/21/22 09/22/22 23:59 23:59 23:59 23:59 Intake Total 1722 100 Output Total 1000 Balance 722 100 Meds/Results Medications: Active Medications Generic Name Dose Route Start Last Admin Trade Name Freq PRN Reason Stop Dose Admin Albuterol 2 puff 09/21/22 04:00 Albuterol Sulfate (*Sp) Aerosol 1 Puff INHALATION Q4H PRN
[2022-09-22] MEDS: APIXABAN 5 MG TABLET PO (08:35)
[2022-09-22] MEDS: POTASSIUM CHLORIDE 20 MEQ TABLET.ER 40 MEQ PO (08:35)
[2022-09-22] MEDS: lisinopriL 20 MG TABLET PO (08:35)
[2022-09-22] MEDS: FAMOTIDINE 20 MG TABLET PO (08:35)
[2022-09-22] MEDS: ALPRAZolam (*CRX) 0.5 MG TABLET 1 MG PO ×3 (08:35→17:41)
[2022-09-22] MEDS: FERROUS SULFATE 324 MG TABLET PO ×2 (08:35→17:41)
[2022-09-22] MEDS: glipiZIDE 5 MG TABLET 10 MG PO ×2 (08:35→17:41)
[2022-09-22] MEDS: LORATADINE 10 MG TABLET PO (08:35)
[2022-09-22] MEDS: INSULIN ASPART (*BKC) 100 UNITS/ML 6 UNITS SUB-Q ×3 (08:36→17:41)
[2022-09-22] MEDS: INSULIN ASPART (*BKC) 100 UNITS/ML SUB-Q ×2 (08:36→12:29)
[2022-09-22] MEDS: HYDROCORTISONE 1% 30 GM CREAM 1 APPLIC TOPICAL (08:39)
[2022-09-22] MEDS: METOPROLOL SUCCINATE EXT REL 25 MG TABCR PO (08:39)
[2022-09-22] MEDS: TOLNAFTATE 1% POWDER 45 GM BTL 1 APPLIC TOPICAL (08:46)
--- NOTE | 2022-09-22 11:30 | PM.CNCAR ---
Assessment and Plan Assessment and plan (1) Fluid overload: Code(s): E87.70 - Fluid overload, unspecified Status: Acute Plan This is a 46-year-old woman with a complicated medical history cardiac sevilla she is known to have some sort of bradyarrhythmia for which she has received a pacemaker implant which is being followed by service car driver elsewhere. There has been no other significant documented cardiac pathology in her chart as far as I can tell. She now presents with some edema and dyspnea. History is very difficult if not impossible to obtain a as her mental status is suboptimal at this time. She had an echocardiogram ordered by the hospitalist which is appropriate and has not yet been performed. She is receiving some intravenous furosemide which I think is indicated since she does have some volume overload noted 1st on her chest x-ray. We will follow her with you during this hospital stay and review her echocardiogram once it is performed but at this point there are no other specific cardiac recommendations other than diuresis. Timmy Mcelroy MD [facility] History of Present Illness History of Present Illness Consult date/time: 09/22/22 11:30 Reason For Visit: CHF Narrative: This is a 46-year-old woman I am seeing today at the request of the hospitalist to assist with the management of CHF. The patient does not normally follow with our practice it looks like I have seen her couple of years ago when she was in the hospital here there was concern regarding arrhythmias that were artifactually noted on telemetry. The patient has been in the hospital here with some frequency and follows with a service car driver elsewhere because she has a chronically implanted pacemaker device for reasons that we do not have any information here at [place]. She apparently lives in a skilled care facility and was brought to the hospital at the request of her fiance because of shortness of breath. The patient upon entering room today was sleeping soundly in bed with the head of the bed slightly elevated on room air upon awakening she is very lethargic and difficult to per to obtain any direct history from. She says she has been having more difficulty lately with shortness of breath and some lower extremity edema. No symptoms of significant chest pain. The patient has a history of morbid obesity, diabetes, hypertension, sleep apnea as well as DVT and PE. She also has a history of a chronic pain syndrome including chest pain which was evaluated back in 2019 at [facility] with negative coronary angiograms. She was admitted to the hospital in August of this year with a urinary infection and some abdominal pain looks like she left the hospital against medical advice in the middle of the month. In addition to her previous negative coronary angiograms as mentioned above she has had echocardiograms that have not demonstrated significant cardiac pathology. Once again she is lethargic arousable but very hard to obtain any direct history from. Her chart interestingly claims a multitude of medical allergies all resulting in urticaria. It should also be mention she has a history of illicit drug use with previous cocaine intoxication. Review of Systems Review of Systems: ROS unobtainable: Yes unobtainable due to mental status PMFSH Past Medical History Medical History Anemia Anxiety Arthritis Asthma Bipolar disorder Chronic anticoagulation For history of DVT and PE. Chronic obstructive pulmonary disease Chronic pain syndrome Deep venous thrombosis Depression Eczema Gastroesophageal reflux disease Herniated disc History of MRSA infection Hyperlipidemia Hypertension Insulin dependent diabetes mellitus Historically poorly controlled. Obesity Obstructive sleep apnea Non compliant with treatment. Peripheral neuropathy Pulmonary embolism Seizures Sleep apnea Suicide attempt T11 vertebral fract
[2022-09-22 11:54] LABS: Glucose Point of Care 244 mg/dl (65-105)
[2022-09-22] MEDS: PERFLUTREN LIPID MICROSPHERES 1.5 ML VIAL DILUTED TO 10 ML TOTAL VOLUME IV PUSH (12:30)
[2022-09-22 16:34] LABS: Glucose Point of Care 161 mg/dl (65-105)
--- NOTE | 2022-09-22 19:38 | PC.NURSE ---
Pt has not been completely compliant with medication. Pt would not wake up to take afternoon medication. Pt refused to take potassium this afternoon and spit out the morning dose. Pt educated on importance of taking medication. Will continue to monitor pt.
[2022-09-22 21:06] LABS: Glucose Point of Care 126 mg/dl (65-105)
--- NOTE | 2022-09-22 22:10 | PCRCNOTE ---
Patient refused apnea link. Patient was very agitated.
[2022-09-23] VITALS (7 sets, daily range): BP systolic 128–150; BP diastolic 62–83; PULSE 70–95; RESP 16–20; TEMP 35.9–36.4; O2SAT 95–99
[2022-09-23 07:39] LABS: Basophils Percent Auto 0.3 % (0.2-1.2); Eosinophils Absolute Auto 0.2 K/mm3 (0-0.3); Hematocrit 29.5 % (37.0-47.0); Immature Granulocyte Absolute 0.02 K/mm3 (0.00-0.031); Immature Granulocyte Percent A 0.3 % (0-0.5); Lymphocytes Absolute Auto 1.54 K/mm3 (0.9-3.2); Lymphocytes Percent Auto 23.1 % (18.3-44.2); Mean Corpuscular HGB Conc 30.5 g/dl (32-36); Mean Corpuscular Hemoglobin 28.6 pg (26-34); Mean Corpuscular Volume 93.7 fl (80-100); Mean Platelet Volume 10.2 fl (7.4-10.4); Monocytes Absolute Auto 0.6 K/mm3 (0.1-0.6); Monocytes Percent Auto 8.7 % (2.6-8.5); Neutrophils Absolute Auto 4.3 K/mm3 (1.3-6.7); Neutrophils Percent Auto 64.6 % (45.5-73.1); Platelet Count Result 287 k/mm3 (150-375); Red Blood Count 3.15 M/mm3 (4.2-5.4); Red Cell Distribution Width 16.5 % (11.5-14.5); White Blood Count 6.7 K/mm3 (4.5-10.0)
[2022-09-23 07:50] LABS: Alanine Aminotransferase 11 U/L (6-35); Alkaline Phosphatase 78 U/L (38-126); Anion Gap 1 mmol/L (8-16); Aspartate Amino Transferase 16 U/L (14-36); Bilirubin,Total 0.5 mg/dL (0.2-1.3); Blood Urea Nitrogen 33 mg/dL (7-17); Calcium 7.8 mg/dL (8.4-10.2); Carbon Dioxide 34 mmol/L (22-30); Chloride 94 mmol/L (98-107); Estimated Glomerular Filt Rate 40; Glucose 123 mg/dL (65-110); Potassium 4.2 mmol/L (3.4-5.0); Sodium 129 mmol/L (137-145)
--- NOTE | 2022-09-23 08:17 | PM.DS ---
DS: Admitting Diagnosis Discharge Date 09/23/22 Admitting Diagnosis sob DS: Discharge Diagnosis Discharge Diagnosis (1) Acute exacerbation of CHF (congestive heart failure): Code(s): I50.9 - Heart failure, unspecified Status: Acute Assessment and Plan: IV diuresis with Lasix 40 mg q.8 hours, now appears improved, will transition back to home po lasix 40 mg BID Appreciate cardiology consultation, repeat echo pending Echo from April 2022 showed an EF of 60-65% with normal diastolic function and mild pulmonary hypertension, no significant valvular abnormality noted but the study was technically difficult 09/23: Repeat echo showed EF 60-65% and abnormal diastolic dysfunction, no pulm HTN, no significant valvular abnormalities (2) Diabetes: Code(s): E11.9 - Type 2 diabetes mellitus without complications Status: Acute Assessment and Plan: Accu-Cheks, sliding scale insulin, continue home long-acting insulin at 30 units daily plus 6 units with meals as well as Januvia 100 mg twice daily, Actos 10 mg twice daily, hold glipizide A1c 9.9 09/22: Uncontrolled, will increase lantus to 35 units daily, FBG 240 09/23: BG much better controlled today on lantus 35 units daily, FBG 123 (3) Morbidly obese: Code(s): E66.01 - Morbid (severe) obesity due to excess calories Status: Acute Assessment and Plan: Diet and exercise modifications recommended (4) Gastroesophageal reflux disease: Code(s): K21.9 - Gastro-esophageal reflux disease without esophagitis Status: Acute Assessment and Plan: Continue home Pepcid (5) Bipolar disorder: Code(s): F31.9 - Bipolar disorder, unspecified Status: Acute Assessment and Plan: Continue home Xanax (6) COPD (chronic obstructive pulmonary disease): Code(s): J44.9 - Chronic obstructive pulmonary disease, unspecified Status: Acute Assessment and Plan: Currently not on any inhalers at home, no PFTs available, current chest x-ray does not appear hyperinflated, pleural effusions noted Unsure of the veracity of diagnosis Weaned to room air today (7) Sleep apnea: Code(s): G47.30 - Sleep apnea, unspecified Status: Acute Assessment and Plan: Oxygen weaned, will check an ApneaLink tonight Plan DVT prophylaxis with Eliquis GI prophylaxis not indicated Code status full code DS: Summary Hospital Course Hospital Course: 46-year-old female with past medical history significant for congestive heart failure, type 2 diabetes mellitus, bipolar disorder, chronic obstructive pulmonary disease, chronic pain syndrome, gastroesophageal reflux disease, obstructive sleep apnea.? Patient presents to the emergency room due to worsening bilateral lower extremity edema, abdominal edema, shortness of breath, PND, orthopnea.? Denies chest pain, denies fevers, rigors, chills, no nausea, no vomiting, no abdominal pain, has cough but is nonproductive.? Preliminary workup was significant for brain natriuretic peptide 2940. IV diuresis with Lasix 40 mg q.8 hours, now appears improved, will transition back to home po lasix 40 mg BID and did well. Appreciate cardiology consultation. Echo from April 2022 showed an EF of 60-65% with normal diastolic function and mild pulmonary hypertension, no significant valvular abnormality noted but the study was technically difficult 09/23: Repeat echo showed EF 60-65% and abnormal diastolic dysfunction, no pulm HTN, no significant valvular abnormalities Accu-Cheks, sliding scale insulin, continue home long-acting insulin at 30 units daily plus 6 units with meals as well as Januvia 100 mg twice daily, Actos 10 mg twice daily, hold glipizide, A1c 9.9 09/22: Uncontrolled, will increase lantus to 35 units daily, FBG 240, BG much improved, FBG 126 on lantus 35 units. Patient stable on home meds. Will be d/c today and close outpatient follow up with PCP and car
[2022-09-23 08:19] LABS: Glucose Point of Care 138 mg/dl (65-105)
[2022-09-23] MEDS: lisinopriL 20 MG TABLET PO (09:20)
[2022-09-23] MEDS: METOPROLOL SUCCINATE EXT REL 25 MG TABCR PO (09:21)
[2022-09-23] MEDS: FERROUS SULFATE 324 MG TABLET PO (09:21)
[2022-09-23] MEDS: LORATADINE 10 MG TABLET PO (09:21)
[2022-09-23] MEDS: FAMOTIDINE 20 MG TABLET PO (09:21)
[2022-09-23] MEDS: GABAPENTIN 300 MG CAPSULE PO ×2 (09:21→13:15)
[2022-09-23] MEDS: glipiZIDE 5 MG TABLET 10 MG PO (09:21)
[2022-09-23] MEDS: APIXABAN 5 MG TABLET PO (09:21)
[2022-09-23] MEDS: ALPRAZolam (*CRX) 0.5 MG TABLET 1 MG PO ×2 (09:21→13:15)
[2022-09-23] MEDS: HYDROCORTISONE 1% 30 GM CREAM 1 APPLIC TOPICAL (09:22)
[2022-09-23] MEDS: POTASSIUM CHLORIDE 20 MEQ TABLET.ER 40 MEQ PO (09:25)
[2022-09-23] MEDS: TOLNAFTATE 1% POWDER 45 GM BTL 1 APPLIC TOPICAL (09:27)
[2022-09-23] MEDS: INSULIN ASPART (*BKC) 100 UNITS/ML 6 UNITS SUB-Q ×2 (09:40→13:15)
[2022-09-23] MEDS: SODIUM CHLORIDE 0.9% IV 1,000 ML 250 ML IV CONT (09:42)
--- NOTE | 2022-09-23 10:55 | P.CDI_ITS ---
CDI Query Clarified Diagnosis Clarified Diagnosis: Documented history of CHF. CHF noted on assessment and plan. Elevated BNP on 09/20/22 lab work. Chest Xray from 09/21/22 shows pulmonary vascular congestion/ CHF. Please specify type and acuity of heart failure if known. * Acute * Chronic * Acute on Chronic * Unknown * Systolic * Diastolic * Combined Systolic and Diastolic * Unknown
[2022-09-23 12:04] LABS: Glucose Point of Care 217 mg/dl (65-105)
[2022-09-23 12:57] LABS: Anion Gap 2 mmol/L (8-16); Blood Urea Nitrogen 34 mg/dL (7-17); Carbon Dioxide 36 mmol/L (22-30); Chloride 92 mmol/L (98-107); Estimated Glomerular Filt Rate 40; Glucose 216 mg/dL (65-110); Potassium 4.4 mmol/L (3.4-5.0); Sodium 130 mmol/L (137-145)
[2022-09-23] MEDS: INSULIN ASPART (*BKC) 100 UNITS/ML SUB-Q (13:16)
== END 2022-09-23 17:15 | disposition home or self-care (01) ==
LOC: ANHED 09-21 01:14 → ANH3MEDSUR 09-21 03:43
PROVIDERS: Admitting Provider Internal Medicine; Emergency Provider Emergency Medicine; PCP Internal Medicine; Visit Provider Student in an Organized Health Care Education/Training Program
DX: I11.0 Hypertensive heart disease with heart failure (principal); I50.9 Heart failure, unspecified; E11.9 Type 2 diabetes mellitus without complications; E66.01 Morbid (severe) obesity due to excess calories; K21.9 Gastro-esophageal reflux disease without esophagitis; J44.9 Chronic obstructive pulmonary disease, unspecified; G47.30 Sleep apnea, unspecified; R06.02 Shortness of breath; R60.0 Localized edema; D64.9 Anemia, unspecified; M19.90 Unspecified osteoarthritis, unspecified site; J45.909 Unspecified asthma, uncomplicated; F31.9 Bipolar disorder, unspecified; R41.9 Unspecified symptoms and signs involving cognitive functions and awareness; Z95.0 Presence of cardiac pacemaker; G89.4 Chronic pain syndrome; R19.00 Intra-abdominal and pelvic swelling, mass and lump, unspecified site; Z68.42 Body mass index [BMI] 45.0-49.9, adult; E87.70 Fluid overload, unspecified; E78.5 Hyperlipidemia, unspecified; Z86.718 Personal history of other venous thrombosis and embolism; Z87.891 Personal history of nicotine dependence; Z79.4 Long term (current) use of insulin; Z79.51 Long term (current) use of inhaled steroids; Z79.01 Long term (current) use of anticoagulants; Z79.84 Long term (current) use of oral hypoglycemic drugs; Z79.891 Long term (current) use of opiate analgesic; Z79.899 Other long term (current) drug therapy; Z82.49 Family history of ischemic heart disease and other diseases of the circulatory system
CPT/HCPCS: 36415; 71046; 80048; 80053; 81001; 82948; 83036; 83880; 84484; 85025; 85610; 85730; 93005; 96374; 96375; 96376; 97161; 97165; 99285; A9270; C8929; G0378; G0379; J1815; J1940; J7030; Q9957

== ENCOUNTER 2022-10-15 10:09 | Inpatient (IN) | payer OTHER, SELFPAY ==
[2022-10-15] VITALS (35 sets, daily range): BP systolic 120–169; BP diastolic 42–141; PULSE 78–98; RESP 6–20; TEMP 37–37.1; O2SAT 92–100; BMI 53.4
--- NOTE | ~2022-10-15 | XR_ITS ---
Portable chest x-ray Comparison: 10/15/2022 Clinical History: Weakness, somnolent Findings: Lungs are clear, without focal consolidation or pleural effusion. Cardiomediastinal silho uette is stable, with pacemaker device. Bones and soft tissues are unremarkable. Impression: Clear lungs. Reviewed, dictated and finalized at location . Impression: Clear lungs.
--- NOTE | ~2022-10-15 | XR_ITS ---
EXAMINATION: XR chest 1V portable DATE: 10/15/2022 12:14 INDICATION: Chest pain. TECHNIQUE: A single frontal view of the chest was obtained. COMPARISON: Chest 2 views 09/20/2022, CT abdomen and pelvis 08/12/2022 FINDINGS: Sensitivity is decreased by obesity. There are mild airspace opacities in the perihilar reg ions. There is a small right pleural effusion. No pneumothorax. Cardiomegaly is noted. There is a lef t chest wall pacer with leads in the right atrium and right ventricle. IMPRESSION: 1. Mild airspace opacities in the perihilar regions, consistent with atelectasis versus mild pulmonar y edema. 2. Small right pleural effusion. 3. Cardiomegaly. Reviewed, dictated and finalized at location A. GE MANAGEMENT SPECIALIST IMPRESSION: 1. Mild airspace opacities in the perihilar regions, consistent with atelectasi s versus mild pulmonary edema. 2. Small right pleural effusion. 3. Cardiomegaly.
--- NOTE | ~2022-10-15 | US_ITS ---
EXAMINATION: US retroperitoneal limited DATE: 10/20/2022 15:51 INDICATION: renal failure TECHNIQUE: Multiple grayscale and Doppler ultrasound images of limited portions of the retroperitoneu m were obtained. COMPARISON: CT CAP 10/20/2022. FINDINGS: The right kidney measures 11.7 x 5.3 x 6.4 cm. The left kidney measures 13.2 x 6.1 x 6.9 cm. The kidn eys demonstrate normal parenchymal echogenicity. There is mild right hydronephrosis. The bladder is d ecompressed by Jenkins catheter and therefore not well evaluated. IMPRESSION: Mild right hydronephrosis. Reviewed, dictated and finalized at location K. IMPRESSION: Mild right hydronephrosis.
--- NOTE | ~2022-10-15 | CT_ITS ---
EXAMINATION: CT chest abdomen pelvis wo con DATE: 10/15/2022 13:53 INDICATION: Chest pain, abdominal pain, generalized soft tissue swelling TECHNIQUE: Computed tomography (CT) of the chest, abdomen, and pelvis was performed without intraveno us contrast. Automated exposure control and iterative reconstruction technique were employed. Exam do se: 1748.65 mGy-cm total exam DLP. COMPARISON: 10/15/2022 portable AP chest 09/20/2022 PA and lateral chest 08/12/2022 CT abdomen pelvis FINDINGS: There is morbid obesity. CHEST CT: Left-sided transvenous pacemaker device with leads in right atrium and right ventricle. Cardiomegaly. Trace pericardial effusion. No thoracic aortic aneurysm. No hilar or mediastinal mass lesion or lymp hadenopathy is evident on this limited noncontrast examination. Small bilateral pleural effusions. Mild bilateral patchy groundglass pulmonary opacities densities, possibly due to small airways diseas e, atelectasis or pulmonary edema. Mild discoid atelectasis or scarring at the base of the left lower lobe. There is edema of the chest wall. There is asymmetric soft tissue density of the left breast and asym metric thickening of the skin of the left breast. Diagnostic mammography is recommended; no record of mammograms is found here on PACS. ABDOMEN/PELVIS CT: Status post cholecystectomy. No hepatic, splenic, pancreatic, and adrenal or renal space-occupying ma ss lesion is detected. No bile duct or pancreatic duct dilatation. No urinary tract calculus or hydro ureteronephrosis is detected. The urinary bladder is prominently distended but otherwise unremarkable . Uterus and adnexal areas are unremarkable. Normal caliber of the abdominal aorta. No intraperitoneal or retroperitoneal or pelvic mass lesion or adenopathy or ascites is noted. Normal appendix. No bowel obstruction or intraperitoneal free air. Diffuse idiopathic skeletal hyperostosis of the thoracic spine. Mild degenerative changes of the lumb ar spine. Bilateral hip osteoarthritis. No suspicious osteolytic or osteoblastic lesions are noted. IMPRESSION: Cardiomegaly, edema of the chest, abdominal and pelvic [place], mild bilateral pleural eff usions and small pericardial effusion. Findings suggest congestive heart failure Asymmetric soft tissue density and skin thickening of the left breast. No indication of prior mammogr ams is evident on PACS. Mammography is recommended when patient condition permits Reviewed, dictated and finalized at Location A. Reviewed, dictated and finalized at location B. LIBRARY DIRECTOR IMPRESSION: Cardiomegaly, edema of the chest, abdominal and pelvic cam[place], mild bilateral pleural effusions and small pericardial effusion. Findings suggest c ongestive heart failure Asymmetric soft tissue density and skin thickening of the left breast. No indic ation of prior mammograms is evident on PACS. Mammography is recommended when p atient condition permits
--- NOTE | ~2022-10-15 | US_ITS ---
EXAMINATION: US venous doppler [facility] DATE: 10/16/2022 17:19 INDICATION: Lower limb pain and swelling TECHNIQUE: Grayscale ultrasound images without and with compression and Doppler ultrasound images of the bilateral lower extremity veins were obtained. COMPARISON: None. FINDINGS: The visualized portions of right common femoral vein, profunda (deep) femoral vein, femoral vein, pop liteal vein, posterior tibial veins, peroneal veins, gastrocnemius vein and greater saphenous vein ou tflow are patent. The visualized portions of left common femoral vein, profunda femoral vein, femoral vein, popliteal v ein, gastrocnemius vein and greater saphenous vein outflow are patent. The left posterior tibial and peroneal veins are unable to be visualized due to patient body habitus and shadowing from subcutaneou s edema at the left calf. IMPRESSION: 1. No deep venous thrombosis in either lower limb. The veins at the left calf were however unable to be visualized. Reviewed, dictated and finalized at location A. VISION CAMERAMAN
--- NOTE | ~2022-10-15 | XR_ITS ---
EXAMINATION: XR chest port-a-cath/central DATE: 10/23/2022 14:07 INDICATION: Central line placement. TECHNIQUE: A single frontal view of the chest was obtained. COMPARISON: Chest single view 10/21/2022, chest CT 10/15/2022 FINDINGS: There is no pneumonia, pleural effusion, of pneumothorax. Cardiomegaly is noted. Surgical c lips in the right upper quadrant are likely from cholecystectomy. There is a left chest wall pacer wi th leads in the right atrium and right ventricle. A right internal jugular central venous catheter is seen with tip in the right atrium. IMPRESSION: 1. Central line tip in right atrium. 2. Cardiomegaly. Reviewed, dictated and finalized at location A.
--- NOTE | 2022-10-15 10:18 | ECG_ITS ---
Measurements Intervals [place] Rate: 90 P: 42 NV: 169 QRS: 41 QRSD: 69 T: 7 QT: 348 QTc: 426 Interpretive Statements SINUS RHYTHM LOW QRS VOLTAGE IN PRECORDIAL LEADS ANTEROSEPTAL INFARCT, AGE INDETERMINATE BASELINE ARTIFACT- I, II, III, AVR, AVL, AVF, V1-V2 ABNORMAL ECG MYOCARDIAL INFARCT FINDING NOW PRESENT Electronically Signed On 10-15-2022 10:45:53 [employer]OR [employer] by Kalin Castorena D.O.
[2022-10-15 10:45] LABS: Basophils Percent Auto 0.7 % (0.2-1.2); Eosinophils Absolute Auto 0.4 K/mm3 (0-0.3); Eosinophils Percent Auto 6.6 % (0-4.4); Hematocrit 30.1 % (37.0-47.0); Hemoglobin 9.1 g/dL (12.0-15.0); Immature Granulocyte Absolute 0.01 K/mm3 (0.00-0.031); Immature Granulocyte Percent A 0.2 % (0-0.5); Lymphocytes Absolute Auto 0.99 K/mm3 (0.9-3.2); Lymphocytes Percent Auto 16.7 % (18.3-44.2); Mean Corpuscular HGB Conc 30.2 g/dl (32-36); Mean Corpuscular Hemoglobin 28.4 pg (26-34); Mean Corpuscular Volume 94.1 fl (80-100); Mean Platelet Volume 9.3 fl (7.4-10.4); Monocytes Absolute Auto 0.5 K/mm3 (0.1-0.6); Monocytes Percent Auto 8.4 % (2.6-8.5); Neutrophils Percent Auto 67.4 % (45.5-73.1); Platelet Count Result 297 k/mm3 (150-375); Red Cell Distribution Width 15.1 % (11.5-14.5); White Blood Count 5.9 K/mm3 (4.5-10.0)
[2022-10-15 10:53] LABS: Alanine Aminotransferase 23 U/L (6-35); Albumin Level 3.6 g/dL (3.5-5.1); Alkaline Phosphatase 118 U/L (38-126); Anion Gap 5 mmol/L (8-16); Aspartate Amino Transferase 27 U/L (14-36); Bilirubin,Total 0.5 mg/dL (0.2-1.3); Blood Urea Nitrogen 43 mg/dL (7-17); Calcium 8.6 mg/dL (8.4-10.2); Carbon Dioxide 36 mmol/L (22-30); Chloride 103 mmol/L (98-107); Estimated Glomerular Filt Rate > 60; Glucose 129 mg/dL (65-110); Lipase 147 U/L (23-300); Potassium 3.9 mmol/L (3.4-5.0); Sodium 144 mmol/L (137-145)
--- NOTE | 2022-10-15 11:29 | ED.ABDPAIN ---
HPI - Abdominal Pain General Chief Complaint: Abdominal Pain Stated Complaint: pain all over Time Seen by Provider: 10/15/22 11:29 Source: patient and EMS Mode of arrival: EMS Limitations: no limitations History of Present Illness HPI narrative: Patient is 46 years old white female came to the ED by ambulance complaining of swelling all over from congestive heart failure complication. Patient was discharged from [facility] yesterday with congestive heart failure. She denies any fever, chills, nausea, vomiting, shortness of breath. She reports having pain all over her body mainly chest and abdomen for the last 4 days. Related Data Home Medications Medication Instructions Recorded Confirmed atorvastatin 20 mg tablet 20 mg PO HS 08/21/19 09/21/22 furosemide 20 mg tablet 40 mg PO BID 01/18/22 09/21/22 albuterol sulfate 90 mcg/actuation 2 puff inhalation Q4H PRN 04/22/22 09/21/22 aerosol inhaler Shortness Of Breath alprazolam 0.5 mg tablet 1 mg PO TID 04/22/22 09/21/22 docusate sodium 100 mg capsule 100 mg PO DAILY PRN Constipation 04/22/22 09/21/22 famotidine 20 mg tablet (Pepcid) 20 mg PO DAILY 04/22/22 09/21/22 lisinopril 20 mg tablet 20 mg PO DAILY 04/22/22 09/21/22 loratadine 10 mg tablet 10 mg PO DAILY 04/22/22 09/21/22 melatonin 5 mg tablet 10 mg PO HS 04/22/22 09/21/22 methocarbamol 750 mg tablet 750 mg PO Q8H PRN Muscle Pain 04/22/22 09/21/22 metoprolol tartrate 25 mg tablet 15 mg PO BID 04/22/22 09/21/22 promethazine 25 mg tablet 25 mg PO TID PRN Nausea 08/10/22 09/21/22 apixaban 5 mg tablet (Eliquis) 5 mg PO DAILY 09/21/22 09/21/22 gabapentin 300 mg capsule 300 mg PO TID 09/21/22 09/21/22 glipizide 10 mg tablet 10 mg PO BID 09/21/22 09/21/22 insulin lispro 100 unit/mL 6 unit subcut TIDWMEAL 09/21/22 09/21/22 subcutaneous cartridge (Humalog U-100 Insulin) pioglitazone 30 mg tablet (Actos) 10 mg PO BID 09/21/22 09/21/22 polyethylene glycol 3350 17 gram 17 g PO QAM PRN Constipation 09/21/22 09/21/22 oral powder packet (Miralax) sitagliptin phosphate 100 mg 100 mg PO BID 09/21/22 09/21/22 tablet (Januvia) tramadol 50 mg tablet 50 mg PO Q6H PRN Pain 09/21/22 09/21/22 Allergies Allergy/AdvReac Type Severity Reaction Status Date / Time lidocaine Allergy Intermediate HIVES Verified 09/21/22 03:12 nitroglycerin Allergy Intermediate HIVES Verified 09/21/22 03:12 aspirin Allergy Mild Hives Verified 09/21/22 03:12 citalopram Allergy Mild Rash Verified 09/21/22 03:12 escitalopram Allergy Mild Hives Verified 09/21/22 03:12 ibuprofen Allergy Mild Hives Verified 09/21/22 03:12 Penicillins Allergy Mild HIVES PER Verified 09/21/22 03:12 UNCODED ALLERGIES 08/27/12 procaine Allergy Mild Hives Verified 09/21/22 03:12 propoxyphene Allergy Mild Hives Verified 09/21/22 03:12 doxycycline Allergy Unknown Hives Verified 09/21/22 03:12 meloxicam Allergy Unknown HIVES Verified 09/21/22 03:12 Sulfa (Sulfonamide Allergy Unknown HIVES PER Verified 09/21/22 03:12 Antibiotics) UNCODED ALLERGIES 08/27/12 sulfamethoxazole Allergy Unknown Hives Verified 09/21/22 03:12 trimethoprim Allergy Unknown Hives Verified 09/21/22 03:12 codeine Allergy Hives Verified 09/21/22 03:12 iohexol Allergy Hives Verified 09/21/22 03:12 [From contrast - CT, X-RAY] adhesive AdvReac Unknown SILK TAPE= Verified 09/21/22 03:12 HIVES imipenem AdvReac Itching Verified 09/21/22 03:12 Review of Systems Review of Systems: All systems reviewed & are unremarkable except as noted in HPI and below PMFSH Past Medical History Medical History Anemia Anxiety Arthritis Asthma Bipolar disorder Chronic anticoagulation For history of DVT and PE. Chronic obstructive pulmonary disease Chronic pain syndrome Deep venous thrombosis Depression Eczema Gastroesophageal reflux disease Herniated disc History of MRSA infection Hyperlipidemia Hypertension Insulin dependent diabetes
[2022-10-15] MEDS: ONDANSETRON INJ 4 MG/2 ML VIAL IV PUSH (12:07)
[2022-10-15] MEDS: SODIUM CHLORIDE 0.9% IV 1,000 ML 999 ML IV CONT (12:07)
[2022-10-15 12:15] LABS: INR 1.3; Partial Thromboplastin Time 29.2 SECONDS (22.3-36.8); Prothrombin Time 15.6 Seconds (11.1-14.7)
[2022-10-15 12:27] LABS: NT Pro B Type Natriuretic Pept 1590 pg/mL (19.9-100); Troponin I < 0.012 ng/mL (0.000-0.034)
[2022-10-15 12:56] LABS: Appearance Urine Clear (Clear); Bacteria Urine None Seen /hpf; Bilirubin Urine Negative (Negative); Blood Urine 1+ (Negative); Color Urine Yellow (Yellow); Glucose Urine UA Negative (Negative); Hyaline Casts Urine Present /lpf; Ketones Urine Negative (Negative); Leukocyte Esterase Ur Negative LEU/UL (Negative); Nitrate Urine Negative (Negative); Protein Urine 3+ mg/dL (Negative); Specific Grav Ur 1.015 (1.001-1.035); Squamous Epithelial Cell Urine Few /hpf (Few); Urobilinogen Urine 0.2 mg/dL (<2.0); WBC Urine 0-5 /hpf; pH Urine 5.5 (5.0-9.0)
[2022-10-15 13:02] LABS: Add Urine Microscopic? YES
[2022-10-15] MEDS: FUROSEMIDE INJ 100 MG/10 ML VIAL 60 MG IV PUSH (13:10)
[2022-10-15 13:15] LABS: Glucose Point of Care 128 mg/dl (65-105)
[2022-10-15 13:32] LABS: Pregnancy On Board Control Positive; Urine Pregnancy Test Negative
--- NOTE | 2022-10-15 16:22 | PM.IMHP ---
H&P: HPI History of Present Illness Date/Time: 10/15/22 16:22 Chief Complaint: Abdominal pain Narrative: This is a 46-year-old female patient who has a history of CHF. The patient has edema to her abdomen her hands and lower extremities. The patient was discharged from [facility] yesterday with congestive heart failure.She previously was discharged from here on 09/23/2022 due to CHF as well. Her echo from 09/22/2022 was read as the following 1. Technically suboptimal study due to poor sonographic images. ? 2. Definity contrast administered improved wall motion interpretation. ? 3. Left ventricular chamber dimension is normal. ? 4. Left ventricular systolic function is normal, estimated at 60-65%. ? 5. There is mild concentric increased left ventricular wall thickness. ? 6. The left ventricular diastolic function is abnormal. ? 7. E/e' 19 is elevated. ? 8. There is mild aortic valve sclerosis. ? 9. The mitral valve has mildly calcified annulus. ? 10. No pulmonary hypertension, estimated pulmonary arterial systolic pressure is 27 mmHg. ? 11. There is trivial pericardial effusion. Her chest abdomen pelvis CT today was read as Cardiomegaly, edema of the chest, abdominal and pelvic [place], mild bilateral pleural effusions and small pericardial effusion. Findings suggest congestive heart failure Asymmetric soft tissue density and skin thickening of the left breast. No indication of prior mammograms is evident on PACS. Mammography is recommended when patient condition permits The patient was given Ativan, Zofran, and Tylenol in the emergency room. She was also given IV Lasix in the emergency room. The patient is being admitted to observation status on the date of service of 10/15/2022. Review of Systems Review of Systems: See HPI All systems reviewed & are unremarkable except as noted in HPI and below Constitutional: Constitutional: Reports as per HPI and Reports no additional constitutional complaints Eyes: Eyes: Reports as per HPI and Reports no additional eye complaints ENT: Reports system reviewed and no additional complaints, except as documented and Reports Normal hearing present Cardiovascular: Cardiovascular: Reports no additional cardiovascular complaints Respiratory: Respiratory: Reports no additional respiratory complaints and Reports no additional respiratory complaints Gastrointestinal: Gastrointestinal: Reports as per HPI and Reports no additional gastrointestinal complaints Musculoskeletal: Musculoskeletal: Reports no additional musculoskeletal complaints Integumentary/Breasts: Skin/Breast: Reports system reviewed and no additional complaints, except as docu and Reports as per HPI Neurologic: Reports system reviewed and no additional complaints, except as documented, Reports as per HPI and Reports Normal hearing present Psychiatric: Psychiatric: Reports no additional psychiatric complaints and Reports as per HPI Endocrine: Endocrine: Reports no additional endocrine complaints Hematologic/Lymphatic: Hematologic/Lymphatic: Reports no additional hematologic/lymphatic complaints Allergic/Immunologic: Allergic/Immunologic: Reports no additional allergic/immunologic complaints [facility] Past Medical History Medical History (Updated 10/15/22 @ 23:04 by Misty Holman NP) Anemia Anxiety Arthritis Asthma Bipolar disorder Chronic anticoagulation For history of DVT and PE. Chronic obstructive pulmonary disease Chronic pain syndrome Deep venous thrombosis Depression Eczema Gastroesophageal reflux disease Herniated disc History of DVT (deep vein thrombosis) History of MRSA infection History of seizures Hyperlipidemia Hypertension Insulin dependent diabetes mellitus Historically poorly controlled. Obesity Obstructive sleep apnea Non compliant with treatment. Peripheral neuropathy Pulmonary embolism Seizures Sleep apnea Suicide attempt T11 vertebral fracture Nondisplaced fracture of the right T11 inferi
[2022-10-15] MEDS: LORazepam INJ (*CRX) 2 MG/ML VIAL 0.5 MG IV PUSH (16:41)
--- NOTE | 2022-10-15 17:54 | ADMGEN ---
This patient, Valerie Nguyen, was admitted to Medical Room 340-01. Patient/family oriented to hospital policies and general routines including ID bracelet, bed and alarms, visiting hours, pain management, procedures, bathroom and other care routines, personal items, smoking policy, room service/diet, and visiting hours. Information on how to activate the Rapid Response Team has been discussed. Patient/Family are encouraged to report perceived risks to care and to ask questions if they do not understand what they are told or what they should do.
[2022-10-15] MEDS: FUROSEMIDE INJ 40 MG/4 ML VIAL IV PUSH (20:03)
[2022-10-15 21:32] LABS: Glucose Point of Care 332 mg/dl (65-105)
[2022-10-15] MEDS: METOPROLOL TARTRATE 25 MG TABLET PO (23:35)
[2022-10-15] MEDS: levETIRAcetam 500 MG TABLET PO (23:35)
[2022-10-15] MEDS: APIXABAN 5 MG TABLET PO (23:35)
[2022-10-15] MEDS: traMADol HCL (*CRX) 50 MG TABLET PO (23:35)
[2022-10-15] MEDS: MELATONIN 5 MG TABLET 10 MG PO (23:36)
[2022-10-15] MEDS: ATORVASTATIN 20 MG TABLET PO (23:36)
[2022-10-15] MEDS: methocarbamoL 750 MG TABLET PO (23:36)
[2022-10-15] MEDS: INSULIN GLARGINE (*BKC) 100 UNITS/ML 40 UNITS SUB-Q (23:40)
[2022-10-16] VITALS (10 sets, daily range): BP systolic 130–150; BP diastolic 63–76; PULSE 68–86; RESP 16–20; TEMP 36.6–36.9; O2SAT 96–100
[2022-10-16 06:23] LABS: Basophils Percent Auto 0.9 % (0.2-1.2); Eosinophils Absolute Auto 0.3 K/mm3 (0-0.3); Eosinophils Percent Auto 7.1 % (0-4.4); Hematocrit 26.1 % (37.0-47.0); Hemoglobin 7.6 g/dL (12.0-15.0); Immature Granulocyte Absolute 0.02 K/mm3 (0.00-0.031); Immature Granulocyte Percent A 0.4 % (0-0.5); Lymphocytes Absolute Auto 1.05 K/mm3 (0.9-3.2); Lymphocytes Percent Auto 23.3 % (18.3-44.2); Mean Corpuscular HGB Conc 29.1 g/dl (32-36); Mean Corpuscular Hemoglobin 27.9 pg (26-34); Mean Platelet Volume 9.4 fl (7.4-10.4); Monocytes Absolute Auto 0.5 K/mm3 (0.1-0.6); Neutrophils Absolute Auto 2.6 K/mm3 (1.3-6.7); Neutrophils Percent Auto 58.3 % (45.5-73.1); Platelet Count Result 237 k/mm3 (150-375); Red Blood Count 2.72 M/mm3 (4.2-5.4); Red Cell Distribution Width 15.3 % (11.5-14.5); White Blood Count 4.5 K/mm3 (4.5-10.0)
[2022-10-16 06:37] LABS: Lactic Acid Reflex 0.8 mmol/L (0.7-2.0)
[2022-10-16 06:39] LABS: Alanine Aminotransferase 21 U/L (6-35); Albumin Level 3.4 g/dL (3.5-5.1); Alkaline Phosphatase 97 U/L (38-126); Anion Gap 1 mmol/L (8-16); Aspartate Amino Transferase 27 U/L (14-36); Bilirubin,Total 0.5 mg/dL (0.2-1.3); Blood Urea Nitrogen 39 mg/dL (7-17); Calcium 8.6 mg/dL (8.4-10.2); Carbon Dioxide 36 mmol/L (22-30); Chloride 101 mmol/L (98-107); Estimated Glomerular Filt Rate 48; Glucose 159 mg/dL (65-110); Lipase 72 U/L (23-300); Magnesium 2.3 mg/dL (1.6-2.3); Phosphorus 4.1 mg/dL (2.5-4.5); Potassium 3.9 mmol/L (3.4-5.0); Sodium 138 mmol/L (137-145)
[2022-10-16 08:06] LABS: Anisocytosis 1+ (NORMAL); Platelet Estimate Adequate (Adequate)
[2022-10-16 08:07] LABS: Hypochromasia 3+ (NORMAL); Schistocytes None Seen (NORMAL)
[2022-10-16 08:22] LABS: Hemoglobin A1C 8.5 % (<5.7)
[2022-10-16 08:30] LABS: Glucose Point of Care 102 mg/dl (65-105)
[2022-10-16] MEDS: FERROUS SULFATE 324 MG TABLET PO ×2 (09:39→18:07)
[2022-10-16] MEDS: FUROSEMIDE INJ 40 MG/4 ML VIAL IV PUSH ×2 (09:39→20:45)
[2022-10-16] MEDS: LORATADINE 10 MG TABLET PO (09:39)
[2022-10-16] MEDS: TOLNAFTATE 1% POWDER 45 GM BTL 1 APPLIC TOPICAL (09:39)
[2022-10-16] MEDS: ALPRAZolam (*CRX) 0.5 MG TABLET 1 MG PO ×3 (09:39→18:07)
[2022-10-16] MEDS: APIXABAN 5 MG TABLET PO ×2 (09:39→20:47)
[2022-10-16] MEDS: lisinopriL 20 MG TABLET PO (09:39)
[2022-10-16] MEDS: GABAPENTIN 300 MG CAPSULE PO ×3 (09:39→18:07)
[2022-10-16] MEDS: FAMOTIDINE 20 MG/2 ML VIAL IV PUSH ×2 (09:39→20:45)
[2022-10-16] MEDS: levETIRAcetam 500 MG TABLET PO ×2 (09:40→20:47)
[2022-10-16] MEDS: METOPROLOL TARTRATE 25 MG TABLET PO ×2 (09:40→20:46)
--- NOTE | 2022-10-16 12:00 | PC.NURSE ---
Radiology called. recommending that pt do a complete workup outpatient for her left breast including mammogram. They are canceling the left breast ultrasound for now. I made them aware that she would more than likely not follow up out patient as she is unable to walk at this time. Radiologist aware. Still recommending outpatient work up.
--- NOTE | 2022-10-16 12:30 | PC.NURSE ---
Pt refusing to let us take her blood sugar. Pt states that she is not a guinea pig I informed the patient that she has diabetes and that blood sugar checks are an important part of maintaining her health. Education provided on how we check them before each meal and at bedtime and I asked her if she checks them at home like she should be. Pt states oh here we go again with the preaching . Pt unwilling to listen to anything else this nurse was trying to tell her. Pt yelling and finally said that we could check her blood sugar but to hurry the hell up with it.
[2022-10-16 12:46] LABS: Glucose Point of Care 134 mg/dl (65-105)
--- NOTE | 2022-10-16 14:30 | PC.NURSE ---
Pt tele leads changed. Monitor not appropriately picking up reading. Pt screamed at nurse to leave her alone.
--- NOTE | 2022-10-16 14:41 | PM.IMPN ---
Progress Note: A&P Assessment and Plan (1) CHF (congestive heart failure): Code(s): I50.9 - Heart failure, unspecified Status: Acute Assessment and Plan: Started on IV Lasix 40 b.i.d. Echo from . Technically suboptimal study due to poor sonographic images. ? 2. Definity contrast administered improved wall motion interpretation. ? 3. Left ventricular chamber dimension is normal. ? 4. Left ventricular systolic function is normal, estimated at 60-65%. ? 5. There is mild concentric increased left ventricular wall thickness. ? 6. The left ventricular diastolic function is abnormal. ? 7. E/e' 19 is elevated. ? 8. There is mild aortic valve sclerosis. ? 9. The mitral valve has mildly calcified annulus. ? 10. No pulmonary hypertension, estimated pulmonary arterial systolic pressure is 27 mmHg. ? 11. There is trivial pericardial effusion. Continue lisinopril Continue with metoprolol (2) Diabetes: Code(s): E11.9 - Type 2 diabetes mellitus without complications Status: Acute Assessment and Plan: Accu-Cheks AC and HS with sliding scale insulin and hypoglycemic protocol Continue with Januvia Continue with Lantus Continue with glipizide (3) Hyperlipidemia: Code(s): E78.5 - Hyperlipidemia, unspecified Status: Acute Assessment and Plan: Continue with atorvastatin (4) Obstructive sleep apnea: Code(s): G47.33 - Obstructive sleep apnea (adult) (pediatric) Status: Acute Assessment and Plan: The patient is noncompliant with her CPAP (5) Gastroesophageal reflux disease: Code(s): K21.9 - Gastro-esophageal reflux disease without esophagitis Status: Acute Assessment and Plan: IV Pepcid (6) Bipolar disorder: Code(s): F31.9 - Bipolar disorder, unspecified Status: Acute Assessment and Plan: Continue with alprazolam (7) Anxiety: Code(s): F41.9 - Anxiety disorder, unspecified Status: Chronic Assessment and Plan: Continue with alprazolam Plan Abnormal growth to her left breast needs outpatient mammogram and ultrasound. Anemia drop today with no obvious bleeding.: Recheck in a.m.. Chronic anemia baseline hemoglobin between 8-9 Status post pacemaker implantation DVT prophylaxis on Eliquis Peripheral neuropathy on gabapentin Subjective Date/time seen: 10/16/22 14:41 Interval history: This is a 46-year-old female patient who has a history of CHF.? The patient has edema to her abdomen her hands and lower extremities.? The patient was discharged from [facility] yesterday with congestive heart failure.She??previously was discharged from here on 09/23/2022 due to CHF as well. ? Her echo from 09/22/2022 was read as the following?1. Technically suboptimal study due to poor sonographic images. ? 2. Definity contrast administered improved wall motion interpretation. ? 3. Left ventricular chamber dimension is normal. ? 4. Left ventricular systolic function is normal, estimated at 60-65%. ? 5. There is mild concentric increased left ventricular wall thickness. ? 6. The left ventricular diastolic function is abnormal. ? 7. E/e' 19 is elevated. ? 8. There is mild aortic valve sclerosis. ? 9. The mitral valve has mildly calcified annulus. ? 10. No pulmonary hypertension, estimated pulmonary arterial systolic pressure is 27 mmHg. ? 11. There is trivial pericardial effusion.? Her chest abdomen pelvis CT today was read as Cardiomegaly, edema of the chest, abdominal and pelvic [place], mild bilateral pleural effusions and small pericardial effusion. Findings suggest congestive heart failure Asymmetric soft tissue density and skin thickening of the left breast. No indication of prior mammograms is evident on PACS. Mammography is recommended when patient condition permits The patient was given Ativan, Zofran, and Tylenol in the emergency room.? She was also given IV Lasix in the emergency room.? The patient is being admitted to ob
[2022-10-16 17:19] LABS: Glucose Point of Care 115 mg/dl (65-105)
[2022-10-16] MEDS: LORazepam INJ (*CRX) 2 MG/ML VIAL 0.5 MG IV PUSH (20:45)
[2022-10-16] MEDS: traMADol HCL (*CRX) 50 MG TABLET PO (20:46)
[2022-10-16] MEDS: MELATONIN 5 MG TABLET 10 MG PO (20:46)
[2022-10-16] MEDS: ATORVASTATIN 20 MG TABLET PO (20:47)
[2022-10-16] MEDS: INSULIN GLARGINE (*BKC) 100 UNITS/ML 40 UNITS SUB-Q (20:53)
[2022-10-16 21:06] LABS: Glucose Point of Care 149 mg/dl (65-105)
[2022-10-17] VITALS (7 sets, daily range): BP systolic 143–151; BP diastolic 63–85; PULSE 68–74; RESP 18–22; TEMP 36.6–36.8; O2SAT 95–99
[2022-10-17 08:31] LABS: Glucose Point of Care 55 mg/dl (65-105)
[2022-10-17] MEDS: methocarbamoL 750 MG TABLET PO (08:36)
[2022-10-17] MEDS: GABAPENTIN 300 MG CAPSULE PO ×3 (08:37→17:12)
[2022-10-17] MEDS: ALPRAZolam (*CRX) 0.5 MG TABLET 1 MG PO ×3 (08:37→17:13)
[2022-10-17] MEDS: FERROUS SULFATE 324 MG TABLET PO ×2 (08:37→17:12)
[2022-10-17] MEDS: APIXABAN 5 MG TABLET PO ×2 (08:37→20:17)
[2022-10-17] MEDS: METOPROLOL TARTRATE 25 MG TABLET PO ×2 (08:37→20:17)
[2022-10-17] MEDS: lisinopriL 20 MG TABLET PO (08:38)
[2022-10-17] MEDS: LORATADINE 10 MG TABLET PO (08:38)
[2022-10-17] MEDS: FAMOTIDINE 20 MG/2 ML VIAL IV PUSH ×2 (08:39→20:17)
[2022-10-17] MEDS: TOLNAFTATE 1% POWDER 45 GM BTL 1 APPLIC TOPICAL ×2 (08:39→20:16)
[2022-10-17] MEDS: FUROSEMIDE INJ 40 MG/4 ML VIAL IV PUSH ×2 (08:39→20:17)
[2022-10-17 08:43] LABS: Basophils Percent Auto 0.8 % (0.2-1.2); Eosinophils Absolute Auto 0.4 K/mm3 (0-0.3); Eosinophils Percent Auto 10.7 % (0-4.4); Hematocrit 28.8 % (37.0-47.0); Hemoglobin 8.7 g/dL (12.0-15.0); Immature Granulocyte Absolute 0.01 K/mm3 (0.00-0.031); Immature Granulocyte Percent A 0.3 % (0-0.5); Lymphocytes Absolute Auto 1.14 K/mm3 (0.9-3.2); Mean Corpuscular HGB Conc 30.2 g/dl (32-36); Mean Corpuscular Hemoglobin 28.4 pg (26-34); Mean Corpuscular Volume 94.1 fl (80-100); Mean Platelet Volume 9.5 fl (7.4-10.4); Monocytes Absolute Auto 0.4 K/mm3 (0.1-0.6); Monocytes Percent Auto 11.5 % (2.6-8.5); Neutrophils Absolute Auto 1.6 K/mm3 (1.3-6.7); Neutrophils Percent Auto 44.7 % (45.5-73.1); Platelet Count Result 243 k/mm3 (150-375); Red Blood Count 3.06 M/mm3 (4.2-5.4); Red Cell Distribution Width 15.1 % (11.5-14.5); White Blood Count 3.6 K/mm3 (4.5-10.0)
[2022-10-17] MEDS: levETIRAcetam 500 MG TABLET PO ×2 (08:52→20:17)
--- NOTE | 2022-10-17 08:52 | PM.IMPN ---
Progress Note: A&P Assessment and Plan (1) CHF (congestive heart failure): Code(s): I50.9 - Heart failure, unspecified Status: Acute Assessment and Plan: Started on IV Lasix 40 b.i.d. urine output not charted. Patient would be weighed daily. Echo from . Technically suboptimal study due to poor sonographic images. ? 2. Definity contrast administered improved wall motion interpretation. ? 3. Left ventricular chamber dimension is normal. ? 4. Left ventricular systolic function is normal, estimated at 60-65%. ? 5. There is mild concentric increased left ventricular wall thickness. ? 6. The left ventricular diastolic function is abnormal. ? 7. E/e' 19 is elevated. ? 8. There is mild aortic valve sclerosis. ? 9. The mitral valve has mildly calcified annulus. ? 10. No pulmonary hypertension, estimated pulmonary arterial systolic pressure is 27 mmHg. ? 11. There is trivial pericardial effusion. Continue lisinopril Continue with metoprolol (2) Diabetes: Code(s): E11.9 - Type 2 diabetes mellitus without complications Status: Acute Assessment and Plan: Accu-Cheks AC and HS with sliding scale insulin and hypoglycemic protocol Continue with Januvia Continue with Lantus Continue with glipizide Lower Lantus glipizide Januvia on hold currently will hold her Lantus (3) Hyperlipidemia: Code(s): E78.5 - Hyperlipidemia, unspecified Status: Acute Assessment and Plan: Continue with atorvastatin (4) Obstructive sleep apnea: Code(s): G47.33 - Obstructive sleep apnea (adult) (pediatric) Status: Acute Assessment and Plan: The patient is noncompliant with her CPAP (5) Gastroesophageal reflux disease: Code(s): K21.9 - Gastro-esophageal reflux disease without esophagitis Status: Acute Assessment and Plan: IV Pepcid (6) Bipolar disorder: Code(s): F31.9 - Bipolar disorder, unspecified Status: Acute Assessment and Plan: Continue with alprazolam (7) Anxiety: Code(s): F41.9 - Anxiety disorder, unspecified Status: Chronic Assessment and Plan: Continue with alprazolam Plan Abnormal growth to her left breast needs outpatient mammogram and ultrasound. Anemia drop 10/16/2022 with no obvious bleeding.: Labs reviewed 10/17/2022 with stable H&H. Chronic anemia baseline hemoglobin between 8-9 Status post pacemaker implantation DVT prophylaxis on Eliquis Peripheral neuropathy on gabapentin Subjective Date/time seen: 10/17/22 08:52 Interval history: This is a 46-year-old female patient who has a history of CHF.? The patient has edema to her abdomen her hands and lower extremities.? The patient was discharged from [facility] yesterday with congestive heart failure.She??previously was discharged from here on 09/23/2022 due to CHF as well. ? Her echo from 09/22/2022 was read as the following?1. Technically suboptimal study due to poor sonographic images. ? 2. Definity contrast administered improved wall motion interpretation. ? 3. Left ventricular chamber dimension is normal. ? 4. Left ventricular systolic function is normal, estimated at 60-65%. ? 5. There is mild concentric increased left ventricular wall thickness. ? 6. The left ventricular diastolic function is abnormal. ? 7. E/e' 19 is elevated. ? 8. There is mild aortic valve sclerosis. ? 9. The mitral valve has mildly calcified annulus. ? 10. No pulmonary hypertension, estimated pulmonary arterial systolic pressure is 27 mmHg. ? 11. There is trivial pericardial effusion.? Her chest abdomen pelvis CT today was read as Cardiomegaly, edema of the chest, abdominal and pelvic [place], mild bilateral pleural effusions and small pericardial effusion. Findings suggest congestive heart failure Asymmetric soft tissue density and skin thickening of the left breast. No indication of prior mammograms is evident on PACS. Mammography is recommended when patient condition permits T
[2022-10-17 08:59] LABS: Alanine Aminotransferase 20 U/L (6-35); Albumin Level 3.5 g/dL (3.5-5.1); Alkaline Phosphatase 98 U/L (38-126); Anion Gap 3 mmol/L (8-16); Aspartate Amino Transferase 26 U/L (14-36); Bilirubin,Total 0.5 mg/dL (0.2-1.3); Blood Urea Nitrogen 44 mg/dL (7-17); Calcium 8.6 mg/dL (8.4-10.2); Carbon Dioxide 39 mmol/L (22-30); Chloride 102 mmol/L (98-107); Estimated Glomerular Filt Rate 60; Glucose 47 mg/dL (65-110); Magnesium 2.4 mg/dL (1.6-2.3); Sodium 144 mmol/L (137-145)
[2022-10-17 09:07] LABS: Atypical Lymphocytes Present; Platelet Estimate Adequate (Adequate); Schistocytes None Seen (NORMAL)
[2022-10-17 09:09] LABS: Glucose Point of Care 101 mg/dl (65-105)
[2022-10-17 12:51] LABS: Glucose Point of Care 73 mg/dl (65-105)
[2022-10-17 17:28] LABS: Glucose Point of Care 60 mg/dl (65-105)
[2022-10-17 19:07] LABS: Glucose Point of Care 82 mg/dl (65-105)
[2022-10-17] MEDS: MELATONIN 5 MG TABLET 10 MG PO (20:17)
[2022-10-17] MEDS: ATORVASTATIN 20 MG TABLET PO (20:17)
[2022-10-17] MEDS: INSULIN GLARGINE (*BKC) 100 UNITS/ML 30 UNITS SUB-Q (20:18)
[2022-10-17 21:23] LABS: Glucose Point of Care 83 mg/dl (65-105)
[2022-10-17] MEDS: traMADol HCL (*CRX) 50 MG TABLET PO (23:26)
[2022-10-17] MEDS: LORazepam INJ (*CRX) 2 MG/ML VIAL 0.5 MG IV PUSH (23:54)
[2022-10-18 05:38] VITALS: BP 134/72; PULSE 70; RESP 20; TEMP 36.6; O2SAT 97
[2022-10-18 06:44] LABS: Glucose Point of Care 24 mg/dl (65-105)
[2022-10-18] MEDS: DEXTROSE 50% 25 GM/50 ML SYRINGE IV PUSH (06:48)
[2022-10-18 07:43] LABS: Glucose Point of Care 66 mg/dl (65-105)
[2022-10-18] MEDS: GLUCAGON FOR INJ 1 MG VIAL IM (08:28)
[2022-10-18 08:30] VITALS: PULSE 69; RESP 20; O2SAT 97
[2022-10-18] MEDS: DEXTROSE 5% 1,000 ML 1,000 ML 50 ML IVPB (08:30)
[2022-10-18 08:34] LABS: Glucose Point of Care 61 mg/dl (65-105)
[2022-10-18 08:50] LABS: Glucose Point of Care 101 mg/dl (65-105)
[2022-10-18 09:02] LABS: Glucose Point of Care 130 mg/dl (65-105)
--- NOTE | 2022-10-18 09:42 | PM.IMPN ---
Progress Note: A&P Assessment and Plan (1) CHF (congestive heart failure): Code(s): I50.9 - Heart failure, unspecified Status: Acute Assessment and Plan: Started on IV Lasix 40 b.i.d. urine output not charted. Patient would be weighed daily. Echo from . Technically suboptimal study due to poor sonographic images. ? 2. Definity contrast administered improved wall motion interpretation. ? 3. Left ventricular chamber dimension is normal. ? 4. Left ventricular systolic function is normal, estimated at 60-65%. ? 5. There is mild concentric increased left ventricular wall thickness. ? 6. The left ventricular diastolic function is abnormal. ? 7. E/e' 19 is elevated. ? 8. There is mild aortic valve sclerosis. ? 9. The mitral valve has mildly calcified annulus. ? 10. No pulmonary hypertension, estimated pulmonary arterial systolic pressure is 27 mmHg. ? 11. There is trivial pericardial effusion. Continue lisinopril Continue with metoprolol (2) Diabetes: Code(s): E11.9 - Type 2 diabetes mellitus without complications Status: Acute Assessment and Plan: Accu-Cheks AC and HS with sliding scale insulin and hypoglycemic protocol Continue with Januvia Continue with Lantus Continue with glipizide Lower Lantus glipizide Januvia on hold currently will hold her Lantus Continues to be hypoglycemic on home insulin doses will hold insulin continue to monitor Start dextrose drip today for hypoglycemia (3) Hyperlipidemia: Code(s): E78.5 - Hyperlipidemia, unspecified Status: Acute Assessment and Plan: Continue with atorvastatin (4) Obstructive sleep apnea: Code(s): G47.33 - Obstructive sleep apnea (adult) (pediatric) Status: Acute Assessment and Plan: The patient is noncompliant with her CPAP (5) Gastroesophageal reflux disease: Code(s): K21.9 - Gastro-esophageal reflux disease without esophagitis Status: Acute Assessment and Plan: IV Pepcid (6) Bipolar disorder: Code(s): F31.9 - Bipolar disorder, unspecified Status: Acute Assessment and Plan: Continue with alprazolam (7) Anxiety: Code(s): F41.9 - Anxiety disorder, unspecified Status: Chronic Assessment and Plan: Continue with alprazolam Plan Abnormal growth to her left breast needs outpatient mammogram and ultrasound. Anemia drop 10/16/2022 with no obvious bleeding.: Labs reviewed 10/17/2022 with stable H&H. Chronic anemia baseline hemoglobin between 8-9 Status post pacemaker implantation DVT prophylaxis on Eliquis Peripheral neuropathy on gabapentin Subjective Date/time seen: 10/18/22 09:42 Interval history: This is a 46-year-old female patient who has a history of CHF.? The patient has edema to her abdomen her hands and lower extremities.? The patient was discharged from [facility] yesterday with congestive heart failure.She??previously was discharged from here on 09/23/2022 due to CHF as well. ? Her echo from 09/22/2022 was read as the following?1. Technically suboptimal study due to poor sonographic images. ? 2. Definity contrast administered improved wall motion interpretation. ? 3. Left ventricular chamber dimension is normal. ? 4. Left ventricular systolic function is normal, estimated at 60-65%. ? 5. There is mild concentric increased left ventricular wall thickness. ? 6. The left ventricular diastolic function is abnormal. ? 7. E/e' 19 is elevated. ? 8. There is mild aortic valve sclerosis. ? 9. The mitral valve has mildly calcified annulus. ? 10. No pulmonary hypertension, estimated pulmonary arterial systolic pressure is 27 mmHg. ? 11. There is trivial pericardial effusion.? Her chest abdomen pelvis CT today was read as Cardiomegaly, edema of the chest, abdominal and pelvic [place], mild bilateral pleural effusions and small pericardial effusion. Findings suggest congestive heart failure Asymmetric soft tissue density and skin thickening
[2022-10-18] MEDS: TOLNAFTATE 1% POWDER 45 GM BTL 1 APPLIC TOPICAL ×2 (10:12→21:15)
[2022-10-18] MEDS: FUROSEMIDE INJ 40 MG/4 ML VIAL IV PUSH ×2 (10:13→21:11)
[2022-10-18] MEDS: FAMOTIDINE 20 MG/2 ML VIAL IV PUSH ×2 (10:13→21:11)
[2022-10-18 10:23] LABS: Glucose Point of Care 128 mg/dl (65-105)
[2022-10-18 10:51] LABS: Base Excess ABG 9.4 mEq/l (+/-2.0); Device ROOM AIR; Fractional Inspired Oxygen 21 %; HCO3 ABG 35.2 mEq/l (22.0-26.0); Modified Allen's Test Pass; Oxygen Content ABG 13.2 %vol (16.0-22.0); Oxygen Saturation ABG 95.2 % (95.0-100.0); Oxyhemoglobin 93.3 % THb (90.0-100.0); PCO2 ABG 54.9 mmHg (35.0-45.0); PO2 FiO2 Ratio Arterial Blood 3.62 %; Site Drawn RIGHT RADIAL; pH ABG 7.425 (7.350-7.450)
[2022-10-18] MEDS: ALPRAZolam (*CRX) 0.5 MG TABLET 1 MG PO ×3 (11:08→17:53)
[2022-10-18] MEDS: lisinopriL 20 MG TABLET PO (11:09)
[2022-10-18 11:10] VITALS: PULSE 69
[2022-10-18] MEDS: METOPROLOL TARTRATE 25 MG TABLET PO ×2 (11:10→21:12)
[2022-10-18] MEDS: GABAPENTIN 300 MG CAPSULE PO ×3 (11:10→17:49)
[2022-10-18] MEDS: levETIRAcetam 500 MG TABLET PO ×2 (11:10→21:12)
[2022-10-18] MEDS: APIXABAN 5 MG TABLET PO ×2 (11:11→21:12)
[2022-10-18 12:39] LABS: Glucose Point of Care 118 mg/dl (65-105)
[2022-10-18 14:00] VITALS: BP 141/81; PULSE 69; RESP 20; TEMP 35.9; O2SAT 98
[2022-10-18 16:48] LABS: Glucose Point of Care 80 mg/dl (65-105)
[2022-10-18 21:01] VITALS: BP 110/54; PULSE 70; RESP 22; TEMP 36.5; O2SAT 96
[2022-10-18 21:08] LABS: Glucose Point of Care 93 mg/dl (65-105)
[2022-10-18 21:12] VITALS: PULSE 70
[2022-10-18] MEDS: MELATONIN 5 MG TABLET 10 MG PO (21:14)
[2022-10-18] MEDS: ATORVASTATIN 20 MG TABLET PO (21:14)
[2022-10-19] VITALS (7 sets, daily range): BP systolic 90–117; BP diastolic 48–72; PULSE 70–76; RESP 10–20; TEMP 35.7–36.6; O2SAT 99–100
[2022-10-19 01:45] LABS: Glucose Point of Care 50 mg/dl (65-105)
[2022-10-19] MEDS: GLUCOSE ORAL GEL 15 GM OF GLUCSE IN 37.5 GM TUBE PO (01:51)
[2022-10-19] MEDS: DEXTROSE 50% 25 GM/50 ML SYRINGE IV PUSH (03:50)
--- NOTE | 2022-10-19 04:04 | PCDIET ---
Daylight Savings Time For Daylight Savings Time Ending in the Fall - Clocks are moved back. For Daylight Savings Time Beginning in the Spring - Clocks are moved ahead. For [facility], the time of change occurs at 0200 hrs. Time is taken from the counter server. This entry on the patient's chart recognizes the change in time reflected during documentation. Example: 2 entries for vital signs may be charted for 0200 hrs.
[2022-10-19 04:36] LABS: Glucose Point of Care 47 mg/dl (65-105)
[2022-10-19 04:36] LABS: Glucose Point of Care 39 mg/dl (65-105)
[2022-10-19 04:36] LABS: Glucose Point of Care 98 mg/dl (65-105)
[2022-10-19 05:28] LABS: Basophils Percent Auto 0.8 % (0.2-1.2); Eosinophils Absolute Auto 0.5 K/mm3 (0-0.3); Eosinophils Percent Auto 8.7 % (0-4.4); Hematocrit 31.7 % (37.0-47.0); Hemoglobin 8.9 g/dL (12.0-15.0); Immature Granulocyte Absolute 0.02 K/mm3 (0.00-0.031); Immature Granulocyte Percent A 0.4 % (0-0.5); Lymphocytes Absolute Auto 1.59 K/mm3 (0.9-3.2); Lymphocytes Percent Auto 30.9 % (18.3-44.2); Mean Corpuscular HGB Conc 28.1 g/dl (32-36); Mean Corpuscular Hemoglobin 28.6 pg (26-34); Mean Corpuscular Volume 101.9 fl (80-100); Mean Platelet Volume 9.6 fl (7.4-10.4); Monocytes Absolute Auto 0.5 K/mm3 (0.1-0.6); Monocytes Percent Auto 9.5 % (2.6-8.5); Neutrophils Absolute Auto 2.6 K/mm3 (1.3-6.7); Neutrophils Percent Auto 49.7 % (45.5-73.1); Platelet Count Result 253 k/mm3 (150-375); Red Blood Count 3.11 M/mm3 (4.2-5.4); Red Cell Distribution Width 15.6 % (11.5-14.5); White Blood Count 5.2 K/mm3 (4.5-10.0)
[2022-10-19 05:57] LABS: Alanine Aminotransferase 16 U/L (6-35); Alkaline Phosphatase 87 U/L (38-126); Anion Gap 5 mmol/L (8-16); Aspartate Amino Transferase 24 U/L (14-36); Bilirubin,Total 0.5 mg/dL (0.2-1.3); Blood Urea Nitrogen 48 mg/dL (7-17); Calcium 8.1 mg/dL (8.4-10.2); Carbon Dioxide 32 mmol/L (22-30); Chloride 102 mmol/L (98-107); Estimated Glomerular Filt Rate 60; Glucose 101 mg/dL (65-110); Magnesium 2.4 mg/dL (1.6-2.3); Potassium 4.3 mmol/L (3.4-5.0); Sodium 139 mmol/L (137-145)
[2022-10-19 08:56] LABS: Glucose Point of Care 83 mg/dl (65-105)
[2022-10-19] MEDS: FERROUS SULFATE 324 MG TABLET PO ×2 (09:23→17:43)
[2022-10-19] MEDS: ALPRAZolam (*CRX) 0.5 MG TABLET 1 MG PO ×3 (09:24→17:46)
[2022-10-19] MEDS: FUROSEMIDE INJ 40 MG/4 ML VIAL IV PUSH ×3 (09:25→20:14)
[2022-10-19] MEDS: FAMOTIDINE 20 MG/2 ML VIAL IV PUSH ×2 (09:25→20:14)
[2022-10-19] MEDS: METOPROLOL TARTRATE 25 MG TABLET PO ×2 (09:25→20:14)
[2022-10-19] MEDS: levETIRAcetam 500 MG TABLET PO ×2 (09:25→20:14)
[2022-10-19] MEDS: lisinopriL 20 MG TABLET PO (09:26)
[2022-10-19] MEDS: LORATADINE 10 MG TABLET PO (09:26)
[2022-10-19] MEDS: GABAPENTIN 300 MG CAPSULE PO ×3 (09:27→17:43)
[2022-10-19] MEDS: APIXABAN 5 MG TABLET PO ×2 (09:28→20:15)
[2022-10-19] MEDS: TOLNAFTATE 1% POWDER 45 GM BTL 1 APPLIC TOPICAL ×2 (09:40→20:15)
--- NOTE | 2022-10-19 10:15 | PM.IMPN ---
Progress Note: A&P Assessment and Plan (1) CHF (congestive heart failure): Code(s): I50.9 - Heart failure, unspecified Status: Acute Assessment and Plan: Started on IV Lasix 40 b.i.d. urine output not charted. Patient would be weighed daily. Echo from . Technically suboptimal study due to poor sonographic images. ? 2. Definity contrast administered improved wall motion interpretation. ? 3. Left ventricular chamber dimension is normal. ? 4. Left ventricular systolic function is normal, estimated at 60-65%. ? 5. There is mild concentric increased left ventricular wall thickness. ? 6. The left ventricular diastolic function is abnormal. ? 7. E/e' 19 is elevated. ? 8. There is mild aortic valve sclerosis. ? 9. The mitral valve has mildly calcified annulus. ? 10. No pulmonary hypertension, estimated pulmonary arterial systolic pressure is 27 mmHg. ? 11. There is trivial pericardial effusion. Continue lisinopril Continue with metoprolol (2) Diabetes: Code(s): E11.9 - Type 2 diabetes mellitus without complications Status: Acute Assessment and Plan: Accu-Cheks AC and HS with sliding scale insulin and hypoglycemic protocol Continue with Januvia Continue with Lantus Continue with glipizide Lower Lantus glipizide Januvia on hold currently will hold her Lantus Continues to be hypoglycemic on home insulin doses will hold insulin continue to monitor Started dextrose refer hypoglycemia. Off insulin continue dextrose and monitor Accu-Chek (3) Hyperlipidemia: Code(s): E78.5 - Hyperlipidemia, unspecified Status: Acute Assessment and Plan: Continue with atorvastatin (4) Obstructive sleep apnea: Code(s): G47.33 - Obstructive sleep apnea (adult) (pediatric) Status: Acute Assessment and Plan: The patient is noncompliant with her CPAP ABG with chronic hypercapnia (5) Gastroesophageal reflux disease: Code(s): K21.9 - Gastro-esophageal reflux disease without esophagitis Status: Acute Assessment and Plan: IV Pepcid (6) Bipolar disorder: Code(s): F31.9 - Bipolar disorder, unspecified Status: Acute Assessment and Plan: Continue with alprazolam (7) Anxiety: Code(s): F41.9 - Anxiety disorder, unspecified Status: Chronic Assessment and Plan: Continue with alprazolam Plan Abnormal growth to her left breast needs outpatient mammogram and ultrasound. Anemia drop 10/16/2022 with no obvious bleeding.: Labs reviewed 10/17/2022 with stable H&H. Chronic anemia baseline hemoglobin between 8-9 Status post pacemaker implantation DVT prophylaxis on Eliquis Peripheral neuropathy on gabapentin Subjective Date/time seen: 10/19/22 10:15 Interval history: This is a 46-year-old female patient who has a history of CHF.? The patient has edema to her abdomen her hands and lower extremities.? The patient was discharged from [facility] yesterday with congestive heart failure.She??previously was discharged from here on 09/23/2022 due to CHF as well. ? Her echo from 09/22/2022 was read as the following?1. Technically suboptimal study due to poor sonographic images. ? 2. Definity contrast administered improved wall motion interpretation. ? 3. Left ventricular chamber dimension is normal. ? 4. Left ventricular systolic function is normal, estimated at 60-65%. ? 5. There is mild concentric increased left ventricular wall thickness. ? 6. The left ventricular diastolic function is abnormal. ? 7. E/e' 19 is elevated. ? 8. There is mild aortic valve sclerosis. ? 9. The mitral valve has mildly calcified annulus. ? 10. No pulmonary hypertension, estimated pulmonary arterial systolic pressure is 27 mmHg. ? 11. There is trivial pericardial effusion.? Her chest abdomen pelvis CT today was read as Cardiomegaly, edema of the chest, abdominal and pelvic [place], mild bilateral pleural effusions and small pericardial effusion. Findings suggest co
[2022-10-19 12:00] LABS: Glucose Point of Care 127 mg/dl (65-105)
--- NOTE | 2022-10-19 12:02 | PCPTNOTE ---
The patient treatment was not able to be completed at this time. The pt was yelling out saying It hurts . RN aware. Will plan to continue treatment per plan of care.
[2022-10-19] MEDS: traMADol HCL (*CRX) 50 MG TABLET PO (12:14)
--- NOTE | 2022-10-19 15:33 | PCPTNOTE ---
The patient treatment was not able to be completed at this time. Upon entering the room the pt was sleeping and wouldn't awaken. Per the RN the pt had just received some medication that would make her tired. Will continue per PT plan of care.
[2022-10-19 17:53] LABS: Glucose Point of Care 155 mg/dl (65-105)
[2022-10-19] MEDS: ATORVASTATIN 20 MG TABLET PO (20:15)
[2022-10-19 20:24] LABS: Glucose Point of Care 157 mg/dl (65-105)
[2022-10-20 06:00] VITALS: BP 96/56; PULSE 66; RESP 18; TEMP 36.6; O2SAT 99
[2022-10-20 06:05] LABS: Glucose Point of Care 124 mg/dl (65-105)
[2022-10-20 06:17] LABS: Basophils Percent Auto 0.9 % (0.2-1.2); Eosinophils Absolute Auto 0.5 K/mm3 (0-0.3); Eosinophils Percent Auto 9.6 % (0-4.4); Hematocrit 32.3 % (37.0-47.0); Hemoglobin 9.5 g/dL (12.0-15.0); Lymphocytes Absolute Auto 1.67 K/mm3 (0.9-3.2); Lymphocytes Percent Auto 35.7 % (18.3-44.2); Mean Corpuscular HGB Conc 29.4 g/dl (32-36); Mean Corpuscular Hemoglobin 27.9 pg (26-34); Mean Corpuscular Volume 94.7 fl (80-100); Mean Platelet Volume 9.5 fl (7.4-10.4); Monocytes Absolute Auto 0.5 K/mm3 (0.1-0.6); Monocytes Percent Auto 10.7 % (2.6-8.5); Neutrophils Percent Auto 43.1 % (45.5-73.1); Platelet Count Result 256 k/mm3 (150-375); Red Blood Count 3.41 M/mm3 (4.2-5.4); Red Cell Distribution Width 15.2 % (11.5-14.5); White Blood Count 4.7 K/mm3 (4.5-10.0)
[2022-10-20] MEDS: FUROSEMIDE INJ 40 MG/4 ML VIAL IV PUSH ×3 (06:20→20:26)
[2022-10-20 06:29] LABS: Alanine Aminotransferase 16 U/L (6-35); Albumin Level 3.5 g/dL (3.5-5.1); Alkaline Phosphatase 99 U/L (38-126); Anion Gap 4 mmol/L (8-16); Aspartate Amino Transferase 28 U/L (14-36); Bilirubin,Total 0.6 mg/dL (0.2-1.3); Blood Urea Nitrogen 44 mg/dL (7-17); Calcium 8.6 mg/dL (8.4-10.2); Carbon Dioxide 34 mmol/L (22-30); Chloride 99 mmol/L (98-107); Estimated Glomerular Filt Rate 53; Glucose 120 mg/dL (65-110); Magnesium 2.6 mg/dL (1.6-2.3); Potassium 4.7 mmol/L (3.4-5.0); Sodium 137 mmol/L (137-145)
[2022-10-20 07:17] LABS: Anisocytosis 1+ (NORMAL); Platelet Estimate Adequate (Adequate); Schistocytes None Seen (NORMAL)
[2022-10-20 08:00] VITALS: PULSE 78; RESP 18; O2SAT 99
[2022-10-20] MEDS: traMADol HCL (*CRX) 50 MG TABLET PO ×2 (08:01→14:22)
[2022-10-20] MEDS: ALPRAZolam (*CRX) 0.5 MG TABLET 1 MG PO ×3 (08:02→17:36)
--- NOTE | 2022-10-20 08:02 | P.CDI_ITS ---
CDI Query Clarified Diagnosis Clarified Diagnosis: Elevated BNP on 10/15/22 lab work. Documented history of CHF. CHF noted on the assessment and plan. Pt receiving IV Furosemide. Furosemide listed as a home medication. Edema noted in the documentation. Please specify type and acuity of heart failure if known. * Acute * Chronic * Acute on Chronic * Unknown * Systolic * Diastolic * Combined Systolic and Diastolic * Unknown
[2022-10-20] MEDS: APIXABAN 5 MG TABLET PO ×2 (08:03→20:23)
[2022-10-20] MEDS: LORATADINE 10 MG TABLET PO (08:03)
[2022-10-20] MEDS: FAMOTIDINE 20 MG/2 ML VIAL IV PUSH ×2 (08:03→20:22)
[2022-10-20] MEDS: GABAPENTIN 300 MG CAPSULE PO ×3 (08:03→17:37)
[2022-10-20] MEDS: levETIRAcetam 500 MG TABLET PO ×2 (08:03→20:23)
[2022-10-20] MEDS: FERROUS SULFATE 324 MG TABLET PO ×2 (08:03→17:37)
[2022-10-20 08:04] VITALS: PULSE 78
[2022-10-20] MEDS: TOLNAFTATE 1% POWDER 45 GM BTL 1 APPLIC TOPICAL ×2 (08:04→20:25)
[2022-10-20] MEDS: lisinopriL 20 MG TABLET PO (08:04)
[2022-10-20] MEDS: METOPROLOL TARTRATE 25 MG TABLET PO (08:04)
[2022-10-20 08:21] LABS: Glucose Point of Care 126 mg/dl (65-105)
--- NOTE | 2022-10-20 12:16 | PM.CNNEP ---
Assessment and Plan Assessment and plan (1) Anasarca: Code(s): R60.1 - Generalized edema Status: Acute Assessment and Plan: Ms. Nguyen has severe edema. This is been going on for a while. She has had a few test to check on this. Echocardiogram shows normal LV function and no pulmonary hypertension. It does show mild LV wall thickness, however I do not think we can blame this on her sleep apnea or on congestive heart failure. She has had scans of her abdomen pelvis and chest does not look like there is a retroperitoneal process impeding flow of the veins or lymphatics. She does have a urinalysis showing 3+ protein so she could have white open proteinuria causing this. Strangely her albumin level in the blood is normal. Gabapentin can cause swelling sometimes. Will try stopping this. She is not on any other medication that would cause swelling. At this point I am going to check on the quantitative measurement of the urine protein. I am going to increase the amount of diuretics that she is getting. Patient has a GFR that has been up and down ranging from the 40s to 60s. This is probably related to diuresis. She could have kidney disease from her hypertension or diabetes as well. Other causes include inflammatory diseases or infiltrative diseases as well as obstruction. Will evaluate all this with serology, immunofixation, renal ultrasound. 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 This has been historically not well controlled. (3) HTN (hypertension): Code(s): I10 - Essential (primary) hypertension Status: Acute Assessment and Plan: Blood pressure is up and down. Lately it has been on the soft side. (4) COPD (chronic obstructive pulmonary disease): Code(s): J44.9 - Chronic obstructive pulmonary disease, unspecified Status: Acute Assessment and Plan: She is getting supportive care (5) Sleep apnea: Code(s): G47.30 - Sleep apnea, unspecified Status: Acute Assessment and Plan: She does not use a CPAP machine. (6) Bipolar disorder: Code(s): F31.9 - Bipolar disorder, unspecified Status: Acute Assessment and Plan: She is treated with medications for this (7) Hyperlipidemia: Code(s): E78.5 - Hyperlipidemia, unspecified Status: Acute Assessment and Plan: She is on atorvastatin for this History of Present Illness Reason for Consult Consult date: 10/20/22 Chief Complaint Chief complaint: chf,noncompliance with medications History of Present Illness Narrative: Vlaerie is an unfortunate 46-year-old lady who has multiple medical problems including diabetes, hypertension, hyperlipidemia, high BMI, sleep apnea but does not use a machine, history of seizures, DVT, GERD, anemia, anxiety, arthritis, bipolar, chronic anticoagulation due to DVT and pulmonary emboli, depression, COPD, chronic pain. The patient has been in an out of the hospital 3 times this year because of swelling. This time she came in with abdominal pain. She has severe edema in her upper and lower limbs as well as chest and abdominal wall. The tightness from the swelling is so bad that she has abdominal discomfort. She was discharged from [facility] the day before admission here with a diagnosis of congestive heart failure. In September she did have an echocardiogram which showed good LV function and no pulmonary hypertension but mild concentric LV wall thickness. Since admission she is been g
[2022-10-20 12:37] LABS: Glucose Point of Care 160 mg/dl (65-105)
--- NOTE | 2022-10-20 13:36 | PCPTNOTE ---
The patient treatment was not able to be completed. Patient not responding initially and then opened eyes and shook her head no when asked to participate in therapy. Will plan to continue treatment per plan of care.
[2022-10-20 14:00] VITALS: BP 144/81; PULSE 71; RESP 18; TEMP 36.2; O2SAT 97
[2022-10-20 15:10] LABS: Creatine Kinase 29 U/L (30-135)
[2022-10-20 15:18] LABS: Complement C3 109 mg/dL (88-165)
[2022-10-20 15:27] LABS: Erythrocyte Sedimentation Rate 136 mm/hr (0-20)
--- NOTE | 2022-10-20 16:02 | PM.IMPN ---
Progress Note: A&P Assessment and Plan (1) CHF (congestive heart failure): Code(s): I50.9 - Heart failure, unspecified Status: Acute Assessment and Plan: Started on IV Lasix 40 b.i.d. urine output not charted. Patient would be weighed daily. Echo from . Technically suboptimal study due to poor sonographic images. ? 2. Definity contrast administered improved wall motion interpretation. ? 3. Left ventricular chamber dimension is normal. ? 4. Left ventricular systolic function is normal, estimated at 60-65%. ? 5. There is mild concentric increased left ventricular wall thickness. ? 6. The left ventricular diastolic function is abnormal. ? 7. E/e' 19 is elevated. ? 8. There is mild aortic valve sclerosis. ? 9. The mitral valve has mildly calcified annulus. ? 10. No pulmonary hypertension, estimated pulmonary arterial systolic pressure is 27 mmHg. ? 11. There is trivial pericardial effusion. Continue lisinopril Continue with metoprolol 10/20/2022 interval history: patient remains somnolent, she is notresponding to verbal instruction and just moans, she appears quite edematous thought she is getting Lasix 40mg IV q8, has anasarca however her albumin is low normal, will consult capsule maker for further recommendation, will monitor, (2) Diabetes: Code(s): E11.9 - Type 2 diabetes mellitus without complications Status: Acute Assessment and Plan: Accu-Cheks AC and HS with sliding scale insulin and hypoglycemic protocol Continue with Januvia Continue with Lantus Continue with glipizide Lower Lantus glipizide Januvia on hold currently will hold her Lantus Continues to be hypoglycemic on home insulin doses will hold insulin continue to monitor Started dextrose refer hypoglycemia. Off insulin continue dextrose and monitor Accu-Chek (3) Hyperlipidemia: Code(s): E78.5 - Hyperlipidemia, unspecified Status: Acute Assessment and Plan: Continue with atorvastatin (4) Obstructive sleep apnea: Code(s): G47.33 - Obstructive sleep apnea (adult) (pediatric) Status: Acute Assessment and Plan: The patient is noncompliant with her CPAP ABG with chronic hypercapnia (5) Gastroesophageal reflux disease: Code(s): K21.9 - Gastro-esophageal reflux disease without esophagitis Status: Acute Assessment and Plan: IV Pepcid (6) Bipolar disorder: Code(s): F31.9 - Bipolar disorder, unspecified Status: Acute Assessment and Plan: Continue with alprazolam (7) Anxiety: Code(s): F41.9 - Anxiety disorder, unspecified Status: Chronic Assessment and Plan: Continue with alprazolam Plan Abnormal growth to her left breast needs outpatient mammogram and ultrasound. Anemia drop 10/16/2022 with no obvious bleeding.: Labs reviewed 10/17/2022 with stable H&H. Chronic anemia baseline hemoglobin between 8-9 Status post pacemaker implantation DVT prophylaxis on Eliquis Peripheral neuropathy on gabapentin Subjective Date/time seen: 10/20/22 16:02 Interval history: This is a 46-year-old female patient who has a history of CHF.? The patient has edema to her abdomen her hands and lower extremities.? The patient was discharged from [facility] yesterday with congestive heart failure.She??previously was discharged from here on 09/23/2022 due to CHF as well. ? Her echo from 09/22/2022 was read as the following?1. Technically suboptimal study due to poor sonographic images. ? 2. Definity contrast administered improved wall motion interpretation. ? 3. Left ventricular chamber dimension is normal. ? 4. Left ventricular systolic function is normal, estimated at 60-65%. ? 5. There is mild concentric increased left ventricular wall thickness. ? 6. The left ventricular diastolic function is abnormal. ? 7. E/e' 19 is elevated. ? 8. There is mild aortic valve sclerosis. ? 9. The mitral valve has mildly calcified annulus. ? 10. No pulmonary hyperte
[2022-10-20 17:10] LABS: Total Protein Urine Random 33 mg/dL
[2022-10-20 17:15] LABS: Urea Random Urine 201 MG/DL
[2022-10-20 17:16] LABS: Creatinine Urine 12.5 mg/dL; Ur Ttl Prot Creatinine Ratio 2.64 mg/mg (0-0.20)
[2022-10-20 17:20] LABS: Sodium Urine Random 127 meq/L
[2022-10-20 17:25] LABS: Glucose Point of Care 171 mg/dl (65-105)
[2022-10-20] MEDS: BUMETANIDE INJ 1 MG/4 ML VIAL IV PUSH (17:37)
[2022-10-20 18:12] LABS: Glucose Point of Care 185 mg/dl (65-105)
[2022-10-20 20:00] VITALS: PULSE 71; RESP 18; O2SAT 97
[2022-10-20] MEDS: MELATONIN 5 MG TABLET 10 MG PO (20:23)
[2022-10-20] MEDS: ATORVASTATIN 20 MG TABLET PO (20:23)
[2022-10-20] MEDS: methocarbamoL 750 MG TABLET PO (20:23)
[2022-10-20 21:05] LABS: Glucose Point of Care 175 mg/dl (65-105)
[2022-10-20 22:00] VITALS: BP 96/54; PULSE 62; RESP 16; TEMP 36.9; O2SAT 98
[2022-10-21] MEDS: FUROSEMIDE INJ 40 MG/4 ML VIAL IV PUSH ×3 (05:44→20:05)
[2022-10-21 06:00] VITALS: BP 99/56; PULSE 60; RESP 16; TEMP 36.7; O2SAT 96
[2022-10-21 08:42] LABS: Glucose Point of Care 143 mg/dl (65-105)
[2022-10-21 08:48] LABS: Hematocrit 31.8 % (37.0-47.0); Hemoglobin 9.5 g/dL (12.0-15.0); Mean Corpuscular HGB Conc 29.9 g/dl (32-36); Mean Corpuscular Hemoglobin 28.7 pg (26-34); Mean Corpuscular Volume 96.1 fl (80-100); Mean Platelet Volume 9.4 fl (7.4-10.4); Platelet Count Result 232 k/mm3 (150-375); Red Blood Count 3.31 M/mm3 (4.2-5.4); White Blood Count 4.3 K/mm3 (4.5-10.0)
--- NOTE | 2022-10-21 08:55 | PCOTNOTE ---
Attempted to see patient this am, however patient sleeping soundly upon entering and unable to arouse at this time.
[2022-10-21 09:00] LABS: Albumin Level 3.5 g/dL (3.5-5.1); Anion Gap 5 mmol/L (8-16); Blood Urea Nitrogen 39 mg/dL (7-17); Carbon Dioxide 37 mmol/L (22-30); Chloride 96 mmol/L (98-107); Estimated Glomerular Filt Rate 48; Glucose 147 mg/dL (65-110); Magnesium 2.5 mg/dL (1.6-2.3); Phosphorus 5.1 mg/dL (2.5-4.5); Potassium 4.3 mmol/L (3.4-5.0); Sodium 138 mmol/L (137-145)
[2022-10-21 09:30] VITALS: BP 152/81; PULSE 72; RESP 7; TEMP 36.6; O2SAT 100
[2022-10-21] MEDS: TOLNAFTATE 1% POWDER 45 GM BTL 1 APPLIC TOPICAL ×2 (09:31→20:08)
[2022-10-21] MEDS: BUMETANIDE INJ 1 MG/4 ML VIAL IV PUSH ×2 (09:31→16:40)
[2022-10-21] MEDS: FAMOTIDINE 20 MG/2 ML VIAL IV PUSH ×2 (09:31→23:22)
[2022-10-21 09:57] LABS: Alveolar/Arterial O2 Gradient 29.3 mmHg; Base Excess ABG 9.8 mEq/l (+/-2.0); Fractional Inspired Oxygen 21 %; HCO3 ABG 34.3 mEq/l (22.0-26.0); Oxygen Content ABG 16.3 %vol (16.0-22.0); Oxygen Saturation ABG 94.1 % (95.0-100.0); PCO2 ABG 46.1 mmHg (35.0-45.0); PO2 ABG 65.2 mmHg (80.0-100.0); Total Hemoglobin 12.7 g/dL (12.0-18.0)
[2022-10-21 09:58] LABS: Modified Allen's Test Pass; Site Drawn RIGHT RADIAL
--- NOTE | 2022-10-21 11:46 | PC.NURSE ---
Pt somnolent this morning. Only moaning to light pain. Hospitalist, Pa, notified. PO meds on hold per hospitalist until pt more alert.
[2022-10-21 12:15] LABS: Glucose Point of Care 130 mg/dl (65-105)
--- NOTE | 2022-10-21 13:22 | PCPTNOTE ---
The patient treatment was not able to be completed today. RN reports patient is very somnolent and not responding to staff. Pt unable to participate in therapy. Will plan to continue treatment per plan of care.
[2022-10-21 14:00] VITALS: BP 152/78; PULSE 77; RESP 8; TEMP 37.2; O2SAT 97
--- NOTE | 2022-10-21 14:28 | PM.PNNEP ---
Progress Note: A&P Assessment and Plan (1) Anasarca: Code(s): R60.1 - Generalized edema Status: Acute Assessment and Plan: The patient has severe edema. Not a whole lot of protein in the urine. Echo was okay. Lungs are clear Possibly urinary retention was the main issue? Now has a Jenkins catheter in and is making urine. She is getting diuretics (2) HTN (hypertension): Code(s): I10 - Essential (primary) hypertension Status: Acute Assessment and Plan: Blood pressure ranging from 90s to 150s (3) Diabetes mellitus: Qualifiers: Diabetes mellitus type: type 2 Diabetes mellitus superintendent terminal insulin use: with superintendent terminal use Diabetes mellitus complication status: without complication Qualified Code(s): E11.9 - Type 2 diabetes mellitus without complications; Z79.4 - continuous churn buttermaker (current) use of insulin Code(s): E11.9 - Type 2 diabetes mellitus without complications Status: Chronic Assessment and Plan: On Accu-Cheks and sliding-scale insulin (4) Sleep apnea: Code(s): G47.30 - Sleep apnea, unspecified Status: Acute Assessment and Plan: She does not use a CPAP machine (5) COPD (chronic obstructive pulmonary disease): Code(s): J44.9 - Chronic obstructive pulmonary disease, unspecified Status: Acute Subjective Date/time seen: 10/21/22 14:28 Interval history: Patient is still sleepy. Looks more comfortable today. Peer week did not work so Jenkins catheter was placed this morning and 1900cc were in the bladder. Exam Narrative: WDWN sleepy but in NAD skin no rash head ncat lungs clear cor reg no rub abd BS+ nontender and soft ext 2 to3+ diffuse edema. Objective Data Vital Signs Vital Signs: Vital Signs - 24 hr 10/20/22 20:00 10/20/22 22:00 10/21/22 06:00 Temperature 98.4 F 98.0 F Pulse Rate 71 62 60 Respiratory Rate 18 16 16 Blood Pressure 96/54 L 99/56 L Pulse Oximetry 97 98 96 Oxygen Delivery Room Air 10/21/22 09:30 10/21/22 09:15 10/21/22 14:00 Temperature 98 F 98.9 F Pulse Rate 72 77 Respiratory Rate 7 L 8 L Blood Pressure 152/81 H 152/78 H Pulse Oximetry 100 97 Oxygen Delivery Room Air Intake/Output Intake/Output: Intake & Output 10/18/22 10/19/22 10/20/22 10/21/22 22:59 23:59 23:59 23:59 Intake Total 360 0 Output Total 300 2450 Balance 60 -2450 Meds/Results Medications: Active Medications Generic Name Dose Route Start Last Admin Trade Name Freq PRN Reason Stop Dose Admin Acetaminophen 650 mg 10/15/22 16:40 Acetaminophen 325 Mg Tablet PO Q4H PRN Mild Pain (1-3) or Fever Albuterol 2 puff 10/15/22 22:51 Albuterol Sulfate (*Sp) Aerosol 1 Puff INHALATION Q4H PRN Shortness Of Breath Alprazolam 1 mg 10/16/22 09:00 10/21/22 12:40 Alprazolam (*Crx) 0.5 Mg Tablet PO Not Given TID RAMONE Apixaban 5 mg 10/15/22 23:10 10/21/22 11:46 Apixaban 5 Mg Tablet PO Not Given Q12HR RAMONE Atorvastatin Calcium 20 mg 10/15/22 23:10 10/20/22 20:23 Atorvastatin 20 Mg Tablet PO 20 mg HS RAMONE Administration Bumetanide 1 mg 10/20/22 17:00 10/21/22 09:31 Bumetanide Inj 1 Mg/4 Ml Vial IV PUSH 1 mg BID RAMONE Administration Dextrose 12.5 gm 10/15/22 22:52 10/19/22 03:50 Dextrose 50% 25 Gm/50 Ml Syringe IV PUSH 12.5 gm PRN PRN Administration Hypoglycemia Protocol Docusate Sodium 100 mg 10/15/22 22:51 Docusate Sodium 100 Mg Capsule PO DAILY PRN Constipation Famotidine 20 mg 10/16/22 09:00 10/21/22 09:31 Famotidine 20 Mg/2 Ml Vial IV PUSH 20 mg Q12HR RAMONE Administration Ferrous Sulfate 324 mg 10/16/22 08:00 10/21/22 11:46 Ferrous Sulfate 324 Mg Tablet PO Not Given BIDWM RAMONE Furosemide 40 mg 10/19/22 14:00 10/21/22 13:54 Furosemide Inj 40 Mg/4 Ml Vial IV PUSH 40 mg Q8HR RAMONE Administration Gabapentin 300 mg 10/16/22 09:00 10/21/22 12:40
--- NOTE | 2022-10-21 15:44 | PM.IMPN ---
Progress Note: A&P Assessment and Plan (1) CHF (congestive heart failure): Code(s): I50.9 - Heart failure, unspecified Status: Acute Assessment and Plan: Started on IV Lasix 40 b.i.d. urine output not charted. Patient would be weighed daily. Echo from . Technically suboptimal study due to poor sonographic images. ? 2. Definity contrast administered improved wall motion interpretation. ? 3. Left ventricular chamber dimension is normal. ? 4. Left ventricular systolic function is normal, estimated at 60-65%. ? 5. There is mild concentric increased left ventricular wall thickness. ? 6. The left ventricular diastolic function is abnormal. ? 7. E/e' 19 is elevated. ? 8. There is mild aortic valve sclerosis. ? 9. The mitral valve has mildly calcified annulus. ? 10. No pulmonary hypertension, estimated pulmonary arterial systolic pressure is 27 mmHg. ? 11. There is trivial pericardial effusion. Continue lisinopril Continue with metoprolol 10/21/2022 interval history: patient remains somnolent, she is not responding to verbal instruction and just moans, she appears quite edematous thought she is getting Lasix 40mg IV q8, has anasarca however her albumin is low normal, patient was seen by tenter, added Bumetanide, today we placed Jenkins catheter and she had 1900cc out, and continue to urinate, Also called more the patient's contact Meño and give update requested to come visit the patient so far no show, for further recommendation, will monitor, (2) Diabetes: Code(s): E11.9 - Type 2 diabetes mellitus without complications Status: Acute Assessment and Plan: Accu-Cheks AC and HS with sliding scale insulin and hypoglycemic protocol Continue with Januvia Continue with Lantus Continue with glipizide Lower Lantus glipizide Januvia on hold currently will hold her Lantus Continues to be hypoglycemic on home insulin doses will hold insulin continue to monitor Started dextrose refer hypoglycemia. Off insulin continue dextrose and monitor Accu-Chek (3) Hyperlipidemia: Code(s): E78.5 - Hyperlipidemia, unspecified Status: Acute Assessment and Plan: Continue with atorvastatin (4) Obstructive sleep apnea: Code(s): G47.33 - Obstructive sleep apnea (adult) (pediatric) Status: Acute Assessment and Plan: The patient is noncompliant with her CPAP ABG with chronic hypercapnia (5) Gastroesophageal reflux disease: Code(s): K21.9 - Gastro-esophageal reflux disease without esophagitis Status: Acute Assessment and Plan: IV Pepcid (6) Bipolar disorder: Code(s): F31.9 - Bipolar disorder, unspecified Status: Acute Assessment and Plan: Continue with alprazolam (7) Anxiety: Code(s): F41.9 - Anxiety disorder, unspecified Status: Chronic Assessment and Plan: Continue with alprazolam Plan Abnormal growth to her left breast needs outpatient mammogram and ultrasound. Anemia drop 10/16/2022 with no obvious bleeding.: Labs reviewed 10/17/2022 with stable H&H. Chronic anemia baseline hemoglobin between 8-9 Status post pacemaker implantation DVT prophylaxis on Eliquis Peripheral neuropathy on gabapentin Subjective Date/time seen: 10/21/22 15:44 Started on IV Lasix 40 b.i.d. urine output not charted. Patient would be weighed daily. Echo from . Technically suboptimal study due to poor sonographic images. ? 2. Definity contrast administered improved wall motion interpretation. ? 3. Left ventricular chamber dimension is normal. ? 4. Left ventricular systolic function is normal, estimated at 60-65%. ? 5. There is mild concentric increased left ventricular wall thickness. ? 6. The left ventricular diastolic function is abnormal. ? 7. E/e' 19 is elevated. ? 8. There is mild aortic valve sclerosis. ? 9. The mitral valve has mildly calcified annulus. ? 10. No pulmonary hypertension, estimated pulmonary arterial systo
[2022-10-21 16:29] LABS: Glucose Point of Care 136 mg/dl (65-105)
[2022-10-21] MEDS: levETIRAcetam 500MG/NACL 100ML 500 MG/100 ML BAG 400 MG IVPB ×2 (16:39→20:05)
[2022-10-21 21:00] LABS: Glucose Point of Care 149 mg/dl (65-105)
[2022-10-21 22:00] VITALS: BP 157/81; PULSE 88; RESP 12; TEMP 36.7; O2SAT 89
[2022-10-22] MEDS: FUROSEMIDE INJ 40 MG/4 ML VIAL IV PUSH ×3 (05:28→20:27)
[2022-10-22 06:00] VITALS: BP 156/82; PULSE 90; RESP 16; TEMP 36.7; O2SAT 89
[2022-10-22 08:00] VITALS: O2SAT 96
[2022-10-22] MEDS: FAMOTIDINE 20 MG/2 ML VIAL IV PUSH ×2 (08:14→20:13)
[2022-10-22] MEDS: levETIRAcetam 500MG/NACL 100ML 500 MG/100 ML BAG 400 MG IVPB ×2 (08:14→20:14)
[2022-10-22] MEDS: BUMETANIDE INJ 1 MG/4 ML VIAL IV PUSH ×3 (08:14→20:13)
[2022-10-22] MEDS: TOLNAFTATE 1% POWDER 45 GM BTL 1 APPLIC TOPICAL ×2 (08:21→20:27)
[2022-10-22 08:24] LABS: Hematocrit 33.9 % (37.0-47.0); Hemoglobin 10.4 g/dL (12.0-15.0); Mean Corpuscular HGB Conc 30.7 g/dl (32-36); Mean Corpuscular Hemoglobin 28.5 pg (26-34); Mean Corpuscular Volume 92.9 fl (80-100); Mean Platelet Volume 9.4 fl (7.4-10.4); Platelet Count Result 243 k/mm3 (150-375); Red Blood Count 3.65 M/mm3 (4.2-5.4); Red Cell Distribution Width 14.7 % (11.5-14.5); White Blood Count 5.3 K/mm3 (4.5-10.0)
[2022-10-22 08:27] LABS: Glucose Point of Care 131 mg/dl (65-105)
[2022-10-22 08:42] LABS: Blood Urea Nitrogen 37 mg/dL (7-17); Calcium 9.5 mg/dL (8.4-10.2); Carbon Dioxide > 40 mmol/L (22-30); Chloride 94 mmol/L (98-107); Estimated Glomerular Filt Rate 53; Glucose 139 mg/dL (65-110); Magnesium 2.2 mg/dL (1.6-2.3); Potassium 4.3 mmol/L (3.4-5.0); Sodium 139 mmol/L (137-145)
--- NOTE | 2022-10-22 11:00 | PC.NURSE ---
Pt very drowsy this morning, but opens eyes to light touch. notified hospitalist, Pa. Continue to hold PO meds until pt is more alert.
[2022-10-22] MEDS: LORazepam INJ (*CRX) 2 MG/ML VIAL 0.5 MG IV PUSH (12:35)
[2022-10-22 12:53] LABS: Glucose Point of Care 130 mg/dl (65-105)
[2022-10-22 14:00] VITALS: BP 151/65; PULSE 80; RESP 10; TEMP 36.6; O2SAT 98
--- NOTE | 2022-10-22 14:15 | PCOTNOTE ---
Attempted to see patient this pm, however not appropriate at this time. Per RN, She's doing better. She's awake now. She ate lunch, but now she's down there just screaming.
--- NOTE | 2022-10-22 15:11 | PM.IMPN ---
Progress Note: A&P Assessment and Plan (1) CHF (congestive heart failure): Code(s): I50.9 - Heart failure, unspecified Status: Acute Assessment and Plan: Started on IV Lasix 40 b.i.d. urine output not charted. Patient would be weighed daily. Echo from . Technically suboptimal study due to poor sonographic images. ? 2. Definity contrast administered improved wall motion interpretation. ? 3. Left ventricular chamber dimension is normal. ? 4. Left ventricular systolic function is normal, estimated at 60-65%. ? 5. There is mild concentric increased left ventricular wall thickness. ? 6. The left ventricular diastolic function is abnormal. ? 7. E/e' 19 is elevated. ? 8. There is mild aortic valve sclerosis. ? 9. The mitral valve has mildly calcified annulus. ? 10. No pulmonary hypertension, estimated pulmonary arterial systolic pressure is 27 mmHg. ? 11. There is trivial pericardial effusion. Continue lisinopril Continue with metoprolol 10/22/2022 interval history: patient remains somnolent, she is responding to verbal instruction by opening her eyes and just moans, she appears quite edematous thought she is getting Lasix 40mg IV q8, has anasarca however her albumin is low normal, patient was seen by dehydrogenation converter operator, added Bumetanide, on 10/21 we placed Jenkins catheter and she had 4400cc out, and continue to urinate, Also called the patient's contact Meño and give update requested to come visit the patient so far no show, for further recommendation, will monitor, (2) Diabetes: Code(s): E11.9 - Type 2 diabetes mellitus without complications Status: Acute Assessment and Plan: Accu-Cheks AC and HS with sliding scale insulin and hypoglycemic protocol Continue with Januvia Continue with Lantus Continue with glipizide Lower Lantus glipizide Januvia on hold currently will hold her Lantus Continues to be hypoglycemic on home insulin doses will hold insulin continue to monitor Started dextrose refer hypoglycemia. Off insulin continue dextrose and monitor Accu-Chek (3) Hyperlipidemia: Code(s): E78.5 - Hyperlipidemia, unspecified Status: Acute Assessment and Plan: Continue with atorvastatin (4) Obstructive sleep apnea: Code(s): G47.33 - Obstructive sleep apnea (adult) (pediatric) Status: Acute Assessment and Plan: The patient is noncompliant with her CPAP ABG with chronic hypercapnia (5) Gastroesophageal reflux disease: Code(s): K21.9 - Gastro-esophageal reflux disease without esophagitis Status: Acute Assessment and Plan: IV Pepcid (6) Bipolar disorder: Code(s): F31.9 - Bipolar disorder, unspecified Status: Acute Assessment and Plan: Continue with alprazolam (7) Anxiety: Code(s): F41.9 - Anxiety disorder, unspecified Status: Chronic Assessment and Plan: Continue with alprazolam Plan Abnormal growth to her left breast needs outpatient mammogram and ultrasound. Anemia drop 10/16/2022 with no obvious bleeding.: Labs reviewed 10/17/2022 with stable H&H. Chronic anemia baseline hemoglobin between 8-9 Status post pacemaker implantation DVT prophylaxis on Eliquis Peripheral neuropathy on gabapentin Subjective Date/time seen: 10/22/22 15:11 Started on IV Lasix 40 b.i.d. urine output not charted. Patient would be weighed daily. Echo from . Technically suboptimal study due to poor sonographic images. ? 2. Definity contrast administered improved wall motion interpretation. ? 3. Left ventricular chamber dimension is normal. ? 4. Left ventricular systolic function is normal, estimated at 60-65%. ? 5. There is mild concentric increased left ventricular wall thickness. ? 6. The left ventricular diastolic function is abnormal. ? 7. E/e' 19 is elevated. ? 8. There is mild aortic valve sclerosis. ? 9. The mitral valve has mildly calcified annulus. ? 10. No pulmonary hypertension, estimated pulmonary
[2022-10-22] MEDS: ALPRAZolam (*CRX) 0.5 MG TABLET 1 MG PO (17:13)
[2022-10-22] MEDS: GABAPENTIN 300 MG CAPSULE PO (17:13)
[2022-10-22] MEDS: FERROUS SULFATE 324 MG TABLET PO (17:13)
[2022-10-22 17:33] LABS: Glucose Point of Care 151 mg/dl (65-105)
[2022-10-22 20:00] VITALS: PULSE 80; RESP 10; O2SAT 98
[2022-10-22 20:20] LABS: ANCA Screen Negative (Negative); Anti Glomerular Basement Memb <1.0 AI (<1.0)
[2022-10-22] MEDS: methocarbamoL 750 MG TABLET PO (20:21)
[2022-10-22] MEDS: APIXABAN 5 MG TABLET PO (20:21)
[2022-10-22 21:24] LABS: Glucose Point of Care 207 mg/dl (65-105)
[2022-10-22 21:48] VITALS: BP 152/53; PULSE 83; RESP 20; TEMP 36.1; O2SAT 99
[2022-10-23] MEDS: FUROSEMIDE INJ 40 MG/4 ML VIAL IV PUSH ×3 (05:57→20:38)
[2022-10-23 06:00] VITALS: BP 142/69; PULSE 77; RESP 20; TEMP 36.1; O2SAT 98
[2022-10-23 06:11] LABS: Hematocrit 29.6 % (37.0-47.0); Hemoglobin 9.2 g/dL (12.0-15.0); Mean Corpuscular HGB Conc 31.1 g/dl (32-36); Mean Corpuscular Hemoglobin 27.8 pg (26-34); Mean Corpuscular Volume 89.4 fl (80-100); Mean Platelet Volume 9.4 fl (7.4-10.4); Platelet Count Result 218 k/mm3 (150-375); Red Blood Count 3.31 M/mm3 (4.2-5.4); Red Cell Distribution Width 14.6 % (11.5-14.5); White Blood Count 4.2 K/mm3 (4.5-10.0)
[2022-10-23 06:55] LABS: Blood Urea Nitrogen 30 mg/dL (7-17); Calcium 9.3 mg/dL (8.4-10.2); Carbon Dioxide > 40 mmol/L (22-30); Chloride 91 mmol/L (98-107); Estimated Glomerular Filt Rate 48; Glucose 172 mg/dL (65-110); Magnesium 1.9 mg/dL (1.6-2.3); Potassium 3.5 mmol/L (3.4-5.0); Sodium 137 mmol/L (137-145)
[2022-10-23 08:28] LABS: Glucose Point of Care 173 mg/dl (65-105)
[2022-10-23] MEDS: POTASSIUM CHLORIDE INJ 40 MEQ in SODIUM CHLORIDE 0.9% IV 500 ML 130 MEQ IVPB (09:23)
[2022-10-23] MEDS: GABAPENTIN 300 MG CAPSULE PO ×3 (09:23→17:40)
[2022-10-23] MEDS: levETIRAcetam 500MG/NACL 100ML 500 MG/100 ML BAG 400 MG IVPB (09:23)
[2022-10-23] MEDS: FERROUS SULFATE 324 MG TABLET PO ×2 (09:24→17:40)
[2022-10-23] MEDS: FAMOTIDINE 20 MG/2 ML VIAL IV PUSH ×2 (09:24→20:37)
[2022-10-23] MEDS: APIXABAN 5 MG TABLET PO ×2 (09:24→20:38)
[2022-10-23] MEDS: LORATADINE 10 MG TABLET PO (09:25)
[2022-10-23] MEDS: TOLNAFTATE 1% POWDER 45 GM BTL 1 APPLIC TOPICAL ×2 (09:25→20:38)
[2022-10-23] MEDS: ALPRAZolam (*CRX) 0.5 MG TABLET 1 MG PO ×3 (09:32→17:39)
--- NOTE | 2022-10-23 11:27 | PCOTNOTE ---
Attempted to see pt for Occupational therapy treatment. Pt was unable to open eyes and respond to therapist despite verbal/sternal rubbing. Pt was able to turn her head towards therapist and moaned but did not open her eyes, etc. Due to pt's decrease alertness and lack of participation, will speak with OTR in regards to d/c pt from therapy. Spoke with RN about possible d/c and verbally agreed with NOLASCO and states that when pt is more appropriate the doctor can re order occupational therapy.
[2022-10-23 12:10] LABS: Glucose Point of Care 211 mg/dl (65-105)
[2022-10-23] MEDS: INSULIN ASPART (*BKC) 100 UNITS/ML SUB-Q ×2 (12:17→17:38)
[2022-10-23] MEDS: POTASSIUM CHLORIDE 20 MEQ PACKET (FOR LIQUID) 40 MEQ PO (12:18)
[2022-10-23] MEDS: DIPHENHYDRAMINE HCL 50 MG XX (13:20)
[2022-10-23] MEDS: SODIUM CHLORIDE 0.9% XX (13:20)
[2022-10-23 13:22] LABS: Lambda Light Chain 46.4 mg/L (5.7-26.3)
--- NOTE | 2022-10-23 15:01 | PM.IMPN ---
Progress Note: A&P Assessment and Plan (1) CHF (congestive heart failure): Code(s): I50.9 - Heart failure, unspecified Status: Acute Assessment and Plan: Started on IV Lasix 40 b.i.d. urine output not charted. Patient would be weighed daily. Echo from . Technically suboptimal study due to poor sonographic images. ? 2. Definity contrast administered improved wall motion interpretation. ? 3. Left ventricular chamber dimension is normal. ? 4. Left ventricular systolic function is normal, estimated at 60-65%. ? 5. There is mild concentric increased left ventricular wall thickness. ? 6. The left ventricular diastolic function is abnormal. ? 7. E/e' 19 is elevated. ? 8. There is mild aortic valve sclerosis. ? 9. The mitral valve has mildly calcified annulus. ? 10. No pulmonary hypertension, estimated pulmonary arterial systolic pressure is 27 mmHg. ? 11. There is trivial pericardial effusion. Continue lisinopril Continue with metoprolol 10/23/2022 interval history: patient remains somnolent, she is responding to verbal instruction by opening her eyes and just moans, today patient is little more cooperative and able to take her medication by mouth, she appears quite edematous thought she was getting Lasix 40mg IV q8, has anasarca however her albumin is low normal, patient was seen by airplane flight attendant, added Bumetanide, on 10/21 we placed Jenkins catheter and since then she has urinated 8800cc out,and continue to urinate,Patient be seen by Nephrology and further recommendation to follow, Also called the patient's contact Meño and give update requested to come visit the patient so far no show, for further recommendation, will monitor, (2) Diabetes: Code(s): E11.9 - Type 2 diabetes mellitus without complications Status: Acute Assessment and Plan: Accu-Cheks AC and HS with sliding scale insulin and hypoglycemic protocol Continue with Januvia Continue with Lantus Continue with glipizide Lower Lantus glipizide Januvia on hold currently will hold her Lantus Continues to be hypoglycemic on home insulin doses will hold insulin continue to monitor Started dextrose refer hypoglycemia. Off insulin continue dextrose and monitor Accu-Chek (3) Hyperlipidemia: Code(s): E78.5 - Hyperlipidemia, unspecified Status: Acute Assessment and Plan: Continue with atorvastatin (4) Obstructive sleep apnea: Code(s): G47.33 - Obstructive sleep apnea (adult) (pediatric) Status: Acute Assessment and Plan: The patient is noncompliant with her CPAP ABG with chronic hypercapnia (5) Gastroesophageal reflux disease: Code(s): K21.9 - Gastro-esophageal reflux disease without esophagitis Status: Acute Assessment and Plan: IV Pepcid (6) Bipolar disorder: Code(s): F31.9 - Bipolar disorder, unspecified Status: Acute Assessment and Plan: Continue with alprazolam (7) Anxiety: Code(s): F41.9 - Anxiety disorder, unspecified Status: Chronic Assessment and Plan: Continue with alprazolam Plan Abnormal growth to her left breast needs outpatient mammogram and ultrasound. Anemia drop 10/16/2022 with no obvious bleeding.: Labs reviewed 10/17/2022 with stable H&H. Chronic anemia baseline hemoglobin between 8-9 Status post pacemaker implantation DVT prophylaxis on Eliquis Peripheral neuropathy on gabapentin Subjective Date/time seen: 10/23/22 15:01 Started on IV Lasix 40 b.i.d. urine output not charted. Patient would be weighed daily. Echo from . Technically suboptimal study due to poor sonographic images. ? 2. Definity contrast administered improved wall motion interpretation. ? 3. Left ventricular chamber dimension is normal. ? 4. Left ventricular systolic function is normal, estimated at 60-65%. ? 5. There is mild concentric increased left ventricular wall thickness. ? 6. The left ventricular diastolic function is abnormal. ? 7.
[2022-10-23 15:06] VITALS: BP 150/65; PULSE 78; RESP 18; TEMP 36.7; O2SAT 92
--- NOTE | 2022-10-23 15:40 | PM.PNNEP ---
Progress Note: A&P Assessment and Plan (1) Anasarca: Code(s): R60.1 - Generalized edema Status: Acute Assessment and Plan: The patient has severe edema. Not a whole lot of protein in the urine. Echo was okay. Lungs are clear Possibly urinary retention was the main issue? Now has a Jenkins catheter in and is making urine. Output on Thursday was 3000, yesterday 2100, and overnight 3700. She is getting Furosemide. She cannot get metolazone due to sulfa allergy (2) HTN (hypertension): Code(s): I10 - Essential (primary) hypertension Status: Acute Assessment and Plan: Blood pressure ranging from 90s to 150s this should improve as the fluid comes off (3) Diabetes mellitus: Qualifiers: Diabetes mellitus type: type 2 Diabetes mellitus [facility] insulin use: with [facility] use Diabetes mellitus complication status: without complication Qualified Code(s): E11.9 - Type 2 diabetes mellitus without complications; Z79.4 - technician terminal and repeater (current) use of insulin Code(s): E11.9 - Type 2 diabetes mellitus without complications Status: Chronic Assessment and Plan: On Accu-Cheks and sliding-scale insulin (4) Sleep apnea: Code(s): G47.30 - Sleep apnea, unspecified Status: Acute Assessment and Plan: She does not use a CPAP machine (5) COPD (chronic obstructive pulmonary disease): Code(s): J44.9 - Chronic obstructive pulmonary disease, unspecified Status: Acute Subjective Date/time seen: 10/23/22 15:40 Interval history: Patient is more awake today. She is uncomfortable. She just had a JACC placed. This is causing some discomfort. Exam Narrative: WDWN sleepy but in NAD skin no rash head ncat lungs clear cor reg no rub abd BS+ nontender and soft ext 2 to3+ diffuse edema. Objective Data Vital Signs Vital Signs: Vital Signs - 24 hr 10/22/22 20:00 10/22/22 21:48 10/23/22 06:00 Temperature 96.9 F L 97.0 F L Pulse Rate 80 83 77 Respiratory Rate 10 L 20 20 Blood Pressure 152/53 H 142/69 H Pulse Oximetry 98 99 98 Oxygen Delivery Room Air 10/23/22 09:30 10/23/22 15:06 Temperature 98.1 F Pulse Rate 78 Respiratory Rate 18 Blood Pressure 150/65 H Pulse Oximetry 92 Oxygen Delivery Room Air Intake/Output Intake/Output: Intake & Output 10/20/22 10/21/22 10/22/22 10/23/22 23:59 23:59 23:59 23:59 Intake Total 270 856 8370 580 Output Total 300 3000 2100 3700 Balance 56 -4189 -711 -8159 Meds/Results Medications: Active Medications Generic Name Dose Route Start Last Admin Trade Name Freq PRN Reason Stop Dose Admin Albuterol 2 puff 10/15/22 22:51 Albuterol Sulfate (*Sp) Aerosol 1 Puff INHALATION Q4H PRN Shortness Of Breath Alprazolam 1 mg 10/16/22 09:00 10/23/22 12:18 Alprazolam (*Crx) 0.5 Mg Tablet PO 1 mg TID RAMONE Administration Apixaban 5 mg 10/15/22 23:10 10/23/22 09:24 Apixaban 5 Mg Tablet PO 5 mg Q12HR RAMONE Administration Atorvastatin Calcium 20 mg 10/15/22 23:10 10/22/22 20:26 Atorvastatin 20 Mg Tablet PO Not Given HS RAMONE Bumetanide 1 mg 10/20/22 17:00 10/22/22 20:13 Bumetanide Inj 1 Mg/4 Ml Vial IV PUSH 1 mg BID RAMONE Administration Dextrose 12.5 gm 10/15/22 22:52 10/19/22 03:50 Dextrose 50% 25 Gm/50 Ml Syringe IV PUSH 12.5 gm PRN PRN Administration Hypoglycemia Protocol Docusate Sodium 100 mg 10/15/22 22:51 Docusate Sodium 100 Mg Capsule PO DAILY PRN Constipation Famotidine 20 mg 10/16/22 09:00 10/23/22 09:24 Famotidine 20 Mg/2 Ml Vial IV PUSH 20 mg Q12HR RAMONE Administration Ferrous Sulfate 324 mg 10/16/22 08:00 10/23/22 09:24 Ferrous Sulfate 324 Mg Tablet PO 324 mg BIDWM RAMONE Administration Furosemide 40 mg 10/19/22 14:00 10/23/22 14:50 Furosemide Inj 40 Mg/4 Ml Vial IV PUSH 40 mg Q8HR RAMONE Administration Gabapentin 300 mg 10/16/22
[2022-10-23 17:10] LABS: Glucose Point of Care 241 mg/dl (65-105)
[2022-10-23] MEDS: BUMETANIDE INJ 1 MG/4 ML VIAL IV PUSH (17:40)
[2022-10-23] MEDS: CENTRAL LINE FLUSH 10 ML IV PUSH ×2 (17:40→20:39)
[2022-10-23 18:22] LABS: Complement Total CH50 >60 U/mL (31-60)
[2022-10-23] MEDS: ATORVASTATIN 20 MG TABLET PO (20:38)
[2022-10-23] MEDS: levETIRAcetam 500 MG TABLET PO (20:38)
[2022-10-23 20:44] LABS: Glucose Point of Care 193 mg/dl (65-105)
[2022-10-23 22:25] VITALS: BP 153/72; PULSE 74; RESP 21; TEMP 36.1; O2SAT 100
[2022-10-24] MEDS: CENTRAL LINE FLUSH 10 ML IV PUSH ×4 (05:39→20:41)
[2022-10-24] MEDS: CENTRAL LINE FLUSH 20 ML IV PUSH (05:39)
[2022-10-24] MEDS: FUROSEMIDE INJ 40 MG/4 ML VIAL IV PUSH ×3 (05:39→20:41)
[2022-10-24 06:00] VITALS: BP 160/73; PULSE 77; RESP 18; TEMP 36.1; O2SAT 96
[2022-10-24 06:06] LABS: Hematocrit 31.7 % (37.0-47.0); Hemoglobin 9.9 g/dL (12.0-15.0); Mean Corpuscular HGB Conc 31.2 g/dl (32-36); Mean Corpuscular Hemoglobin 28.9 pg (26-34); Mean Corpuscular Volume 92.4 fl (80-100); Mean Platelet Volume 9.7 fl (7.4-10.4); Platelet Count Result 223 k/mm3 (150-375); Red Blood Count 3.43 M/mm3 (4.2-5.4); Red Cell Distribution Width 14.7 % (11.5-14.5); White Blood Count 4.5 K/mm3 (4.5-10.0)
[2022-10-24 06:17] LABS: Blood Urea Nitrogen 27 mg/dL (7-17); Calcium 9.1 mg/dL (8.4-10.2); Carbon Dioxide > 40 mmol/L (22-30); Chloride 95 mmol/L (98-107); Estimated Glomerular Filt Rate 60; Glucose 172 mg/dL (65-110); Magnesium 1.8 mg/dL (1.6-2.3); Potassium 4.3 mmol/L (3.4-5.0); Sodium 141 mmol/L (137-145)
--- NOTE | 2022-10-24 07:42 | PCPTNOTE ---
PT has attempted to see patient for treatment daily from 10/19/2022 trough 10/23/2022 without success due to patient somnolent state and in ability to participate in therapy. Will discharge from PT services and await new orders when patient is able to participate.
[2022-10-24 08:35] LABS: Glucose Point of Care 182 mg/dl (65-105)
--- NOTE | 2022-10-24 08:46 | PM.PNNEP ---
Progress Note: A&P Assessment and Plan (1) Anasarca: Code(s): R60.1 - Generalized edema Status: Acute Assessment and Plan: The patient has severe edema. Not a whole lot of protein in the urine. Echo was okay. Lungs are clear Possibly urinary retention was the main issue? Now has a Jenkins catheter in and is making urine. Intake/output is 820/6050 She is getting furosemide 40 mg IV Q 8. CO2 is high. Potassium BUN and creatinine are okay. CO2 is high of so will add Diamox. There is a small chance of cross reactivity but recommendation stay just to observe for 2-4 hours if started as an outpatient. Her allergy to sulfa was hives not anaphylaxis. Discussed with Dr. Winn (2) HTN (hypertension): Code(s): I10 - Essential (primary) hypertension Status: Acute Assessment and Plan: Blood pressure ranging from 90s to 160s this should improve as the fluid comes off She met a lot of urine yesterday. Hopefully blood pressure will come down since (3) Diabetes mellitus: Qualifiers: Diabetes mellitus type: type 2 Diabetes mellitus custodial insulin use: with termite exterminator use Diabetes mellitus complication status: without complication Qualified Code(s): E11.9 - Type 2 diabetes mellitus without complications; Z79.4 - snf (current) use of insulin Code(s): E11.9 - Type 2 diabetes mellitus without complications Status: Chronic Assessment and Plan: On Accu-Cheks and sliding-scale insulin (4) Sleep apnea: Code(s): G47.30 - Sleep apnea, unspecified Status: Acute Assessment and Plan: She does not use a CPAP machine (5) COPD (chronic obstructive pulmonary disease): Code(s): J44.9 - Chronic obstructive pulmonary disease, unspecified Status: Acute Subjective Date/time seen: 10/24/22 08:46 Interval history: Patient is sleepy today. She was up at night more conversive. Breathing comfortably Exam Narrative: WDWN sleepy but in NAD skin no rash or subQ nodules head ncat lungs clear cor reg no rub abd BS+ nontender ext 2 to 3+ diffuse edema. Objective Data Vital Signs Vital Signs: Vital Signs - 24 hr 10/23/22 09:30 10/23/22 15:06 10/23/22 22:25 Temperature 98.1 F 97.0 F L Pulse Rate 78 74 Respiratory Rate 18 21 H Blood Pressure 150/65 H 153/72 H Pulse Oximetry 92 100 Oxygen Delivery Room Air 10/23/22 20:00 10/24/22 06:00 Temperature 97.0 F L Pulse Rate 77 Respiratory Rate 18 Blood Pressure 160/73 H Pulse Oximetry 96 Oxygen Delivery Room Air Intake/Output Intake/Output: Intake & Output 10/21/22 10/22/22 10/23/22 10/24/22 23:59 23:59 23:59 23:59 Intake Total 100 1442 820 300 Output Total 3000 2100 6050 1900 [facility]2900 -658 -5230 -1600 Meds/Results Medications: Active Medications Generic Name Dose Route Start Last Admin Trade Name Freq PRN Reason Stop Dose Admin Albuterol 2 puff 10/15/22 22:51 Albuterol Sulfate (*Sp) Aerosol 1 Puff INHALATION Q4H PRN Shortness Of Breath Alprazolam 1 mg 10/16/22 09:00 10/23/22 17:39 Alprazolam (*Crx) 0.5 Mg Tablet PO 1 mg TID RAMONE Administration Apixaban 5 mg 10/15/22 23:10 10/23/22 20:38 Apixaban 5 Mg Tablet PO 5 mg Q12HR RAMONE Administration Atorvastatin Calcium 20 mg 10/15/22 23:10 10/23/22 20:38 Atorvastatin 20 Mg Tablet PO 20 mg HS RAMONE Administration Bumetanide 1 mg 10/20/22 17:00 10/23/22 17:40 Bumetanide Inj 1 Mg/4 Ml Vial IV PUSH 1 mg BID RAMONE Administration Dextrose 12.5 gm 10/15/22 22:52 10/19/22 03:50 Dextrose 50% 25 Gm/50 Ml Syringe IV PUSH 12.5 gm PRN PRN Administration Hypoglycemia Protocol Docusate Sodium 100 mg 10/15/22 22:51 Docusate Sodium 100 Mg Capsule PO DAILY PRN Constipation Famotidine 20 mg 10/16/22 09:00 10/23/22 20:37 Famotidine 20 Mg/2 Ml Vial IV PUSH 20 mg Q12HR RAMONE Administration
[2022-10-24] MEDS: ALPRAZolam (*CRX) 0.5 MG TABLET 1 MG PO ×3 (09:24→17:36)
[2022-10-24] MEDS: BUMETANIDE INJ 1 MG/4 ML VIAL IV PUSH ×2 (09:25→17:36)
[2022-10-24] MEDS: FERROUS SULFATE 324 MG TABLET PO ×2 (09:25→17:36)
[2022-10-24] MEDS: TOLNAFTATE 1% POWDER 45 GM BTL 1 APPLIC TOPICAL ×2 (09:25→20:41)
[2022-10-24] MEDS: levETIRAcetam 500 MG TABLET PO ×2 (09:25→20:40)
[2022-10-24] MEDS: FAMOTIDINE 20 MG/2 ML VIAL IV PUSH ×2 (09:25→20:41)
[2022-10-24] MEDS: LORATADINE 10 MG TABLET PO (09:25)
[2022-10-24] MEDS: APIXABAN 5 MG TABLET PO ×2 (09:25→20:40)
[2022-10-24] MEDS: GABAPENTIN 300 MG CAPSULE PO ×3 (09:25→17:36)
--- NOTE | 2022-10-24 10:52 | PCNWS ---
Weekly nutritional screen. Patient is tolerating current diet with adequate intake. No weight loss reported. No nutritional needs at this time.
[2022-10-24 12:32] LABS: Glucose Point of Care 251 mg/dl (65-105)
[2022-10-24] MEDS: INSULIN ASPART (*BKC) 100 UNITS/ML SUB-Q ×2 (12:54→17:40)
[2022-10-24 14:00] VITALS: BP 145/69; PULSE 80; RESP 14; TEMP 36.7; O2SAT 95
--- NOTE | 2022-10-24 15:08 | PM.IMPN ---
Progress Note: A&P Assessment and Plan (1) CHF (congestive heart failure): Code(s): I50.9 - Heart failure, unspecified Status: Acute Assessment and Plan: Started on IV Lasix 40 b.i.d. urine output not charted. Patient would be weighed daily. Echo from . Technically suboptimal study due to poor sonographic images. ? 2. Definity contrast administered improved wall motion interpretation. ? 3. Left ventricular chamber dimension is normal. ? 4. Left ventricular systolic function is normal, estimated at 60-65%. ? 5. There is mild concentric increased left ventricular wall thickness. ? 6. The left ventricular diastolic function is abnormal. ? 7. E/e' 19 is elevated. ? 8. There is mild aortic valve sclerosis. ? 9. The mitral valve has mildly calcified annulus. ? 10. No pulmonary hypertension, estimated pulmonary arterial systolic pressure is 27 mmHg. ? 11. There is trivial pericardial effusion. Continue lisinopril Continue with metoprolol 10/24/2022 interval history: patient remains somnolent, she is responding to verbal instruction by opening her eyes and just moans, today patient is little more cooperative and able to take her medication by mouth, she appears quite edematous thought she was getting Lasix 40mg IV q8, has anasarca however her albumin is low normal, patient was seen by analyst business analysis, added Bumetanide, on 10/21 we placed Jenkins catheter and since then she has urinated [id number] out,and continue to urinate,Patient will be seen by Nephrology and further recommendation to follow, today patient is more alert states she is hungry wants eat will start on diabetic diet, Also called the patient's contact Meño and give update requested to come visit the patient so far no show, for further recommendation, will monitor, (2) Diabetes: Code(s): E11.9 - Type 2 diabetes mellitus without complications Status: Acute Assessment and Plan: Accu-Cheks AC and HS with sliding scale insulin and hypoglycemic protocol Continue with Januvia Continue with Lantus Continue with glipizide Lower Lantus glipizide Januvia on hold currently will hold her Lantus Continues to be hypoglycemic on home insulin doses will hold insulin continue to monitor Started dextrose refer hypoglycemia. Off insulin continue dextrose and monitor Accu-Chek (3) Hyperlipidemia: Code(s): E78.5 - Hyperlipidemia, unspecified Status: Acute Assessment and Plan: Continue with atorvastatin (4) Obstructive sleep apnea: Code(s): G47.33 - Obstructive sleep apnea (adult) (pediatric) Status: Acute Assessment and Plan: The patient is noncompliant with her CPAP ABG with chronic hypercapnia (5) Gastroesophageal reflux disease: Code(s): K21.9 - Gastro-esophageal reflux disease without esophagitis Status: Acute Assessment and Plan: IV Pepcid (6) Bipolar disorder: Code(s): F31.9 - Bipolar disorder, unspecified Status: Acute Assessment and Plan: Continue with alprazolam (7) Anxiety: Code(s): F41.9 - Anxiety disorder, unspecified Status: Chronic Assessment and Plan: Continue with alprazolam Plan Abnormal growth to her left breast needs outpatient mammogram and ultrasound. Anemia drop 10/16/2022 with no obvious bleeding.: Labs reviewed 10/17/2022 with stable H&H. Chronic anemia baseline hemoglobin between 8-9 Status post pacemaker implantation DVT prophylaxis on Eliquis Peripheral neuropathy on gabapentin Subjective Date/time seen: 10/24/22 15:08 Started on IV Lasix 40 b.i.d. urine output not charted. Patient would be weighed daily. Echo from . Technically suboptimal study due to poor sonographic images. ? 2. Definity contrast administered improved wall motion interpretation. ? 3. Left ventricular chamber dimension is normal. ? 4. Left ventricular systolic function is normal, estimated at 60-65%. ? 5. There is mild concentric increased le
[2022-10-24 17:15] LABS: Glucose Point of Care 278 mg/dl (65-105)
[2022-10-24 20:28] VITALS: BP 135/67; PULSE 76; RESP 16; TEMP 36.4; O2SAT 99
[2022-10-24] MEDS: ATORVASTATIN 20 MG TABLET PO (20:40)
[2022-10-24] MEDS: MELATONIN 5 MG TABLET 10 MG PO (20:41)
[2022-10-24] MEDS: INSULIN ASPART (*BKC) 100 UNITS/ML 8 UNITS SUB-Q (21:07)
[2022-10-25 00:37] LABS: Glucose Point of Care 223 mg/dl (65-105)
[2022-10-25 00:37] LABS: Glucose Point of Care 336 mg/dl (65-105)
[2022-10-25 05:06] VITALS: BP 115/60; PULSE 73; RESP 14; TEMP 36.6; O2SAT 95
[2022-10-25] MEDS: FUROSEMIDE INJ 40 MG/4 ML VIAL IV PUSH (05:16)
[2022-10-25] MEDS: CENTRAL LINE FLUSH 10 ML IV PUSH ×4 (05:17→21:11)
[2022-10-25 05:38] LABS: Hematocrit 34.3 % (37.0-47.0); Hemoglobin 10.7 g/dL (12.0-15.0); Mean Corpuscular HGB Conc 31.2 g/dl (32-36); Mean Corpuscular Hemoglobin 28.5 pg (26-34); Mean Corpuscular Volume 91.2 fl (80-100); Mean Platelet Volume 9.7 fl (7.4-10.4); Platelet Count Result 240 k/mm3 (150-375); Red Blood Count 3.76 M/mm3 (4.2-5.4); Red Cell Distribution Width 14.8 % (11.5-14.5); White Blood Count 6.4 K/mm3 (4.5-10.0)
[2022-10-25 06:40] LABS: Blood Urea Nitrogen 35 mg/dL (7-17); Calcium 8.8 mg/dL (8.4-10.2); Carbon Dioxide > 40 mmol/L (22-30); Chloride 92 mmol/L (98-107); Estimated Glomerular Filt Rate 28; Glucose 204 mg/dL (65-110); Magnesium 1.8 mg/dL (1.6-2.3); Sodium 138 mmol/L (137-145)
[2022-10-25 08:47] LABS: Glucose Point of Care 201 mg/dl (65-105)
[2022-10-25] MEDS: FERROUS SULFATE 324 MG TABLET PO ×2 (08:59→16:48)
[2022-10-25 09:00] VITALS: PULSE 73; RESP 14; O2SAT 95
[2022-10-25] MEDS: levETIRAcetam 500 MG TABLET PO ×2 (09:00→21:11)
[2022-10-25] MEDS: LORATADINE 10 MG TABLET PO (09:00)
[2022-10-25] MEDS: APIXABAN 5 MG TABLET PO ×2 (09:00→21:11)
[2022-10-25] MEDS: GABAPENTIN 300 MG CAPSULE PO ×3 (09:00→16:48)
[2022-10-25] MEDS: FAMOTIDINE 20 MG/2 ML VIAL IV PUSH ×2 (09:02→21:11)
[2022-10-25] MEDS: INSULIN ASPART (*BKC) 100 UNITS/ML SUB-Q ×3 (09:02→17:30)
[2022-10-25] MEDS: ALPRAZolam (*CRX) 0.5 MG TABLET 1 MG PO ×3 (09:06→16:48)
[2022-10-25] MEDS: TOLNAFTATE 1% POWDER 45 GM BTL 1 APPLIC TOPICAL ×2 (09:06→21:11)
--- NOTE | 2022-10-25 09:49 | PM.PNNEP ---
Progress Note: A&P Assessment and Plan (1) Anasarca: Code(s): R60.1 - Generalized edema Status: Acute Assessment and Plan: The patient has severe edema. Not a whole lot of protein in the urine. Echo was okay. Lungs are clear Possibly urinary retention was the main issue? Now has a Jenkins catheter in and is making urine. Intake/output is 1460/4600 She is getting furosemide 40 mg IV Q 8. Her creatinine neida to 1.9. Sodium and potassium are okay. Will hold off on the diuretics. CO2 is high but we are cutting back on diuretics so will hold the Diamox as well. Repeat labs tomorrow Discussed with Dr. Winn (2) HTN (hypertension): Code(s): I10 - Essential (primary) hypertension Status: Acute Assessment and Plan: Blood pressure ranging from 110 to 160. 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 Swelling looks better Exam Narrative: WDWN sleepy but in NAD skin no rash or subQ nodules head ncat lungs clear cor reg no rub abd BS+ nontender ext 2+ diffuse edema. Less in the presacral area Objective Data Vital Signs Vital Signs: Vital Signs - 24 hr 10/24/22 14:00 10/24/22 20:28 10/24/22 20:00 Temperature 98.1 F 97.6 F Pulse Rate 80 76 Respiratory Rate 14 16 Blood Pressure 145/69 H 135/67 Pulse Oximetry 95 99 Oxygen Delivery Room Air 03/18/23 05:06 Temperature 97.9 F Pulse Rate 73 Respiratory Rate 14 Blood Pressure 115/60 Pulse Oximetry 95 Oxygen Delivery Intake/Output Intake/Output: Intake & Output 10/22/22 10/23/22 10/24/22 10/25/22 23:59 23:59 23:59 23:59 Intake Total 4261 652 3933 Output Total 2100 9777 0502 2602 [facility]708 -[phone] Meds/Results Medications: Active Medications Generic Name Dose Route Start Last Admin Trade Name Freq PRN Reason Stop Dose Admin Albuterol 2 puff 10/15/22 22:51 Albuterol Sulfate (*Sp) Aerosol 1 Puff INHALATION Q4H PRN Shortness Of Breath Alprazolam 1 mg 10/16/22 09:00 10/25/22 09:06 Alprazolam (*Crx) 0.5 Mg Tablet PO 1 mg TID RAMONE Administration Apixaban 5 mg 10/15/22 23:10 10/25/22 09:00 Apixaban 5 Mg Tablet PO 5 mg Q12HR RAMONE Administration Atorvastatin Calcium 20 mg 10/15/22 23:10 10/24/22 20:40 Atorvastatin 20 Mg Tablet PO 20 mg HS RAMONE Administration Dextrose 12.5 gm 10/15/22 22:52 10/19/22 03:50 Dextrose 50% 25 Gm/50 Ml Syringe IV PUSH 12.5 gm PRN PRN Administration Hypoglycemia Protocol Docusate Sodium 100 mg 10/15/22 22:51 Docusate Sodium 100 Mg Capsule PO DAILY PRN Constipation Famotidine 20 mg 10/16/22 09:00 10/25/22 09:02 Famotidine 20 Mg/2 Ml Vial IV PUSH 20 mg Q12HR RAMONE Administration Ferrous Sulfate 324 mg 10/16/22 08:00 10/25/22 08:59 Ferrous Sulfate 324 Mg Tablet PO 324 mg BIDWM RAMONE Administration Gabapentin 300 mg 10/16/22 09:00 10/25/22 09:00 Gabapentin 300 Mg Capsule PO 300 mg TID RAMONE Administration Glucagon 1 mg 10/15/22 22:52 10/18/22 08:28 Glucagon For Inj 1 Mg Vial IM 1 mg PRN PRN A
[2022-10-25 12:21] LABS: Glucose Point of Care 213 mg/dl (65-105)
--- NOTE | 2022-10-25 13:07 | PM.IMPN ---
Progress Note: A&P Assessment and Plan (1) CHF (congestive heart failure): Code(s): I50.9 - Heart failure, unspecified Status: Acute Assessment and Plan: Started on IV Lasix 40 b.i.d. urine output not charted. Patient would be weighed daily. Echo from . Technically suboptimal study due to poor sonographic images. ? 2. Definity contrast administered improved wall motion interpretation. ? 3. Left ventricular chamber dimension is normal. ? 4. Left ventricular systolic function is normal, estimated at 60-65%. ? 5. There is mild concentric increased left ventricular wall thickness. ? 6. The left ventricular diastolic function is abnormal. ? 7. E/e' 19 is elevated. ? 8. There is mild aortic valve sclerosis. ? 9. The mitral valve has mildly calcified annulus. ? 10. No pulmonary hypertension, estimated pulmonary arterial systolic pressure is 27 mmHg. ? 11. There is trivial pericardial effusion. Continue lisinopril Continue with metoprolol 10/25/2022 interval history: patient remains somnolent, she is responding to verbal instruction by opening her eyes and just moans, today patient is little more cooperative and able to take her medication by mouth, she appears quite edematous thought she was getting Lasix 40mg IV q8, has anasarca however her albumin is low normal, patient was seen by military education coordinator, added Bumetanide, on 10/21 we placed Jenkins catheter and since then she has urinated [id number] out,and continue to urinate,today patient Scr is rising, discussed with her military education coordinator, Patient will be seen by Nephrology and further recommendation to follow, on 10/24 patient was more alert states she is hungry wants eat, startedt on diabetic diet, today patient is somnolent, Also called the patient's contact Meño and give update requested to come visit the patient so far no show, for further recommendation, will monitor, (2) Diabetes: Code(s): E11.9 - Type 2 diabetes mellitus without complications Status: Acute Assessment and Plan: Accu-Cheks AC and HS with sliding scale insulin and hypoglycemic protocol Continue with Januvia Continue with Lantus Continue with glipizide Lower Lantus glipizide Januvia on hold currently will hold her Lantus Continues to be hypoglycemic on home insulin doses will hold insulin continue to monitor Started dextrose refer hypoglycemia. Off insulin continue dextrose and monitor Accu-Chek (3) Hyperlipidemia: Code(s): E78.5 - Hyperlipidemia, unspecified Status: Acute Assessment and Plan: Continue with atorvastatin (4) Obstructive sleep apnea: Code(s): G47.33 - Obstructive sleep apnea (adult) (pediatric) Status: Acute Assessment and Plan: The patient is noncompliant with her CPAP ABG with chronic hypercapnia (5) Gastroesophageal reflux disease: Code(s): K21.9 - Gastro-esophageal reflux disease without esophagitis Status: Acute Assessment and Plan: IV Pepcid (6) Bipolar disorder: Code(s): F31.9 - Bipolar disorder, unspecified Status: Acute Assessment and Plan: Continue with alprazolam (7) Anxiety: Code(s): F41.9 - Anxiety disorder, unspecified Status: Chronic Assessment and Plan: Continue with alprazolam Plan Abnormal growth to her left breast needs outpatient mammogram and ultrasound. Anemia drop 10/16/2022 with no obvious bleeding.: Labs reviewed 10/17/2022 with stable H&H. Chronic anemia baseline hemoglobin between 8-9 Status post pacemaker implantation DVT prophylaxis on Eliquis Peripheral neuropathy on gabapentin Subjective Date/time seen: 10/25/22 13:07 Started on IV Lasix 40 b.i.d. urine output not charted. Patient would be weighed daily. Echo from . Technically suboptimal study due to poor sonographic images. ? 2. Definity contrast administered improved wall motion interpretation. ? 3. Left ventricular chamber dimension is normal. ? 4. Left ventricular
[2022-10-25 14:00] VITALS: BP 126/60; PULSE 72; RESP 20; TEMP 35.7; O2SAT 93
[2022-10-25 17:09] LABS: Glucose Point of Care 304 mg/dl (65-105)
[2022-10-25 20:42] VITALS: BP 116/59; PULSE 72; RESP 14; TEMP 36.4; O2SAT 96
[2022-10-25] MEDS: ATORVASTATIN 20 MG TABLET PO (21:11)
[2022-10-25] MEDS: MELATONIN 5 MG TABLET 10 MG PO (21:11)
[2022-10-25 21:41] LABS: Glucose Point of Care 343 mg/dl (65-105)
[2022-10-26 04:21] VITALS: BP 123/63; PULSE 87; RESP 16; TEMP 36.3; O2SAT 95
[2022-10-26] MEDS: INSULIN ASPART (*BKC) 100 UNITS/ML 8 UNITS SUB-Q (05:01)
[2022-10-26] MEDS: CENTRAL LINE FLUSH 10 ML IV PUSH (06:22)
[2022-10-26 06:31] LABS: Basophils Absolute Auto 0.1 K/mm3 (0.0-0.1); Basophils Percent Auto 0.8 % (0.2-1.2); Eosinophils Absolute Auto 0.5 K/mm3 (0-0.3); Eosinophils Percent Auto 7.6 % (0-4.4); Hematocrit 32.7 % (37.0-47.0); Hemoglobin 10.1 g/dL (12.0-15.0); Immature Granulocyte Absolute 0.01 K/mm3 (0.00-0.031); Immature Granulocyte Percent A 0.2 % (0-0.5); Lymphocytes Absolute Auto 1.49 K/mm3 (0.9-3.2); Lymphocytes Percent Auto 24.2 % (18.3-44.2); Mean Corpuscular HGB Conc 30.9 g/dl (32-36); Mean Corpuscular Hemoglobin 27.7 pg (26-34); Mean Corpuscular Volume 89.8 fl (80-100); Mean Platelet Volume 9.9 fl (7.4-10.4); Monocytes Absolute Auto 0.6 K/mm3 (0.1-0.6); Monocytes Percent Auto 9.8 % (2.6-8.5); Neutrophils Absolute Auto 3.5 K/mm3 (1.3-6.7); Neutrophils Percent Auto 57.4 % (45.5-73.1); Platelet Count Result 225 k/mm3 (150-375); Red Blood Count 3.64 M/mm3 (4.2-5.4); Red Cell Distribution Width 14.6 % (11.5-14.5); White Blood Count 6.2 K/mm3 (4.5-10.0)
[2022-10-26 06:43] LABS: Albumin Level 3.3 g/dL (3.5-5.1); Blood Urea Nitrogen 50 mg/dL (7-17); Calcium 8.3 mg/dL (8.4-10.2); Carbon Dioxide > 40 mmol/L (22-30); Chloride 92 mmol/L (98-107); Estimated Glomerular Filt Rate 37; Glucose 320 mg/dL (65-110); Magnesium 2.1 mg/dL (1.6-2.3); Phosphorus 4.5 mg/dL (2.5-4.5); Potassium 4.8 mmol/L (3.4-5.0); Sodium 137 mmol/L (137-145)
[2022-10-26] MEDS: GABAPENTIN 300 MG CAPSULE PO ×3 (08:22→17:09)
[2022-10-26] MEDS: FAMOTIDINE 20 MG/2 ML VIAL IV PUSH ×2 (08:22→21:08)
[2022-10-26] MEDS: APIXABAN 5 MG TABLET PO ×2 (08:23→21:08)
[2022-10-26] MEDS: levETIRAcetam 500 MG TABLET PO ×2 (08:23→23:36)
[2022-10-26] MEDS: FERROUS SULFATE 324 MG TABLET PO ×2 (08:23→17:09)
[2022-10-26] MEDS: LORATADINE 10 MG TABLET PO (08:23)
[2022-10-26] MEDS: TOLNAFTATE 1% POWDER 45 GM BTL 1 APPLIC TOPICAL ×2 (08:24→23:40)
[2022-10-26 08:28] LABS: Glucose Point of Care 305 mg/dl (65-105)
[2022-10-26 08:40] VITALS: PULSE 79; RESP 16; O2SAT 95
--- NOTE | 2022-10-26 08:40 | PM.PNNEP ---
Progress Note: A&P Assessment and Plan (1) Anasarca: Code(s): R60.1 - Generalized edema Status: Acute Assessment and Plan: The patient has severe edema. Not a whole lot of protein in the urine. Echo was okay. Lungs are clear Possibly urinary retention was the main issue? Now has a Jenkins catheter in and is making urine. Intake/output is 1100/1800 Off diuretics. Her creatinine fell to 1.5 off the diuretics. Will restart diuretics tomorrow at a lower dose. Sodium and potassium are okay. CO2 is high but we are cutting back on diuretics so will hold the Diamox as well. (2) HTN (hypertension): Code(s): I10 - Essential (primary) hypertension Status: Acute Assessment and Plan: Blood pressure ranging from 110 to 150. She came in on metoprolol and lisinopril. 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 Swelling is about the same. Resting comfortably in bed Exam Narrative: WDWN sleepy but in NAD skin no rash or subQ nodules head ncat lungs clear bilaterally cor reg no rub abd BS+ nontender Objective Data Vital Signs Vital Signs: Vital Signs - 24 hr 10/25/22 09:00 10/25/22 14:00 10/25/22 20:42 Temperature 96.2 F L 97.6 F Pulse Rate 73 72 72 Respiratory Rate 14 20 14 Blood Pressure 126/60 116/59 L Pulse Oximetry 95 93 96 Oxygen Delivery Room Air 10/25/22 20:00 10/26/22 04:21 Temperature 97.4 F L Pulse Rate 87 Respiratory Rate 16 Blood Pressure 123/63 Pulse Oximetry 95 Oxygen Delivery Room Air Intake/Output Intake/Output: Intake & Output 10/23/22 10/24/22 10/25/22 10/26/22 23:59 23:59 23:59 23:59 Intake Total 820 1462 1140 50 Output Total 6050 4600 1800 350 [facility]5230 -[phone] Meds/Results Medications: Active Medications Generic Name Dose Route Start Last Admin Trade Name Freq PRN Reason Stop Dose Admin Albuterol 2 puff 10/15/22 22:51 Albuterol Sulfate (*Sp) Aerosol 1 Puff INHALATION Q4H PRN Shortness Of Breath Alprazolam 1 mg 10/16/22 09:00 10/25/22 16:48 Alprazolam (*Crx) 0.5 Mg Tablet PO 1 mg TID RAMONE Administration Apixaban 5 mg 10/15/22 23:10 10/26/22 08:23 Apixaban 5 Mg Tablet PO 5 mg Q12HR RAMONE Administration Atorvastatin Calcium 20 mg 10/15/22 23:10 10/25/22 21:11 Atorvastatin 20 Mg Tablet PO 20 mg HS RAMONE Administration Dextrose 12.5 gm 10/15/22 22:52 10/19/22 03:50 Dextrose 50% 25 Gm/50 Ml Syringe IV PUSH 12.5 gm PRN PRN Administration Hypoglycemia Protocol Docusate Sodium 100 mg 10/15/22 22:51 Docusate Sodium 100 Mg Capsule PO DAILY PRN Constipation Famotidine 20 mg 10/16/22 09:00 10/26/22 08:22 Famotidine 20 Mg/2 Ml Vial IV PUSH 20 mg Q12HR RAMONE Administration Ferrous Sulfate 324 mg 10/16/22 08:00 10/26/22 08:23 Ferrous Sulfate 324 Mg Tablet PO 324 mg BIDWM RAMONE Administration Gabapentin 300 mg 10/16/22 09:00 10/26/22 08:22 Gabapentin 300 Mg Capsule PO 300 mg TID RAMONE Administration Glucagon 1 mg
[2022-10-26] MEDS: INSULIN ASPART (*BKC) 100 UNITS/ML SUB-Q ×3 (08:46→17:40)
[2022-10-26] MEDS: INSULIN GLARGINE (*BKC) 100 UNITS/ML 20 UNITS SUB-Q (08:53)
[2022-10-26 09:55] VITALS: PULSE 79
[2022-10-26] MEDS: METOPROLOL TARTRATE 25 MG TABLET PO ×2 (09:55→23:37)
[2022-10-26] MEDS: NEOMYCIN/POLYMYXIN/BACITRACIN OINTMENT PACKET 1 PACKET (11:20)
[2022-10-26 12:31] LABS: Glucose Point of Care 336 mg/dl (65-105)
--- NOTE | 2022-10-26 13:34 | PM.IMPN ---
Progress Note: A&P Assessment and Plan (1) CHF (congestive heart failure): Code(s): I50.9 - Heart failure, unspecified Status: Acute Assessment and Plan: Started on IV Lasix 40 b.i.d. urine output not charted. Patient would be weighed daily. Echo from . Technically suboptimal study due to poor sonographic images. ? 2. Definity contrast administered improved wall motion interpretation. ? 3. Left ventricular chamber dimension is normal. ? 4. Left ventricular systolic function is normal, estimated at 60-65%. ? 5. There is mild concentric increased left ventricular wall thickness. ? 6. The left ventricular diastolic function is abnormal. ? 7. E/e' 19 is elevated. ? 8. There is mild aortic valve sclerosis. ? 9. The mitral valve has mildly calcified annulus. ? 10. No pulmonary hypertension, estimated pulmonary arterial systolic pressure is 27 mmHg. ? 11. There is trivial pericardial effusion. Continue lisinopril Continue with metoprolol 10/26/2022 interval history: patient remains somnolent, she is responding to verbal instruction by opening her eyes and just moans, today patient is little more cooperative and able to take her medication by mouth, she appears quite edematous thought she was getting Lasix 40mg IV q8, has anasarca however her albumin is low normal, patient was seen by solar resource assessor, added Bumetanide, on 10/21 we placed Jenkins catheter and since then she has urinated [id number] out,and continue to urinate,today patient Scr is rising, discussed with her solar resource assessor, patient is off iv lasix and PO metalozone, currnetly on lasix 40mg PO, Patient will be seen by Nephrology and further recommendation to follow, on 10/24 patient was more alert states she is hungry wants eat, started on diabetic diet,, Also called the patient's contact Meño and give update requested to come visit the patient so far no show, for further recommendation, will monitor, (2) Diabetes: Code(s): E11.9 - Type 2 diabetes mellitus without complications Status: Acute Assessment and Plan: Accu-Cheks AC and HS with sliding scale insulin and hypoglycemic protocol Continue with Januvia Continue with Lantus Continue with glipizide Lower Lantus glipizide Januvia on hold currently will hold her Lantus Continues to be hypoglycemic on home insulin doses will hold insulin continue to monitor Started dextrose refer hypoglycemia. Off insulin continue dextrose and monitor Accu-Chek (3) Hyperlipidemia: Code(s): E78.5 - Hyperlipidemia, unspecified Status: Acute Assessment and Plan: Continue with atorvastatin (4) Obstructive sleep apnea: Code(s): G47.33 - Obstructive sleep apnea (adult) (pediatric) Status: Acute Assessment and Plan: The patient is noncompliant with her CPAP ABG with chronic hypercapnia (5) Gastroesophageal reflux disease: Code(s): K21.9 - Gastro-esophageal reflux disease without esophagitis Status: Acute Assessment and Plan: IV Pepcid (6) Bipolar disorder: Code(s): F31.9 - Bipolar disorder, unspecified Status: Acute Assessment and Plan: Continue with alprazolam (7) Anxiety: Code(s): F41.9 - Anxiety disorder, unspecified Status: Chronic Assessment and Plan: Continue with alprazolam Plan Abnormal growth to her left breast needs outpatient mammogram and ultrasound. Anemia drop 10/16/2022 with no obvious bleeding.: Labs reviewed 10/17/2022 with stable H&H. Chronic anemia baseline hemoglobin between 8-9 Status post pacemaker implantation DVT prophylaxis on Eliquis Peripheral neuropathy on gabapentin Subjective Date/time seen: 10/26/22 13:34 Started on IV Lasix 40 b.i.d. urine output not charted. Patient would be weighed daily. Echo from . Technically suboptimal study due to poor sonographic images. ? 2. Definity contrast administered improved wall motion interpretation. ? 3. Left ventricular chamber
[2022-10-26 14:00] VITALS: BP 123/63; PULSE 72; RESP 18; TEMP 36.3; O2SAT 99
[2022-10-26 17:02] LABS: Glucose Point of Care 353 mg/dl (65-105)
[2022-10-26 20:09] VITALS: BP 127/58; PULSE 74; RESP 16; TEMP 36.2; O2SAT 100
[2022-10-26] MEDS: ATORVASTATIN 20 MG TABLET PO (21:08)
[2022-10-26 22:10] LABS: Glucose Point of Care 330 mg/dl (65-105)
[2022-10-26] MEDS: MELATONIN 5 MG TABLET 10 MG PO (23:36)
[2022-10-26 23:37] VITALS: PULSE 79
[2022-10-27 04:28] VITALS: BP 141/68; PULSE 73; RESP 16; TEMP 36.6; O2SAT 95
[2022-10-27 05:12] LABS: Hematocrit 33.3 % (37.0-47.0); Hemoglobin 10.6 g/dL (12.0-15.0); Mean Corpuscular HGB Conc 31.8 g/dl (32-36); Mean Corpuscular Hemoglobin 28.3 pg (26-34); Mean Platelet Volume 10.1 fl (7.4-10.4); Platelet Count Result 220 k/mm3 (150-375); Red Blood Count 3.74 M/mm3 (4.2-5.4); Red Cell Distribution Width 14.4 % (11.5-14.5); White Blood Count 7.5 K/mm3 (4.5-10.0)
[2022-10-27 05:19] LABS: Albumin Level 3.5 g/dL (3.5-5.1); Anion Gap 2 mmol/L (8-16); Blood Urea Nitrogen 49 mg/dL (7-17); Calcium 8.5 mg/dL (8.4-10.2); Carbon Dioxide 38 mmol/L (22-30); Chloride 96 mmol/L (98-107); Estimated Glomerular Filt Rate 37; Glucose 279 mg/dL (65-110); Magnesium 2.1 mg/dL (1.6-2.3); Phosphorus 3.5 mg/dL (2.5-4.5); Potassium 3.9 mmol/L (3.4-5.0); Sodium 136 mmol/L (137-145)
[2022-10-27 08:39] VITALS: PULSE 69
[2022-10-27] MEDS: METOPROLOL TARTRATE 25 MG TABLET PO ×2 (08:39→20:15)
[2022-10-27 08:40] VITALS: PULSE 69; RESP 16; O2SAT 95
[2022-10-27] MEDS: APIXABAN 5 MG TABLET PO ×2 (08:42→20:15)
[2022-10-27] MEDS: FUROSEMIDE 40 MG TABLET PO (08:42)
[2022-10-27] MEDS: GABAPENTIN 300 MG CAPSULE PO ×3 (08:42→16:51)
[2022-10-27] MEDS: FERROUS SULFATE 324 MG TABLET PO ×2 (08:43→16:50)
[2022-10-27] MEDS: LORATADINE 10 MG TABLET PO (08:43)
[2022-10-27] MEDS: FAMOTIDINE 20 MG/2 ML VIAL IV PUSH ×2 (08:43→20:15)
[2022-10-27] MEDS: levETIRAcetam 500 MG TABLET PO ×2 (08:43→20:15)
[2022-10-27] MEDS: TOLNAFTATE 1% POWDER 45 GM BTL 1 APPLIC TOPICAL ×2 (08:46→20:15)
[2022-10-27 08:53] LABS: Glucose Point of Care 286 mg/dl (65-105)
[2022-10-27] MEDS: INSULIN ASPART (*BKC) 100 UNITS/ML SUB-Q ×3 (09:29→17:04)
[2022-10-27] MEDS: INSULIN GLARGINE (*BKC) 100 UNITS/ML 20 UNITS SUB-Q (09:31)
--- NOTE | 2022-10-27 10:28 | P.PNNP_ITS ---
Progress Note: A&P Assessment and Plan (1) Anasarca: Code(s): R60.1 - Generalized edema Status: Acute Assessment and Plan: * clinically improving * evaluation to date noted: * no significant proteinuria * Echo looks okay * clear lungs * suspect urinary retention may have been the major issue.... 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 Subjective Date/time seen: 10/27/22 10:28 Chart reviewed -- assuming care from Dr. White; per patient, swelling and edema is improving with current therapy; renal function relatively stable and or al diuretics started today; asking me when garner catheter can be removed; no other acute issues/complaints voiced at this time. Exam Narrative: General: WD/WN female in NAD Heart: normal S1 and S2; no rub Lungs: clear to auscultation Abdomen: soft, nontender, nondistended, positive bowel sounds Extremities: no cyanosis or clubbing; trace edema Skin: warm and dry Objective Data Vital Signs Vital Signs: Vital Signs Temp Pulse Resp BP Pulse Ox O2 Del Method 10/27/22 08:40 69 16 95 Room Air 10/27/22 08:39 69 10/27/22 04:28 98 F 73 16 141/68 H 95 10/26/22 23:37 79 10/26/22 20:00 Room Air 10/26/22 20:09 97.1 F L 74 16 127/58 L 100 10/26/22 14:00 97.3 F L 72 18 123/63 99 Intake/Output Intake/Output: Intake & Output 03/1710/25/22 10/26/22 10/27/22 23:59 23:59 23:59 23:59 Intake Total 1462 1140 1410 540 Output Total 4600 1800 1450 500 [facility]3138 -660 [phone] 40 Meds/Results Medications: Active Medications Generic Name Dose Route Start Last Admin Trade Name Freq PRN Reason Stop Dose Admin Albuterol 2 puff 10/15/22 22:51 Albuterol Sulfate (*Sp) Aerosol 1 Puff INHALATION Q4H PRN Shortness Of Breath Apixaban 5 mg 10/15/22 23:10 10/27/22 08:42 Apixaban 5 Mg Tablet PO 5 mg Q12HR RAMONE Administration Atorvastatin Calcium 20 mg 10/15/22 23:10 10/26/22 21:08 Atorvastatin 20 Mg Tablet PO 20 mg HS RAMONE Administration Dextrose 12.5 gm 10/15/22 22:52 10/19/22 03:50 Dextrose 50% 25 Gm/50 Ml Syringe IV PUSH 12.5 gm PRN PRN Administration Hypoglycemia Protocol Docusate Sodium 100 mg 10/15/22 22:51 Docusate Sodium 100 Mg Capsule PO
--- NOTE | 2022-10-27 10:28 | PM.PNNEP ---
Progress Note: A&P Assessment and Plan (1) Anasarca: Code(s): R60.1 - Generalized edema Status: Acute Assessment and Plan: clinically improving evaluation to date noted: no significant proteinuria Echo looks okay clear lungs suspect urinary retention may have been the major issue.... 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 Subjective Date/time seen: 10/27/22 10:28 Chart reviewed -- assuming care from Dr. White; per patient, swelling and edema is improving with current therapy; renal function relatively stable and oral diuretics started today; asking me when garner catheter can be removed; no other acute issues/complaints voiced at this time. Exam Narrative: General: WD/WN female in NAD Heart: normal S1 and S2; no rub Lungs: clear to auscultation Abdomen: soft, nontender, nondistended, positive bowel sounds Extremities: no cyanosis or clubbing; trace edema Skin: warm and dry Objective Data Vital Signs Vital Signs: Vital Signs Temp Pulse Resp BP Pulse Ox O2 Del Method 10/27/22 08:40 69 16 95 Room Air 10/27/22 08:39 69 10/27/22 04:28 98 F 73 16 141/68 H 95 10/26/22 23:37 79 10/26/22 20:00 Room Air 10/26/22 20:09 97.1 F L 74 16 127/58 L 100 10/26/22 14:00 97.3 F L 72 18 123/63 99 Intake/Output Intake/Output: Intake & Output 10/24/22 10/25/22 10/26/22 10/27/22 23:59 23:59 23:59 23:59 Intake Total 1462 1140 1410 540 Output Total 4600 1800 1450 500 [facility] -[phone] -[phone] 40 Meds/Results Medications: Active Medications Generic Name Dose Route Start Last Admin Trade Name Freq PRN Reason Stop Dose Admin Albuterol 2 puff 10/15/22 22:51 Albuterol Sulfate (*Sp) Aerosol 1 Puff INHALATION Q4H PRN Shortness Of Breath Apixaban 5 mg 10/15/22 23:10 10/27/22 08:42 Apixaban 5 Mg Tablet PO 5 mg Q12HR RAMONE Administration Atorvastatin Calcium 20 mg 10/15/22 23:10 10/26/22 21:08 Atorvastatin 20 Mg Tablet PO 20 mg HS RAMONE Administration Dextrose 12.5 gm 10/15/22 22:52 10/19/22 03:50 Dextrose 50% 25 Gm/50 Ml Syringe IV PUSH 12.5 gm PRN PRN Administration Hypoglycemia Protocol Docusate Sodium 100 mg 10/15/22 22:51 Docusate Sodium 100 Mg Capsule PO DAILY PRN Constipation Famotidine 20 mg 10/16/22 09:00 10/27/22 08:43 Famotidine 20 Mg/2 Ml Vial IV PUSH 20 mg Q12HR RAMONE Administration Ferrous Sulfate 324 mg 10/16/22 08:00 10/27/22 08:43 Ferrous Sulfate 324 Mg Tablet PO 324 mg BIDWM RAMONE Administration Furosemide 40 mg 10/27/22 09:00 10/27/22 08:42 Furosemide 40 Mg Tablet PO 40 mg DAILY RAMONE Administration Gabapentin 300 mg 10/16/22 09:00 10/27/22 08:42 Gabapentin 300 Mg Capsule PO 300 mg TID RAMONE Administration Glucagon 1 mg 10/15/22 22:52 10/18/22 08:28 Glucagon For Inj 1 Mg Vial IM 1 mg PRN PRN Administration Hypoglycemia Protocol Glucose 15 gm 10/15/22 22:52 10/19/22 01:51 Glucose Oral Gel 15 Gm Of Glucse In 37.5 Gm Tube PO 15 gm PRN PRN Administration Hypoglycemia Protocol Dex
[2022-10-27 11:59] LABS: Glucose Point of Care 309 mg/dl (65-105)
[2022-10-27 14:00] VITALS: BP 141/70; PULSE 77; RESP 18; TEMP 36.4; O2SAT 96
--- NOTE | 2022-10-27 16:37 | PM.IMPN ---
Progress Note: A&P Assessment and Plan (1) CHF (congestive heart failure): Code(s): I50.9 - Heart failure, unspecified Status: Acute Assessment and Plan: Started on IV Lasix 40 b.i.d. urine output not charted. Patient would be weighed daily. Echo from . Technically suboptimal study due to poor sonographic images. ? 2. Definity contrast administered improved wall motion interpretation. ? 3. Left ventricular chamber dimension is normal. ? 4. Left ventricular systolic function is normal, estimated at 60-65%. ? 5. There is mild concentric increased left ventricular wall thickness. ? 6. The left ventricular diastolic function is abnormal. ? 7. E/e' 19 is elevated. ? 8. There is mild aortic valve sclerosis. ? 9. The mitral valve has mildly calcified annulus. ? 10. No pulmonary hypertension, estimated pulmonary arterial systolic pressure is 27 mmHg. ? 11. There is trivial pericardial effusion. Continue lisinopril Continue with metoprolol 10/27/2022 interval history: patient remains somnolent, she is responding to verbal instruction by opening her eyes and just moans, today patient is little more cooperative and able to take her medication by mouth, she appears quite edematous thought she was getting Lasix 40mg IV q8, has anasarca however her albumin is low normal, patient was seen by child day care provider, added Bumetanide, on 10/21 we placed Jenkins catheter and since then she has urinated [id number] out,and continue to urinate,today patient Scr is rising, discussed with her child day care provider, patient is off iv lasix and PO metalozone, currnetly on lasix 40mg PO, Patient will be seen by Nephrology and further recommendation to follow, on 10/24 patient was more alert states she is hungry wants eat, started on diabetic diet,, today patient is little more awake was able to work with the PT sat in the chair, patient clinical symptoms are improved will continue PT/OT, Also called the patient's contact Meño and give update requested to come visit the patient so far no show, for further recommendation, will monitor, (2) Diabetes: Code(s): E11.9 - Type 2 diabetes mellitus without complications Status: Acute Assessment and Plan: Accu-Cheks AC and HS with sliding scale insulin and hypoglycemic protocol Continue with Januvia Continue with Lantus Continue with glipizide Lower Lantus glipizide Januvia on hold currently will hold her Lantus Continues to be hypoglycemic on home insulin doses will hold insulin continue to monitor Started dextrose refer hypoglycemia. Off insulin continue dextrose and monitor Accu-Chek (3) Hyperlipidemia: Code(s): E78.5 - Hyperlipidemia, unspecified Status: Acute Assessment and Plan: Continue with atorvastatin (4) Obstructive sleep apnea: Code(s): G47.33 - Obstructive sleep apnea (adult) (pediatric) Status: Acute Assessment and Plan: The patient is noncompliant with her CPAP ABG with chronic hypercapnia (5) Gastroesophageal reflux disease: Code(s): K21.9 - Gastro-esophageal reflux disease without esophagitis Status: Acute Assessment and Plan: IV Pepcid (6) Bipolar disorder: Code(s): F31.9 - Bipolar disorder, unspecified Status: Acute Assessment and Plan: Continue with alprazolam (7) Anxiety: Code(s): F41.9 - Anxiety disorder, unspecified Status: Chronic Assessment and Plan: Continue with alprazolam Plan Abnormal growth to her left breast needs outpatient mammogram and ultrasound. Anemia drop 10/16/2022 with no obvious bleeding.: Labs reviewed 10/17/2022 with stable H&H. Chronic anemia baseline hemoglobin between 8-9 Status post pacemaker implantation DVT prophylaxis on Eliquis Peripheral neuropathy on gabapentin Subjective Date/time seen: 10/27/22 16:37 Started on IV Lasix 40 b.i.d. urine output not charted. Patient would be weighed daily. Echo from . Technically suboptima
[2022-10-27 16:54] LABS: Glucose Point of Care 407 mg/dl (65-105)
[2022-10-27 17:34] LABS: Glucose Point of Care 428 mg/dl (65-105)
[2022-10-27] MEDS: INSULIN ASPART (*BKC) 100 UNITS/ML 8 UNITS SUB-Q (17:38)
[2022-10-27] MEDS: INSULIN GLARGINE (*BKC) 100 UNITS/ML 10 UNITS SUB-Q (17:39)
[2022-10-27 20:15] VITALS: PULSE 70
[2022-10-27] MEDS: MELATONIN 5 MG TABLET 10 MG PO (20:15)
[2022-10-27] MEDS: ATORVASTATIN 20 MG TABLET PO (20:15)
[2022-10-27 20:59] LABS: Glucose Point of Care 385 mg/dl (65-105)
[2022-10-27 21:13] VITALS: BP 102/53; PULSE 72; RESP 18; TEMP 36.4; O2SAT 97
[2022-10-28 05:03] VITALS: BP 144/69; PULSE 70; RESP 18; TEMP 36.7; O2SAT 100
[2022-10-28 05:47] LABS: Hematocrit 35.5 % (37.0-47.0); Hemoglobin 10.9 g/dL (12.0-15.0); Mean Corpuscular HGB Conc 30.7 g/dl (32-36); Mean Corpuscular Hemoglobin 28.4 pg (26-34); Mean Corpuscular Volume 92.4 fl (80-100); Mean Platelet Volume 10.6 fl (7.4-10.4); Platelet Count Result 214 k/mm3 (150-375); Red Blood Count 3.84 M/mm3 (4.2-5.4); Red Cell Distribution Width 14.6 % (11.5-14.5); White Blood Count 5.7 K/mm3 (4.5-10.0)
[2022-10-28 05:58] LABS: Anion Gap 2 mmol/L (8-16); Blood Urea Nitrogen 58 mg/dL (7-17); Calcium 8.5 mg/dL (8.4-10.2); Carbon Dioxide 37 mmol/L (22-30); Chloride 95 mmol/L (98-107); Estimated Glomerular Filt Rate 44; Glucose 358 mg/dL (65-110); Magnesium 2.4 mg/dL (1.6-2.3); Potassium 3.7 mmol/L (3.4-5.0); Sodium 134 mmol/L (137-145)
[2022-10-28 08:25] LABS: Glucose Point of Care 332 mg/dl (65-105)
[2022-10-28 08:50] VITALS: PULSE 72
[2022-10-28] MEDS: METOPROLOL TARTRATE 25 MG TABLET PO ×2 (08:50→20:38)
[2022-10-28] MEDS: FAMOTIDINE 20 MG/2 ML VIAL IV PUSH ×2 (08:50→20:38)
[2022-10-28] MEDS: FERROUS SULFATE 324 MG TABLET PO ×2 (08:50→17:46)
[2022-10-28] MEDS: levETIRAcetam 500 MG TABLET PO ×2 (08:51→20:37)
[2022-10-28] MEDS: GABAPENTIN 300 MG CAPSULE PO ×3 (08:51→17:46)
[2022-10-28] MEDS: FUROSEMIDE 40 MG TABLET PO (08:51)
[2022-10-28] MEDS: LORATADINE 10 MG TABLET PO (08:51)
[2022-10-28] MEDS: APIXABAN 5 MG TABLET PO ×2 (08:52→20:38)
[2022-10-28] MEDS: TOLNAFTATE 1% POWDER 45 GM BTL 1 APPLIC TOPICAL ×2 (08:53→20:40)
[2022-10-28] MEDS: INSULIN GLARGINE (*BKC) 100 UNITS/ML 20 UNITS SUB-Q ×3 (08:54→21:32)
[2022-10-28 08:55] VITALS: PULSE 72; RESP 18; O2SAT 100
[2022-10-28] MEDS: INSULIN ASPART (*BKC) 100 UNITS/ML SUB-Q ×3 (08:55→17:48)
--- NOTE | 2022-10-28 10:25 | P.PNNP_ITS ---
Progress Note: A&P Assessment and Plan (1) Anasarca: Code(s): R60.1 - Generalized edema Status: Acute Assessment and Plan: * clinically improving * evaluation to date noted: * no significant proteinuria * Echo looks okay * clear lungs * suspect urinary retention may have been the major issue.... 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 Subjective Date/time seen: 10/28/22 10:25 Swelling/edema seems stable if not better; improvement in renal function noted in the last 24 - 48 hours; tolerating oral diuretic therapy; no other acute issues or problems voiced. Exam Narrative: General: WD/WN female in NAD Heart: normal S1 and S2; no rub Lungs: clear to auscultation Abdomen: soft, nontender, nondistended, positive bowel sounds Extremities: no cyanosis or clubbing; trace edema Skin: warm and intact Objective Data Vital Signs Vital Signs: Vital Signs Temp Pulse Resp BP Pulse Ox O2 Del Method 10/28/22 08:55 72 18 100 Room Air 10/28/22 08:50 72 10/28/22 05:03 98.0 F 70 18 144/69 H 100 10/27/22 21:13 97.5 F L 72 18 102/53 L 97 10/27/22 20:00 Room Air 10/27/22 20:15 70 10/27/22 14:22 Room Air 10/27/22 14:00 97.6 F 77 18 141/70 H 96 Intake/Output Intake/Output: Intake & Output 10/25/22 10/26/22 10/27/2210/28/23 23:59 23:59 23:59 23:59 Intake Total 1140 1410 1500 910 Output Total 1800 1450 1000 550 Balance -660 -40 500 360 Meds/Results Medications: Active Medications Generic Name Dose Route Start Last Admin Trade Name Freq PRN Reason Stop Dose Admin Albuterol 2 puff 10/15/22 22:51 Albuterol Sulfate (*Sp) Aerosol 1 Puff INHALATION Q4H PRN Shortness Of Breath Apixaban 5 mg 10/15/22 23:10 10/28/22 08:52 Apixaban 5 Mg Tablet PO 5 mg Q12HR RAMONE Administration Atorvastatin Calcium 20 mg 10/15/22 23:10 10/27/22 20:15 Atorvastatin 20 Mg Tablet PO 20 mg HS RAMONE Administration Dextrose 12.5 gm 10/15/22 22:52 10/19/22 03:50 Dextrose 50% 25 Gm/50 Ml Syringe IV PUSH 12.5 gm PRN PRN Administration Hypoglycemia Protocol Docusate Sodium 100 mg 10/15/22 22:51 Docusate Sodium 100 Mg Capsule PO DAILY PRN Constip
--- NOTE | 2022-10-28 10:25 | PM.PNNEP ---
Progress Note: A&P Assessment and Plan (1) Anasarca: Code(s): R60.1 - Generalized edema Status: Acute Assessment and Plan: clinically improving evaluation to date noted: no significant proteinuria Echo looks okay clear lungs suspect urinary retention may have been the major issue.... 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 Subjective Date/time seen: 10/28/22 10:25 Swelling/edema seems stable if not better; improvement in renal function noted in the last 24 - 48 hours; tolerating oral diuretic therapy; no other acute issues or problems voiced. Exam Narrative: General: WD/WN female in NAD Heart: normal S1 and S2; no rub Lungs: clear to auscultation Abdomen: soft, nontender, nondistended, positive bowel sounds Extremities: no cyanosis or clubbing; trace edema Skin: warm and intact Objective Data Vital Signs Vital Signs: Vital Signs Temp Pulse Resp BP Pulse Ox O2 Del Method 10/28/22 08:55 72 18 100 Room Air 10/28/22 08:50 72 10/28/22 05:03 98.0 F 70 18 144/69 H 100 10/27/22 21:13 97.5 F L 72 18 102/53 L 97 10/27/22 20:00 Room Air 10/27/22 20:15 70 10/27/22 14:22 Room Air 10/27/22 14:00 97.6 F 77 18 141/70 H 96 Intake/Output Intake/Output: Intake & Output 10/25/22 10/26/22 10/27/22 10/28/22 23:59 23:59 23:59 23:59 Intake Total 1140 1410 1500 910 Output Total 1800 1450 1000 550 Balance -660 -40 500 360 Meds/Results Medications: Active Medications Generic Name Dose Route Start Last Admin Trade Name Freq PRN Reason Stop Dose Admin Albuterol 2 puff 10/15/22 22:51 Albuterol Sulfate (*Sp) Aerosol 1 Puff INHALATION Q4H PRN Shortness Of Breath Apixaban 5 mg 10/15/22 23:10 10/28/22 08:52 Apixaban 5 Mg Tablet PO 5 mg Q12HR RAMONE Administration Atorvastatin Calcium 20 mg 10/15/22 23:10 10/27/22 20:15 Atorvastatin 20 Mg Tablet PO 20 mg HS RAMONE Administration Dextrose 12.5 gm 10/15/22 22:52 10/19/22 03:50 Dextrose 50% 25 Gm/50 Ml Syringe IV PUSH 12.5 gm PRN PRN Administration Hypoglycemia Protocol Docusate Sodium 100 mg 10/15/22 22:51 Docusate Sodium 100 Mg Capsule PO DAILY PRN Constipation Famotidine 20 mg 10/16/22 09:00 10/28/22 08:50 Famotidine 20 Mg/2 Ml Vial IV PUSH 20 mg Q12HR RAMONE Administration Ferrous Sulfate 324 mg 10/16/22 08:00 10/28/22 08:50 Ferrous Sulfate 324 Mg Tablet PO 324 mg BIDWM RAMONE Administration Furosemide 40 mg 10/27/22 09:00 10/28/22 08:51 Furosemide 40 Mg Tablet PO 40 mg DAILY RAMONE Administration Gabapentin 300 mg 10/16/22 09:00 10/28/22 08:51 Gabapentin 300 Mg Capsule PO 300 mg TID RAMONE Administration Glucagon 1 mg 10/15/22 22:52 10/18/22 08:28 Glucagon For Inj 1 Mg Vial IM 1 mg PRN PRN Administration Hypoglycemia Protocol Glucose 15 gm 10/15/22 22:52 10/19/22 01:51 Glucose Oral Gel 15 Gm Of Glucse In 37.5 Gm Tube PO 15 gm PRN PRN Administration Hypoglycemia Protocol Dextrose 1,000 mls @ 100 mls/hr 10/15/22 22:52 10/19/22 0
[2022-10-28 11:56] LABS: Glucose Point of Care 372 mg/dl (65-105)
[2022-10-28] MEDS: polyethylene glycoL 3350 17 GM POWD.PACK PO (12:33)
[2022-10-28 14:00] VITALS: BP 149/79; PULSE 73; RESP 16; TEMP 36.2; O2SAT 100
[2022-10-28 17:09] LABS: Glucose Point of Care 282 mg/dl (65-105)
--- NOTE | 2022-10-28 18:13 | PM.IMPN ---
Progress Note: A&P Assessment and Plan (1) CHF (congestive heart failure): Code(s): I50.9 - Heart failure, unspecified Status: Acute Assessment and Plan: Started on IV Lasix 40 b.i.d. urine output not charted. Patient would be weighed daily. Echo from . Technically suboptimal study due to poor sonographic images. ? 2. Definity contrast administered improved wall motion interpretation. ? 3. Left ventricular chamber dimension is normal. ? 4. Left ventricular systolic function is normal, estimated at 60-65%. ? 5. There is mild concentric increased left ventricular wall thickness. ? 6. The left ventricular diastolic function is abnormal. ? 7. E/e' 19 is elevated. ? 8. There is mild aortic valve sclerosis. ? 9. The mitral valve has mildly calcified annulus. ? 10. No pulmonary hypertension, estimated pulmonary arterial systolic pressure is 27 mmHg. ? 11. There is trivial pericardial effusion. Continue lisinopril Continue with metoprolol 10/28/2022 interval history: patient remains somnolent, she is responding to verbal instruction by opening her eyes and just moans, today patient is little more cooperative and able to take her medication by mouth, she appears quite edematous thought she was getting Lasix 40mg IV q8, has anasarca however her albumin is low normal, patient was seen by test boring crew chief, added Bumetanide, on 10/21 we placed Jenkins catheter and since then she has urinated [id number] out,and continue to urinate,today patient Scr is rising, discussed with her test boring crew chief, patient is off iv lasix and PO metalozone, currnetly on lasix 40mg PO, Patient will be seen by Nephrology and further recommendation to follow, on 10/24 patient was more alert states she is hungry wants eat, started on diabetic diet,, on 10/27 patient was little more awake was able to work with the PT sat in the chair, patient clinical symptoms are improved will continue PT/OT, today discuss with patient nurse, patient's blood sugars trending up as patient eating more currently on lantus 20units am and 10 units at bedtime moderate sliding scale, Also called the patient's contact Meño and lizandro update requested to come visit the patient so far no show, for further recommendation, will monitor, (2) Diabetes: Code(s): E11.9 - Type 2 diabetes mellitus without complications Status: Acute Assessment and Plan: Accu-Cheks AC and HS with sliding scale insulin and hypoglycemic protocol Continue with Januvia Continue with Lantus Continue with glipizide Lower Lantus glipizide Januvia on hold currently will hold her Lantus Continues to be hypoglycemic on home insulin doses will hold insulin continue to monitor Started dextrose refer hypoglycemia. Off insulin continue dextrose and monitor Accu-Chek (3) Hyperlipidemia: Code(s): E78.5 - Hyperlipidemia, unspecified Status: Acute Assessment and Plan: Continue with atorvastatin (4) Obstructive sleep apnea: Code(s): G47.33 - Obstructive sleep apnea (adult) (pediatric) Status: Acute Assessment and Plan: The patient is noncompliant with her CPAP ABG with chronic hypercapnia (5) Gastroesophageal reflux disease: Code(s): K21.9 - Gastro-esophageal reflux disease without esophagitis Status: Acute Assessment and Plan: IV Pepcid (6) Bipolar disorder: Code(s): F31.9 - Bipolar disorder, unspecified Status: Acute Assessment and Plan: Continue with alprazolam (7) Anxiety: Code(s): F41.9 - Anxiety disorder, unspecified Status: Chronic Assessment and Plan: Continue with alprazolam Plan Abnormal growth to her left breast needs outpatient mammogram and ultrasound. Anemia drop 10/16/2022 with no obvious bleeding.: Labs reviewed 10/17/2022 with stable H&H. Chronic anemia baseline hemoglobin between 8-9 Status post pacemaker implantation DVT prophylaxis on Eliquis Peripheral neuropathy on gabapentin Sub
[2022-10-28 20:38] VITALS: PULSE 72
[2022-10-28] MEDS: MELATONIN 5 MG TABLET 10 MG PO (20:38)
[2022-10-28] MEDS: ATORVASTATIN 20 MG TABLET PO (20:38)
[2022-10-28 20:59] LABS: Glucose Point of Care 291 mg/dl (65-105)
[2022-10-28] MEDS: methocarbamoL 750 MG TABLET PO (21:45)
[2022-10-28 22:00] VITALS: BP 134/52; PULSE 82; RESP 17; TEMP 36.6; O2SAT 99
[2022-10-29 05:57] LABS: Hematocrit 29.6 % (37.0-47.0); Hemoglobin 9.4 g/dL (12.0-15.0); Mean Corpuscular HGB Conc 31.8 g/dl (32-36); Mean Corpuscular Hemoglobin 27.9 pg (26-34); Mean Corpuscular Volume 87.8 fl (80-100); Mean Platelet Volume 10.6 fl (7.4-10.4); Platelet Count Result 229 k/mm3 (150-375); Red Blood Count 3.37 M/mm3 (4.2-5.4); Red Cell Distribution Width 14.2 % (11.5-14.5); White Blood Count 6.8 K/mm3 (4.5-10.0)
[2022-10-29 06:14] LABS: Anion Gap 4 mmol/L (8-16); Blood Urea Nitrogen 58 mg/dL (7-17); Carbon Dioxide 34 mmol/L (22-30); Chloride 92 mmol/L (98-107); Estimated Glomerular Filt Rate 48; Glucose 330 mg/dL (65-110); Magnesium 2.4 mg/dL (1.6-2.3); Potassium 4.3 mmol/L (3.4-5.0); Sodium 130 mmol/L (137-145)
[2022-10-29 08:54] LABS: Glucose Point of Care 296 mg/dl (65-105)
[2022-10-29] MEDS: INSULIN ASPART (*BKC) 100 UNITS/ML SUB-Q ×2 (09:34→17:30)
[2022-10-29] MEDS: FAMOTIDINE 20 MG/2 ML VIAL IV PUSH ×2 (09:35→20:48)
[2022-10-29] MEDS: GABAPENTIN 300 MG CAPSULE PO ×3 (09:35→17:30)
[2022-10-29] MEDS: FUROSEMIDE 40 MG TABLET PO (09:35)
[2022-10-29] MEDS: FERROUS SULFATE 324 MG TABLET PO ×2 (09:35→17:30)
[2022-10-29] MEDS: levETIRAcetam 500 MG TABLET PO ×2 (09:35→20:48)
[2022-10-29] MEDS: APIXABAN 5 MG TABLET PO ×2 (09:35→20:48)
[2022-10-29 09:36] VITALS: PULSE 82
[2022-10-29] MEDS: LORATADINE 10 MG TABLET PO (09:36)
[2022-10-29] MEDS: TOLNAFTATE 1% POWDER 45 GM BTL 1 APPLIC TOPICAL ×2 (09:36→20:49)
[2022-10-29] MEDS: METOPROLOL TARTRATE 25 MG TABLET PO ×2 (09:36→20:48)
[2022-10-29] MEDS: methocarbamoL 750 MG TABLET PO (09:42)
[2022-10-29] MEDS: INSULIN ASPART (*BKC) 100 UNITS/ML 12 UNITS SUB-Q (12:35)
--- NOTE | 2022-10-29 12:39 | PM.IMPN ---
Progress Note: A&P Assessment and Plan (1) CHF (congestive heart failure): Code(s): I50.9 - Heart failure, unspecified Status: Acute Assessment and Plan: Started on IV Lasix 40 b.i.d. urine output not charted. Patient would be weighed daily. Echo from . Technically suboptimal study due to poor sonographic images. ? 2. Definity contrast administered improved wall motion interpretation. ? 3. Left ventricular chamber dimension is normal. ? 4. Left ventricular systolic function is normal, estimated at 60-65%. ? 5. There is mild concentric increased left ventricular wall thickness. ? 6. The left ventricular diastolic function is abnormal. ? 7. E/e' 19 is elevated. ? 8. There is mild aortic valve sclerosis. ? 9. The mitral valve has mildly calcified annulus. ? 10. No pulmonary hypertension, estimated pulmonary arterial systolic pressure is 27 mmHg. ? 11. There is trivial pericardial effusion. Continue lisinopril Continue with metoprolol 10/28/2022 interval history: patient remains somnolent, she is responding to verbal instruction by opening her eyes and just moans, today patient is little more cooperative and able to take her medication by mouth, she appears quite edematous thought she was getting Lasix 40mg IV q8, has anasarca however her albumin is low normal, patient was seen by certified master safecracker, added Bumetanide, on 10/21 we placed Jenkins catheter and since then she has urinated [id number] out,and continue to urinate,today patient Scr is rising, discussed with her certified master safecracker, patient is off iv lasix and PO metalozone, currnetly on lasix 40mg PO, Patient will be seen by Nephrology and further recommendation to follow, on 10/24 patient was more alert states she is hungry wants eat, started on diabetic diet,, on 10/27 patient was little more awake was able to work with the PT sat in the chair, patient clinical symptoms are improved will continue PT/OT, today discuss with patient nurse, patient's blood sugars trending up as patient eating more currently on lantus 20units am and 10 units at bedtime moderate sliding scale, Also called the patient's contact Meño and lizandro update requested to come visit the patient so far no show, for further recommendation, will monitor, (2) Diabetes: Code(s): E11.9 - Type 2 diabetes mellitus without complications Status: Acute Assessment and Plan: Accu-Cheks AC and HS with sliding scale insulin and hypoglycemic protocol Continue with Januvia Continue with Lantus Continue with glipizide Lower Lantus glipizide Januvia on hold currently will hold her Lantus Continues to be hypoglycemic on home insulin doses will hold insulin continue to monitor Started dextrose refer hypoglycemia. Off insulin continue dextrose and monitor Accu-Chek (3) Hyperlipidemia: Code(s): E78.5 - Hyperlipidemia, unspecified Status: Acute Assessment and Plan: Continue with atorvastatin (4) Obstructive sleep apnea: Code(s): G47.33 - Obstructive sleep apnea (adult) (pediatric) Status: Acute Assessment and Plan: The patient is noncompliant with her CPAP ABG with chronic hypercapnia (5) Gastroesophageal reflux disease: Code(s): K21.9 - Gastro-esophageal reflux disease without esophagitis Status: Acute Assessment and Plan: IV Pepcid (6) Bipolar disorder: Code(s): F31.9 - Bipolar disorder, unspecified Status: Acute Assessment and Plan: Continue with alprazolam (7) Anxiety: Code(s): F41.9 - Anxiety disorder, unspecified Status: Chronic Assessment and Plan: Continue with alprazolam Plan Abnormal growth to her left breast needs outpatient mammogram and ultrasound. Anemia drop 10/16/2022 with no obvious bleeding.: Labs reviewed 10/17/2022 with stable H&H. Chronic anemia baseline hemoglobin between 8-9 Status post pacemaker implantation DVT prophylaxis on Eliquis Peripheral neuropathy on gabapentin Sub
--- NOTE | 2022-10-29 12:49 | PM.PNNEP ---
Progress Note: A&P Assessment and Plan (1) Anasarca: Code(s): R60.1 - Generalized edema Status: Acute Assessment and Plan: clinically improving evaluation to date noted: no significant proteinuria Echo looks okay clear lungs suspect urinary retention may have been the major issue.... garner catheter in place -- remove and voiding trial? on oral diuretics follow trend of repeat labs and UOP (2) HTN (hypertension): Code(s): I10 - Essential (primary) hypertension Status: Chronic Assessment and Plan: reasonable control resumed on low dose metoprolol follow trend of hemodynamics (3) Diabetes mellitus: Qualifiers: Diabetes mellitus type: type 2 Diabetes mellitus buttermaker continuous churn insulin use: with mcc use Diabetes mellitus complication status: without complication Qualified Code(s): E11.9 - Type 2 diabetes mellitus without complications; Z79.4 - long-term (current) use of insulin Code(s): E11.9 - Type 2 diabetes mellitus without complications Status: Chronic Assessment and Plan: follow accuchecks glycemic control per hospitalists Not much else to add at this time --- will continue to follow intermittently. Subjective Date/time seen: 10/29/22 12:49 Appears to be doing reasonably well; swelling/edema stable if not better at this time; renal function continues to improve as well; no apparent distress voiced at this time. Exam Narrative: General: WD/WN female in NAD Heart: normal S1 and S2; no rub Lungs: clear to auscultation Abdomen: soft, nontender, nondistended, positive bowel sounds Extremities: no cyanosis or clubbing; trace edema Skin: no rash Objective Data Vital Signs Vital Signs: Vital Signs Temp Pulse Resp BP Pulse Ox O2 Del Method 10/29/22 12:00 97.6 F 74 18 120/73 100 10/29/22 09:45 Room Air 10/29/22 09:36 82 10/28/22 22:00 98 F 82 17 134/52 L 99 10/28/22 20:00 Room Air 10/28/22 20:38 72 Intake/Output Intake/Output: Intake & Output 10/26/22 10/27/22 10/28/22 10/29/22 23:59 23:59 23:59 23:59 Intake Total 1410 1500 1990 840 Output Total 1450 1000 1850 900 Balance -40 500 140 -60 Meds/Results Medications: Active Medications Generic Name Dose Route Start Last Admin Trade Name Freq PRN Reason Stop Dose Admin Albuterol 2 puff 10/15/22 22:51 Albuterol Sulfate (*Sp) Aerosol 1 Puff INHALATION Q4H PRN Shortness Of Breath Apixaban 5 mg 10/15/22 23:10 10/29/22 09:35 Apixaban 5 Mg Tablet PO 5 mg Q12HR RAMONE Administration Atorvastatin Calcium 20 mg 10/15/22 23:10 10/28/22 20:38 Atorvastatin 20 Mg Tablet PO 20 mg HS RAMONE Administration Dextrose 12.5 gm 10/15/22 22:52 10/19/22 03:50 Dextrose 50% 25 Gm/50 Ml Syringe IV PUSH 12.5 gm PRN PRN Administration Hypoglycemia Protocol Docusate Sodium 100 mg 10/15/22 22:51 Docusate Sodium 100 Mg Capsule PO DAILY PRN Constipation Famotidine 20 mg 10/16/22 09:00 10/29/22 09:35 Famotidine 20 Mg/2 Ml Vial IV PUSH 20 mg Q12HR RAMONE Administration Ferrous Sulfate 324 mg 10/16/22 08:00 10/29/22 09:35 Ferrous Sulfate 324 Mg Tablet PO 324 mg BIDWM RAMONE Administration Furosemide 40 mg 10/27/22 09:00 10/29/22 09:35 Furosemide 40 Mg Tablet PO 40 mg DAILY RAMONE Administration Gabapentin 300 mg 10/16/22 09:00 10/29/22 12:36 Gabapentin 300 Mg Capsule PO 300 mg TID RAMONE Administration Glucagon 1 mg 10/15/22 22:52 10/18/22 08:28 Glucagon For Inj 1 Mg Vial IM 1 mg PRN PRN Administration Hypoglycemia Protocol Glucose 15 gm 10/15/22 22:52 10/19/22 01:51 Glucose Oral Gel 15 Gm Of Glucse In 37.5 Gm Tube PO 15 gm PRN PRN Administration Hypoglycemia Protocol Dextrose 1,000 mls @ 100 mls/hr 10/15/22 22:52 10/19/22 06:37 Dextrose 5% 1,000 Ml IVPB 50 mls/hr P
[2022-10-29 12:54] LABS: Glucose Point of Care 413 mg/dl (65-105)
[2022-10-29 14:00] VITALS: BP 120/73; PULSE 74; RESP 18; TEMP 36.4; O2SAT 100
--- NOTE | 2022-10-29 15:58 | PC.NURSE ---
Pt asking to get up to go to the bathroom. Orders for tenzin stedy per therapy. Pt confused and stating that she wants to use the walker. Pt unable to even stand up for the tenzin stedy, let alone use a walker. Pt yelling and arguing about what she should be doing. Pt opted to stay in her recliner instead of using the tenzin stedy to get up.
[2022-10-29 17:36] LABS: Glucose Point of Care 293 mg/dl (65-105)
[2022-10-29 20:00] VITALS: PULSE 76; RESP 18; O2SAT 100
[2022-10-29 20:48] VITALS: PULSE 78
[2022-10-29] MEDS: MELATONIN 5 MG TABLET 10 MG PO (20:48)
[2022-10-29] MEDS: ATORVASTATIN 20 MG TABLET PO (20:48)
[2022-10-29 21:24] VITALS: BP 131/62; PULSE 76; RESP 18; TEMP 36.6; O2SAT 100
[2022-10-29 21:40] LABS: Glucose Point of Care 402 mg/dl (65-105)
[2022-10-29] MEDS: INSULIN GLARGINE (*BKC) 100 UNITS/ML 20 UNITS SUB-Q (21:54)
[2022-10-30 05:25] VITALS: BP 143/66; PULSE 72; RESP 18; TEMP 36.6; O2SAT 100
[2022-10-30 08:32] LABS: Glucose Point of Care 366 mg/dl (65-105)
[2022-10-30] MEDS: INSULIN ASPART (*BKC) 100 UNITS/ML SUB-Q ×2 (09:04→11:57)
[2022-10-30 09:05] VITALS: PULSE 72
[2022-10-30] MEDS: FUROSEMIDE 40 MG TABLET PO (09:05)
[2022-10-30] MEDS: GABAPENTIN 300 MG CAPSULE PO ×2 (09:05→12:00)
[2022-10-30] MEDS: TOLNAFTATE 1% POWDER 45 GM BTL 1 APPLIC TOPICAL (09:05)
[2022-10-30] MEDS: FERROUS SULFATE 324 MG TABLET PO (09:05)
[2022-10-30] MEDS: levETIRAcetam 500 MG TABLET PO (09:05)
[2022-10-30] MEDS: METOPROLOL TARTRATE 25 MG TABLET PO (09:05)
[2022-10-30] MEDS: LORATADINE 10 MG TABLET PO (09:05)
[2022-10-30] MEDS: APIXABAN 5 MG TABLET PO (09:05)
[2022-10-30] MEDS: FAMOTIDINE 20 MG/2 ML VIAL IV PUSH (09:05)
[2022-10-30] MEDS: INSULIN GLARGINE (*BKC) 100 UNITS/ML 20 UNITS SUB-Q (09:06)
--- NOTE | 2022-10-30 11:24 | PM.DS ---
DS: Admitting Diagnosis Discharge Date October 30, 2022 Admitting Diagnosis Noncompliance in CHF exacerbation, acute on chronic diastolic DS: Discharge Diagnosis Discharge Diagnosis (1) CHF (congestive heart failure): Code(s): I50.9 - Heart failure, unspecified Status: Acute Assessment and Plan: Started on IV Lasix 40 b.i.d. urine output not charted. Patient would be weighed daily. Echo from . Technically suboptimal study due to poor sonographic images. ? 2. Definity contrast administered improved wall motion interpretation. ? 3. Left ventricular chamber dimension is normal. ? 4. Left ventricular systolic function is normal, estimated at 60-65%. ? 5. There is mild concentric increased left ventricular wall thickness. ? 6. The left ventricular diastolic function is abnormal. ? 7. E/e' 19 is elevated. ? 8. There is mild aortic valve sclerosis. ? 9. The mitral valve has mildly calcified annulus. ? 10. No pulmonary hypertension, estimated pulmonary arterial systolic pressure is 27 mmHg. ? 11. There is trivial pericardial effusion. Continue lisinopril Continue with metoprolol 10/28/2022 interval history: patient remains somnolent, she is responding to verbal instruction by opening her eyes and just moans, today patient is little more cooperative and able to take her medication by mouth, she appears quite edematous thought she was getting Lasix 40mg IV q8, has anasarca however her albumin is low normal, patient was seen by shadowgraph scale operator, added Bumetanide, on 10/21 we placed Jenkins catheter and since then she has urinated 95615lb out,and continue to urinate,today patient Scr is rising, discussed with her shadowgraph scale operator, patient is off iv lasix and PO metalozone, currnetly on lasix 40mg PO, Patient will be seen by Nephrology and further recommendation to follow, on 10/24 patient was more alert states she is hungry wants eat, started on diabetic diet,, on 10/27 patient was little more awake was able to work with the PT sat in the chair, patient clinical symptoms are improved will continue PT/OT, today discuss with patient nurse, patient's blood sugars trending up as patient eating more currently on lantus 20units am and 10 units at bedtime moderate sliding scale, Also called the patient's contact Meño and give update requested to come visit the patient so far no show, for further recommendation, will monitor, (2) Diabetes: Code(s): E11.9 - Type 2 diabetes mellitus without complications Status: Acute Assessment and Plan: Accu-Cheks AC and HS with sliding scale insulin and hypoglycemic protocol Continue with Januvia Continue with Lantus Continue with glipizide Lower Lantus glipizide Januvia on hold currently will hold her Lantus Continues to be hypoglycemic on home insulin doses will hold insulin continue to monitor Started dextrose refer hypoglycemia. Off insulin continue dextrose and monitor Accu-Chek (3) Hyperlipidemia: Code(s): E78.5 - Hyperlipidemia, unspecified Status: Acute Assessment and Plan: Continue with atorvastatin (4) Obstructive sleep apnea: Code(s): G47.33 - Obstructive sleep apnea (adult) (pediatric) Status: Acute Assessment and Plan: The patient is noncompliant with her CPAP ABG with chronic hypercapnia (5) Gastroesophageal reflux disease: Code(s): K21.9 - Gastro-esophageal reflux disease without esophagitis Status: Acute Assessment and Plan: IV Pepcid (6) Bipolar disorder: Code(s): F31.9 - Bipolar disorder, unspecified Status: Acute Assessment and Plan: Continue with alprazolam (7) Anxiety: Code(s): F41.9 - Anxiety disorder, unspecified Status: Chronic Assessment and Plan: Continue with alprazolam Plan Abnormal growth to her left breast needs outpatient mammogram and ultrasound. Anemia drop 10/16/2022 with no obvious bleeding.: Labs reviewed 10/17/2022 with stable H&H. Chroni
[2022-10-30 12:39] LABS: Glucose Point of Care 288 mg/dl (65-105)
[2022-10-30 15:02] LABS: Creat 24 Hr 0.77 g/24 h (0.50-2.15); Measured Kappa Chains <1.00 mg/dL (<2.00); Measured Lambda Chains <1.00 mg/dL (<2.00); Pro/Creat Ratio 1164 mg/g creat (<150); Protein,total, 24 Hr Ur 901 mg/24 h (<150)
--- NOTE | 2022-10-30 19:31 | PC.NURSE ---
Nurse from [facility] called to verify metoprolol order per discharge paperwork 15 mg bid & stated no script for tramadol 50 mg PO q6h given at discharge, called Misty Holman PLATING MACHINE OPERATOR occasional babysitter about situation.
== END 2022-10-30 16:24 | DRG 194 ==
LOC: ANHED 15:27 → ANH3MED 16:54
PROVIDERS: Family Medicine; Internal Medicine Nephrology; Nurse Practitioner; Admitting Provider Internal Medicine; Emergency Provider Emergency Medicine; PCP Internal Medicine; Visit Provider Chiropractor
DX: I11.0 Hypertensive heart disease with heart failure (principal); E11.42 Type 2 diabetes mellitus with diabetic polyneuropathy; Z79.01 Long term (current) use of anticoagulants; I50.33 Acute on chronic diastolic (congestive) heart failure; G47.33 Obstructive sleep apnea (adult) (pediatric); F32.9 Major depressive disorder, single episode, unspecified; F41.9 Anxiety disorder, unspecified; K21.9 Gastro-esophageal reflux disease without esophagitis; E78.5 Hyperlipidemia, unspecified; Z86.718 Personal history of other venous thrombosis and embolism; Z86.711 Personal history of pulmonary embolism; Z79.4 Long term (current) use of insulin; Z91.14 Patient's other noncompliance with medication regimen; Z88.0 Allergy status to penicillin; Z87.891 Personal history of nicotine dependence; Z88.2 Allergy status to sulfonamides; Z88.5 Allergy status to narcotic agent
CPT/HCPCS: 36415; 36556; 36600; 71045; 71250; 74176; 76775; 80048; 80053; 80069; 81001; 81025; 82040; 82533; 82550; 82570; 82805; 82948; 83036; 83520; 83605; 83690; 83735; 83880; 83883; 84100; 84156; 84300; 84443; 84484; 84540; 85025; 85027; 85610; 85652; 85730; 86036; 86038; 86039; 86160; 86162; 86225; 86334; 86335; 93005; 93970; 96361; 96372; 96374; 96375; 96376; 97110; 97161; 97166; 97530; 97535; 99285; A9270; C1751; G0378; G0379; J0131; J1610; J1815; J1940; J1953; J2060; J2405; J3480; J7030; J7040; J7070

== ENCOUNTER 2022-11-02 21:30 | Inpatient (IN) | payer OTHER, SELFPAY ==
--- NOTE | ~2022-11-02 | XR_ITS ---
Portable chest x-ray Comparison: 10/23/2022 Clinical History: Weakness Findings: Lungs are clear, without focal consolidation or pleural effusion. Cardiomediastinal silho uette is stable, with pacemaker device. Bones and soft tissues are unremarkable. Impression: Clear lungs. Pacemaker device. Reviewed, dictated and finalized at location M. Impression: Clear lungs. Pacemaker device.
--- NOTE | ~2022-11-02 | US_ITS ---
US breast LT limited INDICATION: Left breast skin thickening seen on prior CT examination. TECHNIQUE: Dedicated Limited left breast ultrasound COMPARISON: CT dated 10/15/2022 FINDINGS: The left breast is composed of normal heterogeneous echotexture without focal solid or cyst ic mass. There is mild skin thickening. IMPRESSION: 1: Mild skin thickening of the left breast. No discrete mass. Correlation with diagnostic bilateral m ammogram recommended. BI-RADS CATEGORY 0 - INCOMPLETE STUDY, NEED ADDITIONAL IMAGING EVALUATION. Reviewed, dictated and finalized at location A. IMPRESSION: 1: Mild skin thickening of the left breast. No discrete mass. Correlation with diagnostic bilateral mammogram recommended. BI-RADS CATEGORY 0 - INCOMPLETE STUDY, NEED ADDITIONAL IMAGING EVALUATION.
[2022-11-02 21:35] VITALS: BP 94/60; PULSE 79; RESP 13; O2SAT 100
[2022-11-02 21:38] LABS: Glucose Point of Care 91 mg/dl (65-105)
[2022-11-02 22:01] VITALS: BP 71/41; PULSE 72; RESP 10; O2SAT 100
--- NOTE | 2022-11-02 22:02 | ECG_ITS ---
Measurements Intervals [place] Rate: 71 P: 9 LA: 173 QRS: 22 QRSD: 79 T: 22 QT: 386 QTc: 422 Interpretive Statements SINUS RHYTHM LOW QRS VOLTAGE IN PRECORDIAL LEADS CANNOT RULE OUT SEPTAL INFARCT, AGE INDETERMINATE BASELINE ARTIFACT- I, II, III, AVR, AVL, AVF, V1 ABNORMAL ECG COMPARED TO ECG 10/15/2022 10:42:22 NO SIGNIFICANT CHANGES Electronically Signed On 11-03-2022 6:45:52 CDT by Kalin Castorena D.O.
[2022-11-02 22:10] LABS: Glucose Point of Care 134 mg/dl (65-105)
[2022-11-02 22:46] LABS: Basophils Absolute Auto 0.1 K/mm3 (0.0-0.1); Basophils Percent Auto 0.4 % (0.2-1.2); Eosinophils Absolute Auto 0.3 K/mm3 (0-0.3); Eosinophils Percent Auto 2.3 % (0-4.4); Hematocrit 32.8 % (37.0-47.0); Hemoglobin 10.3 g/dL (12.0-15.0); Immature Granulocyte Absolute 0.06 K/mm3 (0.00-0.031); Immature Granulocyte Percent A 0.5 % (0-0.5); Lymphocytes Absolute Auto 1.61 K/mm3 (0.9-3.2); Lymphocytes Percent Auto 13.4 % (18.3-44.2); Mean Corpuscular HGB Conc 31.4 g/dl (32-36); Mean Corpuscular Hemoglobin 28.9 pg (26-34); Mean Corpuscular Volume 92.1 fl (80-100); Mean Platelet Volume 9.8 fl (7.4-10.4); Monocytes Absolute Auto 1.2 K/mm3 (0.1-0.6); Monocytes Percent Auto 10.2 % (2.6-8.5); Neutrophils Absolute Auto 8.8 K/mm3 (1.3-6.7); Neutrophils Percent Auto 73.2 % (45.5-73.1); Platelet Count Result 316 k/mm3 (150-375); Red Blood Count 3.56 M/mm3 (4.2-5.4); Red Cell Distribution Width 14.2 % (11.5-14.5)
[2022-11-02 23:00] LABS: Alanine Aminotransferase 20 U/L (6-35); Albumin Level 3.6 g/dL (3.5-5.1); Alkaline Phosphatase 90 U/L (38-126); Anion Gap 6 mmol/L (8-16); Aspartate Amino Transferase 24 U/L (14-36); Bilirubin,Total 0.6 mg/dL (0.2-1.3); Blood Urea Nitrogen 104 mg/dL (7-17); Calcium 8.1 mg/dL (8.4-10.2); Carbon Dioxide 27 mmol/L (22-30); Chloride 100 mmol/L (98-107); Estimated Glomerular Filt Rate 18; Glucose 129 mg/dL (65-110); Potassium 5.8 mmol/L (3.4-5.0); Sodium 133 mmol/L (137-145)
--- NOTE | 2022-11-02 23:35 | ED.GENADULT ---
HPI - General Adult General Chief complaint: Recheck/Abnormal Lab/Rx Stated complaint: LOW BLOOD GLUCOSE Time Seen by Provider: 11/02/22 21:41 History of Present Illness HPI narrative: Patient 46-year-old female who presents the emergency department with chief complaint of hypoglycemia. Patient has history of diabetes and was recently in the hospital the patient was discharged back to the care facility where she lives at and today was found to be hypoglycemic the patient was given glucagon and then given D10 by EMS. On arrival to the emergency department the patient just complains of generalized achiness and not feeling well. Related Data Home Medications Medication Instructions Recorded Confirmed atorvastatin 20 mg tablet 20 mg PO HS 08/21/19 10/15/22 furosemide 20 mg tablet 40 mg PO BID 01/18/22 10/15/22 albuterol sulfate 90 mcg/actuation 2 puff inhalation Q4H PRN 04/22/22 10/15/22 aerosol inhaler Shortness Of Breath alprazolam 0.5 mg tablet 1 mg PO TID 04/22/22 10/15/22 docusate sodium 100 mg capsule 100 mg PO DAILY PRN Constipation 04/22/22 10/15/22 famotidine 20 mg tablet (Pepcid) 20 mg PO DAILY 04/22/22 10/15/22 lisinopril 20 mg tablet 20 mg PO DAILY 04/22/22 10/15/22 loratadine 10 mg tablet 10 mg PO DAILY 04/22/22 10/15/22 melatonin 5 mg tablet 10 mg PO HS 04/22/22 10/15/22 methocarbamol 750 mg tablet 750 mg PO Q8H PRN Muscle Pain 04/22/22 10/15/22 metoprolol tartrate 25 mg tablet 15 mg PO BID 04/22/22 10/15/22 promethazine 25 mg tablet 25 mg PO TID PRN Nausea 08/10/22 10/15/22 apixaban 5 mg tablet (Eliquis) 5 mg PO BID 09/21/22 10/15/22 gabapentin 300 mg capsule 300 mg PO TID 09/21/22 10/15/22 glipizide 10 mg tablet 10 mg PO BID 09/21/22 10/15/22 insulin lispro 100 unit/mL 6 unit subcut TIDWMEAL 09/21/22 10/15/22 subcutaneous cartridge (Humalog U-100 Insulin) pioglitazone 30 mg tablet (Actos) 10 mg PO BID 09/21/22 10/15/22 polyethylene glycol 3350 17 gram 17 g PO QAM PRN Constipation 09/21/22 10/15/22 oral powder packet (Miralax) sitagliptin phosphate 100 mg 100 mg PO BID 09/21/22 10/15/22 tablet (Januvia) insulin glargine 100 unit/mL 40 unit subcut HS 10/15/22 10/15/22 subcutaneous solution (Lantus U-100 Insulin) levetiracetam 500 mg tablet 500 mg PO BID 10/15/22 10/15/22 Allergies Allergy/AdvReac Type Severity Reaction Status Date / Time lidocaine Allergy Intermediate HIVES Verified 10/15/22 18:06 nitroglycerin Allergy Intermediate HIVES Verified 10/15/22 18:06 aspirin Allergy Mild Hives Verified 10/15/22 18:06 citalopram Allergy Mild Rash Verified 10/15/22 18:06 escitalopram Allergy Mild Hives Verified 10/15/22 18:06 ibuprofen Allergy Mild Hives Verified 10/15/22 18:06 Penicillins Allergy Mild HIVES PER Verified 10/15/22 18:06 UNCODED ALLERGIES 08/27/12 procaine Allergy Mild Hives Verified 10/15/22 18:06 propoxyphene Allergy Mild Hives Verified 10/15/22 18:06 doxycycline Allergy Unknown Hives Verified 10/15/22 18:06 meloxicam Allergy Unknown HIVES Verified 10/15/22 18:06 Sulfa (Sulfonamide Allergy Unknown HIVES PER Verified 10/15/22 18:06 Antibiotics) UNCODED ALLERGIES 08/27/12 sulfamethoxazole Allergy Unknown Hives Verified 10/15/22 18:06 trimethoprim Allergy Unknown Hives Verified 10/15/22 18:06 amoxicillin Allergy Hives Verified 10/15/22 18:07 codeine Allergy Hives Verified 10/15/22 18:06 iohexol Allergy Hives Verified 10/15/22 18:06 [From contrast - CT, X-RAY] adhesive AdvReac Unknown SILK TAPE= Verified 10/15/22 18:06 HIVES imipenem AdvReac Itching Verified 10/15/22 18:06 Review of Systems Review of Systems: A 10 system review of systems was completed on the patient and is negative except for what is stated in the HPI. Nursing and ancillary documentation was reviewed. [facility] Past Medical History Medical History Anemia Anxiety Arthritis Asthma Bipolar disorder Chronic anticoagulation For
--- NOTE | 2022-11-02 23:49 | PM.IMHP ---
H&P: HPI History of Present Illness Date/Time: 11/02/22 23:49 Chief Complaint: Abnormal labs Narrative: This is a 46-year-old female patient who presented to the emergency department with chief complaint of hypoglycemia. The patient was discharged from this hospital on 10/30/2022. The patient had been on metolazone and Lasix. Nephrology had been consulted at that time. On her discharge summary it was noted that Lantus glipizide and Januvia were to be lowered hold Lantus. According to her discharge sheet the patient was discharged to home. However according to the ER records the patient was at a skilled facility and she was found to be hypoglycemic and given glucagon and D10 by EMS. The patient was complaining of generalized achiness and not feeling well. The patient was given calcium gluconate 50) dextrose sodium bicarb Kayexalate and IV insulin. Her potassium was 5.8. Sodium 133. Creatinine 2.8 with a baseline of 1.2-1.9. Sodium is 133. Blood sugar Accu-Chek was 129. The patient was ordered a L of IV fluids. Blood pressure was charted as 71/41. The patient was somewhat somnolent 1 I spoke to her however she was easily awakened with tactile stimulation. The patient had no complaints except for her feet being cold. The patient is being admitted to observation status on the date of service of 11/02/2022. Review of Systems Review of Systems: The patient is a poor historian All systems reviewed & are unremarkable except as noted in HPI and below Constitutional: Constitutional: Reports as per HPI and Reports no additional constitutional complaints Eyes: Eyes: Reports as per HPI and Reports no additional eye complaints ENT: Reports system reviewed and no additional complaints, except as documented and Reports Normal hearing present Cardiovascular: Cardiovascular: Reports no additional cardiovascular complaints Respiratory: Respiratory: Reports no additional respiratory complaints and Reports no additional respiratory complaints Gastrointestinal: Gastrointestinal: Reports as per HPI and Reports no additional gastrointestinal complaints Musculoskeletal: Musculoskeletal: Reports no additional musculoskeletal complaints Integumentary/Breasts: Skin/Breast: Reports system reviewed and no additional complaints, except as docu and Reports as per HPI Neurologic: Reports system reviewed and no additional complaints, except as documented, Reports as per HPI and Reports Normal hearing present Psychiatric: Psychiatric: Reports no additional psychiatric complaints and Reports as per HPI Endocrine: Endocrine: Reports no additional endocrine complaints Hematologic/Lymphatic: Hematologic/Lymphatic: Reports no additional hematologic/lymphatic complaints Allergic/Immunologic: Allergic/Immunologic: Reports no additional allergic/immunologic complaints [facility] Past Medical History Medical History Anemia Anxiety Arthritis Asthma Bipolar disorder Chronic anticoagulation For history of DVT and PE. Chronic obstructive pulmonary disease Chronic pain syndrome Deep venous thrombosis Depression Eczema Gastroesophageal reflux disease Herniated disc History of DVT (deep vein thrombosis) History of MRSA infection History of seizures Hyperlipidemia Hypertension Insulin dependent diabetes mellitus Historically poorly controlled. Obesity Obstructive sleep apnea Non compliant with treatment. Peripheral neuropathy Pulmonary embolism Seizures Sleep apnea Suicide attempt T11 vertebral fracture Nondisplaced fracture of the right T11 inferior articulating facet. No surgical intervention required. Surgical History Surgical History History of bilateral knee replacement History of cardiac catheterization History of cardiac pacemaker For paroxysmal ventricular arrhythmia/tachycardia. History of cholecystectomy Family History Fami
[2022-11-03] VITALS (21 sets, daily range): BP systolic 79–132; BP diastolic 44–102; PULSE 70–93; RESP 10–22; TEMP 36.1–36.9; O2SAT 92–100; BMI 42.0
[2022-11-03] MEDS: INSULIN HUMAN REGULAR (*BKC) 100 UNITS/ML 10 UNITS IV PUSH (00:12)
[2022-11-03] MEDS: SODIUM BICARBONATE 8.4% 50 MEQ/50 ML SYRINGE IV PUSH (00:13)
[2022-11-03] MEDS: DEXTROSE 50% 25 GM/50 ML SYRINGE IV PUSH ×2 (00:15→03:55)
[2022-11-03] MEDS: CALCIUM GLUCONATE 1,000 MG/10 ML VIAL 1000 MG IV PUSH (00:18)
[2022-11-03] MEDS: SODIUM POLYSTYRENE SULFONONATE 15 GM/60 ML BTL 30 GM PO (00:20)
[2022-11-03] MEDS: SODIUM CHLORIDE 0.9% IV 1,000 ML 999 ML IV CONT (00:20)
--- NOTE | 2022-11-03 01:05 | PC.NURSE ---
0105 Called IMU, spoke with Emily. Kortney RN. Will return call. Questions regarding pt. Updated on recent blood pressure.
--- NOTE | 2022-11-03 01:35 | ADMGEN ---
This patient, Valerie Nguyen, was admitted to IMU Room 212-01 at 0130. Patient/family oriented to hospital policies and general routines including ID bracelet, bed and alarms, visiting hours, pain management, procedures, bathroom and other care routines, personal items, smoking policy, room service/diet, and visiting hours. Information on how to activate the Rapid Response Team has been discussed. Patient/Family are encouraged to report perceived risks to care and to ask questions if they do not understand what they are told or what they should do.
[2022-11-03 01:40] LABS: Appearance Urine Turbid (Clear); Bacteria Urine 4+ /hpf; Bilirubin Urine Negative (Negative); Blood Urine 2+ (Negative); Color Urine Yellow (Yellow); Glucose Urine UA Negative (Negative); Ketones Urine Negative (Negative); Leukocyte Esterase Ur 3+ LEU/UL (Negative); Need Manual Microscopic Reviewed; Nitrate Urine Negative (Negative); Protein Urine 2+ mg/dL (Negative); RBC Urine 0-2 /hpf (0-2); Specific Grav Ur 1.012 (1.001-1.035); Squamous Epithelial Cell Urine None seen /hpf (Few); Urobilinogen Urine 0.2 mg/dL (<2.0); WBC Urine >100 /hpf
[2022-11-03 01:42] LABS: Glucose Point of Care 88 mg/dl (65-105)
[2022-11-03 01:43] LABS: Add Urine Microscopic? YES
[2022-11-03 03:45] LABS: Anion Gap 6 mmol/L (8-16); Blood Urea Nitrogen 112 mg/dL (7-17); Calcium 8.3 mg/dL (8.4-10.2); Carbon Dioxide 28 mmol/L (22-30); Chloride 104 mmol/L (98-107); Estimated Glomerular Filt Rate 22; Glucose 40 mg/dL (65-110); Potassium 5.8 mmol/L (3.4-5.0); Sodium 138 mmol/L (137-145)
[2022-11-03] MEDS: DEXTROSE 10% 1,000 ML 75 ML IV CONT (03:56)
[2022-11-03 04:17] LABS: Glucose Point of Care 117 mg/dl (65-105)
[2022-11-03 04:17] LABS: Glucose Point of Care 25 mg/dl (65-105)
[2022-11-03 05:35] LABS: Basophils Percent Auto 0.5 % (0.2-1.2); Eosinophils Absolute Auto 0.3 K/mm3 (0-0.3); Eosinophils Percent Auto 4.1 % (0-4.4); Hemoglobin 9.9 g/dL (12.0-15.0); Immature Granulocyte Absolute 0.02 K/mm3 (0.00-0.031); Immature Granulocyte Percent A 0.3 % (0-0.5); Lymphocytes Absolute Auto 1.58 K/mm3 (0.9-3.2); Mean Corpuscular HGB Conc 30.9 g/dl (32-36); Mean Corpuscular Hemoglobin 28.4 pg (26-34); Mean Platelet Volume 10.3 fl (7.4-10.4); Monocytes Absolute Auto 0.7 K/mm3 (0.1-0.6); Monocytes Percent Auto 10.9 % (2.6-8.5); Neutrophils Percent Auto 60.2 % (45.5-73.1); Platelet Count Result 274 k/mm3 (150-375); Red Blood Count 3.48 M/mm3 (4.2-5.4); Red Cell Distribution Width 13.9 % (11.5-14.5); White Blood Count 6.6 K/mm3 (4.5-10.0)
[2022-11-03 05:46] LABS: Lactic Acid Reflex 0.8 mmol/L (0.7-2.0)
[2022-11-03 05:48] LABS: Alanine Aminotransferase 18 U/L (6-35); Albumin Level 3.6 g/dL (3.5-5.1); Alkaline Phosphatase 84 U/L (38-126); Anion Gap 7 mmol/L (8-16); Aspartate Amino Transferase 25 U/L (14-36); Bilirubin,Total 0.6 mg/dL (0.2-1.3); Blood Urea Nitrogen 106 mg/dL (7-17); Calcium 8.3 mg/dL (8.4-10.2); Carbon Dioxide 27 mmol/L (22-30); Chloride 101 mmol/L (98-107); Estimated Glomerular Filt Rate 22; Glucose 116 mg/dL (65-110); Potassium 5.3 mmol/L (3.4-5.0); Sodium 135 mmol/L (137-145)
[2022-11-03 10:12] LABS: Glucose Point of Care 123 mg/dl (65-105)
[2022-11-03 11:10] LABS: Glucose Point of Care 127 mg/dl (65-105)
--- NOTE | 2022-11-03 14:39 | PM.IMPN ---
Progress Note: A&P Assessment and Plan (1) Hypoglycemia: Code(s): E16.2 - Hypoglycemia, unspecified Status: Acute Assessment and Plan: Is reported that the patient had hypoglycemia at the facility. Continue with Accu-Cheks every 2 hours. Hypoglycemic protocol Hold all diabetic medication at this time. (2) Acute kidney injury: Code(s): N17.9 - Acute kidney failure, unspecified Status: Acute Assessment and Plan: Creatinine is 2.8 with a creatinine of 1.2 just 4 days ago. The patient had been on diuretics. Hold diuretics at this time. Nephrology did see the patient with her last admission. Gently hydrate she has CHF. (3) Diabetes mellitus: Qualifiers: Diabetes mellitus type: type 2 Diabetes mellitus [facility] insulin use: with roasterman use Diabetes mellitus complication status: without complication Qualified Code(s): E11.9 - Type 2 diabetes mellitus without complications; Z79.4 - termite treater helper (current) use of insulin Code(s): E11.9 - Type 2 diabetes mellitus without complications Status: Chronic Assessment and Plan: Patient was found to be hypoglycemic I did place an order for hypoglycemic protocol for now we will check Accu-Cheks every 2 hours. I am holding all of her diabetic medications at this time. (4) Hyperlipidemia: Code(s): E78.5 - Hyperlipidemia, unspecified Status: Acute Assessment and Plan: Continue with home medication when the patient is more awake. (5) Peripheral neuropathy: Qualifiers: Peripheral neuropathy type: polyneuropathy, other Qualified Code(s): G62.89 - Other specified polyneuropathies Code(s): G62.9 - Polyneuropathy, unspecified Status: Acute Assessment and Plan: Continue with home medication when she is more awake. Her medication reconciliation has not been completed at this time. (6) Epilepsy: Code(s): G40.909 - Epilepsy, unspecified, not intractable, without status epilepticus Status: Acute Assessment and Plan: Continue with home medication. It looks like the patient is on oral Keppra b.i.d. (7) HTN (hypertension): Code(s): I10 - Essential (primary) hypertension Status: Chronic Assessment and Plan: Holding all hypertensive medications at this time due to current hypotension (8) COPD (chronic obstructive pulmonary disease): Code(s): J44.9 - Chronic obstructive pulmonary disease, unspecified Status: Acute Assessment and Plan: Continue with her home inhaler (9) Sleep apnea: Code(s): G47.30 - Sleep apnea, unspecified Status: Acute Assessment and Plan: The patient is noncompliant with her CPAP (10) Bipolar disorder: Code(s): F31.9 - Bipolar disorder, unspecified Status: Acute Assessment and Plan: Continue with home medications. (11) Anxiety: Code(s): F41.9 - Anxiety disorder, unspecified Status: Chronic Assessment and Plan: Patient is somnolent at this time. (12) History of pulmonary embolism: Code(s): Z86.711 - Personal history of pulmonary embolism Status: Acute Assessment and Plan: Continue with her Eliquis Subjective Date/time seen: 11/03/22 14:39 no new complaints today Exam Const: General: cooperative, healthy appearing, comfortable, no acute distress, well developed, ill appearing, tired appearing, overweight and edematous Nutritional Appearance: overweight and edematous Orientation/consciousness: oriented to person and oriented to place HENMT: Head: normal to inspection, No palpable skull fracture present, normocephalic and atraumatic Ears: hearing grossly normal bilaterally and external ears normal Face/Nose/Sinus: Normal external nose present and Normal nares present Eyes: General: appearance normal, both eyes and all related structures Alignment and Position: alignment normal Periorbital: periorbital findings norm
[2022-11-03] MEDS: traMADol HCL (*CRX) 50 MG TABLET PO (15:52)
[2022-11-03] MEDS: APIXABAN 5 MG TABLET PO (15:53)
[2022-11-03] MEDS: METOPROLOL TARTRATE 12.5 MG TABLET PO (15:53)
[2022-11-03] MEDS: ALPRAZolam (*CRX) 0.5 MG TABLET 1 MG PO (15:53)
[2022-11-03] MEDS: levETIRAcetam 500 MG TABLET PO (15:53)
[2022-11-03] MEDS: FERROUS SULFATE 324 MG TABLET PO (15:54)
[2022-11-03] MEDS: FAMOTIDINE 20 MG TABLET PO (15:54)
[2022-11-03 16:46] LABS: Glucose Point of Care 161 mg/dl (65-105)
[2022-11-03 17:47] LABS: Glucose Point of Care 145 mg/dl (65-105)
[2022-11-03 20:07] LABS: Glucose Point of Care 182 mg/dl (65-105)
[2022-11-03] MEDS: ATORVASTATIN 20 MG TABLET PO (21:26)
[2022-11-03] MEDS: TOLNAFTATE 1% POWDER 45 GM BTL 1 APPLIC TOPICAL ×2 (21:27)
[2022-11-03] MEDS: MELATONIN 5 MG TABLET 10 MG PO (21:27)
[2022-11-04] VITALS (8 sets, daily range): BP systolic 125–136; BP diastolic 59–78; PULSE 79–85; RESP 16–18; TEMP 36.3–36.7; O2SAT 96–100
--- NOTE | 2022-11-04 07:59 | PC.NURSE ---
Notified Dr. Ulloa of patient's blood glucose of 382. Pt is not currently on any medication for her diabetes d/t arriving to ED with hypoglycemia. New order for 15 units SQ NPH insulin now, start moderate dose sliding scale with meals, and resume home Lantus SQ at HS, but decrease the dose to 30 units SQ from 40 units.
[2022-11-04] MEDS: LORATADINE 10 MG TABLET PO (08:27)
[2022-11-04] MEDS: INSULIN ASPART (*BKC) 100 UNITS/ML SUB-Q ×2 (08:27→11:46)
[2022-11-04] MEDS: INSULIN HUMAN NPH (*BKC) 100 UNITS/ML 15 UNITS SUB-Q (08:27)
[2022-11-04] MEDS: traMADol HCL (*CRX) 50 MG TABLET PO ×2 (08:27→20:45)
[2022-11-04] MEDS: APIXABAN 5 MG TABLET PO ×2 (08:27→18:36)
[2022-11-04] MEDS: ALPRAZolam (*CRX) 0.5 MG TABLET 1 MG PO ×3 (08:27→18:35)
[2022-11-04] MEDS: METOPROLOL TARTRATE 12.5 MG TABLET PO ×2 (08:28→18:35)
[2022-11-04] MEDS: FERROUS SULFATE 324 MG TABLET PO ×2 (08:28→18:35)
[2022-11-04] MEDS: FAMOTIDINE 20 MG TABLET PO (08:28)
[2022-11-04] MEDS: levETIRAcetam 500 MG TABLET PO ×2 (08:28→18:35)
[2022-11-04] MEDS: TOLNAFTATE 1% POWDER 45 GM BTL 1 APPLIC TOPICAL ×4 (08:30→20:50)
[2022-11-04 08:42] LABS: Glucose Point of Care 382 mg/dl (65-105)
[2022-11-04 10:02] LABS: Anion Gap 6 mmol/L (8-16); Blood Urea Nitrogen 99 mg/dL (7-17); Calcium 8.2 mg/dL (8.4-10.2); Carbon Dioxide 31 mmol/L (22-30); Chloride 102 mmol/L (98-107); Estimated Glomerular Filt Rate 35; Glucose 420 mg/dL (65-110); Potassium 5.2 mmol/L (3.4-5.0); Sodium 139 mmol/L (137-145)
[2022-11-04 11:01] LABS: Glucose Point of Care 379 mg/dl (65-105)
--- NOTE | 2022-11-04 12:49 | PM.IMPN ---
Progress Note: A&P Assessment and Plan (1) Hypoglycemia: Code(s): E16.2 - Hypoglycemia, unspecified Status: Acute Assessment and Plan: Hypoglycemia now resolved. Blood sugars now elevated, patient eating. Will resume some of her diabetic medications. Monitor blood sugar. (2) Acute kidney injury: Code(s): N17.9 - Acute kidney failure, unspecified Status: Acute Assessment and Plan: Secondary to diuretic therapy. Kidney function is improving. Volume status is okay today. Monitor (3) Diabetes mellitus: Qualifiers: Diabetes mellitus type: type 2 Diabetes mellitus rn long term care insulin use: with fci use Diabetes mellitus complication status: without complication Qualified Code(s): E11.9 - Type 2 diabetes mellitus without complications; Z79.4 - alf (current) use of insulin Code(s): E11.9 - Type 2 diabetes mellitus without complications Status: Chronic Assessment and Plan: Will resume some of her diabetic medications as blood sugar is going up. (4) Hyperlipidemia: Code(s): E78.5 - Hyperlipidemia, unspecified Status: Acute Assessment and Plan: Continue with home medication when the patient is more awake. (5) Peripheral neuropathy: Qualifiers: Peripheral neuropathy type: polyneuropathy, other Qualified Code(s): G62.89 - Other specified polyneuropathies Code(s): G62.9 - Polyneuropathy, unspecified Status: Acute Assessment and Plan: Continue with home medication when she is more awake. Her medication reconciliation has not been completed at this time. (6) Epilepsy: Code(s): G40.909 - Epilepsy, unspecified, not intractable, without status epilepticus Status: Acute Assessment and Plan: Continue with home medication. It looks like the patient is on oral Keppra b.i.d. (7) HTN (hypertension): Code(s): I10 - Essential (primary) hypertension Status: Chronic Assessment and Plan: Holding all hypertensive medications at this time due to current hypotension (8) COPD (chronic obstructive pulmonary disease): Code(s): J44.9 - Chronic obstructive pulmonary disease, unspecified Status: Acute Assessment and Plan: Continue with her home inhaler (9) Sleep apnea: Code(s): G47.30 - Sleep apnea, unspecified Status: Acute Assessment and Plan: The patient is noncompliant with her CPAP (10) Bipolar disorder: Code(s): F31.9 - Bipolar disorder, unspecified Status: Acute Assessment and Plan: Continue with home medications. (11) Anxiety: Code(s): F41.9 - Anxiety disorder, unspecified Status: Chronic Assessment and Plan: Patient is somnolent at this time. (12) History of pulmonary embolism: Code(s): Z86.711 - Personal history of pulmonary embolism Status: Acute Assessment and Plan: Continue with her Eliquis Plan Likely discharge in 1-2 days. Will need adjustment of her diabetic medications. Subjective Date/time seen: 11/04/22 12:49 No complaints Exam Const: General: cooperative, healthy appearing, comfortable, no acute distress, well developed, ill appearing, tired appearing, overweight and edematous Nutritional Appearance: overweight and edematous Orientation/consciousness: oriented to person and oriented to place HENMT: Head: normal to inspection, No palpable skull fracture present, normocephalic and atraumatic Ears: hearing grossly normal bilaterally and external ears normal Face/Nose/Sinus: Normal external nose present and Normal nares present Eyes: General: appearance normal, both eyes and all related structures Alignment and Position: alignment normal Periorbital: periorbital findings normal Eyelids: eyelids normal Sclera: sclerae normal Pupils: Equal, round and reactive pupils present EOM: EOMs intact bilaterally Neck: Neck: normal visual inspection, full R
--- NOTE | 2022-11-04 15:38 | PC.NURSE ---
This patient, Valerie Nguyen, was transferred to [[id number] ] on 11/04/22 at 1530. Personal belongings sent with patient. Report given to [TYRELL Cruz @ [phone] ]. Appropriate documentation sent with patient.
[2022-11-04 17:10] LABS: Glucose Point of Care 173 mg/dl (65-105)
[2022-11-04] MEDS: INSULIN GLARGINE (*BKC) 100 UNITS/ML 30 UNITS SUB-Q (20:43)
[2022-11-04] MEDS: ATORVASTATIN 20 MG TABLET PO (20:45)
[2022-11-04] MEDS: MELATONIN 5 MG TABLET 10 MG PO (20:46)
[2022-11-04 20:52] LABS: Glucose Point of Care 185 mg/dl (65-105)
[2022-11-05 04:43] VITALS: BP 113/48; PULSE 70; RESP 20; TEMP 35.8; O2SAT 100
[2022-11-05] MEDS: levETIRAcetam 500 MG TABLET PO ×2 (08:31→16:42)
[2022-11-05] MEDS: APIXABAN 5 MG TABLET PO ×2 (08:31→16:42)
[2022-11-05] MEDS: FAMOTIDINE 20 MG TABLET PO (08:31)
[2022-11-05] MEDS: FERROUS SULFATE 324 MG TABLET PO ×2 (08:31→16:42)
[2022-11-05] MEDS: ALPRAZolam (*CRX) 0.5 MG TABLET 1 MG PO ×3 (08:31→16:45)
[2022-11-05] MEDS: LORATADINE 10 MG TABLET PO (08:31)
[2022-11-05 08:37] LABS: Glucose Point of Care 195 mg/dl (65-105)
[2022-11-05] MEDS: TOLNAFTATE 1% POWDER 45 GM BTL 1 APPLIC TOPICAL ×4 (08:38→21:00)
[2022-11-05 09:06] VITALS: PULSE 60
[2022-11-05] MEDS: METOPROLOL TARTRATE 12.5 MG TABLET PO ×2 (09:06→16:42)
[2022-11-05] MEDS: traMADol HCL (*CRX) 50 MG TABLET PO ×2 (10:19→20:53)
[2022-11-05] MEDS: methocarbamoL 750 MG TABLET PO (10:42)
[2022-11-05 12:02] LABS: Glucose Point of Care 206 mg/dl (65-105)
[2022-11-05] MEDS: INSULIN ASPART (*BKC) 100 UNITS/ML SUB-Q ×2 (12:07→16:49)
[2022-11-05 15:05] VITALS: BP 112/78; PULSE 68; RESP 18; TEMP 36.4; O2SAT 100
--- NOTE | 2022-11-05 16:09 | PM.IMPN ---
Progress Note: A&P Assessment and Plan (1) Hypoglycemia: Code(s): E16.2 - Hypoglycemia, unspecified Status: Acute Assessment and Plan: Hypoglycemia now resolved. Blood sugars now elevated, patient eating. Will resume some of her diabetic medications. Monitor blood sugar. 11/05/2022 interval history: Patient is a 46-year-old female with history of diabetes was just recently discharged and presented the hospital with hypoglycemia most likely secondary to poor p.o. dietary intake patient blood sugars are now normalized, patient remains clinically, will have a PT OT evaluate the patient and further recommendation to follow. (2) Acute kidney injury: Code(s): N17.9 - Acute kidney failure, unspecified Status: Acute Assessment and Plan: Secondary to diuretic therapy. Kidney function is improving. Volume status is okay today. Monitor (3) Diabetes mellitus: Qualifiers: Diabetes mellitus type: type 2 Diabetes mellitus terminal manager insulin use: with terminal manager use Diabetes mellitus complication status: without complication Qualified Code(s): E11.9 - Type 2 diabetes mellitus without complications; Z79.4 - prison (current) use of insulin Code(s): E11.9 - Type 2 diabetes mellitus without complications Status: Chronic Assessment and Plan: Will resume some of her diabetic medications as blood sugar is going up. (4) Hyperlipidemia: Code(s): E78.5 - Hyperlipidemia, unspecified Status: Acute Assessment and Plan: Continue with home medication when the patient is more awake. (5) Peripheral neuropathy: Qualifiers: Peripheral neuropathy type: polyneuropathy, other Qualified Code(s): G62.89 - Other specified polyneuropathies Code(s): G62.9 - Polyneuropathy, unspecified Status: Acute Assessment and Plan: Continue with home medication when she is more awake. Her medication reconciliation has not been completed at this time. (6) Epilepsy: Code(s): G40.909 - Epilepsy, unspecified, not intractable, without status epilepticus Status: Acute Assessment and Plan: Continue with home medication. It looks like the patient is on oral Keppra b.i.d. (7) HTN (hypertension): Code(s): I10 - Essential (primary) hypertension Status: Chronic Assessment and Plan: Holding all hypertensive medications at this time due to current hypotension (8) COPD (chronic obstructive pulmonary disease): Code(s): J44.9 - Chronic obstructive pulmonary disease, unspecified Status: Acute Assessment and Plan: Continue with her home inhaler (9) Sleep apnea: Code(s): G47.30 - Sleep apnea, unspecified Status: Acute Assessment and Plan: The patient is noncompliant with her CPAP (10) Bipolar disorder: Code(s): F31.9 - Bipolar disorder, unspecified Status: Acute Assessment and Plan: Continue with home medications. (11) Anxiety: Code(s): F41.9 - Anxiety disorder, unspecified Status: Chronic Assessment and Plan: Patient is somnolent at this time. (12) History of pulmonary embolism: Code(s): Z86.711 - Personal history of pulmonary embolism Status: Acute Assessment and Plan: Continue with her Eliquis Plan Likely discharge in 1-2 days. Will need adjustment of her diabetic medications. Subjective Date/time seen: 11/05/22 16:09 11/05/2022 interval history: Patient is a 46-year-old female with history of diabetes was just recently discharged and presented the hospital with hypoglycemia most likely secondary to poor p.o. dietary intake patient blood sugars are now normalized, patient remains clinically, will have a PT OT evaluate the patient and further recommendation to follow. Review of Systems Review of Systems: All systems reviewed & are unremarkable except as noted in HPI and below Exam Narrative: Morbidly obese Vivian
[2022-11-05 16:42] VITALS: PULSE 68
[2022-11-05 16:48] LABS: Glucose Point of Care 216 mg/dl (65-105)
[2022-11-05] MEDS: INSULIN GLARGINE (*BKC) 100 UNITS/ML 30 UNITS SUB-Q (20:48)
[2022-11-05] MEDS: ATORVASTATIN 20 MG TABLET PO (20:53)
[2022-11-05] MEDS: MELATONIN 5 MG TABLET 10 MG PO (20:54)
[2022-11-05 20:57] VITALS: BP 140/73; PULSE 75; RESP 18; TEMP 36.3; O2SAT 100
[2022-11-05 21:16] LABS: Glucose Point of Care 234 mg/dl (65-105)
[2022-11-06 08:03] LABS: Glucose Point of Care 133 mg/dl (65-105)
[2022-11-06 08:55] VITALS: BP 115/77; PULSE 70; RESP 17; TEMP 36.1; O2SAT 100
[2022-11-06] MEDS: ALPRAZolam (*CRX) 0.5 MG TABLET 1 MG PO ×3 (10:37→20:18)
[2022-11-06] MEDS: FERROUS SULFATE 324 MG TABLET PO ×2 (10:37→20:18)
[2022-11-06] MEDS: LORATADINE 10 MG TABLET PO (10:38)
[2022-11-06] MEDS: levETIRAcetam 500 MG TABLET PO ×2 (10:38→20:18)
[2022-11-06] MEDS: FAMOTIDINE 20 MG TABLET PO (10:38)
[2022-11-06] MEDS: APIXABAN 5 MG TABLET PO ×2 (10:38→20:18)
[2022-11-06] MEDS: METOPROLOL TARTRATE 12.5 MG TABLET PO ×2 (10:39→20:17)
[2022-11-06] MEDS: TOLNAFTATE 1% POWDER 45 GM BTL 1 APPLIC TOPICAL ×2 (10:45)
[2022-11-06 10:50] LABS: Glucose Point of Care 115 mg/dl (65-105)
--- NOTE | 2022-11-06 11:02 | PCPTNOTE ---
Spoke with hospitalist - BARRETT to discharge pt from Therapy services due to pt being at baseline.
[2022-11-06 12:20] LABS: Glucose Point of Care 141 mg/dl (65-105)
--- NOTE | 2022-11-06 13:04 | PM.DS ---
DS: Admitting Diagnosis Discharge Date 11/06/2022 Admitting Diagnosis Abnormal labs DS: Discharge Diagnosis Discharge Diagnosis (1) Hypoglycemia: Code(s): E16.2 - Hypoglycemia, unspecified Status: Acute Assessment and Plan: Hypoglycemia now resolved. Blood sugars now elevated, patient eating. Will resume some of her diabetic medications. Monitor blood sugar. 11/05/2022 interval history: Patient is a 46-year-old female with history of diabetes was just recently discharged and presented the hospital with hypoglycemia most likely secondary to poor p.o. dietary intake patient blood sugars are now normalized, patient remains clinically, will have a PT OT evaluate the patient and further recommendation to follow. (2) Acute kidney injury: Code(s): N17.9 - Acute kidney failure, unspecified Status: Acute Assessment and Plan: Secondary to diuretic therapy. Kidney function is improving. Volume status is okay today. Monitor (3) Diabetes mellitus: Qualifiers: Diabetes mellitus type: type 2 Diabetes mellitus long chain quiller tender insulin use: with senior care use Diabetes mellitus complication status: without complication Qualified Code(s): E11.9 - Type 2 diabetes mellitus without complications; Z79.4 - [facility] (current) use of insulin Code(s): E11.9 - Type 2 diabetes mellitus without complications Status: Chronic Assessment and Plan: Will resume some of her diabetic medications as blood sugar is going up. (4) Hyperlipidemia: Code(s): E78.5 - Hyperlipidemia, unspecified Status: Acute Assessment and Plan: Continue with home medication when the patient is more awake. (5) Peripheral neuropathy: Qualifiers: Peripheral neuropathy type: polyneuropathy, other Qualified Code(s): G62.89 - Other specified polyneuropathies Code(s): G62.9 - Polyneuropathy, unspecified Status: Acute Assessment and Plan: Continue with home medication when she is more awake. Her medication reconciliation has not been completed at this time. (6) Epilepsy: Code(s): G40.909 - Epilepsy, unspecified, not intractable, without status epilepticus Status: Acute Assessment and Plan: Continue with home medication. It looks like the patient is on oral Keppra b.i.d. (7) HTN (hypertension): Code(s): I10 - Essential (primary) hypertension Status: Chronic Assessment and Plan: Holding all hypertensive medications at this time due to current hypotension (8) COPD (chronic obstructive pulmonary disease): Code(s): J44.9 - Chronic obstructive pulmonary disease, unspecified Status: Acute Assessment and Plan: Continue with her home inhaler (9) Sleep apnea: Code(s): G47.30 - Sleep apnea, unspecified Status: Acute Assessment and Plan: The patient is noncompliant with her CPAP (10) Bipolar disorder: Code(s): F31.9 - Bipolar disorder, unspecified Status: Acute Assessment and Plan: Continue with home medications. (11) Anxiety: Code(s): F41.9 - Anxiety disorder, unspecified Status: Chronic Assessment and Plan: Patient is somnolent at this time. (12) History of pulmonary embolism: Code(s): Z86.711 - Personal history of pulmonary embolism Status: Acute Assessment and Plan: Continue with her Eliquis Plan Likely discharge in 1-2 days. Will need adjustment of her diabetic medications. DS: Summary Hospital Course Reason for hospitalization: Abnormal labs Narrative: This is a 46-year-old female patient who presented to the emergency department with chief complaint of hypoglycemia.? The patient was discharged from this hospital on 10/30/2022.? The patient had been on metolazone and Lasix.? Nephrology had been consulted at that time.? On her discharge summary it was noted that Lantus glipizide and Januvia were to be lowered? hold? Lantus.? A
[2022-11-06 13:45] LABS: EDCOVIDSCREEN Negative (Negative)
[2022-11-06 14:43] VITALS: BP 115/51; PULSE 70; RESP 17; TEMP 36.6; O2SAT 98
[2022-11-06] MEDS: LINEZOLID 600 MG TABLET PO ×2 (14:57→20:18)
[2022-11-06 20:17] VITALS: PULSE 78
[2022-11-06] MEDS: ATORVASTATIN 20 MG TABLET PO (20:18)
[2022-11-06] MEDS: MELATONIN 5 MG TABLET 10 MG PO (20:18)
[2022-11-06 20:55] LABS: Glucose Point of Care 162 mg/dl (65-105)
[2022-11-06 21:46] VITALS: BP 134/72; PULSE 79; RESP 18; TEMP 36.8; O2SAT 100
== END 2022-11-06 22:00 | DRG 420 ==
LOC: ANHED 11-03 00:22 → ANHIMU 11-03 00:59 → ANH2MED 11-04 15:35
PROVIDERS: Chiropractor; Nurse Practitioner; Admitting Provider Internal Medicine; Emergency Provider Emergency Medicine; PCP Internal Medicine; Visit Provider Family Medicine
DX: E11.649 Type 2 diabetes mellitus with hypoglycemia without coma (principal); N17.9 Acute kidney failure, unspecified; Z79.4 Long term (current) use of insulin; E78.5 Hyperlipidemia, unspecified; E11.42 Type 2 diabetes mellitus with diabetic polyneuropathy; I10 Essential (primary) hypertension; J44.9 Chronic obstructive pulmonary disease, unspecified; G47.30 Sleep apnea, unspecified; F31.9 Bipolar disorder, unspecified; G40.909 Epilepsy, unspecified, not intractable, without status epilepticus; F41.9 Anxiety disorder, unspecified; G89.4 Chronic pain syndrome; Z20.822 Contact with and (suspected) exposure to COVID-19; Z86.711 Personal history of pulmonary embolism; Z95.0 Presence of cardiac pacemaker; Z79.01 Long term (current) use of anticoagulants; Z87.891 Personal history of nicotine dependence
CPT/HCPCS: 36415; 71045; 76642; 80048; 80053; 81001; 82948; 83605; 85025; 87086; 87147; 87181; 87186; 87426; 93005; 96361; 96365; 96366; 96375; 96376; 99285; A9270; C9803; G0378; G0379; J0610; J1815; J7030

== ENCOUNTER 2022-11-20 09:27 | Inpatient (IN) | payer OTHER, SELFPAY ==
[2022-11-20] VITALS (15 sets, daily range): BP systolic 85–130; BP diastolic 45–96; PULSE 58–90; RESP 12–20; TEMP 36.4–37.2; O2SAT 96–100; BMI 44.0
--- NOTE | ~2022-11-20 | XR_ITS ---
EXAMINATION: XR chest 1V DATE: 11/20/2022 11:40 INDICATION: Unresponsive. TECHNIQUE: A single frontal view of the chest was obtained. COMPARISON: Chest single view 11/02/2022, chest CT 10/15/2022 FINDINGS: Sensitivity is decreased by obesity. There is no pneumonia, pleural effusion, or pneumothor ax. Cardiomegaly is noted. There is a left chest wall pacer with leads in the right atrium and right ventricle. Surgical clips in the right upper quadrant are likely from cholecystectomy. IMPRESSION: 1. Cardiomegaly. Reviewed, dictated and finalized at location A. IMPRESSION: 1. Cardiomegaly.
--- NOTE | ~2022-11-20 | CT_ITS ---
EXAMINATION: CT brain wo con DATE: 11/20/2022 11:35 INDICATION: Unresponsive. TECHNIQUE: Computed tomography (CT) of the head was performed without intravenous contrast. The mA wa s adjusted according to patient size. Iterative reconstruction technique was employed. The dose-lengt h product was 605.33 mGy-cm. COMPARISON: Head CT 03/26/2022 FINDINGS: There is no intracranial hemorrhage, acute infarction, or abnormal intracranial mass lesion . The ventricles are normal in size. There is multifocal dental disease. The mastoid air cells are no rmal. There is mild mucosal thickening in the ethmoid sinuses. The orbits are normal. IMPRESSION: 1. Normal brain. Reviewed, dictated and finalized at location A. IMPRESSION: 1. Normal brain.
[2022-11-20 09:36] LABS: Glucose Point of Care 78 mg/dl (65-105)
--- NOTE | 2022-11-20 09:41 | ECG_ITS ---
Measurements Intervals [place] Rate: 70 P: 222 MO: 196 QRS: 44 QRSD: 102 T: 44 QT: 418 QTc: 451 Interpretive Statements ELECTRONIC ATRIAL PACEMAKER LOW QRS VOLTAGE CANNOT RULE OUT SEPTAL INFARCT, AGE INDETERMINATE ABNORMAL ECG COMPARED TO ECG 11/02/2022 23:10:16 NO SIGNIFICANT CHANGES Electronically Signed On 11-21-2022 16:17:25 CDT by Nawaf Odonnell M.D.
--- NOTE | 2022-11-20 09:49 | ED.GENADULT ---
HPI - General Adult General Chief complaint: Recheck/Abnormal Lab/Rx Stated complaint: unresponsive/ low BG Time Seen by Provider: 11/20/22 09:49 Source: patient and EMS Mode of arrival: EMS History of Present Illness HPI narrative: Patient is 46 years old white female brought to the emergency room by ambulance because of unresponsiveness. For at least 40 minutes before EMT arrival. Initially blood glucose was 60, patient remained unresponsive for EMS in the ambulance, placed on 100% nonrebreather because of hypoxia, patient was responsive to painful stimuli at that time. On arrival to the ED patient is awake, audible noisy breathing, is telling me that she is full code. Related Data Home Medications Medication Instructions Recorded Confirmed atorvastatin 20 mg tablet 20 mg PO HS 08/21/19 11/03/22 furosemide 20 mg tablet 40 mg PO BID 01/18/22 11/03/22 albuterol sulfate 90 mcg/actuation 2 puff inhalation Q4H PRN 04/22/22 11/03/22 aerosol inhaler Shortness Of Breath docusate sodium 100 mg capsule 100 mg PO DAILY PRN Constipation 04/22/22 11/03/22 famotidine 20 mg tablet (Pepcid) 20 mg PO DAILY 04/22/22 11/03/22 lisinopril 20 mg tablet 20 mg PO DAILY 04/22/22 11/03/22 loratadine 10 mg tablet 10 mg PO DAILY 04/22/22 11/03/22 melatonin 5 mg tablet 10 mg PO HS 04/22/22 11/03/22 methocarbamol 750 mg tablet 750 mg PO Q8H PRN Muscle Pain 04/22/22 11/03/22 metoprolol tartrate 25 mg tablet 12.5 mg PO BID 04/22/22 11/03/22 promethazine 25 mg tablet 25 mg PO TID PRN Nausea 08/10/22 11/03/22 apixaban 5 mg tablet (Eliquis) 5 mg PO BID 09/21/22 11/03/22 gabapentin 300 mg capsule 300 mg PO TID 09/21/22 11/03/22 insulin lispro 100 unit/mL 5 unit subcut TIDWMEAL 09/21/22 11/03/22 subcutaneous cartridge (Humalog U-100 Insulin) pioglitazone 30 mg tablet (Actos) 10 mg PO BID 09/21/22 11/03/22 polyethylene glycol 3350 17 gram 17 g PO QAM PRN Constipation 09/21/22 11/03/22 oral powder packet (Miralax) sitagliptin phosphate 100 mg 100 mg PO BID 09/21/22 11/03/22 tablet (Januvia) insulin glargine 100 unit/mL 40 unit subcut HS 10/15/22 11/03/22 subcutaneous solution (Lantus U-100 Insulin) levetiracetam 500 mg tablet 500 mg PO BID 10/15/22 11/03/22 Allergies Allergy/AdvReac Type Severity Reaction Status Date / Time lidocaine Allergy Intermediate HIVES Verified 10/15/22 18:06 nitroglycerin Allergy Intermediate HIVES Verified 10/15/22 18:06 aspirin Allergy Mild Hives Verified 10/15/22 18:06 citalopram Allergy Mild Rash Verified 10/15/22 18:06 escitalopram Allergy Mild Hives Verified 10/15/22 18:06 ibuprofen Allergy Mild Hives Verified 10/15/22 18:06 Penicillins Allergy Mild HIVES PER Verified 10/15/22 18:06 UNCODED ALLERGIES 08/27/12 procaine Allergy Mild Hives Verified 10/15/22 18:06 propoxyphene Allergy Mild Hives Verified 10/15/22 18:06 doxycycline Allergy Unknown Hives Verified 10/15/22 18:06 meloxicam Allergy Unknown HIVES Verified 10/15/22 18:06 Sulfa (Sulfonamide Allergy Unknown HIVES PER Verified 10/15/22 18:06 Antibiotics) UNCODED ALLERGIES 08/27/12 sulfamethoxazole Allergy Unknown Hives Verified 10/15/22 18:06 trimethoprim Allergy Unknown Hives Verified 10/15/22 18:06 amoxicillin Allergy Hives Verified 10/15/22 18:07 codeine Allergy Hives Verified 10/15/22 18:06 iohexol Allergy Hives Verified 10/15/22 18:06 [From contrast - CT, X-RAY] adhesive AdvReac Unknown SILK TAPE= Verified 10/15/22 18:06 HIVES imipenem AdvReac Itching Verified 10/15/22 18:06 Review of Systems Review of Systems: ROS unobtainable: Yes unobtainable due to medical condition and unobtainable due to mental status PMFSH Past Medical History Medical History Anemia Anxiety Arthritis Asthma Bipolar disorder Chronic anticoagulation For history of DVT and PE. Chronic obstructive pulmonary disease Chronic pain syndrome Deep venous thrombosis Depression Eczema Karin
--- NOTE | 2022-11-20 09:50 | ECG_ITS ---
Measurements Intervals [place] Rate: 70 P: 222 [place]: 196 QRS: 44 QRSD: 102 T: 44 QT: 418 QTc: 451 Interpretive Statements ELECTRONIC ATRIAL PACEMAKER LOW QRS VOLTAGE CANNOT RULE OUT SEPTAL INFARCT AGE INDETERMINATE ABNORMAL ECG COMPARED TO ECG 11/02/2022 23:10:16 NO SIGNIFICANT CHANGES Electronically Signed On 11-21-2022 16:17:06 CDT by Nawaf Odonnell M.D.
[2022-11-20 10:28] LABS: Appearance Urine Cloudy (Clear); Bacteria Urine None Seen /hpf; Bilirubin Urine Negative (Negative); Blood Urine Negative (Negative); Calcium Oxalate Crystals Urine Present /hpf; Color Urine Yellow (Yellow); Glucose Urine UA Negative (Negative); Hyaline Casts Urine Present /lpf; Ketones Urine Negative (Negative); Leukocyte Esterase Ur 3+ LEU/UL (Negative); Need Manual Microscopic Reviewed; Nitrate Urine Negative (Negative); Non Pathogenic Casts >20; Protein Urine Negative (Negative); RBC Urine 0-2 /hpf (0-2); Squamous Epithelial Cell Urine Moderate /hpf (Few); Transitional Epi Cells Urine Present /hpf (None Seen); Urobilinogen Urine 0.2 mg/dL (<2.0); WBC Urine 51-100 /hpf
--- NOTE | 2022-11-20 10:44 | PC.NURSE ---
multiple attempts at IV access and blood draw without success. Judi SANTILLAN at bedside for ultrasound placement.
[2022-11-20 11:05] LABS: Add Urine Microscopic? YES
[2022-11-20 11:06] LABS: WBC Clumps Urine Present /HPF
--- NOTE | 2022-11-20 11:06 | PC.NURSE ---
TYRELL Cottrell at bedside for ultrasound IV placement.
[2022-11-20 11:45] LABS: Basophils Percent Auto 0.4 % (0.2-1.2); Eosinophils Absolute Auto 0.2 K/mm3 (0-0.3); Eosinophils Percent Auto 2.2 % (0-4.4); Hematocrit 28.2 % (37.0-47.0); Hemoglobin 8.8 g/dL (12.0-15.0); Immature Granulocyte Absolute 0.05 K/mm3 (0.00-0.031); Immature Granulocyte Percent A 0.5 % (0-0.5); Lymphocytes Absolute Auto 1.29 K/mm3 (0.9-3.2); Mean Corpuscular HGB Conc 31.2 g/dl (32-36); Mean Corpuscular Hemoglobin 28.2 pg (26-34); Mean Corpuscular Volume 90.4 fl (80-100); Mean Platelet Volume 10.2 fl (7.4-10.4); Monocytes Absolute Auto 0.7 K/mm3 (0.1-0.6); Neutrophils Percent Auto 75.9 % (45.5-73.1); Platelet Count Result 178 k/mm3 (150-375); Red Blood Count 3.12 M/mm3 (4.2-5.4); Red Cell Distribution Width 14.1 % (11.5-14.5); White Blood Count 9.2 K/mm3 (4.5-10.0)
--- NOTE | 2022-11-20 11:47 | PC.NURSE ---
per MD pt give 1L of ns at a time. 1L started on pt at this time
[2022-11-20 11:58] LABS: INR 1.3; Prothrombin Time 16.1 Seconds (11.1-14.7)
[2022-11-20 11:59] LABS: Partial Thromboplastin Time 26.8 SECONDS (22.3-36.8)
[2022-11-20 12:01] LABS: Lactic Acid Reflex 0.8 mmol/L (0.7-2.0)
[2022-11-20 12:19] LABS: Troponin I < 0.012 ng/mL (0.000-0.034)
[2022-11-20 12:22] LABS: Alanine Aminotransferase 17 U/L (6-35); Albumin Level 3.5 g/dL (3.5-5.1); Alkaline Phosphatase 66 U/L (38-126); Anion Gap 6 mmol/L (8-16); Aspartate Amino Transferase 23 U/L (14-36); Bilirubin,Total 0.5 mg/dL (0.2-1.3); Blood Urea Nitrogen 106 mg/dL (7-17); CRP 1.4 mg/dL (<1.0); Calcium 8.5 mg/dL (8.4-10.2); Carbon Dioxide 30 mmol/L (22-30); Chloride 97 mmol/L (98-107); Estimated Glomerular Filt Rate 23; Glucose 70 mg/dL (65-110); Potassium 6.2 mmol/L (3.4-5.0); Sodium 133 mmol/L (137-145)
[2022-11-20 12:40] LABS: Fractional Inspired Oxygen 32 %; HCO3 VBG 25.4 mEq/l (24.0-30.0); PCO2 VBG 58.4 mmHg (42.0-48.0); pH VBG 7.257 (7.300-7.400)
[2022-11-20 12:41] LABS: Device NASAL CANNULA; PO2 VBG < 27.0 mmHg (35.0-45.0)
[2022-11-20 12:48] LABS: Alveolar/Arterial O2 Gradient 60.3 mmHg; Base Excess ABG -4.3 mEq/l (+/-2.0); Device NASAL CANNULA; Fractional Inspired Oxygen 32 %; HCO3 ABG 21.5 mEq/l (22.0-26.0); Modified Allen's Test Pass; Oxygen Content ABG 13.9 %vol (16.0-22.0); Oxyhemoglobin 97.1 % THb (90.0-100.0); PCO2 ABG 42.6 mmHg (35.0-45.0); PO2 FiO2 Ratio Arterial Blood 3.69 %; Site Drawn LEFT RADIAL; pH ABG 7.321 (7.350-7.450)
[2022-11-20] MEDS: DEXTROSE 50% 25 GM/50 ML SYRINGE IV PUSH ×2 (13:24→18:08)
[2022-11-20] MEDS: SODIUM BICARBONATE 8.4% 50 MEQ/50 ML SYRINGE IV PUSH (13:24)
[2022-11-20] MEDS: CALCIUM GLUCONATE 1,000 MG/10 ML VIAL 1000 MG IV PUSH (13:25)
[2022-11-20] MEDS: INSULIN HUMAN REGULAR (*BKC) 100 UNITS/ML 10 UNITS IV PUSH (13:25)
[2022-11-20] MEDS: SODIUM POLYSTYRENE SULFONONATE 15 GM/60 ML BTL 30 GM PO (13:25)
--- NOTE | 2022-11-20 14:30 | PM.IMHP ---
H&P: HPI History of Present Illness Date/Time: 11/20/22 14:30 Chief Complaint: Unresponsive. Narrative: This is 46-year-old female with multiple medical problems including insulin-dependent diabetes, hypertension, GERD, seizures, DVT and PE on chronic anticoagulation, bipolar disorder, sleep apnea, diastolic dysfunction, noncompliance, and other comorbidities who presented to the emergency department from [facility] for evaluation after she was found unresponsive. Patient is not able to provide an accurate history as she is somnolent and confused and thus a majority of the following is obtained via a review of her electronic medical records as well as discussions with nursing staff. She is well known to the hospitalist service from admissions over the years. She has been admitted to the hospitalist service several times this year and has been treated for urinary tract infections, significant weight gain due to diastolic dysfunction, acute kidney injury, and hypoglycemia. In fact she was just discharged from the hospital on 11/06/2022 after being admitted for acute kidney injury related to diuretic therapy and hypoglycemia. She was hydrated and her diuretics were held with improvement in her renal function. Diabetic medications were held initially and her glucose improved once she was eating. Furosemide, Lantus, sitagliptin, pioglitazone, and glipizide were resumed although her glipizide was decreased from 10 mg b.i.d. to 10 mg once a day. This morning she was reportedly unresponsive for 40 minutes and EMS was summoned. Her glucose was 60 on their arrival and she was reportedly given dextrose. She was also placed on a non-rebreather due to hypoxia. On arrival to ED she was responsive to painful stimuli only but once her glucose came up a bit more she started to wake up. On arrival to the ED her blood pressure was 85/45 and she was afebrile. BMP was significant for a sodium of 133, potassium 6.2, chloride 97, carbon dioxide 30, BUN 106, creatinine 2.30, glucose 75. She received a 3 L fluid bolus in the ED with improvement in her blood pressures and a repeat BMP showed improvement in her potassium and BUN/creatinine. She is being admitted in this setting for further treatment and evaluation. At the time my evaluation she is asleep but does arouse to voice. She is confused as to the events that happened earlier today. She denies headache, fever, chills, sweats, sore throat, cough, chest pain, shortness a breath, nausea, vomiting, diarrhea, abdominal pain, and back pain. Review of Systems Review of Systems: Twelve systems were reviewed though limited as she is confused as to the events that happened today. She states no to all questions asked. [facility] Past Medical History Medical History (Updated 11/20/22 @ 21:13 by Suzy Melgar PA-C) Anemia Anxiety Arthritis Asthma Bipolar disorder Chronic anticoagulation For history of DVT and PE. Chronic kidney disease Chronic obstructive pulmonary disease Chronic pain syndrome Deep venous thrombosis Depression Diastolic dysfunction Eczema Epilepsy Gastroesophageal reflux disease Herniated disc History of MRSA infection Hyperlipidemia Hypertension Insulin dependent diabetes mellitus Historically poorly controlled. Obesity Obstructive sleep apnea Non compliant with treatment. Peripheral neuropathy Pulmonary embolism Seizures Suicide attempt T11 vertebral fracture Nondisplaced fracture of the right T11 inferior articulating facet. No surgical intervention required. Surgical History Surgical History History of bilateral knee replacement History of cardiac catheterization History of cardiac pacemaker For paroxysmal ventricular arrhythmia/tachycardia. History of cholecystectomy Family History Family History Mother Heart disease Acute myocardial infarction Uterine cancer [place]
[2022-11-20 14:53] LABS: Anion Gap 9 mmol/L (8-16); Blood Urea Nitrogen 95 mg/dL (7-17); Calcium 8.6 mg/dL (8.4-10.2); Carbon Dioxide 30 mmol/L (22-30); Chloride 100 mmol/L (98-107); Creatine Kinase 93 U/L (30-135); Estimated Glomerular Filt Rate 25; Glucose 75 mg/dL (65-110); Potassium 5.4 mmol/L (3.4-5.0); Sodium 139 mmol/L (137-145)
[2022-11-20 16:05] LABS: Glucose Point of Care < 20 mg/dl (65-105)
[2022-11-20 16:05] LABS: Glucose Point of Care < 20 mg/dl (65-105)
[2022-11-20] MEDS: DEXTROSE 50% 25 GM/50 ML SYRINGE (16:05)
[2022-11-20] MEDS: DEXTROSE 10% 1,000 ML 100 ML IV CONT (16:55)
[2022-11-20] MEDS: SODIUM CHLORIDE 0.9% IV 1,000 ML 125 ML IV CONT (16:55)
[2022-11-20 17:01] LABS: Glucose Point of Care 65 mg/dl (65-105)
[2022-11-20 18:07] LABS: Glucose Point of Care 58 mg/dl (65-105)
[2022-11-20 19:07] LABS: Glucose Point of Care 119 mg/dl (65-105)
[2022-11-20 20:01] LABS: Glucose Point of Care 108 mg/dl (65-105)
--- NOTE | 2022-11-20 22:13 | ADMGEN ---
This patient, Valerie Nguyen, was admitted to IMU Room 232-01 at 2200. Patient/family oriented to hospital policies and general routines including ID bracelet, bed and alarms, visiting hours, pain management, procedures, bathroom and other care routines, personal items, smoking policy, room service/diet, and visiting hours. Information on how to activate the Rapid Response Team has been discussed. Patient/Family are encouraged to report perceived risks to care and to ask questions if they do not understand what they are told or what they should do.
[2022-11-20 22:17] LABS: Glucose Point of Care 163 mg/dl (65-105)
[2022-11-20 23:12] LABS: Glucose Point of Care 160 mg/dl (65-105)
[2022-11-21] VITALS (17 sets, daily range): BP systolic 103–147; BP diastolic 36–115; PULSE 78–102; RESP 16–22; TEMP 36.4–37.1; O2SAT 92–100
[2022-11-21 00:02] LABS: Glucose Point of Care 162 mg/dl (65-105)
[2022-11-21] MEDS: SODIUM CHLORIDE 0.9% IV 1,000 ML 125 ML IV CONT (01:10)
[2022-11-21 02:06] LABS: Glucose Point of Care 179 mg/dl (65-105)
[2022-11-21] MEDS: DEXTROSE 10% 1,000 ML 100 ML IV CONT (03:08)
[2022-11-21 04:30] LABS: Glucose Point of Care 186 mg/dl (65-105)
[2022-11-21 05:59] LABS: Anion Gap 7 mmol/L (8-16); Blood Urea Nitrogen 83 mg/dL (7-17); Calcium 7.7 mg/dL (8.4-10.2); Carbon Dioxide 20 mmol/L (22-30); Chloride 105 mmol/L (98-107); Estimated Glomerular Filt Rate 37; Glucose 180 mg/dL (65-110); Magnesium 2.5 mg/dL (1.6-2.3); Potassium 5.3 mmol/L (3.4-5.0); Sodium 132 mmol/L (137-145)
[2022-11-21 06:31] LABS: Thyroid Stimulating Hormone Reflex 0.843 uIU/mL (0.465-4.68)
[2022-11-21 06:44] LABS: Basophils Percent Auto 0.3 % (0.2-1.2); Eosinophils Percent Auto 0.3 % (0-4.4); Hemoglobin 7.1 g/dL (12.0-15.0); Immature Granulocyte Absolute 0.04 K/mm3 (0.00-0.031); Immature Granulocyte Percent A 0.4 % (0-0.5); Lymphocytes Absolute Auto 0.83 K/mm3 (0.9-3.2); Lymphocytes Percent Auto 8.1 % (18.3-44.2); Mean Corpuscular HGB Conc 29.6 g/dl (32-36); Mean Corpuscular Hemoglobin 28.4 pg (26-34); Mean Platelet Volume 10.2 fl (7.4-10.4); Monocytes Absolute Auto 0.8 K/mm3 (0.1-0.6); Monocytes Percent Auto 7.3 % (2.6-8.5); Neutrophils Absolute Auto 8.6 K/mm3 (1.3-6.7); Neutrophils Percent Auto 83.6 % (45.5-73.1); Platelet Count Result 147 k/mm3 (150-375); Red Cell Distribution Width 14.4 % (11.5-14.5); White Blood Count 10.3 K/mm3 (4.5-10.0)
[2022-11-21 07:28] LABS: Hypochromasia 1+ (NORMAL); Schistocytes None Seen (NORMAL)
[2022-11-21] MEDS: DEXTROSE 5%/0.9% SOD CHL 1,000 ML 100 ML IV CONT ×2 (10:56→20:00)
--- NOTE | 2022-11-21 11:39 | PM.IMPN ---
Progress Note: A&P Assessment and Plan (1) Hypoglycemia: Code(s): E16.2 - Hypoglycemia, unspecified Status: Acute Assessment and Plan: Likely from not eating well. Continue D5 NS. Monitor blood sugars (2) Acute kidney injury: Code(s): N17.9 - Acute kidney failure, unspecified Status: Acute Assessment and Plan: Etiology unclear. Appears to be secondary to not eating and drinking well. Renal functions are improving. Continue IV fluids. Monitor BMP (3) Hyperkalemia: Code(s): E87.5 - Hyperkalemia Status: Acute Assessment and Plan: Treated in the ED with improvement in her potassium to 5.4. Continue IV fluid rehydration as above. Repeat BMP in a.m. (4) Unresponsive episode: Code(s): R41.89 - Other symptoms and signs involving cognitive functions and awareness Status: Acute Assessment and Plan: Patient was unresponsive this morning, most likely due to hypoglycemia as mentation improves with improvement in her glucose. Brain CT did not show any acute findings. No hypercarbia on ABG. (5) Insulin dependent diabetes mellitus: Status: Acute Assessment and Plan: Hold insulin and oral hypoglycemics due to profound hypoglycemia as above. Would consider discontinuing sulfonylurea altogether. (6) Diastolic dysfunction: Code(s): I51.89 - Other ill-defined heart diseases Status: Acute Assessment and Plan: She appears quite dry on exam. Monitor volume status closely while hydrating. Diuretics on hold. (7) Obstructive sleep apnea: Code(s): G47.33 - Obstructive sleep apnea (adult) (pediatric) Status: Acute Assessment and Plan: CPAP will be provided for the patient to use while hospitalized. 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 Subjective Date/time seen: 11/21/22 11:39 Patient is more awake and alert this morning. denies any complaints at this time although she looks to be in distress Review of Systems Review of Systems: Twelve systems were reviewed though limited as she is confused as to the events that happened today. She states no to all questions asked. Exam Narrative: General: Ill-appearing female in the semi-Whittaker position in bed. Asleep but easily arousable to name. Weight: 99.9 kg. BMI: 44.5. HEENT: Normocephalic, atraumatic. Pupils are reactive. sclera anicteric. Dry mucous membranes. Nasal cannula in place. Oropharynx is crowded and not visualized Neck: Supple. Exam limited due to neck circumference. No obvious JVD or lymphadenopathy. Respiratory: Asleep and snoring but rouses easily. Nasal cannula in place. Lung sounds diminished due to poor effort. Rhonchi anteriorly which improved with cough. Cardiovascular: Regular rate and rhythm with S1-S2. Gastrointestinal: Abdomen is morbidly obese, nontender, and nondistended with positive bowel sounds. Genitourinary: Jenkins catheter draining light yellow urine. Skin: Warm and dry. Maceration and breakdown on the buttocks. Legs are dry and scaly. Extremities: No cyanosis, clubbing, or significant edema. Radial 2+. Pedal pulses diminished but palpable. Neurological: Alert to name, age, and date of . Not oriented to place or time right now. Cranial nerves 2-12 are grossly intact. Speech is clear. No facial asymmetry. Generalized weakness without obvious focal findings. No gross focal deficits. Psychiatric: Somnolent and a bit confused. Objective Data Vital Signs Vital Signs: Vital Signs - 24 hr 11/20/22 11:45 11/20/22 11:59 11/20/22 12:25 Temperature Pulse Rate 70 70 Respiratory Rate 12 13 Blood Pressure 85/52 L 99/75 L Pulse Oximetry 100 100 100 Oxygen Delivery Nasal Cannula Oxygen Flow Rate 3 Fraction of Inspired Oxygen 11/20/22 13:36 11/20/22 14:36 11/20/22 15:28 Temp
[2022-11-21 11:52] LABS: Glucose Point of Care 197 mg/dl (65-105)
[2022-11-21 16:51] LABS: Glucose Point of Care 186 mg/dl (65-105)
[2022-11-21] MEDS: levETIRAcetam 500 MG TABLET PO (17:04)
[2022-11-21] MEDS: APIXABAN 5 MG TABLET PO (17:04)
[2022-11-21] MEDS: ALPRAZolam (*CRX) 0.25 MG TABLET PO (18:32)
[2022-11-21] MEDS: GABAPENTIN 300 MG CAPSULE PO (18:32)
[2022-11-21 21:40] LABS: Glucose Point of Care 237 mg/dl (65-105)
[2022-11-21 23:19] LABS: Glucose Point of Care 244 mg/dl (65-105)
[2022-11-22] VITALS (12 sets, daily range): BP systolic 121–150; BP diastolic 44–70; PULSE 85–100; RESP 18–20; TEMP 36.8–37.1; O2SAT 96–100
[2022-11-22] MEDS: ALPRAZolam (*CRX) 0.25 MG TABLET PO (01:30)
[2022-11-22] MEDS: DEXTROSE 5%/0.9% SOD CHL 1,000 ML 100 ML IV CONT (06:35)
[2022-11-22 08:01] LABS: Glucose Point of Care 227 mg/dl (65-105)
[2022-11-22 08:44] LABS: Anion Gap 5 mmol/L (8-16); Blood Urea Nitrogen 60 mg/dL (7-17); Calcium 8.5 mg/dL (8.4-10.2); Carbon Dioxide 25 mmol/L (22-30); Chloride 109 mmol/L (98-107); Estimated Glomerular Filt Rate 60; Glucose 257 mg/dL (65-110); Potassium 4.8 mmol/L (3.4-5.0); Sodium 139 mmol/L (137-145)
[2022-11-22] MEDS: levETIRAcetam 500 MG TABLET PO (09:01)
[2022-11-22] MEDS: FAMOTIDINE 20 MG TABLET PO (09:01)
[2022-11-22] MEDS: APIXABAN 5 MG TABLET PO (09:01)
[2022-11-22] MEDS: GABAPENTIN 300 MG CAPSULE PO ×2 (09:01→13:17)
[2022-11-22 11:36] LABS: Glucose Point of Care 267 mg/dl (65-105)
--- NOTE | 2022-11-22 11:43 | PM.IMPN ---
Progress Note: A&P Assessment and Plan (1) Hypoglycemia: Code(s): E16.2 - Hypoglycemia, unspecified Status: Acute Assessment and Plan: Likely from not eating well. Continue D5 NS. Monitor blood sugars (2) Acute kidney injury: Code(s): N17.9 - Acute kidney failure, unspecified Status: Acute Assessment and Plan: Etiology unclear. Appears to be secondary to not eating and drinking well. Renal functions are improving. Continue IV fluids. Monitor BMP (3) Hyperkalemia: Code(s): E87.5 - Hyperkalemia Status: Acute Assessment and Plan: Treated in the ED with improvement in her potassium to 5.4. Continue IV fluid rehydration as above. Repeat BMP in a.m. (4) Unresponsive episode: Code(s): R41.89 - Other symptoms and signs involving cognitive functions and awareness Status: Acute Assessment and Plan: Patient was unresponsive this morning, most likely due to hypoglycemia as mentation improves with improvement in her glucose. Brain CT did not show any acute findings. No hypercarbia on ABG. (5) Insulin dependent diabetes mellitus: Status: Acute Assessment and Plan: Hold insulin and oral hypoglycemics due to profound hypoglycemia as above. Would consider discontinuing sulfonylurea altogether. (6) Diastolic dysfunction: Code(s): I51.89 - Other ill-defined heart diseases Status: Acute Assessment and Plan: She appears quite dry on exam. Monitor volume status closely while hydrating. Diuretics on hold. (7) Obstructive sleep apnea: Code(s): G47.33 - Obstructive sleep apnea (adult) (pediatric) Status: Acute Assessment and Plan: CPAP will be provided for the patient to use while hospitalized. 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 Subjective Date/time seen: 11/22/22 11:43 Interval history: 46-year-old female with past medical history of multiple admissions, insulin-dependent diabetes, PE on could chronic anticoagulation, heart failure, bipolar and noncompliance is presenting to the ER after being found unresponsive and hypoglycemic. No overnight events noted. No chest pain or shortness of breath. No nausea, vomiting or diarrhea. No fevers or chills. Review of Systems Review of Systems: 12 point review of systems was assessed and was negative except as noted in the HPI Exam Narrative: General: No acute distress, alert and oriented per baseline HEENT: Atraumatic, normocephalic, mucous membranes moist CV: Regular rate and rhythm, S1, S2 Lungs: Clear to auscultation bilaterally, no rales or crackles noted, no wheezes, good air entry Abdomen: Soft, nontender, nondistended Extremities: Normal to inspection Skin: No rashes noted, no lesions or wounds seen Psych: Euthymic, normal affect Objective Data Vital Signs Vital Signs: Vital Signs - 24 hr 11/21/22 15:54 11/21/22 16:00 11/21/22 12:00 Temperature 98.7 F Pulse Rate 96 Respiratory Rate 20 Blood Pressure 126/36 L Pulse Oximetry 92 Oxygen Delivery Room Air Room Air 11/21/22 12:00 11/21/22 14:00 11/21/22 16:00 Temperature Pulse Rate 98 88 97 Respiratory Rate Blood Pressure Pulse Oximetry Oxygen Delivery 11/21/22 18:00 11/21/22 20:00 11/21/22 23:43 Temperature 97.7 F 97.6 F Pulse Rate 89 102 H 98 Respiratory Rate 20 20 Blood Pressure 120/63 114/50 L Pulse Oximetry 98 100 Oxygen Delivery 11/21/22 20:00 11/21/22 22:00 11/21/22 20:00 Temperature Pulse Rate 102 H 100 Respiratory Rate Blood Pressure Pulse Oximetry Oxygen Delivery Room Air 11/22/22 00:00 11/22/22 00:00 11/22/22 02:00 Temperature Pulse Rate 90 100 Respiratory Rate Blood Pressure Pulse Oximetry Oxygen Delivery Room Air 11/22/22 04:
--- NOTE | 2022-11-22 11:48 | PM.DS ---
DS: Admitting Diagnosis Discharge Date 11/22/22 Admitting Diagnosis hypoglycemia DS: Discharge Diagnosis Discharge Diagnosis (1) Hypoglycemia: Code(s): E16.2 - Hypoglycemia, unspecified Status: Acute Assessment and Plan: Likely from not eating well. Continue D5 NS. Monitor blood sugars (2) Acute kidney injury: Code(s): N17.9 - Acute kidney failure, unspecified Status: Acute Assessment and Plan: Etiology unclear. Appears to be secondary to not eating and drinking well. Renal functions are improving. Continue IV fluids. Monitor BMP (3) Hyperkalemia: Code(s): E87.5 - Hyperkalemia Status: Acute Assessment and Plan: Treated in the ED with improvement in her potassium to 5.4. Continue IV fluid rehydration as above. Repeat BMP in a.m. (4) Unresponsive episode: Code(s): R41.89 - Other symptoms and signs involving cognitive functions and awareness Status: Acute Assessment and Plan: Patient was unresponsive this morning, most likely due to hypoglycemia as mentation improves with improvement in her glucose. Brain CT did not show any acute findings. No hypercarbia on ABG. (5) Insulin dependent diabetes mellitus: Status: Acute Assessment and Plan: Hold insulin and oral hypoglycemics due to profound hypoglycemia as above. Would consider discontinuing sulfonylurea altogether. (6) Diastolic dysfunction: Code(s): I51.89 - Other ill-defined heart diseases Status: Acute Assessment and Plan: She appears quite dry on exam. Monitor volume status closely while hydrating. Diuretics on hold. (7) Obstructive sleep apnea: Code(s): G47.33 - Obstructive sleep apnea (adult) (pediatric) Status: Acute Assessment and Plan: CPAP will be provided for the patient to use while hospitalized. (8) Chronic anticoagulation: Code(s): Z79.01 - [employer] (current) use of anticoagulants Status: Acute Assessment and Plan: Continue apixaban. DS: Summary Hospital Course Hospital Course: 46-year-old female with past medical history of multiple admissions, insulin-dependent diabetes, PE on could chronic anticoagulation, heart failure, bipolar and noncompliance is presenting to the ER after being found unresponsive and hypoglycemic. Insulin dosing was decreased, symptoms resolved. She was discharged in stable condition. See above and med rec for details. Time Spent with Patient Time attestation: Total time spent providing and/or coordinating discharge services: Exam Narrative: General: No acute distress, alert and oriented per baseline HEENT: Atraumatic, normocephalic, mucous membranes moist CV: Regular rate and rhythm, S1, S2 Lungs: Clear to auscultation bilaterally, no rales or crackles noted, no wheezes, good air entry Abdomen: Soft, nontender, nondistended Extremities: Normal to inspection Skin: No rashes noted, no lesions or wounds seen Psych: Euthymic, normal affect DS: Data Data Completed and Pending Labs on day of discharge: Labs from last 24 hours 11/22/22 11/22/22 11/22/22 11:34 08:16 07:48 Sodium 139 Potassium 4.8 Chloride 109 H Carbon Dioxide 25 Anion Gap 5 L BUN 60 H D Creatinine 1.00 Estim Creat Clear Calc Not Reportable Estimated GFR 60 Glucose 257 H POC Capillary Glucose 267 H 227 H Calcium 8.5 11/21/22 11/21/22 11/21/22 23:11 20:09 16:37 Sodium Potassium Chloride Carbon Dioxide Anion Gap BUN Creatinine Estim Creat Clear Calc Estimated GFR Glucose POC Capillary Glucose 244 H 237 H 186 H Calcium 11/21/22 07:50 Sodium Potassium Chloride Carbon Dioxide Anion Gap BUN Creatinine Estim Creat Clear Calc Estimated GFR Glucose POC Capillary Glucose 197 H Calcium Preliminary micro results at discharge 11/20/22 20:18 Blood Culture - Prel
[2022-11-22 13:17] LABS: EDCOVIDSCREEN Negative (Negative)
[2022-11-24 08:02] LABS: Glucose Point of Care 192 mg/dl (65-105)
== END 2022-11-22 17:18 | DRG 420 ==
LOC: ANHED 15:55 → ANHIMU 11-21 08:15
PROVIDERS: Hospitalist; Physician Assistant; Admitting Provider Family Medicine; Emergency Provider Emergency Medicine; PCP Internal Medicine; Visit Provider Student in an Organized Health Care Education/Training Program
DX: E11.649 Type 2 diabetes mellitus with hypoglycemia without coma (principal); G93.41 Metabolic encephalopathy; N17.9 Acute kidney failure, unspecified; E11.22 Type 2 diabetes mellitus with diabetic chronic kidney disease; E11.42 Type 2 diabetes mellitus with diabetic polyneuropathy; E87.5 Hyperkalemia; I12.9 Hypertensive chronic kidney disease with stage 1 through stage 4 chronic kidney disease, or unspecified chronic kidney disease; N18.9 Chronic kidney disease, unspecified; J44.9 Chronic obstructive pulmonary disease, unspecified; K21.9 Gastro-esophageal reflux disease without esophagitis; E78.5 Hyperlipidemia, unspecified; E66.9 Obesity, unspecified; M19.90 Unspecified osteoarthritis, unspecified site; G47.33 Obstructive sleep apnea (adult) (pediatric); F31.9 Bipolar disorder, unspecified; G89.4 Chronic pain syndrome; F41.9 Anxiety disorder, unspecified; Z20.822 Contact with and (suspected) exposure to COVID-19; Z96.653 Presence of artificial knee joint, bilateral; Z86.711 Personal history of pulmonary embolism; Z86.718 Personal history of other venous thrombosis and embolism; Z95.0 Presence of cardiac pacemaker; Z79.4 Long term (current) use of insulin; Z79.01 Long term (current) use of anticoagulants; Z87.891 Personal history of nicotine dependence; G40.909 Epilepsy, unspecified, not intractable, without status epilepticus
CPT/HCPCS: 36415; 36600; 70450; 71045; 80048; 80053; 81001; 81025; 82550; 82803; 82805; 82948; 83605; 83735; 84443; 84484; 85025; 85610; 85730; 86140; 87040; 87086; 87088; 87426; 93005; 94660; 96360; 96361; 96365; 96375; 96376; 99284; 99285; A9270; C9803; G0378; G0379; J0612; J0696; J1815; J7030; J7042

== ENCOUNTER 2022-12-17 17:32 | Inpatient (IN) | payer OTHER, SELFPAY ==
[2022-12-17] VITALS (23 sets, daily range): BP systolic 94–143; BP diastolic 58–91; PULSE 70–120; RESP 9–21; TEMP 36.4; O2SAT 100
--- NOTE | ~2022-12-17 | XR_ITS ---
EXAMINATION: XR chest 1V portable Exam Date/Time: 12/17/2022 18:12 CDT HISTORY: syncope Comparison: 11/20/2022. RESULT: Lines, tubes, and devices: Left chest pacer with intact leads. Pericholecystic knee. Lungs and pleura: Exam limited by technique and body habitus. Slight rightward rotation. Lungs gross ly clear. Cardiomediastinal silhouette: Stable. Other: No acute osseous or upper abdominal finding. IMPRESSION: No acute cardiopulmonary process. Reviewed, dictated and finalized at location K.
--- NOTE | ~2022-12-17 | CT_ITS ---
Non-contrast Head CT History: Altered mental status COMPARISON: 11/20/2022 Technique: Axial non-contrast imaging of the brain was performed. Dose reduction technique was used on this scan by utilizing automated exposure control and iterative reconstruction technique. The dose -length product (DLP) was 605.33 mGy-cm. Findings: There is no evidence of intracranial hemorrhage, mass lesion, or acute infarct. Brain par enchyma appears normal. The ventricles and subarachnoid spaces are normal in size. The calvarium ap pears normal. The visualized paranasal sinuses and mastoid air cells are clear. Impression: No significant abnormality seen. Reviewed, dictated and finalized at location . Impression: No significant abnormality seen.
--- NOTE | 2022-12-17 17:48 | ECG_ITS ---
Measurements Intervals [place] Rate: 70 P: 185 WV: 203 QRS: 33 QRSD: 77 T: 41 QT: 383 QTc: 413 Interpretive Statements ELECTRONIC ATRIAL PACEMAKER LOW QRS VOLTAGE- DIFFUSE LEADS BORDERLINE ECG COMPARED TO ECG 11/20/2022 09:37:22 NO SIGNIFICANT CHANGES Electronically Signed On 12-17-2022 21:12:53 CDT by Kalin Castorena D.O.
--- NOTE | 2022-12-17 18:02 | ED.GENADULT ---
HPI - General Adult General Chief complaint: Recheck/Abnormal Lab/Rx <Jayne Hinkle PA-C - Last Filed: 12/18/22 02:22> Stated complaint: HYPOGLYCEMIC <Jayne Hinkle PA-C - Last Filed: 12/18/22 02:22> Time Seen by Provider: 12/17/22 17:41 <Jayne Hinkle PA-C - Last Filed: 12/18/22 02:22> History of Present Illness HPI narrative: Patient is a 47-year-old female presenting from [facility] due to altered mental status and syncope. EMS was called and is noted that her blood sugar was in the 30s, she was given 250 mL of D10 and patient became more alert and responsive. Repeat sugar is 137. Patient is now alert and oriented, states that she just feels a little tired. Patient has a complex medical history and has had numerous admissions to the hospital in the past several months. <Jayne Hinkle PA-C - Last Filed: 12/18/22 02:22> Related Data Home medications: Home Medications Medication Instructions Recorded Confirmed atorvastatin 20 mg tablet 20 mg PO HS 08/21/19 12/18/22 furosemide 20 mg tablet 40 mg PO BID 01/18/22 12/18/22 albuterol sulfate 90 mcg/actuation 2 puff inhalation Q4H PRN 04/22/22 12/18/22 aerosol inhaler Shortness Of Breath docusate sodium 100 mg capsule 100 mg PO DAILY PRN Constipation 04/22/22 12/18/22 famotidine 20 mg tablet (Pepcid) 20 mg PO DAILY 04/22/22 12/18/22 lisinopril 20 mg tablet 20 mg PO DAILY 04/22/22 12/18/22 loratadine 10 mg tablet 10 mg PO DAILY 04/22/22 12/18/22 melatonin 5 mg tablet 10 mg PO HS 04/22/22 12/18/22 methocarbamol 750 mg tablet 750 mg PO Q8H PRN Muscle Pain 04/22/22 12/18/22 metoprolol tartrate 25 mg tablet 12.5 mg PO BID 04/22/22 12/18/22 promethazine 25 mg tablet 25 mg PO Q8H PRN Nausea 08/10/22 12/18/22 apixaban 5 mg tablet (Eliquis) 5 mg PO BID 09/21/22 12/18/22 gabapentin 300 mg capsule 300 mg PO TID 09/21/22 12/18/22 insulin lispro 100 unit/mL 5 unit subcut TIDWMEAL 09/21/22 12/18/22 subcutaneous cartridge (Humalog U-100 Insulin) pioglitazone 30 mg tablet (Actos) 15 mg PO DAILY 09/21/22 12/18/22 sitagliptin phosphate 100 mg 100 mg PO DAILY 09/21/22 12/18/22 tablet (Januvia) levetiracetam 500 mg tablet 500 mg PO BID 10/15/22 12/18/22 Saccharomyces boulardii 250 mg 250 mg PO BID 12/18/22 12/18/22 capsule bisacodyl 10 mg rectal suppository 10 mg RECTAL DAILY PRN Constipation 12/18/22 12/18/22 glucagon 1 mg solution for 1 mg subcut Q1H PRN Hypoglycemia 12/18/22 12/18/22 injection (GlucaGen HypoKit) insulin glargine 100 unit/mL (3 10 unit subcut QPM 12/18/22 12/18/22 mL) subcutaneous pen (Lantus Solostar U-100 Insulin) magnesium citrate (Citroma oral 300 ml PO DAILY PRN Constipation 12/18/22 12/18/22 solution) magnesium hydroxide 400 mg/5 mL 30 ml PO HS PRN Constipation 12/18/22 12/18/22 oral suspension (Milk of Magnesia) polyethylene glycol 3350 17 gram 17 g PO DAILY PRN Constipation 12/18/22 12/18/22 oral powder packet tramadol 50 mg tablet 50 mg PO Q6H PRN Pain (Scale Score 12/18/22 12/18/22 4-6) <Jayne Hinkle PA-C - Last Filed: 12/18/22 02:22> Allergies/adverse reactions: Allergies Allergy/AdvReac Type Severity Reaction Status Date / Time lidocaine Allergy Intermediate HIVES Verified 10/15/22 18:06 nitroglycerin Allergy Intermediate HIVES Verified 10/15/22 18:06 aspirin Allergy Mild Hives Verified 10/15/22 18:06 citalopram Allergy Mild Rash Verified 10/15/22 18:06 escitalopram Allergy Mild Hives Verified 10/15/22 18:06 ibuprofen Allergy Mild Hives Verified 10/15/22 18:06 Penicillins Allergy Mild HIVES PER Verified 10/15/22 18:06 UNCODED ALLERGIES 08/27/12 procaine Allergy Mild Hives Verified 10/15/22 18:06 propoxyphene Allergy Mild Hives Verified 10/15/22 18:06 doxycycline Allergy Unknown Hives Verified 10/15/22 18:06 meloxicam Allergy Unknown HIVES Verified 10/15/22 18:06 Sulfa (Sulfonamide Allergy Unknown HIVES PER Verified 10/15/22 18:06
[2022-12-17 18:16] LABS: Alveolar/Arterial O2 Gradient 3.1 mmHg; Fractional Inspired Oxygen 21 %; HCO3 ABG 28.7 mEq/l (22.0-26.0); Oxygen Content ABG 12.4 %vol (16.0-22.0); Oxygen Saturation ABG 94.6 % (95.0-100.0); Oxyhemoglobin 92.8 % THb (90.0-100.0); PCO2 ABG 56.2 mmHg (35.0-45.0); PO2 ABG 79.3 mmHg (80.0-100.0); PO2 FiO2 Ratio Arterial Blood 3.78 %; Total Hemoglobin 9.4 g/dL (12.0-18.0); pH ABG 7.326 (7.350-7.450)
[2022-12-17 18:19] LABS: Device ROOM AIR; Modified Allen's Test Pass; Site Drawn LEFT RADIAL
[2022-12-17 18:35] LABS: Glucose Point of Care 125 mg/dl (65-105)
[2022-12-17 18:35] LABS: Glucose Point of Care 137 mg/dl (65-105)
[2022-12-17 18:41] LABS: Basophils Percent Auto 0.3 % (0.2-1.2); Eosinophils Absolute Auto 0.2 K/mm3 (0-0.3); Eosinophils Percent Auto 2.5 % (0-4.4); Hematocrit 27.3 % (37.0-47.0); Hemoglobin 8.2 g/dL (12.0-15.0); Immature Granulocyte Absolute 0.02 K/mm3 (0.00-0.031); Immature Granulocyte Percent A 0.3 % (0-0.5); Lymphocytes Absolute Auto 0.89 K/mm3 (0.9-3.2); Lymphocytes Percent Auto 11.3 % (18.3-44.2); Mean Corpuscular Hemoglobin 28.4 pg (26-34); Mean Corpuscular Volume 94.5 fl (80-100); Mean Platelet Volume 9.4 fl (7.4-10.4); Monocytes Absolute Auto 0.5 K/mm3 (0.1-0.6); Monocytes Percent Auto 6.8 % (2.6-8.5); Neutrophils Absolute Auto 6.2 K/mm3 (1.3-6.7); Neutrophils Percent Auto 78.8 % (45.5-73.1); Platelet Count Result 197 k/mm3 (150-375); Red Blood Count 2.89 M/mm3 (4.2-5.4); Red Cell Distribution Width 17.6 % (11.5-14.5); White Blood Count 7.9 K/mm3 (4.5-10.0)
[2022-12-17 18:52] LABS: Alanine Aminotransferase 22 U/L (6-35); Albumin Level 3.6 g/dL (3.5-5.1); Alkaline Phosphatase 76 U/L (38-126); Anion Gap 7 mmol/L (8-16); Aspartate Amino Transferase 31 U/L (14-36); Bilirubin,Total 0.4 mg/dL (0.2-1.3); Blood Urea Nitrogen 78 mg/dL (7-17); Calcium 8.8 mg/dL (8.4-10.2); Carbon Dioxide 30 mmol/L (22-30); Chloride 106 mmol/L (98-107); Estimated Glomerular Filt Rate 32; Glucose 126 mg/dL (65-110); Lactic Acid Reflex 1.1 mmol/L (0.7-2.0); Magnesium 2.7 mg/dL (1.6-2.3); Potassium 5.6 mmol/L (3.4-5.0); Sodium 143 mmol/L (137-145)
[2022-12-17 19:01] LABS: Appearance Urine Clear (Clear); Bacteria Urine None Seen /hpf; Bilirubin Urine Negative (Negative); Blood Urine Trace (Negative); Color Urine Yellow (Yellow); Glucose Urine UA Negative (Negative); Hyaline Casts Urine Present /lpf; Ketones Urine Negative (Negative); Leukocyte Esterase Ur 1+ LEU/UL (Negative); Nitrate Urine Negative (Negative); Protein Urine 1+ mg/dL (Negative); Specific Grav Ur 1.013 (1.001-1.035); Squamous Epithelial Cell Urine None seen /hpf (Few); Urobilinogen Urine 0.2 mg/dL (<2.0)
[2022-12-17 19:02] LABS: Add Urine Microscopic? YES
[2022-12-17 19:04] LABS: Troponin I < 0.012 ng/mL (0.000-0.034)
[2022-12-17] MEDS: SODIUM CHLORIDE 0.9% IV 1,000 ML 999 ML IV CONT (19:21)
[2022-12-17] MEDS: CALCIUM GLUCONATE 1,000 MG/10 ML VIAL 1000 MG IV PUSH (19:32)
[2022-12-17] MEDS: DEXTROSE 50% 25 GM/50 ML SYRINGE IV PUSH ×3 (19:33→22:53)
[2022-12-17] MEDS: INSULIN HUMAN REGULAR (*BKC) 100 UNITS/ML 10 UNITS IV PUSH (19:36)
[2022-12-17 19:38] LABS: Glucose Point of Care 90 mg/dl (65-105)
[2022-12-17 21:07] LABS: Glucose Point of Care 73 mg/dl (65-105)
--- NOTE | 2022-12-17 21:26 | PC.NURSE ---
updated provider regarding patients bs, 73
[2022-12-17 21:30] LABS: Anion Gap 6 mmol/L (8-16); Blood Urea Nitrogen 73 mg/dL (7-17); Calcium 8.9 mg/dL (8.4-10.2); Carbon Dioxide 30 mmol/L (22-30); Chloride 108 mmol/L (98-107); Estimated Glomerular Filt Rate 35; Glucose 46 mg/dL (65-110); Potassium 5.3 mmol/L (3.4-5.0); Sodium 144 mmol/L (137-145)
[2022-12-17] MEDS: DEXTROSE 5% 1,000 ML 1,000 ML 100 ML IVPB (21:56)
[2022-12-17 22:17] LABS: Glucose Point of Care 88 mg/dl (65-105)
[2022-12-17 22:50] LABS: Glucose Point of Care 64 mg/dl (65-105)
--- NOTE | 2022-12-17 22:58 | PM.IMHP ---
H&P: HPI History of Present Illness Date/Time: 12/17/22 22:58 Chief Complaint: 47 years old female with multiple medical condition multiple admissions recent admission follow altered mental status and hypoglycemia history of seizure sleep apnea on CPAP CHF diabetes mellitus on insulin pulmonary embolism on Eliquis presented to the hospital with episode of altered mental status patient was found to have hypoglycemia blood sugar was in 40s patient was given D5 with improvement of blood sugar but 1 patient arrived to the ER has recurrence of hypoglycemia started on IV dextrose patient has episodes of confusion and lethargy ABG showed mild hyper apnea mild respiratory acidosis CT scan of the head pending repeat ABG pending restarted Keppra IV patient is not taken oral due to altered mental status Review of Systems Review of Systems: unable to obtain due to altered mental status [facility] Past Medical History Medical History Anemia Anxiety Arthritis Asthma Bipolar disorder Chronic anticoagulation For history of DVT and PE. Chronic kidney disease Chronic obstructive pulmonary disease Chronic pain syndrome Deep venous thrombosis Depression Diastolic dysfunction Eczema Epilepsy Gastroesophageal reflux disease Herniated disc History of MRSA infection Hyperlipidemia Hypertension Insulin dependent diabetes mellitus Historically poorly controlled. Obesity Obstructive sleep apnea Non compliant with treatment. Peripheral neuropathy Pulmonary embolism Seizures Suicide attempt T11 vertebral fracture Nondisplaced fracture of the right T11 inferior articulating facet. No surgical intervention required. Surgical History Surgical History History of bilateral knee replacement History of cardiac catheterization History of cardiac pacemaker For paroxysmal ventricular arrhythmia/tachycardia. History of cholecystectomy Family History Family History Mother Heart disease Acute myocardial infarction Uterine cancer COVID-19 Diabetes mellitus Hypertension Kidney disease Father Heart disease Social History Social History (Updated 11/20/22 @ 21:15 by Suzy Melgar PA-C) Social History: Surrogate medical decision maker: Meño Marquez significant other. Code status: Full code. Smoking packs per day: 1.5 Smoking cigarettes per day: 30.0 Years smoked: 9 Smoking pack-years: 13.50 Smoking status: Former smoker Tobacco type: cigarettes Second hand tobacco smoke exposure: Yes Smoking end date: 01/07/01 Alcohol intake: never Substance use: never Substance use type: does not use Lack of Transportation: YES Lack of Food: Never True Current Housing: I Have Housing Concerned About Future Housing: No Difficulty Paying Gas/Electric Bills: No Difficulty Paying for Meds: No Currently Unemployed: No Education: High School Diploma/GED Difficulty w/ Childcare or Family Care: No Living arrangements: with family Additional living arrangements comments: . Four children being raised by her sister. Additional occupation/education comments: Disabled. Spiritual care concerns: No Meds Home Medications and Allergies Home Medications Medication Instructions Recorded Confirmed Type atorvastatin 20 mg tablet 20 mg PO HS 08/21/19 11/21/22 History furosemide 20 mg tablet 40 mg PO BID 01/18/22 11/21/22 History albuterol sulfate 90 mcg/actuation 2 puff inhalation Q4H PRN 04/22/22 11/21/22 History aerosol inhaler Shortness Of Breath docusate sodium 100 mg capsule 100 mg PO DAILY PRN Constipation 04/22/22 11/21/22 History famotidine 20 mg tablet (Pepcid) 20 mg PO DAILY 04/22/22 11/21/22 History lisinopril 20 mg tablet 20 mg PO DAILY 04/22/22 11/21/22 History loratadine 10 mg tablet 10 mg PO DAILY
[2022-12-17 23:16] LABS: Alveolar/Arterial O2 Gradient < 0.0 mmHg; Base Excess ABG -0.7 mEq/l (+/-2.0); Device ROOM AIR; Fractional Inspired Oxygen 21 %; HCO3 ABG 24.8 mEq/l (22.0-26.0); Modified Allen's Test Pass; Oxygen Content ABG 11.3 %vol (16.0-22.0); Oxygen Saturation ABG 97.3 % (95.0-100.0); Oxyhemoglobin 95.2 % THb (90.0-100.0); PCO2 ABG 45.1 mmHg (35.0-45.0); PO2 ABG 100.1 mmHg (80.0-100.0); PO2 FiO2 Ratio Arterial Blood 4.77 %; Site Drawn LEFT RADIAL; Total Hemoglobin 8.3 g/dL (12.0-18.0); pH ABG 7.358 (7.350-7.450)
[2022-12-17 23:47] LABS: Glucose Point of Care 126 mg/dl (65-105)
[2022-12-18] VITALS (15 sets, daily range): BP systolic 102–148; BP diastolic 46–99; PULSE 68–84; RESP 12–22; TEMP 36–36.7; O2SAT 96–100; BMI 44.6
[2022-12-18 00:17] LABS: Ammonia 16 umol/L (9-30)
--- NOTE | 2022-12-18 00:26 | ADMGEN ---
This patient, Valerie Nguyen, was admitted to IMU Room 214-01. Patient/family oriented to hospital policies and general routines including ID bracelet, bed and alarms, visiting hours, pain management, procedures, bathroom and other care routines, personal items, smoking policy, room service/diet, and visiting hours. Information on how to activate the Rapid Response Team has been discussed. Patient/Family are encouraged to report perceived risks to care and to ask questions if they do not understand what they are told or what they should do.
[2022-12-18 00:30] LABS: Glucose Point of Care 64 mg/dl (65-105)
[2022-12-18 01:01] LABS: Glucose Point of Care 57 mg/dl (65-105)
[2022-12-18] MEDS: DEXTROSE 10% 1,000 ML 75 ML IV CONT ×2 (01:14→14:35)
[2022-12-18] MEDS: DEXTROSE 50% 25 GM/50 ML SYRINGE IV PUSH (01:14)
[2022-12-18 01:37] LABS: Glucose Point of Care 125 mg/dl (65-105)
[2022-12-18 01:55] LABS: Procalcitonin 0.4 ng/mL
[2022-12-18] MEDS: levETIRAcetam 500MG/NACL 100ML 500 MG/100 ML BAG 400 MG IVPB ×2 (02:22→10:12)
[2022-12-18 02:53] LABS: Glucose Point of Care 126 mg/dl (65-105)
[2022-12-18 03:50] LABS: Glucose Point of Care 111 mg/dl (65-105)
[2022-12-18 04:34] LABS: Glucose Point of Care 125 mg/dl (65-105)
[2022-12-18 05:20] LABS: Basophils Percent Auto 0.6 % (0.2-1.2); Eosinophils Absolute Auto 0.1 K/mm3 (0-0.3); Eosinophils Percent Auto 3.7 % (0-4.4); Hematocrit 26.6 % (37.0-47.0); Hemoglobin 7.7 g/dL (12.0-15.0); Immature Granulocyte Absolute 0.01 K/mm3 (0.00-0.031); Immature Granulocyte Percent A 0.3 % (0-0.5); Lymphocytes Absolute Auto 0.76 K/mm3 (0.9-3.2); Lymphocytes Percent Auto 21.4 % (18.3-44.2); Mean Corpuscular HGB Conc 28.9 g/dl (32-36); Mean Corpuscular Hemoglobin 27.2 pg (26-34); Mean Platelet Volume 9.6 fl (7.4-10.4); Monocytes Absolute Auto 0.2 K/mm3 (0.1-0.6); Monocytes Percent Auto 6.2 % (2.6-8.5); Neutrophils Absolute Auto 2.4 K/mm3 (1.3-6.7); Neutrophils Percent Auto 67.8 % (45.5-73.1); Platelet Count Result 194 k/mm3 (150-375); Red Blood Count 2.83 M/mm3 (4.2-5.4); Red Cell Distribution Width 17.3 % (11.5-14.5); White Blood Count 3.6 K/mm3 (4.5-10.0)
[2022-12-18 05:30] LABS: Alanine Aminotransferase 23 U/L (6-35); Albumin Level 3.3 g/dL (3.5-5.1); Alkaline Phosphatase 78 U/L (38-126); Anion Gap 3 mmol/L (8-16); Aspartate Amino Transferase 29 U/L (14-36); Bilirubin,Total 0.5 mg/dL (0.2-1.3); Blood Urea Nitrogen 70 mg/dL (7-17); Carbon Dioxide 31 mmol/L (22-30); Chloride 108 mmol/L (98-107); Estimated Glomerular Filt Rate 37; Glucose 128 mg/dL (65-110); Potassium 5.5 mmol/L (3.4-5.0); Sodium 142 mmol/L (137-145)
[2022-12-18 05:43] LABS: Glucose Point of Care 132 mg/dl (65-105)
[2022-12-18 06:11] LABS: Anisocytosis 1+ (NORMAL); Hypochromasia 1+ (NORMAL); Platelet Estimate Adequate (Adequate); Schistocytes None Seen (NORMAL)
[2022-12-18 07:58] LABS: Glucose Point of Care 152 mg/dl (65-105)
[2022-12-18] MEDS: FUROSEMIDE INJ 40 MG/4 ML VIAL IV PUSH ×2 (10:17→17:47)
[2022-12-18] MEDS: APIXABAN 5 MG TABLET PO ×2 (10:18→17:47)
[2022-12-18] MEDS: lisinopriL 20 MG TABLET PO (10:18)
[2022-12-18] MEDS: GABAPENTIN 300 MG CAPSULE PO ×2 (10:18→17:48)
[2022-12-18] MEDS: FAMOTIDINE 20 MG TABLET PO (10:18)
[2022-12-18] MEDS: METOPROLOL TARTRATE 12.5 MG TABLET PO ×2 (10:19→21:32)
[2022-12-18] MEDS: LORATADINE 10 MG TABLET PO (10:19)
[2022-12-18] MEDS: TOLNAFTATE 1% POWDER 45 GM BTL 1 APPLIC TOPICAL ×2 (10:20→22:11)
[2022-12-18] MEDS: FERROUS SULFATE 324 MG TABLET PO ×2 (10:20→17:47)
[2022-12-18] MEDS: SACCHAROMYCES BOULARDII 250 MG CAPSULE PO ×2 (10:20→17:48)
[2022-12-18] MEDS: SODIUM ZIRCONIUM CYCLOSILICATE 10 GM POWD.PACK PO ×2 (12:00→18:01)
--- NOTE | 2022-12-18 12:22 | PM.CNPUL ---
Assessment and Plan Assessment and plan (1) Daytime hypersomnia: Code(s): G47.10 - Hypersomnia, unspecified Status: Acute Assessment and Plan: Patient with morbid obesity with a BMI of 44.7, snoring, she take some naps during the day and has daytime hypersomnia. Patient may have sleep apnea and will require an outpatient split night polysomnogram. Patient had a blood gas of 7.33/56/79 when she came in with hypoglycemia and altered mental status. Repeat blood gas on room air 5 hours later was 7.36/45/100. Prior blood gases on 11/20/2022 on 3 L of 7.32/43/118 and on 10/21/2022 of 7.49/46/65 on room air to not demonstrate chronic hypercarbic respiratory failure. Patient is currently living at [facility] and she should have oxygen at rest, with ambulation and at night per their protocol with a goal saturation greater than 90%. Will check a TSH and free T4 on 12/19/2022. Patient should follow up in the Pulmonary Clinic for an outpatient split night sleep study. I have given her business card and informed our snow technician. Will sign off, call with questions. History of Present Illness History of Present Illness Consult date: 12/18/22 Chief complaint: Hypoglycemia and AMS Narrative: 12/18/2022: This is a new pulmonary consultation for hypercapnic respiratory failure requiring BiPAP. 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 On 12/17/2022 the patient presented from [facility] with altered mental status and possible syncope. EMS found her with a fingerstick in the 30s and they gave her D10 and she was more alert although complaining she was tired. In the emergency room the patient had a white blood cell count of 7.9, creatinine of 1.60 and a room air blood gas of 7.33/56/79. Repeat blood gas 5 hours later on room air was 7.36/45/100. Chest x-ray showed no acute disease. room air saturations were 97-100 in the emergency department. Patient was found to be In fluid overload and given IV Lasix. BiPAP was ordered by the hospitalist team but the patient denies wearing BiPAP room air no notes by the respiratory therapist stating she was placed on BiPAP. 12/18/22 Currently the patient tells me she may have obstructive sleep apnea. She tells me she has never had a polysomnogram. She does not wear oxygen or CPAP machine at home. The patient does take some naps during the day but states that she wakes up refreshed. 11/20/2022 ABG on 3 L nasal cannula when she presented for hypo could fully Elizabeth was 7.32/43/118. ABG on 10/21/2022 was 7.49/46/65 on room air. Review of Systems Review of Systems: Patient is sleepy but does awaken answers questions and that she feels fine ROS unobtainable: Yes unobtainable due to medical condition PMFSH Past Medical History Medical History Anemia Anxiety Arthritis Asthma Bipolar disorder Chronic anticoagulation For history of DVT and PE. Chronic kidney disease Chronic obstructive pulmonary disease Chronic pain syndrome Deep venous thrombosis Depression Diastolic dysfunction Eczema Epilepsy Gastroesophageal reflux disease Herniated disc History of MRSA infection Hyperlipidemia Hypertension Insulin dependent diabetes mellitus Historically poorly controlled. Obesity Obstructive sleep apnea Non compliant with treatment. Peripheral neuropathy Pulmonary embolism Seizures Suicide attempt T11 vertebral fracture Nondisplaced fracture of the right T11 inferior articulating facet. No surgical intervention required. Surgical History Surgical History History of bilateral knee replacement History of cardiac catheterization History of cardiac pacemaker For paroxysmal ventricular arrhythmia/tachycardia.
[2022-12-18 12:28] LABS: Glucose Point of Care 157 mg/dl (65-105)
--- NOTE | 2022-12-18 15:09 | PM.IMPN ---
Progress Note: A&P Assessment and Plan (1) Unresponsive episode: Code(s): R41.89 - Other symptoms and signs involving cognitive functions and awareness Status: Acute Assessment and Plan: Patient is brought from the group home to the ED for altered mental status and syncope. EMS was called and she was noted to have a blood sugar of 30s. This was treated in the field. CT brain showing no acute findings. CXR clear. Ammonia level negative. ABG 7.33/56/79 on RA consistent with mild respiratory failure. AMS related to resp failure and acute hypoglycemia. Consider seizure but seems less likely. Mental status better overall. Cut alprazolam dose in half. Check B12, TSH. Follow. (2) Hypoglycemia: Code(s): E16.2 - Hypoglycemia, unspecified Status: Acute Assessment and Plan: Etiology of the hypoglycemic episode unclear. Could be too tight of control. Consider related to infection. CXR clear but UA concerning for UTI. Anti-hyperglycemic meds on hold. On D10 currently. Glucose improving so will back off on the volume of the D10 Follow up on Cx. Start abx. (3) Epilepsy: Code(s): G40.909 - Epilepsy, unspecified, not intractable, without status epilepticus Status: Acute Assessment and Plan: Patient with hx of seizures. Continue Keppra. EEG completed. (4) Diastolic dysfunction: Code(s): I51.89 - Other ill-defined heart diseases Status: Acute Assessment and Plan: On admission, it was felt the patient had acute on chronic diastolic CHF exacerbation and was started on IV diuresis. CXR clear and patient remains on room air but she is fluid overloaded clinically. Contineu IV Lasix for today. Monitor renal function, UOP and electrolytes. (5) Hyperkalemia: Code(s): E87.5 - Hyperkalemia Status: Acute Assessment and Plan: status post Kayexalate. Potassium still elevated so Kimmiekalma added. (6) Diabetes mellitus: Qualifiers: Diabetes mellitus complication status: without complication Diabetes mellitus tank terminal gauger insulin use: with usp use Diabetes mellitus type: type 2 Qualified Code(s): E11.9 - Type 2 diabetes mellitus without complications; Z79.4 - terminal operations supervisor (current) use of insulin Code(s): E11.9 - Type 2 diabetes mellitus without complications Status: Chronic Assessment and Plan: The patient's blood glucose was reviewed on 12/18 Continue AccuCheks covering with sliding scale. Hypoglycemia protocol available as needed. As above (7) Sleep apnea: Code(s): G47.30 - Sleep apnea, unspecified Status: Acute Assessment and Plan: Continue CPAP (8) History of pulmonary embolism: Code(s): Z86.711 - Personal history of pulmonary embolism Status: Acute Assessment and Plan: Continue home Eliquis Plan leukopenia - not seen before. She does have a positive HALIE. Consider autoimmune process but WBC normal yesterday. Will follow. Overwhelming sepsis seems less likely. Anemia- HH noted. Chronically low but lower today due to IV fluids. Anemia w/u in the past noted. Follow for now. Subjective Date/time seen: 12/18/22 15:09 Interval history: 47yo female HTN, DM, COPD, EAMON and seizure here for altered mental status. No CP but having abd pain. No n/v. No SOB. ne headache. No cough. Exam Narrative: AF 96.8 118/46 70 16 100% ra Gen - NARD just finishing her EEG Chest - distant, clear BS anteriorly, nml RR CV - RRR S1/S2. Tele showing paced rhythm. Abd - Soft, obese, NT. abd wall edema. - urine clear Ext - bilateral LE pitting pedal edema Neuro - Alert, confused. Oriented to zacarias name only. Psych - Nml mood but odd affect Skin - Warm and dry Objective Data Vital Signs Vital Signs: Vital Signs - 24 hr 12/17/22 17:37 12/17/22 17:45 12/17/22 18:55 Temperature 97.5 F L Pulse Rate 70 70 Respiratory Rate 14 1
[2022-12-18 16:41] LABS: Glucose Point of Care 204 mg/dl (65-105)
[2022-12-18 20:56] LABS: Glucose Point of Care 327 mg/dl (65-105)
[2022-12-18] MEDS: levETIRAcetam 500 MG TABLET PO (21:31)
[2022-12-18] MEDS: MELATONIN 5 MG TABLET 10 MG PO (21:31)
[2022-12-18] MEDS: ATORVASTATIN 20 MG TABLET PO (21:31)
[2022-12-18] MEDS: levoFLOXacin 500 MG/D5W 100 ML 500 MG/100 ML BAG 100 MG IVPB (21:32)
[2022-12-18 22:12] LABS: Potassium 5.9 mmol/L (3.4-5.0)
[2022-12-19] VITALS (11 sets, daily range): BP systolic 98–132; BP diastolic 35–66; PULSE 56–81; RESP 16–18; TEMP 36.2–37.4; O2SAT 94–100
[2022-12-19 06:13] LABS: Basophils Percent Auto 0.5 % (0.2-1.2); Eosinophils Absolute Auto 0.2 K/mm3 (0-0.3); Eosinophils Percent Auto 5.4 % (0-4.4); Hematocrit 25.8 % (37.0-47.0); Hemoglobin 7.6 g/dL (12.0-15.0); Immature Granulocyte Absolute 0.01 K/mm3 (0.00-0.031); Immature Granulocyte Percent A 0.2 % (0-0.5); Lymphocytes Absolute Auto 1.15 K/mm3 (0.9-3.2); Lymphocytes Percent Auto 28.1 % (18.3-44.2); Mean Corpuscular HGB Conc 29.5 g/dl (32-36); Mean Corpuscular Hemoglobin 27.5 pg (26-34); Mean Corpuscular Volume 93.5 fl (80-100); Mean Platelet Volume 10.1 fl (7.4-10.4); Monocytes Absolute Auto 0.3 K/mm3 (0.1-0.6); Monocytes Percent Auto 8.1 % (2.6-8.5); Neutrophils Absolute Auto 2.4 K/mm3 (1.3-6.7); Neutrophils Percent Auto 57.7 % (45.5-73.1); Platelet Count Result 192 k/mm3 (150-375); Red Blood Count 2.76 M/mm3 (4.2-5.4); Red Cell Distribution Width 17.6 % (11.5-14.5); White Blood Count 4.1 K/mm3 (4.5-10.0)
[2022-12-19 06:27] LABS: Alanine Aminotransferase 20 U/L (6-35); Albumin Level 3.3 g/dL (3.5-5.1); Alkaline Phosphatase 62 U/L (38-126); Anion Gap 7 mmol/L (8-16); Aspartate Amino Transferase 24 U/L (14-36); Bilirubin,Total 0.4 mg/dL (0.2-1.3); Blood Urea Nitrogen 61 mg/dL (7-17); Calcium 8.5 mg/dL (8.4-10.2); Carbon Dioxide 27 mmol/L (22-30); Chloride 105 mmol/L (98-107); Estimated Glomerular Filt Rate 44; Glucose 255 mg/dL (65-110); Potassium 5.9 mmol/L (3.4-5.0); Sodium 139 mmol/L (137-145)
[2022-12-19 06:45] LABS: Free T4 Free Thyroxine 1.54 ng/mL (0.78-2.19)
[2022-12-19 07:33] LABS: Folic Acid 3.2 ng/mL (2.76->20)
[2022-12-19 07:58] LABS: Glucose Point of Care 225 mg/dl (65-105)
[2022-12-19] MEDS: FERROUS SULFATE 324 MG TABLET PO ×2 (08:27→17:43)
[2022-12-19] MEDS: levETIRAcetam 500 MG TABLET PO ×2 (08:28→20:48)
[2022-12-19] MEDS: LORATADINE 10 MG TABLET PO (08:28)
[2022-12-19] MEDS: ALPRAZolam (*CRX) 0.5 MG TABLET 1 MG PO ×2 (08:28→17:41)
[2022-12-19] MEDS: APIXABAN 5 MG TABLET PO ×2 (08:28→17:43)
[2022-12-19] MEDS: lisinopriL 20 MG TABLET PO (08:28)
[2022-12-19] MEDS: SACCHAROMYCES BOULARDII 250 MG CAPSULE PO ×2 (08:28→17:42)
[2022-12-19] MEDS: GABAPENTIN 300 MG CAPSULE PO ×2 (08:28→17:42)
[2022-12-19] MEDS: METOPROLOL TARTRATE 12.5 MG TABLET PO ×2 (08:29→20:49)
[2022-12-19] MEDS: FAMOTIDINE 20 MG TABLET PO (08:29)
[2022-12-19] MEDS: FUROSEMIDE INJ 40 MG/4 ML VIAL IV PUSH ×2 (08:29→17:43)
[2022-12-19] MEDS: TOLNAFTATE 1% POWDER 45 GM BTL 1 APPLIC TOPICAL ×2 (08:34→20:48)
--- NOTE | 2022-12-19 09:42 | P.NEURO_ITS ---
Neurology EEG Report General Information Date of Study: 12/18/22 TEST Routine EEG DIAGNOSIS Unresponsive episode CONDITION OF RECORDING Drowsy EEG NUMBER [id number] CLINICAL HISTORY Patient has a history of epilepsy. She was brought in from long term due to an episode of loss of consciousness. Her blood sugar at the time was in the 30s. EEG DESCRIPTION The recording is continuous. The background consists of mostly theta range rhythm. No obvious posterior dominant rhythm is noted, nor is there a well- formed anterior posterior gradient. Patient did not enter stage II sleep during the recording. There are no electrographic seizures or epileptiform discharges noted. Activation procedures were not performed. IMPRESSION This is an abnormal routine EEG due to generalized slowing. This finding can be seen in the setting of encephalopathy due to unspecified etiology. No epileptiform features were noted. Clinical correlation recommended.
--- NOTE | 2022-12-19 09:57 | WPDNEUROLOGY ---
Neurology EEG Report General Information Date of Study: 12/19/22 TEST Routine EEG DIAGNOSIS Possible seizure CONDITION OF RECORDING Drowsy and asleep EEG NUMBER [id number] CLINICAL HISTORY Patient reports she stopped taking her medication last week and had a seizure earlier this wee, and has lost consciousness several times since then.
[2022-12-19] MEDS: SODIUM ZIRCONIUM CYCLOSILICATE 10 GM POWD.PACK PO ×2 (11:29→18:56)
[2022-12-19 11:43] LABS: Glucose Point of Care 187 mg/dl (65-105)
--- NOTE | 2022-12-19 12:23 | PC.NURSE ---
This patient, Valerie Nguyen, was transferred to [facility] on 12/19/22 at 1215. Personal belongings sent with patient. Report given to Shelley. Appropriate documentation sent with patient.
--- NOTE | 2022-12-19 12:24 | PM.IMPN ---
Progress Note: A&P Assessment and Plan (1) Daytime hypersomnia: Code(s): G47.10 - Hypersomnia, unspecified Status: Acute (2) Hypoglycemia: Code(s): E16.2 - Hypoglycemia, unspecified Status: Acute (3) Epilepsy: Code(s): G40.909 - Epilepsy, unspecified, not intractable, without status epilepticus Status: Acute (4) Acute on chronic kidney failure: Code(s): N17.9 - Acute kidney failure, unspecified; N18.9 - Chronic kidney disease, unspecified Status: Acute (5) Confusion: Code(s): R41.0 - Disorientation, unspecified Status: Acute Plan # altered mental status -may be secondary hypoglycemic episode, continue to monitor. Blood sugars are stable -EEG done showing some generalized slowing with no epileptic features -unclear how far from baseline mentation we are, will follow-up for another day or 2 -antibiotics: Levaquin # fluid overload -peripheral edema lower extremities 1 to 2+ pitting edema -diuresis: IV Lasix 40 mg IV b.i.d. # hyperkalemia -potassium 5.9, continue Lokelma # chronic conditions -daytime hypersomnolence: Dr. Mccracken pulmonology recommending outpatient sleep study -hyperlipidemia: On Lipitor -bipolar disorder: P.r.n. Xanax -GERD: Pepcid -iron deficiency: Ferrous sulfate supplement -peripheral neuropathy: Gabapentin -seizure disorder: Continue Keppra, EEG done -essential hypertension: Lisinopril, metoprolol -allergies: Loratadine -insomnia: Melatonin Diet: Diabetic diet DVT prophylaxis: Eliquis Code status: Full code Disposition: Observation, home in 1-2 days Subjective Date/time seen: 12/19/22 12:24 Interval history: Patient seen examined. She is doing no new complaints. Blood sugar stable at 225. Creatinine at 1.3. Labs and vitals are stable, will downgrade to medical unit. She still not back to baseline mentation, she was oriented to place and person only. Of note patient will need an outpatient sleep study. Patient EEG which showed abnormal routine EEG with generalized slowing, no epileptiform features. She denies fever, chills, melena diarrhea Review of Systems Review of Systems: 10 point ROS complete, negative other than what is specified in HPI. Exam Narrative: - GENERAL: Pleasant obese, confused - EYES: EOMI. Anicteric. - HENT: Moist mucous membranes. For some dry lesions on her skin around her ears - LUNGS: Clear to auscultation bilaterally, no wheezing, rhonchi, or rales. - CARDIOVASCULAR: Regular rate and rhythm. No murmur. - ABDOMEN: Soft, non-tender and non-distended. No palpable masses. - EXTREMITIES: 1+ edema removed. Peripheral pulses 2+. Non-tender. - NEUROLOGIC: No focal neurological deficits. CN II-XII grossly intact. - PSYCHIATRIC: Awake, Alert and oriented to self and place. Flat affect, withdrawn mood - LYMPH: No cervical lymphadenopathy. Objective Data Vital Signs Vital Signs: Vital Signs - 24 hr 12/18/22 16:00 12/18/22 16:00 12/18/22 14:00 Temperature 36.7 C Pulse Rate 69 72 Respiratory Rate 16 Blood Pressure 148/99 H Pulse Oximetry 98 Oxygen Delivery Room Air 12/18/22 16:00 12/18/22 18:00 12/18/22 21:32 Temperature Pulse Rate 70 76 84 Respiratory Rate Blood Pressure Pulse Oximetry Oxygen Delivery 12/18/22 20:00 12/18/22 20:00 12/18/22 20:00 Temperature 36.4 C L Pulse Rate 76 79 79 Respiratory Rate 16 16 Blood Pressure 110/55 L Pulse Oximetry 100 100 Oxygen Delivery Room Air 12/18/22 22:00 12/19/22 00:00 12/19/22 00:00 Temperature Pulse Rate 82 76 76 Respiratory Rate 16 Blood Pressure Pulse Oximetry 100 Oxygen Delivery Room Air 12/19/22 01:32 12/19/22 00:00 12/19/22 04:00 Temperature 36.3 C L 36.2 C L Pulse Rate 78 81 72 Respiratory Rate 16 16 Blood Pressure 100/35 L 98/49 L Pulse Oximetry 100 100 Oxygen Delivery 12/19/22 04:00 12/19/22 04:00 12/19/22 06:00 Temperature
--- NOTE | 2022-12-19 12:32 | PC.NURSE ---
pt transferred in to room 251 via bed, oriented to new room and environment, reviewed plan of care
[2022-12-19 17:08] LABS: Glucose Point of Care 151 mg/dl (65-105)
[2022-12-19] MEDS: levoFLOXacin 500 MG/D5W 100 ML 500 MG/100 ML BAG 100 MG IVPB (18:56)
[2022-12-19] MEDS: MELATONIN 5 MG TABLET 10 MG PO (20:49)
[2022-12-19] MEDS: ATORVASTATIN 20 MG TABLET PO (20:49)
[2022-12-19 21:11] LABS: Glucose Point of Care 205 mg/dl (65-105)
[2022-12-20 07:24] LABS: Basophils Percent Auto 0.3 % (0.2-1.2); Eosinophils Absolute Auto 0.2 K/mm3 (0-0.3); Eosinophils Percent Auto 4.8 % (0-4.4); Hematocrit 26.9 % (37.0-47.0); Hemoglobin 7.8 g/dL (12.0-15.0); Immature Granulocyte Absolute 0.01 K/mm3 (0.00-0.031); Immature Granulocyte Percent A 0.3 % (0-0.5); Immature Platelet Fraction Pct 5.2 % (0.9-11.2); Lymphocytes Absolute Auto 1.07 K/mm3 (0.9-3.2); Lymphocytes Percent Auto 30.3 % (18.3-44.2); Mean Corpuscular Hemoglobin 27.2 pg (26-34); Mean Corpuscular Volume 93.7 fl (80-100); Mean Platelet Volume 10.1 fl (7.4-10.4); Monocytes Absolute Auto 0.3 K/mm3 (0.1-0.6); Monocytes Percent Auto 8.5 % (2.6-8.5); Neutrophils Percent Auto 55.8 % (45.5-73.1); Platelet Count Result 116 k/mm3 (150-375); Red Blood Count 2.87 M/mm3 (4.2-5.4); Red Cell Distribution Width 17.6 % (11.5-14.5); White Blood Count 3.5 K/mm3 (4.5-10.0)
[2022-12-20 08:09] LABS: Hypochromasia 1+ (NORMAL); Platelet Clumps Present; Platelet Estimate Adequate (Adequate); Poikilocytosis 1+ (NORMAL); Schistocytes None Seen (NORMAL)
[2022-12-20 08:39] LABS: Glucose Point of Care 209 mg/dl (65-105)
[2022-12-20] MEDS: APIXABAN 5 MG TABLET PO ×2 (09:21→17:39)
[2022-12-20] MEDS: GABAPENTIN 300 MG CAPSULE PO ×3 (09:22→17:38)
[2022-12-20] MEDS: FERROUS SULFATE 324 MG TABLET PO ×2 (09:22→17:38)
[2022-12-20] MEDS: lisinopriL 20 MG TABLET PO (09:22)
[2022-12-20] MEDS: LORATADINE 10 MG TABLET PO (09:22)
[2022-12-20] MEDS: FUROSEMIDE INJ 40 MG/4 ML VIAL IV PUSH ×2 (09:24→17:39)
[2022-12-20] MEDS: levETIRAcetam 500 MG TABLET PO ×2 (09:24→20:19)
[2022-12-20] MEDS: SACCHAROMYCES BOULARDII 250 MG CAPSULE PO ×2 (09:24→17:38)
[2022-12-20] MEDS: FAMOTIDINE 20 MG TABLET PO (09:25)
[2022-12-20 09:26] VITALS: BP 135/58; PULSE 68; RESP 14; O2SAT 100
[2022-12-20 09:27] VITALS: PULSE 68
[2022-12-20] MEDS: TOLNAFTATE 1% POWDER 45 GM BTL 1 APPLIC TOPICAL ×2 (09:27→20:19)
[2022-12-20] MEDS: METOPROLOL TARTRATE 12.5 MG TABLET PO ×2 (09:27→20:19)
[2022-12-20] MEDS: ALPRAZolam (*CRX) 0.5 MG TABLET 1 MG PO ×3 (09:30→17:38)
[2022-12-20 10:44] LABS: Alanine Aminotransferase 19 U/L (6-35); Albumin Level 3.4 g/dL (3.5-5.1); Alkaline Phosphatase 61 U/L (38-126); Anion Gap 6 mmol/L (8-16); Aspartate Amino Transferase 18 U/L (14-36); Bilirubin,Total 0.3 mg/dL (0.2-1.3); Blood Urea Nitrogen 51 mg/dL (7-17); Calcium 8.6 mg/dL (8.4-10.2); Carbon Dioxide 29 mmol/L (22-30); Chloride 103 mmol/L (98-107); Estimated Glomerular Filt Rate 44; Glucose 254 mg/dL (65-110); Potassium 5.3 mmol/L (3.4-5.0); Sodium 138 mmol/L (137-145)
[2022-12-20] MEDS: SODIUM ZIRCONIUM CYCLOSILICATE 10 GM POWD.PACK PO (11:11)
[2022-12-20 11:49] LABS: Glucose Point of Care 239 mg/dl (65-105)
--- NOTE | 2022-12-20 13:05 | PM.IMPN ---
Progress Note: A&P Assessment and Plan (1) Daytime hypersomnia: Code(s): G47.10 - Hypersomnia, unspecified Status: Acute (2) Hypoglycemia: Code(s): E16.2 - Hypoglycemia, unspecified Status: Acute (3) Confusion: Code(s): R41.0 - Disorientation, unspecified Status: Acute Plan # acute metabolic encephalopathy - mentation is improving daily,may be metabolic.? Blood sugars are stable. blood sugars are starting to rise will resume home insulin -EEG done showing some generalized slowing with no epileptic features - mentation continues to improve daily, will likely go home in next day or 2 -antibiotics: Levaquin # fluid overload -peripheral edema lower extremities 1 to 2+ pitting edema -diuresis:? IV Lasix 40 mg IV b.i.d. # hyperkalemia - potassium improved from 5.9-5.3, continue lokelma # insulin-dependent type 2 diabetes - was hypoglycemic on presentation. blood sugars are now starting to rise 239 - resume home insulin glargine 10 units nightly, aspart 5 units t.i.d. a.c. # chronic conditions -daytime hypersomnolence:? Dr. Mccracken pulmonology recommending outpatient sleep study -hyperlipidemia: On Lipitor -bipolar disorder: P.r.n. Xanax -GERD:? Pepcid -iron deficiency:? Ferrous sulfate supplement -peripheral neuropathy:? Gabapentin -seizure disorder:? Continue Keppra, EEG done -essential hypertension:? Lisinopril, metoprolol -allergies:? Loratadine -insomnia: Melatonin Diet:? Diabetic diet DVT prophylaxis:? Eliquis Code status: Full code Disposition:? likely home next day or 2 Subjective Date/time seen: 12/20/22 13:05 Interval history: Patient seen examined. she states she still has malaise and not feeling normal. She is oriented to person place. Her blood sugars have starting to rise, will resume home insulin monitor blood sugars Glargine 10 units nightly, aspart 5 units t.i.d. a.c.. for the hyperkalemia potassium down to 5.3, continue Lokelma. She denies fever, chills, nausea, vomiting, diarrhea. Review of Systems Review of Systems: 10 point ROS complete, negative other than what is specified in HPI. Exam Narrative: - GENERAL:? Pleasant obese woman with disability - EYES: EOMI. Anicteric. - HENT: Moist mucous membranes.? For some dry lesions on her skin around her ears - LUNGS: Clear to auscultation bilaterally, no wheezing, rhonchi, or rales. - CARDIOVASCULAR: Regular rate and rhythm. No murmur. - ABDOMEN: Soft, non-tender and non-distended. No palpable masses. - EXTREMITIES: 1+ edema lower extremities. Peripheral pulses 2+. Non-tender. - NEUROLOGIC: No focal neurological deficits. CN II-XII grossly intact. - PSYCHIATRIC: Awake, Alert and oriented to self and place.? Flat affect, withdrawn mood, appears more awake and active than yesterday - LYMPH: No cervical lymphadenopathy.? Objective Data Vital Signs Vital Signs: Vital Signs - 24 hr 12/19/22 20:00 12/19/22 20:49 12/19/22 20:00 Temperature 37.4 C Pulse Rate 71 56 L Respiratory Rate 16 Blood Pressure 118/40 L Pulse Oximetry 100 Oxygen Delivery Room Air 12/20/22 09:26 12/20/22 09:27 12/20/22 09:20 Temperature Pulse Rate 68 68 Respiratory Rate 14 Blood Pressure 135/58 L Pulse Oximetry 100 Oxygen Delivery Room Air Intake/Output Intake/Output: Intake & Output 12/17/22 12/18/22 12/19/22 12/20/22 23:59 23:59 23:59 23:59 Intake Total 1000 1740 1030 490 Output Total 3400 2450 1400 Balance 4414 -7288 -8642 -343 Meds/Results Medications: Active Medications Generic Name Dose Route Start Last Admin Trade Name Freq PRN Reason Stop Dose Admin Albuterol 2.5 mg 12/17/22 22:54 Albuterol Sulfate Neb 2.5 Mg/3 Ml Inh INHALATION Q6HRT PRN Shortness Of Breath Albuterol 2 puff 12/18/22 02:39 Albuterol Sulfate (*Sp) Aerosol 1 Puff INHALATION Q4H PRN Shortness Of Breath Alprazolam 1 mg 12/18/22 18:58 12/20/22 12:57
[2022-12-20] MEDS: INSULIN ASPART (*BKC) 100 UNITS/ML SUB-Q ×2 (13:43→17:38)
[2022-12-20 16:53] LABS: Glucose Point of Care 170 mg/dl (65-105)
[2022-12-20] MEDS: levoFLOXacin 500 MG/D5W 100 ML 500 MG/100 ML BAG 100 MG IVPB (17:37)
[2022-12-20] MEDS: INSULIN GLARGINE (*BKC) 100 UNITS/ML 10 UNITS SUB-Q (17:39)
[2022-12-20 20:00] VITALS: BP 101/47; PULSE 94; RESP 18; TEMP 36.6; O2SAT 99
[2022-12-20 20:19] VITALS: PULSE 70
[2022-12-20] MEDS: MELATONIN 5 MG TABLET 10 MG PO (20:19)
[2022-12-20] MEDS: ATORVASTATIN 20 MG TABLET PO (20:19)
--- NOTE | 2022-12-20 20:27 | ECG_ITS ---
Measurements Intervals [employer] Rate: 70 P: 109 [place]: 175 QRS: 53 QRSD: 89 T: 29 QT: 392 QTc: 423 Interpretive Statements ELECTRONIC ATRIAL PACEMAKER LOW QRS VOLTAGE IN PRECORDIAL LEADS BORDERLINE ECG COMPARED TO ECG 12/17/2022 18:11:57 NO SIGNIFICANT CHANGES Electronically Signed On 12-20-2022 21:01:23 CDT by Kalin Castorena D.O.
[2022-12-20 20:42] LABS: Glucose Point of Care 154 mg/dl (65-105)
[2022-12-21 05:00] VITALS: BP 108/38; PULSE 70; RESP 20; TEMP 36.6; O2SAT 100
[2022-12-21 08:23] LABS: Glucose Point of Care 172 mg/dl (65-105)
[2022-12-21 08:46] VITALS: PULSE 70
[2022-12-21] MEDS: METOPROLOL TARTRATE 12.5 MG TABLET PO ×2 (08:46→19:58)
[2022-12-21] MEDS: levETIRAcetam 500 MG TABLET PO ×2 (08:47→19:57)
[2022-12-21] MEDS: FERROUS SULFATE 324 MG TABLET PO ×2 (08:48→18:10)
[2022-12-21] MEDS: APIXABAN 5 MG TABLET PO ×2 (08:48→18:10)
[2022-12-21] MEDS: GABAPENTIN 300 MG CAPSULE PO ×3 (08:48→18:10)
[2022-12-21] MEDS: TOLNAFTATE 1% POWDER 45 GM BTL 1 APPLIC TOPICAL ×2 (08:49→19:58)
[2022-12-21] MEDS: SACCHAROMYCES BOULARDII 250 MG CAPSULE PO ×2 (08:49→18:09)
[2022-12-21] MEDS: FAMOTIDINE 20 MG TABLET PO (08:49)
[2022-12-21] MEDS: LORATADINE 10 MG TABLET PO (08:50)
[2022-12-21] MEDS: lisinopriL 20 MG TABLET PO (08:51)
[2022-12-21] MEDS: INSULIN ASPART (*BKC) 100 UNITS/ML SUB-Q ×2 (08:51→12:48)
[2022-12-21] MEDS: ALPRAZolam (*CRX) 0.5 MG TABLET 1 MG PO ×3 (08:54→18:10)
[2022-12-21 09:36] LABS: Hematocrit 26.1 % (37.0-47.0); Hemoglobin 7.9 g/dL (12.0-15.0); Mean Corpuscular HGB Conc 30.3 g/dl (32-36); Mean Corpuscular Hemoglobin 28.3 pg (26-34); Mean Corpuscular Volume 93.5 fl (80-100); Mean Platelet Volume 9.8 fl (7.4-10.4); Platelet Count Result 177 k/mm3 (150-375); Red Blood Count 2.79 M/mm3 (4.2-5.4); Red Cell Distribution Width 17.5 % (11.5-14.5); White Blood Count 4.9 K/mm3 (4.5-10.0)
[2022-12-21 09:46] LABS: Anion Gap 5 mmol/L (8-16); Blood Urea Nitrogen 54 mg/dL (7-17); Calcium 8.5 mg/dL (8.4-10.2); Carbon Dioxide 30 mmol/L (22-30); Chloride 101 mmol/L (98-107); Estimated Glomerular Filt Rate 48; Glucose 185 mg/dL (65-110); Potassium 5.5 mmol/L (3.4-5.0); Sodium 136 mmol/L (137-145)
--- NOTE | 2022-12-21 09:46 | PCPTNOTE ---
Talked to patient and hospitalist. Patient is at baseline a snf patient at [facility] that is a dependent issa lift transfer. Doctor said he will remove therapy orders.
[2022-12-21 10:07] LABS: Troponin I < 0.012 ng/mL (0.000-0.034)
--- NOTE | 2022-12-21 10:25 | PCOTNOTE ---
Spoke with patient and hospitalist. Patient is at baseline a snf patient at [facility] that is a dependent issa lift transfer and is dependent with all ADLs. Hospitalist said therapy orders can be removed.
[2022-12-21 11:53] LABS: Glucose Point of Care 190 mg/dl (65-105)
--- NOTE | 2022-12-21 14:19 | PM.DS ---
DS: Admitting Diagnosis Discharge Date 12/21/22 Admitting Diagnosis Altered mental status, hypoglycemia DS: Discharge Diagnosis Discharge Diagnosis (1) Daytime hypersomnia: Code(s): G47.10 - Hypersomnia, unspecified Status: Acute (2) Hypoglycemia: Code(s): E16.2 - Hypoglycemia, unspecified Status: Acute (3) Confusion: Code(s): R41.0 - Disorientation, unspecified Status: Acute Plan #? acute metabolic encephalopathy - mentation is improving daily,may be metabolic from electrolyte imbalances. Mentation improved after correcting blood sugars -EEG done showing some generalized slowing with no epileptic features, no seizure # fluid overload -peripheral edema lower extremities 1 to 2+ pitting edema -diuresis:? Will resume home Lasix on discharge, Cr improved daily # hyperkalemia -potassium 5.5, holding lisinopril, continue lokelma 10 mg daily for a week, BMP in 1 week #? insulin-dependent type 2 diabetes - was hypoglycemic on presentation.? blood sugars are now stable on home regimen -?resume home insulin? glargine 10 units nightly, aspart 5 units t.i.d. a.c. # chronic conditions -daytime hypersomnolence:? Dr. Mccracken pulmonology recommending outpatient sleep study -hyperlipidemia: On Lipitor -bipolar disorder: P.r.n. Xanax -GERD:? Pepcid -iron deficiency:? Ferrous sulfate supplement -peripheral neuropathy:? Gabapentin -seizure disorder:? Continue Keppra, EEG done -essential hypertension:? Metoprolol, hold lisinopril for hyperkalemia -allergies:? Loratadine -insomnia: Melatonin -CKD stage IIIA: Creatinine down to 1.2 on discharge, from 1.7 on admission Diet:??Diabetic diet DVT prophylaxis:? Eliquis Code status:?Full code Disposition:? Home today DS: Summary Hospital Course Reason for hospitalization: Acute metabolic encephalopathy Hospital Course: Patient is a 47-year-old female with past history of sleep apnea, seizure disorder, hypertension, hyperlipidemia, COPD history of DVT and PE, bipolar disorder who presents to ED with complaints of altered mental status and blood sugars down to the 40s. Patient's home insulin was held and her blood sugar started to rise after correcting her hypoglycemia. Blood sugars were elevated up to 250s and her home insulin regimen has been resumed. She is doing well with the glargine 10 units and aspart 5 units t.i.d. a.c.. She will continue her home insulin regimen. For her sleep apnea, class a lineman was consulted with recommendation for outpatient sleep study. Patient previously was diagnosed with sleep apnea and had been noncompliant with CPAP treatment in the past. Patient had EEG 12/18/22 which was abnormal due to generalized slowing otherwise no epileptiform features were seen. During hospitalization patient was found to be hyperkalemic with potassium 5.3-5.5. She was treated with Lokelma 10 g b.i.d.. Her mentation continued to improve daily with correcting her glucose and monitoring electrolytes. Patient will have 1 week of Lokelma 10g daily, hold lisinopril, follow up BMP in 3 days. Has patient has come back to baseline mentation. At time of discharge patient's labs stable, vitals stable, patient is stable for discharge to correction care. Patient understands and agrees with plan. Status at Discharge Cognitive/behavioral status at discharge: baseline Time Spent with Patient Time attestation: Total time spent providing and/or coordinating discharge services: 45 min Exam Narrative: - GENERAL:? Pleasant obese woman with disability - EYES: EOMI. Anicteric. - HENT: Moist mucous membranes - LUNGS: Clear to auscultation bilaterally, no wheezing - CARDIOVASCULAR: Regular rate and rhythm. - ABDOMEN: Soft, non-tender and non-distended. No palpable masses. - EXTREMITIES: 1+ edema? lower extremities. Peripheral pulses 2+ - NEUROLOGIC: No focal neurological deficits. CN II-XII grossly intact. - PSYCHIATRIC: Awake, Alert and oriented to self and dylan
[2022-12-21 14:22] VITALS: BP 104/52; PULSE 70; RESP 16; TEMP 36.4; O2SAT 100
[2022-12-21 14:47] LABS: EDCOVIDSCREEN Negative (Negative)
[2022-12-21 17:09] LABS: Glucose Point of Care 117 mg/dl (65-105)
[2022-12-21] MEDS: INSULIN GLARGINE (*BKC) 100 UNITS/ML 10 UNITS SUB-Q (18:08)
[2022-12-21] MEDS: FUROSEMIDE INJ 40 MG/4 ML VIAL IV PUSH (18:10)
[2022-12-21 18:23] VITALS: BP 112/40; PULSE 70; RESP 14; O2SAT 100
[2022-12-21 19:58] VITALS: PULSE 70
[2022-12-21] MEDS: ATORVASTATIN 20 MG TABLET PO (19:58)
[2022-12-21 21:00] VITALS: BP 132/56; PULSE 70; RESP 16; TEMP 36.4; O2SAT 100
[2022-12-21 21:20] LABS: Glucose Point of Care 116 mg/dl (65-105)
== END 2022-12-21 21:00 | DRG 420 ==
LOC: ANHED 17:42 → ANHIMU 23:15 → ANH2MED 12-19 12:14
PROVIDERS: Internal Medicine; Internal Medicine Pulmonary Disease; Admitting Provider Internal Medicine; Emergency Provider Physician Assistant; PCP Internal Medicine; Visit Provider Student in an Organized Health Care Education/Training Program
DX: E11.649 Type 2 diabetes mellitus with hypoglycemia without coma (principal); I50.33 Acute on chronic diastolic (congestive) heart failure; G93.41 Metabolic encephalopathy; E66.01 Morbid (severe) obesity due to excess calories; E87.5 Hyperkalemia; Z68.41 Body mass index [BMI] 40.0-44.9, adult; D64.9 Anemia, unspecified; G47.10 Hypersomnia, unspecified; F41.9 Anxiety disorder, unspecified; F31.9 Bipolar disorder, unspecified; M19.90 Unspecified osteoarthritis, unspecified site; K21.9 Gastro-esophageal reflux disease without esophagitis; L30.9 Dermatitis, unspecified; G40.909 Epilepsy, unspecified, not intractable, without status epilepticus; I13.0 Hypertensive heart and chronic kidney disease with heart failure and stage 1 through stage 4 chronic kidney disease, or unspecified chronic kidney disease; E11.22 Type 2 diabetes mellitus with diabetic chronic kidney disease; N18.31 Chronic kidney disease, stage 3a; E11.42 Type 2 diabetes mellitus with diabetic polyneuropathy; G47.33 Obstructive sleep apnea (adult) (pediatric); E78.5 Hyperlipidemia, unspecified; Z20.822 Contact with and (suspected) exposure to COVID-19; E61.1 Iron deficiency; G47.00 Insomnia, unspecified; Z86.718 Personal history of other venous thrombosis and embolism; Z86.711 Personal history of pulmonary embolism; Z79.01 Long term (current) use of anticoagulants; Z91.199 Patient's noncompliance with other medical treatment and regimen due to unspecified reason; Z96.653 Presence of artificial knee joint, bilateral; Z95.0 Presence of cardiac pacemaker; Z90.49 Acquired absence of other specified parts of digestive tract; Z79.4 Long term (current) use of insulin
CPT/HCPCS: 36415; 36600; 70450; 71045; 80048; 80053; 81001; 82140; 82607; 82746; 82805; 82948; 83605; 83735; 84132; 84145; 84439; 84443; 84484; 85025; 85027; 85055; 87040; 87086; 87088; 87426; 93005; 95816; 96361; 96365; 96366; 96368; 96374; 96375; 96376; 99285; A9270; C9803; G0378; G0379; J0612; J1815; J1940; J1953; J1956; J7030; J7070

== ENCOUNTER 2023-01-24 17:17 | Observation (INO) | payer OTHER, SELFPAY ==
[2023-01-24] VITALS (17 sets, daily range): BP systolic 101–112; BP diastolic 42–86; PULSE 70–89; RESP 12–19; TEMP 36.2; O2SAT 99–100
--- NOTE | ~2023-01-24 | XR_ITS ---
EXAMINATION: XR pelvis 1-2V DATE: 01/26/2023 14:17 INDICATION: Sacral decubitus ulcers. Assess for osteomyelitis. TECHNIQUE: An anteroposterior view of the pelvis was obtained. COMPARISON: None. FINDINGS: Alignment is normal. No fracture or suspected avascular necrosis. No cortical erosions or periosteal reaction to suggest osteomyelitis. Mild osteoarthritis at the bilateral hip and sacroiliac joints. IMPRESSION: 1. Mild osteoarthritis at the bilateral hip and sacroiliac joints. Reviewed, dictated and finalized at location A.
--- NOTE | 2023-01-24 17:21 | ECG_ITS ---
Measurements Intervals [place] Rate: 70 P: 179 [place]: 187 QRS: 39 QRSD: 90 T: 31 QT: 367 QTc: 396 Interpretive Statements ELECTRONIC ATRIAL PACEMAKER LOW QRS VOLTAGE IN PRECORDIAL LEADS [QRS DEFLECTION < 1.0 mV IN CHEST LEADS] POSSIBLE ANTERIOR MYOCARDIAL INFARCTION , PROBABLY OLD [30 ms Q WAVE IN V3/V4, OR R < 0.2 mV IN V4] ABNORMAL RHYTHM ECG COMPARED TO ECG 12/20/2022 20:57:14 NO SIGNIFICANT CHANGES Electronically Signed On 01-25-2023 9:10:06 CDT by Santhosh Odonnell M.D.
--- NOTE | 2023-01-24 17:30 | ED.GENADULT ---
HPI - General Adult General Chief complaint: Recheck/Abnormal Lab/Rx <Jorge Nance PA-C - Last Filed: 01/24/23 22:33> Stated complaint: increased K <Jorge Nance PA-C - Last Filed: 01/24/23 22:33> Source: patient <Jorge Nance PA-C - Last Filed: 01/24/23 22:33> Mode of arrival: ambulatory <Jorge Nance PA-C - Last Filed: 01/24/23 22:33> Limitations: no limitations <Jorge Nance PA-C - Last Filed: 01/24/23 22:33> History of Present Illness HPI narrative: History is somewhat limited as patient will not stop crying during my exam states she is crying because she does not want to be here. This is a 47 yo F with PMH insulin dependent DM, HTN, diastolic dysfunction who presents to the ED from [facility] for chief complaint of elevated potassium drawn on lab. EMS reports facility found K+ at 6.7. Patient states that she is not in any pain. Patient nonstop crying during my exam. States that the only reason she was crying because she does not want to be here. Denies any pain anywhere. Denies shortness of breath, palpitations, leg swelling. Patient states that she has been taking all of her regular medications and has not had any changes in the doses. Denies fevers, chills, abdominal pain, vomiting. Largely asymptomatic. <Jorge Nance PA-C - Last Filed: 01/24/23 22:33> Related Data Home medications: Home Medications Medication Instructions Recorded Confirmed atorvastatin 20 mg tablet 20 mg PO HS 08/21/19 12/18/22 furosemide 20 mg tablet 40 mg PO BID 01/18/22 12/18/22 albuterol sulfate 90 mcg/actuation 2 puff inhalation Q4H PRN 04/22/22 12/18/22 aerosol inhaler Shortness Of Breath docusate sodium 100 mg capsule 100 mg PO DAILY PRN Constipation 04/22/22 12/18/22 famotidine 20 mg tablet (Pepcid) 20 mg PO DAILY 04/22/22 12/18/22 lisinopril 20 mg tablet 20 mg PO DAILY 04/22/22 12/18/22 loratadine 10 mg tablet 10 mg PO DAILY 04/22/22 12/18/22 melatonin 5 mg tablet 10 mg PO HS 04/22/22 12/18/22 methocarbamol 750 mg tablet 750 mg PO Q8H PRN Muscle Pain 04/22/22 12/18/22 metoprolol tartrate 25 mg tablet 12.5 mg PO BID 04/22/22 12/18/22 promethazine 25 mg tablet 25 mg PO Q8H PRN Nausea 08/10/22 12/18/22 apixaban 5 mg tablet (Eliquis) 5 mg PO BID 09/21/22 12/18/22 gabapentin 300 mg capsule 300 mg PO TID 09/21/22 12/18/22 insulin lispro 100 unit/mL 5 unit subcut TIDWMEAL 09/21/22 12/18/22 subcutaneous cartridge (Humalog U-100 Insulin) pioglitazone 30 mg tablet (Actos) 15 mg PO DAILY 09/21/22 12/18/22 sitagliptin phosphate 100 mg 100 mg PO DAILY 09/21/22 12/18/22 tablet (Januvia) levetiracetam 500 mg tablet 500 mg PO BID 10/15/22 12/18/22 Saccharomyces boulardii 250 mg 250 mg PO BID 12/18/22 12/18/22 capsule bisacodyl 10 mg rectal suppository 10 mg RECTAL DAILY PRN Constipation 12/18/22 12/18/22 glucagon 1 mg solution for 1 mg subcut Q1H PRN Hypoglycemia 12/18/22 12/18/22 injection (GlucaGen HypoKit) insulin glargine 100 unit/mL (3 10 unit subcut QPM 12/18/22 12/18/22 mL) subcutaneous pen (Lantus Solostar U-100 Insulin) magnesium citrate (Citroma oral 300 ml PO DAILY PRN Constipation 12/18/22 12/18/22 solution) magnesium hydroxide 400 mg/5 mL 30 ml PO HS PRN Constipation 12/18/22 12/18/22 oral suspension (Milk of Magnesia) polyethylene glycol 3350 17 gram 17 g PO DAILY PRN Constipation 12/18/22 12/18/22 oral powder packet tramadol 50 mg tablet 50 mg PO Q6H PRN Pain (Scale Score 12/18/22 12/18/22 4-6) <Jorge Nance PA-C - Last Filed: 01/24/23 22:33> Allergies/adverse reactions: Allergies Allergy/AdvReac Type Severity Reaction Status Date / Time lidocaine Allergy Intermediate HIVES Verified 10/15/22 18:06 nitroglycerin Allergy Intermediate HIVES Verified 10/15/22 18:06 aspirin Allergy Mild Hives Verified 10/15/22 18:06 citalopram Allergy Mild Rash Verified 10/15/22 18:06 escitalopram Allergy Mild Hives Verified 10/15/22 18:06 ibuprofe
[2023-01-24 17:52] LABS: Basophils Percent Auto 0.8 % (0.2-1.2); Eosinophils Absolute Auto 0.2 K/mm3 (0-0.3); Eosinophils Percent Auto 5.8 % (0-4.4); Hematocrit 30.6 % (37.0-47.0); Hemoglobin 9.3 g/dL (12.0-15.0); Immature Granulocyte Absolute 0.01 K/mm3 (0.00-0.031); Immature Granulocyte Percent A 0.3 % (0-0.5); Lymphocytes Absolute Auto 1.22 K/mm3 (0.9-3.2); Lymphocytes Percent Auto 32.3 % (18.3-44.2); Mean Corpuscular HGB Conc 30.4 g/dl (32-36); Mean Corpuscular Hemoglobin 27.7 pg (26-34); Mean Corpuscular Volume 91.1 fl (80-100); Mean Platelet Volume 9.5 fl (7.4-10.4); Monocytes Absolute Auto 0.5 K/mm3 (0.1-0.6); Monocytes Percent Auto 12.4 % (2.6-8.5); Neutrophils Absolute Auto 1.8 K/mm3 (1.3-6.7); Neutrophils Percent Auto 48.4 % (45.5-73.1); Platelet Count Result 224 k/mm3 (150-375); Red Blood Count 3.36 M/mm3 (4.2-5.4); Red Cell Distribution Width 16.6 % (11.5-14.5); White Blood Count 3.8 K/mm3 (4.5-10.0)
[2023-01-24 18:04] LABS: INR 1.3; Prothrombin Time 17.4 Seconds (11.1-14.7)
[2023-01-24 18:06] LABS: Magnesium 2.5 mg/dL (1.6-2.3); Phosphorus 5.3 mg/dL (2.5-4.5)
[2023-01-24 18:12] LABS: Alanine Aminotransferase 24 U/L (6-35); Albumin Level 3.9 g/dL (3.5-5.1); Alkaline Phosphatase 74 U/L (38-126); Anion Gap 5 mmol/L (8-16); Aspartate Amino Transferase 33 U/L (14-36); Bilirubin,Total 0.5 mg/dL (0.2-1.3); Blood Urea Nitrogen 70 mg/dL (7-17); Calcium 9.1 mg/dL (8.4-10.2); Carbon Dioxide 33 mmol/L (22-30); Chloride 104 mmol/L (98-107); Estimated Glomerular Filt Rate 37; Glucose 91 mg/dL (65-110); Potassium 6.7 mmol/L (3.4-5.0); Sodium 142 mmol/L (137-145)
[2023-01-24] MEDS: ALBUTEROL SULFATE NEB 2.5 MG/3 ML INH 10 MG INHALATION ×2 (18:25→22:32)
[2023-01-24 19:05] LABS: Creatine Kinase 25 U/L (30-135)
[2023-01-24] MEDS: DEXTROSE 50% 25 GM/50 ML SYRINGE IV PUSH ×2 (20:04→22:41)
[2023-01-24] MEDS: INSULIN HUMAN REGULAR (*BKC) 100 UNITS/ML IV PUSH ×2 (20:04→22:40)
[2023-01-24] MEDS: SODIUM CHLORIDE 0.9% IV 1,000 ML 999 ML IV CONT (20:05)
[2023-01-24 20:07] LABS: Fractional Inspired Oxygen 21 %; HCO3 VBG 28.9 mEq/l (24.0-30.0); PCO2 VBG 49.9 mmHg (42.0-48.0); PO2 VBG 73.2 mmHg (35.0-45.0); pH VBG 7.381 (7.300-7.400)
[2023-01-24 20:27] LABS: Appearance Urine Cloudy (Clear); Bacteria Urine 4+ /hpf; Bilirubin Urine Negative (Negative); Blood Urine 2+ (Negative); Color Urine Yellow (Yellow); Glucose Urine UA Negative (Negative); Ketones Urine Negative (Negative); Leukocyte Esterase Ur 3+ LEU/UL (Negative); Need Manual Microscopic Reviewed; Nitrate Urine Negative (Negative); Non Pathogenic Casts >20; Protein Urine 1+ mg/dL (Negative); RBC Urine 21-50 /hpf (0-2); Specific Grav Ur 1.011 (1.001-1.035); Squamous Epithelial Cell Urine Occasional /hpf (Few); Urobilinogen Urine 0.2 mg/dL (<2.0); WBC Urine 21-50 /hpf
[2023-01-24 20:29] LABS: Add Urine Microscopic? YES
[2023-01-24] MEDS: CALCIUM GLUC 1,000 MG/NS 50 ML 1,000 MG/50 ML BAG 100 MG IVPB (20:29)
[2023-01-24 21:03] LABS: Glucose Point of Care 141 mg/dl (65-105)
[2023-01-24 22:20] LABS: Anion Gap 3 mmol/L (8-16); Blood Urea Nitrogen 68 mg/dL (7-17); Calcium 8.5 mg/dL (8.4-10.2); Carbon Dioxide 30 mmol/L (22-30); Chloride 108 mmol/L (98-107); Estimated Glomerular Filt Rate 40; Glucose 107 mg/dL (65-110); Potassium 5.7 mmol/L (3.4-5.0); Sodium 141 mmol/L (137-145)
[2023-01-24] MEDS: SODIUM CHLORIDE 0.9% IV 1,000 ML 75 ML IV CONT (22:41)
--- NOTE | 2023-01-24 23:01 | PM.IMHP ---
H&P: HPI History of Present Illness Date/Time: 01/24/23 23:00 Chief Complaint: High potassium level. Narrative: This is 47-year-old female with multiple medical problems including insulin-dependent diabetes, hypertension, GERD, seizures, DVT and PE on chronic anticoagulation, bipolar disorder, sleep apnea, diastolic dysfunction, noncompliance, and other comorbidities who presented to the emergency department via EMS from [facility] after she was found to have a high potassium level. She is well known to myself and the hospitalist service from multiple admissions over the years. She is not always cooperative with assessment and examined today is no different. She moans almost the entire time that I am in the room with her. On occasion she will stop moaning to answer questions. She indicates to me that her stomach is not feeling well and that she has generalized abdominal pain which she cannot really describe. On exam she does have tenderness to palpation in the suprapubic region and she is noted to have an indwelling Jenkins catheter. She apparently had labs drawn today which showed that her potassium was high and that is why she was sent in. Recent visits were reviewed and it is noted that she has had worsening renal function this year however is also noted that she has required diuretics to keep her volume status under control. To her knowledge she has not had any recent change in medications. She believes that her Jenkins catheter is draining normally. She denies fever, chills, sweats, chest pain, shortness a breath, nausea, vomiting, and diarrhea. In the ED she was found to have a sodium of 142, potassium 6.7, BUN 70, creatinine 1.50. She received appropriate treatment for the hyperkalemia with a repeat potassium of 5.7. She is being admitted in this setting for further treatment and monitoring. She has also been started on Rocephin for possible urinary tract infection, pending culture. Review of Systems Review of Systems: Twelve systems were reviewed. She does not always answer my questions but she does specifically deny those as listed in the HPI. [facility] Past Medical History Medical History (Updated 01/24/23 @ 23:11 by Suzy Melgar PA-C) Anemia Anxiety Arthritis Asthma Bipolar disorder Chronic anticoagulation For history of DVT and PE. Chronic kidney disease Chronic obstructive pulmonary disease Chronic pain syndrome Deep venous thrombosis Depression Diastolic dysfunction Eczema Epilepsy Gastroesophageal reflux disease Herniated disc History of MRSA infection Hyperlipidemia Hypertension Insulin dependent diabetes mellitus Historically poorly controlled. Obesity Obstructive sleep apnea Non compliant with treatment. Peripheral neuropathy Pulmonary embolism Seizures Suicide attempt T11 vertebral fracture Nondisplaced fracture of the right T11 inferior articulating facet. No surgical intervention required. Surgical History Surgical History History of bilateral knee replacement History of cardiac catheterization History of cardiac pacemaker For paroxysmal ventricular arrhythmia/tachycardia. History of cholecystectomy Family History Family History Mother Heart disease Acute myocardial infarction Uterine cancer COVID-19 Diabetes mellitus Hypertension Kidney disease Father Heart disease Social History Social History Social History: Surrogate medical decision maker: Meño Marquez, significant other. Code status: Full code. Smoking packs per day: 1.5 Smoking cigarettes per day: 30.0 Years smoked: 9 Smoking pack-years: 13.50 Smoking status: Former smoker Second hand tobacco smoke exposure: Yes Alcohol intake: never Substance use: never Substance use type: does not use Lack of Transportation: YES Lack of Food
--- NOTE | 2023-01-24 23:36 | ADMGEN ---
This patient, Valerie Nguyen, was admitted to IMU Room 212-01. Patient/family oriented to hospital policies and general routines including ID bracelet, bed and alarms, visiting hours, pain management, procedures, bathroom and other care routines, personal items, smoking policy, room service/diet, and visiting hours. Information on how to activate the Rapid Response Team has been discussed. Patient/Family are encouraged to report perceived risks to care and to ask questions if they do not understand what they are told or what they should do.
--- NOTE | 2023-01-24 23:42 | PC.NURSE ---
[id number] - Carmela from [facility] called for an update. Informed her of pt admission to IMU.
[2023-01-25] VITALS (15 sets, daily range): BP systolic 111–148; BP diastolic 42–82; PULSE 70–88; RESP 16–20; TEMP 36.3–37.1; O2SAT 97–100; BMI 44.4
[2023-01-25] MEDS: APIXABAN 5 MG TABLET PO ×3 (01:40→20:10)
[2023-01-25] MEDS: levETIRAcetam 500 MG TABLET PO ×3 (01:40→20:10)
[2023-01-25 06:23] LABS: Hematocrit 25.9 % (37.0-47.0); Hemoglobin 7.7 g/dL (12.0-15.0); Mean Corpuscular HGB Conc 29.7 g/dl (32-36); Mean Corpuscular Hemoglobin 28.6 pg (26-34); Mean Corpuscular Volume 96.3 fl (80-100); Mean Platelet Volume 10.9 fl (7.4-10.4); Platelet Count Result 170 k/mm3 (150-375); Red Blood Count 2.69 M/mm3 (4.2-5.4); Red Cell Distribution Width 16.9 % (11.5-14.5); White Blood Count 3.8 K/mm3 (4.5-10.0)
[2023-01-25 07:05] LABS: Alanine Aminotransferase 22 U/L (6-35); Albumin Level 3.4 g/dL (3.5-5.1); Alkaline Phosphatase 60 U/L (38-126); Anion Gap 7 mmol/L (8-16); Aspartate Amino Transferase 38 U/L (14-36); Bilirubin,Total 0.5 mg/dL (0.2-1.3); Blood Urea Nitrogen 70 mg/dL (7-17); Calcium 8.4 mg/dL (8.4-10.2); Carbon Dioxide 23 mmol/L (22-30); Chloride 110 mmol/L (98-107); Estimated Glomerular Filt Rate 37; Glucose 131 mg/dL (65-110); Magnesium 2.4 mg/dL (1.6-2.3); Potassium 6.5 mmol/L (3.4-5.0); Sodium 140 mmol/L (137-145)
[2023-01-25 08:37] LABS: Glucose Point of Care 126 mg/dl (65-105)
[2023-01-25] MEDS: CALCIUM GLUC 1,000 MG/NS 100ML 1,000 MG/100 ML BAG 200 MG IVPB (09:25)
[2023-01-25] MEDS: DEXTROSE 50% 25 GM/50 ML SYRINGE IV PUSH ×2 (09:26→15:43)
[2023-01-25] MEDS: SODIUM BICARBONATE 8.4% 50 MEQ/50 ML SYRINGE IV PUSH (09:26)
[2023-01-25] MEDS: FUROSEMIDE INJ 40 MG/4 ML VIAL 20 MG IV PUSH (09:26)
[2023-01-25] MEDS: INSULIN HUMAN REGULAR (*BKC) 100 UNITS/ML 10 UNITS IV PUSH ×2 (09:26→15:43)
[2023-01-25 10:54] LABS: Anion Gap 7 mmol/L (8-16); Blood Urea Nitrogen 66 mg/dL (7-17); Calcium 8.8 mg/dL (8.4-10.2); Carbon Dioxide 29 mmol/L (22-30); Chloride 106 mmol/L (98-107); Estimated Glomerular Filt Rate 32; Glucose 174 mg/dL (65-110); Potassium 5.4 mmol/L (3.4-5.0); Sodium 142 mmol/L (137-145)
[2023-01-25 12:21] LABS: Glucose Point of Care 124 mg/dl (65-105)
[2023-01-25] MEDS: SODIUM CHLORIDE 0.9% IV 1,000 ML 75 ML IV CONT (14:11)
[2023-01-25 15:08] LABS: Anion Gap 8 mmol/L (8-16); Blood Urea Nitrogen 65 mg/dL (7-17); Calcium 8.9 mg/dL (8.4-10.2); Carbon Dioxide 24 mmol/L (22-30); Chloride 107 mmol/L (98-107); Estimated Glomerular Filt Rate 44; Glucose 168 mg/dL (65-110); Potassium 5.9 mmol/L (3.4-5.0); Sodium 139 mmol/L (137-145)
--- NOTE | 2023-01-25 15:17 | PM.IMPN ---
Progress Note: A&P Assessment and Plan (1) Hyperkalemia: Code(s): E87.5 - Hyperkalemia Status: Acute Assessment and Plan: Resolving, cont telemetry, monitor, recheck BMP D5 + insulin given, albuterol, kayexelate (2) Chronic kidney disease: Code(s): N18.9 - Chronic kidney disease, unspecified Status: Acute Assessment and Plan: JAYESH on CKD, improving (3) Abnormal urinalysis: Code(s): R82.90 - Unspecified abnormal findings in urine Status: Acute Assessment and Plan: Continue Rocephin for UTI started 01/24 Follow-up urine cultures (4) Insulin dependent diabetes mellitus: Status: Acute Assessment and Plan: A1c is 7 Accu-Cheks, sliding scale insulin, continue home meds (5) Diastolic dysfunction: Code(s): I51.89 - Other ill-defined heart diseases Status: Acute Assessment and Plan: Appears euvolemic, monitor (6) Obstructive sleep apnea: Code(s): G47.33 - Obstructive sleep apnea (adult) (pediatric) Status: Acute Assessment and Plan: CPAP as tolerated (7) Epilepsy: Code(s): G40.909 - Epilepsy, unspecified, not intractable, without status epilepticus Status: Acute Assessment and Plan: Continue home Keppra, no seizure activity noted (8) Chronic anticoagulation: Code(s): Z79.01 - 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 No chest pain or shortness of breath. No nausea, vomiting or diarrhea. No fevers or chills. No complaints. Review of Systems Review of Systems: 12 point review of systems was assessed and was negative except as noted in the HPI Exam Narrative: General: No acute distress, alert and oriented per baseline HEENT: Atraumatic, normocephalic, mucous membranes moist CV: Regular rate and rhythm, S1, S2 Lungs: Clear to auscultation bilaterally, no rales or crackles noted, no wheezes, good air entry Abdomen: Soft, nontender, nondistended Extremities: Normal to inspection, 2+ non pitting edema B/L LE Skin: No rashes noted, no lesions or wounds seen Psych: Euthymic, normal affect Objective Data Vital Signs Vital Signs: Vital Signs - 24 hr 01/24/23 17:51 01/24/23 18:28 01/24/23 19:35 Temperature 97.2 F L Pulse Rate 70 71 84 Respiratory Rate 14 16 16 Blood Pressure 112/86 Pulse Oximetry 99 Oxygen Delivery Room Air 01/24/23 22:30 01/24/23 18:54 01/24/23 19:15 Temperature Pulse Rate 80 73 80 Respiratory Rate 14 14 16 Blood Pressure Pulse Oximetry Oxygen Delivery 01/24/23 19:45 01/24/23 20:15 01/24/23 20:30 Temperature Pulse Rate 89 88 87 Respiratory Rate 16 15 13 Blood Pressure Pulse Oximetry Oxygen Delivery 01/24/23 20:45 01/24/23 21:00 01/24/23 21:15 Temperature Pulse Rate 86 88 85 Respiratory Rate 12 14 16 Blood Pressure Pulse Oximetry Oxygen Delivery 01/24/23 21:30 01/24/23 22:00 01/24/23 22:15 Temperature Pulse Rate 85 79 80 Respiratory Rate 15 12 19 Blood Pressure Pulse Oximetry Oxygen Delivery 01/24/23 22:45 01/24/23 23:05 01/25/23 00:00 Temperature 97.6 F Pulse Rate 81 84 83 Respiratory Rate 16 12 18 Blood Pressure 101/42 L 115/82 Pulse Oximetry 100 100 Oxygen Delivery 01/25/23 00:00 01/25/23 00:00 01/25/23 03:26 Temperature 97.8 F Pulse Rate 78 74 Respiratory Rate 20 Blood Pressure 119/76 Pulse Oximetry 99 Oxygen Delivery Room Air 01/25/23 02:00 01/25/23 04:00 01/25/23 04:00 Temperature Pulse Rate 76 77 Respiratory Rate Blood Pressure Pulse Oximetry Oxygen Delivery Room Air 01/25/23 06:00 01/25/23 08:00 01/25/23
[2023-01-25] MEDS: ALBUTEROL SULFATE NEB 2.5 MG/3 ML INH INHALATION (15:38)
[2023-01-25] MEDS: SODIUM POLYSTYRENE SULFONONATE 15 GM/60 ML BTL 30 GM PO (15:43)
--- NOTE | 2023-01-25 16:42 | PC.NURSE ---
This patient, Valerie Nguyen, was transferred to [facility] on 01/25/23 at 1617. Personal belongings sent with patient. Report given to Sumit SANTILLAN. Appropriate documentation sent with patient.
[2023-01-25 17:15] LABS: Glucose Point of Care 172 mg/dl (65-105)
[2023-01-25] MEDS: FERROUS SULFATE 324 MG TABLET PO (17:23)
[2023-01-25] MEDS: ALPRAZolam (*CRX) 0.5 MG TABLET 1 MG PO (17:23)
[2023-01-25] MEDS: SACCHAROMYCES BOULARDII 250 MG CAPSULE PO (17:24)
[2023-01-25] MEDS: GABAPENTIN 300 MG CAPSULE PO (17:24)
[2023-01-25] MEDS: METOPROLOL TARTRATE 12.5 MG TABLET PO (17:24)
[2023-01-25] MEDS: INSULIN GLARGINE (*BKC) 100 UNITS/ML 10 UNITS SUB-Q (17:25)
[2023-01-25] MEDS: INSULIN ASPART (*BKC) 100 UNITS/ML 7 UNITS SUB-Q (17:27)
[2023-01-25 20:01] LABS: Potassium 5.3 mmol/L (3.4-5.0)
[2023-01-25] MEDS: TOLNAFTATE 1% POWDER 45 GM BTL 1 APPLIC TOPICAL (20:10)
[2023-01-25] MEDS: MELATONIN 5 MG TABLET 10 MG PO (20:10)
[2023-01-25] MEDS: ATORVASTATIN 20 MG TABLET PO (20:10)
[2023-01-25] MEDS: traMADol HCL (*CRX) 50 MG TABLET PO (20:12)
[2023-01-25 20:23] LABS: Glucose Point of Care 119 mg/dl (65-105)
--- NOTE | 2023-01-25 22:18 | PC.NURSE ---
Patient refused to be turned and positioned. Patient crying and screaming in her room, when asked why she is crying and screaming she states she doesn't know why and then starts yelling at staff.
[2023-01-26] VITALS (10 sets, daily range): BP systolic 95–157; BP diastolic 43–72; PULSE 69–85; RESP 14–16; TEMP 36.4–37; O2SAT 96–100
[2023-01-26] MEDS: SODIUM CHLORIDE 0.9% IV 1,000 ML 75 ML IV CONT (04:12)
[2023-01-26 08:43] LABS: Glucose Point of Care 173 mg/dl (65-105)
[2023-01-26] MEDS: INSULIN ASPART (*BKC) 100 UNITS/ML 7 UNITS SUB-Q ×2 (09:03→12:59)
[2023-01-26] MEDS: levETIRAcetam 500 MG TABLET PO ×2 (09:04→20:10)
[2023-01-26] MEDS: PIOGLITAZONE HCL 15 MG TAB PO (09:04)
[2023-01-26] MEDS: LORATADINE 10 MG TABLET PO (09:05)
[2023-01-26] MEDS: FAMOTIDINE 20 MG TABLET PO (09:05)
[2023-01-26] MEDS: APIXABAN 5 MG TABLET PO ×2 (09:05→20:10)
[2023-01-26] MEDS: GABAPENTIN 300 MG CAPSULE PO ×3 (09:05→17:40)
[2023-01-26] MEDS: SACCHAROMYCES BOULARDII 250 MG CAPSULE PO ×2 (09:05→17:40)
[2023-01-26] MEDS: FERROUS SULFATE 324 MG TABLET PO ×2 (09:05→17:40)
[2023-01-26] MEDS: METOPROLOL TARTRATE 12.5 MG TABLET PO ×2 (09:11→17:41)
[2023-01-26] MEDS: TOLNAFTATE 1% POWDER 45 GM BTL 1 APPLIC TOPICAL ×2 (09:12→20:10)
[2023-01-26] MEDS: ALPRAZolam (*CRX) 0.5 MG TABLET 1 MG PO ×3 (09:14→17:39)
[2023-01-26 10:01] LABS: Basophils Percent Auto 0.5 % (0.2-1.2); Eosinophils Absolute Auto 0.2 K/mm3 (0-0.3); Hematocrit 25.3 % (37.0-47.0); Hemoglobin 7.4 g/dL (12.0-15.0); Immature Granulocyte Absolute 0.01 K/mm3 (0.00-0.031); Immature Granulocyte Percent A 0.3 % (0-0.5); Lymphocytes Absolute Auto 0.83 K/mm3 (0.9-3.2); Lymphocytes Percent Auto 22.2 % (18.3-44.2); Mean Corpuscular HGB Conc 29.2 g/dl (32-36); Mean Corpuscular Hemoglobin 27.2 pg (26-34); Mean Platelet Volume 9.7 fl (7.4-10.4); Monocytes Absolute Auto 0.5 K/mm3 (0.1-0.6); Monocytes Percent Auto 12.3 % (2.6-8.5); Neutrophils Absolute Auto 2.3 K/mm3 (1.3-6.7); Neutrophils Percent Auto 60.7 % (45.5-73.1); Platelet Count Result 169 k/mm3 (150-375); Red Blood Count 2.72 M/mm3 (4.2-5.4); Red Cell Distribution Width 16.9 % (11.5-14.5); White Blood Count 3.7 K/mm3 (4.5-10.0)
[2023-01-26 10:28] LABS: Alanine Aminotransferase 18 U/L (6-35); Albumin Level 3.2 g/dL (3.5-5.1); Alkaline Phosphatase 60 U/L (38-126); Anion Gap 5 mmol/L (8-16); Aspartate Amino Transferase 19 U/L (14-36); Bilirubin,Total 0.3 mg/dL (0.2-1.3); Blood Urea Nitrogen 53 mg/dL (7-17); Calcium 8.3 mg/dL (8.4-10.2); Carbon Dioxide 28 mmol/L (22-30); Chloride 107 mmol/L (98-107); Estimated Glomerular Filt Rate 48; Glucose 199 mg/dL (65-110); Potassium 4.9 mmol/L (3.4-5.0); Sodium 140 mmol/L (137-145)
[2023-01-26 10:30] LABS: Anisocytosis 1+ (NORMAL); Hypochromasia 1+ (NORMAL); Platelet Estimate Adequate (Adequate); Schistocytes None Seen (NORMAL)
[2023-01-26 12:01] LABS: Glucose Point of Care 186 mg/dl (65-105)
--- NOTE | 2023-01-26 13:20 | PM.IMPN ---
Progress Note: A&P Assessment and Plan (1) Hyperkalemia: Code(s): E87.5 - Hyperkalemia Status: Acute Assessment and Plan: Resolving, cont telemetry, monitor, recheck BMP D5 + insulin given, albuterol, kayexelate (2) Chronic kidney disease: Code(s): N18.9 - Chronic kidney disease, unspecified Status: Acute Assessment and Plan: JAYESH on CKD, improving (3) Abnormal urinalysis: Code(s): R82.90 - Unspecified abnormal findings in urine Status: Acute Assessment and Plan: Continue Rocephin for UTI started 01/24 Follow-up urine cultures (4) Insulin dependent diabetes mellitus: Status: Acute Assessment and Plan: A1c is 7 Accu-Cheks, sliding scale insulin, continue home meds (5) Diastolic dysfunction: Code(s): I51.89 - Other ill-defined heart diseases Status: Acute Assessment and Plan: Appears euvolemic, monitor (6) Obstructive sleep apnea: Code(s): G47.33 - Obstructive sleep apnea (adult) (pediatric) Status: Acute Assessment and Plan: CPAP as tolerated (7) Epilepsy: Code(s): G40.909 - Epilepsy, unspecified, not intractable, without status epilepticus Status: Acute Assessment and Plan: Continue home Keppra, no seizure activity noted (8) Chronic anticoagulation: Code(s): Z79.01 - devops (current) use of anticoagulants Status: Acute Assessment and Plan: Continue Eliquis Plan DVT prophylaxis with Eliquis GI prophylaxis not indicated Code status full code Subjective Date/time seen: 01/26/23 13:20 Interval history: No overnight events noted. No chest pain or shortness of breath. No nausea, vomiting or diarrhea. No fevers or chills. No complaints. Review of Systems Review of Systems: 12 point review of systems was assessed and was negative except as noted in the HPI Exam Narrative: General: No acute distress, alert and oriented per baseline HEENT: Atraumatic, normocephalic, mucous membranes moist CV: Regular rate and rhythm, S1, S2 Lungs: Clear to auscultation bilaterally, no rales or crackles noted, no wheezes, good air entry Abdomen: Soft, nontender, nondistended Extremities: Normal to inspection, 2+ non pitting edema B/L LE Skin: No rashes noted, no lesions or wounds seen Psych: Euthymic, normal affect Objective Data Vital Signs Vital Signs: Vital Signs - 24 hr 01/25/23 14:00 01/25/23 15:40 01/25/23 15:52 Temperature Pulse Rate 74 80 82 Respiratory Rate 18 18 Blood Pressure Pulse Oximetry Oxygen Delivery 01/25/23 16:00 01/25/23 17:24 01/25/23 16:00 Temperature 98.0 F Pulse Rate 88 84 84 Respiratory Rate 18 Blood Pressure 144/65 H Pulse Oximetry 100 Oxygen Delivery 01/25/23 16:24 01/25/23 19:26 01/25/23 20:00 Temperature 98.7 F Pulse Rate 85 82 Respiratory Rate 16 Blood Pressure 116/42 L Pulse Oximetry 100 Oxygen Delivery Room Air 01/26/23 00:00 01/26/23 00:00 01/26/23 04:00 Temperature 98 F 98 F Pulse Rate 75 76 74 Respiratory Rate 16 16 Blood Pressure 95/49 L 104/43 L Pulse Oximetry 97 100 Oxygen Delivery 01/26/23 04:00 01/26/23 09:11 01/26/23 09:15 Temperature Pulse Rate 84 85 85 Respiratory Rate 14 Blood Pressure 157/72 H Pulse Oximetry 96 Oxygen Delivery 01/26/23 10:35 01/26/23 09:05 Temperature 97.6 F Pulse Rate 76 Respiratory Rate 16 Blood Pressure 144/70 H Pulse Oximetry 100 Oxygen Delivery Room Air Intake/Output Intake/Output: Intake & Output 01/23/23 01/24/23 01/25/23 01/26/23 23:59 23:59 23:59 23:59 Intake Total 1050 2290 1970 Output Total 1975 700 Balance 8213 628 2831 Meds/Results Medications: Active Medications Generic Name Dose Route Start Last Admin Trade Name Freq PRN Reason Stop Dose Admin Albuterol 2 puff 01/25/23 15:29 Albuterol Sulfate (*
--- NOTE | 2023-01-26 16:51 | PM.DS ---
DS: Admitting Diagnosis Discharge Date 01/26/23 Admitting Diagnosis high potassium DS: Discharge Diagnosis Discharge Diagnosis (1) Hyperkalemia: Code(s): E87.5 - Hyperkalemia Status: Acute Assessment and Plan: Resolving, cont telemetry, monitor, recheck BMP D5 + insulin given, albuterol, kayexelate (2) Chronic kidney disease: Code(s): N18.9 - Chronic kidney disease, unspecified Status: Acute Assessment and Plan: JAYESH on CKD, improving (3) Abnormal urinalysis: Code(s): R82.90 - Unspecified abnormal findings in urine Status: Acute Assessment and Plan: Continue Rocephin for UTI started 01/24 Follow-up urine cultures (4) Insulin dependent diabetes mellitus: Status: Acute Assessment and Plan: A1c is 7 Accu-Cheks, sliding scale insulin, continue home meds (5) Diastolic dysfunction: Code(s): I51.89 - Other ill-defined heart diseases Status: Acute Assessment and Plan: Appears euvolemic, monitor (6) Obstructive sleep apnea: Code(s): G47.33 - Obstructive sleep apnea (adult) (pediatric) Status: Acute Assessment and Plan: CPAP as tolerated (7) Epilepsy: Code(s): G40.909 - Epilepsy, unspecified, not intractable, without status epilepticus Status: Acute Assessment and Plan: Continue home Keppra, no seizure activity noted (8) Chronic anticoagulation: Code(s): Z79.01 - custodial (current) use of anticoagulants Status: Acute Assessment and Plan: Continue Eliquis Plan DVT prophylaxis with Eliquis GI prophylaxis not indicated Code status full code DS: Summary Hospital Course Hospital Course: 47-year-old female with multiple medical problems including diabetes, PE on chronic anticoagulation, bipolar disorder diastolic heart failure is presenting from [facility] crossing with an incidental finding of hyperkalemia. Etiology unknown, this was corrected relatively quickly with IV fluid administration Kayexalate. She was discharged in stable condition on her home medications. Of note, she was thought to have a UTI started on Rocephin, however, she was asymptomatic and urine culture came back negative for infection. Antibiotics were not continued. She was also found to have a pressure ulcer on her sacral area, x-rays negative for any ostial involvement nor cellulitis. Recommend better positional care at the facility. Please see above and med rec for details. Time Spent with Patient Time attestation: Total time spent providing and/or coordinating discharge services: Exam Narrative: General: No acute distress, alert and oriented per baseline HEENT: Atraumatic, normocephalic, mucous membranes moist CV: Regular rate and rhythm, S1, S2 Lungs: Clear to auscultation bilaterally, no rales or crackles noted, no wheezes, good air entry Abdomen: Soft, nontender, nondistended Extremities: Normal to inspection, 1+ non pitting edema B/L LE Skin: No rashes noted, no lesions or wounds seen Psych: Euthymic, normal affect DS: Data Data Completed and Pending Labs on day of discharge: Labs from last 24 hours 01/26/23 01/26/23 01/26/23 11:57 09:33 08:16 WBC 3.7 L RBC 2.72 L Hgb 7.4 L Hct 25.3 L MCV 93.0 MCH 27.2 MCHC 29.2 L RDW 16.9 H Plt Count 169 MPV 9.7 Immature Gran % (Auto) 0.3 Neut % (Auto) 60.7 Lymph % (Auto) 22.2 [place] % (Auto) 12.3 H Eos % (Auto) 4.0 Baso % (Auto) 0.5 Lymph # (Auto) 0.83 L [place] # (Auto) 0.5 Eos # (Auto) 0.2 Baso # (Auto) 0.0 Abs Immat Gran (auto) 0.01 Absolute Neuts (auto) 2.3 Absolute Nucleated RBC 0.0 Nucleated RBC % 0.0 Platelet Estimate Adequate Hypochromasia 1+ Anisocytosis 1+ Schistocytes None seen Sodium 140 Potassium 4.9 Chloride 107 Carbon Dioxide 28 Anion Gap 5 L BUN 53 H D Creatinine 1.
[2023-01-26 17:24] LABS: Glucose Point of Care 77 mg/dl (65-105)
[2023-01-26] MEDS: INSULIN GLARGINE (*BKC) 100 UNITS/ML 10 UNITS SUB-Q (17:47)
[2023-01-26 18:02] LABS: EDCOVIDSCREEN Negative (Negative)
[2023-01-26] MEDS: MELATONIN 5 MG TABLET 10 MG PO (20:10)
[2023-01-26] MEDS: ATORVASTATIN 20 MG TABLET PO (20:10)
[2023-01-26 21:12] LABS: Glucose Point of Care 126 mg/dl (65-105)
== END 2023-01-26 21:10 ==
LOC: ANHED 22:28 → ANHIMU 23:10 → ANH2MED 01-26 16:51 → ANHIMU 01-27 15:37
PROVIDERS: Physician Assistant; Admitting Provider Internal Medicine; Emergency Provider Physician Assistant; PCP Internal Medicine; Visit Provider Student in an Organized Health Care Education/Training Program
DX: E87.6 Hypokalemia (principal); D64.9 Anemia, unspecified; J44.9 Chronic obstructive pulmonary disease, unspecified; G89.4 Chronic pain syndrome; Z20.822 Contact with and (suspected) exposure to COVID-19; I13.0 Hypertensive heart and chronic kidney disease with heart failure and stage 1 through stage 4 chronic kidney disease, or unspecified chronic kidney disease; E11.22 Type 2 diabetes mellitus with diabetic chronic kidney disease; N18.9 Chronic kidney disease, unspecified; E11.42 Type 2 diabetes mellitus with diabetic polyneuropathy; G40.909 Epilepsy, unspecified, not intractable, without status epilepticus; K21.9 Gastro-esophageal reflux disease without esophagitis; F32.A Depression, unspecified; R94.31 Abnormal electrocardiogram [ECG] [EKG]; G47.33 Obstructive sleep apnea (adult) (pediatric); E78.5 Hyperlipidemia, unspecified; E87.5 Hyperkalemia; E66.9 Obesity, unspecified; R82.90 Unspecified abnormal findings in urine; Z68.42 Body mass index [BMI] 45.0-49.9, adult; Z86.718 Personal history of other venous thrombosis and embolism; Z79.51 Long term (current) use of inhaled steroids; Z79.01 Long term (current) use of anticoagulants; Z79.4 Long term (current) use of insulin; Z79.84 Long term (current) use of oral hypoglycemic drugs; Z79.891 Long term (current) use of opiate analgesic; Z83.3 Family history of diabetes mellitus; Z82.49 Family history of ischemic heart disease and other diseases of the circulatory system; Z84.1 Family history of disorders of kidney and ureter
CPT/HCPCS: 36415; 72170; 80048; 80053; 81001; 82550; 82803; 82948; 83036; 83735; 84100; 84132; 84443; 85025; 85027; 85610; 87086; 87088; 87426; 93005; 94640; 96360; 96361; 96365; 96367; 96375; 96376; 99285; A9270; C9803; G0378; G0379; J0612; J0696; J1815; J1940; J7030

== ENCOUNTER 2023-04-03 00:24 | Emergency (ER) | payer OTHER, SELFPAY ==
--- NOTE | ~2023-04-03 | CT_ITS ---
EXAMINATION: CT cervical spine wo con DATE: 04/03/2023 01:23 INDICATION: Neck pain. Fall. TECHNIQUE: Computed tomography (CT) of the cervical spine was performed without intravenous contrast. Automated exposure control and iterative reconstruction technique were employed. The dose-length pro duct was 513.36 mGy-cm. COMPARISON: None FINDINGS: There is a left chest pacer. There is 8 degrees levocurvature of cervicothoracic spine. Denny tebral body heights are normal. There is mildly decreased disc height at C2-C3. There is fusion of th e skull base and C1. The following disc levels are specifically discussed: C2-C3: There is mild bilateral uncovertebral joint osteoarthritis. There is mild bilateral facet join t osteoarthritis. There is mild right neural foraminal stenosis. There is no central canal stenosis. C3-C4: There is mild bilateral uncovertebral joint osteoarthritis. There is mild bilateral facet join t osteoarthritis. There is no neural foraminal stenosis. There is no central canal stenosis. C4-C5: There is no uncovertebral joint osteoarthritis. There is mild right and severe left facet join t osteoarthritis. There is no neural foraminal stenosis. There is no central canal stenosis. C5-C6: There is mild right uncovertebral joint osteoarthritis. There is no facet joint osteoarthritis . There is no neural foraminal stenosis. There is no central canal stenosis. C6-C7: There is no uncovertebral joint osteoarthritis. There is mild right and moderate left facet allison int osteoarthritis. There is mild left neural foraminal stenosis. There is no central canal stenosis. C7-T1: There is no uncovertebral joint osteoarthritis. There is mild bilateral facet joint osteoarthr itis. There is no neural foraminal stenosis. There is no central canal stenosis. IMPRESSION: 1. No fracture. 2. Mild cervical spondylosis. Reviewed, dictated and finalized at [facility].
--- NOTE | ~2023-04-03 | CT_ITS ---
EXAMINATION: CT brain wo con DATE: 04/03/2023 01:22 INDICATION: Head injury. TECHNIQUE: Computed tomography (CT) of the head was performed without intravenous contrast. The mA wa s adjusted according to patient size. Iterative reconstruction technique was employed. The dose-lengt h product was 681.00 mGy-cm. COMPARISON: Head CT 12/17/2022 FINDINGS: There is no intracranial hemorrhage, acute infarction, or abnormal intracranial mass lesion . The ventricles are normal in size. There is mild mucosal thickening in the paranasal sinuses. The m astoid air cells are normal. There is cerumen in the external auditory canals. The orbits are normal. IMPRESSION: 1. Normal brain. Reviewed, dictated and finalized at location [facility]. IMPRESSION: 1. Normal brain.
[2023-04-03 00:39] VITALS: BP 122/86; PULSE 94; RESP 20; TEMP 36.4; O2SAT 100
--- NOTE | 2023-04-03 01:31 | ED.FALL ---
HPI - Fall General Chief Complaint: Fall Stated Complaint: FALL History of Present Illness HPI Narrative: 47-year-old female presenting to the emergency department from local assisted after having a ground-level fall. Patient is complaining of neck pain. Patient denies any other pain or injury. Related Data Home Medications Medication Instructions Recorded Confirmed atorvastatin 20 mg tablet 20 mg PO HS 08/21/19 01/24/23 furosemide 20 mg tablet 40 mg PO BID 01/18/22 01/24/23 albuterol sulfate 90 mcg/actuation 2 puff inhalation Q4H PRN 04/22/22 01/25/23 aerosol inhaler Shortness Of Breath docusate sodium 100 mg capsule 100 mg PO DAILY PRN Constipation 04/22/22 01/25/23 famotidine 20 mg tablet (Pepcid) 20 mg PO DAILY 04/22/22 01/25/23 lisinopril 20 mg tablet 20 mg PO DAILY 04/22/22 01/24/23 loratadine 10 mg tablet 10 mg PO DAILY 04/22/22 01/24/23 melatonin 5 mg tablet 10 mg PO HS 04/22/22 01/24/23 methocarbamol 750 mg tablet 750 mg PO Q8H PRN Muscle Pain 04/22/22 01/24/23 metoprolol tartrate 25 mg tablet 12.5 mg PO BID 04/22/22 01/24/23 promethazine 25 mg tablet 25 mg PO Q8H PRN Nausea 08/10/22 01/24/23 apixaban 5 mg tablet (Eliquis) 5 mg PO BID 09/21/22 01/24/23 gabapentin 300 mg capsule 300 mg PO TID 09/21/22 01/24/23 insulin lispro 100 unit/mL 7 unit subcut TIDWMEAL 09/21/22 01/25/23 subcutaneous cartridge (Humalog U-100 Insulin) pioglitazone 30 mg tablet (Actos) 15 mg PO DAILY 09/21/22 01/25/23 sitagliptin phosphate 100 mg 100 mg PO DAILY 09/21/22 01/25/23 tablet (Januvia) levetiracetam 500 mg tablet 500 mg PO BID 10/15/22 01/25/23 Saccharomyces boulardii 250 mg 250 mg PO BID 12/18/22 01/25/23 capsule bisacodyl 10 mg rectal suppository 10 mg RECTAL DAILY PRN Constipation 12/18/22 01/25/23 glucagon 1 mg solution for 1 mg subcut Q1H PRN Hypoglycemia 12/18/22 01/25/23 injection (GlucaGen HypoKit) insulin glargine 100 unit/mL (3 10 unit subcut QPM 12/18/22 01/25/23 mL) subcutaneous pen (Lantus Solostar U-100 Insulin) magnesium citrate (Citroma oral 300 ml PO DAILY PRN Constipation 12/18/22 01/25/23 solution) magnesium hydroxide 400 mg/5 mL 30 ml PO HS PRN Constipation 12/18/22 01/25/23 oral suspension (Milk of Magnesia) polyethylene glycol 3350 17 gram 17 g PO DAILY PRN Constipation 12/18/22 01/25/23 oral powder packet tramadol 50 mg tablet 50 mg PO Q6H PRN Pain (Scale Score 12/18/22 01/25/23 4-6) Allergies Allergy/AdvReac Type Severity Reaction Status Date / Time lidocaine Allergy Intermediate HIVES Verified 10/15/22 18:06 nitroglycerin Allergy Intermediate HIVES Verified 10/15/22 18:06 aspirin Allergy Mild Hives Verified 10/15/22 18:06 citalopram Allergy Mild Rash Verified 10/15/22 18:06 escitalopram Allergy Mild Hives Verified 10/15/22 18:06 ibuprofen Allergy Mild Hives Verified 10/15/22 18:06 Penicillins Allergy Mild HIVES PER Verified 10/15/22 18:06 UNCODED ALLERGIES 08/27/12 procaine Allergy Mild Hives Verified 10/15/22 18:06 propoxyphene Allergy Mild Hives Verified 10/15/22 18:06 doxycycline Allergy Unknown Hives Verified 10/15/22 18:06 meloxicam Allergy Unknown HIVES Verified 10/15/22 18:06 Sulfa (Sulfonamide Allergy Unknown HIVES PER Verified 10/15/22 18:06 Antibiotics) UNCODED ALLERGIES 08/27/12 sulfamethoxazole Allergy Unknown Hives Verified 10/15/22 18:06 trimethoprim Allergy Unknown Hives Verified 10/15/22 18:06 amoxicillin Allergy Hives Verified 10/15/22 18:07 codeine Allergy Hives Verified 10/15/22 18:06 iohexol Allergy Hives Verified 10/15/22 18:06 [From contrast - CT, X-RAY] adhesive AdvReac Unknown SILK TAPE= Verified 10/15/22 18:06 HIVES imipenem AdvReac Itching Verified 10/15/22 18:06 Review of Systems Review of Systems: All systems reviewed & are unremarkable except as noted in HPI and below PMFSH Past Medical History Medical History (Updated 04/03/23 @ 02:09 by Mook Bolden MD) Anemia Anxiety Arthritis Asthma Bip
[2023-04-03 01:35] VITALS: BP 133/67; PULSE 70; RESP 22; O2SAT 100
[2023-04-03 02:39] VITALS: BP 156/70; PULSE 71; RESP 22; O2SAT 100
== END 2023-04-03 03:10 ==
PROVIDERS: Emergency Provider Emergency Medicine; PCP Internal Medicine
DX: M54.2 Cervicalgia (principal); J44.9 Chronic obstructive pulmonary disease, unspecified; I12.9 Hypertensive chronic kidney disease with stage 1 through stage 4 chronic kidney disease, or unspecified chronic kidney disease; E11.22 Type 2 diabetes mellitus with diabetic chronic kidney disease; N18.9 Chronic kidney disease, unspecified; E78.5 Hyperlipidemia, unspecified; Z86.718 Personal history of other venous thrombosis and embolism; Z87.891 Personal history of nicotine dependence; W18.30XA Fall on same level, unspecified, initial encounter
CPT/HCPCS: 70450; 72125; 99284; C1751

== ENCOUNTER 2023-04-03 17:48 | Inpatient (IN) | payer OTHER, SELFPAY ==
[2023-04-03] VITALS (13 sets, daily range): BP systolic 63–100; BP diastolic 49–84; PULSE 70–87; RESP 8–70; TEMP 36.4–36.9; O2SAT 94–100
--- NOTE | ~2023-04-03 | US_ITS ---
US renal BI DATE: 04/04/2023 15:58 INDICATION: Acute renal insufficiency. Evaluate for hydronephrosis. TECHNIQUE: Real-time imaging of kidneys COMPARISON: None FINDINGS: Detail is quite limited due to body habitus. Consider CT or MR imaging for more optimal marvin luation of kidney detail and exclusion of possible renal masses. This limited sonographic examination does not reveal evidence of hydronephrosis of either kidney. Urinary bladder is unremarkable. IMPRESSION: Limited examination due to body habitus; no hydronephrosis of the kidneys is noted Reviewed, dictated and finalized at [facility] . Reviewed, dictated and finalized at [facility]. IMPRESSION: Limited examination due to body habitus; no hydronephrosis of the k idneys is noted
--- NOTE | ~2023-04-03 | CT_ITS ---
EXAMINATION: CT brain wo con DATE: 04/03/2023 18:59 INDICATION: Altered mental status post fall TECHNIQUE: Computed tomography (CT) of the head was performed without intravenous contrast. Sagittal and coronal reconstructions were performed. The mA was adjusted according to patient size. Iterative reconstruction technique was employed. The dose-length product was 605.33 mGy-cm. COMPARISON: head CT dated 04/03/2023 at 1:08 AM FINDINGS: No fracture. No acute intracranial hemorrhage, acute infarction or abnormal extra axial fluid collect ion. Ventricles are normal and symmetric. No mass/mass effect. The orbits, paranasal sinuses and mast oid air cells are normal. IMPRESSION: 1. Normal brain. No acute intracranial process. Reviewed, dictated and finalized at [facility].
--- NOTE | ~2023-04-03 | XR_ITS ---
EXAMINATION: XR chest 1V portable DATE: 04/04/2023 00:08 INDICATION: Central line placement TECHNIQUE: frontal view of the chest was obtained. COMPARISON: Chest radiograph dated 12/17/2022 FINDINGS: Right internal jugular central venous catheter with distal tip near the superior cavoatrial junction. No airspace opacities, pulmonary edema, pleural effusion or pneumothorax. Cardiomegaly. Dual lead pa cemaker seen with leads projecting over the expected locations of the right atrium and right ventricl e. Cholecystectomy clips in right upper quadrant. IMPRESSION: 1. Right internal jugular central venous catheter tip near the superior cavoatrial junction. 2. Cardiomegaly. Reviewed, dictated and finalized at [facility]. IMPRESSION: 1. Right internal jugular central venous catheter tip near the superior cavoatr ial junction. 2. Cardiomegaly.
--- NOTE | 2023-04-03 17:54 | ECG_ITS ---
Measurements Intervals [place] Rate: 70 P: 173 MT: 196 QRS: 49 QRSD: 101 T: 35 QT: 354 QTc: 382 Interpretive Statements ELECTRONIC ATRIAL PACEMAKER LOW QRS VOLTAGE IN PRECORDIAL LEADS [QRS DEFLECTION < 1.0 mV IN CHEST LEADS] ABNORMAL RHYTHM ECG COMPARED TO ECG 01/24/2023 17:22:49 NO SIGNIFICANT CHANGES Electronically Signed On 04-04-2023 11:34:36 CDT by Masha Correa MD
--- NOTE | 2023-04-03 18:31 | ED.GENADULT ---
HPI - General Adult General Chief complaint: Recheck/Abnormal Lab/Rx Stated complaint: low BP Time Seen by Provider: 04/03/23 18:16 History of Present Illness HPI narrative: Patient is a 47 year old female with history of CKD, COPD, chronic pain, PE/DVT, HTN, DM, Seizures here with light headedness and hypotension. Patient was seen here last night for a fall. She currently states that she has been light headed. When discussing symptoms with patient she endorses abdominal pain, chest pain, cough, shortness of breath. Denies fever or dysuria. Related Data Home Medications Medication Instructions Recorded Confirmed atorvastatin 20 mg tablet 20 mg PO HS 08/21/19 04/04/23 furosemide 20 mg tablet 40 mg PO BID 01/18/22 04/04/23 albuterol sulfate 90 mcg/actuation 2 puff inhalation Q4H PRN 04/22/22 04/04/23 aerosol inhaler Shortness Of Breath docusate sodium 100 mg capsule 100 mg PO DAILY PRN Constipation 04/22/22 04/04/23 famotidine 20 mg tablet (Pepcid) 20 mg PO DAILY 04/22/22 04/04/23 lisinopril 20 mg tablet 20 mg PO DAILY 04/22/22 04/04/23 loratadine 10 mg tablet 10 mg PO DAILY 04/22/22 04/04/23 methocarbamol 750 mg tablet 750 mg PO Q8H PRN Muscle Pain 04/22/22 04/04/23 metoprolol tartrate 25 mg tablet 12.5 mg PO BID 04/22/22 04/04/23 promethazine 25 mg tablet 25 mg PO Q8H PRN Nausea 08/10/22 04/04/23 apixaban 5 mg tablet (Eliquis) 5 mg PO BID 09/21/22 04/04/23 gabapentin 300 mg capsule 300 mg PO TID 09/21/22 04/04/23 pioglitazone 30 mg tablet (Actos) 15 mg PO DAILY 09/21/22 04/04/23 sitagliptin phosphate 100 mg 100 mg PO DAILY 09/21/22 04/04/23 tablet (Januvia) levetiracetam 500 mg tablet 500 mg PO BID 10/15/22 04/04/23 bisacodyl 10 mg rectal suppository 10 mg RECTAL DAILY PRN Constipation 12/18/22 04/04/23 glucagon 1 mg solution for 1 mg subcut Q1H PRN Hypoglycemia 12/18/22 04/04/23 injection (GlucaGen HypoKit) insulin glargine 100 unit/mL (3 10 unit subcut QPM 12/18/22 04/04/23 mL) subcutaneous pen (Lantus Solostar U-100 Insulin) magnesium citrate (Citroma oral 300 ml PO DAILY PRN Constipation 12/18/22 04/04/23 solution) magnesium hydroxide 400 mg/5 mL 30 ml PO HS PRN Constipation 12/18/22 04/04/23 oral suspension (Milk of Magnesia) polyethylene glycol 3350 17 gram 17 g PO DAILY PRN Constipation 12/18/22 04/04/23 oral powder packet tramadol 50 mg tablet 50 mg PO Q6H PRN Pain (Scale Score 12/18/22 04/04/23 4-6) dextromethorphan 20 mg-quinidine 1 cap PO Q12H 04/04/23 04/04/23 10 mg capsule (Nuedexta) insulin lispro 100 unit/mL 7 unit subcut TIDWM 04/04/23 04/04/23 subcutaneous solution ketoconazole 2 % shampoo 1 applic topical 2XW 04/04/23 04/04/23 magnesium citrate 300 ml PO DAILY PRN Insomnia 04/04/23 04/04/23 pyrithione zinc 1 % shampoo 1 applic topical EVERY OTHER DAY 04/04/23 04/04/23 (Dandruff Shampoo (pyrithione zinc)) silver sulfadiazine 1 % topical 1 applic topical DAILY 04/04/23 04/04/23 cream trazodone 50 mg tablet 50 mg PO HS 04/04/23 04/04/23 Allergies Allergy/AdvReac Type Severity Reaction Status Date / Time lidocaine Allergy Intermediate HIVES Verified 10/15/22 18:06 nitroglycerin Allergy Intermediate HIVES Verified 10/15/22 18:06 aspirin Allergy Mild Hives Verified 10/15/22 18:06 citalopram Allergy Mild Rash Verified 10/15/22 18:06 escitalopram Allergy Mild Hives Verified 10/15/22 18:06 ibuprofen Allergy Mild Hives Verified 10/15/22 18:06 Penicillins Allergy Mild HIVES PER Verified 10/15/22 18:06 UNCODED ALLERGIES 08/27/12 procaine Allergy Mild Hives Verified 10/15/22 18:06 propoxyphene Allergy Mild Hives Verified 10/15/22 18:06 doxycycline Allergy Unknown Hives Verified 10/15/22 18:06 meloxicam Allergy Unknown HIVES Verified 10/15/22 18:06 Sulfa (Sulfonamide Allergy Unknown HIVES PER Verified 10/15/22 18:06 Antibiotics) UNCODED ALLERGIES 08/27/12 sulfamethoxazole Allergy Unknown Hives Verified 10/15/22 18:06 trimethoprim Allergy Unknown Hives Verified 10/15
[2023-04-03 18:51] LABS: Add Urine Microscopic? YES; Appearance Urine Turbid (Clear); Bacteria Urine 1+ /hpf; Bilirubin Urine Negative (Negative); Blood Urine 1+ (Negative); Color Urine Yellow (Yellow); Glucose Urine UA Negative (Negative); Ketones Urine Negative (Negative); Leukocyte Esterase Ur 3+ LEU/UL (Negative); Need Manual Microscopic Reviewed; Nitrate Urine Negative (Negative); Non Pathogenic Casts >20; Protein Urine 1+ mg/dL (Negative); RBC Urine 21-50 /hpf (0-2); Specific Grav Ur 1.017 (1.001-1.035); Squamous Epithelial Cell Urine Occasional /hpf (Few); Urobilinogen Urine 0.2 mg/dL (<2.0); WBC Urine >100 /hpf
[2023-04-03] MEDS: SODIUM CHLORIDE 0.9% IV 1,000 ML 999 ML IV CONT ×3 (19:32→22:41)
[2023-04-03 19:37] LABS: Basophils Percent Auto 0.3 % (0.2-1.2); Eosinophils Absolute Auto 0.2 K/mm3 (0-0.3); Eosinophils Percent Auto 3.6 % (0-4.4); Hematocrit 31.4 % (37.0-47.0); Hemoglobin 9.3 g/dL (12.0-15.0); Immature Granulocyte Absolute 0.03 K/mm3 (0.00-0.031); Immature Granulocyte Percent A 0.4 % (0-0.5); Lymphocytes Absolute Auto 2.09 K/mm3 (0.9-3.2); Lymphocytes Percent Auto 31.1 % (18.3-44.2); Mean Corpuscular HGB Conc 29.6 g/dl (32-36); Mean Corpuscular Volume 94.6 fl (80-100); Mean Platelet Volume 10.7 fl (7.4-10.4); Monocytes Absolute Auto 0.7 K/mm3 (0.1-0.6); Monocytes Percent Auto 10.7 % (2.6-8.5); Neutrophils Absolute Auto 3.6 K/mm3 (1.3-6.7); Neutrophils Percent Auto 53.9 % (45.5-73.1); Platelet Count Result 170 k/mm3 (150-375); Red Blood Count 3.32 M/mm3 (4.2-5.4); Red Cell Distribution Width 14.3 % (11.5-14.5); White Blood Count 6.7 K/mm3 (4.5-10.0)
[2023-04-03 19:54] LABS: Alanine Aminotransferase 25 U/L (6-35); Albumin Level 3.3 g/dL (3.5-5.1); Alkaline Phosphatase 80 U/L (38-126); Anion Gap 6 mmol/L (8-16); Aspartate Amino Transferase 26 U/L (14-36); Bilirubin,Total 0.3 mg/dL (0.2-1.3); Blood Urea Nitrogen 105 mg/dL (7-17); CRP 0.7 mg/dL (<1.0); Carbon Dioxide 17 mmol/L (22-30); Chloride 117 mmol/L (98-107); Estimated Glomerular Filt Rate 24; Glucose 63 mg/dL (65-110); Potassium 6.7 mmol/L (3.4-5.0); Sodium 140 mmol/L (137-145)
[2023-04-03 20:00] LABS: Troponin I < 0.012 ng/mL (0.000-0.034)
[2023-04-03] MEDS: DEXTROSE 50% 25 GM/50 ML SYRINGE IV PUSH ×3 (20:07→22:39)
[2023-04-03] MEDS: INSULIN HUMAN REGULAR (*BKC) 100 UNITS/ML 10 UNITS IV PUSH ×2 (20:11→22:40)
[2023-04-03] MEDS: SODIUM POLYSTYRENE SULFONONATE 15 GM/60 ML BTL 30 GM PO (20:11)
[2023-04-03 20:26] LABS: INR 1.5; Prothrombin Time 18.7 Seconds (11.1-14.7)
--- NOTE | 2023-04-03 21:27 | PC.NURSE ---
Patient's blood pressure is 70/45. Notified Dr. Martinez who verbally ordered 1L of normal saline.
[2023-04-03 22:07] LABS: Anion Gap 4 mmol/L (8-16); Blood Urea Nitrogen 101 mg/dL (7-17); Calcium 8.7 mg/dL (8.4-10.2); Carbon Dioxide 15 mmol/L (22-30); Chloride 118 mmol/L (98-107); Estimated Glomerular Filt Rate 23; Glucose 164 mg/dL (65-110); Potassium 6.5 mmol/L (3.4-5.0); Sodium 137 mmol/L (137-145)
[2023-04-03 22:14] LABS: Troponin I < 0.012 ng/mL (0.000-0.034)
[2023-04-03 23:23] LABS: Anion Gap 7 mmol/L (8-16); Blood Urea Nitrogen 100 mg/dL (7-17); Calcium 8.5 mg/dL (8.4-10.2); Carbon Dioxide 15 mmol/L (22-30); Chloride 118 mmol/L (98-107); Estimated Glomerular Filt Rate 25; Glucose 137 mg/dL (65-110); Potassium 6.4 mmol/L (3.4-5.0); Sodium 140 mmol/L (137-145)
[2023-04-03] MEDS: NOREPINEPHRINE 8 MG/D5W 250 ML 8 MG/250 ML BAG 9.38 MG IV CONT (23:52)
[2023-04-04] VITALS (42 sets, daily range): BP systolic 61–161; BP diastolic 35–110; PULSE 70–132; RESP 10–20; TEMP 35.7–37.7; O2SAT 95–100; BMI 39.9
--- NOTE | 2023-04-04 00:09 | PM.IMHP ---
H&P: HPI History of Present Illness Date/Time: 04/03/23 23:30 Chief Complaint: Unresponsive with low blood pressures. Narrative: This is an unfortunate, chronically ill 47-year-old female with multiple medical problems including insulin-dependent diabetes, hypertension, GERD, seizures, DVT and PE on chronic anticoagulation, bipolar disorder, sleep apnea, diastolic dysfunction, history of noncompliance, and other comorbidities who presented to the emergency department via EMS from [facility] for evaluation after she was found unresponsive with low blood pressures. She is now awake and alert and can provide some history. Some of the following is supplemented via a review of her electronic medical records as well. She was seen in the emergency department last evening for evaluation of neck pain following a ground level fall. Head and cervical spine CTs did not show any acute findings and she was discharged back in stable condition. When she got up this morning felt a bit lightheaded and sometime not long prior to arrival she was found minimally responsive by staff at the longterm. Pulse was reportedly difficult to palpate and blood pressures were soft, as low as 75/56 in the ED. Blood pressures have improved somewhat with 2 L saline bolus in the ED however she is currently requiring 8 mics of norepinephrine to maintain her pressures around 100 systolic. Labs were significant for a stable hemoglobin, increased BUN and creatinine from baseline at 1 1 and 2.30 respectively, sodium 137, potassium 6.5, glucose 164, lactic acid 1.0. Urine showed 3+ leukocyte esterase, greater than 100 wbc's, and 1+ bacteria for which she received a g of ceftriaxone. She received appropriate treatment for her hyperkalemia with repeat BMP pending. Head CT did not show any acute findings. She is being admitted in this setting for further treatment and evaluation. Review of Systems Review of Systems: Twelve systems were reviewed and are negative except for as per HPI. [facility]LY [facility] Past Medical History Medical History Anemia Anxiety Arthritis Asthma Bipolar disorder Chronic anticoagulation For history of DVT and PE. Chronic kidney disease Chronic obstructive pulmonary disease Chronic pain syndrome Deep venous thrombosis Depression Diastolic dysfunction Eczema Epilepsy Gastroesophageal reflux disease Herniated disc History of MRSA infection Hyperlipidemia Hypertension Insulin dependent diabetes mellitus Historically poorly controlled. Obesity Obstructive sleep apnea Non compliant with treatment. Peripheral neuropathy Pulmonary embolism Seizures Suicide attempt T11 vertebral fracture Nondisplaced fracture of the right T11 inferior articulating facet. No surgical intervention required. Surgical History Surgical History History of bilateral knee replacement History of cardiac catheterization History of cardiac pacemaker For paroxysmal ventricular arrhythmia/tachycardia. History of cholecystectomy Family History Family History Mother Heart disease Acute myocardial infarction Uterine cancer COVID-19 Diabetes mellitus Hypertension Kidney disease Father Heart disease Social History Social History Social History: Surrogate medical decision maker: Meño Marquez significant other. Code status: Full code. Smoking packs per day: 1.5 Smoking cigarettes per day: 30.0 Years smoked: 9 Smoking pack-years: 13.50 Smoking status: Former smoker Tobacco type: cigarettes Second hand tobacco smoke exposure: Yes Alcohol intake: never Substance use: never Substance use type: does not use Lack of Transportation: YES Lack of Food: Never True Current Housing: I Have Housing Concerned About Future
--- NOTE | 2023-04-04 00:30 | PC.NURSE ---
EDP Dr. Martinez obtained consent for patient to have central line.
[2023-04-04] MEDS: SODIUM BICARBONATE 8.4% 50 MEQ/50 ML SYRINGE IV PUSH (01:06)
--- NOTE | 2023-04-04 02:24 | ADMGEN ---
This patient, Valerie Nguyen, was admitted to Intensive Care Unit-8. Patient/family oriented to hospital policies and general routines including ID bracelet, bed and alarms, visiting hours, pain management, procedures, bathroom and other care routines, personal items, smoking policy, room service/diet, and visiting hours. Information on how to activate the Rapid Response Team has been discussed. Patient/Family are encouraged to report perceived risks to care and to ask questions if they do not understand what they are told or what they should do.
[2023-04-04 02:45] LABS: Basophils Percent Auto 0.2 % (0.2-1.2); Eosinophils Absolute Auto 0.3 K/mm3 (0-0.3); Eosinophils Percent Auto 2.6 % (0-4.4); Hematocrit 31.8 % (37.0-47.0); Hemoglobin 9.5 g/dL (12.0-15.0); Immature Granulocyte Absolute 0.09 K/mm3 (0.00-0.031); Immature Granulocyte Percent A 0.9 % (0-0.5); Lymphocytes Percent Auto 19.5 % (18.3-44.2); Mean Corpuscular HGB Conc 29.9 g/dl (32-36); Mean Corpuscular Hemoglobin 27.8 pg (26-34); Mean Platelet Volume 10.7 fl (7.4-10.4); Monocytes Absolute Auto 0.7 K/mm3 (0.1-0.6); Monocytes Percent Auto 7.1 % (2.6-8.5); Neutrophils Absolute Auto 6.8 K/mm3 (1.3-6.7); Neutrophils Percent Auto 69.7 % (45.5-73.1); Platelet Count Result 201 k/mm3 (150-375); Red Blood Count 3.42 M/mm3 (4.2-5.4); Red Cell Distribution Width 14.4 % (11.5-14.5); White Blood Count 9.7 K/mm3 (4.5-10.0)
[2023-04-04 02:57] LABS: Alanine Aminotransferase 25 U/L (6-35); Albumin Level 3.2 g/dL (3.5-5.1); Alkaline Phosphatase 96 U/L (38-126); Anion Gap 4 mmol/L (8-16); Aspartate Amino Transferase 29 U/L (14-36); Bilirubin,Total 0.4 mg/dL (0.2-1.3); Blood Urea Nitrogen 93 mg/dL (7-17); Calcium 8.4 mg/dL (8.4-10.2); Carbon Dioxide 18 mmol/L (22-30); Chloride 119 mmol/L (98-107); Estimated Glomerular Filt Rate 27; Glucose 188 mg/dL (65-110); Magnesium 1.9 mg/dL (1.6-2.3); Phosphorus 4.1 mg/dL (2.5-4.5); Potassium 5.9 mmol/L (3.4-5.0); Sodium 141 mmol/L (137-145)
[2023-04-04] MEDS: LACTATED RINGERS 1,000 ML 100 ML IV CONT ×3 (04:06→23:39)
[2023-04-04] MEDS: AZTREONAM 2 GM in SODIUM CHLORIDE 0.9% IV 100 ML 200 ML IVPB ×3 (04:06→20:21)
[2023-04-04] MEDS: TOLNAFTATE 1% POWDER 45 GM BTL 1 APPLIC TOPICAL ×2 (04:07→20:24)
[2023-04-04] MEDS: VANCOMYCIN 1,250 MG/NS 250 ML 1,250 MG/250 ML BAG 166.67 MG IVPB (05:16)
[2023-04-04] MEDS: NOREPINEPHRINE 8 MG/D5W 250 ML 8 MG/250 ML BAG 7.5 MG IV CONT (05:44)
[2023-04-04] MEDS: VANCOMYCIN 1,000 MG/NS 250 ML 1,000 MG/250 ML BAG 250 MG IVPB (06:55)
[2023-04-04] MEDS: ALBUTEROL SULFATE NEB 2.5 MG/3 ML INH 10 MG INHALATION (09:32)
[2023-04-04] MEDS: SODIUM BICARBONATE 8.4% 50 MEQ/50 ML SYRINGE 100 MEQ IV PUSH (09:33)
[2023-04-04] MEDS: SODIUM ZIRCONIUM CYCLOSILICATE 10 GM POWD.PACK PO ×2 (09:33→17:56)
[2023-04-04] MEDS: INSULIN HUMAN REGULAR (*BKC) 100 UNITS/ML 10 UNITS IV PUSH (09:34)
[2023-04-04] MEDS: DEXTROSE 50% 25 GM/50 ML SYRINGE IV PUSH (09:34)
[2023-04-04 11:08] LABS: IFOB Positive Control Positive; Immunochemical Fecal Occult Bl Negative (N)
--- NOTE | 2023-04-04 11:36 | WPDCNINT ---
Assessment and Plan Assessment and plan (1) Septic shock: Code(s): A41.9 - Sepsis, unspecified organism; R65.21 - Severe sepsis with septic shock Status: Acute Assessment and Plan: Patient presented with hypotension, altered mental status. In the ER she was found to be hypotensive with systolics in the 70s could along with acute kidney injury, hyperkalemia and UA reflective of severe UTI. Patient does have a indwelling catheter which was switched in the ED on admission -patient was adequately fluid-resuscitated -started on Levophed, maintain MAP > 65 mmHg at all times for adequate end organ perfusion -patient has been started on aztreonam and vancomycin (04/03) seen she has multiple allergies and has history of multiple UTIs with Enterococcus and multidrug resistant Proteus mirabilis -continue maintenance IV fluids 04/03: Blood cultures pending 04/03: Urine cultures pending (2) Acute kidney injury: Code(s): N17.9 - Acute kidney failure, unspecified Status: Acute Assessment and Plan: Acute kidney injury likely related to UTI, hypotension, shock -will obtain renal ultrasound to evaluate for hydronephrosis -will also check urine lytes, CK levels and urine eosinophils -nephrology has been consulted -continue maintenance IV fluids -monitor urine, renal function electrolytes (3) Hyperkalemia: Code(s): E87.5 - Hyperkalemia Status: Acute Assessment and Plan: Hyperkalemia on admission which was treated -this morning patient remained hyperkalemic, patient treated with insulin, D50, bicarb, albuterol, Lokelma -will recheck potassium this afternoon (4) UTI (urinary tract infection): Code(s): N39.0 - Urinary tract infection, site not specified Status: Acute Assessment and Plan: Patient with indwelling catheter, presented with hypotension, UA revealed severe UTI -antibiotics as above, urine cultures are pending (5) Insulin dependent diabetes mellitus: Status: Acute Assessment and Plan: Continue sliding scale insulin Accu-Cheks (6) Epilepsy: Code(s): G40.909 - Epilepsy, unspecified, not intractable, without status epilepticus Status: Acute Assessment and Plan: Patient has a history of epilepsy -will restart Keppra which is her home medication Plan DVT prophylaxis: Eliquis Stress ulcer prophylaxis: Famotidine Nutrition: Diabetic diet Code Status: Full code Critical Care Time Spent: 49 minutes Due to a high probability of clinically significant, life threatening deterioration, the patient required my highest level of preparedness to intervene emergently and I personally spent this critical care time directly and personally managing the patient. This critical care time included obtaining a history; examining the patient; pulse oximetry; ordering and review of studies; arranging urgent treatment with development of a management plan; evaluation of patient's response to treatment; frequent reassessment; and discussions with other providers. It was exclusive of separately billable procedures and treating other patients and teaching time. Please see Assessment and Plan section and the rest of the note for further information on patient assessment and treatment This dictation may have been done utilizing a voice recognition system. Attempts have been made to correct errors. However, there may be uncorrected grammatical, spelling, and recognitions errors present. Tourist Information Assistant Consult Note Consult date: 04/04/23 Reason for consult: Altered mental status, hypotension, shock, UTI HPI: Valerie Nguyen is a 47 year old female with past medical history of insulin-dependent diabetes, essential hypertension, GERD, anemia, seizures, DVT, PE on chronic anticoagulation, bipolar disorder, sleep apnea, diastolic dysfunction, history of noncompliance, chronic kidney disease, COPD, obstructive sleep apnea presented from a assisted on 04/03/2023 after
[2023-04-04 12:07] LABS: Anion Gap 5 mmol/L (8-16); Blood Urea Nitrogen 82 mg/dL (7-17); Carbon Dioxide 21 mmol/L (22-30); Chloride 120 mmol/L (98-107); Estimated Glomerular Filt Rate 35; Glucose 192 mg/dL (65-110); Potassium 4.6 mmol/L (3.4-5.0); Sodium 146 mmol/L (137-145)
[2023-04-04 12:15] LABS: Creatine Kinase 209 U/L (30-135)
--- NOTE | 2023-04-04 13:05 | PM.CNNEP ---
Assessment and Plan Assessment and plan (1) Acute kidney injury: Code(s): N17.9 - Acute kidney failure, unspecified Status: Acute Assessment and Plan: baseline creatinine normal from review of records, whenever she is hospitalized, she seems quite susceptible to JAYESH/ARF however, by the time of discharge of each of these hospitalizations, her renal function has usually improved to baseline improving by trend of labs on admission multifactorial etiology: hemodynamic instability/shock sepsis/infection (UTI) prerenal factors diuretic use and ORAL-I use prior to admission follow up on urine studies, CPK, and renal ultrasound continue IVFs as tolerated K+ better s/p medical management follow repeat labs and UOP (2) Hyperkalemia: Code(s): E87.5 - Hyperkalemia Status: Acute Assessment and Plan: as noted on admission and this AM s/p medical management follow trend with serial labs (3) Septic shock: Code(s): A41.9 - Sepsis, unspecified organism; R65.21 - Severe sepsis with septic shock Status: Acute Assessment and Plan: as noted by presentation with hypotension (70s systolic) along with AMS s/p aggressive IVF resuscitation and on maintenance IVFs eventually required initiation of vasopressor therapy to maintain MAP suspected source = UTI (see #4) follow culture data continue broad spectrum antibiotics (4) UTI (urinary tract infection): Code(s): N39.0 - Urinary tract infection, site not specified Status: Acute Assessment and Plan: as indicative by admission UA complicated by indwelling garner catheter this has been exchanged follow culture data on antibiotics (5) Insulin dependent diabetes mellitus: Status: Chronic Assessment and Plan: follow accu-checks glycemic control per fuel cell technician/hospitalists I will continue to follow the patient with you while she remains hospitalized and make further recommendations as needed. Thank you for allowing me to participate in the care this patient. History of Present Illness Reason for Consult Consult date: 04/04/23 Reason for consult: acute renal failure Chief Complaint Chief complaint: hyperkalemia, jayesh, uti History of Present Illness Narrative: Most of the information that I have obtained is from review of the electronic medical record as well as discussion with the physician/ nurses involved in the patient's care as is difficult for the patient to give a complete and concise history of the events that led to her presentation and subsequent admission to the hospital. The patient is a 47-year-old female with multiple medical problems as outlined below presented to [facility] Emergency room from her nursing facility after being found unresponsive and hypotensive. The patient was seen in the emergency room on the day prior to admission with complaints of neck pain following a ground level fall. Head and CT imaging did not show any acute findings she was subsequent discharged back to her nursing facility in stable condition. However, on the morning of admission, she woke up somewhat lightheaded. Not long after that, the nursing staff found the patient minimally responsive and with a thready pulse. Her blood pressure was reportedly somewhat soft although I do not have specific details of what the reading was. Nursing staff called EMS and she was subsequently transported to the emergency room for further assessment. Workup and evaluation emergency room found the patient to be in these hypotensive in the 70 systolic range but this did improve somewhat with aggressive IV fluid resuscitation but eventually she did require central line placement and initiation of vasopressor therapy to maintain her mean arterial pressure. Subsequent labs were significant for normal white blood cell count and stable H&H but her chemistry showed a elevated BUN and creatinine abov
--- NOTE | 2023-04-04 13:05 | P.CONNP_ITS ---
Assessment and Plan Assessment and plan (1) Acute kidney injury: Code(s): N17.9 - Acute kidney failure, unspecified Status: Acute Assessment and Plan: * baseline creatinine normal * from review of records, whenever she is hospitalized, she seems quite susceptible to JAYESH/ARF * however, by the time of discharge of each of these hospitalizations, her renal function has usually improved to baseline * improving by trend of labs on admission * multifactorial etiology: * hemodynamic instability/shock * sepsis/infection (UTI) * prerenal factors * diuretic use and ORAL-I use prior to admission * follow up on urine studies, CPK, and renal ultrasound * continue IVFs as tolerated * K+ better s/p medical management * follow repeat labs and UOP (2) Hyperkalemia: Code(s): E87.5 - Hyperkalemia Status: Acute Assessment and Plan: * as noted on admission and this AM * s/p medical management * follow trend with serial labs (3) Septic shock: Code(s): A41.9 - Sepsis, unspecified organism; R65.21 - Severe sepsis with septic shock Status: Acute Assessment and Plan: * as noted by presentation with hypotension (70s systolic) along with AMS * s/p aggressive IVF resuscitation and on maintenance IVFs * eventually required initiation of vasopressor therapy to maintain MAP * suspected source = UTI (see #4) * follow culture data * continue broad spectrum antibiotics (4) UTI (urinary tract infection): Code(s): N39.0 - Urinary tract infection, site not specified Status: Acute Assessment and Plan: * as indicative by admission UA * complicated by indwelling garner catheter * this has been exchanged * follow culture data * on antibiotics (5) Insulin dependent diabetes mellitus: Status: Chronic Assessment and Plan: * follow accu-checks * glycemic control per aircraft engine technician/hospitalists I will continue to follow the patient with you while she remains hospitalized and make further recommendations as needed. Thank you for allowing me to participate in the care this patient. History of Present Illness Reason for Consult Consult date: 04/04/23 Reason for consult: acute renal failure Chief Complaint Chief complaint: hyperkalemia, jayesh, uti History of Present Illness Narrative: Most of the information that I have obtained is from review of the electronic medical record as well as discussion with the physician/ nurses involved in the patient's care as is difficult for the patient to give a complete and concise history of the events that led to her presentation and subsequent admission to the hospital. The patient is a 47-year-old female with multiple medical problems as outlined below presented to [facility] Emergency room from her nursing facility after being found unresponsive and hypotensive. The patient was seen in the emergency room on the day prior to admission with complaints of neck pain following a ground level fall. Head and CT imaging did not show any acute findings she was subsequent discharged back to her nursing facility in stable condition. However, on the morning of admission, she woke up somewhat lightheaded. Not long after that, the nursing staff found the patient minimally responsive and with a thready pulse. Her blood pressure was reportedly somewhat soft although I do not have specific details of what the deyvi ding was. Nursing staff called EMS and she was subsequently transported to the emergency room for further assessment. Workup and evaluation emergenc
[2023-04-04] MEDS: levETIRAcetam 500 MG TABLET PO ×2 (13:47→17:56)
[2023-04-04] MEDS: GABAPENTIN 300 MG CAPSULE PO ×2 (13:47→17:56)
[2023-04-04] MEDS: CENTRAL LINE FLUSH 10 ML IV PUSH ×3 (13:49→20:24)
[2023-04-04 14:49] LABS: Potassium Urine Random 15.5 meq/L; Sodium Urine Random 34 meq/L
[2023-04-04 14:50] LABS: Creatinine Urine 45.5 mg/dL
[2023-04-04 15:12] LABS: Eosinophil Urine Rare % (None Seen)
[2023-04-04 15:13] LABS: Urine Eos QC 2nd Tech Confirmed
[2023-04-04 17:49] LABS: Glucose Point of Care 248 mg/dl (65-105)
[2023-04-04] MEDS: INSULIN ASPART (*BKC) 100 UNITS/ML SUB-Q (17:56)
[2023-04-04] MEDS: ATORVASTATIN 20 MG TABLET PO (20:22)
[2023-04-04] MEDS: APIXABAN 5 MG TABLET PO (20:22)
[2023-04-04 20:54] LABS: Glucose Point of Care 237 mg/dl (65-105)
[2023-04-04] MEDS: traZODone HCL 25 MG TABLET PO (21:16)
[2023-04-05] VITALS (17 sets, daily range): BP systolic 86–155; BP diastolic 51–93; PULSE 72–97; RESP 9–19; TEMP 37.1–37.7; O2SAT 95–100
[2023-04-05] MEDS: AZTREONAM 2 GM in SODIUM CHLORIDE 0.9% IV 100 ML 200 ML IVPB ×3 (03:49→20:04)
[2023-04-05] MEDS: CENTRAL LINE FLUSH 10 ML IV PUSH ×3 (03:50→20:04)
[2023-04-05 05:10] LABS: Estimated Glomerular Filt Rate 53
[2023-04-05 07:08] LABS: Alanine Aminotransferase 21 U/L (6-35); Albumin Level 2.8 g/dL (3.5-5.1); Alkaline Phosphatase 76 U/L (38-126); Anion Gap 4 mmol/L (8-16); Aspartate Amino Transferase 22 U/L (14-36); Bilirubin,Total 0.2 mg/dL (0.2-1.3); Blood Urea Nitrogen 61 mg/dL (7-17); Calcium 8.1 mg/dL (8.4-10.2); Carbon Dioxide 23 mmol/L (22-30); Chloride 117 mmol/L (98-107); Estimated Glomerular Filt Rate 53; Glucose 166 mg/dL (65-110); Magnesium 1.8 mg/dL (1.6-2.3); Phosphorus 2.7 mg/dL (2.5-4.5); Potassium 4.4 mmol/L (3.4-5.0); Sodium 144 mmol/L (137-145)
[2023-04-05 08:12] LABS: Glucose Point of Care 165 mg/dl (65-105)
--- NOTE | 2023-04-05 08:25 | WPDINTPN ---
Progress Note: A&P Assessment and Plan (1) Septic shock: Code(s): A41.9 - Sepsis, unspecified organism; R65.21 - Severe sepsis with septic shock Status: Acute Assessment and Plan: Patient presented with hypotension, altered mental status. In the ER she was found to be hypotensive with systolics in the 70s could along with acute kidney injury, hyperkalemia and UA reflective of severe UTI. Patient does have a indwelling catheter which was switched in the ED on admission -patient was adequately fluid-resuscitated -started on Levophed, maintain MAP > 65 mmHg at all times for adequate end organ perfusion -patient has been started on aztreonam and vancomycin (04/03) seen she has multiple allergies and has history of multiple UTIs with Enterococcus and multidrug resistant Proteus mirabilis -continue maintenance IV fluids 04/03: Blood cultures negatibe x2 04/03: Urine cultures mixed genital krishna isolated (2) Acute kidney injury: Code(s): N17.9 - Acute kidney failure, unspecified Status: Acute Assessment and Plan: Acute kidney injury likely related to UTI, hypotension, shock -admission was 2.20 -04/03/2023: Renal ultrasound : Limited examination due to body habitus; no hydronephrosis of the kidneys is noted -CK levels mildly elevated, rare urine eosinophils -appreciate Nephrology evaluation and recommendations -will decrease maintenance IV fluids -monitor urine, renal function electrolytes (3) Hyperkalemia: Code(s): E87.5 - Hyperkalemia Status: Acute Assessment and Plan: Hyperkalemia on admission which was treated -potassium levels have normalized -continue to monitor (4) UTI (urinary tract infection): Code(s): N39.0 - Urinary tract infection, site not specified Status: Acute Assessment and Plan: Patient with indwelling catheter, presented with hypotension, UA revealed severe UTI -antibiotics as above, urine cultures negative (5) Insulin dependent diabetes mellitus: Status: Chronic Assessment and Plan: Continue sliding scale insulin Accu-Cheks (6) Epilepsy: Code(s): G40.909 - Epilepsy, unspecified, not intractable, without status epilepticus Status: Acute Assessment and Plan: Patient has a history of epilepsy -continue Keppra which is a home medication Plan DVT prophylaxis: Eliquis Stress ulcer prophylaxis: Famotidine Nutrition: Diabetic diet Code Status: Full code Critical Care Time Spent: 32 minutes D/w Dr. Gaytan, pt can transfer out of the ICU Due to a high probability of clinically significant, life threatening deterioration, the patient required my highest level of preparedness to intervene emergently and I personally spent this critical care time directly and personally managing the patient. This critical care time included obtaining a history; examining the patient; pulse oximetry; ordering and review of studies; arranging urgent treatment with development of a management plan; evaluation of patient's response to treatment; frequent reassessment; and discussions with other providers. It was exclusive of separately billable procedures and treating other patients and teaching time. Please see Assessment and Plan section and the rest of the note for further information on patient assessment and treatment This dictation may have been done utilizing a voice recognition system. Attempts have been made to correct errors. However, there may be uncorrected grammatical, spelling, and recognitions errors present. Subjective Date/time seen: 04/05/23 08:25 Interval history: Reason for consult: Altered mental status, hypotension, shock, UTI Patient seen and examined this morning, is awake, alert, answers to questions. Denies any chest pain, shortness of breath, abdominal pain, nausea vomiting at this time. States she feels better. She is off Levophed, urine output has been adequate and hemodynamically stable. Afebr
[2023-04-05 08:27] LABS: Basophils Percent Auto 0.6 % (0.2-1.2); Eosinophils Absolute Auto 0.2 K/mm3 (0-0.3); Eosinophils Percent Auto 4.3 % (0-4.4); Hematocrit 25.8 % (37.0-47.0); Hemoglobin 7.7 g/dL (12.0-15.0); Immature Granulocyte Absolute 0.01 K/mm3 (0.00-0.031); Immature Granulocyte Percent A 0.2 % (0-0.5); Lymphocytes Absolute Auto 1.22 K/mm3 (0.9-3.2); Lymphocytes Percent Auto 26.1 % (18.3-44.2); Mean Corpuscular HGB Conc 29.8 g/dl (32-36); Mean Corpuscular Hemoglobin 27.6 pg (26-34); Mean Corpuscular Volume 92.5 fl (80-100); Mean Platelet Volume 10.1 fl (7.4-10.4); Monocytes Absolute Auto 0.4 K/mm3 (0.1-0.6); Monocytes Percent Auto 8.1 % (2.6-8.5); Neutrophils Absolute Auto 2.8 K/mm3 (1.3-6.7); Neutrophils Percent Auto 60.7 % (45.5-73.1); Platelet Count Result 148 k/mm3 (150-375); Red Blood Count 2.79 M/mm3 (4.2-5.4); Red Cell Distribution Width 14.3 % (11.5-14.5); White Blood Count 4.7 K/mm3 (4.5-10.0)
[2023-04-05 08:37] LABS: Alanine Aminotransferase 22 U/L (6-35); Albumin Level 2.9 g/dL (3.5-5.1); Alkaline Phosphatase 83 U/L (38-126); Anion Gap 3 mmol/L (8-16); Aspartate Amino Transferase 23 U/L (14-36); Bilirubin,Total 0.2 mg/dL (0.2-1.3); Blood Urea Nitrogen 58 mg/dL (7-17); Calcium 8.3 mg/dL (8.4-10.2); Carbon Dioxide 25 mmol/L (22-30); Chloride 118 mmol/L (98-107); Estimated Glomerular Filt Rate > 60; Glucose 153 mg/dL (65-110); Potassium 4.4 mmol/L (3.4-5.0); Sodium 146 mmol/L (137-145)
--- NOTE | 2023-04-05 08:38 | PM.IMPN ---
Progress Note: A&P Assessment and Plan (1) Septic shock: Code(s): A41.9 - Sepsis, unspecified organism; R65.21 - Severe sepsis with septic shock Status: Acute Assessment and Plan: Patient presented with hypotension, altered mental status; she became hypothermic. Her BP was as low as 63/49. She was found to have severe sepsis with acute kidney injury, hyperkalemia. Source probably UTI with UA reflective of severe UTI. Patient does have a indwelling Jenkins catheter which was changed out in the ED on admission. 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 -Eating normally. Continue maintenance IV fluids for now -Continue IV abx -follow-up on BCx results Check TSH and cortisol (2) Acute kidney injury: Code(s): N17.9 - Acute kidney failure, unspecified Status: Acute Assessment and Plan: Acute kidney injury likely related to UTI, hypotension, shock, meds (ORAL inhibitor, Lasix) baseline Cr unclear but probably normal. Cr 2.3 here Renal ultrasound showing no hydornephrosis but limited exam Nephrology was consulted and appreciate their input Cr better at 0.9 -continue maintenance IV fluids -monitor urine output, renal function and electrolytes (3) Hyperkalemia: Code(s): E87.5 - Hyperkalemia Status: Acute Assessment and Plan: Hyperkalemia at 6.7 on admission which was treated appropriately Related to sepsis, metabolic acidosis, renal failure, ORAL Inhibitor Potassium has trended down as expected and now normal Follow (4) UTI (urinary tract infection): Code(s): N39.0 - Urinary tract infection, site not specified Status: Acute Assessment and Plan: Patient with chronic indwelling Jenkins catheter Patient presented with hypotension and UA concerning for severe UTI UCx negative. -antibiotics as above (5) Insulin dependent diabetes mellitus: Status: Chronic Assessment and Plan: A1c 7.0 in January. The patient's blood glucose was reviewed on 04/05 Glucose remains well controlled. Continue AccuCheks covering with sliding scale. Hypoglycemia protocol available as needed. Continue current medications. (6) Epilepsy: Code(s): G40.909 - Epilepsy, unspecified, not intractable, without status epilepticus Status: Acute Assessment and Plan: Patient has a history of epilepsy Keppra restarted (7) Anemia: Code(s): D64.9 - Anemia, unspecified Status: Acute Assessment and Plan: Patient with chronic anemia. Hgb was in the 9 range on admission and probably at her baseline. Stool guaiac negative. B12/folate normal in December She is known to be iron deficient and on oral iron chronically. Hgb dropped to 7.7 felt related to IV fluids and remobilization of fluids. Follow Plan DVT prophylaxis: Eliquis Stress ulcer prophylaxis: Famotidine Nutrition: Diabetic diet Code Status: Full code Disposition: [facility]. Start PT/OT to have her out of bed Discussed with garbage depot worker Subjective Date/time seen: 04/05/23 08:38 Interval history: 47yo female with DM, HTN, seizures, DVT/PE on chronic anticoagulation, bipolar disorder, EAMON and history of noncompliance brought in from [facility] for evaluation after being found unresponsive with low blood pressures.? Assuming care. Chart reviewed. Patient is alert but confused so unable to provide accurate hx. Patient off Levophed since yesterday. Review of Systems Review of Systems: ROS unobtainable: Yes unobtainable due to mental status Exam Narrative: Tm 100.0 98.7 130/67 86 17 97% ra Gen - NARD lying semi-recumbent in bed Neck - right IJ TLC in place Ches
[2023-04-05 08:44] LABS: Hypochromasia 2+ (NORMAL); Platelet Estimate Adequate (Adequate)
[2023-04-05 08:47] LABS: Anisocytosis 1+ (NORMAL); Microcytosis 1+ (NORMAL); Schistocytes None Seen (NORMAL)
[2023-04-05] MEDS: VANCOMYCIN 1,250 MG/NS 250 ML 1,250 MG/250 ML BAG 166.67 MG IVPB (09:00)
[2023-04-05] MEDS: APIXABAN 5 MG TABLET PO ×2 (09:40→20:04)
[2023-04-05] MEDS: TOLNAFTATE 1% POWDER 45 GM BTL 1 APPLIC TOPICAL ×3 (09:40→20:04)
[2023-04-05] MEDS: levETIRAcetam 500 MG TABLET PO ×2 (09:40→16:54)
[2023-04-05] MEDS: FAMOTIDINE 20 MG TABLET PO (09:40)
[2023-04-05] MEDS: GABAPENTIN 300 MG CAPSULE PO ×3 (09:40→16:54)
[2023-04-05] MEDS: LACTATED RINGERS 1,000 ML 75 ML IV CONT ×2 (10:28→22:54)
--- NOTE | 2023-04-05 10:34 | PC.NURSE ---
At 0800 this RN went to assess patient. Patient had blanket over her head. This RN tapped the patient and awoke her to start morning assessment. After removing blankets from head it was noted that patients central line had been messed with. The dressing was completely peeled back from central line insertion site and chlorhexidine pad was found in patients hair. When questioned about the central line, Patient admitted to picking at her dressing and line . Patient was educated on safety and need for cleanliness around the line. MD was updated and made aware. Central line was redressed.
--- NOTE | 2023-04-05 11:32 | PCOTNOTE ---
Attempted occupational therapy evaluation. Pt refused to participate this date and requested to return tomorrow. Following.
--- NOTE | 2023-04-05 11:32 | PCPTNOTE ---
Attempted to see for physical therapy evaluation, pt refused to participate at this time. RN notified. Will continue to follow.
--- NOTE | 2023-04-05 11:34 | PM.PNNEP ---
Progress Note: A&P Assessment and Plan (1) Acute kidney injury: Code(s): N17.9 - Acute kidney failure, unspecified Status: Acute Assessment and Plan: resolved baseline creatinine normal from review of records, whenever she is hospitalized, she seems quite susceptible to JAYESH/ARF however, by the time of discharge of each of these hospitalizations, her renal function has usually improved to baseline multifactorial etiology: hemodynamic instability/shock sepsis/infection (UTI) prerenal factors diuretic use and ORAL-I use prior to admission evaluation to date: renal ultrasound without obstruction (limited) urine electrolytes slightly prerenal urine eosiniphils rare -- likely secondary to infection CPK mildly elevated (but not enough to affect kidney function) continue IVFs - wean off as tolerated follow repeat labs and UOP (2) Hyperkalemia: Code(s): E87.5 - Hyperkalemia Status: Acute Assessment and Plan: as noted on admission and this AM s/p medical management follow trend with serial labs (3) Septic shock: Code(s): A41.9 - Sepsis, unspecified organism; R65.21 - Severe sepsis with septic shock Status: Acute Assessment and Plan: resolving as noted by presentation with hypotension (70s systolic) along with AMS s/p aggressive IVF resuscitation and on maintenance IVFs eventually required initiation of vasopressor therapy to maintain MAP -- off vasopressor support suspected source = UTI (see #4) follow culture data continue broad spectrum antibiotics (4) UTI (urinary tract infection): Code(s): N39.0 - Urinary tract infection, site not specified Status: Acute Assessment and Plan: as indicative by admission UA complicated by indwelling garner catheter this has been exchanged follow culture data on antibiotics (5) Insulin dependent diabetes mellitus: Status: Chronic Assessment and Plan: follow accu-checks glycemic control per blueprint duplicator/hospitalists Not much else to add -- will continue to follow from a distance. Subjective Date/time seen: 04/05/23 11:34 Interval history: Follow-up for acute kidney injury/acute renal failure. Since last seen, she has been weaned off vasopressor support with stable hemodynamics; mentation appears to have improved as well (A & O x 2; did not know location); overall, she states that she feels better; renal function has improved close to baseline in association with adequate urine output as well; no other issues/events overnight or earlier this AM. Exam Narrative: General: WD/WN female in NAD Heart: normal S1 and S2; no rub Lungs: clear anteriorly with a few crackles at bases Abdomen: soft, nontender, nondistended, positive bowel sounds Extremities: no cyanosis or clubbing; no edema Skin: warm and dry Objective Data Vital Signs Vital Signs: Vital Signs Temp Pulse Resp BP Pulse Ox O2 Del Method 04/05/23 10:00 85 04/05/23 08:00 81 04/05/23 10:00 79 10 L 131/79 97 04/05/23 08:00 98.7 F 86 17 130/67 97 04/05/23 06:00 76 04/05/23 06:00 98.9 F 76 12 124/68 95 04/05/23 04:30 137/74 04/05/23 04:00 85 04/05/23 04:00 99.3 F 85 14 113/89 99 04/05/23 04:00 85 14 99 Room Air 04/05/23 03:15 88 145/74 H 04/05/23 02:30 115/65 04/05/23 02:30 77 115/65 04/05/23 02:00 99.4 F 73 14 86/51 L 98 04/05/23 02:00 73 04/05/23 02:00 73 86/51 L 04/05/23 00:15 89 138/78 04/05/23 00:00 94 04/05/23 00:00 94 13 100 Room Air 04/05/23 00:00 100 F H 94 13 122/59 L 100 04/04/23 23:30 93 134/75 04/04/23 22:15 84 124/64 04/04/23 22:00 84 04/04/23 22:00 84 12 117/63 100 04/04/23 21:30 83/45 L 04/04/23 21:30 80 83/45 L 04/04/23 21:00 97/54 L 04/04/23 20:00 87 08/2
--- NOTE | 2023-04-05 11:34 | P.PNNP_ITS ---
Progress Note: A&P Assessment and Plan (1) Acute kidney injury: Code(s): N17.9 - Acute kidney failure, unspecified Status: Acute Assessment and Plan: * resolved * baseline creatinine normal * from review of records, whenever she is hospitalized, she seems quite susceptible to JAYESH/ARF * however, by the time of discharge of each of these hospitalizations, her renal function has usually improved to baseline * multifactorial etiology: * hemodynamic instability/shock * sepsis/infection (UTI) * prerenal factors * diuretic use and ORAL-I use prior to admission * evaluation to date: * renal ultrasound without obstruction (limited) * urine electrolytes slightly prerenal * urine eosiniphils rare -- likely secondary to infection * CPK mildly elevated (but not enough to affect kidney function) * continue IVFs - wean off as tolerated * follow repeat labs and UOP (2) Hyperkalemia: Code(s): E87.5 - Hyperkalemia Status: Acute Assessment and Plan: * as noted on admission and this AM * s/p medical management * follow trend with serial labs (3) Septic shock: Code(s): A41.9 - Sepsis, unspecified organism; R65.21 - Severe sepsis with septic shock Status: Acute Assessment and Plan: * resolving * as noted by presentation with hypotension (70s systolic) along with AMS * s/p aggressive IVF resuscitation and on maintenance IVFs * eventually required initiation of vasopressor therapy to maintain MAP -- off vasopressor support * suspected source = UTI (see #4) * follow culture data * continue broad spectrum antibiotics (4) UTI (urinary tract infection): Code(s): N39.0 - Urinary tract infection, site not specified Status: Acute Assessment and Plan: * as indicative by admission UA * complicated by indwelling garner catheter * this has been exchanged * follow culture data * on antibiotics (5) Insulin dependent diabetes mellitus: Status: Chronic Assessment and Plan: * follow accu-checks * glycemic control per network liaison/hospitalists Not much else to add -- will continue to follow from a distance. Subjective Date/time seen: 04/05/23 11:34 Interval history: Follow-up for acute kidney injury/acute renal failure. Since last seen, she has been weaned off vasopressor support with stable hemodynamics; mentation appears to have improved as well (A & O x 2; did not know location); overall, she states that she feels better; renal function has improved close to baseline in association with adequate urine output as well; no other issues/events overnight or earlier this AM. Exam Narrative: General: WD/WN female in NAD Heart: normal S1 and S2; no rub Lungs: clear anteriorly with a few crackles at bases Abdomen: soft, nontender, nondistended, positive bowel sounds Extremities: no cyanosis or clubbing; no edema Skin: warm and dry Objective Data Vital Signs Vital Signs: Vital Signs Temp Pulse Resp BP Pulse Ox O2 Del Method 04/05/23 10:00 85 04/05/23 08:00 81 04/05/23 10:00 79 10 L 131/79 97 04/05/23 08:00 98.7 F 86 17 130/67 97 04/05/23 06:00 76 04/05/23 06:00 98.9 F 76 12 124/68 95 04/05/23 04:30 137/74 04/05/23 04:00 85 04/05/23 04:00 99.3 F 85 14 113
[2023-04-05 11:57] LABS: Glucose Point of Care 168 mg/dl (65-105)
[2023-04-05] MEDS: INSULIN ASPART (*BKC) 100 UNITS/ML SUB-Q (16:56)
[2023-04-05 17:40] LABS: Glucose Point of Care 204 mg/dl (65-105)
[2023-04-05] MEDS: ATORVASTATIN 20 MG TABLET PO (20:04)
[2023-04-05 21:54] LABS: Glucose Point of Care 208 mg/dl (65-105)
[2023-04-06] VITALS (18 sets, daily range): BP systolic 113–166; BP diastolic 65–85; PULSE 70–86; RESP 10–17; TEMP 37.1–37.6; O2SAT 96–99; BMI 40.4
[2023-04-06] MEDS: AZTREONAM 2 GM in SODIUM CHLORIDE 0.9% IV 100 ML 200 ML IVPB ×3 (03:35→20:28)
[2023-04-06] MEDS: CENTRAL LINE FLUSH 10 ML IV PUSH ×3 (03:37→21:32)
[2023-04-06] MEDS: VANCOMYCIN 1,250 MG/NS 250 ML 1,250 MG/250 ML BAG 166.67 MG IVPB (03:37)
[2023-04-06 05:01] LABS: Basophils Percent Auto 0.6 % (0.2-1.2); Eosinophils Absolute Auto 0.3 K/mm3 (0-0.3); Eosinophils Percent Auto 5.6 % (0-4.4); Hematocrit 25.3 % (37.0-47.0); Immature Granulocyte Absolute 0.01 K/mm3 (0.00-0.031); Immature Granulocyte Percent A 0.2 % (0-0.5); Lymphocytes Absolute Auto 1.33 K/mm3 (0.9-3.2); Lymphocytes Percent Auto 26.4 % (18.3-44.2); Mean Corpuscular HGB Conc 31.6 g/dl (32-36); Mean Corpuscular Hemoglobin 28.4 pg (26-34); Mean Corpuscular Volume 89.7 fl (80-100); Mean Platelet Volume 9.5 fl (7.4-10.4); Monocytes Absolute Auto 0.5 K/mm3 (0.1-0.6); Monocytes Percent Auto 9.3 % (2.6-8.5); Neutrophils Absolute Auto 2.9 K/mm3 (1.3-6.7); Neutrophils Percent Auto 57.9 % (45.5-73.1); Platelet Count Result 132 k/mm3 (150-375); Red Blood Count 2.82 M/mm3 (4.2-5.4); Red Cell Distribution Width 13.9 % (11.5-14.5)
[2023-04-06 05:14] LABS: Albumin Level 2.8 g/dL (3.5-5.1); Anion Gap 1 mmol/L (8-16); Blood Urea Nitrogen 38 mg/dL (7-17); Calcium 8.6 mg/dL (8.4-10.2); Carbon Dioxide 24 mmol/L (22-30); Chloride 117 mmol/L (98-107); Estimated Glomerular Filt Rate > 60; Glucose 160 mg/dL (65-110); Magnesium 1.7 mg/dL (1.6-2.3); Phosphorus 2.4 mg/dL (2.5-4.5); Potassium 4.1 mmol/L (3.4-5.0); Sodium 142 mmol/L (137-145)
[2023-04-06 05:38] LABS: Iron 31 ug/dL (37-170)
[2023-04-06 05:48] LABS: Percent Iron Saturation 14 % (20-50)
[2023-04-06 07:21] LABS: Glucose Point of Care 158 mg/dl (65-105)
--- NOTE | 2023-04-06 07:44 | PM.IMPN ---
Progress Note: A&P Assessment and Plan (1) Septic shock: Code(s): A41.9 - Sepsis, unspecified organism; R65.21 - Severe sepsis with septic shock Status: Acute Assessment and Plan: Patient presented with hypotension and altered mental status; she became hypothermic. Her BP was as low as 63/49. She was found to have severe sepsis with acute kidney injury, hyperkalemia. Source probably UTI with UA reflective of severe UTI. Patient does have a indwelling Jenkins catheter which was changed out in the ED on admission. 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 TSH and Cortisol normal. -Eating better. -Continue IV abx -follow-up on BCx results Stop IV fluids. BP better so will add back metoprolol and monitor closely (2) Acute kidney injury: Code(s): N17.9 - Acute kidney failure, unspecified Status: Acute Assessment and Plan: Acute kidney injury likely related to UTI, hypotension, shock, meds (ORAL inhibitor, Lasix) baseline Cr unclear but probably normal. Cr 2.3 on admission Renal ultrasound showing no hydronephrosis but limited exam Nephrology was consulted and appreciate their input Cr better at 0.7 -stop maintenance IV fluids -monitor urine output, renal function and electrolytes (3) Hyperkalemia: Code(s): E87.5 - Hyperkalemia Status: Acute Assessment and Plan: Hyperkalemia at 6.7 on admission which was treated appropriately Related to sepsis, metabolic acidosis, renal failure, ORAL Inhibitor Potassium trended down as expected and now normal Follow (4) UTI (urinary tract infection): Code(s): N39.0 - Urinary tract infection, site not specified Status: Acute Assessment and Plan: Patient with chronic indwelling Jenkins catheter Patient presented with hypotension and UA concerning for severe UTI UCx negative but positive BCx. -antibiotics as above -follow up on culture results (5) Insulin dependent diabetes mellitus: Status: Chronic Assessment and Plan: A1c 7.0 in January. The patient's blood glucose was reviewed on 04/06 Glucose remains reasonably well controlled. Continue AccuCheks covering with sliding scale. Hypoglycemia protocol available as needed. Continue to follow. (6) Epilepsy: Code(s): G40.909 - Epilepsy, unspecified, not intractable, without status epilepticus Status: Acute Assessment and Plan: Patient has a history of epilepsy Keppra restarted (7) Anemia: Code(s): D64.9 - Anemia, unspecified Status: Acute Assessment and Plan: Patient with chronic anemia. Hgb was in the 9 range on admission and probably at her baseline. Stool guaiac negative. B12/folate normal in December She is known to be iron deficient and on oral iron chronically. Hgb dropped to 7.7 felt related to IV fluids. Hgb better. Follow Plan DVT prophylaxis: Eliquis Stress ulcer prophylaxis: Famotidine Nutrition: Diabetic diet Code Status: Full code Disposition: [place]. PT/OT ordered. She is wheelchair bound Subjective Date/time seen: 04/06/23 07:44 Interval history: 47yo female with DM, HTN, seizures, DVT/PE on chronic anticoagulation, bipolar disorder, EAMON and history of noncompliance brought in from [place] for evaluation after being found unresponsive with low blood pressures.? No issues overnight. Patient is more oriented today but RN states mental status waxes/wanes throoughout the day with more psychiatric overtones. She had nausea and vomiting yesterday but denies feeling nauseous today. She denies CP or abd pain. No SOB. Slept well.
[2023-04-06] MEDS: GABAPENTIN 300 MG CAPSULE PO ×3 (08:33→16:43)
[2023-04-06] MEDS: FAMOTIDINE 20 MG TABLET PO (08:33)
[2023-04-06] MEDS: APIXABAN 5 MG TABLET PO ×2 (08:33→20:29)
[2023-04-06] MEDS: levETIRAcetam 500 MG TABLET PO ×2 (08:33→16:43)
[2023-04-06] MEDS: TOLNAFTATE 1% POWDER 45 GM BTL 1 APPLIC TOPICAL (08:37)
[2023-04-06] MEDS: LORATADINE 10 MG TABLET PO (08:46)
[2023-04-06] MEDS: METOPROLOL TARTRATE 12.5 MG TABLET PO ×2 (08:47→20:29)
[2023-04-06] MEDS: polyethylene glycoL 3350 17 GM POWD.PACK PO (08:47)
[2023-04-06] MEDS: FERROUS SULFATE 325 MG TABLET DR 324 MG PO ×2 (08:47→16:43)
--- NOTE | 2023-04-06 09:26 | PCPTNOTE ---
Attempted PT evaluation, Pt refused stating she would not like therapist to return until tomorrow. RN aware. Will follow.
--- NOTE | 2023-04-06 09:28 | PCOTNOTE ---
Attempted OT evaluation, Pt. refusing to participated at this time, stating she would not like therapist to return until tomorrow. RN aware. Following.
[2023-04-06 13:05] LABS: Glucose Point of Care 177 mg/dl (65-105)
[2023-04-06 16:49] LABS: Glucose Point of Care 172 mg/dl (65-105)
[2023-04-06] MEDS: ALPRAZolam (*CRX) 0.5 MG TABLET 1 MG PO ×2 (17:37→20:33)
[2023-04-06] MEDS: ACETAMINOPHEN 325 MG TABLET 650 MG PO (18:16)
[2023-04-06] MEDS: ONDANSETRON INJ 4 MG/2 ML VIAL IV PUSH (18:16)
[2023-04-06] MEDS: ATORVASTATIN 20 MG TABLET PO (20:29)
[2023-04-06] MEDS: traZODone HCL 50 MG TABLET PO (20:29)
[2023-04-06 20:41] LABS: Glucose Point of Care 188 mg/dl (65-105)
[2023-04-06] MEDS: INSULIN GLARGINE (*BKC) 100 UNITS/ML SUB-Q (21:30)
[2023-04-06 21:33] LABS: Vancomycin Trough 28.1 ug/mL (10.0-20.0)
[2023-04-07] VITALS (8 sets, daily range): BP systolic 111–159; BP diastolic 54–84; PULSE 70–89; RESP 12–23; TEMP 36.6–36.7; O2SAT 96–98; BMI 10.0
[2023-04-07] MEDS: AZTREONAM 2 GM in SODIUM CHLORIDE 0.9% IV 100 ML 200 ML IVPB ×3 (04:31→21:20)
[2023-04-07 05:20] LABS: Basophils Percent Auto 0.5 % (0.2-1.2); Eosinophils Absolute Auto 0.2 K/mm3 (0-0.3); Hematocrit 24.1 % (37.0-47.0); Hemoglobin 7.5 g/dL (12.0-15.0); Immature Granulocyte Absolute 0.01 K/mm3 (0.00-0.031); Immature Granulocyte Percent A 0.2 % (0-0.5); Lymphocytes Absolute Auto 1.35 K/mm3 (0.9-3.2); Lymphocytes Percent Auto 33.7 % (18.3-44.2); Mean Corpuscular HGB Conc 31.1 g/dl (32-36); Mean Corpuscular Hemoglobin 28.3 pg (26-34); Mean Corpuscular Volume 90.9 fl (80-100); Mean Platelet Volume 9.9 fl (7.4-10.4); Monocytes Absolute Auto 0.4 K/mm3 (0.1-0.6); Neutrophils Percent Auto 50.6 % (45.5-73.1); Platelet Count Result 125 k/mm3 (150-375); Red Blood Count 2.65 M/mm3 (4.2-5.4); Red Cell Distribution Width 13.8 % (11.5-14.5)
[2023-04-07] MEDS: CENTRAL LINE FLUSH 10 ML IV PUSH (05:21)
[2023-04-07 05:30] LABS: Albumin Level 2.6 g/dL (3.5-5.1); Anion Gap 3 mmol/L (8-16); Blood Urea Nitrogen 36 mg/dL (7-17); Calcium 8.4 mg/dL (8.4-10.2); Carbon Dioxide 26 mmol/L (22-30); Chloride 114 mmol/L (98-107); Estimated Glomerular Filt Rate > 60; Glucose 182 mg/dL (65-110); Magnesium 1.7 mg/dL (1.6-2.3); Phosphorus 2.9 mg/dL (2.5-4.5); Potassium 3.9 mmol/L (3.4-5.0); Sodium 143 mmol/L (137-145)
[2023-04-07] MEDS: FERROUS SULFATE 325 MG TABLET DR 324 MG PO ×2 (09:43→16:25)
[2023-04-07] MEDS: FAMOTIDINE 20 MG TABLET PO (09:44)
[2023-04-07] MEDS: METOPROLOL TARTRATE 12.5 MG TABLET PO ×2 (09:44→21:21)
[2023-04-07] MEDS: polyethylene glycoL 3350 17 GM POWD.PACK PO (09:45)
[2023-04-07] MEDS: GABAPENTIN 300 MG CAPSULE PO ×3 (09:45→16:25)
[2023-04-07] MEDS: TOLNAFTATE 1% POWDER 45 GM BTL 1 APPLIC TOPICAL ×2 (09:45→21:29)
[2023-04-07] MEDS: APIXABAN 5 MG TABLET PO ×2 (09:45→21:21)
[2023-04-07] MEDS: LORATADINE 10 MG TABLET PO (09:45)
[2023-04-07] MEDS: levETIRAcetam 500 MG TABLET PO ×2 (09:45→16:26)
--- NOTE | 2023-04-07 11:07 | PM.IMPN ---
Progress Note: A&P Assessment and Plan (1) Septic shock: Code(s): A41.9 - Sepsis, unspecified organism; R65.21 - Severe sepsis with septic shock Status: Acute Assessment and Plan: Patient presented with hypotension and altered mental status; she became hypothermic. Her BP was as low as 63/49. She was found to have severe sepsis with acute kidney injury, hyperkalemia. Source probably UTI with UA reflective of severe UTI. Patient does have a indwelling Jenkins catheter which was changed out in the ED on admission. -patient was adequately fluid-resuscitated -she was started on Levophed with improvement -patient was started on aztreonam and vancomycin (04/03) given her multiple allergies and history of multiple UTIs with Enterococcus and multidrug resistant Proteus mirabilis -UCx negative -BCx positive with Staph Epi (2of2); Repeat BCx pending. 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 TSH and Cortisol normal. BP better. Follow. (2) Acute kidney injury: Code(s): N17.9 - Acute kidney failure, unspecified Status: Acute Assessment and Plan: Acute kidney injury likely related to UTI, hypotension, shock, meds (ORAL inhibitor, Lasix) baseline Cr unclear but probably normal. Cr 2.3 on admission Renal ultrasound showing no hydronephrosis but limited exam Nephrology was consulted and appreciate their input Cr better at 0.8 -monitor urine output, renal function and electrolytes (3) Hyperkalemia: Code(s): E87.5 - Hyperkalemia Status: Acute Assessment and Plan: Hyperkalemia at 6.7 on admission which was treated appropriately Related to sepsis, metabolic acidosis, renal failure, ORAL Inhibitor Potassium trended down as expected and now normal Follow (4) UTI (urinary tract infection): Code(s): N39.0 - Urinary tract infection, site not specified Status: Acute Assessment and Plan: Patient with chronic indwelling Jenkins catheter Patient presented with hypotension and UA concerning for severe UTI UCx negative but positive BCx. -antibiotics as above (5) Insulin dependent diabetes mellitus: Status: Chronic Assessment and Plan: A1c 7.0 in January. The patient's blood glucose was reviewed on 04/07 Glucose remains reasonably well controlled. Continue AccuCheks covering with sliding scale. Hypoglycemia protocol available as needed. Lantus added. Will advance. Continue to follow. (6) Epilepsy: Code(s): G40.909 - Epilepsy, unspecified, not intractable, without status epilepticus Status: Acute Assessment and Plan: Patient has a history of epilepsy Continue Kecodi (7) Anemia: Code(s): D64.9 - Anemia, unspecified Status: Acute Assessment and Plan: Patient with chronic anemia. Hgb was in the 9 range on admission and probably at her baseline. Stool guaiac negative. B12/folate normal in December She is known to be iron deficient and on oral iron chronically. Hgb dropped to 7 range felt related to IV fluids. Hgb remaining stable in the 7 range Follow Plan DVT prophylaxis: Eliquis Stress ulcer prophylaxis: Famotidine Nutrition: Diabetic diet Code Status: Full code Disposition: [place]. PT/OT ordered. She is wheelchair bound Subjective Date/time seen: 04/07/23 11:07 Interval history: 47yo female with DM, HTN, seizures, DVT/PE on chronic anticoagulation, bipolar disorder, EAMON and history of noncompliance brought in from [place] for evaluation after being found unresponsive with low blood pressures.? Patient slept well. Eating normally. She denies chest pain or shortness of breath. No diarrhea Exam Narrative: AF 97.9 150/84 70 23 98% ra Gen - NARD lying semi-recumbent in bed Neck - right IJ TLC in place Chest - CTA bilaterally, nml RR CV - RRR S1/S2. Tele showing paced rhythm Abd - Soft, obese, NT, Positive BS. - Jenkins secured draining clear yellow urine Ext - trace pedal edema Psych
[2023-04-07 11:47] LABS: Glucose Point of Care 214 mg/dl (65-105)
[2023-04-07] MEDS: INSULIN ASPART (*BKC) 100 UNITS/ML SUB-Q ×2 (12:27→16:30)
[2023-04-07] MEDS: VANCOMYCIN 1,250 MG/NS 250 ML 1,250 MG/250 ML BAG 166.67 MG IVPB (15:00)
[2023-04-07] MEDS: FUROSEMIDE 20 MG TABLET PO (16:25)
[2023-04-07 16:29] LABS: Glucose Point of Care 217 mg/dl (65-105)
--- NOTE | 2023-04-07 18:23 | PC.NURSE ---
This patient, Valerie Nguyen, was received from ICU on 04/07/23 at 1742. Patient/family oriented to unit policies and routines
[2023-04-07 21:07] LABS: Glucose Point of Care 204 mg/dl (65-105)
[2023-04-07] MEDS: INSULIN GLARGINE (*BKC) 100 UNITS/ML 10 UNITS SUB-Q (21:20)
[2023-04-07] MEDS: traZODone HCL 50 MG TABLET PO (21:21)
[2023-04-07] MEDS: ATORVASTATIN 20 MG TABLET PO (21:21)
[2023-04-07] MEDS: ALPRAZolam (*CRX) 0.5 MG TABLET 1 MG PO (21:36)
[2023-04-08] VITALS: BP 151/67; PULSE 71; RESP 18; TEMP 36.6; O2SAT 98
[2023-04-08] MEDS: AZTREONAM 2 GM in SODIUM CHLORIDE 0.9% IV 100 ML 200 ML IVPB ×3 (04:42→21:09)
[2023-04-08 05:49] VITALS: BP 122/46; PULSE 71; RESP 18; TEMP 36.6; O2SAT 99
[2023-04-08 06:53] LABS: Hematocrit 24.9 % (37.0-47.0); Hemoglobin 7.8 g/dL (12.0-15.0); Mean Corpuscular HGB Conc 31.3 g/dl (32-36); Mean Corpuscular Hemoglobin 28.1 pg (26-34); Mean Corpuscular Volume 89.6 fl (80-100); Mean Platelet Volume 10.7 fl (7.4-10.4); Platelet Count Result 143 k/mm3 (150-375); Red Blood Count 2.78 M/mm3 (4.2-5.4); White Blood Count 5.1 K/mm3 (4.5-10.0)
[2023-04-08 07:08] LABS: Anion Gap 5 mmol/L (8-16); Blood Urea Nitrogen 38 mg/dL (7-17); Calcium 8.7 mg/dL (8.4-10.2); Carbon Dioxide 25 mmol/L (22-30); Chloride 109 mmol/L (98-107); Estimated Glomerular Filt Rate > 60; Glucose 173 mg/dL (65-110); Potassium 4.3 mmol/L (3.4-5.0); Sodium 139 mmol/L (137-145)
[2023-04-08 07:51] LABS: Glucose Point of Care 168 mg/dl (65-105)
[2023-04-08 09:19] VITALS: PULSE 88
[2023-04-08] MEDS: METOPROLOL TARTRATE 12.5 MG TABLET PO ×2 (09:19→21:10)
[2023-04-08] MEDS: GABAPENTIN 300 MG CAPSULE PO ×3 (09:19→16:58)
[2023-04-08] MEDS: FUROSEMIDE 20 MG TABLET PO ×2 (09:20→16:58)
[2023-04-08] MEDS: LORATADINE 10 MG TABLET PO (09:20)
[2023-04-08] MEDS: FAMOTIDINE 20 MG TABLET PO (09:20)
[2023-04-08] MEDS: APIXABAN 5 MG TABLET PO ×2 (09:20→21:10)
[2023-04-08] MEDS: TOLNAFTATE 1% POWDER 45 GM BTL 1 APPLIC TOPICAL ×2 (09:21→21:24)
[2023-04-08] MEDS: levETIRAcetam 500 MG TABLET PO ×2 (09:21→16:58)
[2023-04-08] MEDS: FERROUS SULFATE 325 MG TABLET DR PO ×2 (09:30→16:58)
[2023-04-08 11:27] LABS: Glucose Point of Care 231 mg/dl (65-105)
[2023-04-08] MEDS: INSULIN ASPART (*BKC) 100 UNITS/ML SUB-Q ×3 (12:17→18:21)
[2023-04-08 16:00] VITALS: BP 139/66; PULSE 73; RESP 16; TEMP 36.6; O2SAT 100
[2023-04-08 16:34] LABS: Glucose Point of Care 225 mg/dl (65-105)
[2023-04-08] MEDS: ALPRAZolam (*CRX) 0.5 MG TABLET 1 MG PO ×2 (17:18→21:11)
--- NOTE | 2023-04-08 17:21 | PM.IMPN ---
Progress Note: A&P Assessment and Plan (1) Septic shock: Code(s): A41.9 - Sepsis, unspecified organism; R65.21 - Severe sepsis with septic shock Status: Acute Assessment and Plan: Patient presented with hypotension and altered mental status; she became hypothermic. Her BP was as low as 63/49. She was found to have severe sepsis with acute kidney injury, hyperkalemia. Source probably UTI with UA reflective of severe UTI. Patient does have a indwelling Jenkins catheter which was changed out in the ED on admission. 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 TSH and Cortisol normal. Plan to continue Aztreonam throught today for a total of 5 days. Change Vanco to Linezolid for 2 weeks treatment from negative blood culture BP better. Follow. (2) Acute kidney injury: Code(s): N17.9 - Acute kidney failure, unspecified Status: Acute Assessment and Plan: Acute kidney injury likely related to UTI, hypotension, shock, meds (ORAL inhibitor, Lasix) baseline Cr unclear but probably normal. Cr 2.3 on admission Renal ultrasound showing no hydronephrosis but limited exam Nephrology was consulted and appreciate their input Cr better at 0.7 -monitor urine output, renal function and electrolytes (3) Hyperkalemia: Code(s): E87.5 - Hyperkalemia Status: Acute Assessment and Plan: Hyperkalemia at 6.7 on admission which was treated appropriately Related to sepsis, metabolic acidosis, renal failure, ORAL Inhibitor Potassium trended down as expected and now normal Follow (4) UTI (urinary tract infection): Code(s): N39.0 - Urinary tract infection, site not specified Status: Acute Assessment and Plan: Patient with chronic indwelling Jenkins catheter Patient presented with hypotension and UA concerning for severe UTI UCx negative but positive BCx. Complete 5 days of Aztreonam. -antibiotics as above (5) Insulin dependent diabetes mellitus: Status: Chronic Assessment and Plan: A1c 7.0 in January. The patient's blood glucose was reviewed on 04/08 Glucose remains elevated Continue AccuCheks covering with sliding scale. Hypoglycemia protocol available as needed. Add back meal time insulin. Continue to follow. (6) Epilepsy: Code(s): G40.909 - Epilepsy, unspecified, not intractable, without status epilepticus Status: Acute Assessment and Plan: Patient has a history of epilepsy Continue Keppra (7) Anemia: Code(s): D64.9 - Anemia, unspecified Status: Acute Assessment and Plan: Patient with chronic anemia. Hgb was in the 9 range on admission and probably at her baseline. Stool guaiac negative. B12/folate normal in December She is known to be iron deficient and on oral iron chronically. Hgb dropped to 7 range felt related to IV fluids but remaining stable in the 7 range off IV fluids Follow Plan DVT prophylaxis: Eliquis Stress ulcer prophylaxis: Famotidine Nutrition: Diabetic diet Code Status: Full code Disposition: [place]. PT/OT ordered. She is wheelchair bound Subjective Date/time seen: 04/08/23 17:21 Interval history: 47yo female with DM, HTN, seizures, DVT/PE on chronic anticoagulation, bipolar disorder, EAMON and history of noncompliance brought in from [place] for evaluation after being found unresponsive with low blood pressures.? No CP or SOB. No concerns or issues overnight. Eating well Exam Narrative: AF 97.8 139/66 73 16 100% ra Gen - NARD sittiing up in bed Chest - CTA bilaterally, nml RR CV - RRR S1/S2 Abd - Soft, obese, NT, Po
--- NOTE | 2023-04-08 19:08 | PC.NURSE ---
On 04/08/23, RN (license pending), Kerry Hernandez, provided care and completed [facility] documentation on this patient. I have reviewed the RN's (license pending) documentation and agree with the findings.
[2023-04-08 20:03] LABS: Glucose Point of Care 187 mg/dl (65-105)
[2023-04-08] MEDS: ATORVASTATIN 20 MG TABLET PO (21:10)
[2023-04-08] MEDS: traZODone HCL 50 MG TABLET PO (21:10)
[2023-04-08] MEDS: LINEZOLID 600 MG TABLET PO (21:10)
[2023-04-08] MEDS: INSULIN GLARGINE (*BKC) 100 UNITS/ML 10 UNITS SUB-Q (21:11)
[2023-04-08 22:36] VITALS: BP 121/57; PULSE 74; RESP 18; TEMP 35.7; O2SAT 100
[2023-04-09 05:00] VITALS: BP 117/60; PULSE 70; RESP 18; TEMP 35.7; O2SAT 97
[2023-04-09 07:42] LABS: Glucose Point of Care 164 mg/dl (65-105)
[2023-04-09 07:53] VITALS: PULSE 70; O2SAT 93
[2023-04-09 08:00] VITALS: BP 126/62; PULSE 70; RESP 18; TEMP 36.6; O2SAT 100
[2023-04-09 09:18] LABS: Hemoglobin 8.2 g/dL (12.0-15.0); Mean Corpuscular HGB Conc 31.5 g/dl (32-36); Mean Corpuscular Hemoglobin 28.4 pg (26-34); Mean Platelet Volume 10.3 fl (7.4-10.4); Platelet Count Result 154 k/mm3 (150-375); Red Blood Count 2.89 M/mm3 (4.2-5.4); Red Cell Distribution Width 14.3 % (11.5-14.5); White Blood Count 5.9 K/mm3 (4.5-10.0)
[2023-04-09 09:30] LABS: Anion Gap 4 mmol/L (8-16); Blood Urea Nitrogen 39 mg/dL (7-17); Calcium 8.9 mg/dL (8.4-10.2); Carbon Dioxide 26 mmol/L (22-30); Chloride 108 mmol/L (98-107); Estimated Glomerular Filt Rate > 60; Glucose 172 mg/dL (65-110); Potassium 4.4 mmol/L (3.4-5.0); Sodium 138 mmol/L (137-145)
[2023-04-09] MEDS: INSULIN ASPART (*BKC) 100 UNITS/ML SUB-Q ×3 (09:33→17:05)
[2023-04-09 09:36] VITALS: PULSE 73
[2023-04-09] MEDS: LORATADINE 10 MG TABLET PO (09:36)
[2023-04-09] MEDS: APIXABAN 5 MG TABLET PO (09:36)
[2023-04-09] MEDS: FUROSEMIDE 20 MG TABLET PO ×2 (09:36→17:04)
[2023-04-09] MEDS: levETIRAcetam 500 MG TABLET PO ×2 (09:36→17:04)
[2023-04-09] MEDS: METOPROLOL TARTRATE 12.5 MG TABLET PO (09:36)
[2023-04-09] MEDS: lisinopriL 20 MG TABLET PO (09:37)
[2023-04-09] MEDS: FAMOTIDINE 20 MG TABLET PO (09:37)
[2023-04-09] MEDS: LINEZOLID 600 MG TABLET PO (09:37)
[2023-04-09] MEDS: FERROUS SULFATE 325 MG TABLET DR PO ×2 (09:37→17:04)
[2023-04-09] MEDS: GABAPENTIN 300 MG CAPSULE PO ×3 (09:37→17:04)
--- NOTE | 2023-04-09 11:23 | PCNFU ---
Nutrition Follow-Up Complete: Increased protein needs as related to wound as evidenced by unstageable pressure ulcer reported. Goal:Adequate Intake of at least 75% of meals/supplements. Pt is meeting goal, continue with same goal. Pt current nutrition is Diabetic consistent carb, Glucerna shakes BID, TEMITOPE BID. Nutrition recommendation: Continue with current plan of care Last recorded weight is 102.7 kg. Bowel Motility: +BM 04/08 Labs Reviewed: Hgb:8.2, HCT:26, BUN:39, Glu:172 Meds Noted: Eliquis, lasix, novolog, lantus Skin: DTPI to heel Additional Notes: Pt continues on a diabetic diet, intake 100% all meals, supplements in place for wound healing. Will monitor weight, labs, oral intake,skin every 7 days.
[2023-04-09 11:33] LABS: Glucose Point of Care 199 mg/dl (65-105)
[2023-04-09] MEDS: TOLNAFTATE 1% POWDER 45 GM BTL 1 APPLIC TOPICAL (12:18)
--- NOTE | 2023-04-09 13:45 | PM.DS ---
DS: Admitting Diagnosis Discharge Date 04/09/23 Admitting Diagnosis unresponsive with low blood pressures DS: Discharge Diagnosis Discharge Diagnosis (1) Septic shock: Code(s): A41.9 - Sepsis, unspecified organism; R65.21 - Severe sepsis with septic shock Status: Acute (2) Acute kidney injury: Code(s): N17.9 - Acute kidney failure, unspecified Status: Acute (3) Hyperkalemia: Code(s): E87.5 - Hyperkalemia Status: Acute (4) UTI (urinary tract infection): Code(s): N39.0 - Urinary tract infection, site not specified Status: Acute (5) Insulin dependent diabetes mellitus: Status: Chronic (6) Epilepsy: Code(s): G40.909 - Epilepsy, unspecified, not intractable, without status epilepticus Status: Acute (7) Anemia: Code(s): D64.9 - Anemia, unspecified Status: Acute DS: Summary Hospital Course Reason for hospitalization: 47yo female with DM, HTN, seizures, DVT/PE on chronic anticoagulation, bipolar disorder, EAMON and history of noncompliance brought in from [place] for evaluation after being found unresponsive with low blood pressures.?Please see H&P for details. Hospital Course: Patient presented with hypotension and altered mental status; she became hypothermic. Her BP was as low as 63/49. She was found to have severe sepsis with HoTN, acute kidney injury, hyperkalemia and hypothermia. Patient has a chronic indwelling Jenkins catheter which was changed out in the ED on admission. Patient was adequately fluid-resuscitated but BP remained low so she was started on Levophed with benefit. Patient was started on aztreonam and vancomycin (04/03) given her multiple allergies and history of multiple UTIs with Enterococcus and multidrug resistant Proteus mirabilis. UCx was negative. BCx was positive with Staph Epi (2of2) and Staph warneri in one bottle; Repeat BCx NGTD. She had clinical improvement and was able to be weaned off Levophed. TSH and Cortisol normal. She had JAYESH likely related to hypotension, shock, and medications (ORAL inhibitor, Lasix). Cr 2.3 on admission with baseline Cr unclear but probably normal. Renal ultrasound showing no hydronephrosis but limited exam. Nephrology was consulted and appreciate their input. Cr improved and down to 0.7. Hyperkalemia at 6.7 on admission which was treated appropriately. Related to sepsis, metabolic acidosis, renal failure, ORAL Inhibitor. Potassium trended down as expected and now normal. Patient with chronic anemia. Hgb was in the 9 range on admission and probably at her baseline. Stool guaiac negative. B12/folate normal in December. She is known to be iron deficient and on oral iron chronically. Hgb dropped to 7 range felt related to IV fluids and improved to 8 range off IV fluids. Source of the sepsis could be skin given small skin wounds noted. She did not have a murmur and she had good clinical response. We held on checking echo at this time. She completed Aztreonam x 5 days. Vancomycin changed to Linezolid to complete a 2 week course after negative cultures. She had clinical improvement and was able to be discharged on 04/09/23 Status at Discharge Cognitive/behavioral status at discharge: stable Time Spent with Patient Time attestation: Total time spent providing and/or coordinating discharge services: 36 minutes Time spent: Greater than 30 minutes Exam Narrative: AF 97.9 126/62 73 18 100% ra Gen - NARD sitting up in bed Chest - CTA bilaterally, nml RR CV - RRR S1/S2 Abd - Soft, obese, NT, Positive BS. - Jenkins secured draining clear yellow urine Ext - trace pedal edema Psych - nml mood and affect. in good spirits Skin - warm and dry DS: Data Data Completed and Pending Labs on day of discharge: Labs from last 24 hours 04/09/23 04/09/23 04/09/23 11:29 09:13 07:35 WBC 5.9 RBC 2.89 L Hgb 8.2 L Hct 26.0 L MCV 90.0 MCH 28.4 MCHC 31.5 L RDW 14.3 Plt Count
[2023-04-09 16:00] VITALS: BP 132/58; PULSE 72; RESP 18; TEMP 36.9; O2SAT 100
[2023-04-09 16:37] LABS: Glucose Point of Care 141 mg/dl (65-105)
[2023-04-09 18:36] LABS: Chloride Rand Ur 30 mmol/L (32-290); Chloride/Creatinine Rand Ur 70 (38-318); Creatinine Random Urine 43 mg/dL (20-275)
== END 2023-04-09 18:15 | DRG 466 ==
LOC: ANHED 18:16 → ANHICU 04-04 00:26 → ANH3MEDSUR 04-07 17:45
PROVIDERS: Emergency Medicine; Internal Medicine; Internal Medicine Nephrology; Physician Assistant; Admitting Provider Internal Medicine; Emergency Provider Student in an Organized Health Care Education/Training Program; PCP Internal Medicine; Visit Provider Internal Medicine
DX: T83.511A Infection and inflammatory reaction due to indwelling urethral catheter, initial encounter (principal); R65.21 Severe sepsis with septic shock; A41.9 Sepsis, unspecified organism; N17.9 Acute kidney failure, unspecified; E11.22 Type 2 diabetes mellitus with diabetic chronic kidney disease; D64.9 Anemia, unspecified; E11.42 Type 2 diabetes mellitus with diabetic polyneuropathy; E66.9 Obesity, unspecified; E78.5 Hyperlipidemia, unspecified; F31.9 Bipolar disorder, unspecified; F41.9 Anxiety disorder, unspecified; I12.9 Hypertensive chronic kidney disease with stage 1 through stage 4 chronic kidney disease, or unspecified chronic kidney disease; J44.9 Chronic obstructive pulmonary disease, unspecified; N18.9 Chronic kidney disease, unspecified; N39.0 Urinary tract infection, site not specified; K21.9 Gastro-esophageal reflux disease without esophagitis; M19.90 Unspecified osteoarthritis, unspecified site; G89.4 Chronic pain syndrome; L30.9 Dermatitis, unspecified; E87.5 Hyperkalemia; G40.909 Epilepsy, unspecified, not intractable, without status epilepticus; G47.33 Obstructive sleep apnea (adult) (pediatric); Z96.653 Presence of artificial knee joint, bilateral; Z86.718 Personal history of other venous thrombosis and embolism; Z79.01 Long term (current) use of anticoagulants; Z91.199 Patient's noncompliance with other medical treatment and regimen due to unspecified reason; Z68.42 Body mass index [BMI] 45.0-49.9, adult; Z86.711 Personal history of pulmonary embolism; Z90.49 Acquired absence of other specified parts of digestive tract; Z95.0 Presence of cardiac pacemaker; Z87.891 Personal history of nicotine dependence
CPT/HCPCS: 36415; 36556; 70450; 71045; 76775; 80048; 80053; 80069; 80202; 81001; 82274; 82436; 82533; 82550; 82565; 82570; 82728; 82948; 83540; 83550; 83605; 83735; 84100; 84133; 84300; 84443; 84484; 85025; 85027; 85610; 85730; 85999; 86140; 87040; 87077; 87086; 87088; 87186; 93005; 94640; 96365; 96375; 97161; 97165; 99285; A9270; J0457; J0696; J1815; J2405; J3370; J7030; J7120

== ENCOUNTER 2023-04-28 15:28 | Emergency (ER) | payer OTHER, SELFPAY ==
--- NOTE | ~2023-04-28 | CT_ITS ---
EXAMINATION: CT brain wo con DATE: 04/28/2023 16:39 INDICATION: Patient fell out of bed and struck head. TECHNIQUE: Computed tomography (CT) of the head was performed without intravenous contrast. The mA wa s adjusted according to patient size. Iterative reconstruction technique was employed. Exam dose: 60 5.33 mGy-cm total exam DLP. COMPARISON: None FINDINGS: Bilateral carotid siphon internal carotid artery calcifications. No intracranial mass lesion or hemorrhage or cerebrovascular accident, midline shift or mass effect i s detected. No subdural or epidural hematoma. No skull fracture or bone destruction. The mastoid air cells and included paranasal sinuses are normally developed and aerated. IMPRESSION: No skull fracture or acute intracranial finding Cerebral atherosclerosis Reviewed, dictated and finalized at [facility] Reviewed, dictated and finalized at [facility].
[2023-04-28 15:27] VITALS: BP 136/59; PULSE 69; RESP 20; TEMP 36.4; O2SAT 100
--- NOTE | 2023-04-28 16:15 | ED.GENADULT ---
HPI - General Adult General Chief complaint: Fall Stated complaint: fall out of bed - + blood thinners Time Seen by Provider: 04/28/23 15:35 History of Present Illness HPI narrative: Valerie Nguyen is a 47 y/o female who presents via EMS from [place]. Per report pt had a fall today out of her bed and since she is on blood thinners they wanted to get her checked out. Patient is alert and oriented to self/ year/ place/ situation. She statest that she uses a wheelchair to get around and today was tring to get out of bed and slipped and fell striking her left upper part of her head. She did not have any LOC and the fall happened right before she arrived here. Related Data Home Medications Medication Instructions Recorded Confirmed atorvastatin 20 mg tablet 20 mg PO HS 08/21/19 04/04/23 furosemide 20 mg tablet 40 mg PO BID 01/18/22 04/04/23 albuterol sulfate 90 mcg/actuation 2 puff inhalation Q4H PRN 04/22/22 04/04/23 aerosol inhaler Shortness Of Breath famotidine 20 mg tablet (Pepcid) 20 mg PO DAILY 04/22/22 04/04/23 lisinopril 20 mg tablet 20 mg PO DAILY 04/22/22 04/04/23 loratadine 10 mg tablet 10 mg PO DAILY 04/22/22 04/04/23 promethazine 25 mg tablet 25 mg PO Q8H PRN Nausea 08/10/22 04/04/23 gabapentin 300 mg capsule 300 mg PO TID 09/21/22 04/04/23 sitagliptin phosphate 100 mg 100 mg PO DAILY 09/21/22 04/04/23 tablet (Januvia) levetiracetam 500 mg tablet 500 mg PO BID 10/15/22 04/04/23 bisacodyl 10 mg rectal suppository 10 mg RECTAL DAILY PRN Constipation 12/18/22 04/04/23 glucagon 1 mg solution for 1 mg subcut Q1H PRN Hypoglycemia 12/18/22 04/04/23 injection (GlucaGen HypoKit) insulin glargine 100 unit/mL (3 10 unit subcut QPM 12/18/22 04/04/23 mL) subcutaneous pen (Lantus Solostar U-100 Insulin) polyethylene glycol 3350 17 gram 17 g PO DAILY PRN Constipation 12/18/22 04/04/23 oral powder packet dextromethorphan 20 mg-quinidine 1 cap PO Q12H 04/04/23 04/04/23 10 mg capsule (Nuedexta) insulin lispro 100 unit/mL 7 unit subcut TIDWM 04/04/23 04/04/23 subcutaneous solution trazodone 50 mg tablet 50 mg PO HS 04/04/23 04/04/23 Allergies Allergy/AdvReac Type Severity Reaction Status Date / Time lidocaine Allergy Intermediate HIVES Verified 10/15/22 18:06 nitroglycerin Allergy Intermediate HIVES Verified 10/15/22 18:06 aspirin Allergy Mild Hives Verified 10/15/22 18:06 citalopram Allergy Mild Rash Verified 10/15/22 18:06 escitalopram Allergy Mild Hives Verified 10/15/22 18:06 ibuprofen Allergy Mild Hives Verified 10/15/22 18:06 Penicillins Allergy Mild HIVES PER Verified 10/15/22 18:06 UNCODED ALLERGIES 08/27/12 procaine Allergy Mild Hives Verified 10/15/22 18:06 propoxyphene Allergy Mild Hives Verified 10/15/22 18:06 doxycycline Allergy Unknown Hives Verified 10/15/22 18:06 meloxicam Allergy Unknown HIVES Verified 10/15/22 18:06 Sulfa (Sulfonamide Allergy Unknown HIVES PER Verified 10/15/22 18:06 Antibiotics) UNCODED ALLERGIES 08/27/12 sulfamethoxazole Allergy Unknown Hives Verified 10/15/22 18:06 trimethoprim Allergy Unknown Hives Verified 10/15/22 18:06 amoxicillin Allergy Hives Verified 10/15/22 18:07 codeine Allergy Hives Verified 10/15/22 18:06 iohexol Allergy Hives Verified 10/15/22 18:06 [From contrast - CT, X-RAY] adhesive AdvReac Unknown SILK TAPE= Verified 10/15/22 18:06 HIVES imipenem AdvReac Itching Verified 10/15/22 18:06 Review of Systems Review of Systems: CONSTITUTIONAL: Denies fever, chills, or sweats. EYES: Denies visual changes, redness, or discharge. ENT: Denies rhinorrhea, congestion, sore throat, or otalgia. CARDIOVASCULAR: Denies chest pain, palpitations, or edema. RESPIRATORY: Denies cough or dyspnea. GASTROINTESTINAL: Denies abdominal pain, nausea, vomiting, or diarrhea. GENITOURINARY: Denies dysuria or hematuria. SKIN: Denies rash or itching. MUSCULOSKELETAL: Denies back pain, joint pain, or myalgia. NEUROLOGIC: Denies headache, numbness, dizziness,
--- NOTE | 2023-04-28 18:26 | PC.NURSE ---
attempted to call [facility] to give report. no one answered
--- NOTE | 2023-04-28 19:10 | PC.NURSE ---
Assumed care of pt. Report from TYRELL Benton. Pt resting quietly per cart, in nad with blankets over head. Equal rise/fall of chest, normal rate/depth. Awaiting transport back to facility. Will continue to monitor.
--- NOTE | 2023-04-28 20:23 | PC.NURSE ---
Pt continues to rest quietly with blanket over head. Equal rise/fall of chest. Awaiting transport to go back to facility.
[2023-04-28 22:15] VITALS: BP 104/64; PULSE 74; RESP 16; O2SAT 98
== END 2023-04-28 22:15 ==
PROVIDERS: Emergency Provider Nurse Practitioner Family; PCP Internal Medicine
DX: R51.9 Headache, unspecified (principal); E78.5 Hyperlipidemia, unspecified; J44.9 Chronic obstructive pulmonary disease, unspecified; I12.9 Hypertensive chronic kidney disease with stage 1 through stage 4 chronic kidney disease, or unspecified chronic kidney disease; N18.9 Chronic kidney disease, unspecified; Z79.01 Long term (current) use of anticoagulants; Z86.718 Personal history of other venous thrombosis and embolism; Z87.891 Personal history of nicotine dependence; W06.XXXA Fall from bed, initial encounter
CPT/HCPCS: 70450; 99284

== ENCOUNTER 2023-05-03 17:18 | Inpatient (IN) | payer OTHER, SELFPAY ==
[2023-05-03] VITALS (48 sets, daily range): BP systolic 84–225; BP diastolic 42–210; PULSE 48–91; RESP 11–22; TEMP 37–37.1; O2SAT 87–100
--- NOTE | ~2023-05-03 | XR_ITS ---
EXAMINATION: XR chest 2V Exam Date/Time: 05/03/2023 17:39 CDT HISTORY: CP Comparison: 04/03/2023. RESULT: Lines, tubes, and devices: Left chest pacer with intact leads. Lungs and pleura: Low volumes with crowding. The lateral view is particularly limited by portable te chnique and inadequate inspiration. Right lateral costophrenic angle blunting. Streaky bibasilar opac ities. Cardiomediastinal silhouette: Stable. Other: No acute osseous or upper abdominal finding. IMPRESSION: Possible small right pleural effusion. Bibasilar atelectasis/consolidation. Reviewed, dictated and finalized at location K.
--- NOTE | ~2023-05-03 | CT_ITS ---
EXAMINATION: CT chest abdomen pelvis wo con DATE: 05/03/2023 21:02 INDICATION: chest pain, recent fall, anemia . TECHNIQUE: Computed tomography (CT) of the chest, abdomen, and pelvis was performed with 100 mL Omnip aque-350 intravenous contrast. Automated exposure control and iterative reconstruction technique were employed. The dose-length product was 1785.30 mGy-cm. COMPARISON: X-ray chest, same date; CT chest abdomen pelvis 10/15/2022. FINDINGS: CHEST: No thoracic aortic injury, given noncontrast technique. No mediastinal hematoma. Trace pericardial fluid. Left chest pacer. No acute lung injury. Minimal bibasilar atelectasis. No pneumothorax. Small right pleural effusion ABDOMEN/PELVIS: No solid organ injury, given noncontrast technique. Fatty infiltration of the pancreas. No evidence of bowel or mesenteric injury. Status post cholecystectomy. No free fluid or free air. No retroperitoneal hematoma. Mild atherosclerotic calcifications. Pelvic contents are atraumatic. Urinary bladder wall thickening with an appropriately positioned Fole y catheter. Left inguinal lymphadenopathy. MUSCULOSKELETAL: No acute extraspinal fracture. Moderate body wall edema. Interval resolution of the previously descri bed asymmetric left breast soft tissue density and skin thickening. No fracture or traumatic malalignment of the thoracic or lumbar spine. IMPRESSION: No acute traumatic process detected in the chest, abdomen, or pelvis. Trace pericardial effusion. Small right pleural effusion. Urinary bladder wall thickening may reflect cystitis in the appropriate clinical context. Moderate body wall edema. Left inguinal lymphadenopathy. Reviewed, dictated and finalized at location K. IMPRESSION: No acute traumatic process detected in the chest, abdomen, or pelvis. Trace pericardial effusion. Small right pleural effusion. Urinary bladder wall thickening may reflect cystitis in the appropriate clinica l context. Moderate body wall edema. Left inguinal lymphadenopathy.
--- NOTE | ~2023-05-03 | XR_ITS ---
EXAM: XR foot LT min 3V DATE: 05/03/2023 18:34 HISTORY: Left foot heel ulcer . COMPARISON: None available. FINDINGS: Decreased mineralization. No fracture or dislocation. No lytic or blastic lesion. Scattere d degenerative changes. Achilles and plantar enthesopathy. No erosion or periosteal change. Vascular calcifications. Soft tissue swelling over the heel and forefoot. IMPRESSION: Osteopenia. No acute fracture or dislocation detected. No radiographic evidence of osteom yelitis. Reviewed, dictated and finalized at location K. IMPRESSION: Osteopenia. No acute fracture or dislocation detected. No radiograp hic evidence of osteomyelitis.
--- NOTE | ~2023-05-03 | US_ITS ---
US renal BI 05/08/2023 15:41 Procedure: Realtime transabdominal ultrasound of the kidneys and bladder. Indication: Acute renal insufficiency. Comparison: No prior studies for comparison. Findings: Renal echotexture is normal bilaterally without hydronephrosis, contour deforming mass or r enal calculus. The right kidney measures 11.8 cm and left kidney measures 11.2 cm. Bladder within no rmal limits. Impression: 1: Unremarkable renal ultrasound. No stones, masses or hydronephrosis. Reviewed, dictated and finalized at location B. Impression: 1: Unremarkable renal ultrasound. No stones, masses or hydronephrosis.
--- NOTE | 2023-05-03 17:21 | ECG_ITS ---
Measurements Intervals [place] Rate: 80 P: 42 GA: 166 QRS: 30 QRSD: 83 T: 23 QT: 360 QTc: 417 Interpretive Statements SINUS RHYTHM LOW QRS VOLTAGE IN DIFFUSE LEADS CONSIDER ANTERIOR INFARCT, AGE INDETERMINATE BASELINE WANDER- V6 ABNORMAL ECG COMPARED TO ECG 04/03/2023 17:54:37 SINUS RHYTHM NOW PRESENT Electronically Signed On 05-03-2023 20:38:06 CDT by Kalin Castorena D.O.
--- NOTE | 2023-05-03 18:00 | ED.CHESTPAIN ---
HPI - Chest Pain General Chief Complaint: Chest Pain <Jayne Gomez PA-C - Last Filed: 05/04/23 01:22> Stated Complaint: cp <Jayne Gomez PA-C - Last Filed: 05/04/23 01:22> Time Seen by Provider: 05/03/23 17:21 <Jayne Gomez PA-C - Last Filed: 05/04/23 01:22> Source: patient <SASHA Perry Last Filed: 05/04/23 01:22> Mode of arrival: EMS <SASHA Perry Last Filed: 05/04/23 01:22> Limitations: no limitations <Jayne Gomez PA-C - Last Filed: 05/04/23 01:22> History of Present Illness HPI narrative: This is a 47 year old female that presents to the ER for chest pressure. Reports she was watching TV and started to have chest pressure. This has improved without intervention. Also reports left heel pain ongoing since yesterday. Reports her left heel started hurting yesterday. Denies fever, cough, shortness of breath, or lower extremity edema. <Jayne Gomez PA-C - Last Filed: 05/04/23 01:22> Related Data Home Medications: Home Medications Medication Instructions Recorded Confirmed furosemide 20 mg tablet 40 mg PO BID 01/18/22 05/04/23 albuterol sulfate 90 mcg/actuation 2 puff inhalation Q4H PRN 04/22/22 05/04/23 aerosol inhaler Shortness Of Breath famotidine 20 mg tablet (Pepcid) 20 mg PO DAILY 04/22/22 05/04/23 lisinopril 20 mg tablet 20 mg PO DAILY 04/22/22 05/04/23 loratadine 10 mg tablet 10 mg PO DAILY 04/22/22 05/04/23 gabapentin 300 mg capsule 300 mg PO TID 09/21/22 05/04/23 sitagliptin phosphate 100 mg 100 mg PO DAILY 09/21/22 05/04/23 tablet (Januvia) levetiracetam 500 mg tablet 500 mg PO BID 10/15/22 05/04/23 bisacodyl 10 mg rectal suppository 10 mg RECTAL DAILY PRN Constipation 12/18/22 05/04/23 glucagon 1 mg solution for 1 mg subcut Q1H PRN Hypoglycemia 12/18/22 05/04/23 injection (GlucaGen HypoKit) insulin glargine 100 unit/mL (3 10 unit subcut QPM 12/18/22 05/04/23 mL) subcutaneous pen (Lantus Solostar U-100 Insulin) polyethylene glycol 3350 17 gram 17 g PO DAILY PRN Constipation 12/18/22 05/04/23 oral powder packet insulin lispro 100 unit/mL 7 unit subcut TIDWM 04/04/23 05/04/23 subcutaneous solution trazodone 50 mg tablet 50 mg PO HS 04/04/23 05/04/23 Betadine Swabsticks 1 applic topical BID 05/04/23 05/04/23 Saccharomyces boulardii 250 mg 250 mg PO BID 05/04/23 05/04/23 capsule promethazine 25 mg rectal 25 mg RECTAL Q8H PRN nausea and 05/04/23 05/04/23 suppository vomitting <Jayne Gomez PA-C - Last Filed: 05/04/23 01:22> Allergies/Adverse Reactions: Allergies Allergy/AdvReac Type Severity Reaction Status Date / Time lidocaine Allergy Intermediate HIVES Verified 10/15/22 18:06 nitroglycerin Allergy Intermediate HIVES Verified 10/15/22 18:06 aspirin Allergy Mild Hives Verified 10/15/22 18:06 citalopram Allergy Mild Rash Verified 10/15/22 18:06 escitalopram Allergy Mild Hives Verified 10/15/22 18:06 ibuprofen Allergy Mild Hives Verified 10/15/22 18:06 Penicillins Allergy Mild HIVES PER Verified 10/15/22 18:06 UNCODED ALLERGIES 08/27/12 procaine Allergy Mild Hives Verified 10/15/22 18:06 propoxyphene Allergy Mild Hives Verified 10/15/22 18:06 doxycycline Allergy Unknown Hives Verified 10/15/22 18:06 meloxicam Allergy Unknown HIVES Verified 10/15/22 18:06 Sulfa (Sulfonamide Allergy Unknown HIVES PER Verified 10/15/22 18:06 Antibiotics) UNCODED ALLERGIES 08/27/12 sulfamethoxazole Allergy Unknown Hives Verified 10/15/22 18:06 trimethoprim Allergy Unknown Hives Verified 10/15/22 18:06 amoxicillin Allergy Hives Verified 10/15/22 18:07 codeine Allergy Hives Verified 10/15/22 18:06 iohexol Allergy Hives Verified 10/15/22 18:06 [From contrast - CT, X-RAY] adhesive AdvReac Unknown SILK TAPE= Verified 10/15/22 18:06 HIVES imipenem AdvReac Itching Verified 10/15/22 18:06 <Jayne Gomez PA-C - Last Filed: 05/04/23 01:22> Review of Systems Review of Systems:
[2023-05-03 18:10] LABS: Basophils Percent Auto 0.4 % (0.2-1.2); Eosinophils Absolute Auto 0.2 K/mm3 (0-0.3); Eosinophils Percent Auto 3.3 % (0-4.4); Hematocrit 22.7 % (37.0-47.0); Immature Granulocyte Absolute 0.03 K/mm3 (0.00-0.031); Immature Granulocyte Percent A 0.4 % (0-0.5); Lymphocytes Absolute Auto 1.59 K/mm3 (0.9-3.2); Lymphocytes Percent Auto 21.8 % (18.3-44.2); Mean Corpuscular HGB Conc 29.5 g/dl (32-36); Mean Corpuscular Hemoglobin 28.2 pg (26-34); Mean Corpuscular Volume 95.4 fl (80-100); Mean Platelet Volume 10.5 fl (7.4-10.4); Monocytes Absolute Auto 1.1 K/mm3 (0.1-0.6); Monocytes Percent Auto 15.1 % (2.6-8.5); Neutrophils Absolute Auto 4.3 K/mm3 (1.3-6.7); Platelet Count Result 154 k/mm3 (150-375); Red Blood Count 2.38 M/mm3 (4.2-5.4); Red Cell Distribution Width 14.8 % (11.5-14.5); White Blood Count 7.3 K/mm3 (4.5-10.0)
[2023-05-03 18:22] LABS: INR 1.5; Prothrombin Time 18.7 Seconds (11.1-14.7)
[2023-05-03 18:23] LABS: Partial Thromboplastin Time 33.1 SECONDS (22.3-36.8)
[2023-05-03 18:35] LABS: Alanine Aminotransferase 21 U/L (6-35); Albumin Level 3.7 g/dL (3.5-5.1); Alkaline Phosphatase 78 U/L (38-126); Anion Gap 4 mmol/L (8-16); Aspartate Amino Transferase 19 U/L (14-36); Bilirubin,Total 0.3 mg/dL (0.2-1.3); Blood Urea Nitrogen 67 mg/dL (7-17); Calcium 8.5 mg/dL (8.4-10.2); Carbon Dioxide 30 mmol/L (22-30); Chloride 104 mmol/L (98-107); Estimated Glomerular Filt Rate 40; Glucose 122 mg/dL (65-110); Lipase 184 U/L (23-300); Potassium 6.7 mmol/L (3.4-5.0); Sodium 138 mmol/L (137-145)
[2023-05-03 18:43] LABS: Troponin I < 0.012 ng/mL (0.000-0.034)
[2023-05-03 18:46] LABS: Hemoglobin 6.7 g/dL (12.0-15.0)
[2023-05-03] MEDS: ACETAMINOPHEN 500 MG TABLET 1000 MG PO (19:06)
[2023-05-03 19:16] LABS: Potassium 6.5 mmol/L (3.4-5.0)
[2023-05-03 19:53] LABS: Glucose Point of Care 124 mg/dl (65-105)
[2023-05-03] MEDS: DEXTROSE 50% 25 GM/50 ML SYRINGE IV PUSH (20:20)
[2023-05-03] MEDS: CALCIUM GLUCONATE 1,000 MG/10 ML VIAL 1000 MG IV PUSH (20:21)
[2023-05-03] MEDS: INSULIN HUMAN REGULAR (*BKC) 100 UNITS/ML 10 UNITS IV PUSH (20:25)
[2023-05-03 21:40] LABS: Appearance Urine Clear (Clear); Bacteria Urine 4+ /hpf; Bilirubin Urine Negative (Negative); Blood Urine Trace (Negative); Color Urine Yellow (Yellow); Glucose Urine UA Negative (Negative); Ketones Urine Negative (Negative); Leukocyte Esterase Ur 2+ LEU/UL (Negative); Nitrate Urine Positive (Negative); Protein Urine Negative (Negative); Squamous Epithelial Cell Urine None seen /hpf (Few); Urobilinogen Urine 0.2 mg/dL (<2.0); WBC Urine 21-50 /hpf
[2023-05-03 21:40] LABS: Glucose Point of Care 91 mg/dl (65-105)
[2023-05-03 21:51] LABS: Add Urine Microscopic? YES
[2023-05-03 21:57] LABS: Troponin I < 0.012 ng/mL (0.000-0.034)
[2023-05-03 22:32] LABS: Potassium 5.9 mmol/L (3.4-5.0)
[2023-05-03 22:50] LABS: Glucose Point of Care 76 mg/dl (65-105)
[2023-05-03] MEDS: CEFEPIME 2 GM/NS 50 ML 2 GM/50 ML BAG IVPB (23:03)
--- NOTE | 2023-05-03 23:23 | PM.IMHP ---
H&P: HPI History of Present Illness Date/Time: 05/03/23 23:23 Chief Complaint: patient brought back to the ER for evaluation from long term with chest pressure and left heel pain Narrative: She is a very unfortunate 47 years old white female who is a long term resident with history of chronic multiple medical issues and noncompliance. She has recently been discharged from the hospital. Please see the discharge summary as below: DS: Summary ... 04/09/2023 Hospital Course Reason for hospitalization: 47yo female with DM, HTN, seizures, DVT/PE on chronic anticoagulation, bipolar disorder, EAMON and history of noncompliance brought in from [place] for evaluation after being found unresponsive with low blood pressures.?Please see H&P for details. Hospital Course: Patient presented with hypotension and altered mental status; she became hypothermic. Her BP was as low as 63/49. She was found to have severe sepsis with HoTN, acute kidney injury, hyperkalemia and hypothermia. Patient has a chronic indwelling Jenkins catheter which was changed out in the ED on admission. Patient was adequately fluid-resuscitated but BP remained low so she was started on Levophed with benefit. Patient was started on aztreonam and vancomycin (04/03) given her multiple allergies and history of multiple UTIs with Enterococcus and multidrug resistant Proteus mirabilis. UCx was negative. BCx was positive with Staph Epi (2of2) and Staph warneri in one bottle; Repeat BCx NGTD. She had clinical improvement and was able to be weaned off Levophed. TSH and Cortisol normal. She had JAYESH likely related to hypotension, shock, and medications (ORAL inhibitor, Lasix). Cr 2.3 on admission with baseline Cr unclear but probably normal. Renal ultrasound showing no hydronephrosis but limited exam. Nephrology was consulted and appreciate their input. Cr improved and down to 0.7.? Hyperkalemia at 6.7 on admission which was treated appropriately. Related to sepsis, metabolic acidosis, renal failure, ORAL Inhibitor. Potassium trended down as expected and now normal. Patient with chronic anemia. Hgb was in the 9 range on admission and probably at her baseline. Stool guaiac negative. B12/folate normal in December. She is known to be iron deficient and on oral iron chronically. Hgb dropped to 7 range felt related to IV fluids and improved to 8 range off IV fluids. Source of the sepsis could be skin given small skin wounds noted. She did not have a murmur and she had good clinical response.? We held on checking echo at this time.? She completed Aztreonam x 5 days. Vancomycin changed to Linezolid to complete a 2 week course after negative cultures. She had clinical improvement and was able to be discharged on 04/09/23 Patient is complaining of intermittent chest pressure, intensity 4-5/10, located in anterior chest radiating to the left upper arm without any palpitation or sweating. She was sent to the ER for evaluation. Workup was done which showed multiple abnormalities including hyperkalemia with potassium level of 6.7, left heel diabetes ulcer and hemoglobin of 6.7. Her chest pain improved without any intervention. Patient was treated aggressively with Insulin, D50 and calcium gluconate for hyperkalemia and her potassium level came down to 5.9. 1 unit of packed RBCs ordered for hemoglobin of 6.7. She is being admitted to IMU for close monitoring and further management. Review of Systems Review of Systems: she denies any palpitations, fever rigor chills, sweating, nausea vomiting loss of consciousness or any abdominal pain All systems reviewed & are unremarkable except as noted in HPI and below PMFSH Past Medical History Medical History (Updated 05/03/23 @ 23:40 by Santo Lancaster MD) Anemia Anxiety Arthritis Asthma Bipolar disorder Chronic anticoagulation For history of DVT and PE. Chronic kidney disease Chronic obstructive pulmonary disease Chronic pain syndrome Deep venous thrombosis Depression Diast
--- NOTE | 2023-05-03 23:25 | PC.NURSE ---
report and care given to TYRELL Fernando. all questions answered.
[2023-05-03] MEDS: SODIUM CHLORIDE 0.9% IV 250 ML 30 ML IV CONT (23:37)
[2023-05-03] MEDS: metroNIDAZOLE 500 MG/ISO 100ML 500 MG/100 ML BAG 100 MG IVPB (23:39)
[2023-05-03] MEDS: SODIUM ZIRCONIUM CYCLOSILICATE 10 GM POWD.PACK PO (23:42)
[2023-05-04] VITALS (23 sets, daily range): BP systolic 91–136; BP diastolic 46–80; PULSE 70–82; RESP 12–19; TEMP 36–37.8; O2SAT 96–99; BMI 45.8
[2023-05-04 00:31] LABS: Troponin I < 0.012 ng/mL (0.000-0.034)
[2023-05-04] MEDS: VANCOMYCIN 1,250 MG/NS 250 ML 1,250 MG/250 ML BAG 166.67 MG IVPB ×2 (00:46→02:05)
--- NOTE | 2023-05-04 01:35 | ADMIMU ---
This patient, Valerie Nguyen, was admitted to IMU status, and placed in Intensive Care Unit-7. Patient/family oriented to hospital policies and general routines including ID bracelet, bed and alarms, visiting hours, pain management, procedures, bathroom and other care routines, personal items, smoking policy, room service/diet, and visiting hours. Valuables list has been completed. Information on how to activate the Rapid Response Team has been discussed. Patient/Family are encouraged to report perceived risks to care and to ask questions if they do not understand what they are told or what they should do.
[2023-05-04] MEDS: metroNIDAZOLE 500 MG/ISO 100ML 500 MG/100 ML BAG 100 MG IVPB ×3 (05:32→21:24)
[2023-05-04] MEDS: SODIUM CHLORIDE 0.9% IV 1,000 ML 75 ML IV CONT (05:32)
[2023-05-04 07:35] LABS: Glucose Point of Care 156 mg/dl (65-105)
[2023-05-04] MEDS: METOPROLOL TARTRATE 12.5 MG TABLET PO ×2 (08:20→20:34)
[2023-05-04] MEDS: LORATADINE 10 MG TABLET PO (08:20)
[2023-05-04] MEDS: FAMOTIDINE 20 MG TABLET PO (08:20)
[2023-05-04] MEDS: FUROSEMIDE 40 MG TABLET PO ×2 (08:20→16:56)
[2023-05-04] MEDS: lisinopriL 20 MG TABLET PO (08:20)
[2023-05-04] MEDS: FERROUS SULFATE 325 MG TABLET DR BY MOUTH ×2 (08:21→16:56)
[2023-05-04] MEDS: GABAPENTIN 300 MG CAPSULE PO ×3 (08:21→16:56)
[2023-05-04] MEDS: SACCHAROMYCES BOULARDII 250 MG CAPSULE PO ×2 (08:21→16:56)
[2023-05-04] MEDS: INSULIN ASPART (*BKC) 100 UNITS/ML 7 UNITS SUB-Q ×3 (08:21→16:56)
[2023-05-04] MEDS: APIXABAN 5 MG TABLET PO ×2 (08:21→20:34)
[2023-05-04] MEDS: levETIRAcetam 500 MG TABLET PO ×2 (08:21→20:34)
[2023-05-04] MEDS: CEFEPIME 1 GM/NS 50 ML 1 GM/50 ML BAG IVPB ×2 (08:21→20:51)
[2023-05-04] MEDS: TOLNAFTATE 1% POWDER 45 GM BTL 1 APPLIC TOPICAL (08:23)
[2023-05-04 08:25] LABS: Basophils Percent Auto 0.3 % (0.2-1.2); Eosinophils Absolute Auto 0.2 K/mm3 (0-0.3); Eosinophils Percent Auto 3.1 % (0-4.4); Hematocrit 26.3 % (37.0-47.0); Hemoglobin 7.9 g/dL (12.0-15.0); Immature Granulocyte Absolute 0.05 K/mm3 (0.00-0.031); Immature Granulocyte Percent A 0.9 % (0-0.5); Lymphocytes Absolute Auto 1.13 K/mm3 (0.9-3.2); Lymphocytes Percent Auto 19.2 % (18.3-44.2); Mean Corpuscular Hemoglobin 28.3 pg (26-34); Mean Corpuscular Volume 94.3 fl (80-100); Mean Platelet Volume 10.3 fl (7.4-10.4); Monocytes Absolute Auto 0.9 K/mm3 (0.1-0.6); Monocytes Percent Auto 15.3 % (2.6-8.5); Neutrophils Absolute Auto 3.6 K/mm3 (1.3-6.7); Neutrophils Percent Auto 61.2 % (45.5-73.1); Platelet Count Result 153 k/mm3 (150-375); Red Blood Count 2.79 M/mm3 (4.2-5.4); Red Cell Distribution Width 14.7 % (11.5-14.5); White Blood Count 5.9 K/mm3 (4.5-10.0)
[2023-05-04 08:30] LABS: Anion Gap 7 mmol/L (8-16); Blood Urea Nitrogen 65 mg/dL (7-17); Calcium 8.5 mg/dL (8.4-10.2); Carbon Dioxide 25 mmol/L (22-30); Chloride 105 mmol/L (98-107); Estimated Glomerular Filt Rate 44; Glucose 158 mg/dL (65-110); Magnesium 2.5 mg/dL (1.6-2.3); Phosphorus 4.1 mg/dL (2.5-4.5); Potassium 5.8 mmol/L (3.4-5.0); Sodium 137 mmol/L (137-145)
[2023-05-04 08:42] LABS: Troponin I < 0.012 ng/mL (0.000-0.034)
--- NOTE | 2023-05-04 09:19 | ECHO_ITS ---
Patient Info Name: Valerie Nguyen Age: 47 years : 1975 Gender: Female Ht: 50 in Wt: 236 lbs BSA: 2.04 m2 HR: 79 bpm BP: 124 / 80 mmHg Heart Rhythm: Sinus Rhythm Technical Quality: Fair Exam Date: 05/04/2023 2:02 PM Exam Location: [facility] Patient Status: Inpatient Admit Date: 05/03/2023 Staff Ordering Physician: Nawaf Odonnell MD Wire Brush Operator: Rena Pettit RDCS Attending Provider: Santo Lancaster MD Referring Physician: Belle VALENCIA; Exam Type: CA echo doppler color flow Study Info Indications - recent bacteremia, hypotension R07.9 - Chest pain, unspecified Complete two-dimensional, color flow and Doppler transthoracic echocardiogram is performed. Summary 1. Technically difficult study with limited views. 2. Left ventricular chamber dimension is normal. 3. Left ventricular systolic function is normal, estimated at 65-70%. 4. There is mildly increased left ventricular wall thickness. 5. Right ventricular systolic function is normal. 6. There is mild tricuspid valve regurgitation. Left Ventricle Left ventricular chamber dimension is normal. Left ventricular systolic function is normal, estimated at 65-70%. There is mildly increased left ventricular wall thickness. Right Ventricle Right ventricular chamber dimension is not well visualized. Right ventricular systolic function is normal. Left Atria Left atrial chamber dimension is normal. Right Atria Right atrial chamber dimension is not well visualized. Atrial Septum Interatrial septum is not well visualized. Aortic Valve The aortic valve is not well visualized. There is no aortic valve regurgitation. Pulmonic Valve The pulmonic valve is not well visualized. Mitral Valve There is trace mitral valve regurgitation. Tricuspid Valve There is mild tricuspid valve regurgitation. Pericardium/Pleural There is no pericardial effusion. Inferior Vena Cava Inferior vena cava is not well visualized. Aorta The aortic root size at the sinus of Valsalva is normal. Left Ventricular Outflow Tract Name Value Normal LVOT 2D LVOT Diameter 2.0 cm LVOT Doppler LVOT Peak Gradient 3 mmHg LVOT Mean Gradient 1 mmHg LVOT VTI 15 cm LVOT VTI/AV VTI Ratio 0.7 LVOT Stroke Volume 45 ml LVOT CO 3.4 l/min LVOT CI 1.7 l/min/m2 Pulmonic Valve Name Value Normal RVOT Doppler RVOT Peak Gradient 2 mmHg PV Doppler PV Peak Gradient 3 mmHg Mitral Valve Name Value Normal
--- NOTE | 2023-05-04 09:36 | PM.CNCAR ---
Assessment and Plan Assessment and plan (1) Chest pain: Qualifiers: Chest pain type: other chest pain Qualified Code(s): R07.89 - Other chest pain Code(s): R07.9 - Chest pain, unspecified Status: Acute Assessment and Plan: Chest pain clinically atypical, intermittent without noted provocation. She has ruled out for myocardial infarction with negative serial troponin. As per patient description this is chronic, intermittent similar to restore chest pain. She states this generally resolves with Percocet or oxycodone. ECG without acute ischemic changes underlying sinus rhythm. No further invasive cardiovascular workup indicated at this time. Likely her chest pain is noncardiac most likely musculoskeletal. However, given history of recurrent infection, recent bacteremia with Staph epidermidis and Staph warneri, active lower extremity wound, UTI, and implanted dual chamber pacemaker this places the patient at high risk for a device infection or endocarditis. Although patient is not febrile or significant leukocytosis she has a systolic murmur not previously noted for review records and complaints of recurrent chest pain. Will assess for lead infection/pathology and/or endocarditis although less likely in this regard. Will obtain 2D echocardiogram to assess for LV function, valve pathology, pacemaker lead integrity pulmonary pressures. Appropriate recommendations after review. If no new concerning findings are observed will see patient on as needed basis and will defer likely musculoskeletal chest pain management to primary service. She will follow-up with her primary press worker helper as an outpatient post discharge. Thank you very much for this consultation. Please do not hesitate to contact us with any additional questions or concerns. (2) Acute hyperkalemia: Code(s): E87.5 - Hyperkalemia Status: Acute Assessment and Plan: Improving with rapid treatment and IV hydration. Appears secondary to acute kidney injury on lisinopril. Patient has had multiple instances of hyperkalemia in setting of acute kidney injury. I would consider an alternative to ORAL-inhibitor or ARB to minimize this risk which could potentially be life-threatening. (3) Acute on chronic kidney failure: Qualifiers: Acute renal failure type: unspecified Chronic kidney disease stage: unspecified stage Qualified Code(s): N17.9 - Acute kidney failure, unspecified; N18.9 - Chronic kidney disease, unspecified Code(s): N17.9 - Acute kidney failure, unspecified; N18.9 - Chronic kidney disease, unspecified Status: Acute Assessment and Plan: Patient presents with acute on chronic kidney injury with prerenal picture improved with IV fluids. Discontinue lisinopril of alternative antihypertensive to be considered. Monitor renal function, electrolytes, BP. Will defer to primary service in this regard based on clinical course. (4) Anemia: Qualifiers: Anemia type: unspecified type Qualified Code(s): D64.9 - Anemia, unspecified Code(s): D64.9 - Anemia, unspecified Status: Acute Assessment and Plan: Patient has severe, chronic anemia appears near her baseline for the past several months. Monitor for bleeding on Eliquis. Further management per primary service. Appropriate workup for iron deficiency or other causes. (5) Pacemaker: Code(s): Z95.0 - Presence of cardiac pacemaker Status: Acute Assessment and Plan: Precise justification for pacemaker remains unclear at this time. She is not paced since admission. This appears to been implanted by Dr. Felton with [facility] in the past. (6) UTI (urinary tract infection): Code(s): N39.0 - Urinary tract infection, site not specified Status: Acute Assessment and Plan: Continue antibiotics clinical management per primary service. She has a chronic indwelling Jenkins catheter which was changed this hospit
[2023-05-04] MEDS: SILVERGEL (ELTA) 45 ML 1 APPLIC TOPICAL (11:59)
[2023-05-04 12:10] LABS: Glucose Point of Care 131 mg/dl (65-105)
--- NOTE | 2023-05-04 13:14 | PCPTNOTE ---
Attempted PT evaluation, pt refused stating maybe tomorrow. RN aware. Will follow.
[2023-05-04 16:49] LABS: Glucose Point of Care 78 mg/dl (65-105)
--- NOTE | 2023-05-04 17:32 | PM.IMPN ---
Progress Note: A&P Assessment and Plan (1) Acute hyperkalemia: Code(s): E87.5 - Hyperkalemia Status: Acute (2) Anemia: Qualifiers: Anemia type: unspecified type Qualified Code(s): D64.9 - Anemia, unspecified Code(s): D64.9 - Anemia, unspecified Status: Acute (3) Diabetic foot infection: Code(s): E11.628 - Type 2 diabetes mellitus with other skin complications; L08.9 - Local infection of the skin and subcutaneous tissue, unspecified Status: Acute (4) Chronic kidney disease: Code(s): N18.9 - Chronic kidney disease, unspecified Status: Acute (5) Daytime hypersomnia: Code(s): G47.10 - Hypersomnia, unspecified Status: Acute (6) Epilepsy: Code(s): G40.909 - Epilepsy, unspecified, not intractable, without status epilepticus Status: Acute (7) Diastolic dysfunction: Code(s): I51.89 - Other ill-defined heart diseases Status: Acute (8) Urinary tract infection associated with catheterization of urinary tract: Code(s): T83.511A - Infection and inflammatory reaction due to indwelling urethral catheter, initial encounter; N39.0 - Urinary tract infection, site not specified Status: Acute (9) Peripheral neuropathy: Qualifiers: Peripheral neuropathy type: polyneuropathy, other Qualified Code(s): G62.89 - Other specified polyneuropathies Code(s): G62.9 - Polyneuropathy, unspecified Status: Acute (10) Hyperlipidemia: Code(s): E78.5 - Hyperlipidemia, unspecified Status: Acute (11) HTN (hypertension): Code(s): I10 - Essential (primary) hypertension Status: Chronic (12) COPD (chronic obstructive pulmonary disease): Code(s): J44.9 - Chronic obstructive pulmonary disease, unspecified Status: Acute (13) Sleep apnea: Code(s): G47.30 - Sleep apnea, unspecified Status: Acute (14) Bipolar disorder: Code(s): F31.9 - Bipolar disorder, unspecified Status: Acute (15) Anxiety: Code(s): F41.9 - Anxiety disorder, unspecified Status: Chronic (16) Pressure sore on heel, left, unstageable: Code(s): L89.620 - Pressure ulcer of left heel, unstageable Status: Acute (17) Pacemaker: Code(s): Z95.0 - Presence of cardiac pacemaker Status: Acute (18) Noncompliance: Code(s): Z91.19 - Patient's noncompliance with other medical treatment and regimen Status: Acute (19) Insulin dependent diabetes mellitus: Status: Chronic (20) Diabetes mellitus with hyperglycemia: Code(s): E11.65 - Type 2 diabetes mellitus with hyperglycemia Status: Acute (21) Morbidly obese: Code(s): E66.01 - Morbid (severe) obesity due to excess calories Status: Acute (22) Personal history of noncompliance with medical treatment and regimen: Code(s): Z91.199 - Patient's noncompliance with other medical treatment and regimen due to unspecified reason Status: Acute Plan 47-year-old female presents with chest pain while she was watching TV. Spontaneously resolved. Ongoing left heel pain. No fever cough shortness of breath lower extremity edema. Cbc without leukocytosis but noted to have hemoglobin of 6.7 mild creatinine elevation 1.4 with potassium of 6.7. Received insulin dextrose and calcium with potassium improvement down to 5.9. EKG without any acute ST-T changes. Troponin negative. UA with possible evidence of infection. She has chronic indwelling Jenkins catheter since several months. He will ulceration on the left that does look infected. She was started on antibiotics for left heel ulcer infection. Wound care consult obtained. Left foot x-ray without evidence of osteomyelitis. Recent fall with unexplained worsening anemia. CT chest abdomen pelvis with no acute traumatic process. She has moderate body wall edema. Cardiology has been consulted. Martita p.r.n. Consider GI evaluation if H
[2023-05-04] MEDS: INSULIN GLARGINE (*BKC) 100 UNITS/ML 10 UNITS SUB-Q (18:17)
[2023-05-04] MEDS: SODIUM ZIRCONIUM CYCLOSILICATE 10 GM POWD.PACK PO (18:17)
[2023-05-04] MEDS: traZODone HCL 50 MG TABLET PO (20:34)
[2023-05-04 20:42] LABS: Glucose Point of Care 97 mg/dl (65-105)
[2023-05-04] MEDS: traMADol HCL (*CRX) 50 MG TABLET 25 MG PO (21:04)
[2023-05-05] VITALS (10 sets, daily range): BP systolic 101–144; BP diastolic 48–97; PULSE 70–81; RESP 12–15; TEMP 37–37.4; O2SAT 94–98
[2023-05-05] MEDS: metroNIDAZOLE 500 MG/ISO 100ML 500 MG/100 ML BAG 100 MG IVPB ×2 (05:03→13:42)
[2023-05-05 05:13] LABS: Basophils Percent Auto 0.5 % (0.2-1.2); Eosinophils Absolute Auto 0.2 K/mm3 (0-0.3); Eosinophils Percent Auto 3.3 % (0-4.4); Hematocrit 25.8 % (37.0-47.0); Hemoglobin 7.9 g/dL (12.0-15.0); Immature Granulocyte Absolute 0.12 K/mm3 (0.00-0.031); Immature Granulocyte Percent A 1.9 % (0-0.5); Lymphocytes Absolute Auto 1.39 K/mm3 (0.9-3.2); Mean Corpuscular HGB Conc 30.6 g/dl (32-36); Mean Corpuscular Hemoglobin 28.6 pg (26-34); Mean Corpuscular Volume 93.5 fl (80-100); Mean Platelet Volume 10.3 fl (7.4-10.4); Monocytes Absolute Auto 0.9 K/mm3 (0.1-0.6); Monocytes Percent Auto 13.6 % (2.6-8.5); Neutrophils Absolute Auto 3.7 K/mm3 (1.3-6.7); Neutrophils Percent Auto 58.7 % (45.5-73.1); Nucleated Red Blood Cells Perc 0.6 % (0.0-0.2); Platelet Count Result 161 k/mm3 (150-375); Red Blood Count 2.76 M/mm3 (4.2-5.4); White Blood Count 6.3 K/mm3 (4.5-10.0)
[2023-05-05 06:33] LABS: Anion Gap 8 mmol/L (8-16); Blood Urea Nitrogen 63 mg/dL (7-17); Calcium 8.1 mg/dL (8.4-10.2); Carbon Dioxide 23 mmol/L (22-30); Chloride 106 mmol/L (98-107); Estimated Glomerular Filt Rate 53; Glucose 124 mg/dL (65-110); Potassium 5.7 mmol/L (3.4-5.0); Sodium 137 mmol/L (137-145)
[2023-05-05] MEDS: FAMOTIDINE 20 MG TABLET PO (08:24)
[2023-05-05] MEDS: APIXABAN 5 MG TABLET PO ×2 (08:24→20:01)
[2023-05-05] MEDS: FUROSEMIDE 40 MG TABLET PO ×2 (08:24→16:50)
[2023-05-05] MEDS: METOPROLOL TARTRATE 12.5 MG TABLET PO ×2 (08:24→20:01)
[2023-05-05] MEDS: CEFEPIME 1 GM/NS 50 ML 1 GM/50 ML BAG IVPB ×2 (08:24→20:17)
[2023-05-05] MEDS: GABAPENTIN 300 MG CAPSULE PO ×3 (08:24→16:50)
[2023-05-05] MEDS: LORATADINE 10 MG TABLET PO (08:24)
[2023-05-05] MEDS: FERROUS SULFATE 325 MG TABLET DR BY MOUTH ×2 (08:24→16:53)
[2023-05-05] MEDS: levETIRAcetam 500 MG TABLET PO ×2 (08:24→20:00)
[2023-05-05] MEDS: SILVERGEL (ELTA) 45 ML 1 APPLIC TOPICAL (08:25)
[2023-05-05] MEDS: INSULIN ASPART (*BKC) 100 UNITS/ML 7 UNITS SUB-Q ×3 (08:25→16:53)
[2023-05-05] MEDS: TOLNAFTATE 1% POWDER 45 GM BTL 1 APPLIC TOPICAL ×2 (08:26→21:41)
[2023-05-05] MEDS: SODIUM ZIRCONIUM CYCLOSILICATE 10 GM POWD.PACK PO (10:24)
[2023-05-05 11:28] LABS: Glucose Point of Care 150 mg/dl (65-105)
[2023-05-05 16:34] LABS: Glucose Point of Care 116 mg/dl (65-105)
--- NOTE | 2023-05-05 17:06 | PM.IMPN ---
Progress Note: A&P Assessment and Plan (1) Acute hyperkalemia: Code(s): E87.5 - Hyperkalemia Status: Acute (2) Anemia: Qualifiers: Anemia type: unspecified type Qualified Code(s): D64.9 - Anemia, unspecified Code(s): D64.9 - Anemia, unspecified Status: Acute (3) Diabetic foot infection: Code(s): E11.628 - Type 2 diabetes mellitus with other skin complications; L08.9 - Local infection of the skin and subcutaneous tissue, unspecified Status: Acute (4) Chronic kidney disease: Code(s): N18.9 - Chronic kidney disease, unspecified Status: Acute (5) Daytime hypersomnia: Code(s): G47.10 - Hypersomnia, unspecified Status: Acute (6) Epilepsy: Code(s): G40.909 - Epilepsy, unspecified, not intractable, without status epilepticus Status: Acute (7) Diastolic dysfunction: Code(s): I51.89 - Other ill-defined heart diseases Status: Acute (8) Urinary tract infection associated with catheterization of urinary tract: Code(s): T83.511A - Infection and inflammatory reaction due to indwelling urethral catheter, initial encounter; N39.0 - Urinary tract infection, site not specified Status: Acute (9) Peripheral neuropathy: Qualifiers: Peripheral neuropathy type: polyneuropathy, other Qualified Code(s): G62.89 - Other specified polyneuropathies Code(s): G62.9 - Polyneuropathy, unspecified Status: Acute (10) Hyperlipidemia: Code(s): E78.5 - Hyperlipidemia, unspecified Status: Acute (11) HTN (hypertension): Code(s): I10 - Essential (primary) hypertension Status: Chronic (12) COPD (chronic obstructive pulmonary disease): Code(s): J44.9 - Chronic obstructive pulmonary disease, unspecified Status: Acute (13) Sleep apnea: Code(s): G47.30 - Sleep apnea, unspecified Status: Acute (14) Bipolar disorder: Code(s): F31.9 - Bipolar disorder, unspecified Status: Acute (15) Anxiety: Code(s): F41.9 - Anxiety disorder, unspecified Status: Chronic (16) Pressure sore on heel, left, unstageable: Code(s): L89.620 - Pressure ulcer of left heel, unstageable Status: Acute (17) Pacemaker: Code(s): Z95.0 - Presence of cardiac pacemaker Status: Acute (18) Noncompliance: Code(s): Z91.19 - Patient's noncompliance with other medical treatment and regimen Status: Acute (19) Insulin dependent diabetes mellitus: Status: Chronic (20) Diabetes mellitus with hyperglycemia: Code(s): E11.65 - Type 2 diabetes mellitus with hyperglycemia Status: Acute (21) Morbidly obese: Code(s): E66.01 - Morbid (severe) obesity due to excess calories Status: Acute (22) Personal history of noncompliance with medical treatment and regimen: Code(s): Z91.199 - Patient's noncompliance with other medical treatment and regimen due to unspecified reason Status: Acute Plan 47-year-old female presents with chest pain while she was watching TV. Spontaneously resolved. Ongoing left heel pain. No fever cough shortness of breath lower extremity edema. Cbc without leukocytosis but noted to have hemoglobin of 6.7 mild creatinine elevation 1.4 with potassium of 6.7. Received insulin dextrose and calcium with potassium improvement down to 5.9. EKG without any acute ST-T changes. Troponin negative. UA with possible evidence of infection. She has chronic indwelling Jenkins catheter since several months. He will ulceration on the left that does look infected. She was started on antibiotics for left heel ulcer infection with cefepime vancomycin and metronidazole. Wound care consult obtained. Left foot x-ray without evidence of osteomyelitis. Will switch antibiotics to clindamycin to complete 7 days course of treatment. Recent fall with unexplained worsening anemia. CT chest abdomen pelvis with no acute traumat
[2023-05-05] MEDS: INSULIN GLARGINE (*BKC) 100 UNITS/ML 10 UNITS SUB-Q (17:44)
[2023-05-05] MEDS: CLINDAMYCIN HCL 150 MG CAP 300 MG PO ×2 (18:34→23:03)
[2023-05-05 19:57] LABS: Glucose Point of Care 82 mg/dl (65-105)
[2023-05-05] MEDS: traZODone HCL 50 MG TABLET PO (21:41)
--- NOTE | 2023-05-05 22:02 | PC.NURSE ---
This patient, Valerie Nguyen, was transferred to [[facility] Medical room 253 ] on 05/05/23 at 2050. Personal belongings sent with patient. Report given to [TYRELL Seay ]. Appropriate documentation sent with patient.
--- NOTE | 2023-05-05 22:03 | PC.NURSE ---
Notified pt's sister, Brigida ([phone]) that pt was moved to room 253.
[2023-05-06] VITALS (7 sets, daily range): BP systolic 105–144; BP diastolic 48–69; PULSE 69–78; RESP 18–20; TEMP 36.4–36.9; O2SAT 99–100
[2023-05-06] MEDS: CLINDAMYCIN HCL 150 MG CAP 300 MG PO ×3 (05:38→17:12)
[2023-05-06 06:41] LABS: Basophils Percent Auto 0.5 % (0.2-1.2); Eosinophils Absolute Auto 0.2 K/mm3 (0-0.3); Eosinophils Percent Auto 2.5 % (0-4.4); Hematocrit 26.3 % (37.0-47.0); Hemoglobin 7.5 g/dL (12.0-15.0); Immature Granulocyte Absolute 0.16 K/mm3 (0.00-0.031); Immature Granulocyte Percent A 2.6 % (0-0.5); Lymphocytes Absolute Auto 1.28 K/mm3 (0.9-3.2); Lymphocytes Percent Auto 21.1 % (18.3-44.2); Mean Corpuscular HGB Conc 28.5 g/dl (32-36); Mean Corpuscular Hemoglobin 28.7 pg (26-34); Mean Corpuscular Volume 100.8 fl (80-100); Mean Platelet Volume 10.3 fl (7.4-10.4); Monocytes Absolute Auto 0.8 K/mm3 (0.1-0.6); Monocytes Percent Auto 13.8 % (2.6-8.5); Neutrophils Absolute Auto 3.6 K/mm3 (1.3-6.7); Neutrophils Percent Auto 59.5 % (45.5-73.1); Nucleated Red Blood Cells Perc 0.5 % (0.0-0.2); Platelet Count Result 165 k/mm3 (150-375); Red Blood Count 2.61 M/mm3 (4.2-5.4); Red Cell Distribution Width 15.1 % (11.5-14.5); White Blood Count 6.1 K/mm3 (4.5-10.0)
[2023-05-06 06:52] LABS: Anion Gap 5 mmol/L (8-16); Blood Urea Nitrogen 65 mg/dL (7-17); Calcium 8.1 mg/dL (8.4-10.2); Carbon Dioxide 22 mmol/L (22-30); Chloride 106 mmol/L (98-107); Estimated Glomerular Filt Rate 59; Glucose 150 mg/dL (65-110); Magnesium 2.5 mg/dL (1.6-2.3); Potassium 5.5 mmol/L (3.4-5.0); Sodium 133 mmol/L (137-145)
--- NOTE | 2023-05-06 07:59 | PM.IMPN ---
Progress Note: A&P Assessment and Plan (1) Acute hyperkalemia: Code(s): E87.5 - Hyperkalemia Status: Acute (2) Anemia: Qualifiers: Anemia type: unspecified type Qualified Code(s): D64.9 - Anemia, unspecified Code(s): D64.9 - Anemia, unspecified Status: Acute (3) Diabetic foot infection: Code(s): E11.628 - Type 2 diabetes mellitus with other skin complications; L08.9 - Local infection of the skin and subcutaneous tissue, unspecified Status: Acute (4) Chronic kidney disease: Code(s): N18.9 - Chronic kidney disease, unspecified Status: Acute (5) Daytime hypersomnia: Code(s): G47.10 - Hypersomnia, unspecified Status: Acute (6) Epilepsy: Code(s): G40.909 - Epilepsy, unspecified, not intractable, without status epilepticus Status: Acute (7) Diastolic dysfunction: Code(s): I51.89 - Other ill-defined heart diseases Status: Acute (8) Urinary tract infection associated with catheterization of urinary tract: Code(s): T83.511A - Infection and inflammatory reaction due to indwelling urethral catheter, initial encounter; N39.0 - Urinary tract infection, site not specified Status: Acute (9) Peripheral neuropathy: Qualifiers: Peripheral neuropathy type: polyneuropathy, other Qualified Code(s): G62.89 - Other specified polyneuropathies Code(s): G62.9 - Polyneuropathy, unspecified Status: Acute (10) Hyperlipidemia: Code(s): E78.5 - Hyperlipidemia, unspecified Status: Acute (11) HTN (hypertension): Code(s): I10 - Essential (primary) hypertension Status: Chronic (12) COPD (chronic obstructive pulmonary disease): Code(s): J44.9 - Chronic obstructive pulmonary disease, unspecified Status: Acute (13) Sleep apnea: Code(s): G47.30 - Sleep apnea, unspecified Status: Acute (14) Bipolar disorder: Code(s): F31.9 - Bipolar disorder, unspecified Status: Acute (15) Anxiety: Code(s): F41.9 - Anxiety disorder, unspecified Status: Chronic (16) Pressure sore on heel, left, unstageable: Code(s): L89.620 - Pressure ulcer of left heel, unstageable Status: Acute (17) Pacemaker: Code(s): Z95.0 - Presence of cardiac pacemaker Status: Acute (18) Noncompliance: Code(s): Z91.19 - Patient's noncompliance with other medical treatment and regimen Status: Acute (19) Insulin dependent diabetes mellitus: Status: Chronic (20) Diabetes mellitus with hyperglycemia: Code(s): E11.65 - Type 2 diabetes mellitus with hyperglycemia Status: Acute (21) Morbidly obese: Code(s): E66.01 - Morbid (severe) obesity due to excess calories Status: Acute (22) Personal history of noncompliance with medical treatment and regimen: Code(s): Z91.199 - Patient's noncompliance with other medical treatment and regimen due to unspecified reason Status: Acute Plan 47-year-old female presents with chest pain while she was watching TV. Spontaneously resolved. EKG without any acute ST-T changes. Troponin negative. Cardiology has been consulted. 2D echo from September 2022 with normal EF. Repeat echo 05/04/2023: EF 65-70% mildly increased left ventricular wall thickness mild TR UA with possible evidence of infection. She has chronic indwelling Jenkins catheter since several months. Continue cefepime for now as urine culture is growing Enterobacter cloacae complex sensitivity pending Decubitus ulcer on left sienna that does look infected. She was started on antibiotics for left heel ulcer infection with cefepime vancomycin and metronidazole. Wound care consult obtained. Left foot x-ray without evidence of osteomyelitis. Will switch antibiotics to clindamycin to complete 7 days course of treatment. unexplained worsening anemia. CT chest abdomen pelvis with no acute traumati
[2023-05-06 08:35] LABS: Glucose Point of Care 147 mg/dl (65-105)
[2023-05-06] MEDS: LORATADINE 10 MG TABLET PO (09:32)
[2023-05-06] MEDS: DOCUSATE SODIUM 100 MG CAPSULE PO (09:32)
[2023-05-06] MEDS: FERROUS SULFATE 325 MG TABLET DR BY MOUTH ×2 (09:32→17:12)
[2023-05-06] MEDS: levETIRAcetam 500 MG TABLET PO ×2 (09:32→21:25)
[2023-05-06] MEDS: GABAPENTIN 300 MG CAPSULE PO ×3 (09:32→17:12)
[2023-05-06] MEDS: FAMOTIDINE 20 MG TABLET PO (09:32)
[2023-05-06] MEDS: SILVERGEL (ELTA) 45 ML 1 APPLIC TOPICAL (09:33)
[2023-05-06] MEDS: CEFEPIME 1 GM/NS 50 ML 1 GM/50 ML BAG IVPB ×2 (09:33→21:28)
[2023-05-06] MEDS: METOPROLOL TARTRATE 12.5 MG TABLET PO ×2 (09:33→21:25)
[2023-05-06] MEDS: APIXABAN 5 MG TABLET PO ×2 (09:33→21:28)
[2023-05-06] MEDS: IRON SUCROSE COMPLEX 100 MG in SODIUM CHLORIDE 0.9% IV 50 ML 220 MG IVPB (09:33)
[2023-05-06] MEDS: FUROSEMIDE 40 MG TABLET PO ×2 (09:33→17:12)
[2023-05-06] MEDS: TOLNAFTATE 1% POWDER 45 GM BTL 1 APPLIC TOPICAL ×2 (09:39→21:29)
[2023-05-06] MEDS: INSULIN ASPART (*BKC) 100 UNITS/ML 7 UNITS SUB-Q ×3 (09:42→18:06)
[2023-05-06] MEDS: SODIUM ZIRCONIUM CYCLOSILICATE 10 GM POWD.PACK PO ×2 (12:12→17:12)
[2023-05-06 12:15] LABS: Glucose Point of Care 169 mg/dl (65-105)
[2023-05-06 16:44] LABS: Glucose Point of Care 123 mg/dl (65-105)
[2023-05-06] MEDS: INSULIN GLARGINE (*BKC) 100 UNITS/ML 10 UNITS SUB-Q (18:06)
[2023-05-06 20:56] LABS: Glucose Point of Care 116 mg/dl (65-105)
[2023-05-06] MEDS: traZODone HCL 50 MG TABLET PO (21:25)
[2023-05-07] MEDS: CLINDAMYCIN HCL 150 MG CAP 300 MG PO ×2 (05:03→12:21)
[2023-05-07 05:37] LABS: Basophils Percent Auto 0.3 % (0.2-1.2); Eosinophils Absolute Auto 0.2 K/mm3 (0-0.3); Eosinophils Percent Auto 2.3 % (0-4.4); Hematocrit 26.9 % (37.0-47.0); Hemoglobin 8.1 g/dL (12.0-15.0); Immature Granulocyte Absolute 0.15 K/mm3 (0.00-0.031); Immature Granulocyte Percent A 2.3 % (0-0.5); Lymphocytes Percent Auto 21.6 % (18.3-44.2); Mean Corpuscular HGB Conc 30.1 g/dl (32-36); Mean Corpuscular Hemoglobin 28.7 pg (26-34); Mean Corpuscular Volume 95.4 fl (80-100); Mean Platelet Volume 10.2 fl (7.4-10.4); Monocytes Absolute Auto 0.8 K/mm3 (0.1-0.6); Monocytes Percent Auto 12.3 % (2.6-8.5); Neutrophils Percent Auto 61.2 % (45.5-73.1); Nucleated Red Blood Cells Perc 0.5 % (0.0-0.2); Platelet Count Result 196 k/mm3 (150-375); Red Blood Count 2.82 M/mm3 (4.2-5.4); Red Cell Distribution Width 15.1 % (11.5-14.5); White Blood Count 6.5 K/mm3 (4.5-10.0)
[2023-05-07 05:49] LABS: Anion Gap 6 mmol/L (8-16); Blood Urea Nitrogen 75 mg/dL (7-17); Calcium 8.5 mg/dL (8.4-10.2); Carbon Dioxide 25 mmol/L (22-30); Chloride 107 mmol/L (98-107); Estimated Glomerular Filt Rate 44; Glucose 114 mg/dL (65-110); Potassium 5.5 mmol/L (3.4-5.0); Sodium 138 mmol/L (137-145)
[2023-05-07 06:00] VITALS: BP 104/55; PULSE 70; RESP 21; TEMP 36.7; O2SAT 100
--- NOTE | 2023-05-07 08:05 | PM.IMPN ---
Progress Note: A&P Assessment and Plan (1) Acute hyperkalemia: Code(s): E87.5 - Hyperkalemia Status: Acute (2) Anemia: Qualifiers: Anemia type: unspecified type Qualified Code(s): D64.9 - Anemia, unspecified Code(s): D64.9 - Anemia, unspecified Status: Acute (3) Diabetic foot infection: Code(s): E11.628 - Type 2 diabetes mellitus with other skin complications; L08.9 - Local infection of the skin and subcutaneous tissue, unspecified Status: Acute (4) Chronic kidney disease: Code(s): N18.9 - Chronic kidney disease, unspecified Status: Acute (5) Daytime hypersomnia: Code(s): G47.10 - Hypersomnia, unspecified Status: Acute (6) Epilepsy: Code(s): G40.909 - Epilepsy, unspecified, not intractable, without status epilepticus Status: Acute (7) Diastolic dysfunction: Code(s): I51.89 - Other ill-defined heart diseases Status: Acute (8) Urinary tract infection associated with catheterization of urinary tract: Code(s): T83.511A - Infection and inflammatory reaction due to indwelling urethral catheter, initial encounter; N39.0 - Urinary tract infection, site not specified Status: Acute (9) Peripheral neuropathy: Qualifiers: Peripheral neuropathy type: polyneuropathy, other Qualified Code(s): G62.89 - Other specified polyneuropathies Code(s): G62.9 - Polyneuropathy, unspecified Status: Acute (10) Hyperlipidemia: Code(s): E78.5 - Hyperlipidemia, unspecified Status: Acute (11) HTN (hypertension): Code(s): I10 - Essential (primary) hypertension Status: Chronic (12) COPD (chronic obstructive pulmonary disease): Code(s): J44.9 - Chronic obstructive pulmonary disease, unspecified Status: Acute (13) Sleep apnea: Code(s): G47.30 - Sleep apnea, unspecified Status: Acute (14) Bipolar disorder: Code(s): F31.9 - Bipolar disorder, unspecified Status: Acute (15) Anxiety: Code(s): F41.9 - Anxiety disorder, unspecified Status: Chronic (16) Pressure sore on heel, left, unstageable: Code(s): L89.620 - Pressure ulcer of left heel, unstageable Status: Acute (17) Pacemaker: Code(s): Z95.0 - Presence of cardiac pacemaker Status: Acute (18) Noncompliance: Code(s): Z91.19 - Patient's noncompliance with other medical treatment and regimen Status: Acute (19) Insulin dependent diabetes mellitus: Status: Chronic (20) Diabetes mellitus with hyperglycemia: Code(s): E11.65 - Type 2 diabetes mellitus with hyperglycemia Status: Acute (21) Morbidly obese: Code(s): E66.01 - Morbid (severe) obesity due to excess calories Status: Acute (22) Personal history of noncompliance with medical treatment and regimen: Code(s): Z91.199 - Patient's noncompliance with other medical treatment and regimen due to unspecified reason Status: Acute Plan 47-year-old female presents with chest pain while she was watching TV. Spontaneously resolved. EKG without any acute ST-T changes. Troponin negative. Cardiology has been consulted. 2D echo from September 2022 with normal EF. Repeat echo 05/04/2023: EF 65-70% mildly increased left ventricular wall thickness mild TR UA with possible evidence of infection. She has chronic indwelling Jenkins catheter since several months. Patient is on cefepime for now as urine culture is growing Enterobacter cloacae complex sensitivity to Levaquin Switch from cefepime to Levaquin, will continue for 7 days course of antibiotics, last dose will be on May 10 Decubitus ulcer on left sinena that does look infected. She was started on antibiotics for left heel ulcer infection with cefepime vancomycin and metronidazole. Wound care consult obtained. Left foot x-ray without evidence of osteomyelitis. Will switch antibiotics to clindamycin to
[2023-05-07] MEDS: FERROUS SULFATE 325 MG TABLET DR BY MOUTH ×2 (08:36→16:38)
[2023-05-07 08:37] LABS: Glucose Point of Care 129 mg/dl (65-105)
[2023-05-07] MEDS: FAMOTIDINE 20 MG TABLET PO (08:37)
[2023-05-07] MEDS: levETIRAcetam 500 MG TABLET PO ×2 (08:37→20:36)
[2023-05-07 08:38] VITALS: PULSE 72
[2023-05-07] MEDS: APIXABAN 5 MG TABLET PO ×2 (08:38→20:36)
[2023-05-07] MEDS: DOCUSATE SODIUM 100 MG CAPSULE PO (08:38)
[2023-05-07] MEDS: FUROSEMIDE 40 MG TABLET PO ×2 (08:38→16:38)
[2023-05-07] MEDS: METOPROLOL TARTRATE 12.5 MG TABLET PO ×2 (08:38→20:34)
[2023-05-07] MEDS: LORATADINE 10 MG TABLET PO (08:38)
[2023-05-07 08:39] VITALS: PULSE 72; RESP 20; O2SAT 100
[2023-05-07] MEDS: GABAPENTIN 300 MG CAPSULE PO ×3 (08:39→16:38)
[2023-05-07] MEDS: CEFEPIME 1 GM/NS 50 ML 1 GM/50 ML BAG IVPB (08:41)
[2023-05-07] MEDS: TOLNAFTATE 1% POWDER 45 GM BTL 1 APPLIC TOPICAL ×2 (08:42→20:36)
[2023-05-07] MEDS: SILVERGEL (ELTA) 45 ML 1 APPLIC TOPICAL (08:42)
[2023-05-07] MEDS: INSULIN ASPART (*BKC) 100 UNITS/ML 7 UNITS SUB-Q (08:46)
[2023-05-07] MEDS: DEXTROSE 5%/0.9% SOD CHL 1,000 ML 100 ML IV CONT ×2 (09:11→21:39)
[2023-05-07] MEDS: IRON SUCROSE COMPLEX 100 MG in SODIUM CHLORIDE 0.9% IV 50 ML 220 MG IVPB (09:13)
[2023-05-07] MEDS: SODIUM ZIRCONIUM CYCLOSILICATE 10 GM POWD.PACK PO ×2 (09:18)
[2023-05-07 12:10] LABS: Glucose Point of Care 157 mg/dl (65-105)
--- NOTE | 2023-05-07 14:05 | PM.CNNEP ---
Assessment and Plan Assessment and plan (1) Acute kidney injury: Code(s): N17.9 - Acute kidney failure, unspecified Status: Acute Assessment and Plan: baseline creatinine normal from review of records, whenever she is hospitalized, she seems quite susceptible to JAYESH/ARF however, by the time of discharge of each of these hospitalizations, her renal function has usually improved to baseline given her recurrent insults and risk factors, she may have some underlying CKD despite her normal creatinine at baseline improving by trend of labs on admission presumably secondary to complex UTI in the context of chronic diuretic therapy follow repeat labs and UOP (2) Hyperkalemia: Code(s): E87.5 - Hyperkalemia Status: Acute Assessment and Plan: as noted on admission appears better but still in the higher than normal range s/p medical management and on chronic lokelma therapy if fails to improve, will proceed further testing in the form of : check urine electrolytes -r/o prerenal cause renal ultrasound - r/o obstruction check LDH, haptoglobin, LFTs - r/o hemolysis check renin and adosterone - r/o hypoaldo state check CPK - r/o rhabdo check cortisol - r/o adrenal insufficiency follow trend with serial labs (3) UTI (urinary tract infection): Code(s): N39.0 - Urinary tract infection, site not specified Status: Acute Assessment and Plan: as indicative by admission UA complicated by indwelling garner catheter this has been exchanged follow culture data on antibiotics (4) Anemia: Qualifiers: Anemia type: unspecified type Qualified Code(s): D64.9 - Anemia, unspecified Code(s): D64.9 - Anemia, unspecified Status: Acute Assessment and Plan: partly related to fluctuating kidney function(?) PRBC transfusion per protocol follow H/H (5) Insulin dependent diabetes mellitus: Status: Chronic Assessment and Plan: follow accu-checks glycemic control per marketing research intern/hospitalists I will continue to follow the patient with you while she remains hospitalized and make further recommendations as needed. Thank you for allowing me to participate in the care this patient. History of Present Illness Reason for Consult Consult date: 05/07/23 Reason for consult: acute renal failure and hyperkalemia Chief Complaint Chief complaint: Hyperkalemia, anemia, diabetic foot wound History of Present Illness Narrative: The patient is a 47-year-old female with a past medical history as outlined below who presented to [facility] Emergency room from her nursing facility for further evaluation of chest pain. She reportedly states that she had chest pain for about 45 minutes that was not resolving with conservative therapy which subsequently led to her transfer to the ER. She apparently was watching TV when the chest pain symptoms started and there were no other associated symptoms with regard to shortness of breath, diaphoresis, nausea, vomiting, or for that matter fever or chills. By the time of her arrival to the emergency room her chest pain had resolved but then had intermittent episodes while she was in the ER. She reports that her pain medications (Percocet and oxycodone) seemed to help with her chest pain discomfort in general. Workup and evaluation emergency room demonstrated the patient to be hemodynamically stable and as already mentioned, her chest pain seemed to have resolved by the time of her arrival. On further questioning, she reports that the chest pain, which appears to be somewhat intermittent in nature, was 4 out of 10 in severity, localized to the anterior chest without any other associated symptoms but reportedly with radiation to the left upper arm. Routine blood test demonstrated multiple abnormalities including significant hyperkalemia with a potassium of 6.7 and a CBC which showed a hemoglobin of
--- NOTE | 2023-05-07 14:05 | P.CONNP_ITS ---
Assessment and Plan Assessment and plan (1) Acute kidney injury: Code(s): N17.9 - Acute kidney failure, unspecified Status: Acute Assessment and Plan: * baseline creatinine normal * from review of records, whenever she is hospitalized, she seems quite susceptible to JAYESH/ARF * however, by the time of discharge of each of these hospitalizations, her renal function has usually improved to baseline * given her recurrent insults and risk factors, she may have some underlying CKD despite her normal creatinine at baseline * improving by trend of labs on admission * presumably secondary to complex UTI in the context of chronic diuretic therapy * follow repeat labs and UOP (2) Hyperkalemia: Code(s): E87.5 - Hyperkalemia Status: Acute Assessment and Plan: * as noted on admission * appears better but still in the higher than normal range * s/p medical management and on chronic lokelma therapy * if fails to improve, will proceed further testing in the form of : * check urine electrolytes -r/o prerenal cause * renal ultrasound - r/o obstruction * check LDH, haptoglobin, LFTs - r/o hemolysis * check renin and adosterone - r/o hypoaldo state * check CPK - r/o rhabdo * check cortisol - r/o adrenal insufficiency * follow trend with serial labs (3) UTI (urinary tract infection): Code(s): N39.0 - Urinary tract infection, site not specified Status: Acute Assessment and Plan: * as indicative by admission UA * complicated by indwelling garner catheter * this has been exchanged * follow culture data * on antibiotics (4) Anemia: Qualifiers: Anemia type: unspecified type Qualified Code(s): D64.9 - Anemia, unspecified Code(s): D64.9 - Anemia, unspecified Status: Acute Assessment and Plan: * partly related to fluctuating kidney function(?) * PRBC transfusion per protocol * follow H/H (5) Insulin dependent diabetes mellitus: Status: Chronic Assessment and Plan: * follow accu-checks * glycemic control per dining service supervisor/hospitalists I will continue to follow the patient with you while she remains hospitalized and make further recommendations as needed. Thank you for allowing me to participate in the care this patient. History of Present Illness Reason for Consult Consult date: 05/07/23 Reason for consult: acute renal failure and hyperkalemia Chief Complaint Chief complaint: Hyperkalemia, anemia, diabetic foot wound History of Present Illness Narrative: The patient is a 47-year-old female with a past medical history as ou tlined below who presented to [facility] Emergency room from her nursing facility for further evaluation of chest pain. She reportedly states that she had chest pain for about 45 minutes that was not resolving with conservative therapy which subsequently led to her transfer to the ER. She apparently was watching TV when the chest pain symptoms started and there were no other associated symptoms with regard to shortness of breath, diaphoresis, nausea, vomiting, or for that matter fever or chills. By the time of her arrival to the emergency room her chest pain had resolved but then had intermittent episodes while she was in the ER. She reports that her pain medications (Percocet and oxycodone) seemed to help with her chest pain discomfort in general. Workup and evaluation emergency room demonstrated the patient to be hemodynamically stable and as already mentioned, her chest pain seemed to have resolved by the time of her arri
--- NOTE | 2023-05-07 14:30 | PC.NURSE ---
On 05/07/23, the student, [Dayron Farris], provided care and completed [facility] documentation on this patient. I have reviewed the student's documentation and agree with the findings.
[2023-05-07 15:00] VITALS: BP 139/71; PULSE 75; RESP 17; TEMP 36.5; O2SAT 99
[2023-05-07 16:59] LABS: Glucose Point of Care 160 mg/dl (65-105)
[2023-05-07] MEDS: INSULIN GLARGINE (*BKC) 100 UNITS/ML 10 UNITS SUB-Q (17:08)
[2023-05-07 20:34] VITALS: PULSE 75
[2023-05-07] MEDS: traZODone HCL 50 MG TABLET PO (20:34)
[2023-05-07] MEDS: levoFLOXacin 750 MG TABLET PO (20:35)
[2023-05-07 21:33] LABS: Glucose Point of Care 181 mg/dl (65-105)
[2023-05-07 22:49] VITALS: BP 109/45; PULSE 75; RESP 21; TEMP 36.1; O2SAT 100
--- NOTE | 2023-05-08 05:42 | PC.NURSE ---
I reviewed the License Pending RN's documentation and agree with the findings.
[2023-05-08 06:00] VITALS: BP 120/70; PULSE 73; RESP 21; TEMP 36.2; O2SAT 100
[2023-05-08 06:20] LABS: Basophils Percent Auto 0.4 % (0.2-1.2); Eosinophils Absolute Auto 0.2 K/mm3 (0-0.3); Eosinophils Percent Auto 3.2 % (0-4.4); Hematocrit 25.6 % (37.0-47.0); Hemoglobin 7.5 g/dL (12.0-15.0); Immature Granulocyte Absolute 0.21 K/mm3 (0.00-0.031); Immature Granulocyte Percent A 3.8 % (0-0.5); Lymphocytes Absolute Auto 1.17 K/mm3 (0.9-3.2); Mean Corpuscular HGB Conc 29.3 g/dl (32-36); Mean Corpuscular Volume 98.8 fl (80-100); Mean Platelet Volume 10.3 fl (7.4-10.4); Monocytes Absolute Auto 0.7 K/mm3 (0.1-0.6); Monocytes Percent Auto 12.2 % (2.6-8.5); Neutrophils Absolute Auto 3.3 K/mm3 (1.3-6.7); Neutrophils Percent Auto 59.4 % (45.5-73.1); Platelet Count Result 201 k/mm3 (150-375); Red Blood Count 2.59 M/mm3 (4.2-5.4); Red Cell Distribution Width 15.6 % (11.5-14.5); White Blood Count 5.6 K/mm3 (4.5-10.0)
[2023-05-08 06:33] LABS: Alanine Aminotransferase 20 U/L (6-35); Albumin Level 3.1 g/dL (3.5-5.1); Alkaline Phosphatase 81 U/L (38-126); Anion Gap 8 mmol/L (8-16); Aspartate Amino Transferase 17 U/L (14-36); Bilirubin,Total 0.3 mg/dL (0.2-1.3); Blood Urea Nitrogen 76 mg/dL (7-17); Calcium 7.8 mg/dL (8.4-10.2); Carbon Dioxide 23 mmol/L (22-30); Chloride 107 mmol/L (98-107); Estimated Glomerular Filt Rate 48; Glucose 200 mg/dL (65-110); Potassium 5.2 mmol/L (3.4-5.0); Sodium 138 mmol/L (137-145)
[2023-05-08 07:12] LABS: Platelet Estimate Adequate (Adequate); Poikilocytosis 1+ (NORMAL)
[2023-05-08 07:13] LABS: Anisocytosis 1+ (NORMAL); Tear Drop Cells 1+ (NORMAL)
[2023-05-08 07:14] LABS: Schistocytes Rare (NORMAL)
--- NOTE | 2023-05-08 07:51 | PM.IMPN ---
Progress Note: A&P Assessment and Plan (1) Acute hyperkalemia: Code(s): E87.5 - Hyperkalemia Status: Acute (2) Anemia: Qualifiers: Anemia type: unspecified type Qualified Code(s): D64.9 - Anemia, unspecified Code(s): D64.9 - Anemia, unspecified Status: Acute (3) Diabetic foot infection: Code(s): E11.628 - Type 2 diabetes mellitus with other skin complications; L08.9 - Local infection of the skin and subcutaneous tissue, unspecified Status: Acute (4) Chronic kidney disease: Code(s): N18.9 - Chronic kidney disease, unspecified Status: Acute (5) Daytime hypersomnia: Code(s): G47.10 - Hypersomnia, unspecified Status: Acute (6) Epilepsy: Code(s): G40.909 - Epilepsy, unspecified, not intractable, without status epilepticus Status: Acute (7) Diastolic dysfunction: Code(s): I51.89 - Other ill-defined heart diseases Status: Acute (8) Urinary tract infection associated with catheterization of urinary tract: Code(s): T83.511A - Infection and inflammatory reaction due to indwelling urethral catheter, initial encounter; N39.0 - Urinary tract infection, site not specified Status: Acute (9) Peripheral neuropathy: Qualifiers: Peripheral neuropathy type: polyneuropathy, other Qualified Code(s): G62.89 - Other specified polyneuropathies Code(s): G62.9 - Polyneuropathy, unspecified Status: Acute (10) Hyperlipidemia: Code(s): E78.5 - Hyperlipidemia, unspecified Status: Acute (11) HTN (hypertension): Code(s): I10 - Essential (primary) hypertension Status: Chronic (12) COPD (chronic obstructive pulmonary disease): Code(s): J44.9 - Chronic obstructive pulmonary disease, unspecified Status: Acute (13) Sleep apnea: Code(s): G47.30 - Sleep apnea, unspecified Status: Acute (14) Bipolar disorder: Code(s): F31.9 - Bipolar disorder, unspecified Status: Acute (15) Anxiety: Code(s): F41.9 - Anxiety disorder, unspecified Status: Chronic (16) Pressure sore on heel, left, unstageable: Code(s): L89.620 - Pressure ulcer of left heel, unstageable Status: Acute (17) Pacemaker: Code(s): Z95.0 - Presence of cardiac pacemaker Status: Acute (18) Noncompliance: Code(s): Z91.19 - Patient's noncompliance with other medical treatment and regimen Status: Acute (19) Insulin dependent diabetes mellitus: Status: Chronic (20) Diabetes mellitus with hyperglycemia: Code(s): E11.65 - Type 2 diabetes mellitus with hyperglycemia Status: Acute (21) Morbidly obese: Code(s): E66.01 - Morbid (severe) obesity due to excess calories Status: Acute (22) Personal history of noncompliance with medical treatment and regimen: Code(s): Z91.199 - Patient's noncompliance with other medical treatment and regimen due to unspecified reason Status: Acute (23) Complicated UTI (urinary tract infection): Code(s): N39.0 - Urinary tract infection, site not specified Status: Acute Plan 47-year-old female presents with chest pain while she was watching TV. Spontaneously resolved. EKG without any acute ST-T changes. Troponin negative. Cardiology has been consulted. 2D echo from September 2022 with normal EF. Repeat echo 05/04/2023: EF 65-70% mildly increased left ventricular wall thickness mild TR Complicated UTI UA May 03 showed pyuria, microscopic hematuria, She has chronic indwelling Jenkins catheter since several months. Patient is on cefepime for now as urine culture is growing Enterobacter cloacae complex sensitivity to Levaquin Switch from cefepime to Levaquin, will continue for 7 days course of antibiotics, last dose will be on May 10 Decubitus ulcer on left heel that does look infected. She was started on antibiotics for left heel ulcer infecti
[2023-05-08 08:26] LABS: Glucose Point of Care 176 mg/dl (65-105)
[2023-05-08] MEDS: FERROUS SULFATE 325 MG TABLET DR BY MOUTH ×2 (09:04→17:12)
[2023-05-08] MEDS: FAMOTIDINE 20 MG TABLET PO (09:05)
[2023-05-08] MEDS: APIXABAN 5 MG TABLET PO ×2 (09:05→20:11)
[2023-05-08] MEDS: DOCUSATE SODIUM 100 MG CAPSULE PO (09:05)
[2023-05-08] MEDS: LORATADINE 10 MG TABLET PO (09:06)
[2023-05-08] MEDS: GABAPENTIN 300 MG CAPSULE PO ×3 (09:06→17:12)
[2023-05-08] MEDS: levETIRAcetam 500 MG TABLET PO ×2 (09:06→20:11)
[2023-05-08 09:07] VITALS: PULSE 72
[2023-05-08] MEDS: METOPROLOL TARTRATE 12.5 MG TABLET PO ×2 (09:07→21:44)
[2023-05-08] MEDS: FUROSEMIDE 40 MG TABLET PO ×2 (09:07→17:12)
[2023-05-08] MEDS: SILVERGEL (ELTA) 45 ML 1 APPLIC TOPICAL (09:07)
[2023-05-08] MEDS: TOLNAFTATE 1% POWDER 45 GM BTL 1 APPLIC TOPICAL ×2 (09:07→20:11)
[2023-05-08] MEDS: INSULIN ASPART (*BKC) 100 UNITS/ML 7 UNITS SUB-Q ×2 (09:08→12:21)
--- NOTE | 2023-05-08 11:00 | P.PNNP_ITS ---
Progress Note: A&P Assessment and Plan (1) Acute kidney injury: Code(s): N17.9 - Acute kidney failure, unspecified Status: Acute Assessment and Plan: * baseline creatinine normal * from review of records, whenever she is hospitalized, she seems quite susceptible to JAYESH/ARF * however, by the time of discharge of each of these hospitalizations, her renal function has usually improved to baseline * given her recurrent insults and risk factors, she may have some underlying CKD despite her normal creatinine at baseline * improving by trend of labs on admission * presumably secondary to complex UTI in the context of chronic diuretic therapy * follow repeat labs and UOP (2) Hyperkalemia: Code(s): E87.5 - Hyperkalemia Status: Acute Assessment and Plan: * as noted on admission * appears better but still in the higher than normal range * s/p medical management and on chronic lokelma therapy * given persistence, will proceed further testing in the form of : * check urine electrolytes - r/o prerenal cause * renal ultrasound - r/o obstruction * check LDH, haptoglobin, LFTs - r/o hemolysis * check renin and adosterone - r/o hypoaldo state * check CPK - r/o rhabdo * check cortisol - r/o adrenal insufficiency * follow trend with serial labs (3) UTI (urinary tract infection): Code(s): N39.0 - Urinary tract infection, site not specified Status: Acute Assessment and Plan: * as indicative by admission UA * complicated by indwelling garner catheter * this has been exchanged * follow culture data - urine culture with Enterobacter cloacae complex * on antibiotics (4) Anemia: Qualifiers: Anemia type: unspecified type Qualified Code(s): D64.9 - Anemia, unspecified Code(s): D64.9 - Anemia, unspecified Status: Acute Assessment and Plan: * partly related to fluctuating kidney function(?) * PRBC transfusion per protocol * follow H/H (5) Insulin dependent diabetes mellitus: Status: Chronic Assessment and Plan: * follow accu-checks * glycemic control per hospitalists Will continue to follow Subjective Date/time seen: 05/08/23 11:00 Interval history: Follow-up for hyperkalemia and acute kidney injury/acute renal failure. No acute issues or complaints voiced at the time of my visit; renal function as well as potassium level are slowly improving; no events overnight or earlier this morning; no apparent distress expressed currently; eating and drinking okay. Exam Narrative: General: large female in NAD Heart: normal S1 and S2; no rub Lungs: clear anteriorly with a few crackles at bases Abdomen: obese but soft, nontender, nondistended, positive bowel sounds Extremities: no cyanosis or clubbing; trace edema Skin: left heel ulcer noted Objective Data Vital Signs Vital Signs: Vital Signs Temp Pulse Resp BP Pulse Ox O2 Del Method 05/08/23 09:01 Room Air 05/08/23 09:07 72 05/08/23 06:00 97.1 F L 73 21 H 120/70 100 05/07/23 22:49 97.0 F L 75 21 H 109/45 L 100 05/07/23 20:00 Room Air 05/07/23 20:34 75 05/07/23 15:00 97.7 F 75 17 139/71 99 Intake/Output Intake/Output: Intake & Output 05/05/2305/06
--- NOTE | 2023-05-08 11:00 | PM.PNNEP ---
Progress Note: A&P Assessment and Plan (1) Acute kidney injury: Code(s): N17.9 - Acute kidney failure, unspecified Status: Acute Assessment and Plan: baseline creatinine normal from review of records, whenever she is hospitalized, she seems quite susceptible to JAYESH/ARF however, by the time of discharge of each of these hospitalizations, her renal function has usually improved to baseline given her recurrent insults and risk factors, she may have some underlying CKD despite her normal creatinine at baseline improving by trend of labs on admission presumably secondary to complex UTI in the context of chronic diuretic therapy follow repeat labs and UOP (2) Hyperkalemia: Code(s): E87.5 - Hyperkalemia Status: Acute Assessment and Plan: as noted on admission appears better but still in the higher than normal range s/p medical management and on chronic lokelma therapy given persistence, will proceed further testing in the form of : check urine electrolytes - r/o prerenal cause renal ultrasound - r/o obstruction check LDH, haptoglobin, LFTs - r/o hemolysis check renin and adosterone - r/o hypoaldo state check CPK - r/o rhabdo check cortisol - r/o adrenal insufficiency follow trend with serial labs (3) UTI (urinary tract infection): Code(s): N39.0 - Urinary tract infection, site not specified Status: Acute Assessment and Plan: as indicative by admission UA complicated by indwelling garner catheter this has been exchanged follow culture data - urine culture with Enterobacter cloacae complex on antibiotics (4) Anemia: Qualifiers: Anemia type: unspecified type Qualified Code(s): D64.9 - Anemia, unspecified Code(s): D64.9 - Anemia, unspecified Status: Acute Assessment and Plan: partly related to fluctuating kidney function(?) PRBC transfusion per protocol follow H/H (5) Insulin dependent diabetes mellitus: Status: Chronic Assessment and Plan: follow accu-checks glycemic control per hospitalists Will continue to follow Subjective Date/time seen: 05/08/23 11:00 Interval history: Follow-up for hyperkalemia and acute kidney injury/acute renal failure. No acute issues or complaints voiced at the time of my visit; renal function as well as potassium level are slowly improving; no events overnight or earlier this morning; no apparent distress expressed currently; eating and drinking okay. Exam Narrative: General: large female in NAD Heart: normal S1 and S2; no rub Lungs: clear anteriorly with a few crackles at bases Abdomen: obese but soft, nontender, nondistended, positive bowel sounds Extremities: no cyanosis or clubbing; trace edema Skin: left heel ulcer noted Objective Data Vital Signs Vital Signs: Vital Signs Temp Pulse Resp BP Pulse Ox O2 Del Method 05/08/23 09:01 Room Air 05/08/23 09:07 72 05/08/23 06:00 97.1 F L 73 21 H 120/70 100 05/07/23 22:49 97.0 F L 75 21 H 109/45 L 100 05/07/23 20:00 Room Air 05/07/23 20:34 75 05/07/23 15:00 97.7 F 75 17 139/71 99 Intake/Output Intake/Output: Intake & Output 05/05/23 05/06/23 05/07/23 05/08/23 23:59 23:59 23:59 23:59 Intake Total 1900 2145 4755 1775 Output Total 3200 2700 2700 1650 Balance -1300 -555 2055 125 Meds/Results Medications: Active Medications Generic Name Dose Route Start Last Admin Trade Name Freq PRN Reason Stop Dose Admin Acetaminophen 650 mg 05/04/23 20:50 Acetaminophen 325 Mg Tablet PO Q6H PRN Pain or Fever Albuterol 2 puff 05/04/23 05:22 Albuterol Sulfate (*Sp) Aerosol 1 Puff INHALATION Q4H PRN Shortness Of Breath Alprazolam 1 mg 05/04/23 05:22 Alprazolam (*Crx) 0.5 Mg Tablet PO TID PRN Anxiety Apixaban 5 mg 05/04/23 09:00 05/08/23 09:05 Apixaban 5 Mg Tablet PO
[2023-05-08] MEDS: IRON SUCROSE COMPLEX 100 MG in SODIUM CHLORIDE 0.9% IV 50 ML 220 MG IVPB (11:25)
[2023-05-08] MEDS: SODIUM ZIRCONIUM CYCLOSILICATE 10 GM POWD.PACK PO (11:26)
[2023-05-08 12:03] LABS: Glucose Point of Care 129 mg/dl (65-105)
[2023-05-08 14:00] VITALS: BP 110/71; PULSE 76; RESP 18; TEMP 36.3; O2SAT 100
[2023-05-08 17:15] LABS: Glucose Point of Care 47 mg/dl (65-105)
[2023-05-08 17:15] LABS: Glucose Point of Care 56 mg/dl (65-105)
[2023-05-08 17:15] LABS: Glucose Point of Care 49 mg/dl (65-105)
[2023-05-08 17:28] LABS: Eosinophil Urine Rare % (None Seen); Urine Eos QC 2nd Tech Confirmed
[2023-05-08 17:49] LABS: Glucose Point of Care 59 mg/dl (65-105)
[2023-05-08 18:14] LABS: Glucose Point of Care 91 mg/dl (65-105)
[2023-05-08 19:24] LABS: Creatinine Urine 25.6 mg/dL; Urea Random Urine 560 MG/DL
[2023-05-08 19:26] LABS: Sodium Urine Random 51 meq/L
--- NOTE | 2023-05-08 19:27 | PC.NURSE ---
Evening blood sugar was noted to be 56. Provider notified and orders received. Patient refused glucose gel per protocol and 4oz of apple juice was given. At the reassessment 30mins later, blood sugar was 59. Protocol repeated with 4oz of apple juice. Blood sugar resolved to 91 at 1811.
[2023-05-08 19:29] LABS: Glucose Point of Care 86 mg/dl (65-105)
[2023-05-08] MEDS: levoFLOXacin 750 MG TABLET PO (20:11)
[2023-05-08] MEDS: traZODone HCL 50 MG TABLET PO (20:11)
[2023-05-08 21:43] VITALS: BP 108/57; PULSE 75
[2023-05-08 21:44] VITALS: PULSE 75
[2023-05-08 22:00] VITALS: BP 119/64; PULSE 74; RESP 18; TEMP 36.3; O2SAT 99
[2023-05-08] MEDS: ACETAMINOPHEN 325 MG TABLET 650 MG PO (22:15)
[2023-05-08] MEDS: ALPRAZolam (*CRX) 0.5 MG TABLET 1 MG PO (22:15)
[2023-05-08 22:33] LABS: Glucose Point of Care 105 mg/dl (65-105)
[2023-05-09 05:50] LABS: Alanine Aminotransferase 36 U/L (6-35); Albumin Level 3.4 g/dL (3.5-5.1); Alkaline Phosphatase 114 U/L (38-126); Anion Gap 6 mmol/L (8-16); Aspartate Amino Transferase 41 U/L (14-36); Bilirubin,Total 0.3 mg/dL (0.2-1.3); Blood Urea Nitrogen 79 mg/dL (7-17); Calcium 8.3 mg/dL (8.4-10.2); Carbon Dioxide 26 mmol/L (22-30); Chloride 106 mmol/L (98-107); Creatine Kinase < 20 U/L (30-135); Estimated Glomerular Filt Rate 44; Glucose 106 mg/dL (65-110); Lactate Dehydrogenase 246 U/L (120-246); Potassium 5.2 mmol/L (3.4-5.0); Sodium 138 mmol/L (137-145)
[2023-05-09 06:00] VITALS: BP 108/61; PULSE 75; RESP 18; TEMP 36.3; O2SAT 95
[2023-05-09 07:07] LABS: Glucose Point of Care 104 mg/dl (65-105)
[2023-05-09 08:25] LABS: Glucose Point of Care 114 mg/dl (65-105)
[2023-05-09 08:35] VITALS: BP 124/69; PULSE 72
[2023-05-09] MEDS: FERROUS SULFATE 325 MG TABLET DR BY MOUTH ×2 (08:35→17:24)
[2023-05-09] MEDS: APIXABAN 5 MG TABLET PO ×2 (08:36→21:25)
[2023-05-09] MEDS: FUROSEMIDE 40 MG TABLET PO (08:36)
[2023-05-09] MEDS: GABAPENTIN 300 MG CAPSULE PO ×3 (08:36→17:24)
[2023-05-09] MEDS: FAMOTIDINE 20 MG TABLET PO (08:36)
[2023-05-09] MEDS: DOCUSATE SODIUM 100 MG CAPSULE PO (08:36)
[2023-05-09 08:37] VITALS: PULSE 72
[2023-05-09] MEDS: levETIRAcetam 500 MG TABLET PO ×2 (08:37→21:25)
[2023-05-09] MEDS: LORATADINE 10 MG TABLET PO (08:37)
[2023-05-09] MEDS: METOPROLOL TARTRATE 12.5 MG TABLET PO ×2 (08:37→21:25)
[2023-05-09] MEDS: SILVERGEL (ELTA) 45 ML 1 APPLIC TOPICAL (08:38)
[2023-05-09] MEDS: TOLNAFTATE 1% POWDER 45 GM BTL 1 APPLIC TOPICAL ×2 (08:38→21:29)
--- NOTE | 2023-05-09 09:00 | P.PNIM_ITS ---
Progress Note: A&P Assessment and Plan (1) Acute hyperkalemia: Code(s): E87.5 - Hyperkalemia Status: Acute (2) Anemia: Qualifiers: Anemia type: unspecified type Qualified Code(s): D64.9 - Anemia, unspecified Code(s): D64.9 - Anemia, unspecified Status: Acute (3) Diabetic foot infection: Code(s): E11.628 - Type 2 diabetes mellitus with other skin complications; L08.9 - Local infection of the skin and subcutaneous tissue, unspecified Status: Acute (4) Chronic kidney disease: Code(s): N18.9 - Chronic kidney disease, unspecified Status: Acute (5) Daytime hypersomnia: Code(s): G47.10 - Hypersomnia, unspecified Status: Acute (6) Epilepsy: Code(s): G40.909 - Epilepsy, unspecified, not intractable, without status epilepticus Status: Acute (7) Diastolic dysfunction: Code(s): I51.89 - Other ill-defined heart diseases Status: Acute (8) Urinary tract infection associated with catheterization of urinary tract: Code(s): T83.511A - Infection and inflammatory reaction due to indwelling urethral dejuan ter, initial encounter; N39.0 - Urinary tract infection, site not specified Status: Acute (9) Peripheral neuropathy: Qualifiers: Peripheral neuropathy type: polyneuropathy, other Qualified Code(s): G62.89 - Other specified polyneuropathies Code(s): G62.9 - Polyneuropathy, unspecified Status: Acute (10) Hyperlipidemia: Code(s): E78.5 - Hyperlipidemia, unspecified Status: Acute (11) HTN (hypertension): Code(s): I10 - Essential (primary) hypertension Status: Chronic (12) COPD (chronic obstructive pulmonary disease): Code(s): J44.9 - Chronic obstructive pulmonary disease, unspecified Status: Acute (13) Sleep apnea: Code(s): G47.30 - Sleep apnea, unspecified Status: Acute (14) Bipolar disorder: Code(s): F31.9 - Bipolar disorder, unspecified Status: Acute (15) Anxiety: Code(s): F41.9 - Anxiety disorder, unspecified Status: Chronic (16) Pressure sore on heel, left, unstageable: Code(s): L89.620 - Pressure ulcer of left heel, unstageable Status: Acute (17) Pacemaker: Code(s): Z95.0 - Presence of cardiac pacemaker Status: Acute (18) Noncompliance: Code(s): Z91.19 - Patient's noncompliance with other medical treatment and regimen Status: Acute (19) Insulin dependent diabetes mellitus: Status: Chronic (20) Diabetes mellitus with hyperglycemia: Code(s): E11.65 - Type 2 diabetes mellitus with hyperglycemia Status: Acute (21) Morbidly obese: Code(s): E66.01 - Morbid (severe) obesity due to excess calories Status: Acute (22) Personal history of noncompliance with medical treatment and regimen: Code(s): Z91.199 - Patient's noncompliance with other medical treatment and regimen due to unspecified reason Status: Acute (23) Complicated UTI (urinary tract infection): Code(s): N39.0 - Urinary tract infection, site not specified Status: Acute Plan 47-year-old female presents with chest pain while she was watching TV. Spontaneously resolved. EKG without any acute ST-T changes. Troponin negative. Cardiology has been consulted. 2D echo from September 2022 with normal EF. Repeat echo 05/04/2023: EF 65-70% mildly increased left ventricular wall thickness mild TR Complicated UTI UA May 03 showed p
[2023-05-09] MEDS: SODIUM ZIRCONIUM CYCLOSILICATE 10 GM POWD.PACK PO (11:05)
[2023-05-09] MEDS: DEXTROSE 5%/0.9% SOD CHL 1,000 ML 100 ML IV CONT ×2 (11:05→21:23)
[2023-05-09 12:03] LABS: Glucose Point of Care 191 mg/dl (65-105)
[2023-05-09] MEDS: INSULIN ASPART (*BKC) 100 UNITS/ML 7 UNITS SUB-Q ×2 (12:16→17:24)
--- NOTE | 2023-05-09 12:17 | P.PNNP_ITS ---
Progress Note: A&P Assessment and Plan (1) Acute kidney injury: Code(s): N17.9 - Acute kidney failure, unspecified Status: Acute Assessment and Plan: * baseline creatinine normal * from review of records, whenever she is hospitalized, she seems quite susceptible to JAYESH/ARF * however, by the time of discharge of each of these hospitalizations, her renal function has usually improved to baseline * given her recurrent insults and risk factors, she may have some underlying CKD despite her normal creatinine at baseline * presumably secondary to complex UTI in the context of chronic diuretic therapy * follow repeat labs and UOP (2) Hyperkalemia: Code(s): E87.5 - Hyperkalemia Status: Acute Assessment and Plan: * as noted on admission * appears better but still in the higher than normal range * s/p medical management and on chronic lokelma therapy * evaluation to date * FeNA is slightly prerenal * renal ultrasound w/o obstruction * LFTs mildly elevated * renin and aldosterone pending * CPK low * cortisol low end of normal - consider checking stim test * follow trend with serial labs (3) UTI (urinary tract infection): Code(s): N39.0 - Urinary tract infection, site not specified Status: Acute Assessment and Plan: * as indicative by admission UA * complicated by indwelling garner catheter * this has been exchanged * follow culture data - urine culture with Enterobacter cloacae complex * on antibiotics (4) Anemia: Qualifiers: Anemia type: unspecified type Qualified Code(s): D64.9 - Anemia, unspecified Code(s): D64.9 - Anemia, unspecified Status: Acute Assessment and Plan: * partly related to fluctuating kidney function(?) * PRBC transfusion per protocol * follow H/H (5) Insulin dependent diabetes mellitus: Status: Chronic Assessment and Plan: * follow accu-checks * glycemic control per hospitalists Will continue to follow Subjective Date/time seen: 05/09/23 12:17 Interval history: Follow-up for hyperkalemia and acute kidney injury/acute renal failure. Issues with hypoglycemia so started on dextrose IVFs to help with this; potassium and renal function stable (but not really any better); no apparent distress noted at the time of my visit; no other issues/events overnight or earlier this AM. Exam Narrative: General: large female in NAD Heart: normal S1 and S2; no rub Lungs: clear anteriorly with a few crackles at bases Abdomen: obese but soft, nontender, nondistended, positive bowel sounds Extremities: no cyanosis or clubbing; trace edema Skin: left heel ulcer with dressings in place Objective Data Vital Signs Vital Signs: Vital Signs Temp Pulse Resp BP Pulse Ox O2 Del Method 05/09/23 11:58 97.1 F L 70 18 117/63 100 05/09/23 08:25 Room Air 05/09/23 08:37 72 05/09/23 08:35 72 124/69 05/09/23 06:00 97.3 F L 75 18 108/61 95 05/08/23 22:00 97.3 F L 74 18 119/64 99 05/08/23 21:44 75 05/08/23 21:43 75 108/57 L 05/08/23 20:00 Room Air Intake/Output Intake/Output: Intake & Output 05/06/23 05/07/23 05/08/23 05/09/23 23:59 23:59 23:59
--- NOTE | 2023-05-09 12:17 | PM.PNNEP ---
Progress Note: A&P Assessment and Plan (1) Acute kidney injury: Code(s): N17.9 - Acute kidney failure, unspecified Status: Acute Assessment and Plan: baseline creatinine normal from review of records, whenever she is hospitalized, she seems quite susceptible to JAYESH/ARF however, by the time of discharge of each of these hospitalizations, her renal function has usually improved to baseline given her recurrent insults and risk factors, she may have some underlying CKD despite her normal creatinine at baseline presumably secondary to complex UTI in the context of chronic diuretic therapy follow repeat labs and UOP (2) Hyperkalemia: Code(s): E87.5 - Hyperkalemia Status: Acute Assessment and Plan: as noted on admission appears better but still in the higher than normal range s/p medical management and on chronic lokelma therapy evaluation to date FeNA is slightly prerenal renal ultrasound w/o obstruction LFTs mildly elevated renin and aldosterone pending CPK low cortisol low end of normal - consider checking stim test follow trend with serial labs (3) UTI (urinary tract infection): Code(s): N39.0 - Urinary tract infection, site not specified Status: Acute Assessment and Plan: as indicative by admission UA complicated by indwelling garner catheter this has been exchanged follow culture data - urine culture with Enterobacter cloacae complex on antibiotics (4) Anemia: Qualifiers: Anemia type: unspecified type Qualified Code(s): D64.9 - Anemia, unspecified Code(s): D64.9 - Anemia, unspecified Status: Acute Assessment and Plan: partly related to fluctuating kidney function(?) PRBC transfusion per protocol follow H/H (5) Insulin dependent diabetes mellitus: Status: Chronic Assessment and Plan: follow accu-checks glycemic control per hospitalists Will continue to follow Subjective Date/time seen: 05/09/23 12:17 Interval history: Follow-up for hyperkalemia and acute kidney injury/acute renal failure. Issues with hypoglycemia so started on dextrose IVFs to help with this; potassium and renal function stable (but not really any better); no apparent distress noted at the time of my visit; no other issues/events overnight or earlier this AM. Exam Narrative: General: large female in NAD Heart: normal S1 and S2; no rub Lungs: clear anteriorly with a few crackles at bases Abdomen: obese but soft, nontender, nondistended, positive bowel sounds Extremities: no cyanosis or clubbing; trace edema Skin: left heel ulcer with dressings in place Objective Data Vital Signs Vital Signs: Vital Signs Temp Pulse Resp BP Pulse Ox O2 Del Method 05/09/23 11:58 97.1 F L 70 18 117/63 100 05/09/23 08:25 Room Air 05/09/23 08:37 72 05/09/23 08:35 72 124/69 05/09/23 06:00 97.3 F L 75 18 108/61 95 05/08/23 22:00 97.3 F L 74 18 119/64 99 05/08/23 21:44 75 05/08/23 21:43 75 108/57 L 05/08/23 20:00 Room Air Intake/Output Intake/Output: Intake & Output 05/06/23 05/07/23 05/08/23 05/09/23 23:59 23:59 23:59 23:59 Intake Total 2145 4755 2875 520 Output Total 2700 2700 2250 3700 Balance -555 2055 258 -3390 Meds/Results Medications: Active Medications Generic Name Dose Route Start Last Admin Trade Name Freq PRN Reason Stop Dose Admin Acetaminophen 650 mg 05/04/23 20:50 05/08/23 22:15 Acetaminophen 325 Mg Tablet PO 650 mg Q6H PRN Administration Pain or Fever Albuterol 2 puff 05/04/23 05:22 Albuterol Sulfate (*Sp) Aerosol 1 Puff INHALATION Q4H PRN Shortness Of Breath Alprazolam 1 mg 05/04/23 05:22 05/08/23 22:15 Alprazolam (*Crx) 0.5 Mg Tablet PO 1 mg TID PRN Administration Anxiety Apixaban 5 mg 05/04/23 09:00 05/09/23 08:36 Apixaban 5 Mg Tablet P
[2023-05-09 14:58] VITALS: BP 117/63; PULSE 70; RESP 18; TEMP 36.2; O2SAT 100
[2023-05-09 16:50] LABS: Glucose Point of Care 173 mg/dl (65-105)
[2023-05-09] MEDS: INSULIN GLARGINE (*BKC) 100 UNITS/ML 10 UNITS SUB-Q (17:25)
[2023-05-09 19:56] VITALS: BP 115/63; PULSE 73; RESP 16; TEMP 36.5; O2SAT 100
[2023-05-09 20:08] LABS: Glucose Point of Care 131 mg/dl (65-105)
[2023-05-09 21:25] VITALS: PULSE 68
[2023-05-09] MEDS: levoFLOXacin 750 MG TABLET PO (21:25)
[2023-05-09] MEDS: traZODone HCL 50 MG TABLET PO (21:32)
[2023-05-10 04:05] VITALS: BP 117/64; PULSE 73; RESP 16; TEMP 37.1; O2SAT 99
[2023-05-10 05:42] LABS: Basophils Percent Auto 0.3 % (0.2-1.2); Eosinophils Absolute Auto 0.2 K/mm3 (0-0.3); Eosinophils Percent Auto 3.3 % (0-4.4); Hematocrit 24.8 % (37.0-47.0); Hemoglobin 7.3 g/dL (12.0-15.0); Immature Granulocyte Absolute 0.09 K/mm3 (0.00-0.031); Immature Granulocyte Percent A 1.5 % (0-0.5); Lymphocytes Absolute Auto 1.14 K/mm3 (0.9-3.2); Lymphocytes Percent Auto 19.1 % (18.3-44.2); Mean Corpuscular HGB Conc 29.4 g/dl (32-36); Mean Corpuscular Hemoglobin 28.5 pg (26-34); Mean Corpuscular Volume 96.9 fl (80-100); Mean Platelet Volume 9.9 fl (7.4-10.4); Monocytes Absolute Auto 0.6 K/mm3 (0.1-0.6); Monocytes Percent Auto 10.4 % (2.6-8.5); Neutrophils Absolute Auto 3.9 K/mm3 (1.3-6.7); Neutrophils Percent Auto 65.4 % (45.5-73.1); Platelet Count Result 214 k/mm3 (150-375); Red Blood Count 2.56 M/mm3 (4.2-5.4); Red Cell Distribution Width 15.9 % (11.5-14.5)
[2023-05-10 05:55] LABS: Alanine Aminotransferase 33 U/L (6-35); Albumin Level 3.2 g/dL (3.5-5.1); Alkaline Phosphatase 103 U/L (38-126); Anion Gap 5 mmol/L (8-16); Aspartate Amino Transferase 30 U/L (14-36); Bilirubin,Total 0.2 mg/dL (0.2-1.3); Blood Urea Nitrogen 77 mg/dL (7-17); Calcium 8.1 mg/dL (8.4-10.2); Carbon Dioxide 25 mmol/L (22-30); Chloride 108 mmol/L (98-107); Estimated Glomerular Filt Rate 40; Glucose 116 mg/dL (65-110); Potassium 5.1 mmol/L (3.4-5.0); Sodium 138 mmol/L (137-145)
[2023-05-10 06:06] LABS: Platelet Estimate Adequate (Adequate)
[2023-05-10 06:07] LABS: Anisocytosis 1+ (NORMAL); Schistocytes None Seen (NORMAL)
[2023-05-10 08:11] LABS: Glucose Point of Care 132 mg/dl (65-105)
[2023-05-10] MEDS: APIXABAN 5 MG TABLET PO (09:14)
[2023-05-10] MEDS: FERROUS SULFATE 325 MG TABLET DR BY MOUTH (09:14)
[2023-05-10] MEDS: GABAPENTIN 300 MG CAPSULE PO ×2 (09:15→12:35)
[2023-05-10] MEDS: FAMOTIDINE 20 MG TABLET PO (09:15)
[2023-05-10] MEDS: DOCUSATE SODIUM 100 MG CAPSULE PO (09:15)
[2023-05-10 09:16] VITALS: PULSE 71
[2023-05-10] MEDS: TOLNAFTATE 1% POWDER 45 GM BTL 1 APPLIC TOPICAL (09:16)
[2023-05-10] MEDS: SILVERGEL (ELTA) 45 ML 1 APPLIC TOPICAL (09:16)
[2023-05-10] MEDS: LORATADINE 10 MG TABLET PO (09:16)
[2023-05-10] MEDS: levETIRAcetam 500 MG TABLET PO (09:16)
[2023-05-10] MEDS: METOPROLOL TARTRATE 12.5 MG TABLET PO (09:16)
[2023-05-10] MEDS: INSULIN ASPART (*BKC) 100 UNITS/ML 7 UNITS SUB-Q ×3 (09:17→16:56)
--- NOTE | 2023-05-10 10:46 | PM.PNNEP ---
Progress Note: A&P Assessment and Plan (1) Acute kidney injury: Code(s): N17.9 - Acute kidney failure, unspecified Status: Acute Assessment and Plan: baseline creatinine normal from review of records, whenever she is hospitalized, she seems quite susceptible to JAYESH/ARF however, by the time of discharge of each of these hospitalizations, her renal function has usually improved to baseline given her recurrent insults and risk factors, she may have some underlying CKD despite her normal creatinine at baseline presumably secondary to complex UTI in the context of chronic diuretic therapy follow repeat labs and UOP (2) Hyperkalemia: Code(s): E87.5 - Hyperkalemia Status: Acute Assessment and Plan: as noted on admission appears better but still in the higher than normal range s/p medical management and on chronic lokelma therapy evaluation to date FeNA is slightly prerenal renal ultrasound w/o obstruction LFTs improving renin and aldosterone pending CPK low cortisol low end of normal - consider checking stim test possible distal RTA given her known history of diabetes(?) follow trend with serial labs (3) UTI (urinary tract infection): Code(s): N39.0 - Urinary tract infection, site not specified Status: Acute Assessment and Plan: as indicative by admission UA complicated by indwelling garner catheter this has been exchanged follow culture data - urine culture with Enterobacter cloacae complex on antibiotics (4) Anemia: Qualifiers: Anemia type: unspecified type Qualified Code(s): D64.9 - Anemia, unspecified Code(s): D64.9 - Anemia, unspecified Status: Acute Assessment and Plan: partly related to fluctuating kidney function(?) PRBC transfusion per protocol follow H/H (5) Insulin dependent diabetes mellitus: Status: Chronic Assessment and Plan: follow accu-checks glycemic control per hospitalists Will continue to follow Subjective Date/time seen: 05/10/23 10:46 Interval history: Follow-up for hyperkalemia and acute kidney injury/acute renal failure. Potassium stable if not better and renal function about the same; blood sugars seem to be doing better as well; anxious for discharge when seen; no apparent distress noted; no issues/events overnight or earlier this morning. Exam Narrative: General: large female in NAD Heart: normal S1 and S2; no rub Lungs: clear anteriorly with a few crackles at bases Abdomen: obese but soft, nontender, nondistended, positive bowel sounds Extremities: no cyanosis or clubbing; trace edema Skin: left heel ulcer present Objective Data Vital Signs Vital Signs: Vital Signs Temp Pulse Resp BP Pulse Ox O2 Del Method 05/10/23 09:09 Room Air 05/10/23 09:16 71 05/10/23 04:05 98.7 F 73 16 117/64 99 05/09/23 21:25 68 05/09/23 19:56 97.7 F 73 16 115/63 100 05/09/23 14:58 97.1 F L 70 18 117/63 100 Intake/Output Intake/Output: Intake & Output 05/07/23 05/08/23 05/09/23 05/10/23 23:59 23:59 23:59 23:59 Intake Total 4755 2875 2280 630 Output Total 2700 2250 4350 600 Balance 3615 354 -9152 30 Meds/Results Medications: Active Medications Generic Name Dose Route Start Last Admin Trade Name Freq PRN Reason Stop Dose Admin Acetaminophen 650 mg 05/04/23 20:50 05/08/23 22:15 Acetaminophen 325 Mg Tablet PO 650 mg Q6H PRN Administration Pain or Fever Albuterol 2 puff 05/04/23 05:22 Albuterol Sulfate (*Sp) Aerosol 1 Puff INHALATION Q4H PRN Shortness Of Breath Alprazolam 1 mg 05/04/23 05:22 05/08/23 22:15 Alprazolam (*Crx) 0.5 Mg Tablet PO 1 mg TID PRN Administration Anxiety Apixaban 5 mg 05/04/23 09:00 05/10/23 09:14 Apixaban 5 Mg Tablet PO 5 mg Q12HR RAMONE Administration Bisacodyl 10 mg 05/04/23 05:22 Bisacod
--- NOTE | 2023-05-10 10:46 | P.PNNP_ITS ---
Progress Note: A&P Assessment and Plan (1) Acute kidney injury: Code(s): N17.9 - Acute kidney failure, unspecified Status: Acute Assessment and Plan: * baseline creatinine normal * from review of records, whenever she is hospitalized, she seems quite susceptible to JAYESH/ARF * however, by the time of discharge of each of these hospitalizations, her renal function has usually improved to baseline * given her recurrent insults and risk factors, she may have some underlying CKD despite her normal creatinine at baseline * presumably secondary to complex UTI in the context of chronic diuretic therapy * follow repeat labs and UOP (2) Hyperkalemia: Code(s): E87.5 - Hyperkalemia Status: Acute Assessment and Plan: * as noted on admission * appears better but still in the higher than normal range * s/p medical management and on chronic lokelma therapy * evaluation to date * FeNA is slightly prerenal * renal ultrasound w/o obstruction * LFTs improving * renin and aldosterone pending * CPK low * cortisol low end of normal - consider checking stim test * possible distal RTA given her known history of diabetes(?) * follow trend with serial labs (3) UTI (urinary tract infection): Code(s): N39.0 - Urinary tract infection, site not specified Status: Acute Assessment and Plan: * as indicative by admission UA * complicated by indwelling garner catheter * this has been exchanged * follow culture data - urine culture with Enterobacter cloacae complex * on antibiotics (4) Anemia: Qualifiers: Anemia type: unspecified type Qualified Code(s): D64.9 - Anemia, unspecified Code(s): D64.9 - Anemia, unspecified Status: Acute Assessment and Plan: * partly related to fluctuating kidney function(?) * PRBC transfusion per protocol * follow H/H (5) Insulin dependent diabetes mellitus: Status: Chronic Assessment and Plan: * follow accu-checks * glycemic control per hospitalists Will continue to follow Subjective Date/time seen: 05/10/23 10:46 Interval history: Follow-up for hyperkalemia and acute kidney injury/acute renal failure. Potassium stable if not better and renal function about the same; blood sugars seem to be doing better as well; anxious for discharge when seen; no apparent distress noted; no issues/events overnight or earlier this morning. Exam Narrative: General: large female in NAD Heart: normal S1 and S2; no rub Lungs: clear anteriorly with a few crackles at bases Abdomen: obese but soft, nontender, nondistended, positive bowel sounds Extremities: no cyanosis or clubbing; trace edema Skin: left heel ulcer present Objective Data Vital Signs Vital Signs: Vital Signs Temp Pulse Resp BP Pulse Ox O2 Del Method 05/10/23 09:09 Room Air 05/10/23 09:16 71 05/10/23 04:05 98.7 F 73 16 117/64 99 05/09/23 21:25 68 05/09/23 19:56 97.7 F 73 16 115/63 100 05/09/23 14:58 97.1 F L 70 18 117/63 100 Intake/Output Intake/Output: Intake & Output 05/07/23 05/08/23 05/09/23 05/10/23 23:59 23:59 23:59 23:59 Intake Total 4755 2875 2280 630 Output Total 2700 2250 4350 600 Balance
[2023-05-10] MEDS: SODIUM ZIRCONIUM CYCLOSILICATE 10 GM POWD.PACK PO (11:27)
[2023-05-10 11:44] LABS: Glucose Point of Care 126 mg/dl (65-105)
[2023-05-10 14:00] VITALS: BP 118/52; PULSE 72; RESP 19; TEMP 36.2; O2SAT 100
--- NOTE | 2023-05-10 15:41 | PM.DS ---
DS: Admitting Diagnosis Discharge Date today Admitting Diagnosis (1) Acute hyperkalemia: ?Code(s): E87.5 - Hyperkalemia ?Status:?Acute (2) Anemia: ?Qualifiers: ?Anemia type:?unspecified type? Qualified Code(s):?D64.9 - Anemia, unspecified ?Code(s): D64.9 - Anemia, unspecified ?Status:?Acute (3) Diabetic foot infection: ?Code(s): E11.628 - Type 2 diabetes mellitus with other skin complications; L08.9 - Local infection of the skin and subcutaneous tissue, unspecified ?Status:?Acute (4) Chronic kidney disease: ?Code(s): N18.9 - Chronic kidney disease, unspecified ?Status:?Acute (5) Daytime hypersomnia: ?Code(s): G47.10 - Hypersomnia, unspecified ?Status:?Acute (6) Epilepsy: ?Code(s): G40.909 - Epilepsy, unspecified, not intractable, without status epilepticus ?Status:?Acute (7) Diastolic dysfunction: ?Code(s): I51.89 - Other ill-defined heart diseases ?Status:?Acute (8) Urinary tract infection associated with catheterization of urinary tract: ?Code(s): T83.511A - Infection and inflammatory reaction due to indwelling urethral catheter, initial encounter; N39.0 - Urinary tract infection, site not specified ?Status:?Acute (9) Peripheral neuropathy: ?Qualifiers: ?Peripheral neuropathy type:?polyneuropathy, other? Qualified Code(s):?G62.89 - Other specified polyneuropathies ?Code(s): G62.9 - Polyneuropathy, unspecified ?Status:?Acute (10) Hyperlipidemia: ?Code(s): E78.5 - Hyperlipidemia, unspecified ?Status:?Acute (11) HTN (hypertension): ?Code(s): I10 - Essential (primary) hypertension ?Status:?Chronic (12) COPD (chronic obstructive pulmonary disease): ?Code(s): J44.9 - Chronic obstructive pulmonary disease, unspecified ?Status:?Acute (13) Sleep apnea: ?Code(s): G47.30 - Sleep apnea, unspecified ?Status:?Acute (14) Bipolar disorder: ?Code(s): F31.9 - Bipolar disorder, unspecified ?Status:?Acute (15) Anxiety: ?Code(s): F41.9 - Anxiety disorder, unspecified ?Status:?Chronic (16) Pressure sore on heel, left, unstageable: ?Code(s): L89.620 - Pressure ulcer of left heel, unstageable ?Status:?Acute (17) Pacemaker: ?Code(s): Z95.0 - Presence of cardiac pacemaker ?Status:?Acute (18) Noncompliance: ?Code(s): Z91.19 - Patient's noncompliance with other medical treatment and regimen ?Status:?Acute (19) Insulin dependent diabetes mellitus: ?Status:?Chronic (20) Diabetes mellitus with hyperglycemia: ?Code(s): E11.65 - Type 2 diabetes mellitus with hyperglycemia ?Status:?Acute (21) Morbidly obese: ?Code(s): E66.01 - Morbid (severe) obesity due to excess calories ?Status:?Acute (22) Personal history of noncompliance with medical treatment and regimen: ?Code(s): Z91.199 - Patient's noncompliance with other medical treatment and regimen due to unspecified reason ?Status:?Acute (23) Complicated UTI (urinary tract infection): ?Code(s): N39.0 - Urinary tract infection, site not specified DS: Discharge Diagnosis Discharge Diagnosis (1) Acute hyperkalemia: Code(s): E87.5 - Hyperkalemia Status: Acute (2) Anemia: Qualifiers: Anemia type: unspecified type Qualified Code(s): D64.9 - Anemia, unspecified Code(s): D64.9 - Anemia, unspecified Status: Acute (3) Diabetic foot infection: Code(s): E11.628 - Type 2 diabetes mellitus with other skin complications; L08.9 - Local infection of the skin and subcutaneous tissue, unspecified Status: Acute (4) Chronic kidney disease: Code(s): N18.9 - Chronic kidney disease, unspecified Status: Acute (5) Daytime hypersomnia: Code(s): G47.10 - Hypersomnia, unspecified Status: Acute (6) Epilepsy: Code(s): G40.909 - Epilepsy, unspecified, not intractable, without status epileptic
[2023-05-10 16:36] LABS: Glucose Point of Care 121 mg/dl (65-105)
--- NOTE | 2023-05-10 17:09 | PC.NURSE ---
Spoke to nurse receiving patient at [facility]. Notifying them that patient is on the way, had her dinner and mealtime insulin, and that patient will still need the rest of her medications before bed.
[2023-05-12 03:48] LABS: Osmolality, Urine 372 mOsm/kg (50-1200)
[2023-05-13 19:45] LABS: Haptoglobin 167 mg/dL (43-212)
[2023-05-19 13:02] LABS: Renin 2.58 ng/mL/h (0.25-5.82)
== END 2023-05-10 17:10 | DRG 466 ==
LOC: ANHED 23:01 → ANHICU 05-04 00:40 → ANH2MED 05-05 21:02
PROVIDERS: Internal Medicine Nephrology; Admitting Provider Family Medicine; Emergency Provider Physician Assistant; PCP Internal Medicine; Visit Provider Hospitalist
DX: T83.511A Infection and inflammatory reaction due to indwelling urethral catheter, initial encounter (principal); N17.9 Acute kidney failure, unspecified; E11.22 Type 2 diabetes mellitus with diabetic chronic kidney disease; E11.42 Type 2 diabetes mellitus with diabetic polyneuropathy; E11.621 Type 2 diabetes mellitus with foot ulcer; I95.9 Hypotension, unspecified; L97.429 Non-pressure chronic ulcer of left heel and midfoot with unspecified severity; L08.9 Local infection of the skin and subcutaneous tissue, unspecified; B96.89 Other specified bacterial agents as the cause of diseases classified elsewhere; N39.0 Urinary tract infection, site not specified; E11.65 Type 2 diabetes mellitus with hyperglycemia; R07.89 Other chest pain; K21.9 Gastro-esophageal reflux disease without esophagitis; E66.01 Morbid (severe) obesity due to excess calories; E66.9 Obesity, unspecified; E87.5 Hyperkalemia; E78.5 Hyperlipidemia, unspecified; F31.9 Bipolar disorder, unspecified; F41.9 Anxiety disorder, unspecified; G89.4 Chronic pain syndrome; G47.33 Obstructive sleep apnea (adult) (pediatric); G40.909 Epilepsy, unspecified, not intractable, without status epilepticus; I51.89 Other ill-defined heart diseases; I12.9 Hypertensive chronic kidney disease with stage 1 through stage 4 chronic kidney disease, or unspecified chronic kidney disease; J44.9 Chronic obstructive pulmonary disease, unspecified; M19.90 Unspecified osteoarthritis, unspecified site; N18.9 Chronic kidney disease, unspecified; Z91.199 Patient's noncompliance with other medical treatment and regimen due to unspecified reason; Z96.653 Presence of artificial knee joint, bilateral; Z79.01 Long term (current) use of anticoagulants; Z79.4 Long term (current) use of insulin; Z79.84 Long term (current) use of oral hypoglycemic drugs; Z68.42 Body mass index [BMI] 45.0-49.9, adult; Z95.0 Presence of cardiac pacemaker; Z86.718 Personal history of other venous thrombosis and embolism; Z86.711 Personal history of pulmonary embolism; Z86.14 Personal history of Methicillin resistant Staphylococcus aureus infection; Z90.49 Acquired absence of other specified parts of digestive tract; Z87.891 Personal history of nicotine dependence
CPT/HCPCS: 36415; 36430; 71046; 71250; 73630; 74176; 76775; 80048; 80053; 81001; 81025; 82088; 82533; 82550; 82570; 82948; 83010; 83615; 83690; 83735; 83874; 83930; 83935; 84100; 84132; 84133; 84244; 84300; 84443; 84484; 84540; 85025; 85610; 85730; 85999; 86850; 86900; 86901; 86923; 87077; 87081; 87086; 87186; 93005; 93306; 96365; 96375; 97161; 97165; 99285; A9270; J0612; J0692; J1756; J1815; J1836; J3370; J7030; J7042; J7050; P9016

== ENCOUNTER 2023-06-09 22:01 | Observation (INO) | payer OTHER, SELFPAY ==
[2023-06-09] VITALS (7 sets, daily range): BP systolic 134–170; BP diastolic 65–140; PULSE 90–96; RESP 11–21; TEMP 36.6; O2SAT 98–100
--- NOTE | ~2023-06-09 | XR_ITS ---
EXAMINATION: XR chest 1V portable 06/09/2023 23:11 INDICATION: Chest pain PROCEDURE: AP portable chest COMPARISON: Comparison to multiple prior studies sequentially, with oldest reviewed study dated 11/20. FINDINGS: The lungs are clear. Mild cardiomegaly. Pacemaker leads are stable. There are no pleural ef fusions. There is no pneumothorax suspected. IMPRESSION: 1: NO ACUTE CARDIOPULMONARY DISEASE. Reviewed, dictated and finalized at location A.
--- NOTE | 2023-06-09 22:30 | PC.NURSE ---
Pt cleaned of small amt of dark brown stool.
--- NOTE | 2023-06-09 22:39 | ECG_ITS ---
Measurements Intervals [place] Rate: 92 P: 47 IA: 148 QRS: 36 QRSD: 86 T: 29 QT: 347 QTc: 430 Interpretive Statements SINUS RHYTHM DELAYED PRECORDIAL R/S TRANSITION LOW QRS VOLTAGE- DIFFUSE LEADS BORDERLINE ECG COMPARED TO ECG 05/03/2023 17:57:28 NO SIGNIFICANT CHANGES Electronically Signed On 06-10-2023 7:59:42 CDT by Kalin Castorena D.O.
--- NOTE | 2023-06-09 22:43 | ED.GENADULT ---
HPI - General Adult General Chief complaint: Chest Pain Stated complaint: Chest pain Time Seen by Provider: 06/09/23 22:15 Source: patient Mode of arrival: EMS Limitations: no limitations History of Present Illness HPI narrative: This is a 47-year-old female with multiple medical problems who presents to the ED via EMS for chief complaint of chest pain. She is coming from [facility]. She reports that while sitting on her chair watching TV today she started to have central chest pain that radiates bilaterally across the chest. Reports that sometimes radiates into the left side. Reports nausea but no vomiting. Denies LOC. States she is chronically short of breath and this has not changed. She also reports chronic abdominal swelling and that this has not changed. She also states that she has chronic leg swelling in her legs may be a little more swollen than normal but not much. Denies abdominal pain, urinary problems, problems with bowel movements, palpitations. Related Data Home Medications Medication Instructions Recorded Confirmed furosemide 20 mg tablet 40 mg PO BID 01/18/22 05/04/23 albuterol sulfate 90 mcg/actuation 2 puff inhalation Q4H PRN 04/22/22 05/04/23 aerosol inhaler Shortness Of Breath famotidine 20 mg tablet (Pepcid) 20 mg PO DAILY 04/22/22 05/04/23 lisinopril 20 mg tablet 20 mg PO DAILY 04/22/22 05/04/23 loratadine 10 mg tablet 10 mg PO DAILY 04/22/22 05/04/23 gabapentin 300 mg capsule 300 mg PO TID 09/21/22 05/04/23 sitagliptin phosphate 100 mg 100 mg PO DAILY 09/21/22 05/04/23 tablet (Januvia) levetiracetam 500 mg tablet 500 mg PO BID 10/15/22 05/04/23 bisacodyl 10 mg rectal suppository 10 mg RECTAL DAILY PRN Constipation 12/18/22 05/04/23 glucagon 1 mg solution for 1 mg subcut Q1H PRN Hypoglycemia 12/18/22 05/04/23 injection (GlucaGen HypoKit) insulin glargine 100 unit/mL (3 10 unit subcut QPM 12/18/22 05/04/23 mL) subcutaneous pen (Lantus Solostar U-100 Insulin) polyethylene glycol 3350 17 gram 17 g PO DAILY PRN Constipation 12/18/22 05/04/23 oral powder packet insulin lispro 100 unit/mL 7 unit subcut TIDWM 04/04/23 05/04/23 subcutaneous solution trazodone 50 mg tablet 50 mg PO HS 04/04/23 05/04/23 Betadine Swabsticks 1 applic topical BID 05/04/23 05/04/23 Saccharomyces boulardii 250 mg 250 mg PO BID 05/04/23 05/04/23 capsule promethazine 25 mg rectal 25 mg RECTAL Q8H PRN nausea and 05/04/23 05/04/23 suppository vomitting Allergies Allergy/AdvReac Type Severity Reaction Status Date / Time lidocaine Allergy Intermediate HIVES Verified 10/15/22 18:06 nitroglycerin Allergy Intermediate HIVES Verified 10/15/22 18:06 aspirin Allergy Mild Hives Verified 10/15/22 18:06 citalopram Allergy Mild Rash Verified 10/15/22 18:06 escitalopram Allergy Mild Hives Verified 10/15/22 18:06 ibuprofen Allergy Mild Hives Verified 10/15/22 18:06 Penicillins Allergy Mild HIVES PER Verified 05/06/23 09:29 UNCODED ALLERGIES 08/27/12 procaine Allergy Mild Hives Verified 10/15/22 18:06 propoxyphene Allergy Mild Hives Verified 10/15/22 18:06 doxycycline Allergy Unknown Hives Verified 10/15/22 18:06 meloxicam Allergy Unknown HIVES Verified 10/15/22 18:06 Sulfa (Sulfonamide Allergy Unknown HIVES PER Verified 10/15/22 18:06 Antibiotics) UNCODED ALLERGIES 08/27/12 sulfamethoxazole Allergy Unknown Hives Verified 10/15/22 18:06 trimethoprim Allergy Unknown Hives Verified 10/15/22 18:06 amoxicillin Allergy Hives Verified 05/06/23 09:29 codeine Allergy Hives Verified 10/15/22 18:06 iohexol Allergy Hives Verified 10/15/22 18:06 [From contrast - CT, X-RAY] adhesive AdvReac Unknown SILK TAPE= Verified 10/15/22 18:06 HIVES imipenem AdvReac Itching Verified 05/06/23 09:29 Review of Systems Review of Systems: All systems as dictated in [facility] Past Medical History Medical History Anemia Anxiety Ar
[2023-06-09] MEDS: ONDANSETRON INJ 4 MG/2 ML VIAL IV PUSH (23:08)
[2023-06-09 23:24] LABS: Basophils Percent Auto 0.3 % (0.2-1.2); Eosinophils Absolute Auto 0.3 K/mm3 (0-0.3); Eosinophils Percent Auto 3.8 % (0-4.4); Hematocrit 28.8 % (37.0-47.0); Hemoglobin 8.7 g/dL (12.0-15.0); Immature Granulocyte Absolute 0.09 K/mm3 (0.00-0.031); Lymphocytes Absolute Auto 1.11 K/mm3 (0.9-3.2); Lymphocytes Percent Auto 12.8 % (18.3-44.2); Mean Corpuscular HGB Conc 30.2 g/dl (32-36); Mean Corpuscular Hemoglobin 29.1 pg (26-34); Mean Corpuscular Volume 96.3 fl (80-100); Mean Platelet Volume 9.5 fl (7.4-10.4); Monocytes Absolute Auto 0.8 K/mm3 (0.1-0.6); Neutrophils Absolute Auto 6.3 K/mm3 (1.3-6.7); Neutrophils Percent Auto 73.1 % (45.5-73.1); Platelet Count Result 244 k/mm3 (150-375); Red Blood Count 2.99 M/mm3 (4.2-5.4); Red Cell Distribution Width 14.8 % (11.5-14.5); White Blood Count 8.6 K/mm3 (4.5-10.0)
[2023-06-09 23:36] LABS: INR 1.3; Partial Thromboplastin Time 31.1 SECONDS (22.3-36.8); Prothrombin Time 17.2 Seconds (11.1-14.7)
[2023-06-09 23:37] LABS: Alanine Aminotransferase 17 U/L (6-35); Albumin Level 3.6 g/dL (3.5-5.1); Alkaline Phosphatase 124 U/L (38-126); Anion Gap 4 mmol/L (8-16); Aspartate Amino Transferase 23 U/L (14-36); Bilirubin,Total 0.5 mg/dL (0.2-1.3); Blood Urea Nitrogen 63 mg/dL (7-17); Calcium 8.5 mg/dL (8.4-10.2); Carbon Dioxide 32 mmol/L (22-30); Chloride 102 mmol/L (98-107); Estimated Glomerular Filt Rate > 60; Glucose 193 mg/dL (65-110); Lipase 107 U/L (23-300); Potassium 5.5 mmol/L (3.4-5.0); Sodium 138 mmol/L (137-145)
[2023-06-09 23:47] LABS: Appearance Urine Cloudy (Clear); Bacteria Urine 4+ /hpf; Bilirubin Urine Negative (Negative); Blood Urine 3+ (Negative); Color Urine Yellow (Yellow); Glucose Urine UA Negative (Negative); Ketones Urine Negative (Negative); Leukocyte Esterase Ur 3+ LEU/UL (Negative); NT Pro B Type Natriuretic Pept 2040 pg/mL (19.9-100); Need Manual Microscopic Reviewed; Nitrate Urine Positive (Negative); Protein Urine 2+ mg/dL (Negative); RBC Urine >100 /hpf (0-2); Specific Grav Ur 1.012 (1.001-1.035); Squamous Epithelial Cell Urine None seen /hpf (Few); Troponin I < 0.012 ng/mL (0.000-0.034); Urobilinogen Urine 0.2 mg/dL (<2.0); WBC Urine 21-50 /hpf; pH Urine 7.5 (5.0-9.0)
[2023-06-09 23:49] LABS: Add Urine Microscopic? YES
[2023-06-10] VITALS (20 sets, daily range): BP systolic 88–157; BP diastolic 42–69; PULSE 80–114; RESP 13–24; TEMP 36.4–37.2; O2SAT 94–100; BMI 49.8
[2023-06-10] MEDS: ALBUTEROL SULFATE NEB 2.5 MG/3 ML INH 10 MG INHALATION (01:25)
--- NOTE | 2023-06-10 02:15 | PC.NURSE ---
Pt requesting pain medication. ERP notified.
[2023-06-10] MEDS: fentaNYL CITRATE INJ (*CRX) 100 MCG/2 ML VIAL 50 MCG IV PUSH (02:51)
[2023-06-10 02:53] LABS: Troponin I < 0.012 ng/mL (0.000-0.034)
[2023-06-10] MEDS: SODIUM ZIRCONIUM CYCLOSILICATE 10 GM POWD.PACK PO (03:58)
[2023-06-10] MEDS: FUROSEMIDE INJ 40 MG/4 ML VIAL IV PUSH (03:58)
--- NOTE | 2023-06-10 04:58 | PC.NURSE ---
Report to TYRELL Choudhary. All questions answered.
[2023-06-10 05:01] LABS: Influenza A QL RT-PCR Negative (Negative); Influenza B QL RT-PCR Negative (Negative); SARS-CoV-2 RNA PCR Negative (Negative)
--- NOTE | 2023-06-10 06:04 | ADMGEN ---
This patient, Valerie Nguyen, was admitted to [facility] Room 315-02. Patient/family oriented to hospital policies and general routines including ID bracelet, bed and alarms, visiting hours, pain management, procedures, bathroom and other care routines, personal items, smoking policy, room service/diet, and visiting hours. Information on how to activate the Rapid Response Team has been discussed. Patient/Family are encouraged to report perceived risks to care and to ask questions if they do not understand what they are told or what they should do.
[2023-06-10 06:56] LABS: Troponin I < 0.012 ng/mL (0.000-0.034)
[2023-06-10 07:59] LABS: Glucose Point of Care 189 mg/dl (65-105)
--- NOTE | 2023-06-10 09:04 | PM.IMHP ---
H&P: HPI History of Present Illness Date/Time: 06/10/23 09:04 Chief Complaint: chest pain Narrative: 47-year-old female with past medical history significant for kidney disease, uncontrolled diabetes, COPD, GERD, hypertension, seizures, heart failure among other comorbidities is presenting from a nursing facility for chest pain. Patient states the pain started at rest and radiated into her left side and was associated with some nausea. She denies any associated shortness of breath, fevers or chills. In the ER, the EKG was nonacute. Troponin was negative x2. Review of Systems Review of Systems: 12 point review of systems was assessed and was negative except as noted in the HPI PMFSH Past Medical History Medical History Anemia Anxiety Arthritis Asthma Bipolar disorder Chronic anticoagulation For history of DVT and PE. Chronic kidney disease Chronic obstructive pulmonary disease Chronic pain syndrome Deep venous thrombosis Depression Diastolic dysfunction Eczema Epilepsy Gastroesophageal reflux disease Herniated disc History of MRSA infection Hyperlipidemia Hypertension Insulin dependent diabetes mellitus Historically poorly controlled. Obesity Obstructive sleep apnea Non compliant with treatment. Peripheral neuropathy Personal history of noncompliance with medical treatment and regimen Pulmonary embolism Seizures Suicide attempt T11 vertebral fracture Nondisplaced fracture of the right T11 inferior articulating facet. No surgical intervention required. Surgical History Surgical History History of bilateral knee replacement History of cardiac catheterization History of cardiac pacemaker For paroxysmal ventricular arrhythmia/tachycardia. History of cholecystectomy Family History Family History Mother Heart disease Acute myocardial infarction Uterine cancer COVID-19 Diabetes mellitus Hypertension Kidney disease Father Heart disease Social History Social History Social History: Surrogate medical decision maker: Meño Marquez, significant other. Code status: Full code. Smoking packs per day: 1.5 Smoking cigarettes per day: 30.0 Years smoked: 9 Smoking pack-years: 13.50 Smoking status: Never smoker Second hand tobacco smoke exposure: Yes Alcohol intake: never Substance use: never Substance use type: does not use Lack of Transportation: No Lack of Food: Never True Current Housing: I Have Housing Concerned About Future Housing: No Difficulty Paying Gas/Electric Bills: No Difficulty Paying for Meds: No Currently Unemployed: No Education: Grade School Difficulty w/ Childcare or Family Care: No Living arrangements: with family Additional living arrangements comments: . Four children being raised by her sister. Additional occupation/education comments: Disabled. Spiritual care concerns: No Meds Home Medications and Allergies Home Medications Medication Instructions Recorded Confirmed Type furosemide 20 mg tablet 40 mg PO BID 01/18/22 06/10/23 History albuterol sulfate 90 mcg/actuation 2 puff inhalation Q4H PRN 04/22/22 06/10/23 History aerosol inhaler Shortness Of Breath famotidine 20 mg tablet (Pepcid) 20 mg PO DAILY 04/22/22 06/10/23 History lisinopril 20 mg tablet 20 mg PO DAILY 04/22/22 06/10/23 History loratadine 10 mg tablet 10 mg PO DAILY 04/22/22 06/10/23 History ferrous sulfate 325 mg (65 mg 324 mg PO BIDWM #30 tabs 04/29/22 06/10/23 Rx iron) tablet tolnaftate 1 % topical powder 1 applic topical Q12HR #45 grams 04/29/22 06/10/23 Rx gabapentin 300 mg capsule 300 mg PO TID 09/21/22 06/10/23 History sitagliptin phosphate 100 mg 100 mg PO DAILY 09/21/22 06/10/23 History tablet (Januvia) l
[2023-06-10 12:11] LABS: Glucose Point of Care 218 mg/dl (65-105)
[2023-06-10] MEDS: polyethylene glycoL 3350 17 GM POWD.PACK PO (16:03)
[2023-06-10 17:08] LABS: Glucose Point of Care 200 mg/dl (65-105)
[2023-06-10] MEDS: SACCHAROMYCES BOULARDII 250 MG CAPSULE PO (18:01)
[2023-06-10] MEDS: APIXABAN 5 MG TABLET PO (18:01)
[2023-06-10] MEDS: levETIRAcetam 500 MG TABLET PO (18:01)
[2023-06-10] MEDS: INSULIN GLARGINE (*BKC) 100 UNITS/ML 10 UNITS SUB-Q (18:01)
[2023-06-10] MEDS: GABAPENTIN 300 MG CAPSULE PO (18:01)
[2023-06-10] MEDS: FUROSEMIDE 40 MG TABLET PO (18:01)
[2023-06-10] MEDS: ONDANSETRON INJ 4 MG/2 ML VIAL IV PUSH (20:22)
[2023-06-10] MEDS: ALPRAZolam (*CRX) 0.5 MG TABLET 1 MG PO (20:22)
[2023-06-10] MEDS: METOPROLOL TARTRATE 12.5 MG TABLET PO (20:23)
[2023-06-10] MEDS: traZODone HCL 50 MG TABLET PO (20:23)
[2023-06-10] MEDS: TOLNAFTATE 1% POWDER 45 GM BTL 1 APPLIC TOPICAL (20:23)
[2023-06-10 21:19] LABS: Glucose Point of Care 189 mg/dl (65-105)
[2023-06-10] MEDS: ACETAMINOPHEN 500 MG TABLET PO (22:41)
[2023-06-11] VITALS: PULSE 79
[2023-06-11] MEDS: ONDANSETRON INJ 4 MG/2 ML VIAL IV PUSH (02:38)
[2023-06-11 04:00] VITALS: PULSE 70
[2023-06-11 06:00] VITALS: BP 124/63; PULSE 74; RESP 18; TEMP 36.6; O2SAT 99
[2023-06-11 07:44] LABS: Glucose Point of Care 125 mg/dl (65-105)
[2023-06-11 08:00] VITALS: PULSE 82
[2023-06-11 08:38] LABS: Basophils Percent Auto 0.5 % (0.2-1.2); Eosinophils Absolute Auto 0.3 K/mm3 (0-0.3); Eosinophils Percent Auto 3.9 % (0-4.4); Hematocrit 27.6 % (37.0-47.0); Hemoglobin 8.1 g/dL (12.0-15.0); Immature Granulocyte Absolute 0.04 K/mm3 (0.00-0.031); Immature Granulocyte Percent A 0.6 % (0-0.5); Lymphocytes Absolute Auto 0.94 K/mm3 (0.9-3.2); Lymphocytes Percent Auto 14.1 % (18.3-44.2); Mean Corpuscular HGB Conc 29.3 g/dl (32-36); Mean Corpuscular Hemoglobin 28.7 pg (26-34); Mean Corpuscular Volume 97.9 fl (80-100); Mean Platelet Volume 9.2 fl (7.4-10.4); Monocytes Absolute Auto 0.6 K/mm3 (0.1-0.6); Monocytes Percent Auto 9.2 % (2.6-8.5); Neutrophils Absolute Auto 4.8 K/mm3 (1.3-6.7); Neutrophils Percent Auto 71.7 % (45.5-73.1); Platelet Count Result 206 k/mm3 (150-375); Red Blood Count 2.82 M/mm3 (4.2-5.4); Red Cell Distribution Width 14.7 % (11.5-14.5); White Blood Count 6.7 K/mm3 (4.5-10.0)
[2023-06-11 08:47] LABS: Alanine Aminotransferase 17 U/L (6-35); Albumin Level 3.5 g/dL (3.5-5.1); Alkaline Phosphatase 114 U/L (38-126); Anion Gap 5 mmol/L (8-16); Aspartate Amino Transferase 19 U/L (14-36); Bilirubin,Total 0.5 mg/dL (0.2-1.3); Blood Urea Nitrogen 69 mg/dL (7-17); Calcium 8.7 mg/dL (8.4-10.2); Carbon Dioxide 29 mmol/L (22-30); Chloride 105 mmol/L (98-107); Estimated Glomerular Filt Rate 53; Glucose 128 mg/dL (65-110); Potassium 5.4 mmol/L (3.4-5.0); Sodium 139 mmol/L (137-145)
[2023-06-11] MEDS: INSULIN ASPART (*BKC) 100 UNITS/ML 7 UNITS SUB-Q ×2 (09:39→12:26)
[2023-06-11] MEDS: DOCUSATE SODIUM 100 MG CAPSULE PO (09:41)
[2023-06-11] MEDS: GABAPENTIN 300 MG CAPSULE PO ×2 (09:41→12:25)
[2023-06-11] MEDS: APIXABAN 5 MG TABLET PO (09:41)
[2023-06-11] MEDS: FERROUS SULFATE 325 MG TABLET DR BY MOUTH (09:41)
[2023-06-11] MEDS: SACCHAROMYCES BOULARDII 250 MG CAPSULE PO (09:41)
[2023-06-11] MEDS: FAMOTIDINE 20 MG TABLET PO (09:42)
[2023-06-11] MEDS: LORATADINE 10 MG TABLET PO (09:42)
[2023-06-11] MEDS: levETIRAcetam 500 MG TABLET PO (09:42)
[2023-06-11] MEDS: FUROSEMIDE 40 MG TABLET PO (09:42)
[2023-06-11 09:43] VITALS: PULSE 72
[2023-06-11] MEDS: METOPROLOL TARTRATE 12.5 MG TABLET PO (09:43)
[2023-06-11] MEDS: TOLNAFTATE 1% POWDER 45 GM BTL 1 APPLIC TOPICAL (09:44)
[2023-06-11] MEDS: lisinopriL 20 MG TABLET PO (09:44)
[2023-06-11] MEDS: polyethylene glycoL 3350 17 GM POWD.PACK PO (09:44)
--- NOTE | 2023-06-11 10:56 | PM.DS ---
DS: Admitting Diagnosis Discharge Date 06/11/23 Admitting Diagnosis chest pain DS: Discharge Diagnosis Discharge Diagnosis (1) Chest pain: Code(s): R07.9 - Chest pain, unspecified Status: Acute Assessment and Plan: Unsure of etiology, could be secondary to heart failure versus musculoskeletal, does not appear to be acute cardiac ischemic event (2) CHF (congestive heart failure): Code(s): I50.9 - Heart failure, unspecified Status: Acute Assessment and Plan: Does not appear hypervolemic, continue home oral diuretics (3) Diabetes mellitus with hyperglycemia: Code(s): E11.65 - Type 2 diabetes mellitus with hyperglycemia Status: Acute Assessment and Plan: Accu-Cheks, sliding scale insulin, check A1c Blood glucose reviewed 06/10 (4) COPD (chronic obstructive pulmonary disease): Code(s): J44.9 - Chronic obstructive pulmonary disease, unspecified Status: Acute Assessment and Plan: Does not appear to be in exacerbation (5) HTN (hypertension): Code(s): I10 - Essential (primary) hypertension Status: Chronic Assessment and Plan: Blood pressures reviewed 06/10 (6) Epilepsy: Code(s): G40.909 - Epilepsy, unspecified, not intractable, without status epilepticus Status: Acute Assessment and Plan: Continue home AED Plan DVT prophylaxis with Eliquis GI prophylaxis with H2 christina Code status full code DS: Summary Hospital Course Hospital Course: 47-year-old female with past medical history significant for kidney disease, uncontrolled diabetes, COPD, GERD, hypertension, seizures, heart failure among other comorbidities is presenting from a nursing facility for chest pain.? Patient states the pain started at rest and radiated into her left side and was associated with some nausea.? She denies any associated shortness of breath, fevers or chills.? In the ER, the EKG was nonacute.? Troponin was negative x2. All symptoms resolved and patient was discharged back to her nursing facility in stable condition with close follow-up. Please see above and med rec for details. Time Spent with Patient Time attestation: Total time spent providing and/or coordinating discharge services: Exam Narrative: General: No acute distress, alert and oriented per baseline HEENT: Atraumatic, normocephalic, mucous membranes moist CV: Regular rate and rhythm, S1, S2 Lungs: Clear to auscultation bilaterally, no rales or crackles noted, no wheezes, good air entry Abdomen: Soft, nontender, nondistended Extremities: Normal to inspection, bilateral lower extremity lymphedema, nonpitting Skin: No rashes noted, no lesions or wounds seen Psych: Euthymic, normal affect DS: Data Data Completed and Pending Labs on day of discharge: Labs from last 24 hours 06/11/23 06/11/23 06/10/23 08:31 07:41 20:27 WBC 6.7 RBC 2.82 L Hgb 8.1 L Hct 27.6 L MCV 97.9 MCH 28.7 MCHC 29.3 L RDW 14.7 H Plt Count 206 MPV 9.2 Immature Gran % (Auto) 0.6 H Neut % (Auto) 71.7 Lymph % (Auto) 14.1 L Parke % (Auto) 9.2 H Eos % (Auto) 3.9 Baso % (Auto) 0.5 Lymph # (Auto) 0.94 Parke # (Auto) 0.6 Eos # (Auto) 0.3 Baso # (Auto) 0.0 Abs Immat Gran (auto) 0.04 H Absolute Neuts (auto) 4.8 Absolute Nucleated RBC 0.0 Nucleated RBC % 0.0 Sodium 139 Potassium 5.4 H Chloride 105 Carbon Dioxide 29 Anion Gap 5 L BUN 69 H Creatinine 1.10 H Estim Creat Clear Calc Not Reportable Estimated GFR 53 L Glucose 128 H POC Capillary Glucose 125 H 189 H Calcium 8.7 Total Bilirubin 0.5 AST 19 ALT 17 Alkaline Phosphatase 114 Total Protein 7.0 Albumin 3.5 06/10/23 06/10/23 16:34 11:45 WBC RBC Hgb Hct MCV MCH MCHC RDW Plt Count MPV Immature Gran % (Auto) Neut % (Auto) Lymph % (Aut
[2023-06-11 11:56] LABS: Glucose Point of Care 150 mg/dl (65-105)
[2023-06-11 12:00] VITALS: PULSE 73
[2023-06-11] MEDS: SODIUM ZIRCONIUM CYCLOSILICATE 10 GM POWD.PACK PO (12:25)
== END 2023-06-11 13:25 ==
LOC: ANHED 06-10 03:39 → ANH3MEDSUR 06-10 03:47
PROVIDERS: Student in an Organized Health Care Education/Training Program; Admitting Provider Internal Medicine; Emergency Provider Physician Assistant; PCP Internal Medicine; Visit Provider Internal Medicine
DX: R07.9 Chest pain, unspecified (principal); I50.9 Heart failure, unspecified; E11.22 Type 2 diabetes mellitus with diabetic chronic kidney disease; N18.9 Chronic kidney disease, unspecified; E11.42 Type 2 diabetes mellitus with diabetic polyneuropathy; E11.65 Type 2 diabetes mellitus with hyperglycemia; J44.9 Chronic obstructive pulmonary disease, unspecified; I13.0 Hypertensive heart and chronic kidney disease with heart failure and stage 1 through stage 4 chronic kidney disease, or unspecified chronic kidney disease; N39.0 Urinary tract infection, site not specified; B96.89 Other specified bacterial agents as the cause of diseases classified elsewhere; K59.00 Constipation, unspecified; G40.909 Epilepsy, unspecified, not intractable, without status epilepticus; G89.4 Chronic pain syndrome; K21.9 Gastro-esophageal reflux disease without esophagitis; E78.5 Hyperlipidemia, unspecified; Z20.822 Contact with and (suspected) exposure to COVID-19; E66.01 Morbid (severe) obesity due to excess calories; Z68.42 Body mass index [BMI] 45.0-49.9, adult; R79.9 Abnormal finding of blood chemistry, unspecified; D64.9 Anemia, unspecified; F41.9 Anxiety disorder, unspecified; F31.9 Bipolar disorder, unspecified; Z96.0 Presence of urogenital implants; R19.7 Diarrhea, unspecified; Z79.4 Long term (current) use of insulin; Z79.51 Long term (current) use of inhaled steroids; Z79.84 Long term (current) use of oral hypoglycemic drugs; Z87.891 Personal history of nicotine dependence; Z86.718 Personal history of other venous thrombosis and embolism; Z86.14 Personal history of Methicillin resistant Staphylococcus aureus infection; Z82.49 Family history of ischemic heart disease and other diseases of the circulatory system; Z84.1 Family history of disorders of kidney and ureter
CPT/HCPCS: 36415; 71045; 80053; 81001; 82948; 83690; 83880; 84484; 85025; 85610; 85730; 87077; 87086; 87186; 87636; 93005; 94640; 96374; 96375; 99285; A9270; G0378; G0379; J1815; J1940; J2405; J3010

== ENCOUNTER 2023-06-30 13:45 | Inpatient (IN) | payer OTHER, SELFPAY ==
--- NOTE | ~2023-06-30 | US_ITS ---
EXAMINATION: US venous doppler [facility] DATE: 07/03/2023 11:10 INDICATION: Bilateral lower limb swelling TECHNIQUE: Rooney scale images without and with compression and Doppler images of the bilateral lower e xtremity veins were obtained. COMPARISON: 10/16/2022 FINDINGS: There is thrombosis of the right popliteal vein. There also appears to be thrombosis of the posterior tibial and peroneal veins on the right. The right common femoral vein, profunda femoral vein, and fe moral vein is patent. The left common femoral vein, profunda femoral vein, femoral vein, popliteal vein, peroneal trunk, po sterior tibial veins, and greater saphenous vein are patent. IMPRESSION: 1. Thrombosis of the right popliteal vein and probable thrombosis of the right posterior tibial and p eroneal veins. 2. No evidence of deep venous thrombosis on the left. These findings were discussed with [facility] at 1130 hours on 07/03/2023. Reviewed, dictated and finalized at location F. BURNER OPERATOR IMPRESSION: 1. Thrombosis of the right popliteal vein and probable thrombosis of the right posterior tibial and peroneal veins. 2. No evidence of deep venous thrombosis on the left. These findings were discussed with [facility] at 1130 hours on .
--- NOTE | ~2023-06-30 | XR_ITS ---
XR chest 1V portable 06/30/2023 14:33 Indication: Chest pain Procedure: AP portable chest Comparison: Comparison to multiple prior studies sequentially, with oldest reviewed study dated 12/17. Findings: Cardiomegaly. Mild interstitial edema. Pacemaker leads in expected position. No pleural eff usion or pneumothorax. Impression: 1: Cardiomegaly with mild interstitial edema. Reviewed, dictated and finalized at location L. NER OPERATOR Impression: 1: Cardiomegaly with mild interstitial edema.
--- NOTE | ~2023-06-30 | CT_ITS ---
EXAMINATION: CT abdomen pelvis wo con DATE: 06/30/2023 15:33 INDICATION: Left lower quadrant and right lower quadrant pain. TECHNIQUE: Computed tomography (CT) of the abdomen and pelvis was performed without intravenous contr ast. The dose-length product was 1513.64 mGy-cm. Automated exposure control and iterative reconstruction technique were employed. COMPARISON: CT dated 05/03/2023 FINDINGS: Heart size normal. Small right pleural effusion. The right lower lobe atelectasis. Status p ost cholecystectomy. The the liver, spleen, pancreas, adrenal glands and kidneys are unremarkable. No nobstructive bowel gas pattern. Jenkins catheter present in the bladder. No significant vascular abnorm ality. There is diffuse infiltration of the subcutaneous fat of the lower anterior abdominal wall, ri ght greater than left. No discrete abscess identified. Moderate lower thoracic and lumbar spondylosis . Moderate osteoarthritis of the hips. IMPRESSION: 1. Diffuse infiltration of the lower abdominal wall subcutaneous fat anteriorly, right greater than l eft, suspicious for cellulitis. 2: Small right pleural effusion with underlying compressive atelectasis. Reviewed, dictated and finalized at location L. TATION MANAGER IMPRESSION: 1. Diffuse infiltration of the lower abdominal wall subcutaneous fat anteriorly , right greater than left, suspicious for cellulitis. 2: Small right pleural effusion with underlying compressive atelectasis.
--- NOTE | ~2023-06-30 | XR_ITS ---
EXAMINATION: XR chest 1V portable INDICATION: Concern for pulmonary edema TECHNIQUE: Portable AP chest at 0559 hours COMPARISON: 06/30/2023 FINDINGS: Cardiomegaly is noted. Interstitial opacities persist but have slightly improved. No pleura l effusion or pneumothorax. A dual-lead cardiac pacemaker of the left chest wall ends with leads in e xpected locations. IMPRESSION: 1. Cardiomegaly with improving pulmonary edema. Reviewed, dictated and finalized at location F. LE RESOURCE BOSS
[2023-06-30 13:45] VITALS: BP 112/53; PULSE 80; RESP 20; TEMP 36.7; O2SAT 100
--- NOTE | 2023-06-30 13:53 | ED.CHESTPAIN ---
HPI - Chest Pain General Chief Complaint: Chest Pain Stated Complaint: chest pain Time Seen by Provider: 06/30/23 13:53 Source: patient History of Present Illness HPI narrative: Patient is a 47 yo female who presents with report of chest pain/epigastric abdominal pain. She states this occurs at rest. She reports a dry cough but no fevers or vomiting. She states she has a problem with her urinary catheter which is indwelling for unclear reasons. She also has abdominal pain but states it has been hurting at the insertion/at her urethra. She states she has constant shortness of breath. Has a pacemaker. Has a wound along left superior aspect of chest where patient states they attempted IV insertion. Related Data Home Medications Medication Instructions Recorded Confirmed furosemide 20 mg tablet 40 mg PO BID 01/18/22 06/30/23 albuterol sulfate 90 mcg/actuation 2 puff inhalation Q4H PRN 04/22/22 06/30/23 aerosol inhaler Shortness Of Breath famotidine 20 mg tablet (Pepcid) 20 mg PO DAILY 04/22/22 06/30/23 lisinopril 20 mg tablet 20 mg PO DAILY 04/22/22 06/30/23 loratadine 10 mg tablet 10 mg PO DAILY 04/22/22 06/30/23 gabapentin 300 mg capsule 300 mg PO TID 09/21/22 06/30/23 levetiracetam 500 mg tablet 500 mg PO BID 10/15/22 06/30/23 bisacodyl 10 mg rectal suppository 10 mg RECTAL DAILY PRN Constipation 12/18/22 06/30/23 glucagon 1 mg solution for 1 mg subcut Q1H PRN Hypoglycemia 12/18/22 06/30/23 injection (GlucaGen HypoKit) insulin glargine 100 unit/mL (3 10 unit subcut QPM 12/18/22 06/30/23 mL) subcutaneous pen (Lantus Solostar U-100 Insulin) polyethylene glycol 3350 17 gram 17 g PO DAILY PRN Constipation 12/18/22 06/30/23 oral powder packet insulin lispro 100 unit/mL 7 unit subcut TIDWM 04/04/23 06/30/23 subcutaneous solution trazodone 50 mg tablet 100 mg PO HS 04/04/23 06/30/23 Betadine Swabsticks 1 applic topical DAILY 05/04/23 06/30/23 promethazine 25 mg rectal 25 mg RECTAL Q8H PRN nausea and 05/04/23 06/30/23 suppository vomitting acetaminophen 650 mg PO Q6H PRN Pain (Scale 06/30/23 06/30/23 Score 4-6) alprazolam 0.5 mg tablet 0.5 mg PO TID PRN Anxiety 06/30/23 06/30/23 ferrous sulfate 325 mg (65 mg 324 mg PO BID 06/30/23 06/30/23 iron) tablet simethicone 125 mg capsule (Gas 250 mg PO .PRN PRN Stomach Upset 06/30/23 06/30/23 Relief (simethicone)) sitagliptin phosphate 100 mg tablet 100 mg PO DAILY 06/30/23 06/30/23 torsemide 10 mg tablet 10 mg PO DAILY 06/30/23 06/30/23 Allergies Allergy/AdvReac Type Severity Reaction Status Date / Time lidocaine Allergy Intermediate HIVES Verified 06/30/23 20:36 nitroglycerin Allergy Intermediate HIVES Verified 06/30/23 20:36 aspirin Allergy Mild Hives Verified 06/30/23 20:36 citalopram Allergy Mild Rash Verified 06/30/23 20:36 escitalopram Allergy Mild Hives Verified 06/30/23 20:36 ibuprofen Allergy Mild Hives Verified 06/30/23 20:36 Penicillins Allergy Mild HIVES PER Verified 06/30/23 20:36 UNCODED ALLERGIES 08/27/12 procaine Allergy Mild Hives Verified 06/30/23 20:36 propoxyphene Allergy Mild Hives Verified 06/30/23 20:36 doxycycline Allergy Unknown Hives Verified 06/30/23 20:36 meloxicam Allergy Unknown HIVES Verified 06/30/23 20:36 Sulfa (Sulfonamide Allergy Unknown HIVES PER Verified 06/30/23 20:36 Antibiotics) UNCODED ALLERGIES 08/27/12 sulfamethoxazole Allergy Unknown Hives Verified 06/30/23 20:36 trimethoprim Allergy Unknown Hives Verified 06/30/23 20:36 amoxicillin Allergy Hives Verified 06/30/23 20:36 codeine Allergy Hives Verified 06/30/23 20:36 iohexol Allergy Hives Verified 06/30/23 20:36 [From contrast - CT, X-RAY] adhesive AdvReac Unknown SILK TAPE= Verified 06/30/23 20:36 HIVES imipenem AdvReac Itching Verified 06/30/23 20:36 PMFSH Past Medical History Medical History (Updated 07/01/23 @ 14:52 by Agatha Duran MD) Anemia Anxiety Arthritis Asthma Bipolar disorder Chronic anticoagulation For hi
--- NOTE | 2023-06-30 13:54 | ECG_ITS ---
Measurements Intervals [place] Rate: 75 P: 48 [place]: 161 QRS: 31 QRSD: 86 T: 31 QT: 363 QTc: 406 Interpretive Statements SINUS RHYTHM LOW QRS VOLTAGE- DIFFUSE LEADS CONSIDER ANTERIOR INFARCT, AGE INDETERMINATE ABNORMAL ECG COMPARED TO ECG 06/09/2023 22:43:19 NO SIGNIFICANT CHANGES Electronically Signed On 06-30-2023 16:43:41 ARCHITECT MANAGER by Kalin Castorena D.O.
[2023-06-30 14:31] LABS: Basophils Percent Auto 0.4 % (0.2-1.2); Eosinophils Absolute Auto 0.3 K/mm3 (0-0.3); Eosinophils Percent Auto 5.3 % (0-4.4); Hematocrit 29.5 % (37.0-47.0); Hemoglobin 8.6 g/dL (12.0-15.0); Immature Granulocyte Absolute 0.01 K/mm3 (0.00-0.031); Immature Granulocyte Percent A 0.2 % (0-0.5); Lymphocytes Absolute Auto 0.48 K/mm3 (0.9-3.2); Lymphocytes Percent Auto 9.4 % (18.3-44.2); Mean Corpuscular HGB Conc 29.2 g/dl (32-36); Mean Corpuscular Hemoglobin 28.6 pg (26-34); Mean Platelet Volume 9.3 fl (7.4-10.4); Monocytes Absolute Auto 0.5 K/mm3 (0.1-0.6); Monocytes Percent Auto 9.8 % (2.6-8.5); Neutrophils Absolute Auto 3.8 K/mm3 (1.3-6.7); Neutrophils Percent Auto 74.9 % (45.5-73.1); Platelet Count Result 198 k/mm3 (150-375); Red Blood Count 3.01 M/mm3 (4.2-5.4); Red Cell Distribution Width 14.4 % (11.5-14.5); White Blood Count 5.1 K/mm3 (4.5-10.0)
[2023-06-30 14:38] VITALS: BP 100/43; PULSE 73; RESP 14; O2SAT 97
[2023-06-30 14:40] LABS: Sodium 139 mmol/L (137-145)
[2023-06-30 14:42] LABS: INR 1.6; Prothrombin Time 20.2 Seconds (11.1-14.7)
[2023-06-30 14:43] LABS: Partial Thromboplastin Time 30.2 SECONDS (22.3-36.8)
[2023-06-30 14:46] LABS: Alanine Aminotransferase 21 U/L (6-35); Albumin Level 3.7 g/dL (3.5-5.1); Alkaline Phosphatase 124 U/L (38-126); Anion Gap 7 mmol/L (8-16); Aspartate Amino Transferase 22 U/L (14-36); Bilirubin,Total 0.5 mg/dL (0.2-1.3); Blood Urea Nitrogen 68 mg/dL (7-17); Calcium 8.7 mg/dL (8.4-10.2); Carbon Dioxide 31 mmol/L (22-30); Chloride 101 mmol/L (98-107); Estimated Glomerular Filt Rate 37; Glucose 102 mg/dL (65-110); Lipase 68 U/L (23-300); Potassium 5.7 mmol/L (3.4-5.0)
[2023-06-30 14:48] LABS: Hypochromasia 1+ (NORMAL); Ovalocytes 1+ (NORMAL); Platelet Estimate Adequate (Adequate); Schistocytes None Seen (NORMAL)
[2023-06-30 14:52] LABS: Troponin I < 0.012 ng/mL (0.000-0.034)
--- NOTE | 2023-06-30 15:24 | PC.NURSE ---
Pt taken for CT at this time
[2023-06-30 15:30] LABS: Appearance Urine Cloudy (Clear); Bacteria Urine 4+ /hpf; Bilirubin Urine Negative (Negative); Blood Urine 3+ (Negative); Color Urine Yellow (Yellow); Glucose Urine UA Negative (Negative); Ketones Urine Negative (Negative); Leukocyte Esterase Ur 3+ LEU/UL (Negative); Mucus Urine Present /lpf; Need Manual Microscopic Reviewed; Nitrate Urine Positive (Negative); Protein Urine Trace mg/dL (Negative); RBC Urine 21-50 /hpf (0-2); Specific Grav Ur 1.008 (1.001-1.035); Squamous Epithelial Cell Urine None seen /hpf (Few); Urobilinogen Urine 0.2 mg/dL (<2.0); WBC Urine >100 /hpf
[2023-06-30 15:37] LABS: Add Urine Microscopic? YES
[2023-06-30 15:47] LABS: Influenza A QL RT-PCR Negative (Negative); Influenza B QL RT-PCR Negative (Negative); SARS-CoV-2 RNA PCR Positive (Negative)
[2023-06-30 16:23] VITALS: PULSE 70; RESP 20; O2SAT 93
[2023-06-30] MEDS: SODIUM CHLORIDE 0.9% IV 1,000 ML 999 ML IV CONT (17:00)
[2023-06-30 17:02] LABS: Glucose Point of Care 67 mg/dl (65-105)
[2023-06-30] MEDS: DEXTROSE 50% 25 GM/50 ML SYRINGE IV PUSH (17:09)
[2023-06-30] MEDS: CALCIUM GLUCONATE 1,000 MG/10 ML VIAL 1000 MG IV PUSH (17:09)
[2023-06-30] MEDS: INSULIN HUMAN REGULAR (*BKC) 100 UNITS/ML 10 UNITS IV PUSH (17:10)
[2023-06-30] MEDS: SODIUM POLYSTYRENE SULFONONATE 15 GM/60 ML BTL 30 GM PO (17:11)
[2023-06-30 17:52] LABS: Troponin I < 0.012 ng/mL (0.000-0.034)
[2023-06-30 18:05] LABS: Glucose Point of Care 117 mg/dl (65-105)
[2023-06-30 20:10] LABS: Glucose Point of Care 53 mg/dl (65-105)
--- NOTE | 2023-06-30 20:13 | ADMGEN ---
This patient, Valerie Nguyen, was admitted to Medical Room 257-01. Patient/family oriented to hospital policies and general routines including ID bracelet, bed and alarms, visiting hours, pain management, procedures, bathroom and other care routines, personal items, smoking policy, room service/diet, and visiting hours. Information on how to activate the Rapid Response Team has been discussed. Patient/Family are encouraged to report perceived risks to care and to ask questions if they do not understand what they are told or what they should do.
--- NOTE | 2023-06-30 20:30 | PM.IMHP ---
H&P: HPI History of Present Illness Date/Time: 06/30/23 20:30 [facility] Past Medical History Medical History Anemia Anxiety Arthritis Asthma Bipolar disorder Chronic anticoagulation For history of DVT and PE. Chronic kidney disease Chronic obstructive pulmonary disease Chronic pain syndrome Deep venous thrombosis Depression Diastolic dysfunction Eczema Epilepsy Gastroesophageal reflux disease Herniated disc History of MRSA infection Hyperlipidemia Hypertension Insulin dependent diabetes mellitus Historically poorly controlled. Obesity Obstructive sleep apnea Non compliant with treatment. Peripheral neuropathy Personal history of noncompliance with medical treatment and regimen Pulmonary embolism Seizures Suicide attempt T11 vertebral fracture Nondisplaced fracture of the right T11 inferior articulating facet. No surgical intervention required. Surgical History Surgical History History of bilateral knee replacement History of cardiac catheterization History of cardiac pacemaker For paroxysmal ventricular arrhythmia/tachycardia. History of cholecystectomy Family History Family History Mother Heart disease Acute myocardial infarction Uterine cancer COVID-19 Diabetes mellitus Hypertension Kidney disease Father Heart disease Social History Social History Social History: Surrogate medical decision maker: Meño Marquez, significant other. Code status: Full code. Smoking packs per day: 1.5 Smoking cigarettes per day: 30.0 Years smoked: 9 Smoking pack-years: 13.50 Smoking status: Never smoker Second hand tobacco smoke exposure: Yes Alcohol intake: never Substance use: never Substance use type: does not use Lack of Transportation: No Lack of Food: Never True Current Housing: I Have Housing Concerned About Future Housing: No Difficulty Paying Gas/Electric Bills: No Difficulty Paying for Meds: No Currently Unemployed: No Education: Grade School Difficulty w/ Childcare or Family Care: No Living arrangements: with family Additional living arrangements comments: . Four children being raised by her sister. Additional occupation/education comments: Disabled. Spiritual care concerns: No Meds Home Medications and Allergies Home Medications Medication Instructions Recorded Confirmed Type furosemide 20 mg tablet 40 mg PO BID 01/18/22 06/30/23 History albuterol sulfate 90 mcg/actuation 2 puff inhalation Q4H PRN 04/22/22 06/30/23 History aerosol inhaler Shortness Of Breath famotidine 20 mg tablet (Pepcid) 20 mg PO DAILY 04/22/22 06/30/23 History lisinopril 20 mg tablet 20 mg PO DAILY 04/22/22 06/30/23 History loratadine 10 mg tablet 10 mg PO DAILY 04/22/22 06/30/23 History tolnaftate 1 % topical powder 1 applic topical Q12HR #45 grams 04/29/22 06/30/23 Rx gabapentin 300 mg capsule 300 mg PO TID 09/21/22 06/30/23 History levetiracetam 500 mg tablet 500 mg PO BID 10/15/22 06/30/23 History bisacodyl 10 mg rectal suppository 10 mg RECTAL DAILY PRN Constipation 12/18/22 06/30/23 History glucagon 1 mg solution for 1 mg subcut Q1H PRN Hypoglycemia 12/18/22 06/30/23 History injection (GlucaGen HypoKit) insulin glargine 100 unit/mL (3 10 unit subcut QPM 12/18/22 06/30/23 History mL) subcutaneous pen (Lantus Solostar U-100 Insulin) polyethylene glycol 3350 17 gram 17 g PO DAILY PRN Constipation 12/18/22 06/30/23 History oral powder packet insulin lispro 100 unit/mL 7 unit subcut TIDWM 04/04/23 06/30/23 History subcutaneous solution trazodone 50 mg tablet 100 mg PO HS 04/04/23 06/30/23 History apixaban 5 mg tablet (Eliquis) 5 mg PO Q12H #1 tablet 04/09/23 06/30/23 Rx docusate sodium 100 mg capsule 100 mg PO DAILY Constipation
[2023-06-30 20:41] LABS: Troponin I < 0.012 ng/mL (0.000-0.034)
[2023-06-30] MEDS: TOLNAFTATE 1% POWDER 45 GM BTL 1 APPLIC TOPICAL (21:30)
[2023-06-30 21:45] LABS: Glucose Point of Care 145 mg/dl (65-105)
[2023-06-30 22:00] VITALS: BP 123/65; PULSE 96; RESP 20; TEMP 36.6; O2SAT 100
--- NOTE | 2023-06-30 23:20 | PC.NURSE ---
Patient refuses to keep arm straight with IV in it to infuse IV fluids. Attempt to restart new IV twice by different nurses, not successful. Patient refusing another IV at this time, current IV was put in by ultrasound. Dr. Jodie grissom.
[2023-07-01] MEDS: ACETAMINOPHEN 325 MG TABLET 650 MG PO ×2 (04:25→20:35)
[2023-07-01] MEDS: LACTATED RINGERS 1,000 ML 125 ML IV CONT ×2 (05:10→20:35)
[2023-07-01 06:00] VITALS: BP 116/62; PULSE 77; RESP 20; TEMP 36.3; O2SAT 96
[2023-07-01 06:51] LABS: Glucose Point of Care 152 mg/dl (65-105)
--- NOTE | 2023-07-01 07:27 | PM.IMHP ---
H&P: HPI History of Present Illness Date/Time: 07/01/23 07:27 Chief Complaint: Cough, shortness of breath, dysuria Narrative: 47 years old lady with history of multiple comorbidities, including seizure, hypertension, COPD, DVT, hyperlipidemia, type 2 diabetes insulin, EAMON, psychiatric disorders, brought to ED from [facility] because of cough, shortness breath, dysuria. Patient has been having worsening cough in possible days, and has some shortness in past few more days. Patient has bilateral chest pain associated with cough and deep breath. Patient has a sore throat. And patient also has low abnormal wall pain, dysuria, urinary urgency frequency. Patient was brought to ED for evaluation. In the ED patient was found have anemia, hemoglobin close baseline, hyperkalemia 5.7, elevated BUN creatinine CT 8/1.5 above baseline creatinine 1.1 June 11,. UA shows pyuria, microscopic hematuria,, urine looks cloudy. COVID screen positive. CT abdomen pelvis suggests cellulitis of lower abdominal wall. Review of Systems Review of Systems: Patient is a poor historian, I am unable to review of system completely except above [facility] Past Medical History Medical History (Updated 07/01/23 @ 07:43 by Yoseph Shah MD) Anemia Anxiety Arthritis Asthma Bipolar disorder Chronic anticoagulation For history of DVT and PE. Chronic kidney disease Chronic obstructive pulmonary disease Chronic pain syndrome Deep venous thrombosis Depression Diastolic dysfunction Eczema Epilepsy Gastroesophageal reflux disease Herniated disc History of MRSA infection Hyperlipidemia Hypertension Insulin dependent diabetes mellitus Historically poorly controlled. Obesity Obstructive sleep apnea Non compliant with treatment. Peripheral neuropathy Personal history of noncompliance with medical treatment and regimen Pulmonary embolism Seizures Suicide attempt T11 vertebral fracture Nondisplaced fracture of the right T11 inferior articulating facet. No surgical intervention required. UTI (urinary tract infection) Surgical History Surgical History History of bilateral knee replacement History of cardiac catheterization History of cardiac pacemaker For paroxysmal ventricular arrhythmia/tachycardia. History of cholecystectomy Family History Family History Mother Heart disease Acute myocardial infarction Uterine cancer COVID-19 Diabetes mellitus Hypertension Kidney disease Father Heart disease Social History Social History Social History: Surrogate medical decision maker: Meño Marquez, significant other. Code status: Full code. Smoking packs per day: 1.5 Smoking cigarettes per day: 30.0 Years smoked: 9 Smoking pack-years: 13.50 Smoking status: Never smoker Second hand tobacco smoke exposure: Yes Alcohol intake: never Substance use: never Substance use type: does not use Lack of Transportation: No Lack of Food: Never True Current Housing: I Have Housing Concerned About Future Housing: No Difficulty Paying Gas/Electric Bills: No Difficulty Paying for Meds: No Currently Unemployed: No Education: Don't Know Difficulty w/ Childcare or Family Care: No Living arrangements: with family Additional living arrangements comments: . Four children being raised by her sister. Additional occupation/education comments: Disabled. Spiritual care concerns: No Meds Home Medications and Allergies Home Medications Medication Instructions Recorded Confirmed Type furosemide 20 mg tablet 40 mg PO BID 01/18/22 06/30/23 History albuterol sulfate 90 mcg/actuation 2 puff inhalation Q4H PRN 04/22/22 06/30/23 History aerosol inhaler Shortness Of Breath famotidine 20 mg tablet (Pepcid) 20 mg PO DAILY 04/22/22 06/30/23 History
[2023-07-01 08:47] LABS: Glucose Point of Care 133 mg/dl (65-105)
[2023-07-01 09:12] VITALS: PULSE 78
[2023-07-01] MEDS: FUROSEMIDE 40 MG TABLET PO ×2 (09:12→17:10)
[2023-07-01] MEDS: TORSEMIDE 10 MG TABLET PO (09:12)
[2023-07-01] MEDS: FAMOTIDINE 20 MG TABLET PO (09:12)
[2023-07-01] MEDS: APIXABAN 5 MG TABLET PO ×2 (09:12→20:36)
[2023-07-01] MEDS: GABAPENTIN 300 MG CAPSULE PO ×3 (09:12→17:10)
[2023-07-01] MEDS: METOPROLOL TARTRATE 12.5 MG TABLET PO ×2 (09:12→20:36)
[2023-07-01] MEDS: lisinopriL 20 MG TABLET PO (09:13)
[2023-07-01] MEDS: DOCUSATE SODIUM 100 MG CAPSULE PO (09:13)
[2023-07-01] MEDS: levETIRAcetam 500 MG TABLET PO ×2 (09:13→20:35)
[2023-07-01] MEDS: FERROUS SULFATE 325 MG TABLET DR PO ×2 (09:13→17:10)
[2023-07-01] MEDS: SODIUM ZIRCONIUM CYCLOSILICATE 10 GM POWD.PACK PO (09:13)
[2023-07-01] MEDS: LORATADINE 10 MG TABLET PO (09:13)
[2023-07-01] MEDS: TOLNAFTATE 1% POWDER 45 GM BTL 1 APPLIC TOPICAL ×2 (09:14→20:36)
[2023-07-01] MEDS: INSULIN ASPART (*BKC) 100 UNITS/ML 7 UNITS SUB-Q ×3 (09:16→17:20)
[2023-07-01 10:20] LABS: Basophils Percent Auto 0.6 % (0.2-1.2); Eosinophils Percent Auto 0.8 % (0-4.4); Hematocrit 28.4 % (37.0-47.0); Hemoglobin 8.1 g/dL (12.0-15.0); Immature Granulocyte Absolute 0.02 K/mm3 (0.00-0.031); Immature Granulocyte Percent A 0.4 % (0-0.5); Lymphocytes Absolute Auto 0.88 K/mm3 (0.9-3.2); Lymphocytes Percent Auto 16.7 % (18.3-44.2); Mean Corpuscular HGB Conc 28.5 g/dl (32-36); Mean Corpuscular Hemoglobin 28.2 pg (26-34); Mean Platelet Volume 9.1 fl (7.4-10.4); Monocytes Absolute Auto 0.8 K/mm3 (0.1-0.6); Monocytes Percent Auto 15.6 % (2.6-8.5); Neutrophils Absolute Auto 3.5 K/mm3 (1.3-6.7); Neutrophils Percent Auto 65.9 % (45.5-73.1); Platelet Count Result 164 k/mm3 (150-375); Red Blood Count 2.87 M/mm3 (4.2-5.4); Red Cell Distribution Width 14.5 % (11.5-14.5); White Blood Count 5.3 K/mm3 (4.5-10.0)
[2023-07-01 10:29] LABS: Anion Gap 8 mmol/L (8-16); Blood Urea Nitrogen 60 mg/dL (7-17); Calcium 8.2 mg/dL (8.4-10.2); Carbon Dioxide 28 mmol/L (22-30); Chloride 101 mmol/L (98-107); Estimated Glomerular Filt Rate 48; Glucose 199 mg/dL (65-110); Potassium 5.5 mmol/L (3.4-5.0); Sodium 137 mmol/L (137-145)
[2023-07-01 10:44] LABS: Hypochromasia 1+ (NORMAL); Platelet Estimate Adequate (Adequate)
[2023-07-01 10:45] LABS: Schistocytes None Seen (NORMAL)
[2023-07-01 12:34] LABS: Glucose Point of Care 148 mg/dl (65-105)
[2023-07-01 14:32] VITALS: BP 146/89; PULSE 73; RESP 16; TEMP 36.8; O2SAT 100
[2023-07-01] MEDS: cefTRIAXone 2 GM/NS 100 ML 2 GM/100 ML BAG IVPB (16:11)
[2023-07-01] MEDS: REMDESIVIR 200 MG/NS 250 ML 200 MG/250 ML BAG 250 MG IVPB (17:10)
[2023-07-01] MEDS: INSULIN GLARGINE (*BKC) 100 UNITS/ML 10 UNITS SUB-Q (17:22)
[2023-07-01 17:34] LABS: Glucose Point of Care 141 mg/dl (65-105)
[2023-07-01 19:44] VITALS: BP 111/52; PULSE 62; RESP 18; TEMP 36.9; O2SAT 100
[2023-07-01 20:36] VITALS: PULSE 62
[2023-07-01] MEDS: ALPRAZolam (*CRX) 0.5 MG TABLET PO (20:36)
[2023-07-01] MEDS: traZODone HCL 50 MG TABLET 100 MG PO (20:36)
[2023-07-01 20:37] LABS: Glucose Point of Care 158 mg/dl (65-105)
[2023-07-02] MEDS: LACTATED RINGERS 1,000 ML 125 ML IV CONT ×2 (03:35→11:16)
[2023-07-02 06:00] VITALS: BP 122/60; PULSE 65; RESP 18; TEMP 36.7; O2SAT 100
[2023-07-02 06:03] LABS: Basophils Percent Auto 0.3 % (0.2-1.2); Hematocrit 28.7 % (37.0-47.0); Hemoglobin 8.4 g/dL (12.0-15.0); Immature Granulocyte Absolute 0.02 K/mm3 (0.00-0.031); Immature Granulocyte Percent A 0.5 % (0-0.5); Lymphocytes Absolute Auto 0.48 K/mm3 (0.9-3.2); Mean Corpuscular HGB Conc 29.3 g/dl (32-36); Mean Corpuscular Hemoglobin 28.6 pg (26-34); Mean Corpuscular Volume 97.6 fl (80-100); Mean Platelet Volume 9.2 fl (7.4-10.4); Monocytes Absolute Auto 0.3 K/mm3 (0.1-0.6); Monocytes Percent Auto 6.8 % (2.6-8.5); Neutrophils Absolute Auto 2.9 K/mm3 (1.3-6.7); Neutrophils Percent Auto 79.4 % (45.5-73.1); Platelet Count Result 154 k/mm3 (150-375); Red Blood Count 2.94 M/mm3 (4.2-5.4); Red Cell Distribution Width 14.1 % (11.5-14.5); White Blood Count 3.7 K/mm3 (4.5-10.0)
[2023-07-02 06:14] LABS: Anion Gap 7 mmol/L (8-16); Blood Urea Nitrogen 55 mg/dL (7-17); Calcium 8.5 mg/dL (8.4-10.2); Carbon Dioxide 30 mmol/L (22-30); Chloride 103 mmol/L (98-107); Estimated Glomerular Filt Rate 48; Glucose 299 mg/dL (65-110); Potassium 5.3 mmol/L (3.4-5.0); Sodium 140 mmol/L (137-145)
[2023-07-02 06:49] LABS: Hypochromasia 1+ (NORMAL); Platelet Estimate Adequate (Adequate); Schistocytes None Seen (NORMAL); Tear Drop Cells 1+ (NORMAL)
[2023-07-02 08:39] LABS: Glucose Point of Care 292 mg/dl (65-105)
[2023-07-02] MEDS: INSULIN ASPART (*BKC) 100 UNITS/ML 7 UNITS SUB-Q ×3 (08:47→17:33)
[2023-07-02 08:51] VITALS: PULSE 64
[2023-07-02] MEDS: FERROUS SULFATE 325 MG TABLET DR PO ×2 (08:51→16:22)
[2023-07-02] MEDS: DOCUSATE SODIUM 100 MG CAPSULE PO (08:51)
[2023-07-02] MEDS: LORATADINE 10 MG TABLET PO (08:51)
[2023-07-02] MEDS: levETIRAcetam 500 MG TABLET PO ×2 (08:51→20:29)
[2023-07-02] MEDS: FAMOTIDINE 20 MG TABLET PO (08:51)
[2023-07-02] MEDS: METOPROLOL TARTRATE 12.5 MG TABLET PO ×2 (08:51→20:28)
[2023-07-02] MEDS: FUROSEMIDE 40 MG TABLET PO ×2 (08:51→16:22)
[2023-07-02] MEDS: GABAPENTIN 300 MG CAPSULE PO ×3 (08:52→16:23)
[2023-07-02] MEDS: APIXABAN 5 MG TABLET PO ×2 (08:52→20:27)
[2023-07-02] MEDS: TORSEMIDE 10 MG TABLET PO (08:52)
[2023-07-02] MEDS: SODIUM ZIRCONIUM CYCLOSILICATE 10 GM POWD.PACK PO (08:53)
[2023-07-02] MEDS: TOLNAFTATE 1% POWDER 45 GM BTL 1 APPLIC TOPICAL ×2 (08:54→20:29)
[2023-07-02] MEDS: lisinopriL 20 MG TABLET PO (08:55)
[2023-07-02 09:35] VITALS: RESP 18; O2SAT 100
[2023-07-02] MEDS: cefTRIAXone 2 GM/NS 100 ML 2 GM/100 ML BAG IVPB (11:19)
[2023-07-02 12:05] LABS: Glucose Point of Care 330 mg/dl (65-105)
[2023-07-02 14:00] VITALS: BP 126/62; PULSE 62; RESP 16; TEMP 36.8; O2SAT 99
[2023-07-02] MEDS: ALPRAZolam (*CRX) 0.5 MG TABLET PO ×2 (16:23→20:27)
[2023-07-02] MEDS: ACETAMINOPHEN 325 MG TABLET 650 MG PO (16:23)
[2023-07-02 17:22] LABS: Glucose Point of Care 394 mg/dl (65-105)
--- NOTE | 2023-07-02 17:27 | PM.IMPN ---
Progress Note: A&P Assessment and Plan (1) Cellulitis of abdominal wall: Code(s): L03.311 - Cellulitis of abdominal wall Status: Acute (2) Abdominal wall cellulitis: Code(s): L03.311 - Cellulitis of abdominal wall Status: Acute (3) UTI (urinary tract infection): Qualifiers: Encounter type: initial encounter Indwelling urinary catheter type: indwelling urethral catheter Urinary tract infection type: catheter-associated UTI Qualified Code(s): T83.511A - Infection and inflammatory reaction due to indwelling urethral catheter, initial encounter; N39.0 - Urinary tract infection, site not specified Code(s): N39.0 - Urinary tract infection, site not specified Status: Acute (4) COVID-19 virus infection: Code(s): U07.1 - COVID-19 Status: Acute (5) Chest pain: Code(s): R07.9 - Chest pain, unspecified Status: Acute (6) Heart failure: Code(s): I50.9 - Heart failure, unspecified Status: Acute (7) Complicated UTI (urinary tract infection): Code(s): N39.0 - Urinary tract infection, site not specified Status: Acute (8) Acute hyperkalemia: Code(s): E87.5 - Hyperkalemia Status: Acute (9) Anemia: Qualifiers: Anemia type: unspecified type Qualified Code(s): D64.9 - Anemia, unspecified Code(s): D64.9 - Anemia, unspecified Status: Acute Plan 1. COVID-19 pneumonia Patient has severe cough, shortness breath, x-ray shows pulmonary interstitial changes Patient has history of COPD Will start remdesivir IV, start bronchodilators scheduled and p.r.n. Start O2 therapy p.r.n. Monitor pulse ox closely 07/02: schedule bronchodilators qid (Albuterol) stop IVF. PT is volume overloaded pt not on o2 yet 2. Cellulitis of bilateral groin and suprapubic skin, superimposed with fungal infection Will start ceftriaxone and doxycycline IV, tolnaftate topical bilateral groin 07/02: cefazolin for 7 days is sufficient. If it does not resolve, can add doxy tolfanate is fine 3. Complicated UTI UA shows pyuria, microscopic hematuria Patient is on ceftriaxone Follow urine culture 07/02: unclear if the pt has an indwelling garner. This may need to be changed. cipro for 7 days for uti. pt has enterobacter which is resistant to everything except fluoroquinolone, bactrim, nitrofurantoin 4. Diastolic heart failure Continue furosemide 40 mg b.i.d. p.o., torsemide 10 mg daily p.o. Follow-up input output and BMP 07/02: pt does not need to be on both furosemide and torsemide stopping torsemide. continuing furosemide stopping ivf repeat bmp/cbc series tomorrow 5. History of seizure Continue Keppra 500 mg b.i.d. p.o. 6. JAYESH with hyperkalemia 07/02: unclear what is the cause. dehydration vs cardiorenal stopping ivf, continuing furosemide. f/u am bnp 7. Type 2 diabetes and diabetic neuropathy Continue Lantus 10 unit subcu Insulin lispro t.i.d. subQ Start insulin sliding scale a.c. q.h.s. 07/02: increase lantus to 14u at night. last glucose today was 396 start iss 8. Hypertension Continue lisinopril 20 mg daily metoprolol 12.5 mg b.i.d. p.o. I spent 60 minutes for patient care, including reviewed chart, labs, images study, repeat assessments plans, counseling patient Subjective Date/time seen: 07/02/23 17:27 Interval history: pt complaining of dyspnea, cough, worsening during hospitalization, leg swelling and pain, worsening since hospitalization. Also complaining she cannot see her kids due to her having covid Exam Narrative: GENERAL:? Lethargic in no acute distress. Well-nourished.? Obesity - EYES: EOMI. Anicteric. - HENT: Moist mucous membranes. - LUNGS:? decreased bs bl at bases - CARDIOVASCULAR: Regular rate and rhythm. No murmur. No JVD. - ABDOMEN: Soft, non-tender and non-distended. No palpable masses. abd has swelling on it peripherally. - EXTREMITIES: 3+ pitting LE edema with significant tenderness. - NE
[2023-07-02] MEDS: INSULIN ASPART (*BKC) 100 UNITS/ML SUB-Q (17:33)
[2023-07-02] MEDS: ceFAZolin 1 GM/NS 50 ML 1 GM/50 ML BAG IVPB (17:34)
[2023-07-02] MEDS: INSULIN GLARGINE (*BKC) 100 UNITS/ML 14 UNITS SUB-Q (17:38)
[2023-07-02 20:26] VITALS: BP 132/57; PULSE 70; RESP 16; TEMP 36.3; O2SAT 100
[2023-07-02] MEDS: guaiFENesin 12 HR 600 MG TABCR PO (20:27)
[2023-07-02] MEDS: CIPROFLOXACIN 500 MG TAB PO (20:27)
[2023-07-02 20:28] VITALS: PULSE 70
[2023-07-02] MEDS: traMADol HCL (*CRX) 50 MG TABLET PO (20:28)
[2023-07-02] MEDS: traZODone HCL 50 MG TABLET 100 MG PO (20:28)
[2023-07-02 20:39] LABS: Glucose Point of Care 408 mg/dl (65-105)
[2023-07-02] MEDS: ALBUTEROL SULFATE (*SP) AEROSOL 1 PUFF 2 PUFF INHALATION (21:00)
[2023-07-02] MEDS: INSULIN ASPART (*BKC) 100 UNITS/ML 8 UNITS SUB-Q (21:51)
[2023-07-02] MEDS: REMDESIVIR 100 MG/NS 250 ML 100 MG/250 ML BAG 250 MG IVPB (21:51)
[2023-07-02 23:43] LABS: Glucose Point of Care 381 mg/dl (65-105)
[2023-07-03] VITALS (8 sets, daily range): BP systolic 130–132; BP diastolic 60–80; PULSE 67–83; RESP 16–20; TEMP 36.4–36.6; O2SAT 98–99
[2023-07-03] MEDS: INSULIN ASPART (*BKC) 100 UNITS/ML 8 UNITS SUB-Q (00:18)
[2023-07-03] MEDS: MORPHINE SULFATE (*CRX) 2 MG/ML INJ IV PUSH (00:19)
[2023-07-03] MEDS: traMADol HCL (*CRX) 50 MG TABLET PO ×4 (02:28→22:57)
[2023-07-03] MEDS: ceFAZolin 1 GM/NS 50 ML 1 GM/50 ML BAG IVPB ×3 (02:29→17:45)
[2023-07-03 06:09] LABS: Basophils Percent Auto 0.2 % (0.2-1.2); Eosinophils Percent Auto 0.2 % (0-4.4); Hematocrit 28.4 % (37.0-47.0); Hemoglobin 8.4 g/dL (12.0-15.0); Immature Granulocyte Absolute 0.03 K/mm3 (0.00-0.031); Immature Granulocyte Percent A 0.6 % (0-0.5); Lymphocytes Absolute Auto 0.73 K/mm3 (0.9-3.2); Lymphocytes Percent Auto 13.9 % (18.3-44.2); Mean Corpuscular HGB Conc 29.6 g/dl (32-36); Mean Corpuscular Hemoglobin 28.8 pg (26-34); Mean Corpuscular Volume 97.3 fl (80-100); Mean Platelet Volume 10.1 fl (7.4-10.4); Monocytes Absolute Auto 0.6 K/mm3 (0.1-0.6); Monocytes Percent Auto 11.8 % (2.6-8.5); Neutrophils Absolute Auto 3.9 K/mm3 (1.3-6.7); Neutrophils Percent Auto 73.3 % (45.5-73.1); Platelet Count Result 191 k/mm3 (150-375); Red Blood Count 2.92 M/mm3 (4.2-5.4); Red Cell Distribution Width 13.9 % (11.5-14.5); White Blood Count 5.3 K/mm3 (4.5-10.0)
[2023-07-03 06:21] LABS: Anion Gap 11 mmol/L (8-16); Blood Urea Nitrogen 56 mg/dL (7-17); Calcium 8.5 mg/dL (8.4-10.2); Carbon Dioxide 29 mmol/L (22-30); Chloride 100 mmol/L (98-107); Estimated Glomerular Filt Rate 59; Glucose 243 mg/dL (65-110); Potassium 4.6 mmol/L (3.4-5.0); Sodium 140 mmol/L (137-145)
[2023-07-03 06:28] LABS: NT Pro B Type Natriuretic Pept 4710 pg/mL (19.9-100)
[2023-07-03 08:30] LABS: Glucose Point of Care 227 mg/dl (65-105)
[2023-07-03 08:33] LABS: Alanine Aminotransferase 20 U/L (6-35); Albumin Level 3.8 g/dL (3.5-5.1); Alkaline Phosphatase 112 U/L (38-126); Aspartate Amino Transferase 24 U/L (14-36); Bilirubin,Total 0.4 mg/dL (0.2-1.3); INR 1.4
[2023-07-03] MEDS: ALBUTEROL SULFATE (*SP) INHALER 2 PUFF INHALATION ×4 (08:38→20:51)
[2023-07-03] MEDS: METOPROLOL TARTRATE 12.5 MG TABLET PO ×2 (08:43→20:50)
[2023-07-03] MEDS: SODIUM ZIRCONIUM CYCLOSILICATE 10 GM POWD.PACK PO (08:43)
[2023-07-03] MEDS: GABAPENTIN 300 MG CAPSULE PO ×3 (08:44→17:43)
[2023-07-03] MEDS: guaiFENesin 12 HR 600 MG TABCR PO ×2 (08:44→20:49)
[2023-07-03] MEDS: CIPROFLOXACIN 500 MG TAB PO ×2 (08:44→20:49)
[2023-07-03] MEDS: lisinopriL 20 MG TABLET PO (08:44)
[2023-07-03] MEDS: APIXABAN 5 MG TABLET PO (08:44)
[2023-07-03] MEDS: FAMOTIDINE 20 MG TABLET PO (08:44)
[2023-07-03] MEDS: levETIRAcetam 500 MG TABLET PO ×2 (08:44→20:51)
[2023-07-03] MEDS: ALPRAZolam (*CRX) 0.5 MG TABLET PO ×3 (08:44→20:49)
[2023-07-03] MEDS: DOCUSATE SODIUM 100 MG CAPSULE PO (08:44)
[2023-07-03] MEDS: FUROSEMIDE 40 MG TABLET PO (08:44)
[2023-07-03] MEDS: INSULIN ASPART (*BKC) 100 UNITS/ML SUB-Q ×4 (08:45→20:51)
[2023-07-03] MEDS: INSULIN ASPART (*BKC) 100 UNITS/ML 7 UNITS SUB-Q ×3 (08:45→17:45)
[2023-07-03] MEDS: LORATADINE 10 MG TABLET PO (08:45)
[2023-07-03] MEDS: TOLNAFTATE 1% POWDER 45 GM BTL 1 APPLIC TOPICAL ×2 (08:46→22:57)
[2023-07-03] MEDS: ACETAMINOPHEN 325 MG TABLET 650 MG PO (12:02)
[2023-07-03] MEDS: FERROUS SULFATE 325 MG TABLET DR PO ×2 (12:02→17:43)
[2023-07-03 12:59] LABS: Glucose Point of Care 277 mg/dl (65-105)
[2023-07-03] MEDS: ONDANSETRON INJ 4 MG/2 ML VIAL IV PUSH (14:42)
--- NOTE | 2023-07-03 16:55 | PM.IMPN ---
Progress Note: A&P Assessment and Plan (1) Cellulitis of abdominal wall: Code(s): L03.311 - Cellulitis of abdominal wall Status: Acute (2) Abdominal wall cellulitis: Code(s): L03.311 - Cellulitis of abdominal wall Status: Acute (3) UTI (urinary tract infection): Qualifiers: Encounter type: initial encounter Indwelling urinary catheter type: indwelling urethral catheter Urinary tract infection type: catheter-associated UTI Qualified Code(s): T83.511A - Infection and inflammatory reaction due to indwelling urethral catheter, initial encounter; N39.0 - Urinary tract infection, site not specified Code(s): N39.0 - Urinary tract infection, site not specified Status: Acute (4) COVID-19 virus infection: Code(s): U07.1 - COVID-19 Status: Acute (5) Chest pain: Code(s): R07.9 - Chest pain, unspecified Status: Acute (6) Heart failure: Code(s): I50.9 - Heart failure, unspecified Status: Acute (7) Complicated UTI (urinary tract infection): Code(s): N39.0 - Urinary tract infection, site not specified Status: Acute (8) Acute hyperkalemia: Code(s): E87.5 - Hyperkalemia Status: Acute (9) Anemia: Qualifiers: Anemia type: unspecified type Qualified Code(s): D64.9 - Anemia, unspecified Code(s): D64.9 - Anemia, unspecified Status: Acute Plan 1. COVID-19 pneumonia Patient has severe cough, shortness breath, x-ray shows pulmonary interstitial changes Patient has history of COPD Will start remdesivir IV, start bronchodilators scheduled and p.r.n. Start O2 therapy p.r.n. Monitor pulse ox closely 07/02: schedule bronchodilators qid (Albuterol) stop IVF. PT is volume overloaded pt not on o2 yet 07/03: ct current covid treatment with remdesivir, scheduled albuterol qid, and dexamethasone. pt is not on o2. 2. Cellulitis of bilateral groin and suprapubic skin, superimposed with fungal infection Will start ceftriaxone and doxycycline IV, tolnaftate topical bilateral groin 07/02: cefazolin for 7 days is sufficient. If it does not resolve, can add doxy tolfanate is fine 07/03: complete dose of cefazolin and tolfanate (increased to tid) for diffuse fungal infection in epicanthal folds 3. Complicated UTI UA shows pyuria, microscopic hematuria Patient is on ceftriaxone Follow urine culture 07/02: unclear if the pt has an indwelling garner. last garner change 06/30 cipro for 7 days for uti. pt has enterobacter which is resistant to everything except fluoroquinolone, bactrim, nitrofurantoin 4. Diastolic heart failure Continue furosemide 40 mg b.i.d. p.o., torsemide 10 mg daily p.o. Follow-up input output and BMP 07/02: pt does not need to be on both furosemide and torsemide stopping torsemide. continuing furosemide stopping ivf repeat bmp/cbc series tomorrow 07/03: bnp elevated from 2039 to 4710 over the last month. pt likely has iatrogenic volume overload from IVF, chf exacerbation from covid, and worsening fluid retention from OHS/EAMON and steroids. increase lasix to 40 mg ivp with close monitoring of cr 5. History of seizure Continue Keppra 500 mg b.i.d. p.o. 6. JAYESH with hyperkalemia 07/02: unclear what is the cause. dehydration vs cardiorenal stopping ivf, continuing furosemide. f/u am bnp 07/03: JAYESH resolved. cr 1.0 now 7. Type 2 diabetes and diabetic neuropathy Continue Lantus 10 unit subcu Insulin lispro t.i.d. subQ Start insulin sliding scale a.c. q.h.s. 07/02: increase lantus to 14u at night. last glucose today was 396 start iss 07/03: increasing lantus to [address] iss + 7 u tid wm. will give 3 u of regular insulin sq for glucose of 345 again now. 8. Hypertension Continue lisinopril 20 mg daily metoprolol 12.5 mg b.i.d. p.o. 9. EAMON/OHS 07/03: f/u ABG during wakefulness while not on o2 to diagnose start cpap 5 at night f/u tsh/ft4 10. RLE DVT while on eliquis 07/03: states that she did n
[2023-07-03 17:04] LABS: Glucose Point of Care 345 mg/dl (65-105)
--- NOTE | 2023-07-03 17:41 | PCRCNOTE ---
Pt. refused to have an ABG drawn; Dr. Galvez notified.
[2023-07-03] MEDS: FUROSEMIDE INJ 40 MG/4 ML VIAL IV PUSH (17:42)
[2023-07-03] MEDS: WARFARIN (*PBKC) 5 MG TABLET PO (17:42)
[2023-07-03] MEDS: ENOXAPARIN 120 MG/0.8 ML SYRINGE 110 MG SUB-Q (17:43)
[2023-07-03] MEDS: INSULIN HUMAN REGULAR (*BKC) 100 UNITS/ML SUB-Q (17:43)
[2023-07-03] MEDS: INSULIN GLARGINE (*BKC) 100 UNITS/ML 16 UNITS SUB-Q (17:44)
[2023-07-03] MEDS: traZODone HCL 50 MG TABLET 100 MG PO (20:49)
[2023-07-03] MEDS: oxyCODONE HCL (*CRX) 5 MG TAB IR PO (20:50)
[2023-07-03 22:33] LABS: Glucose Point of Care 363 mg/dl (65-105)
[2023-07-03] MEDS: REMDESIVIR 100 MG/NS 250 ML 100 MG/250 ML BAG 250 MG IVPB (22:57)
[2023-07-04] VITALS (12 sets, daily range): BP systolic 125–178; BP diastolic 67–80; PULSE 68–98; RESP 9–20; TEMP 36.4–36.8; O2SAT 93–100
[2023-07-04] MEDS: ceFAZolin 1 GM/NS 50 ML 1 GM/50 ML BAG IVPB ×3 (01:45→17:55)
[2023-07-04 06:18] LABS: INR 1.4; Prothrombin Time 17.5 Seconds (11.1-14.7)
[2023-07-04 06:19] LABS: Fibrinogen 360 mg/dl (215-510); Partial Thromboplastin Time 35.5 SECONDS (22.3-36.8)
[2023-07-04] MEDS: TOLNAFTATE 1% POWDER 45 GM BTL 1 APPLIC TOPICAL ×3 (06:25→20:48)
[2023-07-04] MEDS: ENOXAPARIN 120 MG/0.8 ML SYRINGE 110 MG SUB-Q ×2 (06:26→17:54)
[2023-07-04] MEDS: oxyCODONE HCL (*CRX) 5 MG TAB IR PO (06:26)
[2023-07-04 06:28] LABS: D Dimer 0.75 ug/mL (<0.48)
[2023-07-04 06:40] LABS: Carcinoembryonic Antigen 5.2 ng/mL (0.0-3.0)
[2023-07-04] MEDS: ALBUTEROL SULFATE (*SP) INHALER 2 PUFF INHALATION ×3 (08:07→16:08)
[2023-07-04 08:28] LABS: Glucose Point of Care 251 mg/dl (65-105)
[2023-07-04] MEDS: SODIUM ZIRCONIUM CYCLOSILICATE 10 GM POWD.PACK PO (08:30)
[2023-07-04] MEDS: CIPROFLOXACIN 500 MG TAB PO (08:30)
[2023-07-04] MEDS: levETIRAcetam 500 MG TABLET PO (08:30)
[2023-07-04] MEDS: FAMOTIDINE 20 MG TABLET PO (08:30)
[2023-07-04] MEDS: FUROSEMIDE INJ 40 MG/4 ML VIAL IV PUSH (08:30)
[2023-07-04] MEDS: DOCUSATE SODIUM 100 MG CAPSULE PO (08:31)
[2023-07-04] MEDS: lisinopriL 20 MG TABLET PO (08:31)
[2023-07-04] MEDS: guaiFENesin 12 HR 600 MG TABCR PO (08:31)
[2023-07-04] MEDS: GABAPENTIN 300 MG CAPSULE PO ×2 (08:31→11:54)
[2023-07-04] MEDS: LORATADINE 10 MG TABLET PO (08:31)
[2023-07-04] MEDS: METOPROLOL TARTRATE 12.5 MG TABLET PO (08:31)
[2023-07-04] MEDS: INSULIN ASPART (*BKC) 100 UNITS/ML SUB-Q ×2 (08:32→11:55)
[2023-07-04] MEDS: INSULIN ASPART (*BKC) 100 UNITS/ML 7 UNITS SUB-Q ×2 (08:32→11:54)
[2023-07-04 11:51] LABS: Glucose Point of Care 277 mg/dl (65-105)
--- NOTE | 2023-07-04 11:51 | ECG_ITS ---
Measurements Intervals [place] Rate: 69 P: 182 AR: 170 QRS: 56 QRSD: 86 T: 2 QT: 393 QTc: 423 Interpretive Statements ELECTRONIC ATRIAL PACEMAKER LOW QRS VOLTAGE IN PRECORDIAL LEADS BASELINE ARTIFACT- I, II, V3 BORDERLINE ECG COMPARED TO ECG 06/30/2023 13:59:15 ELECTRONIC ATRIAL PACEMAKER NOW PRESENT Electronically Signed On 07-04-2023 12:17:39 INFORMATION SUPPORT PROJECT MANAGER by Kalin Castorena D.O.
[2023-07-04] MEDS: ALPRAZolam (*CRX) 0.5 MG TABLET PO (11:54)
[2023-07-04] MEDS: traMADol HCL (*CRX) 50 MG TABLET PO (11:54)
[2023-07-04] MEDS: FERROUS SULFATE 325 MG TABLET DR PO (11:54)
[2023-07-04] MEDS: flumazeniL 0.5 MG/5 ML VIAL 0.2 MG IV PUSH (16:34)
[2023-07-04] MEDS: NALOXONE HCL 0.4 MG/ML VIAL IV PUSH (16:34)
[2023-07-04 16:37] LABS: Alveolar/Arterial O2 Gradient < 0.0 mmHg; Base Excess ABG -4.3 mEq/l (+/-2.0); Fractional Inspired Oxygen 28 %; HCO3 ABG 24.1 mEq/l (22.0-26.0); Oxygen Content ABG 13.8 %vol (16.0-22.0); Oxygen Saturation ABG 97.9 % (95.0-100.0); Oxyhemoglobin 97.2 % THb (90.0-100.0); PO2 ABG 129.5 mmHg (80.0-100.0); PO2 FiO2 Ratio Arterial Blood 4.63 %; Total Hemoglobin 9.9 g/dL (12.0-18.0)
[2023-07-04 16:38] LABS: pH ABG 7.208 (7.350-7.450)
[2023-07-04 16:39] LABS: Device NASAL CANNULA; PCO2 ABG 61.8 mmHg (35.0-45.0); Site Drawn RIGHT BRACHIAL
--- NOTE | 2023-07-04 16:50 | PM.IMPN ---
Progress Note: A&P Assessment and Plan (1) Cellulitis of abdominal wall: Code(s): L03.311 - Cellulitis of abdominal wall Status: Acute (2) Abdominal wall cellulitis: Code(s): L03.311 - Cellulitis of abdominal wall Status: Acute (3) UTI (urinary tract infection): Qualifiers: Encounter type: initial encounter Indwelling urinary catheter type: indwelling urethral catheter Urinary tract infection type: catheter-associated UTI Qualified Code(s): T83.511A - Infection and inflammatory reaction due to indwelling urethral catheter, initial encounter; N39.0 - Urinary tract infection, site not specified Code(s): N39.0 - Urinary tract infection, site not specified Status: Acute (4) COVID-19 virus infection: Code(s): U07.1 - COVID-19 Status: Acute (5) Chest pain: Code(s): R07.9 - Chest pain, unspecified Status: Acute (6) Heart failure: Code(s): I50.9 - Heart failure, unspecified Status: Acute (7) Complicated UTI (urinary tract infection): Code(s): N39.0 - Urinary tract infection, site not specified Status: Acute (8) Acute hyperkalemia: Code(s): E87.5 - Hyperkalemia Status: Acute (9) Anemia: Qualifiers: Anemia type: unspecified type Qualified Code(s): D64.9 - Anemia, unspecified Code(s): D64.9 - Anemia, unspecified Status: Acute Plan 0. Acute episode of co2 retention 07/04: most likely due to oxycodone vs xanax stop both. resolved with narcan and flumazenil 1. COVID-19 pneumonia Patient has severe cough, shortness breath, x-ray shows pulmonary interstitial changes Patient has history of COPD Will start remdesivir IV, start bronchodilators scheduled and p.r.n. Start O2 therapy p.r.n. Monitor pulse ox closely 07/02: schedule bronchodilators qid (Albuterol) stop IVF. PT is volume overloaded pt not on o2 yet 07/03: ct current covid treatment with remdesivir, scheduled albuterol qid, and dexamethasone. pt is not on o2. 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 2. Cellulitis of bilateral groin and suprapubic skin, superimposed with fungal infection Will start ceftriaxone and doxycycline IV, tolnaftate topical bilateral groin 07/02: cefazolin for 7 days is sufficient. If it does not resolve, can add doxy tolfanate is fine 07/03: complete dose of cefazolin and tolfanate (increased to tid) for diffuse fungal infection in epicanthal folds 3. Complicated UTI UA shows pyuria, microscopic hematuria Patient is on ceftriaxone Follow urine culture 07/02: unclear if the pt has an indwelling garner. last garner change 06/30 cipro for 7 days for uti. pt has enterobacter which is resistant to everything except fluoroquinolone, bactrim, nitrofurantoin 4. Diastolic heart failure Continue furosemide 40 mg b.i.d. p.o., torsemide 10 mg daily p.o. Follow-up input output and BMP 07/02: pt does not need to be on both furosemide and torsemide stopping torsemide. continuing furosemide stopping ivf repeat bmp/cbc series tomorrow 07/03: bnp elevated from 2040 to 4710 over the last month. pt likely has iatrogenic volume overload from IVF, chf exacerbation from covid, and worsening fluid retention from OHS/EAMON and steroids. increase lasix to 40 mg ivp with close monitoring of cr 07/04: Resume oral lasix and f/u bmp tomorrow 5. RLE DVT while on eliquis 07/03: states that she did not have a dvt while on warfarin. start therapeutic lovenox with bridging to warfarin with daily inr's. discussed with pharmacy. will start with 5 mg coumadin per day with daily inr testing f/u testing for hypercoagulable d/o with d-dimer, fibrinogen, cea, ca 19-9, ca 125 07/04: Warfarin dose adjustment should be done on day 3. Initial dose is 5 mg currently. Day 2 today. d-dimer elevated, fibrinogen normal CEA elevated- Will schedule CT chest/abd/pelvis with PO and IV contrast when creatinine is stable 6. Hi
[2023-07-04 17:46] LABS: Glucose Point of Care 195 mg/dl (65-105)
[2023-07-04] MEDS: INSULIN GLARGINE (*BKC) 100 UNITS/ML 18 UNITS SUB-Q (17:55)
[2023-07-04 20:36] LABS: Alveolar/Arterial O2 Gradient < 0.0 mmHg; Base Excess ABG -2.8 mEq/l (+/-2.0); Carboxyhemoglobin 0.1 % THb (0-2.0); Fractional Inspired Oxygen 24 %; Methemoglobin ABG 0.4 %THb (0-1.5); Oxygen Content ABG 13.3 %vol (16.0-22.0); Oxygen Saturation ABG 98.2 % (95.0-100.0); Oxyhemoglobin 97.7 % THb (90.0-100.0); PCO2 ABG 59.9 mmHg (35.0-45.0); PO2 ABG 138.1 mmHg (80.0-100.0); PO2 FiO2 Ratio Arterial Blood 5.75 %; Reduced Hemoglobin 1.8 %THb (0-5.0); Total Hemoglobin 9.5 g/dL (12.0-18.0)
[2023-07-04 20:38] LABS: Site Drawn LEFT RADIAL; pH ABG 7.238 (7.350-7.450)
[2023-07-04 20:39] LABS: CPAP 5 cmH2O; Device CPAP; Modified Allen's Test Pass
[2023-07-04] MEDS: REMDESIVIR 100 MG/NS 250 ML 100 MG/250 ML BAG 250 MG IVPB (20:59)
[2023-07-04 21:09] LABS: Glucose Point of Care 188 mg/dl (65-105)
[2023-07-04 21:09] LABS: Glucose Point of Care 223 mg/dl (65-105)
--- NOTE | 2023-07-04 23:00 | PCRCNOTE ---
Pt would not wake up for RT to give her her 1999 tx. Pt would not respond to RT when RT attempted to wake her
--- NOTE | 2023-07-04 23:55 | P.PNCROSS_ITS ---
Event Note Event Note Event Note: I received a call from the patient's nurse at around 21:00 with critical ABG. Elizabeth kramer reviewed. Rapid response was called earlier in the day as she was minimally responsive. She was given flumazenil and Narcan with improvement. ABG at that time showed a pH of 7.208 and a pCO2 of 61.8, presumably due to over-sedation from oxycodone which has been discontinued. Repeat ABG this evening showed a pH of 7.238 and a pCO2 of 59.9. Orders were given for BiPAP which the patient more for only a short period of time. I received another phone call, updating me on this fact, and that the patient was difficult to arouse. I came to evaluate the patient at bedside. She would not answer questions or open her eyes to voice but with noxious stimuli she open her eyes and was irate and yelling expletives, telling us to leave her alone. She would not allow us to place the BiPAP and continue only held the sheet above her face. Multiple attempts were made to retry the BiPAP with the same responses. Some of her limited interaction seems to be behavioral. Case was discussed with the water filtration technician, whether not intubation would be appropriate. At this time she is keenly alert with noxious stimuli and is protecting her airway. Decision was made to continue to monitor closely and repeat blood gas in a couple of hours. All narcotics have been placed on hold. Critical Care Time Critical Care Time: Yes Total Critical Care Time: 35 Attestation: Due to a high probability of clinically significant, life threatening deterioration, the patient required my highest level of preparedness to intervene emergently and I personally spent this critical care time directly and personally managing the patient. This critical care time included obtaining a history; examining the patient; pulse oximetry; ordering and review of studies; arranging urgent treatment with development of a management plan; evaluation of patient's response to treatment; frequent reassessment; and discussions with other providers. It was exclusive of separately billable procedures and treating other patients and teaching time. Please see Assessment and Plan section and the rest of the note for further information on patient assessment and treatment.
[2023-07-05] VITALS (10 sets, daily range): BP systolic 105–118; BP diastolic 69–85; PULSE 66–94; RESP 16–20; TEMP 35.8–36.4; O2SAT 94–100
[2023-07-05] MEDS: CIPROFLOXACIN 500 MG TAB PO ×3 (00:05→21:17)
[2023-07-05] MEDS: METOPROLOL TARTRATE 12.5 MG TABLET PO ×3 (00:05→21:19)
[2023-07-05] MEDS: levETIRAcetam 500 MG TABLET PO ×3 (00:06→21:17)
[2023-07-05] MEDS: guaiFENesin 12 HR 600 MG TABCR PO ×3 (00:06→21:17)
[2023-07-05 01:21] LABS: Alveolar/Arterial O2 Gradient 27.2 mmHg; Base Excess ABG -4.1 mEq/l (+/-2.0); Carboxyhemoglobin 0.3 % THb (0-2.0); Fractional Inspired Oxygen 21 %; HCO3 ABG 23.6 mEq/l (22.0-26.0); Methemoglobin ABG 0.2 %THb (0-1.5); Oxygen Content ABG 11.9 %vol (16.0-22.0); PCO2 ABG 56.3 mmHg (35.0-45.0); PO2 ABG 55.1 mmHg (80.0-100.0); PO2 FiO2 Ratio Arterial Blood 2.62 %; Reduced Hemoglobin 14.5 %THb (0-5.0); Total Hemoglobin 9.9 g/dL (12.0-18.0)
[2023-07-05 01:24] LABS: Device ROOM AIR; Modified Allen's Test Pass; Oxygen Saturation ABG 82.7 % (95.0-100.0); Site Drawn LEFT RADIAL
--- NOTE | 2023-07-05 01:32 | PCRCNOTE ---
Pt keeps pulling nasal cannula out of her nose. Pt will not leave the oxygen in her nose. RT wesley patient ABG while patient was on room air because of this. Resulting in a 02 Sat of 82.7
[2023-07-05] MEDS: ceFAZolin 1 GM/NS 50 ML 1 GM/50 ML BAG IVPB ×3 (02:40→17:16)
[2023-07-05] MEDS: ENOXAPARIN 120 MG/0.8 ML SYRINGE 110 MG SUB-Q ×2 (05:35→17:19)
[2023-07-05] MEDS: TOLNAFTATE 1% POWDER 45 GM BTL 1 APPLIC TOPICAL ×3 (05:37→21:18)
[2023-07-05 05:40] LABS: Basophils Percent Auto 0.1 % (0.2-1.2); Eosinophils Percent Auto 0.1 % (0-4.4); Hematocrit 28.6 % (37.0-47.0); Hemoglobin 8.4 g/dL (12.0-15.0); Immature Granulocyte Percent A 1.4 % (0-0.5); Lymphocytes Absolute Auto 0.87 K/mm3 (0.9-3.2); Lymphocytes Percent Auto 12.1 % (18.3-44.2); Mean Corpuscular HGB Conc 29.4 g/dl (32-36); Mean Corpuscular Hemoglobin 28.8 pg (26-34); Mean Corpuscular Volume 97.9 fl (80-100); Monocytes Absolute Auto 0.7 K/mm3 (0.1-0.6); Monocytes Percent Auto 9.7 % (2.6-8.5); Neutrophils Absolute Auto 5.5 K/mm3 (1.3-6.7); Neutrophils Percent Auto 76.6 % (45.5-73.1); Nucleated Red Blood Cells Perc 0.3 % (0.0-0.2); Platelet Count Result 183 k/mm3 (150-375); Red Blood Count 2.92 M/mm3 (4.2-5.4); Red Cell Distribution Width 13.5 % (11.5-14.5); White Blood Count 7.2 K/mm3 (4.5-10.0)
[2023-07-05 05:51] LABS: Alanine Aminotransferase 12 U/L (6-35); Albumin Level 3.7 g/dL (3.5-5.1); Alkaline Phosphatase 99 U/L (38-126); Anion Gap 11 mmol/L (8-16); Aspartate Amino Transferase 23 U/L (14-36); Bilirubin,Total 0.3 mg/dL (0.2-1.3); Blood Urea Nitrogen 82 mg/dL (7-17); Calcium 8.3 mg/dL (8.4-10.2); Carbon Dioxide 26 mmol/L (22-30); Chloride 99 mmol/L (98-107); Estimated Glomerular Filt Rate 48; Glucose 168 mg/dL (65-110); Magnesium 2.3 mg/dL (1.6-2.3); Potassium 5.2 mmol/L (3.4-5.0); Sodium 136 mmol/L (137-145)
[2023-07-05 06:11] LABS: Hypochromasia 1+ (NORMAL); Platelet Estimate Adequate (Adequate); Schistocytes None Seen (NORMAL); Tear Drop Cells 1+ (NORMAL)
[2023-07-05 06:20] LABS: Thyroid Stimulating Hormone 0.867 uIU/mL (0.465-4.680)
--- NOTE | 2023-07-05 06:20 | PCRCNOTE ---
Pt requested 2000 inhaler tx at 0000 on 07/05/23 when RT was in the room. Pt refused this tx when it was originally due. RT gave pt 2 puff of albuterol as ordered at this time
[2023-07-05 06:21] LABS: INR 1.4; Prothrombin Time 17.9 Seconds (11.1-14.7)
[2023-07-05 06:33] LABS: Free T4 Free Thyroxine 1.52 ng/mL (0.78-2.19)
--- NOTE | 2023-07-05 07:42 | PCRCNOTE ---
RT attempted to give scheduled MDI to pt but pt kept dropping the mdi and placing it in the wrong direction. RT tried to redirect pt but the attempt was unsuccessful and pt refused to do MDI and to wear O2. RN informed of refusal.
[2023-07-05 08:39] LABS: Glucose Point of Care 133 mg/dl (65-105)
[2023-07-05] MEDS: DOCUSATE SODIUM 100 MG CAPSULE PO (08:49)
[2023-07-05] MEDS: FAMOTIDINE 20 MG TABLET PO (08:49)
[2023-07-05] MEDS: SODIUM ZIRCONIUM CYCLOSILICATE 10 GM POWD.PACK PO (08:49)
[2023-07-05] MEDS: LORATADINE 10 MG TABLET PO (08:49)
[2023-07-05] MEDS: FUROSEMIDE 40 MG TABLET PO ×2 (08:49→17:17)
[2023-07-05] MEDS: GABAPENTIN 300 MG CAPSULE PO ×3 (08:49→17:17)
[2023-07-05] MEDS: lisinopriL 20 MG TABLET PO (08:50)
[2023-07-05] MEDS: INSULIN ASPART (*BKC) 100 UNITS/ML 7 UNITS SUB-Q ×3 (08:51→17:17)
[2023-07-05 12:07] LABS: Glucose Point of Care 167 mg/dl (65-105)
[2023-07-05] MEDS: FERROUS SULFATE 325 MG TABLET DR PO ×2 (12:18→17:17)
[2023-07-05] MEDS: ALBUTEROL SULFATE (*SP) INHALER 2 PUFF INHALATION ×3 (12:25→21:20)
[2023-07-05] MEDS: CALCIUM GLUC 1,000 MG/NS 50 ML 1,000 MG/50 ML BAG 100 MG IVPB (12:36)
--- NOTE | 2023-07-05 12:59 | PM.IMPN ---
Progress Note: A&P Assessment and Plan (1) Cellulitis of abdominal wall: Code(s): L03.311 - Cellulitis of abdominal wall Status: Acute (2) Abdominal wall cellulitis: Code(s): L03.311 - Cellulitis of abdominal wall Status: Acute (3) UTI (urinary tract infection): Qualifiers: Encounter type: initial encounter Indwelling urinary catheter type: indwelling urethral catheter Urinary tract infection type: catheter-associated UTI Qualified Code(s): T83.511A - Infection and inflammatory reaction due to indwelling urethral catheter, initial encounter; N39.0 - Urinary tract infection, site not specified Code(s): N39.0 - Urinary tract infection, site not specified Status: Acute (4) COVID-19 virus infection: Code(s): U07.1 - COVID-19 Status: Acute (5) Chest pain: Code(s): R07.9 - Chest pain, unspecified Status: Acute (6) Heart failure: Code(s): I50.9 - Heart failure, unspecified Status: Acute (7) Complicated UTI (urinary tract infection): Code(s): N39.0 - Urinary tract infection, site not specified Status: Acute (8) Acute hyperkalemia: Code(s): E87.5 - Hyperkalemia Status: Acute (9) Anemia: Qualifiers: Anemia type: unspecified type Qualified Code(s): D64.9 - Anemia, unspecified Code(s): D64.9 - Anemia, unspecified Status: Acute Plan 0. Acute episode of co2 retention 07/04: most likely due to oxycodone vs xanax stop both. resolved with narcan and flumazenil 07/05: avoid narcotics or benzodiazepines in this pt 1. COVID-19 pneumonia Patient has severe cough, shortness breath, x-ray shows pulmonary interstitial changes Patient has history of COPD Will start remdesivir IV, start bronchodilators scheduled and p.r.n. Start O2 therapy p.r.n. Monitor pulse ox closely 07/02: schedule bronchodilators qid (Albuterol) stop IVF. PT is volume overloaded pt not on o2 yet 07/03: ct current covid treatment with remdesivir, scheduled albuterol qid, and dexamethasone. pt is not on o2. 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 07/05: off o2. remdesvir stopping tomorrow and will stop dexamethasone tomorrow too. 2. Cellulitis of bilateral groin and suprapubic skin, superimposed with fungal infection Will start ceftriaxone and doxycycline IV, tolnaftate topical bilateral groin 07/02: cefazolin for 7 days is sufficient. If it does not resolve, can add doxy tolfanate is fine 07/03: complete dose of cefazolin and tolfanate (increased to tid) for diffuse fungal infection in epicanthal folds 07/05: Can dc pt on oral abx when ready 3. Complicated UTI UA shows pyuria, microscopic hematuria Patient is on ceftriaxone Follow urine culture 07/02: unclear if the pt has an indwelling garner. last garner change 06/30 cipro for 7 days for uti. pt has enterobacter which is resistant to everything except fluoroquinolone, bactrim, nitrofurantoin 07/05: Can dc pt on oral abx when ready 4. Diastolic heart failure Continue furosemide 40 mg b.i.d. p.o., torsemide 10 mg daily p.o. Follow-up input output and BMP 07/02: pt does not need to be on both furosemide and torsemide stopping torsemide. continuing furosemide stopping ivf repeat bmp/cbc series tomorrow 07/03: bnp elevated from 2040 to 4710 over the last month. pt likely has iatrogenic volume overload from IVF, chf exacerbation from covid, and worsening fluid retention from OHS/EAMON and steroids. increase lasix to 40 mg ivp with close monitoring of cr 07/04: Resume oral lasix and f/u bmp tomorrow 5. RLE DVT while on eliquis 07/03: states that she did not have a dvt while on warfarin. start therapeutic lovenox with bridging to warfarin with daily inr's. discussed with pharmacy. will start with 5 mg coumadin per day with daily inr testing f/u testing for hypercoagulable d/o with d-dimer, fibrinogen, cea, ca 19-9, ca 125 07/04: Warfarin dose adjus
[2023-07-05 17:17] LABS: Glucose Point of Care 195 mg/dl (65-105)
[2023-07-05] MEDS: WARFARIN (*PBKC) 5 MG TABLET 10 MG PO (17:17)
[2023-07-05] MEDS: INSULIN GLARGINE (*BKC) 100 UNITS/ML 18 UNITS SUB-Q (17:17)
[2023-07-05] MEDS: traZODone HCL 50 MG TABLET 100 MG PO (21:17)
[2023-07-05] MEDS: REMDESIVIR 100 MG/NS 250 ML 100 MG/250 ML BAG 250 MG IVPB (21:18)
[2023-07-05] MEDS: traMADol HCL (*CRX) 50 MG TABLET PO (21:20)
[2023-07-05 21:29] LABS: Glucose Point of Care 178 mg/dl (65-105)
[2023-07-06] VITALS (9 sets, daily range): BP systolic 130–132; BP diastolic 54–87; PULSE 72–82; RESP 18–22; TEMP 36.1–36.5; O2SAT 96–99
[2023-07-06] MEDS: ceFAZolin 1 GM/NS 50 ML 1 GM/50 ML BAG IVPB ×3 (01:02→17:39)
[2023-07-06] MEDS: ENOXAPARIN 120 MG/0.8 ML SYRINGE 110 MG SUB-Q ×2 (05:43→17:45)
[2023-07-06] MEDS: TOLNAFTATE 1% POWDER 45 GM BTL 1 APPLIC TOPICAL ×3 (05:46→21:58)
[2023-07-06 06:27] LABS: Alanine Aminotransferase 8 U/L (6-35); Albumin Level 3.6 g/dL (3.5-5.1); Alkaline Phosphatase 93 U/L (38-126); Aspartate Amino Transferase 19 U/L (14-36); Blood Urea Nitrogen 85 mg/dL (7-17); Calcium 8.6 mg/dL (8.4-10.2); Carbon Dioxide 28 mmol/L (22-30); Chloride 105 mmol/L (98-107); Estimated Glomerular Filt Rate 48; Glucose 112 mg/dL (65-110)
[2023-07-06 06:28] LABS: Anion Gap 8 mmol/L (8-16); Bilirubin,Total 0.4 mg/dL (0.2-1.3); Magnesium 2.4 mg/dL (1.6-2.3); Potassium 5.2 mmol/L (3.4-5.0); Sodium 141 mmol/L (137-145)
[2023-07-06 07:03] LABS: INR 1.4; Prothrombin Time 17.5 Seconds (11.1-14.7)
[2023-07-06] MEDS: ALBUTEROL SULFATE (*SP) INHALER 2 PUFF INHALATION ×3 (07:28→15:04)
[2023-07-06 08:09] LABS: Glucose Point of Care 88 mg/dl (65-105)
[2023-07-06] MEDS: CIPROFLOXACIN 500 MG TAB PO ×2 (08:44→21:58)
[2023-07-06] MEDS: METOPROLOL TARTRATE 12.5 MG TABLET PO ×2 (08:44→21:58)
[2023-07-06] MEDS: LORATADINE 10 MG TABLET PO (08:45)
[2023-07-06] MEDS: DOCUSATE SODIUM 100 MG CAPSULE PO (08:45)
[2023-07-06] MEDS: FAMOTIDINE 20 MG TABLET PO (08:45)
[2023-07-06] MEDS: guaiFENesin 12 HR 600 MG TABCR PO ×2 (08:45→21:57)
[2023-07-06] MEDS: FUROSEMIDE 40 MG TABLET PO ×2 (08:45→17:26)
[2023-07-06] MEDS: levETIRAcetam 500 MG TABLET PO ×2 (08:45→21:58)
[2023-07-06] MEDS: GABAPENTIN 300 MG CAPSULE PO ×3 (08:45→17:25)
[2023-07-06] MEDS: lisinopriL 20 MG TABLET PO (08:45)
[2023-07-06] MEDS: SODIUM ZIRCONIUM CYCLOSILICATE 10 GM POWD.PACK PO (08:47)
[2023-07-06 12:08] LABS: Glucose Point of Care 206 mg/dl (65-105)
[2023-07-06] MEDS: FERROUS SULFATE 325 MG TABLET DR PO ×2 (12:12→17:24)
[2023-07-06] MEDS: INSULIN ASPART (*BKC) 100 UNITS/ML 7 UNITS SUB-Q ×2 (12:12→17:26)
[2023-07-06] MEDS: INSULIN ASPART (*BKC) 100 UNITS/ML SUB-Q ×3 (12:13→21:58)
[2023-07-06] MEDS: traMADol HCL (*CRX) 50 MG TABLET PO ×2 (14:53→21:57)
[2023-07-06] MEDS: polyethylene glycoL 3350 17 GM POWD.PACK PO (14:54)
[2023-07-06 17:24] LABS: Glucose Point of Care 204 mg/dl (65-105)
[2023-07-06] MEDS: WARFARIN (*PBKC) 5 MG TABLET 10 MG PO (17:25)
[2023-07-06] MEDS: INSULIN GLARGINE (*BKC) 100 UNITS/ML 18 UNITS SUB-Q (17:28)
--- NOTE | 2023-07-06 18:45 | P.PNIM_ITS ---
Progress Note: A&P Assessment and Plan (1) Cellulitis of abdominal wall: Code(s): L03.311 - Cellulitis of abdominal wall Status: Acute (2) Abdominal wall cellulitis: Code(s): L03.311 - Cellulitis of abdominal wall Status: Acute (3) UTI (urinary tract infection): Qualifiers: Encounter type: initial encounter Indwelling urinary catheter type: indwelling urethral catheter Urinary tract infection type: catheter-associated UTI Qualified Code(s): T83.511A - Infection and inflammatory reaction due to indwelling urethral catheter, initial encounter; N39.0 - Urinary tract infection, site not specified Code(s): N39.0 - Urinary tract infection, site not specified Status: Acute (4) COVID-19 virus infection: Code(s): U07.1 - COVID-19 Status: Acute (5) Chest pain: Code(s): R07.9 - Chest pain, unspecified Status: Acute (6) Heart failure: Code(s): I50.9 - Heart failure, unspecified Status: Acute (7) Complicated UTI (urinary tract infection): Code(s): N39.0 - Urinary tract infection, site not specified Status: Acute (8) Acute hyperkalemia: Code(s): E87.5 - Hyperkalemia Status: Acute (9) Anemia: Qualifiers: Anemia type: unspecified type Qualified Code(s): D64.9 - Anemia, unspecified Code(s): D64.9 - Anemia, unspecified Status: Acute Plan 0. Acute episode of co2 retention 07/04: most likely due to oxycodone vs xanax stop both. resolved with narcan and flumazenil 07/05: avoid narcotics or benzodiazepines in this pt 1. COVID-19 pneumonia Patient has severe cough, shortness breath, x-ray shows pulmonary interstitial changes Patient has history of COPD Will start remdesivir IV, start bronchodilators scheduled and p.r.n. Start O2 therapy p.r.n. Monitor pulse ox closely 07/02: schedule bronchodilators qid (Albuterol) stop IVF. PT is volume overloaded pt not on o2 yet 07/03: ct current covid treatment with remdesivir, scheduled albuterol qid, and dexamethasone. pt is not on o2. 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 07/05: off o2. remdesvir stopping tomorrow and will stop dexamethasone tomorrow too. 2. Cellulitis of bilateral groin and suprapubic skin, superimposed with fungal infection Will start ceftriaxone and doxycycline IV, tolnaftate topical bilateral groin 07/02: cefazolin for 7 days is sufficient. If it does not resolve, can add doxy tolfanate is fine 07/03: complete dose of cefazolin and tolfanate (increased to tid) for diffuse fungal infection in epicanthal folds 07/05: Can dc pt on oral abx when ready 3. Complicated UTI UA shows pyuria, microscopic hematuria Patient is on ceftriaxone Follow urine culture 07/02: unclear if the pt has an indwelling garner. last garner change 06/30 cipro for 7 days for uti. pt has enterobacter which is resistant to everything except fluoroquinolone, bactrim, nitrofurantoin 07/05: Can dc pt on oral abx when ready 4. Diastolic heart failure Continue furosemide 40 mg b.i.d. p.o., torsemide 10 mg daily p.o. Follow-up input output and BMP 07/02: pt does not need to be on both furosemide and torsemide stopping torsemide. continuing furosemide stopping ivf repeat bmp/cbc series tomorrow 07/03: bnp elevated from 0 to 4710 over the last month. pt likely has iatrogenic volume overload from IVF, chf exacerbation from covid, and worsening fluid retention from OHS/EAMON and steroids. increase lasix to 40 mg ivp with close monitoring of cr 07/04: Res
[2023-07-06 21:13] LABS: Glucose Point of Care 210 mg/dl (65-105)
[2023-07-06] MEDS: traZODone HCL 50 MG TABLET 100 MG PO (21:57)
[2023-07-07] VITALS (10 sets, daily range): BP systolic 124–148; BP diastolic 65–82; PULSE 72–96; RESP 18–20; TEMP 35.9–36.6; O2SAT 98–100
[2023-07-07] MEDS: ceFAZolin 1 GM/NS 50 ML 1 GM/50 ML BAG IVPB ×3 (02:54→17:22)
--- NOTE | 2023-07-07 05:39 | PC.NURSE ---
Dr Machado notified of new onset hematuria draining from garner catheter. Order received for CBC and BMP/mag, and hold lovenox pending morning lab values.
[2023-07-07 06:11] LABS: Hematocrit 29.4 % (37.0-47.0); Hemoglobin 8.8 g/dL (12.0-15.0); Mean Corpuscular HGB Conc 29.9 g/dl (32-36); Mean Corpuscular Hemoglobin 28.4 pg (26-34); Mean Corpuscular Volume 94.8 fl (80-100); Mean Platelet Volume 9.5 fl (7.4-10.4); Platelet Count Result 240 k/mm3 (150-375); Red Cell Distribution Width 14.2 % (11.5-14.5); White Blood Count 8.8 K/mm3 (4.5-10.0)
[2023-07-07 06:20] LABS: INR 1.4; Prothrombin Time 17.6 Seconds (11.1-14.7)
[2023-07-07 06:34] LABS: Anion Gap 8 mmol/L (8-16); Blood Urea Nitrogen 75 mg/dL (7-17); Carbon Dioxide 30 mmol/L (22-30); Chloride 106 mmol/L (98-107); Estimated Glomerular Filt Rate 59; Glucose 100 mg/dL (65-110); Magnesium 2.2 mg/dL (1.6-2.3); Potassium 4.9 mmol/L (3.4-5.0); Sodium 144 mmol/L (137-145)
[2023-07-07] MEDS: TOLNAFTATE 1% POWDER 45 GM BTL 1 APPLIC TOPICAL ×3 (06:39→20:08)
[2023-07-07] MEDS: ENOXAPARIN 120 MG/0.8 ML SYRINGE 110 MG SUB-Q ×2 (06:39→17:22)
[2023-07-07] MEDS: ALBUTEROL SULFATE (*SP) INHALER 2 PUFF INHALATION ×4 (07:38→21:27)
[2023-07-07 08:31] LABS: Glucose Point of Care 91 mg/dl (65-105)
[2023-07-07] MEDS: METOPROLOL TARTRATE 12.5 MG TABLET PO ×2 (09:03→20:06)
[2023-07-07] MEDS: polyethylene glycoL 3350 17 GM POWD.PACK PO (09:03)
[2023-07-07] MEDS: FAMOTIDINE 20 MG TABLET PO (09:03)
[2023-07-07] MEDS: SODIUM ZIRCONIUM CYCLOSILICATE 10 GM POWD.PACK PO (09:03)
[2023-07-07] MEDS: lisinopriL 20 MG TABLET PO (09:04)
[2023-07-07] MEDS: DOCUSATE SODIUM 100 MG CAPSULE PO (09:04)
[2023-07-07] MEDS: GABAPENTIN 300 MG CAPSULE PO ×3 (09:04→17:08)
[2023-07-07] MEDS: LORATADINE 10 MG TABLET PO (09:04)
[2023-07-07] MEDS: CIPROFLOXACIN 500 MG TAB PO ×2 (09:04→20:04)
[2023-07-07] MEDS: FUROSEMIDE 40 MG TABLET PO ×2 (09:05→17:08)
[2023-07-07] MEDS: guaiFENesin 12 HR 600 MG TABCR PO ×2 (09:05→20:07)
[2023-07-07] MEDS: levETIRAcetam 500 MG TABLET PO ×2 (09:05→20:04)
[2023-07-07] MEDS: traMADol HCL (*CRX) 50 MG TABLET PO ×2 (10:05→20:05)
[2023-07-07 12:08] LABS: Glucose Point of Care 221 mg/dl (65-105)
[2023-07-07] MEDS: FERROUS SULFATE 325 MG TABLET DR PO ×2 (12:10→17:08)
[2023-07-07] MEDS: INSULIN ASPART (*BKC) 100 UNITS/ML 7 UNITS SUB-Q ×2 (12:11→17:08)
[2023-07-07] MEDS: INSULIN ASPART (*BKC) 100 UNITS/ML SUB-Q ×2 (12:11→17:09)
[2023-07-07 13:58] LABS: CA 19-9 26 U/mL (<34)
[2023-07-07 17:03] LABS: Glucose Point of Care 202 mg/dl (65-105)
[2023-07-07] MEDS: WARFARIN (*PBKC) 5 MG TABLET 10 MG PO (17:08)
[2023-07-07] MEDS: INSULIN GLARGINE (*BKC) 100 UNITS/ML 18 UNITS SUB-Q (17:36)
--- NOTE | 2023-07-07 17:41 | PM.IMPN ---
Progress Note: A&P Assessment and Plan (1) COVID-19 virus infection: Code(s): U07.1 - COVID-19 Status: Acute (2) UTI (urinary tract infection): Qualifiers: Encounter type: initial encounter Indwelling urinary catheter type: indwelling urethral catheter Urinary tract infection type: catheter-associated UTI Qualified Code(s): T83.511A - Infection and inflammatory reaction due to indwelling urethral catheter, initial encounter; N39.0 - Urinary tract infection, site not specified Code(s): N39.0 - Urinary tract infection, site not specified Status: Acute Plan continue current therapy. check procalcitonin tomorrow in attempt to de escalate all of her abx. continue lovenox while attempting to get INR to therapeutic level full code. Subjective Date/time seen: 07/07/23 17:41 Interval history: NAOE. pt is without complaints Review of Systems Review of Systems: All systems reviewed & are unremarkable except as noted in HPI and below Exam Const: General: comfortable and no acute distress Other: obese Eyes: Pupils: Equal, round and reactive pupils present Neck: Neck: supple Resp: Effort & Inspection: normal respiratory effort Auscultation: clear to auscultation bilaterally, no crackles, no rales and no rhonchi Cardio: Rate: regular rate Rhythm: regular rhythm Heart sounds: no gallops, no murmurs and no rubs GI: GI Palp: Yes Soft to palpation and No Tenderness to palpation present (GI) Urinary Catheter: Urinary Catheter: urine pink Extrem: General: no edema Objective Data Vital Signs Vital Signs: Vital Signs - 24 hr 07/06/23 19:49 07/06/23 21:58 07/06/23 21:50 Temperature 97.3 F L Pulse Rate 75 75 Respiratory Rate 18 Blood Pressure 132/87 Pulse Oximetry 98 Oxygen Delivery Room Air Fraction of Inspired Oxygen 07/07/23 05:07 07/07/23 07:38 07/07/23 07:38 Temperature 96.8 F L Pulse Rate 72 75 Respiratory Rate 20 20 Blood Pressure 141/79 H Pulse Oximetry 100 98 Oxygen Delivery Room Air Fraction of Inspired Oxygen 21 07/07/23 09:03 07/07/23 08:00 07/07/23 11:02 Temperature Pulse Rate 72 Respiratory Rate 20 20 Blood Pressure Pulse Oximetry 98 Oxygen Delivery Room Air Fraction of Inspired Oxygen 07/07/23 13:34 07/07/23 16:26 Temperature 96.6 F L Pulse Rate 84 80 Respiratory Rate 18 20 Blood Pressure 148/65 H Pulse Oximetry 100 Oxygen Delivery Fraction of Inspired Oxygen Intake/Output Intake/Output: Intake & Output 07/04/23 07/05/23 07/06/23 07/07/23 23:59 23:59 23:59 23:59 Intake Total 400 1480 2310 1500 Output Total 700 1600 5900 2350 Balance -300 -120 -3590 -850 Meds/Results Medications: Active Medications Generic Name Dose Route Start Last Admin Trade Name Freq PRN Reason Stop Dose Admin Acetaminophen 650 mg 06/30/23 17:48 07/03/23 12:02 Acetaminophen 325 Mg Tablet PO 650 mg Q4H PRN Administration Mild Pain (1-3) or Fever Albuterol 2 puff 07/02/23 20:00 07/07/23 16:26 Albuterol Sulfate (*Sp) Inhaler INHALATION 2 puff QIDRT RAMONE Administration Artificial Tears 1 drop 07/07/23 14:33 Artificial Tears Ophth Soln 15 Ml Bottle EACH EYE QID PRN Dry Eye(s) Bisacodyl 10 mg 07/01/23 02:41 Bisacodyl 10 Mg Suppository RECTAL DAILY PRN Constipation Ciprofloxacin 500 mg 07/02/23 21:00 07/07/23 09:04 Ciprofloxacin 500 Mg Tab PO 07/09/23 20:59 500 mg Q12HR RAMONE Administration Dextrose 12.5 gm 07/02/23 17:06 Dextrose 50% 25 Gm/50 Ml Syringe IV PUSH PRN PRN Hypoglycemia Protocol Docusate Sodium 100 mg 07/01/23 09:00 07/07/23 09:04 Docusate Sodium 100 Mg Capsule PO 100 mg DAILY RAMONE Administration Enoxaparin Sodium 110 mg 07/03/23 18:00 07/07/23 17:22 Enoxaparin 120 Mg/0.8 Ml Syringe SUB-Q 110 mg Q12H RAMONE Administration Famotidine 20 mg 07/01/23 09:00 07/07/23 09
[2023-07-07] MEDS: SIMETHICONE 125 MG CHEW TAB 250 MG PO (20:01)
[2023-07-07] MEDS: traZODone HCL 50 MG TABLET 100 MG PO (20:06)
[2023-07-08] VITALS (7 sets, daily range): BP systolic 110–121; BP diastolic 50–55; PULSE 72–780; RESP 16–20; TEMP 36.7–37; O2SAT 97–100
[2023-07-08] MEDS: CALCIUM CARBONATE (TUMS) 500 MG (200 MG ELEMENTAL) PO (01:05)
[2023-07-08] MEDS: ceFAZolin 1 GM/NS 50 ML 1 GM/50 ML BAG IVPB ×3 (01:06→17:37)
[2023-07-08 01:29] LABS: CA-125 27 U/mL (<35)
[2023-07-08 02:39] LABS: Glucose Point of Care 162 mg/dl (65-105)
[2023-07-08] MEDS: traMADol HCL (*CRX) 50 MG TABLET PO (04:52)
[2023-07-08] MEDS: TOLNAFTATE 1% POWDER 45 GM BTL 1 APPLIC TOPICAL ×3 (05:18→20:44)
[2023-07-08] MEDS: ENOXAPARIN 120 MG/0.8 ML SYRINGE 110 MG SUB-Q ×2 (05:18→17:37)
[2023-07-08 05:26] LABS: Basophils Percent Auto 0.4 % (0.2-1.2); Eosinophils Absolute Auto 0.3 K/mm3 (0-0.3); Eosinophils Percent Auto 2.6 % (0-4.4); Hematocrit 26.8 % (37.0-47.0); Hemoglobin 7.9 g/dL (12.0-15.0); Immature Granulocyte Absolute 0.16 K/mm3 (0.00-0.031); Immature Granulocyte Percent A 1.6 % (0-0.5); Lymphocytes Absolute Auto 1.26 K/mm3 (0.9-3.2); Lymphocytes Percent Auto 12.7 % (18.3-44.2); Mean Corpuscular HGB Conc 29.5 g/dl (32-36); Mean Corpuscular Hemoglobin 28.5 pg (26-34); Mean Corpuscular Volume 96.8 fl (80-100); Mean Platelet Volume 9.6 fl (7.4-10.4); Monocytes Percent Auto 10.5 % (2.6-8.5); Neutrophils Absolute Auto 7.2 K/mm3 (1.3-6.7); Neutrophils Percent Auto 72.2 % (45.5-73.1); Nucleated Red Blood Cells Perc 0.2 % (0.0-0.2); Platelet Count Result 232 k/mm3 (150-375); Red Blood Count 2.77 M/mm3 (4.2-5.4); Red Cell Distribution Width 14.9 % (11.5-14.5); White Blood Count 9.9 K/mm3 (4.5-10.0)
[2023-07-08 05:38] LABS: INR 1.7; Prothrombin Time 20.6 Seconds (11.1-14.7)
[2023-07-08 05:54] LABS: Anion Gap 5 mmol/L (8-16); Blood Urea Nitrogen 67 mg/dL (7-17); Calcium 8.6 mg/dL (8.4-10.2); Carbon Dioxide 34 mmol/L (22-30); Chloride 105 mmol/L (98-107); Estimated Glomerular Filt Rate 59; Glucose 125 mg/dL (65-110); Potassium 5.1 mmol/L (3.4-5.0); Sodium 144 mmol/L (137-145)
[2023-07-08 06:53] LABS: Anisocytosis 1+ (NORMAL); Hypochromasia 1+ (NORMAL); Platelet Estimate Adequate (Adequate); Poikilocytosis 1+ (NORMAL); Schistocytes None Seen (NORMAL); Tear Drop Cells 1+ (NORMAL)
[2023-07-08 08:08] LABS: Procalcitonin 0.1 ng/mL
[2023-07-08] MEDS: ALBUTEROL SULFATE (*SP) INHALER 2 PUFF INHALATION ×4 (08:13→20:41)
--- NOTE | 2023-07-08 08:16 | WPDURCON ---
Assessment and Plan Assessment and plan (1) Hematuria: Code(s): R31.9 - Hematuria, unspecified Status: Acute Assessment and Plan: Urine is clear at this time. Patient is on anticoagulation and the hematuria visualized may be from Jenkins irritation. Her noncontrast CT did not reveal any significant findings. At this time no further intervention is needed. If hematuria recurrence that would order a CT urogram. If it is significant bleeding then would require a three-way Jenkins and the decision made regarding her anticoagulation. Urology Consult Note HPI Date Seen: 07/08/23 Time Seen: 08:16 Requesting Physician: Santo Lancaster MD Primary Care Provider: Jose Painter MD Consult Narrative Reason for consult: Hematuria Narrative: Valerie Nguyen is a 47 year old female with multiple comorbidities who has a chronic indwelling Jenkins. She was admitted with shortness of breath and found to have COVID. She is on anticoagulation and was noted to have some blood in her urine yesterday afternoon. Patient did have a noncontrast CT on June 30 which revealed normal upper tracts without any evidence of stones or hydronephrosis. At the time of my evaluation her urine is crystal clear. Review of Systems Review of Systems: All systems reviewed & are unremarkable except as noted in HPI and below PMFSH Past Medical History Medical History Anemia Anxiety Arthritis Asthma Bipolar disorder Chronic anticoagulation For history of DVT and PE. Chronic kidney disease Chronic obstructive pulmonary disease Chronic pain syndrome Deep venous thrombosis Depression Diastolic dysfunction Eczema Epilepsy Gastroesophageal reflux disease Herniated disc History of MRSA infection Hyperlipidemia Hypertension Insulin dependent diabetes mellitus Historically poorly controlled. Obesity Obstructive sleep apnea Non compliant with treatment. Peripheral neuropathy Personal history of noncompliance with medical treatment and regimen Pulmonary embolism Seizures Suicide attempt T11 vertebral fracture Nondisplaced fracture of the right T11 inferior articulating facet. No surgical intervention required. UTI (urinary tract infection) Surgical History Surgical History History of bilateral knee replacement History of cardiac catheterization History of cardiac pacemaker For paroxysmal ventricular arrhythmia/tachycardia. History of cholecystectomy Family History Family History Mother Heart disease Acute myocardial infarction Uterine cancer COVID-19 Diabetes mellitus Hypertension Kidney disease Father Heart disease Social History Social History Social History: Surrogate medical decision maker: Meño Marquez, significant other. Code status: Full code. Smoking packs per day: 1.5 Smoking cigarettes per day: 30.0 Years smoked: 9 Smoking pack-years: 13.50 Smoking status: Never smoker Second hand tobacco smoke exposure: Yes Alcohol intake: never Substance use: never Substance use type: does not use Lack of Transportation: No Lack of Food: Never True Current Housing: I Have Housing Concerned About Future Housing: No Difficulty Paying Gas/Electric Bills: No Difficulty Paying for Meds: No Currently Unemployed: No Education: Don't Know Difficulty w/ Childcare or Family Care: No Living arrangements: with family Additional living arrangements comments: . Four children being raised by her sister. Additional occupation/education comments: Disabled. Spiritual care concerns: No Meds Home Medications and Allergies Home Medications Medication Instructions Recorded Confirmed Type furosemide 20 mg tablet 40 mg PO BID 01/18/22
[2023-07-08 08:43] LABS: Glucose Point of Care 106 mg/dl (65-105)
[2023-07-08] MEDS: CIPROFLOXACIN 500 MG TAB PO ×2 (09:16→20:44)
[2023-07-08] MEDS: GABAPENTIN 300 MG CAPSULE PO ×3 (09:16→17:36)
[2023-07-08] MEDS: LORATADINE 10 MG TABLET PO (09:16)
[2023-07-08] MEDS: METOPROLOL TARTRATE 12.5 MG TABLET PO ×2 (09:16→20:43)
[2023-07-08] MEDS: DOCUSATE SODIUM 100 MG CAPSULE PO (09:16)
[2023-07-08] MEDS: levETIRAcetam 500 MG TABLET PO ×2 (09:17→20:44)
[2023-07-08] MEDS: guaiFENesin 12 HR 600 MG TABCR PO ×2 (09:17→20:43)
[2023-07-08] MEDS: FUROSEMIDE 40 MG TABLET PO ×2 (09:17→17:36)
[2023-07-08] MEDS: lisinopriL 20 MG TABLET PO (09:17)
[2023-07-08] MEDS: FAMOTIDINE 20 MG TABLET PO (09:17)
[2023-07-08] MEDS: SODIUM ZIRCONIUM CYCLOSILICATE 10 GM POWD.PACK PO (09:18)
[2023-07-08 11:52] LABS: Glucose Point of Care 181 mg/dl (65-105)
[2023-07-08] MEDS: FERROUS SULFATE 325 MG TABLET DR PO ×2 (12:42→17:36)
[2023-07-08] MEDS: INSULIN ASPART (*BKC) 100 UNITS/ML 7 UNITS SUB-Q (12:43)
[2023-07-08 17:12] LABS: Glucose Point of Care 117 mg/dl (65-105)
[2023-07-08] MEDS: WARFARIN (*PBKC) 5 MG TABLET 10 MG PO (17:36)
[2023-07-08] MEDS: INSULIN GLARGINE (*BKC) 100 UNITS/ML 18 UNITS SUB-Q (17:37)
[2023-07-08] MEDS: ARTIFICIAL TEARS OPHTH SOLN 15 ML BOTTLE 1 DROP EACH EYE (17:53)
[2023-07-08 20:43] LABS: Glucose Point of Care 151 mg/dl (65-105)
[2023-07-08] MEDS: traZODone HCL 50 MG TABLET 100 MG PO (20:43)
[2023-07-09] VITALS (7 sets, daily range): BP systolic 109–133; BP diastolic 40–57; PULSE 78–89; RESP 17–18; TEMP 36.3–36.8; O2SAT 99–100
[2023-07-09] MEDS: ceFAZolin 1 GM/NS 50 ML 1 GM/50 ML BAG IVPB ×2 (01:20→09:02)
[2023-07-09] MEDS: ENOXAPARIN 120 MG/0.8 ML SYRINGE 110 MG SUB-Q (05:00)
[2023-07-09] MEDS: TOLNAFTATE 1% POWDER 45 GM BTL 1 APPLIC TOPICAL ×3 (05:01→21:59)
[2023-07-09 08:19] LABS: Glucose Point of Care 77 mg/dl (65-105)
[2023-07-09] MEDS: guaiFENesin 12 HR 600 MG TABCR PO ×2 (08:59→21:59)
[2023-07-09] MEDS: DOCUSATE SODIUM 100 MG CAPSULE PO (09:00)
[2023-07-09] MEDS: FUROSEMIDE 40 MG TABLET PO ×2 (09:00→17:32)
[2023-07-09] MEDS: levETIRAcetam 500 MG TABLET PO ×2 (09:00→21:59)
[2023-07-09] MEDS: LORATADINE 10 MG TABLET PO (09:00)
[2023-07-09] MEDS: METOPROLOL TARTRATE 12.5 MG TABLET PO ×2 (09:00→21:58)
[2023-07-09] MEDS: CIPROFLOXACIN 500 MG TAB PO (09:00)
[2023-07-09] MEDS: SODIUM ZIRCONIUM CYCLOSILICATE 10 GM POWD.PACK PO (09:00)
[2023-07-09] MEDS: FAMOTIDINE 20 MG TABLET PO (09:00)
[2023-07-09] MEDS: GABAPENTIN 300 MG CAPSULE PO ×3 (09:00→17:32)
[2023-07-09] MEDS: lisinopriL 20 MG TABLET PO (09:02)
[2023-07-09 10:54] LABS: INR 2.2; Prothrombin Time 25.8 Seconds (11.1-14.7)
--- NOTE | 2023-07-09 11:07 | PCNWS ---
Weekly nutritional screen. Patient is tolerating current diet with adequate intake. No weight loss reported. No nutritional needs at this time.
[2023-07-09] MEDS: ALBUTEROL SULFATE (*SP) INHALER 2 PUFF INHALATION (11:57)
[2023-07-09 12:55] LABS: Glucose Point of Care 172 mg/dl (65-105)
[2023-07-09] MEDS: FERROUS SULFATE 325 MG TABLET DR PO ×2 (13:12→17:32)
[2023-07-09 13:16] LABS: Anion Gap 9 mmol/L (8-16); Blood Urea Nitrogen 55 mg/dL (7-17); Calcium 8.5 mg/dL (8.4-10.2); Carbon Dioxide 31 mmol/L (22-30); Chloride 102 mmol/L (98-107); Estimated Glomerular Filt Rate > 60; Glucose 211 mg/dL (65-110); Potassium 3.9 mmol/L (3.4-5.0); Sodium 142 mmol/L (137-145)
--- NOTE | 2023-07-09 15:17 | PM.IMPN ---
Progress Note: A&P Assessment and Plan (1) Hematuria: Code(s): R31.9 - Hematuria, unspecified Status: Acute (2) Cellulitis of abdominal wall: Code(s): L03.311 - Cellulitis of abdominal wall Status: Acute (3) COVID-19 virus infection: Code(s): U07.1 - COVID-19 Status: Acute Plan 47F [place] w/ PMH obesity, neurocognitive disorder, chronic indwelling garner, seizure disorder, HTN, HLD, IDDM, hx of DVT, COPD, EAMON, HFpEF, depression, eczema presented with a few days of cough. # COVID-19 pneumonia - cough has subsided. no more respiratory distress. resolved - received remdesivir, bronchodilators and decadron. ctm respiratory status # EAMON, probably OHS, COPD - on 07/04 had acute co2 retention, has since improved. received flumazenil and narcan. xanas and oxycodone since il'ed as well - cont cpap at night. duonebs as needed. - resolved. on room air as well. # cellulitis of bilateral groin and suprapubic skin w/ superimposed fungal infection - received abx, cellulitis greatly improved. continue tolnaftate and miconazole nitrate # complicated UTI - has indwelling garner, treated with ceftriaxone and then cipro for an additional 7 days for enterobacter - 07/06 mild hematuria. urology consulted, by the time they saw her the urine was clear. ctm # diastolic heart failure - cont lasix. euvolemic # RLE DVT while on eliquis - 07/03 doppler US demonstrated DVT. she presented with eliquis on board, reports did not have DVT while on coumadin previously. It should also be considered that she had a DVT while actively having COVID so that could be another precipitating factor. - coumadin 5mg, upgraded to 10mg, and on 07/09 her INR is therapeutic at 2.2. d/c lovenox. coumadin changed back to 5mg. continue to follow - CEA elevated at 5. CA 19 and 125 WNL. cannot get CTA 2/2 contrast allergy. consider outpatient PET scan or colonoscopy/oncology consult. pt seems quite uninterested in pursuing anything at the moment. however, would revisit this now that her other issues are improving # HTN - ctm # IDDM - cont lantus and lispro scheduled with sliding scale an accuchecks. # JAYESH - resolved. cautious with diuresis - hyperkalemia, resolved FEN: saline lock IV GI prophylaxis: not indicated DVT prophylaxis: warfarin Lines: PIV, garner indwelling Code Status: full code Dispo: stable More than 35 minutes spent on chart review, patient interaction and assessment and plan. Subjective Date/time seen: 07/09/23 15:17 Interval history: NAOE. pt has no complaints or changes to make as the last 3 days have been. she denies SOB Review of Systems Review of Systems: All systems reviewed & are unremarkable except as noted in HPI and below Exam Const: General: comfortable and no acute distress Other: obese Eyes: Pupils: Equal, round and reactive pupils present Neck: Neck: supple Resp: Effort & Inspection: normal respiratory effort Auscultation: clear to auscultation bilaterally Cardio: Rate: regular rate Rhythm: regular rhythm Heart sounds: no gallops, no murmurs and no rubs GI: GI Palp: Yes Soft to palpation and No Tenderness to palpation present (GI) Extrem: General: no edema Objective Data Vital Signs Vital Signs: Vital Signs - 24 hr 07/08/23 20:42 07/08/23 20:43 07/08/23 20:00 Temperature Pulse Rate 72 87 Respiratory Rate 20 Blood Pressure Pulse Oximetry Oxygen Delivery Room Air 07/08/23 21:11 07/09/23 09:00 07/09/23 09:43 Temperature 98.1 F 97.4 F L Pulse Rate 87 83 89 Respiratory Rate 18 17 Blood Pressure 121/54 L 117/40 L Pulse Oximetry 98 99 Oxygen Delivery 07/09/23 10:20 07/09/23 08:00 07/09/23 14:47 Temperature 98.3 F Pulse Rate 83 82 Respiratory Rate 17 Blood Pressure 133/57 L 129/51 L Pulse Oximetry 99 Oxygen Delivery Room Air Intake/Output Intake/Output: Intake & Output 07/06/23 07/07/23
[2023-07-09 17:29] LABS: Glucose Point of Care 164 mg/dl (65-105)
[2023-07-09] MEDS: WARFARIN (*PBKC) 5 MG TABLET PO (17:32)
[2023-07-09] MEDS: INSULIN GLARGINE (*BKC) 100 UNITS/ML 18 UNITS SUB-Q (17:33)
[2023-07-09] MEDS: traZODone HCL 50 MG TABLET 100 MG PO (21:58)
[2023-07-09] MEDS: INSULIN ASPART (*BKC) 100 UNITS/ML SUB-Q (22:44)
[2023-07-09 23:00] LABS: Glucose Point of Care 260 mg/dl (65-105)
[2023-07-10] VITALS (8 sets, daily range): BP systolic 115–140; BP diastolic 51–71; PULSE 75–100; RESP 15–18; TEMP 36.3–36.6; O2SAT 98–100
[2023-07-10] MEDS: TOLNAFTATE 1% POWDER 45 GM BTL 1 APPLIC TOPICAL ×2 (05:44→20:20)
[2023-07-10 06:05] LABS: Mean Corpuscular HGB Conc 28.6 g/dl (32-36); Mean Corpuscular Hemoglobin 28.3 pg (26-34); Mean Corpuscular Volume 98.9 fl (80-100); Mean Platelet Volume 9.8 fl (7.4-10.4); Platelet Count Result 203 k/mm3 (150-375); Red Blood Count 2.83 M/mm3 (4.2-5.4); Red Cell Distribution Width 14.7 % (11.5-14.5); White Blood Count 5.9 K/mm3 (4.5-10.0)
[2023-07-10 06:15] LABS: INR 2.3; Prothrombin Time 27.1 Seconds (11.1-14.7)
[2023-07-10 06:22] LABS: Anion Gap 7 mmol/L (8-16); Blood Urea Nitrogen 56 mg/dL (7-17); Calcium 8.1 mg/dL (8.4-10.2); Carbon Dioxide 31 mmol/L (22-30); Chloride 103 mmol/L (98-107); Estimated Glomerular Filt Rate > 60; Glucose 239 mg/dL (65-110); Magnesium 2.2 mg/dL (1.6-2.3); Potassium 3.9 mmol/L (3.4-5.0); Sodium 141 mmol/L (137-145)
--- NOTE | 2023-07-10 08:30 | PM.IMPN ---
Progress Note: A&P Assessment and Plan (1) Hematuria: Code(s): R31.9 - Hematuria, unspecified Status: Acute (2) Cellulitis of abdominal wall: Code(s): L03.311 - Cellulitis of abdominal wall Status: Acute (3) COVID-19 virus infection: Code(s): U07.1 - COVID-19 Status: Acute Plan 47F resident of [place] w/ PMH obesity, neurocognitive disorder, chronic indwelling garner, seizure disorder, HTN, HLD, IDDM, hx of DVT, COPD, EAMON, HFpEF, depression, eczema presented with a few days of cough. # COVID-19 pneumonia - cough has subsided. no more respiratory distress. resolved - received remdesivir, bronchodilators and decadron. ctm respiratory status -pleuritic chest pain, associated with cough, EKG shows sinus rhythm, low voltage, troponin negative # EAMON, probably OHS, COPD - on 07/04 had acute co2 retention, has since improved. received flumazenil and narcan. xanas and oxycodone since nj'ed as well - cont cpap at night. duonebs as needed. - resolved. on room air as well. # cellulitis of bilateral groin and suprapubic skin w/ superimposed fungal infection - received abx, cellulitis greatly improved. continue tolnaftate and miconazole nitrate # complicated UTI - has indwelling garner, treated with ceftriaxone and then cipro for an additional 7 days for enterobacter - 07/06 mild hematuria. urology consulted, by the time they saw her the urine was clear. ctm # diastolic heart failure - cont lasix. euvolemic # RLE DVT while on eliquis - 07/03 doppler US demonstrated DVT. she presented with eliquis on board, reports did not have DVT while on coumadin previously. It should also be considered that she had a DVT while actively having COVID so that could be another precipitating factor. - coumadin 5mg, upgraded to 10mg, and on 07/09 her INR is therapeutic at 2.2. d/c lovenox. coumadin changed back to 5mg. continue to follow - CEA elevated at 5. CA 19 and 125 WNL. cannot get CTA 2/2 contrast allergy. consider outpatient PET scan or colonoscopy/oncology consult. pt seems quite uninterested in pursuing anything at the moment. however, would revisit this now that her other issues are improving # HTN - ctm # IDDM - cont lantus and lispro scheduled with sliding scale an accuchecks. # JAYESH - resolved. cautious with diuresis - hyperkalemia, resolved FEN: saline lock IV GI prophylaxis: not indicated DVT prophylaxis: warfarin Lines: PIV, garner indwelling Code Status: full code Dispo: stabled assessment and plan. Subjective Date/time seen: 07/10/23 08:30 Interval history: I saw exam patient today. Patient feels better today, patient stated has intermittent chest pain, denies palpitation, abdomen pain, nausea vomiting. Chest pain is related to the cough Exam Narrative: GENERAL:? Lethargic in no acute distress. Well-nourished.? Obesity. falling asleep while I am talking to her. very large and thick neck, appearing to compress trachea - EYES: EOMI. Anicteric. - HENT: Moist mucous membranes. - LUNGS:? improved bs bl at bases - CARDIOVASCULAR: Regular rate and rhythm. No murmur. No JVD. - ABDOMEN: Soft, non-tender and non-distended. No palpable masses. abd has swelling on it peripherally. - EXTREMITIES: 3+ pitting LE edema with significant tenderness. - NEUROLOGIC: No focal neurological deficits. CN II-XII grossly intact. - PSYCHIATRIC: Awake, Alert and oriented x 3.? Lethargic regarding mood and affect. - SKIN:? Scaly rashes bilateral groin and redness tender on swelling of the skin bilateral groin and suprapubic region - LYMPH: No cervical lymphadenopathy. Objective Data Vital Signs Vital Signs: Vital Signs - 24 hr 07/09/23 09:00 07/09/23 09:43 07/09/23 10:20 Temperature 97.4 F L Pulse Rate 83 89 83 Respiratory Rate 17 Blood Pressure 117/40 L 133/57 L Pulse Oximetry 99 Oxygen Delivery 07/09/23 14:47 07/09/23 20:45 07/09/23 20:00 Temperature 98.3 F 97.3 F L Pulse Rate 82 7
[2023-07-10 08:32] LABS: Glucose Point of Care 186 mg/dl (65-105)
[2023-07-10] MEDS: GABAPENTIN 300 MG CAPSULE PO ×3 (08:48→18:00)
[2023-07-10] MEDS: METOPROLOL TARTRATE 12.5 MG TABLET PO ×2 (08:48→20:16)
[2023-07-10] MEDS: guaiFENesin 12 HR 600 MG TABCR PO ×2 (08:48→20:16)
[2023-07-10] MEDS: levETIRAcetam 500 MG TABLET PO ×2 (08:48→20:16)
[2023-07-10] MEDS: INSULIN ASPART (*BKC) 100 UNITS/ML 7 UNITS SUB-Q ×3 (08:49→18:01)
[2023-07-10] MEDS: FUROSEMIDE 40 MG TABLET PO ×2 (08:49→18:01)
[2023-07-10] MEDS: DOCUSATE SODIUM 100 MG CAPSULE PO (08:49)
[2023-07-10] MEDS: FAMOTIDINE 20 MG TABLET PO (08:49)
[2023-07-10] MEDS: LORATADINE 10 MG TABLET PO (08:49)
[2023-07-10] MEDS: lisinopriL 20 MG TABLET PO (08:53)
[2023-07-10] MEDS: SODIUM ZIRCONIUM CYCLOSILICATE 10 GM POWD.PACK PO (10:35)
--- NOTE | 2023-07-10 11:40 | ECG_ITS ---
Measurements Intervals [place] Rate: 78 P: 45 AK: 147 QRS: 37 QRSD: 89 T: 8 QT: 375 QTc: 429 Interpretive Statements SINUS RHYTHM LOW QRS VOLTAGE IN PRECORDIAL LEADS [QRS DEFLECTION < 1.0 mV IN CHEST LEADS] POOR R-WAVE PROGRESSION ABNORMAL ECG COMPARED TO ECG 07/04/2023 12:10:50 PACEMAKER IS INHIBITED Electronically Signed On 07-10-2023 13:37:58 [employer] by Timmy Mcelroy M.D.
[2023-07-10 11:53] LABS: Glucose Point of Care 273 mg/dl (65-105)
[2023-07-10] MEDS: FERROUS SULFATE 325 MG TABLET DR PO ×2 (12:12→18:00)
[2023-07-10] MEDS: INSULIN ASPART (*BKC) 100 UNITS/ML SUB-Q ×2 (12:12→20:18)
[2023-07-10] MEDS: ARTIFICIAL TEARS OPHTH SOLN 15 ML BOTTLE 1 DROP EACH EYE (12:12)
[2023-07-10 12:16] LABS: Troponin I < 0.012 ng/mL (0.000-0.034)
--- NOTE | 2023-07-10 13:15 | PC.NURSE ---
Patient refused dressing change to left foot. Patient requested it to be done later sherrie
[2023-07-10 17:39] LABS: Glucose Point of Care 176 mg/dl (65-105)
[2023-07-10] MEDS: WARFARIN (*PBKC) 5 MG TABLET PO (18:00)
[2023-07-10] MEDS: INSULIN GLARGINE (*BKC) 100 UNITS/ML 18 UNITS SUB-Q (18:01)
[2023-07-10 19:59] LABS: Glucose Point of Care 217 mg/dl (65-105)
[2023-07-10] MEDS: traZODone HCL 50 MG TABLET 100 MG PO (20:15)
[2023-07-10] MEDS: traMADol HCL (*CRX) 50 MG TABLET PO (22:10)
[2023-07-11] MEDS: ACETAMINOPHEN 325 MG TABLET 650 MG PO (00:59)
[2023-07-11] MEDS: ARTIFICIAL TEARS OPHTH SOLN 15 ML BOTTLE 1 DROP EACH EYE ×2 (01:07→03:26)
[2023-07-11] MEDS: traMADol HCL (*CRX) 50 MG TABLET PO (03:28)
[2023-07-11 05:07] VITALS: BP 118/56; PULSE 72; RESP 18; TEMP 36.5; O2SAT 100
[2023-07-11 05:50] LABS: INR 2.2; Prothrombin Time 26.1 Seconds (11.1-14.7)
[2023-07-11] MEDS: TOLNAFTATE 1% POWDER 45 GM BTL 1 APPLIC TOPICAL ×2 (06:01→12:45)
[2023-07-11] MEDS: INSULIN ASPART (*BKC) 100 UNITS/ML 7 UNITS SUB-Q ×3 (08:40→17:45)
[2023-07-11 08:50] LABS: Glucose Point of Care 197 mg/dl (65-105)
--- NOTE | 2023-07-11 09:02 | PM.IMPN ---
Progress Note: A&P Assessment and Plan (1) Hematuria: Code(s): R31.9 - Hematuria, unspecified Status: Acute (2) Cellulitis of abdominal wall: Code(s): L03.311 - Cellulitis of abdominal wall Status: Acute (3) COVID-19 virus infection: Code(s): U07.1 - COVID-19 Status: Acute Plan 47F resident of [place] w/ PMH obesity, neurocognitive disorder, chronic indwelling garner, seizure disorder, HTN, HLD, IDDM, hx of DVT, COPD, EAMON, HFpEF, depression, eczema presented with a few days of cough. # COVID-19 pneumonia - cough has subsided. no more respiratory distress. resolved - received remdesivir, bronchodilators and decadron. ctm respiratory status -pleuritic chest pain, associated with cough, EKG shows sinus rhythm, low voltage, troponin negative now no chest pain # EAMON, probably OHS, COPD - on 07/04 had acute co2 retention, has since improved. received flumazenil and narcan. xanas and oxycodone since in'ed as well - cont cpap at night. duonebs as needed. - resolved. on room air as well. # cellulitis of bilateral groin and suprapubic skin w/ superimposed fungal infection - received abx, cellulitis greatly improved. continue tolnaftate and miconazole nitrate # complicated UTI - has indwelling garner, treated with ceftriaxone and then cipro for an additional 7 days for enterobacter - 07/06 mild hematuria. urology consulted, by the time they saw her the urine was clear. ctm # diastolic heart failure - cont lasix. euvolemic # RLE DVT while on eliquis - 07/03 doppler US demonstrated DVT. she presented with eliquis on board, reports did not have DVT while on coumadin previously. It should also be considered that she had a DVT while actively having COVID so that could be another precipitating factor. - coumadin 5mg, upgraded to 10mg, and on 07/09 her INR is therapeutic at 2.2. d/c lovenox. coumadin changed back to 5mg. continue to follow - CEA elevated at 5. CA 19 and 125 WNL. cannot get CTA 2/2 contrast allergy. consider outpatient PET scan or colonoscopy/oncology consult. pt seems quite uninterested in pursuing anything at the moment. however, would revisit this now that her other issues are improving # HTN - ctm # IDDM - cont lantus and lispro scheduled with sliding scale an accuchecks. # JAYESH - resolved. cautious with diuresis - hyperkalemia, resolved FEN: saline lock IV GI prophylaxis: not indicated DVT prophylaxis: warfarin Lines: PIV, garner indwelling Code Status: full code Dispo: stabled for discharge Subjective Date/time seen: 07/11/23 09:02 Interval history: I saw exam patient today. Patient feels better today, denies chest pain palpitation, abdomen pain, nausea vomiting, headache, focal weakness. Exam Narrative: GENERAL:? Lethargic in no acute distress. Well-nourished.? Obesity. falling asleep while I am talking to her. very large and thick neck, appearing to compress trachea - EYES: EOMI. Anicteric. - HENT: Moist mucous membranes. - LUNGS:? improved bs bl at bases - CARDIOVASCULAR: Regular rate and rhythm. No murmur. No JVD. - ABDOMEN: Soft, non-tender and non-distended. No palpable masses. abd has swelling on it peripherally. - EXTREMITIES: 3+ pitting LE edema with significant tenderness. - NEUROLOGIC: No focal neurological deficits. CN II-XII grossly intact. - PSYCHIATRIC: Awake, Alert and oriented x 3.? Lethargic regarding mood and affect. - SKIN:? Scaly rashes bilateral groin and redness tender on swelling of the skin bilateral groin and suprapubic region - LYMPH: No cervical lymphadenopathy. Objective Data Vital Signs Vital Signs: Vital Signs - 24 hr 07/10/23 11:36 07/10/23 13:58 07/10/23 20:16 Temperature 97.8 F Pulse Rate 100 81 84 Respiratory Rate 16 18 Blood Pressure 128/66 115/51 L Pulse Oximetry 100 98 Oxygen Delivery Fraction of Inspired Oxygen 07/10/23 20:23 07/10/23 20:00 07/11/23 05:07 Temperature 97.9 F 97.7 F Pulse Rate 84
[2023-07-11 09:04] VITALS: BP 113/69; PULSE 76; RESP 17; O2SAT 100
[2023-07-11 09:32] VITALS: PULSE 84
[2023-07-11] MEDS: GABAPENTIN 300 MG CAPSULE PO ×3 (09:32→17:49)
[2023-07-11] MEDS: FUROSEMIDE 40 MG TABLET PO ×2 (09:32→17:49)
[2023-07-11] MEDS: DOCUSATE SODIUM 100 MG CAPSULE PO (09:32)
[2023-07-11] MEDS: levETIRAcetam 500 MG TABLET PO (09:32)
[2023-07-11] MEDS: FAMOTIDINE 20 MG TABLET PO (09:32)
[2023-07-11] MEDS: lisinopriL 20 MG TABLET PO (09:32)
[2023-07-11] MEDS: guaiFENesin 12 HR 600 MG TABCR PO (09:32)
[2023-07-11] MEDS: LORATADINE 10 MG TABLET PO (09:32)
[2023-07-11] MEDS: METOPROLOL TARTRATE 12.5 MG TABLET PO (09:32)
--- NOTE | 2023-07-11 11:07 | PM.DS ---
DS: Admitting Diagnosis Discharge Date 07/11 Admitting Diagnosis (1) Hematuria: ?Code(s): R31.9 - Hematuria, unspecified ?Status:?Acute (2) Cellulitis of abdominal wall: ?Code(s): L03.311 - Cellulitis of abdominal wall ?Status:?Acute (3) COVID-19 virus infection: ?Code(s): U07.1 - COVID-19 ?Status:?Acute DS: Discharge Diagnosis Discharge Diagnosis (1) Cellulitis of abdominal wall: Code(s): L03.311 - Cellulitis of abdominal wall Status: Acute (2) COVID-19 virus infection: Code(s): U07.1 - COVID-19 Status: Acute (3) UTI (urinary tract infection): Qualifiers: Encounter type: initial encounter Indwelling urinary catheter type: indwelling urethral catheter Urinary tract infection type: catheter-associated UTI Qualified Code(s): T83.511A - Infection and inflammatory reaction due to indwelling urethral catheter, initial encounter; N39.0 - Urinary tract infection, site not specified Code(s): N39.0 - Urinary tract infection, site not specified Status: Acute (4) Complicated UTI (urinary tract infection): Code(s): N39.0 - Urinary tract infection, site not specified Status: Acute DS: Summary Hospital Course Hospital Course: 47F resident of retirement w/ PMH obesity, neurocognitive disorder, chronic indwelling garner, seizure disorder, HTN, HLD, IDDM, hx of DVT, COPD, EAMON, HFpEF, depression, eczema presented with a few days of cough. The following medical issues have been addressed during hospitalization # COVID-19 pneumonia - cough has subsided. no more respiratory distress. resolved - received remdesivir, bronchodilators and decadron. ctm respiratory status -pleuritic chest pain, associated with cough, EKG shows sinus rhythm, low voltage, troponin negative now no chest pain # EAMON, probably OHS, COPD - on 07/04 had acute co2 retention, has since improved. received flumazenil and narcan. xanas and oxycodone since tn'ed as well - cont cpap at night. duonebs as needed. - resolved. on room air as well. # cellulitis of bilateral groin and suprapubic skin w/ superimposed fungal infection - received abx, cellulitis greatly improved. continue tolnaftate and miconazole nitrate # complicated UTI - has indwelling garner, treated with ceftriaxone and then cipro for an additional 7 days for enterobacter - 07/06 mild hematuria. urology consulted, by the time they saw her the urine was clear. ctm # diastolic heart failure - cont lasix. euvolemic # RLE DVT while on eliquis - 07/03 doppler US demonstrated DVT. she presented with eliquis on board, reports did not have DVT while on coumadin previously. It should also be considered that she had a DVT while actively having COVID so that could be another precipitating factor. - coumadin 5mg, upgraded to 10mg, and on 07/09 her INR is therapeutic at 2.2. d/c lovenox. coumadin changed back to 5mg. continue to follow - CEA elevated at 5. CA 19 and 125 WNL. cannot get CTA 2/2 contrast allergy. consider outpatient PET scan or colonoscopy/oncology consult. pt seems quite uninterested in pursuing anything at the moment. however, would revisit this now that her other issues are improving # HTN - ctm # IDDM - cont lantus and lispro scheduled with sliding scale an accuchecks. # JAYESH - resolved. cautious with diuresis - hyperkalemia, resolved Time Spent with Patient Time attestation: Total time spent providing and/or coordinating discharge services: Exam Narrative: GENERAL:? Lethargic in no acute distress. Well-nourished.? Obesity. falling asleep while I am talking to her. very large and thick neck, appearing to compress trachea - EYES: EOMI. Anicteric. - HENT: Moist mucous membranes. - LUNGS:? improved bs bl at bases - CARDIOVASCULAR: Regular rate and rhythm. No murmur. No JVD. - ABDOMEN: Soft, non-tender and non-distended. No palpable masses. abd has swelling on it peripherally. - EXTREMITIES: 3+ pit
[2023-07-11 12:04] LABS: Glucose Point of Care 278 mg/dl (65-105)
[2023-07-11] MEDS: INSULIN ASPART (*BKC) 100 UNITS/ML SUB-Q ×2 (12:25→17:45)
[2023-07-11] MEDS: FERROUS SULFATE 325 MG TABLET DR PO ×2 (12:43→17:49)
[2023-07-11] MEDS: SODIUM ZIRCONIUM CYCLOSILICATE 10 GM POWD.PACK PO (12:44)
[2023-07-11 15:00] VITALS: BP 111/49; PULSE 82; RESP 18; TEMP 36.3; O2SAT 100
[2023-07-11 17:21] LABS: Glucose Point of Care 228 mg/dl (65-105)
[2023-07-11] MEDS: WARFARIN (*PBKC) 5 MG TABLET PO (17:49)
[2023-07-11] MEDS: INSULIN GLARGINE (*BKC) 100 UNITS/ML 18 UNITS SUB-Q (17:51)
--- NOTE | 2023-07-11 17:58 | PC.NURSE ---
Patient refused wound care photos to be taken at discharge
== END 2023-07-11 18:00 | DRG 137 ==
LOC: ANHED 14:41 → ANH2MED 18:49
PROVIDERS: General Practice; Internal Medicine; Physician Assistant; Admitting Provider Family Medicine; Emergency Provider Student in an Organized Health Care Education/Training Program; PCP Internal Medicine; Visit Provider Hospitalist
DX: U07.1 COVID-19 (principal); J12.82 Pneumonia due to coronavirus disease 2019; T83.511A Infection and inflammatory reaction due to indwelling urethral catheter, initial encounter; Z68.42 Body mass index [BMI] 45.0-49.9, adult; R41.9 Unspecified symptoms and signs involving cognitive functions and awareness; G40.909 Epilepsy, unspecified, not intractable, without status epilepticus; E78.5 Hyperlipidemia, unspecified; E11.9 Type 2 diabetes mellitus without complications; Z79.4 Long term (current) use of insulin; Z86.718 Personal history of other venous thrombosis and embolism; J44.9 Chronic obstructive pulmonary disease, unspecified; F41.9 Anxiety disorder, unspecified; L30.9 Dermatitis, unspecified; I13.0 Hypertensive heart and chronic kidney disease with heart failure and stage 1 through stage 4 chronic kidney disease, or unspecified chronic kidney disease; E11.22 Type 2 diabetes mellitus with diabetic chronic kidney disease; N18.9 Chronic kidney disease, unspecified; I50.32 Chronic diastolic (congestive) heart failure; N17.9 Acute kidney failure, unspecified; E66.2 Morbid (severe) obesity with alveolar hypoventilation; L03.314 Cellulitis of groin; N39.0 Urinary tract infection, site not specified; B96.89 Other specified bacterial agents as the cause of diseases classified elsewhere; Z95.0 Presence of cardiac pacemaker; D63.1 Anemia in chronic kidney disease; M19.90 Unspecified osteoarthritis, unspecified site; F31.9 Bipolar disorder, unspecified; Z79.01 Long term (current) use of anticoagulants; Z86.711 Personal history of pulmonary embolism; K21.9 Gastro-esophageal reflux disease without esophagitis; Z86.14 Personal history of Methicillin resistant Staphylococcus aureus infection; Z91.199 Patient's noncompliance with other medical treatment and regimen due to unspecified reason; E11.42 Type 2 diabetes mellitus with diabetic polyneuropathy; Z91.51 Personal history of suicidal behavior; Z96.653 Presence of artificial knee joint, bilateral; Z90.49 Acquired absence of other specified parts of digestive tract; E87.5 Hyperkalemia; R31.29 Other microscopic hematuria; Z16.30 Resistance to unspecified antimicrobial drugs; I82.431 Acute embolism and thrombosis of right popliteal vein
CPT/HCPCS: 36415; 36600; 71045; 74176; 80048; 80053; 80076; 81001; 81025; 82248; 82375; 82378; 82805; 82948; 83050; 83690; 83735; 83880; 84145; 84439; 84443; 84484; 85025; 85027; 85380; 85384; 85610; 85730; 86301; 86304; 87077; 87086; 87088; 87186; 87636; 93005; 93970; 94002; 94640; 96361; 96365; 96374; 96375; 99285; A9270; G0378; G0379; J0248; J0612; J0690; J0696; J1100; J1650; J1815; J1940; J2270; J2310; J2405; J7030; J7120

== ENCOUNTER 2023-09-06 14:56 | Inpatient (IN) | payer OTHER, SELFPAY ==
[2023-09-06] VITALS (15 sets, daily range): BP systolic 99–121; BP diastolic 55–88; PULSE 88–110; RESP 10–25; TEMP 36.6; O2SAT 97–100; BMI 48.6
--- NOTE | 2023-09-06 15:14 | ED.GENADULT ---
HPI - General Adult General Chief complaint: Skin/Abscess/Foreign Body Stated complaint: pain r/t cellulitis History of Present Illness HPI narrative: 47-year-old female presenting to the emergency department from local skilled nursing for evaluation suspected cellulitis. Patient was started on antibiotics yesterday for abdominal wall cellulitis. Patient states she presented to the ED for evaluation of the rash and for treatment of pain. Patient had not been told that she was started on antibiotics for the cellulitis. Patient had a recent hospital admission during which she was started on antibiotics and antifungal for a suspected fungal and bacterial cellulitis. Related Data Home Medications Medication Instructions Recorded Confirmed furosemide 20 mg tablet 40 mg PO BID 01/18/22 06/30/23 albuterol sulfate 90 mcg/actuation 2 puff inhalation Q4H PRN 04/22/22 06/30/23 aerosol inhaler Shortness Of Breath famotidine 20 mg tablet (Pepcid) 20 mg PO DAILY 04/22/22 06/30/23 lisinopril 20 mg tablet 20 mg PO DAILY 04/22/22 06/30/23 loratadine 10 mg tablet 10 mg PO DAILY 04/22/22 06/30/23 gabapentin 300 mg capsule 300 mg PO TID 09/21/22 06/30/23 levetiracetam 500 mg tablet 500 mg PO BID 10/15/22 06/30/23 bisacodyl 10 mg rectal suppository 10 mg RECTAL DAILY PRN Constipation 12/18/22 06/30/23 glucagon 1 mg solution for 1 mg subcut Q1H PRN Hypoglycemia 12/18/22 06/30/23 injection (GlucaGen HypoKit) insulin glargine 100 unit/mL (3 10 unit subcut QPM 12/18/22 06/30/23 mL) subcutaneous pen (Lantus Solostar U-100 Insulin) polyethylene glycol 3350 17 gram 17 g PO DAILY PRN Constipation 12/18/22 06/30/23 oral powder packet insulin lispro 100 unit/mL 7 unit subcut TIDWM 04/04/23 06/30/23 subcutaneous solution trazodone 50 mg tablet 100 mg PO HS 04/04/23 06/30/23 Betadine Swabsticks 1 applic topical DAILY 05/04/23 06/30/23 promethazine 25 mg rectal 25 mg RECTAL Q8H PRN nausea and 05/04/23 06/30/23 suppository vomitting acetaminophen 650 mg PO Q6H PRN Pain (Scale 06/30/23 06/30/23 Score 4-6) ferrous sulfate 325 mg (65 mg 324 mg PO BID 06/30/23 06/30/23 iron) tablet simethicone 125 mg capsule (Gas 250 mg PO .PRN PRN Stomach Upset 06/30/23 06/30/23 Relief (simethicone)) sitagliptin phosphate 100 mg tablet 100 mg PO DAILY 06/30/23 06/30/23 torsemide 10 mg tablet 10 mg PO DAILY 06/30/23 06/30/23 Allergies Allergy/AdvReac Type Severity Reaction Status Date / Time lidocaine Allergy Intermediate HIVES Verified 06/30/23 20:36 nitroglycerin Allergy Intermediate HIVES Verified 06/30/23 20:36 aspirin Allergy Mild Hives Verified 06/30/23 20:36 citalopram Allergy Mild Rash Verified 06/30/23 20:36 escitalopram Allergy Mild Hives Verified 06/30/23 20:36 ibuprofen Allergy Mild Hives Verified 06/30/23 20:36 Penicillins Allergy Mild HIVES PER Verified 06/30/23 20:36 UNCODED ALLERGIES 08/27/12 procaine Allergy Mild Hives Verified 06/30/23 20:36 propoxyphene Allergy Mild Hives Verified 06/30/23 20:36 doxycycline Allergy Unknown Hives Verified 06/30/23 20:36 meloxicam Allergy Unknown HIVES Verified 06/30/23 20:36 Sulfa (Sulfonamide Allergy Unknown HIVES PER Verified 06/30/23 20:36 Antibiotics) UNCODED ALLERGIES 08/27/12 sulfamethoxazole Allergy Unknown Hives Verified 06/30/23 20:36 trimethoprim Allergy Unknown Hives Verified 06/30/23 20:36 amoxicillin Allergy Hives Verified 06/30/23 20:36 codeine Allergy Hives Verified 06/30/23 20:36 iohexol Allergy Hives Verified 06/30/23 20:36 [From contrast - CT, X-RAY] adhesive AdvReac Unknown SILK TAPE= Verified 06/30/23 20:36 HIVES imipenem AdvReac Itching Verified 06/30/23 20:36 Review of Systems Review of Systems: All systems reviewed & are unremarkable except as noted in HPI and below PMFSH Past Medical History Medical History Anemia Anxiety Arthritis Asthma Bipolar disorder Chronic anticoagulat
[2023-09-06 15:33] LABS: Basophils Percent Auto 0.6 % (0.2-1.2); Eosinophils Absolute Auto 0.4 K/mm3 (0-0.3); Eosinophils Percent Auto 6.4 % (0-4.4); Hematocrit 28.5 % (37.0-47.0); Hemoglobin 8.5 g/dL (12.0-15.0); Immature Granulocyte Absolute 0.03 K/mm3 (0.00-0.031); Immature Granulocyte Percent A 0.5 % (0-0.5); Lymphocytes Percent Auto 22.4 % (18.3-44.2); Mean Corpuscular HGB Conc 29.8 g/dl (32-36); Mean Corpuscular Hemoglobin 27.4 pg (26-34); Mean Corpuscular Volume 91.9 fl (80-100); Monocytes Absolute Auto 0.5 K/mm3 (0.1-0.6); Monocytes Percent Auto 7.2 % (2.6-8.5); Neutrophils Absolute Auto 3.9 K/mm3 (1.3-6.7); Neutrophils Percent Auto 62.9 % (45.5-73.1); Platelet Count Result 265 k/mm3 (150-375); Red Cell Distribution Width 15.4 % (11.5-14.5); White Blood Count 6.2 K/mm3 (4.5-10.0)
[2023-09-06 15:47] LABS: Anisocytosis 1+ (NORMAL); Hypochromasia 1+ (NORMAL); Ovalocytes 1+ (NORMAL); Platelet Estimate Adequate (Adequate); Schistocytes None Seen (NORMAL)
[2023-09-06 15:49] LABS: Alanine Aminotransferase 17 U/L (6-35); Albumin Level 3.3 g/dL (3.5-5.1); Alkaline Phosphatase 123 U/L (38-126); Anion Gap 5 mmol/L (8-16); Aspartate Amino Transferase 19 U/L (14-36); Bilirubin,Total 0.3 mg/dL (0.2-1.3); Blood Urea Nitrogen 55 mg/dL (7-17); Calcium 8.9 mg/dL (8.4-10.2); Carbon Dioxide 32 mmol/L (22-30); Chloride 102 mmol/L (98-107); Estimated Glomerular Filt Rate 59; Glucose 223 mg/dL (65-110); Potassium 5.8 mmol/L (3.4-5.0); Sodium 139 mmol/L (137-145)
[2023-09-06 15:52] LABS: INR 1.1; Partial Thromboplastin Time 28.2 SECONDS (22.3-36.8); Prothrombin Time 15.1 Seconds (11.1-14.7)
--- NOTE | 2023-09-06 15:57 | ECG_ITS ---
Measurements Intervals [place] Rate: 87 P: 51 DC: 174 QRS: 25 QRSD: 89 T: 35 QT: 358 QTc: 433 Interpretive Statements SINUS RHYTHM LOW QRS VOLTAGE IN PRECORDIAL LEADS BASELINE ARTIFACT- I, II, III, AVR, AVL, AVF, V1 BORDERLINE ECG COMPARED TO ECG 07/10/2023 11:51:19 NO SIGNIFICANT CHANGES Electronically Signed On 09-06-2023 19:23:33 SOFTWARE DATABASE ARCHITECT by Kalin Castorena D.O.
[2023-09-06] MEDS: ALBUTEROL SULFATE NEB 2.5 MG/3 ML INH 10 MG INHALATION (16:14)
--- NOTE | 2023-09-06 16:14 | PM.IMHP ---
H&P: HPI History of Present Illness Date/Time: 09/06/23 16:14 [facility] Past Medical History Medical History Anemia Anxiety Arthritis Asthma Bipolar disorder Chronic anticoagulation For history of DVT and PE. Chronic kidney disease Chronic obstructive pulmonary disease Chronic pain syndrome Deep venous thrombosis Depression Diastolic dysfunction Eczema Epilepsy Gastroesophageal reflux disease Herniated disc History of MRSA infection Hyperlipidemia Hypertension Insulin dependent diabetes mellitus Historically poorly controlled. Obesity Obstructive sleep apnea Non compliant with treatment. Peripheral neuropathy Personal history of noncompliance with medical treatment and regimen Pulmonary embolism Seizures Suicide attempt T11 vertebral fracture Nondisplaced fracture of the right T11 inferior articulating facet. No surgical intervention required. UTI (urinary tract infection) Surgical History Surgical History History of bilateral knee replacement History of cardiac catheterization History of cardiac pacemaker For paroxysmal ventricular arrhythmia/tachycardia. History of cholecystectomy Family History Family History Mother Heart disease Acute myocardial infarction Uterine cancer COVID-19 Diabetes mellitus Hypertension Kidney disease Father Heart disease Social History Social History Social History: Surrogate medical decision maker: Meño Marquez, significant other. Code status: Full code. Smoking packs per day: 1.5 Smoking cigarettes per day: 30.0 Years smoked: 9 Smoking pack-years: 13.50 Smoking status: Never smoker Second hand tobacco smoke exposure: Yes Alcohol intake: never Substance use: never Substance use type: does not use Lack of Transportation: No Lack of Food: Never True Current Housing: I Have Housing Concerned About Future Housing: No Difficulty Paying Gas/Electric Bills: No Difficulty Paying for Meds: No Currently Unemployed: No Education: Don't Know Difficulty w/ Childcare or Family Care: No Living arrangements: with family Additional living arrangements comments: . Four children being raised by her sister. Additional occupation/education comments: Disabled. Spiritual care concerns: No Meds Home Medications and Allergies Home Medications Medication Instructions Recorded Confirmed Type furosemide 20 mg tablet 40 mg PO BID 01/18/22 06/30/23 History albuterol sulfate 90 mcg/actuation 2 puff inhalation Q4H PRN 04/22/22 06/30/23 History aerosol inhaler Shortness Of Breath famotidine 20 mg tablet (Pepcid) 20 mg PO DAILY 04/22/22 06/30/23 History lisinopril 20 mg tablet 20 mg PO DAILY 04/22/22 06/30/23 History loratadine 10 mg tablet 10 mg PO DAILY 04/22/22 06/30/23 History tolnaftate 1 % topical powder 1 applic topical Q12HR #45 grams 04/29/22 06/30/23 Rx gabapentin 300 mg capsule 300 mg PO TID 09/21/22 06/30/23 History levetiracetam 500 mg tablet 500 mg PO BID 10/15/22 06/30/23 History bisacodyl 10 mg rectal suppository 10 mg RECTAL DAILY PRN Constipation 12/18/22 06/30/23 History glucagon 1 mg solution for 1 mg subcut Q1H PRN Hypoglycemia 12/18/22 06/30/23 History injection (GlucaGen HypoKit) insulin glargine 100 unit/mL (3 10 unit subcut QPM 12/18/22 06/30/23 History mL) subcutaneous pen (Lantus Solostar U-100 Insulin) polyethylene glycol 3350 17 gram 17 g PO DAILY PRN Constipation 12/18/22 06/30/23 History oral powder packet insulin lispro 100 unit/mL 7 unit subcut TIDWM 04/04/23 06/30/23 History subcutaneous solution trazodone 50 mg tablet 100 mg PO HS 04/04/23 06/30/23 History docusate sodium 100 mg capsule 100 mg PO DAILY Constipation #10 04/09/23 06/30/23 Rx
[2023-09-06] MEDS: DEXTROSE 50% 25 GM/50 ML SYRINGE IV PUSH (16:46)
[2023-09-06] MEDS: SODIUM BICARBONATE 8.4% 50 MEQ/50 ML SYRINGE IV PUSH (16:46)
[2023-09-06] MEDS: INSULIN HUMAN REGULAR (*BKC) 100 UNITS/ML IV PUSH (16:46)
[2023-09-06 17:09] LABS: Appearance Urine Cloudy (Clear); Bacteria Urine 4+ /hpf; Bilirubin Urine Negative (Negative); Blood Urine 2+ (Negative); Color Urine Yellow (Yellow); Glucose Urine UA Negative (Negative); Ketones Urine Negative (Negative); Leukocyte Esterase Ur 3+ LEU/UL (Negative); Mucus Urine Present /lpf; Need Manual Microscopic Reviewed; Nitrate Urine Negative (Negative); Protein Urine 1+ mg/dL (Negative); RBC Urine 21-50 /hpf (0-2); Specific Grav Ur 1.014 (1.001-1.035); Squamous Epithelial Cell Urine None seen /hpf (Few); WBC Urine >100 /hpf
[2023-09-06 17:11] LABS: Add Urine Microscopic? YES
[2023-09-06] MEDS: FLUCONAZOLE 150 MG TABLET PO (17:33)
[2023-09-06] MEDS: VANCOMYCIN 1,500 MG/NS 500 ML 1,500 MG/500 ML BAG 250 MG IVPB (17:34)
--- NOTE | 2023-09-06 20:08 | PM.IMHP ---
H&P: HPI History of Present Illness Date/Time: 09/06/23 20:08 Chief Complaint: abdominal was cellulitis Narrative: This is a 47-year-old female with past medical history significant for type 2 diabetes mellitus, morbid obesity, bipolar disorder, chronic kidney disease, chronic obstructive pulmonary disease, chronic pain syndrome, deep vein thrombosis, diastolic heart failure, epilepsy, gastroesophageal reflux disease, hypertension, diabetic peripheral neuropathy, obstructive sleep apnea. patient presents to the emergency room due to right flank redness, tenderness, swelling extending caudalad to her thigh patient had completed a course of antibiotics in the outpatient setting but did not resolve Review of Systems Review of Systems: abdomen redness, tenderness, swelling Constitutional: Constitutional: Reports chills, Reports fever(s), Reports malaise and Reports night sweats Eyes: Eyes: Denies change in vision ENT: Denies dysphagia and Denies odynophagia Cardiovascular: Cardiovascular: Denies chest pain, Reports leg edema, Denies radiating jaw, neck or arm pain and Denies palpitations Respiratory: Respiratory: Denies chest congestion and Denies cough Gastrointestinal: Gastrointestinal: Denies abdominal pain, Denies dyspepsia, Denies heartburn, Denies diarrhea, Denies nausea and Denies vomiting Genitourinary: Genitourinary: Denies dysuria Musculoskeletal: Musculoskeletal: Denies arthralgias and Denies joint swelling Integumentary/Breasts: Skin/Breast: Reports erythema (right flank), Reports skin pain and Reports skin swelling Neurologic: Denies focal weakness and Denies Sensory deficit (Neuro) Psychiatric: Psychiatric: Reports no additional psychiatric complaints and Reports as per HPI Endocrine: Endocrine: Denies cold intolerance, Denies flushing, Denies heat intolerance, Denies polyphagia, Denies polydipsia and Denies palpitations Hematologic/Lymphatic: Hematologic/Lymphatic: Reports no additional hematologic/lymphatic complaints and Reports as per HPI Allergic/Immunologic: Allergic/Immunologic: Reports no additional allergic/immunologic complaints and Reports as per HPI PMFSH Past Medical History Medical History Anemia Anxiety Arthritis Asthma Bipolar disorder Chronic anticoagulation For history of DVT and PE. Chronic kidney disease Chronic obstructive pulmonary disease Chronic pain syndrome Deep venous thrombosis Depression Diastolic dysfunction Eczema Epilepsy Gastroesophageal reflux disease Herniated disc History of MRSA infection Hyperlipidemia Hypertension Insulin dependent diabetes mellitus Historically poorly controlled. Obesity Obstructive sleep apnea Non compliant with treatment. Peripheral neuropathy Personal history of noncompliance with medical treatment and regimen Pulmonary embolism Seizures Suicide attempt T11 vertebral fracture Nondisplaced fracture of the right T11 inferior articulating facet. No surgical intervention required. UTI (urinary tract infection) Surgical History Surgical History History of bilateral knee replacement History of cardiac catheterization History of cardiac pacemaker For paroxysmal ventricular arrhythmia/tachycardia. History of cholecystectomy Family History Family History Mother Heart disease Acute myocardial infarction Uterine cancer COVID-19 Diabetes mellitus Hypertension Kidney disease Father Heart disease Social History Social History Social History: Surrogate medical decision maker: Meño Marquez, significant other. Code status: Full code. Smoking packs per day: 1.5 Smoking cigarettes per day: 30.0 Years smoked: 9 Smoking pack-years: 13.50 Smoking status: Former smoker [place]a
[2023-09-06 20:11] LABS: Anion Gap 3 mmol/L (8-16); Blood Urea Nitrogen 58 mg/dL (7-17); Calcium 8.2 mg/dL (8.4-10.2); Carbon Dioxide 35 mmol/L (22-30); Chloride 101 mmol/L (98-107); Estimated Glomerular Filt Rate 48; Glucose 330 mg/dL (65-110); Potassium 5.5 mmol/L (3.4-5.0); Sodium 139 mmol/L (137-145)
--- NOTE | 2023-09-06 20:45 | ADMGEN ---
This patient, Valerie Nguyen, was admitted to IMU Room 200-01 at 2034. Patient/family oriented to hospital policies and general routines including ID bracelet, bed and alarms, visiting hours, pain management, procedures, bathroom and other care routines, personal items, smoking policy, room service/diet, and visiting hours. Information on how to activate the Rapid Response Team has been discussed. Patient/Family are encouraged to report perceived risks to care and to ask questions if they do not understand what they are told or what they should do.
[2023-09-06 21:16] LABS: Glucose Point of Care 301 mg/dl (65-105)
[2023-09-06] MEDS: METOPROLOL TARTRATE 12.5 MG TABLET PO (22:11)
[2023-09-06] MEDS: WARFARIN (*PBKC) 5 MG TABLET PO (22:11)
[2023-09-06] MEDS: ALPRAZolam (*CRX) 0.5 MG TABLET PO (22:11)
[2023-09-06] MEDS: GABAPENTIN 300 MG CAPSULE PO (22:13)
[2023-09-06] MEDS: traMADol HCL (*CRX) 50 MG TABLET PO (22:19)
[2023-09-06] MEDS: INSULIN GLARGINE (*BKC) 100 UNITS/ML 10 UNITS SUB-Q (22:19)
[2023-09-07] VITALS (19 sets, daily range): BP systolic 101–143; BP diastolic 46–71; PULSE 81–94; RESP 16–20; TEMP 36.2–37.1; O2SAT 94–100
[2023-09-07 05:20] LABS: INR 1.1; Prothrombin Time 14.7 Seconds (11.1-14.7)
[2023-09-07 05:25] LABS: Estimated Glomerular Filt Rate 53
[2023-09-07 08:10] LABS: Glucose Point of Care 149 mg/dl (65-105)
[2023-09-07 08:15] LABS: Basophils Percent Auto 0.6 % (0.2-1.2); Eosinophils Absolute Auto 0.4 K/mm3 (0-0.3); Eosinophils Percent Auto 5.6 % (0-4.4); Hematocrit 27.5 % (37.0-47.0); Immature Granulocyte Absolute 0.05 K/mm3 (0.00-0.031); Immature Granulocyte Percent A 0.8 % (0-0.5); Lymphocytes Absolute Auto 1.06 K/mm3 (0.9-3.2); Lymphocytes Percent Auto 16.9 % (18.3-44.2); Mean Corpuscular HGB Conc 29.1 g/dl (32-36); Mean Corpuscular Hemoglobin 27.6 pg (26-34); Mean Corpuscular Volume 94.8 fl (80-100); Mean Platelet Volume 9.8 fl (7.4-10.4); Monocytes Absolute Auto 0.6 K/mm3 (0.1-0.6); Neutrophils Absolute Auto 4.2 K/mm3 (1.3-6.7); Neutrophils Percent Auto 66.1 % (45.5-73.1); Platelet Count Result 267 k/mm3 (150-375); Red Cell Distribution Width 15.8 % (11.5-14.5); White Blood Count 6.3 K/mm3 (4.5-10.0)
[2023-09-07 08:30] LABS: Anion Gap 4 mmol/L (8-16); Blood Urea Nitrogen 57 mg/dL (7-17); Calcium 8.9 mg/dL (8.4-10.2); Carbon Dioxide 33 mmol/L (22-30); Chloride 101 mmol/L (98-107); Estimated Glomerular Filt Rate 48; Glucose 201 mg/dL (65-110); Magnesium 2.6 mg/dL (1.6-2.3); Potassium 6.1 mmol/L (3.4-5.0); Sodium 138 mmol/L (137-145)
--- NOTE | 2023-09-07 08:43 | ECG_ITS ---
Measurements Intervals [place] Rate: 85 P: 46 OR: 182 QRS: 38 QRSD: 92 T: 25 QT: 368 QTc: 438 Interpretive Statements SINUS RHYTHM LOW QRS VOLTAGE IN PRECORDIAL LEADS CANNOT RULE OUT SEPTAL INFARCT, AGE INDETERMINATE BASELINE ARTIFACT- II, III, AVR, AVF, V3-V4 ABNORMAL ECG COMPARED TO ECG 09/06/2023 16:06:18 NO SIGNIFICANT CHANGES Electronically Signed On 09-07-2023 11:56:14 [employer] WORK[employer] by Kalin Castorena D.O.
[2023-09-07 08:45] LABS: Procalcitonin 0.1 ng/mL
--- NOTE | 2023-09-07 09:00 | PM.IMPN ---
Progress Note: A&P Assessment and Plan (1) Cellulitis: Code(s): L03.90 - Cellulitis, unspecified Status: Acute (2) Acute hyperkalemia: Code(s): E87.5 - Hyperkalemia Status: Acute (3) UTI (urinary tract infection): Qualifiers: Encounter type: initial encounter Indwelling urinary catheter type: indwelling urethral catheter Urinary tract infection type: catheter-associated UTI Qualified Code(s): T83.511A - Infection and inflammatory reaction due to indwelling urethral catheter, initial encounter; N39.0 - Urinary tract infection, site not specified Code(s): N39.0 - Urinary tract infection, site not specified Status: Acute Plan A pleasant 47-year-old female resident of shelter with past medical history obesity, neurocognitive disorder, chronic indwelling Jenkins, seizure disorder, hypertension, hyperlipidemia, insulin-dependent diabetes mellitus, history of DVT on warfarin, COPD, EAMON, heart failure preserved ejection fraction, depression, eczema, recurrent UTI and intertrigo presents with complaint of rash of the abdomen. Patient admitted on 09/07 for UTI, cellulitis, and hyperkalemia. #Acute on chronic hyperkalemia -she has had hyperkalemia for a while now. Renin 0.58 aldosterone 2. Discontinue her metoprolol as this can cause hyperkalemia and we will see if this helps. -presented with potassium of 5.8. On repeat on 09/07 in the a.m. and 6.1. Giving all therapies to reduce potassium and will recheck afterwards. #Complicated UTI with history of recurrent UTIs -previously she grew Enterobacter cloacae complex and it was apparently successfully treated with ciprofloxacin. On 08/29 start ciprofloxacin 400 mg IV b.i.d. -follow-up this admission's culture #Chronic indwelling Jenkins catheter -replace Jenkins #Cellulitis of the abdominal wall/intertrigo -was discharged on tolnaftate last time. Patient reports she was not getting this. -start miconazole cream twice daily. Continue vancomycin and ciprofloxacin for now as well. -consult Wound Care. Monitor for improvement and adjust as necessary. -pending blood cultures #Insulin-dependent diabetes mellitus -continue home dose mealtime and long-acting insulin. Accu-Cheks a.c. HS and sliding scale. #History of DVT on warfarin -continue warfarin and INR checks #COPD -no acute issues #EAMON -CPAP at night #Heart failure preserved ejection fraction -she does have 2+ pitting edema of the bilateral lower extremities but she is essentially bedbound. This seems to be her usual -compensated, continue to monitor -resume home dose furosemide FEN: Saline lock IV GI prophylaxis: Continue home Pepcid DVT prophylaxis: Continue home dose warfarin Lines: Peripheral IV Code Status: Full code Dispo: Stable Subjective Date/time seen: 09/07/23 09:00 Interval history: No acute overnight events. Patient's concern is that she has the rash under her abdominal folds. She does report pain at the bladder as well. She thinks she has a UTI and cellulitis infection. Denies chest pain weakness shortness of breath or palpitations Review of Systems Review of Systems: All systems reviewed & are unremarkable except as noted in HPI and below (Subjective) Exam Const: General: comfortable and no acute distress Other: A and O x3 Eyes: Pupils: Equal, round and reactive pupils present Neck: Neck: supple Other: No thrush Resp: Effort & Inspection: normal respiratory effort Auscultation: clear to auscultation bilaterally Cardio: Rate: regular rate Rhythm: regular rhythm Heart sounds: no gallops, no murmurs and no rubs GI: GI Palp: No Tenderness to palpation present (GI) Other: Hyperpigmentation, brown and red erythema under the panniculus and inguinal folds Extrem: General: edema (2+ bilateral lower extremity edema) Objective Data Vital Signs Vital Signs: Vital Signs - 24 hr 09/06/23 15:03 09/06/23 16:
[2023-09-07] MEDS: DEXTROSE 50% 25 GM/50 ML SYRINGE IV PUSH ×2 (10:05→13:20)
[2023-09-07] MEDS: FAMOTIDINE 20 MG TABLET PO (10:06)
[2023-09-07] MEDS: DOCUSATE SODIUM 100 MG CAPSULE PO (10:06)
[2023-09-07] MEDS: FERROUS SULFATE 325 MG TABLET DR PO ×2 (10:06→17:32)
[2023-09-07] MEDS: GABAPENTIN 300 MG CAPSULE PO ×3 (10:06→17:32)
[2023-09-07] MEDS: levETIRAcetam 500 MG TABLET PO ×2 (10:06→17:32)
[2023-09-07] MEDS: SODIUM BICARBONATE 8.4% 50 MEQ/50 ML SYRINGE IV PUSH (10:07)
[2023-09-07] MEDS: ALPRAZolam (*CRX) 0.5 MG TABLET PO (10:07)
[2023-09-07] MEDS: SODIUM POLYSTYRENE SULFONONATE 15 GM/60 ML BTL 30 GM PO (10:08)
[2023-09-07] MEDS: SODIUM ZIRCONIUM CYCLOSILICATE 10 GM POWD.PACK PO (10:09)
[2023-09-07] MEDS: ASCORBIC ACID 250 MG TABLET PO (10:09)
[2023-09-07] MEDS: INSULIN HUMAN REGULAR (*BKC) 100 UNITS/ML 10 UNITS IV PUSH ×2 (10:17→13:23)
[2023-09-07] MEDS: CIPROFLOXACIN 400 MG/D5W 200ML 200 ML 200 MG IVPB ×2 (10:36→20:53)
[2023-09-07] MEDS: traMADol HCL (*CRX) 50 MG TABLET PO (10:42)
[2023-09-07] MEDS: CALCIUM GLUC 1,000 MG/NS 50 ML 1,000 MG/50 ML BAG 100 MG IVPB ×2 (11:13→13:27)
[2023-09-07 12:41] LABS: Anion Gap 6 mmol/L (8-16); Blood Urea Nitrogen 52 mg/dL (7-17); Calcium 9.1 mg/dL (8.4-10.2); Carbon Dioxide 33 mmol/L (22-30); Chloride 99 mmol/L (98-107); Estimated Glomerular Filt Rate 59; Glucose 258 mg/dL (65-110); Potassium 6.1 mmol/L (3.4-5.0); Sodium 138 mmol/L (137-145)
[2023-09-07] MEDS: VANCOMYCIN 1,500 MG/NS 500 ML 1,500 MG/500 ML BAG 250 MG IVPB (13:00)
[2023-09-07] MEDS: FUROSEMIDE INJ 40 MG/4 ML VIAL 20 MG IV PUSH (13:01)
[2023-09-07] MEDS: INSULIN ASPART (*BKC) 100 UNITS/ML 7 UNITS SUB-Q ×2 (13:21→17:33)
[2023-09-07] MEDS: ACETAMINOPHEN 325 MG TABLET 650 MG PO (15:27)
[2023-09-07 16:30] LABS: Anion Gap 4 mmol/L (8-16); Blood Urea Nitrogen 45 mg/dL (7-17); Calcium 9.1 mg/dL (8.4-10.2); Carbon Dioxide 36 mmol/L (22-30); Chloride 102 mmol/L (98-107); Estimated Glomerular Filt Rate 53; Glucose 154 mg/dL (65-110); Potassium 5.5 mmol/L (3.4-5.0); Sodium 142 mmol/L (137-145)
[2023-09-07] MEDS: INSULIN GLARGINE (*BKC) 100 UNITS/ML 10 UNITS SUB-Q (17:32)
--- NOTE | 2023-09-07 17:44 | PCRCNOTE ---
CPAP order in, Pt. non-compliant with CPAP @ home.
[2023-09-07 20:49] LABS: Anion Gap 2 mmol/L (8-16); Blood Urea Nitrogen 48 mg/dL (7-17); Calcium 8.8 mg/dL (8.4-10.2); Carbon Dioxide 35 mmol/L (22-30); Chloride 101 mmol/L (98-107); Estimated Glomerular Filt Rate 53; Glucose 126 mg/dL (65-110); Magnesium 2.3 mg/dL (1.6-2.3); Potassium 5.8 mmol/L (3.4-5.0); Sodium 138 mmol/L (137-145)
[2023-09-07] MEDS: NORTRIPTYLINE HCL 25 MG CAPSULE 50 MG PO (21:00)
[2023-09-07] MEDS: traZODone HCL 50 MG TABLET 100 MG PO (21:00)
[2023-09-07] MEDS: WARFARIN (*PBKC) 5 MG TABLET PO (21:01)
[2023-09-08] VITALS (18 sets, daily range): BP systolic 121–141; BP diastolic 49–77; PULSE 82–105; RESP 14–18; TEMP 36.4–37.1; O2SAT 97–99
[2023-09-08] MEDS: VANCOMYCIN 1,500 MG/NS 500 ML 1,500 MG/500 ML BAG 250 MG IVPB (05:02)
[2023-09-08 05:18] LABS: Basophils Percent Auto 0.5 % (0.2-1.2); Eosinophils Absolute Auto 0.4 K/mm3 (0-0.3); Eosinophils Percent Auto 6.6 % (0-4.4); Hematocrit 27.1 % (37.0-47.0); Hemoglobin 7.8 g/dL (12.0-15.0); Immature Granulocyte Absolute 0.03 K/mm3 (0.00-0.031); Immature Granulocyte Percent A 0.5 % (0-0.5); Lymphocytes Absolute Auto 1.31 K/mm3 (0.9-3.2); Lymphocytes Percent Auto 22.8 % (18.3-44.2); Mean Corpuscular HGB Conc 28.8 g/dl (32-36); Mean Corpuscular Hemoglobin 27.3 pg (26-34); Mean Corpuscular Volume 94.8 fl (80-100); Mean Platelet Volume 9.3 fl (7.4-10.4); Monocytes Absolute Auto 0.6 K/mm3 (0.1-0.6); Monocytes Percent Auto 9.9 % (2.6-8.5); Neutrophils Absolute Auto 3.4 K/mm3 (1.3-6.7); Neutrophils Percent Auto 59.7 % (45.5-73.1); Platelet Count Result 233 k/mm3 (150-375); Red Blood Count 2.86 M/mm3 (4.2-5.4); Red Cell Distribution Width 15.6 % (11.5-14.5); White Blood Count 5.8 K/mm3 (4.5-10.0)
[2023-09-08 05:26] LABS: Anion Gap 4 mmol/L (8-16); Blood Urea Nitrogen 49 mg/dL (7-17); Calcium 8.8 mg/dL (8.4-10.2); Carbon Dioxide 34 mmol/L (22-30); Chloride 98 mmol/L (98-107); Estimated Glomerular Filt Rate 59; Glucose 202 mg/dL (65-110); Magnesium 2.3 mg/dL (1.6-2.3); Potassium 5.9 mmol/L (3.4-5.0); Sodium 136 mmol/L (137-145)
[2023-09-08 05:49] LABS: Anisocytosis 1+ (NORMAL); Hypochromasia 2+ (NORMAL); Platelet Estimate Adequate (Adequate); Schistocytes None Seen (NORMAL)
[2023-09-08] MEDS: DOCUSATE SODIUM 100 MG CAPSULE PO (09:12)
[2023-09-08] MEDS: ASCORBIC ACID 250 MG TABLET PO (09:12)
[2023-09-08] MEDS: FERROUS SULFATE 325 MG TABLET DR PO ×2 (09:13→18:00)
[2023-09-08] MEDS: levETIRAcetam 500 MG TABLET PO ×2 (09:13→18:00)
[2023-09-08] MEDS: GABAPENTIN 300 MG CAPSULE PO ×3 (09:13→18:00)
[2023-09-08] MEDS: FAMOTIDINE 20 MG TABLET PO (09:13)
[2023-09-08] MEDS: INSULIN ASPART (*BKC) 100 UNITS/ML 7 UNITS SUB-Q ×3 (09:41→18:00)
[2023-09-08] MEDS: traMADol HCL (*CRX) 50 MG TABLET PO ×2 (09:44→15:26)
--- NOTE | 2023-09-08 10:09 | PM.IMPN ---
Progress Note: A&P Assessment and Plan (1) Cellulitis: Code(s): L03.90 - Cellulitis, unspecified Status: Acute (2) Acute hyperkalemia: Code(s): E87.5 - Hyperkalemia Status: Acute (3) UTI (urinary tract infection): Qualifiers: Encounter type: initial encounter Indwelling urinary catheter type: indwelling urethral catheter Urinary tract infection type: catheter-associated UTI Qualified Code(s): T83.511A - Infection and inflammatory reaction due to indwelling urethral catheter, initial encounter; N39.0 - Urinary tract infection, site not specified Code(s): N39.0 - Urinary tract infection, site not specified Status: Acute Plan A pleasant 47-year-old female resident of [facility] with past medical history obesity, neurocognitive disorder, chronic indwelling Jenkins, seizure disorder, hypertension, hyperlipidemia, insulin-dependent diabetes mellitus, history of DVT on warfarin, COPD, EAMON, heart failure preserved ejection fraction, depression, eczema, recurrent UTI and intertrigo presents with complaint of rash of the abdomen. Patient admitted on 09/07 for UTI, cellulitis, and hyperkalemia. #Acute on chronic hyperkalemia -she has had hyperkalemia for a while now. Renin 0.58 aldosterone 2. Discontinue her metoprolol as this can cause hyperkalemia and we will see if this helps. -presented with potassium of 5.8. On repeat on 09/07 in the a.m. and 6.1. Giving all therapies to reduce potassium and will recheck afterwards. On 09/08 this is persistent. Potassium is 5.9. She will receive another round of calcium gluconate, furosemide, glaucoma, insulin and dextrose. Check BMP in 4 hours #Complicated UTI with history of recurrent UTIs -previously she grew Enterobacter cloacae complex and it was apparently successfully treated with ciprofloxacin. On 09/07 start ciprofloxacin 400 mg IV b.i.d. -follow-up this admission's culture On 09/08 her urine culture is negative. Denies any pain. Likely this was colonization due to her indwelling Jenkins. It has been replaced. Discontinue ciprofloxacin #Chronic indwelling Jenkins catheter -replaced #Cellulitis of the abdominal wall/intertrigo -was discharged on tolnaftate last time. Patient reports she was not getting this. -start miconazole cream twice daily. Continue vancomycin and ciprofloxacin for now as well. -consult Wound Care. Monitor for improvement and adjust as necessary. -pending blood cultures On 09/08 her blood cultures are so far negative. Abdominal wall is much improved and cellulitis is in fact not suspect. Her macerations and erythema and hyperpigmentation are largely due to intertrigo and obesity. Discontinue vancomycin #Insulin-dependent diabetes mellitus -continue home dose mealtime and long-acting insulin. Accu-Cheks a.c. HS and sliding scale. #History of DVT on warfarin -continue warfarin and INR checks #COPD -no acute issues #EAMON -CPAP at night #Heart failure preserved ejection fraction -she does have 2+ pitting edema of the bilateral lower extremities but she is essentially bedbound. This seems to be her usual -compensated, continue to monitor -resume home dose furosemide FEN: Saline lock IV, diabetic heart healthy diet GI prophylaxis: Continue home Pepcid DVT prophylaxis: Continue home dose warfarin Lines: Peripheral IV Code Status: Full code Dispo: Stable. Monitor potassium. Can be discharged back to her permanent residence at [facility]term when normalized. Subjective Date/time seen: 09/08/23 10:09 Interval history: No acute overnight events. And appears the most alert I have ever seen her. She denies any complaints although reports she needs to stay another day to after wounds taking care of. She denies palpitations or weakness. Denies shortness of breath chest pain or abdominal pain or bladder pain. Review of Systems Review of Systems: All systems reviewed & are unremarkable except as noted
[2023-09-08] MEDS: SODIUM ZIRCONIUM CYCLOSILICATE 10 GM POWD.PACK PO ×2 (10:58→21:39)
[2023-09-08] MEDS: SODIUM POLYSTYRENE SULFONONATE 15 GM/60 ML BTL 30 GM PO (11:06)
[2023-09-08] MEDS: DEXTROSE 50% 25 GM/50 ML SYRINGE IV PUSH (11:49)
[2023-09-08] MEDS: FUROSEMIDE INJ 40 MG/4 ML VIAL 20 MG IV PUSH (11:49)
[2023-09-08] MEDS: INSULIN HUMAN REGULAR (*BKC) 100 UNITS/ML 10 UNITS IV PUSH (11:54)
[2023-09-08] MEDS: CALCIUM GLUC 1,000 MG/NS 50 ML 1,000 MG/50 ML BAG 100 MG IVPB (11:55)
[2023-09-08 12:11] LABS: Glucose Point of Care 339 mg/dl (65-105)
[2023-09-08] MEDS: ALPRAZolam (*CRX) 0.5 MG TABLET PO ×2 (12:37→20:25)
--- NOTE | 2023-09-08 15:48 | PC.NURSE ---
lab unable to draw 1500 bmp -phelb attempted couple of times- stated new staff will be here at 6pm - Dr. Hendricks informed
[2023-09-08 17:06] LABS: Glucose Point of Care 190 mg/dl (65-105)
[2023-09-08 19:59] LABS: Anion Gap 1 mmol/L (8-16); Blood Urea Nitrogen 47 mg/dL (7-17); Calcium 8.7 mg/dL (8.4-10.2); Carbon Dioxide 36 mmol/L (22-30); Chloride 99 mmol/L (98-107); Estimated Glomerular Filt Rate 59; Glucose 167 mg/dL (65-110); Potassium 6.1 mmol/L (3.4-5.0); Sodium 136 mmol/L (137-145)
--- NOTE | 2023-09-08 20:01 | PC.NURSE ---
Called [facility] at 1957 to let them know pt's blood pressure is soft, 90/50. Pt was started on metoprolol and entresto this admit.
[2023-09-08 20:15] LABS: Glucose Point of Care 157 mg/dl (65-105)
[2023-09-08] MEDS: WARFARIN (*PBKC) 5 MG TABLET PO (20:15)
[2023-09-08] MEDS: traZODone HCL 50 MG TABLET 100 MG PO (20:15)
[2023-09-08] MEDS: NORTRIPTYLINE HCL 25 MG CAPSULE 50 MG PO (20:15)
[2023-09-08] MEDS: INSULIN GLARGINE (*BKC) 100 UNITS/ML 10 UNITS SUB-Q (20:17)
--- NOTE | 2023-09-08 20:43 | PC.NURSE ---
2100 Medications given by this RN Administered under incorrect login.
[2023-09-09] VITALS (16 sets, daily range): BP systolic 98–128; BP diastolic 45–72; PULSE 85–102; RESP 16–21; TEMP 36.2–36.8; O2SAT 95–99
[2023-09-09 02:35] LABS: Anion Gap 3 mmol/L (8-16); Blood Urea Nitrogen 49 mg/dL (7-17); Calcium 8.4 mg/dL (8.4-10.2); Carbon Dioxide 36 mmol/L (22-30); Chloride 98 mmol/L (98-107); Estimated Glomerular Filt Rate 53; Glucose 165 mg/dL (65-110); Potassium 5.7 mmol/L (3.4-5.0); Sodium 137 mmol/L (137-145)
[2023-09-09 04:57] LABS: Basophils Absolute Auto 0.1 K/mm3 (0.0-0.1); Basophils Percent Auto 0.8 % (0.2-1.2); Eosinophils Absolute Auto 0.4 K/mm3 (0-0.3); Eosinophils Percent Auto 5.7 % (0-4.4); Hematocrit 25.3 % (37.0-47.0); Hemoglobin 7.3 g/dL (12.0-15.0); Immature Granulocyte Absolute 0.04 K/mm3 (0.00-0.031); Immature Granulocyte Percent A 0.6 % (0-0.5); Lymphocytes Absolute Auto 1.82 K/mm3 (0.9-3.2); Lymphocytes Percent Auto 27.9 % (18.3-44.2); Mean Corpuscular HGB Conc 28.9 g/dl (32-36); Mean Corpuscular Volume 93.7 fl (80-100); Mean Platelet Volume 9.2 fl (7.4-10.4); Monocytes Absolute Auto 0.6 K/mm3 (0.1-0.6); Monocytes Percent Auto 9.8 % (2.6-8.5); Neutrophils Absolute Auto 3.6 K/mm3 (1.3-6.7); Neutrophils Percent Auto 55.2 % (45.5-73.1); Platelet Count Result 236 k/mm3 (150-375); White Blood Count 6.5 K/mm3 (4.5-10.0)
[2023-09-09 05:09] LABS: Anion Gap 3 mmol/L (8-16); Blood Urea Nitrogen 50 mg/dL (7-17); Calcium 8.5 mg/dL (8.4-10.2); Carbon Dioxide 37 mmol/L (22-30); Chloride 97 mmol/L (98-107); Estimated Glomerular Filt Rate 48; Glucose 164 mg/dL (65-110); Magnesium 2.1 mg/dL (1.6-2.3); Potassium 5.6 mmol/L (3.4-5.0); Sodium 137 mmol/L (137-145)
[2023-09-09 05:11] LABS: INR 1.1; Prothrombin Time 15.2 Seconds (11.1-14.7)
[2023-09-09 05:36] LABS: Anisocytosis 1+ (NORMAL); Hypochromasia 1+ (NORMAL); Platelet Estimate Adequate (Adequate)
[2023-09-09 05:37] LABS: Ovalocytes 1+ (NORMAL); Schistocytes None Seen (NORMAL)
[2023-09-09] MEDS: DOCUSATE SODIUM 100 MG CAPSULE PO (08:23)
[2023-09-09] MEDS: levETIRAcetam 500 MG TABLET PO ×2 (08:23→16:51)
[2023-09-09] MEDS: FERROUS SULFATE 325 MG TABLET DR PO ×2 (08:23→16:52)
[2023-09-09] MEDS: FAMOTIDINE 20 MG TABLET PO (08:24)
[2023-09-09] MEDS: ASCORBIC ACID 250 MG TABLET PO (08:24)
[2023-09-09] MEDS: GABAPENTIN 300 MG CAPSULE PO ×3 (08:24→16:52)
[2023-09-09] MEDS: INSULIN ASPART (*BKC) 100 UNITS/ML 7 UNITS SUB-Q ×3 (08:27→16:53)
[2023-09-09] MEDS: DEXTROSE 50% 25 GM/50 ML SYRINGE IV PUSH (09:36)
[2023-09-09] MEDS: INSULIN HUMAN REGULAR (*BKC) 100 UNITS/ML 10 UNITS IV PUSH (09:37)
[2023-09-09] MEDS: FUROSEMIDE 40 MG TABLET PO ×2 (09:37→16:52)
[2023-09-09] MEDS: traMADol HCL (*CRX) 50 MG TABLET PO ×3 (09:37→21:48)
--- NOTE | 2023-09-09 09:38 | PM.IMPN ---
Progress Note: A&P Assessment and Plan (1) Cellulitis: Code(s): L03.90 - Cellulitis, unspecified Status: Acute (2) Acute hyperkalemia: Code(s): E87.5 - Hyperkalemia Status: Acute (3) UTI (urinary tract infection): Qualifiers: Encounter type: initial encounter Indwelling urinary catheter type: indwelling urethral catheter Urinary tract infection type: catheter-associated UTI Qualified Code(s): T83.511A - Infection and inflammatory reaction due to indwelling urethral catheter, initial encounter; N39.0 - Urinary tract infection, site not specified Code(s): N39.0 - Urinary tract infection, site not specified Status: Acute Plan A pleasant 47-year-old female resident of long-term with past medical history obesity, neurocognitive disorder, chronic indwelling Jenkins, seizure disorder, hypertension, iron deficiency anemia, hyperlipidemia, insulin-dependent diabetes mellitus, history of DVT on warfarin, COPD, EAMON, heart failure preserved ejection fraction, depression, eczema, recurrent UTI and intertrigo presents with complaint of rash of the abdomen. Patient admitted on 09/07 for UTI, cellulitis, and hyperkalemia. #Acute on chronic hyperkalemia -she has had hyperkalemia for a while now. Renin 0.58 aldosterone 2. Discontinue her metoprolol as this can cause hyperkalemia and we will see if this helps. -presented with potassium of 5.8. On repeat on 09/07 in the a.m. and 6.1. Giving all therapies to reduce potassium and will recheck afterwards. On 09/08 this is persistent. Potassium is 5.7. She will receive another round of calcium gluconate, furosemide, glaucoma, insulin and dextrose. Check BMP in 4 hours On 09/09 her potassium is 5.6. This is a chronic issue for her. Will increase her Lokelma to 10 mg p.o. b.i.d.. Giving another round of dextrose and insulin. Her furosemide has also been restarted. #Complicated UTI with history of recurrent UTIs -previously she grew Enterobacter cloacae complex and it was apparently successfully treated with ciprofloxacin. On 09/07 start ciprofloxacin 400 mg IV b.i.d. -follow-up this admission's culture On 09/08 her urine culture is negative. Denies any pain. Likely this was colonization due to her indwelling Jenkins. It has been replaced. Discontinue ciprofloxacin #Chronic indwelling Jenkins catheter -replaced #Cellulitis of the abdominal wall/intertrigo -was discharged on tolnaftate last time. Patient reports she was not getting this. -start miconazole cream twice daily. Continue vancomycin and ciprofloxacin for now as well. -consult Wound Care. Monitor for improvement and adjust as necessary. -pending blood cultures On 09/08 her blood cultures are so far negative. Abdominal wall is much improved and cellulitis is in fact not suspect. Her macerations and erythema and hyperpigmentation are largely due to intertrigo and obesity. Discontinue vancomycin #Insulin-dependent diabetes mellitus -continue home dose mealtime and long-acting insulin. Accu-Cheks a.c. HS and sliding scale. #History of DVT on warfarin -continue warfarin and INR checks -subtherapeutic INR. Continue warfarin at 5 mg daily and added additional 3 mg 1 time dose on 09/09. -she has chronic iron deficiency anemia and her hemoglobin has trended down a bit on 09/09 but her baseline is low in the 8's. Patient wants to continue with warfarin for clot prophylaxis. Recheck hemoglobin in the morning #COPD -no acute issues #EAMON -CPAP at night #Heart failure preserved ejection fraction -she does have 2+ pitting edema of the bilateral lower extremities but she is essentially bedbound. This seems to be her usual -compensated, continue to monitor -resumed home dose furosemide FEN: Saline lock IV, diabetic heart healthy diet GI prophylaxis: Continue home Pepcid DVT prophylaxis: Continue home dose warfarin Lines: Peripheral IV Code Status: Full code Dispo: Stable. Active issues i
[2023-09-09] MEDS: WARFARIN (*PBKC) 3 MG TABLET PO (09:57)
[2023-09-09] MEDS: SODIUM ZIRCONIUM CYCLOSILICATE 10 GM POWD.PACK PO ×2 (10:49→18:12)
[2023-09-09 11:10] LABS: Anion Gap 5 mmol/L (8-16); Blood Urea Nitrogen 55 mg/dL (7-17); Calcium 8.4 mg/dL (8.4-10.2); Carbon Dioxide 30 mmol/L (22-30); Chloride 100 mmol/L (98-107); Estimated Glomerular Filt Rate 53; Glucose 225 mg/dL (65-110); Potassium 5.1 mmol/L (3.4-5.0); Sodium 135 mmol/L (137-145)
[2023-09-09 12:00] LABS: Glucose Point of Care 184 mg/dl (65-105)
[2023-09-09] MEDS: traZODone HCL 50 MG TABLET 100 MG PO (21:46)
[2023-09-09] MEDS: NORTRIPTYLINE HCL 25 MG CAPSULE 50 MG PO (21:46)
[2023-09-09] MEDS: WARFARIN (*PBKC) 5 MG TABLET PO (21:47)
[2023-09-09] MEDS: ALPRAZolam (*CRX) 0.5 MG TABLET PO (21:47)
[2023-09-09] MEDS: INSULIN GLARGINE (*BKC) 100 UNITS/ML 10 UNITS SUB-Q (22:02)
[2023-09-10] VITALS (8 sets, daily range): BP systolic 128–138; BP diastolic 56–73; PULSE 93–107; RESP 14–19; TEMP 36.1–36.6; O2SAT 91–96
[2023-09-10 05:37] LABS: Basophils Percent Auto 0.5 % (0.2-1.2); Eosinophils Absolute Auto 0.4 K/mm3 (0-0.3); Eosinophils Percent Auto 5.8 % (0-4.4); Hematocrit 26.7 % (37.0-47.0); Hemoglobin 7.9 g/dL (12.0-15.0); Immature Granulocyte Absolute 0.08 K/mm3 (0.00-0.031); Immature Granulocyte Percent A 1.1 % (0-0.5); Lymphocytes Absolute Auto 1.75 K/mm3 (0.9-3.2); Lymphocytes Percent Auto 23.7 % (18.3-44.2); Mean Corpuscular HGB Conc 29.6 g/dl (32-36); Mean Corpuscular Hemoglobin 27.4 pg (26-34); Mean Corpuscular Volume 92.7 fl (80-100); Mean Platelet Volume 9.1 fl (7.4-10.4); Monocytes Absolute Auto 0.6 K/mm3 (0.1-0.6); Monocytes Percent Auto 8.7 % (2.6-8.5); Neutrophils Absolute Auto 4.4 K/mm3 (1.3-6.7); Neutrophils Percent Auto 60.2 % (45.5-73.1); Platelet Count Result 236 k/mm3 (150-375); Red Blood Count 2.88 M/mm3 (4.2-5.4); White Blood Count 7.4 K/mm3 (4.5-10.0)
[2023-09-10 05:46] LABS: INR 1.1
[2023-09-10 05:57] LABS: Alanine Aminotransferase 18 U/L (6-35); Albumin Level 3.2 g/dL (3.5-5.1); Alkaline Phosphatase 123 U/L (38-126); Anion Gap 5 mmol/L (8-16); Aspartate Amino Transferase 27 U/L (14-36); Bilirubin,Total 0.4 mg/dL (0.2-1.3); Blood Urea Nitrogen 62 mg/dL (7-17); Calcium 8.8 mg/dL (8.4-10.2); Carbon Dioxide 34 mmol/L (22-30); Chloride 98 mmol/L (98-107); Estimated Glomerular Filt Rate 44; Glucose 158 mg/dL (65-110); Magnesium 2.1 mg/dL (1.6-2.3); Potassium 5.2 mmol/L (3.4-5.0); Sodium 137 mmol/L (137-145)
[2023-09-10 06:48] LABS: Anisocytosis 1+ (NORMAL); Hypochromasia 1+ (NORMAL); Platelet Estimate Adequate (Adequate); Schistocytes None Seen (NORMAL)
[2023-09-10 08:05] LABS: Glucose Point of Care 161 mg/dl (65-105)
[2023-09-10] MEDS: INSULIN ASPART (*BKC) 100 UNITS/ML 7 UNITS SUB-Q ×3 (08:55→17:58)
[2023-09-10] MEDS: GABAPENTIN 300 MG CAPSULE PO ×3 (09:00→17:59)
[2023-09-10] MEDS: FERROUS SULFATE 325 MG TABLET DR PO ×2 (09:00→17:58)
[2023-09-10] MEDS: levETIRAcetam 500 MG TABLET PO ×2 (09:01→17:58)
[2023-09-10] MEDS: FAMOTIDINE 20 MG TABLET PO (09:01)
[2023-09-10] MEDS: FUROSEMIDE 40 MG TABLET PO (09:02)
[2023-09-10] MEDS: ASCORBIC ACID 250 MG TABLET PO (09:02)
[2023-09-10] MEDS: DOCUSATE SODIUM 100 MG CAPSULE PO (09:02)
[2023-09-10] MEDS: traMADol HCL (*CRX) 50 MG TABLET PO ×2 (09:13→21:33)
[2023-09-10] MEDS: ALPRAZolam (*CRX) 0.5 MG TABLET PO (09:13)
[2023-09-10] MEDS: SODIUM ZIRCONIUM CYCLOSILICATE 10 GM POWD.PACK PO ×2 (10:42→17:59)
--- NOTE | 2023-09-10 10:56 | PM.IMPN ---
Progress Note: A&P Assessment and Plan (1) Cellulitis: Code(s): L03.90 - Cellulitis, unspecified Status: Acute (2) Acute hyperkalemia: Code(s): E87.5 - Hyperkalemia Status: Acute (3) UTI (urinary tract infection): Qualifiers: Encounter type: initial encounter Indwelling urinary catheter type: indwelling urethral catheter Urinary tract infection type: catheter-associated UTI Qualified Code(s): T83.511A - Infection and inflammatory reaction due to indwelling urethral catheter, initial encounter; N39.0 - Urinary tract infection, site not specified Code(s): N39.0 - Urinary tract infection, site not specified Status: Acute Plan A pleasant 47-year-old female resident of longterm with past medical history obesity, neurocognitive disorder, chronic indwelling Jenkins, seizure disorder, hypertension, iron deficiency anemia, hyperlipidemia, insulin-dependent diabetes mellitus, history of DVT on warfarin, COPD, EAMON, heart failure preserved ejection fraction, depression, eczema, recurrent UTI and intertrigo presents with complaint of rash of the abdomen. Patient admitted on 09/07 for UTI, cellulitis, and hyperkalemia. #Acute on chronic hyperkalemia -she has had hyperkalemia for a while now. Renin 0.58 aldosterone 2. Discontinue her metoprolol as this can cause hyperkalemia and we will see if this helps. -presented with potassium of 5.8. On repeat on 09/07 in the a.m. and 6.1. Giving all therapies to reduce potassium and will recheck afterwards. On 09/08 this is persistent. Potassium is 5.7. She will receive another round of calcium gluconate, furosemide, glaucoma, insulin and dextrose. Check BMP in 4 hours On 09/09 her potassium is 5.6. This is a chronic issue for her. Will increase her Lokelma to 10 mg p.o. b.i.d.. Giving another round of dextrose and insulin. Her furosemide has also been restarted. 09/10 K5.2 c/w Lokelma to 10 mg p.o. b.i.d. hold Lasix, creatinine is bumping up #Complicated UTI with history of recurrent UTIs -previously she grew Enterobacter cloacae complex and it was apparently successfully treated with ciprofloxacin. On 09/07 start ciprofloxacin 400 mg IV b.i.d. -follow-up this admission's culture On 09/08 her urine culture is negative. Denies any pain. Likely this was colonization due to her indwelling Jenkins. It has been replaced. Discontinue ciprofloxacin 09/10, urine culture grows mix of Gentle krishna, blood culture negative #Chronic indwelling Jenkins catheter -replaced #Cellulitis of the abdominal wall/intertrigo -was discharged on tolnaftate last time. Patient reports she was not getting this. -start miconazole cream twice daily. Continue vancomycin and ciprofloxacin for now as well. -consult Wound Care. Monitor for improvement and adjust as necessary. -pending blood cultures: No grows 09/10 high Received vancomycin and Cipro add tolnaftate topical bilaterally On 09/08 her blood cultures are so far negative. Abdominal wall is much improved and cellulitis is in fact not suspect. Her macerations and erythema and hyperpigmentation are largely due to intertrigo and obesity. Discontinue vancomycin #Insulin-dependent diabetes mellitus -continue home dose mealtime and long-acting insulin. Accu-Cheks a.c. HS and sliding scale. #History of DVT on warfarin -continue warfarin and INR checks -subtherapeutic INR. Continue warfarin at 5 mg daily and added additional 3 mg 1 time dose on 09/09. -she has chronic iron deficiency anemia and her hemoglobin has trended down a bit on 09/09 but her baseline is low in the 8's. Patient wants to continue with warfarin for clot prophylaxis. Recheck hemoglobin in the morning #COPD -no acute issues #EAMON -CPAP at night #Heart failure preserved ejection fraction -she does have 2+ pitting edema of the bilateral lower extremities but she is essentially bedbound. This seems to be her usual -compensated, continue to monitor -res
[2023-09-10 11:32] LABS: Glucose Point of Care 270 mg/dl (65-105)
--- NOTE | 2023-09-10 12:47 | P.CDI_ITS ---
CDI Query Clarification Request Please clarify if there is a cause and effect relationship between Diabetes mellitus and cellulitis, if known. * There is a relationship between Diabetes mellitus and cellulitis. * There is not a relationship between Diabetes mellitus and cellulitis. * Unknown if there is a relationship between Diabetes mellitus and cellulitis. * Other/ Unspecified <Zakiya Erwin RN - Last Filed: 09/10/23 12:52> Clarified Diagnosis Clarified Diagnosis: There is a relationship between Diabetes mellitus and cellulitis. <Yoseph Shah MD - Last Filed: 09/11/23 07:18>
--- NOTE | 2023-09-10 12:47 | WPDCDIQUERY2 ---
CDI Query Clarification Request Please clarify if there is a cause and effect relationship between Diabetes mellitus and cellulitis, if known. There is a relationship between Diabetes mellitus and cellulitis. There is not a relationship between Diabetes mellitus and cellulitis. Unknown if there is a relationship between Diabetes mellitus and cellulitis. Other/ Unspecified <Zakiya Erwin RN - Last Filed: 09/10/23 12:52> Clarified Diagnosis Clarified Diagnosis: There is a relationship between Diabetes mellitus and cellulitis. <Yoseph Shah MD - Last Filed: 09/11/23 07:18>
--- NOTE | 2023-09-10 14:15 | PC.NURSE ---
On 09/10/23, the student, [ Jeanie Tavera], provided care and completed Cherry documentation on this patient. I have reviewed the student's documentation and agree with the findings.
[2023-09-10 16:28] LABS: Glucose Point of Care 198 mg/dl (65-105)
[2023-09-10 20:05] LABS: Glucose Point of Care 169 mg/dl (65-105)
[2023-09-10] MEDS: NORTRIPTYLINE HCL 25 MG CAPSULE 50 MG PO (21:24)
[2023-09-10] MEDS: traZODone HCL 50 MG TABLET 100 MG PO (21:24)
[2023-09-10] MEDS: INSULIN GLARGINE (*BKC) 100 UNITS/ML 10 UNITS SUB-Q (21:25)
[2023-09-10] MEDS: WARFARIN (*PBKC) 5 MG TABLET PO (21:25)
[2023-09-10] MEDS: TOLNAFTATE 1% POWDER 45 GM BTL 1 APPLIC TOPICAL (21:25)
[2023-09-11 04:52] LABS: INR 1.2; Prothrombin Time 16.2 Seconds (11.1-14.7)
[2023-09-11 07:42] VITALS: BP 139/66; PULSE 98; RESP 16; TEMP 36.6; O2SAT 95
[2023-09-11] MEDS: TOLNAFTATE 1% POWDER 45 GM BTL 1 APPLIC TOPICAL ×2 (08:25→20:38)
[2023-09-11] MEDS: levETIRAcetam 500 MG TABLET PO ×2 (08:25→17:21)
[2023-09-11] MEDS: FAMOTIDINE 20 MG TABLET PO (08:26)
[2023-09-11] MEDS: FERROUS SULFATE 325 MG TABLET DR PO ×2 (08:26→17:21)
[2023-09-11] MEDS: ASCORBIC ACID 250 MG TABLET PO (08:26)
[2023-09-11] MEDS: DOCUSATE SODIUM 100 MG CAPSULE PO (08:26)
[2023-09-11] MEDS: INSULIN ASPART (*BKC) 100 UNITS/ML 7 UNITS SUB-Q ×3 (08:26→17:22)
[2023-09-11] MEDS: GABAPENTIN 300 MG CAPSULE PO ×3 (08:26→17:21)
[2023-09-11 08:30] LABS: Glucose Point of Care 157 mg/dl (65-105)
--- NOTE | 2023-09-11 09:11 | PM.IMPN ---
Progress Note: A&P Assessment and Plan (1) Cellulitis: Code(s): L03.90 - Cellulitis, unspecified Status: Acute (2) Acute hyperkalemia: Code(s): E87.5 - Hyperkalemia Status: Acute (3) UTI (urinary tract infection): Qualifiers: Encounter type: initial encounter Indwelling urinary catheter type: indwelling urethral catheter Urinary tract infection type: catheter-associated UTI Qualified Code(s): T83.511A - Infection and inflammatory reaction due to indwelling urethral catheter, initial encounter; N39.0 - Urinary tract infection, site not specified Code(s): N39.0 - Urinary tract infection, site not specified Status: Acute Plan A pleasant 47-year-old female resident of [facility] with past medical history obesity, neurocognitive disorder, chronic indwelling Jenkins, seizure disorder, hypertension, iron deficiency anemia, hyperlipidemia, insulin-dependent diabetes mellitus, history of DVT on warfarin, COPD, EAMON, heart failure preserved ejection fraction, depression, eczema, recurrent UTI and intertrigo presents with complaint of rash of the abdomen. Patient admitted on 09/07 for UTI, cellulitis, and hyperkalemia. #Acute on chronic hyperkalemia -she has had hyperkalemia for a while now. Renin 0.58 aldosterone 2. Discontinue her metoprolol as this can cause hyperkalemia and we will see if this helps. -presented with potassium of 5.8. On repeat on 09/07 in the a.m. and 6.1. Giving all therapies to reduce potassium and will recheck afterwards. On 09/08 this is persistent. Potassium is 5.7. She will receive another round of calcium gluconate, furosemide, glaucoma, insulin and dextrose. Check BMP in 4 hours On 09/09 her potassium is 5.6. This is a chronic issue for her. Will increase her Lokelma to 10 mg p.o. b.i.d.. Giving another round of dextrose and insulin. Her furosemide has also been restarted. 09/10 K5.2 c/w Lokelma to 10 mg p.o. b.i.d. hold Lasix, creatinine is bumping up #Complicated UTI with history of recurrent UTIs -previously she grew Enterobacter cloacae complex and it was apparently successfully treated with ciprofloxacin. On 09/07 start ciprofloxacin 400 mg IV b.i.d. -follow-up this admission's culture On 09/08 her urine culture is negative. Denies any pain. Likely this was colonization due to her indwelling Jenkins. It has been replaced. Discontinue ciprofloxacin 09/10, urine culture grows mix of Gentle krishna, blood culture negative #Chronic indwelling Jenkins catheter -replaced #Cellulitis of the abdominal wall/intertrigo -was discharged on tolnaftate last time. Patient reports she was not getting this. -start miconazole cream twice daily. Continue vancomycin and ciprofloxacin for now as well. -consult Wound Care. Monitor for improvement and adjust as necessary. -pending blood cultures: No grows 09/10 high Received vancomycin and Cipro add tolnaftate topical bilaterally On 09/08 her blood cultures are so far negative. Abdominal wall is much improved and cellulitis is in fact not suspect. Her macerations and erythema and hyperpigmentation are largely due to intertrigo and obesity. Discontinue vancomycin #Insulin-dependent diabetes mellitus -continue home dose mealtime and long-acting insulin. Accu-Cheks a.c. HS and sliding scale. #History of DVT on warfarin -continue warfarin and INR checks -subtherapeutic INR. Continue warfarin at 5 mg daily and added additional 3 mg 1 time dose on 09/09. -she has chronic iron deficiency anemia and her hemoglobin has trended down a bit on 09/09 but her baseline is low in the 8's. Patient wants to continue with warfarin for clot prophylaxis. Recheck hemoglobin in the morning Chronic anemia Hemoglobin trending down, 7.1 today, Patient is on blood thinner Follow-up stool guaiac, iron panel #COPD -no acute issues #EAMON -CPAP at night #Heart failure preserved ejection fraction -she does have 2+ pitting edema of the bilate
[2023-09-11 09:31] LABS: Basophils Percent Auto 0.6 % (0.2-1.2); Eosinophils Absolute Auto 0.3 K/mm3 (0-0.3); Eosinophils Percent Auto 4.4 % (0-4.4); Hematocrit 24.1 % (37.0-47.0); Hemoglobin 7.1 g/dL (12.0-15.0); Immature Granulocyte Absolute 0.05 K/mm3 (0.00-0.031); Immature Granulocyte Percent A 0.7 % (0-0.5); Lymphocytes Absolute Auto 1.59 K/mm3 (0.9-3.2); Lymphocytes Percent Auto 21.9 % (18.3-44.2); Mean Corpuscular HGB Conc 29.5 g/dl (32-36); Mean Corpuscular Hemoglobin 27.6 pg (26-34); Mean Corpuscular Volume 93.8 fl (80-100); Mean Platelet Volume 9.5 fl (7.4-10.4); Monocytes Absolute Auto 0.7 K/mm3 (0.1-0.6); Monocytes Percent Auto 8.9 % (2.6-8.5); Neutrophils Absolute Auto 4.6 K/mm3 (1.3-6.7); Neutrophils Percent Auto 63.5 % (45.5-73.1); Platelet Count Result 227 k/mm3 (150-375); Red Blood Count 2.57 M/mm3 (4.2-5.4); Red Cell Distribution Width 16.4 % (11.5-14.5); White Blood Count 7.3 K/mm3 (4.5-10.0)
[2023-09-11 09:47] LABS: Anion Gap 3 mmol/L (8-16); Blood Urea Nitrogen 72 mg/dL (7-17); Calcium 8.6 mg/dL (8.4-10.2); Carbon Dioxide 35 mmol/L (22-30); Chloride 97 mmol/L (98-107); Estimated Glomerular Filt Rate 37; Glucose 146 mg/dL (65-110); Magnesium 2.2 mg/dL (1.6-2.3); Phosphorus 5.4 mg/dL (2.5-4.5); Potassium 5.1 mmol/L (3.4-5.0); Sodium 135 mmol/L (137-145)
[2023-09-11 09:58] LABS: Hypochromasia 1+ (NORMAL); Platelet Estimate Adequate (Adequate)
[2023-09-11 09:59] LABS: Anisocytosis 1+ (NORMAL); Schistocytes None Seen (NORMAL)
[2023-09-11 10:01] LABS: Procalcitonin 0.1 ng/mL
[2023-09-11] MEDS: SODIUM ZIRCONIUM CYCLOSILICATE 10 GM POWD.PACK PO ×2 (10:50→19:25)
[2023-09-11 11:56] LABS: Glucose Point of Care 190 mg/dl (65-105)
--- NOTE | 2023-09-11 14:17 | PC.NURSE ---
This patient, Valerie Nguyen, was transferred to [facility] on 09/11/23 at 1417. Personal belongings sent with patient. Report given to Cony SANTILLAN. Appropriate documentation sent with patient.
[2023-09-11 15:01] VITALS: BP 106/45; PULSE 90; RESP 14; TEMP 36.3; O2SAT 93
[2023-09-11 15:22] LABS: Glucose Point of Care 166 mg/dl (65-105)
[2023-09-11] MEDS: ACETAMINOPHEN 325 MG TABLET 650 MG PO (15:55)
[2023-09-11 16:19] LABS: Immature Reticulocyte Fraction 33.8 % (3.0-15.9); Reticulocyte Percent 3.02 % (0.7-4.3); Reticulocytes Absolute 0.08 M/mm3 (0.02-0.1)
[2023-09-11 16:40] LABS: Iron 40 ug/dL (37-170)
[2023-09-11 16:51] LABS: Percent Iron Saturation 17 % (20-50)
[2023-09-11 19:30] VITALS: BP 115/56; PULSE 86; RESP 16; TEMP 37.1; O2SAT 96
[2023-09-11] MEDS: traMADol HCL (*CRX) 50 MG TABLET PO (20:40)
[2023-09-11] MEDS: WARFARIN (*PBKC) 5 MG TABLET PO (20:40)
[2023-09-11] MEDS: NORTRIPTYLINE HCL 25 MG CAPSULE 50 MG PO (20:41)
[2023-09-11] MEDS: traZODone HCL 50 MG TABLET 100 MG PO (20:41)
[2023-09-11 20:49] LABS: Glucose Point of Care 116 mg/dl (65-105)
--- NOTE | 2023-09-11 23:28 | PC.NURSE ---
PT REFUSING TO DRINK LOKELMA. PT DID TAKE NIGHTTIME ORAL MEDS WITH NO ISSUES. PT IS KNOWN TO REFUSE CARE AND MEDICATIONS.
[2023-09-12 06:01] VITALS: BP 100/50; PULSE 85; RESP 16; TEMP 36.5; O2SAT 94
[2023-09-12 06:09] LABS: Basophils Percent Auto 0.5 % (0.2-1.2); Eosinophils Absolute Auto 0.3 K/mm3 (0-0.3); Eosinophils Percent Auto 4.7 % (0-4.4); Hematocrit 24.5 % (37.0-47.0); Hemoglobin 7.4 g/dL (12.0-15.0); Immature Granulocyte Absolute 0.05 K/mm3 (0.00-0.031); Immature Granulocyte Percent A 0.8 % (0-0.5); Lymphocytes Absolute Auto 1.48 K/mm3 (0.9-3.2); Lymphocytes Percent Auto 24.1 % (18.3-44.2); Mean Corpuscular HGB Conc 30.2 g/dl (32-36); Mean Corpuscular Hemoglobin 27.6 pg (26-34); Mean Corpuscular Volume 91.4 fl (80-100); Mean Platelet Volume 9.2 fl (7.4-10.4); Monocytes Absolute Auto 0.5 K/mm3 (0.1-0.6); Neutrophils Absolute Auto 3.8 K/mm3 (1.3-6.7); Neutrophils Percent Auto 61.9 % (45.5-73.1); Platelet Count Result 231 k/mm3 (150-375); Red Blood Count 2.68 M/mm3 (4.2-5.4); Red Cell Distribution Width 15.9 % (11.5-14.5); White Blood Count 6.1 K/mm3 (4.5-10.0)
[2023-09-12 06:21] LABS: Anion Gap 3 mmol/L (8-16); Blood Urea Nitrogen 64 mg/dL (7-17); Calcium 8.8 mg/dL (8.4-10.2); Carbon Dioxide 33 mmol/L (22-30); Chloride 99 mmol/L (98-107); Estimated Glomerular Filt Rate 53; Glucose 136 mg/dL (65-110); Magnesium 2.3 mg/dL (1.6-2.3); Phosphorus 4.3 mg/dL (2.5-4.5); Potassium 4.2 mmol/L (3.4-5.0); Sodium 135 mmol/L (137-145)
[2023-09-12 07:15] LABS: Procalcitonin 0.1 ng/mL
--- NOTE | 2023-09-12 08:06 | PM.IMPN ---
Progress Note: A&P Assessment and Plan (1) Cellulitis: Code(s): L03.90 - Cellulitis, unspecified Status: Acute (2) Acute hyperkalemia: Code(s): E87.5 - Hyperkalemia Status: Acute (3) UTI (urinary tract infection): Qualifiers: Encounter type: initial encounter Indwelling urinary catheter type: indwelling urethral catheter Urinary tract infection type: catheter-associated UTI Qualified Code(s): T83.511A - Infection and inflammatory reaction due to indwelling urethral catheter, initial encounter; N39.0 - Urinary tract infection, site not specified Code(s): N39.0 - Urinary tract infection, site not specified Status: Acute Plan A pleasant 47-year-old female resident of [facility] with past medical history obesity, neurocognitive disorder, chronic indwelling Jenkins, seizure disorder, hypertension, iron deficiency anemia, hyperlipidemia, insulin-dependent diabetes mellitus, history of DVT on warfarin, COPD, EAMON, heart failure preserved ejection fraction, depression, eczema, recurrent UTI and intertrigo presents with complaint of rash of the abdomen. Patient admitted on 09/07 for UTI, cellulitis, and hyperkalemia. #Acute on chronic hyperkalemia -she has had hyperkalemia for a while now. Renin 0.58 aldosterone 2. Discontinue her metoprolol as this can cause hyperkalemia and we will see if this helps. -presented with potassium of 5.8. On repeat on 09/07 in the a.m. and 6.1. Giving all therapies to reduce potassium and will recheck afterwards. On 09/08 this is persistent. Potassium is 5.7. She will receive another round of calcium gluconate, furosemide, glaucoma, insulin and dextrose. Check BMP in 4 hours On 09/09 her potassium is 5.6. This is a chronic issue for her. Will increase her Lokelma to 10 mg p.o. b.i.d.. Giving another round of dextrose and insulin. Her furosemide has also been restarted. 09/10 K5.2 c/w Lokelma to 10 mg p.o. b.i.d. hold Lasix, creatinine is bumping up 09/12: Potassium 4.2, dc Lokelma #Complicated UTI with history of recurrent UTIs -previously she grew Enterobacter cloacae complex and it was apparently successfully treated with ciprofloxacin. On 09/07 start ciprofloxacin 400 mg IV b.i.d. -follow-up this admission's culture On 09/08 her urine culture is negative. Denies any pain. Likely this was colonization due to her indwelling Jenkins. It has been replaced. Discontinue ciprofloxacin 2, urine culture grows mix of Gentle krishna, blood culture negative 2/ folic catheter is replaced today #Chronic indwelling Jenkins catheter -replaced #Cellulitis of the abdominal wall/intertrigo -was discharged on tolnaftate last time. Patient reports she was not getting this. -start miconazole cream twice daily. Continue vancomycin and ciprofloxacin for now as well. -consult Wound Care. Monitor for improvement and adjust as necessary. -pending blood cultures: No grows 2 high Received vancomycin and Cipro add tolnaftate topical bilaterally On 09/08 her blood cultures are so far negative. Abdominal wall is much improved and cellulitis is in fact not suspect. Her macerations and erythema and hyperpigmentation are largely due to intertrigo and obesity. Discontinue vancomycin 2/3 continue antifungal topically on b/l groins, prolactin level 0.1 #Insulin-dependent diabetes mellitus -continue home dose mealtime and long-acting insulin. Accu-Cheks a.c. HS and sliding scale. #History of DVT on warfarin -continue warfarin and INR checks -subtherapeutic INR. Continue warfarin at 5 mg daily and added additional 3 mg 1 time dose on 09/09. -she has chronic iron deficiency anemia and her hemoglobin has trended down a bit on 09/09 but her baseline is low in the 8's. Patient is noncompliant with medication Educated patient about the importance of complying with medications. patient wants to continue with warfarin for clot prophylaxis. Hemoglobin stable, stool guaiac negative
[2023-09-12] MEDS: ASCORBIC ACID 250 MG TABLET PO (08:15)
[2023-09-12] MEDS: DOCUSATE SODIUM 100 MG CAPSULE PO (08:16)
[2023-09-12] MEDS: FAMOTIDINE 20 MG TABLET PO (08:16)
[2023-09-12] MEDS: FERROUS SULFATE 325 MG TABLET DR PO (08:16)
[2023-09-12] MEDS: levETIRAcetam 500 MG TABLET PO (08:16)
[2023-09-12] MEDS: GABAPENTIN 300 MG CAPSULE PO ×2 (08:16→12:57)
[2023-09-12] MEDS: TOLNAFTATE 1% POWDER 45 GM BTL 1 APPLIC TOPICAL (08:17)
[2023-09-12] MEDS: INSULIN ASPART (*BKC) 100 UNITS/ML 7 UNITS SUB-Q ×2 (08:17→12:57)
[2023-09-12 08:22] LABS: Glucose Point of Care 151 mg/dl (65-105)
[2023-09-12] MEDS: BISACODYL 10 MG SUPPOSITORY RECTAL (11:16)
[2023-09-12 12:50] LABS: IFOB Positive Control Positive; Immunochemical Fecal Occult Bl Negative (N)
[2023-09-12 13:00] LABS: Glucose Point of Care 187 mg/dl (65-105)
--- NOTE | 2023-09-12 13:17 | PM.DS ---
DS: Admitting Diagnosis Discharge Date 09/12/23 Admitting Diagnosis (1) Cellulitis: ?Code(s): L03.90 - Cellulitis, unspecified ?Status:?Acute (2) Acute hyperkalemia: ?Code(s): E87.5 - Hyperkalemia ?Status:?Acute (3) UTI (urinary tract infection): DS: Discharge Diagnosis Discharge Diagnosis (1) Cellulitis: Code(s): L03.90 - Cellulitis, unspecified Status: Acute (2) Acute hyperkalemia: Code(s): E87.5 - Hyperkalemia Status: Acute (3) UTI (urinary tract infection): Qualifiers: Encounter type: initial encounter Indwelling urinary catheter type: indwelling urethral catheter Urinary tract infection type: catheter-associated UTI Qualified Code(s): T83.511A - Infection and inflammatory reaction due to indwelling urethral catheter, initial encounter; N39.0 - Urinary tract infection, site not specified Code(s): N39.0 - Urinary tract infection, site not specified Status: Acute DS: Summary Hospital Course Hospital Course: A pleasant 47-year-[facility] with past medical history obesity, neurocognitive disorder, chronic indwelling Jenkins, seizure disorder, hypertension, iron deficiency anemia, hyperlipidemia, insulin-dependent diabetes mellitus, history of DVT on warfarin, COPD, EAMON, heart failure preserved ejection fraction, depression, eczema, recurrent UTI and intertrigo presents with complaint of rash of the abdomen. Patient admitted on 09/07 for UTI, cellulitis, and hyperkalemia. The following medical issues have been addressed during hospitalization Acute on chronic hyperkalemia -she has had hyperkalemia for a while now. Renin 0.58 aldosterone 2. Discontinue her metoprolol as this can cause hyperkalemia and we will see if this helps. -presented with potassium of 5.8. On repeat on 09/07 in the a.m. and 6.1. Giving all therapies to reduce potassium and will recheck afterwards. On 09/08 this is persistent. Potassium is 5.7. She will receive another round of calcium gluconate, furosemide, glaucoma, insulin and dextrose. Check BMP in 4 hours On 09/09 her potassium is 5.6. This is a chronic issue for her. Will increase her Lokelma to 10 mg p.o. b.i.d.. Giving another round of dextrose and insulin. Her furosemide has also been restarted. 09/10 K5.2 c/w Lokelma to 10 mg p.o. b.i.d. hold Lasix, creatinine is bumping up 09/12: Potassium 4.2, dc Lokelma Complicated UTI with history of recurrent UTIs -previously she grew Enterobacter cloacae complex and it was apparently successfully treated with ciprofloxacin. On 09/07 start ciprofloxacin 400 mg IV b.i.d. -follow-up this admission's culture On 09/08 her urine culture is negative. Denies any pain. Likely this was colonization due to her indwelling Jenkins. It has been replaced. Discontinue ciprofloxacin 09/10, urine culture grows mix of Gentle krishna, blood culture negative 09/12 folic catheter is replaced today Chronic indwelling Jenkins catheter -replaced Cellulitis of the abdominal wall/intertrigo -was discharged on tolnaftate last time. Patient reports she was not getting this. -start miconazole cream twice daily. Continue vancomycin and ciprofloxacin for now as well. -consult Wound Care. Monitor for improvement and adjust as necessary. -pending blood cultures: No grows 09/10 high Received vancomycin and Cipro add tolnaftate topical bilaterally On 09/08 her blood cultures are so far negative. Abdominal wall is much improved and cellulitis is in fact not suspect. Her macerations and erythema and hyperpigmentation are largely due to intertrigo and obesity. Discontinue vancomycin 2/3 continue antifungal topically on b/l groins, prolactin level 0.1 Insulin-dependent diabetes mellitus -continue home dose mealtime and long-acting insulin. Accu-Cheks a.c. HS and sliding scale. History of DVT on warfarin -continue warfarin and INR checks -subtherapeutic INR. Continue warfarin at 5
== END 2023-09-12 16:50 | DRG 420 ==
LOC: ANHED 17:42 → ANHIMU 17:44 → ANH2MED 09-11 14:21
PROVIDERS: General Practice; Internal Medicine; Admitting Provider Family Medicine; Emergency Provider Emergency Medicine; PCP Internal Medicine; Visit Provider Hospitalist
DX: E11.628 Type 2 diabetes mellitus with other skin complications (principal); L03.311 Cellulitis of abdominal wall; I13.0 Hypertensive heart and chronic kidney disease with heart failure and stage 1 through stage 4 chronic kidney disease, or unspecified chronic kidney disease; E87.5 Hyperkalemia; I50.32 Chronic diastolic (congestive) heart failure; N18.9 Chronic kidney disease, unspecified; E11.22 Type 2 diabetes mellitus with diabetic chronic kidney disease; E11.42 Type 2 diabetes mellitus with diabetic polyneuropathy; E66.01 Morbid (severe) obesity due to excess calories; E78.5 Hyperlipidemia, unspecified; D64.9 Anemia, unspecified; J44.9 Chronic obstructive pulmonary disease, unspecified; K21.9 Gastro-esophageal reflux disease without esophagitis; R82.90 Unspecified abnormal findings in urine; G40.909 Epilepsy, unspecified, not intractable, without status epilepticus; G89.29 Other chronic pain; G47.33 Obstructive sleep apnea (adult) (pediatric); M19.90 Unspecified osteoarthritis, unspecified site; F31.9 Bipolar disorder, unspecified; F41.9 Anxiety disorder, unspecified; Z96.653 Presence of artificial knee joint, bilateral; Z68.43 Body mass index [BMI] 50.0-59.9, adult; Z74.01 Bed confinement status; Z79.01 Long term (current) use of anticoagulants; Z79.4 Long term (current) use of insulin; Z86.718 Personal history of other venous thrombosis and embolism; Z86.711 Personal history of pulmonary embolism; Z91.199 Patient's noncompliance with other medical treatment and regimen due to unspecified reason; Z95.0 Presence of cardiac pacemaker
CPT/HCPCS: 36415; 80048; 80053; 81001; 82274; 82565; 82728; 82948; 83540; 83550; 83735; 84100; 84145; 85025; 85046; 85610; 85730; 87040; 87086; 93005; 94640; 96365; 96366; 96367; 96374; 96375; 96376; 99285; A9270; G0378; G0379; J0612; J0744; J1815; J1940; J3370

== ENCOUNTER 2023-10-17 19:42 | Emergency (ER) | payer OTHER, SELFPAY ==
--- NOTE | ~2023-10-17 | XR_ITS ---
EXAMINATION: XR chest 1V portable DATE: 10/17/2023 20:27 INDICATION: Chest pain. TECHNIQUE: A single frontal view of the chest was obtained. COMPARISON: Chest view 07/03/2023 FINDINGS: Sensitivity is decreased by obesity. There is no pneumonia, pleural effusion, or pneumothor ax. Cardiomegaly is noted. There is a left chest wall pacer with leads in the right atrium and right ventricle. IMPRESSION: 1. Cardiomegaly. Reviewed, dictated and finalized at location E. HEMISTRY SPECIALIST IMPRESSION: 1. Cardiomegaly.
[2023-10-17 19:41] VITALS: BP 139/46; PULSE 87; RESP 12; TEMP 36.1; O2SAT 100
--- NOTE | 2023-10-17 19:47 | ECG_ITS ---
Measurements Intervals [place] Rate: 86 P: 38 WA: 160 QRS: 38 QRSD: 86 T: 23 QT: 359 QTc: 430 Interpretive Statements SINUS RHYTHM LOW QRS VOLTAGE IN DIFFUSE LEADS CONSIDER ANTEROSEPTAL INFARCT, AGE INDETERMINATE BASELINE ARTIFACT- I, III, AVR, AVL, AVF, V3-V6 ABNORMAL ECG COMPARED TO ECG 09/07/2023 10:31:47 NO SIGNIFICANT CHANGES Electronically Signed On 10-18-2023 9:41:16 CDT by Kalin Castorena D.O.
--- NOTE | 2023-10-17 20:04 | ED.GENADULT ---
HPI - General Adult General Chief complaint: Chest Pain Stated complaint: cp History of Present Illness HPI narrative: This is a 47-year-old female with multiple medical comorbidities presenting ED with chief complaint chest pain. Patient says the pain started 40 minutes prior to arrival while she was watching TV. It is a sharp pain in the center of her chest that radiates to her left arm. Is initially 10/10 intensity but is improved without intervention to 8/10. Patient says she has had this about 6 times in the last year but she does not know the cause. Patient denies nausea vomiting diaphoresis or exertional component. She does note some shortness of breath and lower extremity edema which he attributes to her heart failure. No other complaints. Related Data Home Medications Medication Instructions Recorded Confirmed furosemide 20 mg tablet 40 mg PO BID 01/18/22 09/06/23 albuterol sulfate 90 mcg/actuation 2 puff inhalation Q4H PRN 04/22/22 09/06/23 aerosol inhaler Shortness Of Breath famotidine 20 mg tablet (Pepcid) 20 mg PO DAILY 04/22/22 09/06/23 lisinopril 20 mg tablet 20 mg PO DAILY 04/22/22 09/06/23 gabapentin 300 mg capsule 300 mg PO TID 09/21/22 09/06/23 levetiracetam 500 mg tablet 500 mg PO BID 10/15/22 09/06/23 bisacodyl 10 mg rectal suppository 10 mg RECTAL DAILY PRN Constipation 12/18/22 09/06/23 insulin glargine 100 unit/mL (3 15 unit subcut QPM 12/18/22 09/06/23 mL) subcutaneous pen (Lantus Solostar U-100 Insulin) polyethylene glycol 3350 17 gram 17 g PO DAILY PRN Constipation 12/18/22 09/06/23 oral powder packet insulin lispro 100 unit/mL 7 unit subcut TIDWM 04/04/23 09/06/23 subcutaneous solution trazodone 50 mg tablet 100 mg PO HS 04/04/23 09/06/23 Betadine Swabsticks 1 applic topical DAILY 05/04/23 09/06/23 promethazine 25 mg rectal 25 mg RECTAL Q8H PRN nausea and 05/04/23 09/06/23 suppository vomitting acetaminophen 650 mg PO Q6H PRN Mild Pain (Scale 11/21/23 01/28/24 Score 1-4) ferrous sulfate 325 mg (65 mg 324 mg PO BID 06/30/23 09/06/23 iron) tablet simethicone 125 mg capsule (Gas 250 mg PO .PRN PRN Stomach Upset 06/30/23 09/06/23 Relief (simethicone)) sitagliptin phosphate 100 mg tablet 100 mg PO DAILY 06/30/23 09/06/23 torsemide 10 mg tablet 10 mg PO DAILY 06/30/23 09/06/23 alprazolam 0.5 mg tablet 0.5 mg PO Q8H PRN Anxiety 09/06/23 09/06/23 ascorbic acid (vitamin C) 500 mg 250 mg PO DAILY 09/06/23 09/06/23 tablet clindamycin HCl 150 mg capsule 450 mg PO Q6H 09/06/23 09/06/23 gentamicin 0.1 % topical cream 1 applic topical DAILY 09/06/23 09/06/23 nortriptyline 50 mg capsule 50 mg PO HS 09/06/23 09/06/23 silver sulfadiazine 1 % topical 1 applic topical DAILY 09/06/23 09/06/23 cream Allergies Allergy/AdvReac Type Severity Reaction Status Date / Time lidocaine Allergy Intermediate HIVES Verified 10/17/23 20:12 nitroglycerin Allergy Intermediate HIVES Verified 10/17/23 20:12 aspirin Allergy Mild Hives Verified 10/17/23 20:12 citalopram Allergy Mild Rash Verified 10/17/23 20:12 escitalopram Allergy Mild Hives Verified 10/17/23 20:12 ibuprofen Allergy Mild Hives Verified 10/17/23 20:12 Penicillins Allergy Mild HIVES PER Verified 10/17/23 20:12 UNCODED ALLERGIES 08/27/12 procaine Allergy Mild Hives Verified 10/17/23 20:12 propoxyphene Allergy Mild Hives Verified 10/17/23 20:12 doxycycline Allergy Unknown Hives Verified 10/17/23 20:12 meloxicam Allergy Unknown HIVES Verified 10/17/23 20:12 Sulfa (Sulfonamide Allergy Unknown HIVES PER Verified 10/17/23 20:12 Antibiotics) UNCODED ALLERGIES 08/27/12 sulfamethoxazole Allergy Unknown Hives Verified 10/17/23 20:12 trimethoprim Allergy Unknown Hives Verified 10/17/23 20:12 amoxicillin Allergy Hives Verified 10/17/23 20:12 codeine Allergy Hives Verified 10/17/23 20:12 iohexol Allergy Hives Verified 10/17/23 20:12 [From contrast - CT, X-RAY] adhesive AdvReac Unknown SILK TAPE= Verified 10/17/23 20:12 HIVES
[2023-10-17 20:14] LABS: Basophils Percent Auto 0.5 % (0.2-1.2); Eosinophils Absolute Auto 0.5 K/mm3 (0-0.3); Eosinophils Percent Auto 8.2 % (0-4.4); Hematocrit 30.5 % (37.0-47.0); Hemoglobin 8.9 g/dL (12.0-15.0); Immature Granulocyte Absolute 0.05 K/mm3 (0.00-0.031); Immature Granulocyte Percent A 0.8 % (0-0.5); Lymphocytes Absolute Auto 1.34 K/mm3 (0.9-3.2); Lymphocytes Percent Auto 22.1 % (18.3-44.2); Mean Corpuscular HGB Conc 29.2 g/dl (32-36); Mean Corpuscular Hemoglobin 27.6 pg (26-34); Mean Corpuscular Volume 94.7 fl (80-100); Mean Platelet Volume 9.1 fl (7.4-10.4); Monocytes Absolute Auto 0.6 K/mm3 (0.1-0.6); Neutrophils Absolute Auto 3.5 K/mm3 (1.3-6.7); Neutrophils Percent Auto 58.4 % (45.5-73.1); Platelet Count Result 218 k/mm3 (150-375); Red Blood Count 3.22 M/mm3 (4.2-5.4); Red Cell Distribution Width 16.3 % (11.5-14.5); White Blood Count 6.1 K/mm3 (4.5-10.0)
[2023-10-17 20:25] LABS: INR 1.1; Prothrombin Time 15.1 Seconds (11.1-14.7)
[2023-10-17 20:26] LABS: Partial Thromboplastin Time 30.7 SECONDS (22.3-36.8)
[2023-10-17 20:27] LABS: Anisocytosis 1+ (NORMAL); Hypochromasia 1+ (NORMAL); Platelet Estimate Adequate (Adequate); Schistocytes None Seen (NORMAL)
[2023-10-17 20:29] VITALS: O2SAT 99
[2023-10-17 20:30] LABS: Alanine Aminotransferase 36 U/L (6-35); Albumin Level 3.6 g/dL (3.5-5.1); Alkaline Phosphatase 178 U/L (38-126); Anion Gap 0 mmol/L (8-16); Aspartate Amino Transferase 31 U/L (14-36); Bilirubin,Total 0.5 mg/dL (0.2-1.3); Blood Urea Nitrogen 48 mg/dL (7-17); Carbon Dioxide 37 mmol/L (22-30); Chloride 102 mmol/L (98-107); Estimated Glomerular Filt Rate 59; Glucose 172 mg/dL (65-110); Lipase 69 U/L (23-300); Potassium 5.9 mmol/L (3.4-5.0); Sodium 139 mmol/L (137-145)
[2023-10-17 20:42] LABS: NT Pro B Type Natriuretic Pept 1420 pg/mL (19.9-100); Troponin I < 0.012 ng/mL (0.000-0.034)
[2023-10-17] MEDS: ACETAMINOPHEN 500 MG TABLET 1000 MG PO (21:24)
[2023-10-17] MEDS: FUROSEMIDE INJ 40 MG/4 ML VIAL IV PUSH (21:24)
[2023-10-17] MEDS: SODIUM ZIRCONIUM CYCLOSILICATE 10 GM POWD.PACK PO (21:24)
[2023-10-17 22:12] VITALS: BP 103/58; PULSE 80; RESP 15; O2SAT 98
--- NOTE | 2023-10-17 23:18 | ECG_ITS ---
Measurements Intervals [place] Rate: 76 P: 47 MA: 165 QRS: 32 QRSD: 82 T: 40 QT: 380 QTc: 428 Interpretive Statements SINUS RHYTHM LOW QRS VOLTAGE IN PRECORDIAL LEADS CONSIDER ANTERIOR INFARCT, AGE INDETERMINATE ABNORMAL ECG COMPARED TO ECG 10/17/2023 19:49:53 NO SIGNIFICANT CHANGES Electronically Signed On 10-18-2023 9:46:10 CDT by Kalin Castorena D.O.
--- NOTE | 2023-10-17 23:59 | PC.NURSE ---
BMP added onto pt labs at this time. Spoke with Brigida in the lab.
[2023-10-18] LABS: Troponin I < 0.012 ng/mL (0.000-0.034)
[2023-10-18 00:09] LABS: Anion Gap 4 mmol/L (8-16); Blood Urea Nitrogen 49 mg/dL (7-17); Calcium 8.7 mg/dL (8.4-10.2); Carbon Dioxide 33 mmol/L (22-30); Chloride 102 mmol/L (98-107); Estimated Glomerular Filt Rate 53; Glucose 177 mg/dL (65-110); Potassium 5.5 mmol/L (3.4-5.0); Sodium 139 mmol/L (137-145)
[2023-10-18 00:26] VITALS: BP 108/48; PULSE 73; RESP 15; O2SAT 100
--- NOTE | 2023-10-18 01:35 | PC.NURSE ---
0035 upon entering pt room, pt's IV was on the floor along with a small amount of blood. Pt stated she accidently ripped out the IV. Catheter was in tact, and IV site was cleaned and bandaged with gauze.
== END 2023-10-18 01:39 | disposition home or self-care (01) ==
PROVIDERS: Emergency Provider Emergency Medicine; PCP Internal Medicine
DX: R07.89 Other chest pain (principal); E87.5 Hyperkalemia; R60.9 Edema, unspecified; E66.9 Obesity, unspecified; J44.9 Chronic obstructive pulmonary disease, unspecified; I12.9 Hypertensive chronic kidney disease with stage 1 through stage 4 chronic kidney disease, or unspecified chronic kidney disease; E11.22 Type 2 diabetes mellitus with diabetic chronic kidney disease; N18.9 Chronic kidney disease, unspecified; E78.5 Hyperlipidemia, unspecified; Z87.891 Personal history of nicotine dependence; Z79.01 Long term (current) use of anticoagulants; Z86.718 Personal history of other venous thrombosis and embolism; Z68.41 Body mass index [BMI] 40.0-44.9, adult
CPT/HCPCS: 36415; 71045; 80048; 80053; 83690; 83880; 84484; 85025; 85610; 85730; 93005; 96374; 99284; A9270; J1940

== ENCOUNTER 2023-12-17 12:08 | Inpatient (IN) | payer OTHER, SELFPAY ==
[2023-12-17] VITALS (7 sets, daily range): BP systolic 107–136; BP diastolic 42–89; PULSE 86–105; RESP 16–18; TEMP 36.2–36.3; O2SAT 94–99
--- NOTE | ~2023-12-17 | US_ITS ---
EXAMINATION: US venous doppler [facility] DATE: 12/21/2023 15:16 INDICATION: Lower limb swelling. TECHNIQUE: Grayscale ultrasound images without and with compression and Doppler ultrasound images of the bilateral lower extremity veins were obtained. COMPARISON: Ultrasound 07/03/2023 FINDINGS: The visualized portions of right femoral vein, popliteal vein, peroneal veins, and posterior tibial v eins are patent. The common femoral vein and profunda femoral vein were not well visualized due to ob esity. The visualized portions of left femoral vein, popliteal vein, peroneal veins, and posterior tibial ve ins are patent. The common femoral vein and profunda femoral vein were not well visualized due to obe sity. IMPRESSION: 1. No deep venous thrombosis. Reviewed, dictated and finalized at location A.
--- NOTE | ~2023-12-17 | XR_ITS ---
XR chest PICC line DATE: 12/20/2023 11:43 INDICATION: PICC placement TECHNIQUE: Portable AP chest of 12/20/2023 at 1135 hours COMPARISON: 12/19/2023 CTA chest abdomen pelvis 12/17/1999 portable AP chest FINDINGS: Left-sided transvenous pacemaker device with leads overlying right atrium and right ventric le. Cardiomegaly. Right upper extremity PICC catheter, distal tip at approximately the upper right atrial area. No obvious pulmonary consolidation or pleural effusion or pneumothorax. Examination is limited due to body habitus and portable technique. IMPRESSION: Right upper extremity PICC catheter, distal tip at approximately the right atrial area. Reviewed, dictated and finalized at Location A. Reviewed, dictated and finalized at location A. IMPRESSION: Right upper extremity PICC catheter, distal tip at approximately th e right atrial area.
--- NOTE | ~2023-12-17 | XR_ITS ---
EXAMINATION: XR chest 1V portable DATE: 12/17/2023 13:54 INDICATION: Altered mental status. TECHNIQUE: A single frontal view of the chest was obtained. COMPARISON: Chest single view 10/17/2023 FINDINGS: Sensitivity is decreased by obesity. There is no pneumonia, pleural effusion, or pneumothor ax. Cardiomegaly is noted. There is a left chest wall pacer with leads in the right atrium and right ventricle. IMPRESSION: 1. Cardiomegaly. Reviewed, dictated and finalized at location A. IMPRESSION: 1. Cardiomegaly.
--- NOTE | ~2023-12-17 | CT_ITS ---
EXAMINATION: CTA chest PE abdomen pel DATE: 12/19/2023 18:44 INDICATION: confusion, hypoxia,distended abdomen, elevated D-Dimer(2.02) TECHNIQUE: Computed tomography angiography (CTA) of the chest was performed with 100 mL Omnipaque-350 intravenous contrast timed to evaluate the pulmonary arteries, followed by portal venous phase imagi ng of the abdomen and pelvis. Coronal maximum intensity projection 3D-reconstructions were created by the technologist. The dose-length product (DLP) was 2257.14 mGy-cm. Automated exposure control and i terative reconstruction technique were employed. COMPARISON: X-ray chest 12/17/2023; CT abdomen pelvis 06/30/2023; CT cap 05/03/2023. FINDINGS: CHEST: Lung parenchyma and airways: Dependent atelectasis, otherwise clear. Pleura: Unremarkable. Thoracic inlet, axillae and chest wall: No thyroid or soft tissue mass. Left chest pacer. Thoracic aorta: No significant dilation. No dissection. Bovine arch anatomy. Mediastinum: Normal. Heart and pericardium: Enlarged heart. No pericardial effusion. Coronary artery calcifications: Absent. Thoracic bones: No acute osseous finding. Pulmonary arteries: Study quality: Adequate. No pulmonary emboli detected. ABDOMEN/PELVIS: Liver: Normal. Biliary/Gallbladder: Gallbladder is absent. No bile duct dilation. Pancreas: Fatty infiltration. Spleen: Normal. Adrenals:No mass. Kidneys: No suspicious mass, obstructing stone, or hydronephrosis. GI tract: The rectum is dilated to 6.5 cm by hyperdense stool. No small bowel dilation. Normal append ix. Mesentery/Peritoneum: No ascites, mass, or free air. Retroperitoneum: No mass. Atherosclerotic abdominal aortic and/or arterial calcifications. Pelvis: Urinary bladder is decompressed by Jenkins catheter. Normal uterus and bilateral ovaries.. Soft Tissues: Irregular 3.6 x 6.2 cm fluid and gas collection with mild peripheral enhancement extend ing from the pubic symphysis. Dermal thickening and subcutaneous stranding in the lower abdomen. Abdominopelvic bones: Diastases of the pubic symphysis with erosive changes in the bilateral pubic b ones. IMPRESSION: No CT evidence of acute pulmonary embolus. Possible fecal impaction, without proximal obstructive changes. Findings concerning for septic arthritis involving the pubic symphysis with an adjacent 6.1 cm absces s. Persistent lower abdominal dermal thickening and subcutaneous stranding may represent cellulitis or p anniculitis. Reviewed, dictated and finalized at location K. IMPRESSION: No CT evidence of acute pulmonary embolus. Possible fecal impaction, without proximal obstructive changes. Findings concerning for septic arthritis involving the pubic symphysis with an adjacent 6.1 cm abscess. Persistent lower abdominal dermal thickening and subcutaneous stranding may rep resent cellulitis or panniculitis.
--- NOTE | ~2023-12-17 | CT_ITS ---
Clinical Indication: Altered mental status, plus drainage from pannus CT Scan of the Chest, Abdomen, and Pelvis with Contrast: Technique: Contiguous sections were acquired throughout the chest, abdomen, and pelvis after intraven ous administration of 100 cc of Omnipaque 350. Dose reduction technique was used on this scan by annie dumont automated exposure control and iterative reconstruction technique. The dose-length product (DL P) was 1997.28 mGy-cm. COMPARISON: 12/19/2023 Findings: There is no evidence of any significant mediastinal, hilar or axillary lymphadenopathy. No aortic ane urysm seen probable minimal pericardial effusion. Moderate right pleural effusion and minimal left pleural effusion are present. There is right basilar atelectatic change. The lungs are clear. No pulmonary nodules or infiltrates are noted. The liver, spleen, pancreas, adrenals and kidneys are within normal limits. Cholecystectomy clips are present. No evidence of aortic aneurysm. No lymphadenopathy. No bowel obstruction or bowel wall thickening. There is no evidence to suggest acute appendicitis. Urinary bladder collapsed with several small bubbles of air within it. No adnexal mass seen. No ascit es. Destructive change about the pubic symphysis again noted, status post interval placement of percutane ous drainage catheter in the previously noted abscess. The abscess is minimally decreased in size fro m prior exam. There is persistent extensive soft tissue stranding throughout the subcutaneous soft ti ssues anteriorly. Small areas of soft tissue gas are again noted in the anterior subcutaneous soft ti ssues in the proximal left thigh with asymmetric subcutaneous soft tissue swelling of the left side. Impression: Status post percutaneous drainage of abscess at the pubic symphysis with presumed underlying septic a rthritis of the pubic symphysis. Abscess is minimally decreased from prior exam. Small amount of soft tissue gas in the subcutaneous soft tissues in the anterior left thigh, which co uld reflect additional extension of soft tissue infection with gas-forming organism or necrotic sosa e. There is relative asymmetric soft tissue swelling subcutaneous density of the proximal left thigh as compared to the right, though no additional fluid collection seen in the visualized proximal left thigh. Small amount of air in urinary bladder, possibly iatrogenic. Correlate clinically. Moderate right pleural effusion and minimal left pleural effusion. Reviewed, dictated and finalized at location M. Impression: Status post percutaneous drainage of abscess at the pubic symphysis with presum ed underlying septic arthritis of the pubic symphysis. Abscess is minimally dec reased from prior exam. Small amount of soft tissue gas in the subcutaneous soft tissues in the anterio r left thigh, which could reflect additional extension of soft tissue infection with gas-forming organism or necrotic change. There is relative asymmetric sof t tissue swelling subcutaneous density of the proximal left thigh as compared t o the right, though no additional fluid collection seen in the visualized proxi mal left thigh. Small amount of air in urinary bladder, possibly iatrogenic. Correlate clinical ly. Moderate right pleural effusion and minimal left pleural effusion.
--- NOTE | ~2023-12-17 | CT_ITS ---
EXAMINATION: CT brain wo con DATE: 12/19/2023 18:44 INDICATION: ams . TECHNIQUE: Computed tomography (CT) of the head was performed without intravenous contrast. The mA wa s adjusted according to patient size. Iterative reconstruction technique was employed. The dose-lengt h product was 605.33 mGy-cm. COMPARISON: 04/28/2023. FINDINGS: No acute intracranial hemorrhage or extra-axial fluid collection. No hydrocephalus, mass, or herniation. No acute ischemic infarct. Unremarkable dural venous sinus attenuation. No acute osseous abnormality. The aerated spaces are clear. Atherosclerotic intracranial calcifications IMPRESSION: No acute intracranial process. Reviewed, dictated and finalized at location K.
--- NOTE | ~2023-12-17 | CT_ITS ---
EXAMINATION: CT guide absc cath placement DATE: 12/21/2023 13:09 INDICATION: Septic arthritis and abscess of the pubic symphysis. TECHNIQUE: The procedure including the risks, benefits, and alternatives was discussed with the patie nt. Risks discussed included bleeding and infection. The patient understood the risks and benefits an d agreed to proceed. The skin overlying the abdomen was prepped and draped in usual sterile fashion. Anesthetic was administered with 1% lidocaine subcutaneously. An 18 gauge trochar needle was inserte d into the parasymphyseal abscess with CT guidance. The needle was exchanged over a wire for 6 Surinamese , 8 Surinamese, and 9 Surinamese dilators and then for an 8.5 Surinamese pigtail catheter. The catheter was stitc hed to the skin, and a sterile dressing was applied. The mA was adjusted according to patient size. I terative reconstruction technique was employed. The dose-length product was 355.51 mGy-cm. There were no immediate complications. FINDINGS: CT images demonstrate the catheter within the parasymphyseal abscess. Fluid was not sent fo r testing. IMPRESSION: 1. Successful CT-guided parasymphyseal abscess drainage. Reviewed, dictated and finalized at location A.
--- NOTE | ~2023-12-17 | XR_ITS ---
EXAM: XR foot RT 2V DATE: 12/19/2023 21:17 HISTORY: osteomyelitis rule out . COMPARISON: None available. FINDINGS: Generalized decrease in bone mineralization. Increased focal osteopenia of the second thro ugh fifth metatarsal heads. Mineralization. No fracture or dislocation. No lytic or blastic lesion. S cattered moderate degenerative changes. Plantar enthesopathy. No erosion or periosteal change. Marked forefoot soft tissue swelling. Vascular calcifications. IMPRESSION: Marked forefoot soft tissue swelling. Focal osteopenia of the second through fifth metata rsal heads may be related to inflammatory arthropathy (such as rheumatoid), or infection. Consider MR I of the foot with and without contrast for further evaluation. Reviewed, dictated and finalized at location K. IMPRESSION: Marked forefoot soft tissue swelling. Focal osteopenia of the secon d through fifth metatarsal heads may be related to inflammatory arthropathy (wong ch as rheumatoid), or infection. Consider MRI of the foot with and without cont rast for further evaluation.
--- NOTE | 2023-12-17 12:49 | ECG_ITS ---
SEE SCANNED COPY FOR CONFIRMED REPORT MTDD
[2023-12-17 13:17] LABS: Alveolar/Arterial O2 Gradient 17.1 mmHg; Base Excess ABG 12.8 mEq/l (+/-2.0); Fractional Inspired Oxygen 21 %; HCO3 ABG 37.1 mEq/l (22.0-26.0); Oxygen Content ABG 12.1 %vol (16.0-22.0); Oxygen Saturation ABG 96.2 % (95.0-100.0); Oxyhemoglobin 94.1 % THb (90.0-100.0); PO2 ABG 76.3 mmHg (80.0-100.0); PO2 FiO2 Ratio Arterial Blood 3.63 %; Total Hemoglobin 9.1 g/dL (12.0-18.0)
[2023-12-17 13:21] LABS: Device ROOM AIR; Modified Allen's Test Pass; Site Drawn RIGHT RADIAL; pH ABG 7.515 (7.350-7.450)
--- NOTE | 2023-12-17 13:34 | PC.NURSE ---
Second RN to attempt IV access and blood draw.
[2023-12-17 13:54] LABS: Basophils Percent Auto 0.3 % (0.2-1.2); Eosinophils Absolute Auto 0.1 K/mm3 (0-0.3); Eosinophils Percent Auto 0.4 % (0-4.4); Hematocrit 29.7 % (37.0-47.0); Hemoglobin 8.6 g/dL (12.0-15.0); Immature Granulocyte Absolute 0.06 K/mm3 (0.00-0.031); Immature Granulocyte Percent A 0.4 % (0-0.5); Lymphocytes Absolute Auto 1.51 K/mm3 (0.9-3.2); Lymphocytes Percent Auto 10.3 % (18.3-44.2); Mean Corpuscular Hemoglobin 26.8 pg (26-34); Mean Corpuscular Volume 92.5 fl (80-100); Mean Platelet Volume 9.2 fl (7.4-10.4); Monocytes Percent Auto 6.8 % (2.6-8.5); Neutrophils Percent Auto 81.8 % (45.5-73.1); Platelet Count Result 325 k/mm3 (150-375); Red Blood Count 3.21 M/mm3 (4.2-5.4); Red Cell Distribution Width 15.5 % (11.5-14.5); White Blood Count 14.7 K/mm3 (4.5-10.0)
[2023-12-17 14:06] LABS: INR 1.9; Lactic Acid Reflex 1.6 mmol/L (0.7-2.0); Prothrombin Time 22.8 Seconds (11.1-14.7)
[2023-12-17 14:07] LABS: Partial Thromboplastin Time 36.1 Seconds (22.3-36.8)
[2023-12-17] MEDS: SODIUM CHLORIDE 0.9% IV 1,000 ML 999 ML IV CONT (14:09)
[2023-12-17 14:11] LABS: Hypochromasia 1+; Platelet Estimate Adequate (Adequate); Schistocytes None Seen
[2023-12-17 15:00] LABS: Appearance Urine Cloudy (Clear); Bacteria Urine 3+ /hpf; Bilirubin Urine Negative (Negative); Blood Urine 3+ (Negative); Color Urine Yellow (Yellow); Glucose Urine UA Negative (Negative); Ketones Urine Negative (Negative); Leukocyte Esterase Ur 3+ LEU/UL (Negative); Nitrate Urine Negative (Negative); Non Pathogenic Casts 0-2; Protein Urine 2+ mg/dL (Negative); RBC Urine >100 /hpf (0-2); Specific Grav Ur 1.013 (1.001-1.035); Squamous Epithelial Cell Urine None Seen /hpf (Few); WBC Urine 51-100 /hpf (0-3); pH Urine 7.5 (5.0-9.0)
[2023-12-17 15:01] LABS: Alanine Aminotransferase 11 U/L (6-35); Albumin Level 3.2 g/dL (3.5-5.1); Alkaline Phosphatase 136 U/L (38-126); Anion Gap 2 mmol/L (4-12); Aspartate Amino Transferase 18 U/L (14-36); Bilirubin,Total 0.7 mg/dL (0.2-1.3); Blood Urea Nitrogen 46 mg/dL (7-17); Calcium 8.7 mg/dL (8.4-10.2); Carbon Dioxide 38 mmol/L (22-30); Chloride 99 mmol/L (98-107); Estimated Glomerular Filt Rate 59; Glucose 155 mg/dL (65-110); Potassium 5.1 mmol/L (3.4-5.0); Sodium 139 mmol/L (137-145)
[2023-12-17 15:04] LABS: Add Urine Microscopic? YES
[2023-12-17 15:12] LABS: Troponin I < 0.012 ng/mL (0.000-0.034)
--- NOTE | 2023-12-17 16:23 | ED.GENADULT ---
HPI - General Adult General Chief complaint: Altered Mental Status Stated complaint: ams Time Seen by Provider: 12/17/23 12:39 History of Present Illness HPI narrative: Patient is a 40-year-old female who presents ER with altered mental status. Patient is very sleepy but is oriented times 2 upon initial evaluation. Not oriented to date. She reports some mild epigastric pain but cannot elaborate further. Patient well known to this hospital. Related Data Home Medications Medication Instructions Recorded Confirmed furosemide 20 mg tablet 40 mg PO BID 01/18/22 09/06/23 albuterol sulfate 90 mcg/actuation 2 puff inhalation Q4H PRN 04/22/22 09/06/23 aerosol inhaler Shortness Of Breath famotidine 20 mg tablet (Pepcid) 20 mg PO DAILY 04/22/22 09/06/23 lisinopril 20 mg tablet 20 mg PO DAILY 04/22/22 09/06/23 gabapentin 300 mg capsule 300 mg PO TID 09/21/22 09/06/23 levetiracetam 500 mg tablet 500 mg PO BID 10/15/22 09/06/23 bisacodyl 10 mg rectal suppository 10 mg RECTAL DAILY PRN Constipation 12/18/22 09/06/23 insulin glargine 100 unit/mL (3 15 unit subcut QPM 12/18/22 09/06/23 mL) subcutaneous pen (Lantus Solostar U-100 Insulin) polyethylene glycol 3350 17 gram 17 g PO DAILY PRN Constipation 12/18/22 09/06/23 oral powder packet insulin lispro 100 unit/mL 7 unit subcut TIDWM 04/04/23 09/06/23 subcutaneous solution trazodone 50 mg tablet 100 mg PO HS 04/04/23 09/06/23 Betadine Swabsticks 1 applic topical DAILY 05/04/23 09/06/23 promethazine 25 mg rectal 25 mg RECTAL Q8H PRN nausea and 05/04/23 09/06/23 suppository vomitting acetaminophen 650 mg PO Q6H PRN Mild Pain (Scale 06/30/23 09/06/23 Score 1-4) ferrous sulfate 325 mg (65 mg 324 mg PO BID 06/30/23 09/06/23 iron) tablet simethicone 125 mg capsule (Gas 250 mg PO .PRN PRN Stomach Upset 06/30/23 09/06/23 Relief (simethicone)) sitagliptin phosphate 100 mg tablet 100 mg PO DAILY 06/30/23 09/06/23 torsemide 10 mg tablet 10 mg PO DAILY 06/30/23 09/06/23 alprazolam 0.5 mg tablet 0.5 mg PO Q8H PRN Anxiety 09/06/23 09/06/23 ascorbic acid (vitamin C) 500 mg 250 mg PO DAILY 09/06/23 09/06/23 tablet clindamycin HCl 150 mg capsule 450 mg PO Q6H 09/06/23 09/06/23 gentamicin 0.1 % topical cream 1 applic topical DAILY 09/06/23 09/06/23 nortriptyline 50 mg capsule 50 mg PO HS 09/06/23 09/06/23 silver sulfadiazine 1 % topical 1 applic topical DAILY 09/06/23 09/06/23 cream Allergies Allergy/AdvReac Type Severity Reaction Status Date / Time lidocaine Allergy Intermediate HIVES Verified 10/17/23 20:12 nitroglycerin Allergy Intermediate HIVES Verified 10/17/23 20:12 aspirin Allergy Mild Hives Verified 10/17/23 20:12 citalopram Allergy Mild Rash Verified 10/17/23 20:12 escitalopram Allergy Mild Hives Verified 10/17/23 20:12 ibuprofen Allergy Mild Hives Verified 10/17/23 20:12 Penicillins Allergy Mild HIVES PER Verified 10/17/23 20:12 UNCODED ALLERGIES 08/27/12 procaine Allergy Mild Hives Verified 10/17/23 20:12 propoxyphene Allergy Mild Hives Verified 10/17/23 20:12 doxycycline Allergy Unknown Hives Verified 10/17/23 20:12 meloxicam Allergy Unknown HIVES Verified 10/17/23 20:12 Sulfa (Sulfonamide Allergy Unknown HIVES PER Verified 10/17/23 20:12 Antibiotics) UNCODED ALLERGIES 08/27/12 sulfamethoxazole Allergy Unknown Hives Verified 10/17/23 20:12 trimethoprim Allergy Unknown Hives Verified 10/17/23 20:12 amoxicillin Allergy Hives Verified 10/17/23 20:12 codeine Allergy Hives Verified 10/17/23 20:12 iohexol Allergy Hives Verified 10/17/23 20:12 [From contrast - CT, X-RAY] adhesive AdvReac Unknown SILK TAPE= Verified 10/17/23 20:12 HIVES imipenem AdvReac Itching Verified 10/17/23 20:12 Review of Systems Review of Systems: ROS unobtainable: Yes unobtainable due to medical condition PMFSH Past Medical History Medical History Anemia Anxiety Arthritis Asthma Bipolar disorder
[2023-12-17 20:33] LABS: Glucose Point of Care 149 mg/dl (65-105)
--- NOTE | 2023-12-17 20:33 | PM.IMHP ---
H&P: HPI History of Present Illness Date/Time: 12/17/23 20:33 Chief Complaint: altered mental status Narrative: this is a 48-year-old female with past medical history significant for morbid obesity, insulin-dependent diabetes mellitus, congestive heart failure, bipolar disorder, hypertension, chronic kidney disease, deep vein thrombosis, depression, diastolic heart failure, epilepsy, GERD, obstructive sleep apnea, peripheral neuropathy. patient resides at [facility] facility was brought to the emergency room according to notes patient had hallucinations. At the time of my visit patient was obtunded, easily arousable, upon waking up started crying did not provide much history meaningful or contributory to present illness. Preliminary workup was significant for urinalysis with numerous WBCs present. EXAMINATION: XR chest 1V portable DATE: 12/17/2023 13:54 INDICATION: Altered mental status. TECHNIQUE: A single frontal view of the chest was obtained. COMPARISON: Chest single view 10/17/2023 FINDINGS: Sensitivity is decreased by obesity. There is no pneumonia, pleural effusion, or pneumothorax. Cardiomegaly is noted. There is a left chest wall pacer with leads in the right atrium and right ventricle. IMPRESSION: 1. Cardiomegaly. Review of Systems Review of Systems: ROS unobtainable: Yes unobtainable due to mental status ( obtundation) [facility] Past Medical History Medical History Anemia Anxiety Arthritis Asthma Bipolar disorder Chronic anticoagulation For history of DVT and PE. Chronic kidney disease Chronic obstructive pulmonary disease Chronic pain syndrome Deep venous thrombosis Depression Diastolic dysfunction Eczema Epilepsy Gastroesophageal reflux disease Herniated disc History of MRSA infection Hyperlipidemia Hypertension Insulin dependent diabetes mellitus Historically poorly controlled. Obesity Obstructive sleep apnea Non compliant with treatment. Peripheral neuropathy Personal history of noncompliance with medical treatment and regimen Pulmonary embolism Seizures Suicide attempt T11 vertebral fracture Nondisplaced fracture of the right T11 inferior articulating facet. No surgical intervention required. UTI (urinary tract infection) Surgical History Surgical History History of bilateral knee replacement History of cardiac catheterization History of cardiac pacemaker For paroxysmal ventricular arrhythmia/tachycardia. History of cholecystectomy Family History Family History Mother Heart disease Acute myocardial infarction Uterine cancer COVID-19 Diabetes mellitus Hypertension Kidney disease Father Heart disease Social History Social History Social History: Surrogate medical decision maker: Meño Marquez, significant other. Code status: Full code. Smoking packs per day: 1.5 Smoking cigarettes per day: 30.0 Years smoked: 9 Smoking pack-years: 13.50 Smoking status: Former smoker Second hand tobacco smoke exposure: No Alcohol intake: never Substance use: never Substance use type: does not use Do You Feel Safe in your Home?: Yes Lack of Transportation: No Lack of Food: Never True Current Housing: I Have Housing Concerned About Future Housing: No Difficulty Paying Gas/Electric Bills: No Difficulty Paying for Meds: No Currently Unemployed: No Education: High School Diploma/GED Difficulty w/ Childcare or Family Care: No Living arrangements: with family Additional living arrangements comments: . Four children being raised by her sister. Additional occupation/education comments: Disabled. Spiritual care concerns: No Meds Home Medications and Allergies Home Medications Medication Instructions Recorde
[2023-12-18] VITALS (9 sets, daily range): BP systolic 95–133; BP diastolic 58–65; PULSE 90–99; RESP 16–18; TEMP 36.5–37; O2SAT 84–99
[2023-12-18] MEDS: ALPRAZolam (*CRX) 0.5 MG TABLET PO (01:08)
[2023-12-18] MEDS: METOPROLOL TARTRATE 12.5 MG TABLET PO ×2 (01:09→09:07)
[2023-12-18] MEDS: diphenhydrAMINE HCl CAP 25 MG CAPSULE PO (01:09)
[2023-12-18] MEDS: traZODone HCL 50 MG TABLET 100 MG PO ×2 (01:09→21:43)
[2023-12-18] MEDS: traMADol HCL (*CRX) 50 MG TABLET PO ×2 (01:09→15:15)
[2023-12-18 08:37] LABS: Glucose Point of Care 156 mg/dl (65-105)
[2023-12-18] MEDS: GABAPENTIN 300 MG CAPSULE PO ×3 (09:06→17:22)
[2023-12-18] MEDS: ASCORBIC ACID 500 MG TABLET PO (09:06)
[2023-12-18] MEDS: FAMOTIDINE 20 MG TABLET PO (09:06)
[2023-12-18] MEDS: LORATADINE 10 MG TABLET PO (09:06)
[2023-12-18] MEDS: NORTRIPTYLINE HCL 25 MG CAPSULE 50 MG PO ×2 (09:06→17:22)
[2023-12-18] MEDS: levETIRAcetam 500 MG TABLET PO ×2 (09:06→21:45)
[2023-12-18] MEDS: metOLazone 5 MG TABLET PO (09:06)
[2023-12-18] MEDS: DOCUSATE SODIUM 100 MG CAPSULE PO (09:06)
[2023-12-18] MEDS: APIXABAN 2.5 MG TABLET PO ×2 (09:06→21:45)
[2023-12-18] MEDS: FERROUS SULFATE 325 MG TABLET DR PO ×2 (09:06→17:22)
[2023-12-18] MEDS: lisinopriL 20 MG TABLET PO (09:07)
[2023-12-18] MEDS: TOLNAFTATE 1% POWDER 45 GM BTL 1 APPLIC TOPICAL ×2 (09:07→21:45)
[2023-12-18] MEDS: FUROSEMIDE 40 MG TABLET PO ×2 (09:07→17:22)
[2023-12-18] MEDS: INSULIN ASPART (*BKC) 100 UNITS/ML 7 UNITS SUB-Q ×2 (09:14→12:44)
--- NOTE | 2023-12-18 09:17 | WPDURCON ---
Assessment and Plan Assessment and plan (1) UTI (urinary tract infection): Code(s): N39.0 - Urinary tract infection, site not specified Status: Acute Assessment and Plan: Urinalysis is grossly abnormal concerning for UTI. Likely contributing to mental status changes. Continue empiric antibiotics and tailor to pending urine culture (2) Chronic indwelling Garner catheter: Code(s): Z97.8 - Presence of other specified devices Status: Acute Assessment and Plan: Has chronic garner managed at her nursing facility. Garner removed on arrival and noted to have difficulty with replacement, likely due to body habitus. Garner is now in place and draining clear yellow urine. Leakage likely related to bladder spasms. Can trial anticholinergics for spasms if persistent. Urology Consult Note HPI Date Seen: 12/18/23 Requesting Physician: Yoseph Shah MD Primary Care Provider: Jose Painter MD Consult Narrative Narrative: Valerie Nguyen is a 48 year old female with multiple medical comorbidities, morbid obesity, recurrent UTIs, and chronic indwelling garner catheter who is currently admitted for altered mental status and suspected UTI and is being seen in consultation for garner catheter management. She presented to the emergency department on 12/17/23 from her nursing facility. On presentation, she was afebrile and her vital signs were stable. WBC was elevated at 14.7, creatinine 1.0, and UA was grossly abnormal. Her chronic garner was removed in the ER but attempts to replace were unsuccessful. Urology was consulted for garner catheter placement. Upon my arrival, the patient does have a garner catheter in place which is draining clear yellow urine. She has reportedly been having some leakage around the catheter which is likely due to bladder spasms.The patient is unable to provide any history. Review of Systems Review of Systems: ROS unobtainable: Yes unobtainable due to mental status PMFSH Past Medical History Medical History Anemia Anxiety Arthritis Asthma Bipolar disorder Chronic anticoagulation For history of DVT and PE. Chronic kidney disease Chronic obstructive pulmonary disease Chronic pain syndrome Deep venous thrombosis Depression Diastolic dysfunction Eczema Epilepsy Gastroesophageal reflux disease Herniated disc History of MRSA infection Hyperlipidemia Hypertension Insulin dependent diabetes mellitus Historically poorly controlled. Obesity Obstructive sleep apnea Non compliant with treatment. Peripheral neuropathy Personal history of noncompliance with medical treatment and regimen Pulmonary embolism Seizures Suicide attempt T11 vertebral fracture Nondisplaced fracture of the right T11 inferior articulating facet. No surgical intervention required. UTI (urinary tract infection) Surgical History Surgical History History of bilateral knee replacement History of cardiac catheterization History of cardiac pacemaker For paroxysmal ventricular arrhythmia/tachycardia. History of cholecystectomy Family History Family History Mother Heart disease Acute myocardial infarction Uterine cancer COVID-19 Diabetes mellitus Hypertension Kidney disease Father Heart disease Social History Social History Social History: Surrogate medical decision maker: Meño Marquez, significant other. Code status: Full code. Smoking packs per day: 1.5 Smoking cigarettes per day: 30.0 Years smoked: 9 Smoking pack-years: 13.50 Smoking status: Former smoker Second hand tobacco smoke exposure: No Alcohol intake: never Substance use: never Substance use type: does not use Do You Feel Safe in your Home?: Yes Lack of Transportation: No Lack of Food: N
[2023-12-18 12:14] LABS: Glucose Point of Care 141 mg/dl (65-105)
[2023-12-18 12:14] LABS: Glucose Point of Care 145 mg/dl (65-105)
[2023-12-18] MEDS: ARTIFICIAL TEARS OPHTH SOLN 15 ML BOTTLE 1 DROP EACH EYE ×2 (12:28→17:22)
--- NOTE | 2023-12-18 13:07 | PM.IMPN ---
Progress Note: A&P Assessment and Plan (1) UTI (urinary tract infection): Code(s): N39.0 - Urinary tract infection, site not specified Status: Acute Assessment and Plan: Urine culture was sent. Patient is currently on ceftriaxone. Will continue current treatment monitor to see. (2) Chronic indwelling Garner catheter: Code(s): Z97.8 - Presence of other specified devices Status: Acute Assessment and Plan: Has chronic garner managed at her nursing facility. Garner removed on arrival and noted to have difficulty with replacement, likely due to body habitus. Garner is now in place and draining clear yellow urine. (3) Anemia: Code(s): D64.9 - Anemia, unspecified Status: Acute Assessment and Plan: Continue with iron and monitor closely (4) Diabetes mellitus: Qualifiers: Diabetes mellitus type: type 2 Diabetes mellitus detention insulin use: with bed bug exterminator use Diabetes mellitus complication status: without complication Qualified Code(s): E11.9 - Type 2 diabetes mellitus without complications; Z79.4 - lobsterman (current) use of insulin Code(s): E11.9 - Type 2 diabetes mellitus without complications Status: Chronic Assessment and Plan: Stable on current medications, will continue current treatment monitor closely (5) Peripheral neuropathy: Qualifiers: Peripheral neuropathy type: polyneuropathy, other Qualified Code(s): G62.89 - Other specified polyneuropathies Code(s): G62.9 - Polyneuropathy, unspecified Status: Acute Assessment and Plan: Stable on current medications, will continue current treatment (6) Bipolar disorder: Code(s): F31.9 - Bipolar disorder, unspecified Status: Acute Assessment and Plan: Stable on current medications, will continue current treatment Plan Full code Eliquis as a DVT prophylaxis Will continue with IV antibiotics and monitor culture results. Subjective Date/time seen: 12/18/23 13:07 Interval history: Patient was seen during the rounds today. Patient is feeling slightly better. No shortness of breath or chest pain. No abdominal pain, nausea, no vomiting. Mood stable. Review of Systems Review of Systems: ROS unobtainable: Yes unobtainable due to mental status Exam Narrative: General: Awake, unable to answer any orientation questions, occasionally groaning in discomfort HEENT: Normocephalic, atraumatic, sclerae anicteric Respiratory: Normal respiratory effort, no accessory muscle use Abdomen: obese abdomen with large pannus : Garner catheter draining clear yellow urine, pad underneath patient is dry with no signs of leakage Skin: Normal coloration, chronic irritation and inflammation of groin, inguinal folds, and thighs Extremities:- Mild swelling Neurologic: No focal neuro deficits noted Const: General: comfortable, no acute distress, well developed, ill appearing chronically, lethargic, patient obtunded, obese and edematous Nutritional Appearance: obese morbidly obese and edematous Orientation/consciousness: oriented to person, oriented to place, patient obtunded and lethargic Other: edematous HENMT: Head: normal to inspection, normocephalic and atraumatic Ears: hearing grossly normal bilaterally Face/Nose/Sinus: normal facial exam Face and sinus: normal facial exam Eyes: General: appearance normal, both eyes and all related structures Pupils: Equal, round and reactive pupils present EOM: EOMs intact bilaterally Neck: Neck: full ROM, no lymphadenopathy and no JVD Thyroid: thyroid normal Lymphatic: no lymphadenopathy noted Resp: Effort & Inspection: normal respiratory effort and able to speak in complete sentences Auscultation: clear to auscultation bilaterally Cardio: Jugular venous distension: no JVD Rate: regular rate Rhythm: regular rhythm Heart sounds: S1 normal heart sound present and S2 normal heart sound presen
[2023-12-18 17:08] LABS: Glucose Point of Care 106 mg/dl (65-105)
[2023-12-18] MEDS: INSULIN GLARGINE (*BKC) 100 UNITS/ML 15 UNITS SUB-Q (17:25)
[2023-12-18 20:07] LABS: Glucose Point of Care 119 mg/dl (65-105)
[2023-12-19] VITALS (45 sets, daily range): BP systolic 75–162; BP diastolic 36–111; PULSE 84–98; RESP 9–27; TEMP 36.3–39.4; O2SAT 93–100
[2023-12-19] MEDS: ARTIFICIAL TEARS OPHTH SOLN 15 ML BOTTLE 1 DROP EACH EYE ×4 (00:08→19:40)
[2023-12-19 05:44] LABS: Basophils Absolute Auto 0.1 K/mm3 (0.0-0.1); Basophils Percent Auto 0.4 % (0.2-1.2); Eosinophils Percent Auto 0.2 % (0-4.4); Hematocrit 33.8 % (37.0-47.0); Hemoglobin 8.7 g/dL (12.0-15.0); Immature Granulocyte Absolute 0.09 K/mm3 (0.00-0.031); Immature Granulocyte Percent A 0.5 % (0-0.5); Lymphocytes Absolute Auto 1.83 K/mm3 (0.9-3.2); Mean Corpuscular HGB Conc 25.7 g/dl (32-36); Mean Corpuscular Hemoglobin 26.1 pg (26-34); Mean Corpuscular Volume 101.5 fl (80-100); Mean Platelet Volume 9.2 fl (7.4-10.4); Monocytes Absolute Auto 0.9 K/mm3 (0.1-0.6); Monocytes Percent Auto 5.2 % (2.6-8.5); Neutrophils Absolute Auto 13.8 K/mm3 (1.3-6.7); Neutrophils Percent Auto 82.7 % (45.5-73.1); Platelet Count Result 245 k/mm3 (150-375); Red Blood Count 3.33 M/mm3 (4.2-5.4); Red Cell Distribution Width 15.6 % (11.5-14.5); White Blood Count 16.7 K/mm3 (4.5-10.0)
[2023-12-19 06:04] LABS: Alanine Aminotransferase 10 U/L (6-35); Albumin Level 3.1 g/dL (3.5-5.1); Alkaline Phosphatase 125 U/L (38-126); Anion Gap 2 mmol/L (4-12); Aspartate Amino Transferase 18 U/L (14-36); Bilirubin,Total 0.8 mg/dL (0.2-1.3); Blood Urea Nitrogen 46 mg/dL (7-17); Calcium 8.5 mg/dL (8.4-10.2); Carbon Dioxide 33 mmol/L (22-30); Chloride 104 mmol/L (98-107); Estimated Glomerular Filt Rate 37; Glucose 115 mg/dL (65-110); Potassium 4.6 mmol/L (3.4-5.0); Sodium 139 mmol/L (137-145)
[2023-12-19 06:29] LABS: Platelet Estimate Adequate (Adequate)
[2023-12-19 06:37] LABS: Hypochromasia 2+; Schistocytes None Seen
[2023-12-19 08:21] LABS: Glucose Point of Care 123 mg/dl (65-105)
[2023-12-19] MEDS: NORTRIPTYLINE HCL 25 MG CAPSULE 50 MG PO (08:42)
[2023-12-19] MEDS: FUROSEMIDE 40 MG TABLET PO (08:42)
[2023-12-19] MEDS: FAMOTIDINE 20 MG TABLET PO (08:42)
[2023-12-19] MEDS: LORATADINE 10 MG TABLET PO (08:42)
[2023-12-19] MEDS: ASCORBIC ACID 500 MG TABLET PO (08:42)
[2023-12-19] MEDS: FERROUS SULFATE 325 MG TABLET DR PO (08:42)
[2023-12-19] MEDS: levETIRAcetam 500 MG TABLET PO ×2 (08:42→20:52)
[2023-12-19] MEDS: GABAPENTIN 300 MG CAPSULE PO ×2 (08:42→13:33)
[2023-12-19] MEDS: APIXABAN 2.5 MG TABLET PO (08:42)
[2023-12-19] MEDS: metOLazone 5 MG TABLET PO (08:42)
[2023-12-19] MEDS: DOCUSATE SODIUM 100 MG CAPSULE PO (08:43)
[2023-12-19] MEDS: TOLNAFTATE 1% POWDER 45 GM BTL 1 APPLIC TOPICAL ×2 (08:43→20:24)
[2023-12-19] MEDS: lisinopriL 20 MG TABLET PO (08:43)
[2023-12-19] MEDS: METOPROLOL TARTRATE 12.5 MG TABLET PO (08:53)
[2023-12-19] MEDS: traMADol HCL (*CRX) 50 MG TABLET PO (10:43)
[2023-12-19 12:00] LABS: Glucose Point of Care 140 mg/dl (65-105)
[2023-12-19 13:35] LABS: Glucose Point of Care 165 mg/dl (65-105)
[2023-12-19] MEDS: INSULIN ASPART (*BKC) 100 UNITS/ML 7 UNITS SUB-Q (13:48)
[2023-12-19 15:27] LABS: NT Pro B Type Natriuretic Pept 8550 pg/mL (19.9-100)
[2023-12-19 15:44] LABS: D Dimer 2.02 ug/mL (<0.48)
[2023-12-19 15:49] LABS: Glucose Point of Care 151 mg/dl (65-105)
[2023-12-19 15:59] LABS: Alveolar/Arterial O2 Gradient 57.6 mmHg; Base Excess ABG 10.1 mEq/l (+/-2.0); Fractional Inspired Oxygen 28 %; HCO3 ABG 35.2 mEq/l (22.0-26.0); Oxygen Content ABG 13.9 %vol (16.0-22.0); Oxygen Saturation ABG 96.5 % (95.0-100.0); Oxyhemoglobin 95.3 % THb (90.0-100.0); PCO2 ABG 50.2 mmHg (35.0-45.0); PO2 ABG 82.8 mmHg (80.0-100.0); PO2 FiO2 Ratio Arterial Blood 2.96 %; Total Hemoglobin 10.3 g/dL (12.0-18.0); pH ABG 7.464 (7.350-7.450)
[2023-12-19 16:01] LABS: Device NASAL CANNULA; Modified Allen's Test Pass; Site Drawn RIGHT RADIAL
[2023-12-19] MEDS: SODIUM CHLORIDE 0.9% IV 500 ML IV CONT (16:25)
--- NOTE | 2023-12-19 16:30 | PM.IMPN ---
Progress Note: A&P Assessment and Plan (1) Chronic indwelling Jenkins catheter: Code(s): Z97.8 - Presence of other specified devices Status: Acute (2) Anemia: Code(s): D64.9 - Anemia, unspecified Status: Acute (3) Acute metabolic encephalopathy: Code(s): G93.41 - Metabolic encephalopathy Status: Acute (4) UTI (urinary tract infection): Code(s): N39.0 - Urinary tract infection, site not specified Status: Acute (5) Sepsis: Code(s): A41.9 - Sepsis, unspecified organism Status: Acute Plan 48-year-old female is a resident of longterm with past medical history morbid obesity, bipolar disorder, chronic indwelling Jenkins, seizure disorder, hypertension, iron deficiency anemia, hyperlipidemia, insulin-dependent diabetes mellitus, history of DVT on warfarin, COPD, EAMON, diastolic heart failure, status post permanent pacemaker, CKD stage IIIA, depression, eczema, recurrent UTI and intertrigo, history of hyperkalemia, history of cellulitis presents with altered mental status. Acute encephalopathy -unclear subtype and etiology is currently unknown. She rarely answers questions appropriately and appears lethargic. Differential includes worsening of bipolar/neurocognitive disorder, intracerebral accident, toxic encephalopathy due to UTI or other toxic process, iatrogenic medication effect -check Keppra level, ammonia level normal, vitamin B12 level normal, check TSH. Check salicylate and acetaminophen level. Check urine drug screen. -ABG on December 18 demonstrates a metabolic alkalosis with partial compensation with pCO2 level 50. There may also be a component of obesity hypoventilation syndrome/EAMON overlap. She has been much higher in the past -unlikely this is the culprit to her acute encephalopathy. For, will order CPAP at night if she can tolerate and guard her airway. -also discontinuing trazodone which she has been taking chronically. He did receive tramadol as well which could be the cause of this. -pending CT chest abdomen pelvis. Pending CT brain without contrast Severe sepsis -presented with WBC 14.7 and now 16.7. also on 12/18 she is developing hypotension. Will be holding her diuretics and all other blood pressure medication she takes at home. Acute hypoxic respiratory failure -this is new. She is requiring 2 L nasal cannula on December 18. Check quad viral screen. Chest x-ray appears unremarkable. -D-dimer elevated. Currently obtaining a CTA chest to rule out PE or other causes of hypoxic respiratory failure. Nurse Nancy and I attempted to contact both contacts on the patient's hospital contacts and the longterm form. Unable to leave a message as well. Patient has a documented contrast allergy with hives. Attempted to speak to the patient about receiving IV contrast with premedication and she did not seem to understand. Considering the patient is gradually deteriorating and further evaluation is necessary to treat the patient appropriately to prevent further decline we will go ahead and pre treat the patient with Solu-Medrol under emergency premises. Will not give Benadryl to the patient is already lethargic state and the risk of worsening that. Complicated UTI due to chronic indwelling Jenkins catheter -urinalysis on admission appears to indicate infection however urine culture grown mixed krishna. -recheck urine culture from the Jenkins bag. -DC ceftriaxone which was started on admission and start vancomycin and cefepime due to increasing leukocytosis, worsening clinical status and worsening sepsis. -pending blood cultures -urology consulted since the replacement of her Jenkins catheter was difficult in the ER. Currently she is draining dark yellow fluid. Nurse reports there is leakage around the insertion site and Urology has suggested oxybutynin to decrease bladder spasms. For considering her acute encephalopathy we are going to hold that for now. Urology reports she is a poor jaswinder
[2023-12-19] MEDS: methylPREDNISolone SOD SUCC 40 MG VIAL IV PUSH ×2 (16:37→20:21)
[2023-12-19 17:00] LABS: Glucose Point of Care 148 mg/dl (65-105)
[2023-12-19 17:05] LABS: Acetaminophen < 10 ug/mL (10-30); Salicylate < 1.0 mg/dL (2-20)
[2023-12-19 17:29] LABS: Influenza A QL RT-PCR Negative (Negative); Influenza B QL RT-PCR Negative (Negative); RSV RNA, RT-PCR Negative (Negative); SARS-CoV-2 RNA PCR Negative (Negative)
[2023-12-19] MEDS: CEFEPIME 2 GM/NS 50 ML 2 GM/50 ML BAG IVPB (18:10)
[2023-12-19] MEDS: PANTOPRAZOLE SODIUM IV 40 MG VIAL IV PUSH (18:10)
[2023-12-19] MEDS: NOREPINEPHRINE 8 MG/D5W 250 ML 8 MG/250 ML BAG 9.38 MG IV CONT (19:35)
[2023-12-19] MEDS: ACETAMINOPHEN 650 MG SUPPOSITORY RECTAL (20:24)
[2023-12-19 21:07] LABS: Lactic Acid Reflex 1.3 mmol/L (0.7-2.0)
[2023-12-19 21:09] LABS: INR 2.2; Prothrombin Time 26.4 Seconds (11.1-14.7)
[2023-12-19 21:33] LABS: Amphetamine Screen Urine Negative (Negative); Barbiturate Screen Urine Negative (Negative); Benzodiazepines Screen Urine Positive (Negative); Cannabinoid Screen Urine Negative (Negative); Cocaine Screen Urine Negative (Negative); Methadone Screen Urine Negative (Negative); Opiate Screen Urine Negative (Negative); Phencyclidine Screen Urine Negative (Negative)
[2023-12-19 21:35] LABS: Procalcitonin 1.3 ng/mL
[2023-12-19 22:03] LABS: MRSA (PCR) DETECTED (NOT DETECTE)
[2023-12-19] MEDS: SODIUM CHLORIDE 0.9% IV 1,000 ML 999 ML IV CONT ×2 (22:03→23:08)
[2023-12-19] MEDS: PHENYLEPHRINE 1,000 MCG/10 ML SYRINGE 100 MCG IV PUSH ×2 (22:18→23:25)
[2023-12-19] MEDS: LORazepam INJ (*CRX) 2 MG/ML VIAL 1 MG IV PUSH (22:19)
[2023-12-19] MEDS: PHENYLEPHRINE 1,000 MCG/10 ML SYRINGE 200 MCG IV PUSH (23:10)
[2023-12-20] VITALS (20 sets, daily range): BP systolic 97–174; BP diastolic 39–107; PULSE 77–96; RESP 7–17; TEMP 35.6–36.9; O2SAT 93–100; BMI 50.8
[2023-12-20] MEDS: PHENYLEPHRINE 1,000 MCG/10 ML SYRINGE 100 MCG IV PUSH (00:28)
[2023-12-20] MEDS: VANCOMYCIN 1,500 MG/NS 500 ML 1,500 MG/500 ML BAG 250 MG IVPB (00:52)
[2023-12-20] MEDS: ARTIFICIAL TEARS OPHTH SOLN 15 ML BOTTLE 1 DROP EACH EYE ×4 (00:59→17:02)
[2023-12-20 01:34] LABS: Glucose Point of Care 195 mg/dl (65-105)
[2023-12-20] MEDS: metroNIDAZOLE 500 MG/ISO 100ML 500 MG/100 ML BAG 100 MG IVPB ×3 (01:37→17:02)
[2023-12-20] MEDS: methylPREDNISolone SOD SUCC 40 MG VIAL IV PUSH ×2 (01:40→04:10)
[2023-12-20] MEDS: ALBUMIN HUMAN 25% 25 GM/100 ML 100 ML IVPB ×2 (03:05→05:43)
[2023-12-20 04:11] LABS: Hematocrit 26.5 % (37.0-47.0); Hemoglobin 7.1 g/dL (12.0-15.0); Mean Corpuscular HGB Conc 26.8 g/dl (32-36); Mean Corpuscular Hemoglobin 26.2 pg (26-34); Mean Corpuscular Volume 97.8 fl (80-100); Mean Platelet Volume 9.9 fl (7.4-10.4); Platelet Count Result 204 k/mm3 (150-375); Red Blood Count 2.71 M/mm3 (4.2-5.4); Red Cell Distribution Width 15.1 % (11.5-14.5); White Blood Count 21.2 K/mm3 (4.5-10.0)
[2023-12-20 04:14] LABS: Alveolar/Arterial O2 Gradient 41.3 mmHg; Base Excess ABG -0.4 mEq/l (+/-2.0); Fractional Inspired Oxygen 36 %; HCO3 ABG 25.1 mEq/l (22.0-26.0); Oxygen Content ABG 11.2 %vol (16.0-22.0); Oxyhemoglobin 98.3 % THb (90.0-100.0); PO2 ABG 163.2 mmHg (80.0-100.0); PO2 FiO2 Ratio Arterial Blood 4.53 %; pH ABG 7.364 (7.350-7.450)
[2023-12-20 04:16] LABS: Device NASAL CANNULA; Modified Allen's Test Pass; Site Drawn RIGHT RADIAL; Total Hemoglobin 7.8 g/dL (12.0-18.0)
[2023-12-20 04:24] LABS: Lactic Acid Reflex 0.7 mmol/L (0.7-2.0)
[2023-12-20 04:28] LABS: Alanine Aminotransferase 9 U/L (6-35); Albumin Level 3.1 g/dL (3.5-5.1); Alkaline Phosphatase 107 U/L (38-126); Anion Gap 13 mmol/L (4-12); Aspartate Amino Transferase 16 U/L (14-36); Bilirubin,Total 0.9 mg/dL (0.2-1.3); Blood Urea Nitrogen 47 mg/dL (7-17); Carbon Dioxide 21 mmol/L (22-30); Chloride 108 mmol/L (98-107); Estimated Glomerular Filt Rate 40; Glucose 224 mg/dL (65-110); Magnesium 2.4 mg/dL (1.6-2.3); Potassium 4.6 mmol/L (3.4-5.0); Sodium 142 mmol/L (137-145)
[2023-12-20 04:41] LABS: Band Neutrophils Percent 7 % (0-6); Lymphocytes Absolute Manual 0.84 K/mm3 (1.1-4.5); Monocytes Absolute Manual 0.42 K/mm3 (0.1-0.90); Monocytes Percent Manual 2 % (3-9); Neutrophils Absolute Manual 19.92 K/mm3 (1.7-7.2); Neutrophils Percent Manual 87 % (46-73); Total Cells Counted 100
[2023-12-20 04:42] LABS: Platelet Estimate Adequate (Adequate); Schistocytes None Seen
[2023-12-20 04:43] LABS: Procalcitonin 1.5 ng/mL
[2023-12-20] MEDS: CEFEPIME 2 GM/NS 50 ML 2 GM/50 ML BAG IVPB ×2 (05:44→17:00)
[2023-12-20] MEDS: INSULIN ASPART (*BKC) 100 UNITS/ML SUB-Q ×4 (08:43→20:11)
[2023-12-20] MEDS: PANTOPRAZOLE SODIUM IV 40 MG VIAL IV PUSH (08:46)
[2023-12-20] MEDS: ENOXAPARIN 40 MG/0.4 ML SYRINGE SUB-Q (08:51)
[2023-12-20] MEDS: TOLNAFTATE 1% POWDER 45 GM BTL 1 APPLIC TOPICAL ×2 (08:59→20:18)
[2023-12-20] MEDS: SODIUM BICARBONATE 8.4% 100 MEQ in WATER, STERILE FOR INJECTION 1,000 ML IV CONT (09:05)
[2023-12-20] MEDS: ALBUMIN HUMAN 5% 25 GM/500 ML BTL IV CONT (09:05)
[2023-12-20] MEDS: ASCORBIC ACID 500 MG TABLET PO (10:22)
[2023-12-20] MEDS: LORATADINE 10 MG TABLET PO (10:22)
[2023-12-20] MEDS: levETIRAcetam 500 MG TABLET PO ×2 (10:22→20:14)
[2023-12-20] MEDS: DOCUSATE SODIUM 100 MG CAPSULE PO (10:22)
[2023-12-20] MEDS: FERROUS SULFATE 325 MG TABLET DR PO ×2 (10:22→17:01)
[2023-12-20 10:29] LABS: Glucose Point of Care 237 mg/dl (65-105)
--- NOTE | 2023-12-20 10:42 | WPDCNINT ---
Assessment and Plan Assessment and plan (1) Sepsis: Code(s): A41.9 - Sepsis, unspecified organism Status: Acute Assessment and Plan: Patient has sepsis secondary to UTI, abdominal wall cellulitis, septic arthritis of pubic symphysis and abdominal abscess Blood urine cultures have been sent and are pending Antibiotic treatment has been brought and patient is currently on vancomycin cefepime and Flagyl General surgery has been consulted and will consult IR for ultrasound guided drainage of abdominal abscess Her lactic acid level has normalized and patient had a transient episode of hypotension which has at this time resolved and patient is now off of Tony-Synephrine Physician was unable to place IJ central venous catheter due to SIRS short neck morbid obesity and body habitus. Femoral site is not adequate due to intertrigo hence will obtain PICC line for central venous access as patient will need antibiotics for long duration even if she does not need pressors at this time (2) Abdominal abscess: Status: Acute Assessment and Plan: See above (3) Chronic indwelling Jenkins catheter: Code(s): Z97.8 - Presence of other specified devices Status: Acute Assessment and Plan: Jenkins was changed by Urology (4) UTI (urinary tract infection): Code(s): N39.0 - Urinary tract infection, site not specified Status: Acute Assessment and Plan: See above (5) Cellulitis of abdominal wall: Code(s): L03.311 - Cellulitis of abdominal wall Status: Acute Assessment and Plan: See above (6) Hypotension: Code(s): I95.9 - Hypotension, unspecified Status: Acute Assessment and Plan: Patient had transient episode of hypotension yesterday which resolved with fluids. She was on Tony-Synephrine overnight which has been weaned off at this time LA is normal at this time Monitor closely (7) Acute metabolic encephalopathy: Code(s): G93.41 - Metabolic encephalopathy Status: Acute Assessment and Plan: Patient likely has toxic metabolic encephalopathy secondary to sepsis and multiple sedative medication that she was on Meds have been discontinued Head CT was negative TSH was normal ABG reviewed and does not explained drowsiness Will check ammonia (8) Acute on chronic kidney failure: Code(s): N17.9 - Acute kidney failure, unspecified; N18.9 - Chronic kidney disease, unspecified Status: Acute Assessment and Plan: Secondary to hypotension, sepsis and patient also received urecontrast for CT scan Cautious IV fluids as patient is overall volume overloaded Maintain mean arterial pressure Check urine electrolytes and CK No obstruction stones or hydronephrosis on the CT scan (9) Diabetes mellitus: Qualifiers: Diabetes mellitus complication status: without complication Diabetes mellitus penitentiary insulin use: with parts counterman use Diabetes mellitus type: type 2 Qualified Code(s): E11.9 - Type 2 diabetes mellitus without complications; Z79.4 - [facility] (current) use of insulin Code(s): E11.9 - Type 2 diabetes mellitus without complications Status: Chronic Assessment and Plan: Continue sliding scale insulin Will decrease dose of Lantus at this time due to decreased p.o. intake Will discontinue steroids (10) Anasarca: Code(s): R60.1 - Generalized edema Status: Acute Assessment and Plan: Patient has overall volume overload with lower extremity edema. Cautious IV fluids Patient receiving albumin instead of crystalloids (11) History of DVT (deep vein thrombosis): Code(s): Z86.718 - Personal history of other venous thrombosis and embolism Status: Acute Assessment and Plan: Patient has history of DVT and is on Eliquis. Eliquis was held for procedures Will restart anticoagulation after invasive procedures (12) Sleep apnea: Code(s): G47.30 - Sleep apnea, unspecified
--- NOTE | 2023-12-20 11:18 | PC.NURSE ---
Discussed patient lidocaine allergy with Mitchell Brooks, Pharmacist and Fátima Mendoza Rn. ok to give lidocaine at this time. Patient already received steroid treatment prior to change of shift.
[2023-12-20] MEDS: INSULIN GLARGINE (*BKC) 100 UNITS/ML 15 UNITS SUB-Q (12:06)
[2023-12-20] MEDS: LIDOCAINE HCL 1% PF INJ 5 ML VIAL INFILTRATE (12:06)
[2023-12-20 12:22] LABS: Glucose Point of Care 256 mg/dl (65-105)
[2023-12-20 12:26] LABS: Creatine Kinase 30 U/L (30-135)
[2023-12-20 12:27] LABS: Ammonia < 9 umol/L (9-30)
[2023-12-20] MEDS: CENTRAL LINE FLUSH 10 ML IV PUSH ×2 (14:00→20:18)
--- NOTE | 2023-12-20 14:23 | PM.IMPN ---
Progress Note: A&P Assessment and Plan (1) Chronic indwelling Jenkins catheter: Code(s): Z97.8 - Presence of other specified devices Status: Acute (2) Anemia: Code(s): D64.9 - Anemia, unspecified Status: Acute (3) Acute metabolic encephalopathy: Code(s): G93.41 - Metabolic encephalopathy Status: Acute (4) UTI (urinary tract infection): Code(s): N39.0 - Urinary tract infection, site not specified Status: Acute (5) Sepsis: Code(s): A41.9 - Sepsis, unspecified organism Status: Acute Plan 48-year-old female is a resident of [facility] with past medical history morbid obesity, bipolar disorder, chronic indwelling Jenkins, seizure disorder, hypertension, iron deficiency anemia, hyperlipidemia, insulin-dependent diabetes mellitus, history of DVT on warfarin, COPD, EAMON, diastolic heart failure, status post permanent pacemaker, CKD stage IIIA, depression, eczema, recurrent UTI and intertrigo, history of hyperkalemia, history of cellulitis presents with altered mental status. Acute encephalopathy -on 12/18 she was very lethargic and transfer to ICU in guarded condition. Her encephalopathy has now resolved. Unclear if this was due to sepsis/tramadol administration x1/hypoxia/hypotension/controlled medications/? -continue to monitor in the intensive care unit. Payment Analyst on consult. -ABG without hypercapnia or severe acid-base disturbance. Continue CPAP nightly -CT brain without contrast, no acute abnormality. -discontinue tramadol p.r.n.. Avoid sedatives and narcotics. Home medication trazodone 100 mg p.o. q.h.s. also on hold. Would not restart this unless absolutely indicated. -Keppra level pending, ammonia level normal, vitamin B12 level normal, check TSH. Salicylate and acetaminophen levels within normal limits. Urine drug screen positive for benzodiazepine, she received this earlier in the admission. Severe sepsis -WBC increasing from 14.7-16 0.7-21.2. Procalcitonin 1.5. However, she appears clinically much better. -CT chest abdomen pelvis on 12/18 demonstrating 6.2 cm fluid/gas collection extending from the pubic symphysis, possible abscess. Dermal thickening and subcutaneous stranding in the lower abdomen indicating possible abdominal wall cellulitis. -12/18 ceftriaxone escalated to vancomycin Flagyl and cefepime. -follow-up blood culture. Initial urinalysis on admission medicating infectious state however urine culture negative. Reji urine culture pending. General surgery consulted, anticipate percutaneous abscess drainage with Radiology on Thursday. -lactic acid level normal. Required phenylephrine overnight 12/18 has now been discontinued. She received 2 L normal saline bolus at that time. Acute hypoxic respiratory failure -resolved. Quad viral screen negative. No discernible etiology on CT of chest. Could have been due to the patient's lethargy or fluid overload. Cautious with fluids, she has anasarca. She did receive albumin infusion x1. -D-dimer elevated. CTA chest was suboptimal study but did not reveal a central pulmonary embolus. Patient received Solu-Medrol for IV contrast allergy premedication. She did not have any reaction. Discontinue steroid. Complicated UTI due to chronic indwelling Jenkins catheter -urinalysis on admission appears to indicate infection however urine culture grown mixed krishna. -recheck urine culture from the Jenkins bag. Pending -DC ceftriaxone which was started on admission and start vancomycin and cefepime due to increasing leukocytosis, worsening clinical status and worsening sepsis. -pending blood cultures -urology consulted since the replacement of her Jenkins catheter was difficult in the ER. Currently she is draining dark yellow fluid. Nurse reports there is leakage around the insertion site and Urology has suggested oxybutynin to decrease bladder spasms. For considering her acute encephalopathy we are going to hold that for now. Urology reports she is
[2023-12-20 16:38] LABS: Glucose Point of Care 331 mg/dl (65-105)
[2023-12-20 17:01] LABS: Creatinine Urine 63.6 mg/dL
[2023-12-20] MEDS: ACETAMINOPHEN 325 MG TABLET 650 MG PO (17:01)
[2023-12-20 17:02] LABS: Sodium Urine Random 7 meq/L
[2023-12-20 20:43] LABS: Glucose Point of Care 302 mg/dl (65-105)
[2023-12-20] MEDS: MORPHINE SULFATE (*CRX) 2 MG/ML INJ IV PUSH (22:06)
[2023-12-21] VITALS (25 sets, daily range): BP systolic 133–165; BP diastolic 75–95; PULSE 75–111; RESP 6–20; TEMP 36–36.4; O2SAT 92–100
[2023-12-21] MEDS: ARTIFICIAL TEARS OPHTH SOLN 15 ML BOTTLE 1 DROP EACH EYE ×4 (00:41→17:03)
[2023-12-21] MEDS: INSULIN ASPART (*BKC) 100 UNITS/ML SUB-Q ×6 (00:46→20:59)
[2023-12-21] MEDS: VANCOMYCIN 1,500 MG/NS 500 ML 1,500 MG/500 ML BAG 250 MG IVPB (00:46)
[2023-12-21] MEDS: metroNIDAZOLE 500 MG/ISO 100ML 500 MG/100 ML BAG 100 MG IVPB ×3 (01:00→20:43)
[2023-12-21 01:04] LABS: Glucose Point of Care 325 mg/dl (65-105)
[2023-12-21 04:42] LABS: Glucose Point of Care 314 mg/dl (65-105)
[2023-12-21] MEDS: CEFEPIME 2 GM/NS 50 ML 2 GM/50 ML BAG IVPB ×2 (05:05→17:03)
[2023-12-21] MEDS: CENTRAL LINE FLUSH 10 ML IV PUSH ×3 (05:06→21:01)
[2023-12-21 05:09] LABS: Hematocrit 23.6 % (37.0-47.0); Mean Corpuscular HGB Conc 28.4 g/dl (32-36); Mean Corpuscular Hemoglobin 26.5 pg (26-34); Mean Corpuscular Volume 93.3 fl (80-100); Mean Platelet Volume 9.9 fl (7.4-10.4); Platelet Count Result 169 k/mm3 (150-375); Red Blood Count 2.53 M/mm3 (4.2-5.4); Red Cell Distribution Width 14.6 % (11.5-14.5); White Blood Count 11.8 K/mm3 (4.5-10.0)
[2023-12-21 05:15] LABS: Hemoglobin 6.7 g/dL (12.0-15.0)
[2023-12-21 05:19] LABS: Alanine Aminotransferase 11 U/L (6-35); Albumin Level 3.7 g/dL (3.5-5.1); Alkaline Phosphatase 97 U/L (38-126); Anion Gap 8 mmol/L (4-12); Aspartate Amino Transferase 17 U/L (14-36); Bilirubin,Total 0.7 mg/dL (0.2-1.3); Blood Urea Nitrogen 53 mg/dL (7-17); Calcium 7.7 mg/dL (8.4-10.2); Carbon Dioxide 28 mmol/L (22-30); Chloride 100 mmol/L (98-107); Estimated Glomerular Filt Rate 37; Glucose 318 mg/dL (65-110); Magnesium 2.3 mg/dL (1.6-2.3); Potassium 3.6 mmol/L (3.4-5.0); Sodium 136 mmol/L (137-145)
[2023-12-21 06:51] LABS: INR 2.3
[2023-12-21 07:49] LABS: Glucose Point of Care 293 mg/dl (65-105)
--- NOTE | 2023-12-21 08:30 | WPDINTPN ---
Progress Note: A&P Assessment and Plan (1) Sepsis: Code(s): A41.9 - Sepsis, unspecified organism Status: Acute Assessment and Plan: Patient has sepsis secondary to UTI, abdominal wall cellulitis, septic arthritis of pubic symphysis and abdominal abscess Blood urine cultures have been sent and are pending Antibiotic treatment has been brought and patient is currently on vancomycin cefepime and Flagyl General surgery has been consulted and IR consulted for for ultrasound/CT guided drainage of abdominal abscess which is scheduled for today Her lactic acid level has normalized and patient had a transient episode of hypotension which has at this time resolved and patient is now off of Tony-Synephrine 12/19 Physician was unable to place IJ central venous catheter due to SIRS short neck morbid obesity and body habitus. Femoral site is not adequate due to intertrigo hence will PICC line was obtained for central venous access as patient will need antibiotics for long duration even if she does not need pressors at this time Continue the vancomycin, Flagyl and cefepime (2) Abdominal abscess: Status: Acute Assessment and Plan: See above (3) Chronic indwelling Jenkins catheter: Code(s): Z97.8 - Presence of other specified devices Status: Acute Assessment and Plan: Jenkins was changed by Urology (4) UTI (urinary tract infection): Code(s): N39.0 - Urinary tract infection, site not specified Status: Acute Assessment and Plan: See above (5) Cellulitis of abdominal wall: Code(s): L03.311 - Cellulitis of abdominal wall Status: Acute Assessment and Plan: See above (6) Hypotension: Code(s): I95.9 - Hypotension, unspecified Status: Acute Assessment and Plan: Patient had transient episode of hypotension yesterday which resolved with fluids. She was on Tony-Synephrine for few hours which has been weaned off at this time and patient has been off of vasopressors for more than 24 hours LA is normal at this time Monitor (7) Acute metabolic encephalopathy: Code(s): G93.41 - Metabolic encephalopathy Status: Acute Assessment and Plan: Patient likely has toxic metabolic encephalopathy secondary to sepsis and multiple sedative medication that she was on Meds have been discontinued Head CT was negative TSH was normal ABG reviewed and does not explained drowsiness Normal ammonia Now alert awake (8) Acute on chronic kidney failure: Code(s): N17.9 - Acute kidney failure, unspecified; N18.9 - Chronic kidney disease, unspecified Status: Acute Assessment and Plan: Secondary to hypotension, sepsis and patient also received contrast for CT scan Urine electrolytes suggest prerenal Patient received Cautious IV fluids as patient is overall volume overloaded Maintain mean arterial pressure normal CK No obstruction stones or hydronephrosis on the CT scan Consult nephrology (9) Diabetes mellitus: Qualifiers: Diabetes mellitus complication status: without complication Diabetes mellitus assistant terminal manager insulin use: with assistant terminal manager use Diabetes mellitus type: type 2 Qualified Code(s): E11.9 - Type 2 diabetes mellitus without complications; Z79.4 - [facility] (current) use of insulin Code(s): E11.9 - Type 2 diabetes mellitus without complications Status: Chronic Assessment and Plan: Continue sliding scale insulin Increase Lantus Now off of steroids (10) Anasarca: Code(s): R60.1 - Generalized edema Status: Acute Assessment and Plan: Patient has overall volume overload with lower extremity edema. She received cautious amount of IV fluids. Will hold further fluids Patient patient also received albumin instead of crystalloids (11) History of DVT (deep vein thrombosis): Code(s): Z86.718 - Personal history of other venous thrombosis and embolism Status: Acute Assessment and P
[2023-12-21] MEDS: PANTOPRAZOLE SODIUM IV 40 MG VIAL IV PUSH (08:31)
[2023-12-21] MEDS: levETIRAcetam 500 MG TABLET PO ×2 (08:31→20:57)
[2023-12-21] MEDS: INSULIN GLARGINE (*BKC) 100 UNITS/ML 20 UNITS SUB-Q (08:33)
[2023-12-21] MEDS: TOLNAFTATE 1% POWDER 45 GM BTL 1 APPLIC TOPICAL (08:38)
[2023-12-21] MEDS: SODIUM CHLORIDE 0.9% IV 250 ML 30 ML IV CONT (09:15)
--- NOTE | 2023-12-21 09:36 | PM.CNGS ---
Assessment and Plan Assessment and plan (1) Septic arthritis of pelvic region: Code(s): M00.9 - Pyogenic arthritis, unspecified Status: Acute Assessment and Plan: CT showed findings of septic arthritis of the pubic symphysis with an adjacent 6 cm abscess. This could be the source of her sepsis. We recommend proceeding with percutaneous drainage of the pubic abscess in Radiology and continue IV antibiotics. Cultures will be obtained. In regards to the septic arthritis of the pubic symphysis, we would recommend transfer to a tertiary care facility that would have Infectious Disease and she could also be evaluated by an security compliance specialist who can evaluate the patient. I discussed this with the Respiratory Coordinator and Hospitalist. The patient will be transferred out of ICU today as she has remained stable off of vasopressors and is improving with medical management. (2) Abdominal abscess: Status: Acute Assessment and Plan: Proceed with percutaneous drainage of the abscess in Radiology. Continue antibiotics. During my exam, there was a moderate to large amount of purulent drainage noted on her pad, but I was unable to find a source for this. There were no open draining wounds or obvious fluctuant areas that I was able to confirm where the drainage was coming from. This was even with help from nursing turning and moving the patient to get a thorough exam. Her exam is difficult due to her body habitus and chronic skin changes at her panniculus, above the pubic symphysis, and bilateral medial upper thighs. (3) Sepsis: Code(s): A41.9 - Sepsis, unspecified organism Status: Acute Assessment and Plan: Secondary to UTI, septic arthritis of pubic symphysis with abscess, vs combination. Blood cx pending. (4) UTI (urinary tract infection): Code(s): N39.0 - Urinary tract infection, site not specified Status: Acute Assessment and Plan: Chronic garner catheter, which was exchanged by Urology on admission. Continue antibiotics. (5) Acute metabolic encephalopathy: Code(s): G93.41 - Metabolic encephalopathy Status: Acute Assessment and Plan: Improving. (6) Acute on chronic kidney failure: Qualifiers: Acute renal failure type: unspecified Chronic kidney disease stage: unspecified stage Qualified Code(s): N17.9 - Acute kidney failure, unspecified; N18.9 - Chronic kidney disease, unspecified Code(s): N17.9 - Acute kidney failure, unspecified; N18.9 - Chronic kidney disease, unspecified Status: Acute (7) Diabetes mellitus: Qualifiers: Diabetes mellitus type: type 2 Diabetes mellitus half-way insulin use: with half-way use Diabetes mellitus complication status: without complication Qualified Code(s): E11.9 - Type 2 diabetes mellitus without complications; Z79.4 - combatant diver qualified (current) use of insulin Code(s): E11.9 - Type 2 diabetes mellitus without complications Status: Chronic (8) Anasarca: Code(s): R60.1 - Generalized edema Status: Acute (9) History of DVT (deep vein thrombosis): Code(s): Z86.718 - Personal history of other venous thrombosis and embolism Status: Acute Assessment and Plan: Reason for her anticoagulation. (10) Obstructive sleep apnea: Code(s): G47.33 - Obstructive sleep apnea (adult) (pediatric) Status: Acute (11) Chronic anticoagulation: Code(s): Z79.01 - [facility] (current) use of anticoagulants Status: Acute Assessment and Plan: Rhonda is on hold for procedure. (12) Anemia: Code(s): D64.9 - Anemia, unspecified Status: Acute Assessment and Plan: Chronic anemia with her hgb drifting down over the past 2 days to 6.7. Receiving PRBC transfusion today, monitor labs, no obvious signs of active bleeding. Plan I have discussed the patient's case and plan of care with Dr. Pike. History of Present Illness Consult details Cons
--- NOTE | 2023-12-21 10:40 | P.CONNP_ITS ---
Assessment and Plan Assessment and plan (1) JAYESH (acute kidney injury): Code(s): N17.9 - Acute kidney failure, unspecified Status: Acute Assessment and Plan: * presumably related to acute illness/infection/hemodynamic instability along with contrast exposure * kidney normal by CT imaging to date * check urine studies and CPK * follow repeat labs and UOP (2) Stage 3a chronic kidney disease: Code(s): N18.31 - Chronic kidney disease, stage 3a Status: Chronic Assessment and Plan: * baseline creatinine seems to run around 1.0 - 1.3mg/dl * she tends to fluctuate more so whenever she is hospitalized or acutely ill * presumably secondary to CHF, HTN, DM, vascular disease, EAMON, and obesity (3) Sepsis: Code(s): A41.9 - Sepsis, unspecified organism Status: Acute Assessment and Plan: * multifactorial sources: * urinary tract infection * abdominal wall cellulitis * septic arthrtiis of pubic symphysis * abdominal abscess * follow culture data * on broad spectrum antibiotic therapy * Surgery following * off vasopressors at this time * continue supportive therapy (4) Abdominal abscess: Status: Acute Assessment and Plan: * as noted by imaging * see #3 (5) UTI (urinary tract infection): Code(s): N39.0 - Urinary tract infection, site not specified Status: Acute Assessment and Plan: * admission UA suspicions * garner catheter changed out by Urology * see #3 (6) Cellulitis of abdominal wall: Code(s): L03.311 - Cellulitis of abdominal wall Status: Acute Assessment and Plan: * as noted by imaging * see #3 (7) Altered mental status: Code(s): R41.82 - Altered mental status, unspecified Status: Acute Assessment and Plan: * appears to be resolving * suspect toxic metabolic encephalopathy secondary to sepsis and sedation * head CT negative * normal TSH and ammonia * follow mentation (8) Anemia: Code(s): D64.9 - Anemia, unspecified Status: Acute Assessment and Plan: * due to underlying CKD + acute illness * follow trend of H/H * PRBC transfusion per protocol (9) Diabetes: Code(s): E11.9 - Type 2 diabetes mellitus without complications Status: Chronic Assessment and Plan: * follow accu-cheks * glycemic control per intensivists/hospitalists I will continue follow the patient with you while she remains hospitalized and make further recommendations as deemed necessary. Thank you for allowing me to participate in care this patient. History of Present Illness Reason for Consult Consult date: 12/21/23 Reason for consult: acute renal failure (on chronic kidney disease) Chief Complaint Chief complaint: UTI, Dehydration History of Present Illness Narrative: Most of the information that I have obtained is from review of the electronic medical record as well as discussion with the physician / nurses involved in the patient's care as well as my personal recollection of taking care of the patient in the past as is difficult to get a full and complete history from the patient due to her altered mentation as well as known cognitive deficits. The patient is a 48-year-old female with a past medical history as outlined below who presented to [facility] Emergency Room several days ago for altered mental status. Unfortunately, I am unclear exactly how long her altered mentation had been present before the nursing staff
--- NOTE | 2023-12-21 10:40 | PM.CNNEP ---
Assessment and Plan Assessment and plan (1) JAYESH (acute kidney injury): Code(s): N17.9 - Acute kidney failure, unspecified Status: Acute Assessment and Plan: presumably related to acute illness/infection/hemodynamic instability along with contrast exposure kidney normal by CT imaging to date check urine studies and CPK follow repeat labs and UOP (2) Stage 3a chronic kidney disease: Code(s): N18.31 - Chronic kidney disease, stage 3a Status: Chronic Assessment and Plan: baseline creatinine seems to run around 1.0 - 1.3mg/dl she tends to fluctuate more so whenever she is hospitalized or acutely ill presumably secondary to CHF, HTN, DM, vascular disease, EAMON, and obesity (3) Sepsis: Code(s): A41.9 - Sepsis, unspecified organism Status: Acute Assessment and Plan: multifactorial sources: urinary tract infection abdominal wall cellulitis septic arthrtiis of pubic symphysis abdominal abscess follow culture data on broad spectrum antibiotic therapy Surgery following off vasopressors at this time continue supportive therapy (4) Abdominal abscess: Status: Acute Assessment and Plan: as noted by imaging see #3 (5) UTI (urinary tract infection): Code(s): N39.0 - Urinary tract infection, site not specified Status: Acute Assessment and Plan: admission UA suspicions garner catheter changed out by Urology see #3 (6) Cellulitis of abdominal wall: Code(s): L03.311 - Cellulitis of abdominal wall Status: Acute Assessment and Plan: as noted by imaging see #3 (7) Altered mental status: Code(s): R41.82 - Altered mental status, unspecified Status: Acute Assessment and Plan: appears to be resolving suspect toxic metabolic encephalopathy secondary to sepsis and sedation head CT negative normal TSH and ammonia follow mentation (8) Anemia: Code(s): D64.9 - Anemia, unspecified Status: Acute Assessment and Plan: due to underlying CKD + acute illness follow trend of H/H PRBC transfusion per protocol (9) Diabetes: Code(s): E11.9 - Type 2 diabetes mellitus without complications Status: Chronic Assessment and Plan: follow accu-cheks glycemic control per intensivists/hospitalists I will continue follow the patient with you while she remains hospitalized and make further recommendations as deemed necessary. Thank you for allowing me to participate in care this patient. History of Present Illness Reason for Consult Consult date: 12/21/23 Reason for consult: acute renal failure (on chronic kidney disease) Chief Complaint Chief complaint: UTI, Dehydration History of Present Illness Narrative: Most of the information that I have obtained is from review of the electronic medical record as well as discussion with the physician / nurses involved in the patient's care as well as my personal recollection of taking care of the patient in the past as is difficult to get a full and complete history from the patient due to her altered mentation as well as known cognitive deficits. The patient is a 48-year-old female with a past medical history as outlined below who presented to [facility] Emergency Room several days ago for altered mental status. Unfortunately, I am unclear exactly how long her altered mentation had been present before the nursing staff at her facility center to the emergency room for further assessment. Workup and evaluation emergency room demonstrated the patient to be hemodynamically stable but quite confused. Her urinalysis demonstrated numerous white blood cells with concern for possible urinary tract infection. She does have a chronic Garner catheter in place and this apparently replaced in the ER by Urology. Further complicating matters was that she was found to have a fungal infection and associat
[2023-12-21 11:31] LABS: Glucose Point of Care 272 mg/dl (65-105)
--- NOTE | 2023-12-21 12:00 | PC.NURSE ---
Pt to CT for drain placement.
--- NOTE | 2023-12-21 13:12 | PC.NURSE ---
Pt returned from CT after drain placement via bed. No issues noted
[2023-12-21 14:58] LABS: Levetiracetam Keppra 62.2 mcg/mL (6.0-46.0)
[2023-12-21 15:30] LABS: Glucose Point of Care 236 mg/dl (65-105)
--- NOTE | 2023-12-21 15:30 | PC.NURSE ---
Updated Dr. Cruz with pt's 1600 blood sugar of 236. New order to start 15 units Lanuts SQ QHS starting tonight.
--- NOTE | 2023-12-21 16:14 | PC.NURSE ---
This patient, Valerie Nguyen, was transferred to [[facility] ] on 12/21/23 at 1545. Personal belongings sent with patient. Report given to [ TYRELL Horner]. Appropriate documentation sent with patient.
[2023-12-21 16:49] LABS: Glucose Point of Care 214 mg/dl (65-105)
[2023-12-21] MEDS: FERROUS SULFATE 325 MG TABLET DR PO (17:03)
[2023-12-21 20:42] LABS: Glucose Point of Care 245 mg/dl (65-105)
[2023-12-21] MEDS: INSULIN GLARGINE (*BKC) 100 UNITS/ML 15 UNITS SUB-Q (20:58)
[2023-12-22] VITALS (16 sets, daily range): BP systolic 122–141; BP diastolic 51–78; PULSE 81–112; RESP 19–20; TEMP 35.7–36.6; O2SAT 94–99
[2023-12-22] MEDS: metroNIDAZOLE 500 MG/ISO 100ML 500 MG/100 ML BAG 100 MG IVPB ×3 (00:59→17:00)
[2023-12-22] MEDS: VANCOMYCIN 1,500 MG/NS 500 ML 1,500 MG/500 ML BAG 250 MG IVPB (00:59)
[2023-12-22] MEDS: CENTRAL LINE FLUSH 10 ML IV PUSH ×3 (05:11→20:15)
[2023-12-22] MEDS: CEFEPIME 2 GM/NS 50 ML 2 GM/50 ML BAG IVPB ×2 (05:11→17:00)
[2023-12-22 06:19] LABS: Hematocrit 28.6 % (37.0-47.0); Hemoglobin 8.5 g/dL (12.0-15.0); Mean Corpuscular HGB Conc 29.7 g/dl (32-36); Mean Corpuscular Hemoglobin 26.8 pg (26-34); Mean Corpuscular Volume 90.2 fl (80-100); Mean Platelet Volume 10.4 fl (7.4-10.4); Platelet Count Result 204 k/mm3 (150-375); Red Blood Count 3.17 M/mm3 (4.2-5.4); Red Cell Distribution Width 14.6 % (11.5-14.5); White Blood Count 15.1 K/mm3 (4.5-10.0)
[2023-12-22 06:30] LABS: Alanine Aminotransferase 11 U/L (6-35); Albumin Level 3.3 g/dL (3.5-5.1); Alkaline Phosphatase 109 U/L (38-126); Anion Gap 5 mmol/L (4-12); Aspartate Amino Transferase 21 U/L (14-36); Bilirubin,Total 0.7 mg/dL (0.2-1.3); Blood Urea Nitrogen 55 mg/dL (7-17); Calcium 7.8 mg/dL (8.4-10.2); Carbon Dioxide 29 mmol/L (22-30); Chloride 101 mmol/L (98-107); Estimated Glomerular Filt Rate 40; Glucose 255 mg/dL (65-110); Magnesium 2.2 mg/dL (1.6-2.3); Potassium 3.3 mmol/L (3.4-5.0); Sodium 135 mmol/L (137-145)
[2023-12-22 07:40] LABS: Glucose Point of Care 262 mg/dl (65-105)
[2023-12-22] MEDS: ASCORBIC ACID 500 MG TABLET PO (08:05)
[2023-12-22] MEDS: DOCUSATE SODIUM 100 MG CAPSULE PO (08:06)
[2023-12-22] MEDS: FERROUS SULFATE 325 MG TABLET DR PO (08:06)
[2023-12-22] MEDS: levETIRAcetam 500 MG TABLET PO ×2 (08:06→20:15)
[2023-12-22] MEDS: PANTOPRAZOLE SODIUM IV 40 MG VIAL IV PUSH (08:06)
[2023-12-22] MEDS: LORATADINE 10 MG TABLET PO (08:06)
[2023-12-22] MEDS: INSULIN GLARGINE (*BKC) 100 UNITS/ML 20 UNITS SUB-Q (08:08)
[2023-12-22] MEDS: TOLNAFTATE 1% POWDER 45 GM BTL 1 APPLIC TOPICAL ×2 (08:09→20:14)
[2023-12-22] MEDS: INSULIN ASPART (*BKC) 100 UNITS/ML SUB-Q ×3 (08:09→17:01)
[2023-12-22 09:10] LABS: Creatinine Urine 42.6 mg/dL; Total Protein Urine Random 102 mg/dL; Ur Ttl Prot Creatinine Ratio 2.39 mg/mg (0-0.20)
--- NOTE | 2023-12-22 10:23 | P.PNNP_ITS ---
Progress Note: A&P Assessment and Plan (1) JAYESH (acute kidney injury): Code(s): N17.9 - Acute kidney failure, unspecified Status: Acute Assessment and Plan: * presumably related to acute illness/infection/hemodynamic instability along with contrast exposure * kidney normal by CT imaging to date * check urine studies and CPK * follow repeat labs and UOP (2) Stage 3a chronic kidney disease: Code(s): N18.31 - Chronic kidney disease, stage 3a Status: Chronic Assessment and Plan: * baseline creatinine seems to run around 1.0 - 1.3mg/dl * she tends to fluctuate more so whenever she is hospitalized or acutely ill * presumably secondary to CHF, HTN, DM, vascular disease, EAMON, and obesity (3) Sepsis: Code(s): A41.9 - Sepsis, unspecified organism Status: Acute Assessment and Plan: * multifactorial sources: * urinary tract infection * abdominal wall cellulitis * septic arthrtiis of pubic symphysis * abdominal abscess * follow culture data * on broad spectrum antibiotic therapy * Surgery following * off vasopressors at this time * s/p drainage of abdominal abscess by IR on 12/21/23 * continue supportive therapy (4) Abdominal abscess: Status: Acute Assessment and Plan: * as noted by imaging * see #3 (5) UTI (urinary tract infection): Code(s): N39.0 - Urinary tract infection, site not specified Status: Acute Assessment and Plan: * admission UA suspicions * garner catheter changed out by Urology * see #3 (6) Cellulitis of abdominal wall: Code(s): L03.311 - Cellulitis of abdominal wall Status: Acute Assessment and Plan: * as noted by imaging * see #3 (7) Altered mental status: Code(s): R41.82 - Altered mental status, unspecified Status: Acute Assessment and Plan: * appears to be resolving * suspect toxic metabolic encephalopathy secondary to sepsis and sedation * head CT negative * normal TSH and ammonia * follow mentation (8) Anemia: Code(s): D64.9 - Anemia, unspecified Status: Acute Assessment and Plan: * due to underlying CKD + acute illness * follow trend of H/H * PRBC transfusion per protocol (9) Diabetes: Code(s): E11.9 - Type 2 diabetes mellitus without complications Status: Chronic Assessment and Plan: * follow accu-cheks * glycemic control per intensivists/hospitalists Will continue to follow. Subjective Date/time seen: 12/22/23 10:23 Interval history: Follow-up for acute kidney injruy/acute renal failure on chronic kidney disease. Transferred out of ICU yesterday; s/p CT-guided drain placement of parasymphyseal abscess yesterday afternoon without any issues or problems (tolerated the procedure reasonably well); renal function slightly better as noted by trend in labs; no apparent distress noted; mentation seems better as well. Exam Narrative: General: large/obese female in NAD Heart: normal S1 and S2; no rub Lungs: clear to auscultation Abdomen: soft, nontender, nondistended, positive bowel sounds Extremities: no cyanosis or clubbing; 1 - 2+ edema Skin: warm and dry Objective Data Vital Signs Vital Signs: Vital Signs Temp Pulse Resp BP Pulse Ox O2 Del Method 12/22/23 10:00 102 H Room
--- NOTE | 2023-12-22 10:23 | PM.PNNEP ---
Progress Note: A&P Assessment and Plan (1) JAYESH (acute kidney injury): Code(s): N17.9 - Acute kidney failure, unspecified Status: Acute Assessment and Plan: presumably related to acute illness/infection/hemodynamic instability along with contrast exposure kidney normal by CT imaging to date check urine studies and CPK follow repeat labs and UOP (2) Stage 3a chronic kidney disease: Code(s): N18.31 - Chronic kidney disease, stage 3a Status: Chronic Assessment and Plan: baseline creatinine seems to run around 1.0 - 1.3mg/dl she tends to fluctuate more so whenever she is hospitalized or acutely ill presumably secondary to CHF, HTN, DM, vascular disease, EAMON, and obesity (3) Sepsis: Code(s): A41.9 - Sepsis, unspecified organism Status: Acute Assessment and Plan: multifactorial sources: urinary tract infection abdominal wall cellulitis septic arthrtiis of pubic symphysis abdominal abscess follow culture data on broad spectrum antibiotic therapy Surgery following off vasopressors at this time s/p drainage of abdominal abscess by IR on 12/21/23 continue supportive therapy (4) Abdominal abscess: Status: Acute Assessment and Plan: as noted by imaging see #3 (5) UTI (urinary tract infection): Code(s): N39.0 - Urinary tract infection, site not specified Status: Acute Assessment and Plan: admission UA suspicions garner catheter changed out by Urology see #3 (6) Cellulitis of abdominal wall: Code(s): L03.311 - Cellulitis of abdominal wall Status: Acute Assessment and Plan: as noted by imaging see #3 (7) Altered mental status: Code(s): R41.82 - Altered mental status, unspecified Status: Acute Assessment and Plan: appears to be resolving suspect toxic metabolic encephalopathy secondary to sepsis and sedation head CT negative normal TSH and ammonia follow mentation (8) Anemia: Code(s): D64.9 - Anemia, unspecified Status: Acute Assessment and Plan: due to underlying CKD + acute illness follow trend of H/H PRBC transfusion per protocol (9) Diabetes: Code(s): E11.9 - Type 2 diabetes mellitus without complications Status: Chronic Assessment and Plan: follow accu-cheks glycemic control per intensivists/hospitalists Will continue to follow. Subjective Date/time seen: 12/22/23 10:23 Interval history: Follow-up for acute kidney injruy/acute renal failure on chronic kidney disease. Transferred out of ICU yesterday; s/p CT-guided drain placement of parasymphyseal abscess yesterday afternoon without any issues or problems (tolerated the procedure reasonably well); renal function slightly better as noted by trend in labs; no apparent distress noted; mentation seems better as well. Exam Narrative: General: large/obese female in NAD Heart: normal S1 and S2; no rub Lungs: clear to auscultation Abdomen: soft, nontender, nondistended, positive bowel sounds Extremities: no cyanosis or clubbing; 1 - 2+ edema Skin: warm and dry Objective Data Vital Signs Vital Signs: Vital Signs Temp Pulse Resp BP Pulse Ox O2 Del Method 12/22/23 10:00 102 H Room Air 12/22/23 08:00 88 12/22/23 07:46 96.3 F L 84 20 141/78 H 99 12/22/23 05:53 86 12/22/23 04:00 88 12/22/23 04:00 Autopap 12/22/23 03:45 97.8 F 85 20 132/75 99 12/22/23 02:00 81 12/22/23 02:09 19 Autopap 12/21/23 23:00 18 Autopap 12/22/23 00:00 92 12/22/23 00:00 Room Air 12/21/23 23:31 97.6 F 92 20 165/91 H 98 12/21/23 20:00 Room Air 12/21/23 22:00 92 12/21/23 20:00 98 12/21/23 20:13 97.5 F L 100 20 146/88 H 100 12/21/23 18:00 99 12/21/23 16:00 Room Air 12/21/23 16:00 88 12/21/23 16:06 96.9 F L
[2023-12-22 11:59] LABS: Glucose Point of Care 230 mg/dl (65-105)
--- NOTE | 2023-12-22 12:20 | PM.IMPN ---
Progress Note: A&P Assessment and Plan (1) Chronic indwelling Jenkins catheter: Code(s): Z97.8 - Presence of other specified devices Status: Acute (2) Anemia: Code(s): D64.9 - Anemia, unspecified Status: Acute (3) Acute metabolic encephalopathy: Code(s): G93.41 - Metabolic encephalopathy Status: Acute (4) UTI (urinary tract infection): Code(s): N39.0 - Urinary tract infection, site not specified Status: Acute (5) Sepsis: Code(s): A41.9 - Sepsis, unspecified organism Status: Acute Plan 48-year-old female is a resident of care home with past medical history morbid obesity, bipolar disorder, chronic indwelling Jenkins, seizure disorder, hypertension, iron deficiency anemia, hyperlipidemia, insulin-dependent diabetes mellitus, history of DVT on warfarin, COPD, EAMON, diastolic heart failure, status post permanent pacemaker, CKD stage IIIA, depression, eczema, recurrent UTI and intertrigo, history of hyperkalemia, history of cellulitis presents with altered mental status. On 12/21 update: On 12/20 she was transferred out of the ICU. She only required a short course of Tony-Synephrine. She is currently hemodynamically stable. Her mental status is back to her usual. Yesterday there was pus noted in large quantity her bed sheets and nursing plus surgery attempted to identify where there was is coming from but that was unsuccessful. Shortly after she underwent CT-guided percutaneous catheter placement which did not yield any fluid. It was otherwise uncomplicated. Today her white count is up to 15.1 again. She is already been escalated to vancomycin Flagyl and cefepime. Dr. Armando the hospitalist at [facility] graciously accepted this patient morning of 12/21 for transfer for escalated level of services including sections disease post orthopedic consultation for this pelvic abscess and septic arthritis of the pubic symphysis. We are awaiting a bed to open up. Acute encephalopathy -on 12/18 she was very lethargic and transfer to ICU in guarded condition. Her encephalopathy has now resolved. Unclear if this was due to sepsis/tramadol administration x1/hypoxia/hypotension/controlled medications/? -continue to monitor in the intensive care unit. Medical And Health Services Manager on consult. -ABG without hypercapnia or severe acid-base disturbance. Continue CPAP nightly -CT brain without contrast, no acute abnormality. -discontinue tramadol p.r.n.. Avoid sedatives and narcotics. Home medication trazodone 100 mg p.o. q.h.s. also on hold. Would not restart this unless absolutely indicated. -Keppra level pending, ammonia level normal, vitamin B12 level normal, check TSH. Salicylate and acetaminophen levels within normal limits. Urine drug screen positive for benzodiazepine, she received this earlier in the admission. Severe sepsis -WBC increasing from 14.7-16 0.7-21.2. Procalcitonin 1.5. However, she appears clinically much better. -CT chest abdomen pelvis on 12/18 demonstrating 6.2 cm fluid/gas collection extending from the pubic symphysis, possible abscess. Dermal thickening and subcutaneous stranding in the lower abdomen indicating possible abdominal wall cellulitis. -12/18 ceftriaxone escalated to vancomycin Flagyl and cefepime. -follow-up blood culture. Initial urinalysis on admission medicating infectious state however urine culture negative. Reji urine culture pending. General surgery consulted, anticipate percutaneous abscess drainage with Radiology on Thursday. -lactic acid level normal. Required phenylephrine overnight 12/18 has now been discontinued. She received 2 L normal saline bolus at that time. Acute hypoxic respiratory failure -resolved. Quad viral screen negative. No discernible etiology on CT of chest. Could have been due to the patient's lethargy or fluid overload. Cautious with fluids, she has anasarca. She did receive albumin infusion x1. -D-dimer elevated. CTA chest was suboptimal study but did not reveal
[2023-12-22 12:36] LABS: Eosinophil Urine None Seen % (None Seen)
[2023-12-22 13:55] LABS: Urine Eos QC 2nd Tech Confirmed
--- NOTE | 2023-12-22 16:01 | PM.PNGS ---
Progress Note: A&P Assessment and Plan (1) Septic arthritis of pelvic region: Code(s): M00.9 - Pyogenic arthritis, unspecified Status: Acute Assessment and Plan: Awaiting transfer to [facility]. Continue IV antibiotics. (2) Abdominal abscess: Status: Acute Assessment and Plan: S/p percutaneous drainage in IR yesterday. No fluid was sent for cultures per the report. Per nursing there was only gas that was withdrawn during the procedure and no fluid to send. There is about 50 cc of output in the drain today. Continue to monitor drain. Continue IV antibiotics. (3) Sepsis: Code(s): A41.9 - Sepsis, unspecified organism Status: Acute Assessment and Plan: Secondary to UTI, septic arthritis of pubic symphysis with abscess, vs combination. Continue IV antibiotics. S/p percutaneous drainage. Awaiting transfer to [facility]. (4) UTI (urinary tract infection): Code(s): N39.0 - Urinary tract infection, site not specified Status: Acute (5) Acute metabolic encephalopathy: Code(s): G93.41 - Metabolic encephalopathy Status: Acute (6) History of DVT (deep vein thrombosis): Code(s): Z86.718 - Personal history of other venous thrombosis and embolism Status: Acute (7) Chronic anticoagulation: Code(s): Z79.01 - intermediate accountant (current) use of anticoagulants Status: Acute (8) Anemia: Code(s): D64.9 - Anemia, unspecified Status: Acute Plan I have discussed the patient's case and plan of care with Dr. Pike. Subjective Subjective Date/Time Seen: 12/22/23 16:01 Patient reports: no new complaints, feels better and afebrile Interval history: Patient doing well today. She denies any pain today. She was transferred out to IMU. She is more oriented, but is not appropriate when answering certain questions. She also is visually hallucinating and telling me her is in the bed with her although no one is present in the room besides myself. Perc drain with only scant bloody output per nursing yesterday. They are having issues with it staying to suction and having to compress the accordion frequently throughout the day. Exam Const: General: comfortable and no acute distress Orientation/consciousness: confusion GI: Inspection: Pannus present and obesity GI Palp: Yes Soft to palpation, No Tenderness to palpation present (GI) and No Guarding due to palpation present (GI) Auscultation: normal bowel sounds Other: suprapubic perc drain with cloudy bloody drainage, estimating about 50 cc in the bag currently erythema and skin changes of panniculus similar to yesterday Objective Data Vital Signs Vital Signs: Vital Signs - 24 hr 12/21/23 16:06 12/21/23 18:00 12/21/23 20:13 Temperature 96.9 F L 97.5 F L Pulse Rate 94 99 100 Respiratory Rate 20 20 Blood Pressure 149/95 H 146/88 H Pulse Oximetry 99 100 Oxygen Delivery 12/21/23 20:00 12/21/23 22:00 12/21/23 20:00 Temperature Pulse Rate 98 92 Respiratory Rate Blood Pressure Pulse Oximetry Oxygen Delivery Room Air 12/21/23 23:31 12/22/23 00:00 12/22/23 00:00 Temperature 97.6 F Pulse Rate 92 92 Respiratory Rate 20 Blood Pressure 165/91 H Pulse Oximetry 98 Oxygen Delivery Room Air 12/21/23 23:00 12/22/23 02:09 12/22/23 02:00 Temperature Pulse Rate 81 Respiratory Rate 18 19 Blood Pressure Pulse Oximetry Oxygen Delivery Autopap Autopap 12/22/23 03:45 12/22/23 04:00 12/22/23 04:00 Temperature 97.8 F Pulse Rate 85 88 Respiratory Rate 20 Blood Pressure 132/75 Pulse Oximetry 99 Oxygen Delivery Autopap 12/22/23 05:53 12/22/23 07:46 12/22/23 08:00 Temperature 96.3 F L Pulse Rate 86 84 88 Respiratory Rate 20 Blood Pressure 141/78 H Pulse Oximetry 99 Oxygen Delivery 12/22/23 10:00 12/22/23 08:00 12/22/23 11:41 Temperature 97.3 F L Pulse Rate 102 H 105 H Respiratory Rate 20 Blood Pressure
[2023-12-22 16:06] LABS: Glucose Point of Care 225 mg/dl (65-105)
[2023-12-22 20:54] LABS: Glucose Point of Care 175 mg/dl (65-105)
[2023-12-22] MEDS: INSULIN GLARGINE (*BKC) 100 UNITS/ML 15 UNITS SUB-Q (21:22)
[2023-12-22] MEDS: MORPHINE SULFATE (*CRX) 2 MG/ML INJ IV PUSH (21:39)
[2023-12-23] VITALS (10 sets, daily range): BP systolic 108–154; BP diastolic 57–83; PULSE 97–104; RESP 20; TEMP 35.9–37; O2SAT 95–100
[2023-12-23] MEDS: ARTIFICIAL TEARS OPHTH SOLN 15 ML BOTTLE 1 DROP EACH EYE ×5 (00:06→22:45)
[2023-12-23 00:57] LABS: Vancomycin Trough 32.2 ug/mL (10.0-20.0)
[2023-12-23] MEDS: metroNIDAZOLE 500 MG/ISO 100ML 500 MG/100 ML BAG 100 MG IVPB ×3 (01:13→17:30)
[2023-12-23] MEDS: CEFEPIME 2 GM/NS 50 ML 2 GM/50 ML BAG IVPB ×2 (05:08→17:30)
[2023-12-23] MEDS: MORPHINE SULFATE (*CRX) 2 MG/ML INJ IV PUSH ×4 (05:09→21:47)
[2023-12-23] MEDS: CENTRAL LINE FLUSH 10 ML IV PUSH ×3 (05:09→20:26)
[2023-12-23 05:31] LABS: Hematocrit 29.8 % (37.0-47.0); Hemoglobin 8.8 g/dL (12.0-15.0); Mean Corpuscular HGB Conc 29.5 g/dl (32-36); Mean Corpuscular Volume 91.4 fl (80-100); Mean Platelet Volume 10.2 fl (7.4-10.4); Platelet Count Result 213 k/mm3 (150-375); Red Blood Count 3.26 M/mm3 (4.2-5.4); Red Cell Distribution Width 14.9 % (11.5-14.5); White Blood Count 17.3 K/mm3 (4.5-10.0)
[2023-12-23 05:51] LABS: Alanine Aminotransferase 9 U/L (6-35); Albumin Level 2.9 g/dL (3.5-5.1); Alkaline Phosphatase 79 U/L (38-126); Anion Gap 8 mmol/L (4-12); Aspartate Amino Transferase 11 U/L (14-36); Bilirubin,Total 0.7 mg/dL (0.2-1.3); Blood Urea Nitrogen 58 mg/dL (7-17); Calcium 7.6 mg/dL (8.4-10.2); Carbon Dioxide 25 mmol/L (22-30); Chloride 104 mmol/L (98-107); Estimated Glomerular Filt Rate 40; Glucose 106 mg/dL (65-110); Magnesium 2.1 mg/dL (1.6-2.3); Sodium 137 mmol/L (137-145)
[2023-12-23 08:15] LABS: Glucose Point of Care 108 mg/dl (65-105)
[2023-12-23] MEDS: FUROSEMIDE 40 MG TABLET PO ×2 (09:23→17:29)
[2023-12-23] MEDS: TOLNAFTATE 1% POWDER 45 GM BTL 1 APPLIC TOPICAL ×2 (09:24→20:26)
[2023-12-23] MEDS: PANTOPRAZOLE SODIUM IV 40 MG VIAL IV PUSH (09:24)
[2023-12-23] MEDS: levETIRAcetam 500 MG TABLET PO ×2 (09:24→20:26)
[2023-12-23] MEDS: POTASSIUM CHLORIDE 20 MEQ ER TABLET 40 MEQ PO (09:24)
[2023-12-23] MEDS: INSULIN GLARGINE (*BKC) 100 UNITS/ML 20 UNITS SUB-Q (09:28)
[2023-12-23 11:54] LABS: Glucose Point of Care 145 mg/dl (65-105)
--- NOTE | 2023-12-23 12:42 | P.PNNP_ITS ---
Progress Note: A&P Assessment and Plan (1) JAYESH (acute kidney injury): Code(s): N17.9 - Acute kidney failure, unspecified Status: Acute Assessment and Plan: * stable (but no improvement noted) * presumably related to acute illness/infection/hemodynamic instability along with contrast exposure * evaluation to date: * kidney normal by CT imaging to date * urine electrolytes are prerenal * urine eosinophils negative * CPK okay * moderate proteinuria * follow repeat labs and UOP (2) Stage 3a chronic kidney disease: Code(s): N18.31 - Chronic kidney disease, stage 3a Status: Chronic Assessment and Plan: * baseline creatinine seems to run around 1.0 - 1.3mg/dl * she tends to fluctuate more so whenever she is hospitalized or acutely ill * presumably secondary to CHF, HTN, DM, vascular disease, EAMON, and obesity (3) Sepsis: Code(s): A41.9 - Sepsis, unspecified organism Status: Acute Assessment and Plan: * multifactorial sources: * urinary tract infection * abdominal wall cellulitis * septic arthrtiis of pubic symphysis * abdominal abscess * follow culture data * on broad spectrum antibiotic therapy * Surgery following * off vasopressors at this time * s/p drainage of abdominal abscess by IR on 12/21/23 * continue supportive therapy (4) Abdominal abscess: Status: Acute Assessment and Plan: * as noted by imaging * see #3 (5) UTI (urinary tract infection): Code(s): N39.0 - Urinary tract infection, site not specified Status: Acute Assessment and Plan: * admission UA suspicions * garner catheter changed out by Urology * see #3 (6) Cellulitis of abdominal wall: Code(s): L03.311 - Cellulitis of abdominal wall Status: Acute Assessment and Plan: * as noted by imaging * see #3 (7) Altered mental status: Code(s): R41.82 - Altered mental status, unspecified Status: Acute Assessment and Plan: * appears to be resolving * suspect toxic metabolic encephalopathy secondary to sepsis and sedation * head CT negative * normal TSH and ammonia * follow mentation (8) Anemia: Code(s): D64.9 - Anemia, unspecified Status: Acute Assessment and Plan: * due to underlying CKD + acute illness * follow trend of H/H * PRBC transfusion per protocol (9) Diabetes: Code(s): E11.9 - Type 2 diabetes mellitus without complications Status: Chronic Assessment and Plan: * follow accu-cheks * glycemic control per intensivists/hospitalists Will continue to follow. Subjective Date/time seen: 12/23/23 12:42 Interval history: Follow-up for acute kidney injruy/acute renal failure on chronic kidney disease. No new issues or problems voiced at this time; mentation seems stable but still has periods of confusion; renal function remains unchanged but stable urine output noted and no critical electrolytes present; no events overnight or earlier this morning. Exam Narrative: General: large/obese female in NAD Heart: normal S1 and S2; no rub Lungs: clear to auscultation Abdomen: soft, nontender, nondistended, positive bowel sounds Extremities: no cyanosis or clubbing; 1 - 2+ edema Skin: warm and intact Objective Data Vital Signs Vital Signs: Vital Signs
--- NOTE | 2023-12-23 12:42 | PM.PNNEP ---
Progress Note: A&P Assessment and Plan (1) JAYESH (acute kidney injury): Code(s): N17.9 - Acute kidney failure, unspecified Status: Acute Assessment and Plan: stable (but no improvement noted) presumably related to acute illness/infection/hemodynamic instability along with contrast exposure evaluation to date: kidney normal by CT imaging to date urine electrolytes are prerenal urine eosinophils negative CPK okay moderate proteinuria follow repeat labs and UOP (2) Stage 3a chronic kidney disease: Code(s): N18.31 - Chronic kidney disease, stage 3a Status: Chronic Assessment and Plan: baseline creatinine seems to run around 1.0 - 1.3mg/dl she tends to fluctuate more so whenever she is hospitalized or acutely ill presumably secondary to CHF, HTN, DM, vascular disease, EAMON, and obesity (3) Sepsis: Code(s): A41.9 - Sepsis, unspecified organism Status: Acute Assessment and Plan: multifactorial sources: urinary tract infection abdominal wall cellulitis septic arthrtiis of pubic symphysis abdominal abscess follow culture data on broad spectrum antibiotic therapy Surgery following off vasopressors at this time s/p drainage of abdominal abscess by IR on 12/21/23 continue supportive therapy (4) Abdominal abscess: Status: Acute Assessment and Plan: as noted by imaging see #3 (5) UTI (urinary tract infection): Code(s): N39.0 - Urinary tract infection, site not specified Status: Acute Assessment and Plan: admission UA suspicions garner catheter changed out by Urology see #3 (6) Cellulitis of abdominal wall: Code(s): L03.311 - Cellulitis of abdominal wall Status: Acute Assessment and Plan: as noted by imaging see #3 (7) Altered mental status: Code(s): R41.82 - Altered mental status, unspecified Status: Acute Assessment and Plan: appears to be resolving suspect toxic metabolic encephalopathy secondary to sepsis and sedation head CT negative normal TSH and ammonia follow mentation (8) Anemia: Code(s): D64.9 - Anemia, unspecified Status: Acute Assessment and Plan: due to underlying CKD + acute illness follow trend of H/H PRBC transfusion per protocol (9) Diabetes: Code(s): E11.9 - Type 2 diabetes mellitus without complications Status: Chronic Assessment and Plan: follow accu-cheks glycemic control per intensivists/hospitalists Will continue to follow. Subjective Date/time seen: 12/23/23 12:42 Interval history: Follow-up for acute kidney injruy/acute renal failure on chronic kidney disease. No new issues or problems voiced at this time; mentation seems stable but still has periods of confusion; renal function remains unchanged but stable urine output noted and no critical electrolytes present; no events overnight or earlier this morning. Exam Narrative: General: large/obese female in NAD Heart: normal S1 and S2; no rub Lungs: clear to auscultation Abdomen: soft, nontender, nondistended, positive bowel sounds Extremities: no cyanosis or clubbing; 1 - 2+ edema Skin: warm and intact Objective Data Vital Signs Vital Signs: Vital Signs Temp Pulse Resp BP Pulse Ox O2 Del Method 12/23/23 12:00 104 H 12/23/23 08:00 103 H 12/23/23 08:00 Room Air 12/23/23 07:35 96.7 F L 100 20 154/57 H 95 12/23/23 04:00 97 12/23/23 03:55 98.6 F 99 20 108/61 100 12/23/23 00:00 101 H 12/22/23 23:53 101 H 12/22/23 20:00 Room Air 12/22/23 20:00 112 H 12/22/23 20:22 97.6 F 112 H 20 122/51 L 95 Intake/Output Intake/Output: Intake & Output 12/20/23 12/21/23 12/22/23 12/23/23 23:59 23:59 23:59 23:59 Intake Total 4232.4 1385 2050 730 Output Total 300 300 745 590 Balance 3932.4 1085 1305 140 Med
--- NOTE | 2023-12-23 15:54 | PM.PNGS ---
Progress Note: A&P Assessment and Plan (1) Septic arthritis of pelvic region: Code(s): M00.9 - Pyogenic arthritis, unspecified Status: Acute Assessment and Plan: Awaiting transfer to [facility]. Continue IV antibiotics. (2) Abdominal abscess: Status: Acute Assessment and Plan: S/p percutaneous drainage in IR. No fluid was sent for cultures as there was no fluid aspirated during procedure. Her erythema seems to be extending and progressing cephalad from her pannus. Her WBC count has increased for the past 2 days. It is certainly possible that she has a gas-forming organism that could be causing a necrotizing infection, and needs prompt attention. I discussed the case with the Hospitalist to see if there are any other facilities with ID and Orthopedics who would accept her to try and get her transferred as soon as possible. They are going to work on transfer. (3) Sepsis: Code(s): A41.9 - Sepsis, unspecified organism Status: Acute Assessment and Plan: Secondary to UTI, septic arthritis of pubic symphysis with abscess. Continue IV antibiotics. S/p percutaneous drainage. Awaiting transfer. (4) UTI (urinary tract infection): Code(s): N39.0 - Urinary tract infection, site not specified Status: Acute (5) Acute metabolic encephalopathy: Code(s): G93.41 - Metabolic encephalopathy Status: Acute (6) History of DVT (deep vein thrombosis): Code(s): Z86.718 - Personal history of other venous thrombosis and embolism Status: Acute (7) Chronic anticoagulation: Code(s): Z79.01 - supervisor intermediates (current) use of anticoagulants Status: Acute (8) Anemia: Code(s): D64.9 - Anemia, unspecified Status: Acute Plan I have discussed the patient's case and plan of care with Dr. Pike. Subjective Subjective Date/Time Seen: 12/23/23 15:54 Patient reports: no new complaints and afebrile Interval history: Patient able to answer orientation questions appropriately, but still has confusion. She does report some lower abdominal pain today. No acute events overnight per nursing. Exam Const: General: comfortable and no acute distress Orientation/consciousness: patient oriented x3 GI: Inspection: Pannus present and obesity GI Palp: Yes Soft to palpation and Yes Tenderness to palpation present (GI) (lower abdomen) Auscultation: normal bowel sounds Other: suprapubic perc drain with cloudy bloody drainage, estimating about 50 cc in the bag currently diffuse erythema is extending cephalad in comparison to yesterday from the pannus, she is tender in this area, no obvious fluctuant areas, exam difficult given her body habitus Objective Data Vital Signs Vital Signs: Vital Signs - 24 hr 12/22/23 16:00 12/22/23 20:22 12/22/23 20:00 Temperature 97.6 F Pulse Rate 111 H 112 H 112 H Respiratory Rate 20 Blood Pressure 122/51 L Pulse Oximetry 95 Oxygen Delivery 12/22/23 20:00 12/22/23 23:53 12/23/23 00:00 Temperature Pulse Rate 101 H 101 H Respiratory Rate Blood Pressure Pulse Oximetry Oxygen Delivery Room Air 12/23/23 03:55 12/23/23 04:00 12/23/23 07:35 Temperature 98.6 F 96.7 F L Pulse Rate 99 97 100 Respiratory Rate 20 20 Blood Pressure 108/61 154/57 H Pulse Oximetry 100 95 Oxygen Delivery 12/23/23 08:00 12/23/23 08:00 12/23/23 12:00 Temperature Pulse Rate 103 H 104 H Respiratory Rate Blood Pressure Pulse Oximetry Oxygen Delivery Room Air Intake/Output Intake/Output: Intake & Output 12/20/23 12/21/23 12/22/23 12/23/23 23:59 23:59 23:59 23:59 Intake Total 4232.4 1385 2050 730 Output Total 300 300 745 590 Balance 3932.4 1085 1305 140 Meds/Results Medications: Active Medications Generic Name Dose Route Start Last Admin Trade Name Freq PRN Reason Stop Dose Admin Acetaminophen 650 mg 12/18/23 00:16 12/20/23 17:01 Acetaminophen 325 Mg Tablet PO 650 mg
[2023-12-23 16:26] LABS: Glucose Point of Care 115 mg/dl (65-105)
--- NOTE | 2023-12-23 16:56 | PM.IMPN ---
Progress Note: A&P Assessment and Plan (1) Stage 3a chronic kidney disease: Code(s): N18.31 - Chronic kidney disease, stage 3a Status: Chronic (2) Septic arthritis of pelvic region: Code(s): M00.9 - Pyogenic arthritis, unspecified Status: Acute (3) Abdominal abscess: Status: Acute Plan Edema extending from her previous hyperkeratotic and hyperpigmented lower pannus . No growing superior. Contacting [facility] you again. Taking additional calls. Continue to monitor leukocytosis and procalcitonin Subjective Date/time seen: 12/23/23 16:56 Interval history: No acute overnight events Review of Systems Review of Systems: All systems reviewed & are unremarkable except as noted in HPI and below (Subjective) Exam Const: General: comfortable and no acute distress Other: A&O x3. Morbidly obese. Eyes: Pupils: Equal, round and reactive pupils present Other: Poor dentition Neck: Neck: supple Resp: Effort & Inspection: normal respiratory effort Auscultation: clear to auscultation bilaterally Cardio: Rate: regular rate Rhythm: regular rhythm Heart sounds: no gallops, no murmurs and no rubs GI: GI Palp: Yes Soft to palpation and No Tenderness to palpation present (GI) : Other: Malodorous pelvic region with hyperpigmented and sclerotic soft tissue of the lower pannus and pelvic skin folds Extrem: Other: Lymphedema bilateral lower extremities. 1+ pitting edema bilateral lower extremities from waist to ankles as well as upper extremities below the elbows Objective Data Vital Signs Vital Signs: Vital Signs - 24 hr 12/22/23 20:22 12/22/23 20:00 12/22/23 20:00 Temperature 97.6 F Pulse Rate 112 H 112 H Respiratory Rate 20 Blood Pressure 122/51 L Pulse Oximetry 95 Oxygen Delivery Room Air 12/22/23 23:53 12/23/23 00:00 12/23/23 03:55 Temperature 98.6 F Pulse Rate 101 H 101 H 99 Respiratory Rate 20 Blood Pressure 108/61 Pulse Oximetry 100 Oxygen Delivery 12/23/23 04:00 12/23/23 07:35 12/23/23 08:00 Temperature 96.7 F L Pulse Rate 97 100 Respiratory Rate 20 Blood Pressure 154/57 H Pulse Oximetry 95 Oxygen Delivery Room Air 12/23/23 08:00 12/23/23 12:00 12/23/23 16:28 Temperature 96.6 F L Pulse Rate 103 H 104 H 100 Respiratory Rate 20 Blood Pressure 124/83 Pulse Oximetry 95 Oxygen Delivery Intake/Output Intake/Output: Intake & Output 12/20/23 12/21/23 12/22/23 12/23/23 23:59 23:59 23:59 23:59 Intake Total 4232.4 1385 2050 730 Output Total 300 300 745 590 Balance 3932.4 1085 1305 140 Meds/Results Medications: Active Medications Generic Name Dose Route Start Last Admin Trade Name Freq PRN Reason Stop Dose Admin Acetaminophen 650 mg 12/18/23 00:16 12/20/23 17:01 Acetaminophen 325 Mg Tablet PO 650 mg Q6H PRN Administration Pain (Scale Score 1-3) Acetaminophen 650 mg 12/19/23 19:47 12/19/23 20:24 Acetaminophen 650 Mg Suppository RECTAL 650 mg Q6H PRN Administration Mild Pain (1-3) or Fever Hydrocodone Bitart/Acetaminophen 1 tab 12/20/23 21:52 Hydrocodone/Acetaminophen (*Crx) 5-325 Mg Tablet PO Q4H PRN Pain Rated 4-6 Albuterol 2 puff 12/18/23 00:16 Albuterol Sulfate (*Sp) Aerosol 1 Puff INHALATION Q4HRT PRN Shortness Of Breath Apixaban 2.5 mg 12/18/23 09:00 12/19/23 08:42 Apixaban 2.5 Mg Tablet PO 2.5 mg Q12HR RAMONE Administration Artificial Tears 1 drop 12/18/23 00:50 12/23/23 11:41 Artificial Tears Ophth Soln 15 Ml Bottle EACH EYE 1 drop Q6HR RAMONE Administration Ascorbic Acid 500 mg 12/18/23 09:00 12/23/23 09:39 Ascorbic Acid 500 Mg Tablet PO Not Given DAILY RAMONE Bisacodyl 10 mg 12/18/23 00:16 Bisacodyl 10 Mg Suppository RECTAL DAILY PRN Constipation Bisacodyl 5 mg 12/20/23 10:52 Bisacodyl 5 Mg Tablet Ec PO QAM PRN Constipation Dextrose 12
[2023-12-23 20:26] LABS: Glucose Point of Care 109 mg/dl (65-105)
[2023-12-23] MEDS: HYDROcodone/acetaminophen (*CRX) 5-325 MG TABLET 1 TAB PO (20:32)
[2023-12-23] MEDS: INSULIN GLARGINE (*BKC) 100 UNITS/ML 15 UNITS SUB-Q (20:37)
[2023-12-23] MEDS: GABAPENTIN 300 MG CAPSULE PO (22:42)
[2023-12-24] VITALS: BP 122/54; PULSE 95; RESP 20; TEMP 36.6; O2SAT 95
[2023-12-24 01:05] LABS: Vancomycin Random 25.4 ug/mL (10-20)
[2023-12-24] MEDS: metroNIDAZOLE 500 MG/ISO 100ML 500 MG/100 ML BAG 100 MG IVPB ×2 (01:27→10:23)
--- NOTE | 2023-12-24 02:15 | PC.NURSE ---
[facility] transfer [facility] called for pt update. No beds available at this time.
[2023-12-24 04:00] VITALS: PULSE 100
[2023-12-24 05:32] LABS: Hematocrit 29.9 % (37.0-47.0); Hemoglobin 8.6 g/dL (12.0-15.0); Mean Corpuscular HGB Conc 28.8 g/dl (32-36); Mean Corpuscular Hemoglobin 26.7 pg (26-34); Mean Corpuscular Volume 92.9 fl (80-100); Mean Platelet Volume 10.2 fl (7.4-10.4); Platelet Count Result 238 k/mm3 (150-375); Red Blood Count 3.22 M/mm3 (4.2-5.4); Red Cell Distribution Width 15.1 % (11.5-14.5); White Blood Count 22.8 K/mm3 (4.5-10.0)
[2023-12-24] MEDS: CEFEPIME 2 GM/NS 50 ML 2 GM/50 ML BAG IVPB (05:37)
[2023-12-24] MEDS: MORPHINE SULFATE (*CRX) 2 MG/ML INJ IV PUSH ×2 (05:48→08:18)
[2023-12-24] MEDS: CENTRAL LINE FLUSH 10 ML IV PUSH (05:48)
[2023-12-24 05:49] LABS: Alanine Aminotransferase 10 U/L (6-35); Albumin Level 3.1 g/dL (3.5-5.1); Alkaline Phosphatase 89 U/L (38-126); Anion Gap 6 mmol/L (4-12); Aspartate Amino Transferase 14 U/L (14-36); Bilirubin,Total 0.9 mg/dL (0.2-1.3); Blood Urea Nitrogen 58 mg/dL (7-17); Calcium 8.6 mg/dL (8.4-10.2); Carbon Dioxide 28 mmol/L (22-30); Chloride 105 mmol/L (98-107); Estimated Glomerular Filt Rate 37; Glucose 90 mg/dL (65-110); Potassium 3.6 mmol/L (3.4-5.0); Sodium 139 mmol/L (137-145)
--- NOTE | 2023-12-24 06:06 | PC.NURSE ---
Addendum entered by Joanna Holloway RN 12/24/23 07:24: Large amount of foul smelling, rucker drainage present on pt's pad, presumably draining from left gluteal fold. Original Note: Large amount of foul smelling, rucker drainage present on pt's pad, presumably draining from right gluteal fold.
[2023-12-24 06:12] LABS: Procalcitonin 0.9 ng/mL
--- NOTE | 2023-12-24 07:24 | PC.NURSE ---
Staff evaluated pt's skin. Large amount of foul smelling drainage noted from left gluteal fold. Weeping noted to posterior thigh.
[2023-12-24 07:26] VITALS: BP 139/68; PULSE 113; RESP 20; TEMP 36.1; O2SAT 94
[2023-12-24 08:00] VITALS: PULSE 107
[2023-12-24 08:02] LABS: Glucose Point of Care 94 mg/dl (65-105)
[2023-12-24 08:04] LABS: Alveolar/Arterial O2 Gradient 41.1 mmHg; Base Excess ABG 0.5 mEq/l (+/-2.0); Carboxyhemoglobin 1.4 % THb (0-2.0); Fractional Inspired Oxygen 21 %; HCO3 ABG 25.3 mEq/l (22.0-26.0); Methemoglobin ABG 0.3 %THb (0-1.5); Oxygen Content ABG 11.5 %vol (16.0-22.0); Oxygen Saturation ABG 90.9 % (95.0-100.0); Oxyhemoglobin 89.3 % THb (90.0-100.0); PCO2 ABG 41.2 mmHg (35.0-45.0); PO2 ABG 59.3 mmHg (80.0-100.0); PO2 FiO2 Ratio Arterial Blood 2.82 %; Total Hemoglobin 9.1 g/dL (12.0-18.0); pH ABG 7.406 (7.350-7.450)
[2023-12-24 08:05] LABS: Device ROOM AIR; Modified Allen's Test Pass; Site Drawn RIGHT RADIAL
[2023-12-24] MEDS: methylPREDNISolone SOD SUCC 40 MG VIAL IV PUSH (08:13)
[2023-12-24] MEDS: PANTOPRAZOLE SODIUM IV 40 MG VIAL IV PUSH (08:18)
[2023-12-24] MEDS: MICAFUNGIN SODIUM 100 MG in SODIUM CHLORIDE 0.9% IV 100 ML IVPB (09:40)
[2023-12-24] MEDS: TOLNAFTATE 1% POWDER 45 GM BTL 1 APPLIC TOPICAL (10:23)
[2023-12-24] MEDS: CLINDAMYCIN 900 MG/D5W 50 ML 900 MG/50 ML PIGGYBACK 50 MG IVPB (10:40)
[2023-12-24 11:41] LABS: Glucose Point of Care 107 mg/dl (65-105)
--- NOTE | 2023-12-24 11:47 | PM.TDS ---
Transfer Discharge Sum: Prov Provider Date of admission: 12/19/23 18:42 Primary care physician: Jose Painter MD Admitting clinician: Yoseph Shah MD Attending physician on admission: Yoseph Shah Consults: 12/17/23 Wound/ET Consult Routine Reason for Consult:: left heel DTI, maceration arie breast, abdomen and groin, maceration buttocks 12/18/23 00:29 Consult to Physician Routine Comment: Consulting Provider: Latosha Del Angel call taker/MD group to consult: Mer Reason for consultation: garner placement Has provider been notified: Yes 12/19/23 Consult to Physician Routine Comment: Dr has been informed of the consult Consulting Provider: Flo Pike call taker/MD group to consult: general surgery Reason for consultation: c/f septic arthritis involving the pubic symphysis with an adjacent 6.1 cm Has provider been notified: Yes 12/19/23 18:56 Consult to Physician Routine Comment: Consulting Provider: Jeremias Cruz call taker/MD group to consult: icu nursery technician Reason for consultation: hypotension Has provider been notified: Yes 12/21/23 Consult to Physician Routine Comment: spoke with Dr. Mcadams @[phone](,) Consulting Provider: Alex Mcadams call taker/ group to consult: Nephrology Reason for consultation: JAYESH Has provider been notified: Yes Attending physician on discharge: Zaira Hendricks Discharging clinician: Zaira Hendricks Anticipated date of transfer: 12/24/23 DS: Admitting Diagnosis Discharge Date December 24, 2023 Admitting Diagnosis Altered mental status DS: Discharge Diagnosis Discharge Diagnosis (1) Septic arthritis of pelvic region: Code(s): M00.9 - Pyogenic arthritis, unspecified Status: Acute (2) Sepsis: Code(s): A41.9 - Sepsis, unspecified organism Status: Acute (3) Chronic indwelling Garner catheter: Code(s): Z97.8 - Presence of other specified devices Status: Acute (4) UTI (urinary tract infection): Code(s): N39.0 - Urinary tract infection, site not specified Status: Acute (5) Fever: Code(s): R50.9 - Fever, unspecified Status: Acute (6) Morbidly obese: Code(s): E66.01 - Morbid (severe) obesity due to excess calories Status: Acute (7) Acute anoxic encephalopathy: Code(s): G93.1 - Anoxic brain damage, not elsewhere classified Status: Acute Transfer Discharge Sum: Med Medications Active and Home Medications: Home Medications furosemide 20 mg tablet 40 mg PO BID 01/18/22 [History Confirmed 12/17/23] albuterol sulfate 90 mcg/actuation aerosol inhaler 2 puff inhalation Q4H PRN Shortness Of Breath 04/22/22 [History Confirmed 12/17/23] famotidine 20 mg tablet (Pepcid) 20 mg PO DAILY 04/22/22 [History Confirmed 12/17/23] lisinopril 20 mg tablet 20 mg PO DAILY 04/22/22 [History Confirmed 12/17/23] tolnaftate 1 % topical powder 1 applic topical Q12HR #45 grams 04/29/22 [Rx Confirmed 12/17/23] gabapentin 300 mg capsule 300 mg PO TID 09/21/22 [History Confirmed 12/17/23] levetiracetam 500 mg tablet 500 mg PO BID 10/15/22 [History Confirmed 12/17/23] bisacodyl 10 mg rectal suppository 10 mg RECTAL DAILY PRN Constipation 12/18/22 [History Confirmed 12/17/23] insulin glargine 100 unit/mL (3 mL) subcutaneous pen (Lantus Solostar U-100 Insulin) 15 unit subcut QPM 12/18/22 [History Confirmed 12/17/23] polyethylene glycol 3350 17 gram oral powder packet 17 g PO DAILY PRN Constipation 12/18/22 [History Confirmed 12/17/23] insulin lispro 100 unit/mL subcutaneous solution 7 unit subcut TIDWM 04/04/23 [History Confirmed 12/17/23] trazodone 50 mg tablet 100 mg PO HS 04/04/23 [History Confirmed 12/17/23] docusate sodium 100 mg capsule 100 mg PO DAILY Constipation #10 caps 04/09/23 [Rx Confirmed 12/17/23] metoprolol tartrate 25 mg tablet 12.5 mg PO Q12H #1 tablet 04/09/23 [Rx Confirmed 12/17/23] promethazine 25 mg rectal suppository 25 mg RECTAL Q8H PRN nausea and vomitting 05/04/23
[2023-12-24 12:00] VITALS: PULSE 95
[2023-12-24] MEDS: levETIRAcetam 500 MG TABLET PO (14:00)
--- NOTE | 2023-12-24 14:14 | PC.NURSE ---
Pt discharged to [facility] hospital. ICU Room 430. Report given to TYRELL Santiago @ 1200. Pt sent with PICC line and Jenkins catheter in place. Brigida Marquez, sister/POA, notified of transfer
== END 2023-12-24 14:14 | disposition short-term general hospital (02) | DRG 720 ==
LOC: ANHED 12:48 → ANH3MEDSUR 18:48 → ANH2MED 19:50 → ANHICU 12-19 19:10 → ANHIMU 12-21 15:54
PROVIDERS: Internal Medicine; Internal Medicine Nephrology; Admitting Provider Hospitalist; Emergency Provider Emergency Medicine; PCP Internal Medicine; Visit Provider General Practice
DX: A41.9 Sepsis, unspecified organism (principal); R65.21 Severe sepsis with septic shock; L03.311 Cellulitis of abdominal wall; L02.214 Cutaneous abscess of groin; M00.9 Pyogenic arthritis, unspecified; E66.01 Morbid (severe) obesity due to excess calories; T83.511A Infection and inflammatory reaction due to indwelling urethral catheter, initial encounter; N39.0 Urinary tract infection, site not specified; N18.31 Chronic kidney disease, stage 3a; G93.41 Metabolic encephalopathy; N17.9 Acute kidney failure, unspecified; G47.33 Obstructive sleep apnea (adult) (pediatric); I50.32 Chronic diastolic (congestive) heart failure; G40.909 Epilepsy, unspecified, not intractable, without status epilepticus; K21.9 Gastro-esophageal reflux disease without esophagitis; E11.42 Type 2 diabetes mellitus with diabetic polyneuropathy; Z68.41 Body mass index [BMI] 40.0-44.9, adult; J96.01 Acute respiratory failure with hypoxia; D50.9 Iron deficiency anemia, unspecified; F31.9 Bipolar disorder, unspecified; I13.0 Hypertensive heart and chronic kidney disease with heart failure and stage 1 through stage 4 chronic kidney disease, or unspecified chronic kidney disease; E11.22 Type 2 diabetes mellitus with diabetic chronic kidney disease; E78.5 Hyperlipidemia, unspecified; J44.9 Chronic obstructive pulmonary disease, unspecified; L30.9 Dermatitis, unspecified; Z20.822 Contact with and (suspected) exposure to COVID-19; E87.5 Hyperkalemia; Z86.718 Personal history of other venous thrombosis and embolism; Z95.0 Presence of cardiac pacemaker; Z74.01 Bed confinement status; Z79.01 Long term (current) use of anticoagulants; Z86.711 Personal history of pulmonary embolism; Z96.653 Presence of artificial knee joint, bilateral; Z90.49 Acquired absence of other specified parts of digestive tract; Z87.891 Personal history of nicotine dependence; E66.9 Obesity, unspecified; Z68.42 Body mass index [BMI] 45.0-49.9, adult
CPT/HCPCS: 36415; 36430; 36569; 36600; 70450; 71045; 71260; 71275; 73620; 74177; 75989; 80053; 80177; 80202; 80307; 81001; 81050; 82140; 82375; 82550; 82570; 82805; 82948; 83050; 83605; 83735; 83880; 84145; 84156; 84300; 84443; 84484; 85025; 85027; 85380; 85610; 85730; 85999; 86850; 86900; 86901; 86923; 87040; 87086; 87088; 87637; 87641; 93005; 93970; 96361; 96365; 99285; C1752; A9270; C1729; C1751; C1769; C9113; G0378; G0379; J0692; J0696; J1650; J1815; J1836; J2060; J2248; J2270; J2371; J2919; J3370; J7030; J7040; J7050; J7060; P9016; P9045; P9047; Q9967